=== PATIENT | female | born 1980 | race Caucasian/White ===

== ENCOUNTER 2023-01-17 06:38 | Outpatient (OUT) | payer BC, SELFPAY ==
--- NOTE | 2023-01-17 | PCN_ITS ---
CARDIAC STRESS TEST Requesting Physician:? Procedure Date:? 01/17/2023 This was a treadmill stress test with myocardial perfusion imaging performed at the [facility] on 01/17/2023. Informed consent was obtained.? The patient was attached to electrographic monitoring.? An intravenous line was secured.? The patient exercised according to the Jose F protocol for 6 minutes and 30 seconds, and reached stage 2 of the protocol and achieved 7 METS.? Resting heart rate was 75 BPM with resting blood pressure of 118/82.? Peak heart rate was 153 BPM and peak blood pressure was 140/86.? The heart rate represented 85% of maximum predicted heart rate.? Exercise test was stopped due to dyspnea.? Resting ECG showed normal sinus rhythm.? ECG during treadmill exercise showed sinus tachycardia with no ischemic ST changes.? ECG at the end of the recovery period showed evidence of normal sinus rhythm without ischemic ST changes. SUMMARY OF FINDINGS:? 1.? Negative treadmill exercise stress test for exercise induced ischemic ECG changes.? 2.? Normal resting blood pressure with appropriate response to exercise. 3.? 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 4.? Myocardial perfusion images will be reported separately. CHRISTOPHERD
--- NOTE | 2023-01-17 06:20 | NM_ITS ---
Patient: KAILA OTOOLE Exam Date: 01/17/2023 : 1980 Gender:F Ordering : Vishal Zarate Admission #: [id number] Family : DR. LEON WILSON . Order #: [id number] CLICK HERE TO VIEW EXAM RADIOLOGY REPORT PROCEDURE: NM STUART PERF SPECT REST STR COMPARISON: None. INDICATIONS: Shortness of breath TECHNIQUE: Exam Description: Stress/Rest one day protocol gated SPECT Rest Imagin.3 mCi Tc-99m Cardiolite IV on 01/17/2023 Stress Imaging 30.5 mCi Tc-99m Cardiolite IV on 01/17/2023 Exercise Protocol: Jose F Heart Rate (bpm): Rest: 75 Max: 153 PMHR: 85 Blood Pressure: Rest: 118/82 Max: 140/86 Symptoms: Rest and peak stress ECG findings were pending and the exercise portion of the study was pending per attending physician Dr. GREY . For more details please see separate cardiac stress test report. FINDINGS: QUALITY OF STUDY: Excellent. PERFUSION DEFECT: LOCATION: Basal anterior. Mid-anterior. SIZE: Small (1-2 segments). SEVERITY: Mild. TYPE: Persistent. WALL MOTION: Normal. LV SIZE: Normal. 76 mL. TID / TCD: None; 0.8 LVEF: Normal. Calculated EF 72%. SUMMARY: Myocardial perfusion imaging study has ABNORMAL findings. CONCLUSION: 1. No acute or reversible ischemia. 2. Anterior wall mild anterior soft tissue attenuation artifact versus fixed ischemia. Artifact from anterior soft tissue is suspected. 3. Normal wall motion, left ventricle volume, and ejection fraction. Dictated by: Gus Michaud M.D. on 01/18/2023 at 11:47 Approved by: Gus Michaud M.D. on 01/18/2023 at 11:52
== END 2023-01-17 06:39 ==
LOC: NM 06:38
PROVIDERS: PCP Family Medicine; Visit Provider Internal Medicine Cardiovascular Disease
DX: R06.02 Shortness of breath (principal)
CPT/HCPCS: 78452; 93017; A9500

== ENCOUNTER 2023-01-18 16:02 | Outpatient (OUT) | payer BC, SELFPAY ==
[2023-01-18 13:14] LABS: Hemoglobin 13.3 g/dL (12.0-16.0)
--- NOTE | 2023-01-18 14:32 | RT_ITS ---
The [facility] Test Date: 2023-01-18 Pat Name: Jeanette Vasquez Department: Room: - Gender: Female Cadence Specialists: Leno Mercedes RRT : 1980 Requested By: Slick Valdez Order Number: [id number] Reading MD: Slick Valdez Interpretive Statements Pulmonary function testing was completed according to ATS criteria. Findings were considered accurate and reproducible. No bronchodilator was administered due to normal spirometric values. No prior studies available for comparison. Spirometry: -FEV1/FVC: Normal @ 90% -FEV1: Normal @ 115% -FVC: Normal @ 105% Lung volumes by plethysmography: -RV: Normal @ 113% -TLC: Normal @ 112% Diffusion capacity: -DLCO: Normal @ 110% when corrected for Hb 13.3g/dL Flow-volume loop: -Normal shape Impressions: -Normal PFT. Clinical correlation required. Electronically Signed On 01-19-2023 10:45:49 EDT by Slick Valdez
== END 2023-01-18 16:03 ==
LOC: CARD 16:03
PROVIDERS: PCP Family Medicine; Visit Provider Internal Medicine
DX: R06.02 Shortness of breath (principal)
CPT/HCPCS: 36415; 83036; 85018; 94010; 94726; 94729

== ENCOUNTER 2023-02-23 20:01 | Outpatient (OUT) | payer BC, SELFPAY | END 2023-02-23 20:02 | disposition home or self-care (01) | LOC: SLEEP 20:02 | PROVIDERS: PCP Internal Medicine; Visit Provider Internal Medicine | DX: G47.33 Obstructive sleep apnea (adult) (pediatric) (principal); G47.11 Idiopathic hypersomnia with long sleep time; G47.61 Periodic limb movement disorder | CPT/HCPCS: 95811 ==

== ENCOUNTER 2023-10-25 20:12 | Outpatient (REF) | payer BC, SELFPAY ==
[2023-10-28 14:10] LABS: Age Gdln ACOG Testing Note (.); HPV Aptima Negative (Negative); IGP, Aptima HPV, rfx 16/18,45 Note (.)
== END 2023-10-25 20:13 | disposition home or self-care (01) ==
LOC: LAB 20:12
PROVIDERS: Visit Provider Obstetrics & Gynecology
DX: Z01.419 Encounter for gynecological examination (general) (routine) without abnormal findings (principal)
CPT/HCPCS: 87624; G0145

== ENCOUNTER 2023-12-19 13:48 | Outpatient (OUT) | payer BC, SELFPAY ==
--- NOTE | 2023-12-19 13:54 | XR_ITS ---
The [address] [address] Patient Name: KAILA OTOOLE MRN: [id number] date: 1980 Sex: F Assigned Patient Location: [facility] Current Patient Location: LAB Accession/Order Number: [id number] Exam Date: 12/19/2023 14:03 Report Date: 12/20/2023 06:50 At the request of: YE RODRIGUEZ Procedure: XR lumbar spine min 4V EXAMINATION: XR lumbar spine min 4V HISTORY: Low Back Pain With Sciatica M54.40 COMPARISON: No relevant comparison available. FINDINGS: BONES: Moderate degenerative facet arthropathy on the right at L5-S1. Normal height and alignment of vertebral bodies; no fracture spondylolisthesis. DISC SPACES: Slight narrowing L5-S1. PARASPINOUS: Negative. No paraspinous abnormality is seen. OTHER: Negative. XR/XR lumbar spine min 4V IMPRESSION: 1. L5-S1 mild degenerative disc disease and moderate degenerative facet arthropathy, right greater than left. Electronically authenticated by: TAMIE GUILLERMO Date: 12/20/2023 06:50
== END 2023-12-19 13:49 | disposition home or self-care (01) ==
LOC: RAD 13:49
PROVIDERS: PCP Family Medicine; Visit Provider Nurse Practitioner
DX: M54.40 Lumbago with sciatica, unspecified side (principal); M51.36 Other intervertebral disc degeneration, lumbar region
CPT/HCPCS: 72110

== ENCOUNTER 2023-12-20 06:47 | Outpatient (OUT) | payer BC, SELFPAY ==
--- OUTSIDE RECORDS SUMMARY | 2023-12-20 06:51 | XMS_ITS | CCD ---
Author Organization [facility] Care Team Providers Care Type Copyist Name Role Phone MERT LAMA Referring Unavailable PAMELLA BRENNAN Attending Unavailable MIKAPAMELLA Joyner Surgeon Unavailable MIKAPAMELLA Joyner Admitting Unavailable IN Procedure Practitioner Unavailab MERT Caban Primary Care Unavailable MERT LAMA Referring Unavailable NELLY ORNELAS Admitting Unavailable NELLY ORNELAS Attending Unavailable MERT LAMA Primary Care Unavailable MERT LAMA Primary Care Unavailable JONNY FOWLER Admitting Unavailable JONNY FOWLER Attending Unavailable MERT LAMA Referring Unavailable LAMA, MERT Referring Unavailable MERT LAMA Primary Care Unavailable VISHAL ROGERS Admitting Unavailable VISHAL ROGERS Attending Unavailable MERT LAMA Primary Care Physician Mert Lama MD Unavailable DANIEL, DR MERT Forrest Primary Care Unavailable DANIEL, DR MERT Forrest Consulting Unavailable DANIEL, DR MERT Forrest Attending Unavailable LAMA, DR MERT Forrest Admitting Unavailable BETTY MORALES Consulting Unavailable DANIEL, DR MERT Forrest Primary Care Unavailable LAMA, DR MERT Forrest Attending Unavailable DANIEL, DR MERT Forrest Admitting Unavailable LAMA, DR MERT Forrest Consulting Unavailable JOHNSON PARK Admitting Unavailable DANIEL, DR MERT Forrest Primary Care Unavailable ELENA GUAN Consulting Unavailable JOHNSON PARK Attending Unavailable PAL WETZEL Consulting Unavailable NILL, DR CAN Attending Unavailable NILL, DR CAN Admitting Unavailable DANIEL, DR MERT Forrest Primary Care Unavailable NILL, DR CAN Consulting Unavailable AGMEHRDADOSILEON Baez Consulting Unavailable JAMILA PINEDO Consulting Unavailable DANIEL, DR MERT Forrest Admitting Unavailable DANIEL, DR MERT Forrest Primary Care Unavailable DANIEL, DR MERT Forrest Attending Unavailable LAMA, DR MERT Forrest Admitting Unavailable DANIEL, DR MERT Forrest Primary Care Unavailable DANIEL, DR MERT Forrest Consulting Unavailable DANIEL, DR MERT Forrest Attending Unavailable ELENA GUAN Consulting Unavailable LAMA, DR MERT Forrest Primary Care Unavailable HAY, DR RUVALCABA Attending Unavailable HAY, DR RUVALCABA Admitting Unavailable BROWN, LEEANNE Consulting Unavailable HAY, DR RUVALCABA Attending Unavailable HAY, DR RUVALCABA Admitting Unavailable LAMA, DR MERT Forrest Primary Care Unavailable HAY, DR RUVALCABA Consulting Unavailable LAMA, DR MERT Forrest Admitting Unavailable LAMA, DR MERT Forrest Primary Care Unavailable LAMA, DR MERT Forrest Consulting Unavailable LAMA, DR MERT Forrest Attending Unavailable ZIEBER, DR TAMIE Felipe Consulting Unavailable JENNIFER, WM Admitting Unavailable LAMA, DR MERT Forrest Primary Care Unavailable JENNIFER, WM Consulting Unavailable JENNIFER, WM Attending Unavailable JENNIFER, WM Admitting Unavailable LAMA, DR MERT Forrest Primary Care Unavailable JENNIFER, WM Consulting Unavailable JENNIFER, WM Attending Unavailable JENNIFER, WM Attending Unavailable JENNIFER, WM Consulting Unavailable LAMA, DR MERT Forrest Primary Care Unavailable JENNIFER, WM Admitting Unavailable MEE, ANU Attending Unavailable MEE, ANU Admitting Unavailable LAMA, DR MERT Forrest Primary Care Unavailable MEE, ANU Consulting Unavailable JENNIFER, WM Admitting Unavailable JENNIFER, WM Consulting Unavailable LAMA, DR MERT Forrest Primary Care Unavailable JENNIFER, WM Attending Unavailable LAMA, DR MERT Forrest Primary Care Unavailable HEMEYER, DR NEGRETE Attending Unavailable HEMEYER, DR NEGRETE Admitting Unavailable HEMEYER, DR NEGRETE Consulting Unavailable POULTON, GLENROY Referring Unavailable POULTON, GLENROY Referring Unavailable POULTON, GLENROY Referring Unavailable POULTON, GLENROY Attending Unavailable POULTON, GLENROY Referring Unavailable POULTON, GLENROY Referring Unavailable POULTON, GLENROY Referring Unavailable SYJANELL Attending Unavailable MAURI CHUN Attending Unavailable POULTON, GLENROY Referring Unavailable LAMA, MERT Forrest Attending Unavailable IRMA HALEY Attending Unavailable IRMA HALEY Attending Unavailable ADIN LIM Attending Unavailable VISHAL ROGERS Referring Unavailable VISHAL ROGERS Attending Unavailable VISHAL ROGERS Referring Unavailable Medications Current Medications Medication Drug Class(es) Dates Sig (Normalized) Sig (Original) iv contrast (will be provided with radiology test) (2 sources) Start: 08-16-2022 End: 08-17-2022 iv contrast (will be provided with radiology test) MRI CSP Inject, intravenously, once for 1 dose. No IV access, insert saline lock prior to the beginning of sedation, infusion, injection of imaging exam. Discontinue saline lock post exam. If Pt. has a central line or IVAD, may access for administration according to line specific nursing protocol. Once exam is complete flush line and de-access according to line specific nursing protocol in the MR contrast administration guidelines link. 1 Each 0 08/16/2022 08/17/2022 Active Start: 07-07-2022 End: 07-08-2022 inject 1 dose intravenously once iv contrast (will be provided with radiology test) MRI Brain Inject, intravenously, once for 1 dose.No IV access, insert saline lock prior to beginning of sedation, infusion, injection of imaging exam.Discontinue saline lock post exam. If Pt. has a central line or IVAD, may access for administration according to line specific nursing protocol.Once exam is complete flush line and de-access according to line specific nursing protocol in the MR contrast administration guidelines link 1 Each 0 07/07/2022 07/08/2022 Active Comment on above: MRI Brain Inject, in travenously, once for 1 dose.No IV access, insert saline lock prior to beginning of sedation, infusion, injection of imaging exam.Discontinue saline lock post exam. If Pt. has a central line or IVAD, may access for administration according to line specific nursing protocol.Once exam is complete flush line and de-access according to line specific nursing protocol in the MR contrast administration guidelines link MRI CSP Inject, intr avenously, once for 1 dose. No IV access, insert saline lock prior to the beginning of sedation, infusion, injection of imaging exam. Discontinue saline lock post exam. If Pt. has a central line or IVAD, may access for administration according to line specific nursing protocol. Once exam is complete flush line and de-access according to line specific nursing protocol in the MR contrast administration guidelines link. meloxicam 7.5 mg oral tablet (1 source) Nonsteroidal Anti-inflammatory Drug Start: 10-10-19 21 take 1 mg by mouth once daily meloxicam 7.5 mg oral tablet mg tab(s), Oral, Daily, Refills(s) 0 Start Date: 10/09/20 Status: Ordered metoprolol tartrate 25 mg oral tablet (9 sources) beta-Adrenergic Norbert Start: 11-27-19 22 take 2 tablets by mouth twice daily Metoprolol tartrate 25 mg Tab 50 mg = 2 tab(s), Oral, BID, Refills(s) 0 Start Date: 11/26/21 Status: Ordered End: 08-24-2022 take 1 tablet by mouth twice daily metoprolol tartrate, short acting, (LOPRESSOR) 50 mg tablet Take 50 mg by mouth twice daily. 0 08/24/2022 Discontinued Comment on above: metoprolol tartrate 50 mg tablet Take 50 mg by mouth twice daily. perflutren lipid microspheres 1.3 mL in NaCl (PF) 0.9% 10 mL injection (DEFINITY) (10 sources) Start: 07-07-20 End: 10-06-19 perflutren lipid microspheres 1.3 mL in NaCl (PF) 0.9% 10 mL injection (DEFINITY) QUEtiapine 25 mg oral tablet (1 source) Atypical Antipsychotic Start: 10-10-19 take 1 tablet by mouth at bedtime quetiapine 25 mg Tab 25 mg = 1 tab(s), Oral, Bedtime, Refills(s) 0 Start Date: 10/09/20 Status: Ordered 125 ml sodium chloride 9 mg/ml prefilled syringe (10 sources) Start: 07-07-20 End: 10-06-19 sodium chloride 0.9 % (flush) 10 mL (BD POSIFLUSH) Completed/Discontinued Medications Medication Drug Class(es) Dates Sig (Normalized) Sig (Original) aspirin 325 mg oral tablet (3 sources) Platelet Aggregation Inhibitor, Nonsteroidal Anti-inflammatory Drug take 1 tablet by mouth once daily aspirin 325 mg tablet Take 325 mg by mouth once daily. 0 Active Comment on above: Take 325 mg by mouth once daily. cholecalciferol 0.025 mg oral tablet (3 sources) Vitamin D take 1 tablet by mouth once daily cholecalciferol (VITAMIN D) 1,000 unit tab tablet Take 1,000 Units by mouth once daily. 0 Active Comment on above: Take 1,000 Units by mouth once daily. 24 hr dilTIAZem hydrochloride 180 mg extended release oral capsule (3 sources) Calcium Channel Norbert Start: 08-24-2022 take 1 capsule by mouth once daily dilTIAZem CD (CARDIZEM CD) 180 mg 24 hr capsule Take 1 capsule by mouth once daily. 90 capsule 3 08/24/2022 Active Comment on above: Take 1 capsule by bhargavi acevedo once daily. Problems Active Problems Problem Classification Problem Date Documented Date Episodic/Chronic Blindness and vision defects (3 sources) Eye / vision finding; Translations: [Unspecified visual disturbance] Onset: 09-09-2022 Episodic Cardiac dysrhythmias (8 sources) Supraventricular tachycardia; Translations: [Supraventricular tachycardia] Onset: 11-14-2021 Chronic Conditions associated with dizziness or vertigo (13 sources) Dizziness; Translations: [Dizziness and giddiness] Onset: 03-22-2022 Episodic Conduction disorders (2 sources) Encounter for adjustment and management of automatic implantable cardiac defibrillator; Translations: [Encounter for adjustment and management of automatic implantable cardiac defibrillator] Onset: 12-15-2022 Chronic Deficiency and other anemia (1 source) Anemia 11-26-2021 Episodic Fluid and electrolyte disorders (1 source) Hypokalemia; Translations: [HYPOKALEMIA] Onset: 09-06-2022 Episodic Genitourinary symptoms and ill-defined conditions (1 source) Incontinence 11-04-2020 Chronic Headache; including migraine (3 sources) Migraine; Translations: [Migraine aura without headache ] 11-26-2021 Chronic Headache; including migraine (2 sources) Headache; Translations: [Headaches] Episodic Headache; including migraine (1 source) Headache; including migraine; Translations: [HEADACHE UNSPECIFIED] Onset: 03-24-2022 Malaise and fatigue (10 sources) Fatigue; Translations: [Chronic fatigue, unspecified] Onset: 04-14-2022 Chronic Nutritional deficiencies (5 sources) Vitamin D deficiency; Translations: [Vitamin D deficiency, unspecified] Onset: 04-21-2022 Chronic Osteoarthritis (1 source) Unspecified osteoarthritis, unspecified site; Translations: [UNSPECIFIED OSTEOARTHRITIS UNS SITE] Onset: 04-21-2022 Chronic Other aftercare (1 source) Other partner manager (current) drug therapy; Translations: [OTH NETWORK PROGRAM MANAGER CURRENT DRUG THERAPY] Onset: 09-06-2022 Episodic Other connective tissue disease (1 source) Fibromyalgia 11-26-2021 Episodic Other connective tissue disease (1 source) Foot pain 10-09-2020 Episodic Other connective tissue disease (1 source) Plantar fasciitis 10-09-2020 Episodic Other nervous system disorders (1 source) Disorder of autonomic nervous system 11-26-2021 Chronic Other nervous system disorders (2 sources) Skin sensation disturbance; Translations: [Unspecified disturbances of skin sensation] Episodic Other nervous system disorders (1 source) Unspecified disturbances of skin sensation; Translations: [Disturbance of skin sensation] Onset: 09-09-2022 Episodic Other non-traumatic joint disorders (1 source) Other specified arthritis, unspecified site; Translations: [OTHER SPECIFIED ARTHRITIS UNS SITE] Onset: 11-26-2021 Chronic Other non-traumatic joint disorders (1 source) Instability of joint of right ankle 10-09-2020 Episodic Other nutritional; endocrine; and metabolic disorders (6 sources) Body mass index 40+ - severely obese; Translations: [Body mass index (BMI) 40.0-44.9, adult] Onset: 12-09-2021 Chronic Other nutritional; endocrine; and metabolic disorders (1 source) Weight gain 10-09-2020 Episodic Other skin disorders (1 source) Loss of hair 10-09-2020 Episodic Residual codes; unclassified (4 sources) Obstructive sleep apnea syndrome; Translations: [Obstructive sleep apnea (adult) (pediatric)] Onset: 08-24-2022 Chronic Residual codes; unclassified (4 sources) Obstructive sleep apnea (adult) (pediatric); Translations: [OBSTRUCTIVE SLEEP APNEA] Onset: 06-14-2022 Chronic Residual codes; unclassified (1 source) Flushing 10-09-2020 Episodic Residual codes; unclassified (1 source) Sleep disorder 11-26-2021 Episodic Residual codes; unclassified (1 source) Acquired absence of both cervix and uterus; Translations: [ACQUIRED ABSENCE BOTH CERVIX AND UTERUS] Onset: 09-06-2022 Episodic Spondylosis; intervertebral disc disorders; other back problems (3 sources) Spondylosis, unspecified; Translations: [Other intervertebral disc degeneration, lumbosacral region] Onset: 11-23-2021 Chronic Spondylosis; intervertebral disc disorders; other back problems (6 sources) Chronic low back pain; Translations: [Neck pain] Onset: 11-23-2021 11-26-2021 Episodic Unclassified (4 sources) CONTACT W/AND (SUSP) EXPOS COVID-19; Translations: [CONTACT W/AND (SUSP) EXPOS COVID-19] Onset: 11-18-2021 Unclassified (1 source) PERSONAL HISTORY OF COVID-19; Translations: [PERSONAL HISTORY OF COVID-19] Onset: 03-24-2022 Unclassified (1 source) COUGH, UNSPECIFIED; Translations: [COUGH, UNSPECIFIED] Onset: 03-17-2022 Unclassified (3 sources) LOW BACK PAIN, UNSPECIFIED; Translations: [LOW BACK PAIN, UNSPECIFIED] Onset: 02-03-2022 Viral infection (4 sources) COVID-19; Translations: [COVID-19] Onset: 03-16-2022 Past or Other Problems Problem Classification Problem Date Documented Da te Episodic/Chronic Abdominal pain (1 source) Lower abdominal pain, unspecified; Translations: [LOWER ABDOMINAL PAIN UNSPECIFIED] Onset: 01-06-2022 Episodic Anal and rectal conditions (1 source) Other specified diseases of anus and rectum; Translations: [OTHER SPEC DISEASES ANUS AND RECTUM] Onset: 01-06-2022 Episodic Calculus of urinary tract (2 sources) History of calculus of kidney; Translations: [Personal history of urinary calculi] Onset: 01-06-2022 11-04-2020 Episodic Cardiac dysrhythmias (14 sources) Sinus tachycardia; Translations: [Palpitations] Onset: 07-07-2022 11-26-2021 Episodic Deficiency and other anemia (4 sources) Anemia, unspecified; Translations: [ANEMIA UNSPECIFIED] Onset: 11-25-2021 Episodic Gastrointestinal hemorrhage (8 sources) Melena; Translations: [Melena] Onset: 12-09-2021 Episodic Genitourinary symptoms and ill-defined conditions (4 sources) History of recurrent urinary tract infection; Translations: [Nocturia] Onset: 01-06-2022 11-04-2020 Episodic Other connective tissue disease (1 source) Fibromyalgia; Translations: [FIBROMYALGIA] Onset: 01-06-2022 Episodic Other nutritional; endocrine; and metabolic disorders (1 source) Abnormal weight gain; Translations: [ABNORMAL WEIGHT GAIN] Onset: 04-21-2022 Episodic Pleurisy; pneumothorax; pulmonary collapse (1 source) Atelectasis; Translations: [ATELECTASIS] Onset: 03-17-2022 Episodic Residual codes; unclassified (1 source) Family history of other endocrine, nutritional and metabolic diseases; Translations: [FAM HX OTH ENDOCRN NUTRIT METAB DZ] Onset: 04-21-2022 Episodic Residual codes; unclassified (1 source) Acquired absence of other specified parts of digestive tract; Translations: [ACQ ABSENCE OTH PART DIGESTV TRACT] Onset: 01-06-2022 Episodic Unclassified (1 source) CONTACT W/AND (SUSP) EXPOS COVID-19; Translations: [CONTACT W/AND (SUSP) EXPOS COVID-19] Onset: 07-29-2022 Unclassified (1 source) LOW BACK PAIN, UNSPECIFIED; Translations: [LOW BACK PAIN, UNSPECIFIED] Onset: 01-31-2022 Results Test Name Value Interpretation Reference Range Facility Consultation Noteon 02-15-20 Consultation Note [id number] .00CD:127 [facility] Consultation Noteon 02-05-20 Consultation Note [id number] .00CD:127 [facility] Comment on above: Other Comment: INCOM PLETE FAX.NDW [facility] 02-02-2023 Forms [id number] .00CD:127 [facility] Consultation Noteon 01-29-20 Consultation Note [id number]. 00CD:127 [facility] 36on 01-18-2023 36 Please call this patient and get her scheduled for a follow up in midway! Normal [facility] Cardiovascular Reporton 01-06 Cardiovascular Report [id number] .[id number]:127 [facility] Orders Onlyon 12-22-2022 Orders Only [id number] Bacilio Vasquez y N 1980 F Date Provider Department Center 12/22/2022 ANJEL LUDWIG [facility] No family history on file [facility] Telemedicineon 12-21-2022 Telemedicine [id number] Bacilio Vasquez y N 1980 F Date Provider Department Center 12/21/2022 VISHAL VERDUGO [facility] CARD [place] Count No family history on file Level of Service:31527 IN PHYS/QHP TELEPHONE EVALUATION 11-20 MIN Normal [facility] Office Visiton 12-15-2022 Follow-up visit [id number] Bacilio Vasquez 1980 F Date Provider Department Center 12/15/2022 1596-ADIN LIM CARD [facility] No family history on file Level of Service:28778 IN OFFICE/OUTPATIENT ESTABLISHED LOW MDM 20-29 MIN Normal [facility] 10-29-2022 Forms [id number] .00CD:127 Normal [facility] Ambulatory Visit Summaryon 0 10-26-2022 Ambulatory Visit Summary KAILA VASQUEZ :1980 Visit Date:10/26/2022 Ambulatory Visit Instructions Your Diagnosis BMI 40.0-44.9, adult Your Care Team Attending Physician - MERT LAMA MD Primary Care Physician - MERT LAMA MD This Is Your Medications List albuterol (Albuterol (Eqv-ProAir HFA) 90 mcg/inh inhalation aerosol) benzonatate (benzonatate 200 mg oral capsule) cholecalciferol (Vitamin D3 1000 intl units oral tablet) cyanocobalamin (cyanocobalamin 1000 mcg Tab) folic acid (folic acid 1 mg Tab) hydrOXYzine (hydrOXYzine pamoate 25 mg Cap) meloxicam (meloxicam 15 mg Tab) metoprolol (Metoprolol tartrate 50 mg Tab) quetiapine (quetiapine 25 mg Tab) sertraline (sertraline 50 mg Tab) Procedures Performed Cystourethroscopy with dilation of urethral stricture (11/04/2020), Abdominal hysterectomy, Cardiac radiofrequency ablation using ultrasound guidance, Cholecystectomy, Colonoscopy, Excision of osteochondroma, History of ankle surgery, Osteochondroma of bone, Other, Surgery, Total bilateral salpingectomy. Discharge Vitals Heart Rate (Peripheral) 76 Respiratory Rate 16 Blood Pressure 122/74 Height 165.10 cm Height 65 in Weight 116.2 kg Weight 255.64 lb BMI 42.63 Medications What How Much When Instructions Changed hydrOXYzine (hydrOXYzine pamoate 25 mg Cap) 1 Capsules By Mouth 4 times a day as needed for for anxiety Pickup at [facility] #[id number] Unchanged albuterol (Albuterol (Eqv-ProAir HFA) 90 mcg/ inh inhalation aerosol) 2 Puffs Inhalation Every 4 hours as needed for Shortness of breath or wheezing Unchanged benzonatate (benzonatate 200 mg oral capsule) 1 Capsules By Mouth Every 8 hours Unchanged cholecalciferol (Vitamin D3 1000 intl units oral tablet) 1 Tablets By Mouth Every day Unchanged cyanocobalamin (cyanocobalamin 1000 mcg Tab) 1 Tablets By Mouth Every day Unchanged folic acid (folic acid 1 mg Tab) 1 Tablets By Mouth Every day Unchanged meloxicam (meloxicam 15 mg Tab) 1 Tablets By Mouth Every day with food Unchanged metoprolol (Metoprolol tartrate 50 mg Tab) 1 Tablets By Mouth 2 times a day Unchanged quetiapine (quetiapine 25 mg Tab) 1 Tablets By Mouth At bedtime Unchanged sertraline (sertraline 50 mg Tab) 1 Tablets By Mouth Every day Pharmacy Information [facility]/pharmacy #[id number]: [address], [place] [id number] [phone] Allergies No Known Allergies Problems Ongoing - Any problem that you are currently receiving treatment for. Anemia Anxiety Autonomic dysfunction BMI 40.0-44.9, adult Chronic low back pain COVID Disorder of autonomic nervous system Dizzy spells Fibromyalgia Foot pain, bilateral Hair loss Hematochezia History of kidney stones History of recurrent UTIs Hot flashes Migraines Mixed incontinence urge and stress Nocturia Paroxysmal tachycardia Plantar fasciitis, left Rectal bleeding Right ankle instability Sinus tachycardia Sleep disorder Weight gain Historical - Any problem that you are no longer receiving treatment for. COVID-19 Fibromyalgia Headache Migraine Other Sinus tachycardia Sleep disorder Thyroid disease Normal [facility] Family Medicine Office/Clini c Noteon 10-26-2022 Family Medicine Office/Clinic Note Chief Complaint still having issues with dizziness and tachycardia HPI Staff Kaila is a 41 year old female who presents today for a follow up, still having tachycardia but still with Dr Avila [facility] and still having the dizziness says she's not gotten any answers from [facility] neurology says she's been referred to diff drs up there and it's a process getting in Recent MRI done at [facility] covid UTD Flu: UTD per patient required by her work [id number] History of Present Illness Since March of last year, severe vertigo, has seen a number of doctors and nothing seems to help. Still working with dr [place], at times heart rate up to 160-170, flushed sweating and sees the heart beating. severe anxiety and will freak her out and gets panic attacks. EP studies done in the past and had to be shocked because atrial fib during the study. Has gotten worse sincd having covid. She has a positive ESEQUIEL. CRP AND SED RATES have been normal. MRI RECENT and normal. Tilt table in past and nothing really showed up. Review of Systems PHQ Score Initial Depression Screen Score: 0 see [facility] Physical Exam Vitals & Measurements HR: 76(Peripheral) RR: 16 BP: 122/74 SpO2: 93% HT: 65 in HT: 165.10 cm WT: 116.2 kg WT: 255.64 lb BMI: 42.63 General: alert, no acute distress bp 122/70 laying, 120/70 sitting, 120/64 laying Skin: warm, dry Head: no trauma, normocephalic Neck: Trachea midline, no adenopathy, no tenderness Eye: normal conjunctiva, sclera clear ENMT: TM's clear, oral mucosa moist, no pharyngeal erythema or exudate Cardiovascular: regular rate and rhythm, normal peripheral perfusion Respiratory: Lungs CTA, respirations non labored Chest wall: no deformity. Gastrointestinal: soft, non distended, no tenderness, no guarding. Back: No tenderness, Normal ROM, Normal alignment. Extremities: no deformity, no trauma Neurological: oriented x 4, LOC appropriate for age, CN II-XII intact, motor strength equal & normal bilaterally, sensation equal & normal bilaterally, speech normal Psychiatric: cooperative, affect appropriate for age, normal judgement, normal psychiatric thoughts. Assessment/Plan Suspect she is having panic atacks. Explained this to the patient and apple it is connected to the autonomic system. she has had releive with valium and atntivan in the past but I did not like the addiction potenstial with these medicines. We will try a higher dose of the hydroxyzine and explained the risks and bernefits. Also, she will cont. with self relaxation techniques. The tachycardi seems controlle while exercisins. She will start again with walking and emeka into the cough to 5k peyman. Also, discussed ozempic for weight loss and she has no controindications. she will call with update in one month and if doing well we will try the ozempic. RTO prn explained. 1. Autonomic dysfunction (G90.9: Disorder of the autonomic nervous system, unspecified) 2. Anxiety (F41.9: Anxiety disorder, unspecified) 3. BMI 40.0-44.9, adult (Z68.41: Body mass index [BMI] 40.0-44.9, adult) Orders: hydrOXYzine, 25 mg = 1 cap(s), Oral, QID, PRN for anxiety, # 40 cap(s), Refills(s) 0, Pharmacy: [facility]/pharmacy #[id number], 165.1, cm, 10/26/22 16:06:00 EDT, Height/Length Dosing, 116.2, kg, 10/26/22 16:06:00 EDT, Weight Dosing Follow-up No qualifying data available Problem List/Past Medical History Ongoing Anemia Anxiety Autonomic dysfunction BMI 40.0-44.9, adult Disorder of autonomic nervous system Dizzy spells Fibromyalgia History of kidney stones Hot flashes Migraines Mixed incontinence urge and stress Paroxysmal tachycardia Sinus tachycardia Sleep disorder Weight gain Historical Chronic low back pain COVID COVID-19 Fibromyalgia Foot pain, bilateral Hair loss Headache Hematochezia History of recurrent UTIs Migraine Nocturia Other Plantar fasciitis, left Rectal bleeding Right ankle instability Sinus tachycardia Sleep disorder Thyroid disease Procedure/Surgical History Cystourethroscopy with dilation of urethral stricture (11/04/2020), Abdominal hysterectomy, Cardiac radiofrequency ablation using ultrasound guidance, Cholecystectomy, Colonoscopy, Excision of osteochondroma, History of ankle surgery, Osteochondroma of bone, Other, Surgery, Total bilateral salpingectomy. Medications Albuterol (Eqv-ProAir HFA) 90 mcg/inh inhalation aerosol, 2 puff(s), Inhalation, q4hr, PRN, Not taking benzonatate 200 mg oral capsule, 200 mg= 1 cap(s), Oral, q8hr, Not taking cyanocobalamin 1000 mcg Tab, 1000 mcg= 1 tab(s), Oral, Daily, Not taking folic acid 1 mg Tab, 1 mg= 1 tab(s), Oral, Daily, Not taking hydrOXYzine pamoate 25 mg Cap, 25 mg= 1 cap(s), Oral, QID, PRN meloxicam 15 mg Tab, 15 mg= 1 tab(s), Oral, Daily, Not taking Metoprolol tartrate 50 mg Tab, 50 mg= 1 tab(s), Oral, BID quetiapine 25 mg Tab, 25 mg= 1 tab(s), Oral, Bedtime sertraline 50 mg Tab, 50 mg= 1 tab(s), Oral, Daily, Not taking Vitamin D3 1000 intl un (more content not included)... Normal [facility] Comment on above: Result Comment: Elec tronically Signed By: DANIEL PIZARRO, MERT Forrest\.br\Date and Time Signed: 10/26/22 17:03 EDT MRI BRAIN WO/W IVCONon 10-14 MRI BRAIN WO/W IVCON * * *Final Report* * * DATE OF EXAM: Oct 14 2022 5:21PM QBM 0295 - MRI BRAIN WO/W IVCON / PROCEDURE REASON: multiple diagnoses * * * * Physician Interpretation * * * * EXAMINATION: MRI BRAIN WO/W IVCON, MRI CERVICAL SPINE WO/W IVCON HISTORY: Dizziness. Vision changes. TECHNIQUE: Demyelinating disease brain MRI protocol without and with contrast including diffusion and gradient echo images. Routine MRI cervical spine without and with intravenous contrast. MQ: MRBWOW_2 Contrast: 20 mL Dotarem IV COMPARISON: None. RESULT: Acute Change: There is no evidence of restricted diffusion to suggest an acute infarct. Hemorrhage: No evidence of prior parenchymal hemorrhage on the gradient echo images. Mass Lesion/ Mass Effect: No evidence of an intracranial mass or extra-axial fluid collection. No abnormal parenchymal or leptomeningeal enhancement is noted following contrast administration. No significant mass effect. Chronic Change: The white matter is within normal limits of signal intensity for age. Parenchyma: No significant volume loss for age. The brain parenchyma is otherwise within normal limits of signal intensity and morphology. Ventricles: Normal caliber and morphology. Skull Base: Hypothalamic and pituitary region are grossly normal. Craniocervical junction is normal. No significant marrow replacement process. Vasculature: Major intracranial arterial structures, and dural venous sinuses show typical flow void, suggesting patency by spin echo criteria. Other: The visualized paranasal sinuses and mastoid air cells are clear. The orbits and extracranial soft tissues are unremarkable. MRI CERVICAL SPINE RESULT: Counting reference: Craniocervical junction. Anatomic Variants: None. Localizer images: No additional findings. Alignment: Alignment is anatomic. Craniocervical junction: Craniocervical junction is normal. Cord: The visualized cord is within normal limits of signal intensity and morphology. No mass or pathologic intradural enhancement. Bone marrow signal/fracture: No evidence of pathologic marrow infiltration. No evidence of prior fracture. Cervical soft tissues: The paraspinal soft tissues are within normal limits. C2-C3: Canal and foramina are patent. C3-C4: Canal and foramina are patent. C4-C5: Disc/osteophyte complex bulge abutting cord ventrally without cord compression. Mild right foraminal stenosis. Left neural foramen is patent. C5-C6: Canal and foramina are patent. C6-C7: Canal and foramina are patent. C7-T1: Canal and foramina are patent. IMPRESSION: Unremarkable contrast-enhanced MRI brain. No acute intracranial findings. No mass or pathologic intracranial enhancement. Mild degenerative changes of the cervical spine as discussed level by level in the body of the report. No severe canal or severe foraminal stenosis. Normal morphology and signal intensity of the visualized spinal cord. No mass or pathologic intradural enhancement. [facility] Transcribe Date/Time: Oct 14 2022 8:43P Dictated by : UNIQUE ANDERSON MD This examination was interpreted and the report reviewed and electronically signed by: UNIQUE ANDERSON MD on Oct 14 2022 8:51PM EST [id number] Normal [facility] MRI CERVICAL SPINE WO/W IVCO Non 10-14-2022 MRI CERVICAL SPINE WO/W IVCON * * *Final Report* * * DATE OF EXAM: Oct 14 2022 5:21PM QBM 0298 - MRI CERVICAL SPINE WO/W IVCON / PROCEDURE REASON: multiple diagnoses * * * * Physician Interpretation * * * * EXAMINATION: MRI BRAIN WO/W IVCON, MRI CERVICAL SPINE WO/W IVCON HISTORY: Dizziness. Vision changes. TECHNIQUE: Demyelinating disease brain MRI protocol without and with contrast including diffusion and gradient echo images. Routine MRI cervical spine without and with intravenous contrast. MQ: MRBWOW_2 Contrast: 20 mL Dotarem IV COMPARISON: None. RESULT: Acute Change: There is no evidence of restricted diffusion to suggest an acute infarct. Hemorrhage: No evidence of prior parenchymal hemorrhage on the gradient echo images. Mass Lesion/ Mass Effect: No evidence of an intracranial mass or extra-axial fluid collection. No abnormal parenchymal or leptomeningeal enhancement is noted following contrast administration. No significant mass effect. Chronic Change: The white matter is within normal limits of signal intensity for age. Parenchyma: No significant volume loss for age. The brain parenchyma is otherwise within normal limits of signal intensity and morphology. Ventricles: Normal caliber and morphology. Skull Base: Hypothalamic and pituitary region are grossly normal. Craniocervical junction is normal. No significant marrow replacement process. Vasculature: Major intracranial arterial structures, and dural venous sinuses show typical flow void, suggesting patency by spin echo criteria. Other: The visualized paranasal sinuses and mastoid air cells are clear. The orbits and extracranial soft tissues are unremarkable. MRI CERVICAL SPINE RESULT: Counting reference: Craniocervical junction. Anatomic Variants: None. Localizer images: No additional findings. Alignment: Alignment is anatomic. Craniocervical junction: Craniocervical junction is normal. Cord: The visualized cord is within normal limits of signal intensity and morphology. No mass or pathologic intradural enhancement. Bone marrow signal/fracture: No evidence of pathologic marrow infiltration. No evidence of prior fracture. Cervical soft tissues: The paraspinal soft tissues are within normal limits. C2-C3: Canal and foramina are patent. C3-C4: Canal and foramina are patent. C4-C5: Disc/osteophyte complex bulge abutting cord ventrally without cord compression. Mild right foraminal stenosis. Left neural foramen is patent. C5-C6: Canal and foramina are patent. C6-C7: Canal and foramina are patent. C7-T1: Canal and foramina are patent. IMPRESSION: Unremarkable contrast-enhanced MRI brain. No acute intracranial findings. No mass or pathologic intracranial enhancement. Mild degenerative changes of the cervical spine as discussed level by level in the body of the report. No severe canal or severe foraminal stenosis. Normal morphology and signal intensity of the visualized spinal cord. No mass or pathologic intradural enhancement. 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 Christos Fallon Basophils/100 WBC (Bld) 0.5 % Normal 0.2-2.0 [facility] Comment on above: Performed By: #### C MP, TSH, HSTROPN #### [facility] [address] [place] [address] Dr. Christos Fallon EO # 0.2 103/ul Normal 0.0-0.7 [facility] Comment on above: Performed By: #### C MP, TSH, HSTROPN #### [facility] [address] [place] [address] Dr. Christos Fallon Eosinophils/100 WBC (Bld) 2.3 % Normal 0.9-7.0 [facility] Comment on above: Performed By: #### C MP, TSH, HSTROPN #### [facility] [address] [place] [address] Dr. Christos Fallon Erythrocyte distribution width (RBC) [Ratio] 13.0 % Normal 11.0-15.0 [facility] Comment on above: Performed By: #### C MP, TSH, HSTROPN #### [facility] [address] [place] [address] Dr. Christos Fallon Hematocrit (Bld) [Volume fraction] 43.0 % Normal 36.0-48.0 [facility] Comment on above: Performed By: #### C MP, TSH, HSTROPN #### [facility] [address] [place] [address] Dr. Christos Fallon Hemoglobin (Bld) [Mass/Vol] 13.9 g/dL Normal 12.0-16.0 [facility] Comment on above: Performed By: #### C MP, TSH, HSTROPN #### [facility] [address] [place] [address] Dr. Christos Fallon IG # 0.03 10e3/ul Normal 0.00-0.03 [facility] [place] Comment on above: Performed By: #### C MP, TSH, HSTROPN #### [facility] [address] [place] [address] Dr. Christos Fallon IG % 0.3 % Normal 0.0-0.5 [facility] [place] Comment on above: Performed By: #### C MP, TSH, HSTROPN #### [facility] [address] [place] [address] Dr. Christos Fallon LYMPH # 2.8 103/ul Normal 1.2-3.8 [facility] [place] Comment on above: Performed By: #### C MP, TSH, HSTROPN #### [facility] [address] [place] [address] Dr. Christos Fallon Lymphocytes/100 WBC (Bld) 29.6 % Normal 20.5-60.0 [facility] [place] Comment on above: Performed By: #### C MP, TSH, HSTROPN #### [facility] [address] [place] [address] Dr. Christos Fallon MANUAL DIFF REQ NO Normal [facility] Comment on above: Performed By: #### C MP, TSH, HSTROPN #### [facility] [address] [place] [address] Dr. Christos Fallon MCH (RBC) [Entitic mass] 34.8 pg Critically high 26.7-34.0 [facility] [place] Comment on above: Performed By: #### C MP, TSH, HSTROPN #### [facility] [address] [place] [address] Dr. Christos Fallon MCHC (RBC) [Mass/Vol] 32.3 g/dL Normal 29.9-35.2 [facility] [place] Comment on above: Performed By: #### C MP, TSH, HSTROPN #### [facility] [address] [place] [address] Dr. Christos Fallon MCV (RBC) [Entitic vol] 107.5 fL Critically high 81.0-99.0 [facility] Comment on above: Performed By: #### C MP, TSH, HSTROPN #### [facility] [address] [address] [address] Christos Fallon MONO # 0.7 103/ul Normal 0.3-0.8 [facility] Comment on above: Performed By: #### C MP, TSH, HSTROPN #### [facility] [address] [address] [address] Christos Fallon Monocytes/100 WBC (Bld) 7.7 % Normal 1.7-12.0 [facility] Comment on above: Performed By: #### C MP, TSH, HSTROPN #### [facility] [address] [place] [address] Dr. Christos Fallon NEUT # 5.7 103/ul Normal 1.4-6.5 [facility] Comment on above: Performed By: #### C MP, TSH, HSTROPN #### [facility] [address] [address] [address] Christos Fallon Neutrophils/100 WBC (Bld) 59.6 % Normal 43.0-75.0 [facility] Comment on above: Performed By: #### C MP, TSH, HSTROPN #### [facility] [address] [address] [address] Christos Fallon Platelet mean volume (Bld) [Entitic vol] 9.9 fL Normal 9.5-13.5 [facility] Comment on above: Performed By: #### C MP, TSH, HSTROPN #### [facility] [address] [address] [address] Christos Fallon PLT 309 103/ul Normal 150-450 [facility] Comment on above: Performed By: #### C MP, TSH, HSTROPN #### [facility] [address] [address] [address] Christos Fallon RBC 4.00 106/ul Critically low 4.20-5.40 [facility] Comment on above: Performed By: #### C MP, TSH, HSTROPN #### [facility] [address] [place] [address] Dr. Christos Fallon WBC 9.6 103/ul Normal 4.0-11.0 [facility] [place] Comment on above: Performed By: #### C MP, TSH, HSTROPN #### [facility] [address] [place] [address] Dr. Christos Fallon D-DIMERon 09-02-2022 D-DIMER 0.28 mg/L FEU Normal <=0.59 [facility] Comment on above: Performed By: #### C MP, TSH, HSTROPN #### [facility] [address] [place] [address] Dr. Christos Fallon D-DIMER COMMENTS SEE BELOW Normal [facility] Comment on above: Result Comment: Incr eases in D-Dimer concentration observed with thromboembolic events can be variable due to localization, size, and age of the thrombus. Therefore, a thromboembolic event cannot be diagnosed with certainty on the basis of the reference range. D-Dimers may also be elevated for a variety of disorders including: advanced age, , coronary disease, cancer, liver disease, infection, inflammation, hematoma, DIC, trauma, post-surgery, diabetes, thrombolytic or anticoagulant therapy, stress, and generalized hospitalization. Performed By: #### C MP, TSH, HSTROPN #### [facility] [address] [place] [address] Dr. Christos Fallon PROF 14(COMP METB)on 023 Albumin [Mass/Vol] 3.8 g/dL Normal 3.4-5.0 [facility] Comment on above: Performed By: #### C MP, TSH, HSTROPN #### [facility] [address] [place] [address] Dr. Christos Fallon Albumin/Globulin [Mass ratio] 1.2 {ratio} Normal [facility] [place] Comment on above: Performed By: #### C MP, TSH, HSTROPN #### [facility] [address] [place] [address] Dr. Christos Fallon ALP [Catalytic activity/Vol] 85 U/L Normal 46-116 [facility] [place] Comment on above: Performed By: #### C MP, TSH, HSTROPN #### [facility] [address] [address] [address] Christos Fallon ALT [Catalytic activity/Vol] 39 U/L Normal 14-59 [facility] Comment on above: Performed By: #### C MP, TSH, HSTROPN #### [facility] [address] [place] [address] Dr. Christos Fallon Anion gap [Moles/Vol] 16.3 mmol/L Normal Th [facility] Comment on above: Performed By: #### C MP, TSH, HSTROPN #### [facility] [address] [place] [address] Dr. Christos Fallon AST [Catalytic activity/Vol] 19 U/L Normal 15-37 [facility] Comment on above: Performed By: #### C MP, TSH, HSTROPN #### [facility] [address] [place] [address] Dr. Christos Fallon Bilirubin [Mass/Vol] 0.4 mg/dL Normal 0.2-1.0 [facility] [place] Comment on above: Performed By: #### C MP, TSH, HSTROPN #### [facility] [address] [place] [address] Dr. Christos Fallon Calcium [Mass/Vol] 9.2 mg/dL Normal 8.5-10.1 [facility] Comment on above: Performed By: #### C MP, TSH, HSTROPN #### [facility] [address] [place] [address] Dr. Christos Fallon Chloride [Moles/Vol] 101 mmol/L Normal 98-107 [facility] [place] Comment on above: Performed By: #### C MP, TSH, HSTROPN #### [facility] [address] [place] [address] Dr. Christos Fallon CO2 [Moles/Vol] 24.9 mmol/L Normal 21.0-32.0 [facility] Comment on above: Performed By: #### C MP, TSH, HSTROPN #### [facility] [address] [address] [address] Christos Fallon Creatinine [Mass/Vol] 0.83 mg/dL Normal 0.55-1.02 [facility] Comment on above: Performed By: #### C MP, TSH, HSTROPN #### [facility] [address] [place] [address] Dr. Christos Fallon EGFR-AF SRI LANKAN >60 Normal >=60 [facility] Comment on above: Performed By: #### C MP, TSH, HSTROPN #### [facility] [address] [place] [address] Dr. Christos Fallon EGFR-NON AF SRI LANKAN >60 Normal >=60 [facility] Comment on above: Performed By: #### C MP, TSH, HSTROPN #### [facility] [address] [place] [address] Dr. Christos Fallon Globulin (S) [Mass/Vol] 3.2 g/dL Normal [facility] Comment on above: Performed By: #### C MP, TSH, HSTROPN #### [facility] [address] [place] [address] Dr. Christos Fallon Glucose [Mass/Vol] 142 mg/dL Critically high 74-106 [facility] Comment on above: Performed By: #### C MP, TSH, HSTROPN #### [facility] [address] [place] [address] Dr. Christos Fallon Potassium [Moles/Vol] 3.2 mmol/L Critically low 3.5-5.1 [facility] Comment on above: Performed By: #### C MP, TSH, HSTROPN #### [facility] [address] [place] [address] Dr. Christos Fallon Protein [Mass/Vol] 7.0 g/dL Normal 6.4-8.2 [facility] Comment on above: Performed By: #### C MP, TSH, HSTROPN #### [facility] [address] [place] [address] Dr. Christos Fallon Sodium [Moles/Vol] 139 mmol/L Normal 136-145 [facility] Comment on above: Performed By: #### C MP, TSH, HSTROPN #### [facility] [address] [place] [address] Dr. Christos Fallon Urea nitrogen [Mass/Vol] 10.0 mg/dL Normal 7.0-18.0 [facility] Comment on above: Performed By: #### C MP, TSH, HSTROPN #### [facility] [address] [place] [address] Dr. Christos Fallon Urea nitrogen/Creatinine [Mass ratio] 12.0 mg/mg Normal [facility] Comment on above: Performed By: #### C MP, TSH, HSTROPN #### [facility] [address] [place] [address] Dr. Christos Fallon PROTIMEon 09-02-2022 INR Coag (PPP) [Relative time] {INR} Normal [facility] Comment on above: Performed By: #### C MP, TSH, HSTROPN #### [facility] [address] [place] [address] Dr. Christos Fallon INR GUIDELINES SEE BELOW Normal [facility] Comment on above: Result Comment: GUABLERTO RED INR: 2.0 - 3.0 CONDITIONS NOT LISTED BELOW 2.5 - 3.5 FOR PROSTHETIC HEART VALVE REPLACEMENT 2.5 - 3.5 RECURRENT THROMBOSIS Performed By: #### C MP, TSH, HSTROPN #### [facility] [address] [place] [address] Dr. Christos Fallon PT Coag (PPP) [Time] 9.7 s Normal 9.0-11.6 [facility] Comment on above: Performed By: #### C MP, TSH, HSTROPN #### [facility] [address] [place] [address] Dr. Christos Fallon PTTon 09-02-2022 aPTT Coag (Bld) [Time] 25.9 s Normal 22.3-36.2 [facility] Comment on above: Performed By: #### C MP, TSH, HSTROPN #### [facility] [address] [place], [place] [address] Dr. Christos Fallon TROPONIN, HIGH SENSITIVITYon 09-02-2022 HSTROP <4.0 Normal 4.0-51.3 [facility] Comment on above: Result Comment: CUT- OFF POINTS HAVE BEEN ESTABLISHED BASED ON THE FOURTH UNIVERSAL DEFINITIONS OF MYOCARDIAL INFARCTION. THE UPPER REFERENCE LIMIT (URL) OF TROPONIN, DEFINED THE 99TH PERCENTILE OF cTnI DISTRIBUTION IN A REFERENCE POPULATION, HAS BEEN CONFIRMED THE DECISION THRESHOLD FOR [place] DIAGNOSIS. Performed By: #### C MP, TSH, HSTROPN #### [facility] [address] [place], [place] [address] Dr. [facility]histos Fall[facility] TSH 0.813 uIU/mL Normal 0.358-3.740 [facility] Comment on above: Performed By: #### C MP, TSH, HSTROPN #### [facility] [address] [id number] Christos Fallon XR CHEST 1 Von 09-02-2022 XR CHEST 1 V EXAM: Chest x-ray HISTORY: Heart racing COMPARISON: 03/16/2022 TECHNIQUE: Single view of the chest. FINDINGS: Heart and Vascularity are unremarkable. Lungs are expanded and free of focal infiltrates. Loop recorder overlies the chest. EKG leads overlie the chest. Impression: No acute heart or lung disease identified. Electronically authenticated by: LEEANNE MON Date: 2022-09-02 15:09 Normal [facility] CNOVon 08-24-2022 CNOV Office Visit (BOOGIE ) KAILA VASQUEZ ([id number]) 1980 F Date Time Provider Department 08/24/22 2:00 PM JANELL SY During your visit today, we recorded the following information about you: Pulse Blood pressure Weight Height 88/minute 112/73 112.9 kg 1.626 m Janell Sy MD 08/24/2022 2:17 PM Signed [facility] [place] SECTION OF REGIONAL CARDIOLOGY OUTPATIENT VISIT DATE August 24, 2022 OUTPATIENT VISIT TYPE NEW PRIMARY CARE PHYSICIAN: To use this Smartlink, specify the provider ID whose address you want to display, e.g., .[email or web address][1 (where 1 is the provider ID). A written report of the findings and recommendations will be sent to the requesting provider via shared medical record or via [employer]. Patient is being seen at the request of the referring physician for Arrhythmia , Palpitations , and Shortness of breath HISTORY OF PRESENT ILLNESS: Ms. Vasquez is a 41 year old female who has a history of morbid obesity. Obstructive sleep apnea. Palpitations and SVT as well as PVCs. Also inappropriate sinus tachycardia. Anemia. Migraine headaches. Vitamin D deficiency. Fibromyalgia. Chronic neck and back pain. History of palpitations. COVID-19 infection in February 2023. [employer] loop recorder implant. Cardiac work-up includes: Echocardiogram on 05/19/2020 at [facility] showed normal ejection fraction. No valvular heart disease of any significance. A Holter monitor in 2019 showed basically some PVCs however negative otherwise. Electrophysiology study on 06/17/2021 showed a few runs of atrial tachycardia 2-3 beats. Ablation of SVT consistent with atrial tachycardia at that time. Since after her COVID-19 infection she had more episodes of tachycardia and palpitations. She mentioned that the palpitations could happen at any time. However mainly at noon time when she is sitting for lunch and in the evening when she is trying to go to sleep. She denies any chest pain of any kind however she has some dyspnea with activity. She has no orthopnea or PND. No syncope or near syncope. No lightheadedness or dizziness. No weight gain or loss. However she mentioned that she gained all her weight after hysterectomy about 6 years ago. IMPRESSION: Encounter Diagnosis ICD-10-CM 1. KANG (obstructive sleep apnea) G47.33 2. Dizziness R42 ECG COMPLETE 3. Palpitations R00.2 ECG COMPLETE 4. Obesity, morbid, BMI 40.0-49.9 ([facility]) E66.01 ECG COMPLETE 5. SVT (supraventricular tachycardia) ([facility]) I47.1 6. Chronic fatigue R53.82 7. Vitamin D deficiency E55.9 PLAN AND RECOMMENDATIONS: Tachycardia Mostly inappropriate sinus tachycardia due to patient deconditioning. She does not have any significant arrhythmias after her ablation for her SVT which happened in 2020. That was for atrial tachycardia. It seems that the beta-norbert is helping a little bit but not as much. Recently after COVID-19 infection her symptoms are worse. I would like to change her medicine to a calcium channel norbert and see if that helps better. We can increase her dose as needed. I reassured her about her findings and her symptoms. I do not think that there is anything serious going on at this point. Obstructive sleep apnea She mentioned to me that she needs more testing because her first the study did not show that she is in need for a CPAP or BiPAP machine yet. However they are looking into the issue. Obesity We had a long discussion about the need for more plant-based diet. Less animal-based products. No dairy products. All animal products are inflammatory and can increase the patient's symptoms of from fibromyalgia to fatigue syndrome to all of her issues. Might help actually also with her cardiac symptoms. REVIEW OF SYSTEMS: Chest pain No Shortness of breath Yes Bleeding No Dizziness Yes Syncope No Palpations Yes 10 systems reviewed and are negative with the exception of pertinent positives described in HPI PHYSICAL EXAMINATION: BP 112/73 (BP Site: Left Arm, BP Position: Sitting, BP Cuff Size: Large Adult) Pulse 88 Ht 162.6 cm (5' 4 ) Wt 112.9 kg (249 lb) SpO2 98% BMI 42.74 kg/m? HEENT: normocephalic, EOMI Heart: regular rhythm Lungs: clear to auscultation Abdomen: bowel sounds present Extremities: no edema Musculoskeletal: chest wall nontender Neurological: alert and oriented Psychiatric: appropriate and cooperative Skin: no rash, cellulitis or lesions appreciated CARDIOVASCULAR MEDICINE TESTING: I have personally reviewed ECG, laboratory results, outside medical records, echocardiogram report, and holter report PAST CARDIAC HISTORY: See above. PAST MEDICAL HISTORY Diagnosis Date Anemia Chronic back pain Chronic fatigue syndrome Chronic neck pain Fibromyalgia H/O cardiac radiofrequency ablation Migraines KANG (obstructive sleep apnea) Palpitatio (more content not included)... Normal [facility] ECG COMPLETEon 08-24-2022 ECG COMPLETE Ventricular Rate : 8 4 BPM Atrial Rate : 84 BPM P-R Interval : 166 ms QRS Duration : 92 ms Q-T Interval : 358 ms QTC Calculation(Bazett) : 423 ms Calculated P [place] : 60 degrees Calculated R [place] : 45 degrees Calculated T [place] : 45 degrees NORMAL SINUS RHYTHM INCREASED R/S RATIO IN V1, CONSIDER EARLY TRANSITION OR POSTERIOR INFARCT ABNORMAL ECG Confirmed by MEERA BOYD M.D. ([id number]) on 08/28/2022 3:03:10 PM NAME : KAILA VASQUEZ PID : [id number] : 1980 Gender : Female Race : ORD : [id number] Procedure Date : Aug 24 2022 13:56:02 Edit Date : Aug 28 2022 15:03:10 Diagnosis: NORMAL SINUS RHYTHM INCREASED R/S RATIO IN V1, CONSIDER EARLY TRANSITION OR POSTERIOR INFARCT ABNORMAL ECG Confirmed by MEERA BOYD M.D. ([id number]) on 08/28/2022 3:03:10 PM Test Reason : [facility] Over[facility] By : MEERA BOYD M.D. Edited By : MEERA BOYD M.D. Referred By : JANELL SY Acquired by : Jose browning [facility] CNTHERAPYon 08-12-2022 CNTHERAPY OT/PT/Speech Visit ([facility]) KAILA VASQUEZ Emily ([id number]) 1980 F Date Time Provider Department 08/12/22 2:45 PM CARMEN JOHNSON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 -centromere antibody is used as in aid in diagnosis of systemic sclerosis. Clinical correlation is required. Test Methodology: Multiplex flow immunoassay. Performed By: #### 2 9374-6, 73091-0, 05429-7, 80909-1, 71022-0, ANAIFR, 59233-8, 17519-0, 09992-7, 67576-3 ####[facility] LABCLIA [id number] [place] [address] [place] CENTROMERE AB QUAL Negative Normal Negative [facility] Comment on above: Order Comment: Bryan hernández Type: BLOOD SPECIMENOrdering Facility: [facility] Address: [address] [place] [address] Performed By: #### 2 9374-6, 31419-9, 58613-2, 92421-0, 15938-0, ANAIFR, 79277-1, 29259-0, 27338-9, 03680-4 ####[facility] LABCLIA [id number] [place] [address] [place] Chromatin Ab Qnon 07-07-2022 CHROMATIN AB QUAL Negative Normal Negative [facility] Comment on above: Order Comment: Speci men Type: BLOOD SPECIMENOrdering Facility: [facility] Address: [address] [place] [address] Performed By: #### 2 9374-6, 76665-7, 58399-8, 23219-6, 44723-8, ANAIFR, 29611-1, 00242-3, 92042-2, 21050-9 ####[facility] LABCLIA [id number] [place] [address] [place] Chromatin Ab SerPl-aCncon Chromatin Ab Qn <0.2 Normal <1.0 [facility] Comment on above: Order Comment: Speci men Type: BLOOD SPECIMENOrdering Facility: [facility] Address: [address] [place] [address] Result Comment: Test Methodology: Multiplex flow immunoassay. Performed By: #### 2 9374-6, 79741-9, 55998-8, 80405-2, 82295-9, ANAIFR, 91135-0, 90432-4, 66375-6, 58535-0 ####[facility] LABIA [id number] [place] [address] [place] KAMRAN Jo1 Ab Ser-aCncon 2021 Radha-1 extractable nuclear Ab Qn (S) <0.2 Normal <1.0 [facility] Comment on above: Order Comment: Speci men Type: BLOOD SPECIMENOrdering Facility: [facility] Address: [address] [place], [place] [address] Performed By: #### 2 9374-6, 75681-1, 59137-1, 07630-6, 55864-2, ANAIFR, 12096-9, 46443-8, 25912-3, 05290-4 ####[facility] LABCLIA [id number] [place] [address] [place] KAMRAN SENIOR RESEARCH PROJECT MANAGER Ab Ser-aCncon 2021 Ribonucleoprotein extractable nuclear Ab Qn (S) <0.2 Normal <1.0 [facility] Comment on above: Order Comment: Speci men Type: BLOOD SPECIMENOrdering Facility: [facility] Address: [address] [address] Performed By: #### 2 9374-6, 06485-6, 31715-7, 98397-9, 40852-2, ANAIFR, 43278-8, 73160-7, 87997-5, 98495-2 ####[facility] LABIA [id number] [place] [address] [place] KAMRAN SM IgG Ser-aCncon 2021 Osborne extractable nuclear IgG Qn (S) <0.2 Normal <1.0 [facility] Comment on above: Order Comment: Speci men Type: BLOOD SPECIMENOrdering Facility: [facility] Address: [address] [place] [address] Performed By: #### 2 9374-6, 95056-7, 00153-5, 77191-8, 85147-6, ANAIFR, 53417-4, 48789-4, 83042-3, 03031-2 ####[facility] LABIA [id number] [place] [address] [place] KAMRAN SS-A Ab Ser-aCncon 07-07 Sjogrens syndrome-A extractable nuclear Ab Qn (S) 0.3 AI Normal <1.0 [facility] Comment on above: Order Comment: Speci men Type: BLOOD SPECIMENOrdering Facility: [facility] Address: [address] [address] Result Comment: Test Methodology: Multiplex flow immunoassay. Performed By: #### 2 9374-6, 73163-5, 76402-3, 30999-3, 61454-6, ANAIFR, 38725-0, 34200-1, 90353-9, 08677-8 ####[facility] LABIA [id number] [place] [address] [place] KAMRAN SS-B Ab Ser-aCncon 07-07 Sjogrens syndrome-B extractable nuclear Ab Qn (S) <0.2 Normal <1.0 [facility] Comment on above: Order Comment: Bryan hernández Type: BLOOD SPECIMENOrdering Facility: [facility] Address: [address] [place] [address] Result Comment: Anti -SSB (anti-La) antibody is used as an aid in diagnosis of a variety of systemic autoimmune diseases, especially for Sjogren's syndrome and systemic lupus erythematosus. Clinical correlation is required. Test Methodology: Multiplex flow immunoassay. Performed By: #### 2 9374-6, 41019-5, 63442-2, 18285-4, 30045-6, ANAIFR, 60871-3, 62325-5, 18579-9, 77115-4 ####[facility] [id number] [address] [place] Radha-1 extractable nuclear Ab Qn (S)on 07-07-2022 RADHA 1 ANTIBODY QUAL Negative Normal Negative [facility] Comment on above: Order Comment: Speci betty Type: BLOOD SPECIMENOrdering Facility: [facility] Address: [address] [place] [address] Result Comment: Anti -RADHA-1 antibody is used as an aid in diagnosis of polymyositis and dermatomyositis especially with pulmonary involvement. A negative result cannot rule out polymyositis or dermatomyositis. Clinical correlation is required. Test Methodology: Multiplex flow immunoassay. Performed By: #### 2 9374-6, 68320-5, 65788-5, 95483-6, 71108-2, ANAIFR, 85374-6, 65861-3, 65941-0, 14221-9 ####[facility] LABIA [id number] [place] [address] [place] Ribonucleoprotein extractabl e nuclear Ab Qn (S)on 07-07-2022 ANTI-SENIOR RESEARCH PROJECT MANAGER QUAL Negative Normal Negative [facility] Comment on above: Order Comment: Speci men Type: BLOOD SPECIMENOrdering Facility: [facility] Address: [address] [place] [address] Performed By: #### 2 9374-6, 67284-4, 08329-0, 94432-9, 63465-6, ANAIFR, 90050-9, 51652-9, 91564-9, 05330-9 ####[facility] [id number] [place] [address] [place] RIBOSOMAL SENIOR RESEARCH PROJECT MANAGER QUAL Negative Normal Negative [facility] Comment on above: Order Comment: Davidi betty Type: BLOOD SPECIMENOrdering Facility: [facility] Address: [address] [place] [address] Result Comment: Anti -Ribosomal RNA (Ribosomal P) antibody is used as an aid in diagnosis of systemic autoimmune diseases especially systemic lupus erythematosus and mixed connective tissue disease. Cross-reactivity with Anti-osborne antibody is not uncommon. Clinical correlation is required. Test Methodology: Multiplex flow immunoassay. Performed By: #### 2 9374-6, 00239-3, 17886-6, 25858-6, 85892-7, ANAIFR, 82144-1, 87988-8, 97195-0, 30793-9 ####[facility] [id number] [place] [address] [place] SCL-70 extractable nuclear I gG IA Qn (S)on 07-07-2022 SCLERODERMA AB QUAL Negative Normal Negative [facility] Comment on above: Order Comment: Speci men Type: BLOOD SPECIMENOrdering Facility: [facility] Address: [address] [id number] Performed By: #### 2 9374-6, 75544-3, 16588-1, 98458-9, 34332-0, ANAIFR, 37487-8, 18742-3, 71389-5, 56698-9 ####[facility] LABCLIA [id number] [place] [address] [place] SCLERODERMA IGG AB <0.2 Normal <1.0 [facility] Comment on above: Order Comment: Speci men Type: BLOOD SPECIMENOrdering Facility: [facility] Address: [address] [place], [place] [address] Result Comment: Scl- 70/Scleroderma antibody test is used as an aid in diagnosis of systemic sclerosis especially the diffuse cutaneous form. A negative result cannot rule out systemic sclerosis. The final interpretation should consider clinical picture and other test results such as anti-centromere antibody. Test Methodology: Multiplex flow immunoassay. Performed By: #### 2 9374-6, 91030-2, 93718-8, 05544-4, 29284-1, ANAIFR, 07201-9, 19597-1, 10765-9, 33752-2 ####[facility] LABIA [id number] [place] [address] [place] Sjogrens syndrome-A extracta ble nuclear Ab Qn (S)on 07-07-2022 SSA ANTIBODY QUAL Negative Normal Negative [facility] Comment on above: Order Comment: Speci men Type: BLOOD SPECIMENOrdering Facility: [facility] Address: [address] [phone] Performed By: #### 2 9374-6, 73489-3, 57037-9, 69209-4, 25510-9, ANAIFR, 39141-1, 01391-8, 05978-3, 56475-6 ####[facility] LABCLIA [id number] [place] [address] [place] Sjogrens syndrome-B extracta ble nuclear Ab Qn (S)on 07-07-2022 SSB ANTIBODY QUAL Negative Normal Negative [facility] Comment on above: Order Comment: Speci men Type: BLOOD SPECIMENOrdering Facility: [facility] Address: [address] [place], [place] [address] Performed By: #### 2 9374-6, 11916-5, 35947-3, 55197-5, 01480-3, ANAIFR, 75430-2, 29929-7, 86465-9, 69518-7 ####[facility] LABIA [id number] [place] [address] [place] Osborne extractable nuclear Ig G Qn (S)on 07-07-2022 SM ANTIBODY QUAL Negative Normal Negative [facility] Comment on above: Order Comment: Speci men Type: BLOOD SPECIMENOrdering Facility: [facility] Address: [address] [place] [address] Result Comment: Anti -Sm (Osborne) antibody is used as an aid in diagnosis of systemic lupus erythematosus and its presence is associated with renal disease. A negative result cannot rule out systemic lupus erythematosus. Clinical correlation is required. Test Methodology: Multiplex flow immunoassay. Performed By: #### 2 9374-6, 44648-1, 73510-0, 99747-4, 12020-3, ANAIFR, 78551-7, 10426-5, 92959-3, 09994-1 ####[facility] [id number] [place] [address] [place] TSH BLDon 07-07-2022 TSH Qn 0.824 m[IU]/L 0.270 - 4.200 mIU/L [facility] TSH SerPl-aCncon 07-07-2022 TSH Qn 0.824 m[IU]/L Normal 0.270-4.200 [facility] Comment on above: Order Comment: Speci men Type: BLOOD SPECIMENOrdering Facility: [facility] Address: [address] [place], [place] [address] Result Comment: If t he patient is , TSH reference range varies by gestational period: First Trimester (weeks 9-12): 0.180-2.990 mIU/L Second Trimester: 0.110-3.980 mIU/L Third Trimester: 0.480-4.710 mIU/L Eliezer Bangura et al. A Practical Approach for the Verifications and Determination of Site- and Trimester-Specific Reference Intervals for Thyroid Function tests in . Thyroid, 2019:29:3:412-420. Rob E, et al. 2017 Guidelines of the [place] Thy[employer] for the Diagnosis and Management of Thyroid Disease during and the . Thyroid, 2017:27:3:315-389. Performed By: #### 3 016-3, 2132-04 ####[facility] LABCLIA [id number] [place] [address] [place] VITAMIN B12 BLOODon 07-07-20 22 Cobalamin (Vitamin B12) [Mass/Vol] 618 pg/mL 232 - 1,245 pg/mL [facility] Vit B12 SerPl-mCncon 022 Cobalamin (Vitamin B12) [Mass/Vol] 618 pg/mL Normal 232-1245 [facility] Comment on above: Order Comment: Speci men Type: BLOOD SPECIMENOrdering Facility: [facility] Address: [address] [place] [address] Performed By: #### 3 016-3, 2132-04 ####[facility] LABCLIA [id number] [address] OF [facility] dsDNA Ab Ser IA-aCncon 07-07 DNA double strand Ab IA Qn (S) <12 Normal <30 [facility] Comment on above: Order Comment: Speci men Type: BLOOD SPECIMENOrdering Facility: [facility] Address: [address] [place] [address] Result Comment: Nega tive for ds DNA Antibodies. <30 IU/mL Negative 30-74 IU/mL Equivocal >74 IU/mL Positive Performed By: #### 2 9374-6, 86242-0, 43586-1, 26370-4, 89927-5, ANAIFR, 41584-9, 21044-1, 11686-7, 85400-4 ####[facility] LABCLIA [id number] [facility] [id number] [place], [place] [address] [place] HLA B 27on 04-26-2022 HLA-B27 Negative Normal [facility] Comment on above: Result Comment: HLA- B*27 Negative B27 allele interpretation for all loci based on IMGT/HLA database version 3.44 This test was developed and its performance characteristics determined by [facility]. It has not been cleared or approved by the Food and Drug Administration. [facility] CLIA ID Number [id number] . This test was performed using PCR (Polymerase Chain Reaction)/SSOP (Sequence Specific Oligonucleotide Probes) technique. SBT (Sequence Based Typing) and/or SSP (Sequence Specific Primers) may be used as supplemental methods when necessary. Please contact [facility] Customer Service at if you have any questions. . Director of [facility] Laboratory Dr Abdiaziz Shook, PhD Performed By: #### C VDAGA #### [facility] [address] [place] [address] Dr. Christos Fallon 25-HYDROXY VIT D (D2+D3 FRA ) LC/MS-MSon 04-23-2022 25-Hydroxy, Vitamin D 26 ng/mL Critically low [facility] Comment on above: Result Comment: Refe rence Range: All Ages: Target levels 30 - 100 Performed By: #### C MP, TSH, HSTROPN #### [facility] [address] [place] [address] Dr. Christos Fallon 25-Hydroxy, Vitamin D-2 <1.0 Normal [facility] Comment on above: Result Comment: This test was developed and its performance characteristics determined by [facility]. It has not been cleared or approved by the Food and Drug Administration. Performed By: #### C MP, TSH, HSTROPN #### [facility] [address] [place] [address] Dr. Christos Fallon 25-Hydroxy, Vitamin D-3 26 ng/mL Normal [facility] Comment on above: Result Comment: This test was developed and its performance characteristics determined by [facility]. It has not been cleared or approved by the Food and Drug Administration. Performed By: #### C MP, TSH, HSTROPN #### [facility] [address] [place] [address] Dr. Christos Fallon REVERSE T3on 04-20-2022 Reverse T3, Serum 11.2 ng/dL Normal 9.2-24.1 [facility] Comment on above: Result Comment: This test was developed and its performance characteristics determined by [facility]. It has not been cleared or approved by the Food and Drug Administration. Performed By: #### C VDAGA #### [facility] [address] [place] [address] Dr. Christos Fallon THYROID ANTIBODIESon 022 Thyroglobulin Antibody <1.0 Normal 0.0-0.9 [facility] Comment on above: Result Comment: Thyr oglobulin Antibody measured by [facility] Performed By: #### C VDAGA #### [facility] [address] [place] [address] Dr. Christos Fallon Thyroid Peroxidase (TPO) Ab 11 IU/mL Normal 0-34 [facility] Comment on above: Performed By: #### C VDAGA #### [facility] [address] [place] [address] Dr. Christos Fallon ANTISTREPTOLYSIN O AB (ASO)o n 04-16-2022 Antistreptolysin O Ab 21.8 IU/mL Normal 0.0-200.0 [facility] Comment on above: Performed By: #### C MP, TSH, HSTROPN #### [facility] [address] [place] [address] Dr. Christos Fallon T3, TOTAL (TRIIODOTHYRONINE) on 04-16-2022 T3, TOTAL 115 ng/dL Normal 71-180 [facility] Comment on above: Performed By: #### C MP, TSH, HSTROPN #### [facility] [address] [place] [address] Dr. Christos Fallon FREE T3on 04-14-2022 FREE T3 2.46 pg/mlL Normal 2.18-3.98 [facility] Comment on above: Performed By: #### C MP, TSH, HSTROPN #### [facility] [address] [place] [address] Dr. Christos Fallon FREE T4on 04-14-2022 Free T4 [Mass/Vol] 0.88 ng/dL Normal 0.76-1.46 [facility] Comment on above: Performed By: #### C VDAGA #### [facility] [address] [place] [address] Dr. Christos Fallon TSHon 04-14-2022 TSH 1.027 uIU/mL Normal 0.358-3.740 [facility] Comment on above: Performed By: #### C MP, TSH, HSTROPN #### [facility] [address] [place] [address] Dr. Christos Fallon CBC AUTO DIFFon 03-22-2022 BASO # 0.1 103/ul Normal 0.0-0.1 [facility] Comment on above: Performed By: #### C MP, TSH, HSTROPN #### [facility] [address] [place] [address] Dr. Christos Fallon Basophils/100 WBC (Bld) 0.7 % Normal 0.2-2.0 [facility] Comment on above: Performed By: #### C MP, TSH, HSTROPN #### [facility] [address] [place] [address] Dr. Christos Fallon EO # 0.3 103/ul Normal 0.0-0.7 [facility] [place] Comment on above: Performed By: #### C MP, TSH, HSTROPN #### [facility] [address] [place] [address] Dr. Christos Fallon Eosinophils/100 WBC (Bld) 3.4 % Normal 0.9-7.0 [facility] [place] Comment on above: Performed By: #### C MP, TSH, HSTROPN #### [facility] [address] [place] [address] Dr. Christos Fallon Erythrocyte distribution width (RBC) [Ratio] 12.5 % Normal 11.0-15.0 [facility] [place] Comment on above: Performed By: #### C MP, TSH, HSTROPN #### [facility] [address] [place] [address] Dr. Christos Fallon Hematocrit (Bld) [Volume fraction] 41.3 % Normal 36.0-48.0 [facility] [place] Comment on above: Performed By: #### C MP, TSH, HSTROPN #### [facility] [address] [place] [address] Dr. Christos Fallon Hemoglobin (Bld) [Mass/Vol] 14.2 g/dL Normal 12.0-16.0 [facility] Comment on above: Performed By: #### C MP, TSH, HSTROPN #### [facility] [address] [place] [address] Dr. Christos Fallon IG # 0.03 10e3/ul Normal 0.00-0.03 [facility] Comment on above: Performed By: #### C MP, TSH, HSTROPN #### [facility] [address] [place] [address] Dr. Christos Fallon IG % 0.4 % Normal 0.0-0.5 [facility] [place] Comment on above: Performed By: #### C MP, TSH, HSTROPN #### [facility] [address] [place] [address] Dr. Christos Fallon LYMPH # 2.3 103/ul Normal 1.2-3.8 [facility] [place] Comment on above: Performed By: #### C MP, TSH, HSTROPN #### [facility] [address] [place] [address] Dr. Christos Fallon Lymphocytes/100 WBC (Bld) 31.3 % Normal 20.5-60.0 [facility] [place] Comment on above: Performed By: #### C MP, TSH, HSTROPN #### [facility] [address] [place] [address] Dr. Christos Fallon MANUAL DIFF REQ NO Normal [facility] Comment on above: Performed By: #### C MP, TSH, HSTROPN #### [facility] [address] [place] [address] Dr. Christos Fallon MCH (RBC) [Entitic mass] 34.8 pg Critically high 26.7-34.0 [facility] Comment on above: Performed By: #### C MP, TSH, HSTROPN #### [facility] [address] [place] [address] Dr. Christos Fallon MCHC (RBC) [Mass/Vol] 34.4 g/dL Normal 29.9-35.2 [facility] Comment on above: Performed By: #### C MP, TSH, HSTROPN #### [facility] [address] [place] [address] Dr. Christos Fallon MCV (RBC) [Entitic vol] 101.2 fL Critically high 81.0-99.0 [facility] Comment on above: Performed By: #### C MP, TSH, HSTROPN #### [facility] [address] [place] [address] Dr. Christos Fallon MONO # 0.9 103/ul Critically high 0.3-0.8 [facility] Comment on above: Performed By: #### C MP, TSH, HSTROPN #### [facility] [address] [place] [address] Dr. Christos Fallon Monocytes/100 WBC (Bld) 12.0 % Normal 1.7-12.0 [facility] [place] Comment on above: Performed By: #### C MP, TSH, HSTROPN #### [facility] [address] [place] [address] Dr. Christos Fallon NEUT # 3.9 103/ul Normal 1.4-6.5 [facility] Comment on above: Performed By: #### C MP, TSH, HSTROPN #### [facility] [address] [place] [address] Dr. Christos Fallon Neutrophils/100 WBC (Bld) 52.2 % Normal 43.0-75.0 [facility] [place] Comment on above: Performed By: #### C MP, TSH, HSTROPN #### [facility] [address] [place] [address] Dr. Christos Fallon Platelet mean volume (Bld) [Entitic vol] 9.7 fL Normal 9.5-13.5 [facility] [place] Comment on above: Performed By: #### C MP, TSH, HSTROPN #### [facility] [address] [address] [address] Christos Fallon PLT 296 103/ul Normal 150-450 [facility] Comment on above: Performed By: #### C MP, TSH, HSTROPN #### [facility] [address] [address] [address] Christos Fallon RBC 4.08 106/ul Critically low 4.20-5.40 [facility] Comment on above: Performed By: #### C RAY TSH, HSTROPN #### [facility] [address] [place] [address] Dr. Christos Fallon WBC 7.4 103/ul Normal 4.0-11.0 [facility] [place] Comment on above: Performed By: #### C RAY TSH, HSTROPN #### [facility] [address] [place] [address] HEAD WO CONon 03-22-2022 CT HEAD WO CON CLINICAL HISTORY: BENIGN PAROXYSMAL VERTIGO, UNSPECIFIED EAR. EXAMINATION: Unenhanced CT scan of the brain: 03/22/2022. COMPARISON: None. TECHNIQUE: 3 mm axial images from skull base through vertex without intravenous contrast were obtained. Sagittal and coronal reconstructions were also performed. Dose reduction techniques were achieved by using automated exposure control and/or adjustment of mA and/or kV according to patient size and/or use of iterative reconstruction technique. FINDINGS: The visualized intraorbital contents appear normal. The ventricles, sulcal, cisternal spaces seem normal. Normal differentiation of white and august matter is maintained. There is no intra or extra-axial hemorrhage. There is no mass, mass effect, or midline shift. The visualized intraorbital contents are normal. There is mild mucosal thickening involving the sphenoid air cells. The rest of the paranasal sinuses seem normal except for mild opacification of the right frontal air cells. The calvarium appears intact. IMPRESSION: No acute infarct, hemorrhage, or acute intracranial process to explain the patient's symptoms. Electronically authenticated by: PAL WETZEL Date: 2022-03-22 17:41 Normal [facility] ER URINE PROFILEon 2 Bilirubin Ql (U) Negative Normal NEGATIVE [facility] Comment on above: Performed By: #### C VDAGA #### [facility] [address] [place] [address] Dr. Christos Fallon Clarity (U) CLOUDY Abnormal CLEAR [facility] [place] Comment on above: Performed By: #### C VDAGA #### [facility] [address] [place] [address] Dr. Christos Fallon Color (U) LT. YELLOW Normal YELLOW [facility] Comment on above: Performed By: #### C VDAGA #### [facility] [address] [place] [address] Dr. Christos VERGARA A micrscopic examination will be performed if indicated. Normal [facility] Comment on above: Performed By: #### C VDAGA #### [facility] [address] [place] [address] Dr. Christos Fallon Glucose Ql (U) Negative Normal NEGATIVE [facility] Comment on above: Performed By: #### C VDAGA #### [facility] [address] [place] [address] Dr. Christos Fallon Hemoglobin Ql (U) Negative Normal NEGATIVE [facility] Comment on above: Performed By: #### C VDAGA #### [facility] [address] [place] [address] Dr. Christos Fallon Ketones Ql (U) Negative Normal NEGATIVE [facility] Comment on above: Performed By: #### C VDAGA #### [facility] [address] [place] [address] Dr. Christos Fallon LEUKOCYTES Negative Normal NEGATIVE [facility] Comment on above: Performed By: #### C VDAGA #### [facility] [address] [place] [address] Dr. Christos Fallon Nitrite Ql (U) Negative Normal NEGATIVE [facility] Comment on above: Performed By: #### C VDAGA #### [facility] [address] [place] [address] Dr. Christos Fallon pH (U) 6.0 [pH] Normal 5-9 [facility] Comment on above: Performed By: #### C VDAGA #### [facility] [address] [place] [address] Dr. Christos Fallon SPEC GRAVITY 1.010 Normal 1.005-<=1.02 5 [facility] Comment on above: Performed By: #### C VDAGA #### [facility] [address] [place] [address] Dr. Christos Fallon UA PROTEIN Negative Normal NEGATIVE/ TRACE [facility] Comment on above: Performed By: #### C VDAGA #### [facility] [address] [place] [address] Dr. Christos Fallon UR MICRO IND NOT INDICATED Normal [facility] Comment on above: Performed By: #### C VDAGA #### [facility] [address] [place] [address] Dr. Christos Fallon Urobilinogen Qn (U) 0.2 {Peyman'U}/dL Normal 0.2 - 1. 0 [facility] Comment on above: Performed By: #### C VDAGA #### [facility] [address] [place] [address] Dr. Christos Fallon PROF 14(COMP METB)on 022 Albumin [Mass/Vol] 3.6 g/dL Normal 3.4-5.0 [facility] Comment on above: Performed By: #### C RAY HSTROPN, TSH #### [facility] [address] [place] [address] Dr. Christos Fallon Albumin/Globulin [Mass ratio] 0.9 {ratio} Normal [facility] Comment on above: Performed By: #### C MARIIA BELLTRANSHUL, TSH #### [facility] [address] [place] [address] Dr. Christos Fallon ALP [Catalytic activity/Vol] 83 U/L Normal 46-116 [facility] Comment on above: Performed By: #### C RAY HSTROPN, TSH #### [facility] [address] [address] [address] Christos Fallon ALT [Catalytic activity/Vol] 32 U/L Normal 14-59 [facility] Comment on above: Performed By: #### C MP, HSTROPN, TSH #### [facility] [address] [address] [address] Christos Fallon Anion gap [Moles/Vol] 15.4 mmol/L Normal Th [facility] Comment on above: Performed By: #### C MP, HSTROPN, TSH #### [facility] [address] [address] [address] Christos Fallon AST [Catalytic activity/Vol] 15 U/L Normal 15-37 [facility] Comment on above: Performed By: #### C MP, HSTROPN, TSH #### [facility] [address] [place] [address] Dr. Christos Fallon Bilirubin [Mass/Vol] 0.3 mg/dL Normal 0.2-1.0 [facility] Comment on above: Performed By: #### C MP, HSTROPN, TSH #### [facility] [address] [address] [address] Christos Fallon Calcium [Mass/Vol] 8.9 mg/dL Normal 8.5-10.1 [facility] Comment on above: Performed By: #### C MP, HSTROPN, TSH #### [facility] [address] [address] [address] Christos Fallon Chloride [Moles/Vol] 102 mmol/L Normal 98-107 [facility] Comment on above: Performed By: #### C MP, HSTROPN, TSH #### [facility] [address] [address] [address] Christos Fallon CO2 [Moles/Vol] 22.7 mmol/L Normal 21.0-32.0 [facility] Comment on above: Performed By: #### C MP, HSTROPN, TSH #### [facility] [address] [address] [address] Christos Fallon Creatinine [Mass/Vol] 0.97 mg/dL Normal 0.55-1.02 [facility] Comment on above: Performed By: #### C MP, HSTROPN, TSH #### [facility] [address] [place] [address] Dr. Christos Fallon EGFR-AF SRI LANKAN >60 Normal >=60 [facility] Comment on above: Performed By: #### C MP, HSTROPN, TSH #### [facility] [address] [place] [address] Dr. Christos Fallon EGFR-NON AF SRI LANKAN >60 Normal >=60 [facility] Comment on above: Performed By: #### C MP, HSTROPN, TSH #### [facility] [address] [place] [address] Dr. Christos Fallon Globulin (S) [Mass/Vol] 3.8 g/dL Normal [facility] Comment on above: Performed By: #### C MP, HSTROPN, TSH #### [facility] [address] [place] [address] Dr. Christos Fallon Glucose [Mass/Vol] 104 mg/dL Normal 74-106 [facility] Comment on above: Performed By: #### C MP, HSTROPN, TSH #### [facility] [address] [place] [address] Dr. Christos Fallon Potassium [Moles/Vol] 4.1 mmol/L Normal 3.5-5.1 [facility] Comment on above: Performed By: #### C MP, HSTROPN, TSH #### [facility] [address] [place] [address] Dr. Christos Fallon Protein [Mass/Vol] 7.4 g/dL Normal 6.4-8.2 [facility] Comment on above: Performed By: #### C MP, HSTROPN, TSH #### [facility] [address] [place] [address] Dr. Christos Fallon Sodium [Moles/Vol] 136 mmol/L Normal 136-145 [facility] Comment on above: Performed By: #### C MP, HSTROPN, TSH #### [facility] [address] [address] [address] Christos Fallon Urea nitrogen [Mass/Vol] 17.0 mg/dL Normal 7.0-18.0 [facility] Comment on above: Performed By: #### C MP, HSTROPN, TSH #### [facility] [address] [place], [place] [address] Dr. Christos Fallon Urea nitrogen/Creatinine [Mass ratio] 17.5 mg/mg Normal [facility] Comment on above: Performed By: #### C MP, HSTROPN, TSH #### [facility] [address] [address] [address] Christos Fallon TROPONIN, HIGH SENSITIVITYon 03-22-2022 HSTROP <4.0 Normal 4.0-51.3 [facility] Comment on above: Result Comment: CUT- OFF POINTS HAVE BEEN ESTABLISHED BASED ON THE FOURTH UNIVERSAL DEFINITIONS OF MYOCARDIAL INFARCTION. THE UPPER REFERENCE LIMIT (URL) OF TROPONIN, DEFINED THE 99TH PERCENTILE OF cTnI DISTRIBUTION IN A REFERENCE POPULATION, HAS BEEN CONFIRMED THE DECISION THRESHOLD FOR OK DIAGNOSIS. Performed By: #### C MP, HSTROPN, TSH #### [facility] [address] [place] [address] Dr. Christos Fallon TSHon 03-22-2022 TSH 0.854 uIU/mL Normal 0.358-3.740 [facility] Comment on above: Performed By: #### C MP, HSTROPN, TSH #### [facility] [address] [place] [address] Dr. Christos Fallon ASYMPTOMATIC COVID-19 ANTIGE Non 03-03-2022 EUA Statement SEE BELOW Normal [facility] Comment on above: Result Comment: This test has not been FDA cleared or approved, but has been authorized by the FDA under an Emergency Use Authorization (EUA) for use by authorized laboratories certified under CLIA that meet the requirements to perform moderate or high complexity testing. This test has been authorized only for the detection of proteins from SARS-CoV-2, not for any other viruses or pathogens. The emergency use of this test is authorized for the duration of the declaration that circumstances exist justifying the authorization of emergency use of in vitro diagnostic tests for detection and/or diagnosis of Covid-19 under section 564(b)(1) of the Act, 21 U.S.C. 360bbb-3(b)(1), unless the declaration is terminated or authorization is revoked sooner. Performed By: #### C VDAGA #### [facility] [address] [place] [address] Dr. Christos Fallon SARS-CoV-2 (COVID-19) RNA LEROY+probe Ql (Unsp spec) Positive Critically abnormal NEGATIVE [facility] Comment on above: Result Comment: SARS -CoV-2 antigen present; does not rule out coinfection with other pathogens. Performed By: #### C VDAGA #### [facility] [address] [place] [address] Dr. Christos Fallon Covid-19 PCR (CVDTB)on 02-06 SARS-CoV-2 (COVID-19) RNA LEROY+probe Ql (Unsp spec) Detected Critically abnormal NOT DETECTED [facility] Comment on above: Result Comment: This test is not yet approved or cleared by the [place] FDA. When there are no FDA-approved or cleared tests available, and other criteria are met, FDA can make tests available under an emergency access mechanism called an Emergency Use Authorization (EUA). The EUA for this test is supported by the [employer] [place] of Health and Human Service's declaration that circumstances exist to justify the emergency use of in vitro diagnostics for the detection and/or diagnosis of the virus that causes COVID-19. This EUA will remain in effect for the duration of the COVID-19 declaration justifying emergency of IVDs, unless it is terminated or revoked by the FDA (after which the test may no longer be used). Performed By: #### C MP, TSH, HSTROPN #### [facility] [address] [place] [address] Dr. Christos Fallon CRPon 11-25-2021 CRP [Mass/Vol] mg/L Normal <=1.[address] [facility] Comment on above: Performed By: #### C MP, TSH, HSTROPN #### [facility] [address] [place] [address] Dr. Christos Fallon VIT B12 AND FOLATEon 022 Cobalamin (Vitamin B12) [Mass/Vol] 329.0 pg/mL Normal 239.0-931.0 [facility] Comment on above: Performed By: #### C MP, TSH, HSTROPN #### [facility] [address] [place] [address] Dr. Christos Fallon FOLATE 8.50 ng/mL Normal >=2.76 [facility] Comment on above: Performed By: #### C MP, TSH, HSTROPN #### [facility] [address] [place] [address] Dr. Christos Fallon CBC AUTO DIFFon 11-19-2021 BASO # 0.1 103/ul Normal 0.0-0.1 [facility] Comment on above: Performed By: #### C BC #### [facility] [address] [place] [address] Dr. Christos Fallon Basophils/100 WBC (Bld) 0.8 % Normal 0.2-2.0 [facility] Comment on above: Performed By: #### C BC #### [facility] [address] [place] [address] Dr. Christos Fallon EO # 0.3 103/ul Normal 0.0-0.7 [facility] Comment on above: Performed By: #### C BC #### [facility] [address] [place] [address] Dr. Christos Fallon Eosinophils/100 WBC (Bld) 4.8 % Normal 0.9-7.0 [facility] Comment on above: Performed By: #### C BC #### [facility] [address] [place] [address] Dr. Christos Fallon Erythrocyte distribution width (RBC) [Ratio] 12.2 % Normal 11.0-15.0 [facility] Comment on above: Performed By: #### C BC #### [facility] [address] [place] [address] Dr. Christos Fallon Hematocrit (Bld) [Volume fraction] 41.9 % Normal 36.0-48.0 [facility] Comment on above: Performed By: #### C BC #### [facility] [address] [place] [address] Dr. Christos Fallon Hemoglobin (Bld) [Mass/Vol] 14.2 g/dL Normal 12.0-16.0 [facility] Comment on above: Performed By: #### C BC #### [facility] [address] [place] [address] Dr. Christos Fallon IG # 0.03 10e3/ul Normal 0.00-0.03 [facility] Comment on above: Performed By: #### C BC #### [facility] [address] [place] [address] Dr. Christos Fallon IG % 0.5 % Normal 0.0-0.5 [facility] Comment on above: Performed By: #### C BC #### [facility] [address] [place] [address] Dr. Christos Fallon LYMPH # 1.5 103/ul Normal 1.2-3.8 [facility] Comment on above: Performed By: #### C BC #### [facility] [address] [place] [address] Dr. Christos Fallon Lymphocytes/100 WBC (Bld) 24.6 % Normal 20.5-60.0 [facility] Comment on above: Performed By: #### C BC #### [facility] [address] [place] [address] Dr. Christos Fallon MANUAL DIFF REQ NO Normal [facility] Comment on above: Performed By: #### C BC #### [facility] [address] [place] [address] Dr. Christos Fallon MCH (RBC) [Entitic mass] 34.3 pg Critically high 26.7-34.0 [facility] Comment on above: Performed By: #### C BC #### [facility] [address] [place] [address] Dr. Christos Fallon MCHC (RBC) [Mass/Vol] 33.9 g/dL Normal 29.9-35.2 [facility] Comment on above: Performed By: #### C BC #### [facility] [address] [address] [address] Christos Fallon MCV (RBC) [Entitic vol] 101.2 fL Critically high 81.0-99.0 [facility] Comment on above: Performed By: #### C BC #### [facility] [address] [address] [address] Chrisots Fallon MONO # 0.5 103/ul Normal 0.3-0.8 [facility] Comment on above: Performed By: #### C BC #### [facility] [address] [address] [address] Christos Fallon Monocytes/100 WBC (Bld) 7.2 % Normal 1.7-12.0 [facility] [place] Comment on above: Performed By: #### C BC #### [facility] [address] [address] [address] Christos Fallon NEUT # 3.9 103/ul Normal 1.4-6.5 [facility] [place] Comment on above: Performed By: #### C BC #### [facility] [address] [address] [address] Christos Fallon Neutrophils/100 WBC (Bld) 62.1 % Normal 43.0-75.0 [facility] [place] Comment on above: Performed By: #### C BC #### [facility] [address] [address] [address] Christos Fallon Platelet mean volume (Bld) [Entitic vol] 9.1 fL Critically low 9.5-13.5 [facility] [place] Comment on above: Performed By: #### C BC #### [facility] [address] [address] [address] Christos Fallon PLT 301 103/ul Normal 150-450 [facility] Comment on above: Performed By: #### C BC #### [facility] [address] [address] [address] Christos Fallon RBC 4.14 106/ul Critically low 4.20-5.40 [facility] Comment on above: Performed By: #### C BC #### [facility] [address] [address] [address] Christos Fallon WBC 6.3 103/ul Normal 4.0-11.0 [facility] [place] Comment on above: Performed By: #### C BC #### [facility] [address] [place] [address] Dr. Christos Fallon FREE T3on 11-19-2021 FREE T3 2.72 pg/mlL Critically low 2.77-5.27 [facility] Comment on above: Performed By: #### C MP, TSH, HSTROPN #### [facility] [address] [place] [address] Dr. Christos Fallon FREE T4on 11-19-2021 Free T4 [Mass/Vol] 1.09 ng/dL Normal 0.78-2.19 [facility] Comment on above: Performed By: #### C MP, TSH, HSTROPN #### [facility] [address] [place] [address] Dr. Christos Fallon GLYCOHEMOGLOBIN A1Con 2021 ADA RECOMMENDATION ADA THERAPEUTIC TARGET 6.0 - 7.0 ACTION SUGGESTED > 7.0 Normal [facility] [place] Comment on above: Performed By: #### A 1C #### [facility] [address] [place] [address] Dr. Christos Fallon Glucose [Mass/Vol] 105 mg/dL Normal [facility] Comment on above: Performed By: #### A 1C #### [facility] [address] [place] [address] Dr. Christos Fallon HbA1c (Bld) [Mass fraction] 5.3 % Normal <=6.0 [facility] [place] Comment on above: Performed By: #### A 1C #### [facility] [address] [place] [address] Dr. Christos Fallon LIPID PROFILEon 11-19-2021 CHOL-HDL RATIO NORM SEE BELOW Normal [facility] Comment on above: Result Comment: 3.3 - 4.4 LOW RISK 4.4 - 7.1 AVERAGE RISK 7.1 - 11.0 MODERATE RISK >11.0 HIGH RISK Performed By: #### C MP, TSH, HSTROPN #### [facility] [address] [address] [address] Christos Fallon Cholesterol [Mass/Vol] 232 mg/dL Critically high <=200 [facility] [place] Comment on above: Performed By: #### C MP, TSH, HSTROPN #### [facility] [address] [address] [address] Christos Fallon Cholesterol in HDL [Mass/Vol] 60 mg/dL Normal 40-60 [facility] [place] Comment on above: Performed By: #### C MP, TSH, HSTROPN #### [facility] [address] [address] [address] Christos Fallon Cholesterol in LDL [Mass/Vol] 134.6 mg/dL Normal [facility] [place] Comment on above: Performed By: #### C MP, TSH, HSTROPN #### [facility] [address] [place] [address] Dr. Christos Fallon Cholesterol.total/Cho lesterol in HDL [Mass ratio] 3.9 {ratio} Normal [facility] [place] Comment on above: Performed By: #### C MP, TSH, HSTROPN #### [facility] [address] [address] [address] Christos Fallon HDL NORMAL > or = 60 mg/dl - LO W CARDIOVASCULAR RISK <40 mg/dl - HIGH CARDIOVASCULAR RISK Normal [facility] [place] Comment on above: Performed By: #### C MP, TSH, HSTROPN #### [facility] [address] [address] [address] Christos Fallon LDL CALC NORMAL SEE BELOW Normal [facility] Comment on above: Result Comment: <100 mg/dl OPTIMAL 100 - 129 mg/dl NEAR OR ABOVE OPTIMAL 130 - 159 mg/dl BORDERLINE HIGH 160 - 189 mg/dl HIGH >190 mg/dl VERY HIGH Performed By: #### C MP, TSH, HSTROPN #### [facility] [address] [address] [address] Christos Fallon Triglyceride [Mass/Vol] 187 mg/dL Critically high <=150 [facility] Comment on above: Performed By: #### C MP, TSH, HSTROPN #### [facility] [address] [place] [address] Dr. Christos Fallon VLDL CALC 37.4 mg/dL Normal [facility] [place] Comment on above: Performed By: #### C MP, TSH, HSTROPN #### [facility] [address] [place] [address] Dr. Christos Fallon PROF 14(COMP METB)on 022 Albumin [Mass/Vol] 3.8 g/dL Normal 3.4-5.0 [facility] Comment on above: Performed By: #### C MP, TSH, HSTROPN #### [facility] [address] [place] [address] Dr. Christos Fallon Albumin/Globulin [Mass ratio] 1.1 {ratio} Normal [facility] [place] Comment on above: Performed By: #### C MP, TSH, HSTROPN #### [facility] [address] [place] [address] Dr. Christos Fallon ALP [Catalytic activity/Vol] 77 U/L Normal 46-116 [facility] [place] Comment on above: Performed By: #### C MP, TSH, HSTROPN #### [facility] [address] [place] [address] Dr. Christos Fallon ALT [Catalytic activity/Vol] 34 U/L Normal 14-59 [facility] [place] Comment on above: Performed By: #### C MP, TSH, HSTROPN #### [facility] [address] [place] [address] Dr. Christos Fallon Anion gap [Moles/Vol] 11.5 mmol/L Normal [facility] Comment on above: Performed By: #### C MP, TSH, HSTROPN #### [facility] [address] [place] [address] Dr. Christos Fallon AST [Catalytic activity/Vol] 21 U/L Normal 15-37 [facility] [place] Comment on above: Performed By: #### C MP, TSH, HSTROPN #### [facility] [address] [place] [address] Dr. Christos Fallon Bilirubin [Mass/Vol] 0.7 mg/dL Normal 0.2-1.3 [facility] [place] Comment on above: Performed By: #### C MP, TSH, HSTROPN #### [facility] [address] [place] [address] Dr. Christos Fallon Calcium [Mass/Vol] 8.8 mg/dL Normal 8.5-10.1 [facility] Comment on above: Performed By: #### C MP, TSH, HSTROPN #### [facility] [address] [place] [address] Dr. Christos Fallon Chloride [Moles/Vol] 104 mmol/L Normal 98-107 [facility] [place] Comment on above: Performed By: #### C MP, TSH, HSTROPN #### [facility] [address] [place] [address] Dr. Christos Fallon CO2 [Moles/Vol] 28.6 mmol/L Normal 22.0-30.0 [facility] Comment on above: Performed By: #### C MP, TSH, HSTROPN #### [facility] [address] [place] [address] Dr. Christos Fallon Creatinine [Mass/Vol] 0.88 mg/dL Normal 0.52-1.04 [facility] [place] Comment on above: Performed By: #### C MP, TSH, HSTROPN #### [facility] [address] [place] [address] Dr. Christos Fallon EGFR-AF SRI LANKAN >60 Normal >=60 [facility] Comment on above: Performed By: #### C MP, TSH, HSTROPN #### [facility] [address] [place] [address] Dr. Christos Fallon EGFR-NON AF SRI LANKAN >60 Normal >=60 [facility] [place] Comment on above: Performed By: #### C MP, TSH, HSTROPN #### [facility] [address] [place] [address] Dr. Christos Fallon Globulin (S) [Mass/Vol] 3.5 g/dL Normal [facility] Comment on above: Performed By: #### C MP, TSH, HSTROPN #### [facility] [address] [place] [address] Dr. Christos Fallon Glucose [Mass/Vol] 101 mg/dL Normal 74-106 [facility] Comment on above: Performed By: #### C MP, TSH, HSTROPN #### [facility] [address] [place] [address] Dr. Christos Fallon Potassium [Moles/Vol] 4.1 mmol/L Normal 3.4-5.0 [facility] [place] Comment on above: Performed By: #### C MP, TSH, HSTROPN #### [facility] [address] [place] [address] Dr. Christos Fallon Protein [Mass/Vol] 7.3 g/dL Normal 6.1-8.2 [facility] Comment on above: Performed By: #### C MP, TSH, HSTROPN #### [facility] [address] [place] [address] Dr. Christos Fallon Sodium [Moles/Vol] 140 mmol/L Normal 137-145 [facility] Comment on above: Performed By: #### C MP, TSH, HSTROPN #### [facility] [address] [place] [address] Dr. Christos Fallon Urea nitrogen [Mass/Vol] 11.0 mg/dL Normal 7.0-18.0 [facility] [place] Comment on above: Performed By: #### C MP, TSH, HSTROPN #### [facility] [address] [place] [address] Dr. Christos Fallon Urea nitrogen/Creatinine [Mass ratio] 12.5 mg/mg Normal [facility] [place] Comment on above: Performed By: #### C MP, TSH, HSTROPN #### [facility] [address] [place] [address] Dr. Christos Faloln TSHon 11-19-2021 TSH 0.774 uIU/mL Normal 0.470-4.680 [facility] Comment on above: Performed By: #### C MP, TSH, HSTROPN #### [facility] [address] [place], [place] [address] Dr. Christos Fallon TSH RANGE SEE BELOW Normal [facility] Comment on above: Result Comment: <0.3 4 UIU/ml HYPERTHYROID 0.34-5.60 UIU/ml EUTHYROID >5.60 UIU/ml HYPOTHYROID Performed By: #### C MP, TSH, HSTROPN #### [facility] [address] [place], [place] [address] Dr. Christos Fallon XR TSPINE 2 VIEWSon 11-20-19 22 XR TSPINE 2 VIEWS EXAMINATION: XR CSPINE MIN 4 VIEWS, XR LSPINE MIN 4 VIEWS, XR TSPINE 2 VIEWS HISTORY: Osteoarthritis , chronic back pain, difficulty swallowing COMPARISON: XR cervical spine 02/22/2020 FINDINGS: BONES: Slight reversal of the normal lordotic curvature of the cervical spine. Minimal anterior wedging of C5, unchanged compared to prior study; developmental versus remote compression fracture. DISC SPACES: Mild narrowing L5-S1. PARASPINOUS: Negative. No paraspinous abnormality is seen. OTHER: Negative. IMPRESSION: 1. Cervical spine: No acute bone abnormality or significant degenerative changes. Stable developmental variation of C5 versus remote mild compression fracture. 2. Thoracic spine: Unremarkable. 3. Lumbar spine: L5-S1 mild degenerative disc disease. Electronically authenticated by: TAMIE GUILLERMO Date: 2021-11-19 12:49 Normal [facility] Cardiovascular Lab Reporton 11-17-2021 Cardiovascular Lab Report [facility] MR #: [id number] Physician: Jonny Fowler M.D. Department of Service Date: 11/17/2021 Medicine Birthdate: 1980 Division of Room #: CC Cardiology Adult Cardiovascular Services [address] [place] [address] Cardiovascular Laboratory Report PROCEDURE: Implantable loop recorder placement. INDICATION FOR CARDIOVERSION: The patient is a 40-year-old woman, who has a history of multiple arrhythmias and recurrent syncope. She underwent catheter ablation of several arrhythmias, but continued to be extremely symptomatic and continued to experience syncopal and near syncopal events. To determine whether or not these are due to a cardiac rhythm disturbance, she will undergo implantable loop recorder placement today. DESCRIPTION OF PROCEDURE: After written informed consent was obtained, she was brought to the electrophysiology and pacemaker laboratory in the fasting state. The left chest area was prepped and draped in usual manner. A 1% Xylocaine solution infiltrated for local anesthesia. Following initial sharp incision, a subcutaneous dissection tool was employed to create a subcutaneous pocket, into which was deployed a Biotronik BioMonitor 3 implantable loop recorder. Via off field telemetry, adequate EKG size and strength were confirmed. The subdermal area was then closed with interrupted 4-0 Biosyn sutures placed utilizing a buried knot technique and the skin surface was closed with Dermabond glue. The wound was dressed with a Telfa pad and Tegaderm dressing. Sponge and needle counts were correct at the end of the case. She was returned to the holding area in stable hemodynamic condition. FINAL IMPRESSION: Implantable loop recorder placement. Electronically Signed by: Jonny Fowler M.D. 11/18/2021 11:08 A Jonny Fowler M.D. Date Dict: 11/17/2021/10:47 A/Jonny Fowler M.D. Date Trans: 11/17/2021 12:41 P/gisello [id number] cc: Mert Lama M.D. [address] [place] [id number] Normal [facility] Covid-19 PCR (CVDTBH)on SARS-CoV-2 (COVID-19) RNA LEROY+probe Ql (Unsp spec) Not detected Normal NOT DETECTED [facility] Comment on above: Result Comment: This test is not yet approved or cleared by the [place] FDA. When there are no FDA-approved or cleared tests available, and other criteria are met, FDA can make tests available under an emergency access mechanism called an Emergency Use Authorization (EUA). The EUA for this test is supported by the [place] of Health and Human Service's (HHS's) declaration that circumstances exist to justify the emergency use of in vitro diagnostics for the detection and/or diagnosis of the virus that causes COVID-19. This EUA will remain in effect (meaning this test can be used) for the duration of the COVID-19 declaration justifying emergency of IVDs, unless it is terminated or revoked by FDA (after which the test may no longer be used). When diagnostic testing is negative, the possibility of a false negative should be considered in the context of a patient's recent exposures and the presence of clinical signs and symptoms consistent with SARS-CoV-2. Performed By: #### C MP, TSH, HSTROPN #### [facility] [address] [place] [address] Dr. Christos Fallon Covid-19 PCR (CVDTB)on SARS-CoV-2 (COVID-19) RNA LEROY+probe Ql (Unsp spec) Not detected Normal NOT DETECTED [facility] Comment on above: Result Comment: When diagnostic testing is negative, the possibility of a false negative should be considered in the context of a patient's recent exposures and the presence of clinical signs and symptoms consistent with SARS-CoV-2. This test is not yet approved or cleared by the [place] FDA. When there are no FDA-approved or cleared tests available, and other criteria are met, FDA can make tests available under an emergency access mechanism called an Emergency Use Authorization (EUA). The EUA for this test is supported by the [place] of Health and Human Service's declaration that circumstances exist to justify the emergency use of in vitro diagnostics for the detection and/or diagnosis of the virus that causes COVID-19. This EUA will remain in effect for the duration of the COVID-19 declaration justifying emergency of IVDs, unless it is terminated or revoked by the FDA (after which the test may no longer be used). Performed By: #### C VDTBH #### [facility] [address] [place] [address] Dr. Christos Fallon Cardiovascular Lab Reporton 06-17-2021 Cardiovascular Lab Report [facility] Patient Name: Christina [facility] MR #: [id number] Physician: Vishal Rogers MD Department of Service Date: 06/17/2021 Medicine Birthdate: 1980 Division of Room #: CC Cardiology Adult Cardiovascular Services [facility] [address] [place], [place] [address] Cardiovascular Laboratory Report COMPREHENSIVE EP STUDY AND ATRIAL TACHYCARDIA ABLATION DATE OF PROCEDURE: 06/17/2021 PERFORMING PHYSICIAN: Dr. Vishal Rogers INDICATIONS FOR PROCEDURE: 1. History of symptomatic paroxysmal narrow complex tachycardia, refractory to medical therapy. CONSENT: Patient LOCATION: EP Lab PROCEDURAL SEDATION: Versed and Fentanyl. Moderate sedation was administered by the sedation nurse under my supervision and noted in the CVL log. Intraprocedural face to face sedation time: 115min. Monitoring: Cardiac telemetry, Blood pressure, continuous pulse oxymetry. FLUROSCOPY: 8min 48sec/ 197mGray PREPARATION: Preoperative antibiotics was administered. PROCEDURES PERFORMED: 1. Ultrasound guided vascular access for venous sheaths as documented below in procedure note. 2. Comprehensive EP study and intracardiac catheter ablation for SVT consistent with Atrial tachycardia. This includes right atrial recording and pacing, His bundle recording and right ventricular recording and pacing. 3. Intracardiac EP 3D mapping. 4. Coronary sinus recording and pacing to induce arrhythmia. 5. Induction of arrythmia and verification of ablation results using intravenous isoproterenol infusion. PROCEDURE NOTE: 40-year-old lady with a history of palpitations who was previously evaluated with an event monitor and appeared to show what appeared to be a long RP tachycardia. She was brought to the EP lab for EP study and ablation. On presentation, she was noted to have sinus rhythm with no evidence of pre-excitation. The risks, benefits and alternatives of the procedure were discussed with the patient and family who agreed to proceed. Please refer to my note for details of the discussion and of indications. Patient was brought to the EP lab in the post absorptive state. A procedural pause was performed verifying the patient, the procedure. The right and left groins were prepped and draped in the usual sterile fashion. Preoperative antibiotics was administered. Ultrasound was used to image the right and left femoral veins and it was noted to be patent and this was used for vessel entry and image stored insystem. After infiltration with 1% lidocaine, 4 venous sheaths were placed in the right. 5000U Heparin bolus was given and bolus given subsequently to target ACT above 250. Details of catheters placed as follows. RFV: 5Fx2 RV/RA/CRD2 His EP Cath: Omid Del Angel/Sahara, 8Fx2: Pentaray changed to Ablation Biosense Irrigated Thermocool ST/SF, 8F: CS Catheter (EZ Steer) Once catheters were in position in RV, RA, CS, we decided to proceed with EP study. At baseline, her AH was 90ms and HV 51ms. Following this, we did LV pacing which demonstrated concentric activation with earliest atrial activation noted on the His area suggestive of conduction retrograde through the fast pathway. This ruled out left lateral pathway. Thereafter, I decided to perform a ventricular extrastimuli. This was performed in the mid RV. Retrograde bundle-branch block was noted and this confirmed the absence of any retrograde pathway. VERP was noted at 600/220ms. Thereafter, I decided to perform atrial pacing from HRA. Patient was noted to have a few runs of atrial tachycardia of 2-3 beats with the earliest signal noted in the HRA. This was most suggestive of an atrial tachycardia and thereafter I continued to perform this and AERP was noted 600/180ms with no AV block. CS pacing was thereafter performed and at 600/290ms pacing, there was evidence of non-sustained atrial tachycardia that was initiated with a tachycardia cycle length of 290 milliseconds. Isuprel was started at 2mcg/min to see whether the same tachycardia could be induced. On Isuprel, there was good heart rate response and again atrial pacing was performed and this tachycardia was induced at 500/250ms again with a TCL of 240 milliseconds with CL variation and wobble. The atrial tachycardia then degenerated into atrial fibrillation. Isuprel was turned off and subsequently the patient converted on her own. Again, we decided to map the tachycardia as I could induce a nonsustained atrial tachycardia for about 2 beats, and this was mapped. Initially when the patient had the atrial tach for a minute, I did multipolar mapping with the PentaRay catheter and this localized the rhythm to the high cristae terminalis before degenerating to atrial fibrillation. Thereafter, with AEST of 500/250ms, I mapped the nonsustained atrial tach and this was again confirmed to be located in the same (more content not included)... Normal [facility] FEMUR LEFT 2 VWSon 1 FEMUR LEFT 2 VWS [facility] Department of Radiology [address] [place] [id number] Patient Name: KAILA VASQUEZ : 1980 Sex: F Age: Race: White Pt. 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 No fracture or dislocation. Excision of previously demonstrated osteochondroma. No radiographic evidence of complication. The osseous structures are well mineralized. IMPRESSION: No radiographic evidence of complication status post excision of distal left femoral osteochondroma. Approved by:Tavon Blockon01/15/2021 11:40 AM. I, Gelacio Pfeiffer,have reviewed the image(s) and agree with the findings in this report. Electronically signed: Gelacio Pfeiffer. Transcribed by: [email or web address], User Resident: TAVON BLOCK Electronically Signed by: GELACIO PFEIFFER @ 01/15/2021 12:03 PM I personally read this/these film(s) with this resident Normal [facility] Comment on above: Order Comment: evalu ate Operative Reporton Operative Report MR#: [id number] S [facility] Pt. Name: Kaila Vasquez Room #: 0C Discharge 12/05/2020 Date: Birthdate: 1980 OPERATIVE REPORT DATE OF SURGERY: 12/05/2020 SURGEON: Pamella Brennan M.D. PREOPERATIVE DIAGNOSIS: Left distal femur osteochondroma. POSTOPERATIVE DIAGNOSIS: Left distal femur osteochondroma. PROCEDURE PERFORMED: Left distal femur osteochondroma excision. GROUNDS FOREMAN: Alaina Edouard M.D. ANESTHESIA: General endotracheal. SPECIMENS: One distal femoral level specimen sent for pathology. IMPLANTS: None. ESTIMATED BLOOD LOSS: Per anesthesia report. TOURNIQUET TIME: None used. COMPLICATIONS: None. INDICATION FOR PROCEDURE: Mrs. Vasquez is a 40-year-old female who [facility] with a history of chronic left knee pain. Radiographs of the left knee and femur were obtained, which demonstrated a distal femur lateral osteochondroma. Additionally, advanced imaging in the form of CT scan and MRI confirmed the lesion was consistent with that of a solitary osteochondroma without a worrisome cartilage cap or evidence of malignant transformation. The patient reported chronic lateral knee pain that has failed to improved with anti-inflammatories, physical therapy, and steroid injections. After explaining the risks, benefits, and alternatives to operative versus nonoperative management, the patient elected to proceed with a left distal femur osteochondroma excision. Again today on day of surgery, patient informed of all risks, benefits, and alternatives including but not exclusive of bleeding, infection, neuro-vascular damage which may be motor or sensory, partial or complete, permanent or temporary, DVT, pulmonary embolism, , need for additional surgery, continued pain and fatal or catastrophic anesthetic difficulties. Patient understands that no guarantees are made, given or implied. Understands scar may be non-cosmetic, painful, and, or numb. Understands the lesion may recur. Patient understands he may need additional interventions and will need to participate fully in rehab/ exercises to afford her the best change for a satisfactory outcome. Side and site marked and confirmed. Consent signed. DESCRIPTION OF PROCEDURE: The patient was met in the preoperative holding area. Informed consent confirmed. The operative extremity was marked. The patient was taken back to the operating room and placed supine on the operating room table. General anesthesia was induced without complications. The left lower extremity was then prepped and draped in standard sterile fashion. We began our procedure with a surgical time-out to confirmed the correct operative site, procedure, laterality. We began with x-ray images in AP and lateral views, which re-demonstrated an extraarticular lateral osteochondroma. We marked out our direct lateral incision based over the osteochondroma, which was readily palpable under the subcutaneous tissues. A 5 cm lateral incision was made with a 15-blade scalpel. The subcutaneous tissues were dissected and meticulous hemostasis was achieved. Dissection proceeded down to the level of the IT band. Once the IT band was encountered and well visualized, a small opening was made distally and extended proximally with Bovie electrocautery. We then incised the IT band in line with our incision. This exposed the underlying vastus lateralis, which was elevated off the lateral intermuscular septum and retracted anteriorly. Hemostasis was achieved and the underlying osteochondroma was readily visualized. We continued our dissection circumferentially around the osteochondroma stalk and cap, until it was free of any/ all muscular or soft tissue attachments. Once fully exposed, an osteotome was placed at the base of the stalk and x-rays were obtained to confirm the level of our excision. Using an osteotome and mallet, the osteochondroma was removed en bloc and sent for pathology. X-rays were obtained, identifying successful excision of the osteochondroma. We smoothed the edges of the lateral femoral cortex with a curved osteotome and a small bone rasp. The lateral femoral cortex was inspected and was noted to be intact and not fractured during removal. Final C-arm fluoroscopic x-ray images were obtained in AP and lateral views demonstrating satisfactory excision of the osteochondroma. Our attention turned to closure. The wound was thoroughly irrigated with water, followed by normal saline and Ancef mixture. Hemostasis was found to be adequate and the IT band was closed with 0 Vicryl. Subcutaneous tissues were closed with 0 Vicryl followed by 3-0 Vicryl. The skin was closed in a running fashion with a 3-0 Monocryl. Steri-Strips placed and soft dry dressings were then applied. The patient was placed an Mehul wrap and knee immobilizer. The patient was awoken from anesthesia and transferred to the PACU i (more content not included)... Normal [facility] FEMUR LEFT 2 Son FEMUR LEFT 2 S [facility] Department of Radiology [address] [place] [id number] Patient Name: KAILA VASQUEZ : 1980 Sex: F Age: Race: White Pt. Location: OUTP Patient Status: O Ordered Date: 12/05/2020 7:30:00 AM Completed Date: 12/05/2020 10:05 AM Requesting Provider: PAMELLA BRENNAN Attending Provider: PAMELLA BRENNAN Report Copy To: Signs & Symptoms: LEFT DISTAL FEMUR OSTEOCHONDROMA EXCISION History: Comments: LEFT DISTAL FEMUR OSTEOCHONDROMA EXCISION Exam: FEMUR LEFT 2 [facility] FEMUR LEFT 2 [facility] 12/05/2020 10:05 AM CLINICAL INDICATIONS: LEFT DISTAL FEMUR OSTEOCHONDROMA EXCISION TECHNOLOGIST COMMENTS: Left distal femur Osteochondroma excision .39 min. fluoro. time used by Dr. Brennan QUESTION FOR THE RADIOLOGIST: LEFT DISTAL FEMUR OSTEOCHONDROMA EXCISION PROTOCOL: AP(PA) and Lateral views were obtained. COMPARISON: 11/07/2020 FINDINGS: 44 images were obtained in the OR using fluoroscopic guidance during excision of left distal femur osteochondroma. Total fluoroscopy time is 0.39 minutes. Total radiation exposure is 2.82 mGy. Images are referred to the clinical service for correlation. IMPRESSION: Images are obtained for documentation purposes. Electronically signed: Ching Garcia. Transcribed by: [email or web address], User Resident: Electronically Signed by: CHING GARCIA @ 12/05/2020 11:54 AM Normal [facility] Comment on above: Order Comment: LEFT DISTAL FEMUR OSTEOCHONDROMA EXCISION POC GLUCOSE LABon 12-05-2020 Glucose [Mass/Vol] 108 mg/dL High 70-100 [facility] Comment on above: Performed By: #### 8 [id number] ####[facility].[address] *MRSA/MSSA DNA NASALon 11-28 *MRSA/MSSA DNA NASAL Clinical Report: (D ) Specimen: NASAL SWAB Collected: 11/28/2020 13:22 Status: Final Last Updated: 2020 13:05 MSSA DNA (Final) Negative MRSA DNA (Final) Negative Normal [facility] Comment on above: Performed By: #### 3 1595 ####[facility].[address] APTTon 11-28-2020 aPTT Coag (Bld) [Time] 29.1 s Normal 25.0-35.0 [facility] Comment on above: Result Comment: ALL RESULTS MUST BE INTERPRETED WITH RESPECT TO BLOOD DRAWING ARTIFACT OR DILUTION ERROR OF ANTICOAGULANT AT THE TIME OF SAMPLING. THE APTT SHOULD NOT BE USED TO MONITOR UNFRACTIONATED HEPARIN THERAPY, THIS LABORATORY NO LONGER HAS AN ESTABLISHED THERAPEUTIC RANGE BASED ON THE APTT. IT IS RECOMMENDED THAT THE [facility] - HEPARIN ASSAY (ANTI-XA ACTIVITY) BE USED FOR THIS PURPOSE. Performed By: #### 5 [id number], [id number] #### [facility] [address] [place] [address], [facility] BASIC METABOLIC PANELon 11-07 Calcium [Mass/Vol] 9.5 mg/dL Normal 8.6-10.3 [facility] Comment on above: Performed By: #### 0 0071 #### [facility] [address] [place] [address], [facility] Chloride [Moles/Vol] 104 mmol/L Normal 98-107 [facility] Comment on above: Performed By: #### 0 0071 #### [facility] [address] [place] [address], [facility] CO2 [Moles/Vol] 28 mmol/L Normal 21-31 [facility] Comment on above: Performed By: #### 0 0071 #### [facility] [address] [place] [address], [facility] Creatinine [Mass/Vol] 0.90 mg/dL Normal 0.60-1.20 [facility] Comment on above: Performed By: #### 0 0071 #### [facility] [address] [place] [address], [facility] GFR/1.73 sq M.predicted among blacks MDRD (S/P/Bld) [Vol rate/Area] mL/min/{1.73_m2} Normal >60 [facility] Comment on above: Performed By: #### 0 0071 #### [facility] [address] [place] [address], [facility] GFR/1.73 sq M.predicted among non-blacks MDRD (S/P/Bld) [Vol rate/Area] mL/min/{1.73_m2} Normal >60 [facility] Comment on above: Performed By: #### 0 0071 #### [facility] [address] [address], [facility] Glucose [Mass/Vol] 132 mg/dL High 70-100 [facility] Comment on above: Performed By: #### 0 0071 #### [facility] [address] [facility] [facility] [place] [id number], [facility] Potassium [Moles/Vol] 3.8 mmol/L Normal 3.5-5.1 [facility] Comment on above: Performed By: #### 0 0071 #### [facility] [address] Sodium [Moles/Vol] 138 mmol/L Normal 136-145 [facility] Comment on above: Performed By: #### 0 0071 #### [facility] [address] Urea nitrogen [Mass/Vol] 9 mg/dL Normal 7-25 [facility] Comment on above: Performed By: #### 0 0071 #### [facility] [address] CBC W/DIFFon 11-28-2020 ABS IMM GRANS 0.0 10*3/uL Normal 0.0-0.2 [facility] Comment on above: Performed By: #### 5 3 ####[facility] ABS NEUTROPHILS 7.2 10*3/uL Normal 1.6-7.6 [facility] Comment on above: Performed By: #### 5 102 ####[facility] Basophils (Bld) [#/Vol] 0.1 10*3/uL Normal 0.0-0.2 [facility] Comment on above: Performed By: #### 5 102 ####[facility] Basophils/100 WBC (Bld) 0.6 % Normal 0.0-1.0 [facility] Comment on above: Performed By: #### 5 102 ####[facility] Eosinophils (Bld) [#/Vol] 0.3 10*3/uL Normal 0.0-0.5 [facility] Comment on above: Performed By: #### 5 3 ####[facility] [place] [address], [place] Eosinophils/100 WBC (Bld) 2.6 % Normal 0.0-6.0 [facility] Comment on above: Performed By: #### 5 0103 ####[facility] Erythrocyte distribution width (RBC) [Ratio] 12.6 % Normal 11.5-15.0 [facility] Comment on above: Performed By: #### 0103 ####[facility] Hematocrit (Bld) [Volume fraction] 42.6 % Normal 36.0-45.0 [facility] Comment on above: Performed By: #### 3 ####[address] Hemoglobin (Bld) [Mass/Vol] 14.4 g/dL Normal 12.0-15.0 [facility] Comment on above: Performed By: #### 3 ####[address] IMMATURE GRANS 0.3 % Normal 0.0-1.0 [facility] Comment on above: Performed By: #### 3 ####[place] [id number] [address] Lymphocytes (Bld) [#/Vol] 2.1 10*3/uL Normal 1.2-4.0 [facility] Comment on above: Performed By: #### 3 ####[place] [id number] [address] Lymphocytes/100 WBC (Bld) 20.2 % Normal 20.0-45.0 [facility] Comment on above: Performed By: #### 3 ####[facility] [place] [address], [facility] MCH (RBC) [Entitic mass] 33.6 pg High 27.0-33.0 [facility] Comment on above: Performed By: #### 5 0103 ####[facility]3000 [facility].[address] MCHC (RBC) [Mass/Vol] 33.8 g/dL Normal 32.0-35.0 [facility] Comment on above: Performed By: #### 5 0103 ####[facility] [facility].[address] MCV (RBC) [Entitic vol] 99.5 fL High 82.0-98.0 [facility] Comment on above: Performed By: #### 5 0103 ####[facility] Monocytes (Bld) [#/Vol] 0.7 10*3/uL Normal 0.1-1.0 [facility] Comment on above: Performed By: #### 5 0103 ####[facility] [facility].[address] MONOS 6.4 % Normal 5.0-12.0 [facility] Comment on above: Performed By: #### 5 3 ####[facility] [facility].[address] Neutrophils/100 WBC (Bld) 69.9 % Normal 40.0-72.0 [facility] Comment on above: Performed By: #### 5 3 ####[facility] Nucleated RBC/100 WBC (Bld) [Ratio] 0 % Normal 0-0 [facility] Comment on above: Performed By: #### 5 3 ####[facility] [facility] [place] [address], [place] PLAT CNT 346 10*3/uL Normal 150-400 [facility] Comment on above: Performed By: #### 5 0103 ####[facility] RBC (Bld) [#/Vol] 4.28 10*6/uL Normal 3.80-5.00 [facility] Comment on above: Performed By: #### 5 0103 ####[facility] WBC (Bld) [#/Vol] 10.24 10*3/uL Normal 4.00-10.60 [facility] Comment on above: Performed By: #### 5 0103 ####[facility] PROTHROMBIN TIMEon 1 INR Coag (PPP) [Relative time] 0.99 {INR} Normal 0.91-1.16 [facility] Comment on above: Result Comment: ACCC P RECOMMENDED INR FOR WARFARIN THERAPY -------- ------- CONDITION INR PROPHYLAXIS OF VENOUS THROMBOSIS 2-3 (HIGH-RISK SURGERY) TREATMENT OF VENOUS THROMBOSIS 2-3 TREATMENT OF PULMONARY EMBOLISM 2-3 PREVENTION OF SYSTEMIC EMBOLISM: 2-3 ACUTE MYOCARDIAL INFARCTION TISSUE HEART VALVES VALVULAR HEART DISEASE ATRIAL FIBRILLATION RECURRENT SYSTEMIC EMBOLISM MECHANICAL HEART VALVE 2.5-3.5 FROM: ORAL ANTICOAGULANTS. MECHANISM OF ACTION, CLINICAL EFFECTIVENESS, AND OPTIMAL THERAPEUTIC RANGE. CHEST 1995;108:231S-246S. Performed By: #### 5 7307, [id number] #### [facility] [address] [place] [address], [place] PT Coag (PPP) [Time] 13.1 s Normal 12.3-14.8 [facility] Comment on above: Result Comment: ALL RESULTS MUST BE INTERPRETED WITH RESPECT TO BLOOD DRAWING ARTIFACT OR DILUTION ERROR OF ANTICOAGULANT AT THE TIME OF SAMPLING. Performed By: #### 5 7307, [id number] #### [facility] [address] [place] [address], [facility] TYPE AND CROSSMATCHon 2020 ABO INTERPRETATION O Normal [facility] Comment on above: Performed By: #### 6 2594 #### [facility] [address] [place] [address], [place] RH INTERPRETATION Positive Normal [facility] Comment on above: Performed By: #### 6 2594 #### [facility] [address] [place] [address], [place] URINALYSISon 11-28-2020 Appearance (U) CLEAR Normal CLEAR [facility] Comment on above: Performed By: #### 1 0008 #### [facility] [address] [place] [address], [place] Bilirubin Ql (U) Negative Normal NEGATIVE [facility] Comment on above: Performed By: #### 1 0008 #### [facility] [address] [place] [address], [place] Color (U) YELLOW Normal YELLOW [facility] Comment on above: Performed By: #### 1 0008 #### [facility] [address] [place] [address], [place] Glucose Ql (U) Negative Normal NEGATIVE [facility] Comment on above: Performed By: #### 1 0008 #### [facility] [address] [place] [address], [place] Hemoglobin Ql (U) Negative Normal NEGATIVE [facility] Comment on above: Performed By: #### 1 0008 #### [facility] [address] [facility] [place] [address], [facility] KETONE Negative Normal NEGATIVE [facility] Comment on above: Performed By: #### 1 0008 #### [facility] [address] [address], [place] LEUK JORDAN Negative Normal NEGATIVE [facility] Comment on above: Performed By: #### 1 0008 #### [facility] [address] [facility] [place] [address], [facility] MICRO NOT DONE Normal [facility] Comment on above: Result Comment: Micr oscopics not performed on urines with negative chemical reactions unless requested in original order Performed By: #### 1 0008 #### [facility] [address] [facility] [place] [address], [facility] Nitrite Ql (U) Negative Normal NEGATIVE [facility] Comment on above: Performed By: #### 1 0008 #### [facility] [address] [facility] [place] [address], [facility] pH (U) 6.0 [pH] Normal 5.0-8.0 [facility] Comment on above: Performed By: #### 1 0008 #### [facility] [address] [facility] [place] [address], [facility] Protein Ql (U) Negative Normal NEGATIVE [facility] Comment on above: Performed By: #### 1 0008 #### [facility] [address] [facility] [place] [address], [facility] SPEC GRAV 1.018 Normal 1.015-1.020 [facility] Comment on above: Performed By: #### 1 0008 #### [facility] [address] [facility] [place] [address], [facility] Vital Signs Date Time Vital Sign Value Performing Clinician Faci lity 08-24-2022 13:44-0500 Body height 162.6 cm Janell Sy MD Work Phone: [facility] 08-24-2022 13:44-0500 Body weight 112.95 kg Janell Sy MD Work Phone: [facility] 08-24-2022 13:44-0500 Diastolic blood pressure 73 mm[Hg] Janell Sy MD Work Phone: [facility] 08-24-2022 13:44-0500 Heart rate 88 /min Janell Sy MD Work Phone: [facility] 08-24-2022 13:44-0500 SaO2% (BldA) [Mass fraction] 98 % Janell Sy MD Work Phone: [facility] 08-24-2022 13:44-0500 Systolic blood pressure 112 mm[Hg] Janell Sy MD Work Phone: [facility] 08-05-2022 10:00-0500 Diastolic blood pressure 88 mm[Hg] Carmen Seese PT Work Phone: [facility] 08-05-2022 10:00-0500 Heart rate 78 /min Carmen Seese PT Work Phone: [facility] 08-05-2022 10:00-0500 Systolic blood pressure 134 mm[Hg] Carmen Seese PT Work Phone: [facility] 07-07-2022 08:12-0500 Body height 162.6 cm Glenroy Poulhal [employer] SANDB[employer]ER.[employer]PER[employer] Work Phone: [facility] 07-07-2022 08:12-0500 Body weight 112.04 kg Glenroy Poulhal [employer]ONE SANDB[employer]ER.SUPERVISOR [employer] Work Phone: [facility] 07-07-2022 08:12-0500 Diastolic blood pressure 88 mm[Hg] Glenroy Poulhal STONE SANDBLASTER.SUPERVISOR [employer] Work Phone: [facility] 07-07-2022 08:12-0500 Heart rate 82 /min Glenroy Syed STONE SANDBLASTER.SUPERVISOR [employer] Work Phone: [facility] 07-07-2022 08:12-0500 SaO2% (BldA) [Mass fraction] 98 % Glenroy Syed STONE SANDBLASTER.SUPERVISOR [employer] Work Phone: [facility] 07-07-2022 08:12-0500 Systolic blood pressure 134 mm[Hg] Glenroy Syed STONE SANDB[employer]ER.SUPERVISOR [employer] Work Phone: [facility] 12-09-2021 13:59-0400 Blood Pressure Location Pamella NILL [facility] [place] 12-09-2021 13:59-0400 Diastolic blood pressure 78 mm[Hg] Pamella NILL [facility] 12-09-2021 13:59-0400 Heart rate 68 /min Pamella NILL [facility] [place] 12-09-2021 13:59-0400 Respiratory rate 16 /min Pamella NILL [facility] 12-09-2021 13:59-0400 Systolic blood pressure 118 mm[Hg] Pamella NILL [facility] [place] Encounters Encounter Date Encounter Type Care Provider Facility Start: 12-02-2023 ambulatory [facility] Start: 10-25-2023 End: 10-25-2023 ambulatory IRMA SUDHA Not Available Start: 08-25-2023 End: 08-25-2023 ambulatory IRMA SUDHA Not Available Start: 12-21-2022 End: 12-21-2022 ambulatory [facility] Start: 12-15-2022 End: 12-15-2022 ambulatory [facility] Start: 12-15-2022 End: 12-15-2022 ambulatory [facility] Start: 10-26-2022 End: 10-27-2022 ambulatory MERT LAMA Facility:[facility] Start: 10-20-2022 ambulatory MERT LAMA Facility:[facility] Start: 10-15-2022 Orders Only Glenroy Syed APRN.SUPER[employer] Work Phone: Neurology Comment on above: 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 (Primary Dx) Start: 10-14-2022 End: 10-14-2022 ambulatory [facility] Facility[facility] Start: 09-09-2022 ambulatory Mauri Ross RT(R) Ra diology Comment on above: Radiology MRI Start: 09-09-2022 Patient encounter procedure Mauri Ross RT(R) [facility]TH [place] Start: 09-02-2022 End: 09-02-2022 ambulatory ELENA GUAN Facility: Start: 08-24-2022 End: 08-24-2022 ambulatory GLENROYNIK SYED Facility:[facility] Start: 08-24-2022 End: 08-24-2022 Patient encounter procedure Janell Sy MD Work Phone: Cardiology Comment on above: KANG (obstructive sle ep apnea) (Primary Dx); Dizziness; Palpitations; Obesity, morbid, BMI 40.0-49.9 (HCC); SVT (supraventricular tachycardia) (HCC); Chronic fatigue; Vitamin D deficiency Start: 08-20-2022 Orders Only Len Shea APRN.SUPER[employer] Work Phone: Neurology Comment on above: Ocular migraine (Dinora andres Dx) Start: 08-19-2022 End: 08-19-2022 ambulatory [facility] Neurology Comment on above: Neuro Ophthalmologis t Start: 08-16-2022 ambulatory [facility] Neurology Comment on above: MRI Start: 08-12-2022 End: 08-12-2022 [facility] Start: 08-12-2022 End: 08-12-2022 ambulatory Carmen Johnson PT Work Phone: Physical Therapy Comment on above: Dizziness (Primary D x); Cervicalgia; Headaches Start: 08-05-2022 End: 08-05-2022 ambulatory [facility] Start: 08-05-2022 End: 08-05-2022 ambulatory Carmen Martin PT Work Phone: Physical Therapy Comment on above: Dizziness (Primary D x); Cervicalgia; Headaches Start: 07-29-2022 End: 07-29-2022 ambulatory WM RODRIGUEZ Facility:[facility] Start: 07-21-[address] MERT LAMA Facilit y:[facility] Start: 07-07-2022 Telephone encounter Glenroy rodriguez [employer]ONE SANDB[employer]ER.SUPER[employer]OR [employer] Work Phone: Neurology Comment on above: Received Outside Med ical Records Start: 07-07-2022 End: 07-07-2022 ambulatory GLENROY SYED Facility:[facility] Start: 07-07-2022 End: 07-07-2022 Patient encounter procedure Glenroy Syed [employer]ONE SANDB[employer]ER.SUPER[employer]OR [employer] Work Phone: Neurology Comment on above: Dizziness (Primary D x); Migraine aura without headache; Palpitations; Chronic fatigue; Vision changes; Disturbance of skin sensation Start: 06-14-2022 End: 06-15-[address] MERT LAMA Facility:[facility] Start: 04-14-2022 End: 04-15-[address] MERT LAMA Facility:[facility] Start: 03-22-2022 End: 03-22-2022 ambulatory [place] Facility:[facility] Start: 03-16-2022 End: 03-17-[address] MERT LAMA Facility:[facility] Start: 03-03-2022 End: 03-03-2022 ambulatory WM RODRIGUEZ Facility:[facility] Start: 02-26-2022 End: 02-26-2022 ambulatory MW RODRIGUEZ Facility:[facility] Start: 01-31-2022 End: 01-31-[address] PEG AGUIRRE Facility:[facility] Start: 12-30-2021 End: 12-30-[address] PAMELLA SANABRIA Facility:[facility] Start: 12-09-2021 End: 12-09-2021 Patient encounter procedure Pamella SANABRIA General Surgery Daniele/Jessie Levy Start: 11-25-2021 End: 11-26-[address] MERT LAMA Facility:[facility] Start: 11-23-2021 Encounter for genera l adult medical examination without abnormal findings DR MERT LAMA [facility] [place] Start: 11-19-2021 End: 11-20-[address] MERT LAMA Facility:[facility] Start: 11-19-2021 End: 11-20-2021 Encounter for general adult medical examination without abnormal findings DR MERT LAMA Facility:[facility] Start: 11-17-2021 End: 11-18-2021 ambulatory MERT LAMA Facility:[facility] Start: 11-14-2021 End: 11-15-2021 ambulatory ANUABEL GONZÁLESS Facility:[facility] Start: 10-08-2021 End: 10-08-2021 ambulatory WM ALEJANDRELY Facility:[facility] Start: 06-17-2021 End: 06-18-2021 ambulatory MERT LAMA Facility:[facility] Start: 04-16-2021 End: 05-23-2021 ambulatory MERT LAMA Facility:[facility] Start: 12-05-2020 End: 12-06-2020 ambulatory MERT LAMA Facility:[facility] Procedures Date Procedure Procedure Detail Performing Clinician Start: 08-24-2022 Ecg routine ecg w/le ast 12 lds i&r only [facility] Provider Start: 12-05-2020 ANESTH KNEE AREA SURGERY MERT LAMA Start: 12-05-2020 REMOVE FEMUR LESION CARLOS KENDRICK BRENNAN Start: 11-28-2020 Antibody screen MERT VACAMichelle DOAr Comment on above: Performed By: #### [id number] #### [address] Start: 11-04-2020 Cystourethroscopy wi th dilation of urethral stricture Pamella ZIMMERMANL Abdominal hysterectomy Wale el ELSIEL Bilateral complete salpingectomy Pamella ZIMMERMANL Cardiac radiofrequen cy ablation using ultrasound guidance Pamella ZIMMERMANL Cholecystectomy Pamella ZIMMERMANL Excision of osteochondroma M nicolle DANIELE History of ankle surgery Carlos SANABRIA Plan of Treatment Date Care Activity Detail Author Start: 08-08-2022 DEPRESSION ASSESSMENT DEPRESSION ASS [facility] Start: 07-07-2022 End: 09-06-2022 25-hydroxyvitamin D3 [Mass/volume] in Serum or Plasma [facility] Work Phone: Comment on above: Expected: 07/07/2022 , Expires: 09/06/2022 Start: 07-07-2022 End: 09-06-2022 ESEQUIEL BY IFA WITH REFLEX [facility] Work Phone: Comment on above: Expected: 07/07/2022 , Expires: 09/06/2022 Start: 04-08-2022 Influenza vaccination INFLUENZA (#1) [facility] Start: 08-08-2021 DEPRESSION ASSESSMENT DEPRESSION ASS [facility] Start: 11-05-2020 COVID-19 VACCINE (3 - Booster for Giancarlo series) COVID-19 VACCINE (3 - Booster for Giancarlo series) [facility] Start: 2012 HPV TESTING HPV TESTING [facility] Start: 11-30-2003 PAP TESTING PAP TESTING [facility] Start: 2001 Urine microalbumin profile DTA P,TDAP,TD (1 - Tdap) [facility] Start: 2000 HEPATITIS C SCREENING HEPATITIS C [facility] Start: 2000 HIV SCREENING HIV SCREENING [facility] Start: 1982 HEPATITIS B (1 of 3 - 3-dose series) HEPATITIS B (1 of 3 - 3-dose series) [facility] End: 08-24-2023 ECG COMPLETE ECG COMPLETE ECG Routine Dizziness Palpitations Obesity, morbid, BMI 40.0-49.9 (HCC) 1 Occurrences starting 08/24/2022 until 08/24/2023 [facility] Work Phone: Comment on above: 1 Occurrences starti ng 08/24/2022 until 08/24/2023 ECG COMPLETE ECG COMPLETE ECG 08/24/2022 1:56 PM EST [facility] End: 07-07-2023 Echocardiography ECHO Cardiology Routine Palpitations 1 Occurrences starting 07/07/2022 until 07/07/2023 [facility] Work Phone: Comment on above: 1 Occurrences starti ng 07/07/2022 until 07/07/2023 End: 08-06-2023 Mri brain brain stem w/o w/contrast material MRI BRAIN WO/W IVCON Radiology Routine Dizziness Vision changes 1 Occurrences starting 07/07/2022 until 08/06/2023 [facility] Work Phone: Comment on above: 1 Occurrences starti ng 07/07/2022 until 08/06/2023 End: 09-15-2023 Mri spinal canal cervical w/o & w/contr matrl MRI CERVICAL SPINE WO/W IVCON Radiology Routine Dizziness Vision changes Cervicalgia Disturbance of skin sensation 1 Occurrences starting 08/16/2022 until 09/15/2023 [facility] Work Phone: Comment on above: 1 Occurrences starti ng 08/16/2022 until 09/15/2023 [facility] Immunizations Immunization Date Immunization Notes Care Provider Tayo phillips 09-10-2020 SARS-CoV-2 (COVID-19 ) Ad26 vaccine, recombinant Pamella NILL [facility] [place] 08-12-2020 SARS-CoV-2 (COVID-19 ) Ad26 vaccine, recombinant Pamella NILL [facility] [place] Payers Date Payer Category Payer Unknown [id number] 2021 Unknown [id number] 1982 Unknown [id number] 2.16.8 [id number] 1982 Unknown [id number] 2.16.8 40.1.724618.3.579.2.647 1982 Unknown [id number] 2.16.8 40.1.681509.3.579.2.647 1982 Unknown [id number] 2.16.8 40.1.900956.3.579.2.647 1982 Unknown [id number] 2.16.84 0.1.902330.3.579.2.593 1982 Unknown [id number] 2.16.84 0.1.621941.3.579.2.593 1982 Unknown [id number] 2.16.84 0.1.790479.3.579.2.593 1982 Unknown [id number] 2.16.84 0.1.837447.3.579.2.593 1982 Unknown [id number] 2.16.84 0.1.142267.3.579.2.593 1982 Unknown [id number] 2.16.84 0.1.073688.3.579.2.593 1982 Unknown [id number] 2.16.84 0.1.768940.3.579.2.593 1982 Unknown [id number] 2.16.84 0.1.939410.3.579.2.593 1982 Unknown [id number] 2.16.84 0.1.942391.3.579.2.593 1982 Unknown [id number] 2.16.84 0.1.127853.3.579.2.593 1982 Unknown [id number] 2.16.84 0.1.184651.3.579.2.593 1982 Unknown [id number] 2.16.84 0.1.792091.3.579.2.593 1982 Unknown [id number] 2.16.84 0.1.053291.3.579.2.593 1982 Unknown [id number] 2.16.84 0.1.250806.3.579.2.593 1982 Unknown [id number] 2.16.84 0.1.829104.3.579.2.593 1982 Unknown [id number] 2.16.8 40.1.895977.3.579.2.727 1982 Unknown [id number] 2.16.84 0.1.621139.3.579.2.1259 1982 Unknown [id number] 2.16.84 0.1.299943.3.579.2.1259 1959 Unknown [id number] Social History Date Type Detail Facility Start: 12-09-2021 End: 07-07-2022 Tobacco smoking status Never smoked tobacco (finding) [facility] Tobacco smoking status Never [facility] Sex Assigned At Female Genera l [facility] [place] Start: 07-07-2022 Tobacco use and exposure Smokeless tobacco non-user [facility] Start: 1980 Sex Assigned At Not on file C [facility] Start: 06-27-2022 End: 07-07-2022 Exposure to SARS-CoV-2 (event) Not sure [facility] Start: 08-24-2022 Alcohol intake Current drinke r of alcohol (finding) [facility] Start: 08-24-2022 Alcohol Comment occasionally 1 -2 times a months 2-3 drinks [facility] Clinical Notes 12-30-2021 to 12-21-2022 Mauri Ross, RT(R) - 09/09/2022 2:11 PM Marilyn Sy MD - 08/24/2022 1:45 PM ESTTelephone Encounter - Glenroy Syed APRN.SUPERVISOR CONTACT LENS - 08/16/2022 8:28 AM Elio Johnson PT - 08/12/2022 2:51 PM EST Note Date & Type Note Facility 12-21-2022 Note Date of Telehealth V isit: 12/21/2022 The patient was notified that using 3rd democrat telecommunication application (e.g., [employer]) is not HIPPA compliant and may carry some privacy risks. Yes The visit was conducted [id number] with the use of audio and video technology [email or web address] between patient and provider for a virtual visit. Verbal consent to provide and bill this service was obtained on 12/21/2022. No signature was obtained due to the COVID-19 pandemic. Patient Location: Patient Home I spent 18 minutes of total time on the day of the visit. This time was spent preparing for the visit, obtaining and reviewing any outside history/data, taking a history, performing an exam/evaluation, counseling and educating patient/family about the diagnosis and plan, performing medical decision making, referring to and communicating with other health care referrals, independently interpreting results and documenting in the EMR, and coordinating care. Please see the additional documentation in this note for specific details. [facility] Consult Note Reason for Consultation: Palpitations Patient feeling like she was having skipped beats and palpitations. Biotronik loop check reveals long RP tachycardia more suggestive of sinus and some episodes of non sustained AT for a few seconds. She also needs KANG eval. Prior HPI: Kaila Vasquez is a 42 y.o. year old seen by Dr. Lama, for c/o palpitations Patient first noted the episode of palpitation that occurred at nighttime valuation sitting in bed resting. She noted a sudden onset of heart rate that increased markedly and make him markedly symptomatic and uncomfortable. She has had episodes on a daily basis to begin with and over repeated of time she noted that the episodes were less frequent occurring at least 2-3 times a week. She subsequently had a Holter monitor that was placed which showed evidence of PVCs with many of the episodes of heart racing correlating with sinus tachycardia. However there were episodes where in the heart rate was reaching 180 bpm which was noted in the afternoon. Patient does not recall any significant exercise regimen at that time. Pt underwent EP study on 06/17/21 and noted to have a few runs of atrial tachycardia of 2-3 beats with the earliest signal noted in the HRA. This was most suggestive of an atrial tachycardia. Isuprel was started at 2mcg/min to see whether the same tachycardia could be induced. On Isuprel, there was good heart rate response and again atrial pacing was performed and this tachycardia was induced at 500/250ms again with a TCL of 240 milliseconds with CL variation and wobble. The atrial tachycardia then degenerated into atrial fibrillation. Initially when the patient had the atrial tach for a minute, I did multipolar mapping with the PentaRay catheter and this localized the rhythm to the high cristae terminalis before degenerating to atrial fibrillation. Since then she has not had any further episodes of tachycardia that she is experience on a daily basis. She had 1 episodes of palpitations that woke her from sleep recently and that was recorded on [employer] electronic device monitor reveals evidence of sinus tachycardia 120 bpm. Pt had COVID recently and since then has been experiencing palpitations. She notes these when she is changing positions and also when she bends down. She has recorded some in her VIOSOsu[employer]r watch and it reveals a long RP tachycardia with a slow onset and slow offset. This is more indicative of sinus tachycardia. She does feel more of these in the setting of adrenaline. EKG 07/07/21 SR EP study 06/17/21 POSTOPERATIVE DIAGNOSIS: 1. Status post successful ablation of SVT consistent with Atrial tachycardia from the high cristae terminalis in right atrium. 2. No Dual AV karen physiology. 3. 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 70 degree tilt for 20 minutes maximum blood pressure 149/89 heart rate 99 minimal blood pressure 112/80 4 mm heart rate 83 that was noted at 6 minutes with palpitations reported. Isuprel challenge with 0.5 mics per minute given over 10 minutes resulted in blood pressure of 154/87 with a heart rate of 134 at 10-minute intervals. Lowest blood pressure notable on this was 125/85 heart rate of 95 noted (more content not included)... [facility] 12-15-2022 Note Patient here c/o sym ptoms. This morning she was sitting at her desk and felt like she had no heartbeat. She wasn't wearing her [employer] watch at the time, as it was charging. She felt her pulse and said it felt very slow. She is shakey, SOB, and having palpitations. C/o chest pain and lightheadedness. Says she notices her SpO2 drops into the 80's at rest per [employer] watch. She has had sleep study done recently but hasn't returned for titration study yet. She was worked up in [facility] ED in Aug 2022 for palpitations. Review of Systems Cardiovascular: Positive for chest pain, dyspnea on exertion, irregular heartbeat, near-syncope and palpitations. Respiratory: Positive for shortness of breath. Neurological: Positive for dizziness, headaches and light-headedness. All other systems reviewed and are negative. [facility] 12-15-2022 Note [place] Cardiology Consul t Note Reason for Consultation: Palpitations felt today 12/15 HPI: Patient was added on today due to having 2 episodes of feeling like she was having skipped beats. I attempted to do a spot check of her Biotronik loop. The 2 events she triggered today looked like sinus beats. She did have events back in November that look like an SVT, it is hard to differentiate which SVT. I discussed with her have her come back in the afternoon when Biotronik is here to get a full interrogation of loop with a printout report. ------- 08/24/[address] rogers HPI: Kaila Vasquez is a 42 y.o. year old seen by Dr. Lama, for c/o palpitations Patient first noted the episode of palpitation that occurred at nighttime valuation sitting in bed resting. She noted a sudden onset of heart rate that increased markedly and make him markedly symptomatic and uncomfortable. She has had episodes on a daily basis to begin with and over repeated of time she noted that the episodes were less frequent occurring at least 2-3 times a week. She subsequently had a Holter monitor that was placed which showed evidence of PVCs with many of the episodes of heart racing correlating with sinus tachycardia. However there were episodes where in the heart rate was reaching 180 bpm which was noted in the afternoon. Patient does not recall any significant exercise regimen at that time. Pt underwent EP study on 06/17/21 and noted to have a few runs of atrial tachycardia of 2-3 beats with the earliest signal noted in the HRA. This was most suggestive of an atrial tachycardia. Isuprel was started at 2mcg/min to see whether the same tachycardia could be induced. On Isuprel, there was good heart rate response and again atrial pacing was performed and this tachycardia was induced at 500/250ms again with a TCL of 240 milliseconds with CL variation and wobble. The atrial tachycardia then degenerated into atrial fibrillation. Initially when the patient had the atrial tach for a minute, I did multipolar mapping with the PentaRay catheter and this localized the rhythm to the high cristae terminalis before degenerating to atrial fibrillation. Since then she has not had any further episodes of tachycardia that she is experience on a daily basis. She had 1 episodes of palpitations that woke her from sleep recently and that was recorded on [employer] electronic device monitor reveals evidence of sinus tachycardia 120 bpm. Pt had COVID recently and since then has been experiencing palpitations. She notes these when she is changing positions and also when she bends down. She has recorded some in her [employer] watch and it reveals a long RP tachycardia with a slow onset and slow offset. This is more indicative of sinus tachycardia. She does feel more of these in the setting of adrenaline. EKG 07/07/21 SR EP study 06/17/21 POSTOPERATIVE DIAGNOSIS: 1. Status post successful ablation of SVT consistent with Atrial tachycardia from the high cristae terminalis in right atrium. 2. No Dual AV karen physiology. 3. 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 70 degree tilt for 20 minutes maximum blood pressure 149/89 heart rate 99 minimal blood pressure 112/80 4 mm heart rate 83 that was noted at 6 minutes with palpitations reported. Isuprel challenge with 0.5 mics per minute given over 10 minutes resulted in blood pressure of 154/87 with a heart rate of 134 at 10-minute intervals. Lowest blood pressure notable on this was 125/85 heart rate of 95 noted at 6-minute. Isuprel was increased to 1 carlos per minute at 5-minute hari. At end of the test in supine position blood pressure 117/82 heart rate of 93 Echocardiogram performed on 05/19/2020 shows normal ejection fraction PMH: No past medical history on file. PSH: No past surgical history on file. SH: Social Determinants of Health Tobacco Use: Not on file Alcohol Use: Not on file Financial Resource Strain: Not on file Food Insecurity: Not on file Transportation Needs: Not on file Physical Activity: Not on file Stress: Not on file Social Connections: Not on file Intimate Partner Violence: Not on file Depression: Not on file Housing Stability: Not on file Meds: (more content not included)... [facility] 10-14-2022 Note HNO ID: [id number] Author: RT Mary(R) Service: ? Author Type: Technologist Type: Progress Notes Filed: 10/14/2022 4:55 PM Note Text: Radiology Service Progress Note PATIENT NAME: Kaila Vasquez DATE OF SERVICE: October 14, 2022 TIME: 4:55 PM PATIENT IDENTITY VERIFICATION COMPLETED USING TWO (2) IDENTIFIERS: Name and Date of confirmed by patient verbally and Name and Date of confirmed by identification band. FALL SCREENING: Has the patient had 2 falls in the last year or 1 fall with injury or currently using an Ambulatory Assistive Device (Walker, Cane, Wheelchair, Crutches, etc.)? No PATIENT GENDER DATA: Female. status: : No status: NO. PATIENT RELEVANT IMPLANT DATA REVIEWED: Yes RADIOLOGY DEPARTMENT: MR; Exam(s) Completed: Head: Multiple Sclerosis Spine: Cervical spine PERIPHERAL IV DATA: Site assessment: Clean,Dry and Intact, Site disposition Discontinued SIGNED BY: RT Mary(R) October 14, 2022 4:55 PM [facility] 10-14-2022 Note HNO ID: [id number] Author: Papa Rea RN Service: Radiology Author Type: Registered Nurse Type: Progress Notes Filed: 10/14/2022 3:21 PM Note Text: Radiology Service Progress Note DATE OF SERVICE: October 14, 2022 TIME: 3:20 PM PATIENT WEIGHT: 240 LBS PATIENT IDENTITY VERIFICATION COMPLETED USING TWO (2) STANDARD IDENTIFIERS: Name and Date of confirmed by patient verbally and Name and Date of confirmed by identification band. FALL SCREENING: Has the patient had 2 falls in the last year or 1 fall with injury or currently using an Ambulatory Assistive Device (Walker, Cane, Wheelchair, Crutches, etc.)? No PATIENT GENDER DATA: Female. status: : No status: NO. ALLERGIES: Reviewed and unchanged CONTRAST ALLERGY: No EXAM: MRI - CONTRAST TYPE: GROUP II IV SITE: Ambulatory: A peripheral IV was started in the Right antecubital site with a Angio cath: 22 gauge. IV SITE APPEARANCE: Clean,Dry and Intact SIGNATURE: Papa Rea RN PATIENT NAME: Kaila Vasquez DATE: October 14, 2022 TIME: 3:20 PM [facility] 09-09-2022 Note HNO ID: [id number] Author: RT Odessa(R) Service: ? Author Type: Technologist Type: Progress Notes Filed: 09/09/2022 2:12 PM Note Text: RADIOLOGY SERVICE PROGRESS NOTE DATE OF SERVICE: September 09, 2022 TIME OF SERVICE: 2 pm EVENT: EXAM/PROCEDURE NOT COMPLETED - Patient became claustrophobic, reaction was: Moderate. ADDITIONAL EVENT DETAILS: No images acquired. Patient to r/s on large bore mri scanner. SIGNATURE: RT Odessa(R) PATIENT NAME: Kaila Vasquez DATE: September 09, 2022 TIME: 2:11 PM PAGER/CONTACT #: [facility] 09-09-2022 History of Present illness Narrative RADIOLOGY SERVICE PROGRESS NOTE DATE OF SERVICE: September 09, 2022 TIME OF SERVICE: 2 pm EVENT: EXAM/PROCEDURE NOT COMPLETED - Patient became claustrophobic, reaction was: Moderate. ADDITIONAL EVENT DETAILS: No images acquired. Patient to r/s on large bore mri scanner. SIGNATURE: RT Odessa(R) PATIENT NAME: Kaila Vasquez DATE: September 09, 2022 TIME: 2:11 PM PAGER/CONTACT #: documented in this encounter [facility] 08-24-2022 Note HNO ID: [id number] Author: Janell Sy MD Service: ? Author Type: Physician Type: Progress Notes Filed: 08/24/2022 2:17 PM Note Text: [facility] [place] SECTION OF REGIONAL CARDIOLOGY OUTPATIENT VISIT DATE August 24, 2022 OUTPATIENT VISIT TYPE NEW PRIMARY CARE PHYSICIAN: To use this Smartlink, specify the provider ID whose address you want to display, e.g., .PROVADDR[1 (where 1 is the provider ID). A written report of the findings and recommendations will be sent to the requesting provider via shared medical record or via [employer]. Patient is being seen at the request of the referring physician for Arrhythmia , Palpitations , and Shortness of breath HISTORY OF PRESENT ILLNESS: Ms. Vasquez is a 41 year old female who has a history of morbid obesity. Obstructive sleep apnea. Palpitations and SVT as well as PVCs. Also inappropriate sinus tachycardia. Anemia. Migraine headaches. Vitamin D deficiency. Fibromyalgia. Chronic neck and back pain. History of palpitations. COVID-19 infection in February 2023. Biotronik loop recorder implant. Cardiac work-up includes: Echocardiogram on 05/19/2020 at [facility] showed normal ejection fraction. No valvular heart disease of any significance. A Holter monitor in 2019 showed basically some PVCs however negative otherwise. Electrophysiology study on 06/17/2021 showed a few runs of atrial tachycardia 2-3 beats. Ablation of SVT consistent with atrial tachycardia at that time. Since after her COVID-19 infection she had more episodes of tachycardia and palpitations. She mentioned that the palpitations could happen at any time. However mainly at noon time when she is sitting for lunch and in the evening when she is trying to go to sleep. She denies any chest pain of any kind however she has some dyspnea with activity. She has no orthopnea or PND. No syncope or near syncope. No lightheadedness or dizziness. No weight gain or loss. However she mentioned that she gained all her weight after hysterectomy about 6 years ago. IMPRESSION: Encounter Diagnosis ICD-10-CM 1. KANG (obstructive sleep apnea) G47.33 2. Dizziness R42 ECG COMPLETE 3. Palpitations R00.2 ECG COMPLETE 4. Obesity, morbid, BMI 40.0-49.9 ([facility]) E66.01 ECG COMPLETE 5. SVT (supraventricular tachycardia) ([facility]) I47.1 6. Chronic fatigue R53.82 7. Vitamin D deficiency E55.9 PLAN AND RECOMMENDATIONS: Tachycardia Mostly inappropriate sinus tachycardia due to patient deconditioning. She does not have any significant arrhythmias after her ablation for her SVT which happened in 2020. That was for atrial tachycardia. It seems that the beta-norbert is helping a little bit but not as much. Recently after COVID-19 infection her symptoms are worse. I would like to change her medicine to a calcium channel norbert and see if that helps better. We can increase her dose as needed. I reassured her about her findings and her symptoms. I do not think that there is anything serious going on at this point. Obstructive sleep apnea She mentioned to me that she needs more testing because her first the study did not show that she is in need for a CPAP or BiPAP machine yet. However they are looking into the issue. Obesity We had a long discussion about the need for more plant-based diet. Less animal-based products. No dairy products. All animal products are inflammatory and can increase the patient's symptoms of from fibromyalgia to fatigue syndrome to all of her issues. Might help actually also with her cardiac symptoms. REVIEW OF SYSTEMS: Chest pain No Shortness of breath Yes Bleeding No Dizziness Yes Syncope No Palpations Yes 10 systems reviewed and are negative with the exception of pertinent positives described in HPI PHYSICAL EXAMINATION: BP 112/73 (BP Site: Left Arm, BP Position: Sitting, BP Cuff Size: Large Adult) Pulse 88 Ht 162.6 cm (5' 4 ) Wt 112.9 kg (249 lb) SpO2 98% BMI 42.74 kg/m? HEENT: normocephalic, EOMI Heart: regular rhythm Lungs: clear to auscultation Abdomen: bowel sounds present Extremities: no edema Musculoskeletal: chest wall nontender Neurological: alert and oriented Psychiatric: appropriate and cooperative Skin: no rash, cellulitis or lesions appreciated CARDIOVASCULAR MEDICINE TESTING: I have personally reviewed ECG, laboratory results, outside medical records, echocardiogram report, and holter report PAST CARDIAC HISTORY: See above. PAST MEDICAL HISTORY Diagnosis Date Anemia Chronic back pain Chronic fatigue syndrome Chronic neck pain Fibromyalgia H/O cardiac radiofrequency ablation Migraines KANG (obstructive sleep apnea) Palpitations Plantar fasciitis PVC (premature ventricular contraction) SVT (supraventricular tachycardia) (HCC) Vitamin D deficiency No past surgical history on file. Social History Tobacco Use Smoking status: Never Smokeless tobacco: Never Vaping U (more content not included)... [facility] 08-24-2022 History of Present illness Narrative Images from the original note were not included. [facility] [place] SECTION OF REGIONAL CARDIOLOGY OUTPATIENT VISIT DATE August 24, 2022 OUTPATIENT VISIT TYPE NEW PRIMARY CARE PHYSICIAN: To use this Smartlink, specify the provider ID whose address you want to display, e.g., .[email or web address] (where 1 is the provider ID). A written report of the findings and recommendations will be sent to the requesting provider via shared medical record or via [employer]. Patient is being seen at the request of the referring physician for Arrhythmia , Palpitations , and Shortness of breath HISTORY OF PRESENT ILLNESS: Ms. Vasquez is a 41 year old female who has a history of morbid obesity. Obstructive sleep apnea. Palpitations and SVT as well as PVCs. Also inappropriate sinus tachycardia. Anemia. Migraine headaches. Vitamin D deficiency. Fibromyalgia. Chronic neck and back pain. History of palpitations. COVID-19 infection in February 2023. Biotronik loop recorder implant. Cardiac work-up includes: Echocardiogram on 05/19/2020 at [facility] showed normal ejection fraction. No valvular heart disease of any significance. A Holter monitor in 2019 showed basically some PVCs however negative otherwise. Electrophysiology study on 06/17/2021 showed a few runs of atrial tachycardia 2-3 beats. Ablation of SVT consistent with atrial tachycardia at that time. Since after her COVID-19 infection she had more episodes of tachycardia and palpitations. She mentioned that the palpitations could happen at any time. However mainly at noon time when she is sitting for lunch and in the evening when she is trying to go to sleep. She denies any chest pain of any kind however she has some dyspnea with activity. She has no orthopnea or PND. No syncope or near syncope. No lightheadedness or dizziness. No weight gain or loss. However she mentioned that she gained all her weight after hysterectomy about 6 years ago. IMPRESSION: Encounter Diagnosis ICD-10-CM 1. KANG (obstructive sleep apnea) G47.33 2. Dizziness R42 ECG COMPLETE 3. Palpitations R00.2 ECG COMPLETE 4. Obesity, morbid, BMI 40.0-49.9 ([facility]) E66.01 ECG COMPLETE 5. SVT (supraventricular tachycardia) ([facility]) I47.1 6. Chronic fatigue R53.82 7. Vitamin D deficiency E55.9 PLAN AND RECOMMENDATIONS: Tachycardia Mostly inappropriate sinus tachycardia due to patient deconditioning. She does not have any significant arrhythmias after her ablation for her SVT which happened in 2020. That was for atrial tachycardia. It seems that the beta-norbert is helping a little bit but not as much. Recently after COVID-19 infection her symptoms are worse. I would like to change her medicine to a calcium channel norbert and see if that helps better. We can increase her dose as needed. I reassured her about her findings and her symptoms. I do not think that there is anything serious going on at this point. Obstructive sleep apnea She mentioned to me that she needs more testing because her first the study did not show that she is in need for a CPAP or BiPAP machine yet. However they are looking into the issue. Obesity We had a long discussion about the need for more plant-based diet. Less animal-based products. No dairy products. All animal products are inflammatory and can increase the patient's symptoms of from fibromyalgia to fatigue syndrome to all of her issues. Might help actually also with her cardiac symptoms. REVIEW OF SYSTEMS: Chest pain No Shortness of breath Yes Bleeding No Dizziness Yes Syncope No Palpations Yes 10 systems reviewed and are negative with the exception of pertinent positives described in HPI PHYSICAL EXAMINATION: BP 112/73 (BP Site: Left Arm, BP Position: Sitting, BP Cuff Size: Large Adult) Pulse 88 Ht 162.6 cm (5' 4 ) Wt 112.9 kg (249 lb) SpO2 98% BMI 42.74 kg/m HEENT: normocephalic, EOMI Heart: regular rhythm Lungs: clear to auscultation Abdomen: bowel sounds present Extremities: no edema Musculoskeletal: chest wall nontender Neurological: alert and oriented Psychiatric: appropriate and cooperative Skin: no rash, cellulitis or lesions appreciated CARDIOVASCULAR MEDICINE TESTING: I have personally reviewed ECG, laboratory results, outside medical records, echocardiogram report, and holter report PAST CARDIAC HISTORY: See above. PAST MEDICAL HISTORY Diagnosis Date Anemia Chronic back pain Chronic fatigue syndrome Chronic neck pain Fibromyalgia H/O cardiac radiofrequency ablation Migraines KANG (obstructive sleep apnea) Palpitations Plantar fasciitis PVC (premature ventricular contraction) SVT (supraventricular tachycardia) (HCC) Vitamin D deficiency No past surgical history on file. Social History Tobacco Use Smoking status: Never Smokeless tobacco: Never Vaping Use Vaping Use: Never used Substance Use Topics Alcohol use: Yes Comment: occasionally 1-2 times a months 2-3 drinks Drug use: Never No family history on file. ALLERGIES No Known Allergies CURRENT MEDICATIONS: aspirin 325 mg tablet^Take 325 mg by mouth once daily.^Disp: ^Rfl: cholecalciferol (VITAMIN D) 1,000 unit tab tablet^Take 1,000 Units by mouth once daily.^Disp: ^Rfl: metoprolol tartrate, short acting, (LOPRESSOR) 50 mg tablet^Take 50 mg by mouth twice daily.^Disp: ^Rfl: documented in this encounter [facility] 08-19-2022 Note HNO ID: [id number] Author: Mauri Chun OD Service: ? Author Type: GRAIN ELEVATOR OPERATOR Type: Progress Notes Filed: 08/19/2022 10:22 AM Note Text: Ocular health is unremarkable with no abnormalities. Normal ON appearance Ophthalmic migraines Glasses Rx given with slight prism [facility] 08-16-2022 Miscellaneous Notes signed We can add it to fully evaluate her symptoms. -LP documented in this encounter [facility] 08-12-2022 Note HNO ID: [id number] Author: Carmen Johnson, PT Service: ? Author Type: Physical Therapist Type: Progress Notes Filed: 08/12/2022 4:02 PM Note Text: Episode Visit Count: 2 Therapist That Will Accept/Oversee The Plan Of Care: Carmen Johnson Start of Care Date: 08/05/22 Onset Date: 02/05/22 Patient Identified by Name and Date of : Yes REHABILITATION AND SPORTS THERAPY PHYSICAL THERAPY TREATMENT NOTE ASSESSMENT: Kaila Vasquez tolerated the session with no issues. She demonstrated difficulty with neck pain, R C1 restricted rotation, R UT scalenes very tight, R SCM TrP. HEP progressed to address today's findings. Pt may benefit from DN. The patient will continue to benefit from ongoing skilled physical therapy to progress toward set goals. PLAN FOR NEXT VISIT: JPE and VMS testing, progress neck, Consider DN SUBJECTIVE: Patient Reason for Visit: Been having a rough last few days, pressure sensation in back of head. Pain: Pain Pain Level: 5 Pain Location: Neck (SO area) Description: Aching;Throbbing;Pressure Frequency: Continuous Post Treatment Pain Post Treatment Pain Level: No Change OBJECTIVE MEASURES WITH LEVEL OF FUNCTION: Spine Observations R Cervical Spine Palpation Tenderness: Upper trapezius;Scalenes;Sternocleidoma stoid;Suboccipitals L Cervical Spine Palpation Tenderness: Upper trapezius;Suboccipitals Cervical Spine ROM Cervical Retraction AROM: Minimal limitation Cervical Flexion AROM: Normal Cervical Extension AROM: Moderate limitation Cervical Side-Bend Right AROM: Normal Cervical Side-Bend Left AROM: Normal Cervical Rotation Right AROM: Minimal limitation (more painful this way) Cervical Rotation Left AROM: Minimal limitation Upper Cervical AROM: C1 restricted R Spine Joint Mobility Joint Mobility Comment: Hypomobile R to L sideglides globally C3-C7; CTJ PA hypomobile Upper Cervical Rotation : Right restriction Upper Cervical Flexion: Bilateral restriction;Right more restricted than left TREATMENT: Therapeutic Exercise: 1: OA nods supine over 3 diameter rolled towel x 10, cues for technique 2: UT and Scalene self stretching R 15s ea. 3: R C1 ROT SNAG x 5 with cues for technique 4: Educated on suspected pathology Skilled Intervention: Patient was educated in proper exercise technique and purpose for exercises. Patient education as noted. Manual Therapy: 1: Manual Neck Assessment as above- RITA tenderness on R reproduces familiar sx. R>L UT, R Scalenes, R global SO and L lateral SO pn. 2: SCM massage with education for self at home 3: Educated on DN consideration Skilled Intervention: Manual skills to improve joint mobility, ROM, and decrease pain. Utilized anatomy knowledge of the therapist, and assessment of patient's response to intervention. Home Exercise Program Assigned: 1: c/s retractions x 10-20 reps 3-5x daily (while at work) 2: OA nods 3 rolled towel x 10 2x daily at home 3: R C1 ROT SNAG 5-10 reps 2x daily 4: SCM self massage R 1 min 1-2x daily 5: Scalene and UT self stretch R>L 15s ea. 2-3x daily Billing Therapeutic Exercise Treatment Minutes: 45 Manual TherapyTreatment Minutes: 15 Total Treatment Time Minutes (timed/untimed): 60 Carmen Johnson, PT [facility] 08-12-2022 History of Present illness Narrative Episode Visit Count: 2 Therapist That Will Accept/Oversee The Plan Of Care: Carmen Johnson Start of Care Date: 08/05/22 Onset Date: 02/05/22 Patient Identified by Name and Date of : Yes REHABILITATION AND SPORTS THERAPY PHYSICAL THERAPY TREATMENT NOTE ASSESSMENT: Kaila Vasquez tolerated the session with no issues. She demonstrated difficulty with neck pain, R C1 restricted rotation, R UT scalenes very tight, R SCM TrP. HEP progressed to address today's findings. Pt may benefit from DN. The patient will continue to benefit from ongoing skilled physical therapy to progress toward set goals. PLAN FOR NEXT VISIT: JPE and VMS testing, progress neck, Consider DN SUBJECTIVE: Patient Reason for Visit: Been having a rough last few days, pressure sensation in back of head. Pain: Pain Pain Level: 5 Pain Location: Neck (SO area) Description: Aching;Throbbing;Pressure Frequency: Continuous Post Treatment Pain Post Treatment Pain Level: No Change OBJECTIVE MEASURES WITH LEVEL OF FUNCTION: Spine Observations R Cervical Spine Palpation Tenderness: Upper trapezius;Scalenes;Sternocleidoma stoid;Suboccipitals L Cervical Spine Palpation Tenderness: Upper trapezius;Suboccipitals Cervical Spine ROM Cervical Retraction AROM: Minimal limitation Cervical Flexion AROM: Normal Cervical Extension AROM: Moderate limitation Cervical Side-Bend Right AROM: Normal Cervical Side-Bend Left AROM: Normal Cervical Rotation Right AROM: Minimal limitation (more painful this way) Cervical Rotation Left AROM: Minimal limitation Upper Cervical AROM: C1 restricted R Spine Joint Mobility Joint Mobility Comment: Hypomobile R to L sideglides globally C3-C7; CTJ PA hypomobile Upper Cervical Rotation : Right restriction Upper Cervical Flexion: Bilateral restriction;Right more restricted than left TREATMENT: Therapeutic Exercise: 1: OA nods supine over 3 diameter rolled towel x 10, cues for technique 2: UT and Scalene self stretching R 15s ea. 3: R C1 ROT SNAG x 5 with cues for technique 4: Educated on suspected pathology Skilled Intervention: Patient was educated in proper exercise technique and purpose for exercises. Patient education as noted. Manual Therapy: 1: Manual Neck Assessment as above- RITA tenderness on R reproduces familiar sx. R>L UT, R Scalenes, R global SO and L lateral SO pn. 2: SCM massage with education for self at home 3: Educated on DN consideration Skilled Intervention: Manual skills to improve joint mobility, ROM, and decrease pain. Utilized anatomy knowledge of the therapist, and assessment of patient's response to intervention. Home Exercise Program Assigned: 1: c/s retractions x 10-20 reps 3-5x daily (while at work) 2: OA nods 3 rolled towel x 10 2x daily at home 3: R C1 ROT SNAG 5-10 reps 2x daily 4: SCM self massage R 1 min 1-2x daily 5: Scalene and UT self stretch R>L 15s ea. 2-3x daily Billing Therapeutic Exercise Treatment Minutes: 45 Manual TherapyTreatment Minutes: 15 Total Treatment Time Minutes (timed/untimed): 60 Carmen Johnson PT documented in this encounter [facility] 08-05-2022 Note HNO ID: [id number] Author: Carmen Johnson PT Service: ? 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 She presents with impairments in ADL's, balance, joint mobility, overall function, patient reported outcome measures, posture, range of motion, soft tissue healing, strength , stress management, symptom management, and tissue tenderness. PROMIS? (Patient-Reported Outcomes Measurement Information System) scores were reviewed and all domains identified as a rehabilitation concern. Prognosis for therapy is Fair due to: clinical presentation;multiple co- morbidities . Examination today NEGATIVE for any vestibular dysfunction or findings. Mild dizziness was reproducible with vibration to SO's bilaterally, SCM Bilaterally R>L. Recommend further assessment of cervical spine and visual motion sensitivity for full program. Multiple co-morbidities present that can impact dizziness as well. Trial of PT to address neck and proprioceptive deficit to assess if any positive changes to sx. She will benefit from skilled therapy services to meet the goals established for this plan of care as noted below. Goals for Episode of Care: created on 08/05/22 through 09/30/22 Patient will demonstrate normal active cervical spine range of motion to restore posture and complete ADLS with trace report of dizziness/imbalance. Patient will be independent with home exercise program and progression. Patient will return to prior level of function with all activities of daily living with trace reports of dizziness. Further neck and proprioceptive assessments to be completed, goals to follow. Patient Goals: Improve dizziness Planned Interventions, Frequency, and Duration: Current Frequency: 1x/week Duration: 8 weeks Total Number of Visits Planned: 8 Planned Treatment Interventions: Therapeutic exercise (88723);Neuromuscular re-education (82570);Manual therapy (74973);Therapeutic activities (26382);Self-snf management (74734);Patient/Family/Caregiver Education;Gait Training (99898);Canalith Repositioning Maneuvers (85974) PLAN FOR NEXT VISIT: Detailed neck exam and JPE testing. Visual Motion Sensitivity Assessment Patient demonstrates good understanding of plan of care and treatment. The above goals and plan of care were discussed and agreed upon by patient/family. SUBJECTIVE: Kaila Vasquez is a 41 year old female seen today for Dizziness with accompanying sx Reports she gets a very intense tingling, pressure and dizziness all at once since she took a puff of inhaler in February post COVID. Usually lasts seconds but can be multiple times in an hr. When bad occurs 1 after the other. Often can be sitting staring and it will happen. Things can move past her and will trigger it. Been a little better in last week. Reports sometimes pulling on her ears has triggered. ED- low dose valium, steroid. Stayed away for a few weeks, then came back. Has had ear issues in past, pressure in ear, feels like having fluid when waking. Onset: After COVID Triggers: nothing specific Concurrent Neck symptoms: bad arthritis, neck pain a long time. Had MRI a while ago- possible compression fx. SO and midneck pain most days. Concurrent FRANCIS symptoms: kaleidoscope vision started with cardiac issues as well, sensitivity to light and sounds. Occ. Accompanies FRANCIS, not normally. Sometimes 1-3 times avg per month. Gets tension FRANCIS a lot of pain back of head and neck. Concurrent Ear/Hearing symptoms: pressure and ear itching. 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 Imbalance: I have really bad balance Last 10 yrs balance has gone bad. No different since dizzy spells started happening. Motion Sensitivity: gets anxiety in car, gets a little disoriented from lines on rd occasionally. Falls has had a fall after this started where hit front of head. Fell up steps hitting floor. History of Concussion: not diagnosed. 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 She presents with impairments in ADL's, balance, joint mobility, overall function, patient reported outcome measures, posture, range of motion, soft tissue healing, strength , stress management, symptom management, and tissue tenderness. PROMIS (Patient-Reported Outcomes Measurement Information System) scores were reviewed and all domains identified as a rehabilitation concern. Prognosis for therapy is Fair due to: clinical presentation;multiple co- morbidities . Examination today NEGATIVE for any vestibular dysfunction or findings. Mild dizziness was reproducible with vibration to SO's bilaterally, SCM Bilaterally R>L. Recommend further assessment of cervical spine and visual motion sensitivity for full program. Multiple co-morbidities present that can impact dizziness as well. Trial of PT to address neck and proprioceptive deficit to assess if any positive changes to sx. She will benefit from skilled therapy services to meet the goals established for this plan of care as noted below. Goals for Episode of Care: created on 08/05/22 through 09/30/22 Patient will demonstrate normal active cervical spine range of motion to restore posture and complete ADLS with trace report of dizziness/imbalance. Patient will be independent with home exercise program and progression. Patient will return to prior level of function with all activities of daily living with trace reports of dizziness. Further neck and proprioceptive assessments to be completed, goals to follow. Patient Goals: Improve dizziness Planned Interventions, Frequency, and Duration: Current Frequency: 1x/week Duration: 8 weeks Total Number of Visits Planned: 8 Planned Treatment Interventions: Therapeutic exercise (68439);Neuromuscular re-education (71970);Manual therapy (01120);Therapeutic activities (82180);Self-snf management (67362);Patient/Family/Caregiver Education;Gait Training (09300);Canalith Repositioning Maneuvers (43610) PLAN FOR NEXT VISIT: Detailed neck exam and JPE testing. Visual Motion Sensitivity Assessment Patient demonstrates good understanding of plan of care and treatment. The above goals and plan of care were discussed and agreed upon by patient/family. SUBJECTIVE: Kaila Vasquez is a 41 year old female seen today for Dizziness with accompanying sx Reports she gets a very intense tingling, pressure and dizziness all at once since she took a puff of inhaler in February post COVID. Usually lasts seconds but can be multiple times in an hr. When bad occurs 1 after the other. Often can be sitting staring and it will happen. Things can move past her and will trigger it. Been a little better in last week. Reports sometimes pulling on her ears has triggered. ED- low dose valium, steroid. Stayed away for a few weeks, then came back. Has had ear issues in past, pressure in ear, feels like having fluid when waking. Onset: After COVID Triggers: nothing specific Concurrent Neck symptoms: bad arthritis, neck pain a long time. Had MRI a while ago- possible compression fx. SO and midneck pain most days. Concurrent FRANCIS symptoms: kaleidoscope vision started with cardiac issues as well, sensitivity to light and sounds. Occ. Accompanies FRANCIS, not normally. Sometimes 1-3 times avg per month. Gets tension FRANCIS a lot of pain back of head and neck. Concurrent Ear/Hearing symptoms: pressure and ear itching. 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 Imbalance: I have really bad balance Last 10 yrs balance has gone bad. No different since dizzy spells started happening. Motion Sensitivity: gets anxiety in car, gets a little disoriented from lines on rd occasionally. Falls has had a fall after this started where hit front of head. Fell up steps hitting floor. History of Concussion: not diagnosed. 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, h/o sciatica Rolls ankles a lot- had ankle stabilization surgery Plantar Fascitis H/o Covid Convergence issue uses prism (computer, book, tired) Relevant Medical Testing CT Brain 03/2022- no acute process Cervical Spine X-ray- Stable developmental variation of C5 versus remote mild compression fracture Patient Goals: Improve dizziness Functional Limitations: Comments Functional Limitation Comments: any task that she is completing during the dizziness is limited at that time (ADL, work, home care) Wears prism in glasses for reading, has convergence issue; R eye affected Prior Level of Function: Independent with restrictions Independent with the following restrictions: related to neck, back pain Intake Information: Prescription present Previous Treatment: None (Has had prior PT for her neck years ago) Falls Interview: Fall without injury in the last year Pain: Pain Pain Level: 5 Pain Location: Neck (SO and paraspinals of mid cervical area) Description: Aching;Tightness Frequency: Continuous Post Treatment Pain Post Treatment Pain Level: No Change PROMIS Scales Higher is Better 08/04/2022 Phys Func - Score 41 (mild dysfunction) Phys Func - Percentile 18 % GH Physical - Score 29.6 (Poor) GH Physical - Percentile 2 % GH Mental - Score 33.8 (Fair) GH Mental - Percentile 5 % Self-Eff Symptom - Score 36 (Low) Self-Eff Symptom - Percentile 8 % T-scores: mean of general population = 50. 5 points is clinically meaningfully difference Percentiles provide an indication of how the patient's score ranks in relation to the general population. Higher percentile rankings indicate better function/quality of life. 50th percentile is the average of the general population and indicates half of respondents had a worse score. T-scores: mean of general population = 50. 5 points is clinically meaningfully difference Percentiles provide an indication of how the patient's score ranks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 brought to the operating room, placed in the left lateral decubitus position. Monitored anesthesia care was provided. Rectal exam was performed which revealed no masses or blood. The scope was inserted into the anal canal. Under direct visualization was advanced. With the aid of abdominal compression, it was advanced to the cecum where cecal markings were clearly identified. There was noted to be a good prep. Upon withdrawal of the scope, mucosal surfaces were carefully examined. There were no mass lesions or polyps. No inflammatory changes or ulcerations. No significant diverticulosis. Within the rectum, there were noted to be some prominent rectal veins. No evidence of bleeding or old or new blood. The scope was retroflexed in the anal canal. There was no significant hemorrhoidal disease. The scope was then withdrawn. Patient tolerated procedure well, was sent to recovery room in good condition. screening colonoscopy at age 47 CC: Mert Lama M.D. Electronically Authenticated and Edited by: Pamella Sanabria MD on 01/06/2022 08:31 AM EDT IF Signed and Approved by: DR PAMELLA SANABRIA . 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 Migraine with aura, without mention of intractable migraine without mention of status migrainosus Palpitations Chronic fatigue Other malaise and fatigue Vision changes Unspecified visual disturbance Disturbance of skin sensation [facility] Dizziness- Primary Dizziness and giddiness Cervicalgia Headaches documented in this encounter [facility]* Diagnosis Dizziness- Primary Dizziness and giddiness Cervicalgia Headaches documented in this encounter [facility] note* Diagnosis Cervicalgia- Primary Dizziness Dizziness and giddiness Vision changes Unspecified visual disturbance Disturbance of skin sensation documented in this encounter [facility] note* Diagnosis Ocular migraine- Primary Other forms of migraine, without mention of intractable migraine without mention of status migrainosus documented in this encounter [facility] note* Diagnosis KANG (obstructive sleep apnea)- Primary Obstructive sleep apnea (adult) (pediatric) Dizziness Dizziness and giddiness Palpitations Obesity, morbid, BMI 40.0-49.9 (HCC) Morbid obesity SVT (supraventricular tachycardia) ([facility]) Other specified cardiac dysrhythmias Chronic fatigue Other malaise and fatigue Vitamin D deficiency Unspecified vitamin D deficiency documented in this encounter [facility] note* Diagnosis Degeneration of intervertebral disc of cervical region with osteophyte of cervical vertebra- Primary documented in this encounter [facility] Discharge instructions No data available for this section General Surgery [facility] Reason for referral (narrative)* Outpatient Procedure (Routine) - Authorized Specialty Diagnoses / Procedures Referred By Contac t Referred To Contact [facility] Diagnoses Dizziness Palpitations Obesity, morbid, BMI 40.0-49.9 (HCC) Procedures ECG COMPLETE ECG ROUTINE ECG W/LEAST 12 LDS W/I&R Janell Sy MD [address] [place] [address] [facility] [place] [address] [place] [id number] Referral ID Status Reason Start Date Expiration Date Visits Requested Visits Authorized [id number] Authorized Auto-Generat ed Referral 08/24/2022 08/24/2023 1 1 [facility] Summary Purpose Family History No Family History Records FoundNo Family History Records FoundNo Family History Records FoundNo Family History Records FoundNo Family History Records FoundNo Family History Records FoundNo Family History Records Found Advance Directives No Advanced Directives Records FoundNo Advanced Directives Records FoundNo Advanced Directives Records FoundNo Advanced Directives Records FoundNo Advanced Directives Records FoundNo Advanced Directives Records FoundNo Advanced Directives Records Found Reason for Referral Specialty Diagnoses / Procedures Referred By Contac t Referred To Contact [facility] [place] Diagnoses Degeneration of intervertebral disc of cervical region with osteophyte of cervical vertebra Procedures CONSULT TO [facility] OFFICE/OUTPATIENT [facility] 60-74 MINUTES Glenroy Syed, STONE SANDBLASTER.SUPERVISOR CONTACT LENS [address] [place] [address] Referral ID Status Reason Start Date Expiration Date Visits Requested Visits Authorized [id number] Authorized PCP Requested Referral 10/15/2022 10/15/2023 1 1 Specialty Diagnoses / Procedures Referred By Contac t Referred To Contact Ophthalmology Diagnoses Ocular migraine Procedures CONSULT TO OPHTHALMOLOGY OFFICE/OUTPATIENT [facility] 60-74 MINUTES Len Shea STONE SANDBLASTER.SUPERVISOR CONTACT [employer]ENS [address] [facility] [id number] [place] [address] Josefina Grimes MD [address] [id number] Referral ID Status Reason Start Date Expiration Date Visits Requested Visits Authorized [id number] Authorized PCP Requested Referral 08/20/2022 08/20/2023 1 1 Specialty Diagnoses / Procedures Referred By Contac t Referred To Contact Cardiology Diagnoses Dizziness Palpitations Procedures CONSULT TO CARDIOLOGY OFFICE/OUTPATIENT [facility] 60-74 MINUTES Glenroy Syed, STONE SANDBLASTER.SUPERVISOR CONTACT LENS [address] [place] [address] Referral ID Status Reason Start Date Expiration Date Visits Requested Visits Authorized [id number] Authorized PCP Requested Referral 2 07/07/2023 1 1 Specialty Diagnoses / Procedures Referred By Contac t Referred To Contact MR IMAGING Diagnoses Dizziness Vision changes Procedures MRI BRAIN WO/W IVCON MRI BRAIN BRAIN STEM W/O W/CONTRAST MATERIAL Glenroy Syed, STONE SANDBLASTER.SUPERVISOR CONTA[employer] [address] [place] [address] Mr Imaging Referral ID Status Reason Start Date Expiration Date Visits Requested Visits Authorized [id number] Authorized Auto-Generat ed Referral 2 08/21/2022 1 1 Specialty Diagnoses / Procedures Referred By Contac t Referred To Contact Ophthalmology Diagnoses Vision changes Procedures CONSULT TO OPHTHALMOLOGY OFFICE/OUTPATIENT NEW HIGH MDM 60-74 MINUTES Glenroy Syed, STONE SANDBLASTER.SUPERVISOR CONTACT LENS [address] [place] [id number] Josefina Grimes MD [address] [phone] Referral ID Status Reason Start Date Expiration Date Visits Requested Visits Authorized [id number] Authorized PCP Requested Referral 2 07/07/2023 1 1 Specialty Diagnoses / Procedures Referred By Contac t Referred To Contact [facility] Diagnoses Palpitations Procedures ECHO ECHO TTHRC R-T 2D W/WOM-MODE COMPL SPEC&COLR D Glenroy Syed, STONE SANDBLASTER.SUPERVISOR CONTACT LENS [address] [address] [id number] [facility] [place] [address] [place] [address] Referral ID Status Reason Start Date Expiration Date Visits Requested Visits Authorized [id number] Authorized Auto-Generat ed Referral 2 07/07/2023 1 1 Additional Source Comments INFORMATION SOURCE (unrecogn ized section and content) DATE CREATED AUTHOR 11/24/2021 [facility] DATE CREATED AUTHOR AUTHOR'S ORGANIZ ATION 07/20/2022 [facility] DATE CREATED AUTHOR AUTHOR'S ORGANIZ ATION 09/06/2022 [facility] DATE CREATED AUTHOR AUTHOR'S ORGANIZ ATION 10/16/2022 [facility] DATE CREATED AUTHOR AUTHOR'S ORGANIZ ATION 02/14/2023 [facility] DATE CREATED AUTHOR AUTHOR'S ORGANIZ ATION 10/26/2023 [facility] DATE CREATED AUTHOR AUTHOR'S ORGANIZ ATION 12/04/2023 [facility] Source Comments (unrecognize d section and content) In the event this informatio n is protected by the Federal Confidentiality of Alcohol and Drug Abuse Patient Records regulations: The Federal rules restrict any use of the information to criminally investigate or prosecute any alcohol or drug abuse patient.[facility] the event this information is protected by the Federal Confidentiality of Alcohol and Drug Abuse Patient Records regulations: The Federal rules restrict any use of the information to criminally investigate or prosecute any alcohol or drug abuse patient.[facility] the event this information is protected by the Federal Confidentiality of Alcohol and Drug Abuse Patient Records regulations: The Federal rules restrict any use of the information to criminally investigate or prosecute any alcohol or drug abuse patient.[facility] the event this information is protected by the Federal Confidentiality of Alcohol and Drug Abuse Patient Records regulations: The Federal rules restrict any use of the information to criminally investigate or prosecute any alcohol or drug abuse patient.[facility] the event this information is protected by the Federal Confidentiality of Alcohol and Drug Abuse Patient Records regulations: The Federal rules restrict any use of the information to criminally investigate or prosecute any alcohol or drug abuse patient.[facility] the event this information is protected by the Federal Confidentiality of Alcohol and Drug Abuse Patient Records regulations: The Federal rules restrict any use of the information to criminally investigate or prosecute any alcohol or drug abuse patient.[facility] the event this information is protected by the Federal Confidentiality of Alcohol and Drug Abuse Patient Records regulations: The Federal rules restrict any use of the information to criminally investigate or prosecute any alcohol or drug abuse patient.[facility] the event this information is protected by the Federal Confidentiality of Alcohol and Drug Abuse Patient Records regulations: The Federal rules restrict any use of the information to criminally investigate or prosecute any alcohol or drug abuse patient.[facility] the event this information is protected by the Federal Confidentiality of Alcohol and Drug Abuse Patient Records regulations: The Federal rules restrict any use of the information to criminally investigate or prosecute any alcohol or drug abuse patient.[facility] the event this information is protected by the Federal Confidentiality of Alcohol and Drug Abuse Patient Records regulations: The Federal rules restrict any use of the information to criminally investigate or prosecute any alcohol or drug abuse patient.[facility] Reason for Visit (unrecogniz ed section and content) Reason Comments New Patient New patient, possibl e autonomic disorder had tilt table test few yrs ago, Has pressure that comes and goes on the lower back part of the head. Reason Comments Received Outside Medical Records Reason Comments PT Eval Specialty Diagnoses / Procedures Referred By Contac t Referred To Contact Physical Therapy / PHYSICAL THERAPY Diagnoses Dizziness [R42] Procedures NEW RS PT VESTIBULAR DIZZY Glenroy Syed, ELISEO.SUPERVISOR CONTACT LENS [address] [place] [address] Carmen Johnson, PT [address] [place] [address] Referral ID Status Reason Start Date Expiration Date Visits Re quested Visits Authorized [id number] Closed 08/08/2021 08/07/2022 30 30 Reason Comments Physical Therapy Specialty Diagnoses / Procedures Referred By Contac t Referred To Contact PHYSICAL THERAPY Diagnoses Dizziness Procedures Physical Therapy Glenroy Syed, ELISEO.SUPERVISOR CONTACT LENS [address] [place] [address] [facility] [address] [place] [address] Referral ID Status Reason Start Date Expiration Date V isits Requested Visits Authorized [id number] Pending Review 08/12/2022 11/10/2022 1 1 Reason Comments Establish Care Palpitations Dizziness Specialty Diagnoses / Procedures Referred By Contac t Referred To Contact Cardiology Diagnoses Dizziness Palpitations Procedures CONSULT TO CARDIOLOGY OFFICE/OUTPATIENT [facility] 60-74 MINUTES Glenroy Syed, STONE SANDBLASTER.SUPERVISOR CONTACT LENS [address] [place] [address] Referral ID Status Reason Start Date Expiration Date V isits Requested Visits Authorized [id number] Closed PCP Requested Referral 07/07/2022 07/07/2023 1 1 Reason Comments Radiology MRI Care Teams (unrecognized sec tion and content) Type Copyist Relationship Specialty Start Date End Date Mert Lama MD [address] [place] [address] Referring Family Medicine 06/10/22 Type Copyist Relationship Specialty Start Date End Date Mert Lama MD [address] [place] [address] Referring Family Medicine 06/10/22 Type Copyist Relationship Specialty Start Date End Date Mert Lama MD [address] [place] [address] Referring Family Medicine 06/10/22 Type Copyist Relationship Specialty Start Date End Date Mert Lama MD [address] [place] [id number] Referring Family Medicine 06/10/22 Type Copyist Relationship Specialty Start Date End Date Mert Lama MD [address] [place] [address] Referring Family Medicine 06/10/22 Type Copyist Relationship Specialty Start Date End Date Mert Lama MD [address] [place] [address] Referring Family Medicine 06/10/22 Type Copyist Relationship Specialty Start Date End Date Mert Lama MD [address] [place] [address] Referring Family [facility] 06/10/22 Type Copyist Relationship Specialty Start Date End Date Mert Lama MD [address] [facility] [place] [address] Referring [facility] 06/10/22 FOR RECORDS PERTAINING TO PATIENTS WHO ARE OR HAVE BEEN ENROLLED IN A CHEMICAL DEPENDENCY/SUBSTANCEABUSE PROGRAM, SOME INFORMATION MAY BE OMITTED. This clinical summary was aggregated from multiple sources. Caution should be exercised in using it in the provision of clinical care. This summary normalizes information from multiple sources, and as a consequence, information in this document may materially change the coding, format and clinical context of patient data. In addition, data may be omitted in some cases. CLINICAL DECISIONS SHOULD BE BASED ON THE PRIMARY CLINICAL RECORDS. [employer] provides no warranty or guarantee of the accuracy or completeness of information in this document.
[2023-12-20 07:10] LABS: Basophils Absolute Auto 0.1 10^3/uL (0.0-0.1); Basophils Percent Auto 0.8 % (0.2-2.0); Eosinophils Absolute Auto 0.3 10^3/uL (0.0-0.7); Eosinophils Percent Auto 4.4 % (0.9-7.0); Hematocrit 41.3 % (36.0-48.0); Hemoglobin 13.7 g/dL (12.0-16.0); Immature Granulocytes Abs Auto 0.01 10^3/uL (0.00-0.03); Immature Granulocytes Pct Auto 0.2 % (0.0-0.5); Lymphocytes Absolute Auto 2.5 10^3/uL (1.2-3.8); Lymphocytes Percent Auto 41.2 % (20.5-60.0); Mean Corpuscular HGB Conc 33.2 g/dL (29.9-35.2); Mean Corpuscular Hemoglobin 33.6 pg (26.7-34.0); Mean Corpuscular Volume 101.2 fL (81.0-99.0); Mean Platelet Volume 9.7 fL (9.5-13.5); Monocytes Absolute Auto 0.6 10^3/uL (0.3-0.8); Monocytes Percent Auto 9.2 % (1.7-12.0); Neutrophils Absolute Auto 2.6 10^3/uL (1.4-6.5); Neutrophils Percent Auto 44.2 % (43.0-75.0); Platelet Count 311 10^3/uL (150-450); Red Blood Count 4.08 10^6/uL (4.20-5.40); Red Cell Distribution Width 12.8 % (11.0-15.0)
[2023-12-20 07:54] LABS: Alanine Aminotransferase 45 U/L (14-59); Albumin Globulin Ratio 0.9; Albumin Level 3.2 g/dL (3.4-5.0); Alkaline Phosphatase 78 U/L (46-116); Anion Gap 13.9; Aspartate Amino Transferase 19 U/L (15-37); BUN Creatinine Ratio 22.6; Bilirubin Total 0.5 mg/dL (0.2-1.0); Calcium 9.1 mg/dL (8.5-10.1); Carbon Dioxide 26.2 mmol/L (21.0-32.0); Chloride 104 mmol/L (98-107); Chol HDL Ratio 3.5; Cholesterol 185 mg/dL (<=200); Estimated GFR (African America >60 (>=60); Estimated GFR (Non-African Ame >60 (>=60); Globulin 3.5 g/dL; Glucose 98 mg/dL (74-106); HDL Cholesterol 53 mg/dL (40-60); LDL Cholesterol Calculated 103.2 mg/dL; Potassium 4.1 mmol/L (3.5-5.1); Sodium 140 mmol/L (136-145); Thyroid Stimulating Hormone 1.942 uIU/mL (0.358-3.740); Total Protein 6.7 g/dL (6.4-8.2); Triglycerides 144 mg/dL (<=150); VLDL CHOLESTEROL 28.8 mg/dL
== END 2023-12-20 06:48 | disposition home or self-care (01) ==
LOC: LAB 06:48
PROVIDERS: PCP Family Medicine; Visit Provider Nurse Practitioner
DX: Z00.00 Encounter for general adult medical examination without abnormal findings (principal)
CPT/HCPCS: 36415; 80053; 80061; 84443; 85025

== ENCOUNTER 2023-12-28 06:49 | Outpatient (OUT) | payer BC, SELFPAY ==
--- OUTSIDE RECORDS SUMMARY | 2023-12-28 06:52 | XMS_ITS | CCD ---
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 Name Role Phone MERT LAMA Referring Unavailable PAMELLA BRENNAN Attending Unavailable MIKA, PAMELLA Ang Surgeon Unavailable PAMELLA BRENNAN Admitting Unavailable DE Procedure Practitioner Unavailab MERT Caban Primary Care Unavailable MERT LAMA Referring Unavailable NELLY ORNELAS Admitting Unavailable NELLY ORNELAS Attending Unavailable MERT LAMA Primary Care Unavailable MERT LAMA Primary Care Unavailable JONNY FOWLER Admitting Unavailable JONNY FOWLER Attending Unavailable MERT LAMA Referring Unavailable DANIEL, MERT Referring Unavailable MERT LAMA Primary Care Unavailable VISHAL ROGERS Admitting Unavailable VISHAL ROGERS Attending Unavailable MERT LAMA Primary Care Physician Mert Lama MD Unavailable [phone] DANIEL, DR MERT Forrest Primary Care Unavailable DANIEL, DR MERT Forrest Consulting Unavailable DANIEL, DR MERT Forrest Attending Unavailable DANIEL, DR MERT Forrest Admitting Unavailable BETTY MORALES Consulting Unavailable DANIEL, DR MERT Forrest Primary Care Unavailable DANIEL, DR MERT Forrest Attending Unavailable DANIEL, DR MERT Forrest Admitting Unavailable DANIEL, DR MERT Forrest Consulting Unavailable JOHNSON PARK Admitting Unavailable DANIEL, DR MERT Forrest Primary Care Unavailable ELENA GUAN Consulting Unavailable JOHNSON PARK Attending Unavailable PAL WETZEL Consulting Unavailable NILL, DR CAN Attending Unavailable NILL, DR CAN Admitting Unavailable DANIEL, DR MERT Forrest Primary Care Unavailable NILL, DR CAN Consulting Unavailable AGUBOSIMLEON Consulting Unavailable JAMILA PINEDO Consulting Unavailable DANIEL, DR MERT Forrest Admitting Unavailable DANIEL, DR MERT Forrest Primary Care Unavailable DANIEL, DR MERT Forrest Attending Unavailable DANIEL, DR [...] CHUN Attending Unavailable POULTON, GLENROY Referring Unavailable SUDHAIRMA Barragan Attending Unavailable IRMA HALEY Attending Unavailable ADIN LIM Attending Unavailable VISHAL ROGERS Referring Unavailable SUEVISHAL Attending Unavailable VISHAL ROGERS Referring Unavailable Brock, JERMAIN Bangura Attending Unavailable Medications Current Medications Medication Drug Class(es) [...] (DEFINITY) (10 sources) Start: 07-07-20 End: 10-06-19 24 perflutren lipid microspheres 1.3 mL in NaCl (PF) 0.9% 10 mL injection (DEFINITY) QUEtiapine 25 mg oral tablet (1 source) Atypical Antipsychotic Start: 10-10-19 take 1 tablet by mouth at bedtime quetiapine 25 mg Tab 25 mg = 1 tab(s), Oral, Bedtime, Refills(s) 0 Start Date: 10/09/20 Status: Ordered 125 ml sodium chloride 9 mg/ml prefilled syringe (10 sources) Start: 07-07-20 End: 10-06-19 24 sodium chloride 0.9 % (flush) 10 mL [...] Comment on above: Take 1 capsule by [facility] once daily. 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 Date of Illness: From: 12/19/2023 To: 12/21/2023 May Return to Work On: 12/22/2023 Sincerely, JERMAIN Stewart-C [address] [address] [facility] Lab Reportson 12-20-2023 Lab Reports [id number]#1.00 TIFF Normal [facility] Physician Orderon 12-20-2023 Physician Order [id number]#1.00 TIFF Normal [facility] RAD - MISCon 12-20-2023 RAD - MISC [id number]#1.00 TIFF Normal [facility] Ambulatory Visit Summaryon 0 12-19-2023 Ambulatory Visit Summary KAILA VASQUEZ :1980 Visit Date:12/19/2023 Ambulatory Visit Instructions Your Diagnosis Low back pain with sciatica BMI 40.0-44.9, adult Non-smoker Your Care Team Attending Physician - Cristiane Brasher Primary Care Physician - DANIEL PIZARRO, MERT Forrest This Is Your Medications List cyclobenzaprine (cyclobenzaprine 15 mg oral capsule, extended release) meloxicam (meloxicam 15 mg Tab) methylPREDNISolone (Medrol 4 mg Tab) metoprolol (Metoprolol tartrate 50 mg Tab) Procedures Performed Cystourethroscopy with dilation of urethral stricture (11/04/2020), Abdominal hysterectomy, Cardiac radiofrequency ablation using ultrasound guidance, Cholecystectomy, Colonoscopy, Excision of osteochondroma, History of ankle surgery, Osteochondroma of bone, Other, Surgery, Total bilateral salpingectomy. Discharge Vitals Heart Rate (Peripheral) 68 Respiratory Rate 18 Blood Pressure 120/86 Height 165.1 cm Height 65 in Weight 114.6 kg Weight 252.12 lb BMI 42.04 Medications What How Much When Why Instructions New cyclobenzaprine (cyclobenzaprine 15 mg oral capsule, extended release) 1 Capsules By Mouth At bedtime as needed for for spasm Low back pain with sciatica BMI 40.0-44.9, adult Non-smoker Pickup at [facility]/pharmacy #[id number] New meloxicam (meloxicam 15 mg Tab) 1 Tablets By Mouth Every day Low back pain with sciatica BMI 40.0-44.9, adult Non-smoker Pickup at [facility]/pharmacy #[id number] New methylPREDNISolone (Medrol 4 mg Tab) 1 Packets By Mouth As Directed Low back pain with sciatica BMI 40.0-44.9, adult Non-smoker Duration: 6 Days as directed on package labeling Pickup at [facility]/pharmacy #[id number] Unchanged metoprolol (Metoprolol tartrate 50 mg Tab) 1 Tablets By Mouth 2 times a day Pharmacy Information [facility]/pharmacy #[id number]: [address], [place] [id number] [phone] Medications and Immunizations Administered Given ketorolac 30 mg/mL Inj 1 mL, 30 mg, IntraMuscular. For: Low back pain with sciatica, BMI 40.0-44.9, adult, Non-smoker Allergies No Known Allergies Problems Ongoing - Any problem that you are currently receiving treatment for. Anemia Anxiety Autonomic dysfunction BMI 40.0-44.9, adult Disorder of autonomic nervous system Dizzy spells Fibromyalgia History of kidney stones Hot flashes Low back pain with sciatica Migraines Mixed incontinence urge and stress Paroxysmal tachycardia Sinus tachycardia Sleep disorder Weight gain Historical - Any problem that you are no longer receiving treatment for. Chronic low back pain COVID COVID-19 Fibromyalgia Foot pain, bilateral Hair loss Headache Hematochezia History of recurrent UTIs Migraine Nocturia Other Plantar fasciitis, left Rectal bleeding Right ankle instability Sinus tachycardia Sleep disorder Thyroid disease Patient Survey You may receive a survey via text or e-mail asking about your office visit. Please share your experience with us by completing your survey. We appreciate your feedback and thank you for choosing us for your care. Normal [facility] Consenton 12-19-2023 Consent [id number] TIFF Normal [facility] Family Medicine Office/Clini c Noteon 12-19-2023 Family Medicine Office/Clinic Note HPI Staff Kaila is a 43 year old female presenting to [facility] care Establish Care: History: Any previous diagnosis: see problem list, arthritis History of seeing any specialist: When was your last doctors visit: Last provider: Dr Lama Any recent labs: 1.5 years ago CC, pt wouldl like yearly labs and she will have done at [facility] she works there Health Maintenance UTD: Colonoscopy: 2021 normal Mammogram: Has order Pelvic/Pap: 12/2023 normal Acute: Current issues/complaints: Pain characteristics: Pain location: low back pain radiating to bilateral hips sciatica down both legs Intensity:04/17 Onset: 1 day ago Pt states when she saw Dr Lama he had wanted her to see a Specialist for how much arthritis she had in her spine. Pt states she has had back pain for over 20 years. Pt states it started on left side yesterday has been on heating pad had a hard time rolling in bed. Consistent throbbing, aching, burning. Has been taking Motrin and that isn't helping at all. Can't find a comfortable way to position herself it hurts to sit, lay down. Had x-ray done at [facility] for spine over a year or more ago History of Present Illness pt presents for worsening Review of Systems PHQ Score Initial Depression Screen Score: 0 SCORE Physical Exam Vitals & Measurements HR: 68(Peripheral) RR: 18 BP: 120/86 SpO2: 98% HT: 65 in HT: 165.1 cm WT: 114.6 kg WT: 252.12 lb BMI: 42.04 General: alert, no acute distress ENMT: oral mucosa moist, no pharyngeal erythema or exudate Cardiovascular: regular rate and rhythm, normal peripheral perfusion Respiratory: Lungs CTA, respirations non labored Extremities: no deformity, no trauma Neurological: oriented x 4, LOC appropriate for age, CN II-XII intact, motor strength equal & normal bilaterally, speech normal decreased ROM due to pain, walking very slowly Assessment/Plan 1. Low back pain with sciatica (M54.40: Lumbago with sciatica, unspecified side) pt c/o severe low back pain with sciatica down both legs. has had this happen in the past. will order x ray. will order meloxicam, muslce relaxer and medrol dose pack. toradol 30mg given in office today. Ordered: cyclobenzaprine, 15 mg, 1 cap(s), Oral, Bedtime for spasm, 20 cap(s), Refill(s) 0, [facility]/pharmacy #[id number], 165.1, cm, 12/19/23 13:17:00 EDT, Height/Length Dosing, 114.6, kg, 12/19/23 13:17:00 EDT, Weight Dosing ketorolac, 30 mg = 1 mL, Injection, IntraMuscular, Once, Stop date 12/19/23 13:35:00 EDT, Routine, Start date 12/19/23 13:35:00 EDT, 12/19/23 13:35:00 EDT meloxicam, 15 mg = 1 tab(s), Oral, Daily, # 30 tab(s), Refills(s) 0, Pharmacy: [facility]/pharmacy #[id number], 165.1, cm, 12/19/23 13:17:00 EDT, Height/Length Dosing, 114.6, kg, 12/19/23 13:17:00 EDT, Weight Dosing methylPREDNISolone, = 1 packet(s), Oral, As Directed, as directed on package labeling, X 6 day(s), # 21 tab(s), Refills(s) 0, Pharmacy: [facility]/pharmacy #[id number], 165.1, cm, 12/19/23 13:17:00 EDT, Height/Length Dosing, 114.6, kg, 12/19/23 13:17:00 EDT, Weight Dosing 2. BMI 40.0-44.9, adult (Z68.41: Body mass index [BMI] 40.0-44.9, adult) BMI education complete Ordered: cyclobenzaprine, 15 mg, 1 cap(s), Oral, Bedtime for spasm, 20 cap(s), Refill(s) 0, [facility]/pharmacy #[id number], 165.1, cm, 12/19/23 13:17:00 EDT, Height/Length Dosing, 114.6, kg, 12/19/23 13:17:00 EDT, Weight Dosing ketorolac, 30 mg = 1 mL, Injection, IntraMuscular, Once, Stop date 12/19/23 13:35:00 EDT, Routine, Start date 12/19/23 13:35:00 EDT, 12/19/23 13:35:00 EDT meloxicam, 15 mg = 1 tab(s), Oral, Daily, # 30 tab(s), Refills(s) 0, Pharmacy: [facility]/pharmacy #[id number], 165.1, cm, 12/19/23 13:17:00 EDT, Height/Length Dosing, 114.6, kg, 12/19/23 13:17:00 EDT, Weight Dosing methylPREDNISolone, = 1 packet(s), Oral, As Directed, as directed on package labeling, X 6 day(s), # 21 tab(s), Refills(s) 0, [id number], 165.1, cm, 12/19/23 13:17:00 EDT, Height/Length Dosing, 114.6, kg, 12/19/23 13:17:00 EDT, Weight Dosing 3. Non-smoker (Z78.9: Other specified health status) continue not smoking Ordered: cyclobenzaprine, 15 mg, 1 cap(s), Oral, Bedtime for spasm, 20 cap(s), Refill(s) 0, [facility]/pharmacy #[id number], 165.1, cm, 12/19/23 13:17:00 EDT, Height/Length Dosing, 114.6, kg, 12/19/23 13:17:00 EDT, Weight Dosing ketorolac, 30 mg = 1 mL, Injection, IntraMuscular, Once, Stop date 12/19/23 13:35:00 EDT, Routine, Start date 12/19/23 13:35:00 EDT, 12/19/23 13:35:00 EDT meloxicam, 15 mg = 1 tab(s), Oral, Daily, # 30 tab(s), Refills(s) 0, Pharmacy: [facility]/pharmacy #[id number], 165.1, cm, 12/19/23 13:17:00 EDT, Height/Length Dosing, 114.6, kg, 12/19/23 13:17:00 EDT, Weight Dosing methylPREDNISolone, = 1 packet(s), Oral, As Directed, as directed on package labeling, X 6 day(s), # 21 tab(s), Refills(s) 0, Pharmacy: [facility]/pharmacy #[id number], 165.1, cm, 12/19/23 13:17:00 EDT, Height/Length Dosing, 114.6, kg, 12/19/23 13:17:00 EDT, Weight Dosing Follow-up No qualifying data available Problem List/Past Medical History Ongoing Anemia Anxiety (more content not included)... [facility] Comment on above: Result Comment: Elec tronically Signed By: Cristiane Brsaher\.br\Date and Time Signed: 12/19/23 13:59 EDT Physician Orderon 12-19-2023 Physician Order [id number]#1.00 TIFF [facility] Consultation Noteon 02-15-20 Consultation Note [id number] 0CD:127 [facility] Consultation Noteon 02-05-20 Consultation Note [id number]#1.0 0CD:127 [facility] Comment on above: Other Comment: INCOM PLETE FAX.[email or web address] Formson 02-02-2023 Forms [id number]#1.0 0CD:127 Normal [facility] Consultation Noteon 01-29-20 Consultation Note [id number]#1.00 CD:127 Normal [facility] 36on 01-18-2023 36 Please call this patient and get her scheduled for a follow up in [place]! Normal [facility] Cardiovascular Reporton 01-06 Cardiovascular Report [id number] 0CD:127 [facility] Orders Onlyon 12-22-2022 Orders Only [id number] Bacilio Vasquez y N 1980 F Date Provider Department [place] 12/22/2022 Colby5-ANJEL MONGE CARD [facility] No family history on file [facility] Telemedicineon 12-21-2022 Telemedicine [id number] Bacilio Vasquez y N 1980 F Date Provider Department [place] 12/21/2022 241-VISHAL ROGERS [facility] CARD Lowery Count No family history on file Level of Service:83383 DE PHYS/QHP TELEPHONE EVALUATION 11-20 MIN [facility] Office Visiton 12-15-2022 Follow-up visit [id number] Bacilio Vasquez y N 1980 Date Provider Department [place] 12/15/2022 ADIN PAIGE CARD [facility] No family history on file Level of Service:79456 DE OFFICE/OUTPATIENT ESTABLISHED LOW MDM 20-29 MIN [facility] MRI BRAIN WO/W IVCONon 10-14 MRI BRAIN [...] cord. No mass or pathologic intradural enhancement. Asbestos Pipe Supervisor: NARCISO Transcribe Date/Time: Oct 14 2022 8:43P Dictated by : UNIQUE ANDERSON MD This examination was interpreted and the report reviewed and electronically signed by: UNIQUE ANDERSON MD on Oct 14 2022 8:51PM EST [id number] Normal [facility] MRI CERVICAL SPINE WO/W IVCO Non 10-14-2022 [...] cord. No mass or pathologic intradural enhancement. Asbestos Pipe Supervisor[facility] Transcribe Date/Time: Oct 14 2022 8:43P Dictated by : UNIQUE ANDERSON MD This examination was interpreted and the report reviewed and electronically signed by: UNIQUE ANDERSON MD on Oct 14 2022 8:51PM EST [id number] Normal [facility] CBC AUTO DIFFon 09-02-2022 BASO # 0.1 103/ul Normal 0.0-0.1 [facility] Comment on above: Performed By: #### C MP, TSH, HSTROPN #### [facility] [address] [place] [address] Dr. Christos Fallon Basophils/100 WBC (Bld) 0.5 % Normal 0.2-2.0 [facility] Comment on above: Performed By: #### C MP, TSH, HSTROPN #### [facility] [address] [address] [address] Christos Fallon EO # 0.2 103/ul Normal 0.0-0.7 [facility] Comment on above: Performed By: #### C MP, TSH, HSTROPN #### [facility] [address] [place] [address] Dr. Christos Fallon Eosinophils/100 WBC (Bld) 2.3 % Normal 0.9-7.0 [facility] Comment on above: Performed By: #### C MP, TSH, HSTROPN #### [facility] [address] [place] [address] Dr. Christos Fallon Erythrocyte distribution width (RBC) [Ratio] 13.0 % Normal 11.0-15.0 [facility] Comment on above: Performed By: #### C MP, TSH, HSTROPN #### [facility] [address] [place] [address] Dr. Christos Fallon Hematocrit (Bld) [Volume fraction] 43.0 % Normal 36.0-48.0 [facility] Comment on above: Performed By: #### C MP, TSH, HSTROPN #### [facility] [address] [place] [address] Dr. Christos Fallon Hemoglobin (Bld) [Mass/Vol] 13.9 g/dL Normal 12.0-16.0 [facility] Comment on above: Performed By: #### C MP, TSH, HSTROPN #### [facility] [address] [place] [address] Dr. Christos Fallon IG # 0.03 10e3/ul Normal 0.00-0.03 [facility] Comment on above: Performed By: #### C MP, TSH, HSTROPN #### [facility] [address] [place] [address] Dr. Christos Fallon IG % 0.3 % Normal 0.0-0.5 [facility] Comment on above: Performed By: #### C MP, TSH, HSTROPN #### [facility] [address] [place] [address] Dr. Christos Fallon LYMPH # 2.8 103/ul Normal 1.2-3.8 [facility] Comment on above: Performed By: #### C MP, TSH, HSTROPN #### [facility] [address] [place] [address] Dr. Christos Fallon Lymphocytes/100 WBC (Bld) 29.6 % Normal 20.5-60.0 [facility] Comment on above: Performed By: #### C MP, TSH, HSTROPN #### [facility] [address] [address] [address] Christos Fallon MANUAL DIFF REQ NO Normal [facility] Comment on above: Performed By: #### C MP, TSH, HSTROPN #### [facility] [address] [address] [address] Christos Fallon MCH (RBC) [Entitic mass] 34.8 pg Critically high 26.7-34.0 [facility] Comment on above: Performed By: #### C MP, TSH, HSTROPN #### [facility] [address] [place] [address] Dr. Christos Fallon MCHC (RBC) [Mass/Vol] 32.3 g/dL Normal 29.9-35.2 [facility] Comment on above: Performed By: #### C MP, TSH, HSTROPN #### [facility] [address] [place] [address] Dr. Christos Fallon MCV (RBC) [Entitic vol] 107.5 fL Critically high 81.0-99.0 [facility] Comment on above: Performed By: #### C MP, TSH, HSTROPN #### [facility] [address] [place] [address] Dr. Christos Fallon MONO # 0.7 103/ul Normal 0.3-0.8 [facility] Comment on above: Performed By: #### C MP, TSH, HSTROPN #### [facility] [address] [place] [address] Dr. Christos Fallon Monocytes/100 WBC (Bld) 7.7 % Normal 1.7-12.0 [facility] Comment on above: Performed By: #### C MP, TSH, HSTROPN #### [facility] [address] [place] [address] Dr. Christos Fallon NEUT # 5.7 103/ul Normal 1.4-6.5 [facility] Comment on above: Performed By: #### C MP, TSH, HSTROPN #### [facility] [address] [place] [address] Dr. Christos Fallon Neutrophils/100 WBC (Bld) 59.6 % Normal 43.0-75.0 [facility] Comment on above: Performed By: #### C MP, TSH, HSTROPN #### [facility] [address] [place] [address] Dr. Christos Fallon Platelet mean volume (Bld) [Entitic vol] 9.9 fL Normal 9.5-13.5 [facility] Comment on above: Performed By: #### C MP, TSH, HSTROPN #### [facility] [address] [address] [address] Christos Fallon PLT 309 103/ul Normal 150-450 [facility] Comment on above: Performed By: #### C MP, TSH, HSTROPN #### [facility] [address] [place] [address] Dr. Christos Fallon RBC 4.00 106/ul Critically low 4.20-5.40 [facility] Comment on above: Performed By: #### C MP, TSH, HSTROPN #### [facility] [address] [place] [address] Dr. Christos Fallon WBC 9.6 103/ul Normal 4.0-11.0 [facility] Comment on above: Performed By: #### C MP, TSH, HSTROPN #### [facility] [address] [place] [address] Dr. Christos Fallon D-DIMERon 09-02-2022 D-DIMER 0.28 mg/L FEU Normal <=0.[address] [facility] Comment on above: Performed By: #### C MP, TSH, HSTROPN #### [facility] [address] [place] [address] Dr. Christos Fallon D-DIMER COMMENTS SEE BELOW Normal [facility] Comment on above: Result Comment: Incr eases [...] By: #### C MP, TSH, HSTROPN #### [facility] [address] [place] [address] Dr. Christos Fallon PROF 14(COMP METB)on 023 Albumin [Mass/Vol] 3.8 g/dL Normal 3.4-5.0 [facility] Comment on above: Performed By: #### C MP, TSH, HSTROPN #### [facility] [address] [place] [address] Dr. Christos Fallon Albumin/Globulin [Mass ratio] 1.2 {ratio} Normal [facility] Comment on above: Performed By: #### C MP, TSH, HSTROPN #### [facility] [address] [place] [address] Dr. Christos Fallon ALP [Catalytic activity/Vol] 85 U/L Normal 46-116 [facility] Comment on above: Performed By: #### C MP, TSH, HSTROPN #### [facility] [address] [place] [address] Dr. Christos Fallon ALT [Catalytic activity/Vol] 39 U/L Normal 14-59 [facility] Comment on above: Performed By: #### C MP, TSH, HSTROPN #### [facility] [address] [place] [address] Dr. Christos Fallon Anion gap [Moles/Vol] 16.3 mmol/L Normal [facility] Comment on above: Performed By: #### C MP, TSH, HSTROPN #### [facility] [address] [place] [address] Dr. Christos Fallon AST [Catalytic activity/Vol] 19 U/L Normal 15-37 [facility] Comment on above: Performed By: #### C MP, TSH, HSTROPN #### [facility] [address] [place] [address] Dr. Christos Fallon Bilirubin [Mass/Vol] 0.4 mg/dL Normal 0.2-1.0 [facility] Comment on above: Performed By: #### C MP, TSH, HSTROPN #### [facility] [address] [address] [address] Christos Fallon Calcium [Mass/Vol] 9.2 mg/dL Normal 8.5-10.1 [facility] Comment on above: Performed By: #### C MP, TSH, HSTROPN #### [facility] [address] [place] [address] Dr. Christos Fallon Chloride [Moles/Vol] 101 mmol/L Normal 98-107 [facility] Comment on above: Performed By: #### C MP, TSH, HSTROPN #### [facility] [address] [place] [address] Dr. Christos Fallon CO2 [Moles/Vol] 24.9 mmol/L Normal 21.0-32.0 [facility] Comment on above: Performed By: #### C MP, TSH, HSTROPN #### [facility] [address] [place] [address] Dr. Christos Fallon Creatinine [Mass/Vol] 0.83 mg/dL Normal 0.55-1.02 [facility] Comment on above: Performed By: #### C MP, TSH, HSTROPN #### [facility] [address] [place] [address] Dr. Christos Fallon EGFR-AF EGYPTIAN >60 Normal >=60 [facility] Comment on above: Performed By: #### C MP, TSH, HSTROPN #### [facility] [address] [place] [address] Dr. Christos Fallon EGFR-NON AF EGYPTIAN >60 Normal >=60 [facility] Comment on above: Performed By: #### C MP, TSH, HSTROPN #### [facility] [address] [place] [address] Dr. Christos Fallon Globulin (S) [Mass/Vol] 3.2 g/dL Normal [facility] Comment on above: Performed By: #### C MP, TSH, HSTROPN #### [facility] [address] [place] [address] Dr. Christos Fallon Glucose [Mass/Vol] 142 mg/dL Critically high 74-106 [facility] Comment on above: Performed By: #### C MP, TSH, HSTROPN #### [facility] [address] [address] [address] Christos Fallon Potassium [Moles/Vol] 3.2 mmol/L Critically low 3.5-5.1 [facility] Comment on above: Performed By: #### C MP, TSH, HSTROPN #### [facility] [address] [address] [address] Christos Fallon Protein [Mass/Vol] 7.0 g/dL Normal 6.4-8.2 [facility] Comment on above: Performed By: #### C MP, TSH, HSTROPN #### [facility] [address] [address] [address] Christos Fallon Sodium [Moles/Vol] 139 mmol/L Normal 136-145 [facility] Comment on above: Performed By: #### C MP, TSH, HSTROPN #### [facility] [address] [address] [address] Christos Fallon Urea nitrogen [Mass/Vol] 10.0 mg/dL Normal 7.0-18.0 [facility] Comment on above: Performed By: #### C MP, TSH, HSTROPN #### [facility] [address] [address] [address] Christos Fallon Urea nitrogen/Creatinine [Mass ratio] 12.0 mg/mg Normal [facility] Comment on above: Performed By: #### C MP, TSH, HSTROPN #### [facility] [address] [address] [address] Christos Fallon PROTIMEon 09-02-2022 INR Coag (PPP) [Relative time] {INR} Normal [facility] Comment on above: Performed By: #### C MP, TSH, HSTROPN #### [facility] [address] [address] [address] Christos Fallon INR GUIDELINES SEE BELOW Normal [facility] Comment on above: Result Comment: GUALBERTO RED INR: 2.0 - 3.0 CONDITIONS NOT LISTED BELOW 2.5 - 3.5 FOR PROSTHETIC HEART VALVE REPLACEMENT 2.5 - 3.5 RECURRENT THROMBOSIS Performed By: #### C MP, TSH, HSTROPN #### [facility] [address] [place] [address] Dr. Christos Fallon PT Coag (PPP) [Time] 9.7 s Normal 9.0-11.6 [facility] Comment on above: Performed By: #### C MP, TSH, HSTROPN #### [facility] [address] [place] [address] Dr. Christos Fallon PTTon 09-02-2022 aPTT Coag (Bld) [Time] 25.9 s Normal 22.3-36.2 [facility] Comment on above: Performed By: #### C MP, TSH, HSTROPN #### [facility] [address] [place] [address] Dr. Christos Fallon TROPONIN, HIGH SENSITIVITYon 09-02-2022 HSTROP <4.0 Normal 4.0-51.3 [facility] Comment on above: Result Comment: CUT- OFF POINTS HAVE BEEN ESTABLISHED BASED ON THE FOURTH UNIVERSAL DEFINITIONS OF MYOCARDIAL INFARCTION. THE UPPER REFERENCE LIMIT (URL) OF TROPONIN, DEFINED THE 99TH PERCENTILE OF cTnI DISTRIBUTION IN A REFERENCE POPULATION, HAS BEEN CONFIRMED THE DECISION THRESHOLD FOR [place] DIAGNOSIS. Performed By: #### C MP, TSH, HSTROPN #### [facility] [address] [place] [address] Dr. Christos Fallon TSHon 09-02-2022 TSH 0.813 uIU/mL Normal 0.358-3.[address] [facility] Comment on above: Performed By: #### C MP, TSH, HSTROPN #### [facility] [address] [place] [address] Dr. Christos Fallon XR CHEST 1 Von [...] by: LEEANNE MON Date: 2022-09-02 15:09 Normal [facility] CNOVon 08-24-2022 CNOV Office Visit (CARDLO ) CHRISTINAKAILA SHELLEY Emily ([id number]) 1980 F Date Time Provider Department 08/24/22 2:00 PM JANELL SY During your visit today, we recorded the following information about you: Pulse Blood pressure Weight Height 88/minute 112/73 112.9 kg 1.626 m Janell Sy MD 08/24/2022 2:17 PM Signed Heart and Vascular Axis SECTION OF REGIONAL CARDIOLOGY OUTPATIENT VISIT DATE [...] Cardiac work-up includes: Echocardiogram on 05/19/2020 at [facility] showed normal ejection fraction. No valvular [...] ECG COMPLETE 4. Obesity, morbid, BMI 40.0-49.9 ([facility]) E66.01 ECG COMPLETE 5. SVT (supraventricular tachycardia) ([facility]) I47.1 6. Chronic fatigue R53.82 7. Vitamin [...] content not included)... Normal [facility] ECG COMPLETEon 08-24-2022 ECG COMPLETE Ventricular Rate : 8 4 BPM Atrial Rate : 84 BPM P-R Interval : 166 ms QRS Duration : 92 ms Q-T Interval : 358 ms QTC Calculation(Bazett) : 423 ms Calculated P [place] : 60 degrees Calculated R [place] : 45 degrees Calculated T [place] : 45 degrees NORMAL SINUS RHYTHM INCREASED R/S RATIO IN V1, CONSIDER EARLY TRANSITION OR POSTERIOR INFARCT ABNORMAL ECG Confirmed by MEERA BOYD M.D. ([id number]) on 08/28/2022 3:03:10 PM NAME : KAILA VASQUEZ PID : [id number] : 1980 Gender : Female Race : ORD : [id number] Procedure Date : Aug 24 2022 13:56:02 Edit Date : Aug 28 2022 15:03:10 Diagnosis: NORMAL SINUS RHYTHM INCREASED R/S RATIO IN V1, CONSIDER EARLY TRANSITION OR POSTERIOR INFARCT ABNORMAL ECG Confirmed by MEERA BOYD M.D. ([id number]) on 08/28/2022 3:03:10 PM Test Reason : Location : 145 : LOCARD Overread By : MEERA BOYD M.D. Edited By : MEERA BOYD M.D. Referred By : JANELL SY Acquired by : Jose browning [facility] CNTHERAPYon 08-12-2022 CNTHERAPY OT/PT/Speech Visit (PTAMCF) KAILA VASQUEZ ([id number]) 1980 F Date Time Provider Department 08/12/22 2:45 PM SEJALCARMEN VAZQUEZ [facility] Date Time Provider Department Center 08/12/2022 2:45 PM [id number] [facility]MEN [facility] Reason for Visit: Physical Therapy [503] Primary [...] mL (BD POSIFLUSH) Normal [facility] CNTHERAPYon 08-05-2022 CNTHERAPY OT/PT/Speech Visit (PTAMCF) KAILA VASQUEZ ([id number]) 1980 F Date Time Provider Department 08/05/22 9:15 AM CARMEN JOHNSON [facility] Date Time Provider Department Center 08/05/2022 9:15 AM [id number], KARA [facility] [place] [facility] Reason for Visit: PT Eval [747] Primary [...] mL (BD POSIFLUSH) Normal [facility] Covid-19 PCR (CVDTB)on 07-09 SARS-CoV-2 (COVID-19) RNA LEROY+probe Ql (Unsp spec) Not detected Normal NOT DETECTED [facility] Comment on above: Result Comment: When [...] for this test is supported by the [place] of Health and Human Service's declaration that [...] used). Performed By: #### C VDAGA #### [facility] [address] [place] [address] Dr. Christos Fallon 25(OH)D3 [facility] 2021 25-hydroxyvitamin D3 [Mass/Vol] 15.8 ng/mL Low 31.0-80.0 [facility] Comment on above: Order Comment: Speci men Type: BLOOD SPECIMENOrdering Facility: [facility] Address: [address] [place] [address] Result Comment: Clas sification of 25 [place] Vitamin D status: Deficiency/Insufficiency: < or = 30 ng/ml. Sufficiency/Optimal Levels: 31-80 ng/mL Toxicity: > 100 ng/mL. Test performed by chemiluminescent immunoassay. Performed By: #### 1 989-3 ####[facility] LABIA [id number] [place] [address] [place] ESEQUIEL BY IFA WITH REFLEXon ESEQUIEL PATTERN Nuclear fine speckled Normal [facility] Comment on above: Order Comment: Davidi betty Type: BLOOD SPECIMENOrdering Facility: [facility] Address: [address] [place] [address] Performed By: #### 2 9374-6, 38685-6, 69275-9, 48619-6, 31479-7, ANAIFR, 74651-9, 72532-6, 55423-2, 52323-3 ####[facility] LABCLIA [id number] [address] [place] ESEQUIEL TITER 1:160 Normal [facility] Comment on above: Order Comment: Speci men Type: BLOOD SPECIMENOrdering Facility: [facility] Address: [address] [id number] Performed By: #### 2 9374-6, 67379-2, 86701-5, 20241-8, 33074-2, ANAIFR, 65924-2, 67521-5, 21848-2, 77973-0 ####[facility] LABCLIA [id number] [place] [address] [place] Nuclear Ab IF (S) [Titer] Positive Abnormal Negative [facility] Comment on above: Order Comment: Speci men Type: BLOOD SPECIMENOrdering Facility: [facility] Address: [address] [place] [address] Result Comment: Anti -nuclear antibody test is used as an aid in diagnosis of systemic autoimmune diseases. Where positive and clinically warranted, follow-up using disease-specific testing is recommended. Low positive titers are not uncommon with advanced age, certain chronic infections, and malignancies among others. Test methodology: Indirect fluorescence immunoassay (IFA) using HEp-2 cells. Performed By: #### 2 9374-6, 38773-5, 09908-5, 88602-0, 35240-8, ANAIFR, 69893-7, 00225-2, 26223-7, 73014-0 ####[facility] LABCLIA [id number] [place] [address] [place] Basic metabolic 2000 panelon 07-07-2022 Anion gap [Moles/Vol] 13 mmol/L Normal 9-18 [facility] Comment on above: Order Comment: Speci men Type: BLOOD SPECIMENOrdering Facility: [facility] Address: [address] [id number] Performed By: #### 2 4321-2 ####MICHELLE [facility] LABCLIA [id number] [place] [address] [place] Calcium [Mass/Vol] 9.3 mg/dL Normal 8.5-10.2 [facility] Comment on above: Order Comment: Speci men Type: BLOOD SPECIMENOrdering Facility: [facility] Address: [address] [address] Performed By: #### 2 4321-2 ####[facility] LABCLIA [id number] [place] [address] [place] Chloride [Moles/Vol] 102 mmol/L Normal 97-105 [facility] Comment on above: Order Comment: Speci men Type: BLOOD SPECIMENOrdering Facility: [facility] Address: [address] [place] [address] Performed By: #### 2 4321-2 ####[facility] LABCLIA [id number] [place] [address] [place] CO2 [Moles/Vol] 23 mmol/L Normal 22-30 [facility] Comment on above: Order Comment: Speci men Type: BLOOD SPECIMENOrdering Facility: [facility] Address: [address] [place] [address] Performed By: #### 2 4321-2 ####[facility] LABCLIA [id number] [place] [address] [place] Creatinine [Mass/Vol] 0.72 mg/dL Normal 0.58-0.96 [facility] Comment on above: Order Comment: Speci men Type: BLOOD SPECIMENOrdering Facility: [facility] Address: [address] [place] [address] Performed By: #### 2 4321-2 ####[facility] LABCLIA [id number] [place] [address] [place] ESTIMATED GLOMERULAR FILTRATION RATE 109 mL/min/1.73m??? Normal >=60 [facility] Comment on above: Order Comment: Speci men Type: BLOOD SPECIMENOrdering Facility: [facility] Address: [address] [place] [address] Result Comment: Dina mated Glomerular Filtration Rate [...] actual GFR. Performed By: #### 2 4321-2 ####[facility] [id number] [place] [address] [place] Glucose [Mass/Vol] 98 mg/dL Normal 74-99 [facility] Comment on above: Order Comment: Bryan hernández Type: BLOOD SPECIMENOrdering Facility: [facility] Address: [address] [place] [address] Result Comment: The [place] Diabetes Association (ADA) provides guidance for cutoff [...] Standards of Medical Care in Diabetes 2016, [place] [employer]. Diabetes Care. 2016.39(Suppl 1). Performed By: #### 2 4321-2 ####[facility] LABCLIA [id number] [place] [address] [place] Potassium [Moles/Vol] 4.1 mmol/L Normal 3.7-5.1 [facility] Comment on above: Order Comment: Bryan hernández Type: BLOOD SPECIMENOrdering Facility: [facility] Address: [address] [place], [place] [id number] Performed By: #### 2 4321-2 ####[facility] LABCLIA [id number] [place] [address] [place] Sodium [Moles/Vol] 138 mmol/L Normal 136-144 [facility] Comment on above: Order Comment: Speci men Type: BLOOD SPECIMENOrdering Facility: [facility] Address: [address] [address] Performed By: #### 2 4321-2 ####MICHELLE [facility] LABCLIA [id number] [place] [address] [place] Urea nitrogen [Mass/Vol] 8 mg/dL Normal 7-21 [facility] Comment on above: Order Comment: Speci men Type: BLOOD SPECIMENOrdering Facility: [facility] Address: [address] [address] Performed By: #### 2 4321-2 ####[facility] LABCLIA [id number] [place] [address] [place] Anion gap [Moles/Vol] 13 mmol/L 9 - 18 mmol/L [facility] Calcium [Mass/Vol] 9.3 mg/dL 8.5 - 10. 2 mg/dL [facility] Chloride [Moles/Vol] 102 mmol/L 97 - 10 5 mmol/L [facility] CO2 [Moles/Vol] 23 mmol/L 22 - 30 mmol/L [facility] Creatinine [Mass/Vol] 0.72 mg/dL 0.58 - 0.96 mg/dL [facility] Estimated Glomerular Filtration Rate 109 mL/min/1.73m >=60 mL/min/1.73m [facility] Glucose [Mass/Vol] 98 mg/dL 74 - 99 mg/dL [facility] Potassium [Moles/Vol] 4.1 mmol/L 3.7 - 5.1 mmol/L [facility] Sodium [Moles/Vol] 138 mmol/L 136 - 144 mmol/L [facility] Urea nitrogen [Mass/Vol] 8 mg/dL 7 - 21 mg/dL [facility] CBC W Auto Differential pane l (Bld)on 07-07-2022 Basophils (Bld) [#/Vol] 0.04 10*3/uL Normal <0.11 [facility] Comment on above: Order Comment: Speci men Type: BLOOD SPECIMENOrdering Facility: [facility] Address: [address] [address] Performed By: #### 5 7021-8 ####[facility] LABCLIA [id number] [place] [address] [place] Basophils/100 WBC (Bld) 0.5 % Normal [facility] Comment on above: Order Comment: Speci men Type: BLOOD SPECIMENOrdering Facility: [facility] Address: [address] [place] [address] Performed By: #### 5 7021-8 ####[facility] LABCLIA [id number] [place] [address] [place] Differential cell count method Nom (Bld) Auto Normal [facility] Comment on above: Order Comment: Speci men Type: BLOOD SPECIMENOrdering Facility: [facility] Address: [address] [place] [address] Performed By: #### 5 7021-8 ####[facility] LABCLIA [id number] [place] [address] [place] Eosinophils (Bld) [#/Vol] 0.29 10*3/uL Normal <0.46 [facility] Comment on above: Order Comment: Speci men Type: BLOOD SPECIMENOrdering Facility: [facility] Address: [address] [place] [address] Performed By: #### 5 7021-8 ####[facility] LABCLIA [id number] [place] [address] [place] Eosinophils/100 WBC (Bld) 3.9 % Normal [facility] Comment on above: Order Comment: Speci men Type: BLOOD SPECIMENOrdering Facility: [facility] Address: [address] [place] [address] Performed By: #### 5 7021-8 ####[facility] LABCLIA [id number] [place] [address] [place] Erythrocyte distribution width (RBC) [Ratio] 12.1 % Normal 11.5-15.0 [facility] Comment on above: Order Comment: Speci men Type: BLOOD SPECIMENOrdering Facility: [facility] Address: [address] [place] [address] Performed By: #### 5 7021-8 ####[facility] LABIA [id number] [place] [address] [place] Hematocrit (Bld) [Volume fraction] 43.5 % Normal 36.0-46.0 [facility] Comment on above: Order Comment: Speci men Type: BLOOD SPECIMENOrdering Facility: [facility] Address: [address] [place] [address] Performed By: #### 5 7021-8 ####[facility] [id number] [place] [address] [place] Hemoglobin (Bld) [Mass/Vol] 14.9 g/dL Normal 11.5-15.5 [facility] Comment on above: Order Comment: Speci men Type: BLOOD SPECIMENOrdering Facility: [facility] Address: [address] [place] [address] Performed By: #### 5 7021-8 ####[facility] LABIA [id number] [place] [address] [place] Immature granulocytes (Bld) [#/Vol] 0.03 10*3/uL Normal <0.10 [facility] Comment on above: Order Comment: Speci men Type: BLOOD SPECIMENOrdering Facility: [facility] Address: [address] [place] [address] Performed By: #### 5 7021-8 ####[facility] LABIA [id number] [place] [address] [place] Immature granulocytes/100 WBC (Bld) 0.4 % Normal [facility] Comment on above: Order Comment: Speci men Type: BLOOD SPECIMENOrdering Facility: [facility] Address: [address] [place] [address] Performed By: #### 5 7021-8 ####[facility] LABCLIA [id number] [place] [address] [place] Lymphocytes (Bld) [#/Vol] 1.71 10*3/uL Normal 1.00-4.00 [facility] Comment on above: Order Comment: Speci men Type: BLOOD SPECIMENOrdering Facility: [facility] Address: [address] [place] [address] Performed By: #### 5 7021-8 ####[facility] LABCLIA [id number] [place] [address] [place] Lymphocytes/100 WBC (Bld) 23.2 % Normal [facility] Comment on above: Order Comment: Speci men Type: BLOOD SPECIMENOrdering Facility: [facility] Address: [address] [place] [address] Performed By: #### 5 7021-8 ####MICHELLE [facility] LABCLIA [id number] [place] [address] [place] MCH (RBC) [Entitic mass] 34.1 pg High 26.0-34.0 [facility] Comment on above: Order Comment: Speci men Type: BLOOD SPECIMENOrdering Facility: [facility] Address: [address] [place] [address] Performed By: #### 5 7021-8 ####[facility] LABCLIA [id number] [place] [address] [place] MCHC (RBC) [Mass/Vol] 34.3 g/dL Normal 30.5-36.0 [facility] Comment on above: Order Comment: Speci men Type: BLOOD SPECIMENOrdering Facility: [facility] Address: [address] [address] Performed By: #### 5 7021-8 ####[facility] LABIA [id number] [place] [address] [place] MCV (RBC) [Entitic vol] 99.5 fL Normal 80.0-100.0 [facility] Comment on above: Order Comment: Speci men Type: BLOOD SPECIMENOrdering Facility: [facility] Address: [address] [address] Performed By: #### 5 7021-8 ####[facility] LABIA [id number] [place] [address] [place] Monocytes (Bld) [#/Vol] 0.57 10*3/uL Normal <0.87 [facility] Comment on above: Order Comment: Speci men Type: BLOOD SPECIMENOrdering Facility: [facility] Address: [address] [address] Performed By: #### 5 7021-8 ####[facility] LABIA [id number] [place] [address] [place] Monocytes/100 WBC (Bld) 7.7 % Normal [facility] Comment on above: Order Comment: Speci men Type: BLOOD SPECIMENOrdering Facility: [facility] Address: [address] Performed By: #### 5 7021-8 ####[facility] LABIA [id number] [place] [address] [place] Neutrophils (Bld) [#/Vol] 4.73 10*3/uL Normal 1.45-7.50 [facility] Comment on above: Order Comment: Speci men Type: BLOOD SPECIMENOrdering Facility: [facility] Address: [address] [place], [place] [address] Performed By: #### 5 7021-8 ####[facility] LABCLIA [id number] [place] [address] [place] Neutrophils/100 WBC (Bld) 64.3 % Normal [facility] Comment on above: Order Comment: Speci men Type: BLOOD SPECIMENOrdering Facility: [facility] Address: [address] [place] [address] Performed By: #### 5 7021-8 ####[facility] LABCLIA [id number] [place] [address] [place] Nucleated RBC (Bld) [#/Vol] 10*3/uL Normal <0.01 [facility] Comment on above: Order Comment: Speci men Type: BLOOD SPECIMENOrdering Facility: [facility] Address: [address] [place] [address] Performed By: #### 5 7021-8 ####[facility] LABIA [id number] [place] [address] [place] Nucleated RBC/100 WBC (Bld) [Ratio] 0.0 /100 WBC Normal [facility] Comment on above: Order Comment: Speci men Type: BLOOD SPECIMENOrdering Facility: [facility] Address: [address] [place] [address] Performed By: #### 5 7021-8 ####[facility] LABIA [id number] [place] [address] [place] Platelet mean volume (Bld) [Entitic vol] 9.6 fL Normal 9.0-12.7 [facility] Comment on above: Order Comment: Speci men Type: BLOOD SPECIMENOrdering Facility: [facility] Address: [address] [place] [address] Performed By: #### 5 7021-8 ####[facility] LABCLIA [id number] [place] [address] [place] Platelets (Bld) [#/Vol] 277 10*3/uL Normal 150-400 [facility] Comment on above: Order Comment: Speci men Type: BLOOD SPECIMENOrdering Facility: [facility] Address: [address] [place] [address] Performed By: #### 5 7021-8 ####[facility] [id number] [place] [address] [place] RBC (Bld) [#/Vol] 4.37 10*6/uL Normal 3.90-5.20 [facility] Comment on above: Order Comment: Speci men Type: BLOOD SPECIMENOrdering Facility: [facility] Address: [address] [place] [address] Performed By: #### 5 7021-8 ####[facility] LABCLIA [id number] [place] [address] [place] WBC (Bld) [#/Vol] 7.37 10*3/uL Normal 3.70-11.00 [facility] Comment on above: Order Comment: Speci men Type: BLOOD SPECIMENOrdering Facility: [facility] Address: [address] [place] [address] Performed By: #### 5 7021-8 ####[facility] LABCLIA [id number] [place] [address] [place] Basophils (Bld) [#/Vol] 0.04 10*3/uL <0.11 k/uL [facility] Basophils/100 WBC (Bld) 0.5 % [facility] Differential cell count method Nom (Bld) Auto [facility] Eosinophils (Bld) [#/Vol] 0.29 10*3/uL <0.46 k/uL [facility] Eosinophils/100 WBC (Bld) 3.9 % [facility] Erythrocyte distribution width (RBC) [Ratio] 12.1 % 11.5 - 15.0 % [facility] Hematocrit (Bld) [Volume fraction] 43.5 % 36.0 - 46.0 % [facility] Hemoglobin (Bld) [Mass/Vol] 14.9 g/dL 11.5 - 15.5 g/dL [facility] Immature granulocytes (Bld) [#/Vol] 0.03 10*3/uL <0.10 k/uL [facility] Immature granulocytes/100 WBC (Bld) 0.4 % [facility] Lymphocytes (Bld) [#/Vol] 1.71 10*3/uL 1.00 - 4.00 k/uL [facility] Lymphocytes/100 WBC (Bld) 23.2 % [facility] MCH (RBC) [Entitic mass] 34.1 pg High 26.0 - 34.0 pg [facility] MCHC (RBC) [Mass/Vol] 34.3 g/dL 30.5 - 36.0 g/dL [facility] MCV (RBC) [Entitic vol] 99.5 fL 80.0 - 100.0 fL [facility] Monocytes (Bld) [#/Vol] 0.57 10*3/uL <0.87 k/uL [facility] Monocytes/100 WBC (Bld) 7.7 % [facility] Neutrophils (Bld) [#/Vol] 4.73 10*3/uL 1.45 - 7.50 k/uL [facility] Neutrophils/100 WBC (Bld) 64.3 % [facility] Nucleated RBC (Bld) [#/Vol] <0.01 k/uL [facility] Nucleated RBC/100 WBC (Bld) [Ratio] 0.0 /100 WBC [facility] Platelet mean volume (Bld) [Entitic vol] 9.6 fL 9.0 - 12.7 fL [facility] Platelets (Bld) [#/Vol] 277 10*3/uL 150 - 400 k/uL [facility] RBC (Bld) [#/Vol] 4.37 10*6/uL 3.90 - 5.2 0 m/uL [facility] WBC (Bld) [#/Vol] 7.37 10*3/uL 3.70 - 11. 00 k/uL [facility] CNOVon 07-07-2022 CNOV Office Visit ([facility] [place] ) KAILA VASQUEZ ([id number]) 1980 F Date Time Provider Department 07/07/22 8:00 AM GLENROY SYED During your visit today, we recorded the following information about you: Pulse Blood pressure Weight Height 82/minute 134/88 112 kg 1.626 m Glenroy Syed APRN.CNP 07/07/2022 12:28 PM Signed [facility] General Neurology New Patient Evaluation CHIEF [...] over a month. She has seen an broadcast chief engineer and was told she was having occular migraine by her market analyst. A couple times a month she gets [...] content not included)... Normal [facility] CNPNon 07-07-2022 CNPN Telephone ([facility]) KAILA VASQUEZ ([id number]) 1980 F Date Time Provider Department 07/07/22 GLENROY SYED NEVÍCTORFV During your visit today, we recorded the following information about you: Cinthya Salgado 07/07/2022 8:52 AM Signed Received medical records from [facility]. Uploaded to chart and forwarded for review. Kajal Gillespie RN 07/07/2022 9:14 AM Signed Noted. Provider notified. Allergies As of Date: 07/07/2022 (Not on File) Date Reviewed: 07/07/2022 Reviewed by: Elaine Bolaños Ma - Fully Assessed Reason for Visit: Received Outside Medical Records [0609] Prescriptions as of 07/19/2022 - metoprolol tartrate, short acting, (LOPRESSOR) 50 mg tablet metoprolol tartrate 50 mg tablet Facility-Administered Medications as of 07/19/2022 - perflutren lipid microspheres 1.3 mL in NaCl (PF) 0.9% 10 mL injection (DEFINITY) - sodium chloride 0.9 % (flush) 10 mL (BD POSIFLUSH) Problem List As Of Date: 07/07/2022 (None) Encounter Status:Closed by CINTHYA SALGADO on 07/19/22 Normal [facility] Centromere Ab IF Ql (S)on Centromere Ab Qn (S) <0.2 Normal <1.0 [facility] Comment on above: Order Comment: Speci men Type: BLOOD SPECIMENOrdering Facility: [facility] Address: [address] [place] [address] Result Comment: Anti -centromere antibody is used as in aid in diagnosis of systemic sclerosis. Clinical correlation is required. Test Methodology: Multiplex flow immunoassay. Performed By: #### 2 9374-6, 30920-1, 72394-2, 98985-8, 02782-3, ANAIFR, 00718-0, 22176-7, 43330-1, 75599-6 ####[facility] LABCLIA [id number] [place] [address] [place] [facility] CENTROMERE AB QUAL Negative Normal Negative [facility] Comment on above: Order Comment: Speci men Type: BLOOD SPECIMENOrdering Facility: [facility] Address: [address] [place] [address] Performed By: #### 2 9374-6, 55190-2, 73299-8, 31016-7, 87169-0, ANAIFR, 71913-9, 69452-0, 68843-5, 08655-0 ####[facility] LABIA [id number] [place] [address] [place] Chromatin Ab Qnon 07-07-2022 CHROMATIN AB QUAL Negative Normal Negative [facility] Comment on above: Order Comment: Speci men Type: BLOOD SPECIMENOrdering Facility: [facility] Address: [address] [place] [address] Performed By: #### 2 9374-6, 50414-0, 21294-9, 42925-0, 36307-3, ANAIFR, 51230-5, 32413-0, 16243-6, 52738-0 ####[facility] LABIA [id number] [place] [address] [place] Chromatin Ab SerPl-aCncon Chromatin Ab Qn <0.2 Normal <1.0 [facility] Comment on above: Order Comment: Speci men Type: BLOOD SPECIMENOrdering Facility: [facility] Address: [address] [place] [address] Result Comment: Test Methodology: Multiplex flow immunoassay. Performed By: #### 2 9374-6, 73138-8, 05307-2, 36905-1, 25397-5, ANAIFR, 65312-0, 51410-3, 27253-0, 49128-7 ####[facility] LABCLIA [id number] [place] [address] [place] KAMRAN Jo1 Ab Ser-aCncon 2021 Radha-1 extractable nuclear Ab Qn (S) <0.2 Normal <1.0 [facility] Comment on above: Order Comment: Speci men Type: BLOOD SPECIMENOrdering Facility: [facility] Address: [address] [place] [address] Performed By: #### 2 9374-6, 77156-3, 41497-2, 48777-9, 22270-5, ANAIFR, 47924-4, 82674-7, 01627-0, 35716-8 ####[facility] LABIA [id number] [place] [address] [place] KAMRAN FOOT ORTHOPEDIST Ab Ser-aCncon 2021 Ribonucleoprotein extractable nuclear Ab Qn (S) <0.2 Normal <1.0 [facility] Comment on above: Order Comment: Speci men Type: BLOOD SPECIMENOrdering Facility: [facility] Address: [address] [place] [address] Performed By: #### 2 9374-6, 86645-5, 16444-2, 40545-8, 18229-0, ANAIFR, 44656-6, 52021-6, 57400-4, 11877-7 ####[facility] LABCLIA [id number] [place] [address] [place] KAMRAN SM IgG Ser-aCncon 2021 Osborne extractable nuclear IgG Qn (S) <0.2 Normal <1.0 [facility] Comment on above: Order Comment: Speci men Type: BLOOD SPECIMENOrdering Facility: [facility] Address: [address] [place] [address] Performed By: #### 2 9374-6, 04028-2, 04730-9, 34010-5, 69672-1, ANAIFR, 73199-8, 97165-6, 89309-3, 72318-9 ####[facility] LABIA [id number] [address] OF [place] KAMRAN SS-A Ab Ser-aCncon 07-07 Sjogrens syndrome-A extractable nuclear Ab Qn (S) 0.3 AI Normal <1.0 [facility] Comment on above: Order Comment: Speci men Type: BLOOD SPECIMENOrdering Facility: [facility] Address: [address] [place] [address] Result Comment: Test Methodology: Multiplex flow immunoassay. Performed By: #### 2 9374-6, 69573-4, 91775-1, 38737-5, 05797-4, ANAIFR, 45771-2, 80389-4, 34636-4, 68347-2 ####[facility] LABIA [id number] [address] STATES [place] KAMRAN SS-B Ab Ser-aCncon 07-07 Sjogrens syndrome-B extractable nuclear Ab Qn (S) <0.2 Normal <1.0 [facility] Comment on above: Order Comment: Speci men Type: BLOOD SPECIMENOrdering Facility: [facility] Address: [address] [place] [address] Result Comment: Anti -SSB (anti-La) antibody is used as an aid in diagnosis of a variety of systemic autoimmune diseases, especially for Sjogren's syndrome and systemic lupus erythematosus. Clinical correlation is required. Test Methodology: Multiplex flow immunoassay. Performed By: #### 2 9374-6, 29945-7, 42255-5, 63153-3, 14727-7, ANAIFR, 95638-4, 62434-3, 81001-2, 42784-2 ####[facility] [id number] [address] [address] [place] Radha-1 extractable nuclear Ab Qn (S)on 07-07-2022 RADHA 1 ANTIBODY QUAL Negative Normal Negative [facility] Comment on above: Order Comment: Speci men Type: BLOOD SPECIMENOrdering Facility: [facility] Address: [address] [place] [address] Result Comment: Anti -RADHA-1 antibody is used as an aid in diagnosis of polymyositis and dermatomyositis especially with pulmonary involvement. A negative result cannot rule out polymyositis or dermatomyositis. Clinical correlation is required. Test Methodology: Multiplex flow immunoassay. Performed By: #### 2 9374-6, 94690-8, 92725-8, 82406-6, 94060-5, ANAIFR, 10537-7, 23008-2, 19556-7, 40607-2 ####[facility] [id number] [address] [address] [place] Ribonucleoprotein extractabl e nuclear Ab Qn (S)on 07-07-2022 ANTI-FOOT ORTHOPEDIST QUAL Negative Normal Negative [facility] Comment on above: Order Comment: Bryan hernández Type: BLOOD SPECIMENOrdering Facility: [facility] Address: [address] [place] [address] Performed By: #### 2 9374-6, 13405-3, 62487-8, 48261-4, 83067-7, ANAIFR, 86459-9, 39757-5, 99863-7, 05988-8 ####[facility] [id number] [address] [address] [place] RIBOSOMAL FOOT ORTHOPEDIST QUAL Negative Normal Negative [facility] Comment on above: Order Comment: Speci betty Type: BLOOD SPECIMENOrdering Facility: [facility] Address: [address] [place], [place] [id number] Result Comment: Anti -Ribosomal RNA (Ribosomal P) antibody is used as an aid in diagnosis of systemic autoimmune diseases especially systemic lupus erythematosus and mixed connective tissue disease. Cross-reactivity with Anti-obsorne antibody is not uncommon. Clinical correlation is required. Test Methodology: Multiplex flow immunoassay. Performed By: #### 2 9374-6, 82332-9, 74289-2, 46132-4, 26981-7, ANAIFR, 61975-9, 79642-6, 08031-7, 56596-5 ####[facility] LABCLIA [id number] [address] OF [place] SCL-70 extractable nuclear I gG IA Qn (S)on 07-07-2022 SCLERODERMA AB QUAL Negative Normal Negative [facility] Comment on above: Order Comment: Speci men Type: BLOOD SPECIMENOrdering Facility: [facility] Address: [address] [place] [address] Performed By: #### 2 9374-6, 90964-8, 10795-1, 73260-2, 40412-6, ANAIFR, 79556-7, 22453-4, 43996-2, 09689-0 ####[facility] LABIA [id number] [address] OF [facility] SCLERODERMA IGG AB <0.2 Normal <1.0 [facility] Comment on above: Order Comment: Speci betty Type: BLOOD SPECIMENOrdering Facility: [facility] Address: [address] [place] [address] Result Comment: Scl- 70/Scleroderma antibody test is used as an aid in diagnosis of systemic sclerosis especially the diffuse cutaneous form. A negative result cannot rule out systemic sclerosis. The final interpretation should consider clinical picture and other test results such as anti-centromere antibody. Test Methodology: Multiplex flow immunoassay. Performed By: #### 2 9374-6, 90601-5, 85820-6, 76515-6, 94600-0, ANAIFR, 41468-2, 06834-8, 98425-1, 93696-9 ####[facility] LABCLIA [id number] [address] [place] Sjogrens syndrome-A extracta ble nuclear Ab Qn (S)on 07-07-2022 SSA ANTIBODY QUAL Negative Normal Negative [facility] Comment on above: Order Comment: Speci men Type: BLOOD SPECIMENOrdering Facility: [facility] Address: [address] [place] [address] Performed By: #### 2 9374-6, 30028-5, 19856-6, 88566-4, 52363-0, ANAIFR, 69968-9, 38263-7, 71730-1, 99268-6 ####[facility] LABIA [id number] [address] [place] Sjogrens syndrome-B extracta ble nuclear Ab Qn (S)on 07-07-2022 SSB ANTIBODY QUAL Negative Normal Negative [facility] Comment on above: Order Comment: Speci men Type: BLOOD SPECIMENOrdering Facility: [facility] Address: [address] [place] [address] Performed By: #### 2 9374-6, 93729-5, 60199-4, 90840-7, 00934-5, ANAIFR, 00580-9, 82351-9, 11027-8, 17103-5 ####[facility] [id number] [address] [place] Osborne extractable nuclear Ig G Qn (S)on 07-07-2022 SM ANTIBODY QUAL Negative Normal Negative [facility] Comment on above: Order Comment: Speci men Type: BLOOD SPECIMENOrdering Facility: [facility] Address: [address] [place] [address] Result Comment: Anti -Sm (Osborne) antibody is used as an aid in diagnosis of systemic lupus erythematosus and its presence is associated with renal disease. A negative result cannot rule out systemic lupus erythematosus. Clinical correlation is required. Test Methodology: Multiplex flow immunoassay. Performed By: #### 2 9374-6, 36048-2, 24511-5, 28343-6, 68645-5, ANAIFR, 60271-0, 97244-1, 06867-2, 03546-3 ####[facility] [id number] [place] [address] [place] TSH BLDon 07-07-2022 TSH Qn 0.824 m[IU]/L 0.270 - 4.200 mIU/L [facility] TSH SerPl-aCncon 07-07-2022 TSH Qn 0.824 m[IU]/L Normal 0.270-4.200 [facility] Comment on above: Order Comment: Speci men Type: BLOOD SPECIMENOrdering Facility: [facility] Address: [address] [place], [place] [id number] Result Comment: If t he patient is , TSH reference range varies by gestational period: First Trimester (weeks 9-12): 0.180-2.990 mIU/L Second Trimester: 0.110-3.980 mIU/L Third Trimester: 0.480-4.710 mIU/L Eliezer Bangura et al. A Practical Approach for the Verifications and Determination of Site- and Trimester-Specific Reference Intervals for Thyroid Function tests in . Thyroid, 2019:29:3:412-420. Rob Forrest, et al. 2017 Guidelines of the [place] [employer] for the Diagnosis and Management of Thyroid Disease during and the . Thyroid, 2017:27:3:315-389. Performed By: #### 3 016-3, 2132-9 ####[facility] [id number] [place] [id number] [place] VITAMIN B12 BLOODon 07-07-20 22 Cobalamin (Vitamin B12) [Mass/Vol] 618 pg/mL 232 - 1,245 pg/mL [facility] Vit B12 SerPl-mCncon 022 Cobalamin (Vitamin B12) [Mass/Vol] 618 pg/mL Normal 232-1245 [facility] Comment on above: Order Comment: Speci men Type: BLOOD SPECIMENOrdering Facility: [facility] Address: [address] [place] [address], [place] [address] Performed By: #### 3 016-3, 2132-9 ####[facility] LABCLIA [id number] [place] [address] [place] dsDNA Ab Ser IA-aCncon 07-07 DNA double strand Ab IA Qn (S) <12 Normal <30 [facility] Comment on above: Order Comment: Speci men Type: BLOOD SPECIMENOrdering Facility: [facility] Address: [address] [facility] [place] [address] Result Comment: Nega tive for ds DNA Antibodies. <30 IU/mL Negative 30-74 IU/mL Equivocal >74 IU/mL Positive Performed By: #### 2 9374-6, 81497-4, 36719-9, 28601-7, 30357-9, ANAIFR, 34093-4, 06515-9, 56200-3, 00514-3 ####[facility] LABCLIA [id number] [place] [address] [place] HLA B 27on 04-26-2022 HLA-B27 Negative Normal [facility] Comment on above: Result Comment: HLA- B*27 Negative B27 allele interpretation for all loci based on IMGT/HLA database version 3.44 This test was developed and its performance characteristics determined by [facility]. It has not been cleared or approved by the Food and Drug Administration. [facility] CLIA ID Number [id number] . This test was performed using PCR (Polymerase Chain Reaction)/SSOP (Sequence Specific Oligonucleotide Probes) technique. SBT (Sequence Based Typing) and/or SSP (Sequence Specific Primers) may be used as supplemental methods when necessary. Please contact [facility] Customer Service at if you have any questions. . Director of [facility] Laboratory Dr Abdiaziz Shook, PhD Performed By: #### C VDAGA #### [facility] [address] [address] [address] Christos Fallon 25-HYDROXY VIT D (D2+D3 [facility] ) LC/MS-MSon 04-23-2022 25-Hydroxy, Vitamin D 26 ng/mL Critically low [facility] Comment on above: Result Comment: Refe rence Range: All Ages: Target levels 30 - 100 Performed By: #### C MP, TSH, HSTROPN #### [facility] [address] [place] [address] Dr. Christos Fallon 25-Hydroxy, Vitamin D-2 <1.0 Normal [facility] Comment on above: Result Comment: This test was developed and its performance characteristics determined by [facility]. It has not been cleared or approved by the Food and Drug Administration. Performed By: #### C MP, TSH, HSTROPN #### [facility] [address] [place] [address] Dr. Christos Fallon 25-Hydroxy, Vitamin D-3 26 ng/mL Normal [facility] Comment on above: Result Comment: This test was developed and its performance characteristics determined by [facility]. It has not been cleared or approved by the Food and Drug Administration. Performed By: #### C MP, TSH, HSTROPN #### [facility] [address] [place] [address] Dr. Christos Fallon REVERSE T3on 04-20-2022 Reverse T3, Serum 11.2 ng/dL Normal 9.2-24.1 [facility] Comment on above: Result Comment: This test was developed and its performance characteristics determined by [facility]. It has not been cleared or approved by the Food and Drug Administration. Performed By: #### C VDAGA #### [facility] [address] [place] [address] Dr. Christos Fallon THYROID ANTIBODIESon 022 Thyroglobulin Antibody <1.0 Normal 0.0-0.9 [facility] Comment on above: Result Comment: Thyr oglobulin Antibody measured by [employer] Methodology Performed By: #### C VDAGA #### [facility] [address] [place] [address] Dr. Christos Fallon Thyroid Peroxidase (TPO) Ab 11 IU/mL Normal 0-34 [facility] Comment on above: Performed By: #### C VDAGA #### [facility] [address] [place] [address] Dr. Christos Fallon ANTISTREPTOLYSIN O AB (ASO)o n 04-16-2022 Antistreptolysin O Ab 21.8 IU/mL Normal 0.0-200.0 [facility] Comment on above: Performed By: #### C MP, TSH, HSTROPN #### [facility] [address] [place] [address] Dr. Christos Fallon T3, TOTAL (TRIIODOTHYRONINE) on 04-16-2022 T3, TOTAL 115 ng/dL Normal 71-180 [facility] Comment on above: Performed By: #### C MP, TSH, HSTROPN #### [facility] [address] [place] [address] Dr. Christos Fallon FREE T3on 04-14-2022 FREE T3 2.46 pg/mlL Normal 2.18-3.98 [facility] Comment on above: Performed By: #### C MP, TSH, HSTROPN #### [facility] [address] [place] [address] Dr. Christos Fallon FREE T4on 04-14-2022 Free T4 [Mass/Vol] 0.88 ng/dL Normal 0.76-1.46 [facility] Comment on above: Performed By: #### C VDAGA #### [facility] [address] [place] [address] Dr. Christos Fallon TSHon 04-14-2022 TSH 1.027 uIU/mL Normal 0.358-3.[address] [facility] Comment on above: Performed By: #### C MP, TSH, HSTROPN #### [facility] [address] [place] [address] Dr. Christos Fallon CBC AUTO DIFFon 03-22-2022 BASO # 0.1 103/ul Normal 0.0-0.1 [facility] Comment on above: Performed By: #### C MP, TSH, HSTROPN #### [facility] [address] [place] [address] Dr. Christos Fallon Basophils/100 WBC (Bld) 0.7 % Normal 0.2-2.0 [facility] Comment on above: Performed By: #### C MP, TSH, HSTROPN #### [facility] [address] [place] [address] Dr. Christos Fallon EO # 0.3 103/ul Normal 0.0-0.7 [facility] Comment on above: Performed By: #### C MP, TSH, HSTROPN #### [facility] [address] [place] [address] Dr. Christos Fallon Eosinophils/100 WBC (Bld) 3.4 % Normal 0.9-7.0 [facility] Comment on above: Performed By: #### C MP, TSH, HSTROPN #### [facility] [address] [place] [address] Dr. Christos Fallon Erythrocyte distribution width (RBC) [Ratio] 12.5 % Normal 11.0-15.0 [facility] Comment on above: Performed By: #### C MP, TSH, HSTROPN #### [facility] [address] [place] [address] Dr. Christos Fallon Hematocrit (Bld) [Volume fraction] 41.3 % Normal 36.0-48.0 [facility] Comment on above: Performed By: #### C MP, TSH, HSTROPN #### [facility] [address] [place] [address] Dr. Christos Fallon Hemoglobin (Bld) [Mass/Vol] 14.2 g/dL Normal 12.0-16.0 [facility] Comment on above: Performed By: #### C MP, TSH, HSTROPN #### [facility] [address] [place] [address] Dr. Christos Fallon IG # 0.03 10e3/ul Normal 0.00-0.03 [facility] Comment on above: Performed By: #### C MP, TSH, HSTROPN #### [facility] [address] [place] [address] Dr. Christos Fallon IG % 0.4 % Normal 0.0-0.5 [facility] Comment on above: Performed By: #### C MP, TSH, HSTROPN #### [facility] [address] [place] [address] Dr. Christos Fallon LYMPH # 2.3 103/ul Normal 1.2-3.8 [facility] Comment on above: Performed By: #### C MP, TSH, HSTROPN #### [facility] [address] [place] [address] Dr. Christos Fallon Lymphocytes/100 WBC (Bld) 31.3 % Normal 20.5-60.0 [facility] Comment on above: Performed By: #### C MP, TSH, HSTROPN #### [facility] [address] [place] [address] Dr. Christos Fallon MANUAL DIFF REQ NO Normal [facility] Comment on above: Performed By: #### C MP, TSH, HSTROPN #### [facility] [address] [place] [address] Dr. Christos Fallon MCH (RBC) [Entitic mass] 34.8 pg Critically high 26.7-34.0 [facility] Comment on above: Performed By: #### C MP, TSH, HSTROPN #### [facility] [address] [place] [address] Dr. Christos Fallon MCHC (RBC) [Mass/Vol] 34.4 g/dL Normal 29.9-35.2 [facility] Comment on above: Performed By: #### C MP, TSH, HSTROPN #### [facility] [address] [place] [address] Dr. Christos Fallon MCV (RBC) [Entitic vol] 101.2 fL Critically high 81.0-99.0 [facility] Comment on above: Performed By: #### C MP, TSH, HSTROPN #### [facility] [address] [place] [address] Dr. Christos Fallon MONO # 0.9 103/ul Critically high 0.3-0.8 [facility] Comment on above: Performed By: #### C MP, TSH, HSTROPN #### [facility] [address] [place] [address] Dr. Christos Fallon Monocytes/100 WBC (Bld) 12.0 % Normal 1.7-12.0 [facility] Comment on above: Performed By: #### C MP, TSH, HSTROPN #### [facility] [address] [place] [address] [address] Christos Fallon NEUT # 3.9 103/ul Normal 1.4-6.5 [facility] Comment on above: Performed By: #### C MP, TSH, HSTROPN #### [facility] [address] [address] [address] Christos Fallon Neutrophils/100 WBC (Bld) 52.2 % Normal 43.0-75.0 [facility] Comment on above: Performed By: #### C MP, TSH, HSTROPN #### [facility] [address] [place] [address] Dr. Christos Fallon Platelet mean volume (Bld) [Entitic vol] 9.7 fL Normal 9.5-13.5 [facility] Comment on above: Performed By: #### C MP, TSH, HSTROPN #### [facility] [address] [place] [address] Dr. Christos Fallon PLT 296 103/ul Normal 150-450 [facility] Comment on above: Performed By: #### C MP, TSH, HSTROPN #### [facility] [address] [place] [address] Dr. Christos Fallon RBC 4.08 106/ul Critically low 4.20-5.40 [facility] Comment on above: Performed By: #### C MP, TSH, HSTROPN #### [facility] [address] [place] [address] Dr. Christos Fallon WBC 7.4 103/ul Normal 4.0-11.0 [facility] Comment on above: Performed By: #### C MP, TSH, HSTROPN #### [facility] [address] [place] [address] HEAD WO CONon [...] PAL WETZEL Date: 2022-03-22 17:41 Normal [facility] ER URINE PROFILEon 2 Bilirubin Ql (U) Negative Normal NEGATIVE [facility] Comment on above: Performed By: #### C VDAGA #### [facility] [address] [place] [address] Dr. Christos Fallon Clarity (U) CLOUDY Abnormal CLEAR [facility] Comment on above: Performed By: #### C VDAGA #### [facility] [address] [place] [address] Dr. Christos Fallon Color (U) LT. YELLOW Normal YELLOW [facility] Comment on above: Performed By: #### C VDAGA #### [facility] [address] [place] [address] Dr. Christos Fallon ERUAHD A micrscopic examination will be performed if indicated. Normal [facility] Comment on above: Performed By: #### C VDAGA #### [facility] [address] [place] [address] Dr. Christos Fallon Glucose Ql (U) Negative Normal NEGATIVE [facility] Comment on above: Performed By: #### C VDAGA #### [facility] [address] [place] [address] Dr. Christos Fallon Hemoglobin Ql (U) Negative Normal NEGATIVE [facility] Comment on above: Performed By: #### C VDAGA #### [facility] [address] [place] [address] Dr. Christos Fallon Ketones Ql (U) Negative Normal NEGATIVE [facility] Comment on above: Performed By: #### C VDAGA #### [facility] [address] [place] [address] Dr. Christos Fallon LEUKOCYTES Negative Normal NEGATIVE [facility] Comment on above: Performed By: #### C VDAGA #### [facility] [address] [place] [address] Dr. Christos Fallon Nitrite Ql (U) Negative Normal NEGATIVE [facility] Comment on above: Performed By: #### C VDAGA #### [facility] [address] [place] [address] Dr. Christos Fallon pH (U) 6.0 [pH] Normal 5-9 [facility] Comment on above: Performed By: #### C VDAGA #### [facility] [address] [place] [address] Dr. Christos Fallon SPEC GRAVITY 1.010 Normal 1.005-<=1.02 5 [facility] Comment on above: Performed By: #### C VDAGA #### [facility] [address] [place] [address] Dr. Christos Fallon UA PROTEIN Negative Normal NEGATIVE/ TRACE [facility] Comment on above: Performed By: #### C VDAGA #### [facility] [address] [place] [address] Dr. Christos Fallon UR MICRO IND NOT INDICATED Normal [facility] Comment on above: Performed By: #### C VDAGA #### [facility] [address] [place] [address] Dr. Christos Fallon Urobilinogen Qn (U) 0.2 {Peyman'U}/dL Normal 0.2 - 1. 0 [facility] Comment on above: Performed By: #### C VDAGA #### [facility] [address] [place] [address] Dr. Christos Fallon PROF 14(COMP METB)on 022 Albumin [Mass/Vol] 3.6 g/dL Normal 3.4-5.0 [facility] Comment on above: Performed By: #### C MP, HSTROPN, TSH #### [facility] [address] [address] [address] Christos Fallon Albumin/Globulin [Mass ratio] 0.9 {ratio} Normal [facility] Comment on above: Performed By: #### C MP, HSTROPN, TSH #### [facility] [address] [place] [address] Dr. Christos Fallon ALP [Catalytic activity/Vol] 83 U/L Normal 46-116 [facility] Comment on above: Performed By: #### C MP, HSTROPN, TSH #### [facility] [address] [place] [address] Dr. Christos Fallon ALT [Catalytic activity/Vol] 32 U/L Normal 14-59 [facility] Comment on above: Performed By: #### C MP, HSTROPN, TSH #### [facility] [address] [address] [address] Christos Fallon Anion gap [Moles/Vol] 15.4 mmol/L Normal [facility] Comment on above: Performed By: #### C MP, HSTROPN, TSH #### [facility] [address] [address] [address] Chrisots Fallon AST [Catalytic activity/Vol] 15 U/L Normal 15-37 [facility] Comment on above: Performed By: #### C MP, HSTROPN, TSH #### [facility] [address] [address] [address] Christos Fallon Bilirubin [Mass/Vol] 0.3 mg/dL Normal 0.2-1.0 [facility] Comment on above: Performed By: #### C MP, HSTROPN, TSH #### [facility] [address] [address] [address] Christos Fallon Calcium [Mass/Vol] 8.9 mg/dL Normal 8.5-10.1 [facility] Comment on above: Performed By: #### C MP, HSTROPN, TSH #### [facility] [address] [address] [address] Christos Fallon Chloride [Moles/Vol] 102 mmol/L Normal 98-107 [facility] Comment on above: Performed By: #### C MP, HSTROPN, TSH #### [facility] [address] [address] [address] Christos Fallon CO2 [Moles/Vol] 22.7 mmol/L Normal 21.0-32.0 [facility] Comment on above: Performed By: #### C MP, HSTROPN, TSH #### [facility] [address] [place] [address] Dr. Christos Fallon Creatinine [Mass/Vol] 0.97 mg/dL Normal 0.55-1.02 [facility] Comment on above: Performed By: #### C MP, HSTROPN, TSH #### [facility] [address] [place] [address] Dr. Christos Fallon EGFR-AF EGYPTIAN >60 Normal >=60 [facility] Comment on above: Performed By: #### C MP, HSTROPN, TSH #### [facility] [address] [place] [address] Dr. Christos Fallon EGFR-NON AF EGYPTIAN >60 Normal >=60 [facility] Comment on above: Performed By: #### C MP, HSTROPN, TSH #### [facility] [address] [place] [address] Dr. Christos Fallon Globulin (S) [Mass/Vol] 3.8 g/dL Normal [facility] Comment on above: Performed By: #### C MP, HSTROPN, TSH #### [facility] [address] [place] [address] Dr. Christos Fallon Glucose [Mass/Vol] 104 mg/dL Normal 74-106 [facility] Comment on above: Performed By: #### C MP, HSTROPN, TSH #### [facility] [address] [place] [address] Dr. Christos Fallon Potassium [Moles/Vol] 4.1 mmol/L Normal 3.5-5.1 [facility] Comment on above: Performed By: #### C MP, HSTROPN, TSH #### [facility] [address] [address] [address] Christos Fallon Protein [Mass/Vol] 7.4 g/dL Normal 6.4-8.2 [facility] Comment on above: Performed By: #### C MP, HSTROPN, TSH #### [facility] [address] [place] [address] Dr. Christos Fallon Sodium [Moles/Vol] 136 mmol/L Normal 136-145 [facility] Comment on above: Performed By: #### C MP, HSTROPN, TSH #### [facility] [address] [place] [address] Dr. Christos Fallon Urea nitrogen [Mass/Vol] 17.0 mg/dL Normal 7.0-18.0 [facility] Comment on above: Performed By: #### C MP, HSTROPN, TSH #### [facility] [address] [address] [address] Christos Fallon Urea nitrogen/Creatinine [Mass ratio] 17.5 mg/mg Normal [facility] Comment on above: Performed By: #### C MP, HSTROPN, TSH #### [facility] [address] [place] [address] Dr. Christos Fallon TROPONIN, HIGH SENSITIVITYon 03-22-2022 HSTROP <4.0 Normal 4.0-51.3 [facility] Comment on above: Result Comment: CUT- OFF POINTS HAVE BEEN ESTABLISHED BASED ON THE FOURTH UNIVERSAL DEFINITIONS OF MYOCARDIAL INFARCTION. THE UPPER REFERENCE LIMIT (URL) OF TROPONIN, DEFINED THE 99TH PERCENTILE OF cTnI DISTRIBUTION IN A REFERENCE POPULATION, HAS BEEN CONFIRMED THE DECISION THRESHOLD FOR [place] DIAGNOSIS. Performed By: #### C MP, HSTROPN, TSH #### [facility] [address] [place] [address] Dr. Christos Fallon TSHon 03-22-2022 TSH 0.854 uIU/mL Normal 0.358-3.[address] [facility] Comment on above: Performed By: #### C MP, HSTROPN, TSH #### [facility] [address] [address] [address] Christos Fallon ASYMPTOMATIC COVID-19 ANTIGE Non 03-03-2022 EUA Statement SEE BELOW Normal [facility] Comment on above: Result Comment: This [...] sooner. Performed By: #### C VDAGA #### [facility] [address] [place] [address] Dr. Christos Fallon SARS-CoV-2 (COVID-19) RNA LEROY+probe Ql (Unsp spec) Positive Critically abnormal NEGATIVE [facility] Comment on above: Result Comment: SARS -CoV-2 antigen present; does not rule out coinfection with other pathogens. Performed By: #### C VDAGA #### [facility] [address] [place] [address] Dr. Christos Fallon [facility] SARS-CoV-2 (COVID-19) RNA LEROY+probe Ql (Unsp spec) Detected Critically abnormal NOT DETECTED [facility] Comment on above: Result Comment: This test is not yet approved or cleared by the [place] FDA. When there are no FDA-approved or cleared tests available, and other criteria are met, FDA can make tests available under an emergency access mechanism called an Emergency Use Authorization (EUA). The EUA for this test is supported by the [employer] of Health and Human Service's declaration that [...] By: #### C MP, TSH, HSTROPN #### [facility] [address] [place] [address] Dr. Christos Fallon CRPon 11-25-2021 CRP [Mass/Vol] mg/L Normal <=1.0 [facility] Comment on above: Performed By: #### C MP, TSH, HSTROPN #### [facility] [address] [place] [address] Dr. Christos Fallon VIT B12 AND FOLATEon 022 Cobalamin (Vitamin B12) [Mass/Vol] 329.0 pg/mL Normal 239.0-931.0 [facility] Comment on above: Performed By: #### C MP, TSH, HSTROPN #### [facility] [address] [place] [address] Dr. Christos Fallon FOLATE 8.50 ng/mL Normal >=2.76 [facility] Comment on above: Performed By: #### C MP, TSH, HSTROPN #### [facility] [address] [place] [address] Dr. Christos Fallon CBC AUTO DIFFon 11-19-2021 BASO # 0.1 103/ul Normal 0.0-0.1 [facility] Comment on above: Performed By: #### C BC #### [facility] [address] [place] [address] Dr. Christos Fallon Basophils/100 WBC (Bld) 0.8 % Normal 0.2-2.0 [facility] Comment on above: Performed By: #### C BC #### [facility] [address] [place] [address] Dr. Christos Fallon EO # 0.3 103/ul Normal 0.0-0.7 [facility] Comment on above: Performed By: #### C BC #### [facility] [address] [place] [address] Dr. Christos Fallon Eosinophils/100 WBC (Bld) 4.8 % Normal 0.9-7.0 [facility] Comment on above: Performed By: #### C BC #### [facility] [address] [place] [address] Dr. Christos Fallon Erythrocyte distribution width (RBC) [Ratio] 12.2 % Normal 11.0-15.0 [facility] Comment on above: Performed By: #### C BC #### [facility] [address] [place] [address] Dr. Christos Fallon Hematocrit (Bld) [Volume fraction] 41.9 % Normal 36.0-48.0 [facility] Comment on above: Performed By: #### C BC #### [facility] [address] [place] [address] Dr. Christos Fallon Hemoglobin (Bld) [Mass/Vol] 14.2 g/dL Normal 12.0-16.0 [facility] Comment on above: Performed By: #### C BC #### [facility] [address] [place] [address] Dr. Christos Fallon IG # 0.03 10e3/ul Normal 0.00-0.03 [facility] Comment on above: Performed By: #### C BC #### [facility] [address] [place] [address] Dr. Christos Fallon IG % 0.5 % Normal 0.0-0.5 [facility] Comment on above: Performed By: #### C BC #### [facility] [address] [place] [address] Dr. Christos Fallon LYMPH # 1.5 103/ul Normal 1.2-3.8 [facility] Comment on above: Performed By: #### C BC #### [facility] [address] [place] [address] Dr. Christos Fallon Lymphocytes/100 WBC (Bld) 24.6 % Normal 20.5-60.0 [facility] Comment on above: Performed By: #### C BC #### [facility] [address] [place] [address] Dr. Christos Fallon MANUAL DIFF REQ NO Normal [facility] Comment on above: Performed By: #### C BC #### [facility] [address] [place] [address] Dr. Christos Fallon MCH (RBC) [Entitic mass] 34.3 pg Critically high 26.7-34.0 [facility] Comment on above: Performed By: #### C BC #### [facility] [address] [place] [address] Dr. Christos Fallon MCHC (RBC) [Mass/Vol] 33.9 g/dL Normal 29.9-35.2 [facility] Comment on above: Performed By: #### C BC #### [facility] [address] [place] [address] Dr. Christos Fallon MCV (RBC) [Entitic vol] 101.2 fL Critically high 81.0-99.0 [facility] Comment on above: Performed By: #### C BC #### [facility] [address] [place] [address] Dr. Christos Fallon MONO # 0.5 103/ul Normal 0.3-0.8 [facility] Comment on above: Performed By: #### C BC #### [facility] [address] [place] [address] Dr. Christos Fallon Monocytes/100 WBC (Bld) 7.2 % Normal 1.7-12.0 [facility] Comment on above: Performed By: #### C BC #### [facility] [address] [place] [address] Dr. Christos Fallon NEUT # 3.9 103/ul Normal 1.4-6.5 [facility] Comment on above: Performed By: #### C BC #### [facility] [address] [place] [address] Dr. Christos Fallon Neutrophils/100 WBC (Bld) 62.1 % Normal 43.0-75.0 [facility] Comment on above: Performed By: #### C BC #### [facility] [address] [address] [address] Christos Fallon Platelet mean volume (Bld) [Entitic vol] 9.1 fL Critically low 9.5-13.5 [facility] Comment on above: Performed By: #### C BC #### [facility] [address] [address] [address] Christos Fallon PLT 301 103/ul Normal 150-450 [facility] Comment on above: Performed By: #### C BC #### [facility] [address] [address] [address] Christos Fallon RBC 4.14 106/ul Critically low 4.20-5.40 [facility] Comment on above: Performed By: #### C BC #### [facility] [address] [place] [address] Dr. Christos Fallon WBC 6.3 103/ul Normal 4.0-11.0 [facility] Comment on above: Performed By: #### C BC #### [facility] [address] [place] [address] Dr. Christos Fallon FREE T3on 11-19-2021 FREE T3 2.72 pg/mlL Critically low 2.77-5.27 [facility] Comment on above: Performed By: #### C MP, TSH, HSTROPN #### [facility] [address] [address] [address] Christos Fallon FREE T4on 11-19-2021 Free T4 [Mass/Vol] 1.09 ng/dL Normal 0.78-2.19 [facility] Comment on above: Performed By: #### C MP, TSH, HSTROPN #### [facility] [address] [place] [address] Dr. Christos Fallon GLYCOHEMOGLOBIN A1Con 2021 ADA RECOMMENDATION ADA THERAPEUTIC TARG ET 6.0 - 7.0 ACTION SUGGESTED > 7.0 Normal [facility] Comment on above: Performed By: #### A 1C #### [facility] [address] [address] [address] Christos Fallon Glucose [Mass/Vol] 105 mg/dL Normal [facility] Comment on above: Performed By: #### A 1C #### [facility] [address] [place] [address] Dr. Christos Fallon HbA1c (Bld) [Mass fraction] 5.3 % Normal <=6.0 [facility] Comment on above: Performed By: #### A 1C #### [facility] [address] [place] [address] Dr. Christos Fallon LIPID PROFILEon 11-19-2021 CHOL-HDL RATIO NORM SEE BELOW Normal [facility] Comment on above: Result Comment: 3.3 - 4.4 LOW RISK 4.4 - 7.1 AVERAGE RISK 7.1 - 11.0 MODERATE RISK >11.0 HIGH RISK Performed By: #### C MP, TSH, HSTROPN #### [facility] [address] [place] [address] Dr. Christos Fallon Cholesterol [Mass/Vol] 232 mg/dL Critically high <=200 [facility] Comment on above: Performed By: #### C MP, TSH, HSTROPN #### [facility] [address] [place] [address] Dr. Christos Fallon Cholesterol in HDL [Mass/Vol] 60 mg/dL Normal 40-60 [facility] Comment on above: Performed By: #### C MP, TSH, HSTROPN #### [facility] [address] [place] [address] Dr. Christos Fallon Cholesterol in LDL [Mass/Vol] 134.6 mg/dL Normal [facility] Comment on above: Performed By: #### C MP, TSH, HSTROPN #### [facility] [address] [place] [address] Dr. Christos Fallon Cholesterol.total/Cho lesterol in HDL [Mass ratio] 3.9 {ratio} Normal [facility] Comment on above: Performed By: #### C MP, TSH, HSTROPN #### [facility] [address] [place] [address] Dr. Christos Fallon HDL NORMAL > or = 60 mg/dl - LO W CARDIOVASCULAR RISK <40 mg/dl - HIGH CARDIOVASCULAR RISK Normal [facility] Comment on above: Performed By: #### C MP, TSH, HSTROPN #### [facility] [address] [address] [address] Christos Fallon LDL CALC NORMAL SEE BELOW Normal [facility] Comment on above: Result Comment: <100 mg/dl OPTIMAL 100 - 129 mg/dl NEAR OR ABOVE OPTIMAL 130 - 159 mg/dl BORDERLINE HIGH 160 - 189 mg/dl HIGH >190 mg/dl VERY HIGH Performed By: #### C MP, TSH, HSTROPN #### [facility] [address] [address] [address] Christos Fallon Triglyceride [Mass/Vol] 187 mg/dL Critically high <=150 [facility] Comment on above: Performed By: #### C MP, TSH, HSTROPN #### [facility] [address] [address] [address] Christos Fallon VLDL CALC 37.4 mg/dL Normal [facility] Comment on above: Performed By: #### C MP, TSH, HSTROPN #### [facility] [address] [address] [address] Christos Fallon PROF 14(COMP METB)on 022 Albumin [Mass/Vol] 3.8 g/dL Normal 3.4-5.0 [facility] Comment on above: Performed By: #### C MP, TSH, HSTROPN #### [facility] [address] [address] [address] Christos Fallon Albumin/Globulin [Mass ratio] 1.1 {ratio} Normal [facility] Comment on above: Performed By: #### C MP, TSH, HSTROPN #### [facility] [address] [address] [address] Christos Fallon ALP [Catalytic activity/Vol] 77 U/L Normal 46-116 [facility] Comment on above: Performed By: #### C MP, TSH, HSTROPN #### [facility] [address] [place] [address] Dr. Christos Fallon ALT [Catalytic activity/Vol] 34 U/L Normal 14-59 [facility] Comment on above: Performed By: #### C MP, TSH, HSTROPN #### [facility] [address] [address] [address] Christos Fallon Anion gap [Moles/Vol] 11.5 mmol/L Normal [facility] Comment on above: Performed By: #### C MP, TSH, HSTROPN #### [facility] [address] [address] [address] Christos Fallon AST [Catalytic activity/Vol] 21 U/L Normal 15-37 [facility] Comment on above: Performed By: #### C MP, TSH, HSTROPN #### [facility] [address] [place] [address] Dr. Christos Fallon Bilirubin [Mass/Vol] 0.7 mg/dL Normal 0.2-1.3 [facility] Comment on above: Performed By: #### C MP, TSH, HSTROPN #### [facility] [address] [address] [address] Christos Fallon Calcium [Mass/Vol] 8.8 mg/dL Normal 8.5-10.1 [facility] Comment on above: Performed By: #### C MP, TSH, HSTROPN #### [facility] [address] [place] [address] Dr. Christos Fallon Chloride [Moles/Vol] 104 mmol/L Normal 98-107 [facility] Comment on above: Performed By: #### C MP, TSH, HSTROPN #### [facility] [address] [place] [address] Dr. Christos Fallon CO2 [Moles/Vol] 28.6 mmol/L Normal 22.0-30.0 [facility] Comment on above: Performed By: #### C MP, TSH, HSTROPN #### [facility] [address] [address] [address] Christos Fallon Creatinine [Mass/Vol] 0.88 mg/dL Normal 0.52-1.04 [facility] Comment on above: Performed By: #### C MP, TSH, HSTROPN #### [facility] [address] [place] [address] Dr. Christos Fallon EGFR-AF EGYPTIAN >60 Normal >=60 [facility] Comment on above: Performed By: #### C MP, TSH, HSTROPN #### [facility] [address] [address] [address] Christos Fallon EGFR-NON AF EGYPTIAN >60 Normal >=60 [facility] Comment on above: Performed By: #### C MP, TSH, HSTROPN #### [facility] [address] [place] [address] Dr. Christos Fallon Globulin (S) [Mass/Vol] 3.5 g/dL Normal [facility] Comment on above: Performed By: #### C MP, TSH, HSTROPN #### [facility] [address] [place] [address] Dr. Christos Fallon Glucose [Mass/Vol] 101 mg/dL Normal 74-106 [facility] Comment on above: Performed By: #### C MP, TSH, HSTROPN #### [facility] [address] [place] [address] Dr. Christos Fallon Potassium [Moles/Vol] 4.1 mmol/L Normal 3.4-5.0 [facility] Comment on above: Performed By: #### C MP, TSH, HSTROPN #### [facility] [address] [place] [address] Dr. Christos Fallon Protein [Mass/Vol] 7.3 g/dL Normal 6.1-8.2 [facility] Comment on above: Performed By: #### C MP, TSH, HSTROPN #### [facility] [address] [place] [address] Dr. Christos Fallon Sodium [Moles/Vol] 140 mmol/L Normal 137-145 [facility] Comment on above: Performed By: #### C MP, TSH, HSTROPN #### [facility] [address] [address] [address] Christos Fallon Urea nitrogen [Mass/Vol] 11.0 mg/dL Normal 7.0-18.0 [facility] Comment on above: Performed By: #### C MP, TSH, HSTROPN #### [facility] [address] [address] [address] Christos Fallon Urea nitrogen/Creatinine [Mass ratio] 12.5 mg/mg Normal [facility] Comment on above: Performed By: #### C MP, TSH, HSTROPN #### [facility] [address] [address] [address] Christos Fallon TSHon 11-19-2021 TSH 0.774 uIU/mL Normal 0.470-4.[address] [facility] Comment on above: Performed By: #### C MP, TSH, HSTROPN #### [facility] [address] [place] [address] Dr. Christos Fallon TSH RANGE SEE BELOW Normal [facility] Comment on above: Result Comment: <0.3 4 UIU/ml HYPERTHYROID 0.34-5.60 UIU/ml EUTHYROID >5.60 UIU/ml HYPOTHYROID Performed By: #### C MP, TSH, HSTROPN #### [facility] [address] [place] [address] Dr. Christos Fallon XR TSPINE 2 VIEWSon 11-20-19 22 XR TSPINE 2 VIEWS EXAMINATION: XR CSPI NE MIN 4 VIEWS, XR LSPINE MIN 4 [...] TAMIE GUILLERMO Date: 2021-11-19 12:49 Normal [facility] Cardiovascular Lab Reporton 11-17-2021 Cardiovascular Lab Report [facility] Patient Name: Kaila Vasquez [facility] MR #: [id number] Physician: Jonny Fowler M.D. Department of Service Date: 11/17/2021 Medicine Birthdate: 1980 Division of Room #: CC Cardiology Adult Cardiovascular Services [facility] [address] [facility]. [place] [address] Cardiovascular Laboratory Report PROCEDURE: Implantable loop recorder [...] subcutaneous pocket, into which was deployed a [employer] BioMonitor 3 implantable loop recorder. Via off [...] A/Jonny Fowler M.D. Date Trans: 11/17/2021 12:41 P/mmo [id number] cc: Mert Lama M.D. [address] [place] [address] A [facility] [id number] Normal [facility] Covid-19 PCR (CVDTBH)on SARS-CoV-2 (COVID-19) RNA LEROY+probe Ql (Unsp spec) Not detected Normal NOT DETECTED [facility] Comment on above: Result Comment: This test is not yet approved or cleared by the [place] FDA. When there are no FDA-approved or cleared tests available, and other criteria are met, FDA can make tests available under an emergency access mechanism called an Emergency Use Authorization (EUA). The EUA for this test is supported by the [place] of Health and Human Service's (HHS's) declaration [...] By: #### C MP, TSH, HSTROPN #### [facility] [address] [place] [address] Dr. Christos Fallon Covid-19 PCR (CVDTBH)on SARS-CoV-2 (COVID-19) RNA LEROY+probe Ql (Unsp spec) Not detected Normal NOT DETECTED [facility] Comment on above: Result Comment: When [...] for this test is supported by the Mixer [place] of Health and Human Service's declaration that [...] longer be used). Performed By: #### C [facility] #### [facility] [address] [place], [place] [address] Dr. Christos Fallon Cardiovascular Lab Reporton 06-17-2021 Cardiovascular Lab Report [facility] Patient Name: Christina [facility] MR #: [id number] Physician: Vishal Rogers MD Department of Service Date: 06/17/2021 Medicine Birthdate: 1980 Division of Room #: CC Cardiology Adult Cardiovascular Services [place] [address] Cardiovascular Laboratory Report COMPREHENSIVE EP STUDY AND [...] same (more content not included)... Normal [facility] FEMUR LEFT 2 [facility] 1 FEMUR LEFT 2 [facility] Department of Radiology [address] [place] [id number] ======== Patient Name: KAILA VASQUEZ : 1980 Sex: F Age: Race: White Pt. 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 Approved by:Tavon Chacon01/15/2021 11:40 AM. I, Gelacio Pfeiffer,have reviewed the image(s) and agree with the findings in this report. Electronically signed: Gelacio Pfeiffer. Transcribed by: [email or web address], User Resident: TAVON BELCHER Electronically Signed by: GELACIO PFEIFFER @ 01/15/2021 12:03 PM I personally read this/these film(s) with this resident Normal [facility] Comment on above: Order Comment: evalu ate Operative Reporton Operative Report MR#: [id number] S [facility] Pt. Name: Kaila Vasquez Room #: 0C Discharge 12/05/2020 Date: Birthdate: 1980 OPERATIVE REPORT DATE OF SURGERY: 12/05/2020 SURGEON: Pamella Brennan M.D. PREOPERATIVE DIAGNOSIS: Left distal femur osteochondroma. POSTOPERATIVE DIAGNOSIS: Left distal femur osteochondroma. PROCEDURE PERFORMED: Left distal femur osteochondroma excision. PUMP OPERATOR BYPRODUCTS: Alaina Edouard M.D. ANESTHESIA: General endotracheal. SPECIMENS: [...] i (more content not included)... Normal [facility] FEMUR LEFT 2 [facility] 1 FEMUR LEFT 2 [facility] Department of Radiology [address] [place] [phone] ======== Patient Name: KAILA VASQUEZ : 1980 Sex: F Age: Race: White Pt. Location: OUTP Patient Status: O Ordered Date: 12/05/2020 7:30:00 AM Completed Date: 12/05/2020 10:05 AM Requesting Provider: PAMELLA BRENNAN Attending Provider: PAMELLA BRENNAN Report Copy To: Signs & Symptoms: LEFT DISTAL FEMUR OSTEOCHONDROMA EXCISION History: Comments: LEFT DISTAL FEMUR OSTEOCHONDROMA EXCISION Exam: FEMUR LEFT 2 [facility] ======== FEMUR LEFT 2 VWS 12/05/2020 10:05 AM CLINICAL INDICATIONS: LEFT DISTAL [...] purposes. Electronically signed: Ching Garcia. Transcribed by: [email or web address], User Resident: Electronically Signed by: CHING GARCIA @ 12/05/2020 11:54 AM Normal [facility] Comment on above: Order Comment: LEFT DISTAL FEMUR OSTEOCHONDROMA EXCISION POC GLUCOSE LABon 12-05-2020 Glucose [Mass/Vol] 108 mg/dL High 70-100 [facility] Comment on above: Performed By: #### 8 5499 ####[facility] *MRSA/MSSA DNA NASALon 11-28 *MRSA/MSSA DNA NASAL Clinical Report: (D ) Specimen: NASAL SWAB Collected: 11/28/2020 13:22 Status: Final Last Updated: 2020 13:05 MSSA DNA (Final) Negative MRSA DNA (Final) Negative Normal [facility] Comment on above: Performed By: #### 3 1595 ####[facility] [place] [address], [facility] APTTon 11-28-2020 aPTT Coag (Bld) [Time] 29.1 s Normal 25.0-35.0 [facility] Comment on above: Result Comment: ALL RESULTS [...] THIS PURPOSE. Performed By: #### 5 7307, 18457 #### [facility] [address] [place] [address], [facility] BASIC METABOLIC PANELon - Calcium [Mass/Vol] 9.5 mg/dL Normal 8.6-10.3 [facility] Comment on above: Performed By: #### 0 0071 #### [facility] [address] [place] [address], [facility] Chloride [Moles/Vol] 104 mmol/L Normal 98-107 [facility] Comment on above: Performed By: #### 0 0071 #### [facility] [address] [place] [address], [place] CO2 [Moles/Vol] 28 mmol/L Normal 21-31 [facility] Comment on above: Performed By: #### 0 0071 #### [facility] [address] [place] [address], [place] Creatinine [Mass/Vol] 0.90 mg/dL Normal 0.60-1.20 [facility] Comment on above: Performed By: #### 0 0071 #### [facility] [address] [place] [address], [place] GFR/1.73 sq M.predicted among blacks MDRD (S/P/Bld) [Vol rate/Area] mL/min/{1.73_m2} Normal >60 [facility] Comment on above: Performed By: #### 0 0071 #### [facility] [address] [place] [address], [place] GFR/1.73 sq M.predicted among non-blacks MDRD (S/P/Bld) [Vol rate/Area] mL/min/{1.73_m2} Normal >60 [facility] Comment on above: Performed By: #### 0 0071 #### [facility] [address] [place] [address], [facility] Glucose [Mass/Vol] 132 mg/dL High 70-100 [facility] Comment on above: Performed By: #### 0 0071 #### [facility] [address] [place] [address], [facility] Potassium [Moles/Vol] 3.8 mmol/L Normal 3.5-5.1 [facility] Comment on above: Performed By: #### 0 0071 #### [facility] [address] [place] [address], [facility] Sodium [Moles/Vol] 138 mmol/L Normal 136-145 [facility] Comment on above: Performed By: #### 0 0071 #### [facility] [address] [place] [address], [facility] Urea nitrogen [Mass/Vol] 9 mg/dL Normal 7-25 [facility] Comment on above: Performed By: #### 0 0071 #### [facility] [address] [facility] [place] [address], [facility] CBC W/DIFFon 11-28-2020 ABS IMM GRANS 0.0 10*3/uL Normal 0.0-0.2 [facility] Comment on above: Performed By: #### 5 0103 ####[facility] [facility] [place] [address], [facility] ABS NEUTROPHILS 7.2 10*3/uL Normal 1.6-7.6 [facility] Comment on above: Performed By: #### 5 010 ####[facility] [facility] [place] [address], [facility] Basophils (Bld) [#/Vol] 0.1 10*3/uL Normal 0.0-0.2 [facility] Comment on above: Performed By: #### 5 0103 ####[facility] [facility] [place] [place] [address], [facility] Basophils/100 WBC (Bld) 0.6 % Normal 0.0-1.0 [facility] Comment on above: Performed By: #### 5 0103 ####[facility] [facility] [place] [address], [facility] Eosinophils (Bld) [#/Vol] 0.3 10*3/uL Normal 0.0-0.5 [facility] Comment on above: Performed By: #### 5 3 ####[facility] [facility].[address] Eosinophils/100 WBC (Bld) 2.6 % Normal 0.0-6.0 [facility] Comment on above: Performed By: #### 5 3 ####[facility] [facility].[address] Erythrocyte distribution width (RBC) [Ratio] 12.6 % Normal 11.5-15.0 [facility] Comment on above: Performed By: #### 3 ####[facility] [facility].[address] Hematocrit (Bld) [Volume fraction] 42.6 % Normal 36.0-45.0 [facility] Comment on above: Performed By: #### 3 ####[facility] [facility].[address] Hemoglobin (Bld) [Mass/Vol] 14.4 g/dL Normal 12.0-15.0 [facility] Comment on above: Performed By: #### 3 ####[facility] [facility].[address] IMMATURE GRANS 0.3 % Normal 0.0-1.0 [facility] Comment on above: Performed By: #### 5 0103 ####[facility] [place] [address] Lymphocytes (Bld) [#/Vol] 2.1 10*3/uL Normal 1.2-4.0 [facility] Comment on above: Performed By: #### 5 0103 ####[facility] [place] [address] Lymphocytes/100 WBC (Bld) 20.2 % Normal 20.0-45.0 [facility] Comment on above: Performed By: #### 5 3 ####[address] MCH (RBC) [Entitic mass] 33.6 pg High 27.0-33.0 [facility] Comment on above: Performed By: #### 5 3 ####[address] MCHC (RBC) [Mass/Vol] 33.8 g/dL Normal 32.0-35.0 [facility] Comment on above: Performed By: #### 3 ####[place] [id number] [address] MCV (RBC) [Entitic vol] 99.5 fL High 82.0-98.0 [facility] Comment on above: Performed By: #### 5 3 ####[address] Monocytes (Bld) [#/Vol] 0.7 10*3/uL Normal 0.1-1.0 [facility] Comment on above: Performed By: #### 5 3 ####[address] MONOS 6.4 % Normal 5.0-12.0 [facility] Comment on above: Performed By: #### 5 0103 ####[facility] [place] [address], [facility] Neutrophils/100 WBC (Bld) 69.9 % Normal 40.0-72.0 [facility] Comment on above: Performed By: #### 5 0103 ####[facility] [facility].[address] Nucleated RBC/100 WBC (Bld) [Ratio] 0 % Normal 0-0 [facility] Comment on above: Performed By: #### 5 0103 ####[facility] [facility].[address] PLAT CNT 346 10*3/uL Normal 150-400 [facility] Comment on above: Performed By: #### 5 0103 ####[facility] [facility].[address] RBC (Bld) [#/Vol] 4.28 10*6/uL Normal 3.80-5.00 [facility] Comment on above: Performed By: #### 5 0103 ####[facility] [facility] [place] [address], [facility] WBC (Bld) [#/Vol] 10.24 10*3/uL Normal 4.00-10.60 [facility] Comment on above: Performed By: #### 5 0103 ####[facility] [facility].[address] PROTHROMBIN TIMEon 1 INR Coag (PPP) [Relative time] 0.99 {INR} Normal 0.91-1.16 [facility] Comment on above: Result Comment: ACCC P [...] CHEST 1995;[id number]. Performed By: #### 5 7307, [address]2686 #### [facility] [address] PT Coag (PPP) [Time] 13.1 s Normal 12.3-14.8 [facility] Comment on above: Result Comment: ALL RESULTS MUST BE INTERPRETED WITH RESPECT TO BLOOD DRAWING ARTIFACT OR DILUTION ERROR OF ANTICOAGULANT AT THE TIME OF SAMPLING. Performed By: #### 5 7307, 13258 #### [facility] [address] [place] [address], [facility] TYPE AND CROSSMATCHon 2020 ABO INTERPRETATION O Normal [facility] Comment on above: Performed By: #### 6 2594 #### [facility] [address] [place] [address], [facility] RH INTERPRETATION Positive Normal [facility] Comment on above: Performed By: #### 6 2594 #### [facility] [address] [place] [address], [facility] URINALYSISon 11-28-2020 Appearance (U) CLEAR Normal CLEAR [facility] Comment on above: Performed By: #### 1 0008 #### [facility] [address] [place] [address], [facility] Bilirubin Ql (U) Negative Normal NEGATIVE [facility] Comment on above: Performed By: #### 1 0008 #### [facility] [address] [place] [address], [place] Color (U) YELLOW Normal YELLOW [facility] Comment on above: Performed By: #### 1 0008 #### [facility] [address] [place] [address], [place] Glucose Ql (U) Negative Normal NEGATIVE [facility] Comment on above: Performed By: #### 1 0008 #### [facility] [address] [place] [address], [facility] Hemoglobin Ql (U) Negative Normal NEGATIVE [facility] Comment on above: Performed By: #### 1 0008 #### [facility] [address] [facility] [address], [facility] KETONE Negative Normal NEGATIVE [facility] Comment on above: Performed By: #### 1 0008 #### [facility] [address] [facility] [place] [address], [place] LEUK JORDAN Negative Normal NEGATIVE [facility] Comment on above: Performed By: #### 1 0008 #### [facility] [address] [place] [address], [facility] MICRO NOT DONE Normal [facility] Comment on above: Result Comment: Micr oscopics not performed on urines with negative chemical reactions unless requested in original order Performed By: #### 1 0008 #### [facility] [address] [facility] [place] [address], [place] Nitrite Ql (U) Negative Normal NEGATIVE [facility] Comment on above: Performed By: #### 1 0008 #### [facility] [address] [place] [address], [place] pH (U) 6.0 [pH] Normal 5.0-8.0 [facility] Comment on above: Performed By: #### 1 0008 #### [facility] [address] [place] [address], [facility] Protein Ql (U) Negative Normal NEGATIVE [facility] Comment on above: Performed By: #### 1 0008 #### [facility] [address] [place] [address], [facility] SPEC GRAV 1.018 Normal 1.015-1.020 [facility] Comment on above: Performed By: #### 1 0008 #### [facility] [address] [place], [place] [id number] [place] [address] Vital Signs Date Time Vital Sign Value Performing Clinician Faci karine 08-24-2022 13:44-0500 Body height 162.6 cm Janell Sy MD Work Phone: [facility] 08-24-2022 13:44-0500 Body weight 112.95 kg Janell Sy MD Work Phone: [facility] 08-24-2022 13:44-0500 Diastolic blood pressure 73 mm[Hg] Janell Sy MD Work Phone: [facility] 08-24-2022 13:44-0500 Heart rate 88 /min Janell Sy MD Work Phone: [facility] 08-24-2022 13:44-0500 SaO2% (BldA) [Mass fraction] 98 % Janell Sy MD Work Phone: [facility] 08-24-2022 13:44-0500 Systolic blood pressure 112 mm[Hg] Janell Sy MD Work Phone: [facility] 08-05-2022 10:00-0500 Diastolic blood pressure 88 mm[Hg] Carmen Johnson PT Work Phone: [facility] 08-05-2022 10:00-0500 Heart rate 78 /min Carmen Johnson PT Work Phone: [facility] 08-05-2022 10:00-0500 Systolic blood pressure 134 mm[Hg] Carmen Johnson PT Work Phone: [facility] 07-07-2022 08:12-0500 Body height 162.6 cm Glenroy Syed MEDICAL SCIENTIFIC OFFICER.TEXTILE MACHINERY INSTRUCTOR Work Phone: [facility] 07-07-2022 08:12-0500 Body weight 112.04 kg Glenroytoan Syed MEDICAL SCIENTIFIC OFFICER.TEXTILE MACHINERY INSTRUCTOR Work Phone: [facility] 07-07-2022 08:12-0500 Diastolic blood pressure 88 mm[Hg] Glenroy Syed MEDICAL SCIENTIFIC OFFICER.TEXTILE MACHINERY INSTRUCTOR Work Phone: [facility] 07-07-2022 08:12-0500 Heart rate 82 /min Glenroy Syed MEDICAL SCIENTIFIC OFFICER.TEXTILE MACHINERY INSTRUCTOR Work Phone: [facility] 07-07-2022 08:12-0500 SaO2% (BldA) [Mass fraction] 98 % Glenroy Syed MEDICAL SCIENTIFIC OFFICER.TEXTILE MACHINERY INSTRUCTOR Work Phone: [facility] 07-07-2022 08:12-0500 Systolic blood pressure 134 mm[Hg] Glenroy Syed MEDICAL SCIENTIFIC OFFICER.TEXTILE MACHINERY INSTRUCTOR Work Phone: [facility] 12-09-2021 13:59-0400 Blood Pressure Location Pamella SANABRIA [facility] [place] 12-09-2021 13:59-0400 Diastolic blood pressure 78 mm[Hg] Pamella ZIMMERMANL [facility] [place] 12-09-2021 13:59-0400 Heart rate 68 /min Pamella ZIMMERMANL [facility] [place] 12-09-2021 13:59-0400 Respiratory rate 16 /min Pamella ZIMMERMANL [facility] [place] 12-09-2021 13:59-0400 Systolic blood pressure 118 mm[Hg] Pamella NILL [facility] [place] Encounters Encounter Date Encounter Type Care Provider Facility Start: 12-19-2023 End: 12-20-2023 ambulatory TAX ACCOUNTANT Cristiane Gutiérrez Facility:[facility] Start: 12-02-2023 ambulatory [facility] Start: 10-25-2023 End: 10-25-2023 ambulatory IRMA CHUNGO Not Available Start: 08-25-2023 End: 08-25-2023 ambulatory IRMA SUDHA Not Available Start: 12-21-2022 End: 12-21-2022 ambulatory [facility] Start: 12-15-2022 End: 12-15-2022 ambulatory [facility] Start: 12-15-2022 End: 12-15-2022 ambulatory [facility] Start: 10-15-2022 Orders Only Glenroy Syed APRN.TEXTILE MACHINERY INSTRUCTOR Work Phone: Neurology Comment on above: 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 (Primary Dx) Start: 10-14-2022 End: 10-14-2022 ambulatory GLENROY SYED Facility:[facility] Start: 09-09-2022 ambulatory Mauri Ross RT(R) Ra soto Comment on above: Radiology MRI Start: 09-09-2022 Patient encounter procedure Mauri LUCAS(R) RONALDO EASON Start: 09-02-2022 End: 09-02-2022 ambulatory ELENA GUAN Facility: Start: 08-24-2022 End: 08-24-2022 ambulatory GLENROY SYED Facility:[facility] Start: 08-24-2022 End: 08-24-2022 Patient encounter procedure Janell Sy MD Work Phone: Cardiology Comment on above: KANG (obstructive sle ep apnea) (Primary Dx); Dizziness; Palpitations; Obesity, morbid, BMI 40.0-49.9 (HCC); SVT (supraventricular tachycardia) ([facility]); Chronic fatigue; Vitamin D deficiency Start: 08-20-2022 Orders Only Len Shea APRN.TEXTILE MACHINERY INSTRUCTOR Work Phone: Neurology Comment on above: Ocular migraine (Dinora andres Dx) Start: 08-19-2022 End: 08-19-2022 ambulatory [facility] Provider Neurology Comment on above: Neuro Ophthalmologis t Start: 08-16-2022 ambulatory [facility] Provider Neurology Comment on above: MRI Start: 08-12-2022 End: 08-12-2022 ambulatory GLENROY SYED Facility:[facility] Start: 08-12-2022 End: 08-12-2022 ambulatory Carmen Seese PT Work Phone: Physical Therapy Comment on above: Dizziness (Primary D x); Cervicalgia; Headaches Start: 08-05-2022 End: 08-05-2022 ambulatory GLENROY SYED Facility:[facility] Start: 08-05-2022 End: 08-05-2022 ambulatory Carmen Seese PT Work Phone: Physical Therapy Comment on above: Dizziness (Primary D x); Cervicalgia; Headaches Start: 07-29-2022 End: 07-29-2022 ambulatory WM RODRIGUEZ Facility:[facility] Start: 07-21-[address] MERT LAMA Facilit y:[facility] Start: 07-07-2022 Telephone encounter Glenroy rodriguez MEDICAL SCIENTIFIC OFFICER.TEXTILE MACHINERY INSTRUCTOR Work Phone: Neurology Comment on above: [facility] Start: 07-07-2022 End: 07-07-2022 ambulatory GLENROY SYED Facility:[facility] Start: 07-07-2022 End: 07-07-2022 Patient encounter procedure Glenroy Syed MEDICAL SCIENTIFIC OFFICER.TEXTILE MACHINERY INSTRUCTOR Work Phone: Neurology Comment on above: Dizziness [...] RODRIGUEZ Facility:[facility] Start: 02-26-2022 End: 02-26-2022 ambulatory WM RODRIGUEZ Facility:[facility] Start: 01-31-2022 End: 01-31-[address] PEG AGUIRRE Facility:[facility] Start: 12-30-2021 End: 12-30-[address] PAMELLA SANABRIA Facility:[facility] Start: 12-09-2021 End: 12-09-2021 Patient encounter procedure Pamella SANABRIA General Surgery [facility] Start: 11-25-2021 End: 11-26-[address] MERT LAMA Facility:[facility] Start: 11-23-2021 Encounter for genera l adult medical examination without abnormal findings DR MERT LAMA [facility] Start: 11-19-2021 End: 11-20-[address] MERT LAMA Facility:[facility] Start: 11-19-2021 End: 11-20-2021 Encounter for general adult medical examination without abnormal findings DR MERT LAMA Facility:[facility] Start: 11-17-2021 End: 11-18-2021 ambulatory MERT LAMA Facility:[facility] Start: 11-14-2021 End: 11-15-2021 ambulatory ANU CABAN Facility:[facility] Start: 10-08-2021 End: 10-08-2021 ambulatory WM RODRIGUEZ Facility:[facility] Start: 06-17-2021 End: 06-18-2021 ambulatory MERT LAMA Facility:[facility] Start: 04-16-2021 End: 05-23-2021 ambulatory MERT LAMA Facility:[facility] Start: 12-05-2020 End: 12-06-2020 ambulatory MERT LAMA Facility:[facility] Procedures Date Procedure Procedure Detail Performing Clinician Start: 08-24-2022 Ecg routine ecg w/le ast 12 lds i&r only [facility] Provider Start: 12-05-2020 ANESTH KNEE AREA SURGERY MERT LAMA Start: 12-05-2020 REMOVE FEMUR LESION CARLOS HAEL P MIKA Start: 11-28-2020 Antibody screen MERT ORTIZ Comment on above: Performed By: #### 6 [id number] #### [address] Start: 11-04-2020 Cystourethroscopy wi th dilation of urethral stricture Pamella ZIMMERMANWillem Abdominal hysterectomy Wale SANABRIA Bilateral complete salpingectomy Pamella ZIMMERMANWillem Cardiac radiofrequen cy ablation using ultrasound guidance Pamella SANABRIA Cholecystectomy Pamella SANABRIA Excision of osteochondroma Nestor SANABRIA History of ankle surgery Carlos SANABRIA Plan of Treatment Date Care Activity Detail Author Start: 08-08-2022 DEPRESSION ASSESSMENT DEPRESSION ASS [facility] Start: 07-07-2022 End: 09-06-2022 25-hydroxyvitamin D3 [Mass/volume] in Serum or Plasma [facility] Work Phone: Comment on above: Expected: 07/07/2022 , Expires: 09/06/2022 Start: 07-07-2022 End: 09-06-2022 ESEQUIEL BY IFA WITH REFLEX [facility] Work Phone: Comment on above: Expected: 07/07/2022 , Expires: 09/06/2022 Start: 04-08-2022 Influenza vaccination INFLUENZA (#1) [facility] Start: 08-08-2021 DEPRESSION ASSESSMENT DEPRESSION ASS [facility] Start: 11-05-2020 COVID-19 VACCINE (3 - Booster for Giancarlo series) COVID-19 VACCINE (3 - Booster for Giancarlo series) [facility] Start: 2012 HPV TESTING HPV TESTING [facility] Start: 11-30-2003 PAP TESTING PAP TESTING [facility] Start: 2001 Urine microalbumin profile DTA P,TDAP,TD (1 - Tdap) [facility] Start: 2000 HEPATITIS C SCREENING HEPATITIS C SC PARKER [facility] Start: 2000 HIV SCREENING HIV SCREENING [facility] Start: 1982 HEPATITIS B (1 of 3 - 3-dose series) HEPATITIS B (1 of 3 - 3-dose series) [facility] End: 08-24-2023 ECG COMPLETE ECG COMPLETE ECG Routine Dizziness Palpitations Obesity, morbid, BMI 40.0-49.9 (HCC) 1 Occurrences starting 08/24/2022 until 08/24/2023 [facility] Work Phone: Comment on above: 1 Occurrences starti ng 08/24/2022 until 08/24/2023 ECG COMPLETE ECG COMPLETE ECG 08/24/2022 1:56 PM EST [facility] End: 07-07-2023 Echocardiography ECHO Cardiology Routine Palpitations 1 Occurrences starting 07/07/2022 until 07/07/2023 [facility] Work Phone: Comment on above: 1 Occurrences starti ng 07/07/2022 until 07/07/2023 End: 08-06-2023 Mri brain brain stem w/o w/contrast material MRI BRAIN WO/W IVCON Radiology Routine Dizziness Vision changes 1 Occurrences starting 07/07/2022 until 08/06/2023 [facility] Work Phone: Comment on above: 1 Occurrences starti ng 07/07/2022 until 08/06/2023 End: 09-15-2023 Mri spinal canal cervical w/o & w/contr matrl MRI CERVICAL SPINE WO/W IVCON Radiology Routine Dizziness Vision changes Cervicalgia Disturbance of skin sensation 1 Occurrences starting 08/16/2022 until 09/15/2023 [facility] Work Phone: Comment on above: 1 Occurrences starti ng 08/16/2022 until 09/15/2023 [facility] Immunizations Immunization Date Immunization Notes Care Provider Tayo cullen 09-10-2020 SARS-CoV-2 (COVID-19 ) Ad26 vaccine, recombinant Pamella NILL [facility] [place] 08-12-2020 SARS-CoV-2 (COVID-19 ) Ad26 vaccine, recombinant Pamella NILL [facility] [place] Payers Date Payer Category Payer Unknown [id number] 2021 Unknown [id number] 1982 Unknown [id number] 2.16.8 40.1.168147.3.579.2.647 1982 Unknown [id number] 2.16.8 40.1.025460.3.579.2.647 1982 Unknown [id number] 2.16.8 40.1.136500.3.579.2.647 1982 Unknown [id number] 2.16.8 40.1.337744.3.579.2.647 1982 Unknown [id number] 2.16.84 0.1.649174.3.579.2.593 1982 Unknown [id number] 2.16.84 0.1.336049.3.579.2.593 1982 Unknown [id number] 2.16.84 0.1.367784.3.579.2.593 1982 Unknown [id number] 2.16.84 0.1.777538.3.579.2.593 1982 Unknown [id number] 2.16.84 0.1.108989.3.579.2.593 1982 Unknown [id number] 2.16.84 0.1.316483.3.579.2.593 1982 Unknown [id number] 2.16.84 0.1.669524.3.579.2.593 1982 Unknown [id number] 2.16.84 0.1.267180.3.579.2.593 1982 Unknown [id number] 2.16.84 0.1.257168.3.579.2.593 1982 Unknown [id number] 2.16.84 0.1.566184.3.579.2.593 1982 Unknown [id number] 2.16.84 0.1.404125.3.579.2.593 1982 Unknown [id number] 2.16.84 0.1.021294.3.579.2.593 1982 Unknown [id number] 2.16.84 0.1.650135.3.579.2.593 1982 Unknown [id number] 2.16.84 0.1.878206.3.579.2.593 1982 Unknown [id number] 2.16.84 0.1.538465.3.579.2.593 1982 Unknown [id number] 2.16.84 0.1.121333.3.579.2.1259 1982 Unknown [id number] 2.16.84 0.1.510902.3.579.2.1259 1982 Unknown [id number] 2.16.8 40.1.453068.3.579.2.727 1959 Unknown [id number] Social History Date Type Detail Facility Start: 12-09-2021 End: 07-07-2022 Tobacco smoking status Never smoked tobacco (finding) [facility] [place] Tobacco smoking status Never [facility] [place] Sex Assigned At Female [facility] [place] Start: 07-07-2022 Tobacco use and exposure Smokeless tobacco non-user [facility] Start: 1980 Sex Assigned At Not on file [facility] Start: 06-27-2022 End: 07-07-2022 Exposure to SARS-CoV-2 (event) Not sure [facility] Start: 08-24-2022 Alcohol intake Current drinke r of alcohol (finding) [facility] Start: 08-24-2022 Alcohol Comment occasionally 1 -2 times a months 2-3 drinks [facility] Clinical Notes 12-30-2021 to 12-21-2022 Mauri Ross, RT(R) - 09/09/2022 2:11 PM Marilyn Sy MD - 08/24/2022 1:45 PM ESTTelephone Encounter - Glenroy Syed APRN.TEXTILE MACHINERY INSTRUCTOR - 08/16/2022 8:28 AM DARIENCarmen Johnson, PT - 08/12/2022 2:51 PM EST Note Date & Type Note Facility 12-21-2022 Note Date of Telehealth V isit: 12/21/2022 The patient was notified that using 3rd libertarian telecommunication application (e.g., [employer]anna[employer]) is not HIPPA compliant and may carry some privacy risks. Yes The visit was conducted avcy-lr-wiec with the use of audio and video technology Eliza. between patient and provider for a virtual [...] documentation in this note for specific details. [place] [facility] Consult Note Reason for Consultation: Palpitations Patient feeling like she was having skipped beats and palpitations. Biotronik loop check reveals long RP tachycardia more suggestive of sinus and some episodes of non sustained AT for a few seconds. She also needs KANG eval. Prior HPI: Kaila Vasquez is a 42 y.o. year old seen by Dr. Laam, for c/o palpitations Patient first noted the [...] sleep recently and that was recorded on [employer] residential monitor reveals evidence of sinus tachycardia 120 bpm. Pt had COVID recently and since then has been experiencing palpitations. She notes these when she is changing positions and also when she bends down. 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 [facility] 12-15-2022 Note Patient here c/o sym ptoms. [...] study yet. She was worked up in [facility] ED in Aug 2022 for palpitations. Review of Systems Cardiovascular: Positive for chest pain, dyspnea on exertion, irregular heartbeat, near-syncope and palpitations. Respiratory: Positive for shortness of breath. Neurological: Positive for dizziness, headaches and light-headedness. All other systems reviewed and are negative. [facility] 12-15-2022 Note [place] [facility] Consul t Note Reason for Consultation: [...] sleep recently and that was recorded on [facility] residential monitor reveals evidence of sinus tachycardia 120 bpm. Pt had COVID recently and since then has been experiencing palpitations. She notes these when she is changing positions and also when she bends down. 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 [facility] 10-14-2022 Note HNO ID: [id number] Author: RT Mary(R) Service: ? Author Type: [...] 14, 2022 4:55 PM [facility] 10-14-2022 Note HNO ID: [id number] Author: Papa Rea RN Service: Radiology Author [...] 2022 TIME: 3:20 PM [facility] 09-09-2022 Note HNO ID: [id number] Author: RT Odessa(R) Service: ? Author Type: [...] 2:11 PM PAGER/CONTACT #: [facility] 09-09-2022 History of Present illness Narrative RADIOLOGY [...] PM PAGER/CONTACT #: documented in this encounter [facility] 08-24-2022 Note HNO ID: [id number] Author: Janell Sy MD Service: ? Author Type: Physician Type: Progress Notes Filed: 08/24/2022 2:17 PM Note Text: Heart and Vascular Axis SECTION OF REGIONAL CARDIOLOGY OUTPATIENT VISIT DATE [...] Cardiac work-up includes: Echocardiogram on 05/19/2020 at [facility] showed normal ejection fraction. No valvular [...] ECG COMPLETE 4. Obesity, morbid, BMI 40.0-49.9 ([facility]) E66.01 ECG COMPLETE 5. SVT (supraventricular tachycardia) ([facility]) I47.1 6. Chronic fatigue R53.82 7. Vitamin [...] (more content not included)... [facility] 08-24-2022 History of Present illness Narrative Images from the original note were not included. [facility] V[facility] Ax[facility] SECTION OF REGIONAL CARDIOLOGY OUTPATIENT VISIT DATE [...] Cardiac work-up includes: Echocardiogram on 05/19/2020 at [facility] showed normal ejection fraction. No valvular [...] ECG COMPLETE 4. Obesity, morbid, BMI 40.0-49.9 ([facility]) E66.01 ECG COMPLETE 5. SVT (supraventricular tachycardia) ([facility]) I47.1 6. Chronic fatigue R53.82 7. Vitamin [...] PVC (premature ventricular contraction) SVT (supraventricular tachycardia) ([facility]) Vitamin D deficiency No past surgical history [...] twice daily.^Disp: ^Rfl: documented in this encounter [facility] 08-19-2022 Note HNO ID: [id number] Author: Mauri Chun OD Service: ? Author Type: ECHOCARDIOGRAPHY TECHNOLOGIST Type: Progress Notes Filed: 08/19/2022 10:22 AM Note Text: Ocular health is unremarkable with no abnormalities. Normal ON appearance Ophthalmic migraines Glasses Rx given with slight prism [facility] 08-16-2022 Miscellaneous Notes signed We can add it to fully evaluate her symptoms. -LP documented in this encounter [facility] 08-12-2022 Note HNO ID: [id number] Author: Carmen Johnson, PT Service: ? Author [...] 60 Carmen Johnson, PT [facility] 08-12-2022 History of Present illness Narrative Episode [...] Carmen Johnson PT documented in this encounter [facility] 08-05-2022 Note HNO ID: [id number] Author: Carmen Johnson PT Service: ? Author [...] Planned: 8 Planned Treatment Interventions: Therapeutic exercise (07767);Neuromuscular re-education (11089);Manual therapy (60940);Therapeutic activities (55449);Self-fci management (66553);Patient/Family/Caregiver Education;Gait Training (83988);Canalith Repositioning Maneuvers (06391) PLAN FOR NEXT VISIT: Detailed neck exam [...] (more content not included)... [facility] 08-05-2022 History of Present illness Narrative Episode [...] Planned: 8 Planned Treatment Interventions: Therapeutic exercise (15259);Neuromuscular re-education (52647);Manual therapy (55853);Therapeutic activities (84229);Self-fci management (08360);Patient/Family/Caregiver Education;Gait Training (69152);Canalith Repositioning Maneuvers (12325) PLAN FOR NEXT VISIT: Detailed neck exam [...] Positional Testing Right Juan-Hallpike: No nystagmus;Asymptomatic Left Falkland-Hallpike: No nystagmus;Asymptomatic Right Nylen Barany: No nystagmus;Asymptomatic [...] Demonstration;Requires Review/Additional Education TREATMENT: PT Treatment Interventions: Self-Skilled Nursing Management;Therapeutic Exercise Evaluation Therapeutic Exercise: 1: c/s retractions x 10, cues for technique Skilled Intervention: Patient was educated in proper exercise technique and purpose for exercises. Patient education as noted. Self-Skilled Nursing Management: 1: Educated regarding potential multifactorial cause [...] Carmen Johnson PT documented in this encounter [facility] 07-07-2022 Note HNO ID: [id number] Author: Glenroy Syed APRN.TEXTILE MACHINERY INSTRUCTOR Service: ? Author Type: Nurse Practitioner Type: Progress Notes Filed: 07/07/2022 12:28 PM Note Text: [facility] General Neurology New Patient Evaluation CHIEF [...] started the cascade of events. In late 2019, she was sitting in bed and had [...] over a month. She has seen an broadcast chief engineer and was told she was having occular migraine by her market analyst. A couple times a month she gets [...] (more content not included)... [facility] 07-07-2022 Miscellaneous Notes Noted. Provider notified. Received medical records from [facility]. Uploaded to chart and forwarded for review. documented in this encounter [facility] 07-07-2022 Instructions Glenroy Syed APRN.TEXTILE MACHINERY INSTRUCTOR - 07/07/2022 9:06 AM EST Plan: Baseline labs MRI Brain for multiple symptoms ECHO for palpitations and arrhythmias Aspirin 81mg daily in the setting of known arrhythmias Consult to [place] for dizziness Consult to Cardiology for second opinion Consult to ophthalmology Follow up after testing documented in this encounter [facility] 07-07-2022 History of Present illness Narrative Images from the original note were not included. [facility] General Neurology New Patient Evaluation CHIEF [...] over a month. She has seen an broadcast chief engineer and was told she was having occular migraine by her market analyst. A couple times a month she gets [...] Finger Abduction (U) 5 Finger Abduction 5 Metal Die Finisher 5 Metal Die Finisher 5 Right Lower Extremity: (of 5) Left [...] over a month. She has seen an broadcast chief engineer and was told she was having occular migraine by her market analyst. A couple times a month she gets [...] VT reccommended. Patient wanting second opinion from market analyst within the [facility], referral placed. Unlikely autonomic dysfunction with unremarkable tilt and orthostatic vitals in office unconvincing (did not take BB today). Additionally, with visual changes, recommended seeing neuro granite polisher machine. Will obtain additional labs as well. Follow [...] which included preparing to see the patient, [id number] patient care, completing clinical documentation, obtaining and/or reviewing separately obtained history, performing a medically appropriate examination, counseling and educating the patient/family/caregiver, ordering medications, tests, or procedures, and care coordination (not separately reported). Glenroy Syed APRN.CNP [facility] General Neurology [address] [place] [address] Appointment: [phone] In regards to blood work, testing, and radiology reports these are released automatically to the patients. We do not comment on most testing on mychart in a message or commentary unless there [...] your PCP/referring physician documented in this encounter [facility] 03-16-2022 Note EXAM: CHEST 2 VIEWS [...] by: BETTY MORALES Date: 2022-03-16 18:13 [facility] 12-30-2021 Note [facility] [place] [place] NAME: KAILA VASQUEZ DATE OF : MEDICAL REC#: [id number] BORING AND FILLING MACHINE OPERATOR: 1602 [place] GASTELUM TRANSADMIT DATE: 12/30/2021 09:02:00 LOG CLERK DATE: 12/30/2021 21:00 DICTATING PHYSICIAN: PAMELLA SANABRIA [...] Sanabria MD on 01/06/2022 08:31 AM EDT [facility] Signed and Approved by: DR PAMELLA SANABRIA . 01/06/2022 08:31:00 [facility] Evaluation + Plan note No data available for this section [facility] [place] Evaluation note Diagnosis Dizziness- Primary Dizziness and giddiness Migraine aura without headache Migraine with aura, without mention of intractable migraine without mention of status migrainosus Palpitations Chronic fatigue Other malaise and fatigue Vision changes Unspecified visual disturbance Disturbance of skin sensation [facility]* Diagnosis Dizziness- Primary Dizziness and giddiness Cervicalgia Headaches [facility] [place]* Diagnosis Dizziness- Primary Dizziness and giddiness Cervicalgia Headaches [facility] [place] [facility]* Diagnosis Cervicalgia- Primary Dizziness Dizziness and giddiness Vision changes Unspecified visual disturbance Disturbance of skin sensation [facility] [place] [facility]* Diagnosis Ocular migraine- Primary Other forms of migraine, without mention of intractable migraine without mention of status migrainosus [facility] Diagnosis KANG (obstructive sleep apnea)- Primary Obstructive sleep apnea (adult) (pediatric) Dizziness Dizziness and giddiness Palpitations Obesity, morbid, BMI 40.0-49.9 (HCC) Morbid obesity SVT (supraventricular tachycardia) ([facility]) Other specified cardiac dysrhythmias Chronic fatigue Other malaise and fatigue Vitamin D deficiency Unspecified vitamin D deficiency documented in this encounter [facility] note* Diagnosis Degeneration of intervertebral disc of cervical region with osteophyte of cervical vertebra- Primary documented in this encounter [facility] Discharge instructions No data available for this section [facility] [place] Reason for referral (narrative)* Outpatient Procedure (Routine) - Authorized Specialty Diagnoses / Procedures Referred By Contac t Referred To Contact [facility] Diagnoses Dizziness Palpitations Obesity, morbid, BMI 40.0-49.9 (HCC) Procedures ECG COMPLETE ECG ROUTINE ECG W/LEAST 12 LDS W/I&R Janell Sy MD [address] [place] [address] [facility] [place] [address] Referral ID Status Reason Start Date Expiration Date Visits Requested Visits Authorized [id number] Authorized Auto-Generat ed Referral 08/24/2022 08/24/2023 1 1 [facility] Summary Purpose Family History No Family History [...] By Contac t Referred To Contact Spine [facility] Diagnoses Degeneration of intervertebral disc of cervical region with osteophyte of cervical vertebra Procedures CONSULT TO [facility] OFFICE/OUTPATIENT [facility] 60-74 MINUTES Glenroy Syed, MEDICAL SCIENTIFIC OFFICER.TEXTILE MACHINERY INSTRUCTOR [address] [place] [address] Referral ID Status Reason Start Date Expiration Date Visits Requested Visits Authorized [id number] Authorized PCP Requested Referral 10/15/2022 10/15/2023 1 1 Specialty Diagnoses / Procedures Referred By Contac t Referred To Contact Ophthalmology Diagnoses Ocular migraine Procedures CONSULT TO OPHTHALMOLOGY OFFICE/OUTPATIENT [facility] 60-74 MINUTES Len Shea, MEDICAL SCIENTIFIC OFFICER.TEXTILE MACHINERY INSTRUCTOR [address] [facility] [address] [place] [address] Josefina Grimes MD [address] [place] [address] Referral ID Status Reason Start Date Expiration Date Visits Requested Visits Authorized [id number] Authorized PCP Requested Referral 08/20/2022 08/20/2023 1 1 Specialty Diagnoses / Procedures Referred By Contac t Referred To Contact Cardiology Diagnoses Dizziness Palpitations Procedures CONSULT TO CARDIOLOGY OFFICE/OUTPATIENT [facility] 60-74 MINUTES Glenroy Syed, MEDICAL SCIENTIFIC OFFICER.TEXTILE MACHINERY INSTRUCTOR [address] [place] [id number] Referral ID Status Reason Start Date Expiration Date Visits Requested Visits Authorized [id number] Authorized PCP Requested Referral 2 07/07/2023 1 1 Specialty Diagnoses / Procedures Referred By Contac t Referred To Contact MR IMAGING Diagnoses Dizziness Vision changes Procedures MRI BRAIN WO/W IVCON MRI BRAIN BRAIN STEM W/O W/CONTRAST MATERIAL Glenroy Syed, MEDICAL SCIENTIFIC OFFICER.TEXTILE MACHINERY INSTRUCTOR [address] [place] [phone] Mr Imaging Referral ID Status Reason Start Date Expiration Date Visits Requested Visits Authorized [id number] Authorized Auto-Generat ed Referral 2 08/21/2022 1 1 Specialty Diagnoses / Procedures Referred By Contac t Referred To Contact Ophthalmology Diagnoses Vision changes Procedures CONSULT TO OPHTHALMOLOGY OFFICE/OUTPATIENT [facility] 60-74 MINUTES Glenroy Syed, MEDICAL SCIENTIFIC OFFICER.TEXTILE MACHINERY INSTRUCTOR [address] [place] [address] Josefina Grimes MD [address] [place] [address] Referral ID Status Reason Start Date Expiration Date Visits Requested Visits Authorized [id number] Authorized PCP Requested Referral 2 07/07/2023 1 1 Specialty Diagnoses / Procedures Referred By Contac t Referred To [facility] Diagnoses Palpitations Procedures ECHO ECHO TTHRC R-T 2D W/WOM-MODE COMPL SPEC&COLR D Glenroy Syed, MEDICAL SCIENTIFIC OFFICER.TEXTILE MACHINERY INSTRUCTOR [id number] [facility] [place] [address] Referral ID Status Reason Start Date Expiration Date Visits Requested Visits Authorized [id number] Authorized Auto-Generat ed Referral 2 07/07/2023 1 1 Additional Source Comments INFORMATION SOURCE (unrecogn ized section and content) DATE CREATED AUTHOR 11/24/2021 [facility] DATE CREATED AUTHOR AUTHOR'S ORGANIZ ATION 07/20/2022 [facility] DATE CREATED AUTHOR AUTHOR'S ORGANIZ ATION 09/06/2022 [facility] DATE CREATED AUTHOR AUTHOR'S ORGANIZ ATION 10/16/2022 [facility] DATE CREATED AUTHOR AUTHOR'S ORGANIZ ATION 10/26/2023 [facility]ical [facility] DATE CREATED AUTHOR AUTHOR'S ORGANIZ ATION 12/04/2023 [facility] DATE CREATED AUTHOR AUTHOR'S ORGANIZ ATION 12/24/2023 [facility] Source Comments (unrecognize d section and content) In the event this informatio n is protected by the Federal Confidentiality of Alcohol and Drug Abuse Patient Records regulations: The Federal rules restrict any use of the information to criminally investigate or prosecute any alcohol or drug abuse patient.[facility] Hospital[facility] the event this information is protected by the Federal Confidentiality of Alcohol and Drug Abuse Patient Records regulations: The Federal rules restrict any use of the information to criminally investigate or prosecute any alcohol or drug abuse patient.[facility] HospitalIn the event this information is protected by the Federal Confidentiality of Alcohol and Drug Abuse Patient Records regulations: The Federal rules restrict any use of the information to criminally investigate or prosecute any alcohol or drug abuse patient.[facility] Hospital[facility] the event this information is protected by the Federal Confidentiality of Alcohol and Drug Abuse Patient Records regulations: The Federal rules restrict any use of the information to criminally investigate or prosecute any alcohol or drug abuse patient.[facility] HospitalIn the event this information is protected by the Federal Confidentiality of Alcohol and Drug Abuse Patient Records regulations: The Federal rules restrict any use of the information to criminally investigate or prosecute any alcohol or drug abuse patient.[facility] HospitalIn the event this information is protected by the Federal Confidentiality of Alcohol and Drug Abuse Patient Records regulations: The Federal rules restrict any use of the information to criminally investigate or prosecute any alcohol or drug abuse patient.[facility] HospitalIn the event this information is protected by the Federal Confidentiality of Alcohol and Drug Abuse Patient Records regulations: The Federal rules restrict any use of the information to criminally investigate or prosecute any alcohol or drug abuse patient.[facility] HospitalIn the event this information is protected by the Federal Confidentiality of Alcohol and Drug Abuse Patient Records regulations: The Federal rules restrict any use of the information to criminally investigate or prosecute any alcohol or drug abuse patient.[facility] HospitalIn the event this information is protected by the Federal Confidentiality of Alcohol and Drug Abuse Patient Records regulations: The Federal rules restrict any use of the information to criminally investigate or prosecute any alcohol or drug abuse patient.[facility] HospitalIn the event this information is protected by the Federal Confidentiality of Alcohol and Drug Abuse Patient Records regulations: The Federal rules restrict any use of the information to criminally investigate or prosecute any alcohol or drug abuse patient.[facility] Reason for Visit (unrecogniz ed section [...] NEW RS PT VESTIBULAR DIZZY Glenroy Syed, MEDICAL SCIENTIFIC OFFICER.TEXTILE MACHINERY INSTRUCTOR [id number] [place] [id number] SeeCarmen vazquez, PT [address] [place] [address] Referral ID Status Reason Start Date Expiration Date Visits Re quested Visits Authorized [id number] Closed 08/08/2021 08/07/2022 30 30 Reason Comments Physical Therapy Specialty Diagnoses / Procedures Referred By Contac t Referred To Contact PHYSICAL THERAPY Diagnoses Dizziness Procedures Physical Therapy Glenroy Syed, MEDICAL SCIENTIFIC OFFICER.TEXTILE MACHINERY INSTRUCTOR [id number] [place] [id number] [address] [place] [facility] [address] [place] [address] Referral ID Status Reason Start Date Expiration Date V isits Requested Visits Authorized [id number] Pending Review 08/12/2022 11/10/2022 1 1 Reason Comments Establish Care Palpitations Dizziness Specialty Diagnoses / Procedures Referred By Contac t Referred To Contact Cardiology Diagnoses Dizziness Palpitations Procedures CONSULT TO CARDIOLOGY OFFICE/OUTPATIENT [facility] MDM 60-74 MINUTES Glenroy Syed, MEDICAL SCIENTIFIC OFFICER.TEXTILE MACHINERY INSTRUCTOR [id number] [place] [id number] Referral ID Status Reason Start Date Expiration Date V isits Requested Visits Authorized [id number] Closed PCP Requested Referral 07/07/2022 07/07/2023 1 1 Reason Comments Radiology MRI Care Teams (unrecognized sec tion and content) Scaling 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 Specialty Start Date End Date Mert Lama MD [address] [place] [address] Referring Family Medicine 06/10/22 Scaling 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 Specialty Start Date End Date Mert Lama MD [address] [place] [address] Referring Family [facility] 06/10/22 Scaling 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 Specialty Start Date End Date Mert Lama MD [address] [place] [address] Referring Family [facility] 06/10/22 Scaling 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 Specialty Start Date End Date Mert Lama MD [address] [place] [address] Referring Family Medicine 06/10/22 Scaling 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 Specialty Start Date End Date Mert Lama MD [address] [address] Referring [facility] 06/10/22 Scaling 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 Specialty Start Date End Date Mert Lama MD [address] [place] [address] Referring [facility] 06/10/22 Scaling 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 Specialty Start Date End Date Mert Lama MD [address] [place] [address] Referring [facility] 06/10/22 Scaling 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 Specialty Start Date End Date Mert Lama MD [address] [place] [address] Referring [facility] 06/10/22 FOR RECORDS PERTAINING TO PATIENTS [...] BE BASED ON THE PRIMARY CLINICAL RECORDS. [facility] [employer] provides no warranty or guarantee of the accuracy or completeness of information in this document.
--- NOTE | 2023-12-28 06:54 | MR_ITS ---
[address] [address] Patient Name: KAILA OTOOLE MRN: [id number] date: 1980 Sex: F Assigned Patient Location: MRI Current Patient Location: MRI Accession/Order Number: [id number] Exam Date: 12/28/2023 07:03 Report Date: 12/28/2023 09:45 At the request of: YE RODRIGUEZ Procedure: MR lumbar spine wo con EXAMINATION: MR lumbar spine wo con HISTORY: Low Back PAin, Moderate Degenerative Facet Arthropathy L5-S1 COMPARISON: No relevant comparison available. TECHNIQUE: A variety of imaging planes and parameters were utilized for visualization of suspected pathology. FINDINGS: For the purposes of numbering, sagittal T2 image # 8 extends from the T10-T11 vertebral body superiorly to the S3 level inferiorly. PARASPINAL AREA: Normal with no visible mass. BONES: Normal alignment of the lumbar vertebral bodies with no acute fracture or spondylolisthesis. No bone edema. No significant spondylosis CORD/CAUDA EQUINA: Normal caliber, contour, and signal intensity. DISC LEVELS: 12-L1: No significant disc/facet abnormality, spinal stenosis, or foraminal stenosis. L1-L2: Early degenerative disc disease is present without focal protrusion or neural impingement. L2-L3: No significant disc/facet abnormality, spinal stenosis, or foraminal stenosis. L3-L4: No significant disc/facet abnormality, spinal stenosis, or foraminal stenosis. L4-L5: No significant disc/facet abnormality, spinal stenosis, or foraminal stenosis. L5-S1: Disc space narrowing and disc desiccation. No disc bulge or herniation. No central or foraminal stenosis MR/MR lumbar spine wo con IMPRESSION: Mild discogenic changes most significant at L5-S1 No disc bulge or herniation. No central or foraminal stenosis Electronically authenticated by: LEEANNE HERNANDEZ Date: 12/28/2023 09:45
== END 2023-12-28 06:50 | disposition home or self-care (01) ==
LOC: MRI 06:49
PROVIDERS: PCP Family Medicine; Visit Provider Nurse Practitioner
DX: M54.50 Low back pain, unspecified (principal); M47.816 Spondylosis without myelopathy or radiculopathy, lumbar region
CPT/HCPCS: 72148

== ENCOUNTER 2023-12-29 13:49 | Outpatient (OUT) | payer BC, SELFPAY ==
--- NOTE | 2023-12-29 13:54 | MR_ITS ---
[address] [address] Patient Name: KAILA OTOOLE MRN: [id number] date: 1980 Sex: F Assigned Patient Location: MRI Current Patient Location: MRI Accession/Order Number: [id number] Exam Date: 12/29/2023 14:00 Report Date: 12/29/2023 15:59 At the request of: YE RODRIGUEZ Procedure: MR cervical spine wo con EXAMINATION: MR thoracic spine wo con, MR cervical spine wo con HISTORY: Moderate facet arthritis , pain COMPARISON: No relevant comparison available. TECHNIQUE: Axial T1 and T2; Sagittal T1, T2, and STIR sequences. Images were performed without contrast. CERVICAL SPINE: FINDINGS: CRANIOCERVICAL AREA: Normal foramen magnum with no Chiari malformation. PARASPINAL AREA: Normal with no visible mass. BONES: Normal alignment with no acute fracture or spondylolisthesis. No bone edema. CORD: Normal caliber, contour, and signal intensity. CERVICAL DISC LEVELS: C2-C3: No significant disc/facet abnormality, spinal stenosis, or foraminal stenosis. C3-C4: Early degenerative disc disease is present without focal protrusion or neural impingement. C4-C5: Moderate degenerative disc disease is present without visible neural impingement. C5-C6: Early degenerative disc disease is present without focal protrusion or neural impingement. C6-C7: Early degenerative disc disease is present without focal protrusion or neural impingement. C7-T1:. No significant disc/facet abnormality, spinal stenosis, or foraminal stenosis. MR/MR cervical spine wo con IMPRESSION: Degenerative changes No significant disc herniation. No central or foraminal stenosis THORACIC SPINE: FINDINGS: CORD: Normal caliber, contour, and signal intensity. BONES: Normal alignment with no acute fracture, dislocation or bone edema. Area of signal abnormality in the T8 vertebral body likely a hemangioma DISCS: Disc desiccation T7-T8 PARASPINAL AREA: No visible mass. OTHER: Negative. No abnormal contrast enhancement. IMPRESSION: Mild degenerative disc desiccation T7-T8 No significant disc herniation. No central or foraminal stenosis Electronically authenticated by: LEEANNE HERNANDEZ Date: 12/29/2023 15:59
--- NOTE | 2023-12-29 13:56 | MR_ITS ---
[address] [address] Patient Name: KAILA OTOOLE MRN: [id number] date: 1980 Sex: F Assigned Patient Location: MRI Current Patient Location: MRI Accession/Order Number: [id number] Exam Date: 12/29/2023 14:00 Report Date: 12/29/2023 15:59 At the request of: YE RODRIGUEZ Procedure: MR thoracic spine wo con EXAMINATION: MR thoracic spine wo con, MR cervical spine wo con HISTORY: Moderate facet arthritis , pain COMPARISON: No relevant comparison available. TECHNIQUE: Axial T1 and T2; Sagittal T1, T2, and STIR sequences. Images were performed without contrast. CERVICAL SPINE: FINDINGS: CRANIOCERVICAL AREA: Normal foramen magnum with no Chiari malformation. PARASPINAL AREA: Normal with no visible mass. BONES: Normal alignment with no acute fracture or spondylolisthesis. No bone edema. CORD: Normal caliber, contour, and signal intensity. CERVICAL DISC LEVELS: C2-C3: No significant disc/facet abnormality, spinal stenosis, or foraminal stenosis. C3-C4: Early degenerative disc disease is present without focal protrusion or neural impingement. C4-C5: Moderate degenerative disc disease is present without visible neural impingement. C5-C6: Early degenerative disc disease is present without focal protrusion or neural impingement. C6-C7: Early degenerative disc disease is present without focal protrusion or neural impingement. C7-T1:. No significant disc/facet abnormality, spinal stenosis, or foraminal stenosis. MR/MR thoracic spine wo con IMPRESSION: Degenerative changes No significant disc herniation. No central or foraminal stenosis THORACIC SPINE: FINDINGS: CORD: Normal caliber, contour, and signal intensity. BONES: Normal alignment with no acute fracture, dislocation or bone edema. Area of signal abnormality in the T8 vertebral body likely a hemangioma DISCS: Disc desiccation T7-T8 PARASPINAL AREA: No visible mass. OTHER: Negative. No abnormal contrast enhancement. IMPRESSION: Mild degenerative disc desiccation T7-T8 No significant disc herniation. No central or foraminal stenosis Electronically authenticated by: LEEANNE HERNANDZE Date: 12/29/2023 15:59
== END 2023-12-29 13:50 | disposition home or self-care (01) ==
LOC: MRI 13:50
PROVIDERS: PCP Family Medicine; Visit Provider Nurse Practitioner
DX: M54.50 Low back pain, unspecified (principal); M47.817 Spondylosis without myelopathy or radiculopathy, lumbosacral region; M50.30 Other cervical disc degeneration, unspecified cervical region; M51.34 Other intervertebral disc degeneration, thoracic region
CPT/HCPCS: 72141; 72146

== ENCOUNTER 2023-12-30 06:23 | Emergency (ER) | payer BC, SELFPAY ==
[2023-12-30 06:28] VITALS: BP 132/91; PULSE 80; TEMP 36.8; O2SAT 97; BMI 40.8
--- OUTSIDE RECORDS SUMMARY | 2023-12-30 06:31 | XMS_ITS | CCD ---
Author Organization [facility] Care Team Providers Care Compensation Administrator Name Role Phone MERT LAMA Referring Unavailable PAMELLA BRENNAN Attending Unavailable MIKA, PAMELLA Ang Surgeon Unavailable PAMELLA BRENNAN Admitting Unavailable [place] Procedure Practitioner Unavailab MERT Caban Primary Care [...] Attending Unavailable MERT LAMA Primary Care Physician [phone] Mert Lama MD Unavailable [phone] DANIEL, DR MERT Forrest Primary Care Unavailable [...] DR MERT Forrest Primary Care Unavailable JENNIFER, MW Admitting Unavailable MEE, ANU Attending Unavailable MEE, [...] Comment on above: Take 1 capsule by [facility] once daily. 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 Date of Illness: From: 12/19/2023 To: 12/21/2023 May Return to Work On: 12/22/2023 Sincerely, JERMAIN Stewart-C [address] [address] [facility] Lab Reportson 12-20-2023 Lab Reports [id number]#1.00 TIFF Normal [facility] Physician Orderon 12-20-2023 Physician Order [id number]#1.00 TIFF Normal [facility] RAD - MISCon 12-20-2023 RAD - MISC [id number]#1.00 TIFF Normal [facility] Ambulatory Visit Summaryon 0 12-19-2023 Ambulatory [...] BMI 40.0-44.9, adult Non-smoker Pickup at [facility]/pharmacy #[id number] New meloxicam (meloxicam 15 mg Tab) 1 Tablets By Mouth Every day Low back pain with sciatica BMI 40.0-44.9, adult Non-smoker Pickup at [facility]/pharmacy #[id number] New methylPREDNISolone (Medrol 4 mg Tab) 1 Packets By Mouth As Directed Low back pain with sciatica BMI 40.0-44.9, adult Non-smoker Duration: 6 Days as directed on package labeling Pickup at [facility]/pharmacy #[id number] Unchanged metoprolol (Metoprolol tartrate 50 mg Tab) 1 Tablets By Mouth 2 times a day Pharmacy Information [facility]/pharmacy #[id number]: [address], [place] [id number] [phone] Medications and Immunizations Administered Given ketorolac 30 [...] for choosing us for your care. Normal [facility] Consenton 12-19-2023 Consent [id number]#1.00 TIFF Normal [facility] Family Medicine Office/Clini c Noteon 12-19-2023 Family Medicine Office/Clinic Note HPI Staff Kaila is a 43 year old female presenting to [facility] care Establish Care: History: Any previous diagnosis: see problem list, arthritis History of seeing any specialist: When was your last doctors visit: Last provider: Dr Lama Any recent labs: 1.5 years ago CC, pt wouldl like yearly labs and she will have done at [facility] 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 Had x-ray done at [facility] for spine over a year or more [...] for spasm, 20 cap(s), Refill(s) 0, [facility]/pharmacy #[id number], 165.1, cm, 12/19/23 13:17:00 EDT, Height/Length Dosing, 114.6, kg, 12/19/23 13:17:00 EDT, Weight Dosing ketorolac, 30 mg = 1 mL, Injection, IntraMuscular, Once, Stop date 12/19/23 13:35:00 EDT, Routine, Start date 12/19/23 13:35:00 EDT, 12/19/23 13:35:00 EDT meloxicam, 15 mg = 1 tab(s), Oral, Daily, # 30 tab(s), Refills(s) 0, Pharmacy: [facility]/pharmacy #[id number], 165.1, cm, 12/19/23 13:17:00 EDT, Height/Length Dosing, 114.6, kg, 12/19/23 13:17:00 EDT, Weight Dosing methylPREDNISolone, = 1 packet(s), Oral, As Directed, as directed on package labeling, X 6 day(s), # 21 tab(s), Refills(s) 0, Pharmacy: [facility]/pharmacy #[id number], 165.1, cm, 12/19/23 13:17:00 EDT, Height/Length Dosing, 114.6, kg, 12/19/23 13:17:00 EDT, Weight Dosing 2. BMI 40.0-44.9, adult (Z68.41: Body mass index [BMI] 40.0-44.9, adult) BMI education complete Ordered: cyclobenzaprine, 15 mg, 1 cap(s), Oral, Bedtime for spasm, 20 cap(s), Refill(s) 0, [facility]/pharmacy #[id number], 165.1, cm, 12/19/23 13:17:00 EDT, Height/Length Dosing, 114.6, kg, 12/19/23 13:17:00 EDT, Weight Dosing ketorolac, 30 mg = 1 mL, Injection, IntraMuscular, Once, Stop date 12/19/23 13:35:00 EDT, Routine, Start date 12/19/23 13:35:00 EDT, 12/19/23 13:35:00 EDT meloxicam, 15 mg = 1 tab(s), Oral, Daily, # 30 tab(s), Refills(s) 0, Pharmacy: [facility]/pharmacy #[id number], 165.1, cm, 12/19/23 13:17:00 EDT, Height/Length Dosing, 114.6, kg, 12/19/23 13:17:00 EDT, Weight Dosing methylPREDNISolone, = 1 packet(s), Oral, As Directed, as directed on package labeling, X 6 day(s), # 21 tab(s), Refills(s) 0, [id number], 165.1, cm, 12/19/23 13:17:00 EDT, Height/Length Dosing, 114.6, kg, 12/19/23 13:17:00 EDT, Weight Dosing 3. Non-smoker (Z78.9: Other specified health status) continue not smoking Ordered: cyclobenzaprine, 15 mg, 1 cap(s), Oral, Bedtime for spasm, 20 cap(s), Refill(s) 0, [facility]/pharmacy #[id number], 165.1, cm, 12/19/23 13:17:00 EDT, Height/Length Dosing, 114.6, kg, 12/19/23 13:17:00 EDT, Weight Dosing ketorolac, 30 mg = 1 mL, Injection, IntraMuscular, Once, Stop date 12/19/23 13:35:00 EDT, Routine, Start date 12/19/23 13:35:00 EDT, 12/19/23 13:35:00 EDT meloxicam, 15 mg = 1 tab(s), Oral, Daily, # 30 tab(s), Refills(s) 0, Pharmacy: [facility]/pharmacy #[id number], 165.1, cm, 12/19/23 13:17:00 EDT, Height/Length Dosing, 114.6, kg, 12/19/23 13:17:00 EDT, Weight Dosing methylPREDNISolone, = 1 packet(s), Oral, As Directed, as directed on package labeling, X 6 day(s), # 21 tab(s), Refills(s) 0, Pharmacy: [facility]/pharmacy #[id number], 165.1, cm, 12/19/23 13:17:00 EDT, Height/Length Dosing, 114.6, kg, 12/19/23 13:17:00 EDT, Weight Dosing Follow-up No qualifying data available Problem List/Past Medical History Ongoing Anemia Anxiety (more content not included)... [facility] Comment on above: Result Comment: Elec tronically Signed By: Cristiane Brasher\.br\Date and Time Signed: 12/19/23 13:59 EDT Physician Orderon 12-19-2023 Physician Order [id number]#1.00 TIFF [facility] Consultation Noteon 02-15-20 Consultation Note [id number]#1.0 0CD:127 [facility] Consultation Noteon 02-05-20 Consultation Note [id number]#1.0 0CD:127 [facility] Comment on above: Other Comment: INCOM PLETE FAX.NDW Formson 02-02-2023 Forms [id number]#1.0 0CD:127 Normal [facility] Consultation Noteon 01-29-20 Consultation Note [id number]#1.00 CD:127 Normal [facility] 36on 01-18-2023 36 Please call this patient and get her scheduled for a follow up in [place]! Normal [facility] Cardiovascular Reporton 01-06 Cardiovascular Report [id number]#1.0 0CD:127 [facility] Orders Onlyon 12-22-2022 Orders Only [id number] Bacilio Vasquez y N 1980 F Date Provider Department [place] 12/22/2022 Colby5-ANJEL MONGE [facility] No family history on file [facility] Telemedicineon 12-21-2022 Telemedicine [id number] Bacilio Vasquez y N 1980 F Date Provider Department [place] 12/21/2022 241-VISHAL ROGERS [facility] CARD [place] Count No family history on file Level of Service:77419 [place] PHYS/QHP TELEPHONE EVALUATION 11-20 MIN [facility] Office Visiton 12-15-2022 Follow-up visit [id number] Bacilio Vasquez y N 1980 Date Provider Department [place] 12/15/2022 ADIN PAIGE CARD [facility] No family history on file Level of Service:35575 [place] OFFICE/OUTPATIENT ESTABLISHED LOW MDM 20-29 MIN [facility] MRI BRAIN WO/W IVCONon 10-14 MRI [...] cord. No mass or pathologic intradural enhancement. [employer]: NARCISO Transcribe Date/Time: Oct 14 2022 8:43P Dictated by : UNIQUE ANDERSON MD This examination was interpreted and the report reviewed and electronically signed by: UNIQUE ANDERSON MD on Oct 14 2022 8:51PM EST [id number] Normal [facility] MRI CERVICAL SPINE WO/W IVCO Non 10-14-2022 [...] cord. No mass or pathologic intradural enhancement. [employer] Transcribe Date/Time: Oct 14 2022 8:43P Dictated by : UNIQUE ANDERSON MD This examination was interpreted and the report reviewed and electronically signed by: UNIQUE ANDERSON MD on Oct 14 2022 8:51PM EST [id number] Normal [facility] CBC AUTO DIFFon 09-02-2022 BASO # 0.1 103/ul Normal 0.0-0.1 [facility] Comment on above: Performed By: #### C MP, TSH, HSTROPN #### [facility] Laboratory [address] [place] [address] Dr. Christos Fallon Basophils/100 WBC (Bld) 0.5 % Normal 0.2-2.0 [facility] Comment on above: Performed By: #### C MP, TSH, HSTROPN #### [facility] Laboratory [address] [address] [address] Christos Fallon EO # 0.2 103/ul Normal 0.0-0.7 [facility] Comment on above: Performed By: #### C MP, TSH, HSTROPN #### [facility] Laboratory [address] [place] [address] Dr. Christos Fallon Eosinophils/100 WBC (Bld) 2.3 % Normal 0.9-7.0 [facility] Comment on above: Performed By: #### C MP, TSH, HSTROPN #### [facility] Laboratory [address] [place] [address] Dr. Christos Fallon Erythrocyte distribution width (RBC) [Ratio] 13.0 % Normal 11.0-15.0 [facility] Comment on above: Performed By: #### C MP, TSH, HSTROPN #### [facility] Laboratory [address] [place] [address] Dr. Christos Fallon Hematocrit (Bld) [Volume fraction] 43.0 % Normal 36.0-48.0 [facility] Comment on above: Performed By: #### C MP, TSH, HSTROPN #### [facility] Laboratory [address] [place] [address] Dr. Christos Fallon Hemoglobin (Bld) [Mass/Vol] 13.9 g/dL Normal 12.0-16.0 [facility] Comment on above: Performed By: #### C MP, TSH, HSTROPN #### [facility] Laboratory [address] [place] [address] Dr. Christos Fallon IG # 0.03 10e3/ul Normal 0.00-0.03 [facility] Comment on above: Performed By: #### C MP, TSH, HSTROPN #### [facility] Laboratory [address] [place] [address] Dr. Christos Fallon IG % 0.3 % Normal 0.0-0.5 [facility] Comment on above: Performed By: #### C MP, TSH, HSTROPN #### [facility] Laboratory [address] [place] [address] Dr. Christos Fallon LYMPH # 2.8 103/ul Normal 1.2-3.8 [facility] Comment on above: Performed By: #### C MP, TSH, HSTROPN #### [facility] Laboratory [address] [place] [address] Dr. Christos Fallon Lymphocytes/100 WBC (Bld) 29.6 % Normal 20.5-60.0 [facility] Comment on above: Performed By: #### C MP, TSH, HSTROPN #### [facility] Laboratory [address] [address] [address] Christos Fallon MANUAL DIFF REQ NO Normal The [facility] Comment on above: Performed By: #### C MP, TSH, HSTROPN #### [facility] Laboratory [address] [address] [address] Christos Fallon MCH (RBC) [Entitic mass] 34.8 pg Critically high 26.7-34.0 [facility] Comment on above: Performed By: #### C MP, TSH, HSTROPN #### [facility] Laboratory [address] [place] [address] Dr. Christos Fallon MCHC (RBC) [Mass/Vol] 32.3 g/dL Normal 29.9-35.2 [facility] Comment on above: Performed By: #### C MP, TSH, HSTROPN #### [facility] Laboratory [address] [place] [address] Dr. Christos Fallon MCV (RBC) [Entitic vol] 107.5 fL Critically high 81.0-99.0 [facility] Comment on above: Performed By: #### C MP, TSH, HSTROPN #### [facility] Laboratory [address] [place] [address] Dr. Christos Fallon MONO # 0.7 103/ul Normal 0.3-0.8 [facility] Comment on above: Performed By: #### C MP, TSH, HSTROPN #### [facility] Laboratory [address] [place] [address] Dr. Christos Fallon Monocytes/100 WBC (Bld) 7.7 % Normal 1.7-12.0 [facility] Comment on above: Performed By: #### C MP, TSH, HSTROPN #### [facility] Laboratory [address] [place] [address] Dr. Christos Fallon NEUT # 5.7 103/ul Normal 1.4-6.5 [facility] Comment on above: Performed By: #### C MP, TSH, HSTROPN #### [facility] Laboratory [address] [place] [address] Dr. Christos Fallon Neutrophils/100 WBC (Bld) 59.6 % Normal 43.0-75.0 [facility] Comment on above: Performed By: #### C MP, TSH, HSTROPN #### [facility] Laboratory [address] [place] [address] Dr. Christos Fallon Platelet mean volume (Bld) [Entitic vol] 9.9 fL Normal 9.5-13.5 [facility] Comment on above: Performed By: #### C MP, TSH, HSTROPN #### [facility] Laboratory [address] [address] [address] Christos Fallon PLT 309 103/ul Normal 150-450 [facility] Comment on above: Performed By: #### C MP, TSH, HSTROPN #### [facility] Laboratory [address] [place] [address] Dr. Christos Fallon RBC 4.00 106/ul Critically low 4.20-5.[address] [facility] Comment on above: Performed By: #### C MP, TSH, HSTROPN #### [facility] Laboratory [address] [place] [address] Dr. Christos Fallon WBC 9.6 103/ul Normal 4.0-11.0 [facility] Comment on above: Performed By: #### C MP, TSH, HSTROPN #### [facility] Laboratory [address] [place] [address] Dr. Christos Fallon D-DIMERon 09-02-2022 D-DIMER 0.28 mg/L FEU Normal <=0.59 [facility] Comment on above: Performed By: #### C MP, TSH, HSTROPN #### [facility] Laboratory [address] [place] [address] Dr. Christos Fallon D-DIMER COMMENTS SEE BELOW Normal The [facility] Comment on above: Result Comment: Incr [...] By: #### C MP, TSH, HSTROPN #### [facility] Laboratory [address] [place] [address] Dr. Christos Fallon PROF 14(COMP METB)on 023 Albumin [Mass/Vol] 3.8 g/dL Normal 3.4-5.0 [facility] Comment on above: Performed By: #### C MP, TSH, HSTROPN #### [facility] Laboratory [address] [place] [address] Dr. Christos Fallon Albumin/Globulin [Mass ratio] 1.2 {ratio} Normal [facility] Comment on above: Performed By: #### C MP, TSH, HSTROPN #### [facility] Laboratory [address] [place] [address] Dr. Christos Fallon ALP [Catalytic activity/Vol] 85 U/L Normal 46-116 [facility] Comment on above: Performed By: #### C MP, TSH, HSTROPN #### [facility] Laboratory [address] [place] [address] Dr. Christos Fallon ALT [Catalytic activity/Vol] 39 U/L Normal 14-59 [facility] Comment on above: Performed By: #### C MP, TSH, HSTROPN #### [facility] Laboratory [address] [place] [address] Dr. Christos Fallon Anion gap [Moles/Vol] 16.3 mmol/L Normal [facility] Comment on above: Performed By: #### C MP, TSH, HSTROPN #### [facility] Laboratory [address] [place] [address] Dr. Christos Fallon AST [Catalytic activity/Vol] 19 U/L Normal 15-37 [facility] Comment on above: Performed By: #### C MP, TSH, HSTROPN #### [facility] Laboratory [address] [place] [address] Dr. Christos Flalon Bilirubin [Mass/Vol] 0.4 mg/dL Normal 0.2-1.0 [facility] Comment on above: Performed By: #### C MP, TSH, HSTROPN #### [facility] Laboratory [address] [address] [address] Christos Fallon Calcium [Mass/Vol] 9.2 mg/dL Normal 8.5-10.1 [facility] Comment on above: Performed By: #### C MP, TSH, HSTROPN #### [facility] Laboratory [address] [place] [address] Dr. Christos Fallon Chloride [Moles/Vol] 101 mmol/L Normal 98-107 [facility] Comment on above: Performed By: #### C MP, TSH, HSTROPN #### [facility] Laboratory [address] [place] [address] Dr. Christos Fallon CO2 [Moles/Vol] 24.9 mmol/L Normal 21.0-32.[address] [facility] Comment on above: Performed By: #### C MP, TSH, HSTROPN #### [facility] Laboratory [address] [place] [address] Dr. Christos Fallon Creatinine [Mass/Vol] 0.83 mg/dL Normal 0.55-1.02 [facility] Comment on above: Performed By: #### C MP, TSH, HSTROPN #### [facility] Laboratory [address] [place] [address] Dr. Christos Fallon EGFR-AF IRISH >60 Normal >=[address] [facility] Comment on above: Performed By: #### C MP, TSH, HSTROPN #### [facility] Laboratory [address] [place] [address] Dr. Christos Fallon EGFR-NON AF IRISH >60 Normal >=60 [facility] Comment on above: Performed By: #### C MP, TSH, HSTROPN #### [facility] Laboratory [address] [place] [address] Dr. Christos Fallon Globulin (S) [Mass/Vol] 3.2 g/dL Normal [facility] Comment on above: Performed By: #### C MP, TSH, HSTROPN #### [facility] Laboratory [address] [place] [address] Dr. Christos Fallon Glucose [Mass/Vol] 142 mg/dL Critically high 74-106 [facility] Comment on above: Performed By: #### C MP, TSH, HSTROPN #### [facility] Laboratory [address] [address] [address] Christos Fallon Potassium [Moles/Vol] 3.2 mmol/L Critically low 3.5-5.1 [facility] Comment on above: Performed By: #### C MP, TSH, HSTROPN #### [facility] Laboratory [address] [address] [address] Christos Fallon Protein [Mass/Vol] 7.0 g/dL Normal 6.4-8.[address] [facility] Comment on above: Performed By: #### C MP, TSH, HSTROPN #### [facility] Laboratory [address] [address] [address] Christos Fallon Sodium [Moles/Vol] 139 mmol/L Normal 136-145 [facility] Comment on above: Performed By: #### C MP, TSH, HSTROPN #### [facility] [address] [address] [address] Christos Fallon Urea nitrogen [Mass/Vol] 10.0 mg/dL Normal 7.0-18.0 [facility] Comment on above: Performed By: #### C MP, TSH, HSTROPN #### [facility] [address] [address] [address] Christos Fallon Urea nitrogen/Creatinine [Mass ratio] 12.0 mg/mg Normal [facility] Comment on above: Performed By: #### C MP, TSH, HSTROPN #### [facility] [address] [address] [address] Christos Fallon PROTIMEon 09-02-2022 INR Coag (PPP) [Relative time] {INR} Normal [facility] Comment on above: Performed By: #### C MP, TSH, HSTROPN #### [facility] [address] [address] [address] Christos Fallon INR GUIDELINES SEE BELOW Normal [facility] Comment on above: Result Comment: GUALBERTO RED INR: 2.0 - 3.0 CONDITIONS NOT LISTED BELOW 2.5 - 3.5 FOR PROSTHETIC HEART VALVE REPLACEMENT 2.5 - 3.5 RECURRENT THROMBOSIS Performed By: #### C MP, TSH, HSTROPN #### [facility] Laboratory [address] [place] [address] Dr. Christos Fallon PT Coag (PPP) [Time] 9.7 s Normal 9.0-11.6 [facility] Comment on above: Performed By: #### C MP, TSH, HSTROPN #### [facility] Laboratory [address] [place] [address] Dr. Christos Fallon PTTon 09-02-2022 aPTT Coag (Bld) [Time] 25.9 s Normal 22.3-36.2 [facility] Comment on above: Performed By: #### C MP, TSH, HSTROPN #### [facility] Laboratory [address] [place] [address] Dr. Christos Fallon TROPONIN, HIGH SENSITIVITYon 09-02-2022 HSTROP <4.0 Normal 4.0-51.3 [facility] Comment on above: Result Comment: CUT- OFF POINTS HAVE BEEN ESTABLISHED BASED ON THE FOURTH UNIVERSAL DEFINITIONS OF MYOCARDIAL INFARCTION. THE UPPER REFERENCE LIMIT (URL) OF TROPONIN, DEFINED THE 99TH PERCENTILE OF cTnI DISTRIBUTION IN A REFERENCE POPULATION, HAS BEEN CONFIRMED THE DECISION THRESHOLD FOR NE DIAGNOSIS. Performed By: #### C MP, TSH, HSTROPN #### [facility] Laboratory [address] [place] [address] Dr. Christos Fallon TSHon 09-02-2022 TSH 0.813 uIU/mL Normal 0.358-3.740 [facility] Comment on above: Performed By: #### C MP, TSH, HSTROPN #### [facility] Laboratory [address] [place] [address] Dr. Christos Fallon XR CHEST 1 Von [...] by: LEEANNE MON Date: 2022-09-02 15:09 Normal [facility] CNOVon 08-24-2022 CNOV Office Visit (CARDLO ) CHRISTINAKAILA SHELLEY Emily ([id number]) 1980 F Date Time Provider Department 08/24/22 2:00 PM JANELL SY During your visit today, we recorded the following information about you: Pulse Blood pressure Weight Height 88/minute 112/73 112.9 kg 1.626 m Janell Sy MD 08/24/2022 2:17 PM Signed [facility] [place] SECTION OF REGIONAL CARDIOLOGY OUTPATIENT VISIT DATE [...] Cardiac work-up includes: Echocardiogram on 05/19/2020 at [facility] showed normal ejection fraction. No valvular heart [...] ECG COMPLETE 4. Obesity, morbid, BMI 40.0-49.9 ([facility]) E66.01 ECG COMPLETE 5. SVT (supraventricular tachycardia) ([facility]) I47.1 6. Chronic fatigue R53.82 [...] apnea) Palpitatio (more content not included)... Normal [facility] ECG COMPLETEon 08-24-2022 ECG COMPLETE Ventricular Rate : 8 4 BPM Atrial Rate : 84 BPM P-R Interval : 166 ms QRS Duration : 92 ms Q-T Interval : 358 ms QTC Calculation(Bazett) : 423 ms Calculated P Ralph : 60 degrees Calculated R Ralph : 45 degrees Calculated T Ralph : 45 degrees NORMAL SINUS RHYTHM INCREASED R/S RATIO IN V1, CONSIDER EARLY TRANSITION OR POSTERIOR INFARCT ABNORMAL ECG Confirmed by MEERA BOYD M.D. ([id number]) on 08/28/2022 3:03:10 PM NAME : KAILA VASQUEZ PID : [id number] : 1980 Gender : Female Race : ORD : [id number] Procedure Date : Aug 24 2022 13:56:02 [...] JANELL SY Acquired by : Jose browning [facility] CNTHERAPYon 08-12-2022 CNTHERAPY OT/PT/Speech Visit (PTAMCF) KAILA VASQUEZ ([id number]) 1980 F Date Time Provider Department 08/12/22 2:45 PM SEJALCARMEN VAZQUEZ [facility] Date Time Provider Department Center 08/12/2022 2:45 PM [id number] CARMEN [facility] Reason for Visit: Physical Therapy [503] Primary [...] % (flush) 10 mL (BD POSIFLUSH) Normal [facility] CNTHERAPYon 08-05-2022 CNTHERAPY OT/PT/Speech Visit (PTAMCF) KAILA VASQUEZ ([id number]) 1980 F Date Time Provider Department 08/05/22 9:15 AM CARMEN JOHNSON [facility] Date Time Provider Department Center 08/05/2022 9:15 AM [id number], KARA [facility] Reason for Visit: PT Eval [747] [...] % (flush) 10 mL (BD POSIFLUSH) Normal [facility] Covid-19 PCR (CVDTB)on 07-09 SARS-CoV-2 (COVID-19) RNA LEROY+probe Ql (Unsp spec) Not detected Normal NOT DETECTED [facility] Comment on above: Result Comment: When diagnostic [...] for this test is supported by the [place] of Health and Human Service's declaration that [...] used). Performed By: #### C VDAGA #### [facility] Laboratory [address] [place] [address] Dr. Christos Fallon 25(OH)D[address] [facility] 2021 25-hydroxyvitamin D3 [Mass/Vol] 15.8 ng/mL Low 31.0-80.0 [facility] Comment on above: Order Comment: Speci men Type: BLOOD SPECIMENOrdering Facility: [facility] Address: [address] [place] [address] Result Comment: Clas sification of 25 [place] Vitamin D status: Deficiency/Insufficiency: < or = 30 ng/ml. Sufficiency/Optimal Levels: 31-80 ng/mL Toxicity: > 100 ng/mL. Test performed by chemiluminescent immunoassay. Performed By: #### 1 989-3 ####[facility] LABIA [id number] [place] [address] [place] ESEQUIEL BY IFA WITH REFLEXon ESEQUIEL PATTERN Nuclear fine speckled Normal [facility] Comment on above: Order Comment: Davidi betty Type: BLOOD SPECIMENOrdering Facility: [facility] Address: [address] [place] [address] Performed By: #### 2 9374-6, 85152-6, 18814-3, 01915-8, 84707-6, ANAIFR, 04724-6, 91844-0, 97304-3, 36524-6 ####[facility] LABCLIA [id number] [address] [place] ESEQUIEL TITER 1:160 Normal [facility] Comment on above: Order Comment: Speci men Type: BLOOD SPECIMENOrdering Facility: [facility] Address: [address] [id number] Performed By: #### 2 9374-6, 26525-3, 56091-0, 84612-2, 49218-4, ANAIFR, 74008-1, 28792-0, 85379-7, 06270-3 ####[facility] LABCLIA [id number] [place] [address] [place] Nuclear Ab IF (S) [Titer] Positive Abnormal Negative [facility] Comment on above: Order Comment: Speci men Type: BLOOD SPECIMENOrdering Facility: [facility] Address: [address] [place] [address] Result Comment: Anti -nuclear antibody test is used as an aid in diagnosis of systemic autoimmune diseases. Where positive and clinically warranted, follow-up using disease-specific testing is recommended. Low positive titers are not uncommon with advanced age, certain chronic infections, and malignancies among others. Test methodology: Indirect fluorescence immunoassay (IFA) using HEp-2 cells. Performed By: #### 2 9374-6, 72056-2, 33056-3, 09525-1, 96621-1, ANAIFR, 75713-5, 91318-2, 80854-8, 35117-5 ####[facility] LABCLIA [id number] [place] [address] [place] Basic metabolic 2000 panelon 07-07-2022 Anion gap [Moles/Vol] 13 mmol/L Normal 9-18 [facility] Comment on above: Order Comment: Speci men Type: BLOOD SPECIMENOrdering Facility: [facility] Address: [address] [phone] Performed By: #### 2 4321-2 ####[facility] LABCLIA [id number] [place] [address] [place] Calcium [Mass/Vol] 9.3 mg/dL Normal 8.5-10.2 [facility] Comment on above: Order Comment: Speci men Type: BLOOD SPECIMENOrdering Facility: [facility] Address: [address] [address] Performed By: #### 2 4321-2 ####[facility] LABCLIA [id number] [place] [address] [place] Chloride [Moles/Vol] 102 mmol/L Normal 97-105 [facility] Comment on above: Order Comment: Speci men Type: BLOOD SPECIMENOrdering Facility: [facility] Address: [address] [place] [address] Performed By: #### 2 4321-2 ####[facility] LABCLIA [id number] [place] [address] [place] CO2 [Moles/Vol] 23 mmol/L Normal 22-30 [facility] Comment on above: Order Comment: Speci men Type: BLOOD SPECIMENOrdering Facility: [facility] Address: [address] [place] [address] Performed By: #### 2 4321-2 ####[facility] LABCLIA [id number] [place] [address] [place] Creatinine [Mass/Vol] 0.72 mg/dL Normal 0.58-0.96 [facility] Comment on above: Order Comment: Speci men Type: BLOOD SPECIMENOrdering Facility: [facility] Address: [address] [place] [address] Performed By: #### 2 4321-2 ####[facility] LABCLIA [id number] [place] [address] [place] ESTIMATED GLOMERULAR FILTRATION RATE 109 mL/min/1.73m??? Normal >=60 [facility] Comment on above: Order Comment: Speci men Type: BLOOD SPECIMENOrdering Facility: [facility] Address: [address] [place] [address] Result Comment: Dina mated Glomerular Filtration Rate [...] actual GFR. Performed By: #### 2 4321-2 ####[facility] LABCLIA [id number] [place] [address] [place] Glucose [Mass/Vol] 98 mg/dL Normal 74-99 [facility] Comment on above: Order Comment: Bryan hernández Type: BLOOD SPECIMENOrdering Facility: [facility] Address: [address] [place] [address] Result Comment: The [place] [employer] (ADA) provides guidance for cutoff [...] Standards of Medical Care in Diabetes 2016, [place] [employer]. Diabetes Care. 2016.39(Suppl 1). Performed By: #### 2 4321-2 ####[facility] LABCLIA [id number] [place] [address] [place] Potassium [Moles/Vol] 4.1 mmol/L Normal 3.7-5.1 [facility] Comment on above: Order Comment: Bryan hernández Type: BLOOD SPECIMENOrdering Facility: [facility] Address: [address] [place], [place] [address] Performed By: #### 2 4321-2 ####[facility] LABCLIA [id number] [place] [address] [place] Sodium [Moles/Vol] 138 mmol/L Normal 136-144 [facility] Comment on above: Order Comment: Speci men Type: BLOOD SPECIMENOrdering Facility: [facility] Address: [address] [address] Performed By: #### 2 4321-2 ####[facility] LABCLIA [id number] [place] [address] [place] Urea nitrogen [Mass/Vol] 8 mg/dL Normal 7-21 [facility] Comment on above: Order Comment: Speci men Type: BLOOD SPECIMENOrdering Facility: [facility] Address: [address] [address] Performed By: #### 2 4321-2 ####[facility] LABCLIA [id number] [place] [address] [place] Anion gap [Moles/Vol] 13 mmol/L 9 - 18 mmol/L [facility] Calcium [Mass/Vol] 9.3 mg/dL 8.5 - 10. 2 mg/dL [facility] Chloride [Moles/Vol] 102 mmol/L 97 - 10 5 mmol/L [facility] CO2 [Moles/Vol] 23 mmol/L 22 - 30 mmol/L [facility] Creatinine [Mass/Vol] 0.72 mg/dL 0.58 - 0.96 mg/dL [facility] Estimated Glomerular Filtration Rate 109 mL/min/1.73m >=60 mL/min/1.73m [facility] Glucose [Mass/Vol] 98 mg/dL 74 - 99 mg/dL [facility] Potassium [Moles/Vol] 4.1 mmol/L 3.7 - 5.1 mmol/L [facility] Sodium [Moles/Vol] 138 mmol/L 136 - 144 mmol/L [facility] Urea nitrogen [Mass/Vol] 8 mg/dL 7 - 21 mg/dL [facility] CBC W Auto Differential pane l (Bld)on 07-07-2022 Basophils (Bld) [#/Vol] 0.04 10*3/uL Normal <0.11 [facility] Comment on above: Order Comment: Speci men Type: BLOOD SPECIMENOrdering Facility: [facility] Address: [address] [address] Performed By: #### 5 7021-8 ####[facility] LABCLIA [id number] [place] [address] [place] Basophils/100 WBC (Bld) 0.5 % Normal [facility] Comment on above: Order Comment: Speci men Type: BLOOD SPECIMENOrdering Facility: [facility] Address: [address] [place] [address] Performed By: #### 5 7021-8 ####[facility] LABCLIA [id number] [place] [address] [place] Differential cell count method Nom (Bld) Auto Normal [facility] Comment on above: Order Comment: Speci men Type: BLOOD SPECIMENOrdering Facility: [facility] Address: [address] [place] [address] Performed By: #### 5 7021-8 ####[facility] LABCLIA [id number] [place] [address] [place] Eosinophils (Bld) [#/Vol] 0.29 10*3/uL Normal <0.46 [facility] Comment on above: Order Comment: Speci men Type: BLOOD SPECIMENOrdering Facility: [facility] Address: [address] [place] [address] Performed By: #### 5 7021-8 ####[facility] LABCLIA [id number] [place] [address] [place] Eosinophils/100 WBC (Bld) 3.9 % Normal [facility] Comment on above: Order Comment: Speci men Type: BLOOD SPECIMENOrdering Facility: [facility] Address: [address] [place] [address] Performed By: #### 5 7021-8 ####[facility] LABCLIA [id number] [place] [address] [place] Erythrocyte distribution width (RBC) [Ratio] 12.1 % Normal 11.5-15.0 [facility] Comment on above: Order Comment: Speci men Type: BLOOD SPECIMENOrdering Facility: [facility] Address: [address] [place] [address] Performed By: #### 5 7021-8 ####[facility] LABIA [id number] [place] [address] [place] Hematocrit (Bld) [Volume fraction] 43.5 % Normal 36.0-46.0 [facility] Comment on above: Order Comment: Speci men Type: BLOOD SPECIMENOrdering Facility: [facility] Address: [address] [place] [address] Performed By: #### 5 7021-8 ####[facility] [id number] [place] [address] [place] Hemoglobin (Bld) [Mass/Vol] 14.9 g/dL Normal 11.5-15.5 [facility] Comment on above: Order Comment: Speci men Type: BLOOD SPECIMENOrdering Facility: [facility] Address: [address] [place] [address] Performed By: #### 5 7021-8 ####[facility] LABIA [id number] [place] [address] [place] Immature granulocytes (Bld) [#/Vol] 0.03 10*3/uL Normal <0.10 [facility] Comment on above: Order Comment: Speci men Type: BLOOD SPECIMENOrdering Facility: [facility] Address: [address] [place] [address] Performed By: #### 5 7021-8 ####[facility] LABIA [id number] [place] [address] [place] Immature granulocytes/100 WBC (Bld) 0.4 % Normal [facility] Comment on above: Order Comment: Speci men Type: BLOOD SPECIMENOrdering Facility: [facility] Address: [address] [place] [address] Performed By: #### 5 7021-8 ####[facility] LABCLIA [id number] [place] [address] [place] Lymphocytes (Bld) [#/Vol] 1.71 10*3/uL Normal 1.00-4.00 [facility] Comment on above: Order Comment: Speci men Type: BLOOD SPECIMENOrdering Facility: [facility] Address: [address] [place] [address] Performed By: #### 5 7021-8 ####[facility] LABCLIA [id number] [place] [address] [place] Lymphocytes/100 WBC (Bld) 23.2 % Normal [facility] Comment on above: Order Comment: Speci men Type: BLOOD SPECIMENOrdering Facility: [facility] Address: [address] [place] [address] Performed By: #### 5 7021-8 ####[facility] LABCLIA [id number] [place] [address] [place] MCH (RBC) [Entitic mass] 34.1 pg High 26.0-34.0 [facility] Comment on above: Order Comment: Speci men Type: BLOOD SPECIMENOrdering Facility: [facility] Address: [address] [place] [address] Performed By: #### 5 7021-8 ####[facility] LABCLIA [id number] [place] [address] [place] MCHC (RBC) [Mass/Vol] 34.3 g/dL Normal 30.5-36.0 [facility] Comment on above: Order Comment: Speci men Type: BLOOD SPECIMENOrdering Facility: [facility] Address: [address] [address] Performed By: #### 5 7021-8 ####[facility] LABIA [id number] [place] [address] [place] MCV (RBC) [Entitic vol] 99.5 fL Normal 80.0-100.0 [facility] Comment on above: Order Comment: Speci men Type: BLOOD SPECIMENOrdering Facility: [facility] Address: [address] [address] Performed By: #### 5 7021-8 ####[facility] LABIA [id number] [place] [address] [place] Monocytes (Bld) [#/Vol] 0.57 10*3/uL Normal <0.87 [facility] Comment on above: Order Comment: Speci men Type: BLOOD SPECIMENOrdering Facility: [facility] Address: [address] [address] Performed By: #### 5 7021-8 ####[facility] LABIA [id number] [place] [address] [place] Monocytes/100 WBC (Bld) 7.7 % Normal [facility] Comment on above: Order Comment: Speci men Type: BLOOD SPECIMENOrdering Facility: [facility] Address: [address] Performed By: #### 5 7021-8 ####[facility] LABIA [id number] [place] [address] [place] Neutrophils (Bld) [#/Vol] 4.73 10*3/uL Normal 1.45-7.50 [facility] Comment on above: Order Comment: Speci men Type: BLOOD SPECIMENOrdering Facility: [facility] Address: [address] [place], [place] [address] Performed By: #### 5 7021-8 ####[facility] LABCLIA [id number] [place] [address] [place] Neutrophils/100 WBC (Bld) 64.3 % Normal [facility] Comment on above: Order Comment: Speci men Type: BLOOD SPECIMENOrdering Facility: [facility] Address: [address] [place] [address] Performed By: #### 5 7021-8 ####[facility] LABCLIA [id number] [place] [address] [place] Nucleated RBC (Bld) [#/Vol] 10*3/uL Normal <0.01 [facility] Comment on above: Order Comment: Speci men Type: BLOOD SPECIMENOrdering Facility: [facility] Address: [address] [place] [address] Performed By: #### 5 7021-8 ####[facility] LABIA [id number] [place] [address] [place] Nucleated RBC/100 WBC (Bld) [Ratio] 0.0 /100 WBC Normal [facility] Comment on above: Order Comment: Speci men Type: BLOOD SPECIMENOrdering Facility: [facility] Address: [address] [place] [address] Performed By: #### 5 7021-8 ####[facility] LABIA [id number] [place] [address] [place] Platelet mean volume (Bld) [Entitic vol] 9.6 fL Normal 9.0-12.7 [facility] Comment on above: Order Comment: Speci men Type: BLOOD SPECIMENOrdering Facility: [facility] Address: [address] [place] [address] Performed By: #### 5 7021-8 ####[facility] LABCLIA [id number] [place] [address] [place] Platelets (Bld) [#/Vol] 277 10*3/uL Normal 150-400 [facility] Comment on above: Order Comment: Speci men Type: BLOOD SPECIMENOrdering Facility: [facility] Address: [address] [place] [address] Performed By: #### 5 7021-8 ####[facility] LABCLIA [id number] [place] [address] [place] RBC (Bld) [#/Vol] 4.37 10*6/uL Normal 3.90-5.20 [facility] Comment on above: Order Comment: Speci men Type: BLOOD SPECIMENOrdering Facility: [facility] Address: [address] [place] [address] Performed By: #### 5 7021-8 ####[facility] LABCLIA [id number] [place] [address] [place] WBC (Bld) [#/Vol] 7.37 10*3/uL Normal 3.70-11.00 [facility] Comment on above: Order Comment: Speci men Type: BLOOD SPECIMENOrdering Facility: [facility] Address: [address] [place] [address] Performed By: #### 5 7021-8 ####[facility] LABCLIA [id number] [place] [address] [place] Basophils (Bld) [#/Vol] 0.04 10*3/uL <0.11 k/uL [facility] Basophils/100 WBC (Bld) 0.5 % [facility] Differential cell count method Nom (Bld) Auto [facility] Eosinophils (Bld) [#/Vol] 0.29 10*3/uL <0.46 k/uL [facility] Eosinophils/100 WBC (Bld) 3.9 % [facility] Erythrocyte distribution width (RBC) [Ratio] 12.1 % 11.5 - 15.0 % [facility] Hematocrit (Bld) [Volume fraction] 43.5 % 36.0 - 46.0 % [facility] Hemoglobin (Bld) [Mass/Vol] 14.9 g/dL 11.5 - 15.5 g/dL [facility] Immature granulocytes (Bld) [#/Vol] 0.03 10*3/uL <0.10 k/uL [facility] Immature granulocytes/100 WBC (Bld) 0.4 % [facility] Lymphocytes (Bld) [#/Vol] 1.71 10*3/uL 1.00 - 4.00 k/uL [facility] Lymphocytes/100 WBC (Bld) 23.2 % [facility] MCH (RBC) [Entitic mass] 34.1 pg High 26.0 - 34.0 pg [facility] MCHC (RBC) [Mass/Vol] 34.3 g/dL 30.5 - 36.0 g/dL [facility] MCV (RBC) [Entitic vol] 99.5 fL 80.0 - 100.0 fL [facility] Monocytes (Bld) [#/Vol] 0.57 10*3/uL <0.87 k/uL [facility] Monocytes/100 WBC (Bld) 7.7 % [facility] Neutrophils (Bld) [#/Vol] 4.73 10*3/uL 1.45 - 7.50 k/uL [facility] Neutrophils/100 WBC (Bld) 64.3 % [facility] Nucleated RBC (Bld) [#/Vol] <0.01 k/uL [facility] Nucleated RBC/100 WBC (Bld) [Ratio] 0.0 /100 WBC [facility] Platelet mean volume (Bld) [Entitic vol] 9.6 fL 9.0 - 12.7 fL [facility] Platelets (Bld) [#/Vol] 277 10*3/uL 150 - 400 k/uL [facility] RBC (Bld) [#/Vol] 4.37 10*6/uL 3.90 - 5.2 0 m/uL [facility] WBC (Bld) [#/Vol] 7.37 10*3/uL 3.70 - 11. 00 k/uL [facility] CNOVon 07-07-2022 CNOV Office Visit ([facility] ) KAILA VASQUEZ ([id number]) 1980 F Date Time Provider Department 07/07/22 8:00 AM GLENROY SYED During your visit today, we recorded the following information about you: Pulse Blood pressure Weight Height 82/minute 134/88 112 kg 1.626 m Glenroy Syed APRN.CNP 07/07/2022 12:28 PM Signed [facility] General Neurology New Patient Evaluation CHIEF COMPLAINT: [...] over a month. 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 A couple times a month she gets [...] tobacco: Never (more content not included)... Normal [facility] CNPNon 07-07-2022 CNPN Telephone ([facility]) KAILA VASQUEZ ([id number]) 1980 F Date Time Provider Department 07/07/22 GLENROY SYED NEVÍCTORFV During your visit today, we recorded the following information about you: Cinthya Salgado 07/07/2022 8:52 AM Signed Received medical records from [facility]. Uploaded to chart and forwarded for review. Kajal Gillespie RN 07/07/2022 9:14 AM Signed Noted. Provider notified. Allergies As of Date: 07/07/2022 (Not on File) Date Reviewed: 07/07/2022 Reviewed by: Elaine Bolaños Ma - Fully Assessed Reason for Visit: Received Outside Medical Records [[id number]] Prescriptions as of 07/19/2022 - metoprolol tartrate, short acting, (LOPRESSOR) 50 mg tablet metoprolol tartrate 50 mg tablet Facility-Administered Medications as of 07/19/2022 - perflutren lipid microspheres 1.3 mL in NaCl (PF) 0.9% 10 mL injection (DEFINITY) - sodium chloride 0.9 % (flush) 10 mL (BD POSIFLUSH) Problem List As Of Date: 07/07/2022 (None) Encounter Status:Closed by CINTHYA SALGADO on 07/19/22 Normal [facility] Centromere Ab IF Ql (S)on Centromere Ab Qn (S) <0.2 Normal <1.0 [facility] Comment on above: Order Comment: Speci men Type: BLOOD SPECIMENOrdering Facility: [facility] Address: [address] [place] [address] Result Comment: Anti -centromere antibody is used as in aid in diagnosis of systemic sclerosis. Clinical correlation is required. Test Methodology: Multiplex flow immunoassay. Performed By: #### 2 9374-6, 93393-1, 64367-5, 22606-4, 76501-4, ANAIFR, 07985-8, 99285-7, 49950-5, 06729-6 ####[facility] LABCLIA [id number] [place] [address] [place] [facility] CENTROMERE AB QUAL Negative Normal Negative [facility] Comment on above: Order Comment: Speci men Type: BLOOD SPECIMENOrdering Facility: [facility] Address: [address] [place] [address] Performed By: #### 2 9374-6, 30686-6, 10666-5, 61621-8, 86357-9, ANAIFR, 79662-5, 04628-7, 20584-5, 07948-8 ####[facility] LABIA [id number] [place] [address] [place] Chromatin Ab Qnon 07-07-2022 CHROMATIN AB QUAL Negative Normal Negative [facility] Comment on above: Order Comment: Speci men Type: BLOOD SPECIMENOrdering Facility: [facility] Address: [address] [place] [address] Performed By: #### 2 9374-6, 24794-7, 74322-8, 73815-8, 29898-8, ANAIFR, 64559-7, 27073-7, 30154-8, 33101-2 ####[facility]IA [id number] [place] [address] [place] Chromatin Ab SerPl-aCncon Chromatin Ab Qn <0.2 Normal <1.0 [facility] Comment on above: Order Comment: Speci men Type: BLOOD SPECIMENOrdering Facility: [facility] Address: [address] [place], [place] [address] Result Comment: Test Methodology: Multiplex flow immunoassay. Performed By: #### 2 9374-6, 84859-8, 84966-6, 76900-4, 06856-7, ANAIFR, 29865-1, 09323-0, 45816-1, 71760-8 ####[facility] LABCLIA [id number] [place] [address] [place]RAN Jo1 Ab Ser-aCncon 2021 Radha-1 extractable nuclear Ab Qn (S) <0.2 Normal <1.0 [facility] Comment on above: Order Comment: Speci men Type: BLOOD SPECIMENOrdering Facility: [facility] Address: [address] [place] [address] Performed By: #### 2 9374-6, 21356-7, 00221-7, 43957-0, 05294-6, ANAIFR, 96839-2, 77384-8, 26077-5, 65763-1 ####[facility] LABIA [id number] [place] [address] [place] STEEL ROLLER Ab Ser-aCncon 2021 Ribonucleoprotein extractable nuclear Ab Qn (S) <0.2 Normal <1.0 [facility] Comment on above: Order Comment: Speci men Type: BLOOD SPECIMENOrdering Facility: [facility] Address: [address] [place] [address] Performed By: #### 2 9374-6, 40416-4, 06621-1, 81996-1, 09812-5, ANAIFR, 16440-5, 31853-5, 68707-3, 60477-8 ####[facility] LABCLIA [id number] [place] [address] [place] SM IgG Ser-aCncon 2021 Osborne extractable nuclear IgG Qn (S) <0.2 Normal <1.0 [facility] Comment on above: Order Comment: Speci men Type: BLOOD SPECIMENOrdering Facility: [facility] Address: [address] [place] [address] Performed By: #### 2 9374-6, 36802-8, 65190-0, 37299-5, 45750-7, ANAIFR, 77847-3, 40385-2, 64755-9, 10344-2 ####[facility] LABIA [id number] [address] OF [place] SS-A Ab Ser-aCncon 07-07 Sjogrens syndrome-A extractable nuclear Ab Qn (S) 0.3 AI Normal <1.0 [facility] Comment on above: Order Comment: Speci men Type: BLOOD SPECIMENOrdering Facility: [facility] Address: [address] [place] [address] Result Comment: Test Methodology: Multiplex flow immunoassay. Performed By: #### 2 9374-6, 65963-8, 87558-7, 21429-2, 35690-9, ANAIFR, 09340-1, 95552-7, 21866-0, 05242-5 ####[facility] LABIA [id number] [address] [place] SS-B Ab Ser-aCncon 07-07 Sjogrens syndrome-B extractable nuclear Ab Qn (S) <0.2 Normal <1.0 [facility] Comment on above: Order Comment: Speci men Type: BLOOD SPECIMENOrdering Facility: [facility] Address: [address] [place] [address] Result Comment: Anti -SSB (anti-La) antibody is used as an aid in diagnosis of a variety of systemic autoimmune diseases, especially for Sjogren's syndrome and systemic lupus erythematosus. Clinical correlation is required. Test Methodology: Multiplex flow immunoassay. Performed By: #### 2 9374-6, 00121-3, 80048-5, 71266-9, 71794-3, ANAIFR, 13798-1, 53053-2, 18726-6, 04246-5 ####[facility] [id number] [address] [address] [place] Radha-1 extractable nuclear Ab Qn (S)on 07-07-2022 RADHA 1 ANTIBODY QUAL Negative Normal Negative [facility] Comment on above: Order Comment: Speci men Type: BLOOD SPECIMENOrdering Facility: [facility] Address: [address] [place] [address] Result Comment: Anti -RADHA-1 antibody is used as an aid in diagnosis of polymyositis and dermatomyositis especially with pulmonary involvement. A negative result cannot rule out polymyositis or dermatomyositis. Clinical correlation is required. Test Methodology: Multiplex flow immunoassay. Performed By: #### 2 9374-6, 65792-4, 51134-7, 07671-9, 01710-2, ANAIFR, 01910-6, 64527-7, 71439-5, 46584-0 ####[facility] [id number] [address] [address] [place] Ribonucleoprotein extractabl e nuclear Ab Qn (S)on 07-07-2022 ANTI-STEEL ROLLER QUAL Negative Normal Negative [facility] Comment on above: Order Comment: Bryan hernández Type: BLOOD SPECIMENOrdering Facility: [facility] Address: [address] [place] [address] Performed By: #### 2 9374-6, 37763-1, 86512-6, 11975-1, 26342-5, ANAIFR, 62595-3, 52107-9, 59619-5, 03104-2 ####[facility] [id number] [address] [address] [place] RIBOSOMAL STEEL ROLLER QUAL Negative Normal Negative [facility] Comment on above: Order Comment: Speci betty Type: BLOOD SPECIMENOrdering Facility: [facility] Address: [address] [place], [place] [address] Result Comment: Anti -Ribosomal RNA (Ribosomal P) antibody is used as an aid in diagnosis of systemic autoimmune diseases especially systemic lupus erythematosus and mixed connective tissue disease. Cross-reactivity with Anti-osborne antibody is not uncommon. Clinical correlation is required. Test Methodology: Multiplex flow immunoassay. Performed By: #### 2 9374-6, 44083-6, 68120-7, 99692-2, 87356-3, ANAIFR, 32735-3, 08431-6, 04030-0, 14786-3 ####[facility] LABCLIA [id number] [address] OF [place] SCL-70 extractable nuclear I gG IA Qn (S)on 07-07-2022 SCLERODERMA AB QUAL Negative Normal Negative [facility] Comment on above: Order Comment: Speci men Type: BLOOD SPECIMENOrdering Facility: [facility] Address: [address] [place] [address] Performed By: #### 2 9374-6, 45671-9, 16998-5, 89749-5, 16210-6, ANAIFR, 10444-4, 27238-9, 91025-0, 77363-6 ####[facility] LABIA [id number] [address] [facility] SCLERODERMA IGG AB <0.2 Normal <1.0 [facility] Comment on above: Order Comment: Speci betty Type: BLOOD SPECIMENOrdering Facility: [facility] Address: [address] [place] [address] Result Comment: Scl- 70/Scleroderma antibody test is used as an aid in diagnosis of systemic sclerosis especially the diffuse cutaneous form. A negative result cannot rule out systemic sclerosis. The final interpretation should consider clinical picture and other test results such as anti-centromere antibody. Test Methodology: Multiplex flow immunoassay. Performed By: #### 2 9374-6, 14535-8, 78514-9, 96081-5, 60626-5, ANAIFR, 84618-0, 85252-6, 25147-8, 42792-8 ####[facility] LABCLIA [id number] [address] [place] Sjogrens syndrome-A extracta ble nuclear Ab Qn (S)on 07-07-2022 SSA ANTIBODY QUAL Negative Normal Negative [facility] Comment on above: Order Comment: Speci men Type: BLOOD SPECIMENOrdering Facility: [facility] Address: [address] [place] [address] Performed By: #### 2 9374-6, 20103-0, 33853-3, 81572-2, 14981-4, ANAIFR, 48123-8, 83274-2, 90703-1, 07010-9 ####[facility] LABIA [id number] [address] [place] Sjogrens syndrome-B extracta ble nuclear Ab Qn (S)on 07-07-2022 SSB ANTIBODY QUAL Negative Normal Negative [facility] Comment on above: Order Comment: Speci men Type: BLOOD SPECIMENOrdering Facility: [facility] Address: [address] [place] [address] Performed By: #### 2 9374-6, 21958-1, 92745-5, 32096-3, 26856-4, ANAIFR, 98313-8, 57699-3, 98007-6, 83434-9 ####[facility] [id number] [address] [place] Osborne extractable nuclear Ig G Qn (S)on 07-07-2022 SM ANTIBODY QUAL Negative Normal Negative [facility] Comment on above: Order Comment: Speci men Type: BLOOD SPECIMENOrdering Facility: [facility] Address: [address] [place] [address] Result Comment: Anti -Sm (Osborne) antibody is used as an aid in diagnosis of systemic lupus erythematosus and its presence is associated with renal disease. A negative result cannot rule out systemic lupus erythematosus. Clinical correlation is required. Test Methodology: Multiplex flow immunoassay. Performed By: #### 2 9374-6, 53404-8, 11015-8, 51854-1, 19694-5, ANAIFR, 39974-9, 45377-5, 21952-4, 50080-2 ####[facility] [id number] [place] [address] [place] TSH BLDon 07-07-2022 TSH Qn 0.824 m[IU]/L 0.270 - 4.200 mIU/L [facility] TSH SerPl-aCncon 07-07-2022 TSH Qn 0.824 m[IU]/L Normal 0.270-4.200 [facility] Comment on above: Order Comment: Speci men Type: BLOOD SPECIMENOrdering Facility: [facility] Address: [address] [place], [place] [id number] Result Comment: If t he patient is , TSH reference range varies by gestational period: First Trimester (weeks 9-12): 0.180-2.990 mIU/L Second Trimester: 0.110-3.980 mIU/L Third Trimester: 0.480-4.710 mIU/L Eliezer Bangura et al. A Practical Approach for the Verifications and Determination of Site- and Trimester-Specific Reference Intervals for Thyroid Function tests in . Thyroid, 2019:29:3:412-420. Rob Forrest, et al. 2017 Guidelines of the [place] [employer] for the Diagnosis and Management of Thyroid Disease during and the . Thyroid, 2017:27:3:315-389. Performed By: #### 3 016-3, 2132-9 ####[facility] [id number] [place] [id number] [place] VITAMIN B12 BLOODon 07-07-20 22 Cobalamin (Vitamin B12) [Mass/Vol] 618 pg/mL 232 - 1,245 pg/mL [facility] Vit B12 SerPl-mCncon 022 Cobalamin (Vitamin B12) [Mass/Vol] 618 pg/mL Normal 232-1245 [facility] Comment on above: Order Comment: Speci men Type: BLOOD SPECIMENOrdering Facility: [facility] Address: [address] [place] [address], [place] [address] Performed By: #### 3 016-3, 2132-9 ####[facility] LABCLIA [id number] [place] [address] [place] dsDNA Ab Ser IA-aCncon 07-07 DNA double strand Ab IA Qn (S) <12 Normal <30 [facility] Comment on above: Order Comment: Speci men Type: BLOOD SPECIMENOrdering Facility: [facility] Address: [address] [place] [address] Result Comment: Nega tive for ds DNA Antibodies. <30 IU/mL Negative 30-74 IU/mL Equivocal >74 IU/mL Positive Performed By: #### 2 9374-6, 00723-0, 33996-9, 85100-1, 87731-8, ANAIFR, 44111-5, 63317-5, 05216-8, 24791-4 ####[facility] LABCLIA [id number] [place] [address] [place] HLA B 27on 04-26-2022 HLA-B27 Negative Normal [facility] Comment on above: Result Comment: HLA- B*27 Negative B27 allele interpretation for all loci based on IMGT/HLA database version 3.44 This test was developed and its performance characteristics determined by [facility]. It has not been cleared or approved by the Food and Drug Administration. [facility] CLIA ID Number [id number] . This test was performed using PCR (Polymerase Chain Reaction)/SSOP (Sequence Specific Oligonucleotide Probes) technique. SBT (Sequence Based Typing) and/or SSP (Sequence Specific Primers) may be used as supplemental methods when necessary. Please contact [facility] Customer Service at if you have any questions. . Director of [facility] Laboratory Dr Abdiaziz Shook, PhD Performed By: #### C VDAGA #### [facility] Laboratory [address] [place] [address] [address] Christos Fallon 25-HYDROXY VIT D (D2+D3 [facility] ) LC/MS-MSon 04-23-2022 25-Hydroxy, Vitamin D 26 ng/mL Critically low [facility] Comment on above: Result Comment: Refe rence Range: All Ages: Target levels 30 - 100 Performed By: #### C MP, TSH, HSTROPN #### [facility] Laboratory [address] [place] [address] Dr. Christos Fallon 25-Hydroxy, Vitamin D-2 <1.0 Normal [facility] Comment on above: Result Comment: This test was developed and its performance characteristics determined by [facility]. It has not been cleared or approved by the Food and Drug Administration. Performed By: #### C MP, TSH, HSTROPN #### [facility] [address] [place] [address] Dr. Christos Fallon 25-Hydroxy, Vitamin D-3 26 ng/mL Normal [facility] Comment on above: Result Comment: This test was developed and its performance characteristics determined by [facility]. It has not been cleared or approved by the Food and Drug Administration. Performed By: #### C MP, TSH, HSTROPN #### [facility] [address] [place] [address] Dr. Christos Fallon REVERSE T3on 04-20-2022 Reverse T3, Serum 11.2 ng/dL Normal 9.2-24.1 [facility] Comment on above: Result Comment: This test was developed and its performance characteristics determined by [facility]. It has not been cleared or approved by the Food and Drug Administration. Performed By: #### C VDAGA #### [facility] [address] [place] [address] Dr. Christos Fallon THYROID ANTIBODIESon 022 Thyroglobulin Antibody <1.0 Normal 0.0-0.9 [facility] Comment on above: Result Comment: Thyr oglobulin Antibody measured by [employer] Methodology Performed By: #### C VDAGA #### [facility] [address] [place] [address] Dr. Christos Fallon Thyroid Peroxidase (TPO) Ab 11 IU/mL Normal 0-34 [facility] Comment on above: Performed By: #### C VDAGA #### [facility] [address] [place] [address] Dr. Christos Fallon ANTISTREPTOLYSIN O AB (ASO)o n 04-16-2022 Antistreptolysin O Ab 21.8 IU/mL Normal 0.0-200.0 [facility] Comment on above: Performed By: #### C MP, TSH, HSTROPN #### [facility] [address] [place] [address] Dr. Christos Fallon T3, TOTAL (TRIIODOTHYRONINE) on 04-16-2022 T3, TOTAL 115 ng/dL Normal 71-180 [facility] Comment on above: Performed By: #### C MP, TSH, HSTROPN #### [facility] [address] [place] [address] Dr. Christos Fallon FREE T3on 04-14-2022 FREE T3 2.46 pg/mlL Normal 2.18-3.98 [facility] Comment on above: Performed By: #### C MP, TSH, HSTROPN #### [facility] [address] [place] [address] Dr. Christos Fallon FREE T4on 04-14-2022 Free T4 [Mass/Vol] 0.88 ng/dL Normal 0.76-1.46 [facility] Comment on above: Performed By: #### C VDAGA #### [facility] [address] [place] [address] Dr. Christos Fallon TSHon 04-14-2022 TSH 1.027 uIU/mL Normal 0.358-3.740 [facility] Comment on above: Performed By: #### C MP, TSH, HSTROPN #### [facility] [address] [place] [address] Dr. Christos Fallon CBC AUTO DIFFon 03-22-2022 BASO # 0.1 103/ul Normal 0.0-0.1 [facility] Comment on above: Performed By: #### C MP, TSH, HSTROPN #### [facility] [address] [place] [address] Dr. Christos Fallon Basophils/100 WBC (Bld) 0.7 % Normal 0.2-2.0 [facility] Comment on above: Performed By: #### C MP, TSH, HSTROPN #### [facility] [address] [place] [address] Dr. Christos Fallon EO # 0.3 103/ul Normal 0.0-0.7 [facility] Comment on above: Performed By: #### C MP, TSH, HSTROPN #### [facility] [address] [place] [address] Dr. Christos Fallon Eosinophils/100 WBC (Bld) 3.4 % Normal 0.9-7.0 [facility] Comment on above: Performed By: #### C MP, TSH, HSTROPN #### [facility] [address] [place] [address] Dr. Christos Fallon Erythrocyte distribution width (RBC) [Ratio] 12.5 % Normal 11.0-15.0 [facility] Comment on above: Performed By: #### C MP, TSH, HSTROPN #### [facility] [address] [place] [address] Dr. Christos Fallon Hematocrit (Bld) [Volume fraction] 41.3 % Normal 36.0-48.0 [facility] Comment on above: Performed By: #### C MP, TSH, HSTROPN #### [facility] [address] [place] [address] Dr. Christos Fallon Hemoglobin (Bld) [Mass/Vol] 14.2 g/dL Normal 12.0-16.0 [facility] Comment on above: Performed By: #### C MP, TSH, HSTROPN #### [facility] [address] [place] [address] Dr. Christos Fallon IG # 0.03 10e3/ul Normal 0.00-0.03 [facility] Comment on above: Performed By: #### C MP, TSH, HSTROPN #### [facility] [address] [place] [address] Dr. Christos Fallon IG % 0.4 % Normal 0.0-0.5 [facility] Comment on above: Performed By: #### C MP, TSH, HSTROPN #### [facility] [address] [place] [address] Dr. Christos Fallon LYMPH # 2.3 103/ul Normal 1.2-3.8 [facility] Comment on above: Performed By: #### C MP, TSH, HSTROPN #### [facility] [address] [place] [address] Dr. Christos Fallon Lymphocytes/100 WBC (Bld) 31.3 % Normal 20.5-60.0 [facility] Comment on above: Performed By: #### C MP, TSH, HSTROPN #### [facility] [address] [place] [address] Dr. Christos Fallon MANUAL DIFF REQ NO Normal [facility] Comment on above: Performed By: #### C MP, TSH, HSTROPN #### [facility] [address] [place] [address] Dr. Christos Fallon MCH (RBC) [Entitic mass] 34.8 pg Critically high 26.7-34.0 [facility] Comment on above: Performed By: #### C MP, TSH, HSTROPN #### [facility] [address] [place] [address] Dr. Christos Fallon MCHC (RBC) [Mass/Vol] 34.4 g/dL Normal 29.9-35.2 [facility] Comment on above: Performed By: #### C MP, TSH, HSTROPN #### [facility] [address] [place] [address] Dr. Christos Fallon MCV (RBC) [Entitic vol] 101.2 fL Critically high 81.0-99.0 [facility] Comment on above: Performed By: #### C MP, TSH, HSTROPN #### [facility] [address] [place] [address] Dr. Christos Fallon MONO # 0.9 103/ul Critically high 0.3-0.8 [facility] Comment on above: Performed By: #### C MP, TSH, HSTROPN #### [facility] [address] [place] [address] Dr. Christos Fallon Monocytes/100 WBC (Bld) 12.0 % Normal 1.7-12.0 [facility] Comment on above: Performed By: #### C MP, TSH, HSTROPN #### [facility] [address] [place] [address] [address] Christos Fallon NEUT # 3.9 103/ul Normal 1.4-6.5 [facility] Comment on above: Performed By: #### C MP, TSH, HSTROPN #### [facility] [address] [place] [address] [address] Christos Fallon Neutrophils/100 WBC (Bld) 52.2 % Normal 43.0-75.0 [facility] Comment on above: Performed By: #### C MP, TSH, HSTROPN #### [facility] [address] [place] [address] Dr. Christos Fallon Platelet mean volume (Bld) [Entitic vol] 9.7 fL Normal 9.5-13.5 [facility] Comment on above: Performed By: #### C MP, TSH, HSTROPN #### [facility] [address] [place] [address] Dr. Christos Fallon PLT 296 103/ul Normal 150-450 [facility] Comment on above: Performed By: #### C MP, TSH, HSTROPN #### [facility] [address] [place] [address] Dr. Christos Fallon RBC 4.08 106/ul Critically low 4.20-5.[address] [facility] Comment on above: Performed By: #### C MP, TSH, HSTROPN #### [facility] [address] [place] [address] Dr. Christos Fallon WBC 7.4 103/ul Normal 4.0-11.0 [facility] Comment on above: Performed By: #### C MP, TSH, HSTROPN #### [facility] [address] [place] [address] HEAD WO CONon [...] PAL WETZEL Date: 2022-03-22 17:41 Normal [facility] ER URINE PROFILEon 2 Bilirubin Ql (U) Negative Normal NEGATIVE [facility] Comment on above: Performed By: #### C VDAGA #### [facility] [address] [place] [address] Dr. Christos Fallon Clarity (U) CLOUDY Abnormal CLEAR [facility] Comment on above: Performed By: #### C VDAGA #### [facility] [address] [place] [address] Dr. Christos Fallon Color (U) LT. YELLOW Normal YELLOW [facility] Comment on above: Performed By: #### C VDAGA #### [facility] [address] [place] [address] Dr. Christos Fallon ERUAHD A micrscopic examination will be performed if indicated. Normal [facility] Comment on above: Performed By: #### C VDAGA #### [facility] [address] [place] [address] Dr. Christos Fallon Glucose Ql (U) Negative Normal NEGATIVE [facility] Comment on above: Performed By: #### C VDAGA #### [facility] [address] [place] [address] Dr. Christos Fallon Hemoglobin Ql (U) Negative Normal NEGATIVE [facility] Comment on above: Performed By: #### C VDAGA #### [facility] [address] [place] [address] Dr. Christos Fallon Ketones Ql (U) Negative Normal NEGATIVE [facility] Comment on above: Performed By: #### C VDAGA #### [facility] [address] [place] [address] Dr. Christos Fallon LEUKOCYTES Negative Normal NEGATIVE [facility] Comment on above: Performed By: #### C VDAGA #### [facility] [address] [place] [address] Dr. Christos Fallon Nitrite Ql (U) Negative Normal NEGATIVE [facility] Comment on above: Performed By: #### C VDAGA #### [facility] [address] [place] [address] Dr. Christos Fallon pH (U) 6.0 [pH] Normal 5-9 [facility] Comment on above: Performed By: #### C VDAGA #### [facility] [address] [place] [address] Dr. Christos Fallon SPEC GRAVITY 1.010 Normal 1.005-<=1.02 5 [facility] Comment on above: Performed By: #### C VDAGA #### [facility] [address] [place] [address] Dr. Christos Fallon UA PROTEIN Negative Normal NEGATIVE/ TRACE The [facility] Comment on above: Performed By: #### C VDAGA #### [facility] [address] [place] [address] Dr. Christos Fallon UR MICRO IND NOT INDICATED Normal [facility] Comment on above: Performed By: #### C VDAGA #### [facility] [address] [place] [address] Dr. Christos Fallon Urobilinogen Qn (U) 0.2 {Peyman'U}/dL Normal 0.2 - 1. 0 [facility] Comment on above: Performed By: #### C VDAGA #### [facility] [address] [place] [address] Dr. Christos Fallon PROF 14(COMP METB)on 022 Albumin [Mass/Vol] 3.6 g/dL Normal 3.4-5.0 [facility] Comment on above: Performed By: #### C MP, HSTROPN, TSH #### [facility] [address] [address] [address] Christos Fallon Albumin/Globulin [Mass ratio] 0.9 {ratio} Normal [facility] Comment on above: Performed By: #### C MP, HSTROPN, TSH #### [facility] [address] [place] [address] Dr. Christos Fallon ALP [Catalytic activity/Vol] 83 U/L Normal 46-116 [facility] Comment on above: Performed By: #### C MP, HSTROPN, TSH #### [facility] [address] [place] [address] Dr. Christos Fallon ALT [Catalytic activity/Vol] 32 U/L Normal 14-59 [facility] Comment on above: Performed By: #### C MP, HSTROPN, TSH #### [facility] [address] [address] [address] Christos Fallon Anion gap [Moles/Vol] 15.4 mmol/L [facility] Comment on above: Performed By: #### C MP, HSTROPN, TSH #### [facility] [address] [address] [address] Christos Fallon AST [Catalytic activity/Vol] 15 U/L Normal 15-37 [facility] Comment on above: Performed By: #### C MP, HSTROPN, TSH #### [facility] [address] [address] [address] Christos Fallon Bilirubin [Mass/Vol] 0.3 mg/dL Normal 0.2-1.0 [facility] Comment on above: Performed By: #### C MP, HSTROPN, TSH #### [facility] [address] [address] [address] Christos Fallon Calcium [Mass/Vol] 8.9 mg/dL Normal 8.5-10.[address] [facility] Comment on above: Performed By: #### C MP, HSTROPN, TSH #### [facility] [address] [address] [address] Christos Fallon Chloride [Moles/Vol] 102 mmol/L Normal 98-107 The [facility] Comment on above: Performed By: #### C MP, HSTROPN, TSH #### [facility] [address] [address] [address] Christos Fallon CO2 [Moles/Vol] 22.7 mmol/L Normal 21.0-32.[address] [facility] Comment on above: Performed By: #### C MP, HSTROPN, TSH #### [facility] [address] [place] [address] Dr. Christos Fallon Creatinine [Mass/Vol] 0.97 mg/dL Normal 0.55-1.02 The [facility] Comment on above: Performed By: #### C MP, HSTROPN, TSH #### [facility] [address] [place] [address] Dr. Christos Fallon EGFR-AF IRISH >60 Normal >=[address] [facility] Comment on above: Performed By: #### C MP, HSTROPN, TSH #### [facility] [address] [place] [address] Dr. Christos Fallon EGFR-NON AF IRISH >60 Normal >=60 The [facility] Comment on above: Performed By: #### C MP, HSTROPN, TSH #### [facility] [address] [place] [address] Dr. Christos Fallon Globulin (S) [Mass/Vol] 3.8 g/dL Normal The [facility] Comment on above: Performed By: #### C MP, HSTROPN, TSH #### [facility] [address] [place] [address] Dr. Christos Fallon Glucose [Mass/Vol] 104 mg/dL Normal 74-[address] [facility] Comment on above: Performed By: #### C MP, HSTROPN, TSH #### [facility] [address] [place] [address] Dr. Christos Fallon Potassium [Moles/Vol] 4.1 mmol/L Normal 3.5-5.1 [facility] Comment on above: Performed By: #### C MP, HSTROPN, TSH #### [facility] [address] [address] [address] Christos Fallon Protein [Mass/Vol] 7.4 g/dL Normal 6.4-8.[address] [facility] Comment on above: Performed By: #### C MP, HSTROPN, TSH #### [facility] [address] [place] [address] Dr. Christos Fallon Sodium [Moles/Vol] 136 mmol/L Normal 136-[address] [facility] Comment on above: Performed By: #### C MP, HSTROPN, TSH #### [facility] [address] [place] [address] Dr. Christos Fallon Urea nitrogen [Mass/Vol] 17.0 mg/dL Normal 7.0-18.0 [facility] Comment on above: Performed By: #### C MP, HSTROPN, TSH #### [facility] [address] [address] [address] Christos Fallon Urea nitrogen/Creatinine [Mass ratio] 17.5 mg/mg Normal [facility] Comment on above: Performed By: #### C MP, HSTROPN, TSH #### [facility] [address] [place] [address] Dr. Christos Fallon TROPONIN, HIGH SENSITIVITYon 03-22-2022 HSTROP <4.0 Normal 4.0-51.3 The [facility] Comment on above: Result Comment: CUT- OFF POINTS HAVE BEEN ESTABLISHED BASED ON THE FOURTH UNIVERSAL DEFINITIONS OF MYOCARDIAL INFARCTION. THE UPPER REFERENCE LIMIT (URL) OF TROPONIN, DEFINED THE 99TH PERCENTILE OF cTnI DISTRIBUTION IN A REFERENCE POPULATION, HAS BEEN CONFIRMED THE DECISION THRESHOLD FOR NE DIAGNOSIS. Performed By: #### C MP, HSTROPN, TSH #### [facility] [address] [place] [address] Dr. Christos Fallon TSHon 03-22-2022 TSH 0.854 uIU/mL Normal 0.358-3.740 [facility] Comment on above: Performed By: #### C MP, HSTROPN, TSH #### [facility] [address] [address] [address] Christos Fallon ASYMPTOMATIC COVID-19 ANTIGE Non 03-03-2022 EUA Statement SEE BELOW Normal [facility] Comment on above: Result Comment: [...] sooner. Performed By: #### C VDAGA #### [facility] [address] [place] [address] Dr. Christos Fallon SARS-CoV-2 (COVID-19) RNA LEROY+probe Ql (Unsp spec) Positive Critically abnormal NEGATIVE The [facility] Comment on above: Result Comment: SARS -CoV-2 antigen present; does not rule out coinfection with other pathogens. Performed By: #### C VDAGA #### [facility] [address] [place] [address] Dr. Christos Fallon [facility] SARS-CoV-2 (COVID-19) RNA LEROY+probe Ql (Unsp spec) Detected Critically abnormal NOT DETECTED The [facility] Comment on above: Result Comment: This test is not yet approved or cleared by the [place] FDA. When there are no FDA-approved or cleared tests available, and other criteria are met, FDA can make tests available under an emergency access mechanism called an Emergency Use Authorization (EUA). The EUA for this test is supported by the [place] Attendant of Health and Human Service's declaration that [...] By: #### C MP, TSH, HSTROPN #### [facility] [address] [place] [address] Dr. Christos Fallon CRPon 11-25-2021 CRP [Mass/Vol] mg/L Normal <=1.[address] [facility] Comment on above: Performed By: #### C MP, TSH, HSTROPN #### [facility] [address] [place] [address] Dr. Christos Fallon VIT B12 AND FOLATEon 022 Cobalamin (Vitamin B12) [Mass/Vol] 329.0 pg/mL Normal 239.0-931.0 [facility] Comment on above: Performed By: #### C MP, TSH, HSTROPN #### [facility] [address] [place] [address] Dr. Christos Fallon FOLATE 8.50 ng/mL Normal >=2.76 [facility] Comment on above: Performed By: #### C MP, TSH, HSTROPN #### [facility] [address] [place] [address] Dr. Christos Fallon CBC AUTO DIFFon 11-19-2021 BASO # 0.1 103/ul Normal 0.0-0.1 [facility] Comment on above: Performed By: #### C BC #### [facility] [address] [place] [address] Dr. Christos Fallon Basophils/100 WBC (Bld) 0.8 % Normal 0.2-2.0 [facility] Comment on above: Performed By: #### C BC #### [facility] [address] [place] [address] Dr. Christos Fallon EO # 0.3 103/ul Normal 0.0-0.7 [facility] Comment on above: Performed By: #### C BC #### [facility] [address] [place] [address] Dr. Christos Fallon Eosinophils/100 WBC (Bld) 4.8 % Normal 0.9-7.0 [facility] Comment on above: Performed By: #### C BC #### [facility] [address] [place] [address] Dr. Christos Fallon Erythrocyte distribution width (RBC) [Ratio] 12.2 % Normal 11.0-15.0 [facility] Comment on above: Performed By: #### C BC #### [facility] [address] [place] [address] Dr. Christos Fallon Hematocrit (Bld) [Volume fraction] 41.9 % Normal 36.0-48.0 [facility] Comment on above: Performed By: #### C BC #### [facility] [address] [place] [address] Dr. Christos Fallon Hemoglobin (Bld) [Mass/Vol] 14.2 g/dL Normal 12.0-16.0 [facility] Comment on above: Performed By: #### C BC #### [facility] [address] [place] [address] Dr. Christos Fallon IG # 0.03 10e3/ul Normal 0.00-0.03 [facility] Comment on above: Performed By: #### C BC #### [facility] [address] [place] [address] Dr. Christos Fallon IG % 0.5 % Normal 0.0-0.5 [facility] Comment on above: Performed By: #### C BC #### [facility] [address] [place] [address] Dr. Christos Fallon LYMPH # 1.5 103/ul Normal 1.2-3.8 [facility] Comment on above: Performed By: #### C BC #### [facility] [address] [place] [address] Dr. Christos Fallon Lymphocytes/100 WBC (Bld) 24.6 % Normal 20.5-60.0 [facility] Comment on above: Performed By: #### C BC #### [facility] [address] [place] [address] Dr. Christos Fallon MANUAL DIFF REQ NO Normal [facility] Comment on above: Performed By: #### C BC #### [facility] [address] [place] [address] Dr. Christos Fallon MCH (RBC) [Entitic mass] 34.3 pg Critically high 26.7-34.0 [facility] Comment on above: Performed By: #### C BC #### [facility] [address] [place] [address] Dr. Christos Fallon MCHC (RBC) [Mass/Vol] 33.9 g/dL Normal 29.9-35.2 [facility] Comment on above: Performed By: #### C BC #### [facility] [address] [place] [address] Dr. Christos Fallon MCV (RBC) [Entitic vol] 101.2 fL Critically high 81.0-99.0 [facility] Comment on above: Performed By: #### C BC #### [facility] [address] [place] [address] Dr. Christos Fallon MONO # 0.5 103/ul Normal 0.3-0.8 [facility] Comment on above: Performed By: #### C BC #### [facility] [address] [place] [address] Dr. Christos Fallon Monocytes/100 WBC (Bld) 7.2 % Normal 1.7-12.0 [facility] Comment on above: Performed By: #### C BC #### [facility] [address] [place] [address] Dr. Christos Fallon NEUT # 3.9 103/ul Normal 1.4-6.5 The [facility] Comment on above: Performed By: #### C BC #### [facility] [address] [place] [address] Dr. Christos Fallon Neutrophils/100 WBC (Bld) 62.1 % Normal 43.0-75.0 [facility] Comment on above: Performed By: #### C BC #### [facility] [address] [address] [address] Christos Fallon Platelet mean volume (Bld) [Entitic vol] 9.1 fL Critically low 9.5-13.5 [facility] Comment on above: Performed By: #### C BC #### [facility] [address] [address] [address] Christos Fallon PLT 301 103/ul Normal 150-450 [facility] Comment on above: Performed By: #### C BC #### [facility] [address] [address] [address] Christos Fallon RBC 4.14 106/ul Critically low 4.20-5.40 [facility] Comment on above: Performed By: #### C BC #### [facility] [address] [place] [address] Dr. Christos Fallon WBC 6.3 103/ul Normal 4.0-11.0 [facility] Comment on above: Performed By: #### C BC #### [facility] [address] [place] [address] Dr. Christos Fallon FREE T3on 11-19-2021 FREE T3 2.72 pg/mlL Critically low 2.77-5.[address] [facility] Comment on above: Performed By: #### C MP, TSH, HSTROPN #### [facility] [address] [address] [address] Christos Fallon FREE T4on 11-19-2021 Free T4 [Mass/Vol] 1.09 ng/dL Normal 0.78-2.19 [facility] Comment on above: Performed By: #### C MP, TSH, HSTROPN #### [facility] [address] [place] [address] Dr. Christos Fallon GLYCOHEMOGLOBIN A1Con 2021 ADA RECOMMENDATION ADA THERAPEUTIC TARG ET 6.0 - 7.0 ACTION SUGGESTED > 7.0 Normal [facility] Comment on above: Performed By: #### A 1C #### [facility] [address] [address] [address] Christos Fallon Glucose [Mass/Vol] 105 mg/dL Normal [facility] Comment on above: Performed By: #### A 1C #### [facility] [address] [place] [address] Dr. Christos Fallon HbA1c (Bld) [Mass fraction] 5.3 % Normal <=6.0 [facility] Comment on above: Performed By: #### A 1C #### [facility] [address] [place] [address] Dr. Christos Fallon LIPID PROFILEon 11-19-2021 CHOL-HDL RATIO NORM SEE BELOW Normal [facility] Comment on above: Result Comment: 3.3 - 4.4 LOW RISK 4.4 - 7.1 AVERAGE RISK 7.1 - 11.0 MODERATE RISK >11.0 HIGH RISK Performed By: #### C MP, TSH, HSTROPN #### [facility] [address] [place] [address] Dr. Christos Fallon Cholesterol [Mass/Vol] 232 mg/dL Critically high <=200 [facility] Comment on above: Performed By: #### C MP, TSH, HSTROPN #### [facility] [address] [place] [address] Dr. Christos Fallon Cholesterol in HDL [Mass/Vol] 60 mg/dL Normal 40-60 [facility] Comment on above: Performed By: #### C MP, TSH, HSTROPN #### [facility] [address] [place] [address] Dr. Christos Fallon Cholesterol in LDL [Mass/Vol] 134.6 mg/dL Normal [facility] Comment on above: Performed By: #### C MP, TSH, HSTROPN #### [facility] [address] [place] [address] Dr. Christos Fallon Cholesterol.total/Cho lesterol in HDL [Mass ratio] 3.9 {ratio} Normal [facility] Comment on above: Performed By: #### C MP, TSH, HSTROPN #### [facility] [address] [place] [address] Dr. Christos Fallon HDL NORMAL > or = 60 mg/dl - LO W CARDIOVASCULAR RISK <40 mg/dl - HIGH CARDIOVASCULAR RISK Normal [facility] Comment on above: Performed By: #### C MP, TSH, HSTROPN #### [facility] [address] [address] [address] Christos Fallon LDL CALC NORMAL SEE BELOW Normal [facility] Comment on above: Result Comment: <100 mg/dl OPTIMAL 100 - 129 mg/dl NEAR OR ABOVE OPTIMAL 130 - 159 mg/dl BORDERLINE HIGH 160 - 189 mg/dl HIGH >190 mg/dl VERY HIGH Performed By: #### C MP, TSH, HSTROPN #### [facility] [address] [address] [address] Christos Fallon Triglyceride [Mass/Vol] 187 mg/dL Critically high <=150 [facility] Comment on above: Performed By: #### C MP, TSH, HSTROPN #### [facility] [address] [address] [address] Christos Fallon VLDL CALC 37.4 mg/dL Normal [facility] Comment on above: Performed By: #### C MP, TSH, HSTROPN #### [facility] [address] [address] [address] Christos Fallon PROF 14(COMP METB)on 022 Albumin [Mass/Vol] 3.8 g/dL Normal 3.4-5.0 [facility] Comment on above: Performed By: #### C MP, TSH, HSTROPN #### [facility] [address] [address] [address] Christos Fallon Albumin/Globulin [Mass ratio] 1.1 {ratio} Normal [facility] Comment on above: Performed By: #### C MP, TSH, HSTROPN #### [facility] [address] [address] [address] Christos Fallon ALP [Catalytic activity/Vol] 77 U/L Normal 46-116 [facility] Comment on above: Performed By: #### C MP, TSH, HSTROPN #### [facility] [address] [place] [address] Dr. Christos Fallon ALT [Catalytic activity/Vol] 34 U/L Normal 14-59 [facility] Comment on above: Performed By: #### C MP, TSH, HSTROPN #### [facility] [address] [address] [address] Christos Fallon Anion gap [Moles/Vol] 11.5 mmol/L Normal Th [facility] Comment on above: Performed By: #### C MP, TSH, HSTROPN #### [facility] [address] [address] [address] Christos Fallon AST [Catalytic activity/Vol] 21 U/L Normal 15-37 [facility] Comment on above: Performed By: #### C MP, TSH, HSTROPN #### [facility] [address] [place] [address] Dr. Christos Fallon Bilirubin [Mass/Vol] 0.7 mg/dL Normal 0.2-1.3 [facility] Comment on above: Performed By: #### C MP, TSH, HSTROPN #### [facility] [address] [address] [address] Christos Fallon Calcium [Mass/Vol] 8.8 mg/dL Normal 8.5-10.1 [facility] Comment on above: Performed By: #### C MP, TSH, HSTROPN #### [facility] [address] [place] [address] Dr. Christos Fallon Chloride [Moles/Vol] 104 mmol/L Normal 98-107 [facility] Comment on above: Performed By: #### C MP, TSH, HSTROPN #### [facility] [address] [place] [address] Dr. Christos Fallon CO2 [Moles/Vol] 28.6 mmol/L Normal 22.0-30.[address] [facility] Comment on above: Performed By: #### C MP, TSH, HSTROPN #### [facility] [address] [address] [address] Christos Fallon Creatinine [Mass/Vol] 0.88 mg/dL Normal 0.52-1.04 [facility] Comment on above: Performed By: #### C MP, TSH, HSTROPN #### [facility] [address] [place] [address] Dr. Christos Fallon EGFR-AF IRISH >60 Normal >=60 [facility] Comment on above: Performed By: #### C MP, TSH, HSTROPN #### [facility] [address] [address] [address] Christos Fallon EGFR-NON AF IRISH >60 Normal >=60 [facility] Comment on above: Performed By: #### C MP, TSH, HSTROPN #### [facility] [address] [place] [address] Dr. Christos Fallon Globulin (S) [Mass/Vol] 3.5 g/dL Normal [facility] Comment on above: Performed By: #### C MP, TSH, HSTROPN #### [facility] [address] [place] [address] Dr. Christos Fallon Glucose [Mass/Vol] 101 mg/dL Normal 74-[address] [facility] Comment on above: Performed By: #### C MP, TSH, HSTROPN #### [facility] [address] [place] [address] Dr. Christos Fallon Potassium [Moles/Vol] 4.1 mmol/L Normal 3.4-5.0 [facility] Comment on above: Performed By: #### C MP, TSH, HSTROPN #### [facility] [address] [place] [address] Dr. Christos Fallon Protein [Mass/Vol] 7.3 g/dL Normal 6.1-8.[address] [facility] Comment on above: Performed By: #### C MP, TSH, HSTROPN #### [facility] Laboratory [address] [place] [address] Dr. Christos Fallon Sodium [Moles/Vol] 140 mmol/L Normal 137-145 [facility] Comment on above: Performed By: #### C MP, TSH, HSTROPN #### [facility] Laboratory [address] [address] [address] Christos Fallon Urea nitrogen [Mass/Vol] 11.0 mg/dL Normal 7.0-18.0 The [facility] Comment on above: Performed By: #### C MP, TSH, HSTROPN #### [facility] Laboratory [address] [address] [address] Christos Fallon Urea nitrogen/Creatinine [Mass ratio] 12.5 mg/mg Normal [facility] Comment on above: Performed By: #### C MP, TSH, HSTROPN #### [facility] Laboratory [address] [address] [address] Christos Fallon TSHon 11-19-2021 TSH 0.774 uIU/mL Normal 0.470-4.680 The [facility] Comment on above: Performed By: #### C MP, TSH, HSTROPN #### [facility] Laboratory [address] [place] [address] Dr. Christos Fallon TSH RANGE SEE BELOW Normal The [facility] Comment on above: Result Comment: <0.3 4 UIU/ml HYPERTHYROID 0.34-5.60 UIU/ml EUTHYROID >5.60 UIU/ml HYPOTHYROID Performed By: #### C MP, TSH, HSTROPN #### [facility] Laboratory [address] [place] [address] Dr. Christos Fallon XR TSPINE 2 VIEWSon [...] TAMIE GUILLERMO Date: 2021-11-19 12:49 Normal The [facility] Cardiovascular Lab Reporton 11-17-2021 Cardiovascular Lab Report [facility] Patient Name: Kaila Vasquez [facility] MR #: [id number] Physician: Jonny Fowler M.D. Department of Service Date: 11/17/2021 Medicine Birthdate: 1980 Division of Room #: CC Cardiology Adult Cardiovascular Services [facility] [address] [facility] [place] [address] Cardiovascular Laboratory Report PROCEDURE: Implantable loop recorder [...] subcutaneous pocket, into which was deployed a BiotroniMoxie BioMonitor 3 implantable loop recorder. Via off [...] Fowler M.D. Date Trans: 11/17/2021 12:41 P/mmo [id number] cc: Mert Lama M.D. [address] [place] [address] [facility] [id number] Normal [facility] Covid-19 PCR (CVDTBH)on SARS-CoV-2 (COVID-19) RNA LEROY+probe Ql (Unsp spec) Not detected Normal NOT DETECTED The [facility] Comment on above: Result Comment: This test is not yet approved or cleared by the [place] FDA. When there are no FDA-approved or cleared tests available, and other criteria are met, FDA can make tests available under an emergency access mechanism called an Emergency Use Authorization (EUA). The EUA for this test is supported by the [place] of Health and Human Service's (HHS's) declaration [...] By: #### C MP, TSH, HSTROPN #### [facility] Laboratory [address] [place] [address] Dr. Christos Fallon Covid-19 PCR (CVDTBH)on SARS-CoV-2 (COVID-19) RNA LEROY+probe Ql (Unsp spec) Not detected Normal NOT DETECTED The [facility] Comment on above: Result Comment: When diagnostic [...] for this test is supported by the [place] Att[place] of Health and Human Service's declaration that [...] longer be used). Performed By: #### C [facility] #### [facility] Laboratory [address] [place], [place] [address] Dr. Christos Fallon Cardiovascular Lab Reporton 06-17-2021 Cardiovascular Lab Report [facility] Patient Name: Christina [facility] MR #: [id number] Physician: Vishal Rogers MD Department of Service Date: 06/17/2021 Medicine Birthdate: 1980 Division of Room #: CC Cardiology Adult Cardiovascular Services [place] [address] Cardiovascular Laboratory Report COMPREHENSIVE EP STUDY AND [...] same (more content not included)... Normal [facility] FEMUR LEFT 2 [facility] 1 FEMUR LEFT 2 [facility] Department of Radiology [address] [place] [id number] ======== Patient Name: KAILA VASQUEZ : 1980 Sex: F Age: Race: White Pt. 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 Electronically signed: Gelacio Pfeiffer. Transcribed by: [email or web address], User Resident: TAVON BELCHER Electronically Signed by: GELACIO PFEIFFER @ 01/15/2021 12:03 PM I personally read this/these film(s) with this resident Normal [facility] Comment on above: Order Comment: evalu ate Operative Reporton Operative Report MR#: [id number] S [facility] Pt. Name: Kaila Vasquez Room #: 0C Discharge 12/05/2020 Date: Birthdate: 1980 OPERATIVE REPORT DATE OF SURGERY: 12/05/2020 SURGEON: Pamella Brennan M.D. PREOPERATIVE DIAGNOSIS: Left distal femur osteochondroma. POSTOPERATIVE DIAGNOSIS: Left distal femur osteochondroma. PROCEDURE PERFORMED: Left distal femur osteochondroma excision. INTERNATIONAL LOGISTICS ANALYST: Alaina Edouard M.D. ANESTHESIA: General endotracheal. SPECIMENS: [...] i (more content not included)... Normal [facility] FEMUR LEFT 2 [facility] 1 FEMUR LEFT 2 [facility] Department of Radiology [address] [place] [phone] ======== Patient Name: KAILA VASQUEZ : 1980 Sex: F Age: Race: White Pt. Location: OUTP Patient Status: O Ordered Date: 12/05/2020 7:30:00 AM Completed Date: 12/05/2020 10:05 AM Requesting Provider: PAMELLA BRENNAN Attending Provider: PAMELLA BRENNAN Report Copy To: Signs & Symptoms: LEFT DISTAL FEMUR OSTEOCHONDROMA EXCISION History: Comments: LEFT DISTAL FEMUR OSTEOCHONDROMA EXCISION Exam: FEMUR LEFT 2 [facility] ======== FEMUR LEFT 2 VWS 12/05/2020 10:05 [...] purposes. Electronically signed: Ching Garcia. Transcribed by: [email or web address], User Resident: Electronically Signed by: CHING GARCIA @ 12/05/2020 11:54 AM Normal [facility] Comment on above: Order Comment: LEFT DISTAL FEMUR OSTEOCHONDROMA EXCISION POC GLUCOSE LABon 12-05-2020 Glucose [Mass/Vol] 108 mg/dL High 70-100 [facility] Comment on above: Performed By: #### 8 5499 ####[facility] *MRSA/MSSA DNA NASALon 11-28 *MRSA/MSSA DNA NASAL Clinical Report: (D ) Specimen: NASAL SWAB Collected: 11/28/2020 13:22 Status: Final Last Updated: 2020 13:05 MSSA DNA (Final) Negative MRSA DNA (Final) Negative Normal [facility] Comment on above: Performed By: #### 3 1595 ####[facility] [place] [address], [facility] APTTon 11-28-2020 aPTT Coag (Bld) [Time] 29.1 s Normal 25.0-35.0 [facility] Comment on above: Result Comment: ALL RESULTS [...] THIS PURPOSE. Performed By: #### 5 7307, [address]000 #### [facility] [address] [place] [address], [facility] BASIC METABOLIC PANELon - Calcium [Mass/Vol] 9.5 mg/dL Normal 8.6-10.3 [facility] Comment on above: Performed By: #### 0 0071 #### [facility] [address] [place] [address], [facility] Chloride [Moles/Vol] 104 mmol/L Normal 98-107 [facility] Comment on above: Performed By: #### 0 0071 #### [facility] [address] [place] [address], [place] CO2 [Moles/Vol] 28 mmol/L Normal 21-31 [facility] Comment on above: Performed By: #### 0 0071 #### [facility] [address] [place] [address], [place] Creatinine [Mass/Vol] 0.90 mg/dL Normal 0.60-1.20 [facility] Comment on above: Performed By: #### 0 0071 #### [facility] [address] [place] [address], [place] GFR/1.73 sq M.predicted among blacks MDRD (S/P/Bld) [Vol rate/Area] mL/min/{1.73_m2} Normal >60 [facility] Comment on above: Performed By: #### 0 0071 #### [facility] [address] [place] [address], [place] GFR/1.73 sq M.predicted among non-blacks MDRD (S/P/Bld) [Vol rate/Area] mL/min/{1.73_m2} Normal >60 [facility] Comment on above: Performed By: #### 0 0071 #### [facility] [address] [place] [address], [facility] Glucose [Mass/Vol] 132 mg/dL High 70-100 [facility] Comment on above: Performed By: #### 0 0071 #### [facility] [address] [place] [address], [facility] Potassium [Moles/Vol] 3.8 mmol/L Normal 3.5-5.1 [facility] Comment on above: Performed By: #### 0 0071 #### [facility] [address] [place] [address], [facility] Sodium [Moles/Vol] 138 mmol/L Normal 136-145 [facility] Comment on above: Performed By: #### 0 0071 #### [facility] [address] [facility] [place] [address], [facility] Urea nitrogen [Mass/Vol] 9 mg/dL Normal 7-25 [facility] Comment on above: Performed By: #### 0 0071 #### [facility] [address] [facility] [place] [address], [facility] CBC W/DIFFon 11-28-2020 ABS IMM GRANS 0.0 10*3/uL Normal 0.0-0.2 [facility] Comment on above: Performed By: #### 5 0103 ####[facility] [place] [address], [facility] ABS NEUTROPHILS 7.2 10*3/uL Normal 1.6-7.6 [facility] Comment on above: Performed By: #### 5 010 ####[facility] [facility] [place] [address], [facility] Basophils (Bld) [#/Vol] 0.1 10*3/uL Normal 0.0-0.2 [facility] Comment on above: Performed By: #### 5 0103 ####[facility] [facility] [place] [address], [facility] Basophils/100 WBC (Bld) 0.6 % Normal 0.0-1.0 [facility] Comment on above: Performed By: #### 5 0103 ####[facility] [facility] [place] [address], [facility] Eosinophils (Bld) [#/Vol] 0.3 10*3/uL Normal 0.0-0.5 [facility] Comment on above: Performed By: #### 5 3 ####[facility] [facility].[address] Eosinophils/100 WBC (Bld) 2.6 % Normal 0.0-6.0 [facility] Comment on above: Performed By: #### 5 3 ####[facility] [facility].[address] Erythrocyte distribution width (RBC) [Ratio] 12.6 % Normal 11.5-15.0 [facility] Comment on above: Performed By: #### 3 ####[facility] [facility].[address] Hematocrit (Bld) [Volume fraction] 42.6 % Normal 36.0-45.0 [facility] Comment on above: Performed By: #### 3 ####[facility] [facility].[address] Hemoglobin (Bld) [Mass/Vol] 14.4 g/dL Normal 12.0-15.0 [facility] Comment on above: Performed By: #### 3 ####[facility] [facility].[address] IMMATURE GRANS 0.3 % Normal 0.0-1.0 [facility] Comment on above: Performed By: #### 5 0103 ####[facility] [place] [address] Lymphocytes (Bld) [#/Vol] 2.1 10*3/uL Normal 1.2-4.0 [facility] Comment on above: Performed By: #### 5 0103 ####[facility] [place] [address] Lymphocytes/100 WBC (Bld) 20.2 % Normal 20.0-45.0 [facility] Comment on above: Performed By: #### 5 3 ####[address] MCH (RBC) [Entitic mass] 33.6 pg High 27.0-33.0 [facility] Comment on above: Performed By: #### 5 3 ####[address] MCHC (RBC) [Mass/Vol] 33.8 g/dL Normal 32.0-35.0 [facility] Comment on above: Performed By: #### 3 ####[place] [id number] [address] MCV (RBC) [Entitic vol] 99.5 fL High 82.0-98.0 [facility] Comment on above: Performed By: #### 5 3 ####[address] Monocytes (Bld) [#/Vol] 0.7 10*3/uL Normal 0.1-1.0 [facility] Comment on above: Performed By: #### 5 3 ####[address] MONOS 6.4 % Normal 5.0-12.0 [facility] Comment on above: Performed By: #### 5 0103 ####[facility] [place] [address], [facility] Neutrophils/100 WBC (Bld) 69.9 % Normal 40.0-72.0 [facility] Comment on above: Performed By: #### 5 0103 ####[facility] [facility].[address] Nucleated RBC/100 WBC (Bld) [Ratio] 0 % Normal 0-0 [facility] Comment on above: Performed By: #### 5 0103 ####[facility] [facility].[address] PLAT CNT 346 10*3/uL Normal 150-400 [facility] Comment on above: Performed By: #### 5 0103 ####[facility] [facility].[address] RBC (Bld) [#/Vol] 4.28 10*6/uL Normal 3.80-5.00 [facility] Comment on above: Performed By: #### 5 0103 ####[facility] [facility] [place] [address], [facility] WBC (Bld) [#/Vol] 10.24 10*3/uL Normal 4.00-10.60 [facility] Comment on above: Performed By: #### 5 0103 ####[facility] [facility].[address] PROTHROMBIN TIMEon 1 INR Coag (PPP) [Relative time] 0.99 {INR} Normal 0.91-1.16 [facility] Comment on above: Result Comment: ACCC P [...] CHEST 1995;[id number]. Performed By: #### 5 7307, 76985 #### [facility] [address] PT Coag (PPP) [Time] 13.1 s Normal 12.3-14.8 [facility] Comment on above: Result Comment: ALL RESULTS MUST BE INTERPRETED WITH RESPECT TO BLOOD DRAWING ARTIFACT OR DILUTION ERROR OF ANTICOAGULANT AT THE TIME OF SAMPLING. Performed By: #### 5 7307, 51407 #### [facility] [address] [place] [address], [facility] TYPE AND CROSSMATCHon 2020 ABO INTERPRETATION O Normal [facility] Comment on above: Performed By: #### 6 2594 #### [facility] [address] [place] [address], [facility] RH INTERPRETATION Positive Normal [facility] Comment on above: Performed By: #### 6 2594 #### [facility] [address] [place] [address], [facility] URINALYSISon 11-28-2020 Appearance (U) CLEAR Normal CLEAR [facility] Comment on above: Performed By: #### 1 0008 #### [facility] [address] [place] [address], [facility] Bilirubin Ql (U) Negative Normal NEGATIVE [facility] Comment on above: Performed By: #### 1 0008 #### [facility] [address] [place] [address], [place] Color (U) YELLOW Normal YELLOW [facility] Comment on above: Performed By: #### 1 0008 #### [facility] [address] [place] [address], [place] Glucose Ql (U) Negative Normal NEGATIVE [facility] Comment on above: Performed By: #### 1 0008 #### [facility] [address] [place] [address], [facility] Hemoglobin Ql (U) Negative Normal NEGATIVE [facility] Comment on above: Performed By: #### 1 0008 #### [facility] [address] [facility] [place] [address], [facility] KETONE Negative Normal NEGATIVE [facility] Comment on above: Performed By: #### 1 0008 #### [facility] [address] [facility] [place] [address], [place] LEUK JORDAN Negative Normal NEGATIVE [facility] Comment on above: Performed By: #### 1 0008 #### [facility] [address] [place] [address], [facility] MICRO NOT DONE Normal [facility] Comment on above: Result Comment: Micr oscopics not performed on urines with negative chemical reactions unless requested in original order Performed By: #### 1 0008 #### [facility] [address] [facility] [place] [address], [place] Nitrite Ql (U) Negative Normal NEGATIVE [facility] Comment on above: Performed By: #### 1 0008 #### [facility] [address] [place] [address], [place] pH (U) 6.0 [pH] Normal 5.0-8.0 [facility] Comment on above: Performed By: #### 1 0008 #### [facility] [address] [place] [address], [facility] Protein Ql (U) Negative Normal NEGATIVE [facility] Comment on above: Performed By: #### 1 0008 #### [facility] [address] [place] [address], [facility] SPEC GRAV 1.018 Normal 1.015-1.020 [facility] Comment on above: Performed By: #### 1 0008 #### [facility] [address] [place], [place] [id number] [place] [address] Vital Signs Date Time Vital Sign Value Performing Clinician Faci karine 08-24-2022 13:44-0500 Body height 162.6 cm Janell Sy MD Work Phone: [facility] 08-24-2022 13:44-0500 Body weight 112.95 kg Janell Sy MD Work Phone: [facility] 08-24-2022 13:44-0500 Diastolic blood pressure 73 mm[Hg] Janell Sy MD Work Phone: [facility] 08-24-2022 13:44-0500 Heart rate 88 /min Janell Sy MD Work Phone: [facility] 08-24-2022 13:44-0500 SaO2% (BldA) [Mass fraction] 98 % Janell Sy MD Work Phone: [facility] 08-24-2022 13:44-0500 Systolic blood pressure 112 mm[Hg] Janell Sy MD Work Phone: [facility] 08-05-2022 10:00-0500 Diastolic blood pressure 88 mm[Hg] Carmen Johnson PT Work Phone: [facility] 08-05-2022 10:00-0500 Heart rate 78 /min Carmen Johnson PT Work Phone: [facility] 08-05-2022 10:00-0500 Systolic blood pressure 134 mm[Hg] Carmen Johnson PT Work Phone: [facility] 07-07-2022 08:12-0500 Body height 162.6 cm Glenroy Syed ENGAGEMENT QUALITY CONSULTANT.SUPERVISOR [employer] Work Phone: [facility] 07-07-2022 08:12-0500 Body weight 112.04 kg Glenroytoan Syed ENGAGEMENT QUALITY CONSULTANT.SUPERVISOR [employer] Work Phone: [facility] 07-07-2022 08:12-0500 Diastolic blood pressure 88 mm[Hg] Glenroy Syed ENGAGEMENT QUALITY CONSULTANT.SUPERVISOR [employer] Work Phone: [facility] 07-07-2022 08:12-0500 Heart rate 82 /min Glenroy Syed ENGAGEMENT QUALITY CONSULTANT.SUPERVISOR [employer] Work Phone: [facility] 07-07-2022 08:12-0500 SaO2% (BldA) [Mass fraction] 98 % Glenroy Syed ENGAGEMENT QUALITY CONSULTANT.SUPERVISOR [employer] Work Phone: [facility] 07-07-2022 08:12-0500 Systolic blood pressure 134 mm[Hg] Glenroy Syed ENGAGEMENT QUALITY CONSULTANT.SUPERVISOR [employer] Work Phone: [facility] 12-09-2021 13:59-0400 Blood Pressure Location Pamella SANABRIA General Surgery [place] 12-09-2021 13:59-0400 Diastolic blood pressure 78 mm[Hg] Pamella ZIMMERMANL [facility] [place] 12-09-2021 13:59-0400 Heart rate 68 /min Pamella ZIMMERMANL [facility] [place] 12-09-2021 13:59-0400 Respiratory rate 16 /min Pamella ZIMMERMANL General [facility] [place] 12-09-2021 13:59-0400 Systolic blood pressure 118 mm[Hg] Pamella NILL General Surgery [place] Encounters Encounter Date Encounter Type Care Provider Facility Start: 12-19-2023 End: 12-20-2023 ambulatory INSURANCE CLAIM APPROVER Cristiane Gutiérrez Facility:[facility] Start: 12-02-2023 ambulatory [facility] Start: 10-25-2023 End: 10-25-2023 ambulatory IRMA CHUNGO Not Available Start: 08-25-2023 End: 08-25-2023 ambulatory IRMA SUDHA Not Available Start: 12-21-2022 End: 12-21-2022 ambulatory [facility] Start: 12-15-2022 End: 12-15-2022 ambulatory [facility] Start: 12-15-2022 End: 12-15-2022 ambulatory [facility] Start: 10-15-2022 Orders Only Glenroy Syed APRN.SUPERVISOR [employer] Work Phone: Neurology Comment on above: 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 (Primary Dx) Start: 10-14-2022 End: 10-14-2022 ambulatory GLENROY SYED Facility:[facility] Start: 09-09-2022 ambulatory Mauri Ross RT(R) Ra soto Comment on above: Radiology MRI Start: 09-09-2022 Patient encounter procedure Mauri LUCAS(R) RONALDO EASON Start: 09-02-2022 End: 09-02-2022 ambulatory ELENA GUAN Facility: Start: 08-24-2022 End: 08-24-2022 ambulatory GLENROY SYED Facility:[facility] Start: 08-24-2022 End: 08-24-2022 Patient encounter procedure Janell Sy MD Work Phone: Cardiology Comment on above: KANG (obstructive sle ep apnea) (Primary Dx); Dizziness; Palpitations; Obesity, morbid, BMI 40.0-49.9 (HCC); SVT (supraventricular tachycardia) ([facility]); Chronic fatigue; Vitamin D deficiency Start: 08-20-2022 Orders Only Len Shea APRN.SUPERVISOR [employer] Work Phone: Neurology Comment on above: Ocular migraine (Dinora andres Dx) Start: 08-19-2022 End: 08-19-2022 ambulatory [facility] Neurology Comment on above: Neuro Ophthalmologis t Start: 08-16-2022 ambulatory [facility] Provider Neurology Comment on above: MRI Start: 08-12-2022 End: 08-12-2022 ambulatory GLENROY SYED Facility:[facility] Start: 08-12-2022 End: 08-12-2022 ambulatory Carmen Seese PT Work Phone: Physical Therapy Comment on above: Dizziness (Primary D x); Cervicalgia; Headaches Start: 08-05-2022 End: 08-05-2022 ambulatory GLENROY SYED Facility:[facility] Start: 08-05-2022 End: 08-05-2022 ambulatory Carmen Seese PT Work Phone: Physical Therapy Comment on above: Dizziness (Primary D x); Cervicalgia; Headaches Start: 07-29-2022 End: 07-29-2022 ambulatory WM RODRIGUEZ Facility:[facility] Start: 07-21-[address] MERT LAMA Facilit y:[facility] Start: 07-07-2022 Telephone encounter Glenroy rodriguez ENGAGEMENT QUALITY CONSULTANT.SUPERVISOR [employer] Work Phone: Neurology Comment on above: [facility] Start: 07-07-2022 End: 07-07-2022 ambulatory GLENROY SYED Facility:[facility] Start: 07-07-2022 End: 07-07-2022 Patient encounter procedure Glenroy Syed ENGAGEMENT QUALITY CONSULTANT.SUPERVISOR [employer] Work Phone: Neurology Comment on above: Dizziness [...] Patient encounter procedure Pamella SANABRIA General Surgery [facility] Start: 11-25-2021 End: 11-26-[address] MERT LAMA Facility:[facility] Start: 11-23-2021 Encounter for genera l adult medical examination without abnormal findings DR MERT LAMA [facility] Start: 11-19-2021 End: 11-20-[address] MERT LAMA Facility:[facility] Start: 11-19-2021 End: 11-20-2021 Encounter for general adult medical examination without abnormal findings DR MERT LAMA Facility:[facility] Start: 11-17-2021 End: 11-18-2021 ambulatory MERT LAMA Facility:[facility] Start: 11-14-2021 End: 11-15-2021 ambulatory ANU CABAN Facility:[facility] Start: 10-08-2021 End: 10-08-2021 ambulatory WM RODRIGUEZ Facility:[facility] Start: 06-17-2021 End: 06-18-2021 ambulatory MERT LAMA Facility:[facility] Start: 04-16-2021 End: 05-23-2021 ambulatory MERT LAMA Facility:[facility] Start: 12-05-2020 End: 12-06-2020 ambulatory MERT LAMA Facility:[facility] Procedures Date Procedure Procedure Detail Performing Clinician Start: 08-24-2022 Ecg routine ecg w/le ast 12 lds i&r only [facility] Provider Start: 12-05-2020 ANESTH KNEE AREA SURGERY MERT LAMA Start: 12-05-2020 REMOVE FEMUR LESION CARLOS HAEL P MIKA Start: 11-28-2020 Antibody screen MERT ORTIZ Comment on above: Performed By: #### 6 [id number] #### [address] Start: 11-04-2020 Cystourethroscopy wi th dilation of urethral stricture Pamella ZIMMERMANWillem Abdominal hysterectomy Wale SANABRIA Bilateral complete salpingectomy Pamella ZIMMERMANWillem Cardiac radiofrequen cy ablation using ultrasound guidance Pamella SANABRIA Cholecystectomy Pamella SANABRIA Excision of osteochondroma Nestor SANABRIA History of ankle surgery Carlos SANABRIA Plan of Treatment Date Care Activity Detail Author Start: 08-08-2022 DEPRESSION ASSESSMENT DEPRESSION ASS [facility] Start: 07-07-2022 End: 09-06-2022 25-hydroxyvitamin D3 [Mass/volume] in Serum or Plasma [facility] Work Phone: Comment on above: Expected: 07/07/2022 , Expires: 09/06/2022 Start: 07-07-2022 End: 09-06-2022 ESEQUIEL BY IFA WITH REFLEX [facility] Work Phone: Comment on above: Expected: 07/07/2022 , Expires: 09/06/2022 Start: 04-08-2022 Influenza vaccination INFLUENZA (#1) [facility] Start: 08-08-2021 DEPRESSION ASSESSMENT DEPRESSION ASS [facility] Start: 11-05-2020 COVID-19 VACCINE (3 - Booster for Giancarlo series) COVID-19 VACCINE (3 - Booster for Giancarlo series) [facility] Start: 2012 HPV TESTING HPV TESTING [facility] Start: 11-30-2003 PAP TESTING PAP TESTING [facility] Start: 2001 Urine microalbumin profile DTA P,TDAP,TD (1 - Tdap) [facility] Start: 2000 HEPATITIS C SCREENING HEPATITIS C SC PARKER [facility] Start: 2000 HIV SCREENING HIV SCREENING [facility] Start: 1982 HEPATITIS B (1 of 3 - 3-dose series) HEPATITIS B (1 of 3 - 3-dose series) [facility] End: 08-24-2023 ECG COMPLETE ECG COMPLETE ECG Routine Dizziness Palpitations Obesity, morbid, BMI 40.0-49.9 (HCC) 1 Occurrences starting 08/24/2022 until 08/24/2023 [facility] Work Phone: Comment on above: 1 Occurrences starti ng 08/24/2022 until 08/24/2023 ECG COMPLETE ECG COMPLETE ECG 08/24/2022 1:56 PM EST [facility] End: 07-07-2023 Echocardiography ECHO Cardiology Routine Palpitations 1 Occurrences starting 07/07/2022 until 07/07/2023 [facility] Work Phone: Comment on above: 1 Occurrences starti ng 07/07/2022 until 07/07/2023 End: 08-06-2023 Mri brain brain stem w/o w/contrast material MRI BRAIN WO/W IVCON Radiology Routine Dizziness Vision changes 1 Occurrences starting 07/07/2022 until 08/06/2023 [facility] Work Phone: Comment on above: 1 Occurrences starti ng 07/07/2022 until 08/06/2023 End: 09-15-2023 Mri spinal canal cervical w/o & w/contr matrl MRI CERVICAL SPINE WO/W IVCON Radiology Routine Dizziness Vision changes Cervicalgia Disturbance of skin sensation 1 Occurrences starting 08/16/2022 until 09/15/2023 [facility] Work Phone: Comment on above: 1 Occurrences starti ng 08/16/2022 until 09/15/2023 [place] Immunizations Immunization Date Immunization Notes Care Provider Tayo cullen 09-10-2020 SARS-CoV-2 (COVID-19 ) Ad26 vaccine, recombinant Pamella NILL [facility] 08-12-2020 SARS-CoV-2 (COVID-19 ) Ad26 vaccine, recombinant Pamella NILL [facility] Payers Date Payer Category Payer Unknown [id number] 2021 Unknown [id number] 1982 Unknown [id number] 2.16.8 [id number] 1982 Unknown [id number] 2.16.8 40.1.904929.3.579.2.647 1982 Unknown [id number] 2.16.8 40.1.815537.3.579.2.647 1982 Unknown [id number] 2.16.8 40.1.233660.3.579.2.647 1982 Unknown [id number] 2.16.84 0.1.652508.3.579.2.593 1982 Unknown [id number] 2.16.84 0.1.467905.3.579.2.593 1982 Unknown [id number] 2.16.84 0.1.852061.3.579.2.593 1982 Unknown [id number] 2.16.84 0.1.287970.3.579.2.593 1982 Unknown [id number] 2.16.84 0.1.715482.3.579.2.593 1982 Unknown [id number] 2.16.84 0.1.946563.3.579.2.593 1982 Unknown [id number] 2.16.84 0.1.487752.3.579.2.593 1982 Unknown [id number] 2.16.84 0.1.452892.3.579.2.593 1982 Unknown [id number] 2.16.84 0.1.613572.3.579.2.593 1982 Unknown [id number] 2.16.84 0.1.247830.3.579.2.593 1982 Unknown [id number] 2.16.84 0.1.031018.3.579.2.593 1982 Unknown [id number] 2.16.84 0.1.333886.3.579.2.593 1982 Unknown [id number] 2.16.84 0.1.912777.3.579.2.593 1982 Unknown [id number] 2.16.84 0.1.800423.3.579.2.593 1982 Unknown [id number] 2.16.84 0.1.788285.3.579.2.593 1982 Unknown [id number] 2.16.84 0.1.441865.3.579.2.1259 1982 Unknown [id number] 2.16.84 0.1.137700.3.579.2.1259 1982 Unknown [id number] 2.16.8 40.1.405307.3.579.2.727 1959 Unknown [id number] Social History Date Type Detail Facility Start: 12-09-2021 End: 07-07-2022 Tobacco smoking status Never smoked tobacco (finding) [facility] Tobacco smoking status Never [facility] Sex Assigned At Female [facility] Start: 07-07-2022 Tobacco use and exposure Smokeless tobacco non-user [facility] Start: 1982 Sex Assigned At Not on file C [facility] Start: 06-27-2022 End: 07-07-2022 Exposure to SARS-CoV-2 (event) Not sure [facility] Start: 08-24-2022 Alcohol intake Current drinke r of alcohol (finding) [facility] Start: 08-24-2022 Alcohol Comment occasionally 1 -2 times a months 2-3 drinks [facility] Clinical Notes 12-30-2021 to 12-21-2022 Mauri Ross, RT(R) - 09/09/2022 2:11 PM Marilyn Sy MD - 08/24/2022 1:45 PM ESTTelephone Encounter - Glenroy Syed APRN.SUPERVISOR [employer] - 08/16/2022 8:28 AM DARIENCarmen Johnson, PT - 08/12/2022 2:51 PM EST Note Date & Type Note Facility 12-21-2022 Note Date of Telehealth V isit: 12/21/2022 The patient was notified that using 3rd libertarian telecommunication application (e.g., [employer]) is not HIPPA compliant and may carry some privacy risks. Yes The visit was conducted [id number] with the use of audio and video [...] documentation in this note for specific details. [facility] Consult Note Reason for Consultation: Palpitations [...] sleep recently and that was recorded on [employer] secured entrance monitor reveals evidence of sinus tachycardia 120 bpm. Pt had COVID recently and since then has been experiencing palpitations. She notes these when she is changing positions and also when she bends down. 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 [facility] 12-15-2022 Note Patient here c/o sym ptoms. [...] study yet. She was worked up in [facility] ED in Aug 2022 for palpitations. Review of Systems Cardiovascular: Positive for chest pain, dyspnea on exertion, irregular heartbeat, near-syncope and palpitations. Respiratory: Positive for shortness of breath. Neurological: Positive for dizziness, headaches and light-headedness. All other systems reviewed and are negative. [facility] 12-15-2022 Note [place] Cardiology Consul t Note Reason for Consultation: [...] sleep recently and that was recorded on [facility] secured entrance monitor reveals evidence of sinus tachycardia 120 bpm. Pt had COVID recently and since then has been experiencing palpitations. She notes these when she is changing positions and also when she bends down. 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 [facility] 10-14-2022 Note HNO ID: [id number] Author: RT Mary(R) Service: ? Author Type: [...] RT Mary(R) October 14, 2022 4:55 PM [facility] 10-14-2022 Note HNO ID: [id number] Author: Papa Rea RN Service: Radiology Author [...] DATE: October 14, 2022 TIME: 3:20 PM [facility] 09-09-2022 Note HNO ID: [id number] Author: RT Od[place](R) Service: ? Author Type: [...] 09, 2022 TIME: 2:11 PM PAGER/CONTACT #: [facility] 09-09-2022 History of Present illness Narrative RADIOLOGY [...] PM PAGER/CONTACT #: documented in this encounter [facility] 08-24-2022 Note HNO ID: [id number] Author: Janell Sy MD Service: ? Author Type: Physician Type: Progress Notes Filed: 08/24/2022 2:17 PM Note Text: [facility]ION[facility] CARDIOLOGY OUTPATIENT VISIT DATE [...] Cardiac work-up includes: Echocardiogram on 05/19/2020 at [facility] showed normal ejection fraction. No valvular heart [...] ECG COMPLETE 4. Obesity, morbid, BMI 40.0-49.9 ([facility]) E66.01 ECG COMPLETE 5. SVT (supraventricular tachycardia) ([facility]) I47.1 6. Chronic fatigue R53.82 [...] Never Vaping U (more content not included)... [facility] 08-24-2022 History of Present illness Narrative Images from the original note were not included. [facility]IONAL CARDIOLOGY OUTPATIENT VISIT DATE [...] Cardiac work-up includes: Echocardiogram on 05/19/2020 at [facility] showed normal ejection fraction. No valvular heart [...] ECG COMPLETE 4. Obesity, morbid, BMI 40.0-49.9 ([facility]) E66.01 ECG COMPLETE 5. SVT (supraventricular tachycardia) ([facility]) I47.1 6. Chronic fatigue R53.82 [...] PVC (premature ventricular contraction) SVT (supraventricular tachycardia) ([facility]) Vitamin D deficiency No past [...] twice daily.^Disp: ^Rfl: documented in this encounter [facility] 08-19-2022 Note HNO ID: [id number] Author: Mauri Chun OD Service: ? Author Type: QUOTE CLERK Type: Progress Notes Filed: 08/19/2022 10:22 AM Note Text: Ocular health is unremarkable with no abnormalities. Normal ON appearance Ophthalmic migraines Glasses Rx given with slight prism [facility] 08-16-2022 Miscellaneous Notes signed We can add it to fully evaluate her symptoms. -LP documented in this encounter [facility] 08-12-2022 Note HNO ID: [id number] Author: Carmen Johnson, PT Service: ? Author [...] Time Minutes (timed/untimed): 60 Carmen Johnson, PT [facility] 08-12-2022 History of Present illness Narrative Episode [...] Carmen Johnson PT documented in this encounter [facility] 08-05-2022 Note HNO ID: [id number] Author: Carmen Johnson PT Service: ? Author [...] Planned: 8 Planned Treatment Interventions: Therapeutic exercise (91669);Neuromuscular re-education (82483);Manual therapy (04955);Therapeutic activities (23160);Self-detention management (12677);Patient/Family/Caregiver Education;Gait Training (38419);Canalith Repositioning Maneuvers (36945) PLAN FOR NEXT VISIT: Detailed neck exam [...] Premature atrial contra (more content not included)... [facility] 08-05-2022 History of Present illness Narrative Episode [...] Planned: 8 Planned Treatment Interventions: Therapeutic exercise (72332);Neuromuscular re-education (46055);Manual therapy (09247);Therapeutic activities (56506);Self-detention management (11254);Patient/Family/Caregiver Education;Gait Training (60836);Canalith Repositioning Maneuvers (15144) PLAN FOR NEXT VISIT: Detailed neck exam [...] Positional Testing Right Juan-Hallpike: No nystagmus;Asymptomatic Left [place]-Hallpike: No nystagmus;Asymptomatic Right Nylen Barany: No nystagmus;Asymptomatic [...] Demonstration;Requires Review/Additional Education TREATMENT: PT Treatment Interventions: Self-Fpc Management;Therapeutic Exercise Evaluation Therapeutic Exercise: 1: c/s retractions x 10, cues for technique Skilled Intervention: Patient was educated in proper exercise technique and purpose for exercises. Patient education as noted. Self-Fpc Management: 1: Educated regarding potential multifactorial cause [...] Carmen Johnson PT documented in this encounter [facility] 07-07-2022 Note HNO ID: [id number] Author: Glenroy Syed APRN.SUPERVISOR [employer] Service: ? Author Type: Nurse Practitioner Type: Progress Notes Filed: 07/07/2022 12:28 PM Note Text: [facility] General Neurology New Patient Evaluation CHIEF COMPLAINT: [...] over a month. 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 A couple times a month she gets [...] for 1 dose.N (more content not included)... [facility] 07-07-2022 Miscellaneous Notes Noted. Provider notified. Received medical records from [facility]. Uploaded to chart and forwarded for review. documented in this encounter [facility] 07-07-2022 Instructions Glenroy Syed APRN.SUPERVISOR [employer] - 07/07/2022 9:06 AM EST Plan: Baseline labs MRI Brain for multiple symptoms ECHO for palpitations and arrhythmias Aspirin 81mg daily in the setting of known arrhythmias Consult to [place] for dizziness Consult to Cardiology for second opinion Consult to ophthalmology Follow up after testing documented in this encounter [facility] 07-07-2022 History of Present illness Narrative Images from the original note were not included. [facility] General Neurology New Patient Evaluation CHIEF COMPLAINT: [...] over a month. 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 A couple times a month she gets [...] Finger Abduction (U) 5 Finger Abduction 5 Gis Software Developer 5 Gis Software Developer 5 Right Lower Extremity: (of 5) Left [...] over a month. 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 A couple times a month she gets [...] [place] reccommended. Patient wanting second opinion from antichecking iron worker within the [facility], referral placed. Unlikely autonomic dysfunction with unremarkable tilt and orthostatic vitals in office unconvincing (did not take BB today). Additionally, with visual changes, recommended seeing neuro underwriting service representative. Will obtain additional labs as well. Follow [...] which included preparing to see the patient, [id number] patient care, completing clinical documentation, obtaining and/or reviewing separately obtained history, performing a medically appropriate examination, counseling and educating the patient/family/caregiver, ordering medications, tests, or procedures, and care coordination (not separately reported). Glenroy Syed APRN.CNP [facility] General Neurology [address] [place] [address] Appointment: [phone] In regards to blood work, testing, and [...] your PCP/referring physician documented in this encounter [facility] 03-16-2022 Note EXAM: CHEST 2 VIEWS HISTORY: [...] by: BETTY MORALES Date: 2022-03-16 18:13 [facility] 12-30-2021 Note [facility] [place], [place] NAME: KAILA VASQUEZ DATE OF : MEDICAL REC#: [id number] RECRUITMENT DIRECTOR: [address] [place] GASTELUM TRANSADMIT DATE: 12/30/2021 09:02:00 CIRCUIT TESTER DATE: 12/30/2021 21:00 DICTATING PHYSICIAN: PAMELLA SANABRIA [...] DR PAMELLA SANABRIA . 01/06/2022 08:31:00 [facility] Evaluation + Plan note No data available for this section [facility] Evaluation note Diagnosis Dizziness- Primary Dizziness and giddiness Migraine aura without headache Migraine with aura, without mention of intractable migraine without mention of status migrainosus Palpitations Chronic fatigue Other malaise and fatigue Vision changes Unspecified visual disturbance Disturbance of skin sensation [facility] Diagnosis Dizziness- Primary Dizziness and giddiness Cervicalgia Headaches [facility] [place] [facility]* Diagnosis Dizziness- Primary Dizziness and giddiness Cervicalgia Headaches [facility] [place] [facility]* Diagnosis Cervicalgia- Primary Dizziness Dizziness and giddiness Vision changes Unspecified visual disturbance Disturbance of skin sensation [facility] [place] [facility]* Diagnosis Ocular migraine- Primary Other forms of migraine, without mention of intractable migraine without mention of status migrainosus [facility] Diagnosis KANG (obstructive sleep apnea)- Primary Obstructive sleep apnea (adult) (pediatric) Dizziness Dizziness and giddiness Palpitations Obesity, morbid, BMI 40.0-49.9 (HCC) Morbid obesity SVT (supraventricular tachycardia) ([facility]) Other specified cardiac dysrhythmias Chronic fatigue Other malaise and fatigue Vitamin D deficiency Unspecified vitamin D deficiency documented in this encounter [facility] note* Diagnosis Degeneration of intervertebral disc of cervical region with osteophyte of cervical vertebra- Primary documented in this encounter [facility] Discharge instructions No data available for this section [facility] [place] Reason for referral (narrative)* Outpatient Procedure (Routine) - Authorized Specialty Diagnoses / Procedures Referred By Contac t Referred To Contact [facility] Diagnoses Dizziness Palpitations Obesity, morbid, BMI 40.0-49.9 (HCC) Procedures ECG COMPLETE ECG ROUTINE ECG W/LEAST 12 LDS W/I&R Janell Sy MD [address] [place] [address] [facility] [place] [address] Referral ID Status Reason Start Date Expiration Date Visits Requested Visits Authorized [id number] Authorized Auto-Generat ed Referral 08/24/2022 08/24/2023 1 1 [facility] Summary Purpose Family History No Family History [...] By Contac t Referred To Contact [facility] Diagnoses Degeneration of intervertebral disc of cervical region with osteophyte of cervical vertebra Procedures CONSULT TO [facility] OFFICE/OUTPATIENT [facility] 60-74 MINUTES Glenroy Syed, ENGAGEMENT QUALITY CONSULTANT.SUPERVISOR MALT[employer] [address] [place] [address] Referral ID Status Reason Start Date Expiration Date Visits Requested Visits Authorized [id number] Authorized PCP Requested Referral 10/15/2022 10/15/2023 1 1 Specialty Diagnoses / Procedures Referred By Contac t Referred To Contact Ophthalmology Diagnoses Ocular migraine Procedures CONSULT TO OPHTHALMOLOGY OFFICE/OUTPATIENT [facility] 60-74 MINUTES Len Shea, ENGAGEMENT QUALITY CONSULTANT.SUPERVISOR MALTED MILK [address] [facility] [id number] [place] [address] Josefina Grimes MD [address] [place] [address] Referral ID Status Reason Start Date Expiration Date Visits Requested Visits Authorized [id number] Authorized PCP Requested Referral 08/20/2022 08/20/2023 1 1 Specialty Diagnoses / Procedures Referred By Contac t Referred To Contact Cardiology Diagnoses Dizziness Palpitations Procedures CONSULT TO CARDIOLOGY OFFICE/OUTPATIENT [facility] 60-74 MINUTES Glenroy Syed, ENGAGEMENT QUALITY CONSULTANT.SUPERVISOR MALTED MILK [address] [place] [phone] Referral ID Status Reason Start Date Expiration Date Visits Requested Visits Authorized [id number] Authorized PCP Requested Referral 2 07/07/2023 1 1 Specialty Diagnoses / Procedures Referred By Contac t Referred To Contact MR IMAGING Diagnoses Dizziness Vision changes Procedures MRI BRAIN WO/W IVCON MRI BRAIN BRAIN STEM W/O W/CONTRAST MATERIAL Glenroy Syed, ENGAGEMENT QUALITY CONSULTANT.SUPERVISOR [employer] [id number] [place] [id number] [facility] Referral ID Status Reason Start Date Expiration Date Visits Requested Visits Authorized [id number] Authorized Auto-Generat ed Referral 2 08/21/2022 1 1 Specialty Diagnoses / Procedures Referred By Contac t Referred To Contact Ophthalmology Diagnoses Vision changes Procedures CONSULT TO OPHTHALMOLOGY OFFICE/OUTPATIENT [facility] 60-74 MINUTES Glenroy Syed, ENGAGEMENT QUALITY CONSULTANT.SUPERVISOR MALTED MILK [address] [place] [address] Josefina Grimes MD [address] [place] [address] Referral ID Status Reason Start Date Expiration Date Visits Requested Visits Authorized [id number] Authorized PCP Requested Referral 2 07/07/2023 1 1 Specialty Diagnoses / Procedures Referred By Contac t Referred To Contact [facility] Diagnoses Palpitations Procedures ECHO ECHO TTHRC R-T 2D W/WOM-MODE COMPL SPEC&COLR D Glenroy Syed, ENGAGEMENT QUALITY CONSULTANT.SUPERVISOR MALTED MILK [id number] [place] [phone] [facility] [place] [place] [address] Referral ID Status Reason Start Date Expiration Date Visits Requested Visits Authorized [id number] Authorized Auto-Generat ed Referral 2 07/07/2023 1 1 Additional Source Comments INFORMATION SOURCE (unrecogn ized section and content) DATE CREATED AUTHOR 11/24/2021 [facility] DATE CREATED AUTHOR AUTHOR'S ORGANIZ ATION 07/20/2022 [facility] DATE CREATED AUTHOR AUTHOR'S ORGANIZ ATION 09/06/2022 [facility] DATE CREATED AUTHOR AUTHOR'S ORGANIZ ATION 10/16/2022 [facility] DATE CREATED AUTHOR AUTHOR'S ORGANIZ ATION 10/26/2023 [facility] DATE CREATED AUTHOR AUTHOR'S ORGANIZ ATION 12/04/2023 [facility] DATE CREATED AUTHOR AUTHOR'S ORGANIZ ATION 12/24/2023 [facility] Center Source Comments (unrecognize d section and content) In the event this informatio n is protected by the Federal Confidentiality of Alcohol and Drug Abuse Patient Records regulations: The Federal rules restrict any use of the information to criminally investigate or prosecute any alcohol or drug abuse patient.[facility] the event this information is protected by the Federal Confidentiality of Alcohol and Drug Abuse Patient Records regulations: The Federal rules restrict any use of the information to criminally investigate or prosecute any alcohol or drug abuse patient.[facility] the event this information is protected by the Federal Confidentiality of Alcohol and Drug Abuse Patient Records regulations: The Federal rules restrict any use of the information to criminally investigate or prosecute any alcohol or drug abuse patient.[facility] the event this information is protected by the Federal Confidentiality of Alcohol and Drug Abuse Patient Records regulations: The Federal rules restrict any use of the information to criminally investigate or prosecute any alcohol or drug abuse patient.[facility] the event this information is protected by the Federal Confidentiality of Alcohol and Drug Abuse Patient Records regulations: The Federal rules restrict any use of the information to criminally investigate or prosecute any alcohol or drug abuse patient.[facility] Center[facility] the event this information is protected by the Federal Confidentiality of Alcohol and Drug Abuse Patient Records regulations: The Federal rules restrict any use of the information to criminally investigate or prosecute any alcohol or drug abuse patient.[facility] CenterIn the event this information is protected by the Federal Confidentiality of Alcohol and Drug Abuse Patient Records regulations: The Federal rules restrict any use of the information to criminally investigate or prosecute any alcohol or drug abuse patient.[facility] CenterIn the event this information is protected by the Federal Confidentiality of Alcohol and Drug Abuse Patient Records regulations: The Federal rules restrict any use of the information to criminally investigate or prosecute any alcohol or drug abuse patient.[facility] CenterIn the event this information is protected by the Federal Confidentiality of Alcohol and Drug Abuse Patient Records regulations: The Federal rules restrict any use of the information to criminally investigate or prosecute any alcohol or drug abuse patient.[facility] CenterIn the event this information is protected by the Federal Confidentiality of Alcohol and Drug Abuse Patient Records regulations: The Federal rules restrict any use of the information to criminally investigate or prosecute any alcohol or drug abuse patient.[facility] Reason for Visit (unrecogniz ed section and [...] NEW RS PT VESTIBULAR DIZZY Glenroy Syed, ENGAGEMENT QUALITY CONSULTANT.SUPERVISOR [employer] [id number] [place] [id number] SeeCarmen vazquez, PT [address] [place] [address] Referral ID Status Reason Start Date Expiration Date Visits Re quested Visits Authorized [id number] Closed 08/08/2021 08/07/2022 30 30 Reason Comments Physical Therapy Specialty Diagnoses / Procedures Referred By Contac t Referred To Contact PHYSICAL THERAPY Diagnoses Dizziness Procedures Physical Therapy Glenroy Syed, ENGAGEMENT QUALITY CONSULTANT.SUPERVISOR [employer] [id number] [place] [id number] Pt [facility] [address] [place] [address] Referral ID Status Reason Start Date Expiration Date V isits Requested Visits Authorized [id number] Pending Review 08/12/2022 11/10/2022 1 1 Reason Comments Establish Care Palpitations Dizziness Specialty Diagnoses / Procedures Referred By Contac t Referred To Contact Cardiology Diagnoses Dizziness Palpitations Procedures CONSULT TO CARDIOLOGY OFFICE/OUTPATIENT [facility] MDM 60-74 MINUTES Glenroy Syed, ENGAGEMENT QUALITY CONSULTANT.SUPERVISOR [employer] [id number] [place] [id number] Referral ID Status Reason Start Date Expiration Date V isits Requested Visits Authorized [id number] Closed PCP Requested Referral 07/07/2022 07/07/2023 1 1 Reason Comments Radiology MRI Care Teams (unrecognized sec tion and content) Compensation Administrator Relationship Specialty Start Date End Date Mert Lama MD [address] [place] [address] Referring Family Medicine 06/10/22 Compensation Administrator Relationship Specialty Start Date End Date Mert Lama MD [address] [place] [address] Referring Family [facility] 06/10/22 Compensation Administrator Relationship Specialty Start Date End Date Mert Lama MD [address] [place] [address] Referring Family [facility] 06/10/22 Compensation Administrator Relationship Specialty Start Date End Date Mert Lama MD [address] [place] [address] Referring Family Medicine 06/10/22 Compensation Administrator Relationship Specialty Start Date End Date Mert Lama MD [address] [address] Referring [facility] 06/10/22 Compensation Administrator Relationship Specialty Start Date End Date Mert Lama MD [address] [address] Referring [facility] 06/10/22 Compensation Administrator Relationship Specialty Start Date End Date Mert Lama MD [address] [place] [address] Referring [facility] 06/10/22 Compensation Administrator Relationship Specialty Start Date End Date Mert Lama MD [address] [place] [address] Referring [facility] 06/10/22 FOR RECORDS PERTAINING TO PATIENTS WHO [...] BE BASED ON THE PRIMARY CLINICAL RECORDS. [facility] [employer] provides no warranty or guarantee of the accuracy or completeness of information in this document.
--- NOTE | 2023-12-30 06:32 | PC.NURSE ---
Pt reports multiple weeks of sciatica with MRI done and multiple medications tried including norco, steroid pack, Flexeril. Pt unable to get relief from pain with listed meds at home. Pt was dropped off by daughter this morning. Pt has limited ROM in BLE due to pain, strength in tact. Pt denies loss of control of bowel or bladder.
--- NOTE | 2023-12-30 07:17 | ED.BACK1 ---
HPI HPI - Back Pain/Injury General Chief Complaint: Back Pain/Injury Stated Complaint: back pain Time Seen by Provider: 12/30/23 06:35 Source: patient Mode of arrival: walk-in Limitations: no limitations History of Present Illness HPI Narrative: 43-year-old female presents for lower back pain. She is describing pain and burning in her bilateral lower back. She has been having some issues ongoing but then a few weeks ago it got much worse. In the past week she has had MRI of her entire spine which showed mild disc desiccation but no herniations or bulging. She seen her family doctor for this issue. She believes she may need to see a back specialist no numbness or weakness in her back. Related Data Home Medications ?Medication ?Instructions ?Recorded ?Confirmed hydrocodone 5 mg-acetaminophen 325 1 tab PO DAILY PRN pain 12/30/23 12/30/23 mg tablet meloxicam 15 mg tablet 15 mg PO DAILY 12/30/23 12/30/23 methocarbamol 750 mg tablet 750 mg PO Q6H PRN pain 12/30/23 12/30/23 metoprolol tartrate 50 mg tablet 50 mg PO BID 12/30/23 12/30/23 Previous Rx's ?Medication ?Instructions ?Recorded cyclobenzaprine 10 mg tablet 10 mg PO TID PRN muscle spasm #20 12/30/23 tabs oxycodone-acetaminophen 5 mg-325 1 tab PO Q6H PRN pain 5 days #20 12/30/23 mg tablet (Percocet) tabs prednisone 10 mg tablet See Rx Instructions .Route 12/30/23 .COMPLEX #30 tabs Allergies Allergy/AdvReac Type Severity Reaction Status Date / Time No Known Drug Allergies Allergy Verified 12/30/23 06:30 Opioid HPI Opioid Management Most Recent Opioid Data: Last Pain Scale 9 12/30/23 07:39 Last MAR Pain Assessment 12/30/23 07:28 Review of Systems ROS Narrative A ten point review of systems is negative except as noted above. Exam Narrative Exam Narrative: Nurses note and vital signs reviewed and patient is not hypoxic. General: The patient appears uncomfortable and in no apparent distress. Skin: Warm, dry, no pallor noted. There is no rash noted. Head: Normocephalic, atraumatic Eye: Normal conjunctiva, no drainage Ears, Nose, Mouth, and Throat: oral mucosa is moist. Nares patent. Cardiovascular: Regular Rate and Rhythm Respiratory: Patient is in no distress, no accessory muscle use, lungs are clear to auscultation, no wheezing, rales or rhonchi Back: non-tender, no bruise or rash GI: Soft and nontender Musculoskeletal: The patient has no evidence of calf tenderness, no pitting edema, symmetrical pulses noted bilaterally Neurological: A&O, normal speech, motor strength intact in her lower extremities Psychiatric: Cooperative Constitutional Vital Signs, click to edit/add: Last Vital Signs Temp 98.3 F 12/30/23 06:28 Pulse 80 12/30/23 06:28 Resp 18 12/30/23 06:28 BP 132/91 12/30/23 06:28 Pulse Ox 97 12/30/23 06:28 O2 Del Method Room Air 12/30/23 06:28 Course Vital Signs Vital signs: Vital Signs Temperature 98.3 F 12/30/23 06:28 Pulse Rate 80 12/30/23 06:28 Respiratory Rate 18 12/30/23 06:28 Blood Pressure 132/91 12/30/23 06:28 Pulse Oximetry 97 12/30/23 06:28 Oxygen Delivery Method Room Air 12/30/23 06:28 Temperature 98.3 F 12/30/23 06:28 Pulse Rate 80 12/30/23 06:28 Respiratory Rate 18 12/30/23 06:28 Blood Pressure 132/91 12/30/23 06:28 Pulse Oximetry 97 12/30/23 06:28 Oxygen Delivery Method Room Air 12/30/23 06:28 MDM - Back Pain/Injury MDM Narrative Medical decision making narrative: Recent MRI results were reviewed with the patient. She was given IV morphine and Norflex here and is feeling improved. She is discharged home on Percocet and Flexeril and prednisone. She will discontinue the meloxicam while on the prednisone and will take either the methocarbamol or Flexeril but not both. Treatment diagnosis and follow-up were discussed with the patient Differential Diagnosis Differential diagnosis: Likely lumbar radiculopathy, strain of lumbar region and other (Muscle strain, degenerative disc disease) Discharge Plan Discharge Stand Alone Forms: Portal Instructions Chief Complaint: Back Pain/Injury Clinical Impression: Low back pain Patient Disposition: Home, Self-Care Time of Disposition Decision: 07:51 Condition: Good Mode of Transportation: Private Vehicle Prescriptions / Home Meds: New cyclobenzaprine 10 mg tablet 10 mg PO TID PRN (Reason: muscle spasm) Qty: 20 0RF oxycodone-acetaminophen [Percocet] 5-325 mg tablet 1 tab PO Q6H PRN (Reason: pain) 5 Days Qty: 20 0RF prednisone 10 mg tablet See Rx Instructions .ROUTE .COMPLEX Qty: 30 0RF Rx Instructions: 4 by mouth daily for three days then 3 by mouth daily for three days then 2 by mouth daily for three days then 1 by mouth daily for three days No Action meloxicam 15 mg tablet 15 mg PO DAILY methocarbamol 750 mg tablet 750 mg PO Q6H PRN (Reason: pain) metoprolol tartrate 50 mg tablet 50 mg PO BID hydrocodone-acetaminophen 5-325 mg tablet 1 tab PO DAILY PRN (Reason: pain) Print Language: Colombian Instructions: Acute Low Back Pain (ED) Additional Instructions: Take either of the methocarbamol or Flexeril, but not both Discontinue meloxicam while on prednisone Referrals: Adarsh Quiroga MD [Physician] - 1 week ([phone]) LEON WILSON [Primary Care Provider] - 1 week
[2023-12-30] MEDS: ORPHENADRINE 60 MG/ 2 ML VIAL IV (07:28)
[2023-12-30] MEDS: MORPHINE SULFATE 4 MG/ML VIAL IV (07:28)
[2023-12-30 08:00] VITALS: BP 102/70; PULSE 74; O2SAT 100
== END 2023-12-30 08:06 | disposition home or self-care (01) ==
PROVIDERS: Emergency Provider Emergency Medicine; PCP Family Medicine
DX: M54.50 Low back pain, unspecified (principal)
CPT/HCPCS: 96374; 96375; 99284

== ENCOUNTER 2024-01-24 11:48 | Outpatient (OUT) | payer BC, SELFPAY ==
--- NOTE | 2024-01-24 | CONS_ITS ---
CONSULTATION DATE: 01/24/2024 TO: LITTLE StewartP-C CHIEF COMPLAINT: Includes severe bilateral lower back pain. HISTORY OF PRESENT ILLNESS: Review of systems, past medical/surgical history were obtained and documented on the health questionnaire and is available upon request. She is a 43-year-old female, reports having pain for the last 20 years. Hip pain increased gradually to its present state, which has altered her quality of life, level of functioning and at times her sleep pattern. She rates the pain 8/10 in severity and describes it as sharp pain, aching in character, increased with activity such as standing, walking and performing transitioning maneuvers. She feels most comfortable in the semi-recumbent position. She denies any change in bowel and bladder habits or new sensorimotor changes in the lower extremities. MEDICATIONS: She has been using ibuprofen [id number]-jjoxtgw, 200-400 mg daily p.r.n., with only marginal relief. She has, in the past, undergone physical therapy, including aquatic therapy, which included traction. She has been trialed on an oral steroid pack, as well as Mobic, all of which led to marginal reduction in pain symptoms. She also reports having minimal relief with the use of hydrocodone. It should be reported that she has significant relief with the use of Zanaflex. EXAM: Notable for patient having no clinical radiculopathy or myelopathy involving the lower extremities. Patient has severe pain with lumbar facet joint loading maneuvers occurring bilaterally from L4 through S1, and associated myofascial spasm with myalgia of the erector spinae muscle, also occurring bilaterally. IMPRESSION: Patient has chronic pain secondary to lumbosacral spondylosis with facet joint loading pain clinically from L4 through S1 with myofascial spasm and myofascial dysfunction involving the erector spinae muscle. RECOMMENDATIONS: I recommend a trigger point injection. She reports reduction in pain and symptoms after receiving the injections. I have placed her on Zanaflex 4 mg pills, 1-2 up to b.i.d. She should return to aquatic therapy and proceed with a diagnostic bilateral L4-5 and L5-S1 medial branch block. As part of providing excellent, safe, comprehensive care, the following was completed at our patient's visit: 1. A medication reconciliation and review to ensure accurate knowledge of current/active medications, including asking our patients to inform us about any ocqy-jht-qqfnhhf medications or herbal remedies/nutritional supplements/alternative remedies. 2. A review to specifically ensure our patients have had annual screening for: elevated body mass index (BMI, see intake chart for exact total), tobacco use, screening for depression, and screening for unhealthy alcohol use. When screening is concerning, patients are provided with education and the specific recommendation to discuss the concerning health issue and treatment options with their primary care provider. ROSALINO
--- NOTE | 2024-01-24 | CONS_ITS ---
PROCEDURE DATE: 01/24/2024 PROCEDURE: Trigger point injection bilateral erector spinae muscle. PREOPERATIVE DIAGNOSIS: Pain secondary to erector spinae spasm and myalgia. POSTOPERATIVE DIAGNOSIS: Pain secondary to erector spinae spasm and myalgia. SOLUTION USED FOR INJECTION: 2 mL of 2% lidocaine, 2 mL of 0.25% Marcaine and 10 mg of Kenalog, total of 5 mL injection into each area. IMMEDIATE COMPLICATIONS: None. PROCEDURE: After informed consent was obtained from the patient, placed in the prone position. Skin overlying the area was prepped with alcohol. A 25 gauge, 1 ?? needle was inserted into the left erector spinae muscle at about the L4 level. Needle was advanced until there was a twitch response and injected in divided doses, 5 mL of solution on the left side. Repeated in a similar fashion on the contralateral side. Post procedure, she reports reduction in pain symptoms. ROSALINO
== END 2024-01-24 11:49 | disposition home or self-care (01) ==
LOC: PM 11:48
PROVIDERS: PCP Family Medicine; Visit Provider Anesthesiology Pain Medicine
DX: M54.50 Low back pain, unspecified (principal); M47.816 Spondylosis without myelopathy or radiculopathy, lumbar region; M62.838 Other muscle spasm; G89.4 Chronic pain syndrome
CPT/HCPCS: 20552; J0665; J3301

== ENCOUNTER 2024-02-21 07:48 | Day surgery (SDC) | payer BC, SELFPAY ==
--- OUTSIDE RECORDS SUMMARY | 2024-02-21 07:55 | XMS_ITS | CCD ---
Author Organization [facility] Care Team Providers Care Tarp Repairer Name Role Phone MERT LAMA Referring Unavailable PAMELLA BRENNAN Attending Unavailable MIKA, PAMELLA Ang Surgeon Unavailable PAMELLA BRENNAN Admitting Unavailable [place] Procedure Practitioner Unavailab MERT Caban Primary Care [...] Attending Unavailable MERT LAMA Primary Care Physician [phone] Mert Lama MD Unavailable DANIEL, DR MERT [...] Unavailable DANIEL, DR MERT Forrest Consulting Unavailable LAMA, DR MERT Forrest Attending Unavailable ELENA GUAN [...] Unavailable JENNIFER, WM Admitting Unavailable LAMA, DR MRET Forrest Primary Care Unavailable JENNIFER, WM Consulting Unavailable JENNIFER, WM Attending Unavailable JENNIFER, WM Attending Unavailable JENNIFER, WM Consulting Unavailable LAMA, DR MERT Forrest Primary Care Unavailable JENNIFER, WM Admitting Unavailable MEEANU Attending Unavailable MEE, ANU Admitting Unavailable LAMA, [...] Referring Unavailable POULTON, GLENROY Referring Unavailable SYJANELL Bangura Attending Unavailable MAURI CHUN Attending Unavailable POULTON, GLENROY Referring Unavailable SUDHAIRMA RACHEL Attending Unavailable SUDHAIRMA RACHEL Attending Unavailable Cristiane Gutiérrez Attending Unavailable MANUEL, JONNY Referring Unavailable MANUEL, JONNY Referring Unavailable MANUEL, JONNY Referring Unavailable SUEVISHAL Referring Unavailable MANUEL, JONNY Referring Unavailable SUE, VISHAL Referring Unavailable MANUEL, JONNY Referring Unavailable MANUEL, JONNY Referring Unavailable Medications Current Medications Medication Drug [...] tablet (1 source) Atypical Antipsychotic Start: 10-10-19 21 take 1 tablet by mouth at bedtime [...] Comment on above: Take 1 capsule by [facility] once daily. Problems Active Problems Problem Classification Problem Date Documented Date Episodic/Chronic Blindness and vision defects (3 sources) Eye / vision finding; Translations: [Unspecified visual disturbance] Onset: 09-09-2022 Episodic Cardiac dysrhythmias (8 sources) Supraventricular tachycardia; Translations: [Supraventricular tachycardia] Onset: 11-14-2021 Chronic Cardiac dysrhythmias (14 sources) Sinus tachycardia; Translations: [Palpitations] Onset: 07-07-2022 11-26-2021 Episodic Conditions associated with dizziness or vertigo (13 sources) Dizziness; Translations: [Dizziness and giddiness] Onset: 03-22-2022 Episodic Deficiency and other anemia (1 source) Anemia [...] 04-21-2022 Chronic Other aftercare (1 source) Other halfway (current) drug therapy; Translations: [OTH ALF CURRENT [...] of urinary calculi] Onset: 01-06-2022 11-04-2020 Episodic Deficiency and other anemia (4 sources) [...] Test Name Value Interpretation Reference Range Facility ED Note-Physicianon 01-03-20 ED Note-Physician [id number]#1.00 TIFF [facility] RAD - MRI Reporton RAD - MRI Report [id number]#1.0 0TIFF [facility] RAD - MRI Report [id number]#1.0 0TIFF [facility] RAD - MRI Report [id number]#1.00 TIFF [facility] RAD - MRI Report [id number]#1.00 TIFF [facility] RAD - MRI Report [id number]#1.0 0TIFF [facility] RAD - MRI Report [id number]#1.00 TIFF [facility] Physician Orderon 12-22-2023 Physician Order [id number]#1.00 TIFF [facility] Provider Letteron 12-21-2023 Provider Letter December 21, 2023 [place] [address] : 1980 To Whom It May Concern, Please excuse above patient from work. Date of Illness: From: 12/19/2023 To: 12/21/2023 May Return to Work On: 12/22/2023 Sincerely, HARPREET Stewart [address] [address] Normal [facility] Lab Reportson 12-20-2023 Lab Reports [id number]#1.00 TIFF Normal [facility] Physician Orderon 12-20-2023 Physician Order [id number]#1.00 TIFF Normal [facility] RAD - MISCon 12-20-2023 RAD - MISC [id number]#1.00 TIFF Normal [facility] Ambulatory Visit Summaryon 0 12-19-2023 Ambulatory Visit [...] sciatica BMI 40.0-44.9, adult Non-smoker Pickup at [facility]/pharmacy #[id number] New meloxicam (meloxicam 15 mg Tab) 1 Tablets By Mouth Every day Low back pain with sciatica BMI 40.0-44.9, adult Non-smoker Pickup at [facility]/pharmacy #6177 New methylPREDNISolone (Medrol 4 mg Tab) 1 Packets By Mouth As Directed Low back pain with sciatica BMI 40.0-44.9, adult Non-smoker Duration: 6 Days as directed on package labeling Pickup at [facility]/pharmacy #6177 Unchanged metoprolol (Metoprolol tartrate 50 mg Tab) 1 Tablets By Mouth 2 times a day [id number] [address], [place] [id number] [phone] Medications and Immunizations Administered Given ketorolac 30 [...] for choosing us for your care. 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 Had x-ray done at [facility] for spine over a year or [...] Bedtime for spasm, 20 cap(s), Refill(s) 0, [facility]/pharmacy #6177, 165.1, cm, 12/19/23 13:17:00 EDT, Height/Length Dosing, 114.6, kg, 12/19/23 13:17:00 EDT, Weight Dosing ketorolac, 30 mg = 1 mL, Injection, IntraMuscular, Once, Stop date 12/19/23 13:35:00 EDT, Routine, Start date 12/19/23 13:35:00 EDT, 12/19/23 13:35:00 EDT meloxicam, 15 mg = 1 tab(s), Oral, Daily, # 30 tab(s), Refills(s) 0, Pharmacy: [facility]/pharmacy #6177, 165.1, cm, 12/19/23 13:17:00 EDT, Height/Length Dosing, 114.6, kg, 12/19/23 13:17:00 EDT, Weight Dosing methylPREDNISolone, = 1 packet(s), Oral, As Directed, as directed on package labeling, X 6 day(s), # 21 tab(s), Refills(s) 0, Pharmacy: [facility]/pharmacy #6177, 165.1, cm, 12/19/23 13:17:00 EDT, Height/Length Dosing, 114.6, kg, 12/19/23 13:17:00 EDT, Weight Dosing 2. BMI 40.0-44.9, adult (Z68.41: Body mass index [BMI] 40.0-44.9, adult) BMI education complete Ordered: cyclobenzaprine, 15 mg, 1 cap(s), Oral, Bedtime for spasm, 20 cap(s), Refill(s) 0, [facility]/pharmacy #6177, 165.1, cm, 12/19/23 13:17:00 EDT, Height/Length Dosing, 114.6, kg, 12/19/23 13:17:00 EDT, Weight Dosing ketorolac, 30 mg = 1 mL, Injection, IntraMuscular, Once, Stop date 12/19/23 13:35:00 EDT, Routine, Start date 12/19/23 13:35:00 EDT, 12/19/23 13:35:00 EDT meloxicam, 15 mg = 1 tab(s), Oral, Daily, # 30 tab(s), Refills(s) 0, Pharmacy: [facility]/pharmacy #6177, 165.1, cm, 12/19/23 13:17:00 EDT, Height/Length Dosing, 114.6, kg, 12/19/23 13:17:00 EDT, Weight Dosing methylPREDNISolone, = 1 packet(s), Oral, As Directed, as directed on package labeling, X 6 day(s), # 21 tab(s), Refills(s) 0, [facility], 165.1, cm, 12/19/23 13:17:00 EDT, Height/Length Dosing, 114.6, kg, 12/19/23 13:17:00 EDT, Weight Dosing 3. Non-smoker (Z78.9: Other specified health status) continue not smoking Ordered: cyclobenzaprine, 15 mg, 1 cap(s), Oral, Bedtime for spasm, 20 cap(s), Refill(s) 0, [facility], 165.1, cm, 12/19/23 13:17:00 EDT, Height/Length Dosing, 114.6, kg, 12/19/23 13:17:00 EDT, Weight Dosing ketorolac, 30 mg = 1 mL, Injection, IntraMuscular, Once, Stop date 12/19/23 13:35:00 EDT, Routine, Start date 12/19/23 13:35:00 EDT, 12/19/23 13:35:00 EDT meloxicam, 15 mg = 1 tab(s), Oral, Daily, # 30 tab(s), Refills(s) 0, [facility], 165.1, cm, 12/19/23 13:17:00 EDT, Height/Length Dosing, 114.6, kg, 12/19/23 13:17:00 EDT, Weight Dosing methylPREDNISolone, = 1 packet(s), Oral, As Directed, as directed on package labeling, X 6 day(s), # 21 tab(s), Refills(s) 0, Pharmacy: [facility]/pharmacy #6177, 165.1, cm, 12/19/23 13:17:00 EDT, Height/Length Dosing, 114.6, kg, 12/19/23 13:17:00 EDT, Weight Dosing Follow-up No qualifying data available Problem List/Past Medical History Ongoing Anemia Anxiety (more content not included)... [facility] Comment on above: Result Comment: Elec tronically Signed By: Cristiane Brasher\Date and Time Signed: 12/19/23 13:59 EDT Physician Orderon 12-19-2023 Physician Order [id number]#1.00 TIFF [facility] Consultation Noteon 02-15-20 Consultation Note [id number]#1.0 0CD:127 [facility] Consultation Noteon 02-05-20 Consultation Note [id number]#1.0 0CD:127 [facility] Comment on above: Other Comment: INCOM PLETE FAX.NDW Formson 02-02-2023 Forms [id number]#1.0 0CD:127 [facility] Consultation Noteon 01-29-20 Consultation Note [id number]#1.00 CD:127 [facility] Cardiovascular Reporton 01-06 Cardiovascular Report [id number]#1.0 0CD:127 [facility] MRI BRAIN WO/W IVCONon 10-14 MRI [...] cord. No mass or pathologic intradural enhancement. Therapeutic Riding Instructor: NARCISO Transcribe Date/Time: Oct 14 2022 8:43P Dictated by : UNIQUE ANDERSON MD This examination was interpreted and the report reviewed and electronically signed by: UNIQUE ANDERSON MD on Oct 14 2022 8:51PM EST [id number] Normal [facility] MRI CERVICAL SPINE WO/W IVCO Non 10-14-2022 MRI CERVICAL SPINE WO/W IVCON * * *Final Report* * * DATE OF EXAM: Oct 14 2022 5:21PM Q 0298 - MRI CERVICAL SPINE WO/W IVCON [...] cord. No mass or pathologic intradural enhancement. Therapeutic R[facility] Transcribe Date/Time: Oct 14 2022 8:43P Dictated by : UNIQUE ANDERSON MD This examination was interpreted and the report reviewed and electronically signed by: UNIQUE ANDERSON MD on Oct 14 2022 8:51PM EST [id number] Normal [facility] CBC AUTO DIFFon 09-02-2022 BASO # 0.1 103/ul Normal 0.0-0.1 [facility] Comment on above: Performed By: #### C MP, TSH, HSTROPN #### [facility] [address] [place] [address] Dr. Christos Fallon Basophils/100 WBC (Bld) 0.5 % Normal 0.2-2.0 [facility] Comment on above: Performed By: #### C MP, TSH, HSTROPN #### [facility] [address] [address] [address] Christos Fallon EO # 0.2 103/ul Normal 0.0-0.7 [facility] Comment on above: Performed By: #### C MP, TSH, HSTROPN #### [facility] [address] [place] [address] Dr. Christos Fallon Eosinophils/100 WBC (Bld) 2.3 % Normal 0.9-7.0 [facility] Comment on above: Performed By: #### C MP, TSH, HSTROPN #### [facility] [address] [place] [address] Dr. Christos Fallon Erythrocyte distribution width (RBC) [Ratio] 13.0 % Normal 11.0-15.0 [facility] Comment on above: Performed By: #### C MP, TSH, HSTROPN #### [facility] [address] [place] [address] Dr. Christos Fallon Hematocrit (Bld) [Volume fraction] 43.0 % Normal 36.0-48.0 [facility] Comment on above: Performed By: #### C MP, TSH, HSTROPN #### [facility] [address] [place] [address] Dr. Christos Fallon Hemoglobin (Bld) [Mass/Vol] 13.9 g/dL Normal 12.0-16.0 [facility] Comment on above: Performed By: #### C MP, TSH, HSTROPN #### [facility] [address] [place] [address] Dr. Christos Fallon IG # 0.03 10e3/ul Normal 0.00-0.03 [facility] Comment on above: Performed By: #### C MP, TSH, HSTROPN #### [facility] [address] [place] [address] Dr. Christos Fallon IG % 0.3 % Normal 0.0-0.5 [facility] Comment on above: Performed By: #### C MP, TSH, HSTROPN #### [facility] [address] [place] [address] Dr. Christos Fallon LYMPH # 2.8 103/ul Normal 1.2-3.8 [facility] Comment on above: Performed By: #### C MP, TSH, HSTROPN #### [facility] [address] [place] [address] Dr. Christos Fallon Lymphocytes/100 WBC (Bld) 29.6 % Normal 20.5-60.0 [facility] Comment on above: Performed By: #### C MP, TSH, HSTROPN #### [facility] [address] [place] [address] Dr. Christos Fallon MANUAL DIFF REQ NO Normal [facility] Comment on above: Performed By: #### C MP, TSH, HSTROPN #### [facility] [address] [place] [address] Dr. Christos Fallon MCH (RBC) [Entitic mass] 34.8 pg Critically high 26.7-34.0 [facility] Comment on above: Performed By: #### C MP, TSH, HSTROPN #### [facility] [address] [place] [address] Dr. Christos Fallon MCHC (RBC) [Mass/Vol] 32.3 g/dL Normal 29.9-35.2 [facility] Comment on above: Performed By: #### C MP, TSH, HSTROPN #### [facility] [address] [place] [address] Dr. Christos Fallon MCV (RBC) [Entitic vol] 107.5 fL Critically high 81.0-99.0 [facility] Comment on above: Performed By: #### C MP, TSH, HSTROPN #### [facility] [address] [place] [address] Dr. Christos Fallon MONO # 0.7 103/ul Normal 0.3-0.8 [facility] Comment on above: Performed By: #### C MP, TSH, HSTROPN #### [facility] [address] [place] [address] Dr. Christos Fallon Monocytes/100 WBC (Bld) 7.7 % Normal 1.7-12.0 [facility] Comment on above: Performed By: #### C MP, TSH, HSTROPN #### [facility] [address] [place] [address] Dr. Christos Fallon NEUT # 5.7 103/ul Normal 1.4-6.5 [facility] Comment on above: Performed By: #### C MP, TSH, HSTROPN #### [facility] [address] [place] [address] Dr. Christos Fallon Neutrophils/100 WBC (Bld) 59.6 % Normal 43.0-75.0 [facility] Comment on above: Performed By: #### C MP, TSH, HSTROPN #### [facility] [address] [address] [address] Christos Fallon Platelet mean volume (Bld) [Entitic vol] 9.9 fL Normal 9.5-13.5 [facility] Comment on above: Performed By: #### C MP, TSH, HSTROPN #### [facility] [address] [address] [address] Christos Fallon PLT 309 103/ul Normal 150-450 [facility] Comment on above: Performed By: #### C MP, TSH, HSTROPN #### [facility] [address] [place] [address] Dr. Christos Fallon RBC 4.00 106/ul Critically low 4.20-5.40 [facility] Comment on above: Performed By: #### C MP, TSH, HSTROPN #### [facility] [address] [place] [address] Dr. Christos Fallon WBC 9.6 103/ul Normal 4.0-11.0 [facility] Comment on above: Performed By: #### C MP, TSH, HSTROPN #### [facility] [address] [place] [address] Dr. Christos Fallon D-DIMERon 09-02-2022 D-DIMER 0.28 mg/L FEU Normal <=0.59 [facility] Comment on above: Performed By: #### C MP, TSH, HSTROPN #### [facility] [address] [place] [address] Dr. Christos Fallon D-DIMER COMMENTS SEE BELOW Normal [facility] Comment on above: Result Comment: Incr eases [...] By: #### C MP, TSH, HSTROPN #### [facility] [address] [place] [address] Dr. Christos Fallon PROF 14(COMP METB)on 023 Albumin [Mass/Vol] 3.8 g/dL Normal 3.4-5.0 [facility] Comment on above: Performed By: #### C MP, TSH, HSTROPN #### [facility] [address] [place] [address] Dr. Christos Fallon Albumin/Globulin [Mass ratio] 1.2 {ratio} Normal [facility] Comment on above: Performed By: #### C MP, TSH, HSTROPN #### [facility] [address] [place] [address] Dr. Christos Fallon ALP [Catalytic activity/Vol] 85 U/L Normal 46-116 [facility] Comment on above: Performed By: #### C MP, TSH, HSTROPN #### [facility] [address] [place] [address] Dr. Christos Fallon ALT [Catalytic activity/Vol] 39 U/L Normal 14-59 [facility] Comment on above: Performed By: #### C MP, TSH, HSTROPN #### [facility] [address] [place] [address] Dr. Christos Fallon Anion gap [Moles/Vol] 16.3 mmol/L Normal [facility] Comment on above: Performed By: #### C MP, TSH, HSTROPN #### [facility] [address] [place] [address] Dr. Christos Fallon AST [Catalytic activity/Vol] 19 U/L Normal 15-37 [facility] Comment on above: Performed By: #### C MP, TSH, HSTROPN #### [facility] [address] [place] [address] Dr. Christos Fallon Bilirubin [Mass/Vol] 0.4 mg/dL Normal 0.2-1.0 [facility] Comment on above: Performed By: #### C MP, TSH, HSTROPN #### [facility] [address] [address] [address] Christos Fallon Calcium [Mass/Vol] 9.2 mg/dL Normal 8.5-10.1 [facility] Comment on above: Performed By: #### C MP, TSH, HSTROPN #### [facility] [address] [address] [address] Christos Fallon Chloride [Moles/Vol] 101 mmol/L Normal 98-107 [facility] Comment on above: Performed By: #### C MP, TSH, HSTROPN #### [facility] [address] [place] [address] Dr. Christos Fallon CO2 [Moles/Vol] 24.9 mmol/L Normal 21.0-32.0 [facility] Comment on above: Performed By: #### C MP, TSH, HSTROPN #### [facility] [address] [place] [address] Dr. Christos Fallon Creatinine [Mass/Vol] 0.83 mg/dL Normal 0.55-1.02 [facility] Comment on above: Performed By: #### C MP, TSH, HSTROPN #### [facility] [address] [place] [address] Dr. Christos Fallon EGFR-AF AUSTRIAN >60 Normal >=60 [facility] Comment on above: Performed By: #### C MP, TSH, HSTROPN #### [facility] [address] [place] [address] Dr. Christos Fallon EGFR-NON AF AUSTRIAN >60 Normal >=60 [facility] Comment on above: Performed By: #### C MP, TSH, HSTROPN #### [facility] [address] [place] [address] Dr. Christos Fallon Globulin (S) [Mass/Vol] 3.2 g/dL Normal [facility] Comment on above: Performed By: #### C MP, TSH, HSTROPN #### [facility] [address] [place], [place] [id number] Dr. Christos Fallon Glucose [Mass/Vol] 142 mg/dL Critically high 74-106 [facility] Comment on above: Performed By: #### C MP, TSH, HSTROPN #### [facility] [address] [place] [address] Dr. Christos Fallon Potassium [Moles/Vol] 3.2 mmol/L Critically low 3.5-5.1 [facility] Comment on above: Performed By: #### C MP, TSH, HSTROPN #### [facility] [address] [place] [address] Dr. Christos Fallon Protein [Mass/Vol] 7.0 g/dL Normal 6.4-8.2 [facility] Comment on above: Performed By: #### C MP, TSH, HSTROPN #### [facility] [address] [place] [address] Dr. Christos Fallon Sodium [Moles/Vol] 139 mmol/L Normal 136-145 [facility] Comment on above: Performed By: #### C MP, TSH, HSTROPN #### [facility] [address] [place] [address] Dr. Christos Fallon Urea nitrogen [Mass/Vol] 10.0 mg/dL Normal 7.0-18.0 [facility] Comment on above: Performed By: #### C MP, TSH, HSTROPN #### [facility] [address] [place] [address] Dr. Christos Fallon Urea nitrogen/Creatinine [Mass ratio] 12.0 mg/mg Normal [facility] Comment on above: Performed By: #### C MP, TSH, HSTROPN #### [facility] [address] [place] [address] Dr. Christos Fallon PROTIMEon 09-02-2022 INR Coag (PPP) [Relative time] {INR} Normal [facility] Comment on above: Performed By: #### C MP, TSH, HSTROPN #### [facility] [address] [place] [address] Dr. Christos Fallon INR GUIDELINES SEE BELOW Normal [facility] Comment on above: Result Comment: GUALBERTO RED INR: 2.0 - 3.0 CONDITIONS NOT LISTED BELOW 2.5 - 3.5 FOR PROSTHETIC HEART VALVE REPLACEMENT 2.5 - 3.5 RECURRENT THROMBOSIS Performed By: #### C MP, TSH, HSTROPN #### [facility] [address] [place] [address] Dr. Christos Fallon PT Coag (PPP) [Time] 9.7 s Normal 9.0-11.6 [facility] Comment on above: Performed By: #### C MP, TSH, HSTROPN #### [facility] [address] [place] [address] Dr. Christos Fallon PTTon 09-02-2022 aPTT Coag (Bld) [Time] 25.9 s Normal 22.3-36.2 [facility] Comment on above: Performed By: #### C MP, TSH, HSTROPN #### [facility] [address] [place] [address] Dr. Christos Fallon TROPONIN, HIGH SENSITIVITYon 09-02-2022 HSTROP <4.0 Normal 4.0-51.3 [facility] Comment on above: Result Comment: CUT- OFF POINTS HAVE BEEN ESTABLISHED BASED ON THE FOURTH UNIVERSAL DEFINITIONS OF MYOCARDIAL INFARCTION. THE UPPER REFERENCE LIMIT (URL) OF TROPONIN, DEFINED THE 99TH PERCENTILE OF cTnI DISTRIBUTION IN A REFERENCE POPULATION, HAS BEEN CONFIRMED THE DECISION THRESHOLD FOR NM DIAGNOSIS. Performed By: #### C MP, TSH, HSTROPN #### [facility] [address] [place] [address] Dr. Christos Fallon TSHon 09-02-2022 TSH 0.813 uIU/mL Normal 0.358-3.740 [facility] Comment on above: Performed By: #### C MP, TSH, HSTROPN #### [facility] [address] [place] [address] Dr. Christos Fallon XR CHEST 1 Von [...] by: LEEANNE MON Date: 2022-09-02 15:09 [facility] CHRISTINAKAILA Emily ([id number]) 1980 F Date Time Provider Department 08/24/22 2:00 PM JANELL SY During your visit today, we recorded the following information about you: Pulse Blood pressure Weight Height 88/minute 112/73 112.9 kg 1.626 m Janell Sy MD 08/24/2022 2:17 PM Signed [facility] [place] SECTION OF REGIONAL CARDIOLOGY OUTPATIENT VISIT DATE [...] Cardiac work-up includes: Echocardiogram on 05/19/2020 at [facility] showed normal ejection fraction. No valvular [...] ECG COMPLETE 4. Obesity, morbid, BMI 40.0-49.9 ([facility]) E66.01 ECG COMPLETE 5. SVT (supraventricular tachycardia) ([facility]) I47.1 6. Chronic fatigue R53.82 7. Vitamin [...] apnea) Palpitatio (more content not included)... Normal [facility] ECG COMPLETEon 08-24-2022 ECG COMPLETE Ventricular Rate : 8 4 BPM Atrial Rate : 84 BPM P-R Interval : 166 ms QRS Duration : 92 ms Q-T Interval : 358 ms QTC Calculation(Bazett) : 423 ms Calculated P [place] : 60 degrees Calculated R [place] : 45 degrees Calculated T [place] : 45 degrees NORMAL SINUS RHYTHM INCREASED R/S RATIO IN V1, CONSIDER EARLY TRANSITION OR POSTERIOR INFARCT ABNORMAL ECG Confirmed by MEERA BOYD M.D. ([id number]) on 08/28/2022 3:03:10 PM NAME : KAILA VASQUEZ PID : [id number] : 1980 Gender : Female Race : ORD : [id number] Procedure Date : Aug 24 2022 13:56:02 [...] JANELL SY Acquired by : Jose browning [facility] CNTHERAPYon 08-12-2022 CNTHERAPY OT/PT/Speech Visit (PTAMCF) KAILA VASQUEZ ([id number]) 1980 F Date Time Provider Department 08/12/22 2:45 PM SEJAL CARMEN [facility] Date Time Provider Department Center 08/12/2022 2:45 PM [id number], KARA [facility] Reason for Visit: Physical Therapy [503] Primary [...] % (flush) 10 mL (BD POSIFLUSH) Normal [facility] CNTHERAPYon 08-05-2022 CNTHERAPY OT/PT/Speech Visit (PTAF) KAILA VASQUEZ ([id number]) 1980 F Date Time Provider Department 08/05/22 9:15 AM CARMEN JOHNSON [facility] Date Time Provider Department Center 08/05/2022 9:15 AM [id number], KARA [facility] [place] Reason for Visit: PT Eval [747] [...] % (flush) 10 mL (BD POSIFLUSH) Normal [facility] Covid-19 PCR (CVDTB)on 07-09 SARS-CoV-2 (COVID-19) RNA LEROY+probe Ql (Unsp spec) Not detected Normal NOT DETECTED [facility] Comment on above: Result Comment: When [...] for this test is supported by the [employer] Cole[employer] of Health and Human Service's declaration that [...] used). Performed By: #### C VDAGA #### [facility] [address] [place] [address] Dr. Christos Fallon 25(OH)D3 [facility] 2021 25-hydroxyvitamin D3 [Mass/Vol] 15.8 ng/mL Low 31.0-80.[address] [facility] Comment on above: Order Comment: Speci men Type: BLOOD SPECIMENOrdering Facility: [facility] Address: [address] [place] [address] Result Comment: Clas sification of 25 OH Vitamin D status: Deficiency/Insufficiency: < or = 30 ng/ml. Sufficiency/Optimal Levels: 31-80 ng/mL Toxicity: > 100 ng/mL. Test performed by chemiluminescent immunoassay. Performed By: #### 1 989-3 ####[facility] LABIA [id number] [place] [address] [place] [facility] ESEQUIEL BY IFA WITH REFLEXon ESEQUIEL PATTERN Nuclear fine speckled Normal [facility] Comment on above: Order Comment: Speci betty Type: BLOOD SPECIMENOrdering Facility: [facility] Address: [address] [place] [address] Performed By: #### 2 9374-6, 67945-2, 17281-1, 49471-1, 05699-4, ANAIFR, 24816-8, 42761-7, 77382-1, 54443-5 ####[facility] LABCLIA [id number] [address] [place] ESEQUIEL TITER 1:[address] [facility] Comment on above: Order Comment: Speci men Type: BLOOD SPECIMENOrdering Facility: [facility] Address: [address] [id number] Performed By: #### 2 9374-6, 23753-2, 77894-3, 08137-9, 72776-3, ANAIFR, 59254-4, 84194-1, 95901-1, 14493-5 ####[facility] LABCLIA [id number] [place] [address] [place] Nuclear Ab IF (S) [Titer] Positive Abnormal Negative [facility] Comment on above: Order Comment: Speci men Type: BLOOD SPECIMENOrdering Facility: [facility] Address: [address] [address] Result Comment: Anti -nuclear antibody test is used as an aid in diagnosis of systemic autoimmune diseases. Where positive and clinically warranted, follow-up using disease-specific testing is recommended. Low positive titers are not uncommon with advanced age, certain chronic infections, and malignancies among others. Test methodology: Indirect fluorescence immunoassay (IFA) using HEp-2 cells. Performed By: #### 2 9374-6, 63371-9, 43556-8, 44977-1, 47328-5, ANAIFR, 53286-3, 92512-7, 44314-2, 79003-3 ####[facility] LABCLIA [id number] [place] [address] [place] Basic metabolic 2000 panelon 07-07-2022 Anion gap [Moles/Vol] 13 mmol/L Normal 9-18 [facility] Comment on above: Order Comment: Speci men Type: BLOOD SPECIMENOrdering Facility: [facility] Address: [address] [phone] Performed By: #### 2 4321-2 ####[facility] LABCLIA [id number] [place] [address] [place] Calcium [Mass/Vol] 9.3 mg/dL Normal 8.5-10.2 [facility] Comment on above: Order Comment: Speci men Type: BLOOD SPECIMENOrdering Facility: [facility] Address: [address] [address] Performed By: #### 2 4321-2 ####[facility] LABCLIA [id number] [place] [address] [place] Chloride [Moles/Vol] 102 mmol/L Normal 97-105 [facility] Comment on above: Order Comment: Speci men Type: BLOOD SPECIMENOrdering Facility: [facility] Address: [address] [place] [address] Performed By: #### 2 4321-2 ####[facility] LABCLIA [id number] [place] [address] [place] CO2 [Moles/Vol] 23 mmol/L Normal 22-[address] [facility] Comment on above: Order Comment: Speci men Type: BLOOD SPECIMENOrdering Facility: [facility] Address: [address] [place] [address] Performed By: #### 2 4321-2 ####[facility] LABCLIA [id number] [place] [address] [place] Creatinine [Mass/Vol] 0.72 mg/dL Normal 0.58-0.96 [facility] Comment on above: Order Comment: Speci men Type: BLOOD SPECIMENOrdering Facility: [facility] Address: [address] [place] [address] Performed By: #### 2 4321-2 ####[facility] LABCLIA [id number] [place] [address] [place] ESTIMATED GLOMERULAR FILTRATION RATE 109 mL/min/1.73m??? Normal >=[address] [facility] Comment on above: Order Comment: Speci men Type: BLOOD SPECIMENOrdering Facility: [facility] Address: [address] [place] [address] Result Comment: Dina mated Glomerular Filtration Rate [...] GFR. Performed By: #### 2 4321-2 ####[facility] LABCLIA [id number] [place] [address] [place] Glucose [Mass/Vol] 98 mg/dL Normal 74-99 [facility] Comment on above: Order Comment: Bryan men Type: BLOOD SPECIMENOrdering Facility: [facility] Address: [address] [place] [address] Result Comment: The [place] [employer] (ADA) provides guidance for cutoff [...] Standards of Medical Care in Diabetes 2016, [place] [employer]. Diabetes Care. 2016.39(Suppl 1). Performed By: #### 2 4321-2 ####[facility] LABCLIA [id number] [place] [address] [place] Potassium [Moles/Vol] 4.1 mmol/L Normal 3.7-5.1 [facility] Comment on above: Order Comment: Bryan hernández Type: BLOOD SPECIMENOrdering Facility: [facility] Address: [address] [place], [place] [phone] Performed By: #### 2 4321-2 ####[facility] LABCLIA [id number] [place] [address] [place] Sodium [Moles/Vol] 138 mmol/L Normal 136-144 [facility] Comment on above: Order Comment: Speci men Type: BLOOD SPECIMENOrdering Facility: [facility] Address: [address] [address] Performed By: #### 2 4321-2 ####MICHELLE [facility] LABCLIA [id number] [place] [address] [place] Urea nitrogen [Mass/Vol] 8 mg/dL Normal 7-[address] [facility] Comment on above: Order Comment: Speci men Type: BLOOD SPECIMENOrdering Facility: [facility] Address: [address] [address] Performed By: #### 2 4321-2 ####[facility] LABCLIA [id number] [place] [address] [place] Anion gap [Moles/Vol] 13 mmol/L 9 - 18 mmol/L [facility] Calcium [Mass/Vol] 9.3 mg/dL 8.5 - 10. 2 mg/dL [facility] Chloride [Moles/Vol] 102 mmol/L 97 - 10 5 mmol/L [facility] CO2 [Moles/Vol] 23 mmol/L 22 - 30 mmol/L [facility] Creatinine [Mass/Vol] 0.72 mg/dL 0.58 - 0.96 mg/dL [facility] Estimated Glomerular Filtration Rate 109 mL/min/1.73m >=60 mL/min/1.73m [facility] Glucose [Mass/Vol] 98 mg/dL 74 - 99 mg/dL [facility] Potassium [Moles/Vol] 4.1 mmol/L 3.7 - 5.1 mmol/L [facility] Sodium [Moles/Vol] 138 mmol/L 136 - 144 mmol/L [facility] Urea nitrogen [Mass/Vol] 8 mg/dL 7 - 21 mg/dL [facility] CBC W Auto Differential pane l (Bld)on 07-07-2022 Basophils (Bld) [#/Vol] 0.04 10*3/uL Normal <0.[address] [facility] Comment on above: Order Comment: Speci men Type: BLOOD SPECIMENOrdering Facility: [facility] Address: [address] [address] Performed By: #### 5 7021-8 ####[facility] LABCLIA [id number] [place] [address] [place] Basophils/100 WBC (Bld) 0.5 % Normal [facility] Comment on above: Order Comment: Speci men Type: BLOOD SPECIMENOrdering Facility: [facility] Address: [address] [place] [address] Performed By: #### 5 7021-8 ####[facility] LABCLIA [id number] [place] [address] [place] Differential cell count method Nom (Bld) Auto Normal [facility] Comment on above: Order Comment: Speci men Type: BLOOD SPECIMENOrdering Facility: [facility] Address: [address] [place] [address] Performed By: #### 5 7021-8 ####[facility] LABCLIA [id number] [place] [address] [place] Eosinophils (Bld) [#/Vol] 0.29 10*3/uL Normal <0.[address] [facility] Comment on above: Order Comment: Speci men Type: BLOOD SPECIMENOrdering Facility: [facility] Address: [address] [place] [address] Performed By: #### 5 7021-8 ####[facility] LABCLIA [id number] [place] [address] [place] Eosinophils/100 WBC (Bld) 3.9 % Normal [facility] Comment on above: Order Comment: Speci men Type: BLOOD SPECIMENOrdering Facility: [facility] Address: [address] [place] [address] Performed By: #### 5 7021-8 ####[facility] LABCLIA [id number] [place] [address] [place] Erythrocyte distribution width (RBC) [Ratio] 12.1 % Normal 11.5-15.[address] [facility] Comment on above: Order Comment: Speci men Type: BLOOD SPECIMENOrdering Facility: [facility] Address: [address] [place] [address] Performed By: #### 5 7021-8 ####[facility] LABIA [id number] [place] [address] [place] Hematocrit (Bld) [Volume fraction] 43.5 % Normal 36.0-46.[address] [facility] Comment on above: Order Comment: Speci men Type: BLOOD SPECIMENOrdering Facility: [facility] Address: [address] [place] [address] Performed By: #### 5 7021-8 ####[facility] LABIA [id number] [place] [address] [place] Hemoglobin (Bld) [Mass/Vol] 14.9 g/dL Normal 11.5-15.[address] [facility] Comment on above: Order Comment: Speci men Type: BLOOD SPECIMENOrdering Facility: [facility] Address: [address] [place] [address] Performed By: #### 5 7021-8 ####[facility] LABIA [id number] [place] [address] [place] Immature granulocytes (Bld) [#/Vol] 0.03 10*3/uL Normal <0.[address] [facility] Comment on above: Order Comment: Speci men Type: BLOOD SPECIMENOrdering Facility: [facility] Address: [address] [place] [address] Performed By: #### 5 7021-8 ####[facility] LABIA [id number] [place] [address] [place] Immature granulocytes/100 WBC (Bld) 0.4 % Normal [facility] Comment on above: Order Comment: Speci men Type: BLOOD SPECIMENOrdering Facility: [facility] Address: [address] [place] [address] Performed By: #### 5 7021-8 ####[facility] LABCLIA [id number] [place] [address] [place] Lymphocytes (Bld) [#/Vol] 1.71 10*3/uL Normal 1.00-4.[address] [facility] Comment on above: Order Comment: Speci men Type: BLOOD SPECIMENOrdering Facility: [facility] Address: [address] [place] [address] Performed By: #### 5 7021-8 ####[facility] LABCLIA [id number] [place] [address] [place] Lymphocytes/100 WBC (Bld) 23.2 % Normal [facility] Comment on above: Order Comment: Speci men Type: BLOOD SPECIMENOrdering Facility: [facility] Address: [address] [place] [address] Performed By: #### 5 7021-8 ####[facility]HELLE [facility] LABCLIA [id number] [place] [address] [place] MCH (RBC) [Entitic mass] 34.1 pg High 26.0-34.[address] [facility] Comment on above: Order Comment: Speci men Type: BLOOD SPECIMENOrdering Facility: [facility] Address: [address] [place] [address] Performed By: #### 5 7021-8 ####[facility] LABCLIA [id number] [place] [address] [place] MCHC (RBC) [Mass/Vol] 34.3 g/dL Normal 30.5-36.0 [facility] Comment on above: Order Comment: Speci men Type: BLOOD SPECIMENOrdering Facility: [facility] Address: [address] [address] Performed By: #### 5 7021-8 ####[facility] LABIA [id number] [place] [address] [place] MCV (RBC) [Entitic vol] 99.5 fL Normal 80.0-100.[address] [facility] Comment on above: Order Comment: Speci men Type: BLOOD SPECIMENOrdering Facility: [facility] Address: [address] [address] Performed By: #### 5 7021-8 ####[facility] LABCLIA [id number] [place] [address] [place] Monocytes (Bld) [#/Vol] 0.57 10*3/uL Normal <0.[address] [facility] Comment on above: Order Comment: Speci men Type: BLOOD SPECIMENOrdering Facility: [facility] Address: [address] [address] Performed By: #### 5 7021-8 ####[facility] LABIA [id number] [place] [address] [place] Monocytes/100 WBC (Bld) 7.7 % Normal [facility] Comment on above: Order Comment: Speci men Type: BLOOD SPECIMENOrdering Facility: [facility] Address: [address] [place], [place] [address] Performed By: #### 5 7021-8 ####[facility] LABIA [id number] [place] [address] [place] Neutrophils (Bld) [#/Vol] 4.73 10*3/uL Normal 1.45-7.[address] [facility] Comment on above: Order Comment: Speci men Type: BLOOD SPECIMENOrdering Facility: [facility] Address: [address] [place], [place] [address] Performed By: #### 5 7021-8 ####[facility] LABCLIA [id number] [place] [address] [place] Neutrophils/100 WBC (Bld) 64.3 % Normal [facility] Comment on above: Order Comment: Speci men Type: BLOOD SPECIMENOrdering Facility: [facility] Address: [address] [place] [address] Performed By: #### 5 7021-8 ####[facility] LABCLIA [id number] [place] [address] [place] Nucleated RBC (Bld) [#/Vol] 10*3/uL Normal <0.[address] [facility] Comment on above: Order Comment: Speci men Type: BLOOD SPECIMENOrdering Facility: [facility] Address: [address] [place] [address] Performed By: #### 5 7021-8 ####[facility] LABIA [id number] [place] [address] [place] [facility] Nucleated RBC/100 WBC (Bld) [Ratio] 0.0 /100 WBC Normal [facility] Comment on above: Order Comment: Speci men Type: BLOOD SPECIMENOrdering Facility: [facility] Address: [address] [place] [address] Performed By: #### 5 7021-8 ####[facility] LABIA [id number] [place] [address] [place] Platelet mean volume (Bld) [Entitic vol] 9.6 fL Normal 9.0-12.[address] [facility] Comment on above: Order Comment: Speci men Type: BLOOD SPECIMENOrdering Facility: [facility] Address: [address] [place] [address] Performed By: #### 5 7021-8 ####[facility] LABCLIA [id number] [address] SARAH [address] [address] [place] Platelets (Bld) [#/Vol] 277 10*3/uL Normal 150-[address] [facility] Comment on above: Order Comment: Speci men Type: BLOOD SPECIMENOrdering Facility: [facility] Address: [address] [place] [address] Performed By: #### 5 7021-8 ####[facility] [id number] [place] [address] [place] RBC (Bld) [#/Vol] 4.37 10*6/uL Normal 3.90-5.20 [facility] Comment on above: Order Comment: Speci men Type: BLOOD SPECIMENOrdering Facility: [facility] Address: [address] [place] [address] Performed By: #### 5 7021-8 ####[facility] LABCLIA [id number] [place] [address] [place] WBC (Bld) [#/Vol] 7.37 10*3/uL Normal 3.70-11.00 [facility] Comment on above: Order Comment: Speci men Type: BLOOD SPECIMENOrdering Facility: [facility] Address: [address] [place] [address] Performed By: #### 5 7021-8 ####[facility] LABCLIA [id number] [place] [address] [place] Basophils (Bld) [#/Vol] 0.04 10*3/uL <0.11 k/uL [facility] Basophils/100 WBC (Bld) 0.5 % [facility] Differential cell count method Nom (Bld) Auto [facility] Eosinophils (Bld) [#/Vol] 0.29 10*3/uL <0.46 k/uL [facility] Eosinophils/100 WBC (Bld) 3.9 % [facility] Erythrocyte distribution width (RBC) [Ratio] 12.1 % 11.5 - 15.0 % [facility] Hematocrit (Bld) [Volume fraction] 43.5 % 36.0 - 46.0 % [facility] Hemoglobin (Bld) [Mass/Vol] 14.9 g/dL 11.5 - 15.5 g/dL [facility] Immature granulocytes (Bld) [#/Vol] 0.03 10*3/uL <0.10 k/uL [facility] Immature granulocytes/100 WBC (Bld) 0.4 % [facility] Lymphocytes (Bld) [#/Vol] 1.71 10*3/uL 1.00 - 4.00 k/uL [facility] Lymphocytes/100 WBC (Bld) 23.2 % [facility] MCH (RBC) [Entitic mass] 34.1 pg High 26.0 - 34.0 pg [facility] MCHC (RBC) [Mass/Vol] 34.3 g/dL 30.5 - 36.0 g/dL [facility] MCV (RBC) [Entitic vol] 99.5 fL 80.0 - 100.0 fL [facility] Monocytes (Bld) [#/Vol] 0.57 10*3/uL <0.87 k/uL [facility] Monocytes/100 WBC (Bld) 7.7 % [facility] Neutrophils (Bld) [#/Vol] 4.73 10*3/uL 1.45 - 7.50 k/uL [facility] Neutrophils/100 WBC (Bld) 64.3 % [facility] Nucleated RBC (Bld) [#/Vol] <0.01 k/uL [facility] Nucleated RBC/100 WBC (Bld) [Ratio] 0.0 /100 WBC [facility] Platelet mean volume (Bld) [Entitic vol] 9.6 fL 9.0 - 12.7 fL [facility] Platelets (Bld) [#/Vol] 277 10*3/uL 150 - 400 k/uL [facility] RBC (Bld) [#/Vol] 4.37 10*6/uL 3.90 - 5.2 0 m/uL [facility] WBC (Bld) [#/Vol] 7.37 10*3/uL 3.70 - 11. 00 k/uL [facility] CNOVon 07-07-2022 CNOV Office Visit ([facility] ) KAILA VASQUEZ ([id number]) 1980 F Date Time Provider Department 07/07/22 8:00 AM GLENROY SYED During your visit today, we recorded the following information about you: Pulse Blood pressure Weight Height 82/minute 134/88 112 kg 1.626 m Glenroy Syed APRN.THERAPIST OCCUPATIONAL 07/07/2022 12:28 PM Signed [facility] Neurology New Patient Evaluation CHIEF COMPLAINT: Questionable [...] over a month. 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 A couple times a month she gets [...] like she has an actual headache. Had ALISON end of February this year. Had a [...] PVC (premature ventricular contraction) SVT (supraventricular tachycardia) ([facility]) Vitamin D deficiency No past surgical history on file. ALLERGIES Not on File Social History Tobacco Use Smoking status: Never Smokeless tobacco: Never (more content not included)... Normal [facility] CNPNon 07-07-2022 CNPN Telephone ([facility]) KAILA VASQUEZ ([id number]) 1980 F Date Time Provider Department 07/07/22 GLENROY SYED NEVÍCTORFV During your visit today, we recorded the following information about you: Cinthya Salgado 07/07/2022 8:52 AM Signed Received medical records from [facility]. Uploaded to chart and forwarded for review. Kajal Gillespie RN 07/07/2022 9:14 AM Signed Noted. Provider notified. Allergies As of Date: 07/07/2022 (Not on File) Date Reviewed: 07/07/2022 Reviewed by: Elaine Bolaños Ma - Fully Assessed Reason for Visit: Received Outside Medical Records [0208] Prescriptions as of 07/19/2022 - metoprolol tartrate, short acting, (LOPRESSOR) 50 mg tablet metoprolol tartrate 50 mg tablet Facility-Administered Medications as of 07/19/2022 - perflutren lipid microspheres 1.3 mL in NaCl (PF) 0.9% 10 mL injection (DEFINITY) - sodium chloride 0.9 % (flush) 10 mL (BD POSIFLUSH) Problem List As Of Date: 07/07/2022 (None) Encounter Status:Closed by CINTHYA SALGADO on 07/19/22 Normal [facility] Centromere Ab IF Ql (S)on Centromere Ab Qn (S) <0.2 Normal <1.0 [facility] Comment on above: Order Comment: Speci men Type: BLOOD SPECIMENOrdering Facility: [facility] Address: [address] [place] [address] Result Comment: Anti -centromere antibody is used as in aid in diagnosis of systemic sclerosis. Clinical correlation is required. Test Methodology: Multiplex flow immunoassay. Performed By: #### 2 9374-6, 17008-4, 52055-7, 75629-4, 75291-4, ANAIFR, 83046-8, 12868-6, 00222-9, 97533-6 ####[facility] LABCLIA [id number] [place] [address] [place] CENTROMERE AB QUAL Negative Normal Negative [facility] Comment on above: Order Comment: Speci men Type: BLOOD SPECIMENOrdering Facility: [facility] Address: [address] [place] [address] Performed By: #### 2 9374-6, 45647-3, 82769-4, 42226-7, 89600-6, ANAIFR, 43123-1, 54679-6, 94177-8, 36771-8 ####[facility] LABIA [id number] [place] [address] [place] Chromatin Ab Qnon 07-07-2022 CHROMATIN AB QUAL Negative Normal Negative [facility] Comment on above: Order Comment: Speci men Type: BLOOD SPECIMENOrdering Facility: [facility] Address: [address] [place] [address] Performed By: #### 2 9374-6, 87962-0, 70230-6, 55892-2, 72256-9, ANAIFR, 81255-5, 52637-2, 52764-5, 61876-5 ####[facility] LABIA [id number] [place] [address] [place] Chromatin Ab SerPl-aCncon Chromatin Ab Qn <0.2 Normal <1.[address] [facility] Comment on above: Order Comment: Speci men Type: BLOOD SPECIMENOrdering Facility: [facility] Address: [address] [place] [address] Result Comment: Test Methodology: Multiplex flow immunoassay. Performed By: #### 2 9374-6, 04995-5, 01556-4, 39695-6, 98185-9, ANAIFR, 37767-8, 05313-4, 21474-6, 16839-3 ####[facility] LABCLIA [id number] [place] [address] [place] KAMRAN Jo1 Ab Ser-aCncon 2021 Radha-1 extractable nuclear Ab Qn (S) <0.2 Normal <1.[address] [facility] Comment on above: Order Comment: Speci men Type: BLOOD SPECIMENOrdering Facility: [facility] Address: [address] [place] [address] Performed By: #### 2 9374-6, 89862-6, 10419-7, 55213-8, 04473-8, ANAIFR, 05976-5, 78065-8, 40349-7, 08517-2 ####[facility] LABIA [id number] [place] [address] [place] [address] DESIGN DRAFTSPERSON Ab Ser-aCncon 2021 Ribonucleoprotein extractable nuclear Ab Qn (S) <0.2 Normal <1.[address] [facility] Comment on above: Order Comment: Speci men Type: BLOOD SPECIMENOrdering Facility: [facility] Address: [address] [place] [address] Performed By: #### 2 9374-6, 33643-5, 97635-4, 31346-0, 58119-7, ANAIFR, 16975-3, 57519-9, 14476-2, 44001-1 ####[facility] LABCLIA [id number] [place] [address] [place] KAMRAN SM IgG Ser-aCncon 2021 Osborne extractable nuclear IgG Qn (S) <0.2 Normal <1.[address] [facility] Comment on above: Order Comment: Speci men Type: BLOOD SPECIMENOrdering Facility: [facility] Address: [address] [place] [address] Performed By: #### 2 9374-6, 13863-2, 92149-0, 82532-5, 64713-2, ANAIFR, 35898-2, 65303-0, 23372-6, 48074-3 ####[facility] [id number] [address] [place] SS-A Ab Ser-aCncon 07-07 Sjogrens syndrome-A extractable nuclear Ab Qn (S) 0.3 AI Normal <1.[address] [facility] Comment on above: Order Comment: Speci men Type: BLOOD SPECIMENOrdering Facility: [facility] Address: [address] [place] [address] Result Comment: Test Methodology: Multiplex flow immunoassay. Performed By: #### 2 9374-6, 99310-0, 11434-1, 98211-7, 93203-4, ANAIFR, 06302-2, 94069-4, 97799-4, 29859-7 ####[facility] LABIA [id number] [address] [place] SS-B Ab Ser-aCncon 07-07 Sjogrens syndrome-B extractable nuclear Ab Qn (S) <0.2 Normal <1.[address] [facility] Comment on above: Order Comment: Speci men Type: BLOOD SPECIMENOrdering Facility: [facility] Address: [address] [place] [address] Result Comment: Anti -SSB (anti-La) antibody is used as an aid in diagnosis of a variety of systemic autoimmune diseases, especially for Sjogren's syndrome and systemic lupus erythematosus. Clinical correlation is required. Test Methodology: Multiplex flow immunoassay. Performed By: #### 2 9374-6, 78421-9, 07734-8, 25338-5, 98736-4, ANAIFR, 65413-6, 84955-8, 61991-8, 62536-7 ####[facility] [id number] [place] [address] [place] Radha-1 extractable nuclear Ab Qn (S)on 07-07-2022 RADHA 1 ANTIBODY QUAL Negative Normal Negative [facility] Comment on above: Order Comment: Speci men Type: BLOOD SPECIMENOrdering Facility: [facility] Address: [address] [place] [address] Result Comment: Anti -RADHA-1 antibody is used as an aid in diagnosis of polymyositis and dermatomyositis especially with pulmonary involvement. A negative result cannot rule out polymyositis or dermatomyositis. Clinical correlation is required. Test Methodology: Multiplex flow immunoassay. Performed By: #### 2 9374-6, 71497-9, 85006-8, 27064-2, 95685-3, ANAIFR, 46258-2, 78207-4, 17978-1, 79460-0 ####[facility] [id number] [place] [address] [place] Ribonucleoprotein extractabl e nuclear Ab Qn (S)on 07-07-2022 ANTI-ROAD DESIGN DRAFTSPERSON QUAL Negative Normal Negative [facility] Comment on above: Order Comment: Speci betty Type: BLOOD SPECIMENOrdering Facility: [facility] Address: [address] [place] [address] Performed By: #### 2 9374-6, 13204-8, 93401-1, 05373-5, 09153-9, ANAIFR, 71459-1, 50713-0, 99497-0, 04765-4 ####[facility] [id number] [place] [address] [place] RIBOSOMAL ROAD DESIGN DRAFTSPERSON QUAL Negative Normal Negative [facility] Comment on above: Order Comment: Speci men Type: BLOOD SPECIMENOrdering Facility: [facility] Address: [address] [place], [place] [id number] Result Comment: Anti -Ribosomal RNA (Ribosomal P) antibody is used as an aid in diagnosis of systemic autoimmune diseases especially systemic lupus erythematosus and mixed connective tissue disease. Cross-reactivity with Anti-osborne antibody is not uncommon. Clinical correlation is required. Test Methodology: Multiplex flow immunoassay. Performed By: #### 2 9374-6, 19438-9, 65405-2, 68946-7, 83902-1, ANAIFR, 07538-7, 22383-7, 53188-5, 63520-8 ####[facility] LABCLIA [id number] [address] [place] SCL-70 extractable nuclear I gG IA Qn (S)on 07-07-2022 SCLERODERMA AB QUAL Negative Normal Negative [facility] Comment on above: Order Comment: Speci men Type: BLOOD SPECIMENOrdering Facility: [facility] Address: [address] [place] [address] Performed By: #### 2 9374-6, 92904-6, 77684-6, 71816-0, 55423-8, ANAIFR, 93913-0, 15125-6, 14001-3, 50739-3 ####[facility] LABIA [id number] [address] [place] SCLERODERMA IGG AB <0.2 Normal <1.0 [facility] Comment on above: Order Comment: Speci men Type: BLOOD SPECIMENOrdering Facility: [facility] Address: [address] [place] [address] Result Comment: Scl- 70/Scleroderma antibody test is used as an aid in diagnosis of systemic sclerosis especially the diffuse cutaneous form. A negative result cannot rule out systemic sclerosis. The final interpretation should consider clinical picture and other test results such as anti-centromere antibody. Test Methodology: Multiplex flow immunoassay. Performed By: #### 2 9374-6, 45855-1, 08018-4, 10509-4, 63052-4, ANAIFR, 67679-3, 65291-4, 42092-7, 69853-5 ####[facility] LABCLIA [id number] [address] [place] Sjogrens syndrome-A extracta ble nuclear Ab Qn (S)on 07-07-2022 SSA ANTIBODY QUAL Negative Normal Negative [facility] Comment on above: Order Comment: Speci men Type: BLOOD SPECIMENOrdering Facility: [facility] Address: [address] [place] [address] Performed By: #### 2 9374-6, 50147-5, 91388-8, 40049-3, 95814-2, ANAIFR, 35127-9, 88387-8, 86044-0, 30244-0 ####[facility] LABIA [id number] [address] [place] Sjogrens syndrome-B extracta ble nuclear Ab Qn (S)on 07-07-2022 SSB ANTIBODY QUAL Negative Normal Negative [facility] Comment on above: Order Comment: Speci men Type: BLOOD SPECIMENOrdering Facility: [facility] Address: [address] [place] [address] Performed By: #### 2 9374-6, 17399-3, 99339-3, 31355-1, 04246-5, ANAIFR, 83823-1, 36831-7, 03941-3, 80488-0 ####[facility] [id number] [address] [place] Osborne extractable nuclear Ig G Qn (S)on 07-07-2022 SM ANTIBODY QUAL Negative Normal Negative [facility] Comment on above: Order Comment: Speci men Type: BLOOD SPECIMENOrdering Facility: [facility] Address: [address] [place] [address] Result Comment: Anti -Sm (Osborne) antibody is used as an aid in diagnosis of systemic lupus erythematosus and its presence is associated with renal disease. A negative result cannot rule out systemic lupus erythematosus. Clinical correlation is required. Test Methodology: Multiplex flow immunoassay. Performed By: #### 2 9374-6, 65865-3, 81771-4, 28749-8, 72447-1, ANAIFR, 19502-4, 31118-7, 96797-5, 25946-2 ####[facility] [id number] [place] [address] [place] TSH BLDon 07-07-2022 TSH Qn 0.824 m[IU]/L 0.270 - 4.200 mIU/L [facility] TSH SerPl-aCncon 07-07-2022 TSH Qn 0.824 m[IU]/L Normal 0.270-4.[address] [facility] Comment on above: Order Comment: Speci men Type: BLOOD SPECIMENOrdering Facility: [facility] Address: [address] [place], [place] [id number] Result Comment: If t he patient is , TSH reference range varies by gestational period: First Trimester (weeks 9-12): 0.180-2.990 mIU/L Second Trimester: 0.110-3.980 mIU/L Third Trimester: 0.480-4.710 mIU/L Eliezer Bangura et al. A Practical Approach for the Verifications and Determination of Site- and Trimester-Specific Reference Intervals for Thyroid Function tests in . Thyroid, 2019:29:3:412-420. Rob Forrest, et al. 2017 Guidelines of the [place] [employer] for the Diagnosis and Management of Thyroid Disease during and the . Thyroid, 2017:27:3:315-389. Performed By: #### 3 016-3, 2132-9 ####[facility] [id number] [place] [id number] [place] VITAMIN B12 BLOODon 07-07-20 22 Cobalamin (Vitamin B12) [Mass/Vol] 618 pg/mL 232 - 1,245 pg/mL [facility] Vit B12 SerPl-mCncon 022 Cobalamin (Vitamin B12) [Mass/Vol] 618 pg/mL Normal 232-[address] [facility] Comment on above: Order Comment: Speci men Type: BLOOD SPECIMENOrdering Facility: [facility] Address: [address] [place] [address] Performed By: #### 3 016-3, 2132-9 ####[facility] LABCLIA [id number] [place] [address] [place] dsDNA Ab Ser IA-aCncon 07-07 DNA double strand Ab IA Qn (S) <12 Normal <[address] [facility] Comment on above: Order Comment: Speci men Type: BLOOD SPECIMENOrdering Facility: [facility] Address: [address] [place] [address] Result Comment: Nega tive for ds DNA Antibodies. <30 IU/mL Negative 30-74 IU/mL Equivocal >74 IU/mL Positive Performed By: #### 2 9374-6, 44799-9, 31593-8, 78135-5, 60059-3, ANAIFR, 92349-4, 69443-6, 58186-0, 42349-8 ####[facility] LABCLIA [id number] [place] [address] [place] HLA B 27on 04-26-2022 HLA-B27 Negative Normal [facility] Comment on above: Result Comment: HLA- B*27 Negative B27 allele interpretation for all loci based on IMGT/HLA database version 3.44 This test was developed and its performance characteristics determined by [facility]. It has not been cleared or approved by the Food and Drug Administration. [facility] CLIA ID Number [id number] . This test was performed using PCR (Polymerase Chain Reaction)/SSOP (Sequence Specific Oligonucleotide Probes) technique. SBT (Sequence Based Typing) and/or SSP (Sequence Specific Primers) may be used as supplemental methods when necessary. Please contact HLA Customer Service at if you have any questions. . Director of HLA Laboratory Dr Abdiaziz Shook, PhD Performed By: #### C VDAGA #### [facility] [address] [place] [address] [address] Christos Fallon 25-HYDROXY VIT D (D2+D3 [facility] ) LC/MS-MSon 04-23-2022 25-Hydroxy, Vitamin D 26 ng/mL Critically low [facility] Comment on above: Result Comment: Refe rence Range: All Ages: Target levels 30 - 100 Performed By: #### C MP, TSH, HSTROPN #### [facility] [address] [place] [address] Dr. Christos Fallon 25-Hydroxy, Vitamin D-2 <1.0 Normal [facility] Comment on above: Result Comment: This test was developed and its performance characteristics determined by [facility]. It has not been cleared or approved by the Food and Drug Administration. Performed By: #### C MP, TSH, HSTROPN #### [facility] [address] [place] [address] Dr. Christos Fallon 25-Hydroxy, Vitamin D-3 26 ng/mL Normal [facility] Comment on above: Result Comment: This test was developed and its performance characteristics determined by [facility]. It has not been cleared or approved by the Food and Drug Administration. Performed By: #### C MP, TSH, HSTROPN #### [facility] [address] [place] [address] Dr. Christos Fallon REVERSE T3on 04-20-2022 Reverse T3, Serum 11.2 ng/dL Normal 9.2-24.1 [facility] Comment on above: Result Comment: This test was developed and its performance characteristics determined by [facility]. It has not been cleared or approved by the Food and Drug Administration. Performed By: #### C VDAGA #### [facility] [address] [place] [address] Dr. Christos Fallon THYROID ANTIBODIESon 022 Thyroglobulin Antibody <1.0 Normal 0.0-0.9 [facility] Comment on above: Result Comment: Thyr oglobulin Antibody measured by [employer] Methodology Performed By: #### C VDAGA #### [facility] [address] [place] [address] Dr. Christos Fallon Thyroid Peroxidase (TPO) Ab 11 IU/mL Normal 0-34 [facility] Comment on above: Performed By: #### C VDAGA #### [facility] [address] [place] [address] Dr. Christos Fallon ANTISTREPTOLYSIN O AB (ASO)o n 04-16-2022 Antistreptolysin O Ab 21.8 IU/mL Normal 0.0-200.0 [facility] Comment on above: Performed By: #### C MP, TSH, HSTROPN #### [facility] [address] [place] [address] Dr. Christos Fallon T3, TOTAL (TRIIODOTHYRONINE) on 04-16-2022 T3, TOTAL 115 ng/dL Normal 71-180 [facility] Comment on above: Performed By: #### C MP, TSH, HSTROPN #### [facility] [address] [place] [address] Dr. Christos Fallon FREE T3on 04-14-2022 FREE T3 2.46 pg/mlL Normal 2.18-3.98 [facility] Comment on above: Performed By: #### C MP, TSH, HSTROPN #### [facility] [address] [place] [address] Dr. Christos Fallon FREE T4on 04-14-2022 Free T4 [Mass/Vol] 0.88 ng/dL Normal 0.76-1.46 [facility] Comment on above: Performed By: #### C VDAGA #### [facility] [address] [place] [address] Dr. Christos Fallon TSHon 04-14-2022 TSH 1.027 uIU/mL Normal 0.358-3.740 [facility] Comment on above: Performed By: #### C MP, TSH, HSTROPN #### [facility] [address] [place] [address] Dr. Christos Fallon CBC AUTO DIFFon 03-22-2022 BASO # 0.1 103/ul Normal 0.0-0.1 [facility] Comment on above: Performed By: #### C MP, TSH, HSTROPN #### [facility] [address] [place] [address] Dr. Christos Fallon Basophils/100 WBC (Bld) 0.7 % Normal 0.2-2.0 [facility] Comment on above: Performed By: #### C MP, TSH, HSTROPN #### [facility] [address] [place] [address] Dr. Christos Fallon EO # 0.3 103/ul Normal 0.0-0.7 [facility] Comment on above: Performed By: #### C MP, TSH, HSTROPN #### [facility] [address] [place] [address] Dr. Christos Fallon Eosinophils/100 WBC (Bld) 3.4 % Normal 0.9-7.0 [facility] Comment on above: Performed By: #### C MP, TSH, HSTROPN #### [facility] [address] [place] [address] Dr. Christos Fallon Erythrocyte distribution width (RBC) [Ratio] 12.5 % Normal 11.0-15.0 [facility] Comment on above: Performed By: #### C MP, TSH, HSTROPN #### [facility] [address] [place] [address] Dr. Christos Fallon Hematocrit (Bld) [Volume fraction] 41.3 % Normal 36.0-48.0 [facility] Comment on above: Performed By: #### C MP, TSH, HSTROPN #### [facility] [address] [place] [address] Dr. Christos Fallon Hemoglobin (Bld) [Mass/Vol] 14.2 g/dL Normal 12.0-16.0 [facility] Comment on above: Performed By: #### C MP, TSH, HSTROPN #### [facility] [address] [place] [address] Dr. Christos Fallon IG # 0.03 10e3/ul Normal 0.00-0.03 [facility] Comment on above: Performed By: #### C MP, TSH, HSTROPN #### [facility] [address] [place] [address] Dr. Christos Fallon IG % 0.4 % Normal 0.0-0.5 [facility] Comment on above: Performed By: #### C MP, TSH, HSTROPN #### [facility] [address] [place] [address] Dr. Christos Fallon LYMPH # 2.3 103/ul Normal 1.2-3.8 [facility] Comment on above: Performed By: #### C MP, TSH, HSTROPN #### [facility] [address] [place] [address] Dr. Christos Fallon Lymphocytes/100 WBC (Bld) 31.3 % Normal 20.5-60.0 [facility] Comment on above: Performed By: #### C MP, TSH, HSTROPN #### [facility] [address] [place] [address] Dr. Christos Fallon MANUAL DIFF REQ NO Normal [facility] Comment on above: Performed By: #### C MP, TSH, HSTROPN #### [facility] [address] [place] [address] Dr. Christos Fallon MCH (RBC) [Entitic mass] 34.8 pg Critically high 26.7-34.0 [facility] Comment on above: Performed By: #### C MP, TSH, HSTROPN #### [facility] [address] [place] [address] Dr. Christos Fallon MCHC (RBC) [Mass/Vol] 34.4 g/dL Normal 29.9-35.2 [facility] Comment on above: Performed By: #### C MP, TSH, HSTROPN #### [facility] [address] [place] [address] Dr. Christos Fallon MCV (RBC) [Entitic vol] 101.2 fL Critically high 81.0-99.0 [facility] Comment on above: Performed By: #### C MP, TSH, HSTROPN #### [facility] [address] [place] [address] Dr. Christos Fallon MONO # 0.9 103/ul Critically high 0.3-0.8 [facility] Comment on above: Performed By: #### C MP, TSH, HSTROPN #### [facility] [address] [place] [address] Dr. Christos Fallon Monocytes/100 WBC (Bld) 12.0 % Normal 1.7-12.0 [facility] Comment on above: Performed By: #### C MP, TSH, HSTROPN #### [facility] [address] [place] [address] [address] Christos Fallon NEUT # 3.9 103/ul Normal 1.4-6.5 [facility] Comment on above: Performed By: #### C MP, TSH, HSTROPN #### [facility] [address] [place] [address] [address] Christos Fallon Neutrophils/100 WBC (Bld) 52.2 % Normal 43.0-75.0 [facility] Comment on above: Performed By: #### C MP, TSH, HSTROPN #### [facility] [address] [place] [address] Dr. Christos Fallon Platelet mean volume (Bld) [Entitic vol] 9.7 fL Normal 9.5-13.5 [facility] Comment on above: Performed By: #### C MP, TSH, HSTROPN #### [facility] [address] [place] [address] Dr. Christos Fallon PLT 296 103/ul Normal 150-450 [facility] Comment on above: Performed By: #### C MP, TSH, HSTROPN #### [facility] [address] [place] [address] Dr. Christos Fallon RBC 4.08 106/ul Critically low 4.20-5.40 [facility] Comment on above: Performed By: #### C MP, TSH, HSTROPN #### [facility] [address] [place] [address] Dr. Christos Fallon WBC 7.4 103/ul Normal 4.0-11.0 [facility] Comment on above: Performed By: #### C MP, TSH, HSTROPN #### [facility] [address] [place] [address] HEAD WO CONon [...] PAL WETZEL Date: 2022-03-22 17:41 Normal [facility] ER URINE PROFILEon 2 Bilirubin Ql (U) Negative Normal NEGATIVE [facility] Comment on above: Performed By: #### C VDAGA #### [facility] [address] [place] [address] Dr. Christos Fallon Clarity (U) CLOUDY Abnormal CLEAR [facility] Comment on above: Performed By: #### C VDAGA #### [facility] [address] [place] [address] Dr. Christos Fallon Color (U) LT. YELLOW Normal YELLOW [facility] Comment on above: Performed By: #### C VDAGA #### [facility] [address] [place] [address] Dr. Christos Fallon ERUAHD A micrscopic examination will be performed if indicated. Normal [facility] Comment on above: Performed By: #### C VDAGA #### [facility] [address] [place] [address] Dr. Christos Fallon Glucose Ql (U) Negative Normal NEGATIVE [facility] Comment on above: Performed By: #### C VDAGA #### [facility] [address] [place] [address] Dr. Christos Fallon Hemoglobin Ql (U) Negative Normal NEGATIVE [facility] Comment on above: Performed By: #### C VDAGA #### [facility] [address] [place] [address] Dr. Christos Fallon Ketones Ql (U) Negative Normal NEGATIVE [facility] Comment on above: Performed By: #### C VDAGA #### [facility] [address] [place] [address] Dr. Christos Fallon LEUKOCYTES Negative Normal NEGATIVE [facility] Comment on above: Performed By: #### C VDAGA #### [facility] [address] [address] [address] Christos Fallon Nitrite Ql (U) Negative Normal NEGATIVE [facility] Comment on above: Performed By: #### C VDAGA #### [facility] [address] [place] [address] Dr. Christos Fallon pH (U) 6.0 [pH] Normal 5-9 [facility] Comment on above: Performed By: #### C VDAGA #### [facility] [address] [place] [address] Dr. Christos Fallon SPEC GRAVITY 1.010 Normal 1.005-<=1.02 5 [facility] Comment on above: Performed By: #### C VDAGA #### [facility] [address] [place] [address] Dr. Christos Fallon UA PROTEIN Negative Normal NEGATIVE/ TRACE [facility] Comment on above: Performed By: #### C VDAGA #### [facility] [address] [place] [address] Dr. Christos Fallon UR MICRO IND NOT INDICATED Normal [facility] Comment on above: Performed By: #### C VDAGA #### [facility] [address] [place] [address] Dr. Christos Fallon Urobilinogen Qn (U) 0.2 {Peyman'U}/dL Normal 0.2 - 1. 0 [facility] Comment on above: Performed By: #### C VDAGA #### [facility] [address] [place] [address] Dr. Christos Fallon PROF 14(COMP METB)on 022 Albumin [Mass/Vol] 3.6 g/dL Normal 3.4-5.0 [facility] Comment on above: Performed By: #### C MP, HSTROPN, TSH #### [facility] [address] [address] [address] Christos Fallon Albumin/Globulin [Mass ratio] 0.9 {ratio} Normal [facility] Comment on above: Performed By: #### C MP, HSTROPN, TSH #### [facility] [address] [place] [address] Dr. Christos Fallon ALP [Catalytic activity/Vol] 83 U/L Normal 46-116 [facility] Comment on above: Performed By: #### C MP, HSTROPN, TSH #### [facility] [address] [place] [address] Dr. Christos Fallon ALT [Catalytic activity/Vol] 32 U/L Normal 14-59 [facility] Comment on above: Performed By: #### C MP, HSTROPN, TSH #### [facility] [address] [address] [address] Christos Fallon Anion gap [Moles/Vol] 15.4 mmol/L Normal [facility] Comment on above: Performed By: #### C MP, HSTROPN, TSH #### [facility] [address] [address] [address] Christos Fallon AST [Catalytic activity/Vol] 15 U/L Normal 15-37 [facility] Comment on above: Performed By: #### C MP, HSTROPN, TSH #### [facility] [address] [address] [address] Christos Fallon Bilirubin [Mass/Vol] 0.3 mg/dL Normal 0.2-1.0 [facility] Comment on above: Performed By: #### C MP, HSTROPN, TSH #### [facility] [address] [address] [address] Christos Fallon Calcium [Mass/Vol] 8.9 mg/dL Normal 8.5-10.1 [facility] Comment on above: Performed By: #### C MP, HSTROPN, TSH #### [facility] [address] [address] [address] Christos Fallon Chloride [Moles/Vol] 102 mmol/L Normal 98-107 [facility] Comment on above: Performed By: #### C MP, HSTROPN, TSH #### [facility] [address] [address] [address] Christos Fallon CO2 [Moles/Vol] 22.7 mmol/L Normal 21.0-32.0 [facility] Comment on above: Performed By: #### C RAY, HSTROPN, TSH #### [facility] [address] [place] [address] Dr. Christos Fallon Creatinine [Mass/Vol] 0.97 mg/dL Normal 0.55-1.02 [facility] Comment on above: Performed By: #### C MP, HSTROPN, TSH #### [facility] [address] [place] [address] Dr. Christos Fallon EGFR-AF AUSTRIAN >60 Normal >=60 [facility] Comment on above: Performed By: #### C RAY, HSTROPN, TSH #### [facility] [address] [place] [address] Dr. Christos Fallon EGFR-NON AF AUSTRIAN >60 Normal >=60 [facility] Comment on above: Performed By: #### C MP, HSTROPN, TSH #### [facility] [address] [place] [address] Dr. Christos Fallon Globulin (S) [Mass/Vol] 3.8 g/dL Normal [facility] Comment on above: Performed By: #### C MP, HSTROPN, TSH #### [facility] [address] [place] [address] Dr. Christos Fallon Glucose [Mass/Vol] 104 mg/dL Normal 74-106 [facility] Comment on above: Performed By: #### C MP, HSTROPN, TSH #### [facility] [address] [place] [address] Dr. Christos Fallon Potassium [Moles/Vol] 4.1 mmol/L Normal 3.5-5.1 [facility] Comment on above: Performed By: #### C MP, HSTROPN, TSH #### [facility] [address] [place] [address] Dr. Christos Fallon Protein [Mass/Vol] 7.4 g/dL Normal 6.4-8.2 [facility] Comment on above: Performed By: #### C MP, HSTROPN, TSH #### [facility] [address] [place] [address] Dr. Christos Fallon Sodium [Moles/Vol] 136 mmol/L Normal 136-145 [facility] Comment on above: Performed By: #### C MP, HSTROPN, TSH #### [facility] [address] [place] [address] Dr. Christos Fallon Urea nitrogen [Mass/Vol] 17.0 mg/dL Normal 7.0-18.0 [facility] Comment on above: Performed By: #### C MP, HSTROPN, TSH #### [facility] [address] [place] [address] Dr. Christos Fallon Urea nitrogen/Creatinine [Mass ratio] 17.5 mg/mg Normal [facility] Comment on above: Performed By: #### C MP, HSTROPN, TSH #### [facility] [address] [place] [address] Dr. Christos Fallon TROPONIN, HIGH SENSITIVITYon 03-22-2022 HSTROP <4.0 Normal 4.0-51.3 [facility] Comment on above: Result Comment: CUT- OFF POINTS HAVE BEEN ESTABLISHED BASED ON THE FOURTH UNIVERSAL DEFINITIONS OF MYOCARDIAL INFARCTION. THE UPPER REFERENCE LIMIT (URL) OF TROPONIN, DEFINED THE 99TH PERCENTILE OF cTnI DISTRIBUTION IN A REFERENCE POPULATION, HAS BEEN CONFIRMED THE DECISION THRESHOLD FOR NM DIAGNOSIS. Performed By: #### C MP, HSTROPN, TSH #### [facility] [address] [place] [address] Dr. Christos Fallon TSHon 03-22-2022 TSH 0.854 uIU/mL Normal 0.358-3.740 [facility] Comment on above: Performed By: #### C MP, HSTROPN, TSH #### [facility] [address] [address] [address] Christos Fallon ASYMPTOMATIC COVID-19 ANTIGE Non 03-03-2022 EUA Statement SEE BELOW Normal [facility] Comment on above: Result Comment: This test [...] sooner. Performed By: #### C VDAGA #### [facility] [address] [place] [address] Dr. Christos Fallon SARS-CoV-2 (COVID-19) RNA LEROY+probe Ql (Unsp spec) Positive Critically abnormal NEGATIVE [facility] Comment on above: Result Comment: SARS -CoV-2 antigen present; does not rule out coinfection with other pathogens. Performed By: #### C VDAGA #### [facility] [address] [place] [address] Dr. Christos Fallon [facility]-19 [facility]-06 SARS-CoV-2 (COVID-19) RNA LEROY+probe Ql (Unsp spec) Detected Critically abnormal NOT DETECTED [facility] Comment on above: Result Comment: This test is not yet approved or cleared by the [place] FDA. When there are no FDA-approved or cleared tests available, and other criteria are met, FDA can make tests available under an emergency access mechanism called an Emergency Use Authorization (EUA). The EUA for this test is supported by the [place] of Health and Human Service's declaration that [...] By: #### C MP, TSH, HSTROPN #### [facility] [address] [place] [address] Dr. Christos Fallon CRPon 11-25-2021 CRP [Mass/Vol] mg/L Normal <=1.0 [facility] Comment on above: Performed By: #### C MP, TSH, HSTROPN #### [facility] [address] [place] [address] Dr. Christos Fallon VIT B12 AND FOLATEon 022 Cobalamin (Vitamin B12) [Mass/Vol] 329.0 pg/mL Normal 239.0-931.0 [facility] Comment on above: Performed By: #### C MP, TSH, HSTROPN #### [facility] [address] [place] [address] Dr. Christos Fallon FOLATE 8.50 ng/mL Normal >=2.76 [facility] Comment on above: Performed By: #### C MP, TSH, HSTROPN #### [facility] [address] [place] [address] Dr. Christos Fallon CBC AUTO DIFFon 11-19-2021 BASO # 0.1 103/ul Normal 0.0-0.1 [facility] Comment on above: Performed By: #### C BC #### [facility] [address] [place] [address] Dr. Christos Fallon Basophils/100 WBC (Bld) 0.8 % Normal 0.2-2.0 [facility] Comment on above: Performed By: #### C BC #### [facility] [address] [place] [address] Dr. Christos Fallon EO # 0.3 103/ul Normal 0.0-0.7 [facility] Comment on above: Performed By: #### C BC #### [facility] [address] [place] [address] Dr. Christos Fallon Eosinophils/100 WBC (Bld) 4.8 % Normal 0.9-7.0 [facility] Comment on above: Performed By: #### C BC #### [facility] [address] [place] [address] Dr. Christos Fallon Erythrocyte distribution width (RBC) [Ratio] 12.2 % Normal 11.0-15.0 [facility] Comment on above: Performed By: #### C BC #### [facility] [address] [place] [address] Dr. Christos Fallon Hematocrit (Bld) [Volume fraction] 41.9 % Normal 36.0-48.0 [facility] Comment on above: Performed By: #### C BC #### [facility] [address] [place] [address] Dr. Christos Fallon Hemoglobin (Bld) [Mass/Vol] 14.2 g/dL Normal 12.0-16.0 [facility] Comment on above: Performed By: #### C BC #### [facility] [address] [place] [address] Dr. Christos Fallon IG # 0.03 10e3/ul Normal 0.00-0.03 [facility] Comment on above: Performed By: #### C BC #### [facility] [address] [place] [address] Dr. Christos Fallon IG % 0.5 % Normal 0.0-0.5 [facility] Comment on above: Performed By: #### C BC #### [facility] [address] [place] [address] Dr. Christos Fallon LYMPH # 1.5 103/ul Normal 1.2-3.8 [facility] Comment on above: Performed By: #### C BC #### [facility] [address] [place] [address] Dr. Christos Fallon Lymphocytes/100 WBC (Bld) 24.6 % Normal 20.5-60.0 [facility] Comment on above: Performed By: #### C BC #### [facility] [address] [place] [address] Dr. Christos Fallon MANUAL DIFF REQ NO Normal [facility] Comment on above: Performed By: #### C BC #### [facility] [address] [place] [address] Dr. Christos Fallon MCH (RBC) [Entitic mass] 34.3 pg Critically high 26.7-34.0 [facility] Comment on above: Performed By: #### C BC #### [facility] [address] [place] [address] Dr. Christos Fallon MCHC (RBC) [Mass/Vol] 33.9 g/dL Normal 29.9-35.2 [facility] Comment on above: Performed By: #### C BC #### [facility] [address] [place] [address] Dr. Christos Fallon MCV (RBC) [Entitic vol] 101.2 fL Critically high 81.0-99.0 [facility] Comment on above: Performed By: #### C BC #### [facility] [address] [place] [address] Dr. Christos Fallon MONO # 0.5 103/ul Normal 0.3-0.8 [facility] Comment on above: Performed By: #### C BC #### [facility] [address] [place] [address] Dr. Christos Fallon Monocytes/100 WBC (Bld) 7.2 % Normal 1.7-12.0 [facility] Comment on above: Performed By: #### C BC #### [facility] [address] [place] [address] Dr. Christos Fallon NEUT # 3.9 103/ul Normal 1.4-6.5 [facility] Comment on above: Performed By: #### C BC #### [facility] [address] [place] [address] Dr. Christos Fallon Neutrophils/100 WBC (Bld) 62.1 % Normal 43.0-75.0 [facility] Comment on above: Performed By: #### C BC #### [facility] [address] [address] [address] Christos Fallon Platelet mean volume (Bld) [Entitic vol] 9.1 fL Critically low 9.5-13.5 [facility] Comment on above: Performed By: #### C BC #### [facility] [address] [address] [address] Christos Fallon PLT 301 103/ul Normal 150-450 [facility] Comment on above: Performed By: #### C BC #### [facility] [address] [address] [address] Christos Fallon RBC 4.14 106/ul Critically low 4.20-5.40 [facility] Comment on above: Performed By: #### C BC #### [facility] [address] [place] [address] Dr. Christos Fallon WBC 6.3 103/ul Normal 4.0-11.0 [facility] Comment on above: Performed By: #### C BC #### [facility] [address] [place] [address] Dr. Christos Fallon FREE T3on 11-19-2021 FREE T3 2.72 pg/mlL Critically low 2.77-5.27 [facility] Comment on above: Performed By: #### C MP, TSH, HSTROPN #### [facility] [address] [place] [address] Dr. Christos Fallon FREE T4on 11-19-2021 Free T4 [Mass/Vol] 1.09 ng/dL Normal 0.78-2.19 [facility] Comment on above: Performed By: #### C MP, TSH, HSTROPN #### [facility] [address] [place] [address] Dr. Christos Fallon GLYCOHEMOGLOBIN A1Con 2021 ADA RECOMMENDATION ADA THERAPEUTIC TARG ET 6.0 - 7.0 ACTION SUGGESTED > 7.0 Normal [facility] Comment on above: Performed By: #### A 1C #### [facility] [address] [place] [address] Dr. Christos Fallon Glucose [Mass/Vol] 105 mg/dL Normal [facility] Comment on above: Performed By: #### A 1C #### [facility] [address] [place] [address] Dr. Christos Fallon HbA1c (Bld) [Mass fraction] 5.3 % Normal <=6.0 [facility] Comment on above: Performed By: #### A 1C #### [facility] [address] [place] [address] Dr. Christos Fallon LIPID PROFILEon 11-19-2021 CHOL-HDL RATIO NORM SEE BELOW Normal [facility] Comment on above: Result Comment: 3.3 - 4.4 LOW RISK 4.4 - 7.1 AVERAGE RISK 7.1 - 11.0 MODERATE RISK >11.0 HIGH RISK Performed By: #### C MP, TSH, HSTROPN #### [facility] [address] [place] [address] Dr. Christos Fallon Cholesterol [Mass/Vol] 232 mg/dL Critically high <=200 [facility] Comment on above: Performed By: #### C MP, TSH, HSTROPN #### [facility] [address] [place] [address] Dr. Christos Fallon Cholesterol in HDL [Mass/Vol] 60 mg/dL Normal 40-60 [facility] Comment on above: Performed By: #### C MP, TSH, HSTROPN #### [facility] [address] [place] [address] Dr. Christos Fallon Cholesterol in LDL [Mass/Vol] 134.6 mg/dL Normal [facility] Comment on above: Performed By: #### C MP, TSH, HSTROPN #### [facility] [address] [place] [address] Dr. Christos Fallon Cholesterol.total/Cho lesterol in HDL [Mass ratio] 3.9 {ratio} Normal [facility] Comment on above: Performed By: #### C MP, TSH, HSTROPN #### [facility] [address] [place] [address] Dr. Christos Fallon HDL NORMAL > or = 60 mg/dl - LO W CARDIOVASCULAR RISK <40 mg/dl - HIGH CARDIOVASCULAR RISK Normal [facility] Comment on above: Performed By: #### C MP, TSH, HSTROPN #### [facility] [address] [address] [address] Christos Fallon LDL CALC NORMAL SEE BELOW Normal [facility] Comment on above: Result Comment: <100 mg/dl OPTIMAL 100 - 129 mg/dl NEAR OR ABOVE OPTIMAL 130 - 159 mg/dl BORDERLINE HIGH 160 - 189 mg/dl HIGH >190 mg/dl VERY HIGH Performed By: #### C MP, TSH, HSTROPN #### [facility] [address] [address] [address] Christos Fallon Triglyceride [Mass/Vol] 187 mg/dL Critically high <=150 [facility] Comment on above: Performed By: #### C MP, TSH, HSTROPN #### [facility] [address] [address] [address] Christos Fallon VLDL CALC 37.4 mg/dL Normal [facility] Comment on above: Performed By: #### C MP, TSH, HSTROPN #### [facility] [address] [address] [address] Christos Fallon PROF 14(COMP METB)on 022 Albumin [Mass/Vol] 3.8 g/dL Normal 3.4-5.0 [facility] Comment on above: Performed By: #### C MP, TSH, HSTROPN #### [facility] [address] [address] [address] Christos Fallon Albumin/Globulin [Mass ratio] 1.1 {ratio} Normal [facility] Comment on above: Performed By: #### C MP, TSH, HSTROPN #### [facility] [address] [address] [address] Christos Fallon ALP [Catalytic activity/Vol] 77 U/L Normal 46-116 [facility] Comment on above: Performed By: #### C MP, TSH, HSTROPN #### [facility] [address] [place] [address] Dr. Christos Fallon ALT [Catalytic activity/Vol] 34 U/L Normal 14-59 [facility] Comment on above: Performed By: #### C MP, TSH, HSTROPN #### [facility] [address] [address] [address] Christos Fallon Anion gap [Moles/Vol] 11.5 mmol/L Normal [facility] Comment on above: Performed By: #### C MP, TSH, HSTROPN #### [facility] [address] [address] [address] Christos Fallon AST [Catalytic activity/Vol] 21 U/L Normal 15-37 [facility] Comment on above: Performed By: #### C MP, TSH, HSTROPN #### [facility] [address] [address] [address] Christos Fallon Bilirubin [Mass/Vol] 0.7 mg/dL Normal 0.2-1.3 [facility] Comment on above: Performed By: #### C MP, TSH, HSTROPN #### [facility] [address] [address] [address] Christos Fallon Calcium [Mass/Vol] 8.8 mg/dL Normal 8.5-10.1 [facility] Comment on above: Performed By: #### C MP, TSH, HSTROPN #### [facility] [address] [address] [address] Christos Fallon Chloride [Moles/Vol] 104 mmol/L Normal 98-107 [facility] Comment on above: Performed By: #### C MP, TSH, HSTROPN #### [facility] [address] [address] [address] Christos Fallon CO2 [Moles/Vol] 28.6 mmol/L Normal 22.0-30.0 [facility] Comment on above: Performed By: #### C MP, TSH, HSTROPN #### [facility] [address] [address] [address] Christos Fallon Creatinine [Mass/Vol] 0.88 mg/dL Normal 0.52-1.04 [facility] Comment on above: Performed By: #### C MP, TSH, HSTROPN #### [facility] [address] [place] [address] Dr. Christos Fallon EGFR-AF AUSTRIAN >60 Normal >=60 [facility] Comment on above: Performed By: #### C MP, TSH, HSTROPN #### [facility] [address] [place] [address] Dr. Christos Fallon EGFR-NON AF AUSTRIAN >60 Normal >=60 [facility] Comment on above: Performed By: #### C MP, TSH, HSTROPN #### [facility] [address] [place] [address] Dr. Christos Fallon Globulin (S) [Mass/Vol] 3.5 g/dL Normal [facility] Comment on above: Performed By: #### C MP, TSH, HSTROPN #### [facility] [address] [place] [address] Dr. Christos Fallon Glucose [Mass/Vol] 101 mg/dL Normal 74-106 [facility] Comment on above: Performed By: #### C MP, TSH, HSTROPN #### [facility] [address] [place] [address] Dr. Christos Fallon Potassium [Moles/Vol] 4.1 mmol/L Normal 3.4-5.0 [facility] Comment on above: Performed By: #### C MP, TSH, HSTROPN #### [facility] [address] [place] [address] Dr. Christos Fallon Protein [Mass/Vol] 7.3 g/dL Normal 6.1-8.2 [facility] Comment on above: Performed By: #### C MP, TSH, HSTROPN #### [facility] [address] [place] [address] Dr. Christos Fallon Sodium [Moles/Vol] 140 mmol/L Normal 137-145 [facility] Comment on above: Performed By: #### C MP, TSH, HSTROPN #### [facility] [address] [address] [address] Christos Fallon Urea nitrogen [Mass/Vol] 11.0 mg/dL Normal 7.0-18.0 [facility] Comment on above: Performed By: #### C MP, TSH, HSTROPN #### [facility] [address] [address] [address] Christos Fallon Urea nitrogen/Creatinine [Mass ratio] 12.5 mg/mg Normal [facility] Comment on above: Performed By: #### C MP, TSH, HSTROPN #### [facility] [address] [address] [address] Christos Fallon TSHon 11-19-2021 TSH 0.774 uIU/mL Normal 0.470-4.680 [facility] Comment on above: Performed By: #### C MP, TSH, HSTROPN #### [facility] [address] [place] [address] Dr. Christos Fallon TSH RANGE SEE BELOW Normal [facility] Comment on above: Result Comment: <0.3 4 UIU/ml HYPERTHYROID 0.34-5.60 UIU/ml EUTHYROID >5.60 UIU/ml HYPOTHYROID Performed By: #### C MP, TSH, HSTROPN #### [facility] [address] [place] [address] Dr. Christos Fallon XR TSPINE 2 VIEWSon [...] TAMIE GUILLERMO Date: 2021-11-19 12:49 Normal [facility] Cardiovascular Lab Reporton 11-17-2021 Cardiovascular Lab Report [facility] Patient Name: Kaila Vasquez [place] MR #: [id number] Physician: Jonny Fowler M.D. Department of Service Date: 11/17/2021 Medicine Birthdate: 1980 Division of Room #: CC Cardiology Adult Cardiovascular Services [facility] [address] [facility] [place] [address] Cardiovascular Laboratory Report PROCEDURE: Implantable loop recorder [...] subcutaneous pocket, into which was deployed a [employer] BioMonitor 3 implantable loop recorder. Via off [...] Fowler M.D. Date Trans: 11/17/2021 12:41 P/mmo [id number] cc: Mert Lama M.D. [address] [place] [phone] Normal [facility] Covid-19 PCR (CVDTBH)on SARS-CoV-2 (COVID-19) RNA LEROY+probe Ql (Unsp spec) Not detected Normal NOT DETECTED [facility] Comment on above: Result Comment: This test is not yet approved or cleared by the [place] FDA. When there are no FDA-approved or cleared tests available, and other criteria are met, FDA can make tests available under an emergency access mechanism called an Emergency Use Authorization (EUA). The EUA for this test is supported by the [place] of Health and Human Service's (HHS's) declaration [...] By: #### C MP, TSH, HSTROPN #### [facility] [address] [place] [address] Dr. Christos Fallon Covid-19 PCR (CVDTBH)on SARS-CoV-2 (COVID-19) RNA LEROY+probe Ql (Unsp spec) Not detected Normal NOT DETECTED [facility] Comment on above: Result Comment: When [...] for this test is supported by the [place] of Health and Human Service's declaration that [...] longer be used). Performed By: #### C [facility] #### [facility] [address] [place], [place] [address] Dr. Christos Fallon Cardiovascular Lab Reporton 06-17-2021 Cardiovascular Lab Report [facility] Patient Name: Christina [facility] MR #: [id number] Physician: Vishal Rogers MD Department of Service Date: 06/17/2021 Medicine Birthdate: 1980 Division of Room #: CC Cardiology Adult Cardiovascular Services [place] [address] Cardiovascular Laboratory Report COMPREHENSIVE EP STUDY AND [...] same (more content not included)... Normal [facility] FEMUR LEFT 2 [facility] 1 FEMUR LEFT 2 [facility] Department of Radiology [address] [place] [phone] ======== Patient Name: KAILA VASQUEZ : 1980 Sex: F Age: Race: White Pt. 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 Electronically signed: Gelacio Pfeiffer. Transcribed by: [email or web address], User Resident: TAVON BELCHER Electronically Signed by: GELCAIO PFEIFFER @ 01/15/2021 12:03 PM I personally read this/these film(s) with this resident Normal [facility] Comment on above: Order Comment: evalu ate Operative Reporton Operative Report MR#: [id number] [facility] Pt. Name: Kaila Vasquez Room #: 0C Discharge 12/05/2020 Date: Birthdate: 1980 OPERATIVE REPORT DATE OF SURGERY: 12/05/2020 SURGEON: Pamella Brennan M.D. PREOPERATIVE DIAGNOSIS: Left distal femur osteochondroma. POSTOPERATIVE DIAGNOSIS: Left distal femur osteochondroma. PROCEDURE PERFORMED: Left distal femur osteochondroma excision. ASSISTANT SALES MANAGER: Alaina Edouard M.D. ANESTHESIA: General endotracheal. SPECIMENS: [...] i (more content not included)... Normal [facility] FEMUR LEFT 2 [facility] 1 FEMUR LEFT 2 [facility] Department of Radiology [address] [place] [phone] ======== Patient Name: KAILA VASQUEZ : 1980 Sex: F Age: Race: White Pt. Location: OUTP Patient Status: O Ordered Date: 12/05/2020 7:30:00 AM Completed Date: 12/05/2020 10:05 AM Requesting Provider: PAMELLA BRENNAN Attending Provider: PAMELLA BRENNAN Report Copy To: Signs & Symptoms: LEFT DISTAL FEMUR OSTEOCHONDROMA EXCISION History: Comments: LEFT DISTAL FEMUR OSTEOCHONDROMA EXCISION Exam: FEMUR LEFT 2 [facility] ======== FEMUR LEFT 2 VWS 12/05/2020 10:05 [...] purposes. Electronically signed: Ching Garcia. Transcribed by: [email or web address], User Resident: Electronically Signed by: CHING GARCIA @ 12/05/2020 11:54 AM Normal [facility] Comment on above: Order Comment: LEFT DISTAL FEMUR OSTEOCHONDROMA EXCISION POC GLUCOSE LABon 12-05-2020 Glucose [Mass/Vol] 108 mg/dL High 70-100 [facility] Comment on above: Performed By: #### [id number] ####[facility] *MRSA/MSSA DNA NASALon 11-28 *MRSA/MSSA DNA NASAL Clinical Report: (D ) Specimen: NASAL SWAB Collected: 11/28/2020 13:22 Status: Final Last Updated: 2020 13:05 MSSA DNA (Final) Negative MRSA DNA (Final) Negative Normal [facility] Comment on above: Performed By: #### 3 [id number] ####[facility] [place] [address], [facility] APTTon 11-28-2020 aPTT Coag (Bld) [Time] 29.1 s Normal 25.0-35.0 [facility] Comment on above: Result Comment: ALL [...] THIS PURPOSE. Performed By: #### 5 [id number], [id number] #### [facility] [address] [place] [address], [facility] BASIC METABOLIC PANELon - Calcium [Mass/Vol] 9.5 mg/dL Normal 8.6-10.3 [facility] Comment on above: Performed By: #### 0 0071 #### [facility] [address] [place] [address], [facility] Chloride [Moles/Vol] 104 mmol/L Normal 98-107 [facility] Comment on above: Performed By: #### 0 0071 #### [facility] [address] [place] [address], [place] CO2 [Moles/Vol] 28 mmol/L Normal 21-31 [facility] Comment on above: Performed By: #### 0 0071 #### [facility] [address] [place] [address], [place] Creatinine [Mass/Vol] 0.90 mg/dL Normal 0.60-1.20 [facility] Comment on above: Performed By: #### 0 0071 #### [facility] [address] [place] [address], [place] GFR/1.73 sq M.predicted among blacks MDRD (S/P/Bld) [Vol rate/Area] mL/min/{1.73_m2} Normal >60 [facility] Comment on above: Performed By: #### 0 0071 #### [facility] [address] [place] [address], [place] GFR/1.73 sq M.predicted among non-blacks MDRD (S/P/Bld) [Vol rate/Area] mL/min/{1.73_m2} Normal >60 [facility] Comment on above: Performed By: #### 0 0071 #### [facility] [address] [place] [address], [facility] Glucose [Mass/Vol] 132 mg/dL High 70-100 [facility] Comment on above: Performed By: #### 0 0071 #### [facility] [address] [place] [address], [facility] Potassium [Moles/Vol] 3.8 mmol/L Normal 3.5-5.1 [facility] Comment on above: Performed By: #### 0 0071 #### [facility] [address] [place] [address], [facility] Sodium [Moles/Vol] 138 mmol/L Normal 136-145 [facility] Comment on above: Performed By: #### 0 0071 #### [facility] [address] [place] [address], [facility] Urea nitrogen [Mass/Vol] 9 mg/dL Normal 7-25 [facility] Comment on above: Performed By: #### 0 0071 #### [facility] [address] [place] [address], [facility] CBC W/DIFFon 11-28-2020 ABS IMM GRANS 0.0 10*3/uL Normal 0.0-0.2 [facility] Comment on above: Performed By: #### 5 0103 ####[facility] [facility] [address], [facility] ABS NEUTROPHILS 7.2 10*3/uL Normal 1.6-7.6 [facility] Comment on above: Performed By: #### 5 102 ####[facility] [facility] [address], [facility] Basophils (Bld) [#/Vol] 0.1 10*3/uL Normal 0.0-0.2 [facility] Comment on above: Performed By: #### 5 0103 ####[facility] [facility].[address] Basophils/100 WBC (Bld) 0.6 % Normal 0.0-1.0 [facility] Comment on above: Performed By: #### 5 0103 ####[facility] Eosinophils (Bld) [#/Vol] 0.3 10*3/uL Normal 0.0-0.5 [facility] Comment on above: Performed By: #### 5 3 ####[place] [id number] [address] Eosinophils/100 WBC (Bld) 2.6 % Normal 0.0-6.0 [facility] Comment on above: Performed By: #### 5 3 ####[facility] Erythrocyte distribution width (RBC) [Ratio] 12.6 % Normal 11.5-15.0 [facility] Comment on above: Performed By: #### 3 ####[facility] [facility].[address] Hematocrit (Bld) [Volume fraction] 42.6 % Normal 36.0-45.0 [facility] Comment on above: Performed By: #### 3 ####[facility] Hemoglobin (Bld) [Mass/Vol] 14.4 g/dL Normal 12.0-15.0 [facility] Comment on above: Performed By: #### 3 ####[facility] IMMATURE GRANS 0.3 % Normal 0.0-1.0 [facility] Comment on above: Performed By: #### 5 0103 ####[facility] [place] [address] Lymphocytes (Bld) [#/Vol] 2.1 10*3/uL Normal 1.2-4.0 [facility] Comment on above: Performed By: #### 5 0103 ####[facility] [place] [address] Lymphocytes/100 WBC (Bld) 20.2 % Normal 20.0-45.0 [facility] Comment on above: Performed By: #### 5 3 ####[address] MCH (RBC) [Entitic mass] 33.6 pg High 27.0-33.0 [facility] Comment on above: Performed By: #### 5 3 ####[address] MCHC (RBC) [Mass/Vol] 33.8 g/dL Normal 32.0-35.0 [facility] Comment on above: Performed By: #### 3 ####[address] MCV (RBC) [Entitic vol] 99.5 fL High 82.0-98.0 [facility] Comment on above: Performed By: #### 5 3 ####[address] Monocytes (Bld) [#/Vol] 0.7 10*3/uL Normal 0.1-1.0 [facility] Comment on above: Performed By: #### 5 3 ####[place] [address], [place] MONOS 6.4 % Normal 5.0-12.0 [facility] Comment on above: Performed By: #### 5 0103 ####[facility] [place] [address], [facility] Neutrophils/100 WBC (Bld) 69.9 % Normal 40.0-72.0 [facility] Comment on above: Performed By: #### 5 0103 ####[facility] Nucleated RBC/100 WBC (Bld) [Ratio] 0 % Normal 0-0 [facility] Comment on above: Performed By: #### 5 0103 ####[facility] PLAT CNT 346 10*3/uL Normal 150-400 [facility] Comment on above: Performed By: #### 5 0103 ####[facility] [place] [address], [facility] RBC (Bld) [#/Vol] 4.28 10*6/uL Normal 3.80-5.00 [facility] Comment on above: Performed By: #### 5 0103 ####[facility] [place] [address], [facility] WBC (Bld) [#/Vol] 10.24 10*3/uL Normal 4.00-10.60 [facility] Comment on above: Performed By: #### 5 0103 ####[facility] PROTHROMBIN TIMEon 1 INR Coag (PPP) [Relative time] 0.99 {INR} Normal 0.91-1.16 [facility] Comment on above: Result Comment: ACCC [...] CHEST 1995;108:231S-246S. Performed By: #### 5 7307, 25284 #### [facility] [address] [place] [address], [facility] PT Coag (PPP) [Time] 13.1 s Normal 12.3-14.8 [facility] Comment on above: Result Comment: ALL RESULTS MUST BE INTERPRETED WITH RESPECT TO BLOOD DRAWING ARTIFACT OR DILUTION ERROR OF ANTICOAGULANT AT THE TIME OF SAMPLING. Performed By: #### 5 7307, 35035 #### [facility] [address] [place] [address], [facility] TYPE AND CROSSMATCHon 2020 ABO INTERPRETATION O Normal [facility] Comment on above: Performed By: #### 6 2594 #### [facility] [address] [place] [id number], [facility] RH INTERPRETATION Positive Normal [facility] Comment on above: Performed By: #### 6 2594 #### [facility] [address] [place] [address], [facility] URINALYSISon 11-28-2020 Appearance (U) CLEAR Normal CLEAR [facility] Comment on above: Performed By: #### 1 0008 #### [facility] [address] [place] [address], [facility] Bilirubin Ql (U) Negative Normal NEGATIVE [facility] Comment on above: Performed By: #### 1 0008 #### [facility] [address] [place] [address], [place] Color (U) YELLOW Normal YELLOW [facility] Comment on above: Performed By: #### 1 0008 #### [facility] [address] [place] [address], [facility] Glucose Ql (U) Negative Normal NEGATIVE [facility] Comment on above: Performed By: #### 1 0008 #### [facility] [address] [facility] [place] [address], [facility] Hemoglobin Ql (U) Negative Normal NEGATIVE [facility] Comment on above: Performed By: #### 1 0008 #### [facility] [address] [place] [address], [facility] KETONE Negative Normal NEGATIVE [facility] Comment on above: Performed By: #### 1 0008 #### [facility] [address] [facility] [address], [facility] LEUK JORDAN Negative Normal NEGATIVE [facility] Comment on above: Performed By: #### 1 0008 #### [facility] [address] [place] [address], [facility] MICRO NOT DONE Normal [facility] Comment on above: Result Comment: Micr oscopics not performed on urines with negative chemical reactions unless requested in original order Performed By: #### 1 0008 #### [facility] [address] [facility] [address], [place] Nitrite Ql (U) Negative Normal NEGATIVE [facility] Comment on above: Performed By: #### 1 0008 #### [facility] [address] [place] [address], [facility] pH (U) 6.0 [pH] Normal 5.0-8.0 [facility] Comment on above: Performed By: #### 1 0008 #### [facility] [address] [place] [address], [facility] Protein Ql (U) Negative Normal NEGATIVE [facility] Comment on above: Performed By: #### 1 0008 #### [facility] [address] [place] [address], [facility] SPEC GRAV 1.018 Normal 1.015-1.020 [facility] Comment on above: Performed By: #### 1 0008 #### [facility] [address] [place], [place] [id number] [place] [address] Vital Signs Date Time Vital Sign Value Performing Clinician Gabinoi karine 08-24-2022 13:44-0500 Body height 162.6 cm Janell Sy MD Work Phone: [facility] 08-24-2022 13:44-0500 Body weight 112.95 kg Janell Sy MD Work Phone: [facility] 08-24-2022 13:44-0500 Diastolic blood pressure 73 mm[Hg] Janell Sy MD Work Phone: [facility] 08-24-2022 13:44-0500 Heart rate 88 /min Janell Sy MD Work Phone: [facility] 08-24-2022 13:44-0500 SaO2% (BldA) [Mass fraction] 98 % Janell Sy MD Work Phone: [facility] 08-24-2022 13:44-0500 Systolic blood pressure 112 mm[Hg] Janell Sy MD Work Phone: [facility] 08-05-2022 10:00-0500 Diastolic blood pressure 88 mm[Hg] Carmen Johnson PT Work Phone: [facility] 08-05-2022 10:00-0500 Heart rate 78 /min Carmen Johnson PT Work Phone: [facility] 08-05-2022 10:00-0500 Systolic blood pressure 134 mm[Hg] Carmen Johnson PT Work Phone: [facility] 07-07-2022 08:12-0500 Body height 162.6 cm Glenroy Syed TOWER DIRECTOR.THERAPIST OCCUPATIONAL Work Phone: [facility] 07-07-2022 08:12-0500 Body weight 112.04 kg Glenroytoan Syed TOWER DIRECTOR.THERAPIST OCCUPATIONAL Work Phone: [facility] 07-07-2022 08:12-0500 Diastolic blood pressure 88 mm[Hg] Glenroy Poulhal TOWER DIRECTOR.THERAPIST OCCUPATIONAL Work Phone: [facility] 07-07-2022 08:12-0500 Heart rate 82 /min Glenroy Syed TOWER DIRECTOR.THERAPIST OCCUPATIONAL Work Phone: [facility] 07-07-2022 08:12-0500 SaO2% (BldA) [Mass fraction] 98 % Glenroy Syed TOWER DIRECTOR.THERAPIST OCCUPATIONAL Work Phone: [facility] 07-07-2022 08:12-0500 Systolic blood pressure 134 mm[Hg] Glenroy Syed TOWER DIRECTOR.THERAPIST OCCUPATIONAL Work Phone: [facility] 12-09-2021 13:59-0400 Blood Pressure Location Pamella SANABRIA [facility] 12-09-2021 13:59-0400 Diastolic blood pressure 78 mm[Hg] Pamella SANABRIA [facility] 12-09-2021 13:59-0400 Heart rate 68 /min Pamella ZIMMERMANL [facility] 12-09-2021 13:59-0400 Respiratory rate 16 /min Pamella ZIMMERMANL [facility] 12-09-2021 13:59-0400 Systolic blood pressure 118 mm[Hg] Pamella NILL [facility] Encounters Encounter Date Encounter Type Care Provider Facility Start: 01-31-2024 ambulatory [facility] Start: 01-24-2024 ambulatory JONNY MUNGUIAUBB [facility] Start: 12-19-2023 End: 12-20-2023 ambulatory Cristiane Gutiérrez Facility:[facility] Start: 12-02-2023 ambulatory [facility] Start: 10-25-2023 End: 10-25-2023 ambulatory IRMA CHUNGO Not Available Start: 08-25-2023 End: 08-25-2023 ambulatory IRMA SUDHA Not Available Start: 10-15-2022 Orders Only Glenroy Syed TOWER DIRECTOR.THERAPIST OCCUPATIONAL Work Phone: Neurology Comment on above: 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 (Primary Dx) Start: 10-14-2022 End: 10-14-2022 ambulatory GLENROY SYED Facility:[facility] Start: 09-09-2022 ambulatory Mauri Ross RT(R) Ra soto Comment on above: Radiology MRI Start: 09-09-2022 Patient encounter procedure Mauri oRss RT(R) RONALDO EASON Start: 09-02-2022 End: 09-02-2022 ambulatory ELENA GUAN Facility: Start: 08-24-2022 End: 08-24-2022 ambulatory GLENROY SYED Facility:[facility] Start: 08-24-2022 End: 08-24-2022 Patient encounter procedure Janell Sy MD Work Phone: Cardiology Comment on above: KANG (obstructive sle ep apnea) (Primary Dx); Dizziness; Palpitations; Obesity, morbid, BMI 40.0-49.9 (HCC); SVT (supraventricular tachycardia) (HCC); Chronic fatigue; Vitamin D deficiency Start: 08-20-2022 Orders Only Len Shea TOWER DIRECTOR.THERAPIST OCCUPATIONAL Work Phone: Neurology Comment on above: Ocular migraine (Dinora andres Dx) Start: 08-19-2022 End: 08-19-2022 ambulatory [facility] Neurology Comment on above: Neuro Ophthalmologis t Start: 08-16-2022 ambulatory [facility] Neurology Comment on above: MRI Start: 08-12-2022 End: 08-12-2022 ambulatory GLENROY SYED Facility:[facility] Start: 08-12-2022 End: 08-12-2022 ambulatory Carmen Seese PT Work Phone: Physical Therapy Comment on above: Dizziness (Primary D x); Cervicalgia; Headaches Start: 08-05-2022 End: 08-05-2022 ambulatory GLENROY SYED Facility:[facility] Start: 08-05-2022 End: 08-05-2022 ambulatory Carmen Seese PT Work Phone: Physical Therapy Comment on above: Dizziness (Primary D x); Cervicalgia; Headaches Start: 07-29-2022 End: 07-29-2022 ambulatory WM RODRIGUEZ Facility:[facility] Start: 07-21-[address] MERT LAMA Facilit y:[facility] Start: 07-07-2022 Telephone encounter Glenroy rodriguez TOWER DIRECTOR.THERAPIST OCCUPATIONAL Work Phone: Neurology Comment on above: Received Outside Med ical Records Start: 07-07-2022 End: 07-07-2022 ambulatory GLENROY SYED Facility:[facility] Start: 07-07-2022 End: 07-07-2022 Patient encounter procedure Glenroy Yvonnehal TOWER DIRECTOR.THERAPIST OCCUPATIONAL Work Phone: Neurology Comment on above: Dizziness [...] Facility:[facility] Start: 03-03-2022 End: 03-03-2022 ambulatory WM RODRIGEUZ Facility:[facility] Start: 02-26-2022 End: 02-26-2022 ambulatory WM RODRIGUEZ Facility:[facility] Start: 01-31-2022 End: 01-31-[address] PEG AGUIRRE Facility:[facility] Start: 12-30-2021 End: 12-30-[address] PAMELLA SANABRIA Facility:[facility] Start: 12-09-2021 End: 12-09-2021 Patient encounter procedure Pamella SANABRIA General Surgery [facility] Start: 11-25-2021 End: 11-26-[address] MERT LAMA Facility:[facility] Start: 11-23-2021 Encounter for genera l adult medical examination without abnormal findings DR MERT LAMA [facility] Start: 11-19-2021 End: 11-20-[address] MERT LAMA Facility:[facility] Start: 11-19-2021 End: 11-20-2021 Encounter for general adult medical examination without abnormal findings DR MERT LAMA Facility:[facility] Start: 11-17-2021 End: 11-18-2021 ambulatory MERT LAMA Facility:[facility] Start: 11-14-2021 End: 11-15-2021 ambulatory ANU CABAN Facility:[facility] Start: 10-08-2021 End: 10-08-2021 ambulatory WM RODRIGUEZ Facility:[facility] Start: 06-17-2021 End: 06-18-2021 ambulatory MERT LAMA Facility:[facility] Start: 04-16-2021 End: 05-23-2021 ambulatory MERT LAMA Facility:[facility] Start: 12-05-2020 End: 12-06-2020 ambulatory MERT LAMA Facility:[facility] Procedures Date Procedure Procedure Detail Performing Clinician Start: 08-24-2022 Ecg routine ecg w/le ast 12 lds i&r only [facility] Provider Start: 12-05-2020 ANESTH KNEE AREA SURGERY MERT LAMA Start: 12-05-2020 REMOVE FEMUR LESION CARLOS HAEL P MIKA Start: 11-28-2020 Antibody screen MERT ORTIZ Comment on above: Performed By: #### 6 2594 #### [address] Start: 11-04-2020 Cystourethroscopy wi th dilation of urethral stricture Pamella SANABRIA Abdominal hysterectomy Wale SANABRIA Bilateral complete salpingectomy Pamella SANABRIA Cardiac radiofrequen cy ablation using ultrasound guidance Pamella SANABRIA Cholecystectomy Pamella SANABRIA Excision of osteochondroma Nestor SANABRIA History of ankle surgery Carlos SANABRIA Plan of Treatment Date Care Activity Detail Author Start: 08-08-2022 DEPRESSION ASSESSMENT DEPRESSION ASS [facility] Start: 07-07-2022 End: 09-06-2022 25-hydroxyvitamin D3 [Mass/volume] in Serum or Plasma [facility] Work Phone: Comment on above: Expected: 07/07/2022 , Expires: 09/06/2022 Start: 07-07-2022 End: 09-06-2022 ESEQUIEL BY IFA WITH REFLEX [facility] Work Phone: Comment on above: Expected: 07/07/2022 , Expires: 09/06/2022 Start: 04-08-2022 Influenza vaccination INFLUENZA (#1) [facility] Start: 08-08-2021 DEPRESSION ASSESSMENT DEPRESSION ASS [facility] Start: 11-05-2020 COVID-19 VACCINE (3 - Booster for Giancarlo series) COVID-19 VACCINE (3 - Booster for Giancarlo series) [facility] Start: 2012 HPV TESTING HPV TESTING [facility] Start: 11-30-2003 PAP TESTING PAP TESTING [facility] Start: 2001 Urine microalbumin profile DTA P,TDAP,TD (1 - Tdap) [facility] Start: 2000 HEPATITIS C SCREENING HEPATITIS C SC PARKER [facility] Start: 2000 HIV SCREENING HIV SCREENING [facility] Start: 1982 HEPATITIS B (1 of 3 - 3-dose series) HEPATITIS B (1 of 3 - 3-dose series) [facility] End: 08-24-2023 ECG COMPLETE ECG COMPLETE ECG Routine Dizziness Palpitations Obesity, morbid, BMI 40.0-49.9 ([facility]) 1 Occurrences starting 08/24/2022 until 08/24/2023 [facility] Work Phone: Comment on above: 1 Occurrences starti ng 08/24/2022 until 08/24/2023 ECG COMPLETE ECG COMPLETE ECG 08/24/2022 1:56 PM EST [facility] End: 07-07-2023 Echocardiography ECHO Cardiology Routine Palpitations 1 Occurrences starting 07/07/2022 until 07/07/2023 [facility] Work Phone: Comment on above: 1 Occurrences starti ng 07/07/2022 until 07/07/2023 End: 08-06-2023 Mri brain brain stem w/o w/contrast material MRI BRAIN WO/W IVCON Radiology Routine Dizziness Vision changes 1 Occurrences starting 07/07/2022 until 08/06/2023 [facility] Work Phone: Comment on above: 1 Occurrences starti ng 07/07/2022 until 08/06/2023 End: 09-15-2023 Mri spinal canal cervical w/o & w/contr matrl MRI CERVICAL SPINE WO/W IVCON Radiology Routine Dizziness Vision changes Cervicalgia Disturbance of skin sensation 1 Occurrences starting 08/16/2022 until 09/15/2023 [facility] Work Phone: Comment on above: 1 Occurrences starti ng 08/16/2022 until 09/15/2023 [facility] Immunizations Immunization Date Immunization Notes Care Provider Tayo cullen 09-10-2020 SARS-CoV-2 (COVID-19 ) Ad26 vaccine, recombinant Pamella NILL [facility] [place] 08-12-2020 SARS-CoV-2 (COVID-19 ) Ad26 vaccine, recombinant Pamella NILL [facility] [place] Payers Date Payer Category Payer Unknown [id number] 2021 Unknown [id number] 1982 Unknown [id number] 2.16.8 40.1.564558.3.579.2.647 1982 Unknown [id number] 2.16.8 40.1.463472.3.579.2.647 1982 Unknown [id number] 2.16.8 40.1.393257.3.579.2.647 1982 Unknown [id number] 2.16.8 40.1.882438.3.579.2.647 1982 Unknown [id number] 2.16.84 0.1.031071.3.579.2.593 1982 Unknown [id number] 2.16.84 0.1.969013.3.579.2.593 1982 Unknown [id number] 2.16.84 0.1.577810.3.579.2.593 1982 Unknown [id number] 2.16.84 0.1.190370.3.579.2.593 1982 Unknown [id number] 2.16.84 0.1.846398.3.579.2.593 1982 Unknown [id number] 2.16.84 0.1.537789.3.579.2.593 1982 Unknown [id number] 2.16.84 0.1.870711.3.579.2.593 1982 Unknown [id number] 2.16.84 0.1.988518.3.579.2.593 1982 Unknown [id number] 2.16.84 0.1.204486.3.579.2.593 1982 Unknown [id number] 2.16.84 0.1.288063.3.579.2.593 1982 Unknown [id number] 2.16.84 0.1.126787.3.579.2.593 1982 Unknown [id number] 2.16.84 0.1.847595.3.579.2.593 1982 Unknown [id number] 2.16.84 0.1.625652.3.579.2.593 1982 Unknown [id number] 2.16.84 0.1.376086.3.579.2.593 1982 Unknown [id number] 2.16.84 0.1.219505.3.579.2.593 1982 Unknown [id number] 2.16.84 0.1.341291.3.579.2.1259 1982 Unknown [id number] 2.16.84 0.1.971676.3.579.2.1259 1982 Unknown [id number] 2.16.8 40.1.476596.3.579.2.727 1959 Unknown [id number] Social History Date Type Detail Facility Start: 12-09-2021 End: 07-07-2022 Tobacco smoking status Never smoked tobacco (finding) [facility] Tobacco smoking status Never [facility] Sex Assigned At Female [facility] Start: 07-07-2022 Tobacco use and exposure Smokeless tobacco non-user [facility] Start: 1980 Sex Assigned At Not on file [facility] Start: 06-27-2022 End: 07-07-2022 Exposure to SARS-CoV-2 (event) Not sure [facility] Start: 08-24-2022 Alcohol intake Current drinke r of alcohol (finding) [facility] Start: 08-24-2022 Alcohol Comment occasionally 1 -2 times a months 2-3 drinks [facility] Clinical Notes 12-30-2021 to 10-14-2022 RT [place](R) - 09/09/2022 2:11 PM Marilyn Sy MD - 08/24/2022 1:45 PM ESTTelephone Encounter - Glenroy Syed, TOWER DIRECTOR.THERAPIST OCCUPATIONAL - 08/16/2022 8:28 AM Elio Johnson PT - 08/12/2022 2:51 PM EST Note Date & Type Note Facility 10-14-2022 Note HNO ID: [id number] Author: RT Mary(R) Service: ? Author Type: [...] RT Mary(R) October 14, 2022 4:[address] [facility] 10-14-2022 Note HNO ID: [id number] Author: Papa Rea RN Service: Radiology Author [...] DATE: October 14, 2022 TIME: 3:[address] [facility] 09-09-2022 Note HNO ID: [id number] Author: RT Odessa(R) Service: ? Author Type: [...] 09, 2022 TIME: 2:11 PM PAGER/CONTACT #: [facility] 09-09-2022 History of Present illness Narrative [...] PM PAGER/CONTACT #: documented in this encounter [facility] 08-24-2022 Note HNO ID: [id number] Author: Janell Sy MD Service: ? Author Type: Physician Type: Progress Notes Filed: 08/24/2022 2:17 PM Note Text: [facility] [place] SECTION OF REGIONAL CARDIOLOGY OUTPATIENT VISIT DATE [...] Cardiac work-up includes: Echocardiogram on 05/19/2020 at [facility] showed normal ejection fraction. No valvular [...] ECG COMPLETE 4. Obesity, morbid, BMI 40.0-49.9 ([facility]) E66.01 ECG COMPLETE 5. SVT (supraventricular tachycardia) ([facility]) I47.1 6. Chronic fatigue R53.82 7. Vitamin [...] Never Vaping U (more content not included)... [facility] 08-24-2022 History of Present illness Narrative Images from the original note were not included. [facility] [place] SECTION OF REGIONAL CARDIOLOGY OUTPATIENT VISIT DATE [...] Cardiac work-up includes: Echocardiogram on 05/19/2020 at [facility] showed normal ejection fraction. No valvular [...] ECG COMPLETE 4. Obesity, morbid, BMI 40.0-49.9 ([facility]) E66.01 ECG COMPLETE 5. SVT (supraventricular tachycardia) ([facility]) I47.1 6. Chronic fatigue R53.82 7. Vitamin [...] PVC (premature ventricular contraction) SVT (supraventricular tachycardia) ([facility]) Vitamin D deficiency No past surgical history [...] twice daily.^Disp: ^Rfl: documented in this encounter [facility] 08-19-2022 Note HNO ID: [id number] Author: Mauri Chun OD Service: ? Author Type: ASSOCIATE PROFESSOR OF ART Type: Progress Notes Filed: 08/19/2022 10:22 AM Note Text: Ocular health is unremarkable with no abnormalities. Normal ON appearance Ophthalmic migraines Glasses Rx given with slight prism [facility] 08-16-2022 Miscellaneous Notes signed We can add it to fully evaluate her symptoms. -LP documented in this encounter [facility] 08-12-2022 Note HNO ID: [id number] Author: Carmen Johnson, PT Service: ? Author [...] Observations R Cervical Spine Palpation Tenderness: Upper trapezius;Scalenes;Sternocleidomas toid;Suboccipitals L Cervical Spine Palpation Tenderness: Upper trapezius;Suboccipitals [...] Time Minutes (timed/untimed): 60 Carmen Johnson, PT [facility] 08-12-2022 History of Present illness Narrative [...] Observations R Cervical Spine Palpation Tenderness: Upper trapezius;Scalenes;Sternocleidomas toid;Suboccipitals L Cervical Spine Palpation Tenderness: Upper trapezius;Suboccipitals [...] Carmen Johnson PT documented in this encounter [facility] 08-05-2022 Note HNO ID: [id number] Author: Carmen Johnson PT Service: ? Author [...] Planned: 8 Planned Treatment Interventions: Therapeutic exercise (91481);Neuromuscular re-education (41875);Manual therapy (18500);Therapeutic activities (67895);Self-fci management (48609);Patient/Family/Caregiver Education;Gait Training (76114);Canalith Repositioning Maneuvers (20036) PLAN FOR NEXT VISIT: Detailed neck exam [...] Premature atrial contra (more content not included)... [facility] 08-05-2022 History of Present illness Narrative [...] Planned: 8 Planned Treatment Interventions: Therapeutic exercise (44985);Neuromuscular re-education (11924);Manual therapy (52626);Therapeutic activities (72302);Self-fci management (82720);Patient/Family/Caregiver Education;Gait Training (37405);Canalith Repositioning Maneuvers (81109) PLAN FOR NEXT VISIT: Detailed neck exam [...] present Head Shake: Negative Positional Testing Right Amboy-Hallpike: No nystagmus;Asymptomatic Left Juan-Hallpike: No nystagmus;Asymptomatic Right Nylen Barany: No nystagmus;Asymptomatic [...] treatment room today Education: Education Learning Preferences: Demonstration;Explanation;Performa nce;Printed Materials Barriers: None Learning/educational needs: Safety;Home exercise program;Plan of Care;Changes in Plan of Care Education Provided: Yes, see treatment interventions for education provided Education Provided To: Patient Education Mode/Type: Demonstration;Explanation/Discussi on;Literature/Printed Materials;Performance;Teach Back Response to Education/Teach Back: States/Identifies;Return Demonstration;Requires Review/Additional Education TREATMENT: PT Treatment Interventions: Self-Senior Care Management;Therapeutic Exercise Evaluation Therapeutic Exercise: 1: c/s retractions x 10, cues for technique Skilled Intervention: Patient was educated in proper exercise technique and purpose for exercises. Patient education as noted. Self-Senior Care Management: 1: Educated regarding potential multifactorial cause [...] Carmen Johnson PT documented in this encounter [facility] 07-07-2022 Note HNO ID: [id number] Author: Gelnroy Syed APRN.THERAPIST OCCUPATIONAL Service: ? Author Type: Nurse Practitioner Type: Progress Notes Filed: 07/07/2022 12:28 PM Note Text: [facility] General Neurology New Patient Evaluation CHIEF [...] over a month. 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 A couple times a month she gets [...] for 1 dose.N (more content not included)... [facility] 07-07-2022 Miscellaneous Notes Noted. Provider notified. Received medical records from [facility]. Uploaded to chart and forwarded for review. documented in this encounter [facility] 07-07-2022 Instructions Glenroy Syed APRN.SARIKA - 07/07/2022 9:06 AM EST Plan: Baseline labs MRI Brain for multiple symptoms ECHO for palpitations and arrhythmias Aspirin 81mg daily in the setting of known arrhythmias Consult to [place] for dizziness Consult to Cardiology for second opinion Consult to ophthalmology Follow up after testing documented in this encounter [facility] 07-07-2022 History of Present illness Narrative Images from the original note were not included. [facility] General Neurology New Patient Evaluation CHIEF [...] over a month. 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 A couple times a month she gets [...] Finger Abduction (U) 5 Finger Abduction 5 Soda Room Operator 5 Soda Room Operator 5 Right Lower Extremity: (of 5) Left [...] over a month. 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 A couple times a month she gets [...] VT reccommended. Patient wanting second opinion from day trader within the [facility], referral placed. Unlikely autonomic dysfunction with unremarkable tilt and orthostatic vitals in office unconvincing (did not take BB today). Additionally, with visual changes, recommended seeing neuro call center rn. Will obtain additional labs as well. Follow [...] which included preparing to see the patient, [id number] patient care, completing clinical documentation, obtaining and/or reviewing separately obtained history, performing a medically appropriate examination, counseling and educating the patient/family/caregiver, ordering medications, tests, or procedures, and care coordination (not separately reported). Glenroy Syed APRN.CNP [facility] General Neurology [address] [place] [address] Appointment: [phone] In regards to blood work, testing, and [...] your PCP/referring physician documented in this encounter [facility] 03-16-2022 Note EXAM: CHEST 2 VIEWS [...] authenticated by: BETTY MORALES Date: 2022-03-16 18:13 [facility] 12-30-2021 Note [facility] [place], [place] NAME: KAILA VASQUEZ DATE OF : MEDICAL REC#: [id number] MOBILITY ENGINEER: [address] [facility], TRANS[facility]MIT DATE: 12/30/2021 09:02:00 PRIVATE CHEF DATE: 12/30/2021 21:00 DICTATING PHYSICIAN: PAMELLA SANABRIA [...] DR PAMELLA SANABRIA . 01/06/2022 08:31:00 [facility] Evaluation + Plan note No data available for this section General Surgery [place] Evaluation note Diagnosis Dizziness- Primary Dizziness and giddiness Migraine aura without headache Migraine with aura, without mention of intractable migraine without mention of status migrainosus Palpitations Chronic fatigue Other malaise and fatigue Vision changes Unspecified visual disturbance Disturbance of skin sensation [facility] Dizziness- Primary Dizziness and giddiness Cervicalgia Headaches [facility] Diagnosis Dizziness- Primary Dizziness and giddiness Cervicalgia Headaches [facility]* Diagnosis Cervicalgia- Primary Dizziness Dizziness and giddiness Vision changes Unspecified visual disturbance Disturbance of skin sensation [facility]* Diagnosis Ocular migraine- Primary Other forms of migraine, without mention of intractable migraine without mention of status migrainosus [facility] Diagnosis KANG (obstructive sleep apnea)- Primary Obstructive sleep apnea (adult) (pediatric) Dizziness Dizziness and giddiness Palpitations Obesity, morbid, BMI 40.0-49.9 (HCC) Morbid obesity SVT (supraventricular tachycardia) ([facility]) Other specified cardiac dysrhythmias Chronic fatigue Other malaise and fatigue Vitamin D deficiency Unspecified vitamin D deficiency [facility] Diagnosis Degeneration of intervertebral disc of cervical region with osteophyte of cervical vertebra- Primary documented in this encounter [facility] Discharge instructions No data available for this section General Surgery [place] Reason for referral (narrative)* Outpatient Procedure (Routine) - Authorized Specialty Diagnoses / Procedures Referred By Contac t Referred To [facility] Diagnoses Dizziness Palpitations Obesity, morbid, BMI 40.0-49.9 ([facility]) Procedures ECG COMPLETE ECG ROUTINE ECG W/LEAST 12 LDS W/I&R Janell Sy MD [address] [place] [address] [facility] [place] [address] [place] [address] Referral ID Status Reason Start Date Expiration Date Visits Requested Visits Authorized [id number] Authorized Auto-Generat ed Referral 08/24/2022 08/24/2023 1 1 [facility] Summary Purpose Family History No Family [...] By Contac t Referred To Contact [facility] [place] Diagnoses Degeneration of intervertebral disc of cervical region with osteophyte of cervical vertebra Procedures CONSULT TO [facility] OFFICE/OUTPATIENT [facility] 60-74 MINUTES Glenroy Syed, TOWER DIRECTOR.THERAPIST OCCUPATIONAL [address] [place] [address] Referral ID Status Reason Start Date Expiration Date Visits Requested Visits Authorized [id number] Authorized PCP Requested Referral 10/15/2022 10/15/2023 1 1 Specialty Diagnoses / Procedures Referred By Contac t Referred To Contact Ophthalmology Diagnoses Ocular migraine Procedures CONSULT TO OPHTHALMOLOGY OFFICE/OUTPATIENT [facility] 60-74 MINUTES Len Shea, TOWER DIRECTOR.THERAPIST OCCUPATIONAL [address] [facility] [id number] [place] [address] Josefina Grimes MD [address] [place] [address] Referral ID Status Reason Start Date Expiration Date Visits Requested Visits Authorized [id number] Authorized PCP Requested Referral 08/20/2022 08/20/2023 1 1 Specialty Diagnoses / Procedures Referred By Contac t Referred To Contact Cardiology Diagnoses Dizziness Palpitations Procedures CONSULT TO CARDIOLOGY OFFICE/OUTPATIENT [facility] 60-74 MINUTES Glenroy Syed, TOWER DIRECTOR.THERAPIST OCCUPATIONAL [address] [place] [id number] Referral ID Status Reason Start Date Expiration Date Visits Requested Visits Authorized [id number] Authorized PCP Requested Referral 2 07/07/2023 1 1 Specialty Diagnoses / Procedures Referred By Contac t Referred To Contact MR IMAGING Diagnoses Dizziness Vision changes Procedures MRI BRAIN WO/W IVCON MRI BRAIN BRAIN STEM W/O W/CONTRAST MATERIAL Glenroy Syed, TOWER DIRECTOR.THERAPIST OCCUPATIONAL [address] [place] [id number] [facility] Referral ID Status Reason Start Date Expiration Date Visits Requested Visits Authorized [id number] Authorized Auto-Generat ed Referral 2 08/21/2022 1 1 Specialty Diagnoses / Procedures Referred By Contac t Referred To Contact Ophthalmology Diagnoses Vision changes Procedures CONSULT TO OPHTHALMOLOGY OFFICE/OUTPATIENT [facility] 60-74 MINUTES Glenroy Syed, TOWER DIRECTOR.THERAPIST OCCUPATIONAL [address] [place] [address] Josefina Grimes MD [address] [place] [id number] Referral ID Status Reason Start Date Expiration Date Visits Requested Visits Authorized [id number] Authorized PCP Requested Referral 2 07/07/2023 1 1 Specialty Diagnoses / Procedures Referred By Contac t Referred To Contact [facility] Diagnoses Palpitations Procedures ECHO ECHO TTHRC R-T 2D W/WOM-MODE COMPL SPEC&COLR D Glenroy Syed, TOWER DIRECTOR.THERAPIST OCCUPATIONAL [address] [place] [phone] [facility] [place] [address] [place] [address] Referral ID Status Reason Start Date Expiration Date Visits Requested Visits Authorized [id number] Authorized Auto-Generat ed Referral 2 07/07/2023 1 1 Additional Source Comments INFORMATION SOURCE (unrecogn ized section and content) DATE CREATED AUTHOR 11/24/2021 [facility] DATE CREATED AUTHOR AUTHOR'S ORGANIZ ATION 07/20/2022 [facility] DATE CREATED AUTHOR AUTHOR'S ORGANIZ ATION 09/06/2022 [facility] DATE CREATED AUTHOR AUTHOR'S ORGANIZ ATION 10/16/[address] [facility] DATE CREATED AUTHOR AUTHOR'S ORGANIZ ATION 10/26/2023 [facility] DATE CREATED AUTHOR AUTHOR'S ORGANIZ ATION 01/04/2024 [facility] DATE CREATED AUTHOR AUTHOR'S ORGANIZ ATION 02/01/2024 [facility] Source Comments (unrecognize d section and content) In the event this informatio n is protected by the Federal Confidentiality of Alcohol and Drug Abuse Patient Records regulations: The Federal rules restrict any use of the information to criminally investigate or prosecute any alcohol or drug abuse patient.[facility] the event this information is protected by the Federal Confidentiality of Alcohol and Drug Abuse Patient Records regulations: The Federal rules restrict any use of the information to criminally investigate or prosecute any alcohol or drug abuse patient.[facility] the event this information is protected by the Federal Confidentiality of Alcohol and Drug Abuse Patient Records regulations: The Federal rules restrict any use of the information to criminally investigate or prosecute any alcohol or drug abuse patient.[facility] the event this information is protected by the Federal Confidentiality of Alcohol and Drug Abuse Patient Records regulations: The Federal rules restrict any use of the information to criminally investigate or prosecute any alcohol or drug abuse patient.[facility] the event this information is protected by the Federal Confidentiality of Alcohol and Drug Abuse Patient Records regulations: The Federal rules restrict any use of the information to criminally investigate or prosecute any alcohol or drug abuse patient.[facility] the event this information is protected by the Federal Confidentiality of Alcohol and Drug Abuse Patient Records regulations: The Federal rules restrict any use of the information to criminally investigate or prosecute any alcohol or drug abuse patient.[facility] the event this information is protected by the Federal Confidentiality of Alcohol and Drug Abuse Patient Records regulations: The Federal rules restrict any use of the information to criminally investigate or prosecute any alcohol or drug abuse patient.[facility] the event this information is protected by the Federal Confidentiality of Alcohol and Drug Abuse Patient Records regulations: The Federal rules restrict any use of the information to criminally investigate or prosecute any alcohol or drug abuse patient.[facility] the event this information is protected by the Federal Confidentiality of Alcohol and Drug Abuse Patient Records regulations: The Federal rules restrict any use of the information to criminally investigate or prosecute any alcohol or drug abuse patient.[facility] the event this information is protected by the Federal Confidentiality of Alcohol and Drug Abuse Patient Records regulations: The Federal rules restrict any use of the information to criminally investigate or prosecute any alcohol or drug abuse patient.[facility] Reason for Visit (unrecogniz ed section [...] NEW RS PT VESTIBULAR DIZZY Glenroy Syed, TOWER DIRECTOR.THERAPIST OCCUPATIONAL [address] [place] [address] SeeCarmen vazquez, PT [address] [place] [address] Referral ID Status Reason Start Date Expiration Date Visits Re quested Visits Authorized [id number] Closed 08/08/2021 08/07/2022 30 30 Reason Comments Physical Therapy Specialty Diagnoses / Procedures Referred By Contac t Referred To Contact PHYSICAL THERAPY Diagnoses Dizziness Procedures Physical Therapy lGenroy Syed, TOWER DIRECTOR.THERAPIST OCCUPATIONAL [address] [place] [address] [place] [facility] [address] [place] [address] Referral ID Status Reason Start Date Expiration Date V isits Requested Visits Authorized [id number] Pending Review 08/12/2022 11/10/2022 1 1 Reason Comments Establish Care Palpitations Dizziness Specialty Diagnoses / Procedures Referred By Contac t Referred To Contact Cardiology Diagnoses Dizziness Palpitations Procedures CONSULT TO CARDIOLOGY OFFICE/OUTPATIENT [facility] MDM 60-74 MINUTES Glenroy Syed, TOWER DIRECTOR.THERAPIST OCCUPATIONAL [address] [place] [address] Referral ID Status Reason Start Date Expiration Date V isits Requested Visits Authorized [id number] Closed PCP Requested Referral 07/07/2022 07/07/2023 1 1 Reason Comments Radiology MRI Care Teams (unrecognized sec tion and content) Tarp Repairer Relationship Specialty Start Date End Date Mert Lama MD [address] [place] [address] Referring Family Medicine 06/10/22 Tarp Repairer Relationship Specialty Start Date End Date Mert Lama MD [address] [place] [address] Referring Family [facility] 06/10/22 Tarp Repairer Relationship Specialty Start Date End Date Mert Lama MD [address] [place] [address] Referring Family [facility] 06/10/22 Tarp Repairer Relationship Specialty Start Date End Date Mert Lama MD [address] [place] [address] Referring Family Medicine 06/10/22 Tarp Repairer Relationship Specialty Start Date End Date Mert Lama MD [address] [place] [address] Referring Family [facility] 06/10/22 Tarp Repairer Relationship Specialty Start Date End Date Mert Lama MD [address] [address] Referring Family [facility] 06/10/22 Tarp Repairer Relationship Specialty Start Date End Date Mert Lama MD [address] [place] [address] Referring Family [facility] 06/10/22 Tarp Repairer Relationship Specialty Start Date End Date Mert Lama MD [address] [place] [address] Referring [facility] 06/10/22 FOR RECORDS PERTAINING TO PATIENTS WHO [...] BE BASED ON THE PRIMARY CLINICAL RECORDS. [employer] [facility]. provides no warranty or guarantee of the accuracy or completeness of information in this document.
[2024-02-21 08:12] VITALS: BP 124/85; PULSE 84; TEMP 36.8; O2SAT 98
[2024-02-21 08:54] VITALS: BP 166/85; BP 178/105; PULSE 80; O2SAT 100; O2SAT 99
[2024-02-21] MEDS: BUPIVACAINE HCL 0.25% PF 25 MG/10 ML VIAL 7 ML INJ (09:00)
--- NOTE | 2024-02-21 09:28 | P.ON_ITS ---
Date of procedure: 02/21/24 Pre-op diagnosis: Lumbar spondylosis Post-op diagnosis: same as pre-op Procedure: Bilateral Lumbar 4/5, 5/sacral 1 medial branch block Preop diagnosis includes pain secondary to spondylosis, Postop diagnosis same Under fluoroscopic guidance Solution injected: 2milliliters Marcaine 0.25% Anesthesia :none Immediate complications none Time out process compliant After informed consent obtained from the patient placed in the Prone proposition . area was prepped and draped in a sterile fashion using betadine .25 gauge spinal needle inserted over each of the above mentioned target areas . Brandon were directed towards the target under fluoroscopic guidance . after encountering each of the targets , no indication of intravascular intraneuronal or intrathecal needle tip placement. Then 0 .5 to 1 Milliliter was injected at each level. Brandon removed postoperatively. patient transferred to recovery in stable condition to be discharged home after meeting criteria Anesthesia: Local Surgeon: Pedro Mccormick Condition: stable
== END 2024-02-21 09:05 | disposition home or self-care (01) ==
LOC: SURGOUT 07:48
PROVIDERS: PCP Family Medicine; Visit Provider Anesthesiology Pain Medicine
DX: M47.816 Spondylosis without myelopathy or radiculopathy, lumbar region (principal)
CPT/HCPCS: 64493; 64494; J0665

== ENCOUNTER 2024-02-22 09:02 | Outpatient (OUT) | payer BC, SELFPAY ==
--- NOTE | 2024-02-22 09:14 | P.CN_ITS ---
Consult Note: HPI Data of Consult Patient: known to practice within the last 3 years Requesting Physician: Deepika Alicia NP Primary Care Provider: LEON WILSON Consult Narrative Reason for consult: f/u Narrative: Jeanette Vasquez a pleasant 43 year old female presents for evaluation and management of chronic bilateral low back pain. Chronic worsening low back pain over the last 20 years, has failed PT/water therapy and traction greater than 6 weeks. PRN tylenol and ibuprofen OTC providing mild relief without benefit. moderate relief of myofascial pain from tizanidine. Recently underwent bilateral L4-5 L5-S1 MBB #1 with 100% improvement in pain and functional ability immediately following and hours after the procedure. cc:: CC: Deepika Alicia NP Review of Systems ROS Status of ROS 10 or more systems reviewed and unremark able except as noted in history and below Musculoskeletal Reports: back pain Meds Home Medications and Allergies Home Medications ?Medication ?Instructions ?Recorded ?Confirmed ?Type metoprolol tartrate 50 mg tablet 50 mg PO BID 12/30/23 02/21/24 History tizanidine 4 mg capsule (Zanaflex) 4 mg PO Q8H PRN muscle spasticity 12/30/23 02/21/24 Rx #20 caps Allergies Allergy/AdvReac Type Severity Reaction Status Date / Time No Known Drug Allergies Allergy Verified 02/21/24 08:10 Exam Constitutional Documenting provider has reviewed patient's vital signs: yes Common normals: no apparent distress, oriented x3, healthy appearing, alert and well nourished General appearance: cooperative HENMT Common normals: normocephalic, hearing grossly normal bilaterally and moist oral mucous membranes Head and scalp: normocephalic Eye Common normals: PERRL Pupil: PERRL Neck & C-Spine Common normals: full ROM General: normal visual inspection Chest Common normals: inspection of chest normal Respiratory Common normals: normal respiratory effort, no retractions and no use of accessory muscles Back & Pelvis Lumbar spine/lower back: normal to inspection, ROM limited, pain with ROM and straight leg raise negative bilaterally Sacroiliac joints: SI joints normal Other: bilateral facet loading positive tenderness over L4-S1 facets no radiculopathy on exam, strength 5/5 in BLE Extremity Common normals: normal to inspection and full ROM Neuro Common normals: oriented x3, CN's II-XII intact bilaterally, moves all extremities, no focal motor deficits, no sensory deficits noted, deep tendon reflexes 2+ bilaterally and gait normal Sensorium/orientation: alert Motor exam: strength 5/5 throughout and no movement abnormalities noted Psych Common normals: mental status grossly normal, thought process normal, cooperative, affect normal, speech normal and activity/motor behavior normal Speech: normal speech Thought process: normal thought process Results Additional Findings Additional findings: If on a controlled substance or opioids, I have checked an [place] report on this patient and there are no aberrancies noted in the prescribing history.??If on a controlled substance or opioid a drug screen was completed and reviewed within the last year, and if there has not been a drug screen completed we ordered one today to monitor higher risk, state monitored pain medication use. As part of providing excellent, safe, comprehensive care, the following was completed at our patient's visit: 1. A medication reconciliation and review to ensure accurate knowledge of current/active medications, including asking our patients to inform us about any aofw-ovn-rauqizd medications or herbal remedies/nutritional da silva pplements/alternative remedies. 2. A review to specifically ensure our patients have had annual screening for screening for depression, screening for tobacco use, and screening for unhealthy alcohol use. For concerning screenings had a discussion with the patient, provided patient education, and recommended follow-up with primary care provider when appropriate. If patient noted with a risk of falling, they received education on strength, gait, and balance training to prevent future risk of falling. Assessment and Plan Assessment and Plan (1) Lumbar spondylosis: Plan proceed with bilateral L4-5 L5-S1 facet medial branch block #2 under fluoroscopy working towards RFA, to be completed with 10mg PO Valium due to anxiety and difficulty tolerating procedure per pt. continue current medications f/u after injection
== END 2024-02-22 09:03 | disposition home or self-care (01) ==
LOC: PM 09:02
PROVIDERS: PCP Family Medicine; Visit Provider Nurse Practitioner
DX: M47.816 Spondylosis without myelopathy or radiculopathy, lumbar region (principal)
CPT/HCPCS: G0463

== ENCOUNTER 2024-03-06 07:36 | Day surgery (SDC) | payer BC, SELFPAY ==
--- OUTSIDE RECORDS SUMMARY | 2024-03-06 07:40 | XMS_ITS | CCD ---
Author Organization [facility] Care Team Providers Care Set Up And Charger Name Role Phone MERT LAMA Referring Unavailable PAMELLA BRENNAN Attending Unavailable MIKA, PAMELLA Ang Surgeon Unavailable PAMELLA BRENNAN Admitting Unavailable HI Procedure Practitioner Unavailab MERT Caban Primary Care [...] Primary Care Physician Mert Lama MD Unavailable [phone] D[address], DR MERT Forrest Primary Care Unavailable [...] Unavailable LAMA, DR MERT Forrest Admitting Unavailable LMAA, DR MERT Forrest Primary Care Unavailable LAMA, [...] Comment on above: Take 1 capsule by [facility] once daily. Problems Active Problems Problem Classification [...] 04-21-2022 Chronic Other aftercare (1 source) Other correction (current) drug therapy; Translations: [OTH ALF CURRENT [...] Range Facility ED Note-Physicianon 01-03-20 ED Note-Physician [id number]#1.00 TIFF [facility] RAD - MRI Reporton RAD - MRI Report [id number]#1.0 0TIFF [facility] RAD - MRI Report [id number]#1.0 0TIFF [facility] RAD - MRI Report [id number]#1.00 TIFF [facility] RAD - MRI Report [id number]#1.00 TIFF [facility] RAD - MRI Report [id number]#1.0 0TIFF [facility] RAD - MRI Report [id number]#1.00 TIFF [facility] Physician Orderon 12-22-2023 Physician Order [id number]#1.00 TIFF [facility] Provider Letteron 12-21-2023 Provider Letter December 21, 2023 [place] [id number] : 1980 To Whom It May Concern, Please excuse above patient from work. Date of Illness: From: 12/19/2023 To: 12/21/2023 May Return to Work On: 12/22/2023 Sincerely, HARPREET Stewart [address] [address] Normal [facility] Lab Reportson 12-20-2023 Lab Reports [id number]#1.00 TIFF Normal [facility] Physician Orderon 12-20-2023 Physician Order [id number]#1.00 TIFF Normal [facility] RAD - MISCon 12-20-2023 RAD - MISC [id number]#1.00 TIFF Normal [facility] Ambulatory Visit Summaryon 0 12-19-2023 Ambulatory Visit [...] sciatica BMI 40.0-44.9, adult Non-smoker Pickup at [facility]/pharmacy #6177 New meloxicam (meloxicam 15 mg Tab) 1 Tablets By Mouth Every day Low back pain with sciatica BMI 40.0-44.9, adult Non-smoker Pickup at [facility]/pharmacy #6177 New methylPREDNISolone (Medrol 4 mg Tab) 1 Packets By Mouth As Directed Low back pain with sciatica BMI 40.0-44.9, adult Non-smoker Duration: 6 Days as directed on package labeling Pickup at [facility]/pharmacy #6177 Unchanged metoprolol (Metoprolol tartrate 50 mg Tab) 1 Tablets By Mouth 2 times a day [facility] [address], [place] [id number] [phone] Medications and Immunizations Administered Given ketorolac 30 [...] for choosing us for your care. 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 Had x-ray done at [facility] for spine over a year or [...] Bedtime for spasm, 20 cap(s), Refill(s) 0, [facility]/pharmacy #6177, 165.1, cm, 12/19/23 13:17:00 EDT, Height/Length Dosing, 114.6, kg, 12/19/23 13:17:00 EDT, Weight Dosing ketorolac, 30 mg = 1 mL, Injection, IntraMuscular, Once, Stop date 12/19/23 13:35:00 EDT, Routine, Start date 12/19/23 13:35:00 EDT, 12/19/23 13:35:00 EDT meloxicam, 15 mg = 1 tab(s), Oral, Daily, # 30 tab(s), Refills(s) 0, Pharmacy: [facility]/pharmacy #6177, 165.1, cm, 12/19/23 13:17:00 EDT, Height/Length Dosing, 114.6, kg, 12/19/23 13:17:00 EDT, Weight Dosing methylPREDNISolone, = 1 packet(s), Oral, As Directed, as directed on package labeling, X 6 day(s), # 21 tab(s), Refills(s) 0, Pharmacy: [facility]/pharmacy #6177, 165.1, cm, 12/19/23 13:17:00 EDT, Height/Length Dosing, 114.6, kg, 12/19/23 13:17:00 EDT, Weight Dosing 2. BMI 40.0-44.9, adult (Z68.41: Body mass index [BMI] 40.0-44.9, adult) BMI education complete Ordered: cyclobenzaprine, 15 mg, 1 cap(s), Oral, Bedtime for spasm, 20 cap(s), Refill(s) 0, [facility]/pharmacy #6177, 165.1, cm, 12/19/23 13:17:00 EDT, Height/Length Dosing, 114.6, kg, 12/19/23 13:17:00 EDT, Weight Dosing ketorolac, 30 mg = 1 mL, Injection, IntraMuscular, Once, Stop date 12/19/23 13:35:00 EDT, Routine, Start date 12/19/23 13:35:00 EDT, 12/19/23 13:35:00 EDT meloxicam, 15 mg = 1 tab(s), Oral, Daily, # 30 tab(s), Refills(s) 0, Pharmacy: [facility]/pharmacy #6177, 165.1, cm, 12/19/23 13:17:00 EDT, Height/Length Dosing, 114.6, kg, 12/19/23 13:17:00 EDT, Weight Dosing methylPREDNISolone, = 1 packet(s), Oral, As Directed, as directed on package labeling, X 6 day(s), # 21 tab(s), Refills(s) 0, [facility], 165.1, cm, 12/19/23 13:17:00 EDT, Height/Length Dosing, 114.6, kg, 12/19/23 13:17:00 EDT, Weight Dosing 3. Non-smoker (Z78.9: Other specified health status) continue not smoking Ordered: cyclobenzaprine, 15 mg, 1 cap(s), Oral, Bedtime for spasm, 20 cap(s), Refill(s) 0, [facility], 165.1, cm, 12/19/23 13:17:00 EDT, Height/Length Dosing, 114.6, kg, 12/19/23 13:17:00 EDT, Weight Dosing ketorolac, 30 mg = 1 mL, Injection, IntraMuscular, Once, Stop date 12/19/23 13:35:00 EDT, Routine, Start date 12/19/23 13:35:00 EDT, 12/19/23 13:35:00 EDT meloxicam, 15 mg = 1 tab(s), Oral, Daily, # 30 tab(s), Refills(s) 0, [facility], 165.1, cm, 12/19/23 13:17:00 EDT, Height/Length Dosing, 114.6, kg, 12/19/23 13:17:00 EDT, Weight Dosing methylPREDNISolone, = 1 packet(s), Oral, As Directed, as directed on package labeling, X 6 day(s), # 21 tab(s), Refills(s) 0, Pharmacy: [facility]/pharmacy #6177, 165.1, cm, 12/19/23 13:17:00 EDT, Height/Length Dosing, 114.6, kg, 12/19/23 13:17:00 EDT, Weight Dosing Follow-up No qualifying data available Problem List/Past Medical History Ongoing Anemia Anxiety (more content not included)... [facility] Comment on above: Result Comment: Elec tronically Signed By: Cristiane Brasher\Date and Time Signed: 12/19/23 13:59 EDT Physician Orderon 12-19-2023 Physician Order [id number]#1.00 TIFF [facility] Consultation Noteon 02-15-20 Consultation Note [id number]#1.0 0CD:127 [facility] Consultation Noteon 02-05-20 Consultation Note [id number]#1.0 0CD:127 [facility] Comment on above: Other Comment: INCOM PLETE FAX.NDW Formson 02-02-2023 Forms [id number]#1.0 0CD:127 [facility] Consultation Noteon 01-29-20 Consultation Note [id number]#1.00 CD:127 [facility] Cardiovascular Reporton 01-06 Cardiovascular Report [id number]#1.0 0CD:127 [facility] MRI BRAIN WO/W IVCONon 10-14 MRI BRAIN [...] cord. No mass or pathologic intradural enhancement. Licensed Plumber: NARCISO Transcribe Date/Time: Oct 14 2022 8:43P Dictated by : UNIQUE ANDERSON MD This examination was interpreted and the report reviewed and electronically signed by: UNIQUE ANDERSON MD on Oct 14 2022 8:51PM EST [id number] Normal [facility] MRI CERVICAL SPINE WO/W IVCO Non 10-14-2022 [...] cord. No mass or pathologic intradural enhancement. [facility] Transcribe Date/Time: Oct 14 2022 8:43P Dictated by : UNIQUE ANDERSON MD This examination was interpreted and the report reviewed and electronically signed by: UNIQUE ANDERSON MD on Oct 14 2022 8:51PM EST [id number] Normal [facility] CBC AUTO DIFFon 09-02-2022 BASO # 0.1 103/ul Normal 0.0-0.1 [facility] Comment on above: Performed By: #### C MP, TSH, HSTROPN #### [facility] [address] [place] [address] Dr. Christos Fallon Basophils/100 WBC (Bld) 0.5 % Normal 0.2-2.0 [facility] Comment on above: Performed By: #### C MP, TSH, HSTROPN #### [facility] [address] [address] [address] Christos Fallon EO # 0.2 103/ul Normal 0.0-0.7 [facility] Comment on above: Performed By: #### C MP, TSH, HSTROPN #### [facility] [address] [place] [address] Dr. Christos Fallon Eosinophils/100 WBC (Bld) 2.3 % Normal 0.9-7.0 [facility] Comment on above: Performed By: #### C MP, TSH, HSTROPN #### [facility] [address] [place] [address] Dr. Christos Fallon Erythrocyte distribution width (RBC) [Ratio] 13.0 % Normal 11.0-15.0 [facility] Comment on above: Performed By: #### C MP, TSH, HSTROPN #### [facility] [address] [place] [address] Dr. Christos Fallon Hematocrit (Bld) [Volume fraction] 43.0 % Normal 36.0-48.0 [facility] Comment on above: Performed By: #### C MP, TSH, HSTROPN #### [facility] [address] [place] [address] Dr. Christos Fallon Hemoglobin (Bld) [Mass/Vol] 13.9 g/dL Normal 12.0-16.0 [facility] Comment on above: Performed By: #### C MP, TSH, HSTROPN #### [facility] [address] [place] [address] Dr. Christos Fallon IG # 0.03 10e3/ul Normal 0.00-0.03 [facility] Comment on above: Performed By: #### C MP, TSH, HSTROPN #### [facility] [address] [place] [address] Dr. Christos Fallon IG % 0.3 % Normal 0.0-0.5 [facility] Comment on above: Performed By: #### C MP, TSH, HSTROPN #### [facility] [address] [place] [address] Dr. Christos Fallon LYMPH # 2.8 103/ul Normal 1.2-3.8 [facility] Comment on above: Performed By: #### C MP, TSH, HSTROPN #### [facility] [address] [place] [address] Dr. Christos Fallon Lymphocytes/100 WBC (Bld) 29.6 % Normal 20.5-60.0 [facility] Comment on above: Performed By: #### C MP, TSH, HSTROPN #### [facility] [address] [place] [address] Dr. Christos Fallon MANUAL DIFF REQ NO Normal [facility] Comment on above: Performed By: #### C MP, TSH, HSTROPN #### [facility] [address] [place] [address] Dr. Christos Fallon MCH (RBC) [Entitic mass] 34.8 pg Critically high 26.7-34.0 [facility] Comment on above: Performed By: #### C MP, TSH, HSTROPN #### [facility] [address] [place] [address] Dr. Christos Fallon MCHC (RBC) [Mass/Vol] 32.3 g/dL Normal 29.9-35.2 [facility] Comment on above: Performed By: #### C MP, TSH, HSTROPN #### [facility] [address] [place] [address] Dr. Christos Fallon MCV (RBC) [Entitic vol] 107.5 fL Critically high 81.0-99.0 [facility] Comment on above: Performed By: #### C MP, TSH, HSTROPN #### [facility] [address] [place] [address] Dr. Christos Fallon MONO # 0.7 103/ul Normal 0.3-0.8 [facility] Comment on above: Performed By: #### C MP, TSH, HSTROPN #### [facility] [address] [place] [address] Dr. Christos Fallon Monocytes/100 WBC (Bld) 7.7 % Normal 1.7-12.0 [facility] Comment on above: Performed By: #### C MP, TSH, HSTROPN #### [facility] [address] [place] [address] Dr. Christos Fallon NEUT # 5.7 103/ul Normal 1.4-6.5 [facility] Comment on above: Performed By: #### C MP, TSH, HSTROPN #### [facility] [address] [place] [address] Dr. Christos Fallon Neutrophils/100 WBC (Bld) 59.6 % Normal 43.0-75.0 [facility] Comment on above: Performed By: #### C MP, TSH, HSTROPN #### [facility] [address] [address] [address] Christos Fallon Platelet mean volume (Bld) [Entitic vol] 9.9 fL Normal 9.5-13.5 [facility] Comment on above: Performed By: #### C MP, TSH, HSTROPN #### [facility] [address] [address] [address] Christos Fallon PLT 309 103/ul Normal 150-450 [facility] Comment on above: Performed By: #### C MP, TSH, HSTROPN #### [facility] [address] [place] [address] Dr. Christos Fallon RBC 4.00 106/ul Critically low 4.20-5.40 [facility] Comment on above: Performed By: #### C MP, TSH, HSTROPN #### [facility] [address] [place] [address] Dr. Christos Fallon WBC 9.6 103/ul Normal 4.0-11.0 [facility] Comment on above: Performed By: #### C MP, TSH, HSTROPN #### [facility] [address] [place] [address] Dr. Christos Fallon D-DIMERon 09-02-2022 D-DIMER 0.28 mg/L FEU Normal <=0.59 [facility] Comment on above: Performed By: #### C MP, TSH, HSTROPN #### [facility] [address] [place] [address] Dr. Christos Fallon D-DIMER COMMENTS SEE BELOW Normal [facility] Comment on above: Result Comment: Incr [...] By: #### C MP, TSH, HSTROPN #### [facility] [address] [place] [address] Dr. Christos Fallon PROF 14(COMP METB)on 023 Albumin [Mass/Vol] 3.8 g/dL Normal 3.4-5.0 [facility] Comment on above: Performed By: #### C MP, TSH, HSTROPN #### [facility] [address] [place] [address] Dr. Christos Fallon Albumin/Globulin [Mass ratio] 1.2 {ratio} Normal [facility] Comment on above: Performed By: #### C MP, TSH, HSTROPN #### [facility] [address] [place] [address] Dr. Christos Fallon ALP [Catalytic activity/Vol] 85 U/L Normal 46-116 [facility] Comment on above: Performed By: #### C MP, TSH, HSTROPN #### [facility] [address] [place] [address] Dr. Christos Fallon ALT [Catalytic activity/Vol] 39 U/L Normal 14-59 [facility] Comment on above: Performed By: #### C MP, TSH, HSTROPN #### [facility] [address] [place] [address] Dr. Christos Fallon Anion gap [Moles/Vol] 16.3 mmol/L Normal [facility] Comment on above: Performed By: #### C MP, TSH, HSTROPN #### [facility] [address] [place] [address] Dr. Christos Fallon AST [Catalytic activity/Vol] 19 U/L Normal 15-37 [facility] Comment on above: Performed By: #### C MP, TSH, HSTROPN #### [facility] [address] [place] [address] Dr. Christos Fallon Bilirubin [Mass/Vol] 0.4 mg/dL Normal 0.2-1.0 [facility] Comment on above: Performed By: #### C MP, TSH, HSTROPN #### [facility] [address] [address] [address] Christos Fallon Calcium [Mass/Vol] 9.2 mg/dL Normal 8.5-10.1 [facility] Comment on above: Performed By: #### C MP, TSH, HSTROPN #### [facility] [address] [address] [address] Christos Fallon Chloride [Moles/Vol] 101 mmol/L Normal 98-107 [facility] Comment on above: Performed By: #### C MP, TSH, HSTROPN #### [facility] [address] [place] [address] Dr. Christos Fallon CO2 [Moles/Vol] 24.9 mmol/L Normal 21.0-32.0 [facility] Comment on above: Performed By: #### C MP, TSH, HSTROPN #### [facility] [address] [place] [address] Dr. Christos Fallon Creatinine [Mass/Vol] 0.83 mg/dL Normal 0.55-1.02 [facility] Comment on above: Performed By: #### C MP, TSH, HSTROPN #### [facility] [address] [place] [address] Dr. Christos Fallon EGFR-AF CHINESE >60 Normal >=60 [facility] Comment on above: Performed By: #### C MP, TSH, HSTROPN #### [facility] [address] [place] [address] Dr. Christos Fallon EGFR-NON AF CHINESE >60 Normal >=60 [facility] Comment on above: Performed By: #### C MP, TSH, HSTROPN #### [facility] [address] [place] [address] Dr. Christos Fallon Globulin (S) [Mass/Vol] 3.2 g/dL Normal [facility] Comment on above: Performed By: #### C MP, TSH, HSTROPN #### [facility] [address] [place], [place] [id number] Dr. Christos Fallon Glucose [Mass/Vol] 142 mg/dL Critically high 74-[address] [facility] Comment on above: Performed By: #### C MP, TSH, HSTROPN #### [facility] [address] [place] [address] Dr. Christos Fallon Potassium [Moles/Vol] 3.2 mmol/L Critically low 3.5-5.1 [facility] Comment on above: Performed By: #### C MP, TSH, HSTROPN #### [facility] [address] [place] [address] Dr. Christos Fallon Protein [Mass/Vol] 7.0 g/dL Normal 6.4-8.2 [facility] Comment on above: Performed By: #### C MP, TSH, HSTROPN #### [facility] [address] [place] [address] Dr. Christos Fallon Sodium [Moles/Vol] 139 mmol/L Normal 136-145 [facility] Comment on above: Performed By: #### C MP, TSH, HSTROPN #### [facility] [address] [place] [address] Dr. Christos Fallon Urea nitrogen [Mass/Vol] 10.0 mg/dL Normal 7.0-18.0 [facility] Comment on above: Performed By: #### C MP, TSH, HSTROPN #### [facility] [address] [place] [address] Dr. Christos Fallon Urea nitrogen/Creatinine [Mass ratio] 12.0 mg/mg Normal [facility] Comment on above: Performed By: #### C MP, TSH, HSTROPN #### [facility] [address] [place] [address] Dr. Christos Fallon PROTIMEon 09-02-2022 INR Coag (PPP) [Relative time] {INR} Normal [facility] Comment on above: Performed By: #### C MP, TSH, HSTROPN #### [facility] [address] [place] [address] Dr. Christos Fallon INR GUIDELINES SEE BELOW Normal [facility] Comment on above: Result Comment: GUALBERTO RED INR: 2.0 - 3.0 CONDITIONS NOT LISTED BELOW 2.5 - 3.5 FOR PROSTHETIC HEART VALVE REPLACEMENT 2.5 - 3.5 RECURRENT THROMBOSIS Performed By: #### C MP, TSH, HSTROPN #### [facility] [address] [place] [address] Dr. Christos Fallon PT Coag (PPP) [Time] 9.7 s Normal 9.0-11.6 [facility] Comment on above: Performed By: #### C MP, TSH, HSTROPN #### [facility] [address] [place] [address] Dr. Christos Fallon PTTon 09-02-2022 aPTT Coag (Bld) [Time] 25.9 s Normal 22.3-36.2 [facility] Comment on above: Performed By: #### C MP, TSH, HSTROPN #### [facility] [address] [place] [address] Dr. Christos Fallon TROPONIN, HIGH SENSITIVITYon 09-02-2022 HSTROP <4.0 Normal 4.0-51.3 [facility] Comment on above: Result Comment: CUT- OFF POINTS HAVE BEEN ESTABLISHED BASED ON THE FOURTH UNIVERSAL DEFINITIONS OF MYOCARDIAL INFARCTION. THE UPPER REFERENCE LIMIT (URL) OF TROPONIN, DEFINED THE 99TH PERCENTILE OF cTnI DISTRIBUTION IN A REFERENCE POPULATION, HAS BEEN CONFIRMED THE DECISION THRESHOLD FOR [place] DIAGNOSIS. Performed By: #### C MP, TSH, HSTROPN #### [facility] [address] [place] [address] Dr. Christos Fallon TSHon 09-02-2022 TSH 0.813 uIU/mL Normal 0.358-3.740 [facility] Comment on above: Performed By: #### C MP, TSH, HSTROPN #### [facility] [address] [place] [address] Dr. Christos Fallon XR CHEST 1 Von [...] by: LEEANNE MON Date: 2022-09-02 15:09 [facility] ) CHRISTINAKAILA Emily ([id number]) 1980 F Date Time Provider Department 08/24/22 2:00 PM JANELL SY During your visit today, we recorded the following information about you: Pulse Blood pressure Weight Height 88/minute 112/73 112.9 kg 1.626 m Janell Sy MD 08/24/2022 2:17 PM Signed [facility] [place] SECTION OF REGIONAL CARDIOLOGY OUTPATIENT VISIT DATE [...] Cardiac work-up includes: Echocardiogram on 05/19/2020 at [facility] showed normal ejection fraction. No valvular [...] ECG COMPLETE 4. Obesity, morbid, BMI 40.0-49.9 ([facility]) E66.01 ECG COMPLETE 5. SVT (supraventricular tachycardia) ([facility]) I47.1 6. Chronic fatigue R53.82 7. [...] apnea) Palpitatio (more content not included)... Normal [facility] ECG COMPLETEon 08-24-2022 ECG COMPLETE Ventricular Rate : 8 4 BPM Atrial Rate : 84 BPM P-R Interval : 166 ms QRS Duration : 92 ms Q-T Interval : 358 ms QTC Calculation(Bazett) : 423 ms Calculated P [place] : 60 degrees Calculated R [place] : 45 degrees Calculated T [place] : 45 degrees NORMAL SINUS RHYTHM INCREASED R/S RATIO IN V1, CONSIDER EARLY TRANSITION OR POSTERIOR INFARCT ABNORMAL ECG Confirmed by MEERA BOYD M.D. ([id number]) on 08/28/2022 3:03:10 PM NAME : KIALA VASQUEZ PID : [id number] : 1980 Gender : Female Race : ORD : [id number] Procedure Date : Aug 24 2022 13:56:02 [...] JANELL SY Acquired by : Jose browning [facility] CNTHERAPYon 08-12-2022 CNTHERAPY OT/PT/Speech Visit (PTAMCF) KAILA VASQUEZ ([id number]) 1980 F Date Time Provider Department 08/12/22 2:[address] [facility] Date Time Provider Department Center 08/12/2022 2:45 PM [id number], KARA [facility] Reason for Visit: Physical Therapy [503] [...] % (flush) 10 mL (BD POSIFLUSH) Normal [facility] CNTHERAPYon 08-05-2022 CNTHERAPY OT/PT/Speech Visit (PTAF) KAILA VASQUEZ ([id number]) 1980 F Date Time Provider Department 08/05/22 9:[address] [facility] Date Time Provider Department Center 08/05/2022 9:15 AM [id number], KARA [facility] Reason for Visit: PT Eval [747] [...] % (flush) 10 mL (BD POSIFLUSH) Normal [facility] Covid-19 PCR (CVDTB)on 07-09 SARS-CoV-2 (COVID-19) RNA LEROY+probe Ql (Unsp spec) Not detected Normal NOT DETECTED [facility] Comment on above: Result Comment: When [...] for this test is supported by the Multisensor Intelligence Officer of Health and Human Service's declaration that [...] used). Performed By: #### C VDAGA #### [facility] [address] [place] [address] Dr. Christos Fallon 25(OH)D3 [facility] 2021 25-hydroxyvitamin D3 [Mass/Vol] 15.8 ng/mL Low 31.0-80.0 [facility] Comment on above: Order Comment: Speci men Type: BLOOD SPECIMENOrdering Facility: [facility] Address: [address] [place] [address] Result Comment: Clas sification of 25 [place] Vitamin D status: Deficiency/Insufficiency: < or = 30 ng/ml. Sufficiency/Optimal Levels: 31-80 ng/mL Toxicity: > 100 ng/mL. Test performed by chemiluminescent immunoassay. Performed By: #### 1 989-3 ####[facility]IA [id number] [place] [address] [place] [facility] ESEQUIEL BY IFA WITH REFLEXon ESEQUIEL PATTERN Nuclear fine speckled Normal [facility] Comment on above: Order Comment: Speci betty Type: BLOOD SPECIMENOrdering Facility: [facility] Address: [address] [place] [address] Performed By: #### 2 9374-6, 84027-4, 37086-6, 85865-9, 59246-2, ANAIFR, 79678-2, 05730-5, 74223-4, 12132-4 ####[facility] LABCLIA [id number] [address] [place] ESEQUIEL TITER 1:160 Normal [facility] Comment on above: Order Comment: Speci men Type: BLOOD SPECIMENOrdering Facility: [facility] Address: [address] [id number] Performed By: #### 2 9374-6, 18361-4, 81631-8, 55846-2, 00244-7, ANAIFR, 90478-1, 10829-9, 23162-2, 73159-7 ####[facility] LABCLIA [id number] [place] [address] [place] Nuclear Ab IF (S) [Titer] Positive Abnormal Negative [facility] Comment on above: Order Comment: Speci men Type: BLOOD SPECIMENOrdering Facility: [facility] Address: [address] [address] Result Comment: Anti -nuclear antibody test is used as an aid in diagnosis of systemic autoimmune diseases. Where positive and clinically warranted, follow-up using disease-specific testing is recommended. Low positive titers are not uncommon with advanced age, certain chronic infections, and malignancies among others. Test methodology: Indirect fluorescence immunoassay (IFA) using HEp-2 cells. Performed By: #### 2 9374-6, 43772-9, 99320-9, 81410-4, 97934-4, ANAIFR, 21492-0, 85299-6, 52928-1, 12191-8 ####[facility] LABCLIA [id number] [place] [address] [place] Basic metabolic 2000 panelon 07-07-2022 Anion gap [Moles/Vol] 13 mmol/L Normal 9-18 [facility] Comment on above: Order Comment: Speci men Type: BLOOD SPECIMENOrdering Facility: [facility] Address: [address] [id number] Performed By: #### 2 4321-2 ####[facility] LABCLIA [id number] [place] [address] [place] Calcium [Mass/Vol] 9.3 mg/dL Normal 8.5-10.2 [facility] Comment on above: Order Comment: Speci men Type: BLOOD SPECIMENOrdering Facility: [facility] Address: [address] [address] Performed By: #### 2 4321-2 ####[facility] LABCLIA [id number] [place] [address] [place] Chloride [Moles/Vol] 102 mmol/L Normal 97-105 [facility] Comment on above: Order Comment: Speci men Type: BLOOD SPECIMENOrdering Facility: [facility] Address: [address] [place] [address] Performed By: #### 2 4321-2 ####[facility] LABCLIA [id number] [place] [address] [place] CO2 [Moles/Vol] 23 mmol/L Normal 22-30 [facility] Comment on above: Order Comment: Speci men Type: BLOOD SPECIMENOrdering Facility: [facility] Address: [address] [place] [address] Performed By: #### 2 4321-2 ####[facility] LABCLIA [id number] [place] [address] [place] Creatinine [Mass/Vol] 0.72 mg/dL Normal 0.58-0.96 [facility] Comment on above: Order Comment: Speci men Type: BLOOD SPECIMENOrdering Facility: [facility] Address: [address] [place] [address] Performed By: #### 2 4321-2 ####[facility] LABCLIA [id number] [place] [address] [place] ESTIMATED GLOMERULAR FILTRATION RATE 109 mL/min/1.73m??? Normal >=60 [facility] Comment on above: Order Comment: Speci men Type: BLOOD SPECIMENOrdering Facility: [facility] Address: [address] [place] [address] Result Comment: Dina mated Glomerular Filtration Rate [...] By: #### 2 4321-2 ####[facility] LABCLIA [id number] [place] [address] [place] Glucose [Mass/Vol] 98 mg/dL Normal 74-99 [facility] Comment on above: Order Comment: Bryan men Type: BLOOD SPECIMENOrdering Facility: [facility] Address: [address] [place] [address] Result Comment: The [place] Diabetes Association (ADA) provides guidance for cutoff [...] Standards of Medical Care in Diabetes 2016, [place] Diabetes Association. Diabetes Care. 2016.39(Suppl 1). Performed By: #### 2 4321-2 ####[facility] LABCLIA [id number] [place] [address] [place] Potassium [Moles/Vol] 4.1 mmol/L Normal 3.7-5.1 [facility] Comment on above: Order Comment: Bryan hernández Type: BLOOD SPECIMENOrdering Facility: [facility] Address: [address] [place], [place] [address] Performed By: #### 2 4321-2 ####[facility] LABCLIA [id number] [place] [address] [place] Sodium [Moles/Vol] 138 mmol/L Normal 136-144 [facility] Comment on above: Order Comment: Speci men Type: BLOOD SPECIMENOrdering Facility: [facility] Address: [address] [address] Performed By: #### 2 4321-2 ####[facility] LABCLIA [id number] [place] [address] [place] Urea nitrogen [Mass/Vol] 8 mg/dL Normal 7-21 [facility] Comment on above: Order Comment: Speci men Type: BLOOD SPECIMENOrdering Facility: [facility] Address: [address] [address] Performed By: #### 2 4321-2 ####[facility] LABCLIA [id number] [place] [address] [place] Anion gap [Moles/Vol] 13 mmol/L 9 - 18 mmol/L [facility] Calcium [Mass/Vol] 9.3 mg/dL 8.5 - 10. 2 mg/dL [facility] Chloride [Moles/Vol] 102 mmol/L 97 - 10 5 mmol/L [facility] CO2 [Moles/Vol] 23 mmol/L 22 - 30 mmol/L [facility] Creatinine [Mass/Vol] 0.72 mg/dL 0.58 - 0.96 mg/dL [facility] Estimated Glomerular Filtration Rate 109 mL/min/1.73m >=60 mL/min/1.73m [facility] Glucose [Mass/Vol] 98 mg/dL 74 - 99 mg/dL [facility] Potassium [Moles/Vol] 4.1 mmol/L 3.7 - 5.1 mmol/L [facility] Sodium [Moles/Vol] 138 mmol/L 136 - 144 mmol/L [facility] Urea nitrogen [Mass/Vol] 8 mg/dL 7 - 21 mg/dL [facility] CBC W Auto Differential pane l (Bld)on 07-07-2022 Basophils (Bld) [#/Vol] 0.04 10*3/uL Normal <0.11 [facility] Comment on above: Order Comment: Speci men Type: BLOOD SPECIMENOrdering Facility: [facility] Address: [address] [address] Performed By: #### 5 7021-8 ####[facility] LABCLIA [id number] [place] [address] [place] Basophils/100 WBC (Bld) 0.5 % Normal [facility] Comment on above: Order Comment: Speci men Type: BLOOD SPECIMENOrdering Facility: [facility] Address: [address] [place] [address] Performed By: #### 5 7021-8 ####[facility] LABCLIA [id number] [place] [address] [place] Differential cell count method Nom (Bld) Auto Normal [facility] Comment on above: Order Comment: Speci men Type: BLOOD SPECIMENOrdering Facility: [facility] Address: [address] [place] [address] Performed By: #### 5 7021-8 ####[facility] LABCLIA [id number] [place] [address] [place] Eosinophils (Bld) [#/Vol] 0.29 10*3/uL Normal <0.46 [facility] Comment on above: Order Comment: Speci men Type: BLOOD SPECIMENOrdering Facility: [facility] Address: [address] [place] [address] Performed By: #### 5 7021-8 ####[facility] LABCLIA [id number] [place] [address] [place] Eosinophils/100 WBC (Bld) 3.9 % Normal [facility] Comment on above: Order Comment: Speci men Type: BLOOD SPECIMENOrdering Facility: [facility] Address: [address] [place] [address] Performed By: #### 5 7021-8 ####[facility] LABCLIA [id number] [place] [address] [place] Erythrocyte distribution width (RBC) [Ratio] 12.1 % Normal 11.5-15.0 [facility] Comment on above: Order Comment: Speci men Type: BLOOD SPECIMENOrdering Facility: [facility] Address: [address] [place] [address] Performed By: #### 5 7021-8 ####[facility] LABIA [id number] [place] [address] [place] Hematocrit (Bld) [Volume fraction] 43.5 % Normal 36.0-46.0 [facility] Comment on above: Order Comment: Speci men Type: BLOOD SPECIMENOrdering Facility: [facility] Address: [address] [place] [address] Performed By: #### 5 7021-8 ####[facility] LABIA [id number] [place] [address] [place] Hemoglobin (Bld) [Mass/Vol] 14.9 g/dL Normal 11.5-15.5 [facility] Comment on above: Order Comment: Speci men Type: BLOOD SPECIMENOrdering Facility: [facility] Address: [address] [place] [address] Performed By: #### 5 7021-8 ####[facility] LABIA [id number] [place] [address] [place] Immature granulocytes (Bld) [#/Vol] 0.03 10*3/uL Normal <0.10 [facility] Comment on above: Order Comment: Speci men Type: BLOOD SPECIMENOrdering Facility: [facility] Address: [address] [place] [address] Performed By: #### 5 7021-8 ####[facility] LABIA [id number] [place] [address] [place] Immature granulocytes/100 WBC (Bld) 0.4 % Normal [facility] Comment on above: Order Comment: Speci men Type: BLOOD SPECIMENOrdering Facility: [facility] Address: [address] [place] [address] Performed By: #### 5 7021-8 ####[facility] LABCLIA [id number] [place] [address] [place] Lymphocytes (Bld) [#/Vol] 1.71 10*3/uL Normal 1.00-4.00 [facility] Comment on above: Order Comment: Speci men Type: BLOOD SPECIMENOrdering Facility: [facility] Address: [address] [place] [address] Performed By: #### 5 7021-8 ####[facility] LABCLIA [id number] [place] [address] [place] Lymphocytes/100 WBC (Bld) 23.2 % Normal [facility] Comment on above: Order Comment: Speci men Type: BLOOD SPECIMENOrdering Facility: [facility] Address: [address] [place] [address] Performed By: #### 5 7021-8 ####[facility] LABCLIA [id number] [place] [address] [place] MCH (RBC) [Entitic mass] 34.1 pg High 26.0-34.0 [facility] Comment on above: Order Comment: Speci men Type: BLOOD SPECIMENOrdering Facility: [facility] Address: [address] [place] [address] Performed By: #### 5 7021-8 ####[facility] LABCLIA [id number] [place] [address] [place] MCHC (RBC) [Mass/Vol] 34.3 g/dL Normal 30.5-36.0 [facility] Comment on above: Order Comment: Speci men Type: BLOOD SPECIMENOrdering Facility: [facility] Address: [address] [address] Performed By: #### 5 7021-8 ####[facility] LABIA [id number] [place] [address] [place] MCV (RBC) [Entitic vol] 99.5 fL Normal 80.0-100.0 [facility] Comment on above: Order Comment: Speci men Type: BLOOD SPECIMENOrdering Facility: [facility] Address: [address] [address] Performed By: #### 5 7021-8 ####[facility] LABCLIA [id number] [place] [address] [place] Monocytes (Bld) [#/Vol] 0.57 10*3/uL Normal <0.87 [facility] Comment on above: Order Comment: Speci men Type: BLOOD SPECIMENOrdering Facility: [facility] Address: [address] [address] Performed By: #### 5 7021-8 ####[facility] LABIA [id number] [place] [address] [place] Monocytes/100 WBC (Bld) 7.7 % Normal [facility] Comment on above: Order Comment: Speci men Type: BLOOD SPECIMENOrdering Facility: [facility] Address: [address] [place], [place] [address] Performed By: #### 5 7021-8 ####[facility] LABIA [id number] [place] [address] [place] Neutrophils (Bld) [#/Vol] 4.73 10*3/uL Normal 1.45-7.50 [facility] Comment on above: Order Comment: Speci men Type: BLOOD SPECIMENOrdering Facility: [facility] Address: [address] [place], [place] [address] Performed By: #### 5 7021-8 ####[facility] LABCLIA [id number] [place] [address] [place] Neutrophils/100 WBC (Bld) 64.3 % Normal [facility] Comment on above: Order Comment: Speci men Type: BLOOD SPECIMENOrdering Facility: [facility] Address: [address] [place] [address] Performed By: #### 5 7021-8 ####[facility] LABCLIA [id number] [place] [address] [place] Nucleated RBC (Bld) [#/Vol] 10*3/uL Normal <0.01 [facility] Comment on above: Order Comment: Speci men Type: BLOOD SPECIMENOrdering Facility: [facility] Address: [address] [place] [address] Performed By: #### 5 7021-8 ####[facility] LABIA [id number] [place] [address] [place] [facility] Nucleated RBC/100 WBC (Bld) [Ratio] 0.0 /100 WBC Normal [facility] Comment on above: Order Comment: Speci men Type: BLOOD SPECIMENOrdering Facility: [facility] Address: [address] [place] [address] Performed By: #### 5 7021-8 ####[facility] LABIA [id number] [place] [address] [place] Platelet mean volume (Bld) [Entitic vol] 9.6 fL Normal 9.0-12.7 [facility] Comment on above: Order Comment: Speci men Type: BLOOD SPECIMENOrdering Facility: [facility] Address: [address] [place] [address] Performed By: #### 5 7021-8 ####[facility] LABCLIA [id number] MEADOW SARAH [id number] [address] [place] Platelets (Bld) [#/Vol] 277 10*3/uL Normal 150-400 [facility] Comment on above: Order Comment: Speci men Type: BLOOD SPECIMENOrdering Facility: [facility] Address: [address] [place] [address] Performed By: #### 5 7021-8 ####[facility] LABCLIA [id number] [place] [address] [place] RBC (Bld) [#/Vol] 4.37 10*6/uL Normal 3.90-5.20 [facility] Comment on above: Order Comment: Speci men Type: BLOOD SPECIMENOrdering Facility: [facility] Address: [address] [place] [address] Performed By: #### 5 7021-8 ####[facility] LABCLIA [id number] [place] [address] [place] WBC (Bld) [#/Vol] 7.37 10*3/uL Normal 3.70-11.00 [facility] Comment on above: Order Comment: Speci men Type: BLOOD SPECIMENOrdering Facility: [facility] Address: [address] [place] [address] Performed By: #### 5 7021-8 ####[facility] LABCLIA [id number] [place] [address] [place] Basophils (Bld) [#/Vol] 0.04 10*3/uL <0.11 k/uL [facility] Basophils/100 WBC (Bld) 0.5 % [facility] Differential cell count method Nom (Bld) Auto [facility] Eosinophils (Bld) [#/Vol] 0.29 10*3/uL <0.46 k/uL [facility] Eosinophils/100 WBC (Bld) 3.9 % [facility] Erythrocyte distribution width (RBC) [Ratio] 12.1 % 11.5 - 15.0 % [facility] Hematocrit (Bld) [Volume fraction] 43.5 % 36.0 - 46.0 % [facility] Hemoglobin (Bld) [Mass/Vol] 14.9 g/dL 11.5 - 15.5 g/dL [facility] Immature granulocytes (Bld) [#/Vol] 0.03 10*3/uL <0.10 k/uL [facility] Immature granulocytes/100 WBC (Bld) 0.4 % [facility] Lymphocytes (Bld) [#/Vol] 1.71 10*3/uL 1.00 - 4.00 k/uL [facility] Lymphocytes/100 WBC (Bld) 23.2 % [facility] MCH (RBC) [Entitic mass] 34.1 pg High 26.0 - 34.0 pg [facility] MCHC (RBC) [Mass/Vol] 34.3 g/dL 30.5 - 36.0 g/dL [facility] MCV (RBC) [Entitic vol] 99.5 fL 80.0 - 100.0 fL [facility] Monocytes (Bld) [#/Vol] 0.57 10*3/uL <0.87 k/uL [facility] Monocytes/100 WBC (Bld) 7.7 % [facility] Neutrophils (Bld) [#/Vol] 4.73 10*3/uL 1.45 - 7.50 k/uL [facility] Neutrophils/100 WBC (Bld) 64.3 % [facility] Nucleated RBC (Bld) [#/Vol] <0.01 k/uL [facility] Nucleated RBC/100 WBC (Bld) [Ratio] 0.0 /100 WBC [facility] Platelet mean volume (Bld) [Entitic vol] 9.6 fL 9.0 - 12.7 fL [facility] Platelets (Bld) [#/Vol] 277 10*3/uL 150 - 400 k/uL [facility] RBC (Bld) [#/Vol] 4.37 10*6/uL 3.90 - 5.2 0 m/uL [facility] WBC (Bld) [#/Vol] 7.37 10*3/uL 3.70 - 11. 00 k/uL [facility] CNOVon 07-07-2022 CNOV Office Visit ([facility] ) KAILA VASQUEZ ([id number]) 1980 F Date Time Provider Department 07/07/22 8:00 AM GLENROY SYED During your visit today, we recorded the following information about you: Pulse Blood pressure Weight Height 82/minute 134/88 112 kg 1.626 m Glenroy Syed APRN.CHANNEL PROCESS PLANT OPERATOR 07/07/2022 12:28 PM Signed [facility] Neurology New Patient Evaluation CHIEF [...] over a month. She has seen an photographic supervisor and was told she was having occular migraine by her clinical data associate. A couple times a month she gets [...] PVC (premature ventricular contraction) SVT (supraventricular tachycardia) ([facility]) Vitamin D deficiency No past surgical history on file. ALLERGIES Not on File Social History Tobacco Use Smoking status: Never Smokeless tobacco: Never (more content not included)... Normal [facility] CNPNon 07-07-2022 CNPN Telephone ([facility]) KAILA VASQUEZ ([id number]) 1980 F Date Time Provider Department 07/07/22 GLENROY SYED NEVÍCTORFV During your visit today, we recorded the following information about you: Cinthya Salgado 07/07/2022 8:52 AM Signed Received medical records from [facility]. Uploaded to chart and forwarded for review. Kajal Gillespie RN 07/07/2022 9:14 AM Signed Noted. Provider notified. Allergies As of Date: 07/07/2022 (Not on File) Date Reviewed: 07/07/2022 Reviewed by: Elaine Bolaños Ma - Fully Assessed Reason for Visit: Received Outside Medical Records [[id number]] Prescriptions as of 07/19/2022 - metoprolol tartrate, short acting, (LOPRESSOR) 50 mg tablet metoprolol tartrate 50 mg tablet Facility-Administered Medications as of 07/19/2022 - perflutren lipid microspheres 1.3 mL in NaCl (PF) 0.9% 10 mL injection (DEFINITY) - sodium chloride 0.9 % (flush) 10 mL (BD POSIFLUSH) Problem List As Of Date: 07/07/2022 (None) Encounter Status:Closed by CINTHYA SALGADO on 07/19/22 Normal [facility] Centromere Ab IF Ql (S)on Centromere Ab Qn (S) <0.2 Normal <1.[address] [facility] [address] [facility] Comment on above: Order Comment: Speci men Type: BLOOD SPECIMENOrdering Facility: [facility] Address: [address] [place] [address] Result Comment: Anti -centromere antibody is used as in aid in diagnosis of systemic sclerosis. Clinical correlation is required. Test Methodology: Multiplex flow immunoassay. Performed By: #### 2 9374-6, 70249-3, 87783-3, 20373-4, 38855-5, ANAIFR, 50295-7, 18294-5, 46880-4, 77298-8 ####[facility] LABCLIA [id number] [place] [address] [place] CENTROMERE AB QUAL Negative Normal Negative [facility] Comment on above: Order Comment: Speci men Type: BLOOD SPECIMENOrdering Facility: [facility] Address: [address] [place] [address] Performed By: #### 2 9374-6, 10663-2, 52699-4, 29939-9, 80989-2, ANAIFR, 76008-8, 21117-1, 64228-9, 68778-1 ####[facility] LABIA [id number] [place] [address] [place] Chromatin Ab Qnon 07-07-2022 CHROMATIN AB QUAL Negative Normal Negative [facility] Comment on above: Order Comment: Speci men Type: BLOOD SPECIMENOrdering Facility: [facility] Address: [address] [place] [address] Performed By: #### 2 9374-6, 01563-9, 82376-9, 62693-5, 62368-0, ANAIFR, 81004-5, 21853-7, 01575-0, 59664-8 ####[facility] LABIA [id number] [place] [address] [place] Chromatin Ab SerPl-aCncon Chromatin Ab Qn <0.2 Normal <1.0 [facility] Comment on above: Order Comment: Speci men Type: BLOOD SPECIMENOrdering Facility: [facility] Address: [address] [place] [address] Result Comment: Test Methodology: Multiplex flow immunoassay. Performed By: #### 2 9374-6, 48748-6, 91803-1, 85711-1, 15037-6, ANAIFR, 11619-6, 28220-3, 15260-2, 89126-9 ####[facility] LABCLIA [id number] [place] [address] [place] KAMRAN Jo1 Ab Ser-aCncon 2021 Radha-1 extractable nuclear Ab Qn (S) <0.2 Normal <1.0 [facility] Comment on above: Order Comment: Speci men Type: BLOOD SPECIMENOrdering Facility: [facility] Address: [address] [place] [address] Performed By: #### 2 9374-6, 42263-6, 31586-2, 09520-9, 30252-4, ANAIFR, 75246-1, 35233-5, 67554-6, 15244-6 ####[facility] LABIA [id number] [place] [address] [place] KAMRAN PROTOTYPE ENGINEER MANAGER Ab Ser-aCncon 2021 Ribonucleoprotein extractable nuclear Ab Qn (S) <0.2 Normal <1.0 [facility] Comment on above: Order Comment: Speci men Type: BLOOD SPECIMENOrdering Facility: [facility] Address: [address] [place] [address] Performed By: #### 2 9374-6, 60762-2, 46699-9, 17763-9, 05208-9, ANAIFR, 79455-5, 37666-2, 97034-1, 39603-5 ####[facility] LABCLIA [id number] [place] [address] [place] KAMRAN SM IgG Ser-aCncon 2021 Osborne extractable nuclear IgG Qn (S) <0.2 Normal <1.0 [facility] Comment on above: Order Comment: Speci men Type: BLOOD SPECIMENOrdering Facility: [facility] Address: [address] [place] [address] Performed By: #### 2 9374-6, 09475-7, 79825-0, 74570-5, 29278-5, ANAIFR, 91592-1, 37380-7, 62756-9, 75493-4 ####[facility] [id number] [address] [place] KAMRAN SS-A Ab Ser-aCncon 07-07 Sjogrens syndrome-A extractable nuclear Ab Qn (S) 0.3 AI Normal <1.0 [facility] Comment on above: Order Comment: Speci men Type: BLOOD SPECIMENOrdering Facility: [facility] Address: [address] [place] [address] Result Comment: Test Methodology: Multiplex flow immunoassay. Performed By: #### 2 9374-6, 72969-4, 04960-5, 37871-1, 02058-2, ANAIFR, 59095-3, 21633-6, 37511-5, 16299-4 ####[facility] LABIA [id number] [address] [place] KAMRAN SS-B Ab Ser-aCncon 07-07 Sjogrens syndrome-B extractable nuclear Ab Qn (S) <0.2 Normal <1.0 [facility] Comment on above: Order Comment: Speci men Type: BLOOD SPECIMENOrdering Facility: [facility] Address: [address] [place] [address] Result Comment: Anti -SSB (anti-La) antibody is used as an aid in diagnosis of a variety of systemic autoimmune diseases, especially for Sjogren's syndrome and systemic lupus erythematosus. Clinical correlation is required. Test Methodology: Multiplex flow immunoassay. Performed By: #### 2 9374-6, 55295-5, 54535-2, 89280-8, 24156-4, ANAIFR, 62636-7, 40146-0, 12366-0, 67899-8 ####[facility] [id number] [place] [address] [place] Radha-1 extractable nuclear Ab Qn (S)on 07-07-2022 RADHA 1 ANTIBODY QUAL Negative Normal Negative [facility] Comment on above: Order Comment: Speci men Type: BLOOD SPECIMENOrdering Facility: [facility] Address: [address] [place] [address] Result Comment: Anti -RADHA-1 antibody is used as an aid in diagnosis of polymyositis and dermatomyositis especially with pulmonary involvement. A negative result cannot rule out polymyositis or dermatomyositis. Clinical correlation is required. Test Methodology: Multiplex flow immunoassay. Performed By: #### 2 9374-6, 30556-5, 60187-5, 43492-3, 22811-5, ANAIFR, 00897-0, 55057-4, 02476-6, 39456-4 ####[facility] [id number] [place] [address] [place] Ribonucleoprotein extractabl e nuclear Ab Qn (S)on 07-07-2022 ANTI-PROTOTYPE ENGINEER MANAGER QUAL Negative Normal Negative [facility] Comment on above: Order Comment: Speci betty Type: BLOOD SPECIMENOrdering Facility: [facility] Address: [address] [place] [address] Performed By: #### 2 9374-6, 98334-6, 48510-1, 73434-4, 87538-6, ANAIFR, 20510-8, 39796-5, 38015-3, 38283-8 ####[facility] [id number] [place] [address] [place] RIBOSOMAL PROTOTYPE ENGINEER MANAGER QUAL Negative Normal Negative [facility] Comment on above: Order Comment: Speci men Type: BLOOD SPECIMENOrdering Facility: [facility] Address: [address] [place], [place] [id number] Result Comment: Anti -Ribosomal RNA (Ribosomal P) antibody is used as an aid in diagnosis of systemic autoimmune diseases especially systemic lupus erythematosus and mixed connective tissue disease. Cross-reactivity with Anti-osborne antibody is not uncommon. Clinical correlation is required. Test Methodology: Multiplex flow immunoassay. Performed By: #### 2 9374-6, 87652-1, 70807-6, 96758-8, 49341-4, ANAIFR, 83443-7, 23304-4, 57555-4, 20908-0 ####[facility] LABCLIA [id number] [address] [place] SCL-70 extractable nuclear I gG IA Qn (S)on 07-07-2022 SCLERODERMA AB QUAL Negative Normal Negative [facility] Comment on above: Order Comment: Speci men Type: BLOOD SPECIMENOrdering Facility: [facility] Address: [address] [place] [address] Performed By: #### 2 9374-6, 23229-0, 49085-7, 88829-7, 16106-8, ANAIFR, 54529-8, 97747-5, 54510-6, 26078-0 ####[facility] LABIA [id number] [address] [place] SCLERODERMA IGG AB <0.2 Normal <1.0 [facility] Comment on above: Order Comment: Speci men Type: BLOOD SPECIMENOrdering Facility: [facility] Address: [address] [place] [address] Result Comment: Scl- 70/Scleroderma antibody test is used as an aid in diagnosis of systemic sclerosis especially the diffuse cutaneous form. A negative result cannot rule out systemic sclerosis. The final interpretation should consider clinical picture and other test results such as anti-centromere antibody. Test Methodology: Multiplex flow immunoassay. Performed By: #### 2 9374-6, 09366-2, 84005-7, 90968-4, 73630-6, ANAIFR, 54150-0, 70855-3, 90166-1, 90680-8 ####[facility] LABCLIA [id number] [address] [place] Sjogrens syndrome-A extracta ble nuclear Ab Qn (S)on 07-07-2022 SSA ANTIBODY QUAL Negative Normal Negative [facility] Comment on above: Order Comment: Speci men Type: BLOOD SPECIMENOrdering Facility: [facility] Address: [address] [place] [address] Performed By: #### 2 9374-6, 86495-8, 82959-9, 43089-5, 00688-6, ANAIFR, 55179-0, 73735-2, 63243-7, 85195-7 ####[facility] LABIA [id number] [address] [place] Sjogrens syndrome-B extracta ble nuclear Ab Qn (S)on 07-07-2022 SSB ANTIBODY QUAL Negative Normal Negative [facility] Comment on above: Order Comment: Speci men Type: BLOOD SPECIMENOrdering Facility: [facility] Address: [address] [place] [address] Performed By: #### 2 9374-6, 38983-4, 26025-2, 34405-5, 15374-3, ANAIFR, 88507-0, 27990-3, 94291-4, 24230-1 ####[facility] [id number] [address] [place] Osborne extractable nuclear Ig G Qn (S)on 07-07-2022 SM ANTIBODY QUAL Negative Normal Negative [facility] Comment on above: Order Comment: Speci men Type: BLOOD SPECIMENOrdering Facility: [facility] Address: [address] [place] [address] Result Comment: Anti -Sm (Osborne) antibody is used as an aid in diagnosis of systemic lupus erythematosus and its presence is associated with renal disease. A negative result cannot rule out systemic lupus erythematosus. Clinical correlation is required. Test Methodology: Multiplex flow immunoassay. Performed By: #### 2 9374-6, 96173-4, 37262-2, 70478-5, 26252-3, ANAIFR, 58053-2, 16756-4, 02506-2, 14333-4 ####[facility] [id number] [place] [address] [place] TSH BLDon 07-07-2022 TSH Qn 0.824 m[IU]/L 0.270 - 4.200 mIU/L [facility] TSH SerPl-aCncon 07-07-2022 TSH Qn 0.824 m[IU]/L Normal 0.270-4.200 [facility] Comment on above: Order Comment: Speci men Type: BLOOD SPECIMENOrdering Facility: [facility] Address: [address] [place], [place] [id number] Result Comment: If t he patient is , TSH reference range varies by gestational period: First Trimester (weeks 9-12): 0.180-2.990 mIU/L Second Trimester: 0.110-3.980 mIU/L Third Trimester: 0.480-4.710 mIU/L Eliezer Bangura et al. A Practical Approach for the Verifications and Determination of Site- and Trimester-Specific Reference Intervals for Thyroid Function tests in . Thyroid, 2019:29:3:412-420. Rob Forrest, et al. 2017 Guidelines of the [place] Thyroid Association for the Diagnosis and Management of Thyroid Disease during and the . Thyroid, 2017:27:3:315-389. Performed By: #### 3 016-3, 2132-9 ####[facility] [id number] [place] [id number] [place] VITAMIN B12 BLOODon 07-07-20 22 Cobalamin (Vitamin B12) [Mass/Vol] 618 pg/mL 232 - 1,245 pg/mL [facility] Vit B12 SerPl-mCncon 022 Cobalamin (Vitamin B12) [Mass/Vol] 618 pg/mL Normal 232-1245 [facility] Comment on above: Order Comment: Speci men Type: BLOOD SPECIMENOrdering Facility: [facility] Address: [address] [place] [address] Performed By: #### 3 016-3, 2132-9 ####[facility] LABCLIA [id number] [place] [address] [place] dsDNA Ab Ser IA-aCncon 07-07 DNA double strand Ab IA Qn (S) <12 Normal <30 [facility] Comment on above: Order Comment: Speci men Type: BLOOD SPECIMENOrdering Facility: [facility] Address: [address] [place] [address] Result Comment: Nega tive for ds DNA Antibodies. <30 IU/mL Negative 30-74 IU/mL Equivocal >74 IU/mL Positive Performed By: #### 2 9374-6, 94805-4, 73505-9, 07177-4, 92348-3, ANAIFR, 99551-6, 47664-1, 97085-5, 79279-7 ####[facility] LABCLIA [id number] [place] [address] [place] HLA B 27on 04-26-2022 HLA-B27 Negative Normal [facility] Comment on above: Result Comment: HLA- B*27 Negative B27 allele interpretation for all loci based on IMGT/HLA database version 3.44 This test was developed and its performance characteristics determined by [facility]. It has not been cleared or approved by the Food and Drug Administration. [facility] CLIA ID Number [id number] . This test was performed using PCR (Polymerase Chain Reaction)/SSOP (Sequence Specific Oligonucleotide Probes) technique. SBT (Sequence Based Typing) and/or SSP (Sequence Specific Primers) may be used as supplemental methods when necessary. Please contact [facility] Customer Service at if you have any questions. . Director of [facility] Laboratory Dr Abdiaziz Shook, PhD Performed By: #### C VDAGA #### [facility] [address] [address] [address] Christos Fallon 25-HYDROXY VIT D (D2+D3 [facility] ) LC/MS-MSon 04-23-2022 25-Hydroxy, Vitamin D 26 ng/mL Critically low [facility] Comment on above: Result Comment: Refe rence Range: All Ages: Target levels 30 - 100 Performed By: #### C MP, TSH, HSTROPN #### [facility] [address] [place] [address] Dr. Christos Fallon 25-Hydroxy, Vitamin D-2 <1.0 Normal [facility] Comment on above: Result Comment: This test was developed and its performance characteristics determined by [facility]. It has not been cleared or approved by the Food and Drug Administration. Performed By: #### C MP, TSH, HSTROPN #### [facility] [address] [place] [address] Dr. Christos Fallon 25-Hydroxy, Vitamin D-3 26 ng/mL Normal [facility] Comment on above: Result Comment: This test was developed and its performance characteristics determined by [facility]. It has not been cleared or approved by the Food and Drug Administration. Performed By: #### C MP, TSH, HSTROPN #### [facility] [address] [place] [address] Dr. Christos Fallon REVERSE T3on 04-20-2022 Reverse T3, Serum 11.2 ng/dL Normal 9.2-24.1 [facility] Comment on above: Result Comment: This test was developed and its performance characteristics determined by [facility]. It has not been cleared or approved by the Food and Drug Administration. Performed By: #### C VDAGA #### [facility] [address] [place] [address] Dr. Christos Fallon THYROID ANTIBODIESon 022 Thyroglobulin Antibody <1.0 Normal 0.0-0.9 [facility] Comment on above: Result Comment: Thyr oglobulin Antibody measured by [employer] Methodology Performed By: #### C VDAGA #### [facility] [address] [place] [address] Dr. Christos Fallon Thyroid Peroxidase (TPO) Ab 11 IU/mL Normal 0-34 [facility] Comment on above: Performed By: #### C VDAGA #### [facility] [address] [place] [address] Dr. Christos Fallon ANTISTREPTOLYSIN O AB (ASO)o n 04-16-2022 Antistreptolysin O Ab 21.8 IU/mL Normal 0.0-200.0 [facility] Comment on above: Performed By: #### C MP, TSH, HSTROPN #### [facility] [address] [place] [address] Dr. Christos Fallon T3, TOTAL (TRIIODOTHYRONINE) on 04-16-2022 T3, TOTAL 115 ng/dL Normal 71-180 [facility] Comment on above: Performed By: #### C MP, TSH, HSTROPN #### [facility] [address] [place] [address] Dr. Christos Flalon FREE T3on 04-14-2022 FREE T3 2.46 pg/mlL Normal 2.18-3.98 [facility] Comment on above: Performed By: #### C MP, TSH, HSTROPN #### [facility] [address] [place] [address] Dr. Christos Fallon FREE T4on 04-14-2022 Free T4 [Mass/Vol] 0.88 ng/dL Normal 0.76-1.46 [facility] Comment on above: Performed By: #### C VDAGA #### [facility] [address] [place] [address] Dr. Christos Fallon TSHon 04-14-2022 TSH 1.027 uIU/mL Normal 0.358-3.740 [facility] Comment on above: Performed By: #### C MP, TSH, HSTROPN #### [facility] [address] [place] [address] Dr. Christos Fallon CBC AUTO DIFFon 03-22-2022 BASO # 0.1 103/ul Normal 0.0-0.1 [facility] Comment on above: Performed By: #### C MP, TSH, HSTROPN #### [facility] [address] [place] [address] Dr. Christos Fallon Basophils/100 WBC (Bld) 0.7 % Normal 0.2-2.0 [facility] Comment on above: Performed By: #### C MP, TSH, HSTROPN #### [facility] [address] [place] [address] Dr. Christos Fallon EO # 0.3 103/ul Normal 0.0-0.7 [facility] Comment on above: Performed By: #### C MP, TSH, HSTROPN #### [facility] [address] [place] [address] Dr. Christos Fallon Eosinophils/100 WBC (Bld) 3.4 % Normal 0.9-7.0 [facility] Comment on above: Performed By: #### C MP, TSH, HSTROPN #### [facility] [address] [place] [address] Dr. Christos Fallon Erythrocyte distribution width (RBC) [Ratio] 12.5 % Normal 11.0-15.0 [facility] Comment on above: Performed By: #### C MP, TSH, HSTROPN #### [facility] [address] [place] [address] Dr. Christos Fallon Hematocrit (Bld) [Volume fraction] 41.3 % Normal 36.0-48.0 [facility] Comment on above: Performed By: #### C MP, TSH, HSTROPN #### [facility] [address] [place] [address] Dr. Christos Fallon Hemoglobin (Bld) [Mass/Vol] 14.2 g/dL Normal 12.0-16.0 [facility] Comment on above: Performed By: #### C MP, TSH, HSTROPN #### [facility] [address] [place] [address] Dr. Christos Fallon IG # 0.03 10e3/ul Normal 0.00-0.03 [facility] Comment on above: Performed By: #### C MP, TSH, HSTROPN #### [facility] [address] [place] [address] Dr. Christos Fallon IG % 0.4 % Normal 0.0-0.5 [facility] Comment on above: Performed By: #### C MP, TSH, HSTROPN #### [facility] [address] [place] [address] Dr. Christos Fallon LYMPH # 2.3 103/ul Normal 1.2-3.8 [facility] Comment on above: Performed By: #### C MP, TSH, HSTROPN #### [facility] [address] [place] [address] Dr. Christos Fallon Lymphocytes/100 WBC (Bld) 31.3 % Normal 20.5-60.0 [facility] Comment on above: Performed By: #### C MP, TSH, HSTROPN #### [facility] [address] [place] [address] Dr. Christos Fallon MANUAL DIFF REQ NO Normal [facility] Comment on above: Performed By: #### C MP, TSH, HSTROPN #### [facility] [address] [place] [address] Dr. Christos Fallon MCH (RBC) [Entitic mass] 34.8 pg Critically high 26.7-34.0 [facility] Comment on above: Performed By: #### C MP, TSH, HSTROPN #### [facility] [address] [place] [address] Dr. Christos Fallon MCHC (RBC) [Mass/Vol] 34.4 g/dL Normal 29.9-35.2 [facility] Comment on above: Performed By: #### C MP, TSH, HSTROPN #### [facility] [address] [place] [address] Dr. Christos Fallon MCV (RBC) [Entitic vol] 101.2 fL Critically high 81.0-99.0 [facility] Comment on above: Performed By: #### C MP, TSH, HSTROPN #### [facility] [address] [place] [address] Dr. Christos Fallon MONO # 0.9 103/ul Critically high 0.3-0.8 [facility] Comment on above: Performed By: #### C MP, TSH, HSTROPN #### [facility] [address] [place] [address] Dr. Christos Fallon Monocytes/100 WBC (Bld) 12.0 % Normal 1.7-12.0 [facility] Comment on above: Performed By: #### C MP, TSH, HSTROPN #### [facility] [address] [address] [address] Christos Fallon NEUT # 3.9 103/ul Normal 1.4-6.5 [facility] Comment on above: Performed By: #### C MP, TSH, HSTROPN #### [facility] [address] [address] [address] Christos Fallon Neutrophils/100 WBC (Bld) 52.2 % Normal 43.0-75.0 [facility] Comment on above: Performed By: #### C MP, TSH, HSTROPN #### [facility] [address] [place] [address] Dr. Christos Fallon Platelet mean volume (Bld) [Entitic vol] 9.7 fL Normal 9.5-13.5 [facility] Comment on above: Performed By: #### C MP, TSH, HSTROPN #### [facility] [address] [place] [address] Dr. Christos Fallon PLT 296 103/ul Normal 150-450 [facility] Comment on above: Performed By: #### C MP, TSH, HSTROPN #### [facility] [address] [place] [address] Dr. Christos Fallon RBC 4.08 106/ul Critically low 4.20-5.40 [facility] Comment on above: Performed By: #### C MP, TSH, HSTROPN #### [facility] [address] [place] [address] Dr. Christos Fallon WBC 7.4 103/ul Normal 4.0-11.0 [facility] Comment on above: Performed By: #### C MP, TSH, HSTROPN #### [facility] [address] [place] [address] HEAD WO CONon [...] PAL WETZEL Date: 2022-03-22 17:41 Normal [facility] ER URINE PROFILEon 2 Bilirubin Ql (U) Negative Normal NEGATIVE [facility] Comment on above: Performed By: #### C VDAGA #### [facility] [address] [place] [address] Dr. Christos Fallon Clarity (U) CLOUDY Abnormal CLEAR [facility] Comment on above: Performed By: #### C VDAGA #### [facility] [address] [place] [address] Dr. Christos Fallon Color (U) LT. YELLOW Normal YELLOW [facility] Comment on above: Performed By: #### C VDAGA #### [facility] [address] [place] [address] Dr. Christos Fallon ERUAHD A micrscopic examination will be performed if indicated. Normal [facility] Comment on above: Performed By: #### C VDAGA #### [facility] [address] [place] [address] Dr. Christos Fallon Glucose Ql (U) Negative Normal NEGATIVE [facility] Comment on above: Performed By: #### C VDAGA #### [facility] [address] [place] [address] Dr. Christos Fallon Hemoglobin Ql (U) Negative Normal NEGATIVE [facility] Comment on above: Performed By: #### C VDAGA #### [facility] [address] [place] [address] Dr. Christos Fallon Ketones Ql (U) Negative Normal NEGATIVE [facility] Comment on above: Performed By: #### C VDAGA #### [facility] [address] [place] [address] Dr. Christos Fallon LEUKOCYTES Negative Normal NEGATIVE [facility] Comment on above: Performed By: #### C VDAGA #### [facility] [address] [address] [address] Christos Fallon Nitrite Ql (U) Negative Normal NEGATIVE [facility] Comment on above: Performed By: #### C VDAGA #### [facility] [address] [place] [address] Dr. Christos Fallon pH (U) 6.0 [pH] Normal 5-9 [facility] Comment on above: Performed By: #### C VDAGA #### [facility] [address] [place] [address] Dr. Christos Fallon SPEC GRAVITY 1.010 Normal 1.005-<=1.02 5 [facility] Comment on above: Performed By: #### C VDAGA #### [facility] [address] [place] [address] Dr. Christos Fallon UA PROTEIN Negative Normal NEGATIVE/ TRACE [facility] Comment on above: Performed By: #### C VDAGA #### [facility] [address] [place] [address] Dr. Christos Fallon UR MICRO IND NOT INDICATED Normal [facility] Comment on above: Performed By: #### C VDAGA #### [facility] [address] [place] [address] Dr. Christos Fallon Urobilinogen Qn (U) 0.2 {Peyman'U}/dL Normal 0.2 - 1. 0 [facility] Comment on above: Performed By: #### C VDAGA #### [facility] [address] [place] [address] Dr. Christos Fallon PROF 14(COMP METB)on 022 Albumin [Mass/Vol] 3.6 g/dL Normal 3.4-5.0 [facility] Comment on above: Performed By: #### C MP, HSTROPN, TSH #### [facility] [address] [address] [address] Christos Fallon Albumin/Globulin [Mass ratio] 0.9 {ratio} Normal [facility] Comment on above: Performed By: #### C MP, HSTROPN, TSH #### [facility] [address] [place] [address] Dr. Christos Fallon ALP [Catalytic activity/Vol] 83 U/L Normal 46-116 [facility] Comment on above: Performed By: #### C MP, HSTROPN, TSH #### [facility] [address] [place] [address] Dr. Christos Fallon ALT [Catalytic activity/Vol] 32 U/L Normal 14-59 [facility] Comment on above: Performed By: #### C MP, HSTROPN, TSH #### [facility] [address] [address] [address] Christos Fallon Anion gap [Moles/Vol] 15.4 mmol/L Normal [facility] Comment on above: Performed By: #### C MP, HSTROPN, TSH #### [facility] [address] [address] [address] Christos Fallon AST [Catalytic activity/Vol] 15 U/L Normal 15-37 [facility] Comment on above: Performed By: #### C MP, HSTROPN, TSH #### [facility] [address] [address] [address] Christos Fallon Bilirubin [Mass/Vol] 0.3 mg/dL Normal 0.2-1.0 [facility] Comment on above: Performed By: #### C MP, HSTROPN, TSH #### [facility] [address] [address] [address] Christos Fallon Calcium [Mass/Vol] 8.9 mg/dL Normal 8.5-10.1 [facility] Comment on above: Performed By: #### C MP, HSTROPN, TSH #### [facility] [address] [address] [address] Christos Fallon Chloride [Moles/Vol] 102 mmol/L Normal 98-107 [facility] Comment on above: Performed By: #### C MP, HSTROPN, TSH #### [facility] [address] [address] [address] Christos Fallon CO2 [Moles/Vol] 22.7 mmol/L Normal 21.0-32.0 [facility] Comment on above: Performed By: #### C RAY, HSTROPN, TSH #### [facility] [address] [place] [address] Dr. Christos Fallon Creatinine [Mass/Vol] 0.97 mg/dL Normal 0.55-1.02 [facility] Comment on above: Performed By: #### C MP, HSTROPN, TSH #### [facility] [address] [place] [address] Dr. Christos Fallon EGFR-AF CHINESE >60 Normal >=60 [facility] Comment on above: Performed By: #### C RAY, HSTROPN, TSH #### [facility] [address] [place] [address] Dr. Christos Fallon EGFR-NON AF CHINESE >60 Normal >=60 [facility] Comment on above: Performed By: #### C MP, HSTROPN, TSH #### [facility] [address] [place] [address] Dr. Christos Fallon Globulin (S) [Mass/Vol] 3.8 g/dL Normal [facility] Comment on above: Performed By: #### C MP, HSTROPN, TSH #### [facility] [address] [place] [address] Dr. Christos Fallon Glucose [Mass/Vol] 104 mg/dL Normal 74-106 [facility] Comment on above: Performed By: #### C MP, HSTROPN, TSH #### [facility] [address] [place] [address] Dr. Christos Fallon Potassium [Moles/Vol] 4.1 mmol/L Normal 3.5-5.1 [facility] Comment on above: Performed By: #### C MP, HSTROPN, TSH #### [facility] [address] [place] [address] Dr. Christos Fallon Protein [Mass/Vol] 7.4 g/dL Normal 6.4-8.2 [facility] Comment on above: Performed By: #### C MP, HSTROPN, TSH #### [facility] [address] [place] [address] Dr. Christos Fallon Sodium [Moles/Vol] 136 mmol/L Normal 136-145 [facility] Comment on above: Performed By: #### C MP, HSTROPN, TSH #### [facility] [address] [place] [address] Dr. Christos Fallon Urea nitrogen [Mass/Vol] 17.0 mg/dL Normal 7.0-18.0 [facility] Comment on above: Performed By: #### C MP, HSTROPN, TSH #### [facility] [address] [place] [address] Dr. Christos Fallon Urea nitrogen/Creatinine [Mass ratio] 17.5 mg/mg Normal [facility] Comment on above: Performed By: #### C MP, HSTROPN, TSH #### [facility] [address] [place] [address] Dr. Christos Fallon TROPONIN, HIGH SENSITIVITYon 03-22-2022 HSTROP <4.0 Normal 4.0-51.3 [facility] Comment on above: Result Comment: CUT- OFF POINTS HAVE BEEN ESTABLISHED BASED ON THE FOURTH UNIVERSAL DEFINITIONS OF MYOCARDIAL INFARCTION. THE UPPER REFERENCE LIMIT (URL) OF TROPONIN, DEFINED THE 99TH PERCENTILE OF cTnI DISTRIBUTION IN A REFERENCE POPULATION, HAS BEEN CONFIRMED THE DECISION THRESHOLD FOR [place] DIAGNOSIS. Performed By: #### C MP, HSTROPN, TSH #### [facility] [address] [place] [address] Dr. Christos Fallon TSHon 03-22-2022 TSH 0.854 uIU/mL Normal 0.358-3.740 [facility] Comment on above: Performed By: #### C MP, HSTROPN, TSH #### [facility] [address] [address] [address] Christos Fallon ASYMPTOMATIC COVID-19 ANTIGE Non 03-03-2022 EUA Statement SEE BELOW Normal [facility] Comment on above: Result Comment: This test [...] sooner. Performed By: #### C VDAGA #### [facility] [address] [place] [address] Dr. Christos Fallon SARS-CoV-2 (COVID-19) RNA LEROY+probe Ql (Unsp spec) Positive Critically abnormal NEGATIVE [facility] Comment on above: Result Comment: SARS -CoV-2 antigen present; does not rule out coinfection with other pathogens. Performed By: #### C VDAGA #### [facility] [address] [place] [address] Dr. Christos Fallon [facility]-19 [facility]06 SARS-CoV-2 (COVID-19) RNA LEROY+probe Ql (Unsp spec) Detected Critically abnormal NOT DETECTED [facility] Comment on above: Result Comment: This test is not yet approved or cleared by the [place] FDA. When there are no FDA-approved or cleared tests available, and other criteria are met, FDA can make tests available under an emergency access mechanism called an Emergency Use Authorization (EUA). The EUA for this test is supported by the [place] of Health and Human Service's declaration that [...] By: #### C MP, TSH, HSTROPN #### [facility] [address] [place] [address] Dr. Christos Fallon CRPon 11-25-2021 CRP [Mass/Vol] mg/L Normal <=1.0 [facility] Comment on above: Performed By: #### C MP, TSH, HSTROPN #### [facility] [address] [place] [address] Dr. Christos Fallon VIT B12 AND FOLATEon 022 Cobalamin (Vitamin B12) [Mass/Vol] 329.0 pg/mL Normal 239.0-931.0 [facility] Comment on above: Performed By: #### C MP, TSH, HSTROPN #### [facility] [address] [place] [address] Dr. Christos Fallon FOLATE 8.50 ng/mL Normal >=2.76 [facility] Comment on above: Performed By: #### C MP, TSH, HSTROPN #### [facility] [address] [place] [address] Dr. Christos Fallon CBC AUTO DIFFon 11-19-2021 BASO # 0.1 103/ul Normal 0.0-0.1 [facility] Comment on above: Performed By: #### C BC #### [facility] [address] [place] [address] Dr. Christos Fallon Basophils/100 WBC (Bld) 0.8 % Normal 0.2-2.0 [facility] Comment on above: Performed By: #### C BC #### [facility] [address] [place] [address] Dr. Christos Fallon EO # 0.3 103/ul Normal 0.0-0.7 [facility] Comment on above: Performed By: #### C BC #### [facility] [address] [place] [address] Dr. Christos Fallon Eosinophils/100 WBC (Bld) 4.8 % Normal 0.9-7.0 [facility] Comment on above: Performed By: #### C BC #### [facility] [address] [place] [address] Dr. Christos Fallon Erythrocyte distribution width (RBC) [Ratio] 12.2 % Normal 11.0-15.0 [facility] Comment on above: Performed By: #### C BC #### [facility] [address] [place] [address] Dr. Christos Fallon Hematocrit (Bld) [Volume fraction] 41.9 % Normal 36.0-48.0 [facility] Comment on above: Performed By: #### C BC #### [facility] [address] [place] [address] Dr. Christos Fallon Hemoglobin (Bld) [Mass/Vol] 14.2 g/dL Normal 12.0-16.0 [facility] Comment on above: Performed By: #### C BC #### [facility] [address] [place] [address] Dr. Christos Fallon IG # 0.03 10e3/ul Normal 0.00-0.03 [facility] Comment on above: Performed By: #### C BC #### [facility] [address] [place] [address] Dr. Christos Fallon IG % 0.5 % Normal 0.0-0.5 [facility] Comment on above: Performed By: #### C BC #### [facility] [address] [place] [address] Dr. Christos Fallon LYMPH # 1.5 103/ul Normal 1.2-3.8 [facility] Comment on above: Performed By: #### C BC #### [facility] [address] [place] [address] Dr. Christos Fallon Lymphocytes/100 WBC (Bld) 24.6 % Normal 20.5-60.0 [facility] Comment on above: Performed By: #### C BC #### [facility] [address] [place] [address] Dr. Christos Fallon MANUAL DIFF REQ NO Normal [facility] Comment on above: Performed By: #### C BC #### [facility] [address] [place] [address] Dr. Christos Fallon MCH (RBC) [Entitic mass] 34.3 pg Critically high 26.7-34.0 [facility] Comment on above: Performed By: #### C BC #### [facility] [address] [place] [address] Dr. Christos Fallon MCHC (RBC) [Mass/Vol] 33.9 g/dL Normal 29.9-35.2 [facility] Comment on above: Performed By: #### C BC #### [facility] [address] [place] [address] Dr. Christos Fallon MCV (RBC) [Entitic vol] 101.2 fL Critically high 81.0-99.0 [facility] Comment on above: Performed By: #### C BC #### [facility] [address] [place] [address] Dr. Christos Fallon MONO # 0.5 103/ul Normal 0.3-0.8 [facility] Comment on above: Performed By: #### C BC #### [facility] [address] [place] [address] Dr. Christos Fallon Monocytes/100 WBC (Bld) 7.2 % Normal 1.7-12.0 [facility] Comment on above: Performed By: #### C BC #### [facility] [address] [place] [address] Dr. Christos Fallon NEUT # 3.9 103/ul Normal 1.4-6.5 [facility] Comment on above: Performed By: #### C BC #### [facility] [address] [place] [address] Dr. Christos Fallon Neutrophils/100 WBC (Bld) 62.1 % Normal 43.0-75.0 [facility] Comment on above: Performed By: #### C BC #### [facility] [address] [address] [address] Christos Fallon Platelet mean volume (Bld) [Entitic vol] 9.1 fL Critically low 9.5-13.5 [facility] Comment on above: Performed By: #### C BC #### [facility] [address] [address] [address] Christos Fallon PLT 301 103/ul Normal 150-450 [facility] Comment on above: Performed By: #### C BC #### [facility] [address] [address] [address] Christos Fallon RBC 4.14 106/ul Critically low 4.20-5.40 [facility] Comment on above: Performed By: #### C BC #### [facility] [address] [place] [address] Dr. Christos Fallon WBC 6.3 103/ul Normal 4.0-11.0 [facility] Comment on above: Performed By: #### C BC #### [facility] [address] [place] [address] Dr. Christos Fallon FREE T3on 11-19-2021 FREE T3 2.72 pg/mlL Critically low 2.77-5.27 [facility] Comment on above: Performed By: #### C MP, TSH, HSTROPN #### [facility] [address] [place] [address] Dr. Christos Fallon FREE T4on 11-19-2021 Free T4 [Mass/Vol] 1.09 ng/dL Normal 0.78-2.19 [facility] Comment on above: Performed By: #### C MP, TSH, HSTROPN #### [facility] [address] [place] [address] Dr. Christos Fallon GLYCOHEMOGLOBIN A1Con 2021 ADA RECOMMENDATION ADA THERAPEUTIC TARG ET 6.0 - 7.0 ACTION SUGGESTED > 7.0 Normal [facility] Comment on above: Performed By: #### A 1C #### [facility] [address] [place] [address] Dr. Christos Fallon Glucose [Mass/Vol] 105 mg/dL Normal [facility] Comment on above: Performed By: #### A 1C #### [facility] [address] [place] [address] Dr. Christos Fallon HbA1c (Bld) [Mass fraction] 5.3 % Normal <=6.0 [facility] Comment on above: Performed By: #### A 1C #### [facility] [address] [place] [address] Dr. Christos Fallon LIPID PROFILEon 11-19-2021 CHOL-HDL RATIO NORM SEE BELOW Normal [facility] Comment on above: Result Comment: 3.3 - 4.4 LOW RISK 4.4 - 7.1 AVERAGE RISK 7.1 - 11.0 MODERATE RISK >11.0 HIGH RISK Performed By: #### C MP, TSH, HSTROPN #### [facility] [address] [place] [address] Dr. Christos Fallon Cholesterol [Mass/Vol] 232 mg/dL Critically high <=200 [facility] Comment on above: Performed By: #### C MP, TSH, HSTROPN #### [facility] [address] [place] [address] Dr. Christos Fallon Cholesterol in HDL [Mass/Vol] 60 mg/dL Normal 40-60 [facility] Comment on above: Performed By: #### C MP, TSH, HSTROPN #### [facility] [address] [place] [address] Dr. Christos Fallon Cholesterol in LDL [Mass/Vol] 134.6 mg/dL Normal [facility] Comment on above: Performed By: #### C MP, TSH, HSTROPN #### [facility] [address] [place] [address] Dr. Christos Fallon Cholesterol.total/Cho lesterol in HDL [Mass ratio] 3.9 {ratio} Normal [facility] Comment on above: Performed By: #### C MP, TSH, HSTROPN #### [facility] [address] [place] [address] Dr. Christos Fallon HDL NORMAL > or = 60 mg/dl - LO W CARDIOVASCULAR RISK <40 mg/dl - HIGH CARDIOVASCULAR RISK Normal [facility] Comment on above: Performed By: #### C MP, TSH, HSTROPN #### [facility] [address] [address] [address] Christos Fallon LDL CALC NORMAL SEE BELOW Normal [facility] Comment on above: Result Comment: <100 mg/dl OPTIMAL 100 - 129 mg/dl NEAR OR ABOVE OPTIMAL 130 - 159 mg/dl BORDERLINE HIGH 160 - 189 mg/dl HIGH >190 mg/dl VERY HIGH Performed By: #### C MP, TSH, HSTROPN #### [facility] [address] [address] [address] Christos Fallon Triglyceride [Mass/Vol] 187 mg/dL Critically high <=150 [facility] Comment on above: Performed By: #### C MP, TSH, HSTROPN #### [facility] [address] [address] [address] Christos Fallon VLDL CALC 37.4 mg/dL Normal [facility] Comment on above: Performed By: #### C MP, TSH, HSTROPN #### [facility] [address] [address] [address] Christos Fallon PROF 14(COMP METB)on 022 Albumin [Mass/Vol] 3.8 g/dL Normal 3.4-5.0 [facility] Comment on above: Performed By: #### C MP, TSH, HSTROPN #### [facility] [address] [address] [address] Christos Fallon Albumin/Globulin [Mass ratio] 1.1 {ratio} Normal [facility] Comment on above: Performed By: #### C MP, TSH, HSTROPN #### [facility] [address] [address] [address] Christos Fallon ALP [Catalytic activity/Vol] 77 U/L Normal 46-116 [facility] Comment on above: Performed By: #### C MP, TSH, HSTROPN #### [facility] [address] [place] [address] Dr. Christos Fallon ALT [Catalytic activity/Vol] 34 U/L Normal 14-59 [facility] Comment on above: Performed By: #### C MP, TSH, HSTROPN #### [facility] [address] [address] [address] Christos Fallon Anion gap [Moles/Vol] 11.5 mmol/L Normal Th [facility] Comment on above: Performed By: #### C MP, TSH, HSTROPN #### [facility] [address] [address] [address] Christos Fallon AST [Catalytic activity/Vol] 21 U/L Normal 15-37 [facility] Comment on above: Performed By: #### C MP, TSH, HSTROPN #### [facility] [address] [address] [address] Christos Fallon Bilirubin [Mass/Vol] 0.7 mg/dL Normal 0.2-1.3 [facility] Comment on above: Performed By: #### C MP, TSH, HSTROPN #### [facility] [address] [address] [address] Christos Fallon Calcium [Mass/Vol] 8.8 mg/dL Normal 8.5-10.1 [facility] Comment on above: Performed By: #### C MP, TSH, HSTROPN #### [facility] [address] [address] [address] Christos Fallon Chloride [Moles/Vol] 104 mmol/L Normal 98-107 [facility] Comment on above: Performed By: #### C MP, TSH, HSTROPN #### [facility] [address] [address] [address] Christos Fallon CO2 [Moles/Vol] 28.6 mmol/L Normal 22.0-30.0 [facility] Comment on above: Performed By: #### C MP, TSH, HSTROPN #### [facility] [address] [address] [address] Christos Fallon Creatinine [Mass/Vol] 0.88 mg/dL Normal 0.52-1.04 [facility] Comment on above: Performed By: #### C MP, TSH, HSTROPN #### [facility] [address] [place] [address] Dr. Christos Fallon EGFR-AF CHINESE >60 Normal >=60 [facility] Comment on above: Performed By: #### C MP, TSH, HSTROPN #### [facility] [address] [place] [address] Dr. Christos Fallon EGFR-NON AF CHINESE >60 Normal >=60 [facility] Comment on above: Performed By: #### C MP, TSH, HSTROPN #### [facility] [address] [place] [address] Dr. Christos Fallon Globulin (S) [Mass/Vol] 3.5 g/dL Normal [facility] Comment on above: Performed By: #### C MP, TSH, HSTROPN #### [facility] [address] [place] [address] Dr. Christos Fallon Glucose [Mass/Vol] 101 mg/dL Normal 74-106 [facility] Comment on above: Performed By: #### C MP, TSH, HSTROPN #### [facility] [address] [place] [address] Dr. Christos Fallon Potassium [Moles/Vol] 4.1 mmol/L Normal 3.4-5.0 [facility] Comment on above: Performed By: #### C MP, TSH, HSTROPN #### [facility] [address] [place] [address] Dr. Christos Fallon Protein [Mass/Vol] 7.3 g/dL Normal 6.1-8.2 [facility] Comment on above: Performed By: #### C MP, TSH, HSTROPN #### [facility] [address] [place] [address] Dr. Christos Fallon Sodium [Moles/Vol] 140 mmol/L Normal 137-145 [facility] Comment on above: Performed By: #### C MP, TSH, HSTROPN #### [facility] [address] [address] [address] Christos Fallon Urea nitrogen [Mass/Vol] 11.0 mg/dL Normal 7.0-18.0 [facility] Comment on above: Performed By: #### C MP, TSH, HSTROPN #### [facility] [address] [address] [address] Christos Fallon Urea nitrogen/Creatinine [Mass ratio] 12.5 mg/mg Normal [facility] Comment on above: Performed By: #### C MP, TSH, HSTROPN #### [facility] [address] [address] [address] Christos Fallon TSHon 11-19-2021 TSH 0.774 uIU/mL Normal 0.470-4.680 [facility] Comment on above: Performed By: #### C MP, TSH, HSTROPN #### [facility] [address] [place] [address] Dr. Christos Fallon TSH RANGE SEE BELOW Normal [facility] Comment on above: Result Comment: <0.3 4 UIU/ml HYPERTHYROID 0.34-5.60 UIU/ml EUTHYROID >5.60 UIU/ml HYPOTHYROID Performed By: #### C MP, TSH, HSTROPN #### [facility] [address] [place] [address] Dr. Christos Fallon XR TSPINE 2 VIEWSon [...] TAMIE GUILLERMO Date: 2021-11-19 12:49 Normal [facility] Cardiovascular Lab Reporton 11-17-2021 Cardiovascular Lab Report [facility] Patient Name: Kaila Vasquez [facility] MR #: [id number] Physician: Jonny Fowler M.D. Department of Service Date: 11/17/2021 Medicine Birthdate: 1980 Division of Room #: CC Cardiology Adult Cardiovascular Services [facility] [address] [facility] [place] [address] Cardiovascular Laboratory Report PROCEDURE: Implantable loop recorder [...] subcutaneous pocket, into which was deployed a [employer] BioMonitor 3 implantable loop recorder. Via off [...] Fowler M.D. Date Trans: 11/17/2021 12:41 P/mmo [id number] cc: Mert Lama M.D. [address] [place] [phone] Normal [facility] Covid-19 PCR (CVDTBH)on SARS-CoV-2 (COVID-19) RNA LEROY+probe Ql (Unsp spec) Not detected Normal NOT DETECTED [facility] Comment on above: Result Comment: This test is not yet approved or cleared by the [place] FDA. When there are no FDA-approved or cleared tests available, and other criteria are met, FDA can make tests available under an emergency access mechanism called an Emergency Use Authorization (EUA). The EUA for this test is supported by the [place] of Health and Human Service's (HHS's) declaration [...] By: #### C MP, TSH, HSTROPN #### [facility] [address] [place] [address] Dr. Christos Fallon Covid-19 PCR (CVDTBH)on SARS-CoV-2 (COVID-19) RNA LEROY+probe Ql (Unsp spec) Not detected Normal NOT DETECTED [facility] Comment on above: Result Comment: When [...] for this test is supported by the [place] of Health and Human Service's declaration that [...] longer be used). Performed By: #### C [facility] #### [facility] [address] [place], [place] [address] Dr. Christos Fallon Cardiovascular Lab Reporton 06-17-2021 Cardiovascular Lab Report [facility] Patient Name: Christina [facility] MR #: [id number] Physician: Vishal Rogers MD Department of Service Date: 06/17/2021 Medicine Birthdate: 1980 Division of Room #: CC Cardiology Adult Cardiovascular Services [place] [address] Cardiovascular Laboratory Report COMPREHENSIVE EP STUDY AND [...] same (more content not included)... Normal [facility] FEMUR LEFT 2 [facility] 1 FEMUR LEFT 2 [facility] Department of Radiology [address] [place] [phone] ======== Patient Name: KAILA VASQUEZ : 1980 Sex: F Age: Race: White Pt. 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 Electronically signed: Gelacio Pfeiffer. Transcribed by: [email or web address], User Resident: TAVON BELCHER Electronically Signed by: GELACIO PFEIFFER @ 01/15/2021 12:03 PM I personally read this/these film(s) with this resident Normal [facility] Comment on above: Order Comment: evalu ate Operative Reporton Operative Report MR#: [id number] S [facility] Pt. Name: Kaila Vasquez Room #: 0C Discharge 12/05/2020 Date: Birthdate: 1980 OPERATIVE REPORT DATE OF SURGERY: 12/05/2020 SURGEON: Pamella Brennan M.D. PREOPERATIVE DIAGNOSIS: Left distal femur osteochondroma. POSTOPERATIVE DIAGNOSIS: Left distal femur osteochondroma. PROCEDURE PERFORMED: Left distal femur osteochondroma excision. REGIONAL SALES ENGINEER: Alaina Edouard M.D. ANESTHESIA: General endotracheal. SPECIMENS: [...] i (more content not included)... Normal [facility] FEMUR LEFT 2 [facility] 1 FEMUR LEFT 2 [facility] Department of Radiology [address] [place] [phone] ======== Patient Name: KAILA VASQUEZ : 1980 Sex: F Age: Race: White Pt. Location: OUTP Patient Status: O Ordered Date: 12/05/2020 7:30:00 AM Completed Date: 12/05/2020 10:05 AM Requesting Provider: PAMELLA BRENNAN Attending Provider: PAMELLA BRENNAN Report Copy To: Signs & Symptoms: LEFT DISTAL FEMUR OSTEOCHONDROMA EXCISION History: Comments: LEFT DISTAL FEMUR OSTEOCHONDROMA EXCISION Exam: FEMUR LEFT 2 [facility] ======== FEMUR LEFT 2 VWS 12/05/2020 [...] purposes. Electronically signed: Ching Garcia. Transcribed by: [email or web address], User Resident: Electronically Signed by: CHING GARCIA @ 12/05/2020 11:54 AM Normal [facility] Comment on above: Order Comment: LEFT DISTAL FEMUR OSTEOCHONDROMA EXCISION POC GLUCOSE LABon 12-05-2020 Glucose [Mass/Vol] 108 mg/dL High 70-100 [facility] Comment on above: Performed By: #### 8 [id number] ####[facility] *MRSA/MSSA DNA NASALon 11-28 *MRSA/MSSA DNA NASAL Clinical Report: (D ) Specimen: NASAL SWAB Collected: 11/28/2020 13:22 Status: Final Last Updated: 2020 13:05 MSSA DNA (Final) Negative MRSA DNA (Final) Negative Normal [facility] Comment on above: Performed By: #### 3 1595 ####[facility] [place] [address], [facility] APTTon 11-28-2020 aPTT Coag (Bld) [Time] 29.1 s Normal 25.0-35.0 [facility] Comment on above: Result Comment: ALL RESULTS [...] THIS PURPOSE. Performed By: #### 5 7307, [address] #### [facility] [address] [place] [address], [facility] BASIC METABOLIC PANELon - Calcium [Mass/Vol] 9.5 mg/dL Normal 8.6-10.3 [facility] Comment on above: Performed By: #### 0 0071 #### [facility] [address] [place] [address], [facility] Chloride [Moles/Vol] 104 mmol/L Normal 98-107 [facility] Comment on above: Performed By: #### 0 0071 #### [facility] [address] [place] [address], [place] CO2 [Moles/Vol] 28 mmol/L Normal 21-31 [facility] Comment on above: Performed By: #### 0 0071 #### [facility] [address] [place] [address], [place] Creatinine [Mass/Vol] 0.90 mg/dL Normal 0.60-1.20 [facility] Comment on above: Performed By: #### 0 0071 #### [facility] [address] [place] [address], [place] GFR/1.73 sq M.predicted among blacks MDRD (S/P/Bld) [Vol rate/Area] mL/min/{1.73_m2} Normal >60 [facility] Comment on above: Performed By: #### 0 0071 #### [facility] [address] [place] [address], [place] GFR/1.73 sq M.predicted among non-blacks MDRD (S/P/Bld) [Vol rate/Area] mL/min/{1.73_m2} Normal >60 [facility] Comment on above: Performed By: #### 0 0071 #### [facility] [address] [place] [address], [facility] Glucose [Mass/Vol] 132 mg/dL High 70-100 [facility] Comment on above: Performed By: #### 0 0071 #### [facility] [address] [place] [address], [facility] Potassium [Moles/Vol] 3.8 mmol/L Normal 3.5-5.1 [facility] Comment on above: Performed By: #### 0 0071 #### [facility] [address] [place] [address], [facility] Sodium [Moles/Vol] 138 mmol/L Normal 136-145 [facility] Comment on above: Performed By: #### 0 0071 #### [facility] [address] [place] [address], [facility] Urea nitrogen [Mass/Vol] 9 mg/dL Normal 7-25 [facility] Comment on above: Performed By: #### 0 0071 #### [facility] [address] [place] [address], [facility] CBC W/DIFFon 11-28-2020 ABS IMM GRANS 0.0 10*3/uL Normal 0.0-0.2 [facility] Comment on above: Performed By: #### 5 0103 ####[facility] [facility] [place] [address], [facility] ABS NEUTROPHILS 7.2 10*3/uL Normal 1.6-7.6 [facility] [place] Comment on above: Performed By: #### 5 102 ####[facility] [facility] [place] [address], [facility] Basophils (Bld) [#/Vol] 0.1 10*3/uL Normal 0.0-0.2 [facility] [place] Comment on above: Performed By: #### 5 0103 ####[facility] [facility].[address] Basophils/100 WBC (Bld) 0.6 % Normal 0.0-1.0 [facility] [place] Comment on above: Performed By: #### 5 0103 ####[facility] Eosinophils (Bld) [#/Vol] 0.3 10*3/uL Normal 0.0-0.5 [facility] [place] Comment on above: Performed By: #### 5 3 ####[place] [id number] [address] Eosinophils/100 WBC (Bld) 2.6 % Normal 0.0-6.0 [facility] [place] Comment on above: Performed By: #### 5 3 ####[facility] Erythrocyte distribution width (RBC) [Ratio] 12.6 % Normal 11.5-15.0 [facility] [place] Comment on above: Performed By: #### 3 ####[facility] [facility].[address] Hematocrit (Bld) [Volume fraction] 42.6 % Normal 36.0-45.0 [facility] [place] Comment on above: Performed By: #### 3 ####[facility] Hemoglobin (Bld) [Mass/Vol] 14.4 g/dL Normal 12.0-15.0 [facility] [place] Comment on above: Performed By: #### 3 ####[facility] IMMATURE GRANS 0.3 % Normal 0.0-1.0 [facility] [place] Comment on above: Performed By: #### 5 0103 ####[facility] [place] [address] Lymphocytes (Bld) [#/Vol] 2.1 10*3/uL Normal 1.2-4.0 [facility] [place] Comment on above: Performed By: #### 5 0103 ####[facility] [place] [address] Lymphocytes/100 WBC (Bld) 20.2 % Normal 20.0-45.0 [facility] [place] Comment on above: Performed By: #### 5 3 ####[address] MCH (RBC) [Entitic mass] 33.6 pg High 27.0-33.0 [facility] [place] Comment on above: Performed By: #### 5 3 ####[address] MCHC (RBC) [Mass/Vol] 33.8 g/dL Normal 32.0-35.0 [facility] [place] Comment on above: Performed By: #### 3 ####[address] MCV (RBC) [Entitic vol] 99.5 fL High 82.0-98.0 [facility] [place] Comment on above: Performed By: #### 5 3 ####[address] Monocytes (Bld) [#/Vol] 0.7 10*3/uL Normal 0.1-1.0 [facility] [place] Comment on above: Performed By: #### 5 3 ####[place] [address], [place] MONOS 6.4 % Normal 5.0-12.0 [facility] [place] Comment on above: Performed By: #### 5 0103 ####[facility] [place] [address], [facility] Neutrophils/100 WBC (Bld) 69.9 % Normal 40.0-72.0 [facility] [place] Comment on above: Performed By: #### 5 0103 ####[facility] Nucleated RBC/100 WBC (Bld) [Ratio] 0 % Normal 0-0 [facility] [place] Comment on above: Performed By: #### 5 0103 ####[facility] PLAT CNT 346 10*3/uL Normal 150-400 [facility] [place] Comment on above: Performed By: #### 5 0103 ####[facility] [place] [address], [facility] RBC (Bld) [#/Vol] 4.28 10*6/uL Normal 3.80-5.00 [facility] [place] Comment on above: Performed By: #### 5 0103 ####[facility] [place] [address], [facility] WBC (Bld) [#/Vol] 10.24 10*3/uL Normal 4.00-10.60 [facility] [place] Comment on above: Performed By: #### 5 0103 ####[facility] PROTHROMBIN TIMEon 1 INR Coag (PPP) [Relative time] 0.99 {INR} Normal 0.91-1.16 [facility] [place] Comment on above: Result Comment: ACCC P [...] CHEST 1995;[id number]. Performed By: #### 5 7307, [id number] #### [facility] [address] [place] [address], [facility] PT Coag (PPP) [Time] 13.1 s Normal 12.3-14.8 [facility] [place] Comment on above: Result Comment: ALL RESULTS MUST BE INTERPRETED WITH RESPECT TO BLOOD DRAWING ARTIFACT OR DILUTION ERROR OF ANTICOAGULANT AT THE TIME OF SAMPLING. Performed By: #### 5 7307, [id number] #### [facility] [address] [place] [address], [facility] TYPE AND CROSSMATCHon 2020 ABO INTERPRETATION O Normal [facility] [place] Comment on above: Performed By: #### 6 2594 #### [facility] [address] [place] [id number], [facility] RH INTERPRETATION Positive Normal [facility] [place] Comment on above: Performed By: #### 6 2594 #### [facility] [address] [place] [address], [facility] URINALYSISon 11-28-2020 Appearance (U) CLEAR Normal CLEAR [facility] [place] Comment on above: Performed By: #### 1 0008 #### [facility] [address] [place] [address], [facility] Bilirubin Ql (U) Negative Normal NEGATIVE [facility] [place] Comment on above: Performed By: #### 1 0008 #### [facility] [address] [place] [address], [place] Color (U) YELLOW Normal YELLOW [facility] [place] Comment on above: Performed By: #### 1 0008 #### [facility] [address] [place] [address], [facility] Glucose Ql (U) Negative Normal NEGATIVE [facility] [place] Comment on above: Performed By: #### 1 0008 #### [facility] [address] [facility] [place] [address], [facility] Hemoglobin Ql (U) Negative Normal NEGATIVE [facility] [place] Comment on above: Performed By: #### 1 0008 #### [facility] [address] [place] [address], [facility] KETONE Negative Normal NEGATIVE [facility] [place] Comment on above: Performed By: #### 1 0008 #### [facility] [address] [facility] [place] [address], [facility] LEUK JORDAN Negative Normal NEGATIVE [facility] [place] Comment on above: Performed By: #### 1 0008 #### [facility] [address] [place] [address], [facility] MICRO NOT DONE Normal [facility] [place] Comment on above: Result Comment: Micr oscopics not performed on urines with negative chemical reactions unless requested in original order Performed By: #### 1 0008 #### [facility] [address] [facility] [place] [address], [place] Nitrite Ql (U) Negative Normal NEGATIVE [facility] [place] Comment on above: Performed By: #### 1 0008 #### [facility] [address] [place] [address], [facility] pH (U) 6.0 [pH] Normal 5.0-8.0 [facility] [place] Comment on above: Performed By: #### 1 0008 #### [facility] [address] [place] [address], [facility] Protein Ql (U) Negative Normal NEGATIVE [facility] [place] Comment on above: Performed By: #### 1 0008 #### [facility] [address] [place] [address], [facility] SPEC GRAV 1.018 Normal 1.015-1.020 [facility] [place] Comment on above: Performed By: #### 1 0008 #### [facility] [address] [place], [place] [id number] [place] [address] Vital Signs Date Time Vital Sign Value Performing Clinician Gabinoi karine 08-24-2022 13:44-0500 Body height 162.6 cm Janell Sy MD Work Phone: [facility] 08-24-2022 13:44-0500 Body weight 112.95 kg Janell Sy MD Work Phone: [facility] 08-24-2022 13:44-0500 Diastolic blood pressure 73 mm[Hg] Janell Sy MD Work Phone: [facility] 08-24-2022 13:44-0500 Heart rate 88 /min Janell Sy MD Work Phone: [facility] 08-24-2022 13:44-0500 SaO2% (BldA) [Mass fraction] 98 % Janell Sy MD Work Phone: [facility] 08-24-2022 13:44-0500 Systolic blood pressure 112 mm[Hg] Janell Sy MD Work Phone: [facility] 08-05-2022 10:00-0500 Diastolic blood pressure 88 mm[Hg] Carmen Johnson PT Work Phone: [facility] 08-05-2022 10:00-0500 Heart rate 78 /min Carmen Johnson PT Work Phone: [facility] 08-05-2022 10:00-0500 Systolic blood pressure 134 mm[Hg] Carmen Johnson PT Work Phone: [facility] 07-07-2022 08:12-0500 Body height 162.6 cm Glenroy Syed HIGHWALL DRILL OPERATOR.CHANNEL PROCESS PLANT OPERATOR Work Phone: [facility] 07-07-2022 08:12-0500 Body weight 112.04 kg Glernoytoan Syed HIGHWALL DRILL OPERATOR.CHANNEL PROCESS PLANT OPERATOR Work Phone: [facility] 07-07-2022 08:12-0500 Diastolic blood pressure 88 mm[Hg] Glenroy Poulhal HIGHWALL DRILL OPERATOR.CHANNEL PROCESS PLANT OPERATOR Work Phone: [facility] 07-07-2022 08:12-0500 Heart rate 82 /min Glenroy Syed HIGHWALL DRILL OPERATOR.CHANNEL PROCESS PLANT OPERATOR Work Phone: [facility] 07-07-2022 08:12-0500 SaO2% (BldA) [Mass fraction] 98 % Glenroy Syed HIGHWALL DRILL OPERATOR.CHANNEL PROCESS PLANT OPERATOR Work Phone: [facility] 07-07-2022 08:12-0500 Systolic blood pressure 134 mm[Hg] Glenroy Syed HIGHWALL DRILL OPERATOR.CHANNEL PROCESS PLANT OPERATOR Work Phone: [facility] 12-09-2021 13:59-0400 Blood Pressure Location Pamella SANABRIA [facility] 12-09-2021 13:59-0400 Diastolic blood pressure 78 mm[Hg] Pamella SANABRAI [facility] 12-09-2021 13:59-0400 Heart rate 68 /min Pamella ZIMMERMANL [facility] 12-09-2021 13:59-0400 Respiratory rate 16 /min Pamella ZIMMERMANL [facility] 12-09-2021 13:59-0400 Systolic blood pressure 118 mm[Hg] Pamella NILL [facility] Encounters Encounter Date Encounter Type Care Provider Facility Start: 01-31-2024 ambulatory [place] Start: 01-24-2024 ambulatory JONNY MUNGUIAUBB [facility] [place] Start: 12-19-2023 End: 12-20-2023 ambulatory Cristiane Gutiérrez Facility:[facility] Start: 12-02-2023 ambulatory [place] Start: 10-25-2023 End: 10-25-2023 ambulatory IRMA CHUNGO Not Available Start: 08-25-2023 End: 08-25-2023 ambulatory IRMA SUDHA Not Available Start: 10-15-2022 Orders Only Glenroy Syed HIGHWALL DRILL OPERATOR.CHANNEL PROCESS PLANT OPERATOR Work Phone: Neurology Comment on above: 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 (Primary Dx) Start: 10-14-2022 End: 10-14-2022 ambulatory GLENROY SYED Facility:[facility] Start: 09-09-2022 ambulatory Mauri Ross RT(R) Ra soto Comment on above: Radiology MRI Start: 09-09-2022 Patient encounter procedure Mauri Ross RT(R) RONALDO EASON Start: 09-02-2022 End: 09-02-2022 ambulatory ELENA UGAN Facility: Start: 08-24-2022 End: 08-24-2022 ambulatory GLENROY SYED Facility:[facility] Start: 08-24-2022 End: 08-24-2022 Patient encounter procedure Janell Sy MD Work Phone: Cardiology Comment on above: KANG (obstructive sle ep apnea) (Primary Dx); Dizziness; Palpitations; Obesity, morbid, BMI 40.0-49.9 (HCC); SVT (supraventricular tachycardia) (HCC); Chronic fatigue; Vitamin D deficiency Start: 08-20-2022 Orders Only Len Shea HIGHWALL DRILL OPERATOR.CHANNEL PROCESS PLANT OPERATOR Work Phone: Neurology Comment on above: Ocular migraine (Dinora andres Dx) Start: 08-19-2022 End: 08-19-2022 ambulatory [facility] Neurology Comment on above: Neuro Ophthalmologis t Start: 08-16-2022 ambulatory [facility] Neurology Comment on above: MRI Start: 08-12-2022 End: 08-12-2022 ambulatory GLENROY SYED Facility:[facility] Start: 08-12-2022 End: 08-12-2022 ambulatory Carmen Seese PT Work Phone: Physical Therapy Comment on above: Dizziness (Primary D x); Cervicalgia; Headaches Start: 08-05-2022 End: 08-05-2022 ambulatory GLENROY SYED Facility:[facility] Start: 08-05-2022 End: 08-05-2022 ambulatory Carmen Seese PT Work Phone: Physical Therapy Comment on above: Dizziness (Primary D x); Cervicalgia; Headaches Start: 07-29-2022 End: 07-29-2022 ambulatory WM RODRIGUEZ Facility:[facility] Start: 07-21-[address] MERT LAMA Facilit y:[facility] Start: 07-07-2022 Telephone encounter Glenroy rodriguez HIGHWALL DRILL OPERATOR.CHANNEL PROCESS PLANT OPERATOR Work Phone: Neurology Comment on above: Received Outside Med ical Records Start: 07-07-2022 End: 07-07-2022 ambulatory GLENROY SYED Facility:[facility] Start: 07-07-2022 End: 07-07-2022 Patient encounter procedure Glenroy Yvonnehal HIGHWALL DRILL OPERATOR.CHANNEL PROCESS PLANT OPERATOR Work Phone: Neurology Comment on above: Dizziness [...] Patient encounter procedure Pamella SANABRIA General Surgery [facility] Start: 11-25-2021 End: 11-26-[address] MERT LAMA Facility:[facility] Start: 11-23-2021 Encounter for genera l adult medical examination without abnormal findings DR MERT LAMA [facility] Start: 11-19-2021 End: 11-20-[address] MERT LAMA Facility:[facility] Start: 11-19-2021 End: 11-20-2021 Encounter for general adult medical examination without abnormal findings DR MERT LAMA Facility:[facility] Start: 11-17-2021 End: 11-18-2021 ambulatory MERT LAMA Facility:[facility] Start: 11-14-2021 End: 11-15-2021 ambulatory ANU CABAN Facility:[facility] Start: 10-08-2021 End: 10-08-2021 ambulatory WM RODRIGUEZ Facility:[facility] Start: 06-17-2021 End: 06-18-2021 ambulatory MERT LAMA Facility:[facility] Start: 04-16-2021 End: 05-23-2021 ambulatory MERT LAMA Facility:[facility] Start: 12-05-2020 End: 12-06-2020 ambulatory MERT LAMA Facility:[facility] Procedures Date Procedure Procedure Detail Performing Clinician Start: 08-24-2022 Ecg routine ecg w/le ast 12 lds i&r only [facility] Provider Start: 12-05-2020 ANESTH KNEE AREA SURGERY MERT LAMA Start: 12-05-2020 REMOVE FEMUR LESION CARLOS HAEL P MIKA Start: 11-28-2020 Antibody screen MERT ORTIZ Comment on above: Performed By: #### 6 2594 #### [address] Start: 11-04-2020 Cystourethroscopy wi th dilation of urethral stricture Pamella SANABRIA Abdominal hysterectomy Wale SANABRIA Bilateral complete salpingectomy Pamella SANABRIA Cardiac radiofrequen cy ablation using ultrasound guidance Pamella SANABRIA Cholecystectomy Pamella SANABRIA Excision of osteochondroma Nestor SANABRIA History of ankle surgery Carlos SANABRIA Plan of Treatment Date Care Activity Detail Author Start: 08-08-2022 DEPRESSION ASSESSMENT DEPRESSION ASS [facility] Start: 07-07-2022 End: 09-06-2022 25-hydroxyvitamin D3 [Mass/volume] in Serum or Plasma [facility] Work Phone: Comment on above: Expected: 07/07/2022 , Expires: 09/06/2022 Start: 07-07-2022 End: 09-06-2022 ESEQUIEL BY IFA WITH REFLEX [facility] Work Phone: Comment on above: Expected: 07/07/2022 , Expires: 09/06/2022 Start: 04-08-2022 Influenza vaccination INFLUENZA (#1) [facility] Start: 08-08-2021 DEPRESSION ASSESSMENT DEPRESSION ASS [facility] Start: 11-05-2020 COVID-19 VACCINE (3 - Booster for Giancarlo series) COVID-19 VACCINE (3 - Booster for Giancarlo series) [facility] Start: 2012 HPV TESTING HPV TESTING [facility] Start: 11-30-2003 PAP TESTING PAP TESTING [facility] Start: 2001 Urine microalbumin profile DTA P,TDAP,TD (1 - Tdap) [facility] Start: 2000 HEPATITIS C SCREENING HEPATITIS C SC PARKER [facility] Start: 2000 HIV SCREENING HIV SCREENING [facility] Start: 1982 HEPATITIS B (1 of 3 - 3-dose series) HEPATITIS B (1 of 3 - 3-dose series) [facility] End: 08-24-2023 ECG COMPLETE ECG COMPLETE ECG Routine Dizziness Palpitations Obesity, morbid, BMI 40.0-49.9 ([facility]) 1 Occurrences starting 08/24/2022 until 08/24/2023 [facility] Work Phone: Comment on above: 1 Occurrences starti ng 08/24/2022 until 08/24/2023 ECG COMPLETE ECG COMPLETE ECG 08/24/2022 1:56 PM EST [facility] End: 07-07-2023 Echocardiography ECHO Cardiology Routine Palpitations 1 Occurrences starting 07/07/2022 until 07/07/2023 [facility] Work Phone: Comment on above: 1 Occurrences starti ng 07/07/2022 until 07/07/2023 End: 08-06-2023 Mri brain brain stem w/o w/contrast material MRI BRAIN WO/W IVCON Radiology Routine Dizziness Vision changes 1 Occurrences starting 07/07/2022 until 08/06/2023 [facility] Work Phone: Comment on above: 1 Occurrences starti ng 07/07/2022 until 08/06/2023 End: 09-15-2023 Mri spinal canal cervical w/o & w/contr matrl MRI CERVICAL SPINE WO/W IVCON Radiology Routine Dizziness Vision changes Cervicalgia Disturbance of skin sensation 1 Occurrences starting 08/16/2022 until 09/15/2023 [facility] Work Phone: Comment on above: 1 Occurrences starti ng 08/16/2022 until 09/15/2023 [facility] Immunizations Immunization Date Immunization Notes Care Provider Tayo cullen 09-10-2020 SARS-CoV-2 (COVID-19 ) Ad26 vaccine, recombinant Pamella NILL [facility] 08-12-2020 SARS-CoV-2 (COVID-19 ) Ad26 vaccine, recombinant Pamella NILL [facility] Payers Date Payer Category Payer Unknown [id number] 2021 Unknown [id number] 1982 Unknown [id number] 2.16.8 [id number] 1982 Unknown [id number] 2.16.8 40.1.155443.3.579.2.647 1982 Unknown [id number] 2.16.8 40.1.092054.3.579.2.647 1982 Unknown [id number] 2.16.8 40.1.294363.3.579.2.647 1982 Unknown [id number] 2.16.84 0.1.727698.3.579.2.593 1982 Unknown [id number] 2.16.84 0.1.501166.3.579.2.593 1982 Unknown [id number] 2.16.84 0.1.057252.3.579.2.593 1982 Unknown [id number] 2.16.84 0.1.320446.3.579.2.593 1982 Unknown [id number] 2.16.84 0.1.951134.3.579.2.593 1982 Unknown [id number] 2.16.84 0.1.588694.3.579.2.593 1982 Unknown [id number] 2.16.84 0.1.293416.3.579.2.593 1982 Unknown [id number] 2.16.84 0.1.287797.3.579.2.593 1982 Unknown [id number] 2.16.84 0.1.938406.3.579.2.593 1982 Unknown [id number] 2.16.84 0.1.032507.3.579.2.593 1982 Unknown [id number] 2.16.84 0.1.049360.3.579.2.593 1982 Unknown [id number] 2.16.84 0.1.542580.3.579.2.593 1982 Unknown [id number] 2.16.84 0.1.701221.3.579.2.593 1982 Unknown [id number] 2.16.84 0.1.815904.3.579.2.593 1982 Unknown [id number] 2.16.84 0.1.488992.3.579.2.593 1982 Unknown [id number] 2.16.84 0.1.955353.3.579.2.1259 1982 Unknown [id number] 2.16.84 0.1.763958.3.579.2.1259 1982 Unknown [id number] 2.16.8 40.1.885166.3.579.2.727 1959 Unknown [id number] Social History Date Type Detail Facility Start: 12-09-2021 End: 07-07-2022 Tobacco smoking status Never smoked tobacco (finding) [facility] Tobacco smoking status Never [facility] Sex Assigned At Female [facility] Start: 07-07-2022 Tobacco use and exposure Smokeless tobacco non-user [facility] Start: 1980 Sex Assigned At Not on file [facility] Start: 06-27-2022 End: 07-07-2022 Exposure to SARS-CoV-2 (event) Not sure [facility] Start: 08-24-2022 Alcohol intake Current drinke r of alcohol (finding) [facility] Start: 08-24-2022 Alcohol Comment occasionally 1 -2 times a months 2-3 drinks [facility] Clinical Notes 12-30-2021 to 10-14-2022 RT [place](R) - 09/09/2022 2:11 PM Marilyn Sy MD - 08/24/2022 1:45 PM ESTTelephone Encounter - Glenroy Syed, HIGHWALL DRILL OPERATOR.CHANNEL PROCESS PLANT OPERATOR - 08/16/2022 8:28 AM Elio Johnson PT - 08/12/2022 2:51 PM EST Note Date & Type Note Facility 10-14-2022 Note HNO ID: [id number] Author: RT Mary(R) Service: ? Author Type: [...] RT Mary(R) October 14, 2022 4:55 PM [facility] 10-14-2022 Note HNO ID: [id number] Author: Papa Rea RN Service: Radiology Author [...] DATE: October 14, 2022 TIME: 3:20 PM [facility] 09-09-2022 Note HNO ID: [id number] Author: RT [place](R) Service: ? Author Type: [...] 09, 2022 TIME: 2:11 PM PAGER/CONTACT #: [facility] 09-09-2022 History of Present illness Narrative RADIOLOGY [...] PM PAGER/CONTACT #: documented in this encounter [facility] 08-24-2022 Note HNO ID: [id number] Author: Janell Sy MD Service: ? Author Type: Physician Type: Progress Notes Filed: 08/24/2022 2:17 PM Note Text: [facility] [place] SECTION OF REGIONAL CARDIOLOGY OUTPATIENT VISIT DATE [...] Cardiac work-up includes: Echocardiogram on 05/19/2020 at [facility] showed normal ejection fraction. No valvular [...] ECG COMPLETE 4. Obesity, morbid, BMI 40.0-49.9 ([facility]) E66.01 ECG COMPLETE 5. SVT (supraventricular tachycardia) ([facility]) I47.1 6. Chronic fatigue R53.82 7. [...] Never Vaping U (more content not included)... [facility] 08-24-2022 History of Present illness Narrative Images from the original note were not included. [facility] [place] SECTION OF REGIONAL CARDIOLOGY OUTPATIENT VISIT DATE [...] Cardiac work-up includes: Echocardiogram on 05/19/2020 at [facility] showed normal ejection fraction. No valvular [...] ECG COMPLETE 4. Obesity, morbid, BMI 40.0-49.9 ([facility]) E66.01 ECG COMPLETE 5. SVT (supraventricular tachycardia) ([facility]) I47.1 6. Chronic fatigue R53.82 7. [...] PVC (premature ventricular contraction) SVT (supraventricular tachycardia) ([facility]) Vitamin D deficiency No past surgical [...] twice daily.^Disp: ^Rfl: documented in this encounter [facility] 08-19-2022 Note HNO ID: [id number] Author: Mauri Chun OD Service: ? Author Type: PILLOWCASE TURNER Type: Progress Notes Filed: 08/19/2022 10:22 AM Note Text: Ocular health is unremarkable with no abnormalities. Normal ON appearance Ophthalmic migraines Glasses Rx given with slight prism [facility] 08-16-2022 Miscellaneous Notes signed We can add it to fully evaluate her symptoms. -LP documented in this encounter [facility] 08-12-2022 Note HNO ID: [id number] Author: Carmen Johnson, PT Service: ? Author [...] Time Minutes (timed/untimed): 60 Carmen Johnson, PT [facility] 08-12-2022 History of Present illness Narrative Episode [...] Carmen Johnson PT documented in this encounter [facility] 08-05-2022 Note HNO ID: [id number] Author: Carmen Johnson PT Service: ? Author [...] Planned: 8 Planned Treatment Interventions: Therapeutic exercise (48976);Neuromuscular re-education (46815);Manual therapy (92887);Therapeutic activities (92531);Self-prison management (63717);Patient/Family/Caregiver Education;Gait Training (17079);Canalith Repositioning Maneuvers (50058) PLAN FOR NEXT VISIT: Detailed neck exam [...] Premature atrial contra (more content not included)... [facility] 08-05-2022 History of Present illness Narrative Episode [...] Planned: 8 Planned Treatment Interventions: Therapeutic exercise (13972);Neuromuscular re-education (45499);Manual therapy (02070);Therapeutic activities (28559);Self-prison management (46226);Patient/Family/Caregiver Education;Gait Training (69686);Canalith Repositioning Maneuvers (44005) PLAN FOR NEXT VISIT: Detailed neck exam [...] present Head Shake: Negative Positional Testing Right Princeton-Hallpike: No nystagmus;Asymptomatic Left Juan-Hallpike: No nystagmus;Asymptomatic Right [...] Demonstration;Requires Review/Additional Education TREATMENT: PT Treatment Interventions: Self-Assisted Management;Therapeutic Exercise Evaluation Therapeutic Exercise: 1: c/s retractions x 10, cues for technique Skilled Intervention: Patient was educated in proper exercise technique and purpose for exercises. Patient education as noted. Self-Assisted Management: 1: Educated regarding potential multifactorial cause [...] Carmen Johnson PT documented in this encounter [facility] 07-07-2022 Note HNO ID: [id number] Author: Glenroy Syed APRN.CHANNEL PROCESS PLANT OPERATOR Service: ? Author Type: Nurse Practitioner Type: Progress Notes Filed: 07/07/2022 12:28 PM Note Text: [facility] General Neurology New Patient Evaluation [...] over a month. She has seen an photographic supervisor and was told she was having occular migraine by her clinical data associate. A couple times a month she gets [...] for 1 dose.N (more content not included)... [facility] 07-07-2022 Miscellaneous Notes Noted. Provider notified. Received medical records from [facility]. Uploaded to chart and forwarded for review. documented in this encounter [facility] 07-07-2022 Instructions Glenroy Syed APRN.SARIKA - 07/07/2022 9:06 AM EST Plan: Baseline labs MRI Brain for multiple symptoms ECHO for palpitations and arrhythmias Aspirin 81mg daily in the setting of known arrhythmias Consult to [place] for dizziness Consult to Cardiology for second opinion Consult to ophthalmology Follow up after testing documented in this encounter [facility] 07-07-2022 History of Present illness Narrative Images from the original note were not included. [facility] General Neurology New Patient Evaluation [...] over a month. She has seen an photographic supervisor and was told she was having occular migraine by her clinical data associate. A couple times a month she gets [...] Finger Abduction (U) 5 Finger Abduction 5 Coater Smoking Pipe 5 Coater Smoking Pipe 5 Right Lower Extremity: (of 5) Left [...] over a month. She has seen an photographic supervisor and was told she was having occular migraine by her clinical data associate. A couple times a month she gets [...] VT reccommended. Patient wanting second opinion from clinical data associate within the [facility], referral placed. Unlikely autonomic dysfunction with unremarkable tilt and orthostatic vitals in office unconvincing (did not take BB today). Additionally, with visual changes, recommended seeing neuro donation specialist. Will obtain additional labs as well. Follow [...] which included preparing to see the patient, [id number] patient care, completing clinical documentation, obtaining and/or reviewing separately obtained history, performing a medically appropriate examination, counseling and educating the patient/family/caregiver, ordering medications, tests, or procedures, and care coordination (not separately reported). 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 01/06/2022 08:31:00 [facility] Evaluation + Plan note No data available for this section [facility] [place] Evaluation note Diagnosis Dizziness- Primary Dizziness and giddiness Migraine aura without headache Migraine with aura, without mention of intractable migraine without mention of status migrainosus Palpitations Chronic fatigue Other malaise and fatigue Vision changes Unspecified visual disturbance Disturbance of skin sensation [facility] Diagnosis Dizziness- Primary Dizziness and giddiness Cervicalgia Headaches [facility]* Diagnosis Dizziness- Primary Dizziness and giddiness Cervicalgia Headaches documented [facility]* Diagnosis Cervicalgia- Primary Dizziness Dizziness and giddiness Vision changes Unspecified visual disturbance Disturbance of skin sensation documented [facility]* Diagnosis Ocular migraine- Primary Other forms of migraine, without mention of intractable migraine without mention of status migrainosus documented [facility]* Diagnosis KANG (obstructive sleep apnea)- Primary Obstructive sleep apnea (adult) (pediatric) Dizziness Dizziness and giddiness Palpitations Obesity, morbid, BMI 40.0-49.9 (HCC) Morbid obesity SVT (supraventricular tachycardia) ([facility]) Other specified cardiac dysrhythmias Chronic fatigue Other malaise and fatigue Vitamin D deficiency Unspecified vitamin D deficiency [facility] Diagnosis Degeneration of intervertebral disc of cervical region with osteophyte of cervical vertebra- Primary documented in this encounter [facility] Discharge instructions No data available for this section [facility] [place] Reason for referral (narrative)* Outpatient Procedure (Routine) - Authorized Specialty Diagnoses / Procedures Referred By Contac t Referred To [facility] Diagnoses Dizziness Palpitations Obesity, morbid, BMI 40.0-49.9 ([facility]) Procedures ECG COMPLETE ECG ROUTINE ECG W/LEAST 12 LDS W/I&R Janell Sy MD [address] [place] [address] [facility] [address] [place] [address] Referral ID Status Reason Start Date Expiration Date Visits Requested Visits Authorized [id number] Authorized Auto-Generat ed Referral 08/24/2022 08/24/2023 1 1 [facility] Summary Purpose Family History No Family [...] By Contac t Referred To Contact [facility] Diagnoses Degeneration of intervertebral disc of cervical region with osteophyte of cervical vertebra Procedures CONSULT TO [facility] OFFICE/OUTPATIENT [facility] 60-74 MINUTES Glenroy Syed, HIGHWALL DRILL OPERATOR.CHANNEL PROCESS PLANT OPERATOR [address] [place] [address] Referral ID Status Reason Start Date Expiration Date Visits Requested Visits Authorized [id number] Authorized PCP Requested Referral 10/15/2022 10/15/2023 1 1 Specialty Diagnoses / Procedures Referred By Contac t Referred To Contact Ophthalmology Diagnoses Ocular migraine Procedures CONSULT TO OPHTHALMOLOGY OFFICE/OUTPATIENT [facility] 60-74 MINUTES Len Shea, HIGHWALL DRILL OPERATOR.CHANNEL PROCESS PLANT OPERATOR [address] [facility] [id number] [place] [address] Josefina Grimes MD [address] [place] [address] Referral ID Status Reason Start Date Expiration Date Visits Requested Visits Authorized [id number] Authorized PCP Requested Referral 08/20/2022 08/20/2023 1 1 Specialty Diagnoses / Procedures Referred By Contac t Referred To Contact Cardiology Diagnoses Dizziness Palpitations Procedures CONSULT TO CARDIOLOGY OFFICE/OUTPATIENT [facility] 60-74 MINUTES Glenroy Syed, HIGHWALL DRILL OPERATOR.CHANNEL PROCESS PLANT OPERATOR [address] [place] [id number] Referral ID Status Reason Start Date Expiration Date Visits Requested Visits Authorized [id number] Authorized PCP Requested Referral 2 07/07/2023 1 1 Specialty Diagnoses / Procedures Referred By Contac t Referred To Contact MR IMAGING Diagnoses Dizziness Vision changes Procedures MRI BRAIN WO/W IVCON MRI BRAIN BRAIN STEM W/O W/CONTRAST MATERIAL Glenroy Syed, HIGHWALL DRILL OPERATOR.CHANNEL PROCESS PLANT OPERATOR [address] [place] [id number] Mr Imaging Referral ID Status Reason Start Date Expiration Date Visits Requested Visits Authorized [id number] Authorized Auto-Generat ed Referral 2 08/21/2022 1 1 Specialty Diagnoses / Procedures Referred By Contac t Referred To Contact Ophthalmology Diagnoses Vision changes Procedures CONSULT TO OPHTHALMOLOGY OFFICE/OUTPATIENT [facility] 60-74 MINUTES Glenroy Syed, HIGHWALL DRILL OPERATOR.CHANNEL PROCESS PLANT OPERATOR [address] [place] [address] Josefina Grimes MD [address] [place] [id number] Referral ID Status Reason Start Date Expiration Date Visits Requested Visits Authorized [id number] Authorized PCP Requested Referral 2 07/07/2023 1 1 Specialty Diagnoses / Procedures Referred By Contac t Referred To Contact [facility] Diagnoses Palpitations Procedures ECHO ECHO TTHRC R-T 2D W/WOM-MODE COMPL SPEC&COLR D Glenroy Syed, HIGHWALL DRILL OPERATOR.CHANNEL PROCESS PLANT OPERATOR [address] [place] [id number] [facility] [address] [place] [address] Referral ID Status Reason Start Date Expiration Date Visits Requested Visits Authorized [id number] Authorized Auto-Generat ed Referral 2 07/07/2023 1 1 Additional Source Comments INFORMATION SOURCE (unrecogn ized section and content) DATE CREATED AUTHOR 11/24/2021 [facility] DATE CREATED AUTHOR AUTHOR'S ORGANIZ ATION 07/20/2022 [facility] DATE CREATED AUTHOR AUTHOR'S ORGANIZ ATION 09/06/2022 [facility] DATE CREATED AUTHOR AUTHOR'S ORGANIZ ATION 10/16/2022 [facility] DATE CREATED AUTHOR AUTHOR'S ORGANIZ ATION 10/26/2023 [facility] dical [facility] DATE CREATED AUTHOR AUTHOR'S ORGANIZ ATION 01/04/2024 [facility] DATE CREATED AUTHOR AUTHOR'S ORGANIZ ATION 02/01/2024 [facility] Source Comments (unrecognize d section and content) In the event this informatio n is protected by the Federal Confidentiality of Alcohol and Drug Abuse Patient Records regulations: The Federal rules restrict any use of the information to criminally investigate or prosecute any alcohol or drug abuse patient.[facility] the event this information is protected by the Federal Confidentiality of Alcohol and Drug Abuse Patient Records regulations: The Federal rules restrict any use of the information to criminally investigate or prosecute any alcohol or drug abuse patient.[facility] the event this information is protected by the Federal Confidentiality of Alcohol and Drug Abuse Patient Records regulations: The Federal rules restrict any use of the information to criminally investigate or prosecute any alcohol or drug abuse patient.[facility] the event this information is protected by the Federal Confidentiality of Alcohol and Drug Abuse Patient Records regulations: The Federal rules restrict any use of the information to criminally investigate or prosecute any alcohol or drug abuse patient.[facility] the event this information is protected by the Federal Confidentiality of Alcohol and Drug Abuse Patient Records regulations: The Federal rules restrict any use of the information to criminally investigate or prosecute any alcohol or drug abuse patient.[facility] the event this information is protected by the Federal Confidentiality of Alcohol and Drug Abuse Patient Records regulations: The Federal rules restrict any use of the information to criminally investigate or prosecute any alcohol or drug abuse patient.[facility] the event this information is protected by the Federal Confidentiality of Alcohol and Drug Abuse Patient Records regulations: The Federal rules restrict any use of the information to criminally investigate or prosecute any alcohol or drug abuse patient.[facility] the event this information is protected by the Federal Confidentiality of Alcohol and Drug Abuse Patient Records regulations: The Federal rules restrict any use of the information to criminally investigate or prosecute any alcohol or drug abuse patient.[facility] the event this information is protected by the Federal Confidentiality of Alcohol and Drug Abuse Patient Records regulations: The Federal rules restrict any use of the information to criminally investigate or prosecute any alcohol or drug abuse patient.[facility] the event this information is protected by the Federal Confidentiality of Alcohol and Drug Abuse Patient Records regulations: The Federal rules restrict any use of the information to criminally investigate or prosecute any alcohol or drug abuse patient.[facility] Reason for Visit (unrecogniz ed [...] NEW RS PT VESTIBULAR DIZZY Glenroy Syed, HIGHWALL DRILL OPERATOR.CHANNEL PROCESS PLANT OPERATOR [address] [place] [address] SeeCarmen vazquez, PT [address] [place] [address] Referral ID Status Reason Start Date Expiration Date Visits Re quested Visits Authorized [id number] Closed 08/08/2021 08/07/2022 30 30 Reason Comments Physical Therapy Specialty Diagnoses / Procedures Referred By Contac t Referred To Contact PHYSICAL THERAPY Diagnoses Dizziness Procedures Physical Therapy Glenroy Syed, HIGHWALL DRILL OPERATOR.CHANNEL PROCESS PLANT OPERATOR [address] [place] [address] [facility] [address] [place] [address] Referral ID Status Reason Start Date Expiration Date V isits Requested Visits Authorized [id number] Pending Review 08/12/2022 11/10/2022 1 1 Reason Comments Establish Care Palpitations Dizziness Specialty Diagnoses / Procedures Referred By Contac t Referred To Contact Cardiology Diagnoses Dizziness Palpitations Procedures CONSULT TO CARDIOLOGY OFFICE/OUTPATIENT [facility] MDM 60-74 MINUTES Glenroy Syed, HIGHWALL DRILL OPERATOR.CHANNEL PROCESS PLANT OPERATOR [address] [place] [address] Referral ID Status Reason Start Date Expiration Date V isits Requested Visits Authorized [id number] Closed PCP Requested Referral 07/07/2022 07/07/2023 1 1 Reason Comments Radiology MRI Care Teams (unrecognized sec tion and content) Set Up And Charger Relationship Specialty Start Date End Date Mert Lama MD [address] [place] [address] Referring Family Medicine 06/10/22 Set Up And Charger Relationship Specialty Start Date End Date Mert Lama MD [address] [place] [address] Referring [facility] 06/10/22 Set Up And Charger Relationship Specialty Start Date End Date Mert Lama MD [address] [place] [address] Referring [facility] 06/10/22 Set Up And Charger Relationship Specialty Start Date End Date Mert Lama MD [address] [place] [address] Referring Family Medicine 06/10/22 Set Up And Charger Relationship Specialty Start Date End Date Mert Lama MD [address] [place] [address] Referring [facility] 06/10/22 Set Up And Charger Relationship Specialty Start Date End Date Mert Lama MD [address] [place] [address] Referring [facility] 06/10/22 Set Up And Charger Relationship Specialty Start Date End Date Mert Lama MD [address] [place] [address] Referring [facility] 06/10/22 Set Up And Charger Relationship Specialty Start Date End Date Mert Lama MD [address] [place] [address] Referring [facility] 06/10/22 FOR RECORDS PERTAINING TO PATIENTS [...] BE BASED ON THE PRIMARY CLINICAL RECORDS. [employer] [facility]. provides no warranty or guarantee of the accuracy or completeness of information in this document.
[2024-03-06 07:58] VITALS: BP 132/78; PULSE 94; TEMP 37.7; O2SAT 95
[2024-03-06 08:38] VITALS: BP 130/83; PULSE 77; O2SAT 97
[2024-03-06 08:40] VITALS: BP 131/86; PULSE 76; O2SAT 97
[2024-03-06] MEDS: BUPIVACAINE HCL 0.25% PF 25 MG/10 ML VIAL 6 ML INJ ×2 (08:45)
--- NOTE | 2024-03-06 09:31 | P.ON_ITS ---
Date of procedure: 03/06/24 Pre-op diagnosis: lumbar spondylosis Post-op diagnosis: same as pre-op Procedure: Bilateral lumbar 4-5, 5-S1 medial branch block Under fluoroscopic guidance Solution injected: 2millilitersMarcaine 0.25% Anesthesia :none Immediate complications none Time out process compliant After informed consent obtained from the patient placed in the Prone proposition . area was prepped and draped in a sterile fashion using Cloraprep .25 gauge spinal needle inserted over each of the above mentioned target areas . Woodward were directed towards the target under fluoroscopic guidance . after encountering each of the targets , no indication of intravascular intraneuronal or intrathecal needle tip placement. Then 0 .5 to 1 Milliliter was injected at each level. Woodward removed postoperatively. patient transferred to recovery in stable condition to be discharged home after meeting criteria Anesthesia: Local Surgeon: Pedro Mccormick Condition: stable Disposition: PACU
== END 2024-03-06 08:49 | disposition home or self-care (01) ==
LOC: SURGOUT 07:36
PROVIDERS: PCP Family Medicine; Visit Provider Anesthesiology Pain Medicine
DX: M47.816 Spondylosis without myelopathy or radiculopathy, lumbar region (principal)
CPT/HCPCS: 64493; 64494; J0665

== ENCOUNTER 2024-03-08 13:47 | Outpatient (OUT) | payer BC, SELFPAY ==
--- OUTSIDE RECORDS SUMMARY | 2024-03-08 13:56 | XMS_ITS | CCD ---
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] Onset: 09-06-2022 Episodic Other [...] Range Facility ED Note-Physicianon 01-03-20 ED Note-Physician [id number]#1.00 TIFF [facility] RAD - MRI Reporton RAD - MRI Report [id number]#1.0 0TIFF [facility] RAD - MRI Report [id number]#1.0 0TIFF [facility] RAD - MRI Report [id number]#1.00 TIFF [facility] RAD - MRI Report [id number]#1.00 TIFF [facility] RAD - MRI Report [id number]#1.0 0TIFF [facility] RAD - MRI Report [id number]#1.00 TIFF [facility] Physician Orderon 12-22-2023 Physician Order [id number]#1.00 TIFF [facility] Provider Letteron 12-21-2023 Provider Letter December 21, 2023 [place] [address] : 1980 To Whom It May Concern, Please excuse above patient from work. Date of Illness: From: 12/19/2023 To: 12/21/2023 May Return to Work On: 12/22/2023 Sincerely, HARPREET Stewart [address] [facility] Lab Reportson 12-20-2023 Lab Reports [id number]#1.00 TIFF [address] [facility] Physician Orderon 12-20-2023 Physician Order [id number]#1.00 TIFF [address] [facility] RAD - MISCon 12-20-2023 RAD - MISC [id number]#1.00 TIFF [address] [facility] Ambulatory Visit Summaryon 0 12-19-2023 Ambulatory Visit [...] sciatica BMI 40.0-44.9, adult Non-smoker Pickup at [facility]/pharmacy #[id number] New meloxicam (meloxicam 15 mg Tab) 1 Tablets By Mouth Every day Low back pain with sciatica BMI 40.0-44.9, adult Non-smoker Pickup at [facility]/pharmacy #6177 New methylPREDNISolone (Medrol 4 mg Tab) 1 Packets By Mouth As Directed Low back pain with sciatica BMI 40.0-44.9, adult Non-smoker Duration: 6 Days as directed on package labeling Pickup at [facility]/pharmacy #6177 Unchanged metoprolol (Metoprolol tartrate 50 mg Tab) 1 Tablets By Mouth 2 times a day [id number] [address], [place] [id number] [phone] Medications and Immunizations Administered Given ketorolac 30 [...] for choosing us for your care. Normal [facility] Consenton 12-19-2023 Consent [id number]#1.00 TIFF [address] [facility] Family Medicine Office/Clini c Noteon 12-19-2023 Family [...] labs and she will have done at [facility] she works there Health [...] sit, lay down. Had x-ray done at [facility] for spine over a [...] Bedtime for spasm, 20 cap(s), Refill(s) 0, [facility]/pharmacy #6177, 165.1, cm, 12/19/23 13:17:00 EDT, Height/Length Dosing, 114.6, kg, 12/19/23 13:17:00 EDT, Weight Dosing ketorolac, 30 mg = 1 mL, Injection, IntraMuscular, Once, Stop date 12/19/23 13:35:00 EDT, Routine, Start date 12/19/23 13:35:00 EDT, 12/19/23 13:35:00 EDT meloxicam, 15 mg = 1 tab(s), Oral, Daily, # 30 tab(s), Refills(s) 0, Pharmacy: [facility]/pharmacy #6177, 165.1, cm, 12/19/23 13:17:00 EDT, Height/Length Dosing, 114.6, kg, 12/19/23 13:17:00 EDT, Weight Dosing methylPREDNISolone, = 1 packet(s), Oral, As Directed, as directed on package labeling, X 6 day(s), # 21 tab(s), Refills(s) 0, Pharmacy: [facility]/pharmacy #6177, 165.1, cm, 12/19/23 13:17:00 EDT, Height/Length Dosing, 114.6, kg, 12/19/23 13:17:00 EDT, Weight Dosing 2. BMI 40.0-44.9, adult (Z68.41: Body mass index [BMI] 40.0-44.9, adult) BMI education complete Ordered: cyclobenzaprine, 15 mg, 1 cap(s), Oral, Bedtime for spasm, 20 cap(s), Refill(s) 0, [facility]/pharmacy #6177, 165.1, cm, 12/19/23 13:17:00 EDT, Height/Length Dosing, 114.6, kg, 12/19/23 13:17:00 EDT, Weight Dosing ketorolac, 30 mg = 1 mL, Injection, IntraMuscular, Once, Stop date 12/19/23 13:35:00 EDT, Routine, Start date 12/19/23 13:35:00 EDT, 12/19/23 13:35:00 EDT meloxicam, 15 mg = 1 tab(s), Oral, Daily, # 30 tab(s), Refills(s) 0, Pharmacy: [facility]/pharmacy #6177, 165.1, cm, 12/19/23 13:17:00 EDT, Height/Length Dosing, 114.6, kg, 12/19/23 13:17:00 EDT, Weight Dosing methylPREDNISolone, = 1 packet(s), Oral, As Directed, as directed on package labeling, X 6 day(s), # 21 tab(s), Refills(s) 0, [facility], 165.1, cm, 12/19/23 13:17:00 EDT, Height/Length Dosing, 114.6, kg, 12/19/23 13:17:00 EDT, Weight Dosing 3. Non-smoker (Z78.9: Other specified health status) continue not smoking Ordered: cyclobenzaprine, 15 mg, 1 cap(s), Oral, Bedtime for spasm, 20 cap(s), Refill(s) 0, [facility], 165.1, cm, 12/19/23 13:17:00 EDT, Height/Length Dosing, 114.6, kg, 12/19/23 13:17:00 EDT, Weight Dosing ketorolac, 30 mg = 1 mL, Injection, IntraMuscular, Once, Stop date 12/19/23 13:35:00 EDT, Routine, Start date 12/19/23 13:35:00 EDT, 12/19/23 13:35:00 EDT meloxicam, 15 mg = 1 tab(s), Oral, Daily, # 30 tab(s), Refills(s) 0, [facility], 165.1, cm, 12/19/23 13:17:00 EDT, Height/Length Dosing, 114.6, kg, 12/19/23 13:17:00 EDT, Weight Dosing methylPREDNISolone, = 1 packet(s), Oral, As Directed, as directed on package labeling, X 6 day(s), # 21 tab(s), Refills(s) 0, Pharmacy: [facility]/pharmacy #6177, 165.1, cm, 12/19/23 13:17:00 EDT, Height/Length Dosing, 114.6, kg, 12/19/23 13:17:00 EDT, Weight Dosing Follow-up No qualifying data available Problem List/Past Medical History Ongoing Anemia Anxiety (more content not included)... [facility] Comment on above: Result Comment: Elec tronically Signed By: Cristiane Brasher\Date and Time Signed: 12/19/23 13:59 EDT Physician Orderon 12-19-2023 Physician Order [id number]#1.00 TIFF [facility] Consultation Noteon 02-15-20 Consultation Note [id number]#1.0 0CD:127 [facility] Consultation Noteon 02-05-20 Consultation Note [id number]#1.0 0CD:127 [facility] Comment on above: Other Comment: INCOM PLETE FAX.NDW Formson 02-02-2023 Forms [id number]#1.0 0CD:127 [facility] Consultation Noteon 01-29-20 Consultation Note [id number]#1.00 CD:127 [facility] Cardiovascular Reporton 01-06 Cardiovascular Report [id number]#1.0 0CD:127 [facility] MRI BRAIN WO/W IVCONon 10-14 MRI [...] cord. No mass or pathologic intradural enhancement. Traveling Secretary: NARCISO Transcribe Date/Time: Oct 14 2022 8:43P Dictated by : UNIQUE ANDERSON MD This examination was interpreted and the report reviewed and electronically signed by: UNIQUE ANDERSON MD on Oct 14 2022 8:51PM EST [id number] Normal [place] MRI CERVICAL SPINE WO/W IVCO Non 10-14-2022 [...] cord. No mass or pathologic intradural enhancement. Traveling Secretary: [facility] Transcribe Date/Time: Oct 14 2022 8:43P Dictated by : UNIQUE ANDERSON MD This examination was interpreted and the report reviewed and electronically signed by: UNIQUE ANDERSON MD on Oct 14 2022 8:51PM EST [id number] Normal [place] CBC AUTO DIFFon 09-02-2022 BASO # 0.1 103/ul Normal 0.0-0.1 [facility] Comment on above: Performed By: #### C MP, TSH, HSTROPN #### [facility] [address] [place] [address] Dr. Christos Fallon Basophils/100 WBC (Bld) 0.5 % Normal 0.2-2.0 [facility] Comment on above: Performed By: #### C MP, TSH, HSTROPN #### [facility] [address] [address] [address] Christos Fallon EO # 0.2 103/ul Normal 0.0-0.7 [facility] Comment on above: Performed By: #### C MP, TSH, HSTROPN #### [facility] [address] [place] [address] Dr. Christos Fallon Eosinophils/100 WBC (Bld) 2.3 % Normal 0.9-7.0 [facility] Comment on above: Performed By: #### C MP, TSH, HSTROPN #### [facility] [address] [place] [address] Dr. Christos Fallon Erythrocyte distribution width (RBC) [Ratio] 13.0 % Normal 11.0-15.[address] [facility] Comment on above: Performed By: #### C MP, TSH, HSTROPN #### [facility] [address] [place] [address] Dr. Christos Fallon Hematocrit (Bld) [Volume fraction] 43.0 % Normal 36.0-48.[address] [facility] Comment on above: Performed By: #### C MP, TSH, HSTROPN #### [facility] [address] [place] [address] Dr. Christos Fallon Hemoglobin (Bld) [Mass/Vol] 13.9 g/dL Normal 12.0-16.[address] [facility] Comment on above: Performed By: #### C MP, TSH, HSTROPN #### [facility] [address] [place] [address] Dr. Christos Fallon IG # 0.03 10e3/ul Normal 0.00-0.[address] [facility] Comment on above: Performed By: #### C MP, TSH, HSTROPN #### [facility] [address] [place] [address] Dr. Christos Fallon IG % 0.3 % Normal 0.0-0.[address] [facility] Comment on above: Performed By: #### C MP, TSH, HSTROPN #### [facility] [address] [place] [address] Dr. Christos Fallon LYMPH # 2.8 103/ul Normal 1.2-3.8 [facility] Comment on above: Performed By: #### C MP, TSH, HSTROPN #### [facility] [address] [place] [address] Dr. Christos Fallon Lymphocytes/100 WBC (Bld) 29.6 % Normal 20.5-60.[address] [facility] Comment on above: Performed By: #### C MP, TSH, HSTROPN #### [facility] [address] [place] [address] Dr. Christos Fallon MANUAL DIFF REQ NO Normal [facility] Comment on above: Performed By: #### C MP, TSH, HSTROPN #### [facility] [address] [place] [address] Dr. Christos Fallon MCH (RBC) [Entitic mass] 34.8 pg Critically high 26.7-34.[address] [facility] Comment on above: Performed By: #### C MP, TSH, HSTROPN #### [facility] [address] [place] [address] Dr. Christos Fallon MCHC (RBC) [Mass/Vol] 32.3 g/dL Normal 29.9-35.2 [facility] Comment on above: Performed By: #### C MP, TSH, HSTROPN #### [facility] [address] [place] [address] Dr. Christos Fallon MCV (RBC) [Entitic vol] 107.5 fL Critically high 81.0-99.[address] [facility] Comment on above: Performed By: #### C MP, TSH, HSTROPN #### [facility] [address] [place] [address] Dr. Christos Fallon MONO # 0.7 103/ul Normal 0.3-0.[address] [facility] Comment on above: Performed By: #### C MP, TSH, HSTROPN #### [facility] [address] [place] [address] Dr. Christos Fallon Monocytes/100 WBC (Bld) 7.7 % Normal 1.7-12.[address] [facility] Comment on above: Performed By: #### C MP, TSH, HSTROPN #### [facility] [address] [place] [address] Dr. Christos Fallon NEUT # 5.7 103/ul Normal 1.4-6.[address] [facility] Comment on above: Performed By: #### C MP, TSH, HSTROPN #### [facility] [address] [place] [address] Dr. Christos Fallon Neutrophils/100 WBC (Bld) 59.6 % Normal 43.0-75.[address] [facility] Comment on above: Performed By: #### C MP, TSH, HSTROPN #### [facility] [address] [address] [address] Christos Fallon Platelet mean volume (Bld) [Entitic vol] 9.9 fL Normal 9.5-13.5 [facility] Comment on above: Performed By: #### C MP, TSH, HSTROPN #### [facility] [address] [address] [address] Christos Fallon PLT 309 103/ul Normal 150-450 [facility] Comment on above: Performed By: #### C MP, TSH, HSTROPN #### [facility] [address] [place] [address] Dr. Christos Fallon RBC 4.00 106/ul Critically low 4.20-5.40 [facility] Comment on above: Performed By: #### C MP, TSH, HSTROPN #### [facility] [address] [place] [address] Dr. Christos Fallon WBC 9.6 103/ul Normal 4.0-11.0 [facility] Comment on above: Performed By: #### C MP, TSH, HSTROPN #### [facility] [address] [place] [address] Dr. Christos Fallon D-DIMERon 09-02-2022 D-DIMER 0.28 mg/L FEU Normal <=0.59 [facility] Comment on above: Performed By: #### C MP, TSH, HSTROPN #### [facility] [address] [place] [address] Dr. Christos Fallon D-DIMER COMMENTS SEE BELOW Normal [facility] Comment on above: Result Comment: Incr [...] By: #### C MP, TSH, HSTROPN #### [facility] [address] [place] [address] Dr. Christos Fallon PROF 14(COMP METB)on 023 Albumin [Mass/Vol] 3.8 g/dL Normal 3.4-5.0 [facility] Comment on above: Performed By: #### C MP, TSH, HSTROPN #### [facility] [address] [place] [address] Dr. Christos Fallon Albumin/Globulin [Mass ratio] 1.2 {ratio} Normal [facility] Comment on above: Performed By: #### C MP, TSH, HSTROPN #### [facility] [address] [place] [address] Dr. Christos Fallon ALP [Catalytic activity/Vol] 85 U/L Normal 46-[address] [facility] Comment on above: Performed By: #### C MP, TSH, HSTROPN #### [facility] [address] [place] [address] Dr. Christos Fallon ALT [Catalytic activity/Vol] 39 U/L Normal 14-[address] [facility] Comment on above: Performed By: #### C MP, TSH, HSTROPN #### [facility] [address] [place] [address] Dr. Christos Fallon Anion gap [Moles/Vol] 16.3 mmol/L Normal [facility] Comment on above: Performed By: #### C MP, TSH, HSTROPN #### [facility] [address] [place] [address] Dr. Christos Fallon AST [Catalytic activity/Vol] 19 U/L Normal 15-[address] [facility] Comment on above: Performed By: #### C MP, TSH, HSTROPN #### [facility] [address] [place] [address] Dr. Christos Fallon Bilirubin [Mass/Vol] 0.4 mg/dL Normal 0.2-1.[address] [facility] Comment on above: Performed By: #### C MP, TSH, HSTROPN #### [facility] [address] [address] [address] Christos Fallon Calcium [Mass/Vol] 9.2 mg/dL Normal 8.5-10.1 [facility] Comment on above: Performed By: #### C MP, TSH, HSTROPN #### [facility] [address] [address] [address] Christos Fallon Chloride [Moles/Vol] 101 mmol/L Normal 98-107 [facility] Comment on above: Performed By: #### C MP, TSH, HSTROPN #### [facility] [address] [place] [address] Dr. Christos Fallon CO2 [Moles/Vol] 24.9 mmol/L Normal 21.0-32.0 [facility] Comment on above: Performed By: #### C MP, TSH, HSTROPN #### [facility] [address] [place] [address] Dr. Christos Fallon Creatinine [Mass/Vol] 0.83 mg/dL Normal 0.55-1.[address] [facility] Comment on above: Performed By: #### C MP, TSH, HSTROPN #### [facility] [address] [place] [address] Dr. Christos Fallon EGFR-AF MICRONESIAN >60 Normal >=60 [facility] Comment on above: Performed By: #### C MP, TSH, HSTROPN #### [facility] [address] [place] [address] Dr. Christos Fallon EGFR-NON AF MICRONESIAN >60 Normal >=60 [facility] Comment on above: Performed By: #### C MP, TSH, HSTROPN #### [facility] [address] [place] [address] Dr. Christos Fallon Globulin (S) [Mass/Vol] 3.2 g/dL Normal [facility] Comment on above: Performed By: #### C MP, TSH, HSTROPN #### [facility] [address] [place], [place] [id number] Dr. Christos Fallon Glucose [Mass/Vol] 142 mg/dL Critically high 74-106 [facility] Comment on above: Performed By: #### C MP, TSH, HSTROPN #### [facility] [address] [place] [address] Dr. Christos Fallon Potassium [Moles/Vol] 3.2 mmol/L Critically low 3.5-5.[address] [facility] Comment on above: Performed By: #### C MP, TSH, HSTROPN #### [facility] [address] [place] [address] Dr. hCristos Fallon Protein [Mass/Vol] 7.0 g/dL Normal 6.4-8.2 [facility] Comment on above: Performed By: #### C MP, TSH, HSTROPN #### [facility] [address] [place] [address] Dr. Christos Fallon Sodium [Moles/Vol] 139 mmol/L Normal 136-145 [facility] Comment on above: Performed By: #### C MP, TSH, HSTROPN #### [facility] [address] [place] [address] Dr. Christos Fallon Urea nitrogen [Mass/Vol] 10.0 mg/dL Normal 7.0-18.[address] [facility] Comment on above: Performed By: #### C MP, TSH, HSTROPN #### [facility] [address] [place] [address] Dr. Christos Fallon Urea nitrogen/Creatinine [Mass ratio] 12.0 mg/mg Normal [facility] Comment on above: Performed By: #### C MP, TSH, HSTROPN #### [facility] [address] [place] [address] Dr. Christos Fallon PROTIMEon 09-02-2022 INR Coag (PPP) [Relative time] {INR} Normal [facility] Comment on above: Performed By: #### C MP, TSH, HSTROPN #### [facility] [address] [place] [address] Dr. Christos Fallon INR GUIDELINES SEE BELOW Normal [facility] Comment on above: Result Comment: GUALBERTO RED INR: 2.0 - 3.0 CONDITIONS NOT LISTED BELOW 2.5 - 3.5 FOR PROSTHETIC HEART VALVE REPLACEMENT 2.5 - 3.5 RECURRENT THROMBOSIS Performed By: #### C MP, TSH, HSTROPN #### [facility] [address] [place] [address] Dr. Christos Fallon PT Coag (PPP) [Time] 9.7 s Normal 9.0-11.6 [facility] Comment on above: Performed By: #### C MP, TSH, HSTROPN #### [facility] [address] [place] [address] Dr. Christos Fallon PTTon 09-02-2022 aPTT Coag (Bld) [Time] 25.9 s Normal 22.3-36.2 [facility] Comment on above: Performed By: #### C MP, TSH, HSTROPN #### [facility] [address] [place] [address] Dr. Christos Fallon TROPONIN, HIGH SENSITIVITYon 09-02-2022 HSTROP <4.0 Normal 4.0-51.3 [facility] Comment on above: Result Comment: CUT- OFF POINTS HAVE BEEN ESTABLISHED BASED ON THE FOURTH UNIVERSAL DEFINITIONS OF MYOCARDIAL INFARCTION. THE UPPER REFERENCE LIMIT (URL) OF TROPONIN, DEFINED THE 99TH PERCENTILE OF cTnI DISTRIBUTION IN A REFERENCE POPULATION, HAS BEEN CONFIRMED THE DECISION THRESHOLD FOR [place] DIAGNOSIS. Performed By: #### C MP, TSH, HSTROPN #### [facility] [address] [place] [address] Dr. Christos Fallon TSHon 09-02-2022 TSH 0.813 uIU/mL Normal 0.358-3.740 [facility] Comment on above: Performed By: #### C MP, TSH, HSTROPN #### [facility] [address] [place] [address] Dr. Christos Fallon XR CHEST 1 Von [...] by: LEEANNE MON Date: 2022-09-02 15:09 [facility] ) CHRISTINAKAILA Emily ([id number]) 1980 F Date Time Provider Department 08/24/22 2:00 PM JANELL SY During your visit today, we recorded the following information about you: Pulse Blood pressure Weight Height 88/minute 112/73 112.9 kg 1.626 m Janell Sy MD 08/24/2022 2:17 PM Signed [facility] [place] SECTION OF REGIONAL CARDIOLOGY OUTPATIENT VISIT DATE [...] Cardiac work-up includes: Echocardiogram on 05/19/2020 at [facility] showed normal ejection fraction. No valvular heart [...] ECG COMPLETE 4. Obesity, morbid, BMI 40.0-49.9 ([facility]) E66.01 ECG COMPLETE 5. SVT (supraventricular tachycardia) ([facility]) I47.1 6. Chronic fatigue R53.82 [...] apnea) Palpitatio (more content not included)... Normal [place] ECG COMPLETEon 08-24-2022 ECG COMPLETE Ventricular Rate : 8 4 BPM Atrial Rate : 84 BPM P-R Interval : 166 ms QRS Duration : 92 ms Q-T Interval : 358 ms QTC Calculation(Bazett) : 423 ms Calculated P [place] : 60 degrees Calculated R [place] : 45 degrees Calculated T [place] : 45 degrees NORMAL SINUS RHYTHM INCREASED R/S RATIO IN V1, CONSIDER EARLY TRANSITION OR POSTERIOR INFARCT ABNORMAL ECG Confirmed by MEERA BOYD M.D. ([id number]) on 08/28/2022 3:03:10 PM NAME : KAILA VASQUEZ PID : [id number] : 1980 Gender : Female Race : ORD : [id number] Procedure Date : Aug 24 2022 13:56:02 [...] JANELL SY Acquired by : Jose browning [place] CNTHERAPYon 08-12-2022 CNTHERAPY OT/PT/Speech Visit (PTAMCF) KAILA VASQUEZ ([id number]) 1980 F Date Time Provider Department 08/12/22 2:45 PM SEJAL CARMEN [facility] Date Time Provider Department Center 08/12/2022 2:45 PM [id number], KARA [facility] Reason for Visit: Physical Therapy [...] % (flush) 10 mL (BD POSIFLUSH) Normal [place] CNTHERAPYon 08-05-2022 CNTHERAPY OT/PT/Speech Visit (PTAF) KAILA VASQUEZ ([id number]) 1980 F Date Time Provider Department 08/05/22 9:15 AM CARMEN [facility] Date Time Provider Department Center 08/05/2022 9:15 AM [id number], KARA [facility] Reason for Visit: PT Eval [747] [...] % (flush) 10 mL (BD POSIFLUSH) Normal [place] Covid-19 PCR (CVDTB)on 07-09 SARS-CoV-2 (COVID-19) RNA LEROY+probe Ql (Unsp spec) Not detected Normal NOT DETECTED [facility] Comment on above: Result Comment: When [...] for this test is supported by the [place] of [employer] and Human Service's declaration that [...] used). Performed By: #### C VDAGA #### [facility] [address] [place] [address] Dr. Christos Fallon 25(OH)D3 [facility] 2021 25-hydroxyvitamin D3 [Mass/Vol] 15.8 ng/mL Low 31.0-80.0 [place] Comment on above: Order Comment: Speci men Type: BLOOD SPECIMENOrdering Facility: [facility] Address: [address] [place] [address] Result Comment: Clas sification of 25 [place] Vitamin D status: Deficiency/Insufficiency: < or = 30 ng/ml. Sufficiency/Optimal Levels: 31-80 ng/mL Toxicity: > 100 ng/mL. Test performed by chemiluminescent immunoassay. Performed By: #### 1 989-3 ####[facility] LABIA [id number] [place] [address] [place] [facility] ESEQUIEL BY IFA WITH REFLEXon ESEQUIEL PATTERN Nuclear fine speckled Normal [facility] Comment on above: Order Comment: Speci betty Type: BLOOD SPECIMENOrdering Facility: [facility] Address: [address] [place] [address] Performed By: #### 2 9374-6, 71023-2, 64810-3, 29146-3, 04590-4, ANAIFR, 73717-4, 04909-1, 81336-4, 28661-1 ####[facility] LABCLIA [id number] [address] [place] ESEQUIEL TITER 1:160 Normal [place] Comment on above: Order Comment: Speci men Type: BLOOD SPECIMENOrdering Facility: [facility] Address: [address] [phone] Performed By: #### 2 9374-6, 98869-0, 43781-6, 43583-1, 47358-6, ANAIFR, 01268-2, 23946-4, 25700-8, 11974-4 ####[facility] LABCLIA [id number] [place] [address] [place] Nuclear Ab IF (S) [Titer] Positive Abnormal Negative [place] Comment on above: Order Comment: Speci men Type: BLOOD SPECIMENOrdering Facility: [facility] Address: [address] [address] Result Comment: Anti -nuclear antibody test is used as an aid in diagnosis of systemic autoimmune diseases. Where positive and clinically warranted, follow-up using disease-specific testing is recommended. Low positive titers are not uncommon with advanced age, certain chronic infections, and malignancies among others. Test methodology: Indirect fluorescence immunoassay (IFA) using HEp-2 cells. Performed By: #### 2 9374-6, 43792-0, 44527-1, 53021-0, 02558-5, ANAIFR, 16750-7, 23198-2, 23181-2, 93491-0 ####[facility] LABCLIA [id number] [place] [address] [place] Basic metabolic 2000 panelon 07-07-2022 Anion gap [Moles/Vol] 13 mmol/L Normal 9-18 [facility] Comment on above: Order Comment: Speci men Type: BLOOD SPECIMENOrdering Facility: [facility] Address: [address] [phone] Performed By: #### 2 4321-2 ####[facility] LABCLIA [id number] [place] [address] [place] Calcium [Mass/Vol] 9.3 mg/dL Normal 8.5-10.2 [facility] Comment on above: Order Comment: Speci men Type: BLOOD SPECIMENOrdering Facility: [facility] Address: [address] [address] Performed By: #### 2 4321-2 ####[facility] LABCLIA [id number] [place] [address] [place] Chloride [Moles/Vol] 102 mmol/L Normal 97-105 [facility] Comment on above: Order Comment: Speci men Type: BLOOD SPECIMENOrdering Facility: [facility] Address: [address] [place] [address] Performed By: #### 2 4321-2 ####[facility] LABCLIA [id number] [place] [address] [place] CO2 [Moles/Vol] 23 mmol/L Normal 22-30 [place] Comment on above: Order Comment: Speci men Type: BLOOD SPECIMENOrdering Facility: [facility] Address: [address] [place] [address] Performed By: #### 2 4321-2 ####[facility] LABCLIA [id number] [place] [address] [place] Creatinine [Mass/Vol] 0.72 mg/dL Normal 0.58-0.96 [facility] Comment on above: Order Comment: Speci men Type: BLOOD SPECIMENOrdering Facility: [facility] Address: [address] [place] [address] Performed By: #### 2 4321-2 ####[facility] LABCLIA [id number] [place] [address] [place] ESTIMATED GLOMERULAR FILTRATION RATE 109 mL/min/1.73m??? Normal >=60 [place] Comment on above: Order Comment: Speci men Type: BLOOD SPECIMENOrdering Facility: [facility] Address: [address] [place] [address] Result Comment: Dina mated Glomerular Filtration Rate [...] By: #### 2 4321-2 ####[facility] LABCLIA [id number] [place] [address] [place] Glucose [Mass/Vol] 98 mg/dL Normal 74-99 [facility] Comment on above: Order Comment: Bryan men Type: BLOOD SPECIMENOrdering Facility: [facility] Address: [address] [place] [address] Result Comment: The [place] Diabetes Association (ADA) provides guidance for cutoff [...] Standards of Medical Care in Diabetes 2016, [place] [employer]. Diabetes Care. 2016.39(Suppl 1). Performed By: #### 2 4321-2 ####[facility] LABCLIA [id number] [place] [address] [place] Potassium [Moles/Vol] 4.1 mmol/L Normal 3.7-5.1 [facility] Comment on above: Order Comment: Bryan hernández Type: BLOOD SPECIMENOrdering Facility: [facility] Address: [address] [place], [place] [phone] Performed By: #### 2 4321-2 ####[facility] LABCLIA [id number] [place] [address] [place] Sodium [Moles/Vol] 138 mmol/L Normal 136-144 [facility] Comment on above: Order Comment: Speci men Type: BLOOD SPECIMENOrdering Facility: [facility] Address: [address] [address] Performed By: #### 2 4321-2 ####[facility] LABCLIA [id number] [place] [address] [place] Urea nitrogen [Mass/Vol] 8 mg/dL Normal 7-21 [place] Comment on above: Order Comment: Speci men Type: BLOOD SPECIMENOrdering Facility: [facility] Address: [address] [address] Performed By: #### 2 4321-2 ####[facility] LABCLIA [id number] [place] [address] [place] Anion gap [Moles/Vol] 13 mmol/L 9 - 18 mmol/L [facility] Calcium [Mass/Vol] 9.3 mg/dL 8.5 - 10. 2 mg/dL [facility] Chloride [Moles/Vol] 102 mmol/L 97 - 10 5 mmol/L [facility] CO2 [Moles/Vol] 23 mmol/L 22 - 30 mmol/L [facility] Creatinine [Mass/Vol] 0.72 mg/dL 0.58 - 0.96 mg/dL [facility] Estimated Glomerular Filtration Rate 109 mL/min/1.73m >=60 mL/min/1.73m [facility] Glucose [Mass/Vol] 98 mg/dL 74 - 99 mg/dL [facility] Potassium [Moles/Vol] 4.1 mmol/L 3.7 - 5.1 mmol/L [facility] Sodium [Moles/Vol] 138 mmol/L 136 - 144 mmol/L [facility] Urea nitrogen [Mass/Vol] 8 mg/dL 7 - 21 mg/dL [facility] CBC W Auto Differential pane l (Bld)on 07-07-2022 Basophils (Bld) [#/Vol] 0.04 10*3/uL Normal <0.11 [place] Comment on above: Order Comment: Speci men Type: BLOOD SPECIMENOrdering Facility: [facility] Address: [address] [address] Performed By: #### 5 7021-8 ####[facility] LABCLIA [id number] [place] [address] [place] Basophils/100 WBC (Bld) 0.5 % Normal [place] Comment on above: Order Comment: Speci men Type: BLOOD SPECIMENOrdering Facility: [facility] Address: [address] [place] [address] Performed By: #### 5 7021-8 ####[facility] LABCLIA [id number] [place] [address] [place] Differential cell count method Nom (Bld) Auto Normal [place] Comment on above: Order Comment: Speci men Type: BLOOD SPECIMENOrdering Facility: [facility] Address: [address] [place] [address] Performed By: #### 5 7021-8 ####[facility] LABCLIA [id number] [place] [address] [place] Eosinophils (Bld) [#/Vol] 0.29 10*3/uL Normal <0.46 [place] Comment on above: Order Comment: Speci men Type: BLOOD SPECIMENOrdering Facility: [facility] Address: [address] [place] [address] Performed By: #### 5 7021-8 ####[facility] LABCLIA [id number] [place] [address] [place] Eosinophils/100 WBC (Bld) 3.9 % Normal [place] Comment on above: Order Comment: Speci men Type: BLOOD SPECIMENOrdering Facility: [facility] Address: [address] [place] [address] Performed By: #### 5 7021-8 ####[facility] LABCLIA [id number] [place] [address] [place] Erythrocyte distribution width (RBC) [Ratio] 12.1 % Normal 11.5-15.0 [place] Comment on above: Order Comment: Speci men Type: BLOOD SPECIMENOrdering Facility: [facility] Address: [address] [place] [address] Performed By: #### 5 7021-8 ####[facility] LABIA [id number] [place] [address] [place] Hematocrit (Bld) [Volume fraction] 43.5 % Normal 36.0-46.0 [place] Comment on above: Order Comment: Speci men Type: BLOOD SPECIMENOrdering Facility: [facility] Address: [address] [place] [address] Performed By: #### 5 7021-8 ####[facility] LABIA [id number] [place] [address] [place] Hemoglobin (Bld) [Mass/Vol] 14.9 g/dL Normal 11.5-15.5 [place] Comment on above: Order Comment: Speci men Type: BLOOD SPECIMENOrdering Facility: [facility] Address: [address] [place] [address] Performed By: #### 5 7021-8 ####[facility] LABIA [id number] [place] [address] [place] Immature granulocytes (Bld) [#/Vol] 0.03 10*3/uL Normal <0.10 [place] Comment on above: Order Comment: Speci men Type: BLOOD SPECIMENOrdering Facility: [facility] Address: [address] [place] [address] Performed By: #### 5 7021-8 ####[facility] LABIA [id number] [place] [address] [place] Immature granulocytes/100 WBC (Bld) 0.4 % Normal [place] Comment on above: Order Comment: Speci men Type: BLOOD SPECIMENOrdering Facility: [facility] Address: [address] [place] [address] Performed By: #### 5 7021-8 ####[facility] LABCLIA [id number] [place] [address] [place] Lymphocytes (Bld) [#/Vol] 1.71 10*3/uL Normal 1.00-4.00 [place] Comment on above: Order Comment: Speci men Type: BLOOD SPECIMENOrdering Facility: [facility] Address: [address] [place] [address] Performed By: #### 5 7021-8 ####[facility] LABCLIA [id number] [place] [address] [place] Lymphocytes/100 WBC (Bld) 23.2 % Normal [place] Comment on above: Order Comment: Speci men Type: BLOOD SPECIMENOrdering Facility: [facility] Address: [address] [place] [address] Performed By: #### 5 7021-8 ####[facility] LABCLIA [id number] [place] [address] [place] MCH (RBC) [Entitic mass] 34.1 pg High 26.0-34.0 [place] Comment on above: Order Comment: Speci men Type: BLOOD SPECIMENOrdering Facility: [facility] Address: [address] [place] [address] Performed By: #### 5 7021-8 ####[facility] LABCLIA [id number] [place] [address] [place] MCHC (RBC) [Mass/Vol] 34.3 g/dL Normal 30.5-36.0 [facility] Comment on above: Order Comment: Speci men Type: BLOOD SPECIMENOrdering Facility: [facility] Address: [address] [address] Performed By: #### 5 7021-8 ####[facility] LABIA [id number] [place] [address] [place] MCV (RBC) [Entitic vol] 99.5 fL Normal 80.0-100.0 [place] Comment on above: Order Comment: Speci men Type: BLOOD SPECIMENOrdering Facility: [facility] Address: [address] [address] Performed By: #### 5 7021-8 ####[facility] LABCLIA [id number] [place] [address] [place] Monocytes (Bld) [#/Vol] 0.57 10*3/uL Normal <0.87 [place] Comment on above: Order Comment: Speci men Type: BLOOD SPECIMENOrdering Facility: [facility] Address: [address] [address] Performed By: #### 5 7021-8 ####[facility] LABIA [id number] [place] [address] [place] Monocytes/100 WBC (Bld) 7.7 % Normal [place] Comment on above: Order Comment: Speci men Type: BLOOD SPECIMENOrdering Facility: [facility] Address: [address] [place], [place] [address] Performed By: #### 5 7021-8 ####[facility] LABIA [id number] [place] [address] [place] Neutrophils (Bld) [#/Vol] 4.73 10*3/uL Normal 1.45-7.50 [place] Comment on above: Order Comment: Speci men Type: BLOOD SPECIMENOrdering Facility: [facility] Address: [address] [place], [place] [address] Performed By: #### 5 7021-8 ####[facility] LABCLIA [id number] [place] [address] [place] Neutrophils/100 WBC (Bld) 64.3 % Normal [place] Comment on above: Order Comment: Speci men Type: BLOOD SPECIMENOrdering Facility: [facility] Address: [address] [place] [address] Performed By: #### 5 7021-8 ####[facility] LABCLIA [id number] [place] [address] [place] Nucleated RBC (Bld) [#/Vol] 10*3/uL Normal <0.01 [place] Comment on above: Order Comment: Speci men Type: BLOOD SPECIMENOrdering Facility: [facility] Address: [address] [place] [address] Performed By: #### 5 7021-8 ####[facility] LABIA [id number] [place] [address] [place] [facility] Nucleated RBC/100 WBC (Bld) [Ratio] 0.0 /100 WBC Normal [place] Comment on above: Order Comment: Speci men Type: BLOOD SPECIMENOrdering Facility: [facility] Address: [address] [place] [address] Performed By: #### 5 7021-8 ####[facility] LABIA [id number] [place] [address] [place] Platelet mean volume (Bld) [Entitic vol] 9.6 fL Normal 9.0-12.7 [place] Comment on above: Order Comment: Speci men Type: BLOOD SPECIMENOrdering Facility: [facility] Address: [address] [place] [address] Performed By: #### 5 7021-8 ####[facility] LABCLIA [id number] [address] [address] [place] Platelets (Bld) [#/Vol] 277 10*3/uL Normal 150-400 [place] Comment on above: Order Comment: Speci men Type: BLOOD SPECIMENOrdering Facility: [facility] Address: [address] [place] [address] Performed By: #### 5 7021-8 ####[facility] LABCLIA [id number] [place] [address] [place] RBC (Bld) [#/Vol] 4.37 10*6/uL Normal 3.90-5.20 [facility] Comment on above: Order Comment: Speci men Type: BLOOD SPECIMENOrdering Facility: [facility] Address: [address] [place] [address] Performed By: #### 5 7021-8 ####[facility] LABCLIA [id number] [place] [address] [place] WBC (Bld) [#/Vol] 7.37 10*3/uL Normal 3.70-11.00 [facility] Comment on above: Order Comment: Speci men Type: BLOOD SPECIMENOrdering Facility: [facility] Address: [address] [place] [address] Performed By: #### 5 7021-8 ####[facility] LABCLIA [id number] [place] [address] [place] Basophils (Bld) [#/Vol] 0.04 10*3/uL <0.11 k/uL [facility] Basophils/100 WBC (Bld) 0.5 % [facility] Differential cell count method Nom (Bld) Auto [facility] Eosinophils (Bld) [#/Vol] 0.29 10*3/uL <0.46 k/uL [facility] Eosinophils/100 WBC (Bld) 3.9 % [facility] Erythrocyte distribution width (RBC) [Ratio] 12.1 % 11.5 - 15.0 % [facility] Hematocrit (Bld) [Volume fraction] 43.5 % 36.0 - 46.0 % [facility] Hemoglobin (Bld) [Mass/Vol] 14.9 g/dL 11.5 - 15.5 g/dL [facility] Immature granulocytes (Bld) [#/Vol] 0.03 10*3/uL <0.10 k/uL [facility] Immature granulocytes/100 WBC (Bld) 0.4 % [facility] Lymphocytes (Bld) [#/Vol] 1.71 10*3/uL 1.00 - 4.00 k/uL [facility] Lymphocytes/100 WBC (Bld) 23.2 % [facility] MCH (RBC) [Entitic mass] 34.1 pg High 26.0 - 34.0 pg [facility] MCHC (RBC) [Mass/Vol] 34.3 g/dL 30.5 - 36.0 g/dL [facility] MCV (RBC) [Entitic vol] 99.5 fL 80.0 - 100.0 fL [facility] Monocytes (Bld) [#/Vol] 0.57 10*3/uL <0.87 k/uL [facility] Monocytes/100 WBC (Bld) 7.7 % [facility] Neutrophils (Bld) [#/Vol] 4.73 10*3/uL 1.45 - 7.50 k/uL [facility] Neutrophils/100 WBC (Bld) 64.3 % [facility] Nucleated RBC (Bld) [#/Vol] <0.01 k/uL [facility] Nucleated RBC/100 WBC (Bld) [Ratio] 0.0 /100 WBC [facility] Platelet mean volume (Bld) [Entitic vol] 9.6 fL 9.0 - 12.7 fL [facility] Platelets (Bld) [#/Vol] 277 10*3/uL 150 - 400 k/uL [facility] RBC (Bld) [#/Vol] 4.37 10*6/uL 3.90 - 5.2 0 m/uL [facility] WBC (Bld) [#/Vol] 7.37 10*3/uL 3.70 - 11. 00 k/uL [facility] CNOVon 07-07-2022 CNOV Office Visit ([facility] ) KAILA VASQUEZ ([id number]) 1980 F Date Time Provider Department 07/07/22 8:00 AM GLENROY SYED During your visit today, we recorded the following information about you: Pulse Blood pressure Weight Height 82/minute 134/88 112 kg 1.626 m Glenroy Syed APRN.REAL ESTATE CONSULTANT 07/07/2022 12:28 PM Signed [facility] Neurology New Patient Evaluation CHIEF COMPLAINT: Questionable [...] over a month. She has seen an tool repairer bench and was told she was having occular migraine by her mainframe developer. A couple times a month she gets [...] PVC (premature ventricular contraction) SVT (supraventricular tachycardia) ([facility]) Vitamin D deficiency No past surgical history on file. ALLERGIES Not on File Social History Tobacco Use Smoking status: Never Smokeless tobacco: Never (more content not included)... Normal [place] CNPNon 07-07-2022 CNPN Telephone ([facility]) KAILA VASQUEZ ([id number]) 1980 F Date Time Provider Department 07/07/22 GLENROY SYED NEVÍCTORFV During your visit today, we recorded the following information about you: Cinthya Salgado 07/07/2022 8:52 AM Signed Received medical records from [facility]. Uploaded to chart and forwarded for review. Kajal Gillespie RN 07/07/2022 9:14 AM Signed Noted. Provider notified. Allergies As of Date: 07/07/2022 (Not on File) Date Reviewed: 07/07/2022 Reviewed by: Elaine Bolaños Ma - Fully Assessed Reason for Visit: Received Outside Medical Records [[id number]] Prescriptions as of 07/19/2022 - metoprolol tartrate, short acting, (LOPRESSOR) 50 mg tablet metoprolol tartrate 50 mg tablet Facility-Administered Medications as of 07/19/2022 - perflutren lipid microspheres 1.3 mL in NaCl (PF) 0.9% 10 mL injection (DEFINITY) - sodium chloride 0.9 % (flush) 10 mL (BD POSIFLUSH) Problem List As Of Date: 07/07/2022 (None) Encounter Status:Closed by CINTHYA SALGADO on 07/19/22 Normal [facility] Centromere Ab IF Ql (S)on Centromere Ab Qn (S) <0.2 Normal <1.0 [facility] Comment on above: Order Comment: Speci men Type: BLOOD SPECIMENOrdering Facility: [facility] Address: [address] [place] [address] Result Comment: Anti -centromere antibody is used as in aid in diagnosis of systemic sclerosis. Clinical correlation is required. Test Methodology: Multiplex flow immunoassay. Performed By: #### 2 9374-6, 07856-8, 27756-5, 15150-0, 22513-0, ANAIFR, 43355-3, 20324-3, 77739-7, 63913-2 ####[facility] LABCLIA [id number] [place] [address] [place] CENTROMERE AB QUAL Negative Normal Negative [facility] Comment on above: Order Comment: Speci men Type: BLOOD SPECIMENOrdering Facility: [facility] Address: [address] [place] [address] Performed By: #### 2 9374-6, 75237-2, 93734-6, 29954-4, 66666-0, ANAIFR, 53100-7, 49095-0, 57785-6, 96064-5 ####[facility] LABIA [id number] [place] [address] [place] Chromatin Ab Qnon 07-07-2022 CHROMATIN AB QUAL Negative Normal Negative [facility] Comment on above: Order Comment: Speci men Type: BLOOD SPECIMENOrdering Facility: [facility] Address: [address] [place] [address] Performed By: #### 2 9374-6, 77325-5, 02337-7, 47466-3, 64127-8, ANAIFR, 09156-5, 71935-8, 43090-0, 58352-4 ####[facility] LABIA [id number] [place] [address] [place] Chromatin Ab SerPl-aCncon Chromatin Ab Qn <0.2 Normal <1.0 [place] Comment on above: Order Comment: Speci men Type: BLOOD SPECIMENOrdering Facility: [facility] Address: [address] [place] [address] Result Comment: Test Methodology: Multiplex flow immunoassay. Performed By: #### 2 9374-6, 55825-3, 39069-7, 03521-3, 76270-7, ANAIFR, 02791-9, 46296-8, 51175-9, 48347-8 ####[facility] LABCLIA [id number] [place] [address] [place] KAMRAN Jo1 Ab Ser-aCncon 2021 Radha-1 extractable nuclear Ab Qn (S) <0.2 Normal <1.0 [place] Comment on above: Order Comment: Speci men Type: BLOOD SPECIMENOrdering Facility: [facility] Address: [address] [place] [address] Performed By: #### 2 9374-6, 99413-3, 61975-4, 60916-4, 45243-7, ANAIFR, 61582-0, 32303-5, 37457-4, 00780-8 ####[facility] LABIA [id number] [place] [address] [place] KAMRAN FINISH [employer]PENTER Ab Ser-aCncon 2021 Ribonucleoprotein extractable nuclear Ab Qn (S) <0.2 Normal <1.0 [place] Comment on above: Order Comment: Speci men Type: BLOOD SPECIMENOrdering Facility: [facility] Address: [address] [place] [address] Performed By: #### 2 9374-6, 61670-6, 39006-3, 52624-8, 24826-3, ANAIFR, 92796-1, 90070-8, 14268-1, 83748-9 ####[facility] LABCLIA [id number] [place] [address] [place] KAMRAN SM IgG Ser-aCncon 2021 [place] extractable nuclear IgG Qn (S) <0.2 Normal <1.0 [place] Comment on above: Order Comment: Speci men Type: BLOOD SPECIMENOrdering Facility: [facility] Address: [address] [place] [address] Performed By: #### 2 9374-6, 11862-5, 79598-7, 40255-5, 08373-0, ANAIFR, 52166-6, 46884-8, 87613-9, 48499-6 ####[facility] [id number] [address] [place] SS-A Ab Ser-aCncon 07-07 Sjogrens syndrome-A extractable nuclear Ab Qn (S) 0.3 AI Normal <1.0 [place] Comment on above: Order Comment: Speci men Type: BLOOD SPECIMENOrdering Facility: [facility] Address: [address] [place] [address] Result Comment: Test Methodology: Multiplex flow immunoassay. Performed By: #### 2 9374-6, 62582-8, 63791-0, 25484-2, 34968-9, ANAIFR, 75402-6, 14784-4, 25373-5, 85275-4 ####[facility] LABIA [id number] [address] [place] KAMRAN SS-B Ab Ser-aCncon 07-07 Sjogrens syndrome-B extractable nuclear Ab Qn (S) <0.2 Normal <1.0 [place] Comment on above: Order Comment: Speci men Type: BLOOD SPECIMENOrdering Facility: [facility] Address: [address] [place] [address] Result Comment: Anti -SSB (anti-La) antibody is used as an aid in diagnosis of a variety of systemic autoimmune diseases, especially for Sjogren's syndrome and systemic lupus erythematosus. Clinical correlation is required. Test Methodology: Multiplex flow immunoassay. Performed By: #### 2 9374-6, 37513-4, 02339-3, 24999-8, 97574-8, ANAIFR, 04607-0, 22289-3, 68100-5, 77440-2 ####[facility] [id number] [place] [address] [place] Radha-1 extractable nuclear Ab Qn (S)on 07-07-2022 RADHA 1 ANTIBODY QUAL Negative Normal Negative [facility] Comment on above: Order Comment: Speci men Type: BLOOD SPECIMENOrdering Facility: [facility] Address: [address] [place] [address] Result Comment: Anti -RADHA-1 antibody is used as an aid in diagnosis of polymyositis and dermatomyositis especially with pulmonary involvement. A negative result cannot rule out polymyositis or dermatomyositis. Clinical correlation is required. Test Methodology: Multiplex flow immunoassay. Performed By: #### 2 9374-6, 38532-7, 83273-6, 51569-6, 68171-2, ANAIFR, 11054-8, 07409-9, 55354-2, 60094-2 ####[facility] [id number] [place] [address] [place] Ribonucleoprotein extractabl e nuclear Ab Qn (S)on 07-07-2022 ANTI-FINISH CARPENTER QUAL Negative Normal Negative [place] Comment on above: Order Comment: Speci betty Type: BLOOD SPECIMENOrdering Facility: [facility] Address: [address] [place] [address] Performed By: #### 2 9374-6, 97291-8, 28542-8, 05979-2, 64107-2, ANAIFR, 39143-9, 49009-2, 70191-9, 57868-5 ####[facility] [id number] [place] [address] [place] RIBOSOMAL FINISH CARPENTER QUAL Negative Normal Negative [facility] Comment on above: Order Comment: Speci men Type: BLOOD SPECIMENOrdering Facility: [facility] Address: [address] [place], [place] [id number] Result Comment: Anti -Ribosomal RNA (Ribosomal P) antibody is used as an aid in diagnosis of systemic autoimmune diseases especially systemic lupus erythematosus and mixed connective tissue disease. Cross-reactivity with Anti-osborne antibody is not uncommon. Clinical correlation is required. Test Methodology: Multiplex flow immunoassay. Performed By: #### 2 9374-6, 33820-3, 32279-6, 67436-9, 62032-5, ANAIFR, 19657-9, 81313-4, 20449-5, 87626-2 ####[facility] LABCLIA [id number] [address] [place] SCL-70 extractable nuclear I gG IA Qn (S)on 07-07-2022 SCLERODERMA AB QUAL Negative Normal Negative [facility] Comment on above: Order Comment: Speci men Type: BLOOD SPECIMENOrdering Facility: [facility] Address: [address] [place] [address] Performed By: #### 2 9374-6, 04693-2, 66622-4, 85231-5, 43017-2, ANAIFR, 13954-6, 72238-6, 64288-3, 08058-5 ####[facility] LABIA [id number] [address] [place] SCLERODERMA IGG AB <0.2 Normal <1.0 [facility] Comment on above: Order Comment: Speci men Type: BLOOD SPECIMENOrdering Facility: [facility] Address: [address] [place] [address] Result Comment: Scl- 70/Scleroderma antibody test is used as an aid in diagnosis of systemic sclerosis especially the diffuse cutaneous form. A negative result cannot rule out systemic sclerosis. The final interpretation should consider clinical picture and other test results such as anti-centromere antibody. Test Methodology: Multiplex flow immunoassay. Performed By: #### 2 9374-6, 41315-8, 26120-5, 93915-5, 40878-9, ANAIFR, 88688-3, 90005-2, 93548-9, 79067-1 ####[facility] LABCLIA [id number] [address] [place] Sjogrens syndrome-A extracta ble nuclear Ab Qn (S)on 07-07-2022 SSA ANTIBODY QUAL Negative Normal Negative [facility] Comment on above: Order Comment: Speci men Type: BLOOD SPECIMENOrdering Facility: [facility] Address: [address] [place] [address] Performed By: #### 2 9374-6, 17125-0, 67116-1, 18965-2, 23539-5, ANAIFR, 16166-3, 38527-5, 16415-2, 18772-0 ####[facility] LABIA [id number] [address] [place] Sjogrens syndrome-B extracta ble nuclear Ab Qn (S)on 07-07-2022 SSB ANTIBODY QUAL Negative Normal Negative [facility] Comment on above: Order Comment: Speci men Type: BLOOD SPECIMENOrdering Facility: [facility] Address: [address] [place] [address] Performed By: #### 2 9374-6, 32074-2, 71264-6, 80844-1, 67540-5, ANAIFR, 08621-5, 10600-1, 42585-9, 75275-1 ####[facility] [id number] [address] [place] Osborne extractable nuclear Ig G Qn (S)on 07-07-2022 SM ANTIBODY QUAL Negative Normal Negative [facility] Comment on above: Order Comment: Speci men Type: BLOOD SPECIMENOrdering Facility: [facility] Address: [address] [place] [address] Result Comment: Anti -Sm (Osborne) antibody is used as an aid in diagnosis of systemic lupus erythematosus and its presence is associated with renal disease. A negative result cannot rule out systemic lupus erythematosus. Clinical correlation is required. Test Methodology: Multiplex flow immunoassay. Performed By: #### 2 9374-6, 51986-3, 24582-8, 02666-2, 14471-8, ANAIFR, 62573-9, 20778-9, 40944-0, 57394-2 ####[facility] [id number] [place] [address] [place] TSH BLDon 07-07-2022 TSH Qn 0.824 m[IU]/L 0.270 - 4.200 mIU/L [facility] TSH SerPl-aCncon 07-07-2022 TSH Qn 0.824 m[IU]/L Normal 0.270-4.200 [place] Comment on above: Order Comment: Speci men Type: BLOOD SPECIMENOrdering Facility: [facility] Address: [address] [place], [place] [id number] Result Comment: If t he patient is , TSH reference range varies by gestational period: First Trimester (weeks 9-12): 0.180-2.990 mIU/L Second Trimester: 0.110-3.980 mIU/L Third Trimester: 0.480-4.710 mIU/L Eliezer Bangura et al. A Practical Approach for the Verifications and Determination of Site- and Trimester-Specific Reference Intervals for Thyroid Function tests in . Thyroid, 2019:29:3:412-420. Rob Forrest, et al. 2017 Guidelines of the [place] Thyroid Association for the Diagnosis and Management of Thyroid Disease during and the . Thyroid, 2017:27:3:315-389. Performed By: #### 3 016-3, 2132-9 ####[facility] [id number] [place] [id number] [place] VITAMIN B12 BLOODon 07-07-20 22 Cobalamin (Vitamin B12) [Mass/Vol] 618 pg/mL 232 - 1,245 pg/mL [facility] Vit B12 SerPl-mCncon 022 Cobalamin (Vitamin B12) [Mass/Vol] 618 pg/mL Normal 232-1245 [place] Comment on above: Order Comment: Speci men Type: BLOOD SPECIMENOrdering Facility: [facility] Address: [address] [place] [address] Performed By: #### 3 016-3, 2132-9 ####[facility] LABCLIA [id number] [place] [address] [place] dsDNA Ab Ser IA-aCncon 07-07 DNA double strand Ab IA Qn (S) <12 Normal <30 [place] Comment on above: Order Comment: Speci men Type: BLOOD SPECIMENOrdering Facility: [facility] Address: [address] [place] [address] Result Comment: Nega tive for ds DNA Antibodies. <30 IU/mL Negative 30-74 IU/mL Equivocal >74 IU/mL Positive Performed By: #### 2 9374-6, 01026-1, 38050-8, 31531-5, 73126-9, ANAIFR, 65508-6, 48167-0, 90370-3, 95860-2 ####[facility] LABCLIA [id number] [place] [address] [place] HLA B 27on 04-26-2022 HLA-B27 Negative Normal [facility] Comment on above: Result Comment: HLA- B*27 Negative B27 allele interpretation for all loci based on IMGT/HLA database version 3.44 This test was developed and its performance characteristics determined by [facility]. It has not been cleared or approved by the Food and Drug Administration. [facility] CLIA ID Number [id number] . This test was performed using PCR (Polymerase Chain Reaction)/SSOP (Sequence Specific Oligonucleotide Probes) technique. SBT (Sequence Based Typing) and/or SSP (Sequence Specific Primers) may be used as supplemental methods when necessary. Please contact [facility] Customer Service at if you have any questions. . Director of [facility] Laboratory Dr Abdiaziz Shook, PhD Performed By: #### C VDAGA #### [facility] [address] [address] [address] Christos Fallon 25-HYDROXY VIT D (D2+D3 [facility] ) LC/MS-MSon 04-23-2022 25-Hydroxy, Vitamin D 26 ng/mL Critically low [facility] Comment on above: Result Comment: Refe rence Range: All Ages: Target levels 30 - 100 Performed By: #### C MP, TSH, HSTROPN #### [facility] [address] [place] [address] Dr. Christos Fallon 25-Hydroxy, Vitamin D-2 <1.[address] [facility] Comment on above: Result Comment: This test was developed and its performance characteristics determined by [facility]. It has not been cleared or approved by the Food and Drug Administration. Performed By: #### C MP, TSH, HSTROPN #### [facility] [address] [place] [address] Dr. Christos Fallon 25-Hydroxy, Vitamin D-3 26 ng/mL Normal [facility] Comment on above: Result Comment: This test was developed and its performance characteristics determined by [facility]. It has not been cleared or approved by the Food and Drug Administration. Performed By: #### C MP, TSH, HSTROPN #### [facility] [address] [place] [address] Dr. Christos Fallon REVERSE T3on 04-20-2022 Reverse T3, Serum 11.2 ng/dL Normal 9.2-24.1 [facility] Comment on above: Result Comment: This test was developed and its performance characteristics determined by [facility]. It has not been cleared or approved by the Food and Drug Administration. Performed By: #### C VDAGA #### [facility] [address] [place] [address] Dr. Christos Fallon THYROID ANTIBODIESon 022 Thyroglobulin Antibody <1.0 Normal 0.0-0.[address] [facility] Comment on above: Result Comment: Thyr oglobulin Antibody measured by [employer] Methodology Performed By: #### C VDAGA #### [facility] [address] [place] [address] Dr. Christos Fallon Thyroid Peroxidase (TPO) Ab 11 IU/mL Normal 0-34 [facility] Comment on above: Performed By: #### C VDAGA #### [facility] [address] [place] [address] Dr. Christos Fallon ANTISTREPTOLYSIN O AB (ASO)o n 04-16-2022 Antistreptolysin O Ab 21.8 IU/mL Normal 0.0-200.[address] [facility] Comment on above: Performed By: #### C MP, TSH, HSTROPN #### [facility] [address] [place] [address] Dr. Christos Fallon T3, TOTAL (TRIIODOTHYRONINE) on 04-16-2022 T3, TOTAL 115 ng/dL Normal 71-[address] [facility] Comment on above: Performed By: #### C MP, TSH, HSTROPN #### [facility] [address] [place] [address] Dr. Christos Fallon FREE T3on 04-14-2022 FREE T3 2.46 pg/mlL Normal 2.18-3.[address] [facility] Comment on above: Performed By: #### C MP, TSH, HSTROPN #### [facility] [address] [place] [address] Dr. Christos Fallon FREE T4on 04-14-2022 Free T4 [Mass/Vol] 0.88 ng/dL Normal 0.76-1.46 [facility] Comment on above: Performed By: #### C VDAGA #### [facility] [address] [place] [address] Dr. Christos Fallon TSHon 04-14-2022 TSH 1.027 uIU/mL Normal 0.358-3.740 [facility] Comment on above: Performed By: #### C MP, TSH, HSTROPN #### [facility] [address] [place] [address] Dr. Christos Fallon CBC AUTO DIFFon 03-22-2022 BASO # 0.1 103/ul Normal 0.0-0.[address] [facility] Comment on above: Performed By: #### C MP, TSH, HSTROPN #### [facility] [address] [place] [address] Dr. Christos Fallon Basophils/100 WBC (Bld) 0.7 % Normal 0.2-2.[address] [facility] Comment on above: Performed By: #### C MP, TSH, HSTROPN #### [facility] [address] [place] [address] Dr. Christos Fallon EO # 0.3 103/ul Normal 0.0-0.[address] [facility] Comment on above: Performed By: #### C MP, TSH, HSTROPN #### [facility] [address] [place] [address] Dr. Christos Fallon Eosinophils/100 WBC (Bld) 3.4 % Normal 0.9-7.[address] [facility] Comment on above: Performed By: #### C MP, TSH, HSTROPN #### [facility] [address] [place] [address] Dr. Christos Fallon Erythrocyte distribution width (RBC) [Ratio] 12.5 % Normal 11.0-15.[address] [facility] Comment on above: Performed By: #### C MP, TSH, HSTROPN #### [facility] [address] [place] [address] Dr. Christos Fallon Hematocrit (Bld) [Volume fraction] 41.3 % Normal 36.0-48.[address] [facility] Comment on above: Performed By: #### C MP, TSH, HSTROPN #### [facility] [address] [place] [address] Dr. Christos Fallon Hemoglobin (Bld) [Mass/Vol] 14.2 g/dL Normal 12.0-16.[address] [facility] Comment on above: Performed By: #### C MP, TSH, HSTROPN #### [facility] [address] [place] [address] Dr. Christos Fallon IG # 0.03 10e3/ul Normal 0.00-0.03 [facility] Comment on above: Performed By: #### C MP, TSH, HSTROPN #### [facility] [address] [place] [address] Dr. Christos Fallon IG % 0.4 % Normal 0.0-0.[address] [facility] Comment on above: Performed By: #### C MP, TSH, HSTROPN #### [facility] [address] [place] [address] Dr. Christos Fallon LYMPH # 2.3 103/ul Normal 1.2-3.8 [facility] Comment on above: Performed By: #### C MP, TSH, HSTROPN #### [facility] [address] [place] [address] Dr. Christos Fallon Lymphocytes/100 WBC (Bld) 31.3 % Normal 20.5-60.[address] [facility] Comment on above: Performed By: #### C MP, TSH, HSTROPN #### [facility] [address] [place] [address] Dr. Christos Fallon MANUAL DIFF REQ NO Normal [facility] Comment on above: Performed By: #### C MP, TSH, HSTROPN #### [facility] [address] [place] [address] Dr. Christos Fallon MCH (RBC) [Entitic mass] 34.8 pg Critically high 26.7-34.[address] [facility] Comment on above: Performed By: #### C MP, TSH, HSTROPN #### [facility] [address] [place] [address] Dr. Christos Fallon MCHC (RBC) [Mass/Vol] 34.4 g/dL Normal 29.9-35.[address] [facility] Comment on above: Performed By: #### C MP, TSH, HSTROPN #### [facility] [address] [place] [address] Dr. Christos Fallon MCV (RBC) [Entitic vol] 101.2 fL Critically high 81.0-99.[address] [facility] Comment on above: Performed By: #### C MP, TSH, HSTROPN #### [facility] [address] [place] [address] Dr. Christos Fallon MONO # 0.9 103/ul Critically high 0.3-0.8 [facility] Comment on above: Performed By: #### C MP, TSH, HSTROPN #### [facility] [address] [place] [address] Dr. Christos Fallon Monocytes/100 WBC (Bld) 12.0 % Normal 1.7-12.0 [facility] Comment on above: Performed By: #### C MP, TSH, HSTROPN #### [facility] [address] [address] [address] Christos Fallon NEUT # 3.9 103/ul Normal 1.4-6.[address] [facility] Comment on above: Performed By: #### C MP, TSH, HSTROPN #### [facility] [address] [address] [address] Christos Fallon Neutrophils/100 WBC (Bld) 52.2 % Normal 43.0-75.0 [facility] Comment on above: Performed By: #### C MP, TSH, HSTROPN #### [facility] [address] [place] [address] Dr. Christos Fallon Platelet mean volume (Bld) [Entitic vol] 9.7 fL Normal 9.5-13.[address] [facility] Comment on above: Performed By: #### C MP, TSH, HSTROPN #### [facility] [address] [place] [address] Dr. Christos Fallon PLT 296 103/ul Normal 150-450 [facility] Comment on above: Performed By: #### C MP, TSH, HSTROPN #### [facility] [address] [place] [address] Dr. Christos Fallon RBC 4.08 106/ul Critically low 4.20-5.40 [facility] Comment on above: Performed By: #### C MP, TSH, HSTROPN #### [facility] [address] [place] [address] Dr. Christos Fallon WBC 7.4 103/ul Normal 4.0-11.0 [facility] Comment on above: Performed By: #### C MP, TSH, HSTROPN #### [facility] [address] [place] [address] HEAD WO CONon [...] PAL WETZEL Date: 2022-03-22 17:41 Normal [facility] ER URINE PROFILEon 2 Bilirubin Ql (U) Negative Normal NEGATIVE [facility] Comment on above: Performed By: #### C VDAGA #### [facility] [address] [place] [address] Dr. Christos Fallon Clarity (U) CLOUDY Abnormal CLEAR [facility] Comment on above: Performed By: #### C VDAGA #### [facility] [address] [place] [address] Dr. Christos Fallon Color (U) LT. YELLOW Normal YELLOW [facility] Comment on above: Performed By: #### C VDAGA #### [facility] [address] [place] [address] Dr. Christos Fallon ERUAHD A micrscopic examination will be performed if indicated. Normal [facility] Comment on above: Performed By: #### C VDAGA #### [facility] [address] [place] [address] Dr. Christos Fallon Glucose Ql (U) Negative Normal NEGATIVE [facility] Comment on above: Performed By: #### C VDAGA #### [facility] [address] [place] [address] Dr. Christos Fallon Hemoglobin Ql (U) Negative Normal NEGATIVE [facility] Comment on above: Performed By: #### C VDAGA #### [facility] [address] [place] [address] Dr. Christos Fallon Ketones Ql (U) Negative Normal NEGATIVE [facility] Comment on above: Performed By: #### C VDAGA #### [facility] [address] [place] [address] Dr. Christos Fallon LEUKOCYTES Negative Normal NEGATIVE [facility] Comment on above: Performed By: #### C VDAGA #### [facility] [address] [address] [address] Christos Fallon Nitrite Ql (U) Negative Normal NEGATIVE [facility] Comment on above: Performed By: #### C VDAGA #### [facility] [address] [place] [address] Dr. Christos Fallon pH (U) 6.0 [pH] Normal 5-[address] [facility] Comment on above: Performed By: #### C VDAGA #### [facility] [address] [place] [address] Dr. Christos Fallon SPEC GRAVITY 1.010 Normal 1.005-<=1.[address] [facility] Comment on above: Performed By: #### C VDAGA #### [facility] [address] [place] [address] Dr. Christos Fallon UA PROTEIN Negative Normal NEGATIVE/ TRACE [facility] Comment on above: Performed By: #### C VDAGA #### [facility] [address] [place] [address] Dr. Christos Fallon UR MICRO IND NOT INDICATED Normal [facility] Comment on above: Performed By: #### C VDAGA #### [facility] [address] [place] [address] Dr. Christos Fallon Urobilinogen Qn (U) 0.2 {Peyman'U}/dL Normal 0.2 - 1. [address] [facility] Comment on above: Performed By: #### C VDAGA #### [facility] [address] [place] [address] Dr. Christos Fallon PROF 14(COMP METB)on 022 Albumin [Mass/Vol] 3.6 g/dL Normal 3.4-5.0 [facility] Comment on above: Performed By: #### C MP, HSTROPN, TSH #### [facility] [address] [address] [address] Christos Fallon Albumin/Globulin [Mass ratio] 0.9 {ratio} Normal [facility] Comment on above: Performed By: #### C MP, HSTROPN, TSH #### [facility] [address] [place] [address] Dr. Christos Fallon ALP [Catalytic activity/Vol] 83 U/L Normal 46-[address] [facility] Comment on above: Performed By: #### C MP, HSTROPN, TSH #### [facility] [address] [place] [address] Dr. Christos Fallon ALT [Catalytic activity/Vol] 32 U/L Normal 14-[address] [facility] Comment on above: Performed By: #### C MP, HSTROPN, TSH #### [facility] [address] [address] [address] Christos Fallon Anion gap [Moles/Vol] 15.4 mmol/L Normal [facility] Comment on above: Performed By: #### C MP, HSTROPN, TSH #### [facility] [address] [address] [address] Christos Fallon AST [Catalytic activity/Vol] 15 U/L Normal 15-[address] [facility] Comment on above: Performed By: #### C MP, HSTROPN, TSH #### [facility] [address] [address] [address] Christos Fallon Bilirubin [Mass/Vol] 0.3 mg/dL Normal 0.2-1.[address] [facility] Comment on above: Performed By: #### C MP, HSTROPN, TSH #### [facility] [address] [address] [address] Christos Fallon Calcium [Mass/Vol] 8.9 mg/dL Normal 8.5-10.1 [facility] Comment on above: Performed By: #### C MP, HSTROPN, TSH #### [facility] [address] [address] [address] Christos Fallon Chloride [Moles/Vol] 102 mmol/L Normal 98-107 [facility] Comment on above: Performed By: #### C MP, HSTROPN, TSH #### [facility] [address] [address] [address] Christos Fallon CO2 [Moles/Vol] 22.7 mmol/L Normal 21.0-32.0 [facility] Comment on above: Performed By: #### C RAY, HSTROPN, TSH #### [facility] [address] [place] [address] Dr. Christos Fallon Creatinine [Mass/Vol] 0.97 mg/dL Normal 0.55-1.02 [facility] Comment on above: Performed By: #### C MP, HSTROPN, TSH #### [facility] [address] [place] [address] Dr. Christos Fallon EGFR-AF MICRONESIAN >60 Normal >=60 [facility] Comment on above: Performed By: #### C RAY, HSTROPN, TSH #### [facility] [address] [place] [address] Dr. Christos Fallon EGFR-NON AF MICRONESIAN >60 Normal >=60 [facility] Comment on above: Performed By: #### C MP, HSTROPN, TSH #### [facility] [address] [place] [address] Dr. Christos Fallon Globulin (S) [Mass/Vol] 3.8 g/dL Normal [facility] Comment on above: Performed By: #### C MP, HSTROPN, TSH #### [facility] [address] [place] [address] Dr. Christos Fallon Glucose [Mass/Vol] 104 mg/dL Normal 74-106 [facility] Comment on above: Performed By: #### C MP, HSTROPN, TSH #### [facility] [address] [place] [address] Dr. Christos Fallon Potassium [Moles/Vol] 4.1 mmol/L Normal 3.5-5.[address] [facility] Comment on above: Performed By: #### C MP, HSTROPN, TSH #### [facility] [address] [place] [address] Dr. Christos Fallon Protein [Mass/Vol] 7.4 g/dL Normal 6.4-8.2 [facility] Comment on above: Performed By: #### C MP, HSTROPN, TSH #### [facility] [address] [place] [address] Dr. Christos Fallon Sodium [Moles/Vol] 136 mmol/L Normal 136-145 [facility] Comment on above: Performed By: #### C MP, HSTROPN, TSH #### [facility] [address] [place] [address] Dr. Christos Fallon Urea nitrogen [Mass/Vol] 17.0 mg/dL Normal 7.0-18.[address] [facility] Comment on above: Performed By: #### C MP, HSTROPN, TSH #### [facility] [address] [place] [address] Dr. Christos Fallon Urea nitrogen/Creatinine [Mass ratio] 17.5 mg/mg Normal [facility] Comment on above: Performed By: #### C MP, HSTROPN, TSH #### [facility] [address] [place] [address] Dr. Christos Fallon TROPONIN, HIGH SENSITIVITYon 03-22-2022 HSTROP <4.0 Normal 4.0-51.3 [facility] Comment on above: Result Comment: CUT- OFF POINTS HAVE BEEN ESTABLISHED BASED ON THE FOURTH UNIVERSAL DEFINITIONS OF MYOCARDIAL INFARCTION. THE UPPER REFERENCE LIMIT (URL) OF TROPONIN, DEFINED THE 99TH PERCENTILE OF cTnI DISTRIBUTION IN A REFERENCE POPULATION, HAS BEEN CONFIRMED THE DECISION THRESHOLD FOR [place] DIAGNOSIS. Performed By: #### C MP, HSTROPN, TSH #### [facility] [address] [place] [address] Dr. Christos Fallon TSHon 03-22-2022 TSH 0.854 uIU/mL Normal 0.358-3.740 [facility] Comment on above: Performed By: #### C MP, HSTROPN, TSH #### [facility] [address] [address] [address] Christos Fallon ASYMPTOMATIC COVID-19 ANTIGE Non 03-03-2022 EUA Statement SEE BELOW Normal [facility] Comment on above: Result Comment: This [...] sooner. Performed By: #### C VDAGA #### [facility] [address] [place] [address] Dr. Christos Fallon SARS-CoV-2 (COVID-19) RNA LEROY+probe Ql (Unsp spec) Positive Critically abnormal NEGATIVE [facility] Comment on above: Result Comment: SARS -CoV-2 antigen present; does not rule out coinfection with other pathogens. Performed By: #### C VDAGA #### [facility] [address] [place] [address] Dr. Christos Fallon [facility]-19 [facility]06 SARS-CoV-2 (COVID-19) RNA LEROY+probe Ql (Unsp spec) Detected Critically abnormal NOT DETECTED [facility] Comment on above: Result Comment: This test is not yet approved or cleared by the [place] FDA. When there are no FDA-approved or cleared tests available, and other criteria are met, FDA can make tests available under an emergency access mechanism called an Emergency Use Authorization (EUA). The EUA for this test is supported by the Jam[place] Operator of Health and Human Service's declaration that [...] By: #### C MP, TSH, HSTROPN #### [facility] [address] [place] [address] Dr. Christos Fallon CRPon 11-25-2021 CRP [Mass/Vol] mg/L Normal <=1.0 [facility] Comment on above: Performed By: #### C MP, TSH, HSTROPN #### [facility] [address] [place] [address] Dr. Christos Fallon VIT B12 AND FOLATEon 022 Cobalamin (Vitamin B12) [Mass/Vol] 329.0 pg/mL Normal 239.0-931.[address] [facility] Comment on above: Performed By: #### C MP, TSH, HSTROPN #### [facility] [address] [place] [address] Dr. Christos Fallon FOLATE 8.50 ng/mL Normal >=2.76 [facility] Comment on above: Performed By: #### C MP, TSH, HSTROPN #### [facility] [address] [place] [address] Dr. Christos Fallon CBC AUTO DIFFon 11-19-2021 BASO # 0.1 103/ul Normal 0.0-0.1 [facility] Comment on above: Performed By: #### C BC #### [facility] [address] [place] [address] Dr. Christos Fallon Basophils/100 WBC (Bld) 0.8 % Normal 0.2-2.[address] [facility] Comment on above: Performed By: #### C BC #### [facility] [address] [place] [address] Dr. Christos Fallon EO # 0.3 103/ul Normal 0.0-0.[address] [facility] Comment on above: Performed By: #### C BC #### [facility] [address] [place] [address] Dr. Christos Fallon Eosinophils/100 WBC (Bld) 4.8 % Normal 0.9-7.[address] [facility] Comment on above: Performed By: #### C BC #### [facility] [address] [place] [address] Dr. Christos Fallon Erythrocyte distribution width (RBC) [Ratio] 12.2 % Normal 11.0-15.[address] [facility] Comment on above: Performed By: #### C BC #### [facility] [address] [place] [address] Dr. Christos Fallon Hematocrit (Bld) [Volume fraction] 41.9 % Normal 36.0-48.[address] [facility] Comment on above: Performed By: #### C BC #### [facility] [address] [place] [address] Dr. Christos Fallon Hemoglobin (Bld) [Mass/Vol] 14.2 g/dL Normal 12.0-16.[address] [facility] Comment on above: Performed By: #### C BC #### [facility] [address] [place] [address] Dr. Christos Fallon IG # 0.03 10e3/ul Normal 0.00-0.[address] [facility] Comment on above: Performed By: #### C BC #### [facility] [address] [place] [address] Dr. Christos Fallon IG % 0.5 % Normal 0.0-0.[address] [facility] Comment on above: Performed By: #### C BC #### [facility] [address] [place] [address] Dr. Christos Fallon LYMPH # 1.5 103/ul Normal 1.2-3.[address] [facility] Comment on above: Performed By: #### C BC #### [facility] [address] [place] [address] Dr. Christos Fallon Lymphocytes/100 WBC (Bld) 24.6 % Normal 20.5-60.[address] [facility] Comment on above: Performed By: #### C BC #### [facility] [address] [place] [address] Dr. Christos Fallon MANUAL DIFF REQ NO Normal [facility] Comment on above: Performed By: #### C BC #### [facility] [address] [place] [address] Dr. Christos Fallon MCH (RBC) [Entitic mass] 34.3 pg Critically high 26.7-34.[address] [facility] Comment on above: Performed By: #### C BC #### [facility] [address] [place] [address] Dr. Christos Fallon MCHC (RBC) [Mass/Vol] 33.9 g/dL Normal 29.9-35.[address] [facility] Comment on above: Performed By: #### C BC #### [facility] [address] [place] [address] Dr. Christos Fallon MCV (RBC) [Entitic vol] 101.2 fL Critically high 81.0-99.[address] [facility] Comment on above: Performed By: #### C BC #### [facility] [address] [place] [address] Dr. Christos Fallon MONO # 0.5 103/ul Normal 0.3-0.[address] [facility] Comment on above: Performed By: #### C BC #### [facility] [address] [place] [address] Dr. Christos Fallon Monocytes/100 WBC (Bld) 7.2 % Normal 1.7-12.[address] [facility] Comment on above: Performed By: #### C BC #### [facility] [address] [place] [address] Dr. Christos Fallon NEUT # 3.9 103/ul Normal 1.4-6.5 [facility] Comment on above: Performed By: #### C BC #### [facility] [address] [place] [address] Dr. Christos Fallon Neutrophils/100 WBC (Bld) 62.1 % Normal 43.0-75.0 [facility] Comment on above: Performed By: #### C BC #### [facility] [address] [address] [address] Christos Fallon Platelet mean volume (Bld) [Entitic vol] 9.1 fL Critically low 9.5-13.[address] [facility] Comment on above: Performed By: #### C BC #### [facility] [address] [address] [address] Christos Fallon PLT 301 103/ul Normal 150-[address] [facility] Comment on above: Performed By: #### C BC #### [facility] [address] [address] [address] Christos Fallon RBC 4.14 106/ul Critically low 4.20-5.40 [facility] Comment on above: Performed By: #### C BC #### [facility] [address] [place] [address] Dr. Christos Fallon WBC 6.3 103/ul Normal 4.0-11.[address] [facility] Comment on above: Performed By: #### C BC #### [facility] [address] [place] [address] Dr. Christos Fallon FREE T3on 11-19-2021 FREE T3 2.72 pg/mlL Critically low 2.77-5.27 [facility] Comment on above: Performed By: #### C MP, TSH, HSTROPN #### [facility] [address] [place] [address] Dr. Christos Fallon FREE T4on 11-19-2021 Free T4 [Mass/Vol] 1.09 ng/dL Normal 0.78-2.19 [facility] Comment on above: Performed By: #### C MP, TSH, HSTROPN #### [facility] [address] [place] [address] Dr. Christos Fallon GLYCOHEMOGLOBIN A1Con 2021 ADA RECOMMENDATION ADA THERAPEUTIC TARG ET 6.0 - 7.0 ACTION SUGGESTED > 7.[address] [facility] Comment on above: Performed By: #### A 1C #### [facility] [address] [place] [address] Dr. Christos Fallon Glucose [Mass/Vol] 105 mg/dL Normal [facility] Comment on above: Performed By: #### A 1C #### [facility] [address] [place] [address] Dr. Christos Fallon HbA1c (Bld) [Mass fraction] 5.3 % Normal <=6.[address] [facility] Comment on above: Performed By: #### A 1C #### [facility] [address] [place] [address] Dr. Christos Fallon LIPID PROFILEon 11-19-2021 CHOL-HDL RATIO NORM SEE BELOW Normal [facility] Comment on above: Result Comment: 3.3 - 4.4 LOW RISK 4.4 - 7.1 AVERAGE RISK 7.1 - 11.0 MODERATE RISK >11.0 HIGH RISK Performed By: #### C MP, TSH, HSTROPN #### [facility] [address] [place] [address] Dr. Christos Fallon Cholesterol [Mass/Vol] 232 mg/dL Critically high <=[address] [facility] Comment on above: Performed By: #### C MP, TSH, HSTROPN #### [facility] [address] [place] [address] Dr. Christos Fallon Cholesterol in HDL [Mass/Vol] 60 mg/dL Normal 40-[address] [facility] Comment on above: Performed By: #### C MP, TSH, HSTROPN #### [facility] [address] [place] [address] Dr. Christos Fallon Cholesterol in LDL [Mass/Vol] 134.6 mg/dL Normal [facility] Comment on above: Performed By: #### C MP, TSH, HSTROPN #### [facility] [address] [place] [address] Dr. Christos Fallon Cholesterol.total/Cho lesterol in HDL [Mass ratio] 3.9 {ratio} Normal [facility] Comment on above: Performed By: #### C MP, TSH, HSTROPN #### [facility] [address] [place] [address] Dr. Christos Fallon HDL NORMAL > or = 60 mg/dl - LO W CARDIOVASCULAR RISK <40 mg/dl - HIGH CARDIOVASCULAR RISK Normal [facility] Comment on above: Performed By: #### C MP, TSH, HSTROPN #### [facility] [address] [address] [address] Christos Fallon LDL CALC NORMAL SEE BELOW Normal [facility] Comment on above: Result Comment: <100 mg/dl OPTIMAL 100 - 129 mg/dl NEAR OR ABOVE OPTIMAL 130 - 159 mg/dl BORDERLINE HIGH 160 - 189 mg/dl HIGH >190 mg/dl VERY HIGH Performed By: #### C MP, TSH, HSTROPN #### [facility] [address] [address] [address] Christos Fallon Triglyceride [Mass/Vol] 187 mg/dL Critically high <=[address] [facility] Comment on above: Performed By: #### C MP, TSH, HSTROPN #### [facility] [address] [address] [address] Christos Fallon VLDL CALC 37.4 mg/dL Normal [facility] Comment on above: Performed By: #### C MP, TSH, HSTROPN #### [facility] [address] [address] [address] Christos Fallon PROF 14(COMP METB)on 022 Albumin [Mass/Vol] 3.8 g/dL Normal 3.4-5.0 [facility] Comment on above: Performed By: #### C MP, TSH, HSTROPN #### [facility] [address] [address] [address] Christos Fallon Albumin/Globulin [Mass ratio] 1.1 {ratio} Normal [facility] Comment on above: Performed By: #### C MP, TSH, HSTROPN #### [facility] [address] [address] [address] Christos Fallon ALP [Catalytic activity/Vol] 77 U/L Normal 46-[address] [facility] Comment on above: Performed By: #### C MP, TSH, HSTROPN #### [facility] [address] [place] [address] Dr. Christos Fallon ALT [Catalytic activity/Vol] 34 U/L Normal 14-[address] [facility] Comment on above: Performed By: #### C MP, TSH, HSTROPN #### [facility] [address] [address] [address] Christos Fallon Anion gap [Moles/Vol] 11.5 mmol/L Normal [facility] Comment on above: Performed By: #### C MP, TSH, HSTROPN #### [facility] [address] [address] [address] Christos Fallon AST [Catalytic activity/Vol] 21 U/L Normal 15-[address] [facility] Comment on above: Performed By: #### C MP, TSH, HSTROPN #### [facility] [address] [address] [address] Christos Fallon Bilirubin [Mass/Vol] 0.7 mg/dL Normal 0.2-1.3 [facility] Comment on above: Performed By: #### C MP, TSH, HSTROPN #### [facility] [address] [address] [address] Christos Fallon Calcium [Mass/Vol] 8.8 mg/dL Normal 8.5-10.1 [facility] Comment on above: Performed By: #### C MP, TSH, HSTROPN #### [facility] [address] [address] [address] Christos Fallon Chloride [Moles/Vol] 104 mmol/L Normal 98-107 [facility] Comment on above: Performed By: #### C MP, TSH, HSTROPN #### [facility] [address] [address] [address] Christos Fallon CO2 [Moles/Vol] 28.6 mmol/L Normal 22.0-30.0 [facility] Comment on above: Performed By: #### C MP, TSH, HSTROPN #### [facility] [address] [address] [address] Christos Fallon Creatinine [Mass/Vol] 0.88 mg/dL Normal 0.52-1.[address] [facility] Comment on above: Performed By: #### C MP, TSH, HSTROPN #### [facility] [address] [place] [address] Dr. Christos Fallon EGFR-AF MICRONESIAN >60 Normal >=60 [facility] Comment on above: Performed By: #### C MP, TSH, HSTROPN #### [facility] [address] [place] [address] Dr. Christos Fallon EGFR-NON AF MICRONESIAN >60 Normal >=[address] [facility] Comment on above: Performed By: #### C MP, TSH, HSTROPN #### [facility] [address] [place] [address] Dr. Christos Fallon Globulin (S) [Mass/Vol] 3.5 g/dL Normal [facility] Comment on above: Performed By: #### C MP, TSH, HSTROPN #### [facility] [address] [place] [address] Dr. Christos Fallon Glucose [Mass/Vol] 101 mg/dL Normal 74-106 [facility] Comment on above: Performed By: #### C MP, TSH, HSTROPN #### [facility] [address] [place] [address] Dr. Christos Fallon Potassium [Moles/Vol] 4.1 mmol/L Normal 3.4-5.[address] [facility] Comment on above: Performed By: #### C MP, TSH, HSTROPN #### [facility] [address] [place] [address] Dr. Christos Fallon Protein [Mass/Vol] 7.3 g/dL Normal 6.1-8.2 [facility] Comment on above: Performed By: #### C MP, TSH, HSTROPN #### [facility] [address] [place] [address] Dr. Christos Fallon Sodium [Moles/Vol] 140 mmol/L Normal 137-145 [facility] Comment on above: Performed By: #### C MP, TSH, HSTROPN #### [facility] [address] [address] [address] Christos Fallon Urea nitrogen [Mass/Vol] 11.0 mg/dL Normal 7.0-18.0 [facility] Comment on above: Performed By: #### C MP, TSH, HSTROPN #### [facility] [address] [address] [address] Christos Fallon Urea nitrogen/Creatinine [Mass ratio] 12.5 mg/mg Normal [facility] Comment on above: Performed By: #### C MP, TSH, HSTROPN #### [facility] [address] [address] [address] Christos Fallon TSHon 11-19-2021 TSH 0.774 uIU/mL Normal 0.470-4.680 [facility] Comment on above: Performed By: #### C MP, TSH, HSTROPN #### [facility] [address] [place] [address] Dr. Christos Fallon TSH RANGE SEE BELOW Normal [facility] Comment on above: Result Comment: <0.3 4 UIU/ml HYPERTHYROID 0.34-5.60 UIU/ml EUTHYROID >5.60 UIU/ml HYPOTHYROID Performed By: #### C MP, TSH, HSTROPN #### [facility] [address] [place] [address] Dr. Christos Fallon XR TSPINE 2 VIEWSon [...] TAMIE GUILLERMO Date: 2021-11-19 12:49 Normal [facility] Cardiovascular Lab Reporton 11-17-2021 Cardiovascular Lab Report [facility] Patient Name: Kaila Vasquez [facility] MR #: [id number] Physician: Jonny Fowler M.D. Department of Service Date: 11/17/2021 Medicine Birthdate: 1980 Division of Room #: CC Cardiology Adult Cardiovascular Services [facility] [address] [place]. [place] [address] Cardiovascular Laboratory Report PROCEDURE: Implantable loop recorder [...] subcutaneous pocket, into which was deployed a [employer]Monitor 3 implantable loop recorder. Via off [...] Fowler M.D. Date Trans: 11/17/2021 12:41 P/mmo [id number] cc: Mert Lama M.D. [address] [place] [phone] Normal [facility] Covid-19 PCR (CVDTBH)on SARS-CoV-2 (COVID-19) RNA LEROY+probe Ql (Unsp spec) Not detected Normal NOT DETECTED [facility] Comment on above: Result Comment: This test is not yet approved or cleared by the [place] FDA. When there are no FDA-approved or cleared tests available, and other criteria are met, FDA can make tests available under an emergency access mechanism called an Emergency Use Authorization (EUA). The EUA for this test is supported by the [place] of Health and Human Service's (HHS's) declaration [...] By: #### C MP, TSH, HSTROPN #### [facility] [address] [place] [address] Dr. Christos Fallon Covid-19 PCR (CVDTBH)on SARS-CoV-2 (COVID-19) RNA LEROY+probe Ql (Unsp spec) Not detected Normal NOT DETECTED [facility] Comment on above: Result Comment: When [...] for this test is supported by the Jammer Operator of Health and Human Service's declaration that [...] longer be used). Performed By: #### C [facility] #### [facility] [address] [place], [place] [address] Dr. Christos Fallon Cardiovascular Lab Reporton 06-17-2021 Cardiovascular Lab Report [facility] Patient Name: [facility] MR #: [id number] Physician: Vishal Rogers MD Department of Service Date: 06/17/2021 Medicine Birthdate: 1980 Division of Room #: CC Cardiology Adult Cardiovascular Services [place] [address] Cardiovascular Laboratory Report COMPREHENSIVE EP STUDY AND [...] same (more content not included)... Normal [facility] FEMUR LEFT 2 [facility] 1 FEMUR LEFT 2 [facility] Department of Radiology [address] [place] [phone] ======== Patient Name: KAILA VASQUEZ : 1980 Sex: F Age: Race: White Pt. 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 ======== FEMUR LEFT 2 VWS HISTORY: Postoperative [...] report. Electronically signed: Gelacio Pfeiffer. Transcribed by: [email or web address], User Resident: TAVON BELCHER Electronically Signed by: GELACIO PFEIFFER @ 01/15/2021 12:03 PM I personally read this/these film(s) with this resident Normal [facility] Comment on above: Order Comment: evalu ate Operative Reporton Operative Report MR#: [id number] [facility] Pt. Name: Kaila Vasquez Room #: 0C Discharge 12/05/2020 Date: Birthdate: 1980 OPERATIVE REPORT DATE OF SURGERY: 12/05/2020 SURGEON: Pamella Brennan M.D. PREOPERATIVE DIAGNOSIS: Left distal femur osteochondroma. POSTOPERATIVE DIAGNOSIS: Left distal femur osteochondroma. PROCEDURE PERFORMED: Left distal femur osteochondroma excision. CARE MANAGER CNA: Alaina Edouard M.D. ANESTHESIA: General endotracheal. SPECIMENS: [...] i (more content not included)... Normal [facility] FEMUR LEFT 2 [facility] 1 FEMUR LEFT 2 [facility] Department of Radiology [address] [place] [phone] ======== Patient Name: KAILA VASQUEZ : 1980 Sex: F Age: Race: White Pt. Location: OUTP Patient Status: O Ordered Date: 12/05/2020 7:30:00 AM Completed Date: 12/05/2020 10:05 AM Requesting Provider: PAMELLA BRENNAN Attending Provider: PAMELLA BRENNAN Report Copy To: Signs & Symptoms: LEFT DISTAL FEMUR OSTEOCHONDROMA EXCISION History: Comments: LEFT DISTAL FEMUR OSTEOCHONDROMA EXCISION Exam: FEMUR LEFT [address] [facility] [place] ======== FEMUR LEFT 2 VWS 12/05/2020 10:05 [...] purposes. Electronically signed: Ching Garcia. Transcribed by: [email or web address], User Resident: Electronically Signed by: CHING GARCIA @ 12/05/2020 11:54 AM Normal [facility] Comment on above: Order Comment: LEFT DISTAL FEMUR OSTEOCHONDROMA EXCISION POC GLUCOSE LABon 12-05-2020 Glucose [Mass/Vol] 108 mg/dL High 70-100 [facility] Comment on above: Performed By: #### [id number] ####[facility] *MRSA/MSSA DNA NASALon 11-28 *MRSA/MSSA DNA NASAL Clinical Report: (D ) Specimen: NASAL SWAB Collected: 11/28/2020 13:22 Status: Final Last Updated: 2020 13:05 MSSA DNA (Final) Negative MRSA DNA (Final) Negative Normal [facility] Comment on above: Performed By: #### 3 [id number] ####[facility] [place] [address], RUST APTTon 11-28-2020 aPTT Coag (Bld) [Time] 29.1 s Normal 25.0-35.0 [facility] Comment on above: Result Comment: ALL [...] THIS PURPOSE. Performed By: #### 5 [id number], [id number] #### [facility] [address] [place] [address], [place] BASIC METABOLIC PANELon - Calcium [Mass/Vol] 9.5 mg/dL Normal 8.6-10.3 [facility] Comment on above: Performed By: #### 0 0071 #### [facility] [address] [place] [address], [place] Chloride [Moles/Vol] 104 mmol/L Normal 98-107 [facility] Comment on above: Performed By: #### 0 0071 #### [facility] [address] [place] [address], [place] CO2 [Moles/Vol] 28 mmol/L Normal 21-31 [facility] Comment on above: Performed By: #### 0 0071 #### [facility] [address] [place] [address], [place] Creatinine [Mass/Vol] 0.90 mg/dL Normal 0.60-1.20 [facility] Comment on above: Performed By: #### 0 0071 #### [facility] [address] [place] [address], [place] GFR/1.73 sq M.predicted among blacks MDRD (S/P/Bld) [Vol rate/Area] mL/min/{1.73_m2} Normal >60 [facility] Comment on above: Performed By: #### 0 0071 #### [facility] [address] [place] [address], [place] GFR/1.73 sq M.predicted among non-blacks MDRD (S/P/Bld) [Vol rate/Area] mL/min/{1.73_m2} Normal >60 [facility] Comment on above: Performed By: #### 0 0071 #### [facility] [address] [place] [address], [place] Glucose [Mass/Vol] 132 mg/dL High 70-100 [facility] Comment on above: Performed By: #### 0 0071 #### [facility] [address] [place] [address], [place] Potassium [Moles/Vol] 3.8 mmol/L Normal 3.5-5.1 [facility] Comment on above: Performed By: #### 0 0071 #### [facility] [address] [place] [address], [place] Sodium [Moles/Vol] 138 mmol/L Normal 136-145 [facility] Comment on above: Performed By: #### 0 0071 #### [facility] [address] [place] [address], [place] Urea nitrogen [Mass/Vol] 9 mg/dL Normal 7-25 [facility] Comment on above: Performed By: #### 0 0071 #### [facility] [address] [facility] [place] [place] [address], [place] CBC W/DIFFon 11-28-2020 ABS IMM GRANS 0.0 10*3/uL Normal 0.0-0.2 [facility] Comment on above: Performed By: #### 5 0103 ####[facility] [facility] [place] [address], [place] ABS NEUTROPHILS 7.2 10*3/uL Normal 1.6-7.6 [facility] Comment on above: Performed By: #### 5 102 ####[facility] [facility] [place] [address], [place] Basophils (Bld) [#/Vol] 0.1 10*3/uL Normal 0.0-0.2 [facility] Comment on above: Performed By: #### 5 0103 ####[facility] [facility] Basophils/100 WBC (Bld) 0.6 % Normal 0.0-1.0 [facility] Comment on above: Performed By: #### 5 0103 ####[facility] Eosinophils (Bld) [#/Vol] 0.3 10*3/uL Normal 0.0-0.5 [facility] Comment on above: Performed By: #### 5 3 ####[place] [id number] [address] Eosinophils/100 WBC (Bld) 2.6 % Normal 0.0-6.0 [facility] Comment on above: Performed By: #### 5 3 ####[facility] Erythrocyte distribution width (RBC) [Ratio] 12.6 % Normal 11.5-15.0 [facility] Comment on above: Performed By: #### 3 ####[facility] [facility].[address] Hematocrit (Bld) [Volume fraction] 42.6 % Normal 36.0-45.0 [facility] Comment on above: Performed By: #### 3 ####[facility] Hemoglobin (Bld) [Mass/Vol] 14.4 g/dL Normal 12.0-15.0 [facility] Comment on above: Performed By: #### 3 ####[facility] IMMATURE GRANS 0.3 % Normal 0.0-1.0 [facility] Comment on above: Performed By: #### 5 0103 ####[facility] [place] [address] Lymphocytes (Bld) [#/Vol] 2.1 10*3/uL Normal 1.2-4.0 [facility] Comment on above: Performed By: #### 5 0103 ####[facility] [place] [address] Lymphocytes/100 WBC (Bld) 20.2 % Normal 20.0-45.0 [facility] Comment on above: Performed By: #### 5 3 ####[address] MCH (RBC) [Entitic mass] 33.6 pg High 27.0-33.0 [facility] Comment on above: Performed By: #### 5 3 ####[address] MCHC (RBC) [Mass/Vol] 33.8 g/dL Normal 32.0-35.0 [facility] Comment on above: Performed By: #### 3 ####[address] MCV (RBC) [Entitic vol] 99.5 fL High 82.0-98.0 [facility] Comment on above: Performed By: #### 5 3 ####[address] Monocytes (Bld) [#/Vol] 0.7 10*3/uL Normal 0.1-1.0 [facility] Comment on above: Performed By: #### 5 3 ####[place] [address], [place] MONOS 6.4 % Normal 5.0-12.0 [facility] Comment on above: Performed By: #### 5 0103 ####[facility] [place] [address], [place] Neutrophils/100 WBC (Bld) 69.9 % Normal 40.0-72.0 [facility] Comment on above: Performed By: #### 5 0103 ####[facility] Nucleated RBC/100 WBC (Bld) [Ratio] 0 % Normal 0-0 [facility] Comment on above: Performed By: #### 5 0103 ####[facility] PLAT CNT 346 10*3/uL Normal 150-400 [facility] Comment on above: Performed By: #### 5 0103 ####[facility] [place] [address], [place] RBC (Bld) [#/Vol] 4.28 10*6/uL Normal 3.80-5.00 [facility] Comment on above: Performed By: #### 5 0103 ####[facility] [place] [address], [place] WBC (Bld) [#/Vol] 10.24 10*3/uL Normal 4.00-10.60 [facility] Comment on above: Performed By: #### 5 0103 ####[facility] PROTHROMBIN TIMEon 1 INR Coag (PPP) [Relative time] 0.99 {INR} Normal 0.91-1.16 [facility] Comment on above: Result Comment: ACCC [...] CHEST 1995;108:[id number]. Performed By: #### 5 7307, 23989 #### [facility] [address] [place] [address], [place] PT Coag (PPP) [Time] 13.1 s Normal 12.3-14.8 [facility] Comment on above: Result Comment: ALL RESULTS MUST BE INTERPRETED WITH RESPECT TO BLOOD DRAWING ARTIFACT OR DILUTION ERROR OF ANTICOAGULANT AT THE TIME OF SAMPLING. Performed By: #### 5 7307, [id number] #### [facility] [address] [place] [address], [place] TYPE AND CROSSMATCHon 2020 ABO INTERPRETATION O Normal [facility] Comment on above: Performed By: #### 6 2594 #### [facility] [address] [place] [id number], [place] RH INTERPRETATION Positive Normal [facility] Comment on above: Performed By: #### 6 2594 #### [facility] [address] [place] [address], [place] URINALYSISon 11-28-2020 Appearance (U) CLEAR Normal CLEAR [facility] Comment on above: Performed By: #### 1 0008 #### [facility] [address] [place] [address], [place] Bilirubin Ql (U) Negative Normal NEGATIVE [facility] Comment on above: Performed By: #### 1 0008 #### [facility] [address] [place] [address], [place] Color (U) YELLOW Normal YELLOW [facility] Comment on above: Performed By: #### 1 0008 #### [facility] [address] [place] [address], [place] Glucose Ql (U) Negative Normal NEGATIVE [facility] Comment on above: Performed By: #### 1 0008 #### [facility] [address] [facility] [place] [address], [place] Hemoglobin Ql (U) Negative Normal NEGATIVE [facility] Comment on above: Performed By: #### 1 0008 #### [facility] [address] [facility] [place] [address], [place] KETONE Negative Normal NEGATIVE [facility] Comment on above: Performed By: #### 1 0008 #### [facility] [address] [facility] [place] [address], [place] LEUK JORDAN Negative Normal NEGATIVE [facility] Comment on above: Performed By: #### 1 0008 #### [facility] [address] [facility] [place] [address], [place] MICRO NOT DONE Normal [facility] Comment on above: Result Comment: Micr oscopics not performed on urines with negative chemical reactions unless requested in original order Performed By: #### 1 0008 #### [facility] [address] [facility] [place] [address], [place] Nitrite Ql (U) Negative Normal NEGATIVE [facility] Comment on above: Performed By: #### 1 0008 #### [facility] [address] [place] [address], [place] pH (U) 6.0 [pH] Normal 5.0-8.0 [facility] Comment on above: Performed By: #### 1 0008 #### [facility] [address] [place] [address], [place] Protein Ql (U) Negative Normal NEGATIVE [facility] Comment on above: Performed By: #### 1 0008 #### [facility] [address] [place] [address], [place] SPEC GRAV 1.018 Normal 1.015-1.020 [facility] Comment on above: Performed By: #### 1 0008 #### [facility] [address] [place], [place] [address] [place] [address] Vital Signs Date Time Vital Sign Value Performing Clinician Gabinoi karine 08-24-2022 13:44-0500 Body height 162.6 cm Janell Sy MD Work Phone: [facility] 08-24-2022 13:44-0500 Body weight 112.95 kg Janell Sy MD Work Phone: [facility] 08-24-2022 13:44-0500 Diastolic blood pressure 73 mm[Hg] Janell Sy MD Work Phone: [facility] 08-24-2022 13:44-0500 Heart rate 88 /min Janell Sy MD Work Phone: [facility] 08-24-2022 13:44-0500 SaO2% (BldA) [Mass fraction] 98 % Janell Sy MD Work Phone: [facility] 08-24-2022 13:44-0500 Systolic blood pressure 112 mm[Hg] Janell Sy MD Work Phone: [facility] 08-05-2022 10:00-0500 Diastolic blood pressure 88 mm[Hg] Carmen Johnson PT Work Phone: [facility] 08-05-2022 10:00-0500 Heart rate 78 /min Carmen Johnson PT Work Phone: [facility] 08-05-2022 10:00-0500 Systolic blood pressure 134 mm[Hg] Carmen Johnson PT Work Phone: [facility] 07-07-2022 08:12-0500 Body height 162.6 cm Glenroy Syed [employer]PLANE RIGGER.REAL ESTATE CONSULTANT Work Phone: [facility] 07-07-2022 08:12-0500 Body weight 112.04 kg Glenroytoan Syed AIRPLANE RIGGER.REAL ESTATE CONSULTANT Work Phone: [facility] 07-07-2022 08:12-0500 Diastolic blood pressure 88 mm[Hg] Glenroy Poulhal AIRPLANE RIGGER.REAL ESTATE CONSULTANT Work Phone: [facility] 07-07-2022 08:12-0500 Heart rate 82 /min Glenroy Syed AIRPLANE RIGGER.REAL ESTATE CONSULTANT Work Phone: [facility] 07-07-2022 08:12-0500 SaO2% (BldA) [Mass fraction] 98 % Glenroy Syed AIRPLANE RIGGER.REAL ESTATE CONSULTANT Work Phone: [facility] 07-07-2022 08:12-0500 Systolic blood pressure 134 mm[Hg] Glenroy Syed AIRPLANE RIGGER.REAL ESTATE CONSULTANT Work Phone: [facility] 12-09-2021 13:59-0400 Blood Pressure Location Pamella SANABRIA [facility] [place] 12-09-2021 13:59-0400 Diastolic blood pressure 78 mm[Hg] Pamella SANABRIA [facility] 12-09-2021 13:59-0400 Heart rate 68 /min Pamella ZIMMERMANL [facility] [place] 12-09-2021 13:59-0400 Respiratory rate 16 /min Pamella ZIMMERMANL [facility] [place] 12-09-2021 13:59-0400 Systolic blood pressure 118 mm[Hg] Pamella NILL [facility] Encounters Encounter Date Encounter Type Care Provider Facility Start: 01-31-2024 ambulatory [facility] Start: 01-24-2024 ambulatory JONNY MUNGUIAUBB [facility] Start: 12-19-2023 End: 12-20-2023 ambulatory Cristiane Gutiérrez Facility:[facility] Start: 12-02-2023 ambulatory [facility] Start: 10-25-2023 End: 10-25-2023 ambulatory IRMA CHUNGO Not Available Start: 08-25-2023 End: 08-25-2023 ambulatory IRMA SUDHA Not Available Start: 10-15-2022 Orders Only Glenroy Syed AIRPLANE RIGGER.REAL ESTATE CONSULTANT Work Phone: Neurology Comment on above: 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 (Primary Dx) Start: 10-14-2022 End: 10-14-2022 ambulatory GLENROY SYED Facility:[facility] Start: 09-09-2022 ambulatory Mauri Ross RT(R) Ra soto Comment on above: Radiology MRI Start: 09-09-2022 Patient encounter procedure Mauri Ross RT(R) RONALDO EASON Start: 09-02-2022 End: 09-02-2022 ambulatory ELENA GUAN Facility: Start: 08-24-2022 End: 08-24-2022 ambulatory GLENROY SYED Facility:[facility] Start: 08-24-2022 End: 08-24-2022 Patient encounter procedure Janell Sy MD Work Phone: Cardiology Comment on above: KANG (obstructive sle ep apnea) (Primary Dx); Dizziness; Palpitations; Obesity, morbid, BMI 40.0-49.9 (HCC); SVT (supraventricular tachycardia) (HCC); Chronic fatigue; Vitamin D deficiency Start: 08-20-2022 Orders Only Len Shea AIRPLANE RIGGER.REAL ESTATE CONSULTANT Work Phone: Neurology Comment on above: Ocular migraine (Dinora andres Dx) Start: 08-19-2022 End: 08-19-2022 ambulatory [facility] Neurology Comment on above: Neuro Ophthalmologis t Start: 08-16-2022 ambulatory [facility] Provider Neurology Comment on above: MRI Start: 08-12-2022 End: 08-12-2022 ambulatory GLENROY SYED Facility:[facility] Start: 08-12-2022 End: 08-12-2022 ambulatory Carmen Seese PT Work Phone: Physical Therapy Comment on above: Dizziness (Primary D x); Cervicalgia; Headaches Start: 08-05-2022 End: 08-05-2022 ambulatory GLENROY SYED Facility:[facility] Start: 08-05-2022 End: 08-05-2022 ambulatory Carmen Seese PT Work Phone: Physical Therapy Comment on above: Dizziness (Primary D x); Cervicalgia; Headaches Start: 07-29-2022 End: 07-29-2022 ambulatory WM RODRIGUEZ Facility:[facility] Start: 07-21-[address] MERT LAMA Facilit y:[facility] Start: 07-07-2022 Telephone encounter Glenroy rodriguez AIRPLANE RIGGER.REAL ESTATE CONSULTANT Work Phone: Neurology Comment on above: Received Outside Med ical Records Start: 07-07-2022 End: 07-07-2022 ambulatory GLENROY SYED Facility:[facility] Start: 07-07-2022 End: 07-07-2022 Patient encounter procedure Glenroy Yvonnehal AIRPLANE RIGGER.REAL ESTATE CONSULTANT Work Phone: Neurology Comment on above: Dizziness [...] Patient encounter procedure Pamella SANABRIA [facility] Start: 11-25-2021 End: 11-26-[address] MERT LAMA Facility:[facility] Start: 11-23-2021 Encounter for genera l adult medical examination without abnormal findings DR MERT LAMA [facility] Start: 11-19-2021 End: 11-20-[address] MERT LAMA Facility:[facility] Start: 11-19-2021 End: 11-20-2021 Encounter for general adult medical examination without abnormal findings DR MERT LAMA Facility:[facility] Start: 11-17-2021 End: 11-18-2021 ambulatory MERT LAMA Facility:[facility] Start: 11-14-2021 End: 11-15-2021 ambulatory ANU CABAN Facility:[facility] Start: 10-08-2021 End: 10-08-2021 ambulatory WM RODRIGUEZ Facility:[facility] Start: 06-17-2021 End: 06-18-2021 ambulatory MERT LAMA Facility:[facility] Start: 04-16-2021 End: 05-23-2021 ambulatory MERT LAMA Facility:[facility] Start: 12-05-2020 End: 12-06-2020 ambulatory MERT LAMA Facility:[facility] Procedures Date Procedure Procedure Detail Performing Clinician Start: 08-24-2022 Ecg routine ecg w/le ast 12 lds i&r only [facility] Provider Start: 12-05-2020 ANESTH KNEE AREA SURGERY MERT LAMA Start: 12-05-2020 REMOVE FEMUR LESION CARLOS HAEL P MIKA Start: 11-28-2020 Antibody screen MERT ORTIZ Comment on above: Performed By: #### 6 2594 #### [address] Start: 11-04-2020 Cystourethroscopy wi th dilation of urethral stricture Pamella SANABRIA Abdominal hysterectomy Wale SANABRIA Bilateral complete salpingectomy Pamella SANABRIA Cardiac radiofrequen cy ablation using ultrasound guidance Pamella SANABRIA Cholecystectomy Pamella SANABRIA Excision of osteochondroma Nestor SANABRIA History of ankle surgery Carlos SANABRIA Plan of Treatment Date Care Activity Detail Author Start: 08-08-2022 DEPRESSION ASSESSMENT DEPRESSION ASS [facility] Start: 07-07-2022 End: 09-06-2022 25-hydroxyvitamin D3 [Mass/volume] in Serum or Plasma [facility] Work Phone: Comment on above: Expected: 07/07/2022 , Expires: 09/06/2022 Start: 07-07-2022 End: 09-06-2022 ESEQUIEL BY IFA WITH REFLEX [facility] Work Phone: Comment on above: Expected: 07/07/2022 , Expires: 09/06/2022 Start: 04-08-2022 Influenza vaccination INFLUENZA (#1) [facility] Start: 08-08-2021 DEPRESSION ASSESSMENT DEPRESSION ASS [facility] Start: 11-05-2020 COVID-19 VACCINE (3 - Booster for Giancarlo series) COVID-19 VACCINE (3 - Booster for Giancarlo series) [facility] Start: 2012 HPV TESTING HPV TESTING [facility] Start: 11-30-2003 PAP TESTING PAP TESTING [facility] Start: 2001 Urine microalbumin profile DTA P,TDAP,TD (1 - Tdap) [facility] Start: 2000 HEPATITIS C SCREENING HEPATITIS C SC PARKER [facility] Start: 2000 HIV SCREENING HIV SCREENING [facility] Start: 1982 HEPATITIS B (1 of 3 - 3-dose series) HEPATITIS B (1 of 3 - 3-dose series) [facility] End: 08-24-2023 ECG COMPLETE ECG COMPLETE ECG Routine Dizziness Palpitations Obesity, morbid, BMI 40.0-49.9 ([facility]) 1 Occurrences starting 08/24/2022 until 08/24/2023 [facility] Work Phone: Comment on above: 1 Occurrences starti ng 08/24/2022 until 08/24/2023 ECG COMPLETE ECG COMPLETE ECG 08/24/2022 1:56 PM EST [facility] End: 07-07-2023 Echocardiography ECHO Cardiology Routine Palpitations 1 Occurrences starting 07/07/2022 until 07/07/2023 [facility] Work Phone: Comment on above: 1 Occurrences starti ng 07/07/2022 until 07/07/2023 End: 08-06-2023 Mri brain brain stem w/o w/contrast material MRI BRAIN WO/W IVCON Radiology Routine Dizziness Vision changes 1 Occurrences starting 07/07/2022 until 08/06/2023 [facility] Work Phone: Comment on above: 1 Occurrences starti ng 07/07/2022 until 08/06/2023 End: 09-15-2023 Mri spinal canal cervical w/o & w/contr matrl MRI CERVICAL SPINE WO/W IVCON Radiology Routine Dizziness Vision changes Cervicalgia Disturbance of skin sensation 1 Occurrences starting 08/16/2022 until 09/15/2023 [facility] Work Phone: Comment on above: 1 Occurrences starti ng 08/16/2022 until 09/15/2023 [facility] Immunizations Immunization Date Immunization Notes Care Provider Tayo cullen 09-10-2020 SARS-CoV-2 (COVID-19 ) Ad26 vaccine, recombinant Pamella NILL [facility] [place] 08-12-2020 SARS-CoV-2 (COVID-19 ) Ad26 vaccine, recombinant Pamella NILL [facility] [place] Payers Date Payer Category Payer Unknown [id number] 2021 Unknown [id number] 1982 Unknown [id number] 2.16.8 [id number] 1982 Unknown [id number] 2.16.8 40.1.611868.3.579.2.647 1982 Unknown [id number] 2.16.8 40.1.997419.3.579.2.647 1982 Unknown [id number] 2.16.8 40.1.926185.3.579.2.647 1982 Unknown [id number] 2.16.84 0.1.427991.3.579.2.593 1982 Unknown [id number] 2.16.84 0.1.677380.3.579.2.593 1982 Unknown [id number] 2.16.84 0.1.447824.3.579.2.593 1982 Unknown [id number] 2.16.84 0.1.771015.3.579.2.593 1982 Unknown [id number] 2.16.84 0.1.463236.3.579.2.593 1982 Unknown [id number] 2.16.84 0.1.421135.3.579.2.593 1982 Unknown [id number] 2.16.84 0.1.574138.3.579.2.593 1982 Unknown [id number] 2.16.84 0.1.807157.3.579.2.593 1982 Unknown [id number] 2.16.84 0.1.867233.3.579.2.593 1982 Unknown [id number] 2.16.84 0.1.591379.3.579.2.593 1982 Unknown [id number] 2.16.84 0.1.044440.3.579.2.593 1982 Unknown [id number] 2.16.84 0.1.910262.3.579.2.593 1982 Unknown [id number] 2.16.84 0.1.299912.3.579.2.593 1982 Unknown [id number] 2.16.84 0.1.009190.3.579.2.593 1982 Unknown [id number] 2.16.84 0.1.755659.3.579.2.593 1982 Unknown [id number] 2.16.84 0.1.028511.3.579.2.1259 1982 Unknown [id number] 2.16.84 0.1.422160.3.579.2.1259 1982 Unknown [id number] 2.16.8 40.1.802686.3.579.2.727 1959 Unknown [id number] Social History Date Type Detail Facility Start: 12-09-2021 End: 07-07-2022 Tobacco smoking status Never smoked tobacco (finding) [facility] [place] Tobacco smoking status Never [facility] [place] Sex Assigned At Female Genera [facility] Start: 07-07-2022 Tobacco use and exposure Smokeless tobacco non-user [facility] Start: 1980 Sex Assigned At Not on file [facility] Start: 06-27-2022 End: 07-07-2022 Exposure to SARS-CoV-2 (event) Not sure [facility] Start: 08-24-2022 Alcohol intake Current drinke r of alcohol (finding) [facility] Start: 08-24-2022 Alcohol Comment occasionally 1 -2 times a months 2-3 drinks [facility] Clinical Notes 12-30-2021 to 10-14-2022 RT [place](R) - 09/09/2022 2:11 PM Marilyn Sy MD - 08/24/2022 1:45 PM ESTTelephone Encounter - Glenroy Syed, AIRPLANE RIGGER.REAL ESTATE CONSULTANT - 08/16/2022 8:28 AM Elio Johnson PT - 08/12/2022 2:51 PM EST Note Date & Type Note Facility 10-14-2022 Note HNO ID: [id number] Author: RT Mary(R) Service: ? Author Type: [...] RT Mary(R) October 14, 2022 4:55 PM [place] 10-14-2022 Note HNO ID: [id number] Author: Papa Rea RN Service: Radiology Author [...] DATE: October 14, 2022 TIME: 3:20 PM [place] 09-09-2022 Note HNO ID: [id number] Author: RT Od[place](R) Service: ? Author Type: [...] 09, 2022 TIME: 2:11 PM PAGER/CONTACT #: [place] 09-09-2022 History of Present illness Narrative RADIOLOGY [...] PM PAGER/CONTACT #: documented in this encounter [facility] 08-24-2022 Note HNO ID: [id number] Author: Janell Sy MD Service: ? Author Type: Physician Type: Progress Notes Filed: 08/24/2022 2:17 PM Note Text: [facility] [place] SECTION OF REGIONAL CARDIOLOGY OUTPATIENT VISIT DATE [...] Cardiac work-up includes: Echocardiogram on 05/19/2020 at [facility] showed normal ejection fraction. No valvular heart [...] ECG COMPLETE 4. Obesity, morbid, BMI 40.0-49.9 ([facility]) E66.01 ECG COMPLETE 5. SVT (supraventricular tachycardia) ([facility]) I47.1 6. Chronic fatigue R53.82 [...] Never Vaping U (more content not included)... [place] 08-24-2022 History of Present illness Narrative Images from the original note were not included. [facility] [place] SECTION OF REGIONAL CARDIOLOGY OUTPATIENT VISIT DATE [...] Cardiac work-up includes: Echocardiogram on 05/19/2020 at [facility] showed normal ejection fraction. No valvular heart [...] ECG COMPLETE 4. Obesity, morbid, BMI 40.0-49.9 ([facility]) E66.01 ECG COMPLETE 5. SVT (supraventricular tachycardia) ([facility]) I47.1 6. Chronic fatigue R53.82 [...] PVC (premature ventricular contraction) SVT (supraventricular tachycardia) ([facility]) Vitamin D deficiency No past surgical history [...] twice daily.^Disp: ^Rfl: documented in this encounter [facility] 08-19-2022 Note HNO ID: [id number] Author: Mauri Chun OD Service: ? Author Type: NOZZLEMAN Type: Progress Notes Filed: 08/19/2022 10:22 AM Note Text: Ocular health is unremarkable with no abnormalities. Normal ON appearance Ophthalmic migraines Glasses Rx given with slight prism [place] 08-16-2022 Miscellaneous Notes signed We can add it to fully evaluate her symptoms. -LP documented in this encounter [facility] 08-12-2022 Note HNO ID: [id number] Author: Carmen Johnson, PT Service: ? Author [...] Time Minutes (timed/untimed): 60 Carmen Johnson, PT [place] 08-12-2022 History of Present illness Narrative Episode [...] Carmen Johnson PT documented in this encounter [facility] 08-05-2022 Note HNO ID: [id number] Author: Carmen Johnson PT Service: ? Author [...] Planned: 8 Planned Treatment Interventions: Therapeutic exercise (85870);Neuromuscular re-education (79683);Manual therapy (04098);Therapeutic activities (24492);Self-assisted management (77593);Patient/Family/Caregiver Education;Gait Training (68530);Canalith Repositioning Maneuvers (21863) PLAN FOR NEXT VISIT: Detailed neck exam [...] Premature atrial contra (more content not included)... [place] 08-05-2022 History of Present illness Narrative Episode [...] Planned: 8 Planned Treatment Interventions: Therapeutic exercise (39209);Neuromuscular re-education (56641);Manual therapy (73614);Therapeutic activities (76320);Self-assisted management (42361);Patient/Family/Caregiver Education;Gait Training (68777);Canalith Repositioning Maneuvers (11078) PLAN FOR NEXT VISIT: Detailed neck exam [...] present Head Shake: Negative Positional Testing Right [place]-Hallpike: No nystagmus;Asymptomatic Left Juan-Hallpike: No nystagmus;Asymptomatic Right [...] Demonstration;Requires Review/Additional Education TREATMENT: PT Treatment Interventions: Self-Mcfp Management;Therapeutic Exercise Evaluation Therapeutic Exercise: 1: c/s retractions x 10, cues for technique Skilled Intervention: Patient was educated in proper exercise technique and purpose for exercises. Patient education as noted. Self-Mcfp Management: 1: Educated regarding potential multifactorial cause [...] Carmen Johnson PT documented in this encounter [facility] 07-07-2022 Note HNO ID: [id number] Author: Glenroy Syed APRN.REAL ESTATE CONSULTANT Service: ? Author Type: Nurse Practitioner Type: Progress Notes Filed: 07/07/2022 12:28 PM Note Text: [facility] General Neurology New Patient Evaluation CHIEF COMPLAINT: [...] over a month. She has seen an tool repairer bench and was told she was having occular migraine by her mainframe developer. A couple times a month she gets [...] for 1 dose.N (more content not included)... [place] 07-07-2022 Miscellaneous Notes Noted. Provider notified. Received medical records from [facility]. Uploaded to chart and forwarded for review. documented in this encounter [facility] 07-07-2022 Instructions Glenroy Syed APRN.SARIKA - 07/07/2022 9:06 AM EST Plan: Baseline labs MRI Brain for multiple symptoms ECHO for palpitations and arrhythmias Aspirin 81mg daily in the setting of known arrhythmias Consult to [place] for dizziness Consult to Cardiology for second opinion Consult to ophthalmology Follow up after testing documented in this encounter [facility] 07-07-2022 History of Present illness Narrative Images from the original note were not included. [facility] General Neurology New Patient Evaluation CHIEF COMPLAINT: [...] over a month. She has seen an tool repairer bench and was told she was having occular migraine by her mainframe developer. A couple times a month she gets [...] Finger Abduction (U) 5 Finger Abduction 5 Orthophoto Tech/Draftsman 5 Orthophoto Tech/Draftsman 5 Right Lower Extremity: (of 5) Left [...] over a month. She has seen an tool repairer bench and was told she was having occular migraine by her mainframe developer. A couple times a month she gets [...] VT reccommended. Patient wanting second opinion from mainframe developer within the the [facility], referral placed. Unlikely autonomic dysfunction with unremarkable tilt and orthostatic vitals in office unconvincing (did not take BB today). Additionally, with visual changes, recommended seeing neuro gang bore operator. Will obtain additional labs as well. Follow [...] which included preparing to see the patient, [id number] patient care, completing clinical documentation, obtaining and/or reviewing separately obtained history, performing a medically appropriate examination, counseling and educating the patient/family/caregiver, ordering medications, tests, or procedures, and care coordination (not separately reported). Glenroy Syed APRN.CNP [facility] General Neurology [address] [place] [address] Appointment: [phone] In regards to blood work, testing, and [...] your PCP/referring physician documented in this encounter [facility] 03-16-2022 Note EXAM: CHEST 2 VIEWS HISTORY: [...] authenticated by: BETTY MORALES Date: 2022-03-16 18:[address] [facility] 12-30-2021 Note [facility] [place], [place] NAME: KAILA VASQUEZ DATE OF : MEDICAL REC#: [id number] MEDICAL EQUIPMENT REPAIR TECHNICIAN: [address] [facility], TRANSADMIT DATE: 12/30/2021 09:02:00 CHEMICAL OPERATIONS SPECIALIST DATE: 12/30/2021 21:00 DICTATING PHYSICIAN: PAMELLA SANABRIA [...] DR PAMELLA SANABRIA . 01/06/2022 08:31:00 [facility] Evaluation + Plan note No data available for this section General Surgery [place] Evaluation note Diagnosis Dizziness- Primary Dizziness and giddiness Migraine aura without headache Migraine with aura, without mention of intractable migraine without mention of status migrainosus Palpitations Chronic fatigue Other malaise and fatigue Vision changes Unspecified visual disturbance Disturbance of skin sensation [facility] Diagnosis Dizziness- Primary Dizziness and giddiness Cervicalgia Headaches [facility]* Diagnosis Dizziness- Primary Dizziness and giddiness Cervicalgia Headaches [facility]* Diagnosis Cervicalgia- Primary Dizziness Dizziness and giddiness Vision changes Unspecified visual disturbance Disturbance of skin sensation documented in this encounter [facility]* Diagnosis Ocular migraine- Primary Other forms of migraine, without mention of intractable migraine without mention of status migrainosus documented [facility] this encounter [facility]* Diagnosis KANG (obstructive sleep apnea)- Primary Obstructive sleep apnea (adult) (pediatric) Dizziness Dizziness and giddiness Palpitations Obesity, morbid, BMI 40.0-49.9 (HCC) Morbid obesity SVT (supraventricular tachycardia) ([facility]) Other specified cardiac dysrhythmias Chronic fatigue Other malaise and fatigue Vitamin D deficiency Unspecified vitamin D deficiency [facility] Diagnosis Degeneration of intervertebral disc of cervical region with osteophyte of cervical vertebra- Primary documented in this encounter [facility] Discharge instructions No data available for this section General Surgery [place] Reason for referral (narrative)* Outpatient Procedure (Routine) - Authorized Specialty Diagnoses / Procedures Referred By Contac t Referred To [facility] Diagnoses Dizziness Palpitations Obesity, morbid, BMI 40.0-49.9 ([facility]) Procedures ECG COMPLETE ECG ROUTINE ECG W/LEAST 12 LDS W/I&R Janell Sy MD [address] [place] [address] [facility] [place] [address] [place] [address] Referral ID Status Reason Start Date Expiration Date Visits Requested Visits Authorized [id number] Authorized Auto-Generat ed Referral 08/24/2022 08/24/2023 1 1 [facility] Summary Purpose Family History No [...] By Contac t Referred To Contact [facility] [place] Diagnoses Degeneration of intervertebral disc of cervical region with osteophyte of cervical vertebra Procedures CONSULT TO [facility] OFFICE/OUTPATIENT [facility] 60-74 MINUTES Glenroy Syed, AIRPLANE RIGGER.REAL ESTATE CONSULTANT [address] [place] [address] Referral ID Status Reason Start Date Expiration Date Visits Requested Visits Authorized [id number] Authorized PCP Requested Referral 10/15/2022 10/15/2023 1 1 Specialty Diagnoses / Procedures Referred By Contac t Referred To Contact Ophthalmology Diagnoses Ocular migraine Procedures CONSULT TO OPHTHALMOLOGY OFFICE/OUTPATIENT [facility] 60-74 MINUTES Len Shea, AIRPLANE RIGGER.REAL ESTATE CONSULTANT [address] [facility] [id number] [place] [address] Josefina Grimes MD [address] [place] [address] Referral ID Status Reason Start Date Expiration Date Visits Requested Visits Authorized [id number] Authorized PCP Requested Referral 08/20/2022 08/20/2023 1 1 Specialty Diagnoses / Procedures Referred By Contac t Referred To Contact Cardiology Diagnoses Dizziness Palpitations Procedures CONSULT TO CARDIOLOGY OFFICE/OUTPATIENT [facility] 60-74 MINUTES Glenroy Syed, AIRPLANE RIGGER.REAL ESTATE CONSULTANT [address] [place] [id number] Referral ID Status Reason Start Date Expiration Date Visits Requested Visits Authorized [id number] Authorized PCP Requested Referral 2 07/07/2023 1 1 Specialty Diagnoses / Procedures Referred By Contac t Referred To Contact MR IMAGING Diagnoses Dizziness Vision changes Procedures MRI BRAIN WO/W IVCON MRI BRAIN BRAIN STEM W/O W/CONTRAST MATERIAL Glenroy Syed, AIRPLANE RIGGER.REAL ESTATE CONSULTANT [address] [place] [id number] Mr Imaging Referral ID Status Reason Start Date Expiration Date Visits Requested Visits Authorized [id number] Authorized Auto-Generat ed Referral 2 08/21/2022 1 1 Specialty Diagnoses / Procedures Referred By Contac t Referred To Contact Ophthalmology Diagnoses Vision changes Procedures CONSULT TO OPHTHALMOLOGY OFFICE/OUTPATIENT [facility] 60-74 MINUTES Glenryo Syed, AIRPLANE RIGGER.REAL ESTATE CONSULTANT [address] [place] [address] Josefina Grimes MD [address] [id number] Referral ID Status Reason Start Date Expiration Date Visits Requested Visits Authorized [id number] Authorized PCP Requested Referral 2 07/07/2023 1 1 Specialty Diagnoses / Procedures Referred By Contac t Referred To Contact [facility] Diagnoses Palpitations Procedures ECHO ECHO TTHRC R-T 2D W/WOM-MODE COMPL SPEC&COLR D Glenroy Syed, AIRPLANE RIGGER.REAL ESTATE CONSULTANT [address] [place] [phone] [facility] [place] [address] [place] [address] Referral ID Status Reason Start Date Expiration Date Visits Requested Visits Authorized [id number] Authorized Auto-Generat ed Referral 2 07/07/2023 1 1 Additional Source Comments INFORMATION SOURCE (unrecogn ized section and content) DATE CREATED AUTHOR 11/24/2021 [facility] DATE CREATED AUTHOR AUTHOR'S ORGANIZ ATION 07/20/2022 [facility] DATE CREATED AUTHOR AUTHOR'S ORGANIZ ATION 09/06/2022 [facility] DATE CREATED AUTHOR AUTHOR'S ORGANIZ ATION 10/16/2022 [place] DATE CREATED AUTHOR AUTHOR'S ORGANIZ ATION 10/26/2023 [facility] dical [facility] DATE CREATED AUTHOR AUTHOR'S ORGANIZ ATION 01/04/2024 [facility] DATE CREATED AUTHOR AUTHOR'S ORGANIZ ATION 02/01/2024 [facility] Source Comments (unrecognize d section and content) In the event this informatio n is protected by the Federal Confidentiality of Alcohol and Drug Abuse Patient Records regulations: The Federal rules restrict any use of the information to criminally investigate or prosecute any alcohol or drug abuse patient.[facility] the event this information is protected by the Federal Confidentiality of Alcohol and Drug Abuse Patient Records regulations: The Federal rules restrict any use of the information to criminally investigate or prosecute any alcohol or drug abuse patient.[facility] Foundation[facility] the event this information is protected by the Federal Confidentiality of Alcohol and Drug Abuse Patient Records regulations: The Federal rules restrict any use of the information to criminally investigate or prosecute any alcohol or drug abuse patient.[facility] Foundation[facility] the event this information is protected by the Federal Confidentiality of Alcohol and Drug Abuse Patient Records regulations: The Federal rules restrict any use of the information to criminally investigate or prosecute any alcohol or drug abuse patient.[facility] Foundation[facility] the event this information is protected by the Federal Confidentiality of Alcohol and Drug Abuse Patient Records regulations: The Federal rules restrict any use of the information to criminally investigate or prosecute any alcohol or drug abuse patient.[facility] Foundation[facility] the event this information is protected by the Federal Confidentiality of Alcohol and Drug Abuse Patient Records regulations: The Federal rules restrict any use of the information to criminally investigate or prosecute any alcohol or drug abuse patient.[facility] Foundation[facility] the event this information is protected by the Federal Confidentiality of Alcohol and Drug Abuse Patient Records regulations: The Federal rules restrict any use of the information to criminally investigate or prosecute any alcohol or drug abuse patient.[facility] Foundation[facility] the event this information is protected by the Federal Confidentiality of Alcohol and Drug Abuse Patient Records regulations: The Federal rules restrict any use of the information to criminally investigate or prosecute any alcohol or drug abuse patient.[facility] Foundation[facility] the event this information is protected by the Federal Confidentiality of Alcohol and Drug Abuse Patient Records regulations: The Federal rules restrict any use of the information to criminally investigate or prosecute any alcohol or drug abuse patient.[facility] Foundation[facility] the event this information is protected by the Federal Confidentiality of Alcohol and Drug Abuse Patient Records regulations: The Federal rules restrict any use of the information to criminally investigate or prosecute any alcohol or drug abuse patient.[facility] Reason for Visit (unrecogniz ed section and [...] NEW RS PT VESTIBULAR DIZZY Glenroy Syed, AIRPLANE RIGGER.REAL ESTATE CONSULTANT [address] [place] [address] SeeCarmen vazquez, PT [address] [place] [address] Referral ID Status Reason Start Date Expiration Date Visits Re quested Visits Authorized [id number] Closed 08/08/2021 08/07/2022 30 30 Reason Comments Physical Therapy Specialty Diagnoses / Procedures Referred By Contac t Referred To Contact PHYSICAL THERAPY Diagnoses Dizziness Procedures Physical Therapy Glenroy Syed, AIRPLANE RIGGER.REAL ESTATE CONSULTANT [address] [place] [address] [facility] [address] [place] [address] Referral ID Status Reason Start Date Expiration Date V isits Requested Visits Authorized [id number] Pending Review 08/12/2022 11/10/2022 1 1 Reason Comments Establish Care Palpitations Dizziness Specialty Diagnoses / Procedures Referred By Contac t Referred To Contact Cardiology Diagnoses Dizziness Palpitations Procedures CONSULT TO CARDIOLOGY OFFICE/OUTPATIENT [facility] MDM 60-74 MINUTES Glenroy Syed, AIRPLANE RIGGER.REAL ESTATE CONSULTANT [address] [place] [address] Referral ID Status Reason Start Date Expiration Date V isits Requested Visits Authorized [id number] Closed PCP Requested Referral 07/07/2022 07/07/2023 1 1 Reason Comments Radiology MRI Care Teams (unrecognized sec tion and content) Gardening Instructor Relationship Specialty Start Date End Date Mert Lama MD [address] [place] [address] Referring Family Medicine 06/10/22 Gardening Instructor Relationship Specialty Start Date End Date Mert Lama MD [address] [place] [address] Referring Family [facility] 06/10/22 Gardening Instructor Relationship Specialty Start Date End Date Mert Lama MD [address] [place] [address] Referring Family [facility] 06/10/22 Gardening Instructor Relationship Specialty Start Date End Date Mert Lama MD [address] [place] [address] Referring Family Medicine 06/10/22 Gardening Instructor Relationship Specialty Start Date End Date Mert Lama MD [address] [place] [address] Referring Family [facility] 06/10/22 Gardening Instructor Relationship Specialty Start Date End Date Mert Lama MD [address] [address] Referring Family [facility] 06/10/22 Gardening Instructor Relationship Specialty Start Date End Date Mert Lama MD [address] [place] [address] Referring Family [facility] 06/10/22 Gardening Instructor Relationship Specialty Start Date End Date Mert Lama MD [address] [place] [address] Referring [facility] 06/10/22 FOR RECORDS PERTAINING TO PATIENTS [...] BE BASED ON THE PRIMARY CLINICAL RECORDS. [facility]. provides no warranty or guarantee of the accuracy or completeness of information in this document.
--- NOTE | 2024-03-08 14:23 | PM.CN ---
Consult Note: HPI Data of Consult Patient: known to practice within the last 3 years Requesting Physician: Deepika Alicia NP Primary Care Provider: LEON WILSON Consult Narrative Reason for consult: f/u Narrative: Jeanette Vasquez a pleasant 43 year old female presents for evaluation and management of chronic bilateral low back pain. Chronic worsening low back pain over the last 20 years, has failed PT/water therapy and traction greater than 6 weeks. PRN tylenol and ibuprofen OTC providing mild relief without benefit. moderate relief of myofascial pain from tizanidine. Recently underwent bilateral L4-5 L5-S1 MBB #1 and #2 with >80% improvement in pain and functional ability immediately following and hours after the procedure. cc:: CC: Deepika Alicia NP Review of Systems ROS Status of ROS 10 or more systems reviewed and unremarkable except as noted in history and below Musculoskeletal Reports: back pain PFSH [facility] Medical History (Updated 02/28/24 @ 14:56 by Lisa Holder RN) Arthritis ?M19.90 - Unspecified osteoarthritis, unspecified site (ICD-10) Anemia ?D64.9 - Anemia, unspecified (ICD-10) Acid reflux ?K21.9 - Gastro-esophageal reflux disease without esophagitis (ICD-10) Kidney stone ?N20.0 - Calculus of kidney (ICD-10) Irregular heart beat ?I49.9 - Cardiac arrhythmia, unspecified (ICD-10) Surgical History History of cardiac radiofrequency ablation ?Z98.890 - Other specified postprocedural states (ICD-10) History of ankle surgery ?Z98.890 - Other specified postprocedural states (ICD-10) History of hysterectomy ?Z90.710 - Acquired absence of both cervix and uterus (ICD-10) Hx of cholecystectomy ?Z90.49 - Acquired absence of other specified parts of digestive tract (ICD-10) Meds Home Medications and Allergies Home Medications ?Medication ?Instructions ?Recorded ?Confirmed ?Type metoprolol tartrate 50 mg tablet 50 mg PO BID 12/30/23 03/06/24 History tizanidine 4 mg capsule (Zanaflex) 4 mg PO Q8H PRN muscle spasticity 12/30/23 03/06/24 Rx #20 caps diazepam 10 mg tablet 10 mg PO Q1H 03/06/24 03/06/24 History Allergies Allergy/AdvReac Type Severity Reaction Status Date / Time No Known Drug Allergies Allergy Verified 03/06/24 07:54 Exam Constitutional Documenting provider has reviewed patient's vital signs: yes Common normals: no apparent distress, oriented x3, healthy appearing, alert and well nourished General appearance: cooperative HENMT Common normals: normocephalic, hearing grossly normal bilaterally and moist oral mucous membranes Head and scalp: normocephalic Eye Common normals: PERRL Pupil: PERRL Neck & C-Spine Common normals: full ROM General: normal visual inspection Chest Common normals: inspection of chest normal Respiratory Common normals: normal respiratory effort, no retractions and no use of accessory muscles Back & Pelvis Lumbar spine/lower back: normal to inspection, ROM limited, pain with ROM and straight leg raise negative bilaterally Sacroiliac joints: SI joints normal Other: bilateral facet loading positive tenderness over L4-S1 facets no radiculopathy on exam, strength 5/5 in BLE Extremity Common normals: normal to inspection and full ROM Neuro Common normals: oriented x3, CN's II-XII intact bilaterally, moves all extremities, no focal motor deficits, no sensory deficits noted and deep tendon reflexes 2+ bilaterally Sensorium/orientation: alert Motor exam: strength 5/5 throughout and no movement abnormalities noted Psych Common normals: mental status grossly normal, thought process normal, cooperative, affect normal, speech normal and activity/motor behavior normal Speech: normal speech Thought process: normal thought process Results Additional Findings Additional findings: If on a controlled substance or opioids, I have checked an [place] report on this patient and there are no aberrancies noted in the prescribing history.??If on a controlled substance or opioid a drug screen was completed and reviewed within the last year, and if there has not been a drug screen completed we ordered one today to monitor higher risk, state monitored pain medication use. As part of providing excellent, safe, comprehensive care, the following was completed at our patient's visit: 1. A medication reconciliation and review to ensure accurate knowledge of current/active medications, including asking our patients to inform us about any owxg-smh-zywqfmf medications or herbal remedies/nutritional supplements/alternative remedies. 2. A review to specifically ensure our patients have had annual screening for screening for depression, screening for tobacco use, and screening for unhealthy alcohol use. For concerning screenings had a discussion with the patient, provided patient education, and recommended follow-up with primary care provider when appropriate. If patient noted with a risk of falling, they received education on strength, gait, and balance training to prevent future risk of falling. Assessment and Plan Assessment and Plan (1) Lumbar spondylosis: Plan left then right L4-5 L5-S1 facet joint RFA under fluoroscopy with IV sedation due to anxiety and inability to safely tolerate RFAs. hx of complicated cardiac ablation which has caused moderate to severe anxiety with procedures continue current medications as needed f/u 1 month after completion
== END 2024-03-08 13:48 | disposition home or self-care (01) ==
LOC: PM 13:47
PROVIDERS: PCP Family Medicine; Visit Provider Nurse Practitioner
DX: M47.816 Spondylosis without myelopathy or radiculopathy, lumbar region (principal)
CPT/HCPCS: G0463

== ENCOUNTER 2024-03-13 06:37 | Day surgery (SDC) | payer BC, SELFPAY ==
--- OUTSIDE RECORDS SUMMARY | 2024-03-13 06:41 | XMS_ITS | CCD ---
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 Role Phone MERT LAMA Referring Unavailable PAMELLA BRENNAN Attending Unavailable MIKA, PAMELLA Ang Surgeon Unavailable PAMELLA BRENNAN Admitting Unavailable NM Procedure Practitioner Unavailab MERT Caban Primary Care [...] Primary Care Physician Mert Lama MD Unavailable [phone] DANIEL, DR MERT Forrest Primary Care Unavailable DANIEL, DR MERT Forrest Consulting Unavailable DANIEL, DR MERT Forrest Attending Unavailable DANIEL, DR MERT Forrest Admitting Unavailable BETTY MORALES Consulting Unavailable DANIEL, DR MERT Forrest Primary Care Unavailable DANIEL, DR MERT Forrest Attending Unavailable DANIEL, DR EMRT Forrest Admitting Unavailable DANIEL, DR MERT Forrest Consulting Unavailable JOHNSON PARK Admitting Unavailable DANIEL, DR MERT Forrest Primary Care Unavailable ELENA GUAN Consulting Unavailable JOHNOSN PARK Attending Unavailable PAL WETZEL Consulting Unavailable [...] CHUN Attending Unavailable POULTON, GLENROY Referring Unavailable IRMA HALEY Attending Unavailable IRMA HALEY Attending Unavailable Cristiane Gutiérrez Attending Unavailable MANUEL, JONNY Referring Unavailable MANUEL, JONNY Referring Unavailable MANUEL, JONNY Referring Unavailable MANUEL, JONNY Referring Unavailable MANUEL, JONNY Referring Unavailable MANUEL, JONNY Referring Unavailable VISHAL ROGERS Referring Unavailable MANUEL, JONNY Referring Unavailable VISHAL ROGERS Referring Unavailable Medications Current [...] in NaCl (PF) 0.9% 10 mL injection (DEFINXplore Mobility) (10 sources) Start: 07-07-20 End: 10-06-19 24 [...] Comment on above: Take 1 capsule by [facility] once daily. 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 CURRENT DRUG THERAPY] Onset: 09-06-2022 Episodic Other [...] Range Facility ED Note-Physicianon 01-03-20 ED Note-Physician [id number]#1.00 TIFF Normal [facility] RAD - MRI Reporton RAD - MRI Report [id number]#1.0 0TIFF Normal [facility] RAD - MRI Report [id number]#1.0 0TIFF [facility] RAD - MRI Report [id number]#1.00 TIFF Normal [facility] RAD - MRI Report [id number]#1.00 TIFF Normal [facility] RAD - MRI Report [id number]#1.0 0TIFF Normal [facility] RAD - MRI Report [id number]#1.00 TIFF Normal [facility] Physician Orderon 12-22-2023 Physician Order [id number]#1.00 TIFF Normal [facility] Provider Letteron 12-21-2023 Provider Letter December 21, 2023 [place] [id number] : 1980 To Whom It May Concern, Please excuse above patient from work. Date of Illness: From: 12/19/2023 To: 12/21/2023 May Return to Work On: 12/22/2023 Sincerely, [place] [address] Normal [facility] Lab Reportson 12-20-2023 Lab Reports [id number]#1.00 TIFF Normal [facility] Physician Orderon 12-20-2023 Physician Order [id number]#1.00 TIFF [facility] RAD - MISCon 12-20-2023 RAD - MISC [id number]#1.00 TIFF [facility] Ambulatory Visit Summaryon 0 12-19-2023 Ambulatory [...] sciatica BMI 40.0-44.9, adult Non-smoker Pickup at [facility]/pharmacy #[id number] New meloxicam (meloxicam 15 mg Tab) 1 Tablets By Mouth Every day Low back pain with sciatica BMI 40.0-44.9, adult [facility] New methylPREDNISolone (Medrol 4 mg Tab) 1 Packets By Mouth As Directed Low back pain with sciatica BMI 40.0-44.9, adult Non-smoker Duration: 6 Days as directed on package labeling Pickup at [facility]/pharmacy #6177 Unchanged metoprolol (Metoprolol tartrate 50 mg Tab) 1 Tablets By Mouth 2 times a day [id number] [address], [place] [id number] [phone] Medications and Immunizations Administered Given ketorolac 30 [...] for choosing us for your care. 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 Had x-ray done at [facility] for spine over a year or [...] Bedtime for spasm, 20 cap(s), Refill(s) 0, [facility]/pharmacy #6177, 165.1, cm, 12/19/23 13:17:00 EDT, Height/Length Dosing, 114.6, kg, 12/19/23 13:17:00 EDT, Weight Dosing ketorolac, 30 mg = 1 mL, Injection, IntraMuscular, Once, Stop date 12/19/23 13:35:00 EDT, Routine, Start date 12/19/23 13:35:00 EDT, 12/19/23 13:35:00 EDT meloxicam, 15 mg = 1 tab(s), Oral, Daily, # 30 tab(s), Refills(s) 0, Pharmacy: [facility]/pharmacy #6177, 165.1, cm, 12/19/23 13:17:00 EDT, Height/Length Dosing, 114.6, kg, 12/19/23 13:17:00 EDT, Weight Dosing methylPREDNISolone, = 1 packet(s), Oral, As Directed, as directed on package labeling, X 6 day(s), # 21 tab(s), Refills(s) 0, Pharmacy: [facility]/pharmacy #6177, 165.1, cm, 12/19/23 13:17:00 EDT, Height/Length Dosing, 114.6, kg, 12/19/23 13:17:00 EDT, Weight Dosing 2. BMI 40.0-44.9, adult (Z68.41: Body mass index [BMI] 40.0-44.9, adult) BMI education complete Ordered: cyclobenzaprine, 15 mg, 1 cap(s), Oral, Bedtime for spasm, 20 cap(s), Refill(s) 0, [facility]pharmacy [facility]6177, 165.1, cm, 12/19/23 13:17:00 EDT, Height/Length Dosing, 114.6, kg, 12/19/23 13:17:00 EDT, Weight Dosing ketorolac, 30 mg = 1 mL, Injection, IntraMuscular, Once, Stop date 12/19/23 13:35:00 EDT, Routine, Start date 12/19/23 13:35:00 EDT, 12/19/23 13:35:00 EDT meloxicam, 15 mg = 1 tab(s), Oral, Daily, # 30 tab(s), Refills(s) 0, Pharmacy: [facility]/pharmacy #6177, 165.1, cm, 12/19/23 13:17:00 EDT, Height/Length Dosing, 114.6, kg, 12/19/23 13:17:00 EDT, Weight Dosing methylPREDNISolone, = 1 packet(s), Oral, As Directed, as directed on package labeling, X 6 day(s), # 21 tab(s), Refills(s) 0, Pharmacy: [facility]/pharmacy #6177, 165.1, cm, 12/19/23 13:17:00 EDT, Height/Length Dosing, 114.6, kg, 12/19/23 13:17:00 EDT, Weight Dosing 3. Non-smoker (Z78.9: Other specified health status) continue not smoking Ordered: cyclobenzaprine, 15 mg, 1 cap(s), Oral, Bedtime for spasm, 20 cap(s), [facility]ill(s) 0, [facility] 165.[facility], cm, 12/19/23 13:17:00 EDT, Height/Length Dosing, 114.6, kg, 12/19/23 13:17:00 EDT, Weight Dosing ketorolac, 30 mg = 1 mL, Injection, IntraMuscular, Once, Stop date 12/19/23 13:35:00 EDT, Routine, Start date 12/19/23 13:35:00 EDT, 12/19/23 13:35:00 EDT meloxicam, 15 mg = 1 tab(s), Oral, Daily, # 30 tab(s), Refills(s) 0, Pharmacy: [facility]/pharmacy #6177, 165.1, cm, 12/19/23 13:17:00 EDT, Height/Length Dosing, 114.6, kg, 12/19/23 13:17:00 EDT, Weight Dosing methylPREDNISolone, = 1 packet(s), Oral, As Directed, as directed on package labeling, X 6 day(s), # 21 tab(s), Refills(s) 0, Pharmacy: [facility]/pharmacy #6177, 165.1, cm, 12/19/23 13:17:00 EDT, Height/Length Dosing, 114.6, kg, 12/19/23 13:17:00 EDT, Weight Dosing Follow-up No qualifying data available Problem List/Past Medical History Ongoing Anemia Anxiety (more content not included)... [facility] Comment on above: Result Comment: Elec tronically Signed By: Cristiane Brasher.br\Date and Time Signed: 12/19/23 13:59 EDT Physician Orderon 12-19-2023 Physician Order [id number]#1.00 TIFF [facility] Consultation Noteon 02-15-20 Consultation Note [id number]#1.0 0CD:127 [facility] Consultation Noteon 02-05-20 Consultation Note [id number]#1.0 0CD:127 [facility] Comment on above: Other Comment: INCOM PLETE FAX.NDW Formson 02-02-2023 Forms [id number]#1.0 0CD:127 [facility] Consultation Noteon 01-29-20 Consultation Note [id number]#1.00 CD:127 [facility] Cardiovascular Reporton 01-06 Cardiovascular Report [id number]#1.0 0CD:127 [facility] MRI BRAIN WO/W IVCONon 10-14 MRI [...] cord. No mass or pathologic intradural enhancement. Wharf Builder: NARCISO Transcribe Date/Time: Oct 14 2022 8:43P Dictated by : UNIQUE ANDERSON MD This examination was interpreted and the report reviewed and electronically signed by: UNIQUE ANDERSON MD on Oct 14 2022 8:51PM EST [id number] Normal [facility] MRI CERVICAL SPINE WO/W IVCO Non 10-14-2022 [...] cord. No mass or pathologic intradural enhancement. Wharf Builder: NARCISO Transcribe Date/Time: Oct 14 2022 8:43P Dictated by : UNIQUE ANDERSON MD This examination was interpreted and the report reviewed and electronically signed by: UNIQUE ANDERSON MD on Oct 14 2022 8:51PM EST [id number] Normal [facility] CBC AUTO DIFFon 09-02-2022 BASO # 0.1 103/ul Normal 0.0-0.1 [facility] Comment on above: Performed By: #### C MP, TSH, HSTROPN #### [facility] [address] [place] [address] Dr. Christos Fallon Basophils/100 WBC (Bld) 0.5 % Normal 0.2-2.0 [facility] Comment on above: Performed By: #### C MP, TSH, HSTROPN #### [facility] [address] [address] [address] Christos Fallon EO # 0.2 103/ul Normal 0.0-0.7 [facility] Comment on above: Performed By: #### C MP, TSH, HSTROPN #### [facility] [address] [place] [address] Dr. Christos Fallon Eosinophils/100 WBC (Bld) 2.3 % Normal 0.9-7.0 [facility] Comment on above: Performed By: #### C MP, TSH, HSTROPN #### [facility] [address] [place] [address] Dr. Christos Fallon Erythrocyte distribution width (RBC) [Ratio] 13.0 % Normal 11.0-15.0 [facility] Comment on above: Performed By: #### C MP, TSH, HSTROPN #### [facility] [address] [place] [address] Dr. Christos Fallon Hematocrit (Bld) [Volume fraction] 43.0 % Normal 36.0-48.0 [facility] Comment on above: Performed By: #### C MP, TSH, HSTROPN #### [facility] [address] [place] [address] Dr. Christos Fallon Hemoglobin (Bld) [Mass/Vol] 13.9 g/dL Normal 12.0-16.0 [facility] Comment on above: Performed By: #### C MP, TSH, HSTROPN #### [facility] [address] [place] [address] Dr. Christos Fallon IG # 0.03 10e3/ul Normal 0.00-0.03 [facility] Comment on above: Performed By: #### C MP, TSH, HSTROPN #### [facility] [address] [place] [address] Dr. Christos Fallon IG % 0.3 % Normal 0.0-0.5 [facility] Comment on above: Performed By: #### C MP, TSH, HSTROPN #### [facility] [address] [place] [address] Dr. Christos Fallon LYMPH # 2.8 103/ul Normal 1.2-3.8 [facility] Comment on above: Performed By: #### C MP, TSH, HSTROPN #### [facility] [address] [place] [address] Dr. Christos Fallon Lymphocytes/100 WBC (Bld) 29.6 % Normal 20.5-60.0 [facility] Comment on above: Performed By: #### C MP, TSH, HSTROPN #### [facility] [address] [place] [address] Dr. Christos Fallon MANUAL DIFF REQ NO Normal [facility] Comment on above: Performed By: #### C MP, TSH, HSTROPN #### [facility] [address] [place] [address] Dr. Christos Fallon MCH (RBC) [Entitic mass] 34.8 pg Critically high 26.7-34.0 [facility] Comment on above: Performed By: #### C MP, TSH, HSTROPN #### [facility] [address] [place] [address] Dr. Christos Fallon MCHC (RBC) [Mass/Vol] 32.3 g/dL Normal 29.9-35.2 [facility] Comment on above: Performed By: #### C MP, TSH, HSTROPN #### [facility] [address] [place] [address] Dr. Christos Fallon MCV (RBC) [Entitic vol] 107.5 fL Critically high 81.0-99.0 [facility] Comment on above: Performed By: #### C MP, TSH, HSTROPN #### [facility] [address] [place] [address] Dr. Christos Fallon MONO # 0.7 103/ul Normal 0.3-0.8 [facility] Comment on above: Performed By: #### C MP, TSH, HSTROPN #### [facility] [address] [place] [address] Dr. Christos Fallon Monocytes/100 WBC (Bld) 7.7 % Normal 1.7-12.0 [facility] Comment on above: Performed By: #### C MP, TSH, HSTROPN #### [facility] [address] [place] [address] Dr. Christos Fallon NEUT # 5.7 103/ul Normal 1.4-6.5 [facility] Comment on above: Performed By: #### C MP, TSH, HSTROPN #### [facility] [address] [place] [address] Dr. Christos Fallon Neutrophils/100 WBC (Bld) 59.6 % Normal 43.0-75.0 [facility] Comment on above: Performed By: #### C MP, TSH, HSTROPN #### [facility] [address] [address] [address] Christos Fallon Platelet mean volume (Bld) [Entitic vol] 9.9 fL Normal 9.5-13.5 [facility] Comment on above: Performed By: #### C MP, TSH, HSTROPN #### [facility] [address] [address] [address] Christos Fallon PLT 309 103/ul Normal 150-450 [facility] Comment on above: Performed By: #### C MP, TSH, HSTROPN #### [facility] [address] [address] [address] Christos Fallon RBC 4.00 106/ul Critically low 4.20-5.40 [facility] Comment on above: Performed By: #### C MP, TSH, HSTROPN #### [facility] [address] [address] [address] Christos Fallon WBC 9.6 103/ul Normal 4.0-11.0 [facility] Comment on above: Performed By: #### C MP, TSH, HSTROPN #### [facility] [address] [address] [address] Christos Fallon D-DIMERon 09-02-2022 D-DIMER 0.28 mg/L FEU Normal <=0.59 [facility] Comment on above: Performed By: #### C MP, TSH, HSTROPN #### [facility] [address] [address] [address] Christos Fallon D-DIMER COMMENTS SEE BELOW Normal [facility] Comment on above: Result Comment: Incr [...] By: #### C MP, TSH, HSTROPN #### [facility] [address] [place] [address] Dr. Christos Fallon PROF 14(COMP METB)on 023 Albumin [Mass/Vol] 3.8 g/dL Normal 3.4-5.0 [facility] Comment on above: Performed By: #### C MP, TSH, HSTROPN #### [facility] [address] [place] [address] Dr. Christos Fallon Albumin/Globulin [Mass ratio] 1.2 {ratio} Normal [facility] Comment on above: Performed By: #### C MP, TSH, HSTROPN #### [facility] [address] [place] [address] Dr. Christos Fallon ALP [Catalytic activity/Vol] 85 U/L Normal 46-116 [facility] Comment on above: Performed By: #### C MP, TSH, HSTROPN #### [facility] [address] [place] [address] Dr. Christos Fallon ALT [Catalytic activity/Vol] 39 U/L Normal 14-59 [facility] Comment on above: Performed By: #### C MP, TSH, HSTROPN #### [facility] [address] [place] [address] Dr. Christos Fallon Anion gap [Moles/Vol] 16.3 mmol/L Normal [facility] Comment on above: Performed By: #### C MP, TSH, HSTROPN #### [facility] [address] [place] [address] Dr. Christos Fallon AST [Catalytic activity/Vol] 19 U/L Normal 15-37 [facility] Comment on above: Performed By: #### C MP, TSH, HSTROPN #### [facility] [address] [place] [address] Dr. Christos Fallon Bilirubin [Mass/Vol] 0.4 mg/dL Normal 0.2-1.0 [facility] Comment on above: Performed By: #### C MP, TSH, HSTROPN #### [facility] [address] [place] [address] Dr. Christos Fallon Calcium [Mass/Vol] 9.2 mg/dL Normal 8.5-10.1 [facility] Comment on above: Performed By: #### C MP, TSH, HSTROPN #### [facility] [address] [place] [address] Dr. Christos Fallon Chloride [Moles/Vol] 101 mmol/L Normal 98-107 [facility] Comment on above: Performed By: #### C MP, TSH, HSTROPN #### [facility] [address] [place] [address] Dr. Christos Fallon CO2 [Moles/Vol] 24.9 mmol/L Normal 21.0-32.0 [facility] Comment on above: Performed By: #### C MP, TSH, HSTROPN #### [facility] [address] [place] [address] Dr. Christos Fallon Creatinine [Mass/Vol] 0.83 mg/dL Normal 0.55-1.02 [facility] Comment on above: Performed By: #### C MP, TSH, HSTROPN #### [facility] [address] [place] [address] Dr. Christos Fallon EGFR-AF MALTESE >60 Normal >=60 [facility] Comment on above: Performed By: #### C MP, TSH, HSTROPN #### [facility] [address] [place] [address] Dr. Christos Fallon EGFR-NON AF MALTESE >60 Normal >=60 [facility] Comment on above: Performed By: #### C MP, TSH, HSTROPN #### [facility] [address] [place] [address] Dr. Christos Fallon Globulin (S) [Mass/Vol] 3.2 g/dL Normal [facility] Comment on above: Performed By: #### C MP, TSH, HSTROPN #### [facility] [address] [address] [address] Christos Fallon Glucose [Mass/Vol] 142 mg/dL Critically high 74-106 [facility] Comment on above: Performed By: #### C MP, TSH, HSTROPN #### [facility] [address] [address] [address] Christos Fallon Potassium [Moles/Vol] 3.2 mmol/L Critically low 3.5-5.1 [facility] Comment on above: Performed By: #### C MP, TSH, HSTROPN #### [facility] [address] [place] [address] Dr. Christos Fallon Protein [Mass/Vol] 7.0 g/dL Normal 6.4-8.2 [facility] Comment on above: Performed By: #### C MP, TSH, HSTROPN #### [facility] [address] [place] [address] Dr. Christos Fallon Sodium [Moles/Vol] 139 mmol/L Normal 136-145 [facility] Comment on above: Performed By: #### C MP, TSH, HSTROPN #### [facility] [address] [address] [address] Christos Fallon Urea nitrogen [Mass/Vol] 10.0 mg/dL Normal 7.0-18.0 [facility] Comment on above: Performed By: #### C MP, TSH, HSTROPN #### [facility] [address] [place] [address] Dr. Christos Fallon Urea nitrogen/Creatinine [Mass ratio] 12.0 mg/mg Normal [facility] Comment on above: Performed By: #### C MP, TSH, HSTROPN #### [facility] [address] [place] [address] Dr. Christos Fallon PROTIMEon 09-02-2022 INR Coag (PPP) [Relative time] {INR} Normal [facility] Comment on above: Performed By: #### C MP, TSH, HSTROPN #### [facility] [address] [place] [address] Dr. Christos Fallon INR GUIDELINES SEE BELOW Normal [facility] Comment on above: Result Comment: GUALBERTO RED INR: 2.0 - 3.0 CONDITIONS NOT LISTED BELOW 2.5 - 3.5 FOR PROSTHETIC HEART VALVE REPLACEMENT 2.5 - 3.5 RECURRENT THROMBOSIS Performed By: #### C MP, TSH, HSTROPN #### [facility] [address] [place] [address] Dr. Christos Fallon PT Coag (PPP) [Time] 9.7 s Normal 9.0-11.6 [facility] Comment on above: Performed By: #### C MP, TSH, HSTROPN #### [facility] [address] [place] [address] Dr. Christos Fallon PTTon 09-02-2022 aPTT Coag (Bld) [Time] 25.9 s Normal 22.3-36.2 [facility] Comment on above: Performed By: #### C MP, TSH, HSTROPN #### [facility] [address] [place] [address] Dr. Christos Fallon TROPONIN, HIGH SENSITIVITYon 09-02-2022 HSTROP <4.0 Normal 4.0-51.3 [facility] Comment on above: Result Comment: CUT- OFF POINTS HAVE BEEN ESTABLISHED BASED ON THE FOURTH UNIVERSAL DEFINITIONS OF MYOCARDIAL INFARCTION. THE UPPER REFERENCE LIMIT (URL) OF TROPONIN, DEFINED THE 99TH PERCENTILE OF cTnI DISTRIBUTION IN A REFERENCE POPULATION, HAS BEEN CONFIRMED THE DECISION THRESHOLD FOR [place] DIAGNOSIS. Performed By: #### C MP, TSH, HSTROPN #### [facility] [address] [place] [address] Dr. Christos Fallon TSHon 09-02-2022 TSH 0.813 uIU/mL Normal 0.358-3.740 [facility] Comment on above: Performed By: #### C MP, TSH, HSTROPN #### [facility] [address] [place] [address] Dr. Christos Fallon XR CHEST 1 Von [...] by: LEEANNE MON Date: 2022-09-02 15:09 [facility] ) KAILA VASQUEZ ([id number]) 1980 F Date Time Provider Department 08/24/22 2:00 PM JANELL SY During your visit today, we recorded the following information about you: Pulse Blood pressure Weight Height 88/minute 112/73 112.9 kg 1.626 m Janell Sy MD 08/24/2022 2:17 PM Signed [facility] [place] SECTION OF REGIONAL CARDIOLOGY OUTPATIENT VISIT DATE [...] Cardiac work-up includes: Echocardiogram on 05/19/2020 at [facility] showed normal ejection fraction. No [...] ECG COMPLETE 4. Obesity, morbid, BMI 40.0-49.9 ([facility]) E66.01 ECG COMPLETE 5. SVT (supraventricular tachycardia) ([facility]) I47.1 6. Chronic fatigue R53.82 7. [...] apnea) Palpitatio (more content not included)... Normal [facility] ECG COMPLETEon 08-24-2022 ECG COMPLETE Ventricular Rate : 8 4 BPM Atrial Rate : 84 BPM P-R Interval : 166 ms QRS Duration : 92 ms Q-T Interval : 358 ms QTC Calculation(Bazett) : 423 ms Calculated P [place] : 60 degrees Calculated R [place] : 45 degrees Calculated T [place] : 45 degrees NORMAL SINUS RHYTHM INCREASED R/S RATIO IN V1, CONSIDER EARLY TRANSITION OR POSTERIOR INFARCT ABNORMAL ECG Confirmed by MEERA BOYD M.D. ([id number]) on 08/28/2022 3:03:10 PM NAME : KAILA VASQUEZ PID : [id number] : 1980 Gender : Female Race : ORD : [id number] Procedure Date : Aug 24 2022 13:56:02 [...] JANELL SY Acquired by : Jose browning [facility] CNTHERAPYon 08-12-2022 CNTHERAPY OT/PT/Speech Visit (PTAMCF) CHRISTINAKAILA SHELLEY Emily ([id number]) 1980 F Date Time Provider Department 08/12/22 2:45 PM SEJALSE CARMEN [facility] Date Time Provider Department Center 08/12/2022 2:45 PM [id number], KARA [facility] Reason for Visit: Physical Therapy [...] % (flush) 10 mL (BD POSIFLUSH) Normal [facility] CNTHERAPYon 08-05-2022 CNTHERAPY OT/PT/Speech Visit (PTAMCF) KAILA VASQUEZ ([id number]) 1980 F Date Time Provider Department 08/05/22 9:15 AM CARMEN JOHNSON [facility] Date Time Provider Department Center 08/05/2022 9:15 AM [id number], KARA [facility] Reason for Visit: PT Eval [747] [...] % (flush) 10 mL (BD POSIFLUSH) Normal [facility] Covid-19 PCR (CVDTB)on 07-09 SARS-CoV-2 (COVID-19) RNA LEROY+probe Ql (Unsp spec) Not detected Normal NOT DETECTED [facility] Comment on above: Result Comment: When diagnostic [...] for this test is supported by the [employer] Of Sustainable [employer] of Health and Human Service's declaration that [...] used). Performed By: #### C VDAGA #### [facility] [address] [place] [address] Dr. Christos Fallon 25(OH)D3 [facility] 2021 25-hydroxyvitamin D3 [Mass/Vol] 15.8 ng/mL Low 31.0-80.0 [facility] Comment on above: Order Comment: Speci men Type: BLOOD SPECIMENOrdering Facility: [facility] Address: [address] [place] [address] Result Comment: Clas sification of 25 [place] Vitamin D status: Deficiency/Insufficiency: < or = 30 ng/ml. Sufficiency/Optimal Levels: 31-80 ng/mL Toxicity: > 100 ng/mL. Test performed by chemiluminescent immunoassay. Performed By: #### 1 989-3 ####[facility] LABCLIA [id number] [place] [address] [place] ESEQUIEL BY IFA WITH REFLEXon ESEQUIEL PATTERN Nuclear fine speckled Normal Cl [facility] Comment on above: Order Comment: Speci men Type: BLOOD SPECIMENOrdering Facility: [facility] Address: [address] [place] [address] Performed By: #### 2 9374-6, 79104-9, 96551-9, 41344-4, 48899-4, ANAIFR, 68513-6, 22479-5, 95134-6, 80928-8 ####[facility] LABCLIA [id number] [place] [address] [place] ESEQUIEL TITER 1:160 Normal [facility] Comment on above: Order Comment: Speci men Type: BLOOD SPECIMENOrdering Facility: [facility] Address: [address] [id number] Performed By: #### 2 9374-6, 82692-5, 94654-0, 63063-4, 13713-1, ANAIFR, 26949-7, 34484-5, 93819-3, 10910-5 ####[facility] LABCLIA [id number] [place] [address] [place] Nuclear Ab IF (S) [Titer] Positive Abnormal Negative [facility] Comment on above: Order Comment: Speci men Type: BLOOD SPECIMENOrdering Facility: [facility] Address: [address] [place], [place] [address] Result Comment: Anti -nuclear antibody test is used as an aid in diagnosis of systemic autoimmune diseases. Where positive and clinically warranted, follow-up using disease-specific testing is recommended. Low positive titers are not uncommon with advanced age, certain chronic infections, and malignancies among others. Test methodology: Indirect fluorescence immunoassay (IFA) using HEp-2 cells. Performed By: #### 2 9374-6, 86911-1, 11953-0, 52773-0, 40095-8, ANAIFR, 25239-1, 17647-8, 18603-7, 53585-8 ####[facility] LABCLIA [id number] [address] [address] [place] Basic metabolic 2000 panelon 07-07-2022 Anion gap [Moles/Vol] 13 mmol/L Normal 9-18 [facility] Comment on above: Order Comment: Speci men Type: BLOOD SPECIMENOrdering Facility: [facility] Address: [address] [id number] Performed By: #### 2 4321-2 ####[facility] LABCLIA [id number] [place] [address] [place] Calcium [Mass/Vol] 9.3 mg/dL Normal 8.5-10.2 [facility] Comment on above: Order Comment: Speci men Type: BLOOD SPECIMENOrdering Facility: [facility] Address: [address] [address] Performed By: #### 2 4321-2 ####[facility] LABCLIA [id number] [place] [address] [place] Chloride [Moles/Vol] 102 mmol/L Normal 97-105 [facility] Comment on above: Order Comment: Speci men Type: BLOOD SPECIMENOrdering Facility: [facility] Address: [address] [address] Performed By: #### 2 4321-2 ####[facility] LABCLIA [id number] [place] [address] [place] CO2 [Moles/Vol] 23 mmol/L Normal 22-30 [facility] Comment on above: Order Comment: Speci men Type: BLOOD SPECIMENOrdering Facility: [facility] Address: [address] [place] [address] Performed By: #### 2 4321-2 ####[facility] LABCLIA [id number] [place] [address] [place] Creatinine [Mass/Vol] 0.72 mg/dL Normal 0.58-0.96 [facility] Comment on above: Order Comment: Speci men Type: BLOOD SPECIMENOrdering Facility: [facility] Address: [address] [place] [address] Performed By: #### 2 4321-2 ####[facility] LABCLIA [id number] [place] [address] [place] ESTIMATED GLOMERULAR FILTRATION RATE 109 mL/min/1.73m??? Normal >=60 [facility] Comment on above: Order Comment: Speci men Type: BLOOD SPECIMENOrdering Facility: [facility] Address: [address] [place] [address] Result Comment: Dina mated Glomerular Filtration Rate [...] actual GFR. Performed By: #### 2 4321-2 ####[facility] LABCLIA [id number] [place] [address] [place] Glucose [Mass/Vol] 98 mg/dL Normal 74-99 [facility] Comment on above: Order Comment: Speci men Type: BLOOD SPECIMENOrdering Facility: [facility] Address: [address] [place] [address] Result Comment: The [place] [employer] (ADA) provides guidance for cutoff [...] Standards of Medical Care in Diabetes 2016, [place] [employer]. Diabetes Care. 2016.39(Suppl 1). Performed By: #### 2 4321-2 ####[facility] LABCLIA [id number] [place] [address] [place] Potassium [Moles/Vol] 4.1 mmol/L Normal 3.7-5.1 [facility] Comment on above: Order Comment: Speci men Type: BLOOD SPECIMENOrdering Facility: [facility] Address: [address] [place], [place] [address] Performed By: #### 2 4321-2 ####[facility] LABCLIA [id number] [place] [address] [place] Sodium [Moles/Vol] 138 mmol/L Normal 136-144 [facility] Comment on above: Order Comment: Speci men Type: BLOOD SPECIMENOrdering Facility: [facility] Address: [address] [address] Performed By: #### 2 4321-2 ####[facility] LABCLIA [id number] [place] [address] [place] Urea nitrogen [Mass/Vol] 8 mg/dL Normal 7-21 [facility] Comment on above: Order Comment: Speci men Type: BLOOD SPECIMENOrdering Facility: [facility] Address: [address] [address] Performed By: #### 2 4321-2 ####[facility] LABCLIA [id number] [place] [address] [place] Anion gap [Moles/Vol] 13 mmol/L 9 - 18 mmol/L [facility] Calcium [Mass/Vol] 9.3 mg/dL 8.5 - 10. 2 mg/dL [facility] Chloride [Moles/Vol] 102 mmol/L 97 - 10 5 mmol/L [facility] CO2 [Moles/Vol] 23 mmol/L 22 - 30 mmol/L [facility] Creatinine [Mass/Vol] 0.72 mg/dL 0.58 - 0.96 mg/dL [facility] Estimated Glomerular Filtration Rate 109 mL/min/1.73m >=60 mL/min/1.73m [facility] Glucose [Mass/Vol] 98 mg/dL 74 - 99 mg/dL [facility] Potassium [Moles/Vol] 4.1 mmol/L 3.7 - 5.1 mmol/L [facility] Sodium [Moles/Vol] 138 mmol/L 136 - 144 mmol/L [facility] Urea nitrogen [Mass/Vol] 8 mg/dL 7 - 21 mg/dL [facility] CBC W Auto Differential pane l (Bld)on 07-07-2022 Basophils (Bld) [#/Vol] 0.04 10*3/uL Normal <0.11 [facility] Comment on above: Order Comment: Speci men Type: BLOOD SPECIMENOrdering Facility: [facility] Address: [address] [address] Performed By: #### 5 7021-8 ####[facility] LABCLIA [id number] [place] [address] [place] Basophils/100 WBC (Bld) 0.5 % Normal [facility] Comment on above: Order Comment: Speci men Type: BLOOD SPECIMENOrdering Facility: [facility] Address: [address] [place] [address] Performed By: #### 5 7021-8 ####[facility] LABCLIA [id number] [place] [address] [place] Differential cell count method Nom (Bld) Auto Normal [facility] Comment on above: Order Comment: Speci men Type: BLOOD SPECIMENOrdering Facility: [facility] Address: [address] [place] [address] Performed By: #### 5 7021-8 ####[facility] LABCLIA [id number] [place] [address] [place] Eosinophils (Bld) [#/Vol] 0.29 10*3/uL Normal <0.46 [facility] Comment on above: Order Comment: Speci men Type: BLOOD SPECIMENOrdering Facility: [facility] Address: [address] [place] [address] Performed By: #### 5 7021-8 ####[facility] LABCLIA [id number] [place] [address] [place] Eosinophils/100 WBC (Bld) 3.9 % Normal [facility] Comment on above: Order Comment: Speci men Type: BLOOD SPECIMENOrdering Facility: [facility] Address: [address] [place] [address] Performed By: #### 5 7021-8 ####[facility] LABCLIA [id number] [place] [address] [place] Erythrocyte distribution width (RBC) [Ratio] 12.1 % Normal 11.5-15.0 [facility] Comment on above: Order Comment: Speci men Type: BLOOD SPECIMENOrdering Facility: [facility] Address: [address] [place] [address] Performed By: #### 5 7021-8 ####[facility] LABCLIA [id number] [place] [address] [place] Hematocrit (Bld) [Volume fraction] 43.5 % Normal 36.0-46.0 [facility] Comment on above: Order Comment: Speci men Type: BLOOD SPECIMENOrdering Facility: [facility] Address: [address] [place] [address] Performed By: #### 5 7021-8 ####[facility] LABIA [id number] [place] [address] [place] Hemoglobin (Bld) [Mass/Vol] 14.9 g/dL Normal 11.5-15.5 [facility] Comment on above: Order Comment: Speci men Type: BLOOD SPECIMENOrdering Facility: [facility] Address: [address] [place] [address] Performed By: #### 5 7021-8 ####[facility] LABIA [id number] [place] [address] [place] Immature granulocytes (Bld) [#/Vol] 0.03 10*3/uL Normal <0.10 [facility] Comment on above: Order Comment: Speci men Type: BLOOD SPECIMENOrdering Facility: [facility] Address: [address] [place] [address] Performed By: #### 5 7021-8 ####[facility] LABCLIA [id number] [place] [address] [place] Immature granulocytes/100 WBC (Bld) 0.4 % Normal [facility] Comment on above: Order Comment: Speci men Type: BLOOD SPECIMENOrdering Facility: [facility] Address: [address] [place] [address] Performed By: #### 5 7021-8 ####[facility] LABCLIA [id number] [place] [address] [place] Lymphocytes (Bld) [#/Vol] 1.71 10*3/uL Normal 1.00-4.00 [facility] Comment on above: Order Comment: Speci men Type: BLOOD SPECIMENOrdering Facility: [facility] Address: [address] [place] [address] Performed By: #### 5 7021-8 ####[facility] LABCLIA [id number] [place] [address] [place] Lymphocytes/100 WBC (Bld) 23.2 % Normal [facility] Comment on above: Order Comment: Speci men Type: BLOOD SPECIMENOrdering Facility: [facility] Address: [address] [place] [address] Performed By: #### 5 7021-8 ####[facility] LABCLIA [id number] [place] [address] [place] MCH (RBC) [Entitic mass] 34.1 pg High 26.0-34.0 [facility] Comment on above: Order Comment: Speci men Type: BLOOD SPECIMENOrdering Facility: [facility] Address: [address] [place] [address] Performed By: #### 5 7021-8 ####[facility] LABCLIA [id number] [place] [address] [place] MCHC (RBC) [Mass/Vol] 34.3 g/dL Normal 30.5-36.0 [facility] Comment on above: Order Comment: Speci men Type: BLOOD SPECIMENOrdering Facility: [facility] Address: [address] [address] Performed By: #### 5 7021-8 ####[facility] LABCLIA [id number] [place] [address] [place] MCV (RBC) [Entitic vol] 99.5 fL Normal 80.0-100.0 [facility] Comment on above: Order Comment: Speci men Type: BLOOD SPECIMENOrdering Facility: [facility] Address: [address] [address] Performed By: #### 5 7021-8 ####[facility] LABIA [id number] [place] [address] [place] Monocytes (Bld) [#/Vol] 0.57 10*3/uL Normal <0.87 [facility] Comment on above: Order Comment: Speci men Type: BLOOD SPECIMENOrdering Facility: [facility] Address: [address] [address] Performed By: #### 5 7021-8 ####[facility] LABIA [id number] [place] [address] [place] Monocytes/100 WBC (Bld) 7.7 % Normal [facility] Comment on above: Order Comment: Speci men Type: BLOOD SPECIMENOrdering Facility: [facility] Address: [address] Performed By: #### 5 7021-8 ####[facility] LABIA [id number] [place] [address] [place] Neutrophils (Bld) [#/Vol] 4.73 10*3/uL Normal 1.45-7.50 [facility] Comment on above: Order Comment: Speci men Type: BLOOD SPECIMENOrdering Facility: [facility] Address: [address] [place], [place] [address] Performed By: #### 5 7021-8 ####[facility] LABCLIA [id number] [place] [address] [place] Neutrophils/100 WBC (Bld) 64.3 % Normal [facility] Comment on above: Order Comment: Speci men Type: BLOOD SPECIMENOrdering Facility: [facility] Address: [address] [place] [address] Performed By: #### 5 7021-8 ####[facility] LABIA [id number] [place] [address] [place] Nucleated RBC (Bld) [#/Vol] 10*3/uL Normal <0.01 [facility] Comment on above: Order Comment: Speci men Type: BLOOD SPECIMENOrdering Facility: [facility] Address: [address] [place] [address] Performed By: #### 5 7021-8 ####[facility] LABIA [id number] [place] [address] [place] Nucleated RBC/100 WBC (Bld) [Ratio] 0.0 /100 WBC Normal [facility] Comment on above: Order Comment: Speci men Type: BLOOD SPECIMENOrdering Facility: [facility] Address: [address] [place] [address] Performed By: #### 5 7021-8 ####[facility] LABIA [id number] [place] [address] [place] Platelet mean volume (Bld) [Entitic vol] 9.6 fL Normal 9.0-12.7 [facility] Comment on above: Order Comment: Speci men Type: BLOOD SPECIMENOrdering Facility: [facility] Address: [address] [place] [address] Performed By: #### 5 7021-8 ####[facility] LABIA [id number] [place] [address] [place] Platelets (Bld) [#/Vol] 277 10*3/uL Normal 150-400 [facility] Comment on above: Order Comment: Speci men Type: BLOOD SPECIMENOrdering Facility: [facility] Address: [address] [place] [address] Performed By: #### 5 7021-8 ####[facility] LABCLIA [id number] [place] [address] [facility] [place] RBC (Bld) [#/Vol] 4.37 10*6/uL Normal 3.90-5.20 [facility] Comment on above: Order Comment: Speci men Type: BLOOD SPECIMENOrdering Facility: [facility] Address: [address] [place] [address] Performed By: #### 5 7021-8 ####[facility] LABCLIA [id number] [place] [address] [place] WBC (Bld) [#/Vol] 7.37 10*3/uL Normal 3.70-11.00 [facility] Comment on above: Order Comment: Speci men Type: BLOOD SPECIMENOrdering Facility: [facility] Address: [address] [place] [address] Performed By: #### 5 7021-8 ####[facility] LABCLIA [id number] [place] [address] [place] Basophils (Bld) [#/Vol] 0.04 10*3/uL <0.11 k/uL [facility] Basophils/100 WBC (Bld) 0.5 % [facility] Differential cell count method Nom (Bld) Auto [facility] Eosinophils (Bld) [#/Vol] 0.29 10*3/uL <0.46 k/uL [facility] Eosinophils/100 WBC (Bld) 3.9 % [facility] Erythrocyte distribution width (RBC) [Ratio] 12.1 % 11.5 - 15.0 % [facility] Hematocrit (Bld) [Volume fraction] 43.5 % 36.0 - 46.0 % [facility] Hemoglobin (Bld) [Mass/Vol] 14.9 g/dL 11.5 - 15.5 g/dL [facility] Immature granulocytes (Bld) [#/Vol] 0.03 10*3/uL <0.10 k/uL [facility] Immature granulocytes/100 WBC (Bld) 0.4 % [facility] Lymphocytes (Bld) [#/Vol] 1.71 10*3/uL 1.00 - 4.00 k/uL [facility] Lymphocytes/100 WBC (Bld) 23.2 % [facility] MCH (RBC) [Entitic mass] 34.1 pg High 26.0 - 34.0 pg [facility] MCHC (RBC) [Mass/Vol] 34.3 g/dL 30.5 - 36.0 g/dL [facility] MCV (RBC) [Entitic vol] 99.5 fL 80.0 - 100.0 fL [facility] Monocytes (Bld) [#/Vol] 0.57 10*3/uL <0.87 k/uL [facility] Monocytes/100 WBC (Bld) 7.7 % [facility] Neutrophils (Bld) [#/Vol] 4.73 10*3/uL 1.45 - 7.50 k/uL [facility] Neutrophils/100 WBC (Bld) 64.3 % [facility] Nucleated RBC (Bld) [#/Vol] <0.01 k/uL [facility] Nucleated RBC/100 WBC (Bld) [Ratio] 0.0 /100 WBC [facility] Platelet mean volume (Bld) [Entitic vol] 9.6 fL 9.0 - 12.7 fL [facility] Platelets (Bld) [#/Vol] 277 10*3/uL 150 - 400 k/uL [facility] RBC (Bld) [#/Vol] 4.37 10*6/uL 3.90 - 5.2 0 m/uL [facility] WBC (Bld) [#/Vol] 7.37 10*3/uL 3.70 - 11. 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 She has seen an deburring machine operator and was told she was having occular migraine by her trust and estates attorney. A couple times a month she gets [...] tobacco: Never (more content not included)... Normal [facility] CNPNon 07-07-2022 CNPN Telephone ([facility]) KAILA VASQUEZ ([id number]) 1980 F Date Time Provider Department 07/07/22 GLENROY SYED NEVÍCTORFV During your visit today, we recorded the following information about you: Cinthya Salgado 07/07/2022 8:52 AM Signed Received medical records from [facility]. Uploaded to chart and forwarded for review. Kajal Gillsepie RN 07/07/2022 9:14 AM Signed Noted. Provider notified. Allergies As of Date: 07/07/2022 (Not on File) Date Reviewed: 07/07/2022 Reviewed by: Elaine Bolaños Ma - Fully Assessed Reason for Visit: Received Outside Medical Records [1857] Prescriptions as of 07/19/2022 - metoprolol tartrate, short acting, (LOPRESSOR) 50 mg tablet metoprolol tartrate 50 mg tablet Facility-Administered Medications as of 07/19/2022 - perflutren lipid microspheres 1.3 mL in NaCl (PF) 0.9% 10 mL injection (DEFINITY) - sodium chloride 0.9 % (flush) 10 mL (BD POSIFLUSH) Problem List As Of Date: 07/07/2022 (None) Encounter Status:Closed by CINTHYA SALGADO on 07/19/22 Normal [facility] Centromere Ab IF Ql (S)on Centromere Ab Qn (S) <0.2 Normal <1.0 [facility] Comment on above: Order Comment: Speci men Type: BLOOD SPECIMENOrdering Facility: [facility] Address: [address] [place] [address] Result Comment: Anti -centromere antibody is used as in aid in diagnosis of systemic sclerosis. Clinical correlation is required. Test Methodology: Multiplex flow immunoassay. Performed By: #### 2 9374-6, 59977-0, 10263-3, 25293-8, 77875-0, ANAIFR, 25410-7, 01286-6, 69351-9, 31455-0 ####[facility] LABCLIA [id number] [place] [address] [place] CENTROMERE AB QUAL Negative Normal Negative [facility] Comment on above: Order Comment: Speci men Type: BLOOD SPECIMENOrdering Facility: [facility] Address: [address] [place] [address] Performed By: #### 2 9374-6, 55007-6, 25506-3, 83281-9, 93382-4, ANAIFR, 96807-9, 00976-8, 23609-2, 89685-1 ####[facility] LABCLIA [id number] [place] [address] [place] Chromatin Ab Qnon 07-07-2022 CHROMATIN AB QUAL Negative Normal Negative [facility] Comment on above: Order Comment: Speci men Type: BLOOD SPECIMENOrdering Facility: [facility] Address: [address] [place] [address] Performed By: #### 2 9374-6, 90252-4, 51290-6, 18115-6, 60973-6, ANAIFR, 63631-6, 57304-7, 05805-7, 67274-9 ####[facility] LABCLIA [id number] [place] [address] [place] Chromatin Ab SerPl-aCncon Chromatin Ab Qn <0.2 Normal <1.0 [facility] Comment on above: Order Comment: Speci men Type: BLOOD SPECIMENOrdering Facility: [facility] Address: [address] [place] [address] Result Comment: Test Methodology: Multiplex flow immunoassay. Performed By: #### 2 9374-6, 30206-5, 77610-6, 71232-8, 81337-1, ANAIFR, 34217-1, 07103-6, 85926-3, 56860-6 ####[facility] LABCLIA [id number] [place] [address] [place] KAMRAN Jo1 Ab Ser-aCncon 2021 Radha-1 extractable nuclear Ab Qn (S) <0.2 Normal <1.0 [facility] Comment on above: Order Comment: Speci men Type: BLOOD SPECIMENOrdering Facility: [facility] Address: [address] [place] [address] Performed By: #### 2 9374-6, 99416-7, 36283-8, 14281-6, 52649-7, ANAIFR, 56503-5, 27683-2, 14854-1, 73798-5 ####[facility] LABIA [id number] [place] [address] [place] KAMRAN DRAWER IN [place] Ab Ser-aCncon 2021 Ribonucleoprotein extractable nuclear Ab Qn (S) <0.2 Normal <1.0 [facility] Comment on above: Order Comment: Speci men Type: BLOOD SPECIMENOrdering Facility: [facility] Address: [address] [place] [address] Performed By: #### 2 9374-6, 44420-1, 30576-5, 35589-8, 42345-5, ANAIFR, 06138-0, 78197-0, 77692-7, 53250-8 ####[facility] LABCLIA [id number] [place] [address] [place] KAMRAN SM IgG Ser-aCncon 2021 Osborne extractable nuclear IgG Qn (S) <0.2 Normal <1.0 [facility] Comment on above: Order Comment: Speci men Type: BLOOD SPECIMENOrdering Facility: [facility] Address: [address] [place] [address] Performed By: #### 2 9374-6, 88591-0, 38079-4, 23765-3, 78313-9, ANAIFR, 48048-2, 18327-8, 38330-1, 33041-3 ####[facility] [id number] [place] [address] [place] [facility]07 Sjogrens syndrome-A extractable nuclear Ab Qn (S) 0.3 AI Normal <1.0 [facility] Comment on above: Order Comment: Speci men Type: BLOOD SPECIMENOrdering Facility: [facility] Address: [address] [place] [address] Result Comment: Test Methodology: Multiplex flow immunoassay. Performed By: #### 2 9374-6, 10926-1, 01110-3, 00807-6, 43815-9, ANAIFR, 28292-1, 67223-5, 78627-2, 81560-3 ####[facility] LABIA [id number] [place] [address] [place] SS-B [facility] 07[facility]07 Sjogrens syndrome-B extractable nuclear Ab Qn (S) <0.2 Normal <1.0 [facility] Comment on above: Order Comment: Speci men Type: BLOOD SPECIMENOrdering Facility: [facility] Address: [address] [place] [address] Result Comment: Anti -SSB (anti-La) antibody is used as an aid in diagnosis of a variety of systemic autoimmune diseases, especially for Sjogren's syndrome and systemic lupus erythematosus. Clinical correlation is required. Test Methodology: Multiplex flow immunoassay. Performed By: #### 2 9374-6, 97561-4, 06087-3, 00389-1, 55289-9, ANAIFR, 94308-3, 69710-7, 42078-3, 39317-7 ####[facility] [id number] [place] [address] [place] Radha-1 extractable nuclear Ab Qn (S)on 07-07-2022 RADHA 1 ANTIBODY QUAL Negative Normal Negative [facility] Comment on above: Order Comment: Speci men Type: BLOOD SPECIMENOrdering Facility: [facility] Address: [address] [place] [address] Result Comment: Anti -RADHA-1 antibody is used as an aid in diagnosis of polymyositis and dermatomyositis especially with pulmonary involvement. A negative result cannot rule out polymyositis or dermatomyositis. Clinical correlation is required. Test Methodology: Multiplex flow immunoassay. Performed By: #### 2 9374-6, 39810-2, 40582-8, 48026-4, 52903-8, ANAIFR, 40084-7, 73311-5, 09449-0, 78492-1 ####[facility] [id number] [place] [address] [place] Ribonucleoprotein extractabl e nuclear Ab Qn (S)on 07-07-2022 ANTI-DRAWER IN [place] QUAL Negative Normal Negative [facility] Comment on above: Order Comment: Davidi betty Type: BLOOD SPECIMENOrdering Facility: [facility] Address: [address] [place] [address] Performed By: #### 2 9374-6, 11865-1, 09223-3, 99517-7, 06151-7, ANAIFR, 36031-4, 17458-5, 66758-8, 83965-6 ####[facility] [id number] [place] [address] [place] RIBOSOMAL DRAWER IN [place] QUAL Negative Normal Negative [facility] Comment on above: Order Comment: Davidi betty Type: BLOOD SPECIMENOrdering Facility: [facility] Address: [address] [place] [address] Result Comment: Anti -Ribosomal RNA (Ribosomal P) antibody is used as an aid in diagnosis of systemic autoimmune diseases especially systemic lupus erythematosus and mixed connective tissue disease. Cross-reactivity with Anti-osborne antibody is not uncommon. Clinical correlation is required. Test Methodology: Multiplex flow immunoassay. Performed By: #### 2 9374-6, 70283-0, 16153-6, 29119-0, 98076-5, ANAIFR, 94866-7, 17113-6, 11056-7, 41128-8 ####[facility] [id number] [place] [id number] [place] SCL-70 extractable nuclear I gG IA Qn (S)on 07-07-2022 SCLERODERMA AB QUAL Negative Normal Negative [facility] Comment on above: Order Comment: Speci men Type: BLOOD SPECIMENOrdering Facility: [facility] Address: [address] [place] [address] Performed By: #### 2 9374-6, 16355-3, 61208-1, 06872-4, 83105-8, ANAIFR, 75372-0, 43792-6, 36421-2, 01746-1 ####[facility] [id number] [address] [place] SCLERODERMA IGG AB <0.2 Normal <1.0 [facility] Comment on above: Order Comment: Speci men Type: BLOOD SPECIMENOrdering Facility: [facility] Address: [address] [place] [address] Result Comment: Scl- 70/Scleroderma antibody test is used as an aid in diagnosis of systemic sclerosis especially the diffuse cutaneous form. A negative result cannot rule out systemic sclerosis. The final interpretation should consider clinical picture and other test results such as anti-centromere antibody. Test Methodology: Multiplex flow immunoassay. Performed By: #### 2 9374-6, 80266-3, 31902-4, 62125-4, 25980-3, ANAIFR, 71516-6, 72646-4, 18972-1, 78253-2 ####[facility] LABIA [id number] [place] [address] [place] [facility] [place] Sjogrens syndrome-A extracta ble nuclear Ab Qn (S)on 07-07-2022 SSA ANTIBODY QUAL Negative Normal Negative [facility] Comment on above: Order Comment: Speci men Type: BLOOD SPECIMENOrdering Facility: [facility] Address: [address] [place] [address] Performed By: #### 2 9374-6, 72233-1, 30627-4, 18668-1, 05217-4, ANAIFR, 33839-3, 78425-7, 87522-4, 04462-4 ####[facility] LABIA [id number] [address] [place] Sjogrens syndrome-B extracta ble nuclear Ab Qn (S)on 07-07-2022 SSB ANTIBODY QUAL Negative Normal Negative [facility] Comment on above: Order Comment: Speci men Type: BLOOD SPECIMENOrdering Facility: [facility] Address: [address] [place] [address] Performed By: #### 2 9374-6, 68727-5, 62689-9, 41413-7, 03123-6, ANAIFR, 11604-9, 28650-1, 13840-5, 27901-5 ####[facility] [id number] [address] [place] Osborne extractable nuclear Ig G Qn (S)on 07-07-2022 SM ANTIBODY QUAL Negative Normal Negative [facility] Comment on above: Order Comment: Speci men Type: BLOOD SPECIMENOrdering Facility: [facility] Address: [address] [place] [address] Result Comment: Anti -Sm (Osborne) antibody is used as an aid in diagnosis of systemic lupus erythematosus and its presence is associated with renal disease. A negative result cannot rule out systemic lupus erythematosus. Clinical correlation is required. Test Methodology: Multiplex flow immunoassay. Performed By: #### 2 9374-6, 82959-0, 75108-3, 12711-5, 96868-6, ANAIFR, 48828-6, 32454-4, 75944-2, 14024-7 ####[facility] [id number] [place] [address] [place] TSH BLDon 07-07-2022 TSH Qn 0.824 m[IU]/L 0.270 - 4.200 mIU/L [facility] TSH SerPl-aCncon 07-07-2022 TSH Qn 0.824 m[IU]/L Normal 0.270-4.200 [facility] Comment on above: Order Comment: Speci men Type: BLOOD SPECIMENOrdering Facility: [facility] Address: [address] [place] [address] Result Comment: If t he patient is , TSH reference range varies by gestational period: First Trimester (weeks 9-12): 0.180-2.990 mIU/L Second Trimester: 0.110-3.980 mIU/L Third Trimester: 0.480-4.710 mIU/L Eliezer Bangura et al. A Practical Approach for the Verifications and Determination of Site- and Trimester-Specific Reference Intervals for Thyroid Function tests in . Thyroid, 2019:29:3:412-420. Rob Forrest, et al. 2017 Guidelines of the [place] [employer] for the Diagnosis and Management of Thyroid Disease during and the . Thyroid, 2017:27:3:315-389. Performed By: #### 3 016-3, 2132-9 ####[facility] LABIA [id number] [place] [address] [place] VITAMIN B12 BLOODon 07-07-20 22 Cobalamin (Vitamin B12) [Mass/Vol] 618 pg/mL 232 - 1,245 pg/mL [facility] Vit B12 SerPl-mCncon 022 Cobalamin (Vitamin B12) [Mass/Vol] 618 pg/mL Normal 232-1245 [facility] Comment on above: Order Comment: Speci men Type: BLOOD SPECIMENOrdering Facility: [facility] Address: [address] [place] [address] Performed By: #### 3 016-3, 2132-9 ####[facility] LABIA [id number] [place] [address] [place] dsDNA Ab Ser IA-aCncon 07-07 DNA double strand Ab IA Qn (S) <12 Normal <30 [facility] Comment on above: Order Comment: Speci men Type: BLOOD SPECIMENOrdering Facility: [facility] Address: [address] [place] [address] Result Comment: Nega tive for ds DNA Antibodies. <30 IU/mL Negative 30-74 IU/mL Equivocal >74 IU/mL Positive Performed By: #### 2 9374-6, 75394-5, 88460-1, 19457-6, 33025-3, ANAIFR, 81647-8, 54533-7, 89122-3, 08642-8 ####[facility] LABCLIA [id number] [address] [place] HLA B 27on 04-26-2022 HLA-B27 Negative Normal [facility] Comment on above: Result Comment: HLA- B*27 Negative B27 allele interpretation for all loci based on IMGT/HLA database version 3.44 This test was developed and its performance characteristics determined by [facility]. It has not been cleared or approved by the Food and Drug Administration. [facility] CLIA ID Number [id number] . This test was performed using PCR (Polymerase Chain Reaction)/SSOP (Sequence Specific Oligonucleotide Probes) technique. SBT (Sequence Based Typing) and/or SSP (Sequence Specific Primers) may be used as supplemental methods when necessary. Please contact [facility] Customer Service at if you have any questions. . Director of [facility] Laboratory Dr Abdiaziz Shook, PhD Performed By: #### C VDAGA #### [facility] [address] [place] [address] Dr. Christos Fallon 25-HYDROXY VIT D (D2+D3 [facility] ) LC/MS-MSon 04-23-2022 25-Hydroxy, Vitamin D 26 ng/mL Critically low [facility] Comment on above: Result Comment: Refe rence Range: All Ages: Target levels 30 - 100 Performed By: #### C MP, TSH, HSTROPN #### [facility] [address] [place] [address] Dr. Christos Fallon 25-Hydroxy, Vitamin D-2 <1.0 Normal [facility] Comment on above: Result Comment: This test was developed and its performance characteristics determined by [facility]. It has not been cleared or approved by the Food and Drug Administration. Performed By: #### C MP, TSH, HSTROPN #### [facility] [address] [place] [address] Dr. Christos Fallon 25-Hydroxy, Vitamin D-3 26 ng/mL Normal [facility] Comment on above: Result Comment: This test was developed and its performance characteristics determined by [facility]. It has not been cleared or approved by the Food and Drug Administration. Performed By: #### C MP, TSH, HSTROPN #### [facility] [address] [place] [address] Dr. Christos Fallon REVERSE T3on 04-20-2022 Reverse T3, Serum 11.2 ng/dL Normal 9.2-24.1 [facility] Comment on above: Result Comment: This test was developed and its performance characteristics determined by [facility]. It has not been cleared or approved by the Food and Drug Administration. Performed By: #### C VDAGA #### [facility] [address] [place] [address] Dr. Christos Fallon THYROID ANTIBODIESon 022 Thyroglobulin Antibody <1.0 Normal 0.0-0.9 [facility] Comment on above: Result Comment: Thyr oglobulin Antibody measured by [employer] Methodology Performed By: #### C VDAGA #### [facility] [address] [place] [address] Dr. Christos Fallon Thyroid Peroxidase (TPO) Ab 11 IU/mL Normal 0-34 [facility] Comment on above: Performed By: #### C VDAGA #### [facility] [address] [place] [address] Dr. Christos Fallon ANTISTREPTOLYSIN O AB (ASO)o n 04-16-2022 Antistreptolysin O Ab 21.8 IU/mL Normal 0.0-200.0 [facility] Comment on above: Performed By: #### C MP, TSH, HSTROPN #### [facility] [address] [place] [address] Dr. Christos Fallon T3, TOTAL (TRIIODOTHYRONINE) on 04-16-2022 T3, TOTAL 115 ng/dL Normal 71-180 [facility] Comment on above: Performed By: #### C MP, TSH, HSTROPN #### [facility] [address] [place] [address] Dr. Christos Fallon FREE T3on 04-14-2022 FREE T3 2.46 pg/mlL Normal 2.18-3.98 [facility] Comment on above: Performed By: #### C MP, TSH, HSTROPN #### [facility] [address] [place] [address] Dr. Christos Fallon FREE T4on 04-14-2022 Free T4 [Mass/Vol] 0.88 ng/dL Normal 0.76-1.46 [facility] Comment on above: Performed By: #### C VDAGA #### [facility] [address] [place] [address] Dr. Christos Fallon TSHon 04-14-2022 TSH 1.027 uIU/mL Normal 0.358-3.740 [facility] Comment on above: Performed By: #### C MP, TSH, HSTROPN #### [facility] [address] [place] [address] Dr. Christos Fallon CBC AUTO DIFFon 03-22-2022 BASO # 0.1 103/ul Normal 0.0-0.1 [facility] Comment on above: Performed By: #### C MP, TSH, HSTROPN #### [facility] [address] [place] [address] Dr. Christos Fallon Basophils/100 WBC (Bld) 0.7 % Normal 0.2-2.0 [facility] Comment on above: Performed By: #### C MP, TSH, HSTROPN #### [facility] [address] [place] [address] Dr. Christos Fallon EO # 0.3 103/ul Normal 0.0-0.7 [facility] Comment on above: Performed By: #### C MP, TSH, HSTROPN #### [facility] [address] [place] [address] Dr. Christos Fallon Eosinophils/100 WBC (Bld) 3.4 % Normal 0.9-7.0 [facility] Comment on above: Performed By: #### C MP, TSH, HSTROPN #### [facility] [address] [place] [address] Dr. Christos Fallon Erythrocyte distribution width (RBC) [Ratio] 12.5 % Normal 11.0-15.0 [facility] Comment on above: Performed By: #### C MP, TSH, HSTROPN #### [facility] [address] [place] [address] Dr. Christos Fallon Hematocrit (Bld) [Volume fraction] 41.3 % Normal 36.0-48.0 [facility] Comment on above: Performed By: #### C MP, TSH, HSTROPN #### [facility] [address] [place] [address] Dr. Christos Fallon Hemoglobin (Bld) [Mass/Vol] 14.2 g/dL Normal 12.0-16.0 [facility] Comment on above: Performed By: #### C MP, TSH, HSTROPN #### [facility] [address] [place] [address] Dr. Christos Fallon IG # 0.03 10e3/ul Normal 0.00-0.03 [facility] Comment on above: Performed By: #### C MP, TSH, HSTROPN #### [facility] [address] [place] [address] Dr. Christos Fallon IG % 0.4 % Normal 0.0-0.5 [facility] Comment on above: Performed By: #### C MP, TSH, HSTROPN #### [facility] [address] [place] [address] Dr. Christos Fallon LYMPH # 2.3 103/ul Normal 1.2-3.8 [facility] Comment on above: Performed By: #### C MP, TSH, HSTROPN #### [facility] [address] [place] [address] Dr. Christos Fallon Lymphocytes/100 WBC (Bld) 31.3 % Normal 20.5-60.0 [facility] Comment on above: Performed By: #### C MP, TSH, HSTROPN #### [facility] [address] [place] [address] Dr. Christos Fallon MANUAL DIFF REQ NO Normal [facility] Comment on above: Performed By: #### C MP, TSH, HSTROPN #### [facility] [address] [place] [address] Dr. Christos Fallon MCH (RBC) [Entitic mass] 34.8 pg Critically high 26.7-34.0 [facility] Comment on above: Performed By: #### C MP, TSH, HSTROPN #### [facility] [address] [place] [address] Dr. Christos Fallon MCHC (RBC) [Mass/Vol] 34.4 g/dL Normal 29.9-35.2 [facility] Comment on above: Performed By: #### C MP, TSH, HSTROPN #### [facility] [address] [place] [address] Dr. Christos Fallon MCV (RBC) [Entitic vol] 101.2 fL Critically high 81.0-99.0 [facility] Comment on above: Performed By: #### C MP, TSH, HSTROPN #### [facility] [address] [place] [address] Dr. Christos Fallon MONO # 0.9 103/ul Critically high 0.3-0.8 [facility] Comment on above: Performed By: #### C MP, TSH, HSTROPN #### [facility] [address] [place] [address] Dr. Christos Fallon Monocytes/100 WBC (Bld) 12.0 % Normal 1.7-12.0 [facility] Comment on above: Performed By: #### C MP, TSH, HSTROPN #### [facility] [address] [place] [address] [address] Christos Fallon NEUT # 3.9 103/ul Normal 1.4-6.5 [facility] Comment on above: Performed By: #### C MP, TSH, HSTROPN #### [facility] [address] [place] [address] Dr. Christos Fallon Neutrophils/100 WBC (Bld) 52.2 % Normal 43.0-75.0 [facility] Comment on above: Performed By: #### C MP, TSH, HSTROPN #### [facility] [address] [place] [address] Dr. Christos Fallon Platelet mean volume (Bld) [Entitic vol] 9.7 fL Normal 9.5-13.5 [facility] Comment on above: Performed By: #### C MP, TSH, HSTROPN #### [facility] [address] [place] [address] [address] Christos Fallon PLT 296 103/ul Normal 150-450 [facility] Comment on above: Performed By: #### C MP, TSH, HSTROPN #### [facility] [address] [place] [address] Dr. Christos Fallon RBC 4.08 106/ul Critically low 4.20-5.40 [facility] Comment on above: Performed By: #### C MP, TSH, HSTROPN #### [facility] [address] [place] [address] Dr. Christos Fallon WBC 7.4 103/ul Normal 4.0-11.0 [facility] Comment on above: Performed By: #### C MP, TSH, HSTROPN #### [facility] [address] [place] [address] HEAD WO CONon [...] PAL WETZEL Date: 2022-03-22 17:41 Normal [facility] ER URINE PROFILEon 2 Bilirubin Ql (U) Negative Normal NEGATIVE [facility] Comment on above: Performed By: #### C VDAGA #### [facility] [address] [place] [address] Dr. Christos Fallon Clarity (U) CLOUDY Abnormal CLEAR [facility] Comment on above: Performed By: #### C VDAGA #### [facility] [address] [place] [address] Dr. Christos Fallon Color (U) LT. YELLOW Normal YELLOW [facility] Comment on above: Performed By: #### C VDAGA #### [facility] [address] [place] [address] Dr. Christos Fallon ERUAHD A micrscopic examination will be performed if indicated. Normal [facility] Comment on above: Performed By: #### C VDAGA #### [facility] [address] [place] [address] Dr. Christos Fallon Glucose Ql (U) Negative Normal NEGATIVE [facility] Comment on above: Performed By: #### C VDAGA #### [facility] [address] [address] [address] Christos Fallon Hemoglobin Ql (U) Negative Normal NEGATIVE [facility] Comment on above: Performed By: #### C VDAGA #### [facility] [address] [address] [address] Christos Fallon Ketones Ql (U) Negative Normal NEGATIVE [facility] Comment on above: Performed By: #### C VDAGA #### [facility] [address] [place] [address] Dr. Christos Fallon LEUKOCYTES Negative Normal NEGATIVE [facility] Comment on above: Performed By: #### C VDAGA #### [facility] [address] [place] [address] Dr. Christos Fallon Nitrite Ql (U) Negative Normal NEGATIVE [facility] Comment on above: Performed By: #### C VDAGA #### [facility] [address] [place] [address] Dr. Christos Fallon pH (U) 6.0 [pH] Normal 5-9 [facility] Comment on above: Performed By: #### C VDAGA #### [facility] [address] [place] [address] Dr. Christos Fallon SPEC GRAVITY 1.010 Normal 1.005-<=1.02 5 [facility] Comment on above: Performed By: #### C VDAGA #### [facility] [address] [place] [address] Dr. Christos Fallon UA PROTEIN Negative Normal NEGATIVE/ TRACE [facility] Comment on above: Performed By: #### C VDAGA #### [facility] [address] [place] [address] Dr. Christos Fallon UR MICRO IND NOT INDICATED Normal [facility] Comment on above: Performed By: #### C VDAGA #### [facility] [address] [place] [address] Dr. Christos Fallon Urobilinogen Qn (U) 0.2 {Peyman'U}/dL Normal 0.2 - 1. 0 [facility] Comment on above: Performed By: #### C VDAGA #### [facility] [address] [place] [address] Dr. Christos Fallon PROF 14(COMP METB)on 022 Albumin [Mass/Vol] 3.6 g/dL Normal 3.4-5.0 [facility] Comment on above: Performed By: #### C MP, HSTROPN, TSH #### [facility] [address] [place] [address] Dr. Christos Fallon Albumin/Globulin [Mass ratio] 0.9 {ratio} Normal [facility] Comment on above: Performed By: #### C MP, HSTROPN, TSH #### [facility] [address] [place] [address] Dr. Christos Fallon ALP [Catalytic activity/Vol] 83 U/L Normal 46-116 [facility] Comment on above: Performed By: #### C MP, HSTROPN, TSH #### [facility] [address] [place] [address] Dr. Christos Fallon ALT [Catalytic activity/Vol] 32 U/L Normal 14-59 [facility] Comment on above: Performed By: #### C MP, HSTROPN, TSH #### [facility] [address] [place] [address] Dr. Christos Fallon Anion gap [Moles/Vol] 15.4 mmol/L Normal [facility] Comment on above: Performed By: #### C MP, HSTROPN, TSH #### [facility] [address] [place] [address] Dr. Christos Fallon AST [Catalytic activity/Vol] 15 U/L Normal 15-37 [facility] Comment on above: Performed By: #### C MP, HSTROPN, TSH #### [facility] [address] [place] [address] Dr. Christos Fallon Bilirubin [Mass/Vol] 0.3 mg/dL Normal 0.2-1.0 [facility] Comment on above: Performed By: #### C MP, HSTROPN, TSH #### [facility] [address] [place] [address] Dr. Christos Fallon Calcium [Mass/Vol] 8.9 mg/dL Normal 8.5-10.1 [facility] Comment on above: Performed By: #### C RAY HSTROPN, TSH #### [facility] [address] [address] [address] Christos Fallon Chloride [Moles/Vol] 102 mmol/L Normal 98-107 [facility] Comment on above: Performed By: #### C RAY HSTROPN, TSH #### [facility] [address] [address] [address] Christos Fallon CO2 [Moles/Vol] 22.7 mmol/L Normal 21.0-32.0 [facility] Comment on above: Performed By: #### C RAY HSTROPN, TSH #### [facility] [address] [address] [address] Christos Fallon Creatinine [Mass/Vol] 0.97 mg/dL Normal 0.55-1.02 [facility] Comment on above: Performed By: #### C RAY HSTROPN, TSH #### [facility] [address] [address] [address] Christos Fallon EGFR-AF MALTESE >60 Normal >=60 [facility] Comment on above: Performed By: #### C RAY HSTROPN, TSH #### [facility] [address] [address] [address] Christos Fallon EGFR-NON AF MALTESE >60 Normal >=60 [facility] Comment on above: Performed By: #### C MP, HSTROPN, TSH #### [facility] [address] [address] [address] Christos Fallon Globulin (S) [Mass/Vol] 3.8 g/dL Normal [facility] Comment on above: Performed By: #### C MP, HSTROPN, TSH #### [facility] [address] [address] [address] Christos Fallon Glucose [Mass/Vol] 104 mg/dL Normal 74-106 [facility] Comment on above: Performed By: #### C MP, HSTROPN, TSH #### [facility] [address] [place] [address] Dr. Christos Fallon Potassium [Moles/Vol] 4.1 mmol/L Normal 3.5-5.1 [facility] Comment on above: Performed By: #### C MP, HSTROPN, TSH #### [facility] [address] [place] [address] Dr. Christos Fallon Protein [Mass/Vol] 7.4 g/dL Normal 6.4-8.2 [facility] Comment on above: Performed By: #### C MP, HSTROPN, TSH #### [facility] [address] [address] [address] Christos Fallon Sodium [Moles/Vol] 136 mmol/L Normal 136-145 [facility] Comment on above: Performed By: #### C MP, HSTROPN, TSH #### [facility] [address] [place] [address] Dr. Christos Fallon Urea nitrogen [Mass/Vol] 17.0 mg/dL Normal 7.0-18.0 [facility] Comment on above: Performed By: #### C MP, HSTROPN, TSH #### [facility] [address] [place] [address] Dr. Christos Fallon Urea nitrogen/Creatinine [Mass ratio] 17.5 mg/mg Normal [facility] Comment on above: Performed By: #### C MP, HSTROPN, TSH #### [facility] [address] [place] [address] Dr. Christos Fallon TROPONIN, HIGH SENSITIVITYon 03-22-2022 HSTROP <4.0 Normal 4.0-51.3 [facility] Comment on above: Result Comment: CUT- OFF POINTS HAVE BEEN ESTABLISHED BASED ON THE FOURTH UNIVERSAL DEFINITIONS OF MYOCARDIAL INFARCTION. THE UPPER REFERENCE LIMIT (URL) OF TROPONIN, DEFINED THE 99TH PERCENTILE OF cTnI DISTRIBUTION IN A REFERENCE POPULATION, HAS BEEN CONFIRMED THE DECISION THRESHOLD FOR [place] DIAGNOSIS. Performed By: #### C MP, HSTROPN, TSH #### [facility] [address] [place] [address] Dr. Christos Fallon TSHon 03-22-2022 TSH 0.854 uIU/mL Normal 0.358-3.740 [facility] Comment on above: Performed By: #### C MP HSTROPN, TSH #### [facility] [address] [place], [place] [address] Dr. Christos Fallon ASYMPTOMATIC COVID-19 ANTIGE Non 03-03-2022 EUA Statement SEE BELOW Normal [facility] Comment [...] sooner. Performed By: #### C VDAGA #### [facility] [address] [place] [address] [address] [address] Christos Fallon SARS-CoV-2 (COVID-19) RNA LEROY+probe Ql (Unsp spec) Positive Critically abnormal NEGATIVE [facility] Comment on above: Result Comment: SARS -CoV-2 antigen present; does not rule out coinfection with other pathogens. Performed By: #### C VDAGA #### [facility] [address] [place], [place] [address] Dr. Christos Fallon [facility]06 SARS-CoV-2 (COVID-19) RNA LEROY+probe Ql (Unsp spec) Detected Critically abnormal NOT DETECTED [facility] Comment on above: Result Comment: This test is not yet approved or cleared by the [place] FDA. When there are no FDA-approved or cleared tests available, and other criteria are met, FDA can make tests available under an emergency access mechanism called an Emergency Use Authorization (EUA). The EUA for this test is supported by the [employer] of Health and Human Service's declaration that [...] By: #### C MP, TSH, HSTROPN #### [facility] [address] [place] [address] Dr. Christos Fallon CRPon 11-25-2021 CRP [Mass/Vol] mg/L Normal <=1.0 [facility] Comment on above: Performed By: #### C MP, TSH, HSTROPN #### [facility] [address] [place] [address] Dr. Christos Fallon VIT B12 AND FOLATEon 022 Cobalamin (Vitamin B12) [Mass/Vol] 329.0 pg/mL Normal 239.0-931.0 [facility] Comment on above: Performed By: #### C MP, TSH, HSTROPN #### [facility] [address] [place] [address] Dr. Christos Fallon FOLATE 8.50 ng/mL Normal >=2.76 [facility] Comment on above: Performed By: #### C MP, TSH, HSTROPN #### [facility] [address] [place] [address] Dr. Christos Fallon CBC AUTO DIFFon 11-19-2021 BASO # 0.1 103/ul Normal 0.0-0.1 [facility] Comment on above: Performed By: #### C BC #### [facility] [address] [place] [address] Dr. Christos Fallon Basophils/100 WBC (Bld) 0.8 % Normal 0.2-2.0 [facility] Comment on above: Performed By: #### C BC #### [facility] [address] [place] [address] Dr. Christos Fallon EO # 0.3 103/ul Normal 0.0-0.7 [facility] Comment on above: Performed By: #### C BC #### [facility] [address] [place] [address] Dr. Christos Fallon Eosinophils/100 WBC (Bld) 4.8 % Normal 0.9-7.0 [facility] Comment on above: Performed By: #### C BC #### [facility] [address] [place] [address] Dr. Christos Fallon Erythrocyte distribution width (RBC) [Ratio] 12.2 % Normal 11.0-15.0 [facility] Comment on above: Performed By: #### C BC #### [facility] [address] [place] [address] Dr. Christos Fallon Hematocrit (Bld) [Volume fraction] 41.9 % Normal 36.0-48.0 [facility] Comment on above: Performed By: #### C BC #### [facility] [address] [place] [address] Dr. Christos Fallon Hemoglobin (Bld) [Mass/Vol] 14.2 g/dL Normal 12.0-16.0 [facility] Comment on above: Performed By: #### C BC #### [facility] [address] [place] [address] Dr. Christos Fallon IG # 0.03 10e3/ul Normal 0.00-0.03 [facility] Comment on above: Performed By: #### C BC #### [facility] [address] [place] [address] Dr. Christos Fallon IG % 0.5 % Normal 0.0-0.5 [facility] Comment on above: Performed By: #### C BC #### [facility] [address] [place] [address] Dr. Christos Fallon LYMPH # 1.5 103/ul Normal 1.2-3.8 [facility] Comment on above: Performed By: #### C BC #### [facility] [address] [place] [address] Dr. Christos Fallon Lymphocytes/100 WBC (Bld) 24.6 % Normal 20.5-60.0 [facility] Comment on above: Performed By: #### C BC #### [facility] [address] [place] [address] Dr. Christos Fallon MANUAL DIFF REQ NO Normal [facility] Comment on above: Performed By: #### C BC #### [facility] [address] [place] [address] Dr. Christos Fallon MCH (RBC) [Entitic mass] 34.3 pg Critically high 26.7-34.0 [facility] Comment on above: Performed By: #### C BC #### [facility] [address] [place] [address] Dr. Christos Fallon MCHC (RBC) [Mass/Vol] 33.9 g/dL Normal 29.9-35.2 [facility] Comment on above: Performed By: #### C BC #### [facility] [address] [place] [address] Dr. Christos Fallon MCV (RBC) [Entitic vol] 101.2 fL Critically high 81.0-99.0 [facility] Comment on above: Performed By: #### C BC #### [facility] [address] [place] [address] Dr. Christos Fallon MONO # 0.5 103/ul Normal 0.3-0.8 [facility] Comment on above: Performed By: #### C BC #### [facility] [address] [place] [address] Dr. Christos Fallon Monocytes/100 WBC (Bld) 7.2 % Normal 1.7-12.0 [facility] Comment on above: Performed By: #### C BC #### [facility] [address] [place] [address] Dr. Christos Fallon NEUT # 3.9 103/ul Normal 1.4-6.5 [facility] Comment on above: Performed By: #### C BC #### [facility] [address] [place] [address] Dr. Christos Fallon Neutrophils/100 WBC (Bld) 62.1 % Normal 43.0-75.0 [facility] Comment on above: Performed By: #### C BC #### [facility] [address] [address] [address] Christos Fallon Platelet mean volume (Bld) [Entitic vol] 9.1 fL Critically low 9.5-13.5 [facility] Comment on above: Performed By: #### C BC #### [facility] [address] [place] [address] Dr. Christos Fallon PLT 301 103/ul Normal 150-450 [facility] Comment on above: Performed By: #### C BC #### [facility] [address] [address] [address] Christos Fallon RBC 4.14 106/ul Critically low 4.20-5.40 [facility] Comment on above: Performed By: #### C BC #### [facility] [address] [place] [address] Dr. Christos Fallon WBC 6.3 103/ul Normal 4.0-11.0 [facility] Comment on above: Performed By: #### C BC #### [facility] [address] [place] [address] Dr. Christos Fallon FREE T3on 11-19-2021 FREE T3 2.72 pg/mlL Critically low 2.77-5.27 [facility] Comment on above: Performed By: #### C MP, TSH, HSTROPN #### [facility] [address] [place] [address] Dr. Christos Fallon FREE T4on 11-19-2021 Free T4 [Mass/Vol] 1.09 ng/dL Normal 0.78-2.19 [facility] Comment on above: Performed By: #### C MP, TSH, HSTROPN #### [facility] [address] [place] [address] Dr. Christos Fallon GLYCOHEMOGLOBIN A1Con 2021 ADA RECOMMENDATION ADA THERAPEUTIC TARG ET 6.0 - 7.0 ACTION SUGGESTED > 7.0 Normal [facility] Comment on above: Performed By: #### A 1C #### [facility] [address] [address] [address] Christos Fallon Glucose [Mass/Vol] 105 mg/dL Normal [facility] Comment on above: Performed By: #### A 1C #### [facility] [address] [place] [address] Dr. Christos Fallon HbA1c (Bld) [Mass fraction] 5.3 % Normal <=6.0 [facility] Comment on above: Performed By: #### A 1C #### [facility] [address] [place] [address] Dr. Christos Fallon LIPID PROFILEon 11-19-2021 CHOL-HDL RATIO NORM SEE BELOW Normal [facility] Comment on above: Result Comment: 3.3 - 4.4 LOW RISK 4.4 - 7.1 AVERAGE RISK 7.1 - 11.0 MODERATE RISK >11.0 HIGH RISK Performed By: #### C MP, TSH, HSTROPN #### [facility] [address] [address] [address] Christos Fallon Cholesterol [Mass/Vol] 232 mg/dL Critically high <=200 [facility] Comment on above: Performed By: #### C MP, TSH, HSTROPN #### [facility] [address] [place] [address] Dr. Christos Fallon Cholesterol in HDL [Mass/Vol] 60 mg/dL Normal 40-60 [facility] Comment on above: Performed By: #### C MP, TSH, HSTROPN #### [facility] [address] [address] [address] Christos Fallon Cholesterol in LDL [Mass/Vol] 134.6 mg/dL Normal [facility] Comment on above: Performed By: #### C MP, TSH, HSTROPN #### [facility] [address] [place] [address] Dr. Christos Fallon Cholesterol.total/Cho lesterol in HDL [Mass ratio] 3.9 {ratio} Normal [facility] Comment on above: Performed By: #### C MP, TSH, HSTROPN #### [facility] [address] [place] [address] Dr. Christos Fallon HDL NORMAL > or = 60 mg/dl - LO W CARDIOVASCULAR RISK <40 mg/dl - HIGH CARDIOVASCULAR RISK Normal [facility] Comment on above: Performed By: #### C MP, TSH, HSTROPN #### [facility] [address] [address] [address] Christos Fallon LDL CALC NORMAL SEE BELOW Normal [facility] Comment on above: Result Comment: <100 mg/dl OPTIMAL 100 - 129 mg/dl NEAR OR ABOVE OPTIMAL 130 - 159 mg/dl BORDERLINE HIGH 160 - 189 mg/dl HIGH >190 mg/dl VERY HIGH Performed By: #### C MP, TSH, HSTROPN #### [facility] [address] [address] [address] Christos Fallon Triglyceride [Mass/Vol] 187 mg/dL Critically high <=150 [facility] Comment on above: Performed By: #### C MP, TSH, HSTROPN #### [facility] [address] [address] [address] Christos Fallon VLDL CALC 37.4 mg/dL Normal [facility] Comment on above: Performed By: #### C MP, TSH, HSTROPN #### [facility] [address] [address] [address] Christos Fallon PROF 14(COMP METB)on 022 Albumin [Mass/Vol] 3.8 g/dL Normal 3.4-5.0 [facility] Comment on above: Performed By: #### C MP, TSH, HSTROPN #### [facility] [address] [address] [address] Christos Fallon Albumin/Globulin [Mass ratio] 1.1 {ratio} Normal [facility] Comment on above: Performed By: #### C MP, TSH, HSTROPN #### [facility] [address] [address] [address] Christos Fallon ALP [Catalytic activity/Vol] 77 U/L Normal 46-116 [facility] Comment on above: Performed By: #### C MP, TSH, HSTROPN #### [facility] [address] [address] [address] Christos Fallon ALT [Catalytic activity/Vol] 34 U/L Normal 14-59 [facility] Comment on above: Performed By: #### C MP, TSH, HSTROPN #### [facility] [address] [address] [address] Christos Fallon Anion gap [Moles/Vol] 11.5 mmol/L Normal [facility] Comment on above: Performed By: #### C MP, TSH, HSTROPN #### [facility] [address] [address] [address] Christos Fallon AST [Catalytic activity/Vol] 21 U/L Normal 15-37 [facility] Comment on above: Performed By: #### C MP, TSH, HSTROPN #### [facility] [address] [address] [address] Christos Fallon Bilirubin [Mass/Vol] 0.7 mg/dL Normal 0.2-1.3 [facility] Comment on above: Performed By: #### C MP, TSH, HSTROPN #### [facility] [address] [address] [address] Christos Fallon Calcium [Mass/Vol] 8.8 mg/dL Normal 8.5-10.1 [facility] Comment on above: Performed By: #### C MP, TSH, HSTROPN #### [facility] [address] [address] [address] Christos Fallon Chloride [Moles/Vol] 104 mmol/L Normal 98-107 [facility] Comment on above: Performed By: #### C MP, TSH, HSTROPN #### [facility] [address] [address] [address] Christos Fallon CO2 [Moles/Vol] 28.6 mmol/L Normal 22.0-30.0 [facility] Comment on above: Performed By: #### C MP, TSH, HSTROPN #### [facility] [address] [address] [address] Christos Fallon Creatinine [Mass/Vol] 0.88 mg/dL Normal 0.52-1.04 [facility] Comment on above: Performed By: #### C MP, TSH, HSTROPN #### [facility] [address] [place] [address] Dr. Christos Fallon EGFR-AF MALTESE >60 Normal >=60 [facility] Comment on above: Performed By: #### C MP, TSH, HSTROPN #### [facility] [address] [place] [address] Dr. Christos Fallon EGFR-NON AF MALTESE >60 Normal >=60 [facility] Comment on above: Performed By: #### C MP, TSH, HSTROPN #### [facility] [address] [place] [address] Dr. Christos Fallon Globulin (S) [Mass/Vol] 3.5 g/dL Normal [facility] Comment on above: Performed By: #### C MP, TSH, HSTROPN #### [facility] [address] [place] [address] Dr. Christos Fallon Glucose [Mass/Vol] 101 mg/dL Normal 74-106 [facility] Comment on above: Performed By: #### C MP, TSH, HSTROPN #### [facility] [address] [place] [address] Dr. Christos Fallon Potassium [Moles/Vol] 4.1 mmol/L Normal 3.4-5.0 [facility] Comment on above: Performed By: #### C MP, TSH, HSTROPN #### [facility] [address] [place] [address] Dr. Christos Fallon Protein [Mass/Vol] 7.3 g/dL Normal 6.1-8.2 [facility] Comment on above: Performed By: #### C MP, TSH, HSTROPN #### [facility] [address] [place] [address] Dr. Christos Fallon Sodium [Moles/Vol] 140 mmol/L Normal 137-145 [facility] Comment on above: Performed By: #### C MP, TSH, HSTROPN #### [facility] [address] [address] [address] Christos Fallon Urea nitrogen [Mass/Vol] 11.0 mg/dL Normal 7.0-18.0 [facility] Comment on above: Performed By: #### C MP, TSH, HSTROPN #### [facility] [address] [address] [address] Christos Fallon Urea nitrogen/Creatinine [Mass ratio] 12.5 mg/mg Normal [facility] Comment on above: Performed By: #### C MP, TSH, HSTROPN #### [facility] [address] [address] [address] Christos Fallon TSHon 11-19-2021 TSH 0.774 uIU/mL Normal 0.470-4.680 [facility] Comment on above: Performed By: #### C MP, TSH, HSTROPN #### [facility] [address] [address] [address] Christos Fallon TSH RANGE SEE BELOW Normal [facility] Comment on above: Result Comment: <0.3 4 UIU/ml HYPERTHYROID 0.34-5.60 UIU/ml EUTHYROID >5.60 UIU/ml HYPOTHYROID Performed By: #### C MP, TSH, HSTROPN #### [facility] [address] [place] [address] Dr. Christos Fallon XR TSPINE 2 VIEWSon [...] TAMIE GUILLERMO Date: 2021-11-19 12:49 Normal [facility] Cardiovascular Lab Reporton 11-17-2021 Cardiovascular Lab Report [facility] Patient Name: Kaila Vasquez [facility] MR #: [id number] Physician: Jonny Fowler M.D. Department of Service Date: 11/17/2021 Medicine Birthdate: 1980 Division of Room #: CC Cardiology Adult Cardiovascular Services [facility] [address] [place] [address] Cardiovascular Laboratory Report PROCEDURE: Implantable loop recorder [...] subcutaneous pocket, into which was deployed a [employer] BioMonitor 3 implantable loop recorder. Via off [...] loop recorder placement. Electronically Signed by: Jonny Fowelr M.D. 11/18/2021 11:08 A Jonny Fowler M.D. Date Dict: 11/17/2021/10:47 A/Jonny Fowler M.D. Date Trans: 11/17/2021 12:41 P/mmo [id number] cc: Mert Lama M.D. [address] [place] [address] A [facility] [id number] Normal [facility] Covid-19 PCR ([facility])on SARS-CoV-2 (COVID-19) RNA LEROY+probe Ql (Unsp spec) Not detected Normal NOT DETECTED [facility] Comment on above: Result Comment: This test is not yet approved or cleared by the [place] FDA. When there are no FDA-approved or cleared tests available, and other criteria are met, FDA can make tests available under an emergency access mechanism called an Emergency Use Authorization (EUA). The EUA for this test is supported by the [place] of Health and Human Service's (HHS's) declaration [...] By: #### C MP, TSH, HSTROPN #### [facility] [address] [place] [address] Dr. Christos Fallon Covid-19 PCR (CVD[facility])on SARS-CoV-2 (COVID-19) RNA LEROY+probe Ql (Unsp spec) Not detected Normal NOT DETECTED [facility] Comment on above: Result Comment: When diagnostic [...] for this test is supported by the [place] of Health and Human Service's declaration that [...] longer be used). Performed By: #### [facility] #### [facility] [address] [address] [address] Christos Fallon Cardiovascular Lab Reporton 06-17-2021 Cardiovascular Lab Report [facility] Patient Name: [facility] MR #: [id number] Physician: Vishal Rogers MD Department of Service Date: 06/17/2021 Medicine Birthdate: 1980 Division of Room #: CC Cardiology Adult Cardiovascular Services [place] [address] Cardiovascular Laboratory Report COMPREHENSIVE EP STUDY AND [...] follows. RFV: 5Fx2 RV/RA/CRD2 His EP Cath: Alexandria Bean/[place], 8Fx2: Pent[employer] changed to [employer] Irrigated [...] same (more content not included)... Normal [facility] FEMUR LEFT 2 [facility] 1 FEMUR LEFT 2 [facility] Department of Radiology [address] [place] [id number] ======== Patient Name: KAILA VASQUEZ : 1980 Sex: F Age: Race: White Pt. 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 Electronically signed: Gelacio Pfeiffer. Transcribed by: [email or web address], User Resident: TAVON BELCHER Electronically Signed by: GELACIO PFEIFFER @ 01/15/2021 12:03 PM I personally read this/these film(s) with this resident Normal [facility] Comment on above: Order Comment: evalu ate Operative Reporton Operative Report MR#: [id number] [facility] Pt. Name: Kaila Vasquez Room #: 0C Discharge 12/05/2020 Date: Birthdate: 1980 OPERATIVE REPORT DATE OF SURGERY: 12/05/2020 SURGEON: Pamella Brennan M.D. PREOPERATIVE DIAGNOSIS: Left distal femur osteochondroma. POSTOPERATIVE DIAGNOSIS: Left distal femur osteochondroma. PROCEDURE PERFORMED: Left distal femur osteochondroma excision. DEEP SEA DIVER: Alaina Edouard M.D. ANESTHESIA: General endotracheal. SPECIMENS: [...] i (more content not included)... Normal [facility] FEMUR LEFT 2 [facility] 1 FEMUR LEFT 2 [facility] Department of Radiology [address] [place] [phone] ======== Patient Name: KAILA VASQUEZ : 1980 Sex: F Age: Race: White Pt. Location: OUTP Patient Status: O Ordered Date: 12/05/2020 7:30:00 AM Completed Date: 12/05/2020 10:05 AM Requesting Provider: PAMELLA BRENNAN Attending Provider: PAMELLA BRENNAN Report Copy To: Signs & Symptoms: LEFT DISTAL FEMUR OSTEOCHONDROMA EXCISION History: Comments: LEFT DISTAL FEMUR OSTEOCHONDROMA EXCISION Exam: FEMUR LEFT 2 [facility] ======== FEMUR LEFT 2 VWS 12/05/2020 10:05 [...] purposes. Electronically signed: Ching Garcia. Transcribed by: [email or web address], User Resident: Electronically Signed by: CHING GARCIA @ 12/05/2020 11:54 AM Normal [facility] Comment on above: Order Comment: LEFT DISTAL FEMUR OSTEOCHONDROMA EXCISION POC GLUCOSE LABon 12-05-2020 Glucose [Mass/Vol] 108 mg/dL High 70-100 [facility] Comment on above: Performed By: #### 8 [id number] ####[facility] *MRSA/MSSA DNA NASALon 11-28 *MRSA/MSSA DNA NASAL Clinical Report: (D ) Specimen: NASAL SWAB Collected: 11/28/2020 13:22 Status: Final Last Updated: 2020 13:05 MSSA DNA (Final) Negative MRSA DNA (Final) Negative Normal [facility] Comment on above: Performed By: #### 3 1595 ####[facility] [place] [address], [facility] APTTon 11-28-2020 aPTT Coag (Bld) [Time] 29.1 s Normal 25.0-35.0 [facility] Comment on above: Result Comment: ALL [...] THIS PURPOSE. Performed By: #### 5 [id number], [id number] #### [facility] [address] [place] [address], [facility] BASIC METABOLIC PANELon 04-2 Calcium [Mass/Vol] 9.5 mg/dL Normal 8.6-10.3 [facility] Comment on above: Performed By: #### 0 0071 #### [facility] [address] [place] [address], [facility] Chloride [Moles/Vol] 104 mmol/L Normal 98-107 [facility] Comment on above: Performed By: #### 0 0071 #### [facility] [address] [place] [address], [place] CO2 [Moles/Vol] 28 mmol/L Normal 21-31 [facility] Comment on above: Performed By: #### 0 0071 #### [facility] [address] [place] [address], [facility] Creatinine [Mass/Vol] 0.90 mg/dL Normal 0.60-1.20 [facility] Comment on above: Performed By: #### 0 0071 #### [facility] [address] [place] [address], [place] GFR/1.73 sq M.predicted among blacks MDRD (S/P/Bld) [Vol rate/Area] mL/min/{1.73_m2} Normal >60 [facility] Comment on above: Performed By: #### 0 0071 #### [facility] [address] GFR/1.73 sq M.predicted among non-blacks MDRD (S/P/Bld) [Vol rate/Area] mL/min/{1.73_m2} Normal >60 [facility] Comment on above: Performed By: #### 0 0071 #### [facility] [address] [place] [address], [facility] Glucose [Mass/Vol] 132 mg/dL High 70-100 [facility] Comment on above: Performed By: #### 0 0071 #### [facility] [address] Potassium [Moles/Vol] 3.8 mmol/L Normal 3.5-5.1 [facility] Comment on above: Performed By: #### 0 0071 #### [facility] [address] Sodium [Moles/Vol] 138 mmol/L Normal 136-145 [facility] Comment on above: Performed By: #### 0 0071 #### [facility] [address] Urea nitrogen [Mass/Vol] 9 mg/dL Normal 7-25 [facility] Comment on above: Performed By: #### 0 0071 #### [facility] [address] CBC W/DIFFon 11-28-2020 ABS IMM GRANS 0.0 10*3/uL Normal 0.0-0.2 [facility] Comment on above: Performed By: #### 5 3 ####[facility] [facility] [place] [address], [facility] ABS NEUTROPHILS 7.2 10*3/uL Normal 1.6-7.6 [facility] Comment on above: Performed By: #### 5 3 ####[facility] [facility] [place] [address], [facility] Basophils (Bld) [#/Vol] 0.1 10*3/uL Normal 0.0-0.2 [facility] Comment on above: Performed By: #### 5 0103 ####[facility] [place] [address], [facility] Basophils/100 WBC (Bld) 0.6 % Normal 0.0-1.0 [facility] Comment on above: Performed By: #### 5 0103 ####[facility] [place] [address], [facility] Eosinophils (Bld) [#/Vol] 0.3 10*3/uL Normal 0.0-0.5 [facility] Comment on above: Performed By: #### 5 3 ####[place] [id number] [facility] [place] [address], [facility] Eosinophils/100 WBC (Bld) 2.6 % Normal 0.0-6.0 [facility] Comment on above: Performed By: #### 3 ####[facility] [facility].[address] Erythrocyte distribution width (RBC) [Ratio] 12.6 % Normal 11.5-15.0 [facility] Comment on above: Performed By: #### 3 ####[facility] [facility] Hematocrit (Bld) [Volume fraction] 42.6 % Normal 36.0-45.0 [facility] Comment on above: Performed By: #### 5 3 ####[facility] [facility] [place] [address], [facility] Hemoglobin (Bld) [Mass/Vol] 14.4 g/dL Normal 12.0-15.0 [facility] Comment on above: Performed By: #### 5 3 ####[facility] IMMATURE GRANS 0.3 % Normal 0.0-1.0 [facility] Comment on above: Performed By: #### 5 0103 ####[facility] Lymphocytes (Bld) [#/Vol] 2.1 10*3/uL Normal 1.2-4.0 [facility] Comment on above: Performed By: #### 5 3 ####[facility] Lymphocytes/100 WBC (Bld) 20.2 % Normal 20.0-45.0 [facility] Comment on above: Performed By: #### 5 102 ####[address] MCH (RBC) [Entitic mass] 33.6 pg High 27.0-33.0 [facility] Comment on above: Performed By: #### 102 ####[place] [id number] MCHC (RBC) [Mass/Vol] 33.8 g/dL Normal 32.0-35.0 [facility] Comment on above: Performed By: #### 3 ####[facility] MCV (RBC) [Entitic vol] 99.5 fL High 82.0-98.0 [facility] Comment on above: Performed By: #### 5 3 ####[place] [address], [facility] Monocytes (Bld) [#/Vol] 0.7 10*3/uL Normal 0.1-1.0 [facility] Comment on above: Performed By: #### 5 3 ####[address] [place] [address], [facility] MONOS 6.4 % Normal 5.0-12.0 [facility] Comment on above: Performed By: #### 5 0103 ####[facility] [place] [address], [facility] Neutrophils/100 WBC (Bld) 69.9 % Normal 40.0-72.0 [facility] Comment on above: Performed By: #### 5 0103 ####[facility] [place] [address], [facility] Nucleated RBC/100 WBC (Bld) [Ratio] 0 % Normal 0-0 [facility] Comment on above: Performed By: #### 5 0103 ####[address] PLAT CNT 346 10*3/uL Normal 150-400 [facility] Comment on above: Performed By: #### 5 0103 ####[facility] [place] [address], [facility] RBC (Bld) [#/Vol] 4.28 10*6/uL Normal 3.80-5.00 [facility] Comment on above: Performed By: #### 5 0103 ####[facility] [place] [address], [facility] WBC (Bld) [#/Vol] 10.24 10*3/uL Normal 4.00-10.60 [facility] Comment on above: Performed By: #### 5 0103 ####[facility] PROTHROMBIN TIMEon 1 INR Coag (PPP) [Relative time] 0.99 {INR} Normal 0.91-1.16 [facility] Comment on above: Result Comment: ACCC [...] CHEST 1995;108:[id number]. Performed By: #### 5 7307, 90725 #### [facility] [address] [place] [address], [facility] PT Coag (PPP) [Time] 13.1 s Normal 12.3-14.8 [facility] Comment on above: Result Comment: ALL RESULTS MUST BE INTERPRETED WITH RESPECT TO BLOOD DRAWING ARTIFACT OR DILUTION ERROR OF ANTICOAGULANT AT THE TIME OF SAMPLING. Performed By: #### 5 7307, [id number] #### [facility] [address] [place] [address], [facility] TYPE AND CROSSMATCHon 2020 ABO INTERPRETATION O Normal [facility] Comment on above: Performed By: #### 6 2594 #### [facility] [address] [facility] [address], [facility] RH INTERPRETATION Positive Normal [facility] Comment on above: Performed By: #### 6 2594 #### [facility] [address] [place] [id number], [facility] URINALYSISon 11-28-2020 Appearance (U) CLEAR Normal CLEAR [facility] Comment on above: Performed By: #### 1 0008 #### [facility] [address] [place] [address], [place] Bilirubin Ql (U) Negative Normal NEGATIVE [facility] Comment on above: Performed By: #### 1 0008 #### [facility] [address] [place] [address], [place] Color (U) YELLOW Normal YELLOW [facility] Comment on above: Performed By: #### 1 0008 #### [facility] [address] [place] [address], [place] Glucose Ql (U) Negative Normal NEGATIVE [facility] Comment on above: Performed By: #### 1 0008 #### [facility] [address] [facility] [address], [place] Hemoglobin Ql (U) Negative Normal NEGATIVE [facility] Comment on above: Performed By: #### 1 0008 #### [facility] [address] [facility] [place] [address], [place] KETONE Negative Normal NEGATIVE [facility] Comment on above: Performed By: #### 1 0008 #### [facility] [address] [facility] [place] [address], [place] LEUK JORDAN Negative Normal NEGATIVE [facility] Comment on above: Performed By: #### 1 0008 #### [facility] [address] [facility] [address], [facility] MICRO NOT DONE Normal [facility] Comment on above: Result Comment: Micr oscopics not performed on urines with negative chemical reactions unless requested in original order Performed By: #### 1 0008 #### [facility] [address] [facility] [address], [place] Nitrite Ql (U) Negative Normal NEGATIVE [facility] Comment on above: Performed By: #### 1 0008 #### [facility] [address] [place] [address], [place] pH (U) 6.0 [pH] Normal 5.0-8.0 [facility] Comment on above: Performed By: #### 1 0008 #### [facility] [address] [place] [address], [facility] Protein Ql (U) Negative Normal NEGATIVE [facility] Comment on above: Performed By: #### 1 0008 #### [facility] [address] [place] [address], [facility] SPEC GRAV 1.018 Normal 1.015-1.020 [facility] Comment on above: Performed By: #### 1 0008 #### [facility] [address] [facility]. [address] Vital Signs Date Time Vital Sign Value Performing Clinician Faci lity 08-24-2022 13:44-0500 Body height 162.6 cm Janell Sy MD Work Phone: [facility] 08-24-2022 13:44-0500 Body weight 112.95 kg Janell Sy MD Work Phone: [facility] 08-24-2022 13:44-0500 Diastolic blood pressure 73 mm[Hg] Janell Sy MD Work Phone: [facility] 08-24-2022 13:44-0500 Heart rate 88 /min Janell Sy MD Work Phone: [facility] 08-24-2022 13:44-0500 SaO2% (BldA) [Mass fraction] 98 % Janell Sy MD Work Phone: [facility] 08-24-2022 13:44-0500 Systolic blood pressure 112 mm[Hg] Janell Sy MD Work Phone: [facility] 08-05-2022 10:00-0500 Diastolic blood pressure 88 mm[Hg] Carmen Johnson PT Work Phone: [facility] 08-05-2022 10:00-0500 Heart rate 78 /min Carmen Johnson PT Work Phone: [facility] 08-05-2022 10:00-0500 Systolic blood pressure 134 mm[Hg] Carmen Johnson PT Work Phone: [facility] 07-07-2022 08:12-0500 Body height 162.6 cm Glenroy Syed [employer] SERVICES SUPERVISOR.HEAD FILTER TANK TENDER HELPER Work Phone: [facility] 07-07-2022 08:12-0500 Body weight 112.04 kg Glenroy Syed J[employer]IT[employer] SERVICES SUPERVISOR.HEAD FILTER TANK TENDER HELPER Work Phone: [facility] 07-07-2022 08:12-0500 Diastolic blood pressure 88 mm[Hg] Glenroy Syed JANITORIAL SERVICES SUPERVISOR.HEAD FILTER TANK TENDER HELPER Work Phone: [facility] 07-07-2022 08:12-0500 Heart rate 82 /min Glenroy Syed J[employer]ITORIAL SERVICES SUPERVISOR.HEAD FILTER TANK TENDER HELPER Work Phone: [facility] 07-07-2022 08:12-0500 SaO2% (BldA) [Mass fraction] 98 % Glenroy Syed JANITORIAL SERVICES SUPERVISOR.HEAD FILTER TANK TENDER HELPER Work Phone: [facility] 07-07-2022 08:12-0500 Systolic blood pressure 134 mm[Hg] Glenroy Syed JANITORIAL SERVICES SUPERVISOR.HEAD FILTER TANK TENDER HELPER Work Phone: [facility] 12-09-2021 13:59-0400 Blood Pressure Location Pamella SANABRIA [facility] [place] 12-09-2021 13:59-0400 Diastolic blood pressure 78 mm[Hg] Pamella SANABRIA [facility] [place] 12-09-2021 13:59-0400 Heart rate 68 /min Pamella ZIMMERMANL [facility] [place] 12-09-2021 13:59-0400 Respiratory rate 16 /min Pamella ZIMMERMANL [facility] [place] 12-09-2021 13:59-0400 Systolic blood pressure 118 mm[Hg] Pamella SANABRIA [facility] [place] Encounters Encounter Date Encounter Type Care Provider Facility Start: 03-06-2024 ambulatory [facility] Start: 01-31-2024 ambulatory [facility] Start: 01-24-2024 ambulatory JONNY [facility] Start: 12-19-2023 End: 12-20-2023 ambulatory Cristiane Willem Gutiérrez Facility:[facility] Start: 12-02-2023 ambulatory [facility] Start: 10-25-2023 End: 10-25-2023 ambulatory IRMA ALCANTARAZIO Not Available Start: 08-25-2023 End: 08-25-2023 ambulatory IRMA HALEY Not Available Start: 10-15-2022 Orders Only Glenroy Syed J[employer]IT[employer] SERVICES SUPERVISOR.HEAD FILTER TANK TENDER HELPER Work Phone: Neurology Comment on above: 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 (Primary Dx) Start: 10-14-2022 End: 10-14-2022 ambulatory GLENROY SYED Facility:[facility] Start: 09-09-2022 ambulatory Mauri Ross RT(R) Ra soto Comment on above: Radiology MRI Start: 09-09-2022 Patient encounter procedure Mauri Ross RT(R) RONALDO EASON Start: 09-02-2022 End: 09-02-2022 ambulatory ELENA GUAN Facility: Start: 08-24-2022 End: 08-24-2022 ambulatory GLENROY SYED Facility:[facility] Start: 08-24-2022 End: 08-24-2022 Patient encounter procedure Janell Sy MD Work Phone: Cardiology Comment on above: AKNG (obstructive sle ep apnea) (Primary Dx); Dizziness; Palpitations; Obesity, morbid, BMI 40.0-49.9 (HCC); SVT (supraventricular tachycardia) (HCC); Chronic fatigue; Vitamin D deficiency Start: 08-20-2022 Orders Only Len Shea J[employer]ORIAL SERVICES SUPERVISOR.HEAD FILTER TANK TENDER HELPER Work Phone: Neurology Comment on above: Ocular migraine (Dinora andres Dx) Start: 08-19-2022 End: 08-19-2022 ambulatory [facility] Neurology Comment on above: Neuro Ophthalmologis t Start: 08-16-2022 ambulatory [facility] Neurology Comment on above: MRI Start: 08-12-2022 End: 08-12-2022 ambulatory GLENROY SYED Facility:[facility] Start: 08-12-2022 End: 08-12-2022 ambulatory Carmen Seese PT Work Phone: Physical Therapy Comment on above: Dizziness (Primary D x); Cervicalgia; Headaches Start: 08-05-2022 End: 08-05-2022 ambulatory GLENROY SYED Facility:[facility] Start: 08-05-2022 End: 08-05-2022 ambulatory Carmen Seese PT Work Phone: Physical Therapy Comment on above: Dizziness (Primary D x); Cervicalgia; Headaches Start: 07-29-2022 End: 07-29-2022 ambulatory WM RODRIGUEZ Facility:[facility] Start: 07-21-[address] MERT LAMA Facilit y:[facility] Start: 07-07-2022 Telephone encounter Glenroy rodriguez J[employer]ITORIAL SERVICES SUPERVISOR.HEAD FILTER TANK TENDER HELPER Work Phone: Neurology Comment on above: Received Outside Med ical Records Start: 07-07-2022 End: 07-07-2022 ambulatory GLENROY SYED Facility:[facility] Start: 07-07-2022 End: 07-07-2022 Patient encounter procedure Glenroy Syed JANITORIAL SERVICES SUPERVISOR.HEAD FILTER TANK TENDER HELPER Work Phone: Neurology Comment on above: Dizziness [...] Patient encounter procedure Pamella SANABRIA [facility] Start: 11-25-2021 End: 11-26-[address] MERT LAMA Facility:[facility] Start: 11-23-2021 Encounter for genera l adult medical examination without abnormal findings DR MERT LAMA [facility] Start: 11-19-2021 End: 11-20-[address] MERT LAMA Facility:[facility] Start: 11-19-2021 End: 11-20-2021 Encounter for general adult medical examination without abnormal findings DR MERT LAMA Facility:[facility] Start: 11-17-2021 End: 11-18-2021 ambulatory MERT LAMA Facility:[facility] Start: 11-14-2021 End: 11-15-2021 ambulatory ANU CABAN Facility:[facility] Start: 10-08-2021 End: 10-08-2021 ambulatory WM RODRIGUEZ Facility:[facility] Start: 06-17-2021 End: 06-18-2021 ambulatory MERT LAMA Facility:[facility] Start: 04-16-2021 End: 05-23-2021 ambulatory MERT LAMA Facility:[facility] Start: 12-05-2020 End: 12-06-2020 ambulatory MERT LAMA Facility:[facility] Procedures Date Procedure Procedure Detail Performing Clinician Start: 08-24-2022 Ecg routine ecg w/le ast 12 lds i&r only [facility] Provider Start: 12-05-2020 ANESTH KNEE AREA SURGERY MERT LAMA Start: 12-05-2020 REMOVE FEMUR LESION CARLOS HAEL P MIKA Start: 11-28-2020 Antibody screen MERT ORTIZ Comment on above: Performed By: #### 6 [id number] #### [facility] [employer]. [address] Start: 11-04-2020 Cystourethroscopy wi th dilation of urethral stricture Pamella DANIELE Abdominal hysterectomy Wale ZIMMERMANWillem Bilateral complete salpingectomy Pamella DANIELE Cardiac radiofrequen cy ablation using ultrasound guidance Pamella DANIELE Cholecystectomy Pamella ZIMMERMANWillem Excision of osteochondroma Nestor SANABRIA History of ankle surgery Carlos ZIMMERMANWillem Plan of Treatment Date Care Activity Detail Author Start: 08-08-2022 DEPRESSION ASSESSMENT DEPRESSION ASS [facility] Start: 07-07-2022 End: 09-06-2022 25-hydroxyvitamin D3 [Mass/volume] in Serum or Plasma [facility] Work Phone: Comment on above: Expected: 07/07/2022 , Expires: 09/06/2022 Start: 07-07-2022 End: 09-06-2022 ESEQUIEL BY IFA WITH REFLEX [facility] Work Phone: Comment on above: Expected: 07/07/2022 , Expires: 09/06/2022 Start: 04-08-2022 Influenza vaccination INFLUENZA (#1) [facility] Start: 08-08-2021 DEPRESSION ASSESSMENT DEPRESSION ASS [facility] Start: 11-05-2020 COVID-19 VACCINE (3 - Booster for Giancralo series) COVID-19 VACCINE (3 - Booster for Giancarlo series) [facility] Start: 2012 HPV TESTING HPV TESTING [facility] Start: 11-30-2003 PAP TESTING PAP TESTING [facility] Start: 2001 Urine microalbumin profile DTA P,TDAP,TD (1 - Tdap) [facility] Start: 2000 HEPATITIS C SCREENING HEPATITIS C SC PARKER [facility] Start: 2000 HIV SCREENING HIV SCREENING [facility] Start: 1982 HEPATITIS B (1 of 3 - 3-dose series) HEPATITIS B (1 of 3 - 3-dose series) [facility] End: 08-24-2023 ECG COMPLETE ECG COMPLETE ECG Routine Dizziness Palpitations Obesity, morbid, BMI 40.0-49.9 (HCC) 1 Occurrences starting 08/24/2022 until 08/24/2023 [facility] Work Phone: Comment on above: 1 Occurrences starti ng 08/24/2022 until 08/24/2023 ECG COMPLETE ECG COMPLETE ECG 08/24/2022 1:56 PM EST [facility] End: 07-07-2023 Echocardiography ECHO Cardiology Routine Palpitations 1 Occurrences starting 07/07/2022 until 07/07/2023 [facility] Work Phone: Comment on above: 1 Occurrences starti ng 07/07/2022 until 07/07/2023 End: 08-06-2023 Mri brain brain stem w/o w/contrast material MRI BRAIN WO/W IVCON Radiology Routine Dizziness Vision changes 1 Occurrences starting 07/07/2022 until 08/06/2023 [facility] Work Phone: Comment on above: 1 Occurrences starti ng 07/07/2022 until 08/06/2023 End: 09-15-2023 Mri spinal canal cervical w/o & w/contr matrl MRI CERVICAL SPINE WO/W IVCON Radiology Routine Dizziness Vision changes Cervicalgia Disturbance of skin sensation 1 Occurrences starting 08/16/2022 until 09/15/2023 [facility] Work Phone: Comment on above: 1 Occurrences starti ng 08/16/2022 until 09/15/2023 [facility] Immunizations Immunization Date Immunization Notes Care Provider Tayo cullen 09-10-2020 SARS-CoV-2 (COVID-19 ) Ad26 vaccine, recombinant Pamella NILL [facility] 08-12-2020 SARS-CoV-2 (COVID-19 ) Ad26 vaccine, recombinant Pamella NILL [facility] Payers Date Payer Category Payer Unknown [id number] 2021 Unknown [id number] 1982 Unknown [id number] 2.16.8 40.1.353715.3.579.2.647 1982 Unknown [id number] 2.16.8 40.1.549805.3.579.2.647 1982 Unknown [id number] 2.16.8 40.1.208207.3.579.2.647 1982 Unknown [id number] 2.16.8 40.1.141915.3.579.2.647 1982 Unknown [id number] 2.16.84 0.1.146419.3.579.2.593 1982 Unknown [id number] 2.16.84 0.1.299210.3.579.2.593 1982 Unknown [id number] 2.16.84 0.1.585358.3.579.2.593 1982 Unknown [id number] 2.16.84 0.1.176902.3.579.2.593 1982 Unknown [id number] 2.16.84 0.1.968180.3.579.2.593 1982 Unknown [id number] 2.16.84 0.1.279035.3.579.2.593 1982 Unknown [id number] 2.16.84 0.1.100739.3.579.2.593 1982 Unknown [id number] 2.16.84 0.1.780495.3.579.2.593 1982 Unknown [id number] 2.16.84 0.1.177190.3.579.2.593 1982 Unknown [id number] 2.16.84 0.1.497659.3.579.2.593 1982 Unknown [id number] 2.16.84 0.1.067294.3.579.2.593 1982 Unknown [id number] 2.16.84 0.1.991389.3.579.2.593 1982 Unknown [id number] 2.16.84 0.1.317860.3.579.2.593 1982 Unknown [id number] 2.16.84 0.1.576708.3.579.2.593 1982 Unknown [id number] 2.16.84 0.1.320438.3.579.2.593 1982 Unknown [id number] 2.16.84 0.1.972666.3.579.2.1259 1982 Unknown [id number] 2.16.84 0.1.848596.3.579.2.1259 1982 Unknown [id number] 2.16.8 40.1.049628.3.579.2.727 1959 Unknown [id number] Social History Date Type Detail Facility Start: 12-09-2021 End: 07-07-2022 Tobacco smoking status Never smoked tobacco (finding) [facility] [place] Tobacco smoking status Never [facility] [place] Sex Assigned At Female [facility] [place] Start: 07-07-2022 Tobacco use and exposure Smokeless tobacco non-user [facility] Start: 1980 Sex Assigned At Not on file [facility] Start: 06-27-2022 End: 07-07-2022 Exposure to SARS-CoV-2 (event) Not sure [facility] Start: 08-24-2022 Alcohol intake Current drinke r of alcohol (finding) [facility] Start: 08-24-2022 Alcohol Comment occasionally 1 -2 times a months 2-3 drinks [facility] Clinical Notes 12-30-2021 to 10-14-2022 Mauri Ross, RT(R) - 09/09/2022 2:11 PM Marilyn Sy MD - 08/24/2022 1:45 PM ESTTelephone Encounter - Glenroy Syed APRN.SARIKA - 08/16/2022 8:28 AM Elio Johnson PT - 08/12/2022 2:51 PM EST Note Date & Type Note Facility 10-14-2022 Note HNO ID: [id number] Author: RT Mary(Matteo) Service: ? Author Type: Technologist Type: Progress [...] RT Mary(R) October 14, 2022 4:55 PM [facility] 10-14-2022 Note HNO ID: [id number] Author: Papa Rea RN Service: Radiology Author [...] DATE: October 14, 2022 TIME: 3:20 PM [facility] 09-09-2022 Note HNO ID: [id number] Author: RT Odessa(Matteo) Service: ? Author Type: Technologist Type: Progress [...] 09, 2022 TIME: 2:11 PM PAGER/CONTACT #: [facility] 09-09-2022 History of Present illness Narrative RADIOLOGY [...] PM PAGER/CONTACT #: documented in this encounter [facility] 08-24-2022 Note HNO ID: [id number] Author: Janell Sy MD Service: ? Author Type: Physician Type: Progress Notes Filed: 08/24/2022 2:17 PM Note Text: [facility] [place] SECTION OF REGIONAL CARDIOLOGY OUTPATIENT VISIT DATE [...] Cardiac work-up includes: Echocardiogram on 05/19/2020 at [facility] showed normal ejection fraction. No [...] ECG COMPLETE 4. Obesity, morbid, BMI 40.0-49.9 ([facility]) E66.01 ECG COMPLETE 5. SVT (supraventricular tachycardia) ([facility]) I47.1 6. Chronic fatigue R53.82 7. [...] PVC (premature ventricular contraction) SVT (supraventricular tachycardia) ([facility]) Vitamin D deficiency No past surgical history on file. Social History Tobacco Use Smoking status: Never Smokeless tobacco: Never Vaping U (more content not included)... [facility] 08-24-2022 History of Present illness Narrative Images from the original note were not included. [facility] [place] SECTION OF REGIONAL CARDIOLOGY OUTPATIENT VISIT DATE [...] Cardiac work-up includes: Echocardiogram on 05/19/2020 at [facility] showed normal ejection fraction. No [...] ECG COMPLETE 4. Obesity, morbid, BMI 40.0-49.9 ([facility]) E66.01 ECG COMPLETE 5. SVT (supraventricular tachycardia) ([facility]) I47.1 6. Chronic fatigue R53.82 7. [...] PVC (premature ventricular contraction) SVT (supraventricular tachycardia) ([facility]) Vitamin D deficiency No past surgical [...] twice daily.^Disp: ^Rfl: documented in this encounter [facility] 08-19-2022 Note HNO ID: [id number] Author: Mauri Chun OD Service: ? Author Type: DEGREASING WHEEL OPERATOR Type: Progress Notes Filed: 08/19/2022 10:22 AM Note Text: Ocular health is unremarkable with no abnormalities. Normal ON appearance Ophthalmic migraines Glasses Rx given with slight prism [facility] 08-16-2022 Miscellaneous Notes signed We can add it to fully evaluate her symptoms. -LP documented in this encounter [facility] 08-12-2022 Note HNO ID: [id number] Author: Carmen Johnson, PT Service: ? Author [...] Therapy: 1: Manual Neck Assessment as above- RIAT tenderness on R reproduces familiar sx. R>L [...] Time Minutes (timed/untimed): 60 Carmen Johnson, PT [facility] 08-12-2022 History of Present illness Narrative Episode [...] Carmen Johnson PT documented in this encounter [facility] 08-05-2022 Note HNO ID: [id number] Author: Carmen Johnson PT Service: ? Author [...] Planned: 8 Planned Treatment Interventions: Therapeutic exercise (19357);Neuromuscular re-education (34905);Manual therapy (40675);Therapeutic activities (67684);Self-correction management (41806);Patient/Family/Caregiver Education;Gait Training (40349);Canalith Repositioning Maneuvers (10877) PLAN FOR NEXT VISIT: Detailed neck exam [...] Premature atrial contra (more content not included)... [facility] 08-05-2022 History of Present illness Narrative Episode [...] Planned: 8 Planned Treatment Interventions: Therapeutic exercise (49588);Neuromuscular re-education (67610);Manual therapy (19429);Therapeutic activities (08862);Self-correction management (76294);Patient/Family/Caregiver Education;Gait Training (60283);Canalith Repositioning Maneuvers (10517) PLAN FOR NEXT VISIT: Detailed neck exam [...] present Head Shake: Negative Positional Testing Right Parrish-Hallpike: No nystagmus;Asymptomatic Left Juan-Hallpike: No nystagmus;Asymptomatic Right [...] Demonstration;Requires Review/Additional Education TREATMENT: PT Treatment Interventions: Self-Fdc Management;Therapeutic Exercise Evaluation Therapeutic Exercise: 1: c/s retractions x 10, cues for technique Skilled Intervention: Patient was educated in proper exercise technique and purpose for exercises. Patient education as noted. Self-Fdc Management: 1: Educated regarding potential multifactorial cause [...] Carmen Johnson PT documented in this encounter [facility] 07-07-2022 Note HNO ID: [id number] Author: Glenroy Syed APRN.HEAD FILTER TANK TENDER HELPER Service: ? Author Type: Nurse Practitioner Type: Progress Notes Filed: 07/07/2022 12:28 PM Note Text: [facility] General Neurology New Patient Evaluation CHIEF COMPLAINT: [...] over a month. She has seen an deburring machine operator and was told she was having occular migraine by her trust and estates attorney. A couple times a month she gets [...] for 1 dose.N (more content not included)... [facility] 07-07-2022 Miscellaneous Notes Noted. Provider notified. Received medical records from [facility]. Uploaded to chart and forwarded for review. documented in this encounter [facility] 07-07-2022 Instructions Glenroy Syed APRN.HEAD FILTER TANK TENDER HELPER - 07/07/2022 9:06 AM EST Plan: Baseline labs MRI Brain for multiple symptoms ECHO for palpitations and arrhythmias Aspirin 81mg daily in the setting of known arrhythmias Consult to VT for dizziness Consult to Cardiology for second opinion Consult to ophthalmology Follow up after testing documented in this encounter [facility] 07-07-2022 History of Present illness Narrative Images from the original note were not included. [facility] General Neurology New Patient Evaluation CHIEF COMPLAINT: [...] over a month. She has seen an deburring machine operator and was told she was having occular migraine by her trust and estates attorney. A couple times a month she gets [...] Finger Abduction (U) 5 Finger Abduction 5 Injection Molding Technician 5 Injection Molding Technician 5 Right Lower Extremity: (of 5) Left [...] over a month. She has seen an deburring machine operator and was told she was having occular migraine by her trust and estates attorney. A couple times a month she gets [...] VT reccommended. Patient wanting second opinion from trust and estates attorney within the [facility], referral placed. Unlikely autonomic dysfunction with unremarkable tilt and orthostatic vitals in office unconvincing (did not take BB today). Additionally, with visual changes, recommended seeing neuro toe pounder. Will obtain additional labs as well. Follow [...] which included preparing to see the patient, [id number] patient care, completing clinical documentation, obtaining and/or reviewing separately obtained history, performing a medically appropriate examination, counseling and educating the patient/family/caregiver, ordering medications, tests, or procedures, and care coordination (not separately reported). Glenroy Syed APRN.CNP [facility] General Neurology [address] [place] [address] Appointment: [phone] In regards to blood work, testing, and radiology reports these are released automatically to the patients. We do not comment on most testing on [employer] in a message or commentary unless there [...] your PCP/referring physician documented in this encounter [facility] 03-16-2022 Note EXAM: CHEST 2 VIEWS HISTORY: [...] symptoms worsen or persist. Electronically authenticated by: YELENACARMEL ANDREW Date: 2022-03-16 18:13 [facility] 12-30-2021 Note The [place], [place] NAME: KAILA VASQUEZ DATE OF : MEDICAL REC#: [id number] PAPER SORTER: [address] [facility], TRANS[facility] DATE: 12/30/2021 09:02:00 TRAFFIC RECORDER DATE: 12/30/2021 21:00 DICTATING PHYSICIAN: PAMELLA SANABRIA [...] IFC Signed and Approved by: DR PAMELLA SANABRAI . 01/06/2022 08:31:00 [facility] Evaluation + Plan note No data available for this section General Surgery [place] Evaluation note Diagnosis Dizziness- Primary Dizziness and giddiness Migraine aura without headache Migraine with aura, without mention of intractable migraine without mention of status migrainosus Palpitations Chronic fatigue Other malaise and fatigue Vision changes Unspecified visual disturbance Disturbance of skin sensation [facility] Dizziness- Primary Dizziness and giddiness Cervicalgia Headaches [facility] Diagnosis Dizziness- Primary Dizziness and giddiness Cervicalgia Headaches [facility] Diagnosis Cervicalgia- Primary Dizziness Dizziness and giddiness Vision changes Unspecified visual disturbance Disturbance of skin sensation [facility] Diagnosis Ocular migraine- Primary Other forms of migraine, without mention of intractable migraine without mention of status migrainosus [facility] Diagnosis KANG (obstructive sleep apnea)- Primary Obstructive sleep apnea (adult) (pediatric) Dizziness Dizziness and giddiness Palpitations Obesity, morbid, BMI 40.0-49.9 (HCC) Morbid obesity SVT (supraventricular tachycardia) ([facility]) Other specified cardiac dysrhythmias Chronic fatigue Other malaise and fatigue Vitamin D deficiency Unspecified vitamin D deficiency [facility] Diagnosis Degeneration of intervertebral disc of cervical region with osteophyte of cervical vertebra- Primary [facility] No data available for this section General Surgery [place] Reason for referral (narrative)* Outpatient Procedure (Routine) - Authorized Specialty Diagnoses / Procedures Referred By Contac t Referred To Contact [facility] Diagnoses Dizziness Palpitations Obesity, morbid, BMI 40.0-49.9 ([facility]) Procedures ECG COMPLETE ECG ROUTINE ECG W/LEAST 12 LDS W/I&R Janell Sy MD [address] [place] [address] [facility] [place] [address] [id number] Referral ID Status Reason Start Date Expiration Date Visits Requested Visits Authorized [id number] Authorized Auto-Generat ed Referral 08/24/2022 08/24/2023 1 1 [facility] Summary Purpose Family History No Family History [...] By Contac t Referred To Contact [facility] [place] Diagnoses Degeneration of intervertebral disc of cervical region with osteophyte of cervical vertebra Procedures CONSULT TO [facility] OFFICE/OUTPATIENT [facility] 60-74 MINUTES Glenroy Syed, JANITORIAL SERVICES SUPERVISOR.HEAD FILTER TANK TENDER HELPER [address] [place] [address] Referral ID Status Reason Start Date Expiration Date Visits Requested Visits Authorized [id number] Authorized PCP Requested Referral 10/15/2022 10/15/2023 1 1 Specialty Diagnoses / Procedures Referred By Contac t Referred To Contact Ophthalmology Diagnoses Ocular migraine Procedures CONSULT TO OPHTHALMOLOGY OFFICE/OUTPATIENT [facility] 60-74 MINUTES Len Shea, JANITORIAL SERVICES SUPERVISOR.HEAD FILTER TANK TENDER HELPER [address] [facility] [id number] [place] [address] Josefina Grimes MD [address] [place] [address] Referral ID Status Reason Start Date Expiration Date Visits Requested Visits Authorized [id number] Authorized PCP Requested Referral 08/20/2022 08/20/2023 1 1 Specialty Diagnoses / Procedures Referred By Contac t Referred To Contact Cardiology Diagnoses Dizziness Palpitations Procedures CONSULT TO CARDIOLOGY OFFICE/OUTPATIENT [facility] 60-74 MINUTES Glenroy Syed, ELISEO.HEAD FILTER TANK TENDER HELPER [address] [place] [address] Referral ID Status Reason Start Date Expiration Date Visits Requested Visits Authorized [id number] Authorized PCP Requested Referral 2 07/07/2023 1 1 Specialty Diagnoses / Procedures Referred By Contac t Referred To Contact MR IMAGING Diagnoses Dizziness Vision changes Procedures MRI BRAIN WO/W IVCON MRI BRAIN BRAIN STEM W/O W/CONTRAST MATERIAL Glenroy Syed APRN.HEAD FILTER TANK TENDER HELPER [id number] [place], [place] [id number] Mr Imaging Referral ID Status Reason Start Date Expiration Date Visits Requested Visits Authorized [id number] Authorized Auto-Generat ed Referral 2 08/21/2022 1 1 Specialty Diagnoses / Procedures Referred By Contac t Referred To Contact Ophthalmology Diagnoses Vision changes Procedures CONSULT TO OPHTHALMOLOGY OFFICE/OUTPATIENT [facility] 60-74 MINUTES Glenroy Syed, JANITORIAL SERVICES SUPERVISOR.HEAD FILTER TANK TENDER HELPER [address] [place] [address] Josefina Grimes MD [address] [id number] Referral ID Status Reason Start Date Expiration Date Visits Requested Visits Authorized [id number] Authorized PCP Requested Referral 2 07/07/2023 1 1 Specialty Diagnoses / Procedures Referred By Contac t Referred To Contact [facility] Diagnoses Palpitations Procedures ECHO ECHO TTHRC R-T 2D W/WOM-MODE COMPL SPEC&COLR D Glenroy Syed, ELISEO.HEAD FILTER TANK TENDER HELPER [address] [id number] [facility] [place] [address] [place] [address] Referral ID Status Reason Start Date Expiration Date Visits Requested Visits Authorized [id number] Authorized Auto-Generat ed Referral 2 07/07/2023 1 1 Additional Source Comments INFORMATION SOURCE (unrecogn ized section and content) DATE CREATED AUTHOR 11/24/2021 [facility] DATE CREATED AUTHOR AUTHOR'S ORGANIZ ATION [facility]/20/2022 [facility] DATE CREATED AUTHOR AUTHOR'S ORGANIZ ATION 09/06/2022 [facility] DATE CREATED AUTHOR AUTHOR'S ORGANIZ ATION 10/16/2022 [facility] [place] DATE CREATED AUTHOR AUTHOR'S ORGANIZ ATION 10/26/2023 [facility] DATE CREATED AUTHOR AUTHOR'S ORGANIZ ATION 01/04/2024 [facility] DATE CREATED AUTHOR AUTHOR'S ORGANIZ ATION 03/09/2024 [facility] Source Comments (unrecognize d section and content) In the event this informatio n is protected by the Federal Confidentiality of Alcohol and Drug Abuse Patient Records regulations: The Federal rules restrict any use of the information to criminally investigate or prosecute any alcohol or drug abuse patient.[facility] the event this information is protected by the Federal Confidentiality of Alcohol and Drug Abuse Patient Records regulations: The Federal rules restrict any use of the information to criminally investigate or prosecute any alcohol or drug abuse patient.[facility] the event this information is protected by the Federal Confidentiality of Alcohol and Drug Abuse Patient Records regulations: The Federal rules restrict any use of the information to criminally investigate or prosecute any alcohol or drug abuse patient.[facility] the event this information is protected by the Federal Confidentiality of Alcohol and Drug Abuse Patient Records regulations: The Federal rules restrict any use of the information to criminally investigate or prosecute any alcohol or drug abuse patient.[facility] the event this information is protected by the Federal Confidentiality of Alcohol and Drug Abuse Patient Records regulations: The Federal rules restrict any use of the information to criminally investigate or prosecute any alcohol or drug abuse patient.[facility] the event this information is protected by the Federal Confidentiality of Alcohol and Drug Abuse Patient Records regulations: The Federal rules restrict any use of the information to criminally investigate or prosecute any alcohol or drug abuse patient.[facility] the event this information is protected by the Federal Confidentiality of Alcohol and Drug Abuse Patient Records regulations: The Federal rules restrict any use of the information to criminally investigate or prosecute any alcohol or drug abuse patient.[facility] the event this information is protected by the Federal Confidentiality of Alcohol and Drug Abuse Patient Records regulations: The Federal rules restrict any use of the information to criminally investigate or prosecute any alcohol or drug abuse patient.[facility] the event this information is protected by the Federal Confidentiality of Alcohol and Drug Abuse Patient Records regulations: The Federal rules restrict any use of the information to criminally investigate or prosecute any alcohol or drug abuse patient.[facility] the event this information is protected by the Federal Confidentiality of Alcohol and Drug Abuse Patient Records regulations: The Federal rules restrict any use of the information to criminally investigate or prosecute any alcohol or drug abuse patient.[facility] Reason for Visit (unrecogniz ed section and [...] NEW RS PT VESTIBULAR DIZZY Glenroy Syed, JANITORIAL SERVICES SUPERVISOR.HEAD FILTER TANK TENDER HELPER [address] [place] [address] Carmen Johnson, PT [address] [place] [address] Referral ID Status Reason Start Date Expiration Date Visits Re quested Visits Authorized [id number] Closed 08/08/2021 08/07/2022 30 30 Reason Comments Physical Therapy Specialty Diagnoses / Procedures Referred By Contac t Referred To Contact PHYSICAL THERAPY Diagnoses Dizziness Procedures Physical Therapy Glenroy Syed, JANITORIAL SERVICES SUPERVISOR.HEAD FILTER TANK TENDER HELPER [id number] [place] [address] [address] [facility] [address] [place] [address] Referral ID Status Reason Start Date Expiration Date V isits Requested Visits Authorized [id number] Pending Review 08/12/2022 11/10/2022 1 1 Reason Comments Establish Care Palpitations Dizziness Specialty Diagnoses / Procedures Referred By Contac t Referred To Contact Cardiology Diagnoses Dizziness Palpitations Procedures CONSULT TO CARDIOLOGY OFFICE/OUTPATIENT NEW HIGH MDM 60-74 MINUTES Glenroy Syed, JANITORIAL SERVICES SUPERVISOR.HEAD FILTER TANK TENDER HELPER [id number] [place] [address] Referral ID Status Reason Start Date Expiration Date V isits Requested Visits Authorized [id number] Closed PCP Requested Referral 07/07/2022 07/07/2023 1 1 Reason Comments Radiology MRI Care Teams (unrecognized sec tion and content) Six Pack Loader Operator Relationship Specialty Start Date End Date Mert Lama MD [address] [place] [address] Referring Family Medicine 06/10/22 Six Pack Loader Operator Relationship Specialty Start Date End Date Mert Lama MD [address] [place] [address] Referring Family Medicine 06/10/22 Six Pack Loader Operator Relationship Specialty Start Date End Date Mert Lama MD [address] [place] [address] Referring Family Medicine 06/10/22 Six Pack Loader Operator Relationship Specialty Start Date End Date Mert Lama MD [address] [place] [address] Referring Family Medicine 06/10/22 Six Pack Loader Operator Relationship Specialty Start Date End Date Mert Lama MD [address] [place] [address] Referring Family Medicine 06/10/22 Six Pack Loader Operator Relationship Specialty Start Date End Date Mert Lama MD [address] [place] [address] Referring Family Medicine 06/10/22 Six Pack Loader Operator Relationship Specialty Start Date End Date Mert Lama MD [address] [place] [address] Referring Family Medicine 06/10/22 Six Pack Loader Operator Relationship Specialty Start Date End Date Mert Lama MD [address] [place] [address] Referring Family Medicine 06/10/22 FOR RECORDS PERTAINING TO PATIENTS WHO [...] BE BASED ON THE PRIMARY CLINICAL RECORDS. [facility]. provides no warranty or guarantee of the accuracy or completeness of information in this document.
[2024-03-13 06:56] VITALS: BP 111/79; PULSE 76; TEMP 36.2; O2SAT 96
[2024-03-13] MEDS: 0.9 % SODIUM CHLORIDE 500 ML IV (07:03)
[2024-03-13] MEDS: BUPIVACAINE HCL 0.25% PF 25 MG/10 ML VIAL 4 ML INJ (07:42)
[2024-03-13] MEDS: METHYLPREDNISOLONE ACETATE 40 MG/ML VIAL INJ (07:42)
[2024-03-13 07:43] VITALS: BP 108/74; PULSE 78; TEMP 36.6; O2SAT 98
[2024-03-13] MEDS: LIDOCAINE HCL 2% 400 MG/20 ML MDV 5 ML INJ (07:43)
[2024-03-13 07:46] VITALS: BP 113/73; PULSE 76; TEMP 36.6; O2SAT 98
--- NOTE | 2024-03-13 07:57 | W.PM.PROCNOT ---
Date of procedure: 03/13/24 Pre-op diagnosis: Lumbar spondylosis Post-op diagnosis: same as pre-op Procedure: Left Lumbar 4/5, 5/sacral 1 Radiofrequency ablation Under fluoroscopic guidance Rhizotomy was created using radio frequency ablation at 80?C for 90 seconds 1 to 2 lesions created at each site. Post lesioning injection of 2 mL each of 0.25% Marcaine and 2% lidocaine with Depo-Medrol 40mg. 0.5 to 1 mL injected at each site IV in place yes If Intravenous fluids: NS at KVO Anesthesia local 2% lidocaine for Anesthesia Other: MAC Timeout process compliant After informed consent obtained.Patient brought to the procedure room placed in the prone position skin overlying the area was prepped and draped in a sterile fashion using betadine. 25 gauge needle was used to create a skin wheal over each of the targeted areas utilizing 2% lidocaine. A rhizotomy needle with a 10 mm active tip was inserted over each of the anesthetized areas and directed towards each of the medial branches accomplished under fluoroscopic guidance. after encountering the same we had positive sensory stimulation, negative motor stimulation was noted. lesions were then created. Post lesioning, steroid solution was injected needles removed. Patient was transferred to recovery room in stable condition to be discharged home after meeting criteria. Anesthesia: MAC Surgeon: Pedro Mccormick Condition: stable
== END 2024-03-13 08:11 | disposition home or self-care (01) ==
LOC: SURGOUT 06:38
PROVIDERS: PCP Family Medicine; Visit Provider Anesthesiology Pain Medicine
DX: M47.816 Spondylosis without myelopathy or radiculopathy, lumbar region (principal)
CPT/HCPCS: 64635; 64636; J0665; J1010; J2250; J2704

== ENCOUNTER 2024-03-27 06:57 | Day surgery (SDC) | payer BC, SELFPAY ==
--- OUTSIDE RECORDS SUMMARY | 2024-03-27 06:59 | XMS_ITS | CCD ---
Author Organization [facility] Care Team Providers Care Manager Reimbursement Name Role Phone MERT LAMA Referring Unavailable PAMELLA BRENNAN Attending Unavailable MIKA, PAMELLA Ang Surgeon Unavailable PAMELLA BRENNAN Admitting Unavailable CA Procedure Practitioner Unavailab MERT Caban Primary Care [...] Attending Unavailable MERT LAMA Primary Care Physician [phone] Mert Lama MD Unavailable DANIEL, DR MERT [...] in NaCl (PF) 0.9% 10 mL injection (DEFINCitySwag) (10 sources) Start: 07-07-20 End: 10-06-19 24 [...] Comment on above: Take 1 capsule by [facility] once daily. 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#1.0 0TIFF Normal [facility] RAD - MRI Report [id number]#1.00 TIFF Normal [facility] Physician Orderon 12-22-2023 Physician Order [id number]#1.00 TIFF Normal [facility] Provider Letteron 12-21-2023 Provider Letter December 21, 2023 [place] [address] : 1980 To Whom It May Concern, Please excuse above patient from work. Date of Illness: From: 12/19/2023 To: 12/21/2023 May Return to Work On: 12/22/2023 Sincerely, [place] [address] Normal [facility] Lab Reportson 12-20-2023 Lab Reports [id number]#1.00 TIFF Normal [facility] Physician Orderon 12-20-2023 Physician Order [id number]#1.00 TIFF [facility] RAD - MISCon 12-20-2023 RAD - MISC [id number] 03 [id number]#1.00 TIFF [facility] Ambulatory Visit Summaryon 0 12-19-2023 Ambulatory [...] 40.0-44.9, adult Non-smoker Pickup at [facility]/pharmacy #6177 New meloxicam (meloxicam 15 mg Tab) 1 Tablets By Mouth Every day Low back pain with sciatica BMI 40.0-44.9, adult [facility] New methylPREDNISolone (Medrol 4 mg Tab) 1 Packets By Mouth As Directed Low back pain with sciatica BMI 40.0-44.9, adult Non-smoker Duration: 6 Days as directed on package labeling Pickup at [facility]/pharmacy #6177 Unchanged metoprolol (Metoprolol tartrate 50 mg Tab) 1 Tablets By Mouth 2 times a day [facility] [address], [place] [id number] [phone] Medications and Immunizations Administered Given ketorolac 30 [...] for choosing us for your care. 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 Had x-ray done at [facility] for spine over a year or [...] spasm, 20 cap(s), Refill(s) 0, [facility]/pharmacy #6177, 165.1, cm, 12/19/23 13:17:00 EDT, Height/Length Dosing, 114.6, kg, 12/19/23 13:17:00 EDT, Weight Dosing ketorolac, 30 mg = 1 mL, Injection, IntraMuscular, Once, Stop date 12/19/23 13:35:00 EDT, Routine, Start date 12/19/23 13:35:00 EDT, 12/19/23 13:35:00 EDT meloxicam, 15 mg = 1 tab(s), Oral, Daily, # 30 tab(s), Refills(s) 0, Pharmacy: [facility]/pharmacy #6177, 165.1, cm, 12/19/23 13:17:00 EDT, Height/Length Dosing, 114.6, kg, 12/19/23 13:17:00 EDT, Weight Dosing methylPREDNISolone, = 1 packet(s), Oral, As Directed, as directed on package labeling, X 6 day(s), # 21 tab(s), Refills(s) 0, Pharmacy: [facility]/pharmacy #6177, 165.1, cm, 12/19/23 13:17:00 [...] 30 tab(s), Refills(s) 0, Pharmacy: [facility]/pharmacy #6177, 165.1, cm, 12/19/23 13:17:00 EDT, Height/Length Dosing, 114.6, kg, 12/19/23 13:17:00 EDT, Weight Dosing methylPREDNISolone, = 1 packet(s), Oral, As Directed, as directed on package labeling, X 6 day(s), # 21 tab(s), Refills(s) 0, Pharmacy: [facility]/pharmacy #6177, 165.1, cm, 12/19/23 13:17:00 EDT, Height/Length Dosing, 114.6, kg, 12/19/23 13:17:00 EDT, Weight Dosing 3. Non-smoker (Z78.9: Other specified health status) continue not smoking Ordered: cyclobenzaprine, 15 mg, 1 cap(s), Oral, Bedtime for spasm, 20 cap(s), Refill(s) 0, [facility], 165.1, cm, 12/19/23 13:17:00 EDT, Height/Length Dosing, 114.6, kg, 12/19/23 13:17:00 EDT, Weight Dosing ketorolac, 30 mg = 1 mL, Injection, IntraMuscular, Once, Stop date 12/19/23 13:35:00 EDT, Routine, Start date 12/19/23 13:35:00 EDT, 12/19/23 13:35:00 EDT meloxicam, 15 mg = 1 tab(s), Oral, Daily, # 30 tab(s), Refills(s) 0, Pharmacy: [facility]/pharmacy #6177, 165.1, cm, 12/19/23 13:17:00 EDT, Height/Length Dosing, 114.6, kg, 12/19/23 13:17:00 EDT, Weight Dosing methylPREDNISolone, = 1 packet(s), Oral, As Directed, as directed on package labeling, X 6 day(s), # 21 tab(s), Refills(s) 0, Pharmacy: [facility]/pharmacy #6177, 165.1, cm, 12/19/23 13:17:00 EDT, Height/Length Dosing, 114.6, kg, 12/19/23 13:17:00 EDT, Weight Dosing Follow-up No qualifying data available Problem List/Past Medical History Ongoing Anemia Anxiety (more content not included)... [facility] Comment on above: Result Comment: Elec tronically Signed By: Cristiane Brasher.br\Date and Time Signed: 12/19/23 13:59 EDT Physician Orderon 12-19-2023 Physician Order [id number]#1.00 TIFF [facility] Consultation Noteon 02-15-20 Consultation Note [id number]#1.0 0CD:127 [facility] Consultation Noteon 02-05-20 Consultation Note [id number]#1.0 0CD:127 [facility] Comment on above: Other Comment: INCOM PLETE FAX.NDW Formson 02-02-2023 Forms [id number]#1.0 0CD:127 [facility] Consultation Noteon 01-29-20 Consultation Note [id number]#1.00 CD:127 [facility] Cardiovascular Reporton 01-06 Cardiovascular Report [id number]#1.0 0CD:127 [facility] MRI BRAIN WO/W IVCONon 10-14 MRI [...] cord. No mass or pathologic intradural enhancement. Pipe Connector: NARCISO Transcribe Date/Time: Oct 14 2022 8:43P Dictated by : UNIQUE ANDRESON MD This examination was interpreted and the report reviewed and electronically signed by: UNIQUE ANDERSON MD on Oct 14 2022 8:51PM EST [id number] Normal [facility] MRI CERVICAL SPINE WO/W IVCO Non [...] cord. No mass or pathologic intradural enhancement. Pipe Connector: NARCISO Transcribe Date/Time: Oct 14 2022 8:43P Dictated by : UNIQUE ANDERSON MD This examination was interpreted and the report reviewed and electronically signed by: UNIQUE ANDERSON MD on Oct 14 2022 8:51PM EST [id number] Normal [facility] CBC AUTO DIFFon 09-02-2022 BASO # 0.1 103/ul Normal 0.0-0.1 [facility] Comment on above: Performed By: #### C MP, TSH, HSTROPN #### [facility] [address] [place] [address] Dr. Christos Fallon Basophils/100 WBC (Bld) 0.5 % Normal 0.2-2.0 [facility] Comment on above: Performed By: #### C MP, TSH, HSTROPN #### [facility] [address] [address] [address] Christos Fallon EO # 0.2 103/ul Normal 0.0-0.7 [facility] Comment on above: Performed By: #### C MP, TSH, HSTROPN #### [facility] [address] [place] [address] Dr. Christos Fallon Eosinophils/100 WBC (Bld) 2.3 % Normal 0.9-7.0 [facility] Comment on above: Performed By: #### C MP, TSH, HSTROPN #### [facility] [address] [place] [address] Dr. Christos Fallon Erythrocyte distribution width (RBC) [Ratio] 13.0 % Normal 11.0-15.0 [facility] Comment on above: Performed By: #### C MP, TSH, HSTROPN #### [facility] [address] [place] [address] Dr. Christos Fallon Hematocrit (Bld) [Volume fraction] 43.0 % Normal 36.0-48.0 [facility] Comment on above: Performed By: #### C MP, TSH, HSTROPN #### [facility] [address] [place] [address] Dr. Christos Fallon Hemoglobin (Bld) [Mass/Vol] 13.9 g/dL Normal 12.0-16.0 [facility] Comment on above: Performed By: #### C MP, TSH, HSTROPN #### [facility] [address] [place] [address] Dr. Christos Fallon IG # 0.03 10e3/ul Normal 0.00-0.03 [facility] Comment on above: Performed By: #### C MP, TSH, HSTROPN #### [facility] [address] [place] [address] Dr. Christos Fallon IG % 0.3 % Normal 0.0-0.5 [facility] Comment on above: Performed By: #### C MP, TSH, HSTROPN #### [facility] [address] [place] [address] Dr. Christos Fallon LYMPH # 2.8 103/ul Normal 1.2-3.8 [facility] Comment on above: Performed By: #### C MP, TSH, HSTROPN #### [facility] [address] [place] [address] Dr. Christos Fallon Lymphocytes/100 WBC (Bld) 29.6 % Normal 20.5-60.0 [facility] Comment on above: Performed By: #### C MP, TSH, HSTROPN #### [facility] [address] [place] [address] Dr. Christos Fallon MANUAL DIFF REQ NO Normal [facility] Comment on above: Performed By: #### C MP, TSH, HSTROPN #### [facility] [address] [place] [address] Dr. Christos Fallon MCH (RBC) [Entitic mass] 34.8 pg Critically high 26.7-34.0 [facility] Comment on above: Performed By: #### C MP, TSH, HSTROPN #### [facility] [address] [place] [address] Dr. Christos Fallon MCHC (RBC) [Mass/Vol] 32.3 g/dL Normal 29.9-35.2 [facility] Comment on above: Performed By: #### C MP, TSH, HSTROPN #### [facility] [address] [place] [address] Dr. Christos Fallon MCV (RBC) [Entitic vol] 107.5 fL Critically high 81.0-99.0 [facility] Comment on above: Performed By: #### C MP, TSH, HSTROPN #### [facility] [address] [place] [address] Dr. Christos Fallon MONO # 0.7 103/ul Normal 0.3-0.8 [facility] Comment on above: Performed By: #### C MP, TSH, HSTROPN #### [facility] [address] [place] [address] Dr. Christos Fallon Monocytes/100 WBC (Bld) 7.7 % Normal 1.7-12.0 [facility] Comment on above: Performed By: #### C MP, TSH, HSTROPN #### [facility] [address] [place] [address] Dr. Christos Fallon NEUT # 5.7 103/ul Normal 1.4-6.5 [facility] Comment on above: Performed By: #### C MP, TSH, HSTROPN #### [facility] [address] [place] [address] Dr. Christos Fallon Neutrophils/100 WBC (Bld) 59.6 % Normal 43.0-75.0 [facility] Comment on above: Performed By: #### C MP, TSH, HSTROPN #### [facility] [address] [address] [address] Christos Fallon Platelet mean volume (Bld) [Entitic vol] 9.9 fL Normal 9.5-13.5 [facility] Comment on above: Performed By: #### C MP, TSH, HSTROPN #### [facility] [address] [address] [address] Christos Fallon PLT 309 103/ul Normal 150-450 [facility] Comment on above: Performed By: #### C MP, TSH, HSTROPN #### [facility] [address] [address] [address] Christos Fallon RBC 4.00 106/ul Critically low 4.20-5.40 [facility] Comment on above: Performed By: #### C MP, TSH, HSTROPN #### [facility] [address] [address] [address] Christos Fallon WBC 9.6 103/ul Normal 4.0-11.0 [facility] Comment on above: Performed By: #### C MP, TSH, HSTROPN #### [facility] [address] [address] [address] Christos Fallon D-DIMERon 09-02-2022 D-DIMER 0.28 mg/L FEU Normal <=0.59 [facility] Comment on above: Performed By: #### C MP, TSH, HSTROPN #### [facility] [address] [address] [address] Christos Fallon D-DIMER COMMENTS SEE BELOW Normal [facility] Comment on above: Result Comment: [...] By: #### C MP, TSH, HSTROPN #### [facility] [address] [place] [address] Dr. Christos Fallon PROF 14(COMP METB)on 023 Albumin [Mass/Vol] 3.8 g/dL Normal 3.4-5.0 [facility] Comment on above: Performed By: #### C MP, TSH, HSTROPN #### [facility] [address] [place] [address] Dr. Christos Fallon Albumin/Globulin [Mass ratio] 1.2 {ratio} Normal [facility] Comment on above: Performed By: #### C MP, TSH, HSTROPN #### [facility] [address] [place] [address] Dr. Christos Fallon ALP [Catalytic activity/Vol] 85 U/L Normal 46-116 [facility] Comment on above: Performed By: #### C MP, TSH, HSTROPN #### [facility] [address] [place] [address] Dr. Christos Fallon ALT [Catalytic activity/Vol] 39 U/L Normal 14-59 [facility] Comment on above: Performed By: #### C MP, TSH, HSTROPN #### [facility] [address] [place] [address] Dr. Christos Fallon Anion gap [Moles/Vol] 16.3 mmol/L Normal [facility] Comment on above: Performed By: #### C MP, TSH, HSTROPN #### [facility] [address] [place] [address] Dr. Christos Fallon AST [Catalytic activity/Vol] 19 U/L Normal 15-37 [facility] Comment on above: Performed By: #### C MP, TSH, HSTROPN #### [facility] [address] [place] [address] Dr. Christos Fallon Bilirubin [Mass/Vol] 0.4 mg/dL Normal 0.2-1.0 [facility] Comment on above: Performed By: #### C MP, TSH, HSTROPN #### [facility] [address] [place] [address] Dr. Christos Fallon Calcium [Mass/Vol] 9.2 mg/dL Normal 8.5-10.1 [facility] Comment on above: Performed By: #### C MP, TSH, HSTROPN #### [facility] [address] [place] [address] Dr. Christos Fallon Chloride [Moles/Vol] 101 mmol/L Normal 98-107 [facility] Comment on above: Performed By: #### C MP, TSH, HSTROPN #### [facility] [address] [place] [address] Dr. Christos Fallon CO2 [Moles/Vol] 24.9 mmol/L Normal 21.0-32.0 [facility] Comment on above: Performed By: #### C MP, TSH, HSTROPN #### [facility] [address] [place] [address] Dr. Christos Fallon Creatinine [Mass/Vol] 0.83 mg/dL Normal 0.55-1.02 [facility] Comment on above: Performed By: #### C MP, TSH, HSTROPN #### [facility] [address] [place] [address] Dr. Christos Fallon EGFR-AF SALVADOREAN >60 Normal >=60 [facility] Comment on above: Performed By: #### C MP, TSH, HSTROPN #### [facility] [address] [place] [address] Dr. Christos Fallon EGFR-NON AF SALVADOREAN >60 Normal >=60 [facility] Comment on above: Performed By: #### C MP, TSH, HSTROPN #### [facility] [address] [place] [address] Dr. Christos Fallon Globulin (S) [Mass/Vol] 3.2 g/dL Normal [facility] Comment on above: Performed By: #### C MP, TSH, HSTROPN #### [facility] [address] [address] [address] Christos Fallon Glucose [Mass/Vol] 142 mg/dL Critically high 74-106 [facility] Comment on above: Performed By: #### C MP, TSH, HSTROPN #### [facility] [address] [address] [address] Christos Fallon Potassium [Moles/Vol] 3.2 mmol/L Critically low 3.5-5.1 [facility] Comment on above: Performed By: #### C MP, TSH, HSTROPN #### [facility] [address] [place] [address] Dr. Christos Fallon Protein [Mass/Vol] 7.0 g/dL Normal 6.4-8.2 [facility] Comment on above: Performed By: #### C MP, TSH, HSTROPN #### [facility] [address] [place] [address] Dr. Christos Fallon Sodium [Moles/Vol] 139 mmol/L Normal 136-145 [facility] Comment on above: Performed By: #### C MP, TSH, HSTROPN #### [facility] [address] [address] [address] Christos Fallon Urea nitrogen [Mass/Vol] 10.0 mg/dL Normal 7.0-18.0 [facility] Comment on above: Performed By: #### C MP, TSH, HSTROPN #### [facility] [address] [place] [address] Dr. Christos Fallon Urea nitrogen/Creatinine [Mass ratio] 12.0 mg/mg Normal [facility] Comment on above: Performed By: #### C MP, TSH, HSTROPN #### [facility] [address] [place] [address] Dr. Christos Fallon PROTIMEon 09-02-2022 INR Coag (PPP) [Relative time] {INR} Normal [facility] Comment on above: Performed By: #### C MP, TSH, HSTROPN #### [facility] [address] [place] [address] Dr. Christos Fallon INR GUIDELINES SEE BELOW Normal [facility] Comment on above: Result Comment: GUALBERTO RED INR: 2.0 - 3.0 CONDITIONS NOT LISTED BELOW 2.5 - 3.5 FOR PROSTHETIC HEART VALVE REPLACEMENT 2.5 - 3.5 RECURRENT THROMBOSIS Performed By: #### C MP, TSH, HSTROPN #### [facility] [address] [place] [address] Dr. Christos Fallon PT Coag (PPP) [Time] 9.7 s Normal 9.0-11.6 [facility] Comment on above: Performed By: #### C MP, TSH, HSTROPN #### [facility] [address] [place] [address] Dr. Christos Fallon PTTon 09-02-2022 aPTT Coag (Bld) [Time] 25.9 s Normal 22.3-36.2 [facility] Comment on above: Performed By: #### C MP, TSH, HSTROPN #### [facility] [address] [place] [address] Dr. Christos Fallon TROPONIN, HIGH SENSITIVITYon 09-02-2022 HSTROP <4.0 Normal 4.0-51.3 [facility] Comment on above: Result Comment: CUT- OFF POINTS HAVE BEEN ESTABLISHED BASED ON THE FOURTH UNIVERSAL DEFINITIONS OF MYOCARDIAL INFARCTION. THE UPPER REFERENCE LIMIT (URL) OF TROPONIN, DEFINED THE 99TH PERCENTILE OF cTnI DISTRIBUTION IN A REFERENCE POPULATION, HAS BEEN CONFIRMED THE DECISION THRESHOLD FOR DC DIAGNOSIS. Performed By: #### C MP, TSH, HSTROPN #### [facility] [address] [place] [address] Dr. Christos Fallon TSHon 09-02-2022 TSH 0.813 uIU/mL Normal 0.358-3.740 [facility] Comment on above: Performed By: #### C MP, TSH, HSTROPN #### [facility] [address] [place] [address] Dr. Christos Fallon XR CHEST 1 Von [...] by: LEEANNE MON Date: 2022-09-02 15:09 [facility] ) KAILA VASQUEZ ([id number]) 1980 F Date Time Provider Department 08/24/22 2:00 PM JANELL SY During your visit today, we recorded the following information about you: Pulse Blood pressure Weight Height 88/minute 112/73 112.9 kg 1.626 m Janell Sy MD 08/24/2022 2:17 PM Signed [facility] [place] SECTION OF REGIONAL CARDIOLOGY OUTPATIENT VISIT DATE [...] Cardiac work-up includes: Echocardiogram on 05/19/2020 at [facility] showed normal ejection fraction. No valvular [...] 4. Obesity, morbid, BMI 40.0-49.9 ([facility]) E66.01 ECG COMPLETE 5. SVT (supraventricular tachycardia) ([facility]) I47.1 6. Chronic fatigue R53.82 7. [...] apnea) Palpitatio (more content not included)... Normal [facility] ECG COMPLETEon 08-24-2022 ECG COMPLETE Ventricular Rate : 8 4 BPM Atrial Rate : 84 BPM P-R Interval : 166 ms QRS Duration : 92 ms Q-T Interval : 358 ms QTC Calculation(Bazett) : 423 ms Calculated P [place] : 60 degrees Calculated R [place] : 45 degrees Calculated T [place] : 45 degrees NORMAL SINUS RHYTHM INCREASED R/S RATIO IN V1, CONSIDER EARLY TRANSITION OR POSTERIOR INFARCT ABNORMAL ECG Confirmed by MEERA BOYD M.D. ([id number]) on 08/28/2022 3:03:10 PM NAME : KAILA VASQUEZ PID : [id number] : 1980 Gender : Female Race : ORD : [id number] Procedure Date : Aug 24 2022 13:56:02 [...] JANELL SY Acquired by : Jose browning [facility] CNTHERAPYon 08-12-2022 CNTHERAPY OT/PT/Speech Visit (PTAMCF) CHRISTINAKAILA SHELLEY Emily ([id number]) 1980 F Date Time Provider Department 08/12/22 2:45 PM SEJALSE CARMEN [facility] Date Time Provider Department Center 08/12/2022 2:45 PM [id number], KARA [facility] Reason for Visit: Physical Therapy [503] [...] % (flush) 10 mL (BD POSIFLUSH) Normal [facility] CNTHERAPYon 08-05-2022 CNTHERAPY OT/PT/Speech Visit (PTAMCF) KAILA VASQUEZ ([id number]) 1980 F Date Time Provider Department 08/05/22 9:15 AM CARMEN JOHNSON [facility] Date Time Provider Department Center 08/05/2022 9:15 AM [id number], KARA [facility] [place] [facility] Reason for Visit: PT Eval [747] [...] % (flush) 10 mL (BD POSIFLUSH) Normal [facility] Covid-19 PCR (CVDTB)on 07-09 SARS-CoV-2 (COVID-19) RNA LEROY+probe Ql (Unsp spec) Not detected Normal NOT DETECTED [facility] Comment on above: Result Comment: When diagnostic [...] for this test is supported by the Ginger Farmer of Health and Human Service's declaration that [...] used). Performed By: #### C VDAGA #### [facility] [address] [place] [address] Dr. Christos Fallon 25(OH)D3 [facility] 2021 25-hydroxyvitamin D3 [Mass/Vol] 15.8 ng/mL Low 31.0-80.0 [facility] Comment on above: Order Comment: Speci men Type: BLOOD SPECIMENOrdering Facility: [facility] Address: [address] [place] [address] Result Comment: Clas sification of 25 [place] Vitamin D status: Deficiency/Insufficiency: < or = 30 ng/ml. Sufficiency/Optimal Levels: 31-80 ng/mL Toxicity: > 100 ng/mL. Test performed by chemiluminescent immunoassay. Performed By: #### 1 989-3 ####[facility] [id number] [place] [address] [place] ESEQUIEL BY IFA WITH REFLEXon ESEQUIEL PATTERN Nuclear fine speckled Normal Cl [facility] Comment on above: Order Comment: Speci men Type: BLOOD SPECIMENOrdering Facility: [facility] Address: [address] [place] [address] Performed By: #### 2 9374-6, 31240-4, 51025-5, 41516-5, 53214-3, ANAIFR, 97050-7, 11327-8, 67840-2, 45641-0 ####[facility] [id number] [place] [address] [place] ESEQUIEL TITER 1:160 Normal [facility] Comment on above: Order Comment: Speci men Type: BLOOD SPECIMENOrdering Facility: [facility] Address: [address] [id number] Performed By: #### 2 9374-6, 22610-7, 78295-9, 36517-5, 49378-5, ANAIFR, 87357-4, 53471-1, 79438-0, 86790-7 ####[facility] [id number] [place] [place] [address] [place] Nuclear Ab IF (S) [Titer] Positive Abnormal Negative [facility] Comment on above: Order Comment: Speci men Type: BLOOD SPECIMENOrdering Facility: [facility] Address: [address] [place], [place] [address] Result Comment: Anti -nuclear antibody test is used as an aid in diagnosis of systemic autoimmune diseases. Where positive and clinically warranted, follow-up using disease-specific testing is recommended. Low positive titers are not uncommon with advanced age, certain chronic infections, and malignancies among others. Test methodology: Indirect fluorescence immunoassay (IFA) using HEp-2 cells. Performed By: #### 2 9374-6, 24057-9, 02665-7, 44130-7, 21660-2, ANAIFR, 79572-2, 19300-1, 52991-5, 03420-7 ####[facility] LABCLIA [id number] [address] [address] [place] Basic metabolic 2000 panelon 07-07-2022 Anion gap [Moles/Vol] 13 mmol/L Normal 9-18 [facility] Comment on above: Order Comment: Speci men Type: BLOOD SPECIMENOrdering Facility: [facility] Address: [address] [id number] Performed By: #### 2 4321-2 ####[facility] LABCLIA [id number] [place] [address] [place] Calcium [Mass/Vol] 9.3 mg/dL Normal 8.5-10.2 [facility] Comment on above: Order Comment: Speci men Type: BLOOD SPECIMENOrdering Facility: [facility] Address: [address] [address] Performed By: #### 2 4321-2 ####[facility] LABCLIA [id number] [place] [address] [place] Chloride [Moles/Vol] 102 mmol/L Normal 97-105 [facility] Comment on above: Order Comment: Speci men Type: BLOOD SPECIMENOrdering Facility: [facility] Address: [address] [address] Performed By: #### 2 4321-2 ####[facility] LABCLIA [id number] [place] [address] [place] CO2 [Moles/Vol] 23 mmol/L Normal 22-30 [facility] Comment on above: Order Comment: Speci men Type: BLOOD SPECIMENOrdering Facility: [facility] Address: [address] [place] [address] Performed By: #### 2 4321-2 ####[facility] LABCLIA [id number] [place] [address] [place] Creatinine [Mass/Vol] 0.72 mg/dL Normal 0.58-0.96 [facility] Comment on above: Order Comment: Speci men Type: BLOOD SPECIMENOrdering Facility: [facility] Address: [address] [place] [address] Performed By: #### 2 4321-2 ####[facility] LABCLIA [id number] [place] [address] [place] ESTIMATED GLOMERULAR FILTRATION RATE 109 mL/min/1.73m??? Normal >=60 [facility] Comment on above: Order Comment: Speci men Type: BLOOD SPECIMENOrdering Facility: [facility] Address: [address] [place] [address] Result Comment: Dina mated Glomerular Filtration Rate [...] actual GFR. Performed By: #### 2 4321-2 ####[facility] LABCLIA [id number] [place] [address] [place] Glucose [Mass/Vol] 98 mg/dL Normal 74-99 [facility] Comment on above: Order Comment: Speci men Type: BLOOD SPECIMENOrdering Facility: [facility] Address: [address] [place] [address] Result Comment: The [place] Diabetes Association (ADA) provides guidance for cutoff [...] Standards of Medical Care in Diabetes 2016, [place] [employer]. Diabetes Care. 2016.39(Suppl 1). Performed By: #### 2 4321-2 ####[facility] LABCLIA [id number] [place] [address] [place] Potassium [Moles/Vol] 4.1 mmol/L Normal 3.7-5.1 [facility] Comment on above: Order Comment: Speci men Type: BLOOD SPECIMENOrdering Facility: [facility] Address: [address] [place], [place] [address] Performed By: #### 2 4321-2 ####[facility] LABCLIA [id number] [place] [address] [place] Sodium [Moles/Vol] 138 mmol/L Normal 136-144 [facility] Comment on above: Order Comment: Speci men Type: BLOOD SPECIMENOrdering Facility: [facility] Address: [address] [address] Performed By: #### 2 4321-2 ####[facility] LABCLIA [id number] [place] [address] [place] Urea nitrogen [Mass/Vol] 8 mg/dL Normal 7-21 [facility] Comment on above: Order Comment: Speci men Type: BLOOD SPECIMENOrdering Facility: [facility] Address: [address] [address] Performed By: #### 2 4321-2 ####[facility] LABCLIA [id number] [place] [address] [place] Anion gap [Moles/Vol] 13 mmol/L 9 - 18 mmol/L [facility] Calcium [Mass/Vol] 9.3 mg/dL 8.5 - 10. 2 mg/dL [facility] Chloride [Moles/Vol] 102 mmol/L 97 - 10 5 mmol/L [facility] CO2 [Moles/Vol] 23 mmol/L 22 - 30 mmol/L [facility] Creatinine [Mass/Vol] 0.72 mg/dL 0.58 - 0.96 mg/dL [facility] Estimated Glomerular Filtration Rate 109 mL/min/1.73m >=60 mL/min/1.73m [facility] Glucose [Mass/Vol] 98 mg/dL 74 - 99 mg/dL [facility] Potassium [Moles/Vol] 4.1 mmol/L 3.7 - 5.1 mmol/L [facility] Sodium [Moles/Vol] 138 mmol/L 136 - 144 mmol/L [facility] Urea nitrogen [Mass/Vol] 8 mg/dL 7 - 21 mg/dL [facility] CBC W Auto Differential pane l (Bld)on 07-07-2022 Basophils (Bld) [#/Vol] 0.04 10*3/uL Normal <0.11 [facility] Comment on above: Order Comment: Speci men Type: BLOOD SPECIMENOrdering Facility: [facility] Address: [address] [address] Performed By: #### 5 7021-8 ####[facility] LABCLIA [id number] [place] [address] [place] Basophils/100 WBC (Bld) 0.5 % Normal [facility] Comment on above: Order Comment: Speci men Type: BLOOD SPECIMENOrdering Facility: [facility] Address: [address] [place] [address] Performed By: #### 5 7021-8 ####[facility] LABCLIA [id number] [place] [address] [place] Differential cell count method Nom (Bld) Auto Normal [facility] Comment on above: Order Comment: Speci men Type: BLOOD SPECIMENOrdering Facility: [facility] Address: [address] [place] [address] Performed By: #### 5 7021-8 ####[facility] LABCLIA [id number] [place] [address] [place] Eosinophils (Bld) [#/Vol] 0.29 10*3/uL Normal <0.46 [facility] Comment on above: Order Comment: Speci men Type: BLOOD SPECIMENOrdering Facility: [facility] Address: [address] [place] [address] Performed By: #### 5 7021-8 ####[facility] LABCLIA [id number] [place] [address] [place] Eosinophils/100 WBC (Bld) 3.9 % Normal [facility] Comment on above: Order Comment: Speci men Type: BLOOD SPECIMENOrdering Facility: [facility] Address: [address] [place] [address] Performed By: #### 5 7021-8 ####[facility] LABCLIA [id number] [place] [address] [place] Erythrocyte distribution width (RBC) [Ratio] 12.1 % Normal 11.5-15.0 [facility] Comment on above: Order Comment: Speci men Type: BLOOD SPECIMENOrdering Facility: [facility] Address: [address] [place] [address] Performed By: #### 5 7021-8 ####[facility] LABCLIA [id number] [place] [address] [place] Hematocrit (Bld) [Volume fraction] 43.5 % Normal 36.0-46.0 [facility] Comment on above: Order Comment: Speci men Type: BLOOD SPECIMENOrdering Facility: [facility] Address: [address] [place] [address] Performed By: #### 5 7021-8 ####[facility] LABIA [id number] [place] [address] [place] Hemoglobin (Bld) [Mass/Vol] 14.9 g/dL Normal 11.5-15.5 [facility] Comment on above: Order Comment: Speci men Type: BLOOD SPECIMENOrdering Facility: [facility] Address: [address] [place] [address] Performed By: #### 5 7021-8 ####[facility] LABIA [id number] [place] [address] [place] Immature granulocytes (Bld) [#/Vol] 0.03 10*3/uL Normal <0.10 [facility] Comment on above: Order Comment: Speci men Type: BLOOD SPECIMENOrdering Facility: [facility] Address: [address] [place] [address] Performed By: #### 5 7021-8 ####[facility] LABCLIA [id number] [place] [address] [place] Immature granulocytes/100 WBC (Bld) 0.4 % Normal [facility] Comment on above: Order Comment: Speci men Type: BLOOD SPECIMENOrdering Facility: [facility] Address: [address] [place] [address] Performed By: #### 5 7021-8 ####[facility] LABCLIA [id number] [place] [address] [place] Lymphocytes (Bld) [#/Vol] 1.71 10*3/uL Normal 1.00-4.00 [facility] Comment on above: Order Comment: Speci men Type: BLOOD SPECIMENOrdering Facility: [facility] Address: [address] [place] [address] Performed By: #### 5 7021-8 ####[facility] LABCLIA [id number] [place] [address] [place] Lymphocytes/100 WBC (Bld) 23.2 % Normal [facility] Comment on above: Order Comment: Speci men Type: BLOOD SPECIMENOrdering Facility: [facility] Address: [address] [place] [address] Performed By: #### 5 7021-8 ####[facility] LABCLIA [id number] [place] [address] [place] MCH (RBC) [Entitic mass] 34.1 pg High 26.0-34.0 [facility] Comment on above: Order Comment: Speci men Type: BLOOD SPECIMENOrdering Facility: [facility] Address: [address] [place] [address] Performed By: #### 5 7021-8 ####[facility] LABCLIA [id number] [place] [address] [place] MCHC (RBC) [Mass/Vol] 34.3 g/dL Normal 30.5-36.0 [facility] Comment on above: Order Comment: Speci men Type: BLOOD SPECIMENOrdering Facility: [facility] Address: [address] [address] Performed By: #### 5 7021-8 ####[facility] LABCLIA [id number] [place] [address] [place] MCV (RBC) [Entitic vol] 99.5 fL Normal 80.0-100.0 [facility] Comment on above: Order Comment: Speci men Type: BLOOD SPECIMENOrdering Facility: [facility] Address: [address] [address] Performed By: #### 5 7021-8 ####[facility] LABIA [id number] [place] [address] [place] Monocytes (Bld) [#/Vol] 0.57 10*3/uL Normal <0.87 [facility] Comment on above: Order Comment: Speci men Type: BLOOD SPECIMENOrdering Facility: [facility] Address: [address] [address] Performed By: #### 5 7021-8 ####[facility] LABIA [id number] [place] [address] [place] Monocytes/100 WBC (Bld) 7.7 % Normal [facility] Comment on above: Order Comment: Speci men Type: BLOOD SPECIMENOrdering Facility: [facility] Address: [address] Performed By: #### 5 7021-8 ####[facility] LABIA [id number] [place] [address] [place] Neutrophils (Bld) [#/Vol] 4.73 10*3/uL Normal 1.45-7.50 [facility] Comment on above: Order Comment: Speci men Type: BLOOD SPECIMENOrdering Facility: [facility] Address: [address] [place], [place] [address] Performed By: #### 5 7021-8 ####[facility] LABCLIA [id number] [place] [address] [place] Neutrophils/100 WBC (Bld) 64.3 % Normal [facility] Comment on above: Order Comment: Speci men Type: BLOOD SPECIMENOrdering Facility: [facility] Address: [address] [place] [address] Performed By: #### 5 7021-8 ####[facility] LABIA [id number] [place] [address] [place] Nucleated RBC (Bld) [#/Vol] 10*3/uL Normal <0.01 [facility] Comment on above: Order Comment: Speci men Type: BLOOD SPECIMENOrdering Facility: [facility] Address: [address] [place] [address] Performed By: #### 5 7021-8 ####[facility] LABIA [id number] [place] [address] [place] Nucleated RBC/100 WBC (Bld) [Ratio] 0.0 /100 WBC Normal [facility] Comment on above: Order Comment: Speci men Type: BLOOD SPECIMENOrdering Facility: [facility] Address: [address] [place] [address] Performed By: #### 5 7021-8 ####[facility] LABIA [id number] [place] [address] [place] Platelet mean volume (Bld) [Entitic vol] 9.6 fL Normal 9.0-12.7 [facility] Comment on above: Order Comment: Speci men Type: BLOOD SPECIMENOrdering Facility: [facility] Address: [address] [place] [address] Performed By: #### 5 7021-8 ####[facility] LABIA [id number] [place] [address] [place] Platelets (Bld) [#/Vol] 277 10*3/uL Normal 150-400 [facility] Comment on above: Order Comment: Speci men Type: BLOOD SPECIMENOrdering Facility: [facility] Address: [address] [place] [address] Performed By: #### 5 7021-8 ####[facility] LABCLIA [id number] [place] [address] [place] [facility] [place] RBC (Bld) [#/Vol] 4.37 10*6/uL Normal 3.90-5.20 [facility] Comment on above: Order Comment: Speci men Type: BLOOD SPECIMENOrdering Facility: [facility] Address: [address] [place] [address] Performed By: #### 5 7021-8 ####[facility] LABCLIA [id number] [place] [address] [place] WBC (Bld) [#/Vol] 7.37 10*3/uL Normal 3.70-11.00 [facility] Comment on above: Order Comment: Speci men Type: BLOOD SPECIMENOrdering Facility: [facility] Address: [address] [place] [address] Performed By: #### 5 7021-8 ####[facility] LABCLIA [id number] [place] [address] [place] Basophils (Bld) [#/Vol] 0.04 10*3/uL <0.11 k/uL [facility] Basophils/100 WBC (Bld) 0.5 % [facility] Differential cell count method Nom (Bld) Auto [facility] Eosinophils (Bld) [#/Vol] 0.29 10*3/uL <0.46 k/uL [facility] Eosinophils/100 WBC (Bld) 3.9 % [facility] Erythrocyte distribution width (RBC) [Ratio] 12.1 % 11.5 - 15.0 % [facility] Hematocrit (Bld) [Volume fraction] 43.5 % 36.0 - 46.0 % [facility] Hemoglobin (Bld) [Mass/Vol] 14.9 g/dL 11.5 - 15.5 g/dL [facility] Immature granulocytes (Bld) [#/Vol] 0.03 10*3/uL <0.10 k/uL [facility] Immature granulocytes/100 WBC (Bld) 0.4 % [facility] Lymphocytes (Bld) [#/Vol] 1.71 10*3/uL 1.00 - 4.00 k/uL [facility] Lymphocytes/100 WBC (Bld) 23.2 % [facility] MCH (RBC) [Entitic mass] 34.1 pg High 26.0 - 34.0 pg [facility] MCHC (RBC) [Mass/Vol] 34.3 g/dL 30.5 - 36.0 g/dL [facility] MCV (RBC) [Entitic vol] 99.5 fL 80.0 - 100.0 fL [facility] Monocytes (Bld) [#/Vol] 0.57 10*3/uL <0.87 k/uL [facility] Monocytes/100 WBC (Bld) 7.7 % [facility] Neutrophils (Bld) [#/Vol] 4.73 10*3/uL 1.45 - 7.50 k/uL [facility] Neutrophils/100 WBC (Bld) 64.3 % [facility] Nucleated RBC (Bld) [#/Vol] <0.01 k/uL [facility] Nucleated RBC/100 WBC (Bld) [Ratio] 0.0 /100 WBC [facility] Platelet mean volume (Bld) [Entitic vol] 9.6 fL 9.0 - 12.7 fL [facility] Platelets (Bld) [#/Vol] 277 10*3/uL 150 - 400 k/uL [facility] RBC (Bld) [#/Vol] 4.37 10*6/uL 3.90 - 5.2 0 m/uL [facility] WBC (Bld) [#/Vol] 7.37 10*3/uL 3.70 - 11. 00 k/uL [facility] CNOVon 07-07-2022 CNOV Office Visit ([facility] ) KAILA VASQUEZ ([id number]) 1980 F Date Time Provider Department 07/07/22 8:00 AM GLENROY SYED During your visit today, we recorded the following information about you: Pulse Blood pressure Weight Height 82/minute 134/88 112 kg 1.626 m Glenroy Syed APRN.BREAKER TENDER 07/07/2022 12:28 PM Signed [facility] Neurology New Patient Evaluation CHIEF COMPLAINT: [...] over a month. 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 A couple times a month she [...] tobacco: Never (more content not included)... Normal [facility] CNPNon 07-07-2022 CNPN Telephone ([facility]) KAILA VASQUEZ ([id number]) 1980 F Date Time Provider Department 07/07/22 GLENROY SYED NEVÍCTORFV During your visit today, we recorded the following information about you: Cinthya Salgado 07/07/2022 8:52 AM Signed Received medical records from [facility]. Uploaded to chart and forwarded for review. Kajal Gillespie RN 07/07/2022 9:14 AM Signed Noted. Provider notified. Allergies As of Date: 07/07/2022 (Not on File) Date Reviewed: 07/07/2022 Reviewed by: Elaine Bolaños Ma - Fully Assessed Reason for Visit: Received Outside Medical Records [5084] Prescriptions as of 07/19/2022 - metoprolol tartrate, short acting, (LOPRESSOR) 50 mg tablet metoprolol tartrate 50 mg tablet Facility-Administered Medications as of 07/19/2022 - perflutren lipid microspheres 1.3 mL in NaCl (PF) 0.9% 10 mL injection (DEFINITY) - sodium chloride 0.9 % (flush) 10 mL (BD POSIFLUSH) Problem List As Of Date: 07/07/2022 (None) Encounter Status:Closed by CINTHYA SALGADO on 07/19/22 Normal [facility] Centromere Ab IF Ql (S)on Centromere Ab Qn (S) <0.2 Normal <1.0 [facility] Comment on above: Order Comment: Speci men Type: BLOOD SPECIMENOrdering Facility: [facility] Address: [address] [place] [address] Result Comment: Anti -centromere antibody is used as in aid in diagnosis of systemic sclerosis. Clinical correlation is required. Test Methodology: Multiplex flow immunoassay. Performed By: #### 2 9374-6, 24193-6, 60858-0, 43147-3, 35630-7, ANAIFR, 49779-4, 33958-8, 35124-1, 53939-2 ####[facility] LABCLIA [id number] [place] [address] [place] CENTROMERE AB QUAL Negative Normal Negative [facility] Comment on above: Order Comment: Speci men Type: BLOOD SPECIMENOrdering Facility: [facility] Address: [address] [place] [address] Performed By: #### 2 9374-6, 48110-1, 22802-2, 89970-7, 18761-3, ANAIFR, 63122-9, 13925-9, 31644-8, 21868-6 ####[facility] LABCLIA [id number] [place] [address] [place] Chromatin Ab Qnon 07-07-2022 CHROMATIN AB QUAL Negative Normal Negative [facility] Comment on above: Order Comment: Speci men Type: BLOOD SPECIMENOrdering Facility: [facility] Address: [address] [place] [address] Performed By: #### 2 9374-6, 89790-0, 78819-9, 60675-8, 74714-7, ANAIFR, 60533-7, 52914-2, 35480-5, 07413-8 ####[facility] LABCLIA [id number] [place] [address] [place] Chromatin Ab SerPl-aCncon Chromatin Ab Qn <0.2 Normal <1.0 [facility] Comment on above: Order Comment: Speci men Type: BLOOD SPECIMENOrdering Facility: [facility] Address: [address] [place] [address] Result Comment: Test Methodology: Multiplex flow immunoassay. Performed By: #### 2 9374-6, 09869-5, 04716-6, 72324-0, 91436-1, ANAIFR, 90472-9, 58682-6, 97063-8, 74852-1 ####[facility] LABCLIA [id number] [place] [address] [place] KAMRAN Jo1 Ab Ser-aCncon 2021 Radha-1 extractable nuclear Ab Qn (S) <0.2 Normal <1.0 [facility] Comment on above: Order Comment: Speci men Type: BLOOD SPECIMENOrdering Facility: [facility] Address: [address] [place] [address] Performed By: #### 2 9374-6, 27455-0, 13499-6, 55765-1, 40352-6, ANAIFR, 90875-3, 74873-9, 25532-0, 35496-0 ####[facility] LABIA [id number] [place] [address] [place] KAMRAN COMM[employer]OR[employer] COORDINATOR Ab Ser-aCncon 2021 Ribonucleoprotein extractable nuclear Ab Qn (S) <0.2 Normal <1.0 [facility] Comment on above: Order Comment: Speci men Type: BLOOD SPECIMENOrdering Facility: [facility] Address: [address] [place] [address] Performed By: #### 2 9374-6, 66220-7, 01330-0, 84377-7, 21393-6, ANAIFR, 44480-8, 19320-8, 75268-9, 18353-4 ####[facility] LABCLIA [id number] [place] [address] [place] KAMRAN SM IgG Ser-aCncon 2021 Osborne extractable nuclear IgG Qn (S) <0.2 Normal <1.0 [facility] Comment on above: Order Comment: Speci men Type: BLOOD SPECIMENOrdering Facility: [facility] Address: [address] [place] [address] Performed By: #### 2 9374-6, 27131-9, 53686-3, 90053-6, 48788-1, ANAIFR, 42022-9, 64725-5, 18813-7, 76597-2 ####[facility] [id number] [place] [address] [place] KAMRAN SS-A [facility] Sjogrens syndrome-A extractable nuclear Ab Qn (S) 0.3 AI Normal <1.0 [facility] Comment on above: Order Comment: Speci men Type: BLOOD SPECIMENOrdering Facility: [facility] Address: [address] [place] [address] Result Comment: Test Methodology: Multiplex flow immunoassay. Performed By: #### 2 9374-6, 38014-5, 13328-0, 37044-5, 09570-2, ANAIFR, 25241-3, 42165-5, 89434-6, 10286-7 ####[facility] LABIA [id number] [place] [address] [place] KAMRAN SS-B Ab Ser-aCnsaint [facility] 07-07 Sjogrens syndrome-B extractable nuclear Ab Qn (S) <0.2 Normal <1.0 [facility] Comment on above: Order Comment: Speci men Type: BLOOD SPECIMENOrdering Facility: [facility] Address: [address] [place] [address] Result Comment: Anti -SSB (anti-La) antibody is used as an aid in diagnosis of a variety of systemic autoimmune diseases, especially for Sjogren's syndrome and systemic lupus erythematosus. Clinical correlation is required. Test Methodology: Multiplex flow immunoassay. Performed By: #### 2 9374-6, 08413-5, 77424-9, 02344-6, 11159-7, ANAIFR, 64973-5, 92740-6, 81223-1, 19039-0 ####[facility] [id number] [place] [address] [place] Radha-1 extractable nuclear Ab Qn (S)on 07-07-2022 RADHA 1 ANTIBODY QUAL Negative Normal Negative [facility] Comment on above: Order Comment: Speci men Type: BLOOD SPECIMENOrdering Facility: [facility] Address: [address] [place] [address] Result Comment: Anti -RADHA-1 antibody is used as an aid in diagnosis of polymyositis and dermatomyositis especially with pulmonary involvement. A negative result cannot rule out polymyositis or dermatomyositis. Clinical correlation is required. Test Methodology: Multiplex flow immunoassay. Performed By: #### 2 9374-6, 28738-7, 03867-0, 63254-2, 98436-6, ANAIFR, 55193-2, 44566-8, 71698-8, 81417-6 ####[facility] [id number] [place] [address] [place] Ribonucleoprotein extractabl e nuclear Ab Qn (S)on 07-07-2022 ANTI-COMMUNITY SPORTS COORDINATOR QUAL Negative Normal Negative [facility] Comment on above: Order Comment: Davidi betty Type: BLOOD SPECIMENOrdering Facility: [facility] Address: [address] [place] [address] Performed By: #### 2 9374-6, 52500-3, 31879-7, 65188-3, 86418-2, ANAIFR, 91929-9, 80138-5, 44234-3, 97847-3 ####[facility] [id number] [place] [address] [place] RIBOSOMAL COMMUNITY SPORTS COORDINATOR QUAL Negative Normal Negative [facility] Comment on above: Order Comment: Davidi betty Type: BLOOD SPECIMENOrdering Facility: [facility] Address: [address] [place] [id number] Result Comment: Anti -Ribosomal RNA (Ribosomal P) antibody is used as an aid in diagnosis of systemic autoimmune diseases especially systemic lupus erythematosus and mixed connective tissue disease. Cross-reactivity with Anti-osborne antibody is not uncommon. Clinical correlation is required. Test Methodology: Multiplex flow immunoassay. Performed By: #### 2 9374-6, 65681-1, 86918-5, 84763-1, 58040-7, ANAIFR, 31808-2, 10376-8, 62854-8, 08478-9 ####[facility] [id number] [place] [id number] [place] SCL-70 extractable nuclear I gG IA Qn (S)on 07-07-2022 SCLERODERMA AB QUAL Negative Normal Negative [facility] Comment on above: Order Comment: Speci men Type: BLOOD SPECIMENOrdering Facility: [facility] Address: [address] [place] [address] Performed By: #### 2 9374-6, 00901-2, 81986-5, 33196-7, 15378-5, ANAIFR, 80048-9, 43570-2, 39103-3, 27080-6 ####[facility] [id number] [address] [place] SCLERODERMA IGG AB <0.2 Normal <1.0 [facility] Comment on above: Order Comment: Speci men Type: BLOOD SPECIMENOrdering Facility: [facility] Address: [address] [place] [address] Result Comment: Scl- 70/Scleroderma antibody test is used as an aid in diagnosis of systemic sclerosis especially the diffuse cutaneous form. A negative result cannot rule out systemic sclerosis. The final interpretation should consider clinical picture and other test results such as anti-centromere antibody. Test Methodology: Multiplex flow immunoassay. Performed By: #### 2 9374-6, 07818-8, 40056-3, 90581-7, 00819-4, ANAIFR, 86190-8, 11621-0, 52668-7, 74285-9 ####[facility] [id number] [place] [address] [place] [facility] [place] Sjogrens syndrome-A extracta ble nuclear Ab Qn (S)on 07-07-2022 SSA ANTIBODY QUAL Negative Normal Negative [facility] Comment on above: Order Comment: Speci men Type: BLOOD SPECIMENOrdering Facility: [facility] Address: [address] [place] [address] Performed By: #### 2 9374-6, 12278-9, 62019-7, 12648-8, 22670-6, ANAIFR, 73241-5, 89546-8, 81374-7, 67874-1 ####[facility] [id number] [address] [place] Sjogrens syndrome-B extracta ble nuclear Ab Qn (S)on 07-07-2022 SSB ANTIBODY QUAL Negative Normal Negative [facility] Comment on above: Order Comment: Speci men Type: BLOOD SPECIMENOrdering Facility: [facility] Address: [address] [place] [address] Performed By: #### 2 9374-6, 94383-7, 56763-1, 23292-5, 88485-3, ANAIFR, 97741-5, 96390-5, 51576-5, 05956-3 ####[facility] [id number] [address] [place] Osborne extractable nuclear Ig G Qn (S)on 07-07-2022 SM ANTIBODY QUAL Negative Normal Negative [facility] Comment on above: Order Comment: Speci men Type: BLOOD SPECIMENOrdering Facility: [facility] Address: [address] [place] [address] Result Comment: Anti -Sm (Osborne) antibody is used as an aid in diagnosis of systemic lupus erythematosus and its presence is associated with renal disease. A negative result cannot rule out systemic lupus erythematosus. Clinical correlation is required. Test Methodology: Multiplex flow immunoassay. Performed By: #### 2 9374-6, 89750-3, 32143-0, 23471-4, 15971-5, ANAIFR, 68502-3, 81042-9, 90945-7, 10832-3 ####[facility] [id number] [place] [address] [place] TSH BLDon 07-07-2022 TSH Qn 0.824 m[IU]/L 0.270 - 4.200 mIU/L [facility] TSH SerPl-aCncon 07-07-2022 TSH Qn 0.824 m[IU]/L Normal 0.270-4.200 [facility] Comment on above: Order Comment: Speci men Type: BLOOD SPECIMENOrdering Facility: [facility] Address: [address] [place] [address] Result Comment: If t he patient is , TSH reference range varies by gestational period: First Trimester (weeks 9-12): 0.180-2.990 mIU/L Second Trimester: 0.110-3.980 mIU/L Third Trimester: 0.480-4.710 mIU/L Eliezer Bangura et al. A Practical Approach for the Verifications and Determination of Site- and Trimester-Specific Reference Intervals for Thyroid Function tests in . Thyroid, 2019:29:3:412-420. Rob Forrest, et al. 2017 Guidelines of the [place] Thy[employer] for the Diagnosis and Management of Thyroid Disease during and the . Thyroid, 2017:27:3:315-389. Performed By: #### 3 016-3, 2132-9 ####[facility] [id number] [place] [address] [place] VITAMIN B12 BLOODon 07-07-20 22 Cobalamin (Vitamin B12) [Mass/Vol] 618 pg/mL 232 - 1,245 pg/mL [facility] Vit B12 SerPl-mCncon 022 Cobalamin (Vitamin B12) [Mass/Vol] 618 pg/mL Normal 232-1245 [facility] Comment on above: Order Comment: Speci men Type: BLOOD SPECIMENOrdering Facility: [facility] Address: [address] [place] [address] Performed By: #### 3 016-3, 2132-9 ####[facility] [id number] [place] [address] [place] dsDNA Ab Ser IA-aCncon 07-07 DNA double strand Ab IA Qn (S) <12 Normal <30 [facility] Comment on above: Order Comment: Speci men Type: BLOOD SPECIMENOrdering Facility: [facility] Address: [address] [place] [address] Result Comment: Nega tive for ds DNA Antibodies. <30 IU/mL Negative 30-74 IU/mL Equivocal >74 IU/mL Positive Performed By: #### 2 9374-6, 47553-2, 01399-2, 17021-8, 07203-5, ANAIFR, 08029-1, 29988-7, 14531-5, 55161-3 ####[facility] [id number] [address] [place] HLA B 27on 04-26-2022 HLA-B27 Negative Normal [facility] Comment on above: Result Comment: HLA- B*27 Negative B27 allele interpretation for all loci based on IMGT/HLA database version 3.44 This test was developed and its performance characteristics determined by [facility]. It has not been cleared or approved by the Food and Drug Administration. [facility] CLIA ID Number [id number] . This test was performed using PCR (Polymerase Chain Reaction)/SSOP (Sequence Specific Oligonucleotide Probes) technique. SBT (Sequence Based Typing) and/or SSP (Sequence Specific Primers) may be used as supplemental methods when necessary. Please contact [facility] Customer Service at if you have any questions. . Director of [facility] Laboratory Dr Abdiaziz Shook, PhD Performed By: #### C VDAGA #### [facility] [address] [place] [address] Dr. Christos Fallon 25-HYDROXY VIT D (D2+D3 [facility] ) LC/MS-MSon 04-23-2022 25-Hydroxy, Vitamin D 26 ng/mL Critically low [facility] Comment on above: Result Comment: Refe rence Range: All Ages: Target levels 30 - 100 Performed By: #### C MP, TSH, HSTROPN #### [facility] [address] [place] [address] Dr. Christos Fallon 25-Hydroxy, Vitamin D-2 <1.0 Normal [facility] Comment on above: Result Comment: This test was developed and its performance characteristics determined by [facility]. It has not been cleared or approved by the Food and Drug Administration. Performed By: #### C MP, TSH, HSTROPN #### [facility] [address] [place] [address] Dr. Christos Fallon 25-Hydroxy, Vitamin D-3 26 ng/mL Normal [facility] Comment on above: Result Comment: This test was developed and its performance characteristics determined by [facility]. It has not been cleared or approved by the Food and Drug Administration. Performed By: #### C MP, TSH, HSTROPN #### [facility] [address] [place] [address] Dr. Christos Fallon REVERSE T3on 04-20-2022 Reverse T3, Serum 11.2 ng/dL Normal 9.2-24.1 [facility] Comment on above: Result Comment: This test was developed and its performance characteristics determined by [facility]. It has not been cleared or approved by the Food and Drug Administration. Performed By: #### C VDAGA #### [facility] [address] [place] [address] Dr. Christos Fallon THYROID ANTIBODIESon 022 Thyroglobulin Antibody <1.0 Normal 0.0-0.9 [facility] Comment on above: Result Comment: Thyr oglobulin Antibody measured by [employer] Methodology Performed By: #### C VDAGA #### [facility] [address] [place] [address] Dr. Christos Fallon Thyroid Peroxidase (TPO) Ab 11 IU/mL Normal 0-34 [facility] Comment on above: Performed By: #### C VDAGA #### [facility] [address] [place] [address] Dr. Christos Fallon ANTISTREPTOLYSIN O AB (ASO)o n 04-16-2022 Antistreptolysin O Ab 21.8 IU/mL Normal 0.0-200.0 [facility] Comment on above: Performed By: #### C MP, TSH, HSTROPN #### [facility] [address] [place] [address] Dr. Christos Fallon T3, TOTAL (TRIIODOTHYRONINE) on 04-16-2022 T3, TOTAL 115 ng/dL Normal 71-180 [facility] Comment on above: Performed By: #### C MP, TSH, HSTROPN #### [facility] [address] [place] [address] Dr. Christos Fallon FREE T3on 04-14-2022 FREE T3 2.46 pg/mlL Normal 2.18-3.98 [facility] Comment on above: Performed By: #### C MP, TSH, HSTROPN #### [facility] [address] [place] [address] Dr. Christos Fallon FREE T4on 04-14-2022 Free T4 [Mass/Vol] 0.88 ng/dL Normal 0.76-1.46 [facility] Comment on above: Performed By: #### C VDAGA #### [facility] [address] [place] [address] Dr. Christos Fallon TSHon 04-14-2022 TSH 1.027 uIU/mL Normal 0.358-3.740 [facility] Comment on above: Performed By: #### C MP, TSH, HSTROPN #### [facility] [address] [place] [address] Dr. Christos Fallon CBC AUTO DIFFon 03-22-2022 BASO # 0.1 103/ul Normal 0.0-0.1 [facility] Comment on above: Performed By: #### C MP, TSH, HSTROPN #### [facility] [address] [place] [address] Dr. Christos Fallon Basophils/100 WBC (Bld) 0.7 % Normal 0.2-2.0 [facility] Comment on above: Performed By: #### C MP, TSH, HSTROPN #### [facility] [address] [place] [address] Dr. Christos Fallon EO # 0.3 103/ul Normal 0.0-0.7 [facility] Comment on above: Performed By: #### C MP, TSH, HSTROPN #### [facility] [address] [place] [address] Dr. Christos Fallon Eosinophils/100 WBC (Bld) 3.4 % Normal 0.9-7.0 [facility] Comment on above: Performed By: #### C MP, TSH, HSTROPN #### [facility] [address] [place] [address] Dr. Christos Fallon Erythrocyte distribution width (RBC) [Ratio] 12.5 % Normal 11.0-15.0 [facility] Comment on above: Performed By: #### C MP, TSH, HSTROPN #### [facility] [address] [place] [address] Dr. Christos Fallon Hematocrit (Bld) [Volume fraction] 41.3 % Normal 36.0-48.0 [facility] Comment on above: Performed By: #### C MP, TSH, HSTROPN #### [facility] [address] [place] [address] Dr. Christos Fallon Hemoglobin (Bld) [Mass/Vol] 14.2 g/dL Normal 12.0-16.0 [facility] Comment on above: Performed By: #### C MP, TSH, HSTROPN #### [facility] [address] [place] [address] Dr. Christos Fallon IG # 0.03 10e3/ul Normal 0.00-0.03 [facility] Comment on above: Performed By: #### C MP, TSH, HSTROPN #### [facility] [address] [place] [address] Dr. Christos Fallon IG % 0.4 % Normal 0.0-0.5 [facility] Comment on above: Performed By: #### C MP, TSH, HSTROPN #### [facility] [address] [place] [address] Dr. Christos Fallon LYMPH # 2.3 103/ul Normal 1.2-3.8 [facility] Comment on above: Performed By: #### C MP, TSH, HSTROPN #### [facility] [address] [place] [address] Dr. Christos Fallon Lymphocytes/100 WBC (Bld) 31.3 % Normal 20.5-60.0 [facility] Comment on above: Performed By: #### C MP, TSH, HSTROPN #### [facility] [address] [place] [address] Dr. Christos Fallon MANUAL DIFF REQ NO Normal [facility] Comment on above: Performed By: #### C MP, TSH, HSTROPN #### [facility] [address] [place] [address] Dr. Christos Fallon MCH (RBC) [Entitic mass] 34.8 pg Critically high 26.7-34.0 [facility] Comment on above: Performed By: #### C MP, TSH, HSTROPN #### [facility] [address] [place] [address] Dr. Christos Fallon MCHC (RBC) [Mass/Vol] 34.4 g/dL Normal 29.9-35.2 [facility] Comment on above: Performed By: #### C MP, TSH, HSTROPN #### [facility] [address] [place] [address] Dr. Christos Fallon MCV (RBC) [Entitic vol] 101.2 fL Critically high 81.0-99.0 [facility] Comment on above: Performed By: #### C MP, TSH, HSTROPN #### [facility] [address] [place] [address] Dr. Christos Fallon MONO # 0.9 103/ul Critically high 0.3-0.8 [facility] Comment on above: Performed By: #### C MP, TSH, HSTROPN #### [facility] [address] [place] [address] Dr. Christos Fallon Monocytes/100 WBC (Bld) 12.0 % Normal 1.7-12.0 [facility] Comment on above: Performed By: #### C MP, TSH, HSTROPN #### [facility] [address] [place] [address] [address] Christos Fallno NEUT # 3.9 103/ul Normal 1.4-6.5 [facility] Comment on above: Performed By: #### C MP, TSH, HSTROPN #### [facility] [address] [place] [address] Dr. Christos Fallon Neutrophils/100 WBC (Bld) 52.2 % Normal 43.0-75.0 [facility] Comment on above: Performed By: #### C MP, TSH, HSTROPN #### [facility] [address] [place] [address] Dr. Christos Fallon Platelet mean volume (Bld) [Entitic vol] 9.7 fL Normal 9.5-13.5 [facility] Comment on above: Performed By: #### C MP, TSH, HSTROPN #### [facility] [address] [place] [address] [address] Christos Fallon PLT 296 103/ul Normal 150-450 [facility] Comment on above: Performed By: #### C MP, TSH, HSTROPN #### [facility] [address] [place] [address] Dr. Christos Fallon RBC 4.08 106/ul Critically low 4.20-5.40 [facility] Comment on above: Performed By: #### C MP, TSH, HSTROPN #### [facility] [address] [place] [address] Dr. Christos Fallon WBC 7.4 103/ul Normal 4.0-11.0 [facility] Comment on above: Performed By: #### C MP, TSH, HSTROPN #### [facility] [address] [place] [address] HEAD WO CONon [...] explain the patient's symptoms. Electronically authenticated by: APL WETZEL Date: 2022-03-22 17:41 Normal [facility] ER URINE PROFILEon 2 Bilirubin Ql (U) Negative Normal NEGATIVE [facility] Comment on above: Performed By: #### C VDAGA #### [facility] [address] [place] [address] Dr. Christos Fallon Clarity (U) CLOUDY Abnormal CLEAR [facility] Comment on above: Performed By: #### C VDAGA #### [facility] [address] [place] [address] Dr. Christos Fallon Color (U) LT. YELLOW Normal YELLOW [facility] Comment on above: Performed By: #### C VDAGA #### [facility] [address] [place] [address] Dr. Christos Fallon ERUAHD A micrscopic examination will be performed if indicated. Normal [facility] Comment on above: Performed By: #### C VDAGA #### [facility] [address] [place] [address] Dr. Christos Fallon Glucose Ql (U) Negative Normal NEGATIVE [facility] Comment on above: Performed By: #### C VDAGA #### [facility] [address] [place] [address] [address] Christos Fallon Hemoglobin Ql (U) Negative Normal NEGATIVE [facility] Comment on above: Performed By: #### C VDAGA #### [facility] [address] [place] [address] [address] Christos Fallon Ketones Ql (U) Negative Normal NEGATIVE [facility] Comment on above: Performed By: #### C VDAGA #### [facility] [address] [place] [address] Dr. Christos Fallon LEUKOCYTES Negative Normal NEGATIVE [facility] Comment on above: Performed By: #### C VDAGA #### [facility] [address] [place] [address] Dr. Christos Fallon Nitrite Ql (U) Negative Normal NEGATIVE [facility] Comment on above: Performed By: #### C VDAGA #### [facility] [address] [place] [address] Dr. Christos Fallon pH (U) 6.0 [pH] Normal 5-9 [facility] Comment on above: Performed By: #### C VDAGA #### [facility] [address] [place] [address] Dr. Christos Fallon SPEC GRAVITY 1.010 Normal 1.005-<=1.02 5 [facility] Comment on above: Performed By: #### C VDAGA #### [facility] [address] [place] [address] Dr. Christos Fallon UA PROTEIN Negative Normal NEGATIVE/ TRACE [facility] Comment on above: Performed By: #### C VDAGA #### [facility] [address] [place] [address] Dr. Christos Fallon UR MICRO IND NOT INDICATED Normal [facility] Comment on above: Performed By: #### C VDAGA #### [facility] [address] [place] [address] Dr. Christos Fallon Urobilinogen Qn (U) 0.2 {Peyman'U}/dL Normal 0.2 - 1. 0 [facility] Comment on above: Performed By: #### C VDAGA #### [facility] [address] [place] [address] Dr. Christos Fallon PROF 14(COMP METB)on 022 Albumin [Mass/Vol] 3.6 g/dL Normal 3.4-5.0 [facility] Comment on above: Performed By: #### C MP, HSTROPN, TSH #### [facility] [address] [place] [address] Dr. Christos Fallon Albumin/Globulin [Mass ratio] 0.9 {ratio} Normal [facility] Comment on above: Performed By: #### C MP, HSTROPN, TSH #### [facility] [address] [place] [address] Dr. Christos Fallon ALP [Catalytic activity/Vol] 83 U/L Normal 46-116 [facility] Comment on above: Performed By: #### C MP, HSTROPN, TSH #### [facility] [address] [place] [address] Dr. Christos Fallon ALT [Catalytic activity/Vol] 32 U/L Normal 14-59 [facility] Comment on above: Performed By: #### C MP, HSTROPN, TSH #### [facility] [address] [place] [address] Dr. Christos Fallon Anion gap [Moles/Vol] 15.4 mmol/L Normal [facility] Comment on above: Performed By: #### C MP, HSTROPN, TSH #### [facility] [address] [place] [address] Dr. Christos Fallon AST [Catalytic activity/Vol] 15 U/L Normal 15-37 [facility] Comment on above: Performed By: #### C MP, HSTROPN, TSH #### [facility] [address] [place] [address] Dr. Christos Fallon Bilirubin [Mass/Vol] 0.3 mg/dL Normal 0.2-1.0 [facility] Comment on above: Performed By: #### C MP, HSTROPN, TSH #### [facility] [address] [place] [address] Dr. Christos Fallon Calcium [Mass/Vol] 8.9 mg/dL Normal 8.5-10.1 [facility] Comment on above: Performed By: #### C RAY HSTROPN, TSH #### [facility] [address] [address] [address] Christos Fallon Chloride [Moles/Vol] 102 mmol/L Normal 98-107 [facility] Comment on above: Performed By: #### C RAY HSTROPN, TSH #### [facility] [address] [address] [address] Christos Fallon CO2 [Moles/Vol] 22.7 mmol/L Normal 21.0-32.0 [facility] Comment on above: Performed By: #### C RAY HSTROPN, TSH #### [facility] [address] [address] [address] Christos Fallon Creatinine [Mass/Vol] 0.97 mg/dL Normal 0.55-1.02 [facility] Comment on above: Performed By: #### C RAY HSTROPN, TSH #### [facility] [address] [address] [address] Christos Fallon EGFR-AF SALVADOREAN >60 Normal >=60 [facility] Comment on above: Performed By: #### C RAY HSTROPN, TSH #### [facility] [address] [address] [address] Christos Fallon EGFR-NON AF SALVAD[place]AN >60 Normal >=60 [facility] Comment on above: Performed By: #### C MP, HSTROPN, TSH #### [facility] [address] [address] [address] Christos Fallon Globulin (S) [Mass/Vol] 3.8 g/dL Normal [facility] Comment on above: Performed By: #### C MP, HSTROPN, TSH #### [facility] [address] [address] [address] Christos Fallon Glucose [Mass/Vol] 104 mg/dL Normal 74-106 [facility] Comment on above: Performed By: #### C MP, HSTROPN, TSH #### [facility] [address] [place] [address] Dr. Christos Fallon Potassium [Moles/Vol] 4.1 mmol/L Normal 3.5-5.1 [facility] Comment on above: Performed By: #### C MP, HSTROPN, TSH #### [facility] [address] [place] [address] Dr. Christos Fallon Protein [Mass/Vol] 7.4 g/dL Normal 6.4-8.2 [facility] Comment on above: Performed By: #### C MP, HSTROPN, TSH #### [facility] [address] [address] [address] Christos Fallon Sodium [Moles/Vol] 136 mmol/L Normal 136-145 [facility] Comment on above: Performed By: #### C MP, HSTROPN, TSH #### [facility] [address] [place] [address] Dr. Christos Fallon Urea nitrogen [Mass/Vol] 17.0 mg/dL Normal 7.0-18.0 [facility] Comment on above: Performed By: #### C MP, HSTROPN, TSH #### [facility] [address] [place] [address] Dr. Christos Fallon Urea nitrogen/Creatinine [Mass ratio] 17.5 mg/mg Normal [facility] Comment on above: Performed By: #### C MP, HSTROPN, TSH #### [facility] [address] [place] [address] Dr. Christos Fallon TROPONIN, HIGH SENSITIVITYon 03-22-2022 HSTROP <4.0 Normal 4.0-51.3 [facility] Comment on above: Result Comment: CUT- OFF POINTS HAVE BEEN ESTABLISHED BASED ON THE FOURTH UNIVERSAL DEFINITIONS OF MYOCARDIAL INFARCTION. THE UPPER REFERENCE LIMIT (URL) OF TROPONIN, DEFINED THE 99TH PERCENTILE OF cTnI DISTRIBUTION IN A REFERENCE POPULATION, HAS BEEN CONFIRMED THE DECISION THRESHOLD FOR DC DIAGNOSIS. Performed By: #### C MP, HSTROPN, TSH #### [facility] [address] [place] [address] Dr. Christos Fallon TSHon 03-22-2022 TSH 0.854 uIU/mL Normal 0.358-3.740 [facility] Comment on above: Performed By: #### C MP HSTROPN, TSH #### [facility] [address] [place], [place] [address] Dr. Christos Fallon ASYMPTOMATIC COVID-19 ANTIGE Non 03-03-2022 EUA Statement SEE BELOW Normal [facility] Comment on above: Result Comment: This [...] sooner. Performed By: #### C VDAGA #### [facility] [address] [place] [address] [address] [address] Christos Fallon SARS-CoV-2 (COVID-19) RNA LEROY+probe Ql (Unsp spec) Positive Critically abnormal NEGATIVE [facility] Comment on above: Result Comment: SARS -CoV-2 antigen present; does not rule out coinfection with other pathogens. Performed By: #### C VDAGA #### [facility] [address] [place], [place] [address] Dr. Christos Fallon [facility]06 SARS-CoV-2 (COVID-19) RNA LEROY+probe Ql (Unsp spec) Detected Critically abnormal NOT DETECTED [facility] Comment on above: Result Comment: This test is not yet approved or cleared by the [place] FDA. When there are no FDA-approved or cleared tests available, and other criteria are met, FDA can make tests available under an emergency access mechanism called an Emergency Use Authorization (EUA). The EUA for this test is supported by the Ginger Farmer of Health and Human Service's declaration that [...] By: #### C MP, TSH, HSTROPN #### [facility] [address] [place] [address] Dr. Christos Fallon CRPon 11-25-2021 CRP [Mass/Vol] mg/L Normal <=1.0 [facility] Comment on above: Performed By: #### C MP, TSH, HSTROPN #### [facility] [address] [place] [address] Dr. Christos Fallon VIT B12 AND FOLATEon 022 Cobalamin (Vitamin B12) [Mass/Vol] 329.0 pg/mL Normal 239.0-931.0 [facility] Comment on above: Performed By: #### C MP, TSH, HSTROPN #### [facility] [address] [place] [address] Dr. Christos Fallon FOLATE 8.50 ng/mL Normal >=2.76 [facility] Comment on above: Performed By: #### C MP, TSH, HSTROPN #### [facility] [address] [place] [address] Dr. Christos Flalon CBC AUTO DIFFon 11-19-2021 BASO # 0.1 103/ul Normal 0.0-0.1 [facility] Comment on above: Performed By: #### C BC #### [facility] [address] [place] [address] Dr. Christos Fallon Basophils/100 WBC (Bld) 0.8 % Normal 0.2-2.0 [facility] Comment on above: Performed By: #### C BC #### [facility] [address] [place] [address] Dr. Christos Fallon EO # 0.3 103/ul Normal 0.0-0.7 [facility] Comment on above: Performed By: #### C BC #### [facility] [address] [place] [address] Dr. Christos Fallon Eosinophils/100 WBC (Bld) 4.8 % Normal 0.9-7.0 [facility] Comment on above: Performed By: #### C BC #### [facility] [address] [place] [address] Dr. Christos Fallon Erythrocyte distribution width (RBC) [Ratio] 12.2 % Normal 11.0-15.0 [facility] Comment on above: Performed By: #### C BC #### [facility] [address] [place] [address] Dr. Christos Fallon Hematocrit (Bld) [Volume fraction] 41.9 % Normal 36.0-48.0 [facility] Comment on above: Performed By: #### C BC #### [facility] [address] [place] [address] Dr. Christos Fallon Hemoglobin (Bld) [Mass/Vol] 14.2 g/dL Normal 12.0-16.0 [facility] Comment on above: Performed By: #### C BC #### [facility] [address] [place] [address] Dr. Christos Fallon IG # 0.03 10e3/ul Normal 0.00-0.03 [facility] Comment on above: Performed By: #### C BC #### [facility] [address] [place] [address] Dr. Christos Fallon IG % 0.5 % Normal 0.0-0.5 [facility] Comment on above: Performed By: #### C BC #### [facility] [address] [place] [address] Dr. Christos Fallon LYMPH # 1.5 103/ul Normal 1.2-3.8 [facility] Comment on above: Performed By: #### C BC #### [facility] [address] [place] [address] Dr. Christos Fallon Lymphocytes/100 WBC (Bld) 24.6 % Normal 20.5-60.0 [facility] Comment on above: Performed By: #### C BC #### [facility] [address] [place] [address] Dr. Christos Fallon MANUAL DIFF REQ NO Normal [facility] Comment on above: Performed By: #### C BC #### [facility] [address] [place] [address] Dr. Christos Fallon MCH (RBC) [Entitic mass] 34.3 pg Critically high 26.7-34.0 [facility] Comment on above: Performed By: #### C BC #### [facility] [address] [place] [address] Dr. Christos Fallon MCHC (RBC) [Mass/Vol] 33.9 g/dL Normal 29.9-35.2 [facility] Comment on above: Performed By: #### C BC #### [facility] [address] [place] [address] Dr. Christos Fallon MCV (RBC) [Entitic vol] 101.2 fL Critically high 81.0-99.0 [facility] Comment on above: Performed By: #### C BC #### [facility] [address] [place] [address] Dr. Christos Fallon MONO # 0.5 103/ul Normal 0.3-0.8 [facility] Comment on above: Performed By: #### C BC #### [facility] [address] [place] [address] Dr. Christos Fallon Monocytes/100 WBC (Bld) 7.2 % Normal 1.7-12.0 [facility] Comment on above: Performed By: #### C BC #### [facility] [address] [place] [address] Dr. Christos Fallon NEUT # 3.9 103/ul Normal 1.4-6.5 [facility] Comment on above: Performed By: #### C BC #### [facility] [address] [place] [address] Dr. Christos Fallon Neutrophils/100 WBC (Bld) 62.1 % Normal 43.0-75.0 [facility] Comment on above: Performed By: #### C BC #### [facility] [address] [place] [address] [address] Christos Fallon Platelet mean volume (Bld) [Entitic vol] 9.1 fL Critically low 9.5-13.5 [facility] Comment on above: Performed By: #### C BC #### [facility] [address] [place] [address] Dr. Christos Fallon PLT 301 103/ul Normal 150-450 [facility] Comment on above: Performed By: #### C BC #### [facility] [address] [place] [address] [address] Christos Fallon RBC 4.14 106/ul Critically low 4.20-5.40 [facility] Comment on above: Performed By: #### C BC #### [facility] [address] [place] [address] Dr. Christos Fallon WBC 6.3 103/ul Normal 4.0-11.0 [facility] Comment on above: Performed By: #### C BC #### [facility] [address] [place] [address] Dr. Christos Fallon FREE T3on 11-19-2021 FREE T3 2.72 pg/mlL Critically low 2.77-5.27 [facility] Comment on above: Performed By: #### C MP, TSH, HSTROPN #### [facility] [address] [place] [address] Dr. Christos Fallon FREE T4on 11-19-2021 Free T4 [Mass/Vol] 1.09 ng/dL Normal 0.78-2.19 [facility] Comment on above: Performed By: #### C MP, TSH, HSTROPN #### [facility] [address] [place] [address] Dr. Christos Fallon GLYCOHEMOGLOBIN A1Con 2021 ADA RECOMMENDATION ADA THERAPEUTIC TARG ET 6.0 - 7.0 ACTION SUGGESTED > 7.0 Normal [facility] Comment on above: Performed By: #### A 1C #### [facility] [address] [place] [address] [address] Christos Fallon Glucose [Mass/Vol] 105 mg/dL Normal [facility] [facility] Comment on above: Performed By: #### A 1C #### [facility] [address] [place] [address] Dr. Christos Fallon HbA1c (Bld) [Mass fraction] 5.3 % Normal <=6.0 [facility] Comment on above: Performed By: #### A 1C #### [facility] [address] [place] [address] Dr. Christos Fallon LIPID PROFILEon 11-19-2021 CHOL-HDL RATIO NORM SEE BELOW Normal [facility] Comment on above: Result Comment: 3.3 - 4.4 LOW RISK 4.4 - 7.1 AVERAGE RISK 7.1 - 11.0 MODERATE RISK >11.0 HIGH RISK Performed By: #### C MP, TSH, HSTROPN #### [facility] [address] [place] [address] [address] Christos Fallon Cholesterol [Mass/Vol] 232 mg/dL Critically high <=200 [facility] Comment on above: Performed By: #### C MP, TSH, HSTROPN #### [facility] [address] [place] [address] Dr. Christos Fallon Cholesterol in HDL [Mass/Vol] 60 mg/dL Normal 40-60 [facility] Comment on above: Performed By: #### C MP, TSH, HSTROPN #### [facility] [address] [place] [address] [address] Christos Fallon Cholesterol in LDL [Mass/Vol] 134.6 mg/dL Normal [facility] Comment on above: Performed By: #### C MP, TSH, HSTROPN #### [facility] [address] [place] [address] Dr. Christos Fallon Cholesterol.total/Cho lesterol in HDL [Mass ratio] 3.9 {ratio} Normal [facility] Comment on above: Performed By: #### C MP, TSH, HSTROPN #### [facility] [address] [place] [address] Dr. Christos Fallon HDL NORMAL > or = 60 mg/dl - LO W CARDIOVASCULAR RISK <40 mg/dl - HIGH CARDIOVASCULAR RISK Normal [facility] Comment on above: Performed By: #### C MP, TSH, HSTROPN #### [facility] [address] [place] [address] [address] Christos Fallon LDL CALC NORMAL SEE BELOW Normal [facility] Comment on above: Result Comment: <100 mg/dl OPTIMAL 100 - 129 mg/dl NEAR OR ABOVE OPTIMAL 130 - 159 mg/dl BORDERLINE HIGH 160 - 189 mg/dl HIGH >190 mg/dl VERY HIGH Performed By: #### C MP, TSH, HSTROPN #### [facility] [address] [place] [address] [address] Christos Fallon Triglyceride [Mass/Vol] 187 mg/dL Critically high <=150 [facility] Comment on above: Performed By: #### C MP, TSH, HSTROPN #### [facility] [address] [place] [address] [address] Christos Fallon VLDL CALC 37.4 mg/dL Normal [facility] Comment on above: Performed By: #### C MP, TSH, HSTROPN #### [facility] [address] [place] [address] [address] Christos Fallon PROF 14(COMP METB)on 022 Albumin [Mass/Vol] 3.8 g/dL Normal 3.4-5.0 [facility] Comment on above: Performed By: #### C MP, TSH, HSTROPN #### [facility] [address] [place] [address] [address] Christos Fallon Albumin/Globulin [Mass ratio] 1.1 {ratio} Normal [facility] Comment on above: Performed By: #### C MP, TSH, HSTROPN #### [facility] [address] [place] [address] [address] Christos Fallon ALP [Catalytic activity/Vol] 77 U/L Normal 46-116 [facility] Comment on above: Performed By: #### C MP, TSH, HSTROPN #### [facility] [address] [place] [address] [address] Christos Fallon ALT [Catalytic activity/Vol] 34 U/L Normal 14-59 [facility] Comment on above: Performed By: #### C MP, TSH, HSTROPN #### [facility] [address] [place] [address] [address] Christos Fallon Anion gap [Moles/Vol] 11.5 mmol/L Normal [facility] Comment on above: Performed By: #### C MP, TSH, HSTROPN #### [facility] [address] [place] [address] [address] Christos Fallon AST [Catalytic activity/Vol] 21 U/L Normal 15-37 [facility] Comment on above: Performed By: #### C MP, TSH, HSTROPN #### [facility] [address] [place] [address] [address] Christos Fallon Bilirubin [Mass/Vol] 0.7 mg/dL Normal 0.2-1.3 [facility] Comment on above: Performed By: #### C MP, TSH, HSTROPN #### [facility] [address] [place] [address] [address] Christos Fallon Calcium [Mass/Vol] 8.8 mg/dL Normal 8.5-10.1 [facility] Comment on above: Performed By: #### C MP, TSH, HSTROPN #### [facility] [address] [place] [address] [address] Christos Fallon Chloride [Moles/Vol] 104 mmol/L Normal 98-107 [facility] Comment on above: Performed By: #### C MP, TSH, HSTROPN #### [facility] [address] [place] [address] [address] Christos Fallon CO2 [Moles/Vol] 28.6 mmol/L Normal 22.0-30.0 [facility] Comment on above: Performed By: #### C MP, TSH, HSTROPN #### [facility] [address] [place] [address] [address] Christos Fallon Creatinine [Mass/Vol] 0.88 mg/dL Normal 0.52-1.04 [facility] Comment on above: Performed By: #### C MP, TSH, HSTROPN #### [facility] [address] [place] [address] Dr. Christos Fallon EGFR-AF SALVADOREAN >60 Normal >=60 [facility] Comment on above: Performed By: #### C MP, TSH, HSTROPN #### [facility] [address] [place] [address] Dr. Christos Fallon EGFR-NON AF SALVADOREAN >60 Normal >=60 [facility] Comment on above: Performed By: #### C MP, TSH, HSTROPN #### [facility] [address] [place] [address] Dr. Christos Fallon Globulin (S) [Mass/Vol] 3.5 g/dL Normal [facility] Comment on above: Performed By: #### C MP, TSH, HSTROPN #### [facility] [address] [place] [address] Dr. Christos Fallon Glucose [Mass/Vol] 101 mg/dL Normal 74-106 [facility] Comment on above: Performed By: #### C MP, TSH, HSTROPN #### [facility] [address] [place] [address] Dr. Crhistos Fallon Potassium [Moles/Vol] 4.1 mmol/L Normal 3.4-5.0 [facility] Comment on above: Performed By: #### C MP, TSH, HSTROPN #### [facility] [address] [place] [address] Dr. Christos Fallon Protein [Mass/Vol] 7.3 g/dL Normal 6.1-8.2 [facility] Comment on above: Performed By: #### C MP, TSH, HSTROPN #### [facility] [address] [place] [address] Dr. Christos Fallon Sodium [Moles/Vol] 140 mmol/L Normal 137-145 [facility] Comment on above: Performed By: #### C MP, TSH, HSTROPN #### [facility] [address] [place] [address] [address] Christos Fallon Urea nitrogen [Mass/Vol] 11.0 mg/dL Normal 7.0-18.0 [facility] Comment on above: Performed By: #### C MP, TSH, HSTROPN #### [facility] [address] [place] [address] [address] Christos Fallon Urea nitrogen/Creatinine [Mass ratio] 12.5 mg/mg Normal [facility] Comment on above: Performed By: #### C MP, TSH, HSTROPN #### [facility] [address] [place] [address] [address] Christos Fallon TSHon 11-19-2021 TSH 0.774 uIU/mL Normal 0.470-4.680 [facility] Comment on above: Performed By: #### C MP, TSH, HSTROPN #### [facility] [address] [place] [address] [address] Christos Fallon TSH RANGE SEE BELOW Normal [facility] Comment on above: Result Comment: <0.3 4 UIU/ml HYPERTHYROID 0.34-5.60 UIU/ml EUTHYROID >5.60 UIU/ml HYPOTHYROID Performed By: #### C MP, TSH, HSTROPN #### [facility] [address] [place] [address] Dr. Christos Fallon XR TSPINE 2 VIEWSon [...] TAMIE GUILLERMO Date: 2021-11-19 12:49 Normal [facility] Cardiovascular Lab Reporton 11-17-2021 Cardiovascular Lab Report [facility] Patient Name: Kaila Vasquez [facility] MR #: [id number] Physician: Jonny Fowler M.D. Department of Service Date: 11/17/2021 Medicine Birthdate: 1980 Division of Room #: CC Cardiology Adult Cardiovascular Services [facility] [address] [facility]. [place] [address] Cardiovascular Laboratory Report PROCEDURE: Implantable loop recorder [...] subcutaneous pocket, into which was deployed a [employer]ap[employer] BioMonitor 3 implantable loop recorder. Via off [...] Fowler M.D. Date Trans: 11/17/2021 12:41 P/mmo [id number] cc: Mert Lama M.D. [address] [place] [address] [facility] [phone] Normal [facility] Covid-19 PCR (CVDTBH)on SARS-CoV-2 (COVID-19) RNA LEROY+probe Ql (Unsp spec) Not detected Normal NOT DETECTED [facility] Comment on above: Result Comment: This test is not yet approved or cleared by the [place] FDA. When there are no FDA-approved or cleared tests available, and other criteria are met, FDA can make tests available under an emergency access mechanism called an Emergency Use Authorization (EUA). The EUA for this test is supported by the Ginger Farmer of Health and Human Service's (HHS's) declaration [...] By: #### C MP, TSH, HSTROPN #### [facility] [address] [place] [address] Dr. Christos Fallon Covid-19 PCR (CVDTBH)on SARS-CoV-2 (COVID-19) RNA LEROY+probe Ql (Unsp spec) Not detected Normal NOT DETECTED [facility] Comment on above: Result Comment: When diagnostic [...] for this test is supported by the Ginger Farmer of Health and Human Service's declaration that [...] longer be used). Performed By: #### C [facility] #### [facility] [address] [place] [address] [address] Christos Flalon Cardiovascular Lab Reporton 06-17-2021 Cardiovascular Lab Report [facility] Patient Name: Christina [facility] MR #: [id number] Physician: Vishal Rogers MD Department of Service Date: 06/17/2021 Medicine Birthdate: 1980 Division of Room #: CC Cardiology Adult Cardiovascular Services [place] [address] Cardiovascular Laboratory Report COMPREHENSIVE EP STUDY AND [...] follows. RFV: 5Fx2 RV/RA/CRD2 His EP Cath: [place] [employer], 8Fx2: Pentaray changed to [employer] [...] same (more content not included)... Normal [facility] FEMUR LEFT 2 [facility] 1 FEMUR LEFT 2 [facility] Department of Radiology [address] [place] [phone] ======== Patient Name: KAILA VASQUEZ : 1980 Sex: F Age: Race: White Pt. 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 Electronically signed: Gelacio Pfeiffer. Transcribed by: [email or web address], User Resident: TAVON BELCHER Electronically Signed by: GELACIO PFEIFFER @ 01/15/2021 12:03 PM I personally read this/these film(s) with this resident Normal [facility] Comment on above: Order Comment: evalu ate Operative Reporton Operative Report MR#: [id number] S [facility] Pt. Name: Kaila Vasquez Room #: 0C Discharge 12/05/2020 Date: Birthdate: 1980 OPERATIVE REPORT DATE OF SURGERY: 12/05/2020 SURGEON: Pamella Brennan M.D. PREOPERATIVE DIAGNOSIS: Left distal femur osteochondroma. POSTOPERATIVE DIAGNOSIS: Left distal femur osteochondroma. PROCEDURE PERFORMED: Left distal femur osteochondroma excision. POLITICAL WORKER: Alaina Edouard M.D. ANESTHESIA: General endotracheal. SPECIMENS: [...] i (more content not included)... Normal [facility] FEMUR LEFT 2 [facility] 1 FEMUR LEFT 2 [facility] Department of Radiology [address] [place] [phone] ======== Patient Name: KAILA VASQUEZ : 1980 Sex: F Age: Race: White Pt. Location: OUTP Patient Status: O Ordered Date: 12/05/2020 7:30:00 AM Completed Date: 12/05/2020 10:05 AM Requesting Provider: PAMELLA BRENNAN Attending Provider: PAMELLA BRENNAN Report Copy To: Signs & Symptoms: LEFT DISTAL FEMUR OSTEOCHONDROMA EXCISION History: Comments: LEFT DISTAL FEMUR OSTEOCHONDROMA EXCISION Exam: FEMUR LEFT 2 [facility] ======== FEMUR LEFT 2 VWS 12/05/2020 10:05 [...] purposes. Electronically signed: Ching Garcia. Transcribed by: [email or web address], User Resident: Electronically Signed by: CHING GARCIA @ 12/05/2020 11:54 AM Normal [facility] Comment on above: Order Comment: LEFT DISTAL FEMUR OSTEOCHONDROMA EXCISION POC GLUCOSE LABon 12-05-2020 Glucose [Mass/Vol] 108 mg/dL High 70-100 [facility] Comment on above: Performed By: #### 8 [id number] ####[facility] *MRSA/MSSA DNA NASALon 11-28 *MRSA/MSSA DNA NASAL Clinical Report: (D ) Specimen: NASAL SWAB Collected: 11/28/2020 13:22 Status: Final Last Updated: 2020 13:05 MSSA DNA (Final) Negative MRSA DNA (Final) Negative Normal [facility] Comment on above: Performed By: #### 3 1595 ####[facility] [place] [address], [facility] APTTon 11-28-2020 aPTT Coag (Bld) [Time] 29.1 s Normal 25.0-35.0 [facility] Comment on above: Result Comment: ALL RESULTS [...] THIS PURPOSE. Performed By: #### 5 [id number], 223[address] #### [facility] [address] [place] [address], [facility] BASIC METABOLIC PANELon 04-2 Calcium [Mass/Vol] 9.5 mg/dL Normal 8.6-10.3 [facility] Comment on above: Performed By: #### 0 0071 #### [facility] [address] [place] [address], [facility] Chloride [Moles/Vol] 104 mmol/L Normal 98-107 [facility] Comment on above: Performed By: #### 0 0071 #### [facility] [address] [place] [address], [place] CO2 [Moles/Vol] 28 mmol/L Normal 21-31 [facility] Comment on above: Performed By: #### 0 0071 #### [facility] [address] [place] [address], [facility] Creatinine [Mass/Vol] 0.90 mg/dL Normal 0.60-1.20 [facility] Comment on above: Performed By: #### 0 0071 #### [facility] [address] [place] [address], [place] GFR/1.73 sq M.predicted among blacks MDRD (S/P/Bld) [Vol rate/Area] mL/min/{1.73_m2} Normal >60 [facility] Comment on above: Performed By: #### 0 0071 #### [facility] [address] GFR/1.73 sq M.predicted among non-blacks MDRD (S/P/Bld) [Vol rate/Area] mL/min/{1.73_m2} Normal >60 [facility] Comment on above: Performed By: #### 0 0071 #### [facility] [address] [place] [address], [facility] Glucose [Mass/Vol] 132 mg/dL High 70-100 [facility] Comment on above: Performed By: #### 0 0071 #### [facility] [address] Potassium [Moles/Vol] 3.8 mmol/L Normal 3.5-5.1 [facility] Comment on above: Performed By: #### 0 0071 #### [facility] [address] Sodium [Moles/Vol] 138 mmol/L Normal 136-145 [facility] Comment on above: Performed By: #### 0 0071 #### [facility] [address] Urea nitrogen [Mass/Vol] 9 mg/dL Normal 7-25 [facility] Comment on above: Performed By: #### 0 0071 #### [facility] [address] CBC W/DIFFon 11-28-2020 ABS IMM GRANS 0.0 10*3/uL Normal 0.0-0.2 [facility] Comment on above: Performed By: #### 5 3 ####[facility] [facility] [place] [address], [facility] ABS NEUTROPHILS 7.2 10*3/uL Normal 1.6-7.6 [facility] Comment on above: Performed By: #### 5 3 ####[facility] [facility] [place] [address], [facility] Basophils (Bld) [#/Vol] 0.1 10*3/uL Normal 0.0-0.2 [facility] Comment on above: Performed By: #### 5 0103 ####[facility] [place] [address], [facility] Basophils/100 WBC (Bld) 0.6 % Normal 0.0-1.0 [facility] Comment on above: Performed By: #### 5 0103 ####[facility] [place] [address], [facility] Eosinophils (Bld) [#/Vol] 0.3 10*3/uL Normal 0.0-0.5 [facility] Comment on above: Performed By: #### 5 3 ####[place] [id number] [facility] [place] [address], [facility] Eosinophils/100 WBC (Bld) 2.6 % Normal 0.0-6.0 [facility] Comment on above: Performed By: #### 3 ####[facility]3000 [facility].[address] Erythrocyte distribution width (RBC) [Ratio] 12.6 % Normal 11.5-15.0 [facility] Comment on above: Performed By: #### 3 ####[facility] [facility] Hematocrit (Bld) [Volume fraction] 42.6 % Normal 36.0-45.0 [facility] Comment on above: Performed By: #### 5 3 ####[facility] [facility] [place] [address], [facility] Hemoglobin (Bld) [Mass/Vol] 14.4 g/dL Normal 12.0-15.0 [facility] Comment on above: Performed By: #### 5 3 ####[facility] IMMATURE GRANS 0.3 % Normal 0.0-1.0 [facility] Comment on above: Performed By: #### 5 0103 ####[facility] Lymphocytes (Bld) [#/Vol] 2.1 10*3/uL Normal 1.2-4.0 [facility] Comment on above: Performed By: #### 5 3 ####[facility] Lymphocytes/100 WBC (Bld) 20.2 % Normal 20.0-45.0 [facility] Comment on above: Performed By: #### 5 102 ####[address] MCH (RBC) [Entitic mass] 33.6 pg High 27.0-33.0 [facility] Comment on above: Performed By: #### 102 ####[place] [address] MCHC (RBC) [Mass/Vol] 33.8 g/dL Normal 32.0-35.0 [facility] Comment on above: Performed By: #### 3 ####[facility] MCV (RBC) [Entitic vol] 99.5 fL High 82.0-98.0 [facility] Comment on above: Performed By: #### 5 3 ####[place] [address], [facility] Monocytes (Bld) [#/Vol] 0.7 10*3/uL Normal 0.1-1.0 [facility] Comment on above: Performed By: #### 5 3 ####[address] [place] [address], [facility] MONOS 6.4 % Normal 5.0-12.0 [facility] Comment on above: Performed By: #### 5 0103 ####[facility] [place] [address], [facility] Neutrophils/100 WBC (Bld) 69.9 % Normal 40.0-72.0 [facility] Comment on above: Performed By: #### 5 0103 ####[facility] [place] [address], [facility] Nucleated RBC/100 WBC (Bld) [Ratio] 0 % Normal 0-0 [facility] Comment on above: Performed By: #### 5 0103 ####[address] PLAT CNT 346 10*3/uL Normal 150-400 [facility] Comment on above: Performed By: #### 5 0103 ####[facility] [place] [address], [facility] RBC (Bld) [#/Vol] 4.28 10*6/uL Normal 3.80-5.00 [facility] Comment on above: Performed By: #### 5 0103 ####[facility] [place] [address], [facility] WBC (Bld) [#/Vol] 10.24 10*3/uL Normal 4.00-10.60 [facility] Comment on above: Performed By: #### 5 0103 ####[facility] PROTHROMBIN TIMEon 1 INR Coag (PPP) [Relative time] 0.99 {INR} Normal 0.91-1.16 [facility] Comment on above: Result Comment: ACCC P [...] CHEST 1995;[id number]. Performed By: #### 5 7307, 00050 #### [facility] [address] [place] [address], [facility] PT Coag (PPP) [Time] 13.1 s Normal 12.3-14.8 [facility] Comment on above: Result Comment: ALL RESULTS MUST BE INTERPRETED WITH RESPECT TO BLOOD DRAWING ARTIFACT OR DILUTION ERROR OF ANTICOAGULANT AT THE TIME OF SAMPLING. Performed By: #### 5 7307, 68782 #### [facility] [address] [facility] [place] [address], [facility] TYPE AND CROSSMATCHon 2020 ABO INTERPRETATION O Normal [facility] Comment on above: Performed By: #### 6 2594 #### [facility] [address] [facility] [place] [address], [facility] RH INTERPRETATION Positive Normal [facility] Comment on above: Performed By: #### 6 2594 #### [facility] [address] [place] [id number], [facility] URINALYSISon 11-28-2020 Appearance (U) CLEAR Normal CLEAR [facility] Comment on above: Performed By: #### 1 0008 #### [facility] [address] [place] [address], [place] Bilirubin Ql (U) Negative Normal NEGATIVE [facility] Comment on above: Performed By: #### 1 0008 #### [facility] [address] [place] [address], [place] Color (U) YELLOW Normal YELLOW [facility] Comment on above: Performed By: #### 1 0008 #### [facility] [address] [place] [address], [place] Glucose Ql (U) Negative Normal NEGATIVE [facility] Comment on above: Performed By: #### 1 0008 #### [facility] [address] [facility] [place] [address], [place] Hemoglobin Ql (U) Negative Normal NEGATIVE [facility] Comment on above: Performed By: #### 1 0008 #### [facility] [address] [facility] [place] [address], [place] KETONE Negative Normal NEGATIVE [facility] Comment on above: Performed By: #### 1 0008 #### [facility] [address] [facility] [place] [address], [place] LEUK JORDAN Negative Normal NEGATIVE [facility] Comment on above: Performed By: #### 1 0008 #### [facility] [address] [facility] [place] [address], [facility] MICRO NOT DONE Normal [facility] Comment on above: Result Comment: Micr oscopics not performed on urines with negative chemical reactions unless requested in original order Performed By: #### 1 0008 #### [facility] [address] [facility] [place] [address], [place] Nitrite Ql (U) Negative Normal NEGATIVE [facility] Comment on above: Performed By: #### 1 0008 #### [facility] [address] [place] [address], [place] pH (U) 6.0 [pH] Normal 5.0-8.0 [facility] Comment on above: Performed By: #### 1 0008 #### [facility] [address] [place] [address], [facility] Protein Ql (U) Negative Normal NEGATIVE [facility] Comment on above: Performed By: #### 1 0008 #### [facility] [address] [place] [address], [facility] SPEC GRAV 1.018 Normal 1.015-1.020 [facility] Comment on above: Performed By: #### 1 0008 #### [facility] [address] [facility]. [address] Vital Signs Date Time Vital Sign Value Performing Clinician Faci lity 08-24-2022 13:44-0500 Body height 162.6 cm Janell Sy MD Work Phone: [facility] 08-24-2022 13:44-0500 Body weight 112.95 kg Janell Sy MD Work Phone: [facility] 08-24-2022 13:44-0500 Diastolic blood pressure 73 mm[Hg] Janell Sy MD Work Phone: [facility] 08-24-2022 13:44-0500 Heart rate 88 /min Janell Sy MD Work Phone: [facility] 08-24-2022 13:44-0500 SaO2% (BldA) [Mass fraction] 98 % Janell Sy MD Work Phone: [facility] 08-24-2022 13:44-0500 Systolic blood pressure 112 mm[Hg] Janell Sy MD Work Phone: [facility] 08-05-2022 10:00-0500 Diastolic blood pressure 88 mm[Hg] Carmen Johnson PT Work Phone: [facility] 08-05-2022 10:00-0500 Heart rate 78 /min Carmen Johnson PT Work Phone: [facility] 08-05-2022 10:00-0500 Systolic blood pressure 134 mm[Hg] Carmen Johnson PT Work Phone: [facility] 07-07-2022 08:12-0500 Body height 162.6 cm Glenroy Syed PAINTER FOREMAN.BREAKER TENDER Work Phone: [facility] 07-07-2022 08:12-0500 Body weight 112.04 kg Glenroy Syed PAINTER FOREMAN.BREAKER TENDER Work Phone: [facility] 07-07-2022 08:12-0500 Diastolic blood pressure 88 mm[Hg] Glenroy Syed PAINTER FOREMAN.BREAKER TENDER Work Phone: [facility] 07-07-2022 08:12-0500 Heart rate 82 /min Glenroy Syed PAINTER FOREMAN.BREAKER TENDER Work Phone: [facility] 07-07-2022 08:12-0500 SaO2% (BldA) [Mass fraction] 98 % Glenroy Syed PAINTER FOREMAN.BREAKER TENDER Work Phone: [facility] 07-07-2022 08:12-0500 Systolic blood pressure 134 mm[Hg] Glenroy Syed PAINTER FOREMAN.BREAKER TENDER Work Phone: [facility] 12-09-2021 13:59-0400 Blood Pressure Location Pamella SANABRIA [facility] 12-09-2021 13:59-0400 Diastolic blood pressure 78 mm[Hg] Pamella SANABRIA [facility] 12-09-2021 13:59-0400 Heart rate 68 /min Pamella ZIMMERMANL [facility] [place] 12-09-2021 13:59-0400 Respiratory rate 16 /min Pamella ZIMMERMANL [facility] [place] 12-09-2021 13:59-0400 Systolic blood pressure 118 mm[Hg] Pamella SANABRIA [facility] [place] Encounters Encounter Date Encounter Type Care Provider Facility Start: 03-06-2024 ambulatory [facility] Start: 01-31-2024 ambulatory [facility] Start: 01-24-2024 ambulatory JONNY [facility] Start: 12-19-2023 End: 12-20-2023 ambulatory Cristiane Willem Gutiérrez Facility:[facility] Start: 12-02-2023 ambulatory [facility] Start: 10-25-2023 End: 10-25-2023 ambulatory IRMA ALCANTARAZIO Not Available Start: 08-25-2023 End: 08-25-2023 ambulatory IRMA HALEY Not Available Start: 10-15-2022 Orders Only Glenroy Syed PAINTER FOREMAN.BREAKER TENDER Work Phone: Neurology Comment on above: 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 Start: 09-09-2022 ambulatory Mauri Ross RT(R) Ra soto Comment on above: Radiology MRI Start: 09-09-2022 Patient encounter procedure Mauri Ross RT(R) RONALDO EASON Start: 09-02-2022 End: 09-02-2022 ambulatory ELENA GUAN Facility: Start: 08-24-2022 End: 08-24-2022 ambulatory GLENROY SYED Facility:[facility] Start: 08-24-2022 End: 08-24-2022 Patient encounter procedure Janell Sy MD Work Phone: Cardiology Comment on above: KANG (obstructive sle ep apnea) (Primary Dx); Dizziness; Palpitations; Obesity, morbid, BMI 40.0-49.9 (HCC); SVT (supraventricular tachycardia) (HCC); Chronic fatigue; Vitamin D deficiency Start: 08-20-2022 Orders Only Len Shea PAINTER FOREMAN.BREAKER TENDER Work Phone: Neurology Comment on above: Ocular migraine (Dinora andres Dx) Start: 08-19-2022 End: 08-19-2022 ambulatory [facility] Neurology Comment on above: Neuro Ophthalmologis t Start: 08-16-2022 ambulatory [facility] Neurology Comment on above: MRI Start: 08-12-2022 End: 08-12-2022 ambulatory GLENROY SYED Facility:[facility] Start: 08-12-2022 End: 08-12-2022 ambulatory Carmen Seese PT Work Phone: Physical Therapy Comment on above: Dizziness (Primary D x); Cervicalgia; Headaches Start: 08-05-2022 End: 08-05-2022 ambulatory GLENROY SYED Facility:[facility] Start: 08-05-2022 End: 08-05-2022 ambulatory Carmen Seese PT Work Phone: Physical Therapy Comment on above: Dizziness (Primary D x); Cervicalgia; Headaches Start: 07-29-2022 End: 07-29-2022 ambulatory WM RODRIGUEZ Facility:[facility] Start: 07-21-[address] MERT LAMA Facilit y:[facility] Start: 07-07-2022 Telephone encounter Glenroy rodriguez PAINTER FOREMAN.BREAKER TENDER Work Phone: Neurology Comment on above: Received Outside Med ical Records Start: 07-07-2022 End: 07-07-2022 ambulatory GLENROY SYED Facility:[facility] Start: 07-07-2022 End: 07-07-2022 Patient encounter procedure Glenroy Syed PAINTER FOREMAN.BREAKER TENDER Work Phone: Neurology Comment on above: Dizziness [...] Patient encounter procedure Pamella SANABRIA [facility] Start: 11-25-2021 End: 11-26-[address] MERT LAMA Facility:[facility] Start: 11-23-2021 Encounter for genera l adult medical examination without abnormal findings DR MERT LAMA [facility] Start: 11-19-2021 End: 11-20-[address] MERT LAMA Facility:[facility] Start: 11-19-2021 End: 11-20-2021 Encounter for general adult medical examination without abnormal findings DR MERT LAAM Facility:[facility] Start: 11-17-2021 End: 11-18-2021 ambulatory MERT LAMA Facility:[facility] Start: 11-14-2021 End: 11-15-2021 ambulatory ANU CABAN Facility:[facility] Start: 10-08-2021 End: 10-08-2021 ambulatory WM RODRIGUEZ Facility:[facility] Start: 06-17-2021 End: 06-18-2021 ambulatory MERT LAMA Facility:[facility] Start: 04-16-2021 End: 05-23-2021 ambulatory MERT LAMA Facility:[facility] Start: 12-05-2020 End: 12-06-2020 ambulatory MERT LAMA Facility:[facility] Procedures Date Procedure Procedure Detail Performing Clinician Start: 08-24-2022 Ecg routine ecg w/le ast 12 lds i&r only [facility] Provider Start: 12-05-2020 ANESTH KNEE AREA SURGERY MERT LAMA Start: 12-05-2020 REMOVE FEMUR LESION CARLOS HAEL P MIKA Start: 11-28-2020 Antibody screen MERT ORTIZ Comment on above: Performed By: #### 6 [id number] #### [facility] [employer]. [address] Start: 11-04-2020 Cystourethroscopy wi th dilation of urethral stricture Pamella DANIELE Abdominal hysterectomy Wale ZIMMERMANWillem Bilateral complete salpingectomy Pamella DANIELE Cardiac radiofrequen cy ablation using ultrasound guidance Pamella DANIELE Cholecystectomy Pamella ZIMMERMANWillem Excision of osteochondroma Nestor SANABRIA History of ankle surgery Carlos ZIMMERMANWillem Plan of Treatment Date Care Activity Detail Author Start: 08-08-2022 DEPRESSION ASSESSMENT DEPRESSION ASS [facility] Start: 07-07-2022 End: 09-06-2022 25-hydroxyvitamin D3 [Mass/volume] in Serum or Plasma [facility] Work Phone: Comment on above: Expected: 07/07/2022 , Expires: 09/06/2022 Start: 07-07-2022 End: 09-06-2022 ESEQUIEL BY IFA WITH REFLEX [facility] Work Phone: Comment on above: Expected: 07/07/2022 , Expires: 09/06/2022 Start: 04-08-2022 Influenza vaccination INFLUENZA (#1) [facility] Start: 08-08-2021 DEPRESSION ASSESSMENT DEPRESSION ASS [facility] Start: 11-05-2020 COVID-19 VACCINE (3 - Booster for Giancarlo series) COVID-19 VACCINE (3 - Booster for Giancarlo series) [facility] Start: 2012 HPV TESTING HPV TESTING [facility] Start: 11-30-2003 PAP TESTING PAP TESTING [facility] Start: 2001 Urine microalbumin profile DTA P,TDAP,TD (1 - Tdap) [facility] Start: 2000 HEPATITIS C SCREENING HEPATITIS C SC PARKER [facility] Start: 2000 HIV SCREENING HIV SCREENING [facility] Start: 1982 HEPATITIS B (1 of 3 - 3-dose series) HEPATITIS B (1 of 3 - 3-dose series) [facility] End: 08-24-2023 ECG COMPLETE ECG COMPLETE ECG Routine Dizziness Palpitations Obesity, morbid, BMI 40.0-49.9 (HCC) 1 Occurrences starting 08/24/2022 until 08/24/2023 [facility] Work Phone: Comment on above: 1 Occurrences starti ng 08/24/2022 until 08/24/2023 ECG COMPLETE ECG COMPLETE ECG 08/24/2022 1:56 PM EST [facility] End: 07-07-2023 Echocardiography ECHO Cardiology Routine Palpitations 1 Occurrences starting 07/07/2022 until 07/07/2023 [facility] Work Phone: Comment on above: 1 Occurrences starti ng 07/07/2022 until 07/07/2023 End: 08-06-2023 Mri brain brain stem w/o w/contrast material MRI BRAIN WO/W IVCON Radiology Routine Dizziness Vision changes 1 Occurrences starting 07/07/2022 until 08/06/2023 [facility] Work Phone: Comment on above: 1 Occurrences starti ng 07/07/2022 until 08/06/2023 End: 09-15-2023 Mri spinal canal cervical w/o & w/contr matrl MRI CERVICAL SPINE WO/W IVCON Radiology Routine Dizziness Vision changes Cervicalgia Disturbance of skin sensation 1 Occurrences starting 08/16/2022 until 09/15/2023 [facility] Work Phone: Comment on above: 1 Occurrences starti ng 08/16/2022 until 09/15/2023 [facility] Immunizations Immunization Date Immunization Notes Care Provider Tayo cullen 09-10-2020 SARS-CoV-2 (COVID-19 ) Ad26 vaccine, recombinant Pamella NILL [facility] 08-12-2020 SARS-CoV-2 (COVID-19 ) Ad26 vaccine, recombinant Pamella NILL [facility] Payers Date Payer Category Payer Unknown [id number] 2021 Unknown [id number] 1982 Unknown [id number] 2.16.8 40.1.103243.3.579.2.647 1982 Unknown [id number] 2.16.8 40.1.132252.3.579.2.647 1982 Unknown [id number] 2.16.8 40.1.455320.3.579.2.647 1982 Unknown [id number] 2.16.8 40.1.368146.3.579.2.647 1982 Unknown [id number] 2.16.84 0.1.802482.3.579.2.593 1982 Unknown [id number] 2.16.84 0.1.384353.3.579.2.593 1982 Unknown [id number] 2.16.84 0.1.491275.3.579.2.593 1982 Unknown [id number] 2.16.84 0.1.468665.3.579.2.593 1982 Unknown [id number] 2.16.84 0.1.360705.3.579.2.593 1982 Unknown [id number] 2.16.84 0.1.206512.3.579.2.593 1982 Unknown [id number] 2.16.84 0.1.196167.3.579.2.593 1982 Unknown [id number] 2.16.84 0.1.916101.3.579.2.593 1982 Unknown [id number] 2.16.84 0.1.786280.3.579.2.593 1982 Unknown [id number] 2.16.84 0.1.345012.3.579.2.593 1982 Unknown [id number] 2.16.84 0.1.969625.3.579.2.593 1982 Unknown [id number] 2.16.84 0.1.203570.3.579.2.593 1982 Unknown [id number] 2.16.84 0.1.872660.3.579.2.593 1982 Unknown [id number] 2.16.84 0.1.999782.3.579.2.593 1982 Unknown [id number] 2.16.84 0.1.793969.3.579.2.593 1982 Unknown [id number] 2.16.84 0.1.555722.3.579.2.1259 1982 Unknown [id number] 2.16.84 0.1.645569.3.579.2.1259 1982 Unknown [id number] 2.16.8 40.1.653359.3.579.2.727 1959 Unknown [id number] Social History Date Type Detail Facility Start: 12-09-2021 End: 07-07-2022 Tobacco smoking status Never smoked tobacco (finding) [facility] [place] Tobacco smoking status Never [facility] [place] Sex Assigned At Female [facility] [place] Start: 07-07-2022 Tobacco use and exposure Smokeless tobacco non-user [facility] Start: 1980 Sex Assigned At Not on file [facility] Start: 06-27-2022 End: 07-07-2022 Exposure to SARS-CoV-2 (event) Not sure [facility] Start: 08-24-2022 Alcohol intake Current drinke r of alcohol (finding) [facility] Start: 08-24-2022 Alcohol Comment occasionally 1 -2 times a months 2-3 drinks [facility] Clinical Notes 12-30-2021 to 10-14-2022 Mauri Ross, RT(R) - 09/09/2022 2:11 PM Marilyn Sy MD - 08/24/2022 1:45 PM ESTTelephone Encounter - Glenroy Syed APRN.SARIKA - 08/16/2022 8:28 AM Elio Johnson PT - 08/12/2022 2:51 PM EST Note Date & Type Note Facility 10-14-2022 Note HNO ID: [id number] Author: RT Mary(Matteo) Service: ? Author Type: [...] RT Mary(R) October 14, 2022 4:55 PM [facility] 10-14-2022 Note HNO ID: [id number] Author: Papa Rea RN Service: Radiology Author [...] DATE: October 14, 2022 TIME: 3:20 PM [facility] 09-09-2022 Note HNO ID: [id number] Author: RT Odessa(Matteo) Service: ? Author Type: [...] 09, 2022 TIME: 2:11 PM PAGER/CONTACT #: [facility] 09-09-2022 History of Present illness Narrative RADIOLOGY SERVICE PROGRESS NOTE DATE OF SERVICE: September 09, 2022 TIME OF SERVICE: 2 pm EVENT: EXAM/PROCEDURE NOT COMPLETED - Patient became claustrophobic, reaction was: Moderate. ADDITIONAL EVENT DETAILS: No images acquired. Patient to r/s on large bore mri scanner. SIGNATURE: RT Odessa(R) PATIENT NAME: Kaila Vasqeuz DATE: September 09, 2022 TIME: 2:11 PM PAGER/CONTACT #: documented in this encounter [facility] 08-24-2022 Note HNO ID: [id number] Author: Janell Sy MD Service: ? Author Type: Physician Type: Progress Notes Filed: 08/24/2022 2:17 PM Note Text: [facility] [place] SECTION OF REGIONAL CARDIOLOGY OUTPATIENT VISIT DATE [...] Cardiac work-up includes: Echocardiogram on 05/19/2020 at [facility] showed normal ejection fraction. No valvular [...] 4. Obesity, morbid, BMI 40.0-49.9 ([facility]) E66.01 ECG COMPLETE 5. SVT (supraventricular tachycardia) ([facility]) I47.1 6. Chronic fatigue R53.82 7. [...] ventricular contraction) SVT (supraventricular tachycardia) ([facility]) Vitamin D deficiency No past surgical history on file. Social History Tobacco Use Smoking status: Never Smokeless tobacco: Never Vaping U (more content not included)... [facility] 08-24-2022 History of Present illness Narrative Images from the original note were not included. [facility] [place] SECTION OF REGIONAL CARDIOLOGY OUTPATIENT VISIT DATE [...] Cardiac work-up includes: Echocardiogram on 05/19/2020 at [facility] showed normal ejection fraction. No valvular [...] 4. Obesity, morbid, BMI 40.0-49.9 ([facility]) E66.01 ECG COMPLETE 5. SVT (supraventricular tachycardia) ([facility]) I47.1 6. Chronic fatigue R53.82 7. [...] ventricular contraction) SVT (supraventricular tachycardia) ([facility]) Vitamin D deficiency No past surgical [...] twice daily.^Disp: ^Rfl: documented in this encounter [facility] 08-19-2022 Note HNO ID: [id number] Author: Mauri Chun OD Service: ? Author Type: PERSON INVESTIGATOR Type: Progress Notes Filed: 08/19/2022 10:22 AM Note Text: Ocular health is unremarkable with no abnormalities. Normal ON appearance Ophthalmic migraines Glasses Rx given with slight prism [facility] 08-16-2022 Miscellaneous Notes signed We can add it to fully evaluate her symptoms. -LP documented in this encounter [facility] 08-12-2022 Note HNO ID: [id number] Author: Carmen Johnson, PT Service: ? Author [...] Time Minutes (timed/untimed): 60 Carmen Johnson, PT [facility] 08-12-2022 History of Present illness Narrative [...] Carmen Johnson PT documented in this encounter [facility] 08-05-2022 Note HNO ID: [id number] Author: Carmen Johnson PT Service: ? Author [...] Planned: 8 Planned Treatment Interventions: Therapeutic exercise (99153);Neuromuscular re-education (00384);Manual therapy (48262);Therapeutic activities (28451);Self-usp management (23992);Patient/Family/Caregiver Education;Gait Training (32132);Canalith Repositioning Maneuvers (73769) PLAN FOR NEXT VISIT: Detailed neck exam [...] Premature atrial contra (more content not included)... [facility] 08-05-2022 History of Present illness Narrative [...] Planned: 8 Planned Treatment Interventions: Therapeutic exercise (34321);Neuromuscular re-education (85709);Manual therapy (04046);Therapeutic activities (41159);Self-usp management (20859);Patient/Family/Caregiver Education;Gait Training (40518);Canalith Repositioning Maneuvers (59361) PLAN FOR NEXT VISIT: Detailed neck exam [...] present Head Shake: Negative Positional Testing Right [place] [place]: No nystagmus;Asymptomatic Left [place]: No nystagmus;Asymptomatic Right [...] Carmen Johnson PT documented in this encounter [facility] 07-07-2022 Note HNO ID: [id number] Author: Glenroy Syed APRN.BREAKER TENDER Service: ? Author Type: Nurse Practitioner Type: Progress Notes Filed: 07/07/2022 12:28 PM Note Text: [facility] General Neurology New Patient Evaluation CHIEF COMPLAINT: [...] over a month. 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 A couple times a month she [...] for 1 dose.N (more content not included)... [facility] 07-07-2022 Miscellaneous Notes Noted. Provider notified. Received medical records from [facility]. Uploaded to chart and forwarded for review. documented in this encounter [facility] 07-07-2022 Instructions Glenroy Syed APRN.BREAKER TENDER - 07/07/2022 9:06 AM EST Plan: Baseline labs MRI Brain for multiple symptoms ECHO for palpitations and arrhythmias Aspirin 81mg daily in the setting of known arrhythmias Consult to [place] for dizziness Consult to Cardiology for second opinion Consult to ophthalmology Follow up after testing documented in this encounter [facility] 07-07-2022 History of Present illness Narrative Images from the original note were not included. [facility] General Neurology New Patient Evaluation CHIEF COMPLAINT: [...] over a month. 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 A couple times a month she [...] Finger Abduction (U) 5 Finger Abduction 5 Freelance Patternmaker 5 Freelance Patternmaker 5 Right Lower Extremity: (of 5) Left [...] over a month. 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 A couple times a month she [...] [place] reccommended. Patient wanting second opinion from wax ball knock out worker within the [facility], referral placed. Unlikely autonomic dysfunction with unremarkable tilt and orthostatic vitals in office unconvincing (did not take BB today). Additionally, with visual changes, recommended seeing neuro private advisor. Will obtain additional labs as well. Follow [...] which included preparing to see the patient, [id number] patient care, completing clinical documentation, obtaining and/or reviewing separately obtained history, performing a medically appropriate examination, counseling and educating the patient/family/caregiver, ordering medications, tests, or procedures, and care coordination (not separately reported). Glenroy Syed APRN.CNP [facility] General Neurology [address] [place] [address] Appointment: [phone] In regards to blood work, testing, and radiology reports these are released automatically to the patients. We do not comment on most testing on [employer] in a message or commentary unless there [...] your PCP/referring physician documented in this encounter [facility] 03-16-2022 Note EXAM: CHEST 2 VIEWS HISTORY: [...] authenticated by: YELENACARMEL ANDREW Date: 2022-03-16 18:13 [facility] 12-30-2021 Note [facility] [place], [place] NAME: KAIAL VASQUEZ DATE OF : MEDICAL REC#: [id number] PROOF LOAD MECHANIC: [address] [facility], TRANSADMIT DATE: 12/30/2021 09:02:00 DISTRIBUTION FIELD TECHNICIAN DATE: 12/30/2021 21:00 DICTATING PHYSICIAN: PAMELLA SANABRIA [...] DR PAMELLA SANABRIA . 01/06/2022 08:31:00 [facility] Evaluation + Plan note No data available for this section General Surgery [place] Evaluation note Diagnosis Dizziness- Primary Dizziness and giddiness Migraine aura without headache Migraine with aura, without mention of intractable migraine without mention of status migrainosus Palpitations Chronic fatigue Other malaise and fatigue Vision changes Unspecified visual disturbance Disturbance of skin sensation [facility] D[facility]- Primary Dizziness and giddiness Cervicalgia Headaches [facility] Diagnosis Dizziness- Primary Dizziness and giddiness Cervicalgia Headaches [facility] Diagnosis Cervicalgia- Primary Dizziness Dizziness and giddiness Vision changes Unspecified visual disturbance Disturbance of skin sensation [facility] Diagnosis Ocular migraine- Primary Other forms of migraine, without mention of intractable migraine without mention of status migrainosus [facility] Diagnosis KANG (obstructive sleep apnea)- Primary Obstructive sleep apnea (adult) (pediatric) Dizziness Dizziness and giddiness Palpitations Obesity, morbid, BMI 40.0-49.9 (HCC) Morbid obesity SVT (supraventricular tachycardia) ([facility]) Other specified cardiac dysrhythmias Chronic fatigue Other malaise and fatigue Vitamin D deficiency Unspecified vitamin D deficiency [facility] Diagnosis Degeneration of intervertebral disc of cervical region with osteophyte of cervical vertebra- Primary [facility] No data available for this section General Surgery [place] Reason for referral (narrative)* Outpatient Procedure (Routine) - Authorized Specialty Diagnoses / Procedures Referred By Contac t Referred To Contact [facility] Diagnoses Dizziness Palpitations Obesity, morbid, BMI 40.0-49.9 ([facility]) Procedures ECG COMPLETE ECG ROUTINE ECG W/LEAST 12 LDS W/I&R Janell Sy MD [address] [place] [address] Heart [facility] [place] [address] [id number] Referral ID Status Reason Start Date Expiration Date Visits Requested Visits Authorized [id number] Authorized Auto-Generat ed Referral 08/24/2022 08/24/2023 1 1 [facility] Summary Purpose Family History No Family [...] By Contac t Referred To Contact [facility] [place] Diagnoses Degeneration of intervertebral disc of cervical region with osteophyte of cervical vertebra Procedures CONSULT TO [facility] OFFICE/OUTPATIENT [facility] 60-74 MINUTES Glenroy Syed, PAINTER FOREMAN.BREAKER TENDER [address] [place] [address] Referral ID Status Reason Start Date Expiration Date Visits Requested Visits Authorized [id number] Authorized PCP Requested Referral 10/15/2022 10/15/2023 1 1 Specialty Diagnoses / Procedures Referred By Contac t Referred To Contact Ophthalmology Diagnoses Ocular migraine Procedures CONSULT TO OPHTHALMOLOGY OFFICE/OUTPATIENT [facility] 60-74 MINUTES Len Shea, PAINTER FOREMAN.BREAKER TENDER [address] [facility] [phone] [place] [address] Josefina Grimes MD [address] [place] [address] Referral ID Status Reason Start Date Expiration Date Visits Requested Visits Authorized [id number] Authorized PCP Requested Referral 08/20/2022 08/20/2023 1 1 Specialty Diagnoses / Procedures Referred By Contac t Referred To Contact Cardiology Diagnoses Dizziness Palpitations Procedures CONSULT TO CARDIOLOGY OFFICE/OUTPATIENT [facility] 60-74 MINUTES Glenroy Syed, ELISEO.BREAKER TENDER [address] [place] [address] Referral ID Status Reason Start Date Expiration Date Visits Requested Visits Authorized [id number] Authorized PCP Requested Referral 2 07/07/2023 1 1 Specialty Diagnoses / Procedures Referred By Contac t Referred To Contact MR IMAGING Diagnoses Dizziness Vision changes Procedures MRI BRAIN WO/W IVCON MRI BRAIN BRAIN STEM W/O W/CONTRAST MATERIAL Glenroy Syed APRN.BREAKER TENDER [id number] [place], [place] [id number] Mr Imaging Referral ID Status Reason Start Date Expiration Date Visits Requested Visits Authorized [id number] Authorized Auto-Generat ed Referral 2 08/21/2022 1 1 Specialty Diagnoses / Procedures Referred By Contac t Referred To Contact Ophthalmology Diagnoses Vision changes Procedures CONSULT TO OPHTHALMOLOGY OFFICE/OUTPATIENT [facility] 60-74 MINUTES Glenroy Syed, PAINTER FOREMAN.BREAKER TENDER [address] [place] [address] Josefina Grimes MD [address] [phone] Referral ID Status Reason Start Date Expiration Date Visits Requested Visits Authorized [id number] Authorized PCP Requested Referral 2 07/07/2023 1 1 Specialty Diagnoses / Procedures Referred By Contac t Referred To Contact [facility] Diagnoses Palpitations Procedures ECHO ECHO TTHRC R-T 2D W/WOM-MODE COMPL SPEC&COLR D Glenroy Syed, ELISEO.BREAKER TENDER [address] [id number] [facility] [place] [address] [place] [address] Referral ID Status Reason Start Date Expiration Date Visits Requested Visits Authorized [id number] Authorized Auto-Generat ed Referral 2 07/07/2023 1 1 Additional Source Comments INFORMATION SOURCE (unrecogn ized section and content) DATE CREATED AUTHOR 11/24/2021 [facility] DATE CREATED AUTHOR AUTHOR'S ORGANIZ ATION [facility]/20/2022 [facility] DATE CREATED AUTHOR AUTHOR'S ORGANIZ ATION 09/06/2022 [facility] DATE CREATED AUTHOR AUTHOR'S ORGANIZ ATION 10/16/2022 [facility] DATE CREATED AUTHOR AUTHOR'S ORGANIZ ATION 10/26/2023 [facility] DATE CREATED AUTHOR AUTHOR'S ORGANIZ ATION 01/04/2024 [facility] DATE CREATED AUTHOR AUTHOR'S ORGANIZ ATION 03/09/2024 [facility] Source Comments (unrecognize d section and content) In the event this informatio n is protected by the Federal Confidentiality of Alcohol and Drug Abuse Patient Records regulations: The Federal rules restrict any use of the information to criminally investigate or prosecute any alcohol or drug abuse patient.[facility] the event this information is protected by the Federal Confidentiality of Alcohol and Drug Abuse Patient Records regulations: The Federal rules restrict any use of the information to criminally investigate or prosecute any alcohol or drug abuse patient.[facility] Administration[facility] the event this information is protected by the Federal Confidentiality of Alcohol and Drug Abuse Patient Records regulations: The Federal rules restrict any use of the information to criminally investigate or prosecute any alcohol or drug abuse patient.[facility] Administration[facility] the event this information is protected by the Federal Confidentiality of Alcohol and Drug Abuse Patient Records regulations: The Federal rules restrict any use of the information to criminally investigate or prosecute any alcohol or drug abuse patient.[facility] Administration[facility] the event this information is protected by the Federal Confidentiality of Alcohol and Drug Abuse Patient Records regulations: The Federal rules restrict any use of the information to criminally investigate or prosecute any alcohol or drug abuse patient.[facility] AdministrationIn the event this information is protected by the Federal Confidentiality of Alcohol and Drug Abuse Patient Records regulations: The Federal rules restrict any use of the information to criminally investigate or prosecute any alcohol or drug abuse patient.[facility] Administration[facility] the event this information is protected by the Federal Confidentiality of Alcohol and Drug Abuse Patient Records regulations: The Federal rules restrict any use of the information to criminally investigate or prosecute any alcohol or drug abuse patient.[facility] Administration[facility] the event this information is protected by the Federal Confidentiality of Alcohol and Drug Abuse Patient Records regulations: The Federal rules restrict any use of the information to criminally investigate or prosecute any alcohol or drug abuse patient.[facility] Administration[facility] the event this information is protected by the Federal Confidentiality of Alcohol and Drug Abuse Patient Records regulations: The Federal rules restrict any use of the information to criminally investigate or prosecute any alcohol or drug abuse patient.[facility] AdministrationIn the event this information is protected by the Federal Confidentiality of Alcohol and Drug Abuse Patient Records regulations: The Federal rules restrict any use of the information to criminally investigate or prosecute any alcohol or drug abuse patient.[facility] Reason for Visit (unrecogniz ed section and [...] NEW RS PT VESTIBULAR DIZZY Glenroy Syed, PAINTER FOREMAN.BREAKER TENDER [address] [place] [address] Carmen Johnson, PT [address] [place] [address] Referral ID Status Reason Start Date Expiration Date Visits Re quested Visits Authorized [id number] Closed 08/08/2021 08/07/2022 30 30 Reason Comments Physical Therapy Specialty Diagnoses / Procedures Referred By Contac t Referred To Contact PHYSICAL THERAPY Diagnoses Dizziness Procedures Physical Therapy Glenroy Syed, PAINTER FOREMAN.BREAKER TENDER [id number] [place] [address] [address] [place] [facility] [address] [place] [address] Referral ID Status Reason Start Date Expiration Date V isits Requested Visits Authorized [id number] Pending Review 08/12/2022 11/10/2022 1 1 Reason Comments Establish Care Palpitations Dizziness Specialty Diagnoses / Procedures Referred By Contac t Referred To Contact Cardiology Diagnoses Dizziness Palpitations Procedures CONSULT TO CARDIOLOGY OFFICE/OUTPATIENT NEW HIGH MDM 60-74 MINUTES Glenroy Syed, PAINTER FOREMAN.BREAKER TENDER [id number] [place] [address] Referral ID Status Reason Start Date Expiration Date V isits Requested Visits Authorized [id number] Closed PCP Requested Referral 07/07/2022 07/07/2023 1 1 Reason Comments Radiology MRI Care Teams (unrecognized sec tion and content) Manager Reimbursement Relationship Specialty Start Date End Date Mert Lama MD [address] [place] [address] Referring Family Medicine 06/10/22 Manager Reimbursement Relationship Specialty Start Date End Date Mert Lama MD [address] [place] [address] Referring Family Medicine 06/10/22 Manager Reimbursement Relationship Specialty Start Date End Date Mert Lama MD [address] [place] [address] Referring Family Medicine 06/10/22 Manager Reimbursement Relationship Specialty Start Date End Date Mert Lama MD [address] [place] [address] Referring Family Medicine 06/10/22 Manager Reimbursement Relationship Specialty Start Date End Date Mert Lama MD [address] [place] [address] Referring Family Medicine 06/10/22 Manager Reimbursement Relationship Specialty Start Date End Date Mert Lama MD [address] [place] [address] Referring Family Medicine 06/10/22 Manager Reimbursement Relationship Specialty Start Date End Date Mert Lama MD [address] [place] [address] Referring Family Medicine 06/10/22 Manager Reimbursement Relationship Specialty Start Date End Date Mert Lama MD [address] [place] [address] Referring Family Medicine 06/10/22 FOR RECORDS PERTAINING [...] BE BASED ON THE PRIMARY CLINICAL RECORDS. [facility]. provides no warranty or guarantee of the accuracy or completeness of information in this document.
[2024-03-27 07:04] VITALS: BP 129/90; PULSE 80; TEMP 36.7; O2SAT 96
[2024-03-27] MEDS: 0.9 % SODIUM CHLORIDE 500 ML IV (07:11)
[2024-03-27] MEDS: BUPIVACAINE HCL 0.25% PF 25 MG/10 ML VIAL 4 ML INJ (07:44)
[2024-03-27] MEDS: METHYLPREDNISOLONE ACETATE 40 MG/ML VIAL INJ (07:45)
[2024-03-27] MEDS: LIDOCAINE HCL 2% 400 MG/20 ML MDV 5 ML INJ (07:45)
[2024-03-27 07:47] VITALS: BP 111/78; PULSE 86; TEMP 36.5; O2SAT 98
[2024-03-27 07:52] VITALS: BP 120/70; PULSE 84; O2SAT 95
--- NOTE | 2024-03-27 08:26 | W.PM.PROCNOT ---
Date of procedure: 03/27/24 Pre-op diagnosis: Lumbar spondylosis Post-op diagnosis: same as pre-op Procedure: Right Lumbar 4/5, 5/sacral 1 Radiofrequency ablation Under fluoroscopic guidance Rhizotomy was created using radio frequency ablation at 80?C for 90 seconds 1 to 2 lesions created at each site. Post lesioning injection of 2 mL each of 0.25% Marcaine and 2% lidocaine with Depo-Medrol 40mg. 0.5 to 1 mL injected at each site IV in place yes If Intravenous fluids: NS at KVO Anesthesia local 2% lidocaine for Anesthesia Other: MAC Timeout process compliant After informed consent obtained.Patient brought to the procedure room placed in the prone position skin overlying the area was prepped and draped in a sterile fashion using betadine. 25 gauge needle was used to create a skin wheal over each of the targeted areas utilizing 2% lidocaine. A rhizotomy needle with a 10 mm active tip was inserted over each of the anesthetized areas and directed towards each of the medial branches accomplished under fluoroscopic guidance. after encountering the same we had positive sensory stimulation, negative motor stimulation was noted. lesions were then created. Post lesioning, steroid solution was injected needles removed. Patient was transferred to recovery room in stable condition to be discharged home after meeting criteria. Anesthesia: MAC Surgeon: Pedro Mccormick Condition: stable
== END 2024-03-27 08:14 | disposition home or self-care (01) ==
LOC: SURGOUT 06:57
PROVIDERS: PCP Family Medicine; Visit Provider Anesthesiology Pain Medicine
PROC: (CPT 1992; principal; 2024-03-27 08:00)
DX: M47.816 Spondylosis without myelopathy or radiculopathy, lumbar region (principal)
CPT/HCPCS: 64635; 64636; J0665; J1010; J2704

== ENCOUNTER 2024-04-26 10:23 | Outpatient (OUT) | payer BC, SELFPAY ==
--- OUTSIDE RECORDS SUMMARY | 2024-04-26 10:28 | XMS_ITS | CCD ---
Author Organization [facility] Care Team Providers Care Network Cable Installer Name Role Phone MERT LAMA Referring Unavailable PAMELLA BRENNAN Attending Unavailable MIKAPAMELLA Joyner Surgeon Unavailable PAMELLA BRENNAN Admitting Unavailable [facility] Procedure Practitioner Unavailab MERT Caban Primary Care [...] Unavailable JENNIFER, WM Consulting Unavailable LAMA, DR METR Forrest Primary Care Unavailable JENNIFER, WM Admitting [...] in NaCl (PF) 0.9% 10 mL injection (DEFINHolisol logistics) (10 sources) Start: 07-07-20 End: 10-06-19 24 [...] above: Take 1 capsule by [facility] once daily. 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 RAD - MRI Report [id number]#1.00 TIFF Normal [facility] RAD - MRI Report [id number]#1.00 TIFF Normal [facility] RAD - MRI Report [id number]#1.0 0TIFF Normal [facility] RAD - MRI Report [id number]#1.00 TIFF Normal [facility] Physician Orderon 12-22-2023 Physician Order [id number]#1.00 TIFF Normal [facility] Provider Letteron 12-21-2023 Provider Letter December 21, 2023 [place] [address] : 1980 To Whom It May Concern, Please excuse above patient from work. Date of Illness: From: 12/19/2023 To: 12/21/2023 May Return to Work On: 12/22/2023 Sincerely, [place] [address] Normal [facility] Lab Reportson 12-20-2023 Lab Reports [id number]#1.00 TIFF Normal [facility] Physician Orderon 12-20-2023 Physician Order [id number]#1.[address] [facility] RAD - MISCon 12-20-2023 RAD - MISC [id number]#1.[address] [facility] Ambulatory Visit Summaryon 0 12-19-2023 Ambulatory [...] 40.0-44.9, adult Non-smoker Pickup at [facility]/pharmacy #6177 New meloxicam (meloxicam 15 mg Tab) 1 Tablets By Mouth Every day Low back pain with sciatica BMI 40.0-44.9, adult [facility] New methylPREDNISolone (Medrol 4 mg Tab) 1 Packets By Mouth As Directed Low back pain with sciatica BMI 40.0-44.9, adult Non-smoker Duration: 6 Days as directed on package labeling Pickup at [facility]/pharmacy #6177 Unchanged metoprolol (Metoprolol tartrate 50 mg Tab) 1 Tablets By Mouth 2 times a day [facility] Information [facility] [address], [place] [phone] Medications and Immunizations Administered Given ketorolac 30 [...] choosing us for your care. 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 Had x-ray done at [facility] for spine over a year or [...] spasm, 20 cap(s), Refill(s) 0, [facility]/pharmacy #6177, 165.1, cm, 12/19/23 13:17:00 EDT, Height/Length Dosing, 114.6, kg, 12/19/23 13:17:00 EDT, Weight Dosing ketorolac, 30 mg = 1 mL, Injection, IntraMuscular, Once, Stop date 12/19/23 13:35:00 EDT, Routine, Start date 12/19/23 13:35:00 EDT, 12/19/23 13:35:00 EDT meloxicam, 15 mg = 1 tab(s), Oral, Daily, # 30 tab(s), Refills(s) 0, Pharmacy: [facility]/pharmacy #6177, 165.1, cm, 12/19/23 13:17:00 EDT, Height/Length Dosing, 114.6, kg, 12/19/23 13:17:00 EDT, Weight Dosing methylPREDNISolone, = 1 packet(s), Oral, As Directed, as directed on package labeling, X 6 day(s), # 21 tab(s), Refills(s) 0, Pharmacy: [facility]/pharmacy #6177, 165.1, cm, 12/19/23 13:17:00 [...] 30 tab(s), Refills(s) 0, Pharmacy: [facility]/pharmacy #6177, 165.1, cm, 12/19/23 13:17:00 EDT, Height/Length Dosing, 114.6, kg, 12/19/23 13:17:00 EDT, Weight Dosing methylPREDNISolone, = 1 packet(s), Oral, As Directed, as directed on package labeling, X 6 day(s), # 21 tab(s), Refills(s) 0, Pharmacy: [facility]/pharmacy #6177, 165.1, cm, 12/19/23 13:17:00 EDT, Height/Length Dosing, 114.6, kg, 12/19/23 13:17:00 EDT, Weight Dosing 3. Non-smoker (Z78.9: Other specified health status) continue not smoking Ordered: cyclobenzaprine, 15 mg, 1 cap(s), Oral, Bedtime for spasm, 20 cap(s), Refill(s) 0, [facility], 165.1, cm, 12/19/23 13:17:00 EDT, Height/Length Dosing, 114.6, kg, 12/19/23 13:17:00 EDT, Weight Dosing ketorolac, 30 mg = 1 mL, Injection, IntraMuscular, Once, Stop date 12/19/23 13:35:00 EDT, Routine, Start date 12/19/23 13:35:00 EDT, 12/19/23 13:35:00 EDT meloxicam, 15 mg = 1 tab(s), Oral, Daily, # 30 tab(s), Refills(s) 0, Pharmacy: [facility]/pharmacy #6177, 165.1, cm, 12/19/23 13:17:00 EDT, Height/Length Dosing, 114.6, kg, 12/19/23 13:17:00 EDT, Weight Dosing methylPREDNISolone, = 1 packet(s), Oral, As Directed, as directed on package labeling, X 6 day(s), # 21 tab(s), Refills(s) 0, Pharmacy: [facility]/pharmacy #6177, 165.1, cm, 12/19/23 13:17:00 EDT, Height/Length Dosing, 114.6, kg, 12/19/23 13:17:00 EDT, Weight Dosing Follow-up No qualifying data available Problem List/Past Medical History Ongoing Anemia Anxiety (more content not included)... [facility] Comment on above: Result Comment: Elec tronically Signed By: Cristiane Brasher.br\Date and Time Signed: 12/19/23 13:59 EDT Physician Orderon 12-19-2023 Physician Order [id number]#[address] [facility] Consultation Noteon 02-15-20 Consultation Note [id number]#1.0 0CD:127 [facility] Consultation Noteon 02-05-20 Consultation Note [id number]#1.0 0CD:127 [facility] Comment on above: Other Comment: INCOM PLETE FAX.NDW Formson 02-02-2023 Forms [id number]#1.0 0CD:127 [facility] Consultation Noteon 01-29-20 Consultation Note [id number]#1.00 CD:127 [facility] Cardiovascular Reporton 01-06 Cardiovascular Report [id number]#1.0 0CD:127 [facility] MRI BRAIN WO/W IVCONon 10-14 MRI [...] cord. No mass or pathologic intradural enhancement. Button Bradder: NARCISO Transcribe Date/Time: Oct 14 2022 8:43P Dictated by : UNIQUE ANDERSON MD This examination was interpreted and the report reviewed and electronically signed by: UNIQUE ANDERSON MD on Oct 14 2022 8:51PM EST [id number] Normal [facility] MRI CERVICAL SPINE WO/W IVCO Non [...] cord. No mass or pathologic intradural enhancement. Button Bradder: NARCISO Transcribe Date/Time: Oct 14 2022 8:43P Dictated by : UNIQUE ANDERSON MD This examination was interpreted and the report reviewed and electronically signed by: UNIQUE ANDERSON MD on Oct 14 2022 8:51PM EST [id number] Normal [facility] CBC AUTO DIFFon 09-02-2022 BASO # 0.1 103/ul Normal 0.0-0.1 [facility] Comment on above: Performed By: #### C MP, TSH, HSTROPN #### [facility] [address] [place] [address] Dr. Christos Fallon Basophils/100 WBC (Bld) 0.5 % Normal 0.2-2.0 [facility] Comment on above: Performed By: #### C MP, TSH, HSTROPN #### [facility] [address] [address] [address] Christos Fallon EO # 0.2 103/ul Normal 0.0-0.7 [facility] Comment on above: Performed By: #### C MP, TSH, HSTROPN #### [facility] [address] [place] [address] Dr. Christos Fallon Eosinophils/100 WBC (Bld) 2.3 % Normal 0.9-7.0 [facility] Comment on above: Performed By: #### C MP, TSH, HSTROPN #### [facility] [address] [place] [address] Dr. Christos Fallon Erythrocyte distribution width (RBC) [Ratio] 13.0 % Normal 11.0-15.0 [facility] Comment on above: Performed By: #### C MP, TSH, HSTROPN #### [facility] [address] [place] [address] Dr. Christos Fallon Hematocrit (Bld) [Volume fraction] 43.0 % Normal 36.0-48.0 [facility] Comment on above: Performed By: #### C MP, TSH, HSTROPN #### [facility] [address] [place] [address] Dr. Christos Fallon Hemoglobin (Bld) [Mass/Vol] 13.9 g/dL Normal 12.0-16.0 [facility] Comment on above: Performed By: #### C MP, TSH, HSTROPN #### [facility] [address] [place] [address] Dr. Christos Fallon IG # 0.03 10e3/ul Normal 0.00-0.03 [facility] Comment on above: Performed By: #### C MP, TSH, HSTROPN #### [facility] [address] [place] [address] Dr. Christos Fallon IG % 0.3 % Normal 0.0-0.5 [facility] Comment on above: Performed By: #### C MP, TSH, HSTROPN #### [facility] [address] [place] [address] Dr. Christos Fallon LYMPH # 2.8 103/ul Normal 1.2-3.8 [facility] Comment on above: Performed By: #### C MP, TSH, HSTROPN #### [facility] [address] [place] [address] Dr. Christos Fallon Lymphocytes/100 WBC (Bld) 29.6 % Normal 20.5-60.0 [facility] Comment on above: Performed By: #### C MP, TSH, HSTROPN #### [facility] [address] [place] [address] Dr. Christos Fallon MANUAL DIFF REQ NO Normal [facility] Comment on above: Performed By: #### C MP, TSH, HSTROPN #### [facility] [address] [place] [address] Dr. Christos Fallon MCH (RBC) [Entitic mass] 34.8 pg Critically high 26.7-34.0 [facility] Comment on above: Performed By: #### C MP, TSH, HSTROPN #### [facility] [address] [place] [address] Dr. Christos Fallon MCHC (RBC) [Mass/Vol] 32.3 g/dL Normal 29.9-35.2 [facility] Comment on above: Performed By: #### C MP, TSH, HSTROPN #### [facility] [address] [place] [address] Dr. Christos Fallon MCV (RBC) [Entitic vol] 107.5 fL Critically high 81.0-99.0 [facility] Comment on above: Performed By: #### C MP, TSH, HSTROPN #### [facility] [address] [place] [address] Dr. Christos Fallon MONO # 0.7 103/ul Normal 0.3-0.8 [facility] Comment on above: Performed By: #### C MP, TSH, HSTROPN #### [facility] [address] [place] [address] Dr. Christos Fallon Monocytes/100 WBC (Bld) 7.7 % Normal 1.7-12.0 [facility] Comment on above: Performed By: #### C MP, TSH, HSTROPN #### [facility] [address] [place] [address] Dr. Christos Fallon NEUT # 5.7 103/ul Normal 1.4-6.5 [facility] Comment on above: Performed By: #### C MP, TSH, HSTROPN #### [facility] [address] [place] [address] Dr. Christos Fallon Neutrophils/100 WBC (Bld) 59.6 % Normal 43.0-75.0 [facility] Comment on above: Performed By: #### C MP, TSH, HSTROPN #### [facility] [address] [address] [address] Christos Fallon Platelet mean volume (Bld) [Entitic vol] 9.9 fL Normal 9.5-13.5 [facility] Comment on above: Performed By: #### C MP, TSH, HSTROPN #### [facility] [address] [address] [address] Christos Fallon PLT 309 103/ul Normal 150-450 [facility] Comment on above: Performed By: #### C MP, TSH, HSTROPN #### [facility] [address] [address] [address] Christos Fallon RBC 4.00 106/ul Critically low 4.20-5.40 [facility] Comment on above: Performed By: #### C MP, TSH, HSTROPN #### [facility] [address] [address] [address] Christos Fallon WBC 9.6 103/ul Normal 4.0-11.0 [facility] Comment on above: Performed By: #### C MP, TSH, HSTROPN #### [facility] [address] [address] [address] Christos Fallon D-DIMERon 09-02-2022 D-DIMER 0.28 mg/L FEU Normal <=0.59 [facility] Comment on above: Performed By: #### C MP, TSH, HSTROPN #### [facility] [address] [address] [address] Christos Fallon D-DIMER COMMENTS SEE BELOW Normal [facility] Comment on above: Result Comment: Incr [...] By: #### C MP, TSH, HSTROPN #### [facility] [address] [place] [address] Dr. Christos Fallon PROF 14(COMP METB)on 023 Albumin [Mass/Vol] 3.8 g/dL Normal 3.4-5.0 [facility] Comment on above: Performed By: #### C MP, TSH, HSTROPN #### [facility] [address] [place] [address] Dr. Christos Fallon Albumin/Globulin [Mass ratio] 1.2 {ratio} Normal [facility] Comment on above: Performed By: #### C MP, TSH, HSTROPN #### [facility] [address] [place] [address] Dr. Christos Fallon ALP [Catalytic activity/Vol] 85 U/L Normal 46-116 [facility] Comment on above: Performed By: #### C MP, TSH, HSTROPN #### [facility] [address] [place] [address] Dr. Christos Fallon ALT [Catalytic activity/Vol] 39 U/L Normal 14-59 [facility] Comment on above: Performed By: #### C MP, TSH, HSTROPN #### [facility] [address] [place] [address] Dr. Christos Fallon Anion gap [Moles/Vol] 16.3 mmol/L Normal [facility] Comment on above: Performed By: #### C MP, TSH, HSTROPN #### [facility] [address] [place] [address] Dr. Christos Fallon AST [Catalytic activity/Vol] 19 U/L Normal 15-37 [facility] Comment on above: Performed By: #### C MP, TSH, HSTROPN #### [facility] [address] [place] [address] Dr. Christos Fallon Bilirubin [Mass/Vol] 0.4 mg/dL Normal 0.2-1.0 [facility] Comment on above: Performed By: #### C MP, TSH, HSTROPN #### [facility] [address] [place] [address] Dr. Christos Fallon Calcium [Mass/Vol] 9.2 mg/dL Normal 8.5-10.1 [facility] Comment on above: Performed By: #### C MP, TSH, HSTROPN #### [facility] [address] [place] [address] Dr. Christos Fallon Chloride [Moles/Vol] 101 mmol/L Normal 98-107 [facility] Comment on above: Performed By: #### C MP, TSH, HSTROPN #### [facility] [address] [place] [address] Dr. Christos Fallon CO2 [Moles/Vol] 24.9 mmol/L Normal 21.0-32.0 [facility] Comment on above: Performed By: #### C MP, TSH, HSTROPN #### [facility] [address] [place] [address] Dr. Christos Fallon Creatinine [Mass/Vol] 0.83 mg/dL Normal 0.55-1.02 [facility] Comment on above: Performed By: #### C MP, TSH, HSTROPN #### [facility] [address] [place] [address] Dr. Christos Fallon EGFR-AF MACEDONIAN >60 Normal >=60 [facility] Comment on above: Performed By: #### C MP, TSH, HSTROPN #### [facility] [address] [place] [address] Dr. Christos Fallon EGFR-NON AF MACEDONIAN >60 Normal >=60 [facility] Comment on above: Performed By: #### C MP, TSH, HSTROPN #### [facility] [address] [place] [address] Dr. Christos Fallon Globulin (S) [Mass/Vol] 3.2 g/dL Normal [facility] Comment on above: Performed By: #### C MP, TSH, HSTROPN #### [facility] [address] [address] [address] Christos Fallon Glucose [Mass/Vol] 142 mg/dL Critically high 74-106 T [facility] Comment on above: Performed By: #### C MP, TSH, HSTROPN #### [facility] [address] [address] [address] Christos Fallon Potassium [Moles/Vol] 3.2 mmol/L Critically low 3.5-5.1 [facility] Comment on above: Performed By: #### C MP, TSH, HSTROPN #### [facility] [address] [place] [address] Dr. Christos Fallon Protein [Mass/Vol] 7.0 g/dL Normal 6.4-8.2 [facility] Comment on above: Performed By: #### C MP, TSH, HSTROPN #### [facility] [address] [place] [address] Dr. Christos Fallon Sodium [Moles/Vol] 139 mmol/L Normal 136-145 The [facility] Comment on above: Performed By: #### C MP, TSH, HSTROPN #### [facility] [address] [address] [address] Christos Fallon Urea nitrogen [Mass/Vol] 10.0 mg/dL Normal 7.0-18.0 [facility] Comment on above: Performed By: #### C MP, TSH, HSTROPN #### [facility] [address] [place] [address] Dr. Christos Fallon Urea nitrogen/Creatinine [Mass ratio] 12.0 mg/mg Normal [facility] Comment on above: Performed By: #### C MP, TSH, HSTROPN #### [facility] [address] [place] [address] Dr. Christos Fallon PROTIMEon 09-02-2022 INR Coag (PPP) [Relative time] {INR} Normal [facility] Comment on above: Performed By: #### C MP, TSH, HSTROPN #### [facility] [address] [place] [address] Dr. Christos Fallon INR GUIDELINES SEE BELOW Normal [facility] Comment on above: Result Comment: GUALBERTO RED INR: 2.0 - 3.0 CONDITIONS NOT LISTED BELOW 2.5 - 3.5 FOR PROSTHETIC HEART VALVE REPLACEMENT 2.5 - 3.5 RECURRENT THROMBOSIS Performed By: #### C MP, TSH, HSTROPN #### [facility] [address] [place] [address] Dr. Christos Fallon PT Coag (PPP) [Time] 9.7 s Normal 9.0-11.6 [facility] Comment on above: Performed By: #### C MP, TSH, HSTROPN #### [facility] [address] [place] [address] Dr. Christos Fallon PTTon 09-02-2022 aPTT Coag (Bld) [Time] 25.9 s Normal 22.3-36.2 [facility] Comment on above: Performed By: #### C MP, TSH, HSTROPN #### [facility] [address] [place] [address] Dr. Christos Fallon TROPONIN, HIGH SENSITIVITYon 09-02-2022 HSTROP <4.0 Normal 4.0-51.3 [facility] Comment on above: Result Comment: CUT- OFF POINTS HAVE BEEN ESTABLISHED BASED ON THE FOURTH UNIVERSAL DEFINITIONS OF MYOCARDIAL INFARCTION. THE UPPER REFERENCE LIMIT (URL) OF TROPONIN, DEFINED THE 99TH PERCENTILE OF cTnI DISTRIBUTION IN A REFERENCE POPULATION, HAS BEEN CONFIRMED THE DECISION THRESHOLD FOR OR DIAGNOSIS. Performed By: #### C MP, TSH, HSTROPN #### [facility] [address] [place] [address] Dr. Christos Fallon TSHon 09-02-2022 TSH 0.813 uIU/mL Normal 0.358-3.740 [facility] Comment on above: Performed By: #### C MP, TSH, HSTROPN #### [facility] [address] [place] [address] Dr. Christos Fallon XR CHEST 1 Von [...] by: LEEANNE MON Date: 2022-09-02 15:09 [facility] ) KAILA VASQUEZ ([id number]) 1980 F Date Time Provider Department 08/24/22 2:00 PM JANELL SY During your visit today, we recorded the following information about you: Pulse Blood pressure Weight Height 88/minute 112/73 112.9 kg 1.626 m Janell Sy MD 08/24/2022 2:17 PM Signed [facility] SE[facility] OF REGIONAL CARDIOLOGY OUTPATIENT VISIT DATE [...] Cardiac work-up includes: Echocardiogram on 05/19/2020 at [facility] showed normal ejection fraction. No valvular [...] ECG COMPLETE 4. Obesity, morbid, BMI 40.0-49.9 ([facility]) E66.01 ECG COMPLETE 5. SVT (supraventricular tachycardia) ([facility]) I47.1 6. Chronic fatigue R53.82 [...] apnea) Palpitatio (more content not included)... Normal [facility] ECG COMPLETEon 08-24-2022 ECG COMPLETE Ventricular Rate : 8 4 BPM Atrial Rate : 84 BPM P-R Interval : 166 ms QRS Duration : 92 ms Q-T Interval : 358 ms QTC Calculation(Bazett) : 423 ms Calculated P [place] : 60 degrees Calculated R [place] : 45 degrees Calculated T [place] : 45 degrees NORMAL SINUS RHYTHM INCREASED R/S RATIO IN V1, CONSIDER EARLY TRANSITION OR POSTERIOR INFARCT ABNORMAL ECG Confirmed by MEERA BOYD M.D. ([id number]) on 08/28/2022 3:03:10 PM NAME : KAILA VASQUEZ PID : [id number] : 1980 Gender : Female Race : ORD : [id number] Procedure Date : Aug 24 2022 13:56:02 [...] JANELL SY Acquired by : Jose browning [facility] CNTHERAPYon 08-12-2022 CNTHERAPY OT/PT/Speech Visit (PTAMCF) CHRISTINAKAILA SHELLEY Emily ([id number]) 1980 F Date Time Provider Department 08/12/22 2:45 PM SEJALSE [facility] Date Time Provider Department Center 08/12/2022 2:45 PM [id number], KARA [facility] Reason for Visit: Physical Therapy [...] % (flush) 10 mL (BD POSIFLUSH) Normal [facility] CNTHERAPYon 08-05-2022 CNTHERAPY OT/PT/Speech Visit (PTAMCF) KAILA VASQUEZ ([id number]) 1980 F Date Time Provider Department 08/05/22 9:15 AM [facility] Date Time Provider Department Center 08/05/2022 9:15 AM [id number], KARA [facility] [place] [facility] Reason for Visit: PT Eval [747] [...] % (flush) 10 mL (BD POSIFLUSH) Normal [facility] Covid-19 PCR (CVDTB)on 07-09 SARS-CoV-2 (COVID-19) RNA LEROY+probe Ql (Unsp spec) Not detected Normal NOT DETECTED [facility] Comment on above: Result Comment: When diagnostic [...] for this test is supported by the [employer] Stock Checker of Health and Human Service's declaration that [...] used). Performed By: #### C VDAGA #### [facility] [address] [place] [address] Dr. Christos Fallon 25(OH)D3 [facility] 2021 25-hydroxyvitamin D3 [Mass/Vol] 15.8 ng/mL Low 31.0-80.0 [facility] Comment on above: Order Comment: Speci men Type: BLOOD SPECIMENOrdering Facility: [facility] Address: [address] [place] [address] Result Comment: Clas sification of 25 [place] Vitamin D status: Deficiency/Insufficiency: < or = 30 ng/ml. Sufficiency/Optimal Levels: 31-80 ng/mL Toxicity: > 100 ng/mL. Test performed by chemiluminescent immunoassay. Performed By: #### 1 989-3 ####[facility] LABCLIA [id number] [place] [address] [place] ESEQUIEL BY IFA WITH REFLEXon ESEQUIEL PATTERN Nuclear fine speckled Normal Cl [facility] Comment on above: Order Comment: Speci men Type: BLOOD SPECIMENOrdering Facility: [facility] Address: [address] [place] [address] Performed By: #### 2 9374-6, 27242-5, 30139-3, 16159-9, 62218-6, ANAIFR, 91234-8, 45002-7, 51572-8, 81966-7 ####[facility] LABCLIA [id number] [place] [address] [place] ESEQUIEL TITER 1:160 Normal [facility] Comment on above: Order Comment: Speci men Type: BLOOD SPECIMENOrdering Facility: [facility] Address: [address] [id number] Performed By: #### 2 9374-6, 28974-0, 24879-7, 83883-0, 95757-3, ANAIFR, 91523-5, 36495-8, 37365-0, 81662-2 ####[facility] LABCLIA [id number] [place] [address] [place] Nuclear Ab IF (S) [Titer] Positive Abnormal Negative [facility] Comment on above: Order Comment: Speci men Type: BLOOD SPECIMENOrdering Facility: [facility] Address: [address] [place], [place] [id number] Result Comment: Anti -nuclear antibody test is used as an aid in diagnosis of systemic autoimmune diseases. Where positive and clinically warranted, follow-up using disease-specific testing is recommended. Low positive titers are not uncommon with advanced age, certain chronic infections, and malignancies among others. Test methodology: Indirect fluorescence immunoassay (IFA) using HEp-2 cells. Performed By: #### 2 9374-6, 04547-3, 55967-2, 97000-6, 06643-4, ANAIFR, 06849-4, 93577-3, 10416-4, 58499-2 ####[facility] LABCLIA [id number] [address] [address] [place] Basic metabolic 2000 panelon 07-07-2022 Anion gap [Moles/Vol] 13 mmol/L Normal 9-18 [facility] Comment on above: Order Comment: Speci men Type: BLOOD SPECIMENOrdering Facility: [facility] Address: [address] [id number] Performed By: #### 2 4321-2 ####[facility] LABCLIA [id number] [place] [address] [place] Calcium [Mass/Vol] 9.3 mg/dL Normal 8.5-10.2 [facility] Comment on above: Order Comment: Speci men Type: BLOOD SPECIMENOrdering Facility: [facility] Address: [address] [address] Performed By: #### 2 4321-2 ####[facility] LABCLIA [id number] [place] [address] [place] Chloride [Moles/Vol] 102 mmol/L Normal 97-105 [facility] Comment on above: Order Comment: Speci men Type: BLOOD SPECIMENOrdering Facility: [facility] Address: [address] [address] Performed By: #### 2 4321-2 ####[facility] LABCLIA [id number] [place] [address] [place] CO2 [Moles/Vol] 23 mmol/L Normal 22-30 [facility] Comment on above: Order Comment: Speci men Type: BLOOD SPECIMENOrdering Facility: [facility] Address: [address] [place] [address] Performed By: #### 2 4321-2 ####[facility] LABCLIA [id number] [place] [address] [place] Creatinine [Mass/Vol] 0.72 mg/dL Normal 0.58-0.96 [facility] Comment on above: Order Comment: Speci men Type: BLOOD SPECIMENOrdering Facility: [facility] Address: [address] [place] [address] Performed By: #### 2 4321-2 ####[facility] LABCLIA [id number] [place] [address] [place] ESTIMATED GLOMERULAR FILTRATION RATE 109 mL/min/1.73m??? Normal >=60 [facility] Comment on above: Order Comment: Speci men Type: BLOOD SPECIMENOrdering Facility: [facility] Address: [address] [place] [address] Result Comment: Dina mated Glomerular Filtration Rate [...] actual GFR. Performed By: #### 2 4321-2 ####[facility] [id number] [place] [address] [place] Glucose [Mass/Vol] 98 mg/dL Normal 74-99 [facility] Comment on above: Order Comment: Speci men Type: BLOOD SPECIMENOrdering Facility: [facility] Address: [address] [place] [address] Result Comment: The [place] Diabetes Association (ADA) provides guidance for cutoff [...] Standards of Medical Care in Diabetes 2016, [place] [employer]. Diabetes Care. 2016.39(Suppl 1). Performed By: #### 2 4321-2 ####[facility] LABCLIA [id number] [place] [address] [place] Potassium [Moles/Vol] 4.1 mmol/L Normal 3.7-5.1 [facility] Comment on above: Order Comment: Speci men Type: BLOOD SPECIMENOrdering Facility: [facility] Address: [address] [place], [place] [id number] Performed By: #### 2 4321-2 ####[facility] LABCLIA [id number] [place] [address] [place] Sodium [Moles/Vol] 138 mmol/L Normal 136-144 [facility] Comment on above: Order Comment: Speci men Type: BLOOD SPECIMENOrdering Facility: [facility] Address: [address] [address] Performed By: #### 2 4321-2 ####[facility] LABCLIA [id number] [place] [address] [place] Urea nitrogen [Mass/Vol] 8 mg/dL Normal 7-21 [facility] Comment on above: Order Comment: Speci men Type: BLOOD SPECIMENOrdering Facility: [facility] Address: [address] [address] Performed By: #### 2 4321-2 ####[facility] LABCLIA [id number] [place] [address] [place] Anion gap [Moles/Vol] 13 mmol/L 9 - 18 mmol/L [facility] Calcium [Mass/Vol] 9.3 mg/dL 8.5 - 10. 2 mg/dL [facility] Chloride [Moles/Vol] 102 mmol/L 97 - 10 5 mmol/L [facility] CO2 [Moles/Vol] 23 mmol/L 22 - 30 mmol/L [facility] Creatinine [Mass/Vol] 0.72 mg/dL 0.58 - 0.96 mg/dL [facility] Estimated Glomerular Filtration Rate 109 mL/min/1.73m >=60 mL/min/1.73m [facility] Glucose [Mass/Vol] 98 mg/dL 74 - 99 mg/dL [facility] Potassium [Moles/Vol] 4.1 mmol/L 3.7 - 5.1 mmol/L [facility] Sodium [Moles/Vol] 138 mmol/L 136 - 144 mmol/L [facility] Urea nitrogen [Mass/Vol] 8 mg/dL 7 - 21 mg/dL [facility] CBC W Auto Differential pane l (Bld)on 07-07-2022 Basophils (Bld) [#/Vol] 0.04 10*3/uL Normal <0.11 [facility] Comment on above: Order Comment: Speci men Type: BLOOD SPECIMENOrdering Facility: [facility] Address: [address] [address] Performed By: #### 5 7021-8 ####[facility] LABCLIA [id number] [place] [address] [place] Basophils/100 WBC (Bld) 0.5 % Normal [facility] Comment on above: Order Comment: Speci men Type: BLOOD SPECIMENOrdering Facility: [facility] Address: [address] [place] [address] Performed By: #### 5 7021-8 ####[facility] LABCLIA [id number] [place] [address] [place] Differential cell count method Nom (Bld) Auto Normal [facility] Comment on above: Order Comment: Speci men Type: BLOOD SPECIMENOrdering Facility: [facility] Address: [address] [place] [address] Performed By: #### 5 7021-8 ####[facility] LABCLIA [id number] [place] [address] [place] Eosinophils (Bld) [#/Vol] 0.29 10*3/uL Normal <0.46 [facility] Comment on above: Order Comment: Speci men Type: BLOOD SPECIMENOrdering Facility: [facility] Address: [address] [place] [address] Performed By: #### 5 7021-8 ####[facility] LABCLIA [id number] [place] [address] [place] Eosinophils/100 WBC (Bld) 3.9 % Normal [facility] Comment on above: Order Comment: Speci men Type: BLOOD SPECIMENOrdering Facility: [facility] Address: [address] [place] [address] Performed By: #### 5 7021-8 ####[facility] LABCLIA [id number] [place] [address] [place] Erythrocyte distribution width (RBC) [Ratio] 12.1 % Normal 11.5-15.0 [facility] Comment on above: Order Comment: Speci men Type: BLOOD SPECIMENOrdering Facility: [facility] Address: [address] [place] [address] Performed By: #### 5 7021-8 ####[facility] LABCLIA [id number] [place] [address] [place] Hematocrit (Bld) [Volume fraction] 43.5 % Normal 36.0-46.0 [facility] Comment on above: Order Comment: Speci men Type: BLOOD SPECIMENOrdering Facility: [facility] Address: [address] [place] [address] Performed By: #### 5 7021-8 ####[facility] LABIA [id number] [place] [address] [place] Hemoglobin (Bld) [Mass/Vol] 14.9 g/dL Normal 11.5-15.5 [facility] Comment on above: Order Comment: Speci men Type: BLOOD SPECIMENOrdering Facility: [facility] Address: [address] [place] [address] Performed By: #### 5 7021-8 ####[facility] LABIA [id number] [place] [address] [place] Immature granulocytes (Bld) [#/Vol] 0.03 10*3/uL Normal <0.10 [facility] Comment on above: Order Comment: Speci men Type: BLOOD SPECIMENOrdering Facility: [facility] Address: [address] [place] [address] Performed By: #### 5 7021-8 ####[facility] LABCLIA [id number] [place] [address] [place] Immature granulocytes/100 WBC (Bld) 0.4 % Normal [facility] Comment on above: Order Comment: Speci men Type: BLOOD SPECIMENOrdering Facility: [facility] Address: [address] [place] [address] Performed By: #### 5 7021-8 ####[facility] LABCLIA [id number] [place] [address] [place] Lymphocytes (Bld) [#/Vol] 1.71 10*3/uL Normal 1.00-4.00 [facility] Comment on above: Order Comment: Speci men Type: BLOOD SPECIMENOrdering Facility: [facility] Address: [address] [place] [address] Performed By: #### 5 7021-8 ####[facility] LABCLIA [id number] [place] [address] [place] Lymphocytes/100 WBC (Bld) 23.2 % Normal [facility] Comment on above: Order Comment: Speci men Type: BLOOD SPECIMENOrdering Facility: [facility] Address: [address] [place] [address] Performed By: #### 5 7021-8 ####[facility] LABCLIA [id number] [place] [address] [place] MCH (RBC) [Entitic mass] 34.1 pg High 26.0-34.0 [facility] Comment on above: Order Comment: Speci men Type: BLOOD SPECIMENOrdering Facility: [facility] Address: [address] [place] [address] Performed By: #### 5 7021-8 ####[facility] LABCLIA [id number] [place] [address] [place] MCHC (RBC) [Mass/Vol] 34.3 g/dL Normal 30.5-36.0 [facility] Comment on above: Order Comment: Speci men Type: BLOOD SPECIMENOrdering Facility: [facility] Address: [address] [address] Performed By: #### 5 7021-8 ####[facility] LABCLIA [id number] [place] [address] [place] MCV (RBC) [Entitic vol] 99.5 fL Normal 80.0-100.0 [facility] Comment on above: Order Comment: Speci men Type: BLOOD SPECIMENOrdering Facility: [facility] Address: [address] [address] Performed By: #### 5 7021-8 ####[facility] LABIA [id number] [place] [address] [place] Monocytes (Bld) [#/Vol] 0.57 10*3/uL Normal <0.87 [facility] Comment on above: Order Comment: Speci men Type: BLOOD SPECIMENOrdering Facility: [facility] Address: [address] [address] Performed By: #### 5 7021-8 ####[facility] LABIA [id number] [place] [address] [place] Monocytes/100 WBC (Bld) 7.7 % Normal [facility] Comment on above: Order Comment: Speci men Type: BLOOD SPECIMENOrdering Facility: [facility] Address: [address] Performed By: #### 5 7021-8 ####[facility] LABIA [id number] [place] [address] [place] Neutrophils (Bld) [#/Vol] 4.73 10*3/uL Normal 1.45-7.50 [facility] Comment on above: Order Comment: Speci men Type: BLOOD SPECIMENOrdering Facility: [facility] Address: [address] [place], [place] [address] Performed By: #### 5 7021-8 ####[facility] LABCLIA [id number] [place] [address] [place] Neutrophils/100 WBC (Bld) 64.3 % Normal [facility] Comment on above: Order Comment: Speci men Type: BLOOD SPECIMENOrdering Facility: [facility] Address: [address] [place] [address] Performed By: #### 5 7021-8 ####[facility] LABIA [id number] [place] [address] [place] Nucleated RBC (Bld) [#/Vol] 10*3/uL Normal <0.01 [facility] Comment on above: Order Comment: Speci men Type: BLOOD SPECIMENOrdering Facility: [facility] Address: [address] [place] [address] Performed By: #### 5 7021-8 ####[facility] LABIA [id number] [place] [address] [place] Nucleated RBC/100 WBC (Bld) [Ratio] 0.0 /100 WBC Normal [facility] Comment on above: Order Comment: Speci men Type: BLOOD SPECIMENOrdering Facility: [facility] Address: [address] [place] [address] Performed By: #### 5 7021-8 ####[facility] LABIA [id number] [place] [address] [place] Platelet mean volume (Bld) [Entitic vol] 9.6 fL Normal 9.0-12.7 [facility] Comment on above: Order Comment: Speci men Type: BLOOD SPECIMENOrdering Facility: [facility] Address: [address] [place] [address] Performed By: #### 5 7021-8 ####[facility] LABIA [id number] [place] [address] [place] Platelets (Bld) [#/Vol] 277 10*3/uL Normal 150-400 [facility] Comment on above: Order Comment: Speci men Type: BLOOD SPECIMENOrdering Facility: [facility] Address: [address] [place] [address] Performed By: #### 5 7021-8 ####[facility] LABCLIA [id number] [place] [address] [place] [facility] [place] RBC (Bld) [#/Vol] 4.37 10*6/uL Normal 3.90-5.20 [facility] Comment on above: Order Comment: Speci men Type: BLOOD SPECIMENOrdering Facility: [facility] Address: [address] [place] [address] Performed By: #### 5 7021-8 ####[facility] LABCLIA [id number] [place] [address] [place] WBC (Bld) [#/Vol] 7.37 10*3/uL Normal 3.70-11.00 [facility] Comment on above: Order Comment: Speci men Type: BLOOD SPECIMENOrdering Facility: [facility] Address: [address] [place] [address] Performed By: #### 5 7021-8 ####[facility] LABCLIA [id number] [place] [address] [place] Basophils (Bld) [#/Vol] 0.04 10*3/uL <0.11 k/uL [facility] Basophils/100 WBC (Bld) 0.5 % [facility] Differential cell count method Nom (Bld) Auto [facility] Eosinophils (Bld) [#/Vol] 0.29 10*3/uL <0.46 k/uL [facility] Eosinophils/100 WBC (Bld) 3.9 % [facility] Erythrocyte distribution width (RBC) [Ratio] 12.1 % 11.5 - 15.0 % [facility] Hematocrit (Bld) [Volume fraction] 43.5 % 36.0 - 46.0 % [facility] Hemoglobin (Bld) [Mass/Vol] 14.9 g/dL 11.5 - 15.5 g/dL [facility] Immature granulocytes (Bld) [#/Vol] 0.03 10*3/uL <0.10 k/uL [facility] Immature granulocytes/100 WBC (Bld) 0.4 % [facility] Lymphocytes (Bld) [#/Vol] 1.71 10*3/uL 1.00 - 4.00 k/uL [facility] Lymphocytes/100 WBC (Bld) 23.2 % [facility] MCH (RBC) [Entitic mass] 34.1 pg High 26.0 - 34.0 pg [facility] MCHC (RBC) [Mass/Vol] 34.3 g/dL 30.5 - 36.0 g/dL [facility] MCV (RBC) [Entitic vol] 99.5 fL 80.0 - 100.0 fL [facility] Monocytes (Bld) [#/Vol] 0.57 10*3/uL <0.87 k/uL [facility] Monocytes/100 WBC (Bld) 7.7 % [facility] Neutrophils (Bld) [#/Vol] 4.73 10*3/uL 1.45 - 7.50 k/uL [facility] Neutrophils/100 WBC (Bld) 64.3 % [facility] Nucleated RBC (Bld) [#/Vol] <0.01 k/uL [facility] Nucleated RBC/100 WBC (Bld) [Ratio] 0.0 /100 WBC [facility] Platelet mean volume (Bld) [Entitic vol] 9.6 fL 9.0 - 12.7 fL [facility] Platelets (Bld) [#/Vol] 277 10*3/uL 150 - 400 k/uL [facility] RBC (Bld) [#/Vol] 4.37 10*6/uL 3.90 - 5.2 0 m/uL [facility] WBC (Bld) [#/Vol] 7.37 10*3/uL 3.70 - 11. 00 k/uL [facility] CNOVon 07-07-2022 CNOV Office Visit ([facility] ) KAILA VASQUEZ ([id number]) 1980 F Date Time Provider Department 07/07/22 8:00 AM GLENROY SYED During your visit today, we recorded the following information about you: Pulse Blood pressure Weight Height 82/minute 134/88 112 kg 1.626 m Glenroy Syed APRN.[employer]CELAIN ENAMEL [employer]AYER 07/07/2022 12:28 PM Signed [facility] New Patient Evaluation CHIEF COMPLAINT: [...] over a month. She has seen an inspector firearms and was told she was having occular migraine by her loan associate. A couple times a month she [...] tobacco: Never (more content not included)... Normal [facility] CNPNon 07-07-2022 CNPN Telephone ([facility]) KAILA VASQUEZ ([id number]) 1980 F Date Time Provider Department 07/07/22 GLENROY SYED NEVÍCTORFV During your visit today, we recorded the following information about you: Cinthya Salgado 07/07/2022 8:52 AM Signed Received medical records from [facility]. Uploaded to chart and forwarded for review. Kajal Gillespie RN 07/07/2022 9:14 AM Signed Noted. Provider notified. Allergies As of Date: 07/07/2022 (Not on File) Date Reviewed: 07/07/2022 Reviewed by: Elaine Bolaños Ma - Fully Assessed Reason for Visit: Received Outside Medical Records [[id number]] Prescriptions as of 07/19/2022 - metoprolol tartrate, short acting, (LOPRESSOR) 50 mg tablet metoprolol tartrate 50 mg tablet Facility-Administered Medications as of 07/19/2022 - perflutren lipid microspheres 1.3 mL in NaCl (PF) 0.9% 10 mL injection (DEFINITY) - sodium chloride 0.9 % (flush) 10 mL (BD POSIFLUSH) Problem List As Of Date: 07/07/2022 (None) Encounter Status:Closed by CINTHYA SALGADO on 07/19/22 Normal [facility] Centromere Ab IF Ql (S)on Centromere Ab Qn (S) <0.2 Normal <1.0 [facility] Comment on above: Order Comment: Speci men Type: BLOOD SPECIMENOrdering Facility: [facility] Address: [address] [place] [address] Result Comment: Anti -centromere antibody is used as in aid in diagnosis of systemic sclerosis. Clinical correlation is required. Test Methodology: Multiplex flow immunoassay. Performed By: #### 2 9374-6, 52375-4, 81018-0, 60624-1, 95754-9, ANAIFR, 65412-5, 03250-4, 52689-7, 92543-4 ####[facility] LABCLIA [id number] [place] [address] [place] CENTROMERE AB QUAL Negative Normal Negative [facility] Comment on above: Order Comment: Speci men Type: BLOOD SPECIMENOrdering Facility: [facility] Address: [address] [place] [address] Performed By: #### 2 9374-6, 30641-4, 19814-0, 75583-4, 90459-2, ANAIFR, 86659-5, 45311-0, 46791-8, 43149-9 ####[facility] LABCLIA [id number] [place] [address] [place] Chromatin Ab Qnon 07-07-2022 CHROMATIN AB QUAL Negative Normal Negative [facility] Comment on above: Order Comment: Speci men Type: BLOOD SPECIMENOrdering Facility: [facility] Address: [address] [place] [address] Performed By: #### 2 9374-6, 63008-4, 82966-7, 37717-3, 23470-7, ANAIFR, 76536-6, 13483-2, 89360-3, 42527-6 ####[facility] LABCLIA [id number] [place] [address] [place] Chromatin Ab SerPl-aCncon Chromatin Ab Qn <0.2 Normal <1.0 [facility] Comment on above: Order Comment: Speci men Type: BLOOD SPECIMENOrdering Facility: [facility] Address: [address] [place] [address] Result Comment: Test Methodology: Multiplex flow immunoassay. Performed By: #### 2 9374-6, 05571-5, 21769-2, 33984-1, 99185-2, ANAIFR, 43889-8, 14204-1, 12551-1, 63262-1 ####[facility] LABCLIA [id number] [place] [address] [place] KAMRAN Jo1 Ab Ser-aCncon 2021 Radha-1 extractable nuclear Ab Qn (S) <0.2 Normal <1.0 [facility] Comment on above: Order Comment: Speci men Type: BLOOD SPECIMENOrdering Facility: [facility] Address: [address] [place] [address] Performed By: #### 2 9374-6, 13572-4, 10248-3, 32875-1, 66987-9, ANAIFR, 09679-7, 53212-5, 49600-4, 58232-6 ####[facility] LABIA [id number] [place] [address] [place] KAMRAN SLEEVE WHEEL MAKER Ab Ser-aCncon 2021 Ribonucleoprotein extractable nuclear Ab Qn (S) <0.2 Normal <1.0 [facility] Comment on above: Order Comment: Speci men Type: BLOOD SPECIMENOrdering Facility: [facility] Address: [address] [place] [address] Performed By: #### 2 9374-6, 71806-3, 81846-7, 74918-3, 81489-5, ANAIFR, 47466-4, 57264-4, 45126-8, 91785-9 ####[facility] LABCLIA [id number] [place] [address] [place] KAMRAN SM IgG Ser-aCncon 2021 Osborne extractable nuclear IgG Qn (S) <0.2 Normal <1.0 [facility] Comment on above: Order Comment: Speci men Type: BLOOD SPECIMENOrdering Facility: [facility] Address: [address] [place] [address] Performed By: #### 2 9374-6, 71277-8, 78291-9, 25374-0, 12839-8, ANAIFR, 13195-5, 15231-0, 70436-4, 79531-7 ####[facility] [id number] [place] [address] [place] KAMRAN SS[facility] 07[facility]07 Sjogrens syndrome-A extractable nuclear Ab Qn (S) 0.3 AI Normal <1.0 [facility] Comment on above: Order Comment: Speci men Type: BLOOD SPECIMENOrdering Facility: [facility] Address: [address] [place] [address] Result Comment: Test Methodology: Multiplex flow immunoassay. Performed By: #### 2 9374-6, 64268-9, 63345-6, 26165-3, 70404-7, ANAIFR, 38285-1, 28004-6, 81304-2, 44930-8 ####[facility] LABIA [id number] [place] [address] [place] KAMRAN SS-B Ab Ser-[facility]Cng[facility] 07-07 Sjogrens syndrome-B extractable nuclear Ab Qn (S) <0.2 Normal <1.0 [facility] Comment on above: Order Comment: Speci men Type: BLOOD SPECIMENOrdering Facility: [facility] Address: [address] [place] [address] Result Comment: Anti -SSB (anti-La) antibody is used as an aid in diagnosis of a variety of systemic autoimmune diseases, especially for Sjogren's syndrome and systemic lupus erythematosus. Clinical correlation is required. Test Methodology: Multiplex flow immunoassay. Performed By: #### 2 9374-6, 33274-2, 97899-0, 30059-3, 50506-6, ANAIFR, 33439-9, 40415-1, 07714-1, 71616-1 ####[facility] [id number] [place] [address] [place] Radha-1 extractable nuclear Ab Qn (S)on 07-07-2022 RADHA 1 ANTIBODY QUAL Negative Normal Negative [facility] Comment on above: Order Comment: Speci men Type: BLOOD SPECIMENOrdering Facility: [facility] Address: [address] [place] [address] Result Comment: Anti -RADHA-1 antibody is used as an aid in diagnosis of polymyositis and dermatomyositis especially with pulmonary involvement. A negative result cannot rule out polymyositis or dermatomyositis. Clinical correlation is required. Test Methodology: Multiplex flow immunoassay. Performed By: #### 2 9374-6, 17187-2, 90035-4, 86956-9, 31184-3, ANAIFR, 57222-0, 44363-4, 47428-7, 22302-7 ####[facility] [id number] [place] [address] [place] Ribonucleoprotein extractabl e nuclear Ab Qn (S)on 07-07-2022 ANTI-SLEEVE WHEEL MAKER QUAL Negative Normal Negative [facility] Comment on above: Order Comment: Davidi betty Type: BLOOD SPECIMENOrdering Facility: [facility] Address: [address] [place] [address] Performed By: #### 2 9374-6, 00843-1, 58534-5, 24021-7, 13400-4, ANAIFR, 49206-6, 11939-6, 95048-8, 98768-2 ####[facility] [id number] [place] [address] [place] RIBOSOMAL SLEEVE WHEEL MAKER QUAL Negative Normal Negative [facility] Comment on above: Order Comment: Davidi betty Type: BLOOD SPECIMENOrdering Facility: [facility] Address: [address] [place] [address] Result Comment: Anti -Ribosomal RNA (Ribosomal P) antibody is used as an aid in diagnosis of systemic autoimmune diseases especially systemic lupus erythematosus and mixed connective tissue disease. Cross-reactivity with Anti-osborne antibody is not uncommon. Clinical correlation is required. Test Methodology: Multiplex flow immunoassay. Performed By: #### 2 9374-6, 86105-4, 44792-0, 19454-5, 84852-9, ANAIFR, 63398-3, 80754-0, 86568-6, 67489-2 ####[facility] [id number] [place] [id number] [place] SCL-70 extractable nuclear I gG IA Qn (S)on 07-07-2022 SCLERODERMA AB QUAL Negative Normal Negative [facility] Comment on above: Order Comment: Speci men Type: BLOOD SPECIMENOrdering Facility: [facility] Address: [address] [place] [address] Performed By: #### 2 9374-6, 56506-7, 80549-6, 18269-4, 37719-7, ANAIFR, 94046-0, 29193-6, 89008-5, 79954-3 ####[facility] [id number] [address] [place] SCLERODERMA IGG AB <0.2 Normal <1.0 [facility] Comment on above: Order Comment: Speci men Type: BLOOD SPECIMENOrdering Facility: [facility] Address: [address] [place] [address] Result Comment: Scl- 70/Scleroderma antibody test is used as an aid in diagnosis of systemic sclerosis especially the diffuse cutaneous form. A negative result cannot rule out systemic sclerosis. The final interpretation should consider clinical picture and other test results such as anti-centromere antibody. Test Methodology: Multiplex flow immunoassay. Performed By: #### 2 9374-6, 73076-4, 25989-8, 00807-2, 17120-5, ANAIFR, 75247-7, 85089-7, 27277-2, 51203-1 ####[facility] [id number] [place] [address] [place] [facility] [place] Sjogrens syndrome-A extracta ble nuclear Ab Qn (S)on 07-07-2022 SSA ANTIBODY QUAL Negative Normal Negative [facility] Comment on above: Order Comment: Speci men Type: BLOOD SPECIMENOrdering Facility: [facility] Address: [address] [place] [address] Performed By: #### 2 9374-6, 68455-2, 73123-1, 45677-1, 58627-4, ANAIFR, 50380-5, 87799-7, 21332-0, 06319-2 ####[facility]IA [id number] [address] [place] Sjogrens syndrome-B extracta ble nuclear Ab Qn (S)on 07-07-2022 SSB ANTIBODY QUAL Negative Normal Negative [facility] Comment on above: Order Comment: Speci men Type: BLOOD SPECIMENOrdering Facility: [facility] Address: [address] [place] [address] Performed By: #### 2 9374-6, 06249-6, 16341-9, 49526-7, 10770-8, ANAIFR, 19079-5, 10887-5, 50743-5, 75847-5 ####[facility] [id number] [address] [place] Osborne extractable nuclear Ig G Qn (S)on 07-07-2022 SM ANTIBODY QUAL Negative Normal Negative [facility] Comment on above: Order Comment: Speci men Type: BLOOD SPECIMENOrdering Facility: [facility] Address: [address] [place] [address] Result Comment: Anti -Sm (Osborne) antibody is used as an aid in diagnosis of systemic lupus erythematosus and its presence is associated with renal disease. A negative result cannot rule out systemic lupus erythematosus. Clinical correlation is required. Test Methodology: Multiplex flow immunoassay. Performed By: #### 2 9374-6, 32063-2, 43362-8, 94313-1, 43808-6, ANAIFR, 58548-8, 62991-0, 26917-4, 07477-2 ####[facility] [id number] [place] [address] [place] TSH BLDon 07-07-2022 TSH Qn 0.824 m[IU]/L 0.270 - 4.200 mIU/L [facility] TSH SerPl-aCncon 07-07-2022 TSH Qn 0.824 m[IU]/L Normal 0.270-4.200 [facility] Comment on above: Order Comment: Speci men Type: BLOOD SPECIMENOrdering Facility: [facility] Address: [address] [place] [address] Result Comment: If t he patient is , TSH reference range varies by gestational period: First Trimester (weeks 9-12): 0.180-2.990 mIU/L Second Trimester: 0.110-3.980 mIU/L Third Trimester: 0.480-4.710 mIU/L Eilezer Bangura et al. A Practical Approach for the Verifications and Determination of Site- and Trimester-Specific Reference Intervals for Thyroid Function tests in . Thyroid, 2019:29:3:412-420. Rob Forrest, et al. 2017 Guidelines of the [place] Thy[employer] for the Diagnosis and Management of Thyroid Disease during and the . Thyroid, 2017:27:3:315-389. Performed By: #### 3 016-3, 2132-9 ####[facility] LABIA [id number] [place] [address] [place] VITAMIN B12 BLOODon 07-07-20 22 Cobalamin (Vitamin B12) [Mass/Vol] 618 pg/mL 232 - 1,245 pg/mL [facility] Vit B12 SerPl-mCncon 022 Cobalamin (Vitamin B12) [Mass/Vol] 618 pg/mL Normal 232-1245 [facility] Comment on above: Order Comment: Speci men Type: BLOOD SPECIMENOrdering Facility: [facility] Address: [address] [place] [address] Performed By: #### 3 016-3, 2132-9 ####[facility]IA [id number] [place] [address] [place] dsDNA Ab Ser IA-aCncon 07-07 DNA double strand Ab IA Qn (S) <12 Normal <30 [facility] Comment on above: Order Comment: Speci men Type: BLOOD SPECIMENOrdering Facility: [facility] Address: [address] [place] [address] Result Comment: Nega tive for ds DNA Antibodies. <30 IU/mL Negative 30-74 IU/mL Equivocal >74 IU/mL Positive Performed By: #### 2 9374-6, 99314-8, 96660-6, 37428-0, 82536-1, ANAIFR, 65965-1, 56168-5, 90669-0, 92921-1 ####[facility] LABCLIA [id number] [address] [place] HLA B 27on 04-26-2022 HLA-B27 Negative Normal [facility] Comment on above: Result Comment: HLA- B*27 Negative B27 allele interpretation for all loci based on IMGT/HLA database version 3.44 This test was developed and its performance characteristics determined by [facility]. It has not been cleared or approved by the Food and Drug Administration. [facility] CLIA ID Number [id number] . This test was performed using PCR (Polymerase Chain Reaction)/SSOP (Sequence Specific Oligonucleotide Probes) technique. SBT (Sequence Based Typing) and/or SSP (Sequence Specific Primers) may be used as supplemental methods when necessary. Please contact [facility] Customer Service at if you have any questions. . Director of [facility] Laboratory Dr Abdiaziz Shook, PhD Performed By: #### C VDAGA #### [facility] [address] [place] [address] Dr. Christos Fallon 25-HYDROXY VIT D (D2+D3 [facility] ) LC/MS-MSon 04-23-2022 25-Hydroxy, Vitamin D 26 ng/mL Critically low [facility] Comment on above: Result Comment: Refe rence Range: All Ages: Target levels 30 - 100 Performed By: #### C MP, TSH, HSTROPN #### [facility] [address] [place] [address] Dr. Christos Fallon 25-Hydroxy, Vitamin D-2 <1.0 Normal [facility] Comment on above: Result Comment: This test was developed and its performance characteristics determined by [facility]. It has not been cleared or approved by the Food and Drug Administration. Performed By: #### C MP, TSH, HSTROPN #### [facility] [address] [place] [address] Dr. Christos Fallon 25-Hydroxy, Vitamin D-3 26 ng/mL Normal [facility] Comment on above: Result Comment: This test was developed and its performance characteristics determined by [facility]. It has not been cleared or approved by the Food and Drug Administration. Performed By: #### C MP, TSH, HSTROPN #### [facility] [address] [place] [address] Dr. Christos Fallon REVERSE T3on 04-20-2022 Reverse T3, Serum 11.2 ng/dL Normal 9.2-24.1 [facility] Comment on above: Result Comment: This test was developed and its performance characteristics determined by [facility]. It has not been cleared or approved by the Food and Drug Administration. Performed By: #### C VDAGA #### [facility] [address] [place] [address] Dr. Christos Fallon THYROID ANTIBODIESon 022 Thyroglobulin Antibody <1.0 Normal 0.0-0.9 [facility] Comment on above: Result Comment: Thyr oglobulin Antibody measured by [employer] Methodology Performed By: #### C VDAGA #### [facility] [address] [place] [address] Dr. Christos Fallon Thyroid Peroxidase (TPO) Ab 11 IU/mL Normal 0-34 [facility] Comment on above: Performed By: #### C VDAGA #### [facility] [address] [place] [address] Dr. Christos Fallon ANTISTREPTOLYSIN O AB (ASO)o n 04-16-2022 Antistreptolysin O Ab 21.8 IU/mL Normal 0.0-200.0 [facility] Comment on above: Performed By: #### C MP, TSH, HSTROPN #### [facility] [address] [place] [address] Dr. Christos Fallon T3, TOTAL (TRIIODOTHYRONINE) on 04-16-2022 T3, TOTAL 115 ng/dL Normal 71-180 [facility] Comment on above: Performed By: #### C MP, TSH, HSTROPN #### [facility] [address] [place] [address] Dr. Christos Fallon FREE T3on 04-14-2022 FREE T3 2.46 pg/mlL Normal 2.18-3.98 [facility] Comment on above: Performed By: #### C MP, TSH, HSTROPN #### [facility] [address] [place] [address] Dr. Christos Fallon FREE T4on 04-14-2022 Free T4 [Mass/Vol] 0.88 ng/dL Normal 0.76-1.46 [facility] Comment on above: Performed By: #### C VDAGA #### [facility] [address] [place] [address] Dr. Christos Fallon TSHon 04-14-2022 TSH 1.027 uIU/mL Normal 0.358-3.740 [facility] Comment on above: Performed By: #### C MP, TSH, HSTROPN #### [facility] [address] [place] [address] Dr. Christos Fallon CBC AUTO DIFFon 03-22-2022 BASO # 0.1 103/ul Normal 0.0-0.1 [facility] Comment on above: Performed By: #### C MP, TSH, HSTROPN #### [facility] [address] [place] [address] Dr. Christos Fallon Basophils/100 WBC (Bld) 0.7 % Normal 0.2-2.0 [facility] Comment on above: Performed By: #### C MP, TSH, HSTROPN #### [facility] [address] [place] [address] Dr. Christos Fallon EO # 0.3 103/ul Normal 0.0-0.7 [facility] Comment on above: Performed By: #### C MP, TSH, HSTROPN #### [facility] [address] [place] [address] Dr. Christos Fallon Eosinophils/100 WBC (Bld) 3.4 % Normal 0.9-7.0 [facility] Comment on above: Performed By: #### C MP, TSH, HSTROPN #### [facility] [address] [place] [address] Dr. Christos Fallon Erythrocyte distribution width (RBC) [Ratio] 12.5 % Normal 11.0-15.0 [facility] Comment on above: Performed By: #### C MP, TSH, HSTROPN #### [facility] [address] [place] [address] Dr. Christos Fallon Hematocrit (Bld) [Volume fraction] 41.3 % Normal 36.0-48.0 [facility] Comment on above: Performed By: #### C MP, TSH, HSTROPN #### [facility] [address] [place] [address] Dr. Christos Fallon Hemoglobin (Bld) [Mass/Vol] 14.2 g/dL Normal 12.0-16.0 [facility] Comment on above: Performed By: #### C MP, TSH, HSTROPN #### [facility] [address] [place] [address] Dr. Christos Fallon IG # 0.03 10e3/ul Normal 0.00-0.03 [facility] Comment on above: Performed By: #### C MP, TSH, HSTROPN #### [facility] [address] [place] [address] Dr. Christos Fallon IG % 0.4 % Normal 0.0-0.5 [facility] Comment on above: Performed By: #### C MP, TSH, HSTROPN #### [facility] [address] [place] [address] Dr. Christos Fallon LYMPH # 2.3 103/ul Normal 1.2-3.8 [facility] Comment on above: Performed By: #### C MP, TSH, HSTROPN #### [facility] [address] [place] [address] Dr. Christos Fallon Lymphocytes/100 WBC (Bld) 31.3 % Normal 20.5-60.0 [facility] Comment on above: Performed By: #### C MP, TSH, HSTROPN #### [facility] [address] [place] [address] Dr. Christos Fallon MANUAL DIFF REQ NO Normal [facility] Comment on above: Performed By: #### C MP, TSH, HSTROPN #### [facility] [address] [place] [address] Dr. Christos Fallon MCH (RBC) [Entitic mass] 34.8 pg Critically high 26.7-34.0 [facility] Comment on above: Performed By: #### C MP, TSH, HSTROPN #### [facility] [address] [place] [address] Dr. Christos Fallon MCHC (RBC) [Mass/Vol] 34.4 g/dL Normal 29.9-35.2 [facility] Comment on above: Performed By: #### C MP, TSH, HSTROPN #### [facility] [address] [place] [address] Dr. Christos Fallon MCV (RBC) [Entitic vol] 101.2 fL Critically high 81.0-99.0 [facility] Comment on above: Performed By: #### C MP, TSH, HSTROPN #### [facility] [address] [place] [address] Dr. Christos Fallon MONO # 0.9 103/ul Critically high 0.3-0.8 [facility] Comment on above: Performed By: #### C MP, TSH, HSTROPN #### [facility] [address] [place] [address] Dr. Christos Fallon Monocytes/100 WBC (Bld) 12.0 % Normal 1.7-12.0 [facility] Comment on above: Performed By: #### C MP, TSH, HSTROPN #### [facility] [address] [place] [address] [address] Christos Fallon NEUT # 3.9 103/ul Normal 1.4-6.5 [facility] Comment on above: Performed By: #### C MP, TSH, HSTROPN #### [facility] [address] [place] [address] Dr. Christos Fallon Neutrophils/100 WBC (Bld) 52.2 % Normal 43.0-75.0 [facility] Comment on above: Performed By: #### C MP, TSH, HSTROPN #### [facility] [address] [place] [address] Dr. Christos Fallon Platelet mean volume (Bld) [Entitic vol] 9.7 fL Normal 9.5-13.5 [facility] Comment on above: Performed By: #### C MP, TSH, HSTROPN #### [facility] [address] [address] [address] Christos Fallon PLT 296 103/ul Normal 150-450 [facility] Comment on above: Performed By: #### C MP, TSH, HSTROPN #### [facility] [address] [place] [address] Dr. Christos Fallon RBC 4.08 106/ul Critically low 4.20-5.40 [facility] Comment on above: Performed By: #### C MP, TSH, HSTROPN #### [facility] [address] [place] [address] Dr. Christos Fallon WBC 7.4 103/ul Normal 4.0-11.0 [facility] Comment on above: Performed By: #### C MP, TSH, HSTROPN #### [facility] [address] [place] [address] HEAD WO CONon [...] PAL WETZEL Date: 2022-03-22 17:41 Normal [facility] ER URINE PROFILEon 2 Bilirubin Ql (U) Negative Normal NEGATIVE [facility] Comment on above: Performed By: #### C VDAGA #### [facility] [address] [place] [address] Dr. Christos Fallon Clarity (U) CLOUDY Abnormal CLEAR [facility] Comment on above: Performed By: #### C VDAGA #### [facility] [address] [place] [address] Dr. Christos Fallon Color (U) LT. YELLOW Normal YELLOW [facility] Comment on above: Performed By: #### C VDAGA #### [facility] [address] [place] [address] Dr. Christos Fallon ERUAHD A micrscopic examination will be performed if indicated. Normal [facility] Comment on above: Performed By: #### C VDAGA #### [facility] [address] [place] [address] Dr. Christos Fallon Glucose Ql (U) Negative Normal NEGATIVE [facility] Comment on above: Performed By: #### C VDAGA #### [facility] [address] [address] [address] Christos Fallon Hemoglobin Ql (U) Negative Normal NEGATIVE [facility] Comment on above: Performed By: #### C VDAGA #### [facility] [address] [address] [address] Christos Fallon Ketones Ql (U) Negative Normal NEGATIVE [facility] Comment on above: Performed By: #### C VDAGA #### [facility] [address] [place] [address] Dr. Christos Fallon LEUKOCYTES Negative Normal NEGATIVE [facility] Comment on above: Performed By: #### C VDAGA #### [facility] [address] [place] [address] Dr. Christos Fallon Nitrite Ql (U) Negative Normal NEGATIVE [facility] Comment on above: Performed By: #### C VDAGA #### [facility] [address] [place] [address] Dr. Christos Fallon pH (U) 6.0 [pH] Normal 5-9 [facility] Comment on above: Performed By: #### C VDAGA #### [facility] [address] [place] [address] Dr. Christos Fallon SPEC GRAVITY 1.010 Normal 1.005-<=1.02 5 [facility] Comment on above: Performed By: #### C VDAGA #### [facility] [address] [place] [address] Dr. Christos Fallon UA PROTEIN Negative Normal NEGATIVE/ TRACE [facility] Comment on above: Performed By: #### C VDAGA #### [facility] [address] [place] [address] Dr. Christos Fallon UR MICRO IND NOT INDICATED Normal [facility] Comment on above: Performed By: #### C VDAGA #### [facility] [address] [place] [address] Dr. Christos Fallon Urobilinogen Qn (U) 0.2 {Peyman'U}/dL Normal 0.2 - 1. 0 [facility] Comment on above: Performed By: #### C VDAGA #### [facility] [address] [place] [address] Dr. Christos Fallon PROF 14(COMP METB)on 022 Albumin [Mass/Vol] 3.6 g/dL Normal 3.4-5.0 [facility] Comment on above: Performed By: #### C MP, HSTROPN, TSH #### [facility] [address] [place] [address] Dr. Christos Fallon Albumin/Globulin [Mass ratio] 0.9 {ratio} Normal [facility] Comment on above: Performed By: #### C MP, HSTROPN, TSH #### [facility] [address] [place] [address] Dr. Christos Fallon ALP [Catalytic activity/Vol] 83 U/L Normal 46-116 [facility] Comment on above: Performed By: #### C MP, HSTROPN, TSH #### [facility] [address] [place] [address] Dr. Christos Fallon ALT [Catalytic activity/Vol] 32 U/L Normal 14-59 [facility] Comment on above: Performed By: #### C MP, HSTROPN, TSH #### [facility] [address] [place] [address] Dr. Christos Fallon Anion gap [Moles/Vol] 15.4 mmol/L Normal [facility] Comment on above: Performed By: #### C MP, HSTROPN, TSH #### [facility] [address] [place] [address] Dr. Christos Fallon AST [Catalytic activity/Vol] 15 U/L Normal 15-37 [facility] Comment on above: Performed By: #### C MP, HSTROPN, TSH #### [facility] [address] [place] [address] Dr. Christos Fallon Bilirubin [Mass/Vol] 0.3 mg/dL Normal 0.2-1.0 [facility] Comment on above: Performed By: #### C MP, HSTROPN, TSH #### [facility] [address] [place] [address] Dr. Christos Fallon Calcium [Mass/Vol] 8.9 mg/dL Normal 8.5-10.1 [facility] Comment on above: Performed By: #### C RAY HSTROPN, TSH #### [facility] [address] [address] [address] Christos Fallon Chloride [Moles/Vol] 102 mmol/L Normal 98-107 [facility] Comment on above: Performed By: #### C RAY HSTROPN, TSH #### [facility] [address] [address] [address] Christos Fallon CO2 [Moles/Vol] 22.7 mmol/L Normal 21.0-32.0 The [facility] Comment on above: Performed By: #### C RAY HSTROPN, TSH #### [facility] [address] [address] [address] Christos Fallon Creatinine [Mass/Vol] 0.97 mg/dL Normal 0.55-1.02 [facility] Comment on above: Performed By: #### C RAY HSTROPN, TSH #### [facility] [address] [address] [address] Christos Fallon EGFR-AF MACEDONIAN >60 Normal >=60 The [facility] Comment on above: Performed By: #### C RAY HSTROPN, TSH #### [facility] [address] [address] [address] Christos Fallon EGFR-NON AF MACEDONIAN >60 Normal >=60 [facility] Comment on above: Performed By: #### C MP, HSTROPN, TSH #### [facility] [address] [address] [address] Christos Fallon Globulin (S) [Mass/Vol] 3.8 g/dL Normal [facility] Comment on above: Performed By: #### C MP, HSTROPN, TSH #### [facility] [address] [address] [address] Christos Fallon Glucose [Mass/Vol] 104 mg/dL Normal 74-106 [facility] Comment on above: Performed By: #### C MP, HSTROPN, TSH #### [facility] [address] [place] [address] Dr. Christos Fallon Potassium [Moles/Vol] 4.1 mmol/L Normal 3.5-5.1 [facility] Comment on above: Performed By: #### C MP, HSTROPN, TSH #### [facility] [address] [place] [address] Dr. Christos Fallon Protein [Mass/Vol] 7.4 g/dL Normal 6.4-8.2 [facility] Comment on above: Performed By: #### C MP, HSTROPN, TSH #### [facility] [address] [address] [address] Christos Fallon Sodium [Moles/Vol] 136 mmol/L Normal 136-145 [facility] Comment on above: Performed By: #### C MP, HSTROPN, TSH #### [facility] [address] [place] [address] Dr. Christos Fallon Urea nitrogen [Mass/Vol] 17.0 mg/dL Normal 7.0-18.0 [facility] Comment on above: Performed By: #### C MP, HSTROPN, TSH #### [facility] [address] [place] [address] Dr. Christos Fallon Urea nitrogen/Creatinine [Mass ratio] 17.5 mg/mg Normal [facility] Comment on above: Performed By: #### C MP, HSTROPN, TSH #### [facility] [address] [place] [address] Dr. Christos Fallon TROPONIN, HIGH SENSITIVITYon 03-22-2022 HSTROP <4.0 Normal 4.0-51.3 [facility] Comment on above: Result Comment: CUT- OFF POINTS HAVE BEEN ESTABLISHED BASED ON THE FOURTH UNIVERSAL DEFINITIONS OF MYOCARDIAL INFARCTION. THE UPPER REFERENCE LIMIT (URL) OF TROPONIN, DEFINED THE 99TH PERCENTILE OF cTnI DISTRIBUTION IN A REFERENCE POPULATION, HAS BEEN CONFIRMED THE DECISION THRESHOLD FOR OR DIAGNOSIS. Performed By: #### C MP, HSTROPN, TSH #### [facility] [address] [place] [address] Dr. Christos Fallon TSHon 03-22-2022 TSH 0.854 uIU/mL Normal 0.358-3.740 The [facility] Comment on above: Performed By: #### C MP HSTROPN, TSH #### [facility] [address] [place], [place] [address] Dr. Christos Fallon ASYMPTOMATIC COVID-19 ANTIGE Non 03-03-2022 EUA Statement SEE BELOW Normal The [facility] Comment on above: Result Comment: This [...] sooner. Performed By: #### C VDAGA #### [facility] [address] [place] [address] [address] [address] Christos Fallon SARS-CoV-2 (COVID-19) RNA LEROY+probe Ql (Unsp spec) Positive Critically abnormal NEGATIVE [facility] Comment on above: Result Comment: SARS -CoV-2 antigen present; does not rule out coinfection with other pathogens. Performed By: #### C VDAGA #### [facility] [address] [place], [place] [address] Dr. Christos Fallon [facility]06 SARS-CoV-2 (COVID-19) RNA LEROY+probe Ql (Unsp spec) Detected Critically abnormal NOT DETECTED [facility] Comment on above: Result Comment: This test is not yet approved or cleared by the [place] FDA. When there are no FDA-approved or cleared tests available, and other criteria are met, FDA can make tests available under an emergency access mechanism called an Emergency Use Authorization (EUA). The EUA for this test is supported by the [place] of Health and Human Service's declaration that [...] By: #### C MP, TSH, HSTROPN #### [facility] [address] [place] [address] Dr. Christos Fallon CRPon 11-25-2021 CRP [Mass/Vol] mg/L Normal <=1.0 The [facility] Comment on above: Performed By: #### C MP, TSH, HSTROPN #### [facility] [address] [place] [address] Dr. Christos Fallon VIT B12 AND FOLATEon 022 Cobalamin (Vitamin B12) [Mass/Vol] 329.0 pg/mL Normal 239.0-931.0 [facility] Comment on above: Performed By: #### C MP, TSH, HSTROPN #### [facility] [address] [place] [address] Dr. Christos Fallon FOLATE 8.50 ng/mL Normal >=2.76 The [facility] Comment on above: Performed By: #### C MP, TSH, HSTROPN #### [facility] [address] [place] [address] Dr. Christos Fallon CBC AUTO DIFFon 11-19-2021 BASO # 0.1 103/ul Normal 0.0-0.1 [facility] Comment on above: Performed By: #### C BC #### [facility] [address] [place] [address] Dr. Christos Fallon Basophils/100 WBC (Bld) 0.8 % Normal 0.2-2.0 [facility] Comment on above: Performed By: #### C BC #### [facility] [address] [place] [address] Dr. Christos Fallon EO # 0.3 103/ul Normal 0.0-0.7 [facility] Comment on above: Performed By: #### C BC #### [facility] [address] [place] [address] Dr. Christos Fallon Eosinophils/100 WBC (Bld) 4.8 % Normal 0.9-7.0 [facility] Comment on above: Performed By: #### C BC #### [facility] [address] [place] [address] Dr. Christos Fallon Erythrocyte distribution width (RBC) [Ratio] 12.2 % Normal 11.0-15.0 [facility] Comment on above: Performed By: #### C BC #### [facility] [address] [place] [address] Dr. Christos Fallon Hematocrit (Bld) [Volume fraction] 41.9 % Normal 36.0-48.0 [facility] Comment on above: Performed By: #### C BC #### [facility] [address] [place] [address] Dr. Christos Fallon Hemoglobin (Bld) [Mass/Vol] 14.2 g/dL Normal 12.0-16.0 [facility] Comment on above: Performed By: #### C BC #### [facility] [address] [place] [address] Dr. Christos Fallon IG # 0.03 10e3/ul Normal 0.00-0.03 [facility] Comment on above: Performed By: #### C BC #### [facility] [address] [place] [address] Dr. Christos Fallon IG % 0.5 % Normal 0.0-0.5 [facility] Comment on above: Performed By: #### C BC #### [facility] [address] [place] [address] Dr. Christos Fallon LYMPH # 1.5 103/ul Normal 1.2-3.8 [facility] Comment on above: Performed By: #### C BC #### [facility] [address] [place] [address] Dr. Christos Fallon Lymphocytes/100 WBC (Bld) 24.6 % Normal 20.5-60.0 [facility] Comment on above: Performed By: #### C BC #### [facility] [address] [place] [address] Dr. Christos Fallon MANUAL DIFF REQ NO Normal [facility] Comment on above: Performed By: #### C BC #### [facility] [address] [place] [address] Dr. Christos Fallon MCH (RBC) [Entitic mass] 34.3 pg Critically high 26.7-34.0 [facility] Comment on above: Performed By: #### C BC #### [facility] [address] [place] [address] Dr. Christos Fallon MCHC (RBC) [Mass/Vol] 33.9 g/dL Normal 29.9-35.2 [facility] Comment on above: Performed By: #### C BC #### [facility] [address] [place] [address] Dr. Christos Fallon MCV (RBC) [Entitic vol] 101.2 fL Critically high 81.0-99.0 [facility] Comment on above: Performed By: #### C BC #### [facility] [address] [place] [address] Dr. Christos Fallon MONO # 0.5 103/ul Normal 0.3-0.8 [facility] Comment on above: Performed By: #### C BC #### [facility] [address] [place] [address] Dr. Christos Fallon Monocytes/100 WBC (Bld) 7.2 % Normal 1.7-12.0 [facility] Comment on above: Performed By: #### C BC #### [facility] [address] [place] [address] Dr. Christos Fallon NEUT # 3.9 103/ul Normal 1.4-6.5 [facility] Comment on above: Performed By: #### C BC #### [facility] [address] [place] [address] Dr. Christos Fallon Neutrophils/100 WBC (Bld) 62.1 % Normal 43.0-75.0 [facility] Comment on above: Performed By: #### C BC #### [facility] [address] [address] [address] Christos Fallon Platelet mean volume (Bld) [Entitic vol] 9.1 fL Critically low 9.5-13.5 [facility] Comment on above: Performed By: #### C BC #### [facility] [address] [place] [address] Dr. Christos Fallon PLT 301 103/ul Normal 150-450 [facility] Comment on above: Performed By: #### C BC #### [facility] [address] [address] [address] Christos Fallon RBC 4.14 106/ul Critically low 4.20-5.40 [facility] Comment on above: Performed By: #### C BC #### [facility] [address] [place] [address] Dr. Christos Fallon WBC 6.3 103/ul Normal 4.0-11.0 [facility] Comment on above: Performed By: #### C BC #### [facility] [address] [place] [address] Dr. Christos Fallon FREE T3on 11-19-2021 FREE T3 2.72 pg/mlL Critically low 2.77-5.27 [facility] Comment on above: Performed By: #### C MP, TSH, HSTROPN #### [facility] [address] [place] [address] Dr. Christos Fallon FREE T4on 11-19-2021 Free T4 [Mass/Vol] 1.09 ng/dL Normal 0.78-2.19 [facility] Comment on above: Performed By: #### C MP, TSH, HSTROPN #### [facility] [address] [place] [address] Dr. Christos Fallon GLYCOHEMOGLOBIN A1Con 2021 ADA RECOMMENDATION ADA THERAPEUTIC TARG ET 6.0 - 7.0 ACTION SUGGESTED > 7.0 Normal [facility] Comment on above: Performed By: #### A 1C #### [facility] [address] [address] [address] Christos Fallon Glucose [Mass/Vol] 105 mg/dL Normal [facility] Comment on above: Performed By: #### A 1C #### [facility] [address] [place] [address] Dr. Christos Fallon HbA1c (Bld) [Mass fraction] 5.3 % Normal <=6.0 [facility] Comment on above: Performed By: #### A 1C #### [facility] [address] [place] [address] Dr. Christos Fallon LIPID PROFILEon 11-19-2021 CHOL-HDL RATIO NORM SEE BELOW Normal [facility] Comment on above: Result Comment: 3.3 - 4.4 LOW RISK 4.4 - 7.1 AVERAGE RISK 7.1 - 11.0 MODERATE RISK >11.0 HIGH RISK Performed By: #### C MP, TSH, HSTROPN #### [facility] [address] [address] [address] Christos Fallon Cholesterol [Mass/Vol] 232 mg/dL Critically high <=200 [facility] Comment on above: Performed By: #### C MP, TSH, HSTROPN #### [facility] [address] [place] [address] Dr. Christos Fallon Cholesterol in HDL [Mass/Vol] 60 mg/dL Normal 40-60 [facility] Comment on above: Performed By: #### C MP, TSH, HSTROPN #### [facility] [address] [address] [address] Christos Fallon Cholesterol in LDL [Mass/Vol] 134.6 mg/dL Normal [facility] Comment on above: Performed By: #### C MP, TSH, HSTROPN #### [facility] [address] [place] [address] Dr. Christos Fallon Cholesterol.total/Cho lesterol in HDL [Mass ratio] 3.9 {ratio} Normal [facility] Comment on above: Performed By: #### C MP, TSH, HSTROPN #### [facility] [address] [place] [address] Dr. Christos Fallon HDL NORMAL > or = 60 mg/dl - LO W CARDIOVASCULAR RISK <40 mg/dl - HIGH CARDIOVASCULAR RISK Normal [facility] Comment on above: Performed By: #### C MP, TSH, HSTROPN #### [facility] [address] [address] [address] Christos Fallon LDL CALC NORMAL SEE BELOW Normal [facility] Comment on above: Result Comment: <100 mg/dl OPTIMAL 100 - 129 mg/dl NEAR OR ABOVE OPTIMAL 130 - 159 mg/dl BORDERLINE HIGH 160 - 189 mg/dl HIGH >190 mg/dl VERY HIGH Performed By: #### C MP, TSH, HSTROPN #### [facility] [address] [address] [address] Christos Fallon Triglyceride [Mass/Vol] 187 mg/dL Critically high <=150 [facility] Comment on above: Performed By: #### C MP, TSH, HSTROPN #### [facility] [address] [address] [address] Christos Fallon VLDL CALC 37.4 mg/dL Normal [facility] Comment on above: Performed By: #### C MP, TSH, HSTROPN #### [facility] [address] [address] [address] Christos Fallon PROF 14(COMP METB)on 022 Albumin [Mass/Vol] 3.8 g/dL Normal 3.4-5.0 [facility] Comment on above: Performed By: #### C MP, TSH, HSTROPN #### [facility] [address] [address] [address] Christos Fallon Albumin/Globulin [Mass ratio] 1.1 {ratio} Normal [facility] Comment on above: Performed By: #### C MP, TSH, HSTROPN #### [facility] [address] [address] [address] Christos Fallon ALP [Catalytic activity/Vol] 77 U/L Normal 46-116 [facility] Comment on above: Performed By: #### C MP, TSH, HSTROPN #### [facility] [address] [address] [address] Christos Fallon ALT [Catalytic activity/Vol] 34 U/L Normal 14-59 [facility] Comment on above: Performed By: #### C MP, TSH, HSTROPN #### [facility] [address] [address] [address] Christos Fallon Anion gap [Moles/Vol] 11.5 mmol/L Normal [facility] Comment on above: Performed By: #### C MP, TSH, HSTROPN #### [facility] [address] [address] [address] Christos Fallon AST [Catalytic activity/Vol] 21 U/L Normal 15-37 [facility] Comment on above: Performed By: #### C MP, TSH, HSTROPN #### [facility] [address] [address] [address] Christos Fallon Bilirubin [Mass/Vol] 0.7 mg/dL Normal 0.2-1.3 [facility] Comment on above: Performed By: #### C MP, TSH, HSTROPN #### [facility] [address] [address] [address] Christos Fallon Calcium [Mass/Vol] 8.8 mg/dL Normal 8.5-10.1 [facility] Comment on above: Performed By: #### C MP, TSH, HSTROPN #### [facility] [address] [address] [address] Christos Fallon Chloride [Moles/Vol] 104 mmol/L Normal 98-107 [facility] Comment on above: Performed By: #### C MP, TSH, HSTROPN #### [facility] [address] [address] [address] Christos Fallon CO2 [Moles/Vol] 28.6 mmol/L Normal 22.0-30.0 [facility] Comment on above: Performed By: #### C MP, TSH, HSTROPN #### [facility] [address] [address] [address] Christos Fallon Creatinine [Mass/Vol] 0.88 mg/dL Normal 0.52-1.04 [facility] Comment on above: Performed By: #### C MP, TSH, HSTROPN #### [facility] [address] [place] [address] Dr. Christos Fallon EGFR-AF MACEDONIAN >60 Normal >=60 [facility] Comment on above: Performed By: #### C MP, TSH, HSTROPN #### [facility] [address] [place] [address] Dr. Christos Fallon EGFR-NON AF MACEDONIAN >60 Normal >=60 [facility] Comment on above: Performed By: #### C MP, TSH, HSTROPN #### [facility] [address] [place] [address] Dr. Christos Fallon Globulin (S) [Mass/Vol] 3.5 g/dL Normal [facility] Comment on above: Performed By: #### C MP, TSH, HSTROPN #### [facility] [address] [place] [address] Dr. Christos Fallon Glucose [Mass/Vol] 101 mg/dL Normal 74-106 [facility] Comment on above: Performed By: #### C MP, TSH, HSTROPN #### [facility] [address] [place] [address] Dr. Christos Fallon Potassium [Moles/Vol] 4.1 mmol/L Normal 3.4-5.0 [facility] Comment on above: Performed By: #### C MP, TSH, HSTROPN #### [facility] [address] [place] [address] Dr. Christos Fallon Protein [Mass/Vol] 7.3 g/dL Normal 6.1-8.2 [facility] Comment on above: Performed By: #### C MP, TSH, HSTROPN #### [facility] [address] [place] [address] Dr. Christos Fallon Sodium [Moles/Vol] 140 mmol/L Normal 137-145 [facility] Comment on above: Performed By: #### C MP, TSH, HSTROPN #### [facility] [address] [address] [address] Christos Fallon Urea nitrogen [Mass/Vol] 11.0 mg/dL Normal 7.0-18.0 [facility] Comment on above: Performed By: #### C MP, TSH, HSTROPN #### [facility] [address] [address] [address] Christos Fallon Urea nitrogen/Creatinine [Mass ratio] 12.5 mg/mg Normal [facility] Comment on above: Performed By: #### C MP, TSH, HSTROPN #### [facility] [address] [address] [address] Christos Fallon TSHon 11-19-2021 TSH 0.774 uIU/mL Normal 0.470-4.680 [facility] Comment on above: Performed By: #### C MP, TSH, HSTROPN #### [facility] [address] [address] [address] Christos Fallon TSH RANGE SEE BELOW Normal [facility] Comment on above: Result Comment: <0.3 4 UIU/ml HYPERTHYROID 0.34-5.60 UIU/ml EUTHYROID >5.60 UIU/ml HYPOTHYROID Performed By: #### C MP, TSH, HSTROPN #### [facility] [address] [place] [address] Dr. Christos Fallon XR TSPINE 2 VIEWSon [...] TAMIE GUILLERMO Date: 2021-11-19 12:49 Normal [facility] Reporton 11-17-2021 Cardiovascular Lab Report [facility] Patient Name: Kaila Vasquez [facility] MR #: [id number] Physician: Jonny Fowler M.D. Department of Service Date: 11/17/2021 Medicine Birthdate: 1980 Division of Room #: CC Cardiology Adult Cardiovascular Services [facility] [address] [facility] [place] [address] Cardiovascular Laboratory Report PROCEDURE: Implantable loop recorder [...] subcutaneous pocket, into which was deployed a [employer] BioMonitor 3 implantable loop recorder. Via off [...] Fowler M.D. Date Trans: 11/17/2021 12:41 P/mmo [id number] cc: Mert Lama M.D. [address] [place] [address] A [facility] [id number] Normal [facility] Covid-19 PCR (CVDTBH)on SARS-CoV-2 (COVID-19) RNA LEROY+probe Ql (Unsp spec) Not detected Normal NOT DETECTED [facility] Comment on above: Result Comment: This test is not yet approved or cleared by the [place] FDA. When there are no FDA-approved or cleared tests available, and other criteria are met, FDA can make tests available under an emergency access mechanism called an Emergency Use Authorization (EUA). The EUA for this test is supported by the [place] of Health and Human Service's (HHS's) declaration [...] By: #### C MP, TSH, HSTROPN #### [facility] [address] [place] [address] Dr. Christos Fallon Covid-19 PCR (CVDTBH)on SARS-CoV-2 (COVID-19) RNA LEROY+probe Ql (Unsp spec) Not detected Normal NOT DETECTED [facility] Comment on above: Result Comment: When diagnostic [...] for this test is supported by the [employer] of Health and Human Service's declaration that [...] longer be used). Performed By: #### C [facility] #### [facility] [address] [address] [address] Christos Fallon Cardiovascular Lab Reporton 06-17-2021 Cardiovascular Lab Report [facility] Patient Name: Christina [facility] MR #: [id number] Physician: Vishal Rogers MD Department of Service Date: 06/17/2021 Medicine Birthdate: 1980 Division of Room #: CC Cardiology Adult Cardiovascular Services [place] [address] Cardiovascular Laboratory Report COMPREHENSIVE EP STUDY AND [...] follows. RFV: 5Fx2 RV/RA/CRD2 His EP Cath: [place] Bean/[place], 8Fx2: Pentaray changed to [employer] [...] same (more content not included)... Normal [facility] FEMUR LEFT 2 [facility] 1 FEMUR LEFT 2 [facility] Department of Radiology [address] [place] [phone] ======== Patient Name: KAILA VASQUEZ : 1980 Sex: F Age: Race: White Pt. 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 Electronically signed: Gelacio Pfeiffer. Transcribed by: [email or web address], User Resident: TAVON BELCHER Electronically Signed by: GELACIO PFEIFFER @ 01/15/2021 12:03 PM I personally read this/these film(s) with this resident Normal The [facility] Comment on above: Order Comment: evalu ate Operative Reporton Operative Report MR#: [id number] S [facility] Pt. Name: Kaila Vasquez Room #: 0C Discharge 12/05/2020 Date: Birthdate: 1980 OPERATIVE REPORT DATE OF SURGERY: 12/05/2020 SURGEON: Pamella Brennan M.D. PREOPERATIVE DIAGNOSIS: Left distal femur osteochondroma. POSTOPERATIVE DIAGNOSIS: Left distal femur osteochondroma. PROCEDURE PERFORMED: Left distal femur osteochondroma excision. MILLING MACHINIST: Alaina Edouard M.D. ANESTHESIA: General endotracheal. SPECIMENS: [...] i (more content not included)... Normal [facility] FEMUR LEFT 2 [facility] 1 FEMUR LEFT 2 [facility] Department of Radiology [address] [place] [phone] ======== Patient Name: KAILA VASQUEZ : 1980 Sex: F Age: Race: White Pt. Location: OUTP Patient Status: O Ordered Date: 12/05/2020 7:30:00 AM Completed Date: 12/05/2020 10:05 AM Requesting Provider: PAMELLA BRENNAN Attending Provider: PAMELLA BRENNAN Report Copy To: Signs & Symptoms: LEFT DISTAL FEMUR OSTEOCHONDROMA EXCISION History: Comments: LEFT DISTAL FEMUR OSTEOCHONDROMA EXCISION Exam: FEMUR LEFT 2 [facility] ======== FEMUR LEFT 2 VWS 12/05/2020 10:05 [...] purposes. Electronically signed: Ching Garcia. Transcribed by: [email or web address], User Resident: Electronically Signed by: CHING GARCIA @ 12/05/2020 11:54 AM Normal [facility] Comment on above: Order Comment: LEFT DISTAL FEMUR OSTEOCHONDROMA EXCISION POC GLUCOSE LABon 12-05-2020 Glucose [Mass/Vol] 108 mg/dL High 70-100 [facility] Comment on above: Performed By: #### 8 [id number] ####[facility] *MRSA/MSSA DNA NASALon 11-28 *MRSA/MSSA DNA NASAL Clinical Report: (D ) Specimen: NASAL SWAB Collected: 11/28/2020 13:22 Status: Final Last Updated: 2020 13:05 MSSA DNA (Final) Negative MRSA DNA (Final) Negative Normal [facility] Comment on above: Performed By: #### 3 1595 ####[facility] [place] [address], [facility] APTTon 11-28-2020 aPTT Coag (Bld) [Time] 29.1 s Normal 25.0-35.0 [facility] Comment on above: Result Comment: ALL [...] THIS PURPOSE. Performed By: #### 5 7307, 78096 #### [facility] [address] [place] [address], [facility] BASIC METABOLIC PANELon 04-2 Calcium [Mass/Vol] 9.5 mg/dL Normal 8.6-10.3 [facility] Comment on above: Performed By: #### 0 0071 #### [facility] [address] [place] [address], [facility] Chloride [Moles/Vol] 104 mmol/L Normal 98-107 [facility] Comment on above: Performed By: #### 0 0071 #### [facility] [address] [place] [address], [place] CO2 [Moles/Vol] 28 mmol/L Normal 21-31 [facility] Comment on above: Performed By: #### 0 0071 #### [facility] [address] [place] [address], [facility] Creatinine [Mass/Vol] 0.90 mg/dL Normal 0.60-1.20 [facility] Comment on above: Performed By: #### 0 0071 #### [facility] [address] [place] [address], [place] GFR/1.73 sq M.predicted among blacks MDRD (S/P/Bld) [Vol rate/Area] mL/min/{1.73_m2} Normal >60 [facility] Comment on above: Performed By: #### 0 0071 #### [facility] [address] GFR/1.73 sq M.predicted among non-blacks MDRD (S/P/Bld) [Vol rate/Area] mL/min/{1.73_m2} Normal >60 [facility] Comment on above: Performed By: #### 0 0071 #### [facility] [address] [place] [address], [facility] Glucose [Mass/Vol] 132 mg/dL High 70-100 [facility] Comment on above: Performed By: #### 0 0071 #### [facility] [address] Potassium [Moles/Vol] 3.8 mmol/L Normal 3.5-5.1 [facility] Comment on above: Performed By: #### 0 0071 #### [facility] [address] Sodium [Moles/Vol] 138 mmol/L Normal 136-145 [facility] Comment on above: Performed By: #### 0 0071 #### [facility] [address] [facility] [address] Urea nitrogen [Mass/Vol] 9 mg/dL Normal 7-25 [facility] Comment on above: Performed By: #### 0 0071 #### [facility] [address] CBC W/DIFFon 11-28-2020 ABS IMM GRANS 0.0 10*3/uL Normal 0.0-0.2 [facility] Comment on above: Performed By: #### 5 3 ####[facility] [place] [address], [facility] ABS NEUTROPHILS 7.2 10*3/uL Normal 1.6-7.6 [facility] Comment on above: Performed By: #### 5 3 ####[facility] [place] [address], [facility] Basophils (Bld) [#/Vol] 0.1 10*3/uL Normal 0.0-0.2 [facility] Comment on above: Performed By: #### 5 0103 ####[facility] [place] [address], [facility] Basophils/100 WBC (Bld) 0.6 % Normal 0.0-1.0 [facility] Comment on above: Performed By: #### 5 0103 ####[facility] [place] [address], [facility] Eosinophils (Bld) [#/Vol] 0.3 10*3/uL Normal 0.0-0.5 [facility] Comment on above: Performed By: #### 5 3 ####[address] [place] [address] [place] [address], [facility] Eosinophils/100 WBC (Bld) 2.6 % Normal 0.0-6.0 [facility] Comment on above: Performed By: #### 3 ####[facility] [facility].[address] Erythrocyte distribution width (RBC) [Ratio] 12.6 % Normal 11.5-15.0 [facility] Comment on above: Performed By: #### 3 ####[facility] [facility] Hematocrit (Bld) [Volume fraction] 42.6 % Normal 36.0-45.0 [facility] Comment on above: Performed By: #### 5 3 ####[facility] [place] [address], [facility] Hemoglobin (Bld) [Mass/Vol] 14.4 g/dL Normal 12.0-15.0 [facility] Comment on above: Performed By: #### 5 3 ####[facility] IMMATURE GRANS 0.3 % Normal 0.0-1.0 [facility] Comment on above: Performed By: #### 5 0103 ####[facility] Lymphocytes (Bld) [#/Vol] 2.1 10*3/uL Normal 1.2-4.0 [facility] Comment on above: Performed By: #### 5 3 ####[facility] Lymphocytes/100 WBC (Bld) 20.2 % Normal 20.0-45.0 [facility] Comment on above: Performed By: #### 5 102 ####[address] MCH (RBC) [Entitic mass] 33.6 pg High 27.0-33.0 [facility] Comment on above: Performed By: #### 102 ####[place] [id number] MCHC (RBC) [Mass/Vol] 33.8 g/dL Normal 32.0-35.0 [facility] Comment on above: Performed By: #### 3 ####[facility] MCV (RBC) [Entitic vol] 99.5 fL High 82.0-98.0 [facility] Comment on above: Performed By: #### 5 3 ####[place] [address], [facility] Monocytes (Bld) [#/Vol] 0.7 10*3/uL Normal 0.1-1.0 [facility] Comment on above: Performed By: #### 5 3 ####[address] [place] [address], [facility] MONOS 6.4 % Normal 5.0-12.0 [facility] Comment on above: Performed By: #### 5 0103 ####[facility] [place] [address], [facility] Neutrophils/100 WBC (Bld) 69.9 % Normal 40.0-72.0 [facility] Comment on above: Performed By: #### 5 0103 ####[facility] [place] [address], [facility] Nucleated RBC/100 WBC (Bld) [Ratio] 0 % Normal 0-0 [facility] Comment on above: Performed By: #### 5 0103 ####[address] PLAT CNT 346 10*3/uL Normal 150-400 [facility] Comment on above: Performed By: #### 5 0103 ####[facility] [place] [address], [facility] RBC (Bld) [#/Vol] 4.28 10*6/uL Normal 3.80-5.00 [facility] Comment on above: Performed By: #### 5 0103 ####[facility] [place] [address], [facility] WBC (Bld) [#/Vol] 10.24 10*3/uL Normal 4.00-10.60 [facility] Comment on above: Performed By: #### 5 0103 ####[facility] PROTHROMBIN TIMEon 1 INR Coag (PPP) [Relative time] 0.99 {INR} Normal 0.91-1.16 [facility] Comment on above: Result Comment: ACCC [...] CHEST 1995;108:[id number]. Performed By: #### 5 7307, [id number] #### [facility] [address] [place] [address], [facility] PT Coag (PPP) [Time] 13.1 s Normal 12.3-14.8 [facility] Comment on above: Result Comment: ALL RESULTS MUST BE INTERPRETED WITH RESPECT TO BLOOD DRAWING ARTIFACT OR DILUTION ERROR OF ANTICOAGULANT AT THE TIME OF SAMPLING. Performed By: #### 5 7307, 25285 #### [facility] [address] [facility] [address], [facility] TYPE AND CROSSMATCHon 2020 ABO INTERPRETATION O Normal [facility] Comment on above: Performed By: #### 6 2594 #### [facility] [address] [place] [address], [facility] RH INTERPRETATION Positive Normal [facility] Comment on above: Performed By: #### 6 2594 #### [facility] [address] [place] [id number], [facility] URINALYSISon 11-28-2020 Appearance (U) CLEAR Normal CLEAR [facility] Comment on above: Performed By: #### 1 0008 #### [facility] [address] [place] [address], [place] Bilirubin Ql (U) Negative Normal NEGATIVE [facility] Comment on above: Performed By: #### 1 0008 #### [facility] [address] [place] [address], [place] Color (U) YELLOW Normal YELLOW [facility] Comment on above: Performed By: #### 1 0008 #### [facility] [address] [place] [address], [place] Glucose Ql (U) Negative Normal NEGATIVE [facility] Comment on above: Performed By: #### 1 0008 #### [facility] [address] [place] [address], [place] Hemoglobin Ql (U) Negative Normal NEGATIVE [facility] Comment on above: Performed By: #### 1 0008 #### [facility] [address] [place] [address], [place] KETONE Negative Normal NEGATIVE [facility] Comment on above: Performed By: #### 1 0008 #### [facility] [address] [place] [address], [place] LEUK JORDAN Negative Normal NEGATIVE [facility] Comment on above: Performed By: #### 1 0008 #### [facility] [address] [place] [address], [facility] MICRO NOT DONE Normal [facility] Comment on above: Result Comment: Micr oscopics not performed on urines with negative chemical reactions unless requested in original order Performed By: #### 1 0008 #### [facility] [address] [place] [address], [place] Nitrite Ql (U) Negative Normal NEGATIVE [facility] Comment on above: Performed By: #### 1 0008 #### [facility] [address] [place] [address], [place] pH (U) 6.0 [pH] Normal 5.0-8.0 [facility] Comment on above: Performed By: #### 1 0008 #### [facility] [address] [facility] [place] [place] [address], [facility] Protein Ql (U) Negative Normal NEGATIVE [facility] Comment on above: Performed By: #### 1 0008 #### [facility] [address] [place] [address], [facility] SPEC GRAV 1.018 Normal 1.015-1.020 [facility] Comment on above: Performed By: #### 1 0008 #### [facility] [address] [facility]. [address] Vital Signs Date Time Vital Sign Value Performing Clinician Faci lity 08-24-2022 13:44-0500 Body height 162.6 cm Janell Sy MD Work Phone: [facility] 08-24-2022 13:44-0500 Body weight 112.95 kg Janell Sy MD Work Phone: [facility] 08-24-2022 13:44-0500 Diastolic blood pressure 73 mm[Hg] Janell Sy MD Work Phone: [facility] 08-24-2022 13:44-0500 Heart rate 88 /min Janell Sy MD Work Phone: [facility] 08-24-2022 13:44-0500 SaO2% (BldA) [Mass fraction] 98 % Janell Sy MD Work Phone: [facility] 08-24-2022 13:44-0500 Systolic blood pressure 112 mm[Hg] Janell Sy MD Work Phone: [facility] 08-05-2022 10:00-0500 Diastolic blood pressure 88 mm[Hg] Carmen Johnson PT Work Phone: [facility] 08-05-2022 10:00-0500 Heart rate 78 /min Carmen Johnson PT Work Phone: [facility] 08-05-2022 10:00-0500 Systolic blood pressure 134 mm[Hg] Carmen Johnson PT Work Phone: [facility] 07-07-2022 08:12-0500 Body height 162.6 cm Glenroy Syed CORE DROPPER.PORCELAIN ENAMEL SPRAYER Work Phone: [facility] 07-07-2022 08:12-0500 Body weight 112.04 kg Glenroy Syed CORE DROPPER.PORCELAIN ENAMEL SPRAYER Work Phone: [facility] 07-07-2022 08:12-0500 Diastolic blood pressure 88 mm[Hg] Glenroy Syed CORE DROPPER.PORCELAIN ENAMEL SPRAYER Work Phone: [facility] 07-07-2022 08:12-0500 Heart rate 82 /min Glenroy Syed CORE DROPPER.PORCELAIN ENAMEL SPRAYER Work Phone: [facility] 07-07-2022 08:12-0500 SaO2% (BldA) [Mass fraction] 98 % Glenroy Syed CORE DROPPER.PORCELAIN ENAMEL SPRAYER Work Phone: [facility] 07-07-2022 08:12-0500 Systolic blood pressure 134 mm[Hg] Glenroy Syed CORE DROPPER.PORCELAIN ENAMEL SPRAYER Work Phone: [facility] 12-09-2021 13:59-0400 Blood Pressure Location Pamella SANABRIA [facility] 12-09-2021 13:59-0400 Diastolic blood pressure 78 mm[Hg] Pamella SANABRIA [facility] 12-09-2021 13:59-0400 Heart rate 68 /min Pamella ZIMMERMANL [facility] [place] 12-09-2021 13:59-0400 Respiratory rate 16 /min Pamella ZIMMERMANL [facility] 12-09-2021 13:59-0400 Systolic blood pressure 118 mm[Hg] Pamella SANABRIA [facility] Encounters Encounter Date Encounter Type Care Provider Facility Start: 03-06-2024 ambulatory [facility] Start: 01-31-2024 ambulatory [facility] Start: 01-24-2024 ambulatory [facility] Start: 12-19-2023 End: 12-20-2023 ambulatory Cristiane Willem Gutiérrez Facility:[facility] Start: 12-02-2023 ambulatory [facility] Start: 10-25-2023 End: 10-25-2023 ambulatory IRMA ALCANTARAZIO Not Available Start: 08-25-2023 End: 08-25-2023 ambulatory IRMA HALEY Not Available Start: 10-15-2022 Orders Only Glenroy Syed CORE DROPPER.PORCELAIN ENAMEL SPRAYER Work Phone: Neurology Comment on above: 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 (Primary Dx) Start: 10-14-2022 End: 10-14-2022 ambulatory GLENROY SYED Facility:[facility] Start: 09-09-2022 ambulatory Mauri Ross RT(R) Ra soto Comment on above: Radiology MRI Start: 09-09-2022 Patient encounter procedure Mauri Ross RT(R) RONALDO EASON Start: 09-02-2022 End: 09-02-2022 ambulatory ELENA GUAN Facility: Start: 08-24-2022 End: 08-24-2022 ambulatory GLENROY SYED Facility:[facility] Start: 08-24-2022 End: 08-24-2022 Patient encounter procedure Janell Sy MD Work Phone: Cardiology Comment on above: KANG (obstructive sle ep apnea) (Primary Dx); Dizziness; Palpitations; Obesity, morbid, BMI 40.0-49.9 (HCC); SVT (supraventricular tachycardia) (HCC); Chronic fatigue; Vitamin D deficiency Start: 08-20-2022 Orders Only Len Shea CORE DROPPER.PORCELAIN ENAMEL SPRAYER Work Phone: Neurology Comment on above: Ocular migraine (Dinora andres Dx) Start: 08-19-2022 End: 08-19-2022 ambulatory [facility] Neurology Comment on above: Neuro Ophthalmologis t Start: 08-16-2022 ambulatory [facility] Neurology Comment on above: MRI Start: 08-12-2022 End: 08-12-2022 ambulatory GLENROY SYED Facility:[facility] Start: 08-12-2022 End: 08-12-2022 ambulatory Carmen Seese PT Work Phone: Physical Therapy Comment on above: Dizziness (Primary D x); Cervicalgia; Headaches Start: 08-05-2022 End: 08-05-2022 ambulatory GLENROY SYED Facility:[facility] Start: 08-05-2022 End: 08-05-2022 ambulatory Carmen Seese PT Work Phone: Physical Therapy Comment on above: Dizziness (Primary D x); Cervicalgia; Headaches Start: 07-29-2022 End: 07-29-2022 ambulatory WM RODRIGUEZ Facility:[facility] Start: 07-21-[address] MERT LAMA Facilit y:[facility] Start: 07-07-2022 Telephone encounter Glenroy rodriguez CORE DROPPER.PORCELAIN ENAMEL SPRAYER Work Phone: Neurology Comment on above: Received Outside Med ical Records Start: 07-07-2022 End: 07-07-2022 ambulatory GLENROY SYED Facility:[facility] Start: 07-07-2022 End: 07-07-2022 Patient encounter procedure Glenroy Syed CORE DROPPER.PORCELAIN ENAMEL SPRAYER Work Phone: Neurology Comment on above: Dizziness (Primary D x); Migraine aura without headache; Palpitations; Chronic fatigue; Vision changes; Disturbance of skin sensation Start: 06-14-2022 End: 06-15-[address] MERT LAMA Facility:[facility] Start: 04-14-2022 End: 04-15-[address] MERT LAMA Facility:[facility] Start: 03-22-2022 End: 03-22-2022 ambulatory JOHNSON PRAK Facility:[facility] Start: 03-16-2022 End: 03-17-[address] MERT LAMA Facility:[facility] Start: 03-03-2022 End: 03-03-2022 ambulatory WM RODRIGUEZ Facility:[facility] Start: 02-26-2022 End: 02-26-2022 ambulatory WM RODRIGUEZ Facility:[facility] Start: 01-31-2022 End: 01-31-[address] PEG AGUIRRE Facility:[facility] Start: 12-30-2021 End: 12-30-[address] PAMELLA SANABRIA Facility:[facility] Start: 12-09-2021 End: 12-09-2021 Patient encounter procedure Pamella SANABRIA [facility] Start: 11-25-2021 End: 11-26-[address] MERT LAMA Facility:[facility] Start: 11-23-2021 Encounter for genera l adult medical examination without abnormal findings DR MERT LAMA [facility] Start: 11-19-2021 End: 11-20-[address] MERT LAMA Facility:[facility] Start: 11-19-2021 End: 11-20-2021 Encounter for general adult medical examination without abnormal findings DR MERT LAMA Facility:[facility] Start: 11-17-2021 End: 11-18-2021 ambulatory MERT LAMA Facility:[facility] Start: 11-14-2021 End: 11-15-2021 ambulatory ANU CABAN Facility:[facility] Start: 10-08-2021 End: 10-08-2021 ambulatory WM RODRIGUEZ Facility:[facility] Start: 06-17-2021 End: 06-18-2021 ambulatory MERT LAMA Facility:[facility] Start: 04-16-2021 End: 05-23-2021 ambulatory MERT LAMA Facility:[facility] Start: 12-05-2020 End: 12-06-2020 ambulatory MERT LAMA Facility:[facility] Procedures Date Procedure Procedure Detail Performing Clinician Start: 08-24-2022 Ecg routine ecg w/le ast 12 lds i&r only [facility] Provider Start: 12-05-2020 ANESTH KNEE AREA SURGERY MERT LAMA Start: 12-05-2020 REMOVE FEMUR LESION CARLOS HAEL P MIKA Start: 11-28-2020 Antibody screen MERT ORTIZ Comment on above: Performed By: #### 6 [id number] #### [facility] [employer]. [address] Start: 11-04-2020 Cystourethroscopy wi th dilation of urethral stricture Pamella DANIELE Abdominal hysterectomy Wale ZIMMERMANWillem Bilateral complete salpingectomy Pamella DANIELE Cardiac radiofrequen cy ablation using ultrasound guidance Pamella DANIELE Cholecystectomy Pamella ZIMMERMANWillem Excision of osteochondroma Nestor SANABRIA History of ankle surgery Carlos ZIMMERMANWillem Plan of Treatment Date Care Activity Detail Author Start: 08-08-2022 DEPRESSION ASSESSMENT DEPRESSION ASS [facility] Start: 07-07-2022 End: 09-06-2022 25-hydroxyvitamin D3 [Mass/volume] in Serum or Plasma [facility] Work Phone: Comment on above: Expected: 07/07/2022 , Expires: 09/06/2022 Start: 07-07-2022 End: 09-06-2022 ESEQUIEL BY IFA WITH REFLEX [facility] Work Phone: Comment on above: Expected: 07/07/2022 , Expires: 09/06/2022 Start: 04-08-2022 Influenza vaccination INFLUENZA (#1) [facility] Start: 08-08-2021 DEPRESSION ASSESSMENT DEPRESSION ASS [facility] Start: 11-05-2020 COVID-19 VACCINE (3 - Booster for Giancarlo series) COVID-19 VACCINE (3 - Booster for Giancarlo series) [facility] Start: 2012 HPV TESTING HPV TESTING [facility] Start: 11-30-2003 PAP TESTING PAP TESTING [facility] Start: 2001 Urine microalbumin profile DTA P,TDAP,TD (1 - Tdap) [facility] Start: 2000 HEPATITIS C SCREENING HEPATITIS C SC PARKER [facility] Start: 2000 HIV SCREENING HIV SCREENING [facility] Start: 1982 HEPATITIS B (1 of 3 - 3-dose series) HEPATITIS B (1 of 3 - 3-dose series) [facility] End: 08-24-2023 ECG COMPLETE ECG COMPLETE ECG Routine Dizziness Palpitations Obesity, morbid, BMI 40.0-49.9 (HCC) 1 Occurrences starting 08/24/2022 until 08/24/2023 [facility] Work Phone: Comment on above: 1 Occurrences starti ng 08/24/2022 until 08/24/2023 ECG COMPLETE ECG COMPLETE ECG 08/24/2022 1:56 PM EST [facility] End: 07-07-2023 Echocardiography ECHO Cardiology Routine Palpitations 1 Occurrences starting 07/07/2022 until 07/07/2023 [facility] Work Phone: Comment on above: 1 Occurrences starti ng 07/07/2022 until 07/07/2023 End: 08-06-2023 Mri brain brain stem w/o w/contrast material MRI BRAIN WO/W IVCON Radiology Routine Dizziness Vision changes 1 Occurrences starting 07/07/2022 until 08/06/2023 [facility] Work Phone: Comment on above: 1 Occurrences starti ng 07/07/2022 until 08/06/2023 End: 09-15-2023 Mri spinal canal cervical w/o & w/contr matrl MRI CERVICAL SPINE WO/W IVCON Radiology Routine Dizziness Vision changes Cervicalgia Disturbance of skin sensation 1 Occurrences starting 08/16/2022 until 09/15/2023 [facility] Work Phone: Comment on above: 1 Occurrences starti ng 08/16/2022 until 09/15/2023 [facility] Immunizations Immunization Date Immunization Notes Care Provider Tayo cullen 09-10-2020 SARS-CoV-2 (COVID-19 ) Ad26 vaccine, recombinant Pamella NILL [facility] 08-12-2020 SARS-CoV-2 (COVID-19 ) Ad26 vaccine, recombinant Pamella NILL [facility] Payers Date Payer Category Payer Unknown [id number] 2021 Unknown [id number] 1982 Unknown [id number] 2.16.8 [id number] 1982 Unknown [id number] 2.16.8 40.1.476161.3.579.2.647 1982 Unknown [id number] 2.16.8 40.1.920260.3.579.2.647 1982 Unknown [id number] 2.16.8 40.1.062101.3.579.2.647 1982 Unknown [id number] 2.16.84 0.1.565764.3.579.2.593 1982 Unknown [id number] 2.16.84 0.1.547708.3.579.2.593 1982 Unknown [id number] 2.16.84 0.1.807463.3.579.2.593 1982 Unknown [id number] 2.16.84 0.1.154720.3.579.2.593 1982 Unknown [id number] 2.16.84 0.1.313628.3.579.2.593 1982 Unknown [id number] 2.16.84 0.1.852724.3.579.2.593 1982 Unknown [id number] 2.16.84 0.1.239272.3.579.2.593 1982 Unknown [id number] 2.16.84 0.1.006368.3.579.2.593 1982 Unknown [id number] 2.16.84 0.1.948466.3.579.2.593 1982 Unknown [id number] 2.16.84 0.1.195369.3.579.2.593 1982 Unknown [id number] 2.16.84 0.1.109167.3.579.2.593 1982 Unknown [id number] 2.16.84 0.1.508215.3.579.2.593 1982 Unknown [id number] 2.16.84 0.1.339287.3.579.2.593 1982 Unknown [id number] 2.16.84 0.1.844237.3.579.2.593 1982 Unknown [id number] 2.16.84 0.1.028458.3.579.2.593 1982 Unknown [id number] 2.16.84 0.1.541331.3.579.2.1259 1982 Unknown [id number] 2.16.84 0.1.661346.3.579.2.1259 1982 Unknown [id number] 2.16.8 40.1.130903.3.579.2.727 1959 Unknown [id number] Social History Date Type Detail Facility Start: 12-09-2021 End: 07-07-2022 Tobacco smoking status Never smoked tobacco (finding) [facility] [place] Tobacco smoking status Never [facility] [place] Sex Assigned At Female [facility] [place] Start: 07-07-2022 Tobacco use and exposure Smokeless tobacco non-user [facility] Start: 1980 Sex Assigned At Not on file [facility] Start: 06-27-2022 End: 07-07-2022 Exposure to SARS-CoV-2 (event) Not sure [facility] Start: 08-24-2022 Alcohol intake Current drinke r of alcohol (finding) [facility] Start: 08-24-2022 Alcohol Comment occasionally 1 -2 times a months 2-3 drinks [facility] Clinical Notes 12-30-2021 to 10-14-2022 Mauri Ross, RT(R) - 09/09/2022 2:11 PM Marilyn Sy MD - 08/24/2022 1:45 PM ESTTelephone Encounter - Glenroy Syed APRN.SARIKA - 08/16/2022 8:28 AM Elio Johnson PT - 08/12/2022 2:51 PM EST Note Date & Type Note Facility 10-14-2022 Note HNO ID: [id number] Author: RT Mary(Matteo) Service: ? Author Type: [...] RT Mary(R) October 14, 2022 4:55 PM [facility] 10-14-2022 Note HNO ID: [id number] Author: Papa Rea RN Service: Radiology Author [...] SITE APPEARANCE: Clean,Dry and Intact SIGNATURE: Papa Rae RN PATIENT NAME: Kaila Vasquez DATE: October 14, 2022 TIME: 3:20 PM [facility] 09-09-2022 Note HNO ID: [id number] Author: RT Od[place](Matteo) Service: ? Author Type: [...] 09, 2022 TIME: 2:11 PM PAGER/CONTACT #: [facility] 09-09-2022 History of Present illness Narrative [...] PM PAGER/CONTACT #: documented in this encounter [facility] 08-24-2022 Note HNO ID: [id number] Author: Janell Sy MD Service: ? Author Type: Physician Type: Progress Notes Filed: 08/24/2022 2:17 PM Note Text: [facility] SE[facility] OF REGIONAL CARDIOLOGY OUTPATIENT VISIT DATE [...] Cardiac work-up includes: Echocardiogram on 05/19/2020 at [facility] showed normal ejection fraction. No valvular [...] ECG COMPLETE 4. Obesity, morbid, BMI 40.0-49.9 ([facility]) E66.01 ECG COMPLETE 5. SVT (supraventricular tachycardia) ([facility]) I47.1 6. Chronic fatigue R53.82 [...] PVC (premature ventricular contraction) SVT (supraventricular tachycardia) ([facility]) Vitamin D deficiency No past surgical history on file. Social History Tobacco Use Smoking status: Never Smokeless tobacco: Never Vaping U (more content not included)... [facility] 08-24-2022 History of Present illness Narrative Images from the original note were not included. [facility] OF REGIONAL CARDIOLOGY OUTPATIENT VISIT DATE [...] Cardiac work-up includes: Echocardiogram on 05/19/2020 at [facility] showed normal ejection fraction. No valvular [...] ECG COMPLETE 4. Obesity, morbid, BMI 40.0-49.9 ([facility]) E66.01 ECG COMPLETE 5. SVT (supraventricular tachycardia) ([facility]) I47.1 6. Chronic fatigue R53.82 [...] PVC (premature ventricular contraction) SVT (supraventricular tachycardia) ([facility]) Vitamin D deficiency No past [...] twice daily.^Disp: ^Rfl: documented in this encounter [facility] 08-19-2022 Note HNO ID: [id number] Author: Mauri Chun OD Service: ? Author Type: MARKETING STRATEGY LEAD Type: Progress Notes Filed: 08/19/2022 10:22 AM Note Text: Ocular health is unremarkable with no abnormalities. Normal ON appearance Ophthalmic migraines Glasses Rx given with slight prism [facility] 08-16-2022 Miscellaneous Notes signed We can add it to fully evaluate her symptoms. -LP documented in this encounter [facility] 08-12-2022 Note HNO ID: [id number] Author: Carmen Johnson, PT Service: ? Author [...] Time Minutes (timed/untimed): 60 Carmen Johnson, PT [facility] 08-12-2022 History of Present illness Narrative [...] Carmen Johnson PT documented in this encounter [facility] 08-05-2022 Note HNO ID: [id number] Author: Carmen Johnson PT Service: ? Author [...] Planned: 8 Planned Treatment Interventions: Therapeutic exercise (67363);Neuromuscular re-education (27988);Manual therapy (97021);Therapeutic activities (90129);Self-assisted management (12799);Patient/Family/Caregiver Education;Gait Training (28095);Canalith Repositioning Maneuvers (47021) PLAN FOR NEXT VISIT: Detailed neck exam [...] sensitivity to light and sounds. Occ. Accompanies FRANCSI, not normally. Sometimes 1-3 times avg per [...] Premature atrial contra (more content not included)... [facility] 08-05-2022 History of Present illness Narrative [...] Planned: 8 Planned Treatment Interventions: Therapeutic exercise (72238);Neuromuscular re-education (82748);Manual therapy (98187);Therapeutic activities (38916);Self-assisted management (74631);Patient/Family/Caregiver Education;Gait Training (81246);Canalith Repositioning Maneuvers (73347) PLAN FOR NEXT VISIT: Detailed neck exam [...] Positional Testing Right Juan-Hallpike: No nystagmus;Asymptomatic Left Juan-Hallpike: No nystagmus;Asymptomatic Right [...] Demonstration;Requires Review/Additional Education TREATMENT: PT Treatment Interventions: Self-Jail Management;Therapeutic Exercise Evaluation Therapeutic Exercise: 1: c/s retractions x 10, cues for technique Skilled Intervention: Patient was educated in proper exercise technique and purpose for exercises. Patient education as noted. Self-Jail Management: 1: Educated regarding potential multifactorial cause [...] Carmen Johnson PT documented in this encounter [facility] 07-07-2022 Note HNO ID: [id number] Author: Glenroy Syed APRN.PORCELAIN ENAMEL SPRAYER Service: ? Author Type: Nurse Practitioner Type: Progress Notes Filed: 07/07/2022 12:28 PM Note Text: [facility] General Neurology New Patient Evaluation CHIEF [...] over a month. She has seen an inspector firearms and was told she was having occular migraine by her loan associate. A couple times a month she [...] for 1 dose.N (more content not included)... [facility] 07-07-2022 Miscellaneous Notes Noted. Provider notified. Received medical records from [facility]. Uploaded to chart and forwarded for review. documented in this encounter [facility] 07-07-2022 Instructions Glenroy Syed APRN.PORCELAIN ENAMEL SPRAYER - 07/07/2022 9:06 AM EST Plan: Baseline labs MRI Brain for multiple symptoms ECHO for palpitations and arrhythmias Aspirin 81mg daily in the setting of known arrhythmias Consult to [place] for dizziness Consult to Cardiology for second opinion Consult to ophthalmology Follow up after testing documented in this encounter [facility] 07-07-2022 History of Present illness Narrative Images from the original note were not included. [facility] General Neurology New Patient Evaluation CHIEF [...] over a month. She has seen an inspector firearms and was told she was having occular migraine by her loan associate. A couple times a month she [...] Finger Abduction (U) 5 Finger Abduction 5 Flight Communications Officer 5 Flight Communications Officer 5 Right Lower Extremity: (of 5) Left [...] over a month. She has seen an inspector firearms and was told she was having occular migraine by her loan associate. A couple times a month she [...] [place] reccommended. Patient wanting second opinion from loan associate within the [facility], referral placed. Unlikely autonomic dysfunction with unremarkable tilt and orthostatic vitals in office unconvincing (did not take BB today). Additionally, with visual changes, recommended seeing neuro professional fee coder. Will obtain additional labs as well. Follow [...] which included preparing to see the patient, bexo-mo-flzg patient care, completing clinical documentation, obtaining and/or reviewing separately obtained history, performing a medically appropriate examination, counseling and educating the patient/family/caregiver, ordering medications, tests, or procedures, and care coordination (not separately reported). Glenroy Syed APRN.CNP [facility] General Neurology [address] [place] [address] Appointment: [phone] In regards to blood work, testing, and radiology reports these are released automatically to the patients. We do not comment on most testing on [employer] in a message or commentary unless there [...] your PCP/referring physician documented in this encounter [facility] 03-16-2022 Note EXAM: CHEST 2 VIEWS [...] authenticated by: YELENACARMEL ANDREW Date: 2022-03-16 18:13 [facility] 12-30-2021 Note The [place], [place] NAME: KAILA VASQUEZ DATE OF : MEDICAL REC#: [id number] TRANSIT COACH OPERATOR: 160[address] [facility], TRANSADMIT DATE: 12/30/2021 09:02:00 VESSEL ORDINARY SEAMAN DATE: 12/30/2021 21:00 DICTATING PHYSICIAN: PAMELLA SANABRIA [...] DR PAMELLA SANABRIA . 01/06/2022 08:31:00 [facility] [place] Evaluation + Plan note No data available for this section General Surgery [place] Evaluation note Diagnosis Dizziness- Primary Dizziness and giddiness Migraine aura without headache Migraine with aura, without mention of intractable migraine without mention of status migrainosus Palpitations Chronic fatigue Other malaise and fatigue Vision changes Unspecified visual disturbance Disturbance of skin sensation [facility] Dizziness- Primary Dizziness and giddiness Cervicalgia Headaches [facility] Diagnosis Dizziness- Primary Dizziness and giddiness Cervicalgia Headaches [facility] Diagnosis Cervicalgia- Primary Dizziness Dizziness and giddiness Vision changes Unspecified visual disturbance Disturbance of skin sensation [facility] Diagnosis Ocular migraine- Primary Other forms of migraine, without mention of intractable migraine without mention of status migrainosus [facility] Diagnosis KANG (obstructive sleep apnea)- Primary Obstructive sleep apnea (adult) (pediatric) Dizziness Dizziness and giddiness Palpitations Obesity, morbid, BMI 40.0-49.9 (HCC) Morbid obesity SVT (supraventricular tachycardia) ([facility]) Other specified cardiac dysrhythmias Chronic fatigue Other malaise and fatigue Vitamin D deficiency Unspecified vitamin D deficiency [facility] Diagnosis Degeneration of intervertebral disc of cervical region with osteophyte of cervical vertebra- Primary [facility] No data available for this section General Surgery [place] Reason for referral (narrative)* Outpatient Procedure (Routine) - Authorized Specialty Diagnoses / Procedures Referred By Contac t Referred To Contact [facility] Diagnoses Dizziness Palpitations Obesity, morbid, BMI 40.0-49.9 ([facility]) Procedures ECG COMPLETE ECG ROUTINE ECG W/LEAST 12 LDS W/I&R Janell Sy MD [address] [place] [address] Heart [facility] [place] [address] [id number] Referral ID Status Reason Start Date Expiration Date Visits Requested Visits Authorized [id number] Authorized Auto-Generat ed Referral 08/24/2022 08/24/2023 1 1 [facility] Summary Purpose Family History No Family [...] By Contac t Referred To Contact [facility] [place] Diagnoses Degeneration of intervertebral disc of cervical region with osteophyte of cervical vertebra Procedures CONSULT TO [facility] OFFICE/OUTPATIENT [facility] 60-74 MINUTES Glenroy Syed, CORE DROPPER.PORCELAIN ENAMEL SPRAYER [address] [place] [address] Referral ID Status Reason Start Date Expiration Date Visits Requested Visits Authorized [id number] Authorized PCP Requested Referral 10/15/2022 10/15/2023 1 1 Specialty Diagnoses / Procedures Referred By Contac t Referred To Contact Ophthalmology Diagnoses Ocular migraine Procedures CONSULT TO OPHTHALMOLOGY OFFICE/OUTPATIENT [facility] 60-74 MINUTES Len Shea, CORE DROPPER.PORCELAIN ENAMEL SPRAYER [address] [facility] [id number] [place] [address] Josefina Grimse MD [address] [place] [address] Referral ID Status Reason Start Date Expiration Date Visits Requested Visits Authorized [id number] Authorized PCP Requested Referral 08/20/2022 08/20/2023 1 1 Specialty Diagnoses / Procedures Referred By Contac t Referred To Contact Cardiology Diagnoses Dizziness Palpitations Procedures CONSULT TO CARDIOLOGY OFFICE/OUTPATIENT [facility] 60-74 MINUTES Glenroy Syed, ELISEO.PORCELAIN ENAMEL SPRAYER [address] [place] [address] Referral ID Status Reason Start Date Expiration Date Visits Requested Visits Authorized [id number] Authorized PCP Requested Referral 2 07/07/2023 1 1 Specialty Diagnoses / Procedures Referred By Contac t Referred To Contact MR IMAGING Diagnoses Dizziness Vision changes Procedures MRI BRAIN WO/W IVCON MRI BRAIN BRAIN STEM W/O W/CONTRAST MATERIAL Glenroy Syed APRN.PORCELAIN ENAMEL SPRAYER [id number] [place], [place] [id number] Mr Imaging Referral ID Status Reason Start Date Expiration Date Visits Requested Visits Authorized [id number] Authorized Auto-Generat ed Referral 2 08/21/2022 1 1 Specialty Diagnoses / Procedures Referred By Contac t Referred To Contact Ophthalmology Diagnoses Vision changes Procedures CONSULT TO OPHTHALMOLOGY OFFICE/OUTPATIENT [facility] 60-74 MINUTES Glenroy Syed, CORE DROPPER.PORCELAIN ENAMEL SPRAYER [address] [place] [address] Josefina Grimes MD [address] [id number] Referral ID Status Reason Start Date Expiration Date Visits Requested Visits Authorized [id number] Authorized PCP Requested Referral 2 07/07/2023 1 1 Specialty Diagnoses / Procedures Referred By Contac t Referred To Contact [facility] Diagnoses Palpitations Procedures ECHO ECHO TTHRC R-T 2D W/WOM-MODE COMPL SPEC&COLR D Glenroy Syed, ELISEO.PORCELAIN ENAMEL SPRAYER [address] [id number] [facility] [place] [address] [place] [address] Referral ID Status Reason Start Date Expiration Date Visits Requested Visits Authorized [id number] Authorized Auto-Generat ed Referral 2 07/07/2023 1 1 Additional Source Comments INFORMATION SOURCE (unrecogn ized section and content) DATE CREATED AUTHOR 11/24/2021 [facility] DATE CREATED AUTHOR AUTHOR'S ORGANIZ ATION 07/20/2022 [facility] DATE CREATED AUTHOR AUTHOR'S ORGANIZ ATION 09/06/2022 [facility] DATE CREATED AUTHOR AUTHOR'S ORGANIZ ATION 10/16/2022 [facility] DATE CREATED AUTHOR AUTHOR'S ORGANIZ ATION 10/26/2023 [facility] DATE CREATED AUTHOR AUTHOR'S ORGANIZ ATION 01/04/2024 [facility] DATE CREATED AUTHOR AUTHOR'S ORGANIZ ATION 03/09/2024 [facility] Source Comments (unrecognize d section and content) In the event this informatio n is protected by the Federal Confidentiality of Alcohol and Drug Abuse Patient Records regulations: The Federal rules restrict any use of the information to criminally investigate or prosecute any alcohol or drug abuse patient.[facility] the event this information is protected by the Federal Confidentiality of Alcohol and Drug Abuse Patient Records regulations: The Federal rules restrict any use of the information to criminally investigate or prosecute any alcohol or drug abuse patient.[facility] the event this information is protected by the Federal Confidentiality of Alcohol and Drug Abuse Patient Records regulations: The Federal rules restrict any use of the information to criminally investigate or prosecute any alcohol or drug abuse patient.[facility] the event this information is protected by the Federal Confidentiality of Alcohol and Drug Abuse Patient Records regulations: The Federal rules restrict any use of the information to criminally investigate or prosecute any alcohol or drug abuse patient.[facility] Hospital[facility] the event this information is protected by the Federal Confidentiality of Alcohol and Drug Abuse Patient Records regulations: The Federal rules restrict any use of the information to criminally investigate or prosecute any alcohol or drug abuse patient.[facility] the event this information is protected by the Federal Confidentiality of Alcohol and Drug Abuse Patient Records regulations: The Federal rules restrict any use of the information to criminally investigate or prosecute any alcohol or drug abuse patient.[facility] Hospital[facility] the event this information is protected by the Federal Confidentiality of Alcohol and Drug Abuse Patient Records regulations: The Federal rules restrict any use of the information to criminally investigate or prosecute any alcohol or drug abuse patient.[facility] Hospital[facility] the event this information is protected by the Federal Confidentiality of Alcohol and Drug Abuse Patient Records regulations: The Federal rules restrict any use of the information to criminally investigate or prosecute any alcohol or drug abuse patient.[facility] Hospital[facility] the event this information is protected by the Federal Confidentiality of Alcohol and Drug Abuse Patient Records regulations: The Federal rules restrict any use of the information to criminally investigate or prosecute any alcohol or drug abuse patient.[facility] Hospital[facility] the event this information is protected by the Federal Confidentiality of Alcohol and Drug Abuse Patient Records regulations: The Federal rules restrict any use of the information to criminally investigate or prosecute any alcohol or drug abuse patient.[facility] Reason for Visit (unrecogniz ed section [...] NEW RS PT VESTIBULAR DIZZY Glenroy Syed, CORE DROPPER.PORCELAIN ENAMEL SPRAYER [address] [place] [address] Carmen Johnson, PT [address] [place] [address] Referral ID Status Reason Start Date Expiration Date Visits Re quested Visits Authorized [id number] Closed 08/08/2021 08/07/2022 30 30 Reason Comments Physical Therapy Specialty Diagnoses / Procedures Referred By Contac t Referred To Contact PHYSICAL THERAPY Diagnoses Dizziness Procedures Physical Therapy Glenroy Syed, CORE DROPPER.PORCELAIN ENAMEL SPRAYER [id number] [place] [address] [facility] [place] [facility] [address] [place] [address] Referral ID Status Reason Start Date Expiration Date V isits Requested Visits Authorized [id number] Pending Review 08/12/2022 11/10/2022 1 1 Reason Comments Establish Care Palpitations Dizziness Specialty Diagnoses / Procedures Referred By Contac t Referred To Contact Cardiology Diagnoses Dizziness Palpitations Procedures CONSULT TO CARDIOLOGY OFFICE/OUTPATIENT NEW HIGH MDM 60-74 MINUTES Glenroy Syed, CORE DROPPER.PORCELAIN ENAMEL SPRAYER [id number] [place] [address] Referral ID Status Reason Start Date Expiration Date V isits Requested Visits Authorized [id number] Closed PCP Requested Referral 07/07/2022 07/07/2023 1 1 Reason Comments Radiology MRI Care Teams (unrecognized sec tion and content) Network Cable Installer Relationship Specialty Start Date End Date Mert Lama MD [address] [place] [address] Referring Family Medicine 06/10/22 Network Cable Installer Relationship Specialty Start Date End Date Mert Lama MD [address] [place] [address] Referring Family Medicine 06/10/22 Network Cable Installer Relationship Specialty Start Date End Date Mert Lama MD [address] [place] [address] Referring Family Medicine 06/10/22 Network Cable Installer Relationship Specialty Start Date End Date Mert Lama MD [address] [place] [address] Referring Family Medicine 06/10/22 Network Cable Installer Relationship Specialty Start Date End Date Mert Lama MD [address] [place] [address] Referring Family Medicine 06/10/22 Network Cable Installer Relationship Specialty Start Date End Date Mert Lama MD [address] [place] [address] Referring Family Medicine 06/10/22 Network Cable Installer Relationship Specialty Start Date End Date Mert Lama MD [address] [place] [address] Referring Family Medicine 06/10/22 Network Cable Installer Relationship Specialty Start Date End Date Mert Lama MD [address] [place] [address] Referring Family Medicine 06/10/22 FOR RECORDS PERTAINING [...] BE BASED ON THE PRIMARY CLINICAL RECORDS. [facility]. provides no warranty or guarantee of the accuracy or completeness of information in this document.
--- NOTE | 2024-04-26 10:47 | P.CN_ITS ---
Consult Note: HPI Data of Consult Patient: known to practice within the last 3 years Requesting Physician: Deepika Alicia NP Primary Care Provider: LEON WILSON Consult Narrative Reason for consult: f/u Narrative: Jeanette Vasquez a pleasant 43 year old female presents for evaluation and management of chronic bilateral low back pain. Chronic worsening low back pain over the last 20 years, has failed PT/water therapy and traction greater than 6 weeks. PRN tylenol and ibuprofen OTC providing mild relief without benefit. moderate relief of myofascial pain from tizanidine. Recently underwent right and left L4/5 L5/S1 facet joint RFA with 70-80% improvement ongoing. continues to have mild to moderate low back/SIJ pain throughout the night and early mornings, improved with medicaitons and heat. cc:: CC: Deepika Alicia NP Review of Systems ROS Status of ROS 10 or more systems reviewed and unremark able except as noted in history and below Musculoskeletal Reports: joint pain PFSH PFSH Medical History (Updated 04/26/24 @ 10:48 by Deepika Alicia NP) Arthritis ?M19.90 - Unspecified osteoarthritis, unspecified site (ICD-10) Anemia ?D64.9 - Anemia, unspecified (ICD-10) Acid reflux ?K21.9 - Gastro-esophageal reflux disease without esophagitis (ICD-10) Kidney stone ?N20.0 - Calculus of kidney (ICD-10) Irregular heart beat ?I49.9 - Cardiac arrhythmia, unspecified (ICD-10) Surgical History History of cardiac radiofrequency ablation ?Z98.890 - Other specified postprocedural states (ICD-10) History of ankle surgery ?Z98.890 - Other specified postprocedural states (ICD-10) History of hysterectomy ?Z90.710 - Acquired absence of both cervix and uterus (ICD-10) Hx of cholecystectomy ?Z90.49 - Acquired absence of other specified parts of digestive tract (ICD- 10) Meds Home Medications and Allergies Home Medications ?Medication ?Instructions ?Recorded ?Confirmed ?Type metoprolol tartrate 50 mg tablet 50 mg PO BID 12/30/23 03/27/24 History tizanidine 4 mg capsule (Zanaflex) 4 mg PO Q8H PRN muscle spasticity 12/30/23 03/27/24 Rx #20 caps Allergies Allergy/AdvReac Type Severity Reaction Status Date / Time No Known Drug Allergies Allergy Verified 03/27/24 07:03 Exam Constitutional Documenting provider has reviewed patient's vital signs: yes Common normals: no apparent distress, oriented x3, healthy appearing, alert and well nourished General appearance: cooperative HENMT Common normals: normocephalic, hearing grossly normal bilaterally and moist oral mucous membranes Head and scalp: normocephalic Eye Common normals: PERRL Pupil: PERRL Neck & C-Spine Common normals: full ROM General: normal visual inspection Chest Common normals: inspection of chest normal Respiratory Common normals: normal respiratory effort, no retractions and no use of accessory muscles Back & Pelvis Lumbar spine/lower back: normal to inspection, lumbar ROM normal and straight leg raise negative bilaterally Sacroiliac joints: SI joint(s) abnormal Other: bilateral mildly positive chanel(patricks), gaenslens, thigh thrust, compression test tenderness over L2-3 no radiculopathy on exam, strength 5/5 in BLE Extremity Common normals: normal to inspection and full ROM Neuro Common normals: oriented x3, CN's II-XII intact bilaterally, moves all extremities, no focal motor deficits, no sensory deficits noted and deep tendon reflexes 2+ bilaterally Sensorium/orientation: alert Motor exam: strength 5/5 throughout and no movement abnormalities noted Psych Common normals: mental status grossly normal, thought process normal, cooperative, affect normal, speech normal and activity/motor behavior normal Speech: normal speech Thought process: normal thought process Results Additional Findings Additional findings: If on a controlled substance or opioids, I have checked an [place] report on this patient and there are no aberrancies noted in the prescribing history.??If on a controlled substance or opioid a drug screen was completed and reviewed within the last year, and if there has not been a drug screen completed we ordered one today to monitor higher risk, state monitored pain medication use. As part of providing excellent, safe, comprehensive care, the following was completed at our patient's visit: 1. A medication reconciliation and review to ensure accurate knowledge of current/active medications, including asking our patients to inform us about any pkxa-cgz-mvrlmsn medications or herbal remedies/nutritional supplements/alternative remedies. 2. A review to specifically ensure our patients have had annual screening for screening for depression, screening for tobacco use, and screening for unhealthy alcohol use. For concerning screenings had a discussion with the patient, provided patient education, and recommended follow-up with primary care provider when appropriate. If patient noted with a risk of falling, they received education on strength, gait, and balance training to prevent future risk of falling. Assessment and Plan Assessment and Plan (1) Sacroiliitis: (2) Lumbar spondylosis: (3) Myofascial pain: Plan continue current medications f/u 6 months, sooner if needed. defer SIJ injections at this time
== END 2024-04-26 10:24 | disposition home or self-care (01) ==
LOC: PM 10:24
PROVIDERS: PCP Family Medicine; Visit Provider Nurse Practitioner
DX: M46.1 Sacroiliitis, not elsewhere classified (principal); M47.816 Spondylosis without myelopathy or radiculopathy, lumbar region; M79.18 Myalgia, other site
CPT/HCPCS: G0463

== ENCOUNTER 2024-06-04 11:42 | Outpatient (OUT) | payer BC, SELFPAY ==
--- NOTE | 2024-06-04 12:40 | PM.CN ---
Consult Note: HPI Data of Consult Patient: known to practice within the last 3 years Consult date: 06/04/24 Requesting Physician: Ari Sellers MD Primary Care Provider: LEON WILSON Consult Narrative Reason for consult: low back pain Narrative: 43yof who presents for assessment. notes low back pain that is higher than the pain she had prior to her ablation. states previous lumbar TPIs helped significantly. has continued in a series of provider directed home exercises for >6 weeks, without significant benefit. uses zanaflex as needed. denies adverse med side effects. cc:: CC: Ari Sellers MD Review of Systems ROS Status of ROS 10 or more systems reviewed and unremarkable except as noted in history and below [facility] Medical History (Updated 04/26/24 @ 10:48 by Deepika Alicia NP) Arthritis ?M19.90 - Unspecified osteoarthritis, unspecified site (ICD-10) Anemia ?D64.9 - Anemia, unspecified (ICD-10) Acid reflux ?K21.9 - Gastro-esophageal reflux disease without esophagitis (ICD-10) Kidney stone ?N20.0 - Calculus of kidney (ICD-10) Irregular heart beat ?I49.9 - Cardiac arrhythmia, unspecified (ICD-10) Surgical History History of cardiac radiofrequency ablation ?Z98.890 - Other specified postprocedural states (ICD-10) History of ankle surgery ?Z98.890 - Other specified postprocedural states (ICD-10) History of hysterectomy ?Z90.710 - Acquired absence of both cervix and uterus (ICD-10) Hx of cholecystectomy ?Z90.49 - Acquired absence of other specified parts of digestive tract (ICD-10) Meds Home Medications and Allergies Home Medications ?Medication ?Instructions ?Recorded ?Confirmed ?Type metoprolol tartrate 50 mg tablet 50 mg PO BID 12/30/23 03/27/24 History tizanidine 4 mg capsule (Zanaflex) 4 mg PO Q8H PRN muscle spasticity 12/30/23 03/27/24 Rx #20 caps Allergies Allergy/AdvReac Type Severity Reaction Status Date / Time No Known Drug Allergies Allergy Verified 03/27/24 07:03 Exam Narrative Exam Narrative: Psych-alert and oriented x 3. Attentive and appropriate, constitutionally normal, displays normal mood and affect per situation.? There are no obvious deficits in memory, reasoning, or intellect.? Skin-no obvious rashes, bruising, erythema noted to the patient's area of pain. Extremities- extremities are warm with minimal edema and palpable pulses. Lumbar- tenderness to palpation noted in the lumbar spine and paraspinal musculature.?Multiple trigger points expressed on palpation. Pain is elicited with extension, and lateral rotation of the lumbar spine. Range of motion is slightly diminished with these motions due to pain. Facet loading maneuvers are positive bilaterally and do appear to be concordant with the patient's normal complaints of pain.? Coordination remains intact.? Gait remains non-antalgic. Assessment and Plan Assessment and Plan (1) Lumbar spondylosis: (2) Myofascial pain: Plan 43yof who presents for assessment. failed conservative measures, as noted. imaging reviewed, which shows lumbar spondylosis higher up in the lumbar spine. at this point, will trial paralumbar trigger point injections. she is in agreement. will also have her undergo bilateral L1-2, L2-3 medial branch blocks under fluoroscopic guidance with the intention of proceeding to radiofrequency ablation. she is in agreement. meds reviewed, no changes. follow up after procedure. Procedure: Bilateral paralumbar trigger point injections Medications: Bupivacaine 0.25% 8cc, kenalog 80mg I explained the details of the procedure to the patient including the risks, benefits, and alternatives.? We had an informed discussion.? The patient verbalized understanding and signed the consent form.? All questions were answered appropriately.? A time-out was performed.? After obtaining a comfortable seated position, the skin overlying the lumbar spine was prepped with alcohol 3 times. The needle was inserted in a sterile manner through the skin towards the palpated trigger point areas. The contents of the syringe were gently injected without any resistance 1cc at a time into the appropriate trigger point.? The needle was removed and pressure was applied at the injection site to decrease the incidence of ecchymosis and hematoma formation.? A sterile bandage was applied. The patient tolerated the procedure well.
== END 2024-06-04 11:43 | disposition home or self-care (01) ==
LOC: PM 11:43
PROVIDERS: PCP Family Medicine; Visit Provider Anesthesiology
DX: M47.816 Spondylosis without myelopathy or radiculopathy, lumbar region (principal); M79.18 Myalgia, other site
CPT/HCPCS: 20553; J0665; J3301

== ENCOUNTER 2024-06-12 06:40 | Day surgery (SDC) | payer BC, SELFPAY ==
--- OUTSIDE RECORDS SUMMARY | 2024-06-12 06:43 | XMS_ITS | CCD ---
Author Organization [facility] Care Team Providers Care Drapery Head Former Name Role Phone MERT LAMA Referring Unavailable PAMELLA BRENNAN Attending Unavailable MIKA, PAMELLA Ang Surgeon Unavailable PAMELLA BRENNAN Admitting Unavailable MT Procedure Practitioner Unavailab MERT Caban Primary Care [...] VISHAL Referring Unavailable MANUEL, JONNY Referring Unavailable VISHAL ROGERS Referring Unavailable Marlo PIZARRO, Ari Fuller Attending Unavailable Medications Current Medications Medication Drug [...] (1 source) Nonsteroidal Anti-inflammatory Drug Start: 10-10-19 take 1 mg by mouth once daily [...] Comment on above: Take 1 capsule by [facility] once daily. 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; Translations: [OTH STAMP CLASSIFIER CURRENT DRUG THERAPY] Onset: 09-06-2022 Episodic Other [...] Range Facility ED Note-Physicianon 01-03-20 ED Note-Physician [id number]#1.00 TIFF [facility] RAD - MRI Reporton RAD - MRI Report [id number]#1.0 0TIFF [facility] RAD - MRI Report [id number]#1.0 0TIFF [facility] RAD - MRI Report [id number]#1.00 TIFF [facility] RAD - MRI Report [id number]#1.00 TIFF [facility] RAD - MRI Report [id number]#1.0 0TIFF [facility] RAD - MRI Report [id number]#1.00 TIFF [facility] Physician Orderon 12-22-2023 Physician Order [id number]#1.00 TIFF [facility] Provider Letteron 12-21-2023 Provider Letter December 21, 2023 KAILA VASQUEZ [address] [place] [address] : 1980 To Whom It May Concern, Please excuse above patient from work. Date of Illness: From: 12/19/2023 To: 12/21/2023 May Return to Work On: 12/22/2023 Sincerely, HARPREET Stewart [address] [address] Normal [facility] Lab Reportson 12-20-2023 Lab Reports [id number]#1.00 TIFF Normal [facility] Physician Orderon 12-20-2023 Physician Order [id number]#1.00 TIFF Normal [facility] RAD - MISCon 12-20-2023 RAD - MISC [id number]#1.00 TIFF Normal [facility] Ambulatory Visit Summaryon 0 12-19-2023 [...] sciatica BMI 40.0-44.9, adult Non-smoker Pickup at [facility]/pharmacy #6177 New meloxicam (meloxicam 15 mg Tab) 1 Tablets By Mouth Every day Low back pain with sciatica BMI 40.0-44.9, adult Non-smoker Pickup at [facility]/pharmacy #6177 New methylPREDNISolone (Medrol 4 mg Tab) 1 Packets By Mouth As Directed Low back pain with sciatica BMI 40.0-44.9, adult Non-smoker Duration: 6 Days as directed on package labeling Pickup at [facility]/pharmacy #6177 Unchanged metoprolol (Metoprolol tartrate 50 mg Tab) 1 Tablets By Mouth 2 times a day [id number] [address], [place] [phone] Medications and Immunizations Administered Given ketorolac 30 [...] for choosing us for your care. Normal [facility] Consenton 12-19-2023 Consent [id number]#1.00 TIFF Normal [facility] Office/Clini c Noteon 12-19-2023 Family [...] Bedtime for spasm, 20 cap(s), Refill(s) 0, [facility]/pharmacy #6177, 165.1, cm, 12/19/23 13:17:00 EDT, Height/Length Dosing, 114.6, kg, 12/19/23 13:17:00 EDT, Weight Dosing ketorolac, 30 mg = 1 mL, Injection, IntraMuscular, Once, Stop date 12/19/23 13:35:00 EDT, Routine, Start date 12/19/23 13:35:00 EDT, 12/19/23 13:35:00 EDT meloxicam, 15 mg = 1 tab(s), Oral, Daily, # 30 tab(s), Refills(s) 0, Pharmacy: [facility]/pharmacy #6177, 165.1, cm, 12/19/23 13:17:00 EDT, Height/Length Dosing, 114.6, kg, 12/19/23 13:17:00 EDT, Weight Dosing methylPREDNISolone, = 1 packet(s), Oral, As Directed, as directed on package labeling, X 6 day(s), # 21 tab(s), Refills(s) 0, Pharmacy: [facility]/pharmacy #6177, 165.1, cm, 12/19/23 13:17:00 EDT, Height/Length Dosing, 114.6, kg, 12/19/23 13:17:00 EDT, Weight Dosing 2. BMI 40.0-44.9, adult (Z68.41: Body mass index [BMI] 40.0-44.9, adult) BMI education complete Ordered: cyclobenzaprine, 15 mg, 1 cap(s), Oral, Bedtime for spasm, 20 cap(s), Refill(s) 0, [facility]/pharmacy #6177, 165.1, cm, 12/19/23 13:17:00 EDT, Height/Length Dosing, 114.6, kg, 12/19/23 13:17:00 EDT, Weight Dosing ketorolac, 30 mg = 1 mL, Injection, IntraMuscular, Once, Stop date 12/19/23 13:35:00 EDT, Routine, Start date 12/19/23 13:35:00 EDT, 12/19/23 13:35:00 EDT meloxicam, 15 mg = 1 tab(s), Oral, Daily, # 30 tab(s), Refills(s) 0, Pharmacy: [facility]/pharmacy #6177, 165.1, cm, 12/19/23 13:17:00 EDT, Height/Length Dosing, 114.6, kg, 12/19/23 13:17:00 EDT, Weight Dosing methylPREDNISolone, = 1 packet(s), Oral, As Directed, as directed on package labeling, X 6 day(s), # 21 tab(s), Refills(s) 0, Pharmacy: [facility]/pharmacy #6177, 165.1, cm, 12/19/23 13:17:00 EDT, Height/Length Dosing, 114.6, kg, 12/19/23 13:17:00 EDT, Weight Dosing 3. Non-smoker (Z78.9: Other specified health status) continue not smoking Ordered: cyclobenzaprine, 15 mg, 1 cap(s), Oral, Bedtime for spasm, 20 cap(s), Refill(s) 0, [facility]/pharmacy #6177, 165.1, cm, 12/19/23 13:17:00 EDT, Height/Length Dosing, 114.6, kg, 12/19/23 13:17:00 EDT, Weight Dosing ketorolac, 30 mg = 1 mL, Injection, IntraMuscular, Once, Stop date 12/19/23:35:00 EDT, Routine, Start date 12/19/23 13:35:00 EDT, 12/19/23 13:35:00 EDT meloxicam, 15 mg = 1 tab(s), Oral, Daily, # 30 tab(s), Refills(s) 0, Pharmacy: [facility]/pharmacy #6177, 165.1, cm, 12/19/23 13:17:00 EDT, Height/Length Dosing, 114.6, kg, 12/19/23 13:17:00 EDT, Weight Dosing methylPREDNISolone, = 1 packet(s), Oral, As Directed, as directed on package labeling, X 6 day(s), # 21 tab(s), Refills(s) 0, Pharmacy: [facility]/pharmacy #6177, 165.1, cm, 12/19/23 13:17:00 EDT, Height/Length Dosing, 114.6, kg, 12/19/23 13:17:00 EDT, Weight Dosing Follow-up No qualifying data available Problem List/Past Medical History Ongoing Anemia Anxiety (more content not included)... [facility] Comment on above: Result Comment: Elec tronically Signed By: Cristiane Brasher\.br\Date and Time Signed: 12/19/23 13:59 EDT Physician Orderon 12-19-2023 Physician Order [id number]#1.00 TIFF [facility] Consultation Noteon 02-15-20 Consultation Note [id number]#1.0 0CD:127 [facility] Consultation Noteon 02-05-20 Consultation Note [id number]#1.0 0CD:127 [facility] Comment on above: Other Comment: INCOM PLETE FAX.NDW Formson 02-02-2023 Forms [id number]#1.0 0CD:127 [facility] Consultation Noteon 01-29-20 Consultation Note [id number]#1.00 CD:127 [facility] Cardiovascular Reporton 01-06 Cardiovascular Report [id number]#1.0 0CD:127 [facility] MRI BRAIN WO/W IVCONon 10-14 MRI [...] cord. No mass or pathologic intradural enhancement. Wire Sawyer: PSCB Transcribe Date/Time: Oct 14 2022 8:43P Dictated by : UNIQUE ANDERSON MD This examination was interpreted and the report reviewed and electronically signed by: UNIQUE ANDERSON MD on Oct 14 2022 8:51PM EST [id number] Normal [facility] MRI CERVICAL SPINE WO/W IVCO Non [...] cord. No mass or pathologic intradural enhancement. Wire [facility] Transcribe Date/Time: Oct 14 2022 8:43P Dictated by : UNIQUE ANDERSON MD This examination was interpreted and the report reviewed and electronically signed by: UNIQUE ANDERSON MD on Oct 14 2022 8:51PM EST [id number] Normal [facility] CBC AUTO DIFFon 09-02-2022 BASO # 0.1 103/ul Normal 0.0-0.1 [facility] Comment on above: Performed By: #### C MP, TSH, HSTROPN #### [facility] [address] [address] [address] Christos Fallon Basophils/100 WBC (Bld) 0.5 % Normal 0.2-2.0 [facility] Comment on above: Performed By: #### C MP, TSH, HSTROPN #### [facility] [address] [address] [address] Christos Fallon EO # 0.2 103/ul Normal 0.0-0.7 [facility] Comment on above: Performed By: #### C MP, TSH, HSTROPN #### [facility] [address] [address] [address] Christos Fallon Eosinophils/100 WBC (Bld) 2.3 % Normal 0.9-7.0 [facility] Comment on above: Performed By: #### C MP, TSH, HSTROPN #### [facility] [address] [place] [address] Dr. Christos Fallon Erythrocyte distribution width (RBC) [Ratio] 13.0 % Normal 11.0-15.0 [facility] Comment on above: Performed By: #### C MP, TSH, HSTROPN #### [facility] [address] [place] [address] Dr. Christos Fallon Hematocrit (Bld) [Volume fraction] 43.0 % Normal 36.0-48.0 [facility] Comment on above: Performed By: #### C MP, TSH, HSTROPN #### [facility] [address] [place] [address] Dr. Christos Fallon Hemoglobin (Bld) [Mass/Vol] 13.9 g/dL Normal 12.0-16.0 [facility] Comment on above: Performed By: #### C MP, TSH, HSTROPN #### [facility] [address] [place] [address] Dr. Christos Fallon IG # 0.03 10e3/ul Normal 0.00-0.03 [facility] Comment on above: Performed By: #### C MP, TSH, HSTROPN #### [facility] [address] [place] [address] Dr. Christos Fallon IG % 0.3 % Normal 0.0-0.5 [facility] Comment on above: Performed By: #### C MP, TSH, HSTROPN #### [facility] [address] [place] [address] Dr. Christos Fallon LYMPH # 2.8 103/ul Normal 1.2-3.8 [facility] Comment on above: Performed By: #### C MP, TSH, HSTROPN #### [facility] [address] [place] [address] Dr. Christos Fallon Lymphocytes/100 WBC (Bld) 29.6 % Normal 20.5-60.0 [facility] Comment on above: Performed By: #### C MP, TSH, HSTROPN #### [facility] [address] [place] [address] Dr. Christos Fallon MANUAL DIFF REQ NO Normal [facility] Comment on above: Performed By: #### C MP, TSH, HSTROPN #### [facility] [address] [place] [address] Dr. Christos Fallon MCH (RBC) [Entitic mass] 34.8 pg Critically high 26.7-34.0 [facility] Comment on above: Performed By: #### C MP, TSH, HSTROPN #### [facility] [address] [place] [address] Dr. Christos Fallon MCHC (RBC) [Mass/Vol] 32.3 g/dL Normal 29.9-35.2 [facility] Comment on above: Performed By: #### C MP, TSH, HSTROPN #### [facility] [address] [place] [address] Dr. Christos Fallon MCV (RBC) [Entitic vol] 107.5 fL Critically high 81.0-99.0 [facility] Comment on above: Performed By: #### C MP, TSH, HSTROPN #### [facility] [address] [place] [address] Dr. Christos Fallon MONO # 0.7 103/ul Normal 0.3-0.8 [facility] Comment on above: Performed By: #### C MP, TSH, HSTROPN #### [facility] [address] [place] [address] Dr. Christos Fallon Monocytes/100 WBC (Bld) 7.7 % Normal 1.7-12.0 [facility] Comment on above: Performed By: #### C MP, TSH, HSTROPN #### [facility] [address] [place] [address] Dr. Christos Fallon NEUT # 5.7 103/ul Normal 1.4-6.5 [facility] Comment on above: Performed By: #### C MP, TSH, HSTROPN #### [facility] [address] [place] [address] Dr. Christos Fallon Neutrophils/100 WBC (Bld) 59.6 % Normal 43.0-75.0 [facility] Comment on above: Performed By: #### C MP, TSH, HSTROPN #### [facility] [address] [place] [address] Dr. Christos Fallon Platelet mean volume (Bld) [Entitic vol] 9.9 fL Normal 9.5-13.5 [facility] Comment on above: Performed By: #### C MP, TSH, HSTROPN #### [facility] [address] [place] [address] Dr. Christos Fallon PLT 309 103/ul Normal 150-450 [facility] Comment on above: Performed By: #### C MP, TSH, HSTROPN #### [facility] [address] [place] [address] Dr. Christos Fallon RBC 4.00 106/ul Critically low 4.20-5.[address] [facility] Comment on above: Performed By: #### C MP, TSH, HSTROPN #### [facility] [address] [place] [address] Dr. Christos Fallon WBC 9.6 103/ul Normal 4.0-11.0 [facility] Comment on above: Performed By: #### C MP, TSH, HSTROPN #### [facility] [address] [place] [address] Dr. Christos Fallon D-DIMERon 09-02-2022 D-DIMER 0.28 mg/L FEU Normal <=0.59 [facility] Comment on above: Performed By: #### C MP, TSH, HSTROPN #### [facility] [address] [place] [address] Dr. Christos Fallon D-DIMER COMMENTS SEE BELOW Normal [facility] Comment on above: Result Comment: Incr [...] #### C MP, TSH, HSTROPN #### [facility] [address] [place] [address] Dr. Christos Fallon PROF 14(COMP METB)on 023 Albumin [Mass/Vol] 3.8 g/dL Normal 3.4-5.0 [facility] Comment on above: Performed By: #### C MP, TSH, HSTROPN #### [facility] [address] [place] [address] Dr. Christos Fallon Albumin/Globulin [Mass ratio] 1.2 {ratio} Normal [facility] Comment on above: Performed By: #### C MP, TSH, HSTROPN #### [facility] [address] [place] [address] Dr. Christos Fallon ALP [Catalytic activity/Vol] 85 U/L Normal 46-116 [facility] Comment on above: Performed By: #### C MP, TSH, HSTROPN #### [facility] [address] [place] [address] Dr. Christos Fallon ALT [Catalytic activity/Vol] 39 U/L Normal 14-59 [facility] Comment on above: Performed By: #### C MP, TSH, HSTROPN #### [facility] [address] [place] [address] Dr. Christos Fallon Anion gap [Moles/Vol] 16.3 mmol/L Normal [facility] Comment on above: Performed By: #### C MP, TSH, HSTROPN #### [facility] [address] [place] [address] Dr. Christos Fallon AST [Catalytic activity/Vol] 19 U/L Normal 15-37 [facility] Comment on above: Performed By: #### C MP, TSH, HSTROPN #### [facility] [address] [address] [address] Christos Fallon Bilirubin [Mass/Vol] 0.4 mg/dL Normal 0.2-1.0 [facility] Comment on above: Performed By: #### C MP, TSH, HSTROPN #### [facility] [address] [place] [address] Dr. Christos Fallon Calcium [Mass/Vol] 9.2 mg/dL Normal 8.5-10.1 [facility] Comment on above: Performed By: #### C MP, TSH, HSTROPN #### [facility] [address] [place] [address] Dr. Christos Fallon Chloride [Moles/Vol] 101 mmol/L Normal 98-107 [facility] Comment on above: Performed By: #### C MP, TSH, HSTROPN #### [facility] [address] [place] [address] Dr. Christos Fallon CO2 [Moles/Vol] 24.9 mmol/L Normal 21.0-32.0 [facility] Comment on above: Performed By: #### C MP, TSH, HSTROPN #### [facility] [address] [place] [address] Dr. Christos Fallon Creatinine [Mass/Vol] 0.83 mg/dL Normal 0.55-1.02 [facility] Comment on above: Performed By: #### C MP, TSH, HSTROPN #### [facility] [address] [place] [address] Dr. Christos Fallon EGFR-AF PUERTO RICAN >60 Normal >=60 [facility] Comment on above: Performed By: #### C MP, TSH, HSTROPN #### [facility] [address] [place] [address] Dr. Christos Fallon EGFR-NON AF PUERTO RICAN >60 Normal >=60 [facility] Comment on above: Performed By: #### C MP, TSH, HSTROPN #### [facility] [address] [place] [address] Dr. Christos Fallon Globulin (S) [Mass/Vol] 3.2 g/dL Normal [facility] Comment on above: Performed By: #### C MP, TSH, HSTROPN #### [facility] [address] [place] [address] Dr. Christos Fallon Glucose [Mass/Vol] 142 mg/dL Critically high 74-106 T [facility] Comment on above: Performed By: #### C MP, TSH, HSTROPN #### [facility] [address] [place] [address] Dr. Christos Fallon Potassium [Moles/Vol] 3.2 mmol/L Critically low 3.5-5.1 [facility] Comment on above: Performed By: #### C MP, TSH, HSTROPN #### [facility] [address] [place] [address] Dr. Christos Fallon Protein [Mass/Vol] 7.0 g/dL Normal 6.4-8.2 [facility] Comment on above: Performed By: #### C MP, TSH, HSTROPN #### [facility] [address] [place] [address] Dr. Christos Fallon Sodium [Moles/Vol] 139 mmol/L Normal 136-145 [facility] Comment on above: Performed By: #### C MP, TSH, HSTROPN #### [facility] [address] [place] [address] Dr. Christos Fallon Urea nitrogen [Mass/Vol] 10.0 mg/dL Normal 7.0-18.0 [facility] Comment on above: Performed By: #### C MP, TSH, HSTROPN #### [facility] [address] [place] [address] Dr. Christos Fallon Urea nitrogen/Creatinine [Mass ratio] 12.0 mg/mg Normal [facility] Comment on above: Performed By: #### C MP, TSH, HSTROPN #### [facility] [address] [place] [address] Dr. Christos Fallon PROTIMEon 09-02-2022 INR Coag (PPP) [Relative time] {INR} Normal [facility] Comment on above: Performed By: #### C MP, TSH, HSTROPN #### [facility] [address] [address] [address] Christos Fallon INR GUIDELINES SEE BELOW Normal [facility] Comment on above: Result Comment: GUALBERTO RED INR: 2.0 - 3.0 CONDITIONS NOT LISTED BELOW 2.5 - 3.5 FOR PROSTHETIC HEART VALVE REPLACEMENT 2.5 - 3.5 RECURRENT THROMBOSIS Performed By: #### C MP, TSH, HSTROPN #### [facility] [address] [address] [address] Christos Fallon PT Coag (PPP) [Time] 9.7 s Normal 9.0-11.6 [facility] Comment on above: Performed By: #### C MP, TSH, HSTROPN #### [facility] [address] [address] [address] Christos Fallon PTTon 09-02-2022 aPTT Coag (Bld) [Time] 25.9 s Normal 22.3-36.2 [facility] Comment on above: Performed By: #### C MP, TSH, HSTROPN #### [facility] [address] [place] [address] Dr. Christos Fallon TROPONIN, HIGH SENSITIVITYon 09-02-2022 HSTROP <4.0 Normal 4.0-51.3 [facility] Comment on above: Result Comment: CUT- OFF POINTS HAVE BEEN ESTABLISHED BASED ON THE FOURTH UNIVERSAL DEFINITIONS OF MYOCARDIAL INFARCTION. THE UPPER REFERENCE LIMIT (URL) OF TROPONIN, DEFINED THE 99TH PERCENTILE OF cTnI DISTRIBUTION IN A REFERENCE POPULATION, HAS BEEN CONFIRMED THE DECISION THRESHOLD FOR [place] DIAGNOSIS. Performed By: #### C MP, TSH, HSTROPN #### [facility] [address] [place] [address] Dr. Christos Fallon TSHon 09-02-2022 TSH 0.813 uIU/mL Normal 0.358-3.740 [facility] Comment on above: Performed By: #### C MP, TSH, HSTROPN #### [facility] [address] [place] [address] Dr. Christos Fallon XR CHEST 1 Von [...] MON Date: 2022-09-02 15:09 [facility] (CARDLO ) KAILA VASQUEZ Emily ([id number]) 1980 F Date Time Provider Department 08/24/22 2:00 PM JAENLL SY During your visit today, we recorded the following information about you: Pulse Blood pressure Weight Height 88/minute 112/73 112.9 kg 1.626 m Janell Sy MD 08/24/2022 2:17 PM Signed [facility] SECTION OF REGIONAL CARDIOLOGY OUTPATIENT VISIT DATE August 24, 2022 OUTPATIENT VISIT TYPE NEW PRIMARY CARE PHYSICIAN: To use this Smartlink, specify the provider ID whose address you want to display, e.g., .[email or web address][1 (where 1 is the provider ID). A written report of the findings and recommendations will be sent to the requesting provider via shared medical record or via [facility]. Patient is being seen at the request [...] Cardiac work-up includes: Echocardiogram on 05/19/2020 at [facility] showed normal ejection fraction. No [...] ECG COMPLETE 4. Obesity, morbid, BMI 40.0-49.9 ([facility]) E66.01 ECG COMPLETE 5. SVT (supraventricular tachycardia) ([facility]) I47.1 6. Chronic fatigue R53.82 [...] (more content not included)... Normal [facility] ECG COMPLETEon 08-24-2022 ECG COMPLETE Ventricular Rate : 8 4 BPM Atrial Rate : 84 BPM P-R Interval : 166 ms QRS Duration : 92 ms Q-T Interval : 358 ms QTC Calculation(Bazett) : 423 ms Calculated P [place] : 60 degrees Calculated R [place] : 45 degrees Calculated T [place] : 45 degrees NORMAL SINUS RHYTHM INCREASED R/S RATIO IN V1, CONSIDER EARLY TRANSITION OR POSTERIOR INFARCT ABNORMAL ECG Confirmed by MEERA BOYD M.D. ([id number]) on 08/28/2022 3:03:10 PM NAME : KAILA VASQUEZ PID : [id number] : 1980 Gender : Female Race : ORD : [id number] Procedure Date : Aug 24 2022 13:56:02 [...] Acquired by : Jose browning [facility] CNTHERAPYon 08-12-2022 CNTHERAPY OT/PT/Speech Visit (PTAMCF) CHRISTINAKAILA Emily ([id number]) 1980 F Date Time Provider Department 08/12/22 2:45 PM [facility] Date Time Provider Department Center 08/12/2022 2:45 PM [id number][facility] Reason for Visit: Physical Therapy [...] 0.9 % (flush) 10 mL (BD POSIFLUSH) Jose [facility] CNTHERAPYon 08-05-2022 CNTHERAPY OT/PT/Speech Visit (PTAMCF) KAILA VASQUEZ ([id number]) 1980 F Date Time Provider Department 08/05/22 9:15 AM [facility] Date Time Provider Department Center 08/05/2022 9:15 AM [id number], KARA [facility] Reason for Visit: PT Eval [747] Primary [...] 10 mL (BD POSIFLUSH) Normal [facility] Covid-19 PCR ([facility])on 07-09 SARS-CoV-2 (COVID-19) RNA LEROY+probe Ql (Unsp spec) Not detected Normal NOT DETECTED [facility] Comment on above: Result Comment: When [...] for this test is supported by the Car Sales Representative of Health and Human Service's declaration that [...] Performed By: #### C VDAGA #### [facility] [address] [place] [address] Dr. Christos Fallon 25(OH)D3 [facility] 2021 25-hydroxyvitamin D3 [Mass/Vol] 15.8 ng/mL Low 31.0-80.0 [facility] Comment on above: Order Comment: Speckyle hernández Type: BLOOD SPECIMENOrdering Facility: [facility] Address: [address] [address] Result Comment: Clas sification of 25 [place] Vitamin D status: Deficiency/Insufficiency: < or = 30 ng/ml. Sufficiency/Optimal Levels: 31-80 ng/mL Toxicity: > 100 ng/mL. Test performed by chemiluminescent immunoassay. Performed By: #### 1 989-3 ####[facility] LABCLIA [id number] [address] [place] ESEQUIEL BY IFA WITH REFLEXon ESEQUIEL PATTERN Nuclear fine speckled Normal [facility] Comment on above: Order Comment: Bryan hernández Type: BLOOD SPECIMENOrdering Facility: [facility] Address: [address] [address] Performed By: #### 2 9374-6, 92583-2, 63044-6, 08438-5, 97428-6, ANAIFR, 78459-0, 00910-9, 84193-6, 53645-3 ####[facility] LABCLIA [id number] [place] [address] [place] ESEQUIEL TITER 1:160 Normal [facility] Comment on above: Order Comment: Speci men Type: BLOOD SPECIMENOrdering Facility: [facility] Address: [address] [place] [address] Performed By: #### 2 9374-6, 88982-4, 84886-5, 44842-0, 74666-6, ANAIFR, 07039-2, 60934-9, 83887-5, 26077-0 ####[facility] LABCLIA [id number] [place] [address] [place] Nuclear Ab IF (S) [Titer] Positive Abnormal Negative [facility] Comment on above: Order Comment: Davidi betty Type: BLOOD SPECIMENOrdering Facility: [facility] Address: [address] [place] [address] Result Comment: Anti -nuclear antibody test is used as an aid in diagnosis of systemic autoimmune diseases. Where positive and clinically warranted, follow-up using disease-specific testing is recommended. Low positive titers are not uncommon with advanced age, certain chronic infections, and malignancies among others. Test methodology: Indirect fluorescence immunoassay (IFA) using HEp-2 cells. Performed By: #### 2 9374-6, 64222-8, 27578-0, 25817-9, 74960-4, ANAIFR, 42401-0, 65009-0, 96619-7, 63427-8 ####[facility] LABCLIA [id number] [place] [address] [place] Basic metabolic 2000 panelon 07-07-2022 Anion gap [Moles/Vol] 13 mmol/L Normal 9-18 [facility] Comment on above: Order Comment: Speci men Type: BLOOD SPECIMENOrdering Facility: [facility] Address: [address] [place] [address] Performed By: #### 2 4321-2 ####[facility] LABCLIA [id number] [place] [address] [place] Calcium [Mass/Vol] 9.3 mg/dL Normal 8.5-10.2 [facility] Comment on above: Order Comment: Speci men Type: BLOOD SPECIMENOrdering Facility: [facility] Address: [address] [place] [address] Performed By: #### 2 4321-2 ####[facility] LABCLIA [id number] [place] [address] [place] Chloride [Moles/Vol] 102 mmol/L Normal 97-105 [facility] Comment on above: Order Comment: Speci men Type: BLOOD SPECIMENOrdering Facility: [facility] Address: [address] [place] [address] Performed By: #### 2 4321-2 ####[facility] LABCLIA [id number] [place] [address] [place] CO2 [Moles/Vol] 23 mmol/L Normal 22-30 [facility] Comment on above: Order Comment: Speci men Type: BLOOD SPECIMENOrdering Facility: [facility] Address: [address] [place] [address] Performed By: #### 2 4321-2 ####[facility] LABCLIA [id number] [place] [address] [place] Creatinine [Mass/Vol] 0.72 mg/dL Normal 0.58-0.96 [facility] Comment on above: Order Comment: Speci men Type: BLOOD SPECIMENOrdering Facility: [facility] Address: [address] [place] [address] Performed By: #### 2 4321-2 ####[facility] LABCLIA [id number] [place] [address] [place] ESTIMATED GLOMERULAR FILTRATION RATE 109 mL/min/1.73m??? Normal >=60 [facility] Comment on above: Order Comment: Speci men Type: BLOOD SPECIMENOrdering Facility: [facility] Address: [address] [address] Result Comment: Dina mated Glomerular Filtration Rate [...] By: #### 2 4321-2 ####[facility] LABIA [id number] [place] [address] [place] Glucose [Mass/Vol] 98 mg/dL Normal 74-99 [facility] Comment on above: Order Comment: Bryan hernández Type: BLOOD SPECIMENOrdering Facility: [facility] Address: [address] [place] [address] Result Comment: The [place] [employer] Association (ADA) provides guidance for cutoff [...] Standards of Medical Care in Diabetes 2016, [place] [employer]. Diabetes Care. 2016.39(Suppl 1). Performed By: #### 2 4321-2 ####[facility] LABIA [id number] [place] [address] [place] Potassium [Moles/Vol] 4.1 mmol/L Normal 3.7-5.1 [facility] Comment on above: Order Comment: Bryan hernández Type: BLOOD SPECIMENOrdering Facility: [facility] Address: [address] [address] Performed By: #### 2 4321-2 ####[facility]CLIA [id number] [place] [address] [place] Sodium [Moles/Vol] 138 mmol/L Normal 136-144 [facility] Comment on above: Order Comment: Speci men Type: BLOOD SPECIMENOrdering Facility: [facility] Address: [address] [place] [address] Performed By: #### 2 4321-2 ####[facility] LABCLIA [id number] [place] [address] [place] Urea nitrogen [Mass/Vol] 8 mg/dL Normal 7-21 [facility] Comment on above: Order Comment: Speci men Type: BLOOD SPECIMENOrdering Facility: [facility] Address: [address] [place] [address] Performed By: #### 2 4321-2 ####[facility] LABCLIA [id number] [place] [address] [place] Anion gap [Moles/Vol] 13 mmol/L 9 - 18 mmol/L [facility] Calcium [Mass/Vol] 9.3 mg/dL 8.5 - 10. 2 mg/dL [facility] Chloride [Moles/Vol] 102 mmol/L 97 - 10 5 mmol/L [facility] CO2 [Moles/Vol] 23 mmol/L 22 - 30 mmol/L [facility] Creatinine [Mass/Vol] 0.72 mg/dL 0.58 - 0.96 mg/dL [facility] Estimated Glomerular Filtration Rate 109 mL/min/1.73m >=60 mL/min/1.73m [facility] Glucose [Mass/Vol] 98 mg/dL 74 - 99 mg/dL [facility] Potassium [Moles/Vol] 4.1 mmol/L 3.7 - 5.1 mmol/L [facility] Sodium [Moles/Vol] 138 mmol/L 136 - 144 mmol/L [facility] Urea nitrogen [Mass/Vol] 8 mg/dL 7 - 21 mg/dL [facility] CBC W Auto Differential pane l (Bld)on 07-07-2022 Basophils (Bld) [#/Vol] 0.04 10*3/uL Normal <0.11 [facility] Comment on above: Order Comment: Speci men Type: BLOOD SPECIMENOrdering Facility: [facility] Address: [address] [place] [address] Performed By: #### 5 7021-8 ####[facility] LABCLIA [id number] [place] [address] [place] Basophils/100 WBC (Bld) 0.5 % Normal [facility] Comment on above: Order Comment: Speci men Type: BLOOD SPECIMENOrdering Facility: [facility] Address: [address] [place] [address] Performed By: #### 5 7021-8 ####[facility] LABCLIA [id number] [place] [address] [place] Differential cell count method Nom (Bld) Auto Normal [facility] Comment on above: Order Comment: Speci men Type: BLOOD SPECIMENOrdering Facility: [facility] Address: [address] [place] [address] Performed By: #### 5 7021-8 ####[facility] LABCLIA [id number] [place] [address] [place] Eosinophils (Bld) [#/Vol] 0.29 10*3/uL Normal <0.46 [facility] Comment on above: Order Comment: Speci men Type: BLOOD SPECIMENOrdering Facility: [facility] Address: [address] [place] [address] Performed By: #### 5 7021-8 ####[facility] LABCLIA [id number] [place] [address] [place] Eosinophils/100 WBC (Bld) 3.9 % Normal [facility] Comment on above: Order Comment: Speci men Type: BLOOD SPECIMENOrdering Facility: [facility] Address: [facility] [address] [address] Performed By: #### 5 7021-8 ####[facility] LABIA [id number] [place] [address] [place] Erythrocyte distribution width (RBC) [Ratio] 12.1 % Normal 11.5-15.0 [facility] Comment on above: Order Comment: Speci men Type: BLOOD SPECIMENOrdering Facility: [facility] Address: [address] [address] Performed By: #### 5 7021-8 ####[facility] LABIA [id number] [place] [address] [place] Hematocrit (Bld) [Volume fraction] 43.5 % Normal 36.0-46.0 [facility] Comment on above: Order Comment: Speci men Type: BLOOD SPECIMENOrdering Facility: [facility] Address: [address] [place] [address] Performed By: #### 5 7021-8 ####[facility] LABIA [id number] [place] [address] [place] Hemoglobin (Bld) [Mass/Vol] 14.9 g/dL Normal 11.5-15.5 [facility] Comment on above: Order Comment: Speci men Type: BLOOD SPECIMENOrdering Facility: [facility] Address: [address] [place] [address] Performed By: #### 5 7021-8 ####[facility] LABIA [id number] [place] [address] [place] Immature granulocytes (Bld) [#/Vol] 0.03 10*3/uL Normal <0.10 [facility] Comment on above: Order Comment: Speci men Type: BLOOD SPECIMENOrdering Facility: [facility] Address: [address] [place] [address] Performed By: #### 5 7021-8 ####[facility] LABCLIA [id number] [place] [address] [place] Immature granulocytes/100 WBC (Bld) 0.4 % Normal [facility] Comment on above: Order Comment: Speci men Type: BLOOD SPECIMENOrdering Facility: [facility] Address: [address] [place] [address] Performed By: #### 5 7021-8 ####[facility] [id number] [place] [address] [place] Lymphocytes (Bld) [#/Vol] 1.71 10*3/uL Normal 1.00-4.00 [facility] Comment on above: Order Comment: Speci men Type: BLOOD SPECIMENOrdering Facility: [facility] Address: [address] [place] [address] Performed By: #### 5 7021-8 ####[facility] LABIA [id number] [place] [address] [place] Lymphocytes/100 WBC (Bld) 23.2 % Normal [facility] Comment on above: Order Comment: Speci men Type: BLOOD SPECIMENOrdering Facility: [facility] Address: [address] [place] [address] Performed By: #### 5 7021-8 ####[facility] LABIA [id number] [place] [address] [place] MCH (RBC) [Entitic mass] 34.1 pg High 26.0-34.0 [facility] Comment on above: Order Comment: Speci men Type: BLOOD SPECIMENOrdering Facility: [facility] Address: [address] [place] [address] Performed By: #### 5 7021-8 ####[facility] [id number] [place] [address] [place] MCHC (RBC) [Mass/Vol] 34.3 g/dL Normal 30.5-36.0 [facility] Comment on above: Order Comment: Speci men Type: BLOOD SPECIMENOrdering Facility: [facility] Address: [address] [place] [address] Performed By: #### 5 7021-8 ####[facility] LABCLIA [id number] [place] [address] [place] MCV (RBC) [Entitic vol] 99.5 fL Normal 80.0-100.0 [facility] Comment on above: Order Comment: Speci men Type: BLOOD SPECIMENOrdering Facility: [facility] Address: [address] [place] [address] Performed By: #### 5 7021-8 ####[facility] LABCLIA [id number] [place] [address] [place] Monocytes (Bld) [#/Vol] 0.57 10*3/uL Normal <0.87 [facility] Comment on above: Order Comment: Speci men Type: BLOOD SPECIMENOrdering Facility: [facility] Address: [address] [place] [address] Performed By: #### 5 7021-8 ####[facility] LABCLIA [id number] [place] [address] [place] Monocytes/100 WBC (Bld) 7.7 % Normal [facility] Comment on above: Order Comment: Speci men Type: BLOOD SPECIMENOrdering Facility: [facility] Address: [address] [place] [address] Performed By: #### 5 7021-8 ####[facility] LABCLIA [id number] [place] [address] [place] Neutrophils (Bld) [#/Vol] 4.73 10*3/uL Normal 1.45-7.50 [facility] Comment on above: Order Comment: Speci men Type: BLOOD SPECIMENOrdering Facility: [facility] Address: [address] [address] Performed By: #### 5 7021-8 ####[facility] LABCLIA [id number] [place] [address] [place] Neutrophils/100 WBC (Bld) 64.3 % Normal [facility] Comment on above: Order Comment: Speci men Type: BLOOD SPECIMENOrdering Facility: [facility] Address: [address] [address] Performed By: #### 5 7021-8 ####[facility] LABIA [id number] [place] [address] [place] Nucleated RBC (Bld) [#/Vol] 10*3/uL Normal <0.01 [facility] Comment on above: Order Comment: Speci men Type: BLOOD SPECIMENOrdering Facility: [facility] Address: [address] [place] [address] Performed By: #### 5 7021-8 ####[facility] LABIA [id number] [place] [address] [place] Nucleated RBC/100 WBC (Bld) [Ratio] 0.0 /100 WBC Normal [facility] Comment on above: Order Comment: Speci men Type: BLOOD SPECIMENOrdering Facility: [facility] Address: [address] [place] [address] Performed By: #### 5 7021-8 ####[facility] LABIA [id number] [place] [address] [place] Platelet mean volume (Bld) [Entitic vol] 9.6 fL Normal 9.0-12.7 [facility] Comment on above: Order Comment: Speci men Type: BLOOD SPECIMENOrdering Facility: [facility] Address: [address] [place] [address] Performed By: #### 5 7021-8 ####[facility] LABCLIA [id number] [place] [address] [place] Platelets (Bld) [#/Vol] 277 10*3/uL Normal 150-400 [facility] Comment on above: Order Comment: Speci men Type: BLOOD SPECIMENOrdering Facility: [facility] Address: [address] [place] [address] Performed By: #### 5 7021-8 ####[facility] LABCLIA [id number] [place] [address] [place] RBC (Bld) [#/Vol] 4.37 10*6/uL Normal 3.90-5.20 [facility] Comment on above: Order Comment: Speci men Type: BLOOD SPECIMENOrdering Facility: [facility] Address: [address] [place] [address] Performed By: #### 5 7021-8 ####[facility]CLIA [id number] [place] [address] [place] WBC (Bld) [#/Vol] 7.37 10*3/uL Normal 3.70-11.00 [facility] Comment on above: Order Comment: Speci men Type: BLOOD SPECIMENOrdering Facility: [facility] Address: [address] [place] [address] Performed By: #### 5 7021-8 ####[facility]CLIA [id number] [place] [address] [place] Basophils (Bld) [#/Vol] 0.04 10*3/uL <0.11 k/uL [facility] Basophils/100 WBC (Bld) 0.5 % [facility] Differential cell count method Nom (Bld) Auto [facility] Eosinophils (Bld) [#/Vol] 0.29 10*3/uL <0.46 k/uL [facility] Eosinophils/100 WBC (Bld) 3.9 % [facility] Erythrocyte distribution width (RBC) [Ratio] 12.1 % 11.5 - 15.0 % [facility] Hematocrit (Bld) [Volume fraction] 43.5 % 36.0 - 46.0 % [facility] Hemoglobin (Bld) [Mass/Vol] 14.9 g/dL 11.5 - 15.5 g/dL [facility] Immature granulocytes (Bld) [#/Vol] 0.03 10*3/uL <0.10 k/uL [facility] Immature granulocytes/100 WBC (Bld) 0.4 % [facility] Lymphocytes (Bld) [#/Vol] 1.71 10*3/uL 1.00 - 4.00 k/uL [facility] Lymphocytes/100 WBC (Bld) 23.2 % [facility] MCH (RBC) [Entitic mass] 34.1 pg High 26.0 - 34.0 pg [facility] MCHC (RBC) [Mass/Vol] 34.3 g/dL 30.5 - 36.0 g/dL [facility] MCV (RBC) [Entitic vol] 99.5 fL 80.0 - 100.0 fL [facility] Monocytes (Bld) [#/Vol] 0.57 10*3/uL <0.87 k/uL [facility] Monocytes/100 WBC (Bld) 7.7 % [facility] Neutrophils (Bld) [#/Vol] 4.73 10*3/uL 1.45 - 7.50 k/uL [facility] Neutrophils/100 WBC (Bld) 64.3 % [facility] Nucleated RBC (Bld) [#/Vol] <0.01 k/uL [facility] Nucleated RBC/100 WBC (Bld) [Ratio] 0.0 /100 WBC [facility] Platelet mean volume (Bld) [Entitic vol] 9.6 fL 9.0 - 12.7 fL [facility] Platelets (Bld) [#/Vol] 277 10*3/uL 150 - 400 k/uL [facility] RBC (Bld) [#/Vol] 4.37 10*6/uL 3.90 - 5.2 0 m/uL [facility] WBC (Bld) [#/Vol] 7.37 10*3/uL 3.70 - 11. 00 k/uL [facility] CNOVon 07-07-2022 CNOV Office Visit (NEUSHF ) KAILA VASQUEZ ([id number]) 1980 F Date Time Provider Department 07/07/22 8:00 AM GLENROY SYED During your visit today, we recorded the following information about you: Pulse Blood pressure Weight Height 82/minute 134/88 112 kg 1.626 m Glenroy Syed APRN.PROPERTY AND SUPPLY OFFICER 07/07/2022 12:28 PM Signed [facility] General Neurology New Patient Evaluation CHIEF [...] over a month. She has seen an legal entity controller and was told she was having occular migraine by her executive secretary social welfare. A couple times a month she gets [...] PVC (premature ventricular contraction) SVT (supraventricular tachycardia) ([facility]) Vitamin D deficiency No past surgical history on file. ALLERGIES Not on File Social History Tobacco Use Smoking status: Never Smokeless tobacco: Never (more content not included)... Normal [facility] CNPNon 07-07-2022 CNPN Telephone (NEADFV) KAILA VASQUEZ ([id number]) 1980 F Date Time Provider Department 07/07/22 GLENROY SYED NEADFV During your visit today, we recorded the following information about you: Cinthya Salgado 07/07/2022 8:52 AM Signed Received medical records from [facility]. Uploaded to chart and forwarded for review. Kajal Gillespie RN 07/07/2022 9:14 AM Signed Noted. Provider notified. Allergies As of Date: 07/07/2022 (Not on File) Date Reviewed: 07/07/2022 Reviewed by: Elaine Bolaños Ma - Fully Assessed Reason for Visit: Received Outside Medical Records [2042] Prescriptions as of 07/19/2022 - metoprolol tartrate, short acting, (LOPRESSOR) 50 mg tablet metoprolol tartrate 50 mg tablet Facility-Administered Medications as of 07/19/2022 - perflutren lipid microspheres 1.3 mL in NaCl (PF) 0.9% 10 mL injection (DEFINITY) - sodium chloride 0.9 % (flush) 10 mL (BD POSIFLUSH) Problem List As Of Date: 07/07/2022 (None) Encounter Status:Closed by CINTHYA SALGADO on 07/19/22 Normal [facility] Centromere Ab IF Ql (S)on Centromere Ab Qn (S) <0.2 Normal <1.0 [facility] Comment on above: Order Comment: Speckyle hernández Type: BLOOD SPECIMENOrdering Facility: [facility] Address: [address] [address] Result Comment: Anti -centromere antibody is used as in aid in diagnosis of systemic sclerosis. Clinical correlation is required. Test Methodology: Multiplex flow immunoassay. Performed By: #### 2 9374-6, 31309-9, 13431-2, 94160-2, 88153-4, ANAIFR, 63918-0, 72389-5, 53521-6, 41782-0 ####[facility] LABCLIA [id number] [address] [place] CENTROMERE AB QUAL Negative Normal Negative [facility] Comment on above: Order Comment: Speci betty Type: BLOOD SPECIMENOrdering Facility: [facility] Address: [address] Performed By: #### 2 9374-6, 98969-1, 57645-7, 28160-6, 93522-9, ANAIFR, 37412-3, 58828-4, 55491-7, 06117-3 ####[facility] LABCLIA [id number] [address] [place] Chromatin Ab Qnon 07-07-2022 CHROMATIN AB QUAL Negative Normal Negative [facility] Comment on above: Order Comment: Davidi betty Type: BLOOD SPECIMENOrdering Facility: [facility] Address: [address] [id number] Performed By: #### 2 9374-6, 62841-4, 48142-0, 83054-3, 15324-3, ANAIFR, 33344-3, 13607-8, 61473-9, 64523-9 ####[facility] LABCLIA [id number] [place] [id number] [place] Chromatin Ab SerPl-aCncon Chromatin Ab Qn <0.2 Normal <1.0 [facility] Comment on above: Order Comment: Speci men Type: BLOOD SPECIMENOrdering Facility: [facility] Address: [address] [place] [address] Result Comment: Test Methodology: Multiplex flow immunoassay. Performed By: #### 2 9374-6, 54994-6, 05320-1, 25569-4, 07786-9, ANAIFR, 36933-6, 03889-8, 43934-1, 32148-9 ####[facility] LABCLIA [id number] [address] [place] KAMRAN Jo1 Ab Ser-aCncon 2021 Radha-1 extractable nuclear Ab Qn (S) <0.2 Normal <1.0 [facility] Comment on above: Order Comment: Speci men Type: BLOOD SPECIMENOrdering Facility: [facility] Address: [address] [place] [address] Performed By: #### 2 9374-6, 79513-4, 52525-3, 18263-9, 01374-3, ANAIFR, 88634-7, 47212-4, 80312-1, 37731-4 ####[facility]CLIA [id number] [address] [place] KAMRAN CALCINE FURNACE LOADER Ab Ser-aCncon 2021 Ribonucleoprotein extractable nuclear Ab Qn (S) <0.2 Normal <1.0 [facility] Comment on above: Order Comment: Speci men Type: BLOOD SPECIMENOrdering Facility: [facility] Address: [address] [place] [address] Performed By: #### 2 9374-6, 85202-8, 46485-2, 89032-2, 82633-1, ANAIFR, 61339-0, 71957-4, 94395-6, 52469-0 ####[facility] LABCLIA [id number] [place] [address] [place] KAMRAN SM IgG Ser-aCncon 2021 Osborne extractable nuclear IgG Qn (S) <0.2 Normal <1.0 [facility] Comment on above: Order Comment: Speci men Type: BLOOD SPECIMENOrdering Facility: [facility] Address: [address] [place] [address] Performed By: #### 2 9374-6, 58136-1, 07061-1, 24694-9, 72167-5, ANAIFR, 56157-9, 75327-3, 33897-5, 96864-2 ####[facility] [id number] [address] [place] KAMRAN SS-A Ab Ser-aCncon 07-07 Sjogrens syndrome-A extractable nuclear Ab Qn (S) 0.3 AI Normal <1.0 [facility] Comment on above: Order Comment: Speci men Type: BLOOD SPECIMENOrdering Facility: [facility] Address: [address] [place] [address] Result Comment: Test Methodology: Multiplex flow immunoassay. Performed By: #### 2 9374-6, 03642-9, 11007-8, 06602-8, 00725-7, ANAIFR, 73870-3, 82004-2, 24397-1, 75931-3 ####[facility] [id number] [address] [place] SS-B Ab Ser-aCncon 07-07 Sjogrens syndrome-B extractable nuclear Ab Qn (S) <0.2 Normal <1.0 [facility] Comment on above: Order Comment: Speci men Type: BLOOD SPECIMENOrdering Facility: [facility] Address: [address] [place] [address] Result Comment: Anti -SSB (anti-La) antibody is used as an aid in diagnosis of a variety of systemic autoimmune diseases, especially for Sjogren's syndrome and systemic lupus erythematosus. Clinical correlation is required. Test Methodology: Multiplex flow immunoassay. Performed By: #### 2 9374-6, 55436-7, 80194-6, 45613-6, 91751-0, ANAIFR, 21809-2, 14235-5, 05518-5, 33615-2 ####[facility] [id number] [address] [place] Radha-1 extractable nuclear Ab Qn (S)on 07-07-2022 RADHA 1 ANTIBODY QUAL Negative Normal Negative [facility] Comment on above: Order Comment: Speci men Type: BLOOD SPECIMENOrdering Facility: [facility] Address: [address] [address] Result Comment: Anti -RADHA-1 antibody is used as an aid in diagnosis of polymyositis and dermatomyositis especially with pulmonary involvement. A negative result cannot rule out polymyositis or dermatomyositis. Clinical correlation is required. Test Methodology: Multiplex flow immunoassay. Performed By: #### 2 9374-6, 97744-6, 32869-0, 55146-8, 70463-0, ANAIFR, 20565-8, 71122-7, 57943-0, 57973-2 ####[facility] [id number] [place] [address] [place] Ribonucleoprotein extractabl e nuclear Ab Qn (S)on 07-07-2022 ANTI-CALCINE FURNACE LOADER QUAL Negative Normal Negative [facility] Comment on above: Order Comment: Speci men Type: BLOOD SPECIMENOrdering Facility: [facility] Address: [address] [place] [address] Performed By: #### 2 9374-6, 92855-9, 88995-3, 76477-7, 07447-2, ANAIFR, 15321-2, 76351-1, 99103-4, 29430-9 ####[facility] [id number] [address] [address] [place] RIBOSOMAL CALCINE FURNACE LOADER QUAL Negative Normal Negative [facility] Comment on above: Order Comment: Speci men Type: BLOOD SPECIMENOrdering Facility: [facility] Address: [address] [place] [address] Result Comment: Anti -Ribosomal RNA (Ribosomal P) antibody is used as an aid in diagnosis of systemic autoimmune diseases especially systemic lupus erythematosus and mixed connective tissue disease. Cross-reactivity with Anti-osborne antibody is not uncommon. Clinical correlation is required. Test Methodology: Multiplex flow immunoassay. Performed By: #### 2 9374-6, 11811-5, 42230-8, 33417-1, 83109-8, ANAIFR, 61037-8, 02917-2, 41273-5, 15391-5 ####[facility] [id number] [place] [address] [place] SCL-70 extractable nuclear I gG IA Qn (S)on 07-07-2022 SCLERODERMA AB QUAL Negative Normal Negative [facility] Comment on above: Order Comment: Speci men Type: BLOOD SPECIMENOrdering Facility: [facility] Address: [address] [place] [address] Performed By: #### 2 9374-6, 06372-1, 42200-7, 96605-1, 84897-4, ANAIFR, 19374-8, 18238-6, 26666-7, 40690-7 ####[facility] [id number] [place] [address] [place] SCLERODERMA IGG AB <0.2 Normal <1.0 [facility] Comment on above: Order Comment: Speci [facility] Type: BLOOD SPECIMENOrdering Facility: [facility] Address: [address] [place] [address] Result Comment: Scl- 70/Scleroderma antibody test is used as an aid in diagnosis of systemic sclerosis especially the diffuse cutaneous form. A negative result cannot rule out systemic sclerosis. The final interpretation should consider clinical picture and other test results such as anti-centromere antibody. Test Methodology: Multiplex flow immunoassay. Performed By: #### 2 9374-6, 55095-3, 58678-9, 94604-3, 25539-6, ANAIFR, 08469-6, 13532-4, 53825-0, 85850-7 ####[facility] [id number] [place] [address] [place] Sjogrens syndrome-A extracta ble nuclear Ab Qn (S)on 07-07-2022 SSA ANTIBODY QUAL Negative Normal Negative [facility] Comment on above: Order Comment: Speci men Type: BLOOD SPECIMENOrdering Facility: [facility] Address: [address] [place] [address] Performed By: #### 2 9374-6, 93303-3, 22702-0, 34163-8, 92161-4, ANAIFR, 38033-0, 11469-4, 65229-0, 98125-1 ####[facility] [id number] [place] [address] [place] Sjogrens syndrome-B extracta ble nuclear Ab Qn (S)on 07-07-2022 SSB ANTIBODY QUAL Negative Normal Negative [facility] Comment on above: Order Comment: Speci men Type: BLOOD SPECIMENOrdering Facility: [facility] Address: [address] [place] [address] Performed By: #### 2 9374-6, 40235-1, 25782-4, 43780-9, 35133-2, ANAIFR, 66998-6, 92630-4, 97079-5, 43747-8 ####[facility] [id number] [place] [address] [place] Osborne extractable nuclear Ig G Qn (S)on 07-07-2022 SM ANTIBODY QUAL Negative Normal Negative [facility] Comment on above: Order Comment: Speci men Type: BLOOD SPECIMENOrdering Facility: [facility] Address: [address] [place] [address] Result Comment: Anti -Sm (Osborne) antibody is used as an aid in diagnosis of systemic lupus erythematosus and its presence is associated with renal disease. A negative result cannot rule out systemic lupus erythematosus. Clinical correlation is required. Test Methodology: Multiplex flow immunoassay. Performed By: #### 2 9374-6, 13750-9, 37942-0, 75535-9, 62730-4, ANAIFR, 81545-7, 93902-4, 79153-2, 46522-5 ####[facility] [id number] [place] [address] [place] TSH BLDon 07-07-2022 TSH Qn 0.824 m[IU]/L 0.270 - 4.200 mIU/L [facility] TSH SerPl-aCncon 07-07-2022 TSH Qn 0.824 m[IU]/L Normal 0.270-4.200 [facility] Comment on above: Order Comment: Speci men Type: BLOOD SPECIMENOrdering Facility: [facility] Address: [address] [place] [address] [place] [address] Result Comment: If t he patient is , TSH reference range varies by gestational period: First Trimester (weeks 9-12): 0.180-2.990 mIU/L Second Trimester: 0.110-3.980 mIU/L Third Trimester: 0.480-4.710 mIU/L Eliezer Bangura et al. A Practical Approach for the Verifications and Determination of Site- and Trimester-Specific Reference Intervals for Thyroid Function tests in . Thyroid, 2019:29:3:412-420. Rob Forrest, et al. 2017 Guidelines of the [place] [employer] for the Diagnosis and Management of Thyroid Disease during and the . Thyroid, 2017:27:3:315-389. Performed By: #### 3 016-3, 2132-9 ####[facility] [id number] [place] [address] [place] VITAMIN B12 BLOODon 07-07-20 22 Cobalamin (Vitamin B12) [Mass/Vol] 618 pg/mL 232 - 1,245 pg/mL [facility] Vit B12 SerPl-mCncon 022 Cobalamin (Vitamin B12) [Mass/Vol] 618 pg/mL Normal 232-1245 [facility] Comment on above: Order Comment: Speci men Type: BLOOD SPECIMENOrdering Facility: [facility] Address: [address] [address] Performed By: #### 3 016-3, 2132-9 ####[facility] [id number] [place] [address] [place] dsDNA Ab Ser IA-aCncon 07-07 DNA double strand Ab IA Qn (S) <12 Normal <30 [facility] Comment on above: Order Comment: Speci men Type: BLOOD SPECIMENOrdering Facility: [facility] Address: [address] [address] Result Comment: Nega tive for ds DNA Antibodies. <30 IU/mL Negative 30-74 IU/mL Equivocal >74 IU/mL Positive Performed By: #### 2 9374-6, 70790-3, 69249-3, 48523-5, 59641-2, ANAIFR, 09623-7, 72869-6, 18563-7, 90986-9 ####[facility] [id number] [address] [place] HLA B 27on 04-26-2022 HLA-B27 Negative Normal [facility] Comment on above: Result Comment: HLA- B*27 Negative B27 allele interpretation for all loci based on IMGT/HLA database version 3.44 This test was developed and its performance characteristics determined by [facility]. It has not been cleared or approved by the Food and Drug Administration. [facility] CLIA ID Number [id number] . This test was performed using PCR (Polymerase Chain Reaction)/SSOP (Sequence Specific Oligonucleotide Probes) technique. SBT (Sequence Based Typing) and/or SSP (Sequence Specific Primers) may be used as supplemental methods when necessary. Please contact [facility] Customer Service at if you have any questions. . Director of [facility] Laboratory Dr Abdiaziz Shook, PhD Performed By: #### C AMRITAAGA #### [facility] [address] [place] [address] Dr. Christos Fallon 25-HYDROXY VIT D (D2+D3 [facility] ) LC/MS-MSon 04-23-2022 25-Hydroxy, Vitamin D 26 ng/mL Critically low [facility] Comment on above: Result Comment: Refe rence Range: All Ages: Target levels 30 - 100 Performed By: #### C MP, TSH, HSTROPN #### [facility] [address] [place] [address] Dr. Christos Fallon 25-Hydroxy, Vitamin D-2 <1.0 Normal [facility] Comment on above: Result Comment: This test was developed and its performance characteristics determined by [facility]. It has not been cleared or approved by the Food and Drug Administration. Performed By: #### C MP, TSH, HSTROPN #### [facility] [address] [place] [address] Dr. Christos Fallon 25-Hydroxy, Vitamin D-3 26 ng/mL Normal [facility] Comment on above: Result Comment: This test was developed and its performance characteristics determined by [facility]. It has not been cleared or approved by the Food and Drug Administration. Performed By: #### C MP, TSH, HSTROPN #### [facility] [address] [place] [address] Dr. Christos Fallon REVERSE T3on 04-20-2022 Reverse T3, Serum 11.2 ng/dL Normal 9.2-24.1 [facility] Comment on above: Result Comment: This test was developed and its performance characteristics determined by [facility]. It has not been cleared or approved by the Food and Drug Administration. Performed By: #### C VDAGA #### [facility] [address] [place] [address] Dr. Christos Fallon THYROID ANTIBODIESon 022 Thyroglobulin Antibody <1.0 Normal 0.0-0.9 [facility] Comment on above: Result Comment: Thyr oglobulin Antibody measured by [employer] Methodology Performed By: #### C VDAGA #### [facility] [address] [place] [address] Dr. Christos Fallon Thyroid Peroxidase (TPO) Ab 11 IU/mL Normal 0-34 [facility] Comment on above: Performed By: #### C VDAGA #### [facility] [address] [place] [address] Dr. Christos Fallon ANTISTREPTOLYSIN O AB (ASO)o n 04-16-2022 Antistreptolysin O Ab 21.8 IU/mL Normal 0.0-200.0 [facility] Comment on above: Performed By: #### C MP, TSH, HSTROPN #### [facility] [address] [place] [address] Dr. Christos Fallon T3, TOTAL (TRIIODOTHYRONINE) on 04-16-2022 T3, TOTAL 115 ng/dL Normal 71-180 [facility] Comment on above: Performed By: #### C MP, TSH, HSTROPN #### [facility] [address] [place] [address] Dr. Christos Fallon FREE T3on 04-14-2022 FREE T3 2.46 pg/mlL Normal 2.18-3.98 [facility] Comment on above: Performed By: #### C MP, TSH, HSTROPN #### [facility] [address] [place] [address] Dr. Christos Fallon FREE T4on 04-14-2022 Free T4 [Mass/Vol] 0.88 ng/dL Normal 0.76-1.46 [facility] Comment on above: Performed By: #### C VDAGA #### [facility] [address] [place] [address] Dr. Christos Fallon TSHon 04-14-2022 TSH 1.027 uIU/mL Normal 0.358-3.740 [facility] Comment on above: Performed By: #### C MP, TSH, HSTROPN #### [facility] [address] [place] [address] Dr. Christos Fallon CBC AUTO DIFFon 03-22-2022 BASO # 0.1 103/ul Normal 0.0-0.1 [facility] Comment on above: Performed By: #### C MP, TSH, HSTROPN #### [facility] [address] [place] [address] Dr. Christos Fallon Basophils/100 WBC (Bld) 0.7 % Normal 0.2-2.0 [facility] Comment on above: Performed By: #### C MP, TSH, HSTROPN #### [facility] [address] [place] [address] Dr. Christos Fallon EO # 0.3 103/ul Normal 0.0-0.7 [facility] Comment on above: Performed By: #### C MP, TSH, HSTROPN #### [facility] [address] [place] [address] Dr. Christos Fallon Eosinophils/100 WBC (Bld) 3.4 % Normal 0.9-7.0 [facility] Comment on above: Performed By: #### C MP, TSH, HSTROPN #### [facility] [address] [place] [address] Dr. Christos Fallon Erythrocyte distribution width (RBC) [Ratio] 12.5 % Normal 11.0-15.0 [facility] Comment on above: Performed By: #### C MP, TSH, HSTROPN #### [facility] [address] [place] [address] Dr. Christos Fallon Hematocrit (Bld) [Volume fraction] 41.3 % Normal 36.0-48.0 [facility] Comment on above: Performed By: #### C MP, TSH, HSTROPN #### [facility] [address] [place] [address] Dr. Christos Fallon Hemoglobin (Bld) [Mass/Vol] 14.2 g/dL Normal 12.0-16.0 [facility] Comment on above: Performed By: #### C MP, TSH, HSTROPN #### [facility] [address] [place] [address] Dr. Christos Fallon IG # 0.03 10e3/ul Normal 0.00-0.03 [facility] Comment on above: Performed By: #### C MP, TSH, HSTROPN #### [facility] [address] [place] [address] Dr. Christos Fallon IG % 0.4 % Normal 0.0-0.5 [facility] Comment on above: Performed By: #### C MP, TSH, HSTROPN #### [facility] [address] [place] [address] Dr. Christos Fallon LYMPH # 2.3 103/ul Normal 1.2-3.8 [facility] Comment on above: Performed By: #### C MP, TSH, HSTROPN #### [facility] [address] [place] [address] Dr. Christos Fallon Lymphocytes/100 WBC (Bld) 31.3 % Normal 20.5-60.0 [facility] Comment on above: Performed By: #### C MP, TSH, HSTROPN #### [facility] [address] [place] [address] Dr. Christos Fallon MANUAL DIFF REQ NO Normal [facility] Comment on above: Performed By: #### C MP, TSH, HSTROPN #### [facility] [address] [place] [address] Dr. Christos Fallon MCH (RBC) [Entitic mass] 34.8 pg Critically high 26.7-34.0 [facility] Comment on above: Performed By: #### C MP, TSH, HSTROPN #### [facility] [address] [place] [address] Dr. Christos Fallon MCHC (RBC) [Mass/Vol] 34.4 g/dL Normal 29.9-35.2 [facility] Comment on above: Performed By: #### C MP, TSH, HSTROPN #### [facility] [address] [place] [address] Dr. Christos Fallon MCV (RBC) [Entitic vol] 101.2 fL Critically high 81.0-99.0 [facility] Comment on above: Performed By: #### C MP, TSH, HSTROPN #### [facility] [address] [place] [address] Dr. Christos Fallon MONO # 0.9 103/ul Critically high 0.3-0.[address] [facility] Comment on above: Performed By: #### C MP, TSH, HSTROPN #### [facility] [address] [address] [address] Christos Fallon Monocytes/100 WBC (Bld) 12.0 % Normal 1.7-12.0 [facility] Comment on above: Performed By: #### C MP, TSH, HSTROPN #### [facility] [address] [place] [address] Dr. Christos Fallon NEUT # 3.9 103/ul Normal 1.4-6.5 [facility] Comment on above: Performed By: #### C MP, TSH, HSTROPN #### [facility] [address] [place] [address] Dr. Christos Fallon Neutrophils/100 WBC (Bld) 52.2 % Normal 43.0-75.0 [facility] Comment on above: Performed By: #### C MP, TSH, HSTROPN #### [facility] [address] [place] [address] Dr. Christos Fallon Platelet mean volume (Bld) [Entitic vol] 9.7 fL Normal 9.5-13.5 [facility] Comment on above: Performed By: #### C MP, TSH, HSTROPN #### [facility] [address] [place] [address] Dr. Christos Fallon PLT 296 103/ul Normal 150-450 [facility] Comment on above: Performed By: #### C MP, TSH, HSTROPN #### [facility] [address] [place] [address] Dr. Christos Fallon RBC 4.08 106/ul Critically low 4.20-5.[address] [facility] Comment on above: Performed By: #### C MP, TSH, HSTROPN #### [facility] [address] [place] [address] Dr. Christos Fallon WBC 7.4 103/ul Normal 4.0-11.0 [facility] Comment on above: Performed By: #### C MP, TSH, HSTROPN #### [facility] [address] [place] [address] HEAD WO CONon [...] WETZEL Date: 2022-03-22 17:41 Normal [facility] ER URINE PROFILEon 2 Bilirubin Ql (U) Negative Normal NEGATIVE [facility] Comment on above: Performed By: #### C VDAGA #### [facility] [address] [place] [address] Dr. Christos Fallon Clarity (U) CLOUDY Abnormal CLEAR [facility] Comment on above: Performed By: #### C VDAGA #### [facility] [address] [place] [address] Dr. Christos Fallon Color (U) LT. YELLOW Normal YELLOW [facility] Comment on above: Performed By: #### C VDAGA #### [facility] [address] [place] [address] Dr. Christos Fallon ERUAHD A micrscopic examination will be performed if indicated. Normal [facility] Comment on above: Performed By: #### C VDAGA #### [facility] [address] [place] [address] Dr. Christos Fallon Glucose Ql (U) Negative Normal NEGATIVE [facility] Comment on above: Performed By: #### C VDAGA #### [facility] [address] [place] [address] Dr. Christos Fallon Hemoglobin Ql (U) Negative Normal NEGATIVE [facility] Comment on above: Performed By: #### C VDAGA #### [facility] [address] [place] [address] Dr. Christos Fallon Ketones Ql (U) Negative Normal NEGATIVE [facility] Comment on above: Performed By: #### C VDAGA #### [facility] [address] [place] [address] Dr. Christos Fallon LEUKOCYTES Negative Normal NEGATIVE [facility] Comment on above: Performed By: #### C VDAGA #### [facility] [address] [place] [address] Dr. Christos Fallon Nitrite Ql (U) Negative Normal NEGATIVE [facility] Comment on above: Performed By: #### C VDAGA #### [facility] [address] [place] [address] Dr. Christos Fallon pH (U) 6.0 [pH] Normal 5-9 [facility] Comment on above: Performed By: #### C VDAGA #### [facility] [address] [place] [address] Dr. Christos Fallon SPEC GRAVITY 1.010 Normal 1.005-<=1.02 5 [facility] Comment on above: Performed By: #### C VDAGA #### [facility] [address] [place] [address] Dr. Christos Fallon UA PROTEIN Negative Normal NEGATIVE/ TRACE [facility] Comment on above: Performed By: #### C VDAGA #### [facility] [address] [place] [address] Dr. Christos Fallon UR MICRO IND NOT INDICATED Normal [facility] Comment on above: Performed By: #### C VDAGA #### [facility] [address] [place] [address] Dr. Christos Fallon Urobilinogen Qn (U) 0.2 {Peyman'U}/dL Normal 0.2 - 1. 0 [facility] Comment on above: Performed By: #### C VDAGA #### [facility] [address] [place] [address] Dr. Christos Fallon PROF 14(COMP METB)on 022 Albumin [Mass/Vol] 3.6 g/dL Normal 3.4-5.0 [facility] Comment on above: Performed By: #### C MP, HSTROPN, TSH #### [facility] [address] [place] [address] Dr. Christos Fallon Albumin/Globulin [Mass ratio] 0.9 {ratio} Normal [facility] Comment on above: Performed By: #### C MP, HSTROPN, TSH #### [facility] [address] [place] [address] Dr. Christos Fallon ALP [Catalytic activity/Vol] 83 U/L Normal 46-116 [facility] Comment on above: Performed By: #### C MP, HSTROPN, TSH #### [facility] [address] [place] [address] Dr. Christos Fallon ALT [Catalytic activity/Vol] 32 U/L Normal 14-59 [facility] Comment on above: Performed By: #### C MP, HSTROPN, TSH #### [facility] [address] [place] [address] Dr. Christos Fallon Anion gap [Moles/Vol] 15.4 mmol/L Normal [facility] Comment on above: Performed By: #### C MP, HSTROPN, TSH #### [facility] [address] [place] [address] Dr. Christos Fallon AST [Catalytic activity/Vol] 15 U/L Normal 15-37 [facility] Comment on above: Performed By: #### C MP, HSTROPN, TSH #### [facility] [address] [place] [address] Dr. Christos Fallon Bilirubin [Mass/Vol] 0.3 mg/dL Normal 0.2-1.0 [facility] Comment on above: Performed By: #### C RAY, HSTROPN, TSH #### [facility] [address] [address] [address] Christos Fallon Calcium [Mass/Vol] 8.9 mg/dL Normal 8.5-10.1 [facility] Comment on above: Performed By: #### C MP, HSTROPN, TSH #### [facility] [address] [place] [address] Dr. Christos Fallon Chloride [Moles/Vol] 102 mmol/L Normal 98-107 [facility] Comment on above: Performed By: #### C MP, HSTROPN, TSH #### [facility] [address] [place] [address] Dr. Christos Fallon CO2 [Moles/Vol] 22.7 mmol/L Normal 21.0-32.0 [facility] Comment on above: Performed By: #### C MP, HSTROPN, TSH #### [facility] [address] [place] [address] Dr. Christos Fallon Creatinine [Mass/Vol] 0.97 mg/dL Normal 0.55-1.02 [facility] Comment on above: Performed By: #### C MP, HSTROPN, TSH #### [facility] [address] [place] [address] Dr. Christos Fallon EGFR-AF PUERTO RICAN >60 Normal >=60 [facility] Comment on above: Performed By: #### C MP, HSTROPN, TSH #### [facility] [address] [place] [address] Dr. Christos Fallon EGFR-NON AF PUERTO RICAN >60 Normal >=60 [facility] Comment on above: Performed By: #### C MP, HSTROPN, TSH #### [facility] [address] [place] [address] Dr. Christos Fallon Globulin (S) [Mass/Vol] 3.8 g/dL Normal [facility] Comment on above: Performed By: #### C MP, HSTROPN, TSH #### [facility] [address] [place] [address] Dr. Christos Fallon Glucose [Mass/Vol] 104 mg/dL Normal 74-106 [facility] Comment on above: Performed By: #### C RAY, HSTROPN, TSH #### [facility] [address] [address] [address] Christos Fallon Potassium [Moles/Vol] 4.1 mmol/L Normal 3.5-5.1 [facility] Comment on above: Performed By: #### C MP, HSTROPN, TSH #### [facility] [address] [address] [address] Christos Fallon Protein [Mass/Vol] 7.4 g/dL Normal 6.4-8.2 [facility] Comment on above: Performed By: #### C RAY, HSTROPN, TSH #### [facility] [address] [place] [address] Dr. Christos Fallon Sodium [Moles/Vol] 136 mmol/L Normal 136-145 [facility] Comment on above: Performed By: #### C MP, HSTROPN, TSH #### [facility] [address] [address] [address] Christos Fallon Urea nitrogen [Mass/Vol] 17.0 mg/dL Normal 7.0-18.0 [facility] Comment on above: Performed By: #### C MP, HSTROPN, TSH #### [facility] [address] [place] [address] Dr. Christos Fallon Urea nitrogen/Creatinine [Mass ratio] 17.5 mg/mg Normal [facility] Comment on above: Performed By: #### C MP, HSTROPN, TSH #### [facility] [address] [place] [address] Dr. Christos Fallon TROPONIN, HIGH SENSITIVITYon 03-22-2022 HSTROP <4.0 Normal 4.0-51.3 [facility] Comment on above: Result Comment: CUT- OFF POINTS HAVE BEEN ESTABLISHED BASED ON THE FOURTH UNIVERSAL DEFINITIONS OF MYOCARDIAL INFARCTION. THE UPPER REFERENCE LIMIT (URL) OF TROPONIN, DEFINED THE 99TH PERCENTILE OF cTnI DISTRIBUTION IN A REFERENCE POPULATION, HAS BEEN CONFIRMED THE DECISION THRESHOLD FOR [place] DIAGNOSIS. Performed By: #### C MP, HSTROPN, TSH #### [facility] [address] [place] [address] Dr. Christos Fallon TSHon 03-22-2022 TSH 0.854 uIU/mL Normal 0.358-3.740 [facility] Comment on above: Performed By: #### C MP, HSTROPN, TSH #### [facility] [address] [address] [address] Christos Fallon ASYMPTOMATIC COVID-19 ANTIGE Non 03-03-2022 EUA Statement SEE BELOW Normal [facility] Comment on above: Result Comment: This [...] Performed By: #### C VDAGA #### [facility] [address] [place] [address] Dr. Christos Fallon SARS-CoV-2 (COVID-19) RNA LEROY+probe Ql (Unsp spec) Positive Critically abnormal NEGATIVE [facility] Comment on above: Result Comment: SARS -CoV-2 antigen present; does not rule out coinfection with other pathogens. Performed By: #### C VDAGA #### [facility] [address] [place] [address] Dr. Christos Fallon Covid-19 PCR ([facility])on 02-06 SARS-CoV-2 (COVID-19) RNA LEROY+probe Ql (Unsp spec) Detected Critically abnormal NOT DETECTED [facility] Comment on above: Result Comment: This test is not yet approved or cleared by the [place] FDA. When there are no FDA-approved or cleared tests available, and other criteria are met, FDA can make tests available under an emergency access mechanism called an Emergency Use Authorization (EUA). The EUA for this test is supported by the Car Sales Representative of Health and Human Service's declaration that [...] #### C MP, TSH, HSTROPN #### [facility] [address] [place] [address] Dr. Christos Fallon CRPon 11-25-2021 CRP [Mass/Vol] mg/L Normal <=1.0 [facility] Comment on above: Performed By: #### C MP, TSH, HSTROPN #### [facility] [address] [place] [address] Dr. Christos Fallon VIT B12 AND FOLATEon 022 Cobalamin (Vitamin B12) [Mass/Vol] 329.0 pg/mL Normal 239.0-931.0 [facility] Comment on above: Performed By: #### C MP, TSH, HSTROPN #### [facility] [address] [place] [address] Dr. Christos Fallon FOLATE 8.50 ng/mL Normal >=2.76 [facility] Comment on above: Performed By: #### C MP, TSH, HSTROPN #### [facility] [address] [place] [address] Dr. Christos Fallon CBC AUTO DIFFon 11-19-2021 BASO # 0.1 103/ul Normal 0.0-0.1 [facility] Comment on above: Performed By: #### C BC #### [facility] [address] [place] [address] Dr. Christos Fallon Basophils/100 WBC (Bld) 0.8 % Normal 0.2-2.0 [facility] Comment on above: Performed By: #### C BC #### [facility] [address] [place] [address] Dr. Christos Fallon EO # 0.3 103/ul Normal 0.0-0.7 [facility] Comment on above: Performed By: #### C BC #### [facility] [address] [place] [address] Dr. Christos Fallon Eosinophils/100 WBC (Bld) 4.8 % Normal 0.9-7.0 [facility] Comment on above: Performed By: #### C BC #### [facility] [address] [place] [address] Dr. Chritsos Fallon Erythrocyte distribution width (RBC) [Ratio] 12.2 % Normal 11.0-15.0 [facility] Comment on above: Performed By: #### C BC #### [facility] [address] [place] [address] Dr. Christos Fallon Hematocrit (Bld) [Volume fraction] 41.9 % Normal 36.0-48.0 [facility] Comment on above: Performed By: #### C BC #### [facility] [address] [place] [address] Dr. Christos Fallon Hemoglobin (Bld) [Mass/Vol] 14.2 g/dL Normal 12.0-16.0 [facility] Comment on above: Performed By: #### C BC #### [facility] [address] [place] [address] Dr. Christos Fallon IG # 0.03 10e3/ul Normal 0.00-0.03 [facility] Comment on above: Performed By: #### C BC #### [facility] [address] [place] [address] Dr. Christos Fallon IG % 0.5 % Normal 0.0-0.5 [facility] Comment on above: Performed By: #### C BC #### [facility] [address] [place] [address] Dr. Christos Fallon LYMPH # 1.5 103/ul Normal 1.2-3.8 [facility] Comment on above: Performed By: #### C BC #### [facility] [address] [place] [address] Dr. Christos Fallon Lymphocytes/100 WBC (Bld) 24.6 % Normal 20.5-60.0 [facility] Comment on above: Performed By: #### C BC #### [facility] [address] [place] [address] Dr. Christos Fallon MANUAL DIFF REQ NO Normal [facility] Comment on above: Performed By: #### C BC #### [facility] [address] [place] [address] Dr. Christos Fallon MCH (RBC) [Entitic mass] 34.3 pg Critically high 26.7-34.0 [facility] Comment on above: Performed By: #### C BC #### [facility] [address] [place] [address] Dr. Christos Fallon MCHC (RBC) [Mass/Vol] 33.9 g/dL Normal 29.9-35.2 [facility] Comment on above: Performed By: #### C BC #### [facility] [address] [place] [address] Dr. Christos Fallon MCV (RBC) [Entitic vol] 101.2 fL Critically high 81.0-99.0 [facility] Comment on above: Performed By: #### C BC #### [facility] [address] [place] [address] Dr. Christos Fallon MONO # 0.5 103/ul Normal 0.3-0.8 [facility] Comment on above: Performed By: #### C BC #### [facility] [address] [place] [address] Dr. Christos Fallon Monocytes/100 WBC (Bld) 7.2 % Normal 1.7-12.0 [facility] Comment on above: Performed By: #### C BC #### [facility] [address] [place] [address] Dr. Christos Fallon NEUT # 3.9 103/ul Normal 1.4-6.5 [facility] Comment on above: Performed By: #### C BC #### [facility] [address] [address] [address] Christos Fallon Neutrophils/100 WBC (Bld) 62.1 % Normal 43.0-75.0 [facility] Comment on above: Performed By: #### C BC #### [facility] [address] [address] [address] Christos Fallon Platelet mean volume (Bld) [Entitic vol] 9.1 fL Critically low 9.5-13.5 [facility] Comment on above: Performed By: #### C BC #### [facility] [address] [address] [address] Christos Fallon PLT 301 103/ul Normal 150-450 [facility] Comment on above: Performed By: #### C BC #### [facility] [address] [place] [address] Dr. Christos Fallon RBC 4.14 106/ul Critically low 4.20-5.[address] [facility] Comment on above: Performed By: #### C BC #### [facility] [address] [address] [address] Christos Fallon WBC 6.3 103/ul Normal 4.0-11.0 [facility] Comment on above: Performed By: #### C BC #### [facility] [address] [place] [address] Dr. Christos Fallon FREE T3on 11-19-2021 FREE T3 2.72 pg/mlL Critically low 2.77-5.[address] [facility] Comment on above: Performed By: #### C MP, TSH, HSTROPN #### [facility] [address] [address] [address] Christos Fallon FREE T4on 11-19-2021 Free T4 [Mass/Vol] 1.09 ng/dL Normal 0.78-2.19 [facility] Comment on above: Performed By: #### C MP, TSH, HSTROPN #### [facility] [address] [address] [address] Christos Fallon GLYCOHEMOGLOBIN A1Con 2021 ADA RECOMMENDATION ADA THERAPEUTIC TARG ET 6.0 - 7.0 ACTION SUGGESTED > 7.0 Normal [facility] Comment on above: Performed By: #### A 1C #### [facility] [address] [address] [address] Christos Fallon Glucose [Mass/Vol] 105 mg/dL Normal [facility] Comment on above: Performed By: #### A 1C #### [facility] [address] [address] [address] Christos Fallon HbA1c (Bld) [Mass fraction] 5.3 % Normal <=6.0 [facility] Comment on above: Performed By: #### A 1C #### [facility] [address] [address] [address] Christos Fallon LIPID PROFILEon 11-19-2021 CHOL-HDL RATIO NORM SEE BELOW Normal [facility] Comment on above: Result Comment: 3.3 - 4.4 LOW RISK 4.4 - 7.1 AVERAGE RISK 7.1 - 11.0 MODERATE RISK >11.0 HIGH RISK Performed By: #### C MP, TSH, HSTROPN #### [facility] [address] [address] [address] Christos Fallon Cholesterol [Mass/Vol] 232 mg/dL Critically high <=200 [facility] Comment on above: Performed By: #### C MP, TSH, HSTROPN #### [facility] [address] [address] [address] Christos Fallon Cholesterol in HDL [Mass/Vol] 60 mg/dL Normal 40-60 [facility] Comment on above: Performed By: #### C MP, TSH, HSTROPN #### [facility] [address] [address] [address] Christos Fallon Cholesterol in LDL [Mass/Vol] 134.6 mg/dL Normal [facility] Comment on above: Performed By: #### C MP, TSH, HSTROPN #### [facility] [address] [place] [address] Dr. Christos Fallon Cholesterol.total/Cho lesterol in HDL [Mass ratio] 3.9 {ratio} Normal [facility] Comment on above: Performed By: #### C MP, TSH, HSTROPN #### [facility] [address] [address] [address] Christos Fallon HDL NORMAL > or = 60 mg/dl - LO W CARDIOVASCULAR RISK <40 mg/dl - HIGH CARDIOVASCULAR RISK Normal [facility] Comment on above: Performed By: #### C MP, TSH, HSTROPN #### [facility] [address] [address] [address] Christos Fallon LDL CALC NORMAL SEE BELOW Normal [facility] Comment on above: Result Comment: <100 mg/dl OPTIMAL 100 - 129 mg/dl NEAR OR ABOVE OPTIMAL 130 - 159 mg/dl BORDERLINE HIGH 160 - 189 mg/dl HIGH >190 mg/dl VERY HIGH Performed By: #### C MP, TSH, HSTROPN #### [facility] [address] [place] [address] Dr. Christos Fallon Triglyceride [Mass/Vol] 187 mg/dL Critically high <=150 [facility] Comment on above: Performed By: #### C MP, TSH, HSTROPN #### [facility] [address] [address] [address] Christos Fallon VLDL CALC 37.4 mg/dL Normal [facility] Comment on above: Performed By: #### C MP, TSH, HSTROPN #### [facility] [address] [place] [address] Dr. Christos Fallon PROF 14(COMP METB)on 022 Albumin [Mass/Vol] 3.8 g/dL Normal 3.4-5.0 [facility] Comment on above: Performed By: #### C MP, TSH, HSTROPN #### [facility] [address] [address] [address] Christos Fallon Albumin/Globulin [Mass ratio] 1.1 {ratio} Normal [facility] Comment on above: Performed By: #### C MP, TSH, HSTROPN #### [facility] [address] [address] [address] Christos Fallon ALP [Catalytic activity/Vol] 77 U/L Normal 46-116 [facility] Comment on above: Performed By: #### C MP, TSH, HSTROPN #### [facility] [address] [place] [address] Dr. Christos Fallon ALT [Catalytic activity/Vol] 34 U/L Normal 14-59 [facility] Comment on above: Performed By: #### C MP, TSH, HSTROPN #### [facility] [address] [place] [address] Dr. Christos Fallon Anion gap [Moles/Vol] 11.5 mmol/L Normal [facility] Comment on above: Performed By: #### C MP, TSH, HSTROPN #### [facility] [address] [place] [address] Dr. Christos Fallon AST [Catalytic activity/Vol] 21 U/L Normal 15-37 [facility] Comment on above: Performed By: #### C MP, TSH, HSTROPN #### [facility] [address] [place] [address] Dr. Christos Fallon Bilirubin [Mass/Vol] 0.7 mg/dL Normal 0.2-1.3 [facility] Comment on above: Performed By: #### C MP, TSH, HSTROPN #### [facility] [address] [place] [address] Dr. Christos Fallon Calcium [Mass/Vol] 8.8 mg/dL Normal 8.5-10.1 [facility] Comment on above: Performed By: #### C MP, TSH, HSTROPN #### [facility] [address] [place] [address] Dr. Christos Fallon Chloride [Moles/Vol] 104 mmol/L Normal 98-107 [facility] Comment on above: Performed By: #### C MP, TSH, HSTROPN #### [facility] [address] [place] [address] Dr. Christos Fallon CO2 [Moles/Vol] 28.6 mmol/L Normal 22.0-30.0 [facility] Comment on above: Performed By: #### C MP, TSH, HSTROPN #### [facility] [address] [address] [address] Christos Fallon Creatinine [Mass/Vol] 0.88 mg/dL Normal 0.52-1.04 [facility] Comment on above: Performed By: #### C MP, TSH, HSTROPN #### [facility] [address] [address] [address] Christos Fallon EGFR-AF PUERTO RICAN >60 Normal >=60 [facility] Comment on above: Performed By: #### C MP, TSH, HSTROPN #### [facility] [address] [address] [address] Christos Fallon EGFR-NON AF PUERTO RICAN >60 Normal >=60 [facility] Comment on above: Performed By: #### C MP, TSH, HSTROPN #### [facility] [address] [place] [address] Dr. Christos Fallon Globulin (S) [Mass/Vol] 3.5 g/dL Normal [facility] Comment on above: Performed By: #### C MP, TSH, HSTROPN #### [facility] [address] [address] [address] Christos Fallon Glucose [Mass/Vol] 101 mg/dL Normal 74-106 [facility] Comment on above: Performed By: #### C MP, TSH, HSTROPN #### [facility] [address] [address] [address] Christos Fallon Potassium [Moles/Vol] 4.1 mmol/L Normal 3.4-5.0 [facility] Comment on above: Performed By: #### C MP, TSH, HSTROPN #### [facility] [address] [address] [address] Christos Fallon Protein [Mass/Vol] 7.3 g/dL Normal 6.1-8.2 [facility] Comment on above: Performed By: #### C MP, TSH, HSTROPN #### [facility] [address] [address] [address] Christos Fallon Sodium [Moles/Vol] 140 mmol/L Normal 137-145 [facility] Comment on above: Performed By: #### C MP, TSH, HSTROPN #### [facility] [address] [address] [address] Christos Fallon Urea nitrogen [Mass/Vol] 11.0 mg/dL Normal 7.0-18.0 [facility] Comment on above: Performed By: #### C MP, TSH, HSTROPN #### [facility] [address] [address] [address] Christos Fallon Urea nitrogen/Creatinine [Mass ratio] 12.5 mg/mg Normal [facility] Comment on above: Performed By: #### C MP, TSH, HSTROPN #### [facility] [address] [place] [address] Dr. Christos Fallon TSHon 11-19-2021 TSH 0.774 uIU/mL Normal 0.470-4.680 [facility] Comment on above: Performed By: #### C MP, TSH, HSTROPN #### [facility] [address] [place] [address] Dr. Christos Fallon TSH RANGE SEE BELOW Normal [facility] Comment on above: Result Comment: <0.3 4 UIU/ml HYPERTHYROID 0.34-5.60 UIU/ml EUTHYROID >5.60 UIU/ml HYPOTHYROID Performed By: #### C MP, TSH, HSTROPN #### [facility] [address] [place] [address] Dr. Christos Fallon XR TSPINE 2 VIEWSon [...] GUILLERMO Date: 2021-11-19 12:49 Normal [facility] Cardiovascular Lab Reporton 11-17-2021 Cardiovascular Lab Report [facility] Patient Name: [facility] MR #: [id number] Physician: Jonny Fowler M.D. Department of Service Date: 11/17/2021 Medicine Birthdate: 1980 Division of Room #: CC Cardiology Adult Cardiovascular Services [facility] [address] [facility]. [address] [place] [address] Cardiovascular Laboratory Report PROCEDURE: Implantable loop recorder [...] A Jonny Fowler M.D. Date Dict: 11/17/2021/10:47 Anupama/Jonny Fowler M.D. Date Trans: 11/17/2021 12:41 P/mmo [id number] cc: Mert Lama M.D. [address] [place] [address] A [facility] [phone] Normal [facility] Covid-19 PCR ([facility])on SARS-CoV-2 (COVID-19) RNA LEROY+probe Ql (Unsp spec) Not detected Normal NOT DETECTED [facility] Comment on above: Result Comment: This test is not yet approved or cleared by the [place] FDA. When there are no FDA-approved or cleared tests available, and other criteria are met, FDA can make tests available under an emergency access mechanism called an Emergency Use Authorization (EUA). The EUA for this test is supported by the Car Sales Representative of Health and Human Service's (HHS's) declaration [...] #### C MP, TSH, HSTROPN #### [facility] [address] [address] [address] Christos Fallno Covid-19 PCR ([facility])on SARS-CoV-2 (COVID-19) RNA LEROY+probe Ql (Unsp spec) Not detected Normal NOT DETECTED [facility] Comment on above: Result Comment: When [...] for this test is supported by the Car Sales Representative of Health and Human Service's declaration that [...] longer be used). Performed By: #### C [facility] #### [facility] [address] [place] [address] Dr. Christos Fallon Cardiovascular Lab Reporton 06-17-2021 Cardiovascular Lab Report [facility] Patient Name: [facility] MR #: [id number] Physician: Vishal Rogers MD Department of Service Date: 06/17/2021 Medicine Birthdate: 1980 Division of Room #: CC Cardiology Adult Cardiovascular Services [facility] [address] [address] Cardiovascular Laboratory Report COMPREHENSIVE EP STUDY AND [...] same (more content not included)... Normal [facility] FEMUR LEFT 2 Son 1 FEMUR LEFT 2 [facility] Department of Radiology [address] [place] [id number] ======== Patient Name: KAILA VASQUEZ : [...] report. Electronically signed: Gelacio Pfeiffer. Transcribed by: [email or web address], User Resident: TAVON BELCHER Electronically Signed by: GELACIO PFEIFFER @ 01/15/2021 12:03 PM I personally read this/these film(s) with this resident Normal [facility] Comment on above: Order Comment: evalu ate Operative Reporton Operative Report MR#: [id number] [facility] Pt. Name: Kaila Vasquez Room #: 0C Discharge 12/05/2020 Date: Birthdate: 1980 OPERATIVE REPORT DATE OF SURGERY: 12/05/2020 SURGEON: Pamella Brennan M.D. PREOPERATIVE DIAGNOSIS: Left distal femur osteochondroma. POSTOPERATIVE DIAGNOSIS: Left distal femur osteochondroma. PROCEDURE PERFORMED: Left distal femur osteochondroma excision. SENIOR MICROSTRATEGY DEVELOPER: Alaina Edouard M.D. ANESTHESIA: General endotracheal. SPECIMENS: [...] i (more content not included)... Normal [facility] FEMUR LEFT 2 [facility] 1 FEMUR LEFT 2 [facility] Department of Radiology [address] [place] [phone] ======== Patient Name: KAILA VASQUEZ : 1980 Sex: F Age: Race: White Pt. Location: OUTP Patient Status: O Ordered Date: 12/05/2020 7:30:00 AM Completed Date: 12/05/2020 10:05 AM Requesting Provider: PAMELLA BRENNAN Attending Provider: PAMELLA BRENNAN Report Copy To: Signs & Symptoms: LEFT DISTAL FEMUR OSTEOCHONDROMA EXCISION History: Comments: LEFT DISTAL FEMUR OSTEOCHONDROMA EXCISION Exam: FEMUR LEFT 2 VWS ======== FEMUR LEFT 2 VWS 12/05/2020 10:05 [...] purposes. Electronically signed: Ching Garcia. Transcribed by: [email or web address], User Resident: Electronically Signed by: CHING GARCIA @ 12/05/2020 11:54 AM Normal [facility] Comment on above: Order Comment: LEFT DISTAL FEMUR OSTEOCHONDROMA EXCISION POC GLUCOSE LABon 12-05-2020 Glucose [Mass/Vol] 108 mg/dL High 70-100 [facility] Comment on above: Performed By: #### 8 [id number] ####[facility] *MRSA/MSSA DNA NASALon 11-28 *MRSA/MSSA DNA NASAL Clinical Report: (D ) Specimen: NASAL SWAB Collected: 11/28/2020 13:22 Status: Final Last Updated: 2020 13:05 MSSA DNA (Final) Negative MRSA DNA (Final) Negative Normal [facility] Comment on above: Performed By: #### 3 [id number] ####[facility] APTTon 11-28-2020 aPTT Coag (Bld) [Time] 29.1 s Normal 25.0-35.0 [facility] Comment on above: Result Comment: ALL [...] THIS PURPOSE. Performed By: #### 5 [id number], [id number] #### [facility] [address] BASIC METABOLIC PANELon 11-07 Calcium [Mass/Vol] 9.5 mg/dL Normal 8.6-10.3 [facility] Comment on above: Performed By: #### 0 0071 #### [facility] [address] [place] [address], [facility] Chloride [Moles/Vol] 104 mmol/L Normal 98-107 [facility] Comment on above: Performed By: #### 0 0071 #### [facility] [address] [place] [address], [facility] CO2 [Moles/Vol] 28 mmol/L Normal 21-31 [facility] Comment on above: Performed By: #### 0 0071 #### [facility] [address] Creatinine [Mass/Vol] 0.90 mg/dL Normal 0.60-1.20 [facility] Comment on above: Performed By: #### 0 0071 #### [facility] [address] [place] [address], [facility] GFR/1.73 sq M.predicted among blacks MDRD (S/P/Bld) [Vol rate/Area] mL/min/{1.73_m2} Normal >60 [facility] Comment on above: Performed By: #### 0 0071 #### [facility] [address] [facility] [place] [address], [facility] GFR/1.73 sq M.predicted among non-blacks MDRD (S/P/Bld) [Vol rate/Area] mL/min/{1.73_m2} Normal >60 [facility] [facility] Comment on above: Performed By: #### 0 0071 #### [facility] [address] [place] [address], [facility] Glucose [Mass/Vol] 132 mg/dL High 70-100 [facility] Comment on above: Performed By: #### 0 0071 #### [facility] [address] [place] [address], [facility] Potassium [Moles/Vol] 3.8 mmol/L Normal 3.5-5.1 [facility] Comment on above: Performed By: #### 0 0071 #### [facility] [address] [facility] [place] [address], [facility] Sodium [Moles/Vol] 138 mmol/L Normal 136-145 [facility] Comment on above: Performed By: #### 0 0071 #### [facility] [address] [facility] [place] [address], [facility] Urea nitrogen [Mass/Vol] 9 mg/dL Normal 7-25 [facility] Comment on above: Performed By: #### 0 0071 #### [facility] [address] [facility] [place] [address], [facility] CBC W/DIFFon 11-28-2020 ABS IMM GRANS 0.0 10*3/uL Normal 0.0-0.2 [facility] Comment on above: Performed By: #### 5 0103 ####[facility] [place] [address], [facility] ABS NEUTROPHILS 7.2 10*3/uL Normal 1.6-7.6 [facility] Comment on above: Performed By: #### 5 0103 ####[facility] [place] [address], [facility] Basophils (Bld) [#/Vol] 0.1 10*3/uL Normal 0.0-0.2 [facility] Comment on above: Performed By: #### 5 0103 ####[facility] [place] [address], [facility] Basophils/100 WBC (Bld) 0.6 % Normal 0.0-1.0 [facility] Comment on above: Performed By: #### 5 0103 ####[facility] [facility] [place] [address], [facility] Eosinophils (Bld) [#/Vol] 0.3 10*3/uL Normal 0.0-0.5 [facility] Comment on above: Performed By: #### 5 0103 ####[facility] [facility] [place] [address], [facility] Eosinophils/100 WBC (Bld) 2.6 % Normal 0.0-6.0 [facility] Comment on above: Performed By: #### 5 0103 ####[facility] [facility] Erythrocyte distribution width (RBC) [Ratio] 12.6 % Normal 11.5-15.0 [facility] Comment on above: Performed By: #### 5 0103 ####[facility] [place] [address], [facility] Hematocrit (Bld) [Volume fraction] 42.6 % Normal 36.0-45.0 [facility] Comment on above: Performed By: #### 5 0103 ####[facility] [place] [address], [facility] Hemoglobin (Bld) [Mass/Vol] 14.4 g/dL Normal 12.0-15.0 [facility] Comment on above: Performed By: #### 5 0103 ####[facility] IMMATURE GRANS 0.3 % Normal 0.0-1.0 [facility] Comment on above: Performed By: #### 5 0103 ####[facility] [place] [address] Lymphocytes (Bld) [#/Vol] 2.1 10*3/uL Normal 1.2-4.0 [facility] Comment on above: Performed By: #### 5 0103 ####[address] Lymphocytes/100 WBC (Bld) 20.2 % Normal 20.0-45.0 [facility] Comment on above: Performed By: #### 5 0103 ####[address] MCH (RBC) [Entitic mass] 33.6 pg High 27.0-33.0 [facility] Comment on above: Performed By: #### 5 0103 ####[address] MCHC (RBC) [Mass/Vol] 33.8 g/dL Normal 32.0-35.0 [facility] Comment on above: Performed By: #### 5 0103 ####[place] [id number] [address] MCV (RBC) [Entitic vol] 99.5 fL High 82.0-98.0 [facility] Comment on above: Performed By: #### 5 3 ####[address] Monocytes (Bld) [#/Vol] 0.7 10*3/uL Normal 0.1-1.0 [facility] Comment on above: Performed By: #### 5 0103 ####[facility] MONOS 6.4 % Normal 5.0-12.0 [facility] Comment on above: Performed By: #### 5 0103 ####[facility] Neutrophils/100 WBC (Bld) 69.9 % Normal 40.0-72.0 [facility] Comment on above: Performed By: #### 5 3 ####[facility] Nucleated RBC/100 WBC (Bld) [Ratio] 0 % Normal 0-0 [facility] Comment on above: Performed By: #### 5 3 ####[facility] PLAT CNT 346 10*3/uL Normal 150-400 [facility] Comment on above: Performed By: #### 5 0103 ####[facility] RBC (Bld) [#/Vol] 4.28 10*6/uL Normal 3.80-5.00 [facility] Comment on above: Performed By: #### 5 0103 ####[facility] WBC (Bld) [#/Vol] 10.24 10*3/uL Normal 4.00-10.60 [facility] Comment on above: Performed By: #### 5 3 ####[facility] PROTHROMBIN TIMEon 1 INR Coag (PPP) [Relative time] 0.99 {INR} Normal 0.91-1.16 [facility] Comment on above: Result Comment: ACCC [...] CHEST 1995;108:[id number]. Performed By: #### 5 [id number], [id number] #### [facility] [address] [place] [address], [facility] PT Coag (PPP) [Time] 13.1 s Normal 12.3-14.8 [facility] Comment on above: Result Comment: ALL RESULTS MUST BE INTERPRETED WITH RESPECT TO BLOOD DRAWING ARTIFACT OR DILUTION ERROR OF ANTICOAGULANT AT THE TIME OF SAMPLING. Performed By: #### 5 7307, [id number] #### [facility] [address] [place] [address], [facility] TYPE AND CROSSMATCHon 2020 ABO INTERPRETATION O Normal [facility] Comment on above: Performed By: #### 6 2594 #### [facility] [address] [place] [address], [facility] RH INTERPRETATION Positive Normal [facility] Comment on above: Performed By: #### 6 2594 #### [facility] [address] [place] [id number], [place] URINALYSISon 11-28-2020 Appearance (U) CLEAR Normal CLEAR [facility] Comment on above: Performed By: #### 1 0008 #### [facility] [address] [place] [address], [place] Bilirubin Ql (U) Negative Normal NEGATIVE [facility] Comment on above: Performed By: #### 1 0008 #### [facility] [address] [place] [address], [place] Color (U) YELLOW Normal YELLOW [facility] Comment on above: Performed By: #### 1 0008 #### [facility] [address] [place] [address], [place] Glucose Ql (U) Negative Normal NEGATIVE [facility] Comment on above: Performed By: #### 1 0008 #### [facility] [address] [place] [address], [place] Hemoglobin Ql (U) Negative Normal NEGATIVE [facility] Comment on above: Performed By: #### 1 0008 #### [facility] [address] [place] [address], [place] KETONE Negative Normal NEGATIVE [facility] Comment on above: Performed By: #### 1 0008 #### [facility] [address] [place] [address], [place] LEUK JORDAN Negative Normal NEGATIVE [facility] Comment on above: Performed By: #### 1 0008 #### [facility] [address] [place] [address], [place] MICRO NOT DONE Normal [facility] Comment on above: Result Comment: Micr oscopics not performed on urines with negative chemical reactions unless requested in original order Performed By: #### 1 0008 #### [facility] [address] [place] [address], [place] Nitrite Ql (U) Negative Normal NEGATIVE [facility] Comment on above: Performed By: #### 1 0008 #### [facility] [address] [place] [address], [facility] pH (U) 6.0 [pH] Normal 5.0-8.0 [facility] Comment on above: Performed By: #### 1 0008 #### [facility] [address] [place] [address], [facility] Protein Ql (U) Negative Normal NEGATIVE [facility] Comment on above: Performed By: #### 1 0008 #### [facility] [address] [place] [address], [facility] SPEC GRAV 1.018 Normal 1.015-1.020 [facility] Comment on above: Performed By: #### 1 0008 #### [facility] [address] [place] [address], [facility] Vital Signs Date Time Vital Sign Value Performing Clinician Faci lity 08-24-2022 13:44-0500 Body height 162.6 cm Janell Sy MD Work Phone: [facility] 08-24-2022 13:44-0500 Body weight 112.95 kg Janell Sy MD Work Phone: [facility] 08-24-2022 13:44-0500 Diastolic blood pressure 73 mm[Hg] Janell Sy MD Work Phone: [facility] 08-24-2022 13:44-0500 Heart rate 88 /min Janell Sy MD Work Phone: [facility] 08-24-2022 13:44-0500 SaO2% (BldA) [Mass fraction] 98 % Janell Sy MD Work Phone: [facility] 08-24-2022 13:44-0500 Systolic blood pressure 112 mm[Hg] Janell Sy MD Work Phone: [facility] 08-05-2022 10:00-0500 Diastolic blood pressure 88 mm[Hg] Carmen Johnson PT Work Phone: [facility] 08-05-2022 10:00-0500 Heart rate 78 /min Carmen Seese PT Work Phone: [facility] 08-05-2022 10:00-0500 Systolic blood pressure 134 mm[Hg] Carmen Seese PT Work Phone: [facility] 07-07-2022 08:12-0500 Body height 162.6 cm Glenroy Syed RESIDENTIAL ELECTRICIAN.PROPERTY AND SUPPLY OFFICER Work Phone: [facility] 07-07-2022 08:12-0500 Body weight 112.04 kg Glenroy Syed RESIDENTIAL ELECTRICIAN.PROPERTY AND SUPPLY OFFICER Work Phone: [facility] 07-07-2022 08:12-0500 Diastolic blood pressure 88 mm[Hg] Glenroy Syed RESIDENTIAL ELECTRICIAN.PROPERTY AND SUPPLY OFFICER Work Phone: [facility] 07-07-2022 08:12-0500 Heart rate 82 /min Glenroy Syed RESIDENTIAL ELECTRICIAN.PROPERTY AND SUPPLY OFFICER Work Phone: [facility] 07-07-2022 08:12-0500 SaO2% (BldA) [Mass fraction] 98 % Glenroy Syed RESIDENTIAL ELECTRICIAN.PROPERTY AND SUPPLY OFFICER Work Phone: [facility] 07-07-2022 08:12-0500 Systolic blood pressure 134 mm[Hg] Glenroy Syed RESIDENTIAL ELECTRICIAN.PROPERTY AND SUPPLY OFFICER Work Phone: [facility] 12-09-2021 13:59-0400 Blood Pressure Location Pamella SANABRIA [facility] 12-09-2021 13:59-0400 Diastolic blood pressure 78 mm[Hg] Pamella SANABRIA [facility] 12-09-2021 13:59-0400 Heart rate 68 /min Pamella ZIMMERMANL [facility] 12-09-2021 13:59-0400 Respiratory rate 16 /min Pamella SANABRIA [facility] 12-09-2021 13:59-0400 Systolic blood pressure 118 mm[Hg] Pamella SANABRIA [facility] Encounters Encounter Date Encounter Type Care Provider Facility Start: 06-04-2024 End: 06-04-2024 ambulatory Ari Sellers MD Facility:[facility] Start: 05-31-2024 ambulatory [facility] Start: 05-09-2024 ambulatory [facility] Start: 04-27-2024 ambulatory [facility] Start: 03-06-2024 ambulatory [facility] Start: 01-31-2024 ambulatory [facility] Start: 01-24-2024 ambulatory [facility] Start: 12-19-2023 End: 12-20-2023 ambulatory Cristiane Gutiérrez Facility:[facility] Start: 12-02-2023 ambulatory [facility] Start: 10-25-2023 End: 10-25-2023 ambulatory IRMA SUDHA Not Available Start: 08-25-2023 End: 08-25-2023 ambulatory IRMA SUDHA Not Available Start: 10-15-2022 Orders Only Glenroy Syed RESIDENTIAL ELECTRICIAN.PROPERTY AND SUPPLY OFFICER Work Phone: Neurology Comment on above: 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 (Primary Dx) Start: 10-14-2022 End: 10-14-2022 ambulatory GLENROY SYED Facility:[facility] Start: 09-09-2022 ambulatory Mauri Ross RT(Matteo) Ra soto Comment on above: Radiology MRI Start: 09-09-2022 Patient encounter procedure Mauri EASON (R) Start: 09-02-2022 End: 09-02-2022 ambulatory ELENA GUAN Facility:[facility] Start: 08-24-2022 End: 08-24-2022 ambulatory [facility] Facility:[facility] Start: 08-24-2022 End: 08-24-2022 Patient encounter procedure Janell Sy MD Work Phone: Cardiology Comment on above: KANG (obstructive sle ep apnea) (Primary Dx); Dizziness; Palpitations; Obesity, morbid, BMI 40.0-49.9 (HCC); SVT (supraventricular tachycardia) ([facility]); Chronic fatigue; Vitamin D deficiency Start: 08-20-2022 Orders Only Len VINCENTPROPERTY AND SUPPLY OFFICER Work Phone: Neurology Comment on above: Ocular migraine (Dinora andres Dx) Start: 08-19-2022 End: 08-19-2022 ambulatory [facility] Neurology Comment on above: Neuro Ophthalmologis t Start: 08-16-2022 ambulatory [facility] Neurology Comment on above: MRI Start: 08-12-2022 End: 08-12-2022 ambulatory [facility] Facility:[facility] Start: 08-12-2022 End: 08-12-2022 ambulatory Cramen Seese PT Work Phone: Physical Therapy Comment on above: Dizziness (Primary D x); Cervicalgia; Headaches Start: 08-05-2022 End: 08-05-2022 ambulatory [facility] Facility:[facility] Start: 08-05-2022 End: 08-05-2022 ambulatory Carmen Seese PT Work Phone: Physical Therapy Comment on above: Dizziness (Primary D x); Cervicalgia; Headaches Start: 07-29-2022 End: 07-29-2022 ambulatory WM RODRIGUEZ Facility: Start: 07-21-[address] MERT LAMA Facilit y:[facility] Start: 07-07-2022 Telephone encounter Glenroy rodriguez RESIDENTIAL ELECTRICIAN.PROPERTY AND SUPPLY OFFICER Work Phone: Neurology Comment on above: Received Outside Med ical Records Start: 07-07-2022 End: 07-07-2022 ambulatory GLENROY SYED Facility:[facility] Start: 07-07-2022 End: 07-07-2022 Patient encounter procedure Glenroy Syed APRN.PROPERTY AND SUPPLY OFFICER Work Phone: Neurology Comment on above: Dizziness [...] Patient encounter procedure Pamella SANABRIA General Surgery [facility] Start: 11-25-2021 End: 11-26-[address] MERT LAMA Facility:[facility] Start: 11-23-2021 Encounter for genera l adult medical examination without abnormal findings DR MERT LAMA [facility] Start: 11-19-2021 End: 11-20-[address] MERT LAMA Facility:[facility] Start: 11-19-2021 End: 11-20-2021 Encounter for general adult medical examination without abnormal findings DR MERT LAMA Facility:[facility] Start: 11-17-2021 End: 11-18-2021 ambulatory MERT LAMA Facility:[facility] Start: 11-14-2021 End: 11-15-2021 ambulatory ANU CABAN Facility:[facility] Start: 10-08-2021 End: 10-08-2021 ambulatory WM RODRIGUEZ Facility:[facility] Start: 06-17-2021 End: 06-18-2021 ambulatory MERT LAMA Facility:[facility] Start: 04-16-2021 End: 05-23-2021 ambulatory MERT LAMA Facility:[facility] Start: 12-05-2020 End: 12-06-2020 ambulatory MERT LAMA Facility:[facility] Procedures Date Procedure Procedure Detail Performing Clinician Start: 08-24-2022 Ecg routine ecg w/le ast 12 lds i&r only [facility] Provider Start: 12-05-2020 ANESTH KNEE AREA SURGERY MERT LAMA Start: 12-05-2020 REMOVE FEMUR LESION CARLOS SAMAN BRENNAN Start: 11-28-2020 Antibody screen MERT CHOUDHARY GHAr Comment on above: Performed By: #### 6 [id number] #### [address] Start: 11-04-2020 Cystourethroscopy wi th dilation of urethral stricture Pamella SANABRIA Abdominal hysterectomy Wael rodrgiuez DANIELE Bilateral complete salpingectomy Pamella SANABRIA Cardiac radiofrequen cy ablation using ultrasound guidance Pamella SANABRIA Cholecystectomy Pamella SANABRIA Excision of osteochondroma M nicolle DANIELE History of ankle surgery Carlos saman SANABRIA Plan of Treatment Date Care Activity Detail Author Start: 08-08-2022 DEPRESSION ASSESSMENT DEPRESSION ASS [facility] Start: 07-07-2022 End: 09-06-2022 25-hydroxyvitamin D3 [Mass/volume] in Serum or Plasma [facility] Work Phone: Comment on above: Expected: 07/07/2022 , Expires: 09/06/2022 Start: 07-07-2022 End: 09-06-2022 ESEQUIEL BY IFA WITH REFLEX [facility] Work Phone: Comment on above: Expected: 07/07/2022 , Expires: 09/06/2022 Start: 04-08-2022 Influenza vaccination INFLUENZA (#1) [facility] Start: 08-08-2021 [facility]ION [facility] Start: 11-05-2020 COVID-19 VACCINE (3 - Booster for Giancarlo series) COVID-19 VACCINE (3 - Booster for Giancarlo series) [facility] Start: 2012 HPV TESTING HPV TESTING [facility] Start: 11-30-2003 PAP TESTING PAP TESTING [facility] Start: 2001 Urine microalbumin profile DTA P,TDAP,TD (1 - Tdap) [facility] Start: 2000 HEPATITIS C SCREENING HEPATITIS C SC REENING [facility] Start: 2000 HIV SCREENING HIV SCREENING [facility] Start: 1982 HEPATITIS B (1 of 3 - 3-dose series) HEPATITIS B (1 of 3 - 3-dose series) [facility] End: 08-24-2023 ECG COMPLETE ECG COMPLETE ECG Routine Dizziness Palpitations Obesity, morbid, BMI 40.0-49.9 (HCC) 1 Occurrences starting 08/24/2022 until 08/24/2023 [facility] Work Phone: Comment on above: 1 Occurrences starti ng 08/24/2022 until 08/24/2023 ECG COMPLETE ECG COMPLETE ECG 08/24/2022 1:56 PM EST [facility] End: 07-07-2023 Echocardiography ECHO Cardiology Routine Palpitations 1 Occurrences starting 07/07/2022 until 07/07/2023 [facility] Work Phone: Comment on above: 1 Occurrences starti ng 07/07/2022 until 07/07/2023 End: 08-06-2023 Mri brain brain stem w/o w/contrast material MRI BRAIN WO/W IVCON Radiology Routine Dizziness Vision changes 1 Occurrences starting 07/07/2022 until 08/06/2023 [facility] Work Phone: Comment on above: 1 Occurrences starti ng 07/07/2022 until 08/06/2023 End: 09-15-2023 Mri spinal canal cervical w/o & w/contr matrl MRI CERVICAL SPINE WO/W IVCON Radiology Routine Dizziness Vision changes Cervicalgia Disturbance of skin sensation 1 Occurrences starting 08/16/2022 until 09/15/2023 [facility] Work Phone: Comment on above: 1 Occurrences starti ng 08/16/2022 until 09/15/2023 [facility] Immunizations Immunization Date Immunization Notes Care Provider Tayo phillipsedd 09-10-2020 SARS-CoV-2 (COVID-19 ) Ad26 vaccine, recombinant Pamella NILL [facility] 08-12-2020 SARS-CoV-2 (COVID-19 ) Ad26 vaccine, recombinant Pamella NILL [facility] Payers Date Payer Category Payer Unknown [id number] 2021 Unknown [id number] 1982 Unknown [id number] 2.16.8 [id number] 1982 Unknown [id number] 2.16.8 40.1.944742.3.579.2.647 1982 Unknown [id number] 2.16.8 40.1.427287.3.579.2.647 1982 Unknown [id number] 2.16.8 40.1.333127.3.579.2.647 1982 Unknown [id number] 2.16.84 0.1.599630.3.579.2.593 1982 Unknown [id number] 2.16.84 0.1.599868.3.579.2.593 1982 Unknown [id number] 2.16.84 0.1.389204.3.579.2.593 1982 Unknown [id number] 2.16.84 0.1.530637.3.579.2.593 1982 Unknown [id number] 2.16.84 0.1.284097.3.579.2.593 1982 Unknown [id number] 2.16.84 0.1.473791.3.579.2.593 1982 Unknown [id number] 2.16.84 0.1.753363.3.579.2.593 1982 Unknown [id number] 2.16.84 0.1.601430.3.579.2.593 1982 Unknown [id number] 2.16.84 0.1.390522.3.579.2.593 1982 Unknown [id number] 2.16.84 0.1.204830.3.579.2.593 1982 Unknown [id number] 2.16.84 0.1.452456.3.579.2.593 1982 Unknown [id number] 2.16.84 0.1.482273.3.579.2.593 1982 Unknown [id number] 2.16.84 0.1.604902.3.579.2.593 1982 Unknown [id number] 2.16.84 0.1.722568.3.579.2.593 1982 Unknown [id number] 2.16.84 0.1.621408.3.579.2.593 1982 Unknown [id number] 2.16.84 0.1.846858.3.579.2.1259 1982 Unknown [id number] 2.16.84 0.1.377616.3.579.2.1259 1982 Unknown [id number] 2.16.8 40.1.608902.3.579.2.727 1982 Unknown [id number] 2.16. 840.1.053913.3.579.2.196 1959 Unknown [id number] Social History Date Type Detail Facility Start: 12-09-2021 End: 07-07-2022 Tobacco smoking status Never smoked tobacco (finding) [facility] Tobacco smoking status Never [facility] Sex Assigned At Female [facility] Start: 07-07-2022 Tobacco use and exposure Smokeless tobacco non-user [facility] Start: 1980 Sex Assigned At Not on file [facility] Start: 06-27-2022 End: 07-07-2022 Exposure to SARS-CoV-2 (event) Not sure [facility] Start: 08-24-2022 Alcohol intake Current drinke r of alcohol (finding) [facility] Start: 08-24-2022 Alcohol Comment occasionally 1 -2 times a months 2-3 drinks [facility] Clinical Notes 12-30-2021 to 10-14-2022 RT [place](R) - 09/09/2022 2:11 PM Marilyn Sy MD - 08/24/2022 1:45 PM ESTTelephone Encounter - Glenroy Syed APRN.CNP - 08/16/2022 8:28 AM Elio Johnson PT - 08/12/2022 2:51 PM EST Note Date & Type Note Facility 10-14-2022 Note HNO ID: [id number] Author: RT Mary(R) Service: ? Author Type: [...] October 14, 2022 4:55 PM [facility] 10-14-2022 Note HNO ID: [id number] Author: Papa Rea RN Service: Radiology Author [...] 14, 2022 TIME: 3:20 PM [facility] 09-09-2022 Note HNO ID: [id number] Author: RT [place](R) Service: ? Author Type: [...] TIME: 2:11 PM PAGER/CONTACT #: [facility] 09-09-2022 History of Present illness Narrative [...] PM PAGER/CONTACT #: documented in this encounter [facility] 08-24-2022 Note HNO ID: [id number] Author: Janell Sy MD Service: ? Author Type: Physician Type: Progress Notes Filed: 08/24/2022 2:17 PM Note Text: [facility] [place] SECTION OF REGIONAL CARDIOLOGY OUTPATIENT VISIT DATE [...] Cardiac work-up includes: Echocardiogram on 05/19/2020 at [facility] showed normal ejection fraction. No [...] ECG COMPLETE 4. Obesity, morbid, BMI 40.0-49.9 ([facility]) E66.01 ECG COMPLETE 5. SVT (supraventricular tachycardia) ([facility]) I47.1 6. Chronic fatigue R53.82 [...] U (more content not included)... [facility] 08-24-2022 History of Present illness Narrative Images from the original note were not included. [facility] [place] SECTION OF REGIONAL CARDIOLOGY OUTPATIENT VISIT DATE [...] Cardiac work-up includes: Echocardiogram on 05/19/2020 at [facility] showed normal ejection fraction. No [...] ECG COMPLETE 4. Obesity, morbid, BMI 40.0-49.9 ([facility]) E66.01 ECG COMPLETE 5. SVT (supraventricular tachycardia) ([facility]) I47.1 6. Chronic fatigue R53.82 [...] twice daily.^Disp: ^Rfl: documented in this encounter [facility] 08-19-2022 Note HNO ID: [id number] Author: Mauri Chun OD Service: ? Author Type: QUALITY DIRECTOR Type: Progress Notes Filed: 08/19/2022 10:22 AM Note Text: Ocular health is unremarkable with no abnormalities. Normal ON appearance Ophthalmic migraines Glasses Rx given with slight prism [facility] 08-16-2022 Miscellaneous Notes signed We can add it to fully evaluate her symptoms. -LP documented in this encounter [facility] 08-12-2022 Note HNO ID: [id number] Author: Carmen Johnson PT Service: ? Author [...] (timed/untimed): 62 Carmen Johnson, PT [facility] 08-12-2022 History of Present illness Narrative [...] Carmen Johnson PT documented in this encounter [facility] 08-05-2022 Note HNO ID: [id number] Author: Carmen Johnson PT Service: ? Author [...] Planned: 8 Planned Treatment Interventions: Therapeutic exercise (32216);Neuromuscular re-education (94438);Manual therapy (33374);Therapeutic activities (69267);Self-intermediate management (14668);Patient/Family/Caregiver Education;Gait Training (74338);Canalith Repositioning Maneuvers (80172) PLAN FOR NEXT VISIT: Detailed neck exam [...] contra (more content not included)... [facility] 08-05-2022 History of Present illness Narrative [...] Planned: 8 Planned Treatment Interventions: Therapeutic exercise (20707);Neuromuscular re-education (89650);Manual therapy (64501);Therapeutic activities (09067);Self-intermediate management (69505);Patient/Family/Caregiver Education;Gait Training (84699);Canalith Repositioning Maneuvers (14353) PLAN FOR NEXT VISIT: Detailed neck exam [...] present Head Shake: Negative Positional Testing Right [place]: No nystagmus;Asymptomatic Left [place]: No nystagmus;Asymptomatic Right [place]: No nystagmus;Asymptomatic [...] Demonstration;Requires Review/Additional Education TREATMENT: PT Treatment Interventions: Self-Mcc Management;Therapeutic Exercise Evaluation Therapeutic Exercise: 1: c/s retractions x 10, cues for technique Skilled Intervention: Patient was educated in proper exercise technique and purpose for exercises. Patient education as noted. Self-Mcc Management: 1: Educated regarding potential multifactorial cause [...] Carmen Johnson PT documented in this encounter [facility] 11-30-2022 Note HNO ID: [id number] Author: Glenroy Syed APRN.SARIKA Service: ? Author Type: Nurse Practitioner Type: Progress Notes Filed: 07/07/2022 12:28 PM Note Text: [facility] General Neurology New Patient Evaluation CHIEF [...] over a month. She has seen an legal entity controller and was told she was having occular migraine by her executive secretary social welfare. A couple times a month she gets [...] dose.N (more content not included)... [facility] 07-07-2022 Miscellaneous Notes Noted. Provider notified. Received medical records from [facility]. Uploaded to chart and forwarded for review. documented in this encounter [facility] 07-07-2022 Instructions Glenroy Syed APRN.SARIKA - 07/07/2022 9:06 AM EST Plan: Baseline labs MRI Brain for multiple symptoms ECHO for palpitations and arrhythmias Aspirin 81mg daily in the setting of known arrhythmias Consult to [place] for dizziness Consult to Cardiology for second opinion Consult to ophthalmology Follow up after testing documented in this encounter [facility] 07-07-2022 History of Present illness Narrative Images from the original note were not included. [facility] General Neurology New Patient Evaluation CHIEF [...] over a month. She has seen an legal entity controller and was told she was having occular migraine by her executive secretary social welfare. A couple times a month she gets [...] Finger Abduction (U) 5 Finger Abduction 5 Sap Basis 5 Sap Basis 5 Right Lower Extremity: (of 5) Left [...] over a month. She has seen an legal entity controller and was told she was having occular migraine by her executive secretary social welfare. A couple times a month she gets [...] [place] reccommended. Patient wanting second opinion from executive secretary social welfare [facility], referral placed. Unlikely autonomic dysfunction with unremarkable tilt and orthostatic vitals in office unconvincing (did not take BB today). Additionally, with visual changes, recommended seeing neuro supervisor sign shop. Will obtain additional labs as well. Follow [...] which included preparing to see the patient, [id number] patient care, completing clinical documentation, obtaining and/or reviewing separately obtained history, performing a medically appropriate examination, counseling and educating the patient/family/caregiver, ordering medications, tests, or procedures, and care coordination (not separately reported). Glenroy Syed APRN.[facility] General Neurology [address] [place] [address] Appointment: [phone] In regards to blood work, testing, and radiology reports these are released automatically to the patients. We do not comment on most testing on [employer] in a message or commentary unless there [...] your PCP/referring physician documented in this encounter [facility] 03-16-2022 Note EXAM: CHEST 2 VIEWS [...] by: BETTY MORALES Date: 2022-03-16 18:13 [facility] 12-30-2021 Note [facility] [place], [place] NAME: KAILA VASQUEZ DATE OF : MEDICAL REC#: [id number] TEACHING YOUNG: [address] [facility], TRANSADMIT DATE: 12/30/2021 09:02:00 AUDIO VIDEO TECHNICIAN DATE: 12/30/2021 21:00 DICTATING PHYSICIAN: PAMELLA [...] DR PAMELLA SANABRIA . 01/06/2022 08:31:00 [facility] Evaluation + Plan note No data available for this section General Surgery [place] Evaluation note Diagnosis Dizziness- Primary Dizziness and giddiness Migraine aura without headache Migraine with aura, without mention of intractable migraine without mention of status migrainosus Palpitations Chronic fatigue Other malaise and fatigue Vision changes Unspecified visual disturbance Disturbance of skin sensation [facility] Diagnosis Dizziness- Primary Dizziness and giddiness Cervicalgia Headaches [facility] Diagnosis Dizziness- Primary Dizziness and giddiness Cervicalgia Headaches [facility] Diagnosis Cervicalgia- Primary Dizziness Dizziness and giddiness Vision changes Unspecified visual disturbance Disturbance of skin sensation [facility] Diagnosis Ocular migraine- Primary Other forms of migraine, without mention of intractable migraine without mention of status migrainosus [facility] KANG (obstructive sleep apnea)- Primary Obstructive sleep apnea (adult) (pediatric) Dizziness Dizziness and giddiness Palpitations Obesity, morbid, BMI 40.0-49.9 (HCC) Morbid obesity SVT (supraventricular tachycardia) (HCC) Other specified cardiac dysrhythmias Chronic fatigue Other malaise and fatigue Vitamin D deficiency Unspecified vitamin D deficiency [facility] Diagnosis Degeneration of intervertebral disc of cervical region with osteophyte of cervical vertebra- Primary documented in this encounter [facility] Discharge instructions No data available for this section General Surgery [place] Reason for referral (narrative)* Outpatient Procedure (Routine) - Authorized Specialty Diagnoses / Procedures Referred By Eric evangelista Referred To Contact [facility] [place] Diagnoses Dizziness Palpitations Obesity, morbid, BMI 40.0-49.9 (HCC) Procedures ECG COMPLETE ECG ROUTINE ECG W/LEAST 12 LDS W/I&R Janell Sy MD [address] [place] [address] [facility] [address] [address] Referral ID Status Reason Start Date Expiration Date Visits Requested Visits Authorized [id number] Authorized Auto-Generat ed Referral 08/24/2022 08/24/2023 1 1 [facility] Summary Purpose Family History No Family [...] Referral Specialty Diagnoses / Procedures Referred By Eric evangelista Referred To Contact [facility] [place] Diagnoses Degeneration of intervertebral disc of cervical region with osteophyte of cervical vertebra Procedures CONSULT TO [facility] OFFICE/OUTPATIENT [facility] HIGH MDM 60-74 MINUTES Glenroy Syed, RESIDENTIAL ELECTRICIAN.PROPERTY AND SUPPLY OFFICER [address] [place] [address] Referral ID Status Reason Start Date Expiration Date Visits Requested Visits Authorized [id number] Authorized PCP Requested Referral 10/15/2022 10/15/2023 1 1 Specialty Diagnoses / Procedures Referred By Contac t Referred To Contact Ophthalmology Diagnoses Ocular migraine Procedures CONSULT TO OPHTHALMOLOGY OFFICE/OUTPATIENT [facility] 60-74 MINUTES Len Shea, RESIDENTIAL ELECTRICIAN.PROPERTY AND SUPPLY OFFICER [address] [facility] [id number] [place] [address] Josefina Grimes MD [address] [id number] Referral ID Status Reason Start Date Expiration Date Visits Requested Visits Authorized [id number] Authorized PCP Requested Referral 08/20/2022 08/20/2023 1 1 Specialty Diagnoses / Procedures Referred By Contac t Referred To Contact Cardiology Diagnoses Dizziness Palpitations Procedures CONSULT TO CARDIOLOGY OFFICE/OUTPATIENT [facility] 60-74 MINUTES Glenroy Syed, RESIDENTIAL ELECTRICIAN.PROPERTY AND SUPPLY OFFICER [address] [place] [address] Referral ID Status Reason Start Date Expiration Date Visits Requested Visits Authorized [id number] Authorized PCP Requested Referral 2 07/07/2023 1 1 Specialty Diagnoses / Procedures Referred By Contac t Referred To Contact MR IMAGING Diagnoses Dizziness Vision changes Procedures MRI BRAIN WO/W IVCON MRI BRAIN BRAIN STEM W/O W/CONTRAST MATERIAL Glenroy Syed, RESIDENTIAL ELECTRICIAN.PROPERTY AND SUPPLY OFFICER [address] [place] [address] Mr Imaging Referral ID Status Reason Start Date Expiration Date Visits Requested Visits Authorized [id number] Authorized Auto-Generat ed Referral 2 08/21/2022 1 1 Specialty Diagnoses / Procedures Referred By Contac t Referred To Contact Ophthalmology Diagnoses Vision changes Procedures CONSULT TO OPHTHALMOLOGY OFFICE/OUTPATIENT [facility] 60-74 MINUTES Glenroy Syed, RESIDENTIAL ELECTRICIAN.PROPERTY AND SUPPLY OFFICER [address] [place] [address] Josefina Grimes MD [address] [place] [address] Referral ID Status Reason Start Date Expiration Date Visits Requested Visits Authorized [id number] Authorized PCP Requested Referral 2 07/07/2023 1 1 Specialty Diagnoses / Procedures Referred By Contac t Referred To Contact [facility] Diagnoses Palpitations Procedures ECHO ECHO TTHRC R-T 2D W/WOM-MODE COMPL SPEC&COLR D Glenroy Syed, RESIDENTIAL ELECTRICIAN.PROPERTY AND SUPPLY OFFICER [address] [id number] [facility] [place] [address] [place] [address] Referral ID Status Reason Start Date Expiration Date Visits Requested Visits Authorized [id number] Authorized Auto-Generat ed Referral 2 07/07/2023 1 1 Additional Source Comments INFORMATION SOURCE (unrecogn ized section and content) DATE CREATED AUTHOR 11/24/2021 [facility] DATE CREATED AUTHOR AUTHOR'S ORGANIZ ATION 07/20/2022 [facility] DATE CREATED AUTHOR AUTHOR'S ORGANIZ ATION 09/06/2022 [facility] DATE CREATED AUTHOR AUTHOR'S ORGANIZ ATION 10/16/2022 [facility] DATE CREATED AUTHOR AUTHOR'S ORGANIZ ATION 10/26/2023 [facility] DATE CREATED AUTHOR AUTHOR'S ORGANIZ ATION 01/04/2024 [facility] DATE CREATED AUTHOR AUTHOR'S ORGANIZ ATION 06/02/2024 [facility] DATE CREATED AUTHOR AUTHOR'S ORGANIZ ATION 06/09/2024 [facility] Source Comments (unrecognize d section and content) In the event this informatio n is protected by the Federal Confidentiality of Alcohol and Drug Abuse Patient Records regulations: The Federal rules restrict any use of the information to criminally investigate or prosecute any alcohol or drug abuse patient.[facility] the event this information is protected by the Federal Confidentiality of Alcohol and Drug Abuse Patient Records regulations: The Federal rules restrict any use of the information to criminally investigate or prosecute any alcohol or drug abuse patient.[facility] the event this information is protected by the Federal Confidentiality of Alcohol and Drug Abuse Patient Records regulations: The Federal rules restrict any use of the information to criminally investigate or prosecute any alcohol or drug abuse patient.[facility] the event this information is protected by the Federal Confidentiality of Alcohol and Drug Abuse Patient Records regulations: The Federal rules restrict any use of the information to criminally investigate or prosecute any alcohol or drug abuse patient.[facility] the event this information is protected by the Federal Confidentiality of Alcohol and Drug Abuse Patient Records regulations: The Federal rules restrict any use of the information to criminally investigate or prosecute any alcohol or drug abuse patient.[facility] the event this information is protected by the Federal Confidentiality of Alcohol and Drug Abuse Patient Records regulations: The Federal rules restrict any use of the information to criminally investigate or prosecute any alcohol or drug abuse patient.[facility] the event this information is protected by the Federal Confidentiality of Alcohol and Drug Abuse Patient Records regulations: The Federal rules restrict any use of the information to criminally investigate or prosecute any alcohol or drug abuse patient.[facility] the event this information is protected by the Federal Confidentiality of Alcohol and Drug Abuse Patient Records regulations: The Federal rules restrict any use of the information to criminally investigate or prosecute any alcohol or drug abuse patient.[facility] the event this information is protected by the Federal Confidentiality of Alcohol and Drug Abuse Patient Records regulations: The Federal rules restrict any use of the information to criminally investigate or prosecute any alcohol or drug abuse patient.[facility] the event this information is protected by the Federal Confidentiality of Alcohol and Drug Abuse Patient Records regulations: The Federal rules restrict any use of the information to criminally investigate or prosecute any alcohol or drug abuse patient.[facility] Reason for Visit (unrecogniz ed section [...] Procedures NEW RS PT VESTIBULAR DIZZY Glenroy Syed APRN.PROPERTY AND SUPPLY OFFICER [address] [place] [address] Carmen Johnson, PT [address] [place] [address] Referral ID Status Reason Start Date Expiration Date Visits Re quested Visits Authorized [id number] Closed 08/08/2021 08/07/2022 30 30 Reason Comments Physical Therapy Specialty Diagnoses / Procedures Referred By Contac t Referred To Contact PHYSICAL THERAPY Diagnoses Dizziness Procedures Physical Therapy Glenroy Syed APRN.PROPERTY AND SUPPLY OFFICER [address] [place] [address] [address] [place] [facility] [address] [place] [address] Referral ID Status Reason Start Date Expiration Date V isits Requested Visits Authorized [id number] Pending Review 08/12/2022 11/10/2022 1 1 Reason Comments Establish Care Palpitations Dizziness Specialty Diagnoses / Procedures Referred By Contronald t Referred To Contact Cardiology Diagnoses Dizziness Palpitations Procedures CONSULT TO CARDIOLOGY OFFICE/OUTPATIENT [facility] 60-74 MINUTES Glenroy Syed, RESIDENTIAL ELECTRICIAN.PROPERTY AND SUPPLY OFFICER [address] [place] [address] Referral ID Status Reason Start Date Expiration Date V isits Requested Visits Authorized [id number] Closed PCP Requested Referral 07/07/2022 07/07/2023 1 1 Reason Comments Radiology MRI Care Teams (unrecognized sec tion and content) Drapery Head Former Relationship Specialty Start Date End Date Mert Lama MD [address] [place], [facility] Referring Family Medicine 06/10/22 Drapery Head Former Relationship Specialty Start Date End Date Mert Lama MD [address] [place] [address] Referring Family Medicine 06/10/22 Drapery Head Former Relationship Specialty Start Date End Date Mert Lama MD [address] [place] Referring Family Medicine 06/10/22 Drapery Head Former Relationship Specialty Start Date End Date Mert Lama MD [address] [place] Referring Family Medicine 06/10/22 Drapery Head Former Relationship Specialty Start Date End Date Mert Lama MD [address] [place] Referring Family Medicine 06/10/22 Drapery Head Former Relationship Specialty Start Date End Date Mert Lama MD [address] [place] Referring Family Medicine 06/10/22 Drapery Head Former Relationship Specialty Start Date End Date Mert Lama MD [address] [place] [address] Referring Family Medicine 06/10/22 Drapery Head Former Relationship Specialty Start Date End Date Mert Lama MD [address] [place] [address] Referring Family Medicine 06/10/22 FOR RECORDS PERTAINING [...] BE BASED ON THE PRIMARY CLINICAL RECORDS. [facility] [employer] provides no warranty or guarantee of the accuracy or completeness of information in this document.
[2024-06-12 06:48] VITALS: BP 125/85; PULSE 74; TEMP 36.2; O2SAT 98
[2024-06-12 07:31] VITALS: BP 135/80; BP 136/84; PULSE 66; PULSE 67; O2SAT 96; O2SAT 98
[2024-06-12] MEDS: BUPIVACAINE HCL 0.25% PF 25 MG/10 ML VIAL INJ (07:32)
--- NOTE | 2024-06-12 07:55 | W.PM.PROCNOT ---
Date of procedure: 06/12/24 Pre-op diagnosis: lumbar spondylosis Post-op diagnosis: same as pre-op Procedure: Bilateral lumbar 1/2, 2/3 medial branch block Under fluoroscopic guidance Solution injected: 2millilitersMarcaine 0.25% Anesthesia :none Immediate complications none Time out process compliant After informed consent obtained from the patient placed in the Prone proposition . area was prepped and draped in a sterile fashion using Cloraprep .25 gauge spinal needle inserted over each of the above mentioned target areas . [place] were directed towards the target under fluoroscopic guidance . after encountering each of the targets , no indication of intravascular intraneuronal or intrathecal needle tip placement. Then 0 .5 to 1 Milliliter was injected at each level. [place] removed postoperatively. patient transferred to recovery in stable condition to be discharged home after meeting criteria Anesthesia: Local Surgeon: Pedro Mccormick Condition: stable Disposition: PACU
== END 2024-06-12 07:40 | disposition home or self-care (01) ==
LOC: SURGOUT 06:40
PROVIDERS: PCP Family Medicine; Visit Provider Anesthesiology Pain Medicine
DX: M47.816 Spondylosis without myelopathy or radiculopathy, lumbar region (principal)
CPT/HCPCS: 64493; 64494; J0665

== ENCOUNTER 2024-06-14 07:52 | Outpatient (OUT) | payer BC, SELFPAY ==
--- NOTE | 2024-06-14 08:19 | P.CN_ITS ---
Consult Note: HPI Data of Consult Patient: known to practice within the last 3 years Consult date: 06/04/24 Requesting Physician: Deepika Alicia NP Primary Care Provider: LEON WILSON Consult Narrative Reason for consult: low back pain Narrative: 43yof who presents for assessment. notes low back pain that is higher than the pain she had prior to her ablation. states previous lumbar TPIs helped significantly. has continued in a series of provider directed home exercises for >6 weeks, without significant benefit. uses zanaflex as needed. denies adverse med side effects. recent bilateral L1-2 L2-3 MBB #1 provided 100% improvement in pain and function while anesthetized, >50% improvement ongoing. Continues to hav e myofascial pain and spasming. cc:: CC: Deepika Alicia NP Review of Systems ROS Status of ROS 10 or more systems reviewed and unremark able except as noted in history and below Musculoskeletal Reports: back pain and joint pain PFSH PFSH Medical History (Updated 06/14/24 @ 08:21 by Deepika Alicia NP) Arthritis ?M19.90 - Unspecified osteoarthritis, unspecified site (ICD-10) Anemia ?D64.9 - Anemia, unspecified (ICD-10) Acid reflux ?K21.9 - Gastro-esophageal reflux disease without esophagitis (ICD-10) Kidney stone ?N20.0 - Calculus of kidney (ICD-10) Irregular heart beat ?I49.9 - Cardiac arrhythmia, unspecified (ICD-10) Surgical History History of cardiac radiofrequency ablation ?Z98.890 - Other specified postprocedural states (ICD-10) History of ankle surgery ?Z98.890 - Other specified postprocedural states (ICD-10) History of hysterectomy ?Z90.710 - Acquired absence of both cervix and uterus (ICD-10) Hx of cholecystectomy ?Z90.49 - Acquired absence of other specified parts of digestive tract (ICD- 10) Meds Home Medications and Allergies Home Medications ?Medication ?Instructions ?Recorded ?Confirmed ?Type metoprolol tartrate 50 mg tablet 50 mg PO BID 12/30/23 06/12/24 History tizanidine 4 mg capsule (Zanaflex) 4 mg PO Q8H PRN muscle spasticity 12/30/23 06/12/24 Rx #20 caps Allergies Allergy/AdvReac Type Severity Reaction Status Date / Time No Known Drug Allergies Allergy Verified 03/27/24 07:03 Exam Constitutional Documenting provider has reviewed patient's vital signs: yes Common normals: no apparent distress, oriented x3, healthy appearing, alert and well nourished General appearance: cooperative HENRI Common normals: normocephalic, hearing grossly normal bilaterally and moist oral mucous membranes Head and scalp: normocephalic Eye Common normals: PERRL Pupil: PERRL Neck & C-Spine Common normals: full ROM General: normal visual inspection Chest Common normals: inspection of chest normal Respiratory Common normals: normal respiratory effort, no retractions and no use of accessory muscles Back & Pelvis Thoracic spine/upper back: pain with ROM, thoracic spinal tenderness, paraspinal muscle tenderness and paraspinal muscle spasm Lumbar spine/lower back: pain with ROM, lumbar spinal tenderness, paraspinal muscle tenderness, paraspinal muscle spasm and straight leg raise negative bilaterally Sacroiliac joints: SI joint(s) abnormal Other: right sij positive chanel(patricks), gaenslens, thigh thrust, compression test notable myofascial spasming and trigger points to bilateral latissimus dorsi muscles strength 5/5 in BLE sensation intact BLE Extremity Common normals: normal to inspection and full ROM Neuro Common normals: oriented x3, CN's II-XII intact bilaterally, moves all extremities, no focal motor deficits, no sensory deficits noted, deep tendon reflexes 2+ bilaterally and gait normal Sensorium/orientation: alert Motor exam: strength 5/5 throughout and no movement abnormalities noted Psych Common normals: mental status grossly normal, thought process normal, cooperative, affect normal, speech normal and activity/motor behavior normal Speech: normal speech Thought process: normal thought process Results Additional Findings Additional findings: If on a controlled substance or opioids, I have checked an [place] report on this patient and there are no aberrancies noted in the prescribing history.??If on a controlled substance or opioid a drug screen was completed and reviewed within the last year, and if there has not been a drug screen completed we ordered one today to monitor higher risk, state monitored pain medication use. As part of providing excellent, safe, comprehensive care, the following was completed at our patient's visit: 1. A medication reconciliation and review to ensure accurate knowledge of current/active medications, including asking our patients to inform us about any [id number] medications or herbal remedies/nutritional supplements/alternative remedies. 2. A review to specifically ensure our patients have had annual screening for screening for depression, screening for tobacco use, and screening for unhealthy alcohol use. For concerning screenings had a discussion with the patient, p rovided patient education, and recommended follow-up with primary care provider when appropriate. If patient noted with a risk of falling, they received education on strength, gait, and balance training to prevent future risk of falling. Assessment and Plan Assessment and Plan (1) Lumbar spondylosis: (2) Sacroiliitis: (3) Myofascial pain: (4) Lumbar degenerative disc disease: Plan defer bilateral L1-2 L2-3 MBB #2 at this time, has had 2 RFAs since 03/13/24 in lumbar spine. zynex TENS with NMES discussed and ordered for chronic low back pain, myofascial pain, lumbar DDD to be utilized QID PRN pain continue HEP as tolerated continue current medications, consider rotation to baclofen if needed f/u PRN at this time
== END 2024-06-14 07:53 | disposition home or self-care (01) ==
LOC: PM 07:52
PROVIDERS: PCP Family Medicine; Visit Provider Nurse Practitioner
DX: M47.816 Spondylosis without myelopathy or radiculopathy, lumbar region (principal); M46.1 Sacroiliitis, not elsewhere classified; M79.18 Myalgia, other site; M51.369 Other intervertebral disc degeneration, lumbar region without mention of lumbar back pain or lower extremity pain
CPT/HCPCS: G0463

== ENCOUNTER 2024-09-12 15:40 | Outpatient (OUT) | payer BC, SELFPAY ==
--- OUTSIDE RECORDS SUMMARY | 2024-09-11 15:05 | XMS_ITS | CCD ---
Author Organization [facility] Care Team Providers Care Special Systems Technician Name Role Phone MERT LAMA Referring Unavailable PAMELLA BRENNAN Attending Unavailable MIKA, PAMELLA Ang Surgeon Unavailable PAMELLA BRENNAN Admitting Unavailable IA Procedure Practitioner Unavailab MERT Caban Primary Care [...] Primary Care Physician Mert Lama MD Unavailable [phone] DANIEL, DR MERT Forrest Primary Care Unavailable [...] Forrest Primary Care Unavailable LAMA, DR MERT Frorest Consulting Unavailable LAMA, DR MERT Forrest Attending [...] Referring Unavailable POULTON, GLENROY Referring Unavailable SYJANELL JEAN Attending Unavailable MAURI CHUN Attending Unavailable POULTON, GLENROY Referring Unavailable IRMA HALEY Attending Unavailable IRMA HALEY Attending Unavailable Cristiane Gutiérrez Attending Unavailable Marlo PIZARRO, Ari Fuller Attending Unavailable MANUEL, JONNY Referring Unavailable MANUEL, JONNY Referring Unavailable MANUEL, JONNY Referring Unavailable SUE, VISHAL Referring Unavailable MANUEL, JONNY Referring Unavailable SUE, VISHAL Referring Unavailable SUE, VISHAL Referring Unavailable MANUEL, JONNY Referring Unavailable SUE, VISHAL Referring Unavailable MANUEL, JONNY Referring Unavailable SUE, [...] Comment on above: Take 1 capsule by [facility] once daily. 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] Onset: 09-06-2022 Episodic Other [...] Range Facility ED Note-Physicianon 01-03-20 ED Note-Physician [id number]#1.00 TIFF [facility] RAD - MRI Reporton RAD - MRI Report [id number]#1.0 0TIFF [facility] RAD - MRI Report [id number]#1.0 0TIFF [facility] RAD - MRI Report [id number]#1.00 TIFF [facility] RAD - MRI Report [id number]#1.00 TIFF [facility] RAD - MRI Report [id number]#1.0 0TIFF [facility] RAD - MRI Report [id number]#1.00 TIFF [facility] Physician Orderon 12-22-2023 Physician Order [id number]#1.00 TIFF Normal [facility] Provider Letteron 12-21-2023 Provider Letter December 21, 2023 KAILA VASQUEZ [address] [place] [address] : 1980 To Whom It May Concern, Please excuse above patient from work. Date of Illness: From: 12/19/2023 To: 12/21/2023 May Return to Work On: 12/22/2023 Sincerely, JERMAIN Stewart-Ni [address] [address] Normal [facility] Lab Reportson 12-20-2023 Lab Reports [id number]#1.00 TIFF [facility] Physician Orderon 12-20-2023 Physician Order [id number]#1.00 TIFF [facility] RAD - MISCon 12-20-2023 RAD - MISC [id number]#1.00 TIFF [facility] Ambulatory Visit Summaryon 0 12-19-2023 Ambulatory [...] sciatica BMI 40.0-44.9, adult Non-smoker Pickup at [facility]/pharmacy #[id number] New meloxicam (meloxicam 15 mg Tab) 1 Tablets By Mouth Every day Low back pain with sciatica BMI 40.0-44.9, adult Non-smoker Pickup at [facility]/pharmacy #6177 New methylPREDNISolone (Medrol 4 mg Tab) 1 Packets By Mouth As Directed Low back pain with sciatica BMI 40.0-44.9, adult Non-smoker Duration: 6 Days as directed on package labeling [id number] Unchanged metoprolol (Metoprolol tartrate 50 mg Tab) 1 Tablets By Mouth 2 times a day Pharmacy Information [facility]/pharmacy #[id number]: [address], [place] [id number] [phone] Medications and Immunizations Administered Given ketorolac 30 [...] [facility]enton 12-19-2023 Consent [id number]#1.[address] [facility] Medicine Office/Clini c Noteon 12-19-2023 Family Medicine [...] labs and she will have done at [facility] she works there Health Maintenance UTD: Colonoscopy: 2021 normal Mammogram: Has order Pelvic/Pap: 12/2023 normal Acute: Current issues/complaints: Pain characteristics: Pain location: low back pain radiating to bilateral hips sciatica down both legs Intensity:910 Onset: 1 day ago Pt states when she saw Dr Lmaa he had wanted her to see a [...] sit, lay down. Had x-ray done at [facility] for spine over a year or [...] Bedtime for spasm, 20 cap(s), Refill(s) 0, [facility]/pharmacy #6177, 165.1, cm, 12/19/23 13:17:00 EDT, Height/Length Dosing, 114.6, kg, 12/19/23 13:17:00 EDT, Weight Dosing ketorolac, 30 mg = 1 mL, Injection, IntraMuscular, Once, Stop date 12/19/23 13:35:00 EDT, Routine, Start date 12/19/23 13:35:00 EDT, 12/19/23 13:35:00 EDT meloxicam, 15 mg = 1 tab(s), Oral, Daily, # 30 tab(s), Refills(s) 0, Pharmacy: [facility]/pharmacy #6177, 165.1, cm, 12/19/23 13:17:00 EDT, Height/Length Dosing, 114.6, kg, 12/19/23 13:17:00 EDT, Weight Dosing methylPREDNISolone, = 1 packet(s), Oral, As Directed, as directed on package labeling, X 6 day(s), # 21 tab(s), Refills(s) 0, Pharmacy: [facility]/pharmacy #6177, 165.1, cm, 12/19/23 13:17:00 EDT, [...] Daily, # 30 tab(s), Refills(s) 0, Pharmacy: [facility]/pharmacy #6177, 165.1, cm, 12/19/23 13:17:00 EDT, Height/Length Dosing, 114.6, kg, 12/19/23 13:17:00 EDT, Weight Dosing methylPREDNISolone, = 1 packet(s), Oral, As Directed, as directed on package labeling, X 6 day(s), # 21 tab(s), Refills(s) 0, Pharmacy: [facility]/pharmacy #6177, 165.1, cm, 12/19/23 13:17:00 EDT, Height/Length Dosing, 114.6, kg, 12/19/23 13:17:00 EDT, Weight Dosing 3. Non-smoker (Z78.9: Other specified health status) continue not smoking Ordered: cyclobenzaprine, 15 mg, 1 cap(s), Oral, Bedtime for spasm, 20 cap(s), Refill(s) 0, [facility]/pharmacy #6177, 165.1, cm, 12/19/23 13:17:00 EDT, Height/Length Dosing, 114.6, kg, 12/19/23 13:17:00 EDT, Weight Dosing ketorolac, 30 mg = 1 mL, Injection, IntraMuscular, Once, Stop date 12/19/23:35:00 EDT, Routine, Start date 12/19/23 13:35:00 EDT, 12/19/23 13:35:00 EDT meloxicam, 15 mg = 1 tab(s), Oral, Daily, # 30 tab(s), Refills(s) 0, Pharmacy: [facility]/pharmacy #[id number], 165.1, cm, 12/19/23 13:17:00 EDT, Height/Length Dosing, 114.6, kg, 12/19/23 13:17:00 EDT, Weight Dosing methylPREDNISolone, = 1 packet(s), Oral, As Directed, as directed on package labeling, X 6 day(s), # 21 tab(s), Refills(s) 0, Pharmacy: [facility]/pharmacy #6177, 165.1, cm, 12/19/23 13:17:00 EDT, Height/Length Dosing, 114.6, kg, 12/19/23 13:17:00 EDT, Weight Dosing Follow-up No qualifying data available Problem List/Past Medical History Ongoing Anemia Anxiety (more content not included)... [facility] Comment on above: Result Comment: Elec tronically Signed By: Cristiane Brasher\.br\Date and Time Signed: 12/19/23 13:59 EDT Physician Orderon 12-19-2023 Physician Order [id number]#1.00 TIFF [facility] Consultation Noteon 02-15-20 Consultation Note [id number]#1.0 0CD:127 [facility] Consultation Noteon 02-05-20 Consultation Note [id number]#1.0 0CD:127 [facility] Comment on above: Other Comment: INCOM PLETE FAX.NDW Formson 02-02-2023 Forms [id number]#1.0 0CD:127 [facility] Consultation Noteon 01-29-20 Consultation Note [id number]#1.00 CD:127 [facility] Cardiovascular Reporton 01-06 Cardiovascular Report [id number]#1.0 0CD:127 [facility] MRI BRAIN WO/W IVCONon 10-14 MRI [...] cord. No mass or pathologic intradural enhancement. Horticulture Professor: NARCISO Transcribe Date/Time: Oct 14 2022 8:43P Dictated by : UNIQUE ANDERSON MD This examination was interpreted and the report reviewed and electronically signed by: UNIQUE ANDERSON MD on Oct 14 2022 8:51PM EST [id number] Normal [facility] MRI CERVICAL SPINE WO/W IVCO Non 10-14-2022 [...] cord. No mass or pathologic intradural enhancement. Horticulture Professor: NARCISO Transcribe Date/Time: Oct 14 2022 8:43P Dictated by : UNIQUE ANDERSON MD This examination was interpreted and the report reviewed and electronically signed by: UNIQUE ANDERSON MD on Oct 14 2022 8:51PM EST [id number] Normal [facility] CBC AUTO DIFFon 09-02-2022 BASO # 0.1 103/ul Normal 0.0-0.1 [facility] Comment on above: Performed By: #### C MP, TSH, HSTROPN #### [facility] [address] [address] [address] Christos Fallon Basophils/100 WBC (Bld) 0.5 % Normal 0.2-2.0 [facility] Comment on above: Performed By: #### C MP, TSH, HSTROPN #### [facility] [address] [place], [place] [address] Dr. Christos Fallon EO # 0.2 103/ul Normal 0.0-0.7 [facility] Comment on above: Performed By: #### C MP, TSH, HSTROPN #### [facility] [address] [place] [address] Dr. Christos Fallon Eosinophils/100 WBC (Bld) 2.3 % Normal 0.9-7.0 [facility] Comment on above: Performed By: #### C MP, TSH, HSTROPN #### [facility] [address] [place] [address] Dr. Christos Fallon Erythrocyte distribution width (RBC) [Ratio] 13.0 % Normal 11.0-15.0 [facility] Comment on above: Performed By: #### C MP, TSH, HSTROPN #### [facility] [address] [place] [address] Dr. Christos Fallon Hematocrit (Bld) [Volume fraction] 43.0 % Normal 36.0-48.0 [facility] Comment on above: Performed By: #### C MP, TSH, HSTROPN #### [facility] [address] [place] [address] Dr. Christos Fallon Hemoglobin (Bld) [Mass/Vol] 13.9 g/dL Normal 12.0-16.0 [facility] Comment on above: Performed By: #### C MP, TSH, HSTROPN #### [facility] [address] [place] [address] Dr. Christos Fallon IG # 0.03 10e3/ul Normal 0.00-0.03 [facility] Comment on above: Performed By: #### C MP, TSH, HSTROPN #### [facility] [address] [place] [address] Dr. Christos Fallon IG % 0.3 % Normal 0.0-0.5 [facility] Comment on above: Performed By: #### C MP, TSH, HSTROPN #### [facility] [address] [place] [address] Dr. Christos Fallon LYMPH # 2.8 103/ul Normal 1.2-3.8 [facility] Comment on above: Performed By: #### C MP, TSH, HSTROPN #### [facility] [address] [place] [address] Dr. Christos Fallon Lymphocytes/100 WBC (Bld) 29.6 % Normal 20.5-60.0 [facility] Comment on above: Performed By: #### C MP, TSH, HSTROPN #### [facility] [address] [place] [address] Dr. Christos Fallon MANUAL DIFF REQ NO Normal [facility] Comment on above: Performed By: #### C MP, TSH, HSTROPN #### [facility] [address] [place] [address] Dr. Christos Fallon MCH (RBC) [Entitic mass] 34.8 pg Critically high 26.7-34.0 [facility] Comment on above: Performed By: #### C MP, TSH, HSTROPN #### [facility] [address] [place] [address] Dr. Christos Fallon MCHC (RBC) [Mass/Vol] 32.3 g/dL Normal 29.9-35.2 [facility] Comment on above: Performed By: #### C MP, TSH, HSTROPN #### [facility] [address] [place] [address] Dr. Christos Fallon MCV (RBC) [Entitic vol] 107.5 fL Critically high 81.0-99.0 [facility] Comment on above: Performed By: #### C MP, TSH, HSTROPN #### [facility] [address] [place] [address] Dr. Christos Fallon MONO # 0.7 103/ul Normal 0.3-0.8 [facility] Comment on above: Performed By: #### C MP, TSH, HSTROPN #### [facility] [address] [place] [address] Dr. Christos Fallon Monocytes/100 WBC (Bld) 7.7 % Normal 1.7-12.0 [facility] Comment on above: Performed By: #### C MP, TSH, HSTROPN #### [facility] [address] [place] [address] Dr. Christos Fallon NEUT # 5.7 103/ul Normal 1.4-6.5 [facility] Comment on above: Performed By: #### C MP, TSH, HSTROPN #### [facility] [address] [address] [address] Christos Fallon Neutrophils/100 WBC (Bld) 59.6 % Normal 43.0-75.0 [facility] Comment on above: Performed By: #### C MP, TSH, HSTROPN #### [facility] [address] [address] [address] Christos Fallon Platelet mean volume (Bld) [Entitic vol] 9.9 fL Normal 9.5-13.5 [facility] Comment on above: Performed By: #### C MP, TSH, HSTROPN #### [facility] [address] [place] [address] Dr. Christos Fallon PLT 309 103/ul Normal 150-450 [facility] Comment on above: Performed By: #### C MP, TSH, HSTROPN #### [facility] [address] [place] [address] Dr. Christos Fallon RBC 4.00 106/ul Critically low 4.20-5.40 [facility] Comment on above: Performed By: #### C MP, TSH, HSTROPN #### [facility] [address] [place] [address] Dr. Christos Fallon WBC 9.6 103/ul Normal 4.0-11.0 [facility] Comment on above: Performed By: #### C MP, TSH, HSTROPN #### [facility] [address] [place] [address] Dr. Christos Fallon D-DIMERon 09-02-2022 D-DIMER 0.28 mg/L FEU Normal <=0.59 [facility] Comment on above: Performed By: #### C MP, TSH, HSTROPN #### [facility] [address] [place] [address] Dr. Christos Fallon D-DIMER COMMENTS SEE BELOW Normal [facility] Comment on above: Result Comment: Incr [...] By: #### C MP, TSH, HSTROPN #### [facility] [address] [address] [address] Christos Fallon PROF 14(COMP METB)on 023 Albumin [Mass/Vol] 3.8 g/dL Normal 3.4-5.0 [facility] Comment on above: Performed By: #### C MP, TSH, HSTROPN #### [facility] [address] [place] [address] Dr. Christos Fallon Albumin/Globulin [Mass ratio] 1.2 {ratio} Normal [facility] Comment on above: Performed By: #### C MP, TSH, HSTROPN #### [facility] [address] [place] [address] Dr. Christos Fallon ALP [Catalytic activity/Vol] 85 U/L Normal 46-116 [facility] Comment on above: Performed By: #### C MP, TSH, HSTROPN #### [facility] [address] [place] [address] Dr. Christos Fallon ALT [Catalytic activity/Vol] 39 U/L Normal 14-59 [facility] Comment on above: Performed By: #### C MP, TSH, HSTROPN #### [facility] [address] [address] [address] Christos Fallon Anion gap [Moles/Vol] 16.3 mmol/L Normal [facility] Comment on above: Performed By: #### C MP, TSH, HSTROPN #### [facility] [address] [address] [address] Christos Fallon AST [Catalytic activity/Vol] 19 U/L Normal 15-37 [facility] Comment on above: Performed By: #### C MP, TSH, HSTROPN #### [facility] [address] [address] [address] Christos Fallon Bilirubin [Mass/Vol] 0.4 mg/dL Normal 0.2-1.0 [facility] Comment on above: Performed By: #### C MP, TSH, HSTROPN #### [facility] [address] [place] [address] Dr. Christos Fallon Calcium [Mass/Vol] 9.2 mg/dL Normal 8.5-10.1 [facility] Comment on above: Performed By: #### C MP, TSH, HSTROPN #### [facility] [address] [place] [address] Dr. Christos Fallon Chloride [Moles/Vol] 101 mmol/L Normal 98-107 [facility] Comment on above: Performed By: #### C MP, TSH, HSTROPN #### [facility] [address] [place] [address] Dr. Christos Fallon CO2 [Moles/Vol] 24.9 mmol/L Normal 21.0-32.0 [facility] Comment on above: Performed By: #### C MP, TSH, HSTROPN #### [facility] [address] [place] [address] Dr. Christos aFllon Creatinine [Mass/Vol] 0.83 mg/dL Normal 0.55-1.02 [facility] Comment on above: Performed By: #### C MP, TSH, HSTROPN #### [facility] [address] [place] [address] Dr. Christos Fallon EGFR-AF KYRGYZ >60 Normal >=60 [facility] Comment on above: Performed By: #### C MP, TSH, HSTROPN #### [facility] [address] [place] [address] Dr. Christos Fallon EGFR-NON AF KYRGYZ >60 Normal >=60 [facility] Comment on above: Performed By: #### C MP, TSH, HSTROPN #### [facility] [address] [place] [address] Dr. Christos Fallon Globulin (S) [Mass/Vol] 3.2 g/dL Normal [facility] Comment on above: Performed By: #### C MP, TSH, HSTROPN #### [facility] [address] [place] [address] Dr. Christos Fallon Glucose [Mass/Vol] 142 mg/dL Critically high 74-106 [facility] Comment on above: Performed By: #### C MP, TSH, HSTROPN #### [facility] [address] [place] [address] Dr. Christos Fallon Potassium [Moles/Vol] 3.2 mmol/L Critically low 3.5-5.1 [facility] Comment on above: Performed By: #### C MP, TSH, HSTROPN #### [facility] [address] [place] [address] Dr. Christos Fallon Protein [Mass/Vol] 7.0 g/dL Normal 6.4-8.2 [facility] Comment on above: Performed By: #### C MP, TSH, HSTROPN #### [facility] [address] [place] [address] Dr. Christos Fallon Sodium [Moles/Vol] 139 mmol/L Normal 136-145 [facility] Comment on above: Performed By: #### C MP, TSH, HSTROPN #### [facility] [address] [place] [address] Dr. Christos Fallon Urea nitrogen [Mass/Vol] 10.0 mg/dL Normal 7.0-18.0 [facility] Comment on above: Performed By: #### C MP, TSH, HSTROPN #### [facility] [address] [place] [address] Dr. Christos Fallon Urea nitrogen/Creatinine [Mass ratio] 12.0 mg/mg Normal [facility] Comment on above: Performed By: #### C MP, TSH, HSTROPN #### [facility] [address] [place] [address] Dr. Christos Fallon PROTIMEon 09-02-2022 INR Coag (PPP) [Relative time] {INR} Normal [facility] Comment on above: Performed By: #### C MP, TSH, HSTROPN #### [facility] [address] [place] [address] Dr. Christos Fallon INR GUIDELINES SEE BELOW Normal [facility] Comment on above: Result Comment: GUALBERTO RED INR: 2.0 - 3.0 CONDITIONS NOT LISTED BELOW 2.5 - 3.5 FOR PROSTHETIC HEART VALVE REPLACEMENT 2.5 - 3.5 RECURRENT THROMBOSIS Performed By: #### C MP, TSH, HSTROPN #### [facility] [address] [address] [address] Christos Fallon PT Coag (PPP) [Time] 9.7 s Normal 9.0-11.6 [facility] Comment on above: Performed By: #### C MP, TSH, HSTROPN #### [facility] [address] [place] [address] Dr. Christos Fallon PTTon 09-02-2022 aPTT Coag (Bld) [Time] 25.9 s Normal 22.3-36.2 [facility] Comment on above: Performed By: #### C MP, TSH, HSTROPN #### [facility] [address] [place] [address] Dr. Christos Fallon TROPONIN, HIGH SENSITIVITYon 09-02-2022 HSTROP <4.0 Normal 4.0-51.3 [facility] Comment on above: Result Comment: CUT- OFF POINTS HAVE BEEN ESTABLISHED BASED ON THE FOURTH UNIVERSAL DEFINITIONS OF MYOCARDIAL INFARCTION. THE UPPER REFERENCE LIMIT (URL) OF TROPONIN, DEFINED THE 99TH PERCENTILE OF cTnI DISTRIBUTION IN A REFERENCE POPULATION, HAS BEEN CONFIRMED THE DECISION THRESHOLD FOR SC DIAGNOSIS. Performed By: #### C MP, TSH, HSTROPN #### [facility] [address] [place] [address] Dr. Christos Fallon TSHon 09-02-2022 TSH 0.813 uIU/mL Normal 0.358-3.740 [facility] Comment on above: Performed By: #### C MP, TSH, HSTROPN #### [facility] [address] [address] [address] Christos Fallon XR CHEST 1 Von [...] by: LEEANNE MON Date: 2022-09-02 15:09 Normal [facility] CNOVon 08-24-2022 CNOV Office Visit (CARDLO ) CHRISTINAKAILA SHELLEY Emily ([id number]) 1980 F Date Time Provider Department 08/24/22 2:00 PM JANELL SY During your visit today, we recorded the following information about you: Pulse Blood pressure Weight Height 88/minute 112/73 112.9 kg 1.626 m Janell Sy MD 08/24/2022 2:17 PM Signed [facility] [place] SECTION OF REGIONAL CARDIOLOGY OUTPATIENT VISIT DATE August 24, 2022 OUTPATIENT VISIT TYPE NEW PRIMARY CARE PHYSICIAN: To use this Smartlink, specify the provider ID whose address you want to display, e.g., .[email or web address][1 (where 1 is the provider ID). A written report of the findings and recommendations will be sent to the requesting provider via shared medical record or via [facility]. Patient is being seen at the request [...] Cardiac work-up includes: Echocardiogram on 05/19/2020 at [facility] showed normal ejection fraction. No [...] apnea) Palpitatio (more content not included)... Normal [facility] ECG COMPLETEon 08-24-2022 ECG COMPLETE Ventricular Rate : 8 4 BPM Atrial Rate : 84 BPM P-R Interval : 166 ms QRS Duration : 92 ms Q-T Interval : 358 ms QTC Calculation(Bazett) : 423 ms Calculated P [place] : 60 degrees Calculated R [place] : 45 degrees Calculated T [place] : 45 degrees NORMAL SINUS RHYTHM INCREASED R/S RATIO IN V1, CONSIDER EARLY TRANSITION OR POSTERIOR INFARCT ABNORMAL ECG Confirmed by MEERA BOYD M.D. ([id number]) on 08/28/2022 3:03:10 PM NAME : KAILA VASQUEZ PID : [id number] : 1980 Gender : Female Race : ORD : [id number] Procedure Date : Aug 24 2022 13:56:02 [...] JANELL SY Acquired by : Jose browning [facility] CNTHERAPYon 08-12-2022 CNTHERAPY OT/PT/Speech Visit (PTAMCF) KAILA VASQUEZ ([id number]) 1980 F Date Time Provider Department 08/12/22 2:45 PM CARMEN [facility] Date Time Provider Department Center 08/12/2022 2:45 PM [id number], KARA [facility] Reason for Visit: Physical Therapy [503] Primary [...] % (flush) 10 mL (BD POSIFLUSH) Jose [facility] CNTHERAPYon 08-05-2022 CNTHERAPY OT/PT/Speech Visit (PTAMCF) KAILA VASQUEZ ([id number]) 1980 F Date Time Provider Department 08/05/22 9:15 AM CARMEN [facility] Date Time Provider Department [place] 08/05/2022 9:15 AM [id number] CARMEN [facility] Reason for Visit: PT Eval [747] Primary [...] % (flush) 10 mL (BD POSIFLUSH) Normal [facility] Covid-19 PCR ([facility])on 07-09 SARS-CoV-2 (COVID-19) RNA LEROY+probe Ql (Unsp spec) Not detected Normal NOT DETECTED [facility] Comment on above: Result Comment: [...] for this test is supported by the Res Counselor of Health and Human Service's declaration that [...] used). Performed By: #### C VDAGA #### [facility] Laboratory [address] [place] [address] Dr. Christos Fallon 25(OH)D3 [facility] 2021 25-hydroxyvitamin D3 [Mass/Vol] 15.8 ng/mL Low 31.0-80.0 [facility] Comment on above: Order Comment: Speci men Type: BLOOD SPECIMENOrdering Facility: [facility] Address: [address] [address] Result Comment: Clas sification of 25 [place] Vitamin D status: Deficiency/Insufficiency: < or = 30 ng/ml. Sufficiency/Optimal Levels: 31-80 ng/mL Toxicity: > 100 ng/mL. Test performed by chemiluminescent immunoassay. Performed By: #### 1 989-3 ####[facility] LABCLIA [id number] [address] [place] ESEQUIEL BY IFA WITH REFLEXon ESEUQIEL PATTERN Nuclear fine speckled Normal Cl [facility] Comment on above: Order Comment: Bryan hernández Type: BLOOD SPECIMENOrdering Facility: [facility] Address: [address] [address] Performed By: #### 2 9374-6, 26356-6, 57612-6, 52879-3, 51510-7, ANAIFR, 96775-7, 24093-9, 27068-2, 69628-1 ####[facility] LABCLIA [id number] [address] [address] [place] ESEQUIEL TITER 1:160 Normal [facility] Comment on above: Order Comment: Speci men Type: BLOOD SPECIMENOrdering Facility: [facility] Address: [address] [place] [address] Performed By: #### 2 9374-6, 33850-2, 64916-6, 49093-0, 99797-9, ANAIFR, 57815-2, 34740-5, 20663-7, 01199-5 ####[facility] LABCLIA [id number] [place] [address] [place] Nuclear Ab IF (S) [Titer] Positive Abnormal Negative [facility] Comment on above: Order Comment: Speci men Type: BLOOD SPECIMENOrdering Facility: [facility] Address: [address] [place] [address] Result Comment: Anti -nuclear antibody test is used as an aid in diagnosis of systemic autoimmune diseases. Where positive and clinically warranted, follow-up using disease-specific testing is recommended. Low positive titers are not uncommon with advanced age, certain chronic infections, and malignancies among others. Test methodology: Indirect fluorescence immunoassay (IFA) using HEp-2 cells. Performed By: #### 2 9374-6, 87746-0, 06537-9, 47955-7, 38037-4, ANAIFR, 42781-6, 47509-3, 69710-2, 22534-8 ####[facility] LABCLIA [id number] [address] [id number] [place] Basic metabolic 2000 panelon 07-07-2022 Anion gap [Moles/Vol] 13 mmol/L Normal 9-18 [facility] Comment on above: Order Comment: Speci men Type: BLOOD SPECIMENOrdering Facility: [facility] Address: [address] [place] [address] Performed By: #### 2 4321-2 ####[facility] LABCLIA [id number] [place] [address] [place] Calcium [Mass/Vol] 9.3 mg/dL Normal 8.5-10.2 [facility] Comment on above: Order Comment: Speci men Type: BLOOD SPECIMENOrdering Facility: [facility] Address: [address] [place] [address] Performed By: #### 2 4321-2 ####[facility] LABCLIA [id number] [place] [address] [place] Chloride [Moles/Vol] 102 mmol/L Normal 97-105 [facility] Comment on above: Order Comment: Speci men Type: BLOOD SPECIMENOrdering Facility: [facility] Address: [address] [place] [address] Performed By: #### 2 4321-2 ####[facility] LABCLIA [id number] [place] [address] [place] CO2 [Moles/Vol] 23 mmol/L Normal 22-30 [facility] Comment on above: Order Comment: Speci men Type: BLOOD SPECIMENOrdering Facility: [facility] Address: [address] [place] [address] Performed By: #### 2 4321-2 ####[facility] LABCLIA [id number] [place] [address] [place] Creatinine [Mass/Vol] 0.72 mg/dL Normal 0.58-0.96 [facility] Comment on above: Order Comment: Speci men Type: BLOOD SPECIMENOrdering Facility: [facility] Address: [address] [place] [address] Performed By: #### 2 4321-2 ####[facility] LABCLIA [id number] [place] [address] [place] ESTIMATED GLOMERULAR FILTRATION RATE 109 mL/min/1.73m??? Normal >=60 [facility] Comment on above: Order Comment: Bryan hernández Type: BLOOD SPECIMENOrdering Facility: [facility] Address: [address] [id number] Result Comment: Dina mated Glomerular Filtration Rate [...] actual GFR. Performed By: #### 2 4321-2 ####[facility] LABCLIA [id number] [place] [address] [place] Glucose [Mass/Vol] 98 mg/dL Normal 74-99 [facility] Comment on above: Order Comment: Bryan hernández Type: BLOOD SPECIMENOrdering Facility: [facility] Address: [address] [place] [address] Result Comment: The [place] Diabetes Association (ADA) provides guidance for cutoff [...] Standards of Medical Care in Diabetes 2016, [place] [employer]. Diabetes Care. 2016.39(Suppl 1). Performed By: #### 2 4321-2 ####[facility] LABCLIA [id number] [place] [address] [place] Potassium [Moles/Vol] 4.1 mmol/L Normal 3.7-5.1 [facility] Comment on above: Order Comment: Bryan hernández Type: BLOOD SPECIMENOrdering Facility: [facility] Address: [address] [address] Performed By: #### 2 4321-2 ####[facility] LABCLIA [id number] [place] [address] [place] Sodium [Moles/Vol] 138 mmol/L Normal 136-144 [facility] Comment on above: Order Comment: Speci men Type: BLOOD SPECIMENOrdering Facility: [facility] Address: [address] [address] Performed By: #### 2 4321-2 ####[facility] LABCLIA [id number] [place] [address] [place] Urea nitrogen [Mass/Vol] 8 mg/dL Normal 7-21 [facility] Comment on above: Order Comment: Speci men Type: BLOOD SPECIMENOrdering Facility: [facility] Address: [address] [address] Performed By: #### 2 4321-2 ####[facility] LABCLIA [id number] [place] [address] [place] Anion gap [Moles/Vol] 13 mmol/L 9 - 18 mmol/L [facility] Calcium [Mass/Vol] 9.3 mg/dL 8.5 - 10. 2 mg/dL [facility] Chloride [Moles/Vol] 102 mmol/L 97 - 10 5 mmol/L [facility] CO2 [Moles/Vol] 23 mmol/L 22 - 30 mmol/L [facility] Creatinine [Mass/Vol] 0.72 mg/dL 0.58 - 0.96 mg/dL [facility] Estimated Glomerular Filtration Rate 109 mL/min/1.73m >=60 mL/min/1.73m [facility] Glucose [Mass/Vol] 98 mg/dL 74 - 99 mg/dL [facility] Potassium [Moles/Vol] 4.1 mmol/L 3.7 - 5.1 mmol/L [facility] Sodium [Moles/Vol] 138 mmol/L 136 - 144 mmol/L [facility] Urea nitrogen [Mass/Vol] 8 mg/dL 7 - 21 mg/dL [facility] CBC W Auto Differential pane l (Bld)on 07-07-2022 Basophils (Bld) [#/Vol] 0.04 10*3/uL Normal <0.11 [facility] Comment on above: Order Comment: Speci men Type: BLOOD SPECIMENOrdering Facility: [facility] Address: [address] [place] [address] Performed By: #### 5 7021-8 ####[facility] LABCLIA [id number] [place] [address] [place] Basophils/100 WBC (Bld) 0.5 % Normal [facility] Comment on above: Order Comment: Speci men Type: BLOOD SPECIMENOrdering Facility: [facility] Address: [address] [place] [address] Performed By: #### 5 7021-8 ####[facility] LABCLIA [id number] [place] [address] [place] Differential cell count method Nom (Bld) Auto Normal [facility] Comment on above: Order Comment: Speci men Type: BLOOD SPECIMENOrdering Facility: [facility] Address: [address] [place] [address] Performed By: #### 5 7021-8 ####[facility] LABCLIA [id number] [place] [address] [place] Eosinophils (Bld) [#/Vol] 0.29 10*3/uL Normal <0.46 [facility] Comment on above: Order Comment: Speci men Type: BLOOD SPECIMENOrdering Facility: [facility] Address: [address] [place] [address] Performed By: #### 5 7021-8 ####[facility] LABCLIA [id number] [place] [address] [place] Eosinophils/100 WBC (Bld) 3.9 % Normal [facility] Comment on above: Order Comment: Speci men Type: BLOOD SPECIMENOrdering Facility: [facility] Address: [address] [address] Performed By: #### 5 7021-8 ####[facility] LABIA [id number] [place] [address] [place] Erythrocyte distribution width (RBC) [Ratio] 12.1 % Normal 11.5-15.0 [facility] Comment on above: Order Comment: Speci men Type: BLOOD SPECIMENOrdering Facility: [facility] Address: [address] [place] [address] Performed By: #### 5 7021-8 ####[facility] LABIA [id number] [place] [address] [place] Hematocrit (Bld) [Volume fraction] 43.5 % Normal 36.0-46.0 [facility] Comment on above: Order Comment: Speci men Type: BLOOD SPECIMENOrdering Facility: [facility] Address: [address] [place] [address] Performed By: #### 5 7021-8 ####[facility] LABIA [id number] [place] [address] [place] Hemoglobin (Bld) [Mass/Vol] 14.9 g/dL Normal 11.5-15.5 [facility] Comment on above: Order Comment: Speci men Type: BLOOD SPECIMENOrdering Facility: [facility] Address: [address] [place] [address] Performed By: #### 5 7021-8 ####[facility] LABIA [id number] [place] [address] [place] Immature granulocytes (Bld) [#/Vol] 0.03 10*3/uL Normal <0.10 [facility] Comment on above: Order Comment: Speci men Type: BLOOD SPECIMENOrdering Facility: [facility] Address: [address] [address] Performed By: #### 5 7021-8 ####[facility] LABCLIA [id number] [address] STATES [facility] Immature granulocytes/100 WBC (Bld) 0.4 % Normal [facility] Comment on above: Order Comment: Speci men Type: BLOOD SPECIMENOrdering Facility: [facility] Address: [address] [address] Performed By: #### 5 7021-8 ####[facility] LABCLIA [id number] [place] [address] [place] Lymphocytes (Bld) [#/Vol] 1.71 10*3/uL Normal 1.00-4.00 [facility] Comment on above: Order Comment: Speci men Type: BLOOD SPECIMENOrdering Facility: [facility] Address: [address] [address] Performed By: #### 5 7021-8 ####[facility] LABIA [id number] [place] [address] [place] Lymphocytes/100 WBC (Bld) 23.2 % Normal [facility] Comment on above: Order Comment: Speci men Type: BLOOD SPECIMENOrdering Facility: [facility] Address: [address] [address] Performed By: #### 5 7021-8 ####[facility] LABIA [id number] [place] [address] [place] MCH (RBC) [Entitic mass] 34.1 pg High 26.0-34.0 [facility] Comment on above: Order Comment: Speci men Type: BLOOD SPECIMENOrdering Facility: [facility] Address: [address] [place] [address] Performed By: #### 5 7021-8 ####[facility] LABCLIA [id number] [place] [address] [place] MCHC (RBC) [Mass/Vol] 34.3 g/dL Normal 30.5-36.0 [facility] Comment on above: Order Comment: Speci men Type: BLOOD SPECIMENOrdering Facility: [facility] Address: [address] [place] [address] Performed By: #### 5 7021-8 ####[facility] LABCLIA [id number] [place] [address] [place] MCV (RBC) [Entitic vol] 99.5 fL Normal 80.0-100.0 [facility] Comment on above: Order Comment: Speci men Type: BLOOD SPECIMENOrdering Facility: [facility] Address: [address] [place] [address] Performed By: #### 5 7021-8 ####[facility] LABIA [id number] [place] [address] [place] Monocytes (Bld) [#/Vol] 0.57 10*3/uL Normal <0.87 [facility] Comment on above: Order Comment: Speci men Type: BLOOD SPECIMENOrdering Facility: [facility] Address: [address] [place] [address] Performed By: #### 5 7021-8 ####[facility] LABCLIA [id number] [place] [address] [place] Monocytes/100 WBC (Bld) 7.7 % Normal [facility] Comment on above: Order Comment: Speci men Type: BLOOD SPECIMENOrdering Facility: [facility] Address: [address] [place] [address] Performed By: #### 5 7021-8 ####[facility] LABCLIA [id number] [place] [address] [place] Neutrophils (Bld) [#/Vol] 4.73 10*3/uL Normal 1.45-7.50 [facility] Comment on above: Order Comment: Speci men Type: BLOOD SPECIMENOrdering Facility: [facility] Address: [address] [place] [address] Performed By: #### 5 7021-8 ####[facility] LABCLIA [id number] [place] [address] [place] Neutrophils/100 WBC (Bld) 64.3 % Normal [facility] Comment on above: Order Comment: Speci men Type: BLOOD SPECIMENOrdering Facility: [facility] Address: [address] [place] [address] Performed By: #### 5 7021-8 ####[facility] LABCLIA [id number] [place] [address] [place] Nucleated RBC (Bld) [#/Vol] 10*3/uL Normal <0.01 [facility] Comment on above: Order Comment: Speci men Type: BLOOD SPECIMENOrdering Facility: [facility] Address: [address] [place] [address] Performed By: #### 5 7021-8 ####[facility] LABCLIA [id number] [place] [address] [place] Nucleated RBC/100 WBC (Bld) [Ratio] 0.0 /100 WBC Normal [facility] Comment on above: Order Comment: Speci men Type: BLOOD SPECIMENOrdering Facility: [facility] Address: [address] [place] [address] Performed By: #### 5 7021-8 ####[facility] LABIA [id number] [place] [address] [place] Platelet mean volume (Bld) [Entitic vol] 9.6 fL Normal 9.0-12.7 [facility] Comment on above: Order Comment: Speci men Type: BLOOD SPECIMENOrdering Facility: [facility] Address: [address] [place] [address] Performed By: #### 5 7021-8 ####[facility] LABIA [id number] [place] [address] [place] Platelets (Bld) [#/Vol] 277 10*3/uL Normal 150-400 [facility] Comment on above: Order Comment: Speci men Type: BLOOD SPECIMENOrdering Facility: [facility] Address: [address] [place] [address] Performed By: #### 5 7021-8 ####[facility] LABIA [id number] [place] [address] [place] RBC (Bld) [#/Vol] 4.37 10*6/uL Normal 3.90-5.20 [facility] Comment on above: Order Comment: Speci men Type: BLOOD SPECIMENOrdering Facility: [facility] Address: [address] [place] [address] Performed By: #### 5 7021-8 ####[facility] LABIA [id number] [place] [address] [place] WBC (Bld) [#/Vol] 7.37 10*3/uL Normal 3.70-11.00 [facility] Comment on above: Order Comment: Speci men Type: BLOOD SPECIMENOrdering Facility: [facility] Address: [address] [place] [address] Performed By: #### 5 7021-8 ####[facility] LABIA [id number] [place] [address] [place] Basophils (Bld) [#/Vol] 0.04 10*3/uL <0.11 k/uL [facility] Basophils/100 WBC (Bld) 0.5 % [facility] Differential cell count method Nom (Bld) Auto [facility] Eosinophils (Bld) [#/Vol] 0.29 10*3/uL <0.46 k/uL [facility] Eosinophils/100 WBC (Bld) 3.9 % [facility] Erythrocyte distribution width (RBC) [Ratio] 12.1 % 11.5 - 15.0 % [facility] Hematocrit (Bld) [Volume fraction] 43.5 % 36.0 - 46.0 % [facility] Hemoglobin (Bld) [Mass/Vol] 14.9 g/dL 11.5 - 15.5 g/dL [facility] Immature granulocytes (Bld) [#/Vol] 0.03 10*3/uL <0.10 k/uL [facility] Immature granulocytes/100 WBC (Bld) 0.4 % [facility] Lymphocytes (Bld) [#/Vol] 1.71 10*3/uL 1.00 - 4.00 k/uL [facility] Lymphocytes/100 WBC (Bld) 23.2 % [facility] MCH (RBC) [Entitic mass] 34.1 pg High 26.0 - 34.0 pg [facility] MCHC (RBC) [Mass/Vol] 34.3 g/dL 30.5 - 36.0 g/dL [facility] MCV (RBC) [Entitic vol] 99.5 fL 80.0 - 100.0 fL [facility] Monocytes (Bld) [#/Vol] 0.57 10*3/uL <0.87 k/uL [facility] Monocytes/100 WBC (Bld) 7.7 % [facility] Neutrophils (Bld) [#/Vol] 4.73 10*3/uL 1.45 - 7.50 k/uL [facility] Neutrophils/100 WBC (Bld) 64.3 % [facility] Nucleated RBC (Bld) [#/Vol] <0.01 k/uL [facility] Nucleated RBC/100 WBC (Bld) [Ratio] 0.0 /100 WBC [facility] Platelet mean volume (Bld) [Entitic vol] 9.6 fL 9.0 - 12.7 fL [facility] Platelets (Bld) [#/Vol] 277 10*3/uL 150 - 400 k/uL [facility] RBC (Bld) [#/Vol] 4.37 10*6/uL 3.90 - 5.2 0 m/uL [facility] WBC (Bld) [#/Vol] 7.37 10*3/uL 3.70 - 11. 00 k/uL [facility] CNOVon 07-07-2022 CNOV Office Visit (NEUSHF ) KAILA VASQUEZ ([id number]) 1980 F Date Time Provider Department 07/07/22 8:00 AM GLENROY SYED During your visit today, we recorded the following information about you: Pulse Blood pressure Weight Height 82/minute 134/88 112 kg 1.626 m Glenroy Syed APRN.DRYWALL SANDER 07/07/2022 12:28 PM Signed [facility] General Neurology New Patient Evaluation CHIEF [...] over a month. She has seen an barber apprentice and was told she was having occular migraine by her sales project manager. A couple times a month she gets [...] tobacco: Never (more content not included)... Normal [facility] CNPNon 07-07-2022 CNPN Telephone (NEADFV) KAILA VASQUEZ ([id number]) 1980 F Date Time Provider Department 07/07/22 GLENROY SYEDFV During your visit today, we recorded the following information about you: Cinthya Salgado 07/07/2022 8:52 AM Signed Received medical records from [facility]. Uploaded to chart and forwarded for review. Kajal Gillespie RN 07/07/2022 9:14 AM Signed Noted. Provider notified. Allergies As of Date: 07/07/2022 (Not on File) Date Reviewed: 07/07/2022 Reviewed by: Elaine Bolaños Ma - Fully Assessed Reason for Visit: Received Outside Medical Records [1206] Prescriptions as of 07/19/2022 - metoprolol tartrate, short acting, (LOPRESSOR) 50 mg tablet metoprolol tartrate 50 mg tablet Facility-Administered Medications as of 07/19/2022 - perflutren lipid microspheres 1.3 mL in NaCl (PF) 0.9% 10 mL injection (DEFINITY) - sodium chloride 0.9 % (flush) 10 mL (BD POSIFLUSH) Problem List As Of Date: 07/07/2022 (None) Encounter Status:Closed by CINTHYA SALGADO on 07/19/22 Normal [facility] Centromere Ab IF Ql (S)on Centromere Ab Qn (S) <0.2 Normal <1.0 [facility] Comment on above: Order Comment: Speci men Type: BLOOD SPECIMENOrdering Facility: [facility] Address: [address] [place] [address] Result Comment: Anti -centromere antibody is used as in aid in diagnosis of systemic sclerosis. Clinical correlation is required. Test Methodology: Multiplex flow immunoassay. Performed By: #### 2 9374-6, 93484-9, 21517-5, 76766-9, 30874-9, ANAIFR, 98990-4, 68788-8, 53592-8, 48168-7 ####[facility] LABCLIA [id number] [address] STATES OF [facility] CENTROMERE AB QUAL Negative Normal Negative [facility] Comment on above: Order Comment: Speci men Type: BLOOD SPECIMENOrdering Facility: [facility] Address: [address] [place] [address] Performed By: #### 2 9374-6, 53227-5, 99455-0, 78666-4, 73040-4, ANAIFR, 47572-6, 49614-9, 68046-3, 34591-2 ####[facility] LABCLIA [id number] [place] [address] [place] Chromatin Ab Qnon 07-07-2022 CHROMATIN AB QUAL Negative Normal Negative [facility] Comment on above: Order Comment: Speci men Type: BLOOD SPECIMENOrdering Facility: [facility] Address: [address] [place] [address] Performed By: #### 2 9374-6, 73447-4, 98923-2, 06273-6, 14425-5, ANAIFR, 36567-1, 69569-3, 12775-6, 65250-4 ####[facility] LABCLIA [id number] [place] [address] [place] Chromatin Ab SerPl-aCncon Chromatin Ab Qn <0.2 Normal <1.0 [facility] Comment on above: Order Comment: Speci men Type: BLOOD SPECIMENOrdering Facility: [facility] Address: [address] [place] [address] Result Comment: Test Methodology: Multiplex flow immunoassay. Performed By: #### 2 9374-6, 54391-7, 47047-6, 09866-3, 91569-4, ANAIFR, 69455-8, 83666-9, 45037-8, 13612-3 ####[facility] [id number] [address] [place] KAMRAN Jo1 Ab Ser-aCncon 2021 Radha-1 extractable nuclear Ab Qn (S) <0.2 Normal <1.0 [facility] Comment on above: Order Comment: Speci men Type: BLOOD SPECIMENOrdering Facility: [facility] Address: [address] [place] [address] Performed By: #### 2 9374-6, 77128-2, 49406-8, 94519-7, 82368-8, ANAIFR, 22748-4, 22003-7, 27048-1, 01195-0 ####[facility] [id number] [place] [address] [place] KAMRAN PRIMER ASSEMBLER Ab Ser-aCncon 2021 Ribonucleoprotein extractable nuclear Ab Qn (S) <0.2 Normal <1.0 [facility] Comment on above: Order Comment: Speci men Type: BLOOD SPECIMENOrdering Facility: [facility] Address: [address] [place] [address] Performed By: #### 2 9374-6, 88330-0, 34811-5, 93048-2, 92533-5, ANAIFR, 66849-5, 62896-0, 15282-4, 81467-4 ####[facility] LABIA [id number] [place] [address] [place] KAMRAN SM IgG Ser-aCncon 2021 Osborne extractable nuclear IgG Qn (S) <0.2 Normal <1.0 [facility] Comment on above: Order Comment: Speci men Type: BLOOD SPECIMENOrdering Facility: [facility] Address: [address] [place] [address] Performed By: #### 2 9374-6, 33202-3, 81732-8, 53886-4, 82452-0, ANAIFR, 19637-5, 34520-5, 71310-3, 40133-4 ####[facility] [id number] [place] [address] [place] KAMRAN SS-A Ab Ser-aCncon 07-07 Sjogrens syndrome-A extractable nuclear Ab Qn (S) 0.3 AI Normal <1.0 [facility] Comment on above: Order Comment: Speci men Type: BLOOD SPECIMENOrdering Facility: [facility] Address: [address] [place] [address] Result Comment: Test Methodology: Multiplex flow immunoassay. Performed By: #### 2 9374-6, 79730-3, 75158-3, 99542-4, 24242-1, ANAIFR, 25940-0, 39870-3, 61542-0, 38621-8 ####[facility] [id number] [place] [address] [place] KAM[place] SS-B Ab Ser-aCncon 07-07 Sjogrens syndrome-B extractable nuclear Ab Qn (S) <0.2 Normal <1.0 [facility] Comment on above: Order Comment: Speci men Type: BLOOD SPECIMENOrdering Facility: [facility] Address: [address] [place] [address] Result Comment: Anti -SSB (anti-La) antibody is used as an aid in diagnosis of a variety of systemic autoimmune diseases, especially for Sjogren's syndrome and systemic lupus erythematosus. Clinical correlation is required. Test Methodology: Multiplex flow immunoassay. Performed By: #### 2 9374-6, 92654-4, 75834-9, 53798-1, 35333-0, ANAIFR, 58197-9, 74290-9, 41430-8, 43185-3 ####[facility] LABCLIA [id number] [place] [address] [place] Radha-1 extractable nuclear Ab Qn (S)on 07-07-2022 RADHA 1 ANTIBODY QUAL Negative Normal Negative [facility] Comment on above: Order Comment: Speci men Type: BLOOD SPECIMENOrdering Facility: [facility] Address: [address] [address] Result Comment: Anti -RADHA-1 antibody is used as an aid in diagnosis of polymyositis and dermatomyositis especially with pulmonary involvement. A negative result cannot rule out polymyositis or dermatomyositis. Clinical correlation is required. Test Methodology: Multiplex flow immunoassay. Performed By: #### 2 9374-6, 38935-7, 93311-7, 79946-7, 22833-8, ANAIFR, 55175-6, 12365-6, 01295-1, 57380-3 ####[facility] LABIA [id number] [place] [address] [place] Ribonucleoprotein extractabl e nuclear Ab Qn (S)on 07-07-2022 ANTI-PRIMER ASSEMBLER QUAL Negative Normal Negative [facility] Comment on above: Order Comment: Speci men Type: BLOOD SPECIMENOrdering Facility: [facility] Address: [address] [address] Performed By: #### 2 9374-6, 65115-0, 46132-0, 66568-9, 78362-9, ANAIFR, 56213-6, 46750-1, 80150-2, 68590-0 ####[facility] LABCLIA [id number] [place] [address] [place] RIBOSOMAL PRIMER ASSEMBLER QUAL Negative Normal Negative [facility] Comment on above: Order Comment: Bryan hernández Type: BLOOD SPECIMENOrdering Facility: [facility] Address: [address] [place] [address] Result Comment: Anti -Ribosomal RNA (Ribosomal P) antibody is used as an aid in diagnosis of systemic autoimmune diseases especially systemic lupus erythematosus and mixed connective tissue disease. Cross-reactivity with Anti-osborne antibody is not uncommon. Clinical correlation is required. Test Methodology: Multiplex flow immunoassay. Performed By: #### 2 9374-6, 90972-8, 03704-1, 76943-1, 95267-4, ANAIFR, 27417-2, 28839-2, 75431-5, 70108-2 ####[facility] LABIA [id number] [place] [address] [place] SCL-70 extractable nuclear I gG IA Qn (S)on 07-07-2022 SCLERODERMA AB QUAL Negative Normal Negative [facility] Comment on above: Order Comment: Bryan hernández Type: BLOOD SPECIMENOrdering Facility: [facility] Address: [address] [place] [address] Performed By: #### 2 9374-6, 57088-0, 50791-1, 54264-4, 18685-7, ANAIFR, 01886-5, 19829-3, 94334-3, 75240-2 ####[facility] LABIA [id number] [place] [id number] [place] SCLERODERMA IGG AB <0.2 Normal <1.0 [facility] Comment on above: Order Comment: Bryan hernández Type: BLOOD SPECIMENOrdering Facility: [facility] Address: [address] [place] [address] Result Comment: Scl- 70/Scleroderma antibody test is used as an aid in diagnosis of systemic sclerosis especially the diffuse cutaneous form. A negative result cannot rule out systemic sclerosis. The final interpretation should consider clinical picture and other test results such as anti-centromere antibody. Test Methodology: Multiplex flow immunoassay. Performed By: #### 2 9374-6, 92821-2, 87425-2, 03136-0, 93951-1, ANAIFR, 17057-5, 77928-5, 09274-3, 88754-4 ####[facility] LABCLIA [id number] [address] [address] [place] Sjogrens syndrome-A extracta ble nuclear Ab Qn (S)on 07-07-2022 SSA ANTIBODY QUAL Negative Normal Negative [facility] Comment on above: Order Comment: Speci men Type: BLOOD SPECIMENOrdering Facility: [facility] Address: [address] [place] [address] Performed By: #### 2 9374-6, 40755-2, 75153-3, 92839-8, 58559-2, ANAIFR, 48790-6, 45901-4, 26281-7, 18487-2 ####[facility] LABIA [id number] [place] [address] [place] Sjogrens syndrome-B extracta ble nuclear Ab Qn (S)on 07-07-2022 SSB ANTIBODY QUAL Negative Normal Negative [facility] Comment on above: Order Comment: Speci men Type: BLOOD SPECIMENOrdering Facility: [facility] Address: [address] [place] [address] Performed By: #### 2 9374-6, 38605-7, 85417-3, 79753-7, 40026-7, ANAIFR, 05643-3, 73722-4, 21665-0, 19485-8 ####[facility] LABIA [id number] [place] [address] [place] Osborne extractable nuclear Ig G Qn (S)on 07-07-2022 SM ANTIBODY QUAL Negative Normal Negative [facility] Comment on above: Order Comment: Speci men Type: BLOOD SPECIMENOrdering Facility: [facility] Address: [address] [address] Result Comment: Anti -Sm (Osborne) antibody is used as an aid in diagnosis of systemic lupus erythematosus and its presence is associated with renal disease. A negative result cannot rule out systemic lupus erythematosus. Clinical correlation is required. Test Methodology: Multiplex flow immunoassay. Performed By: #### 2 9374-6, 01574-2, 51682-6, 39919-1, 96354-3, ANAIFR, 25118-3, 15357-2, 99055-9, 86467-5 ####[facility] LABCLIA [id number] [place] [address] [place] TSH BLDon 07-07-2022 TSH Qn 0.824 m[IU]/L 0.270 - 4.200 mIU/L [facility] TSH SerPl-aCncon 07-07-2022 TSH Qn 0.824 m[IU]/L Normal 0.270-4.200 [facility] Comment on above: Order Comment: Speci men Type: BLOOD SPECIMENOrdering Facility: [facility] Address: [address] [place] [address] Result Comment: If t he patient is , TSH reference range varies by gestational period: First Trimester (weeks 9-12): 0.180-2.990 mIU/L Second Trimester: 0.110-3.980 mIU/L Third Trimester: 0.480-4.710 mIU/L Eliezer Bangura et al. A Practical Approach for the Verifications and Determination of Site- and Trimester-Specific Reference Intervals for Thyroid Function tests in . Thyroid, 2019:29:3:412-420. Rob Forrest, et al. 2017 Guidelines of the [place] [employer] for the Diagnosis and Management of Thyroid Disease during and the . Thyroid, 2017:27:3:315-389. Performed By: #### 3 016-3, 2132-9 ####[facility] LABCLIA [id number] [place] [id number] [place] VITAMIN B12 BLOODon 07-07-20 22 Cobalamin (Vitamin B12) [Mass/Vol] 618 pg/mL 232 - 1,245 pg/mL [facility] Vit B12 SerPl-mCncon 022 Cobalamin (Vitamin B12) [Mass/Vol] 618 pg/mL Normal 232-1245 [facility] Comment on above: Order Comment: Speci men Type: BLOOD SPECIMENOrdering Facility: [facility] Address: [address] [place] [address] Performed By: #### 3 016-3, 2132-9 ####[facility] LABCLIA [id number] [place] [address] [place] dsDNA Ab Ser IA-aCncon 07-07 DNA double strand Ab IA Qn (S) <12 Normal <30 [facility] Comment on above: Order Comment: Speci men Type: BLOOD SPECIMENOrdering Facility: [facility] Address: [address] [place] [address] Result Comment: Nega tive for ds DNA Antibodies. <30 IU/mL Negative 30-74 IU/mL Equivocal >74 IU/mL Positive Performed By: #### 2 9374-6, 04856-3, 41428-9, 55438-5, 83777-1, ANAIFR, 16603-7, 57993-0, 40979-3, 67116-1 ####[facility] LABCLIA [id number] [address] [place] HLA B 27on 04-26-2022 HLA-B27 Negative Normal [facility] Comment on above: Result Comment: HLA- B*27 Negative B27 allele interpretation for all loci based on IMGT/HLA database version 3.44 This test was developed and its performance characteristics determined by [facility]. It has not been cleared or approved by the Food and Drug Administration. [facility] CLIA ID Number [id number] . This test was performed using PCR (Polymerase Chain Reaction)/SSOP (Sequence Specific Oligonucleotide Probes) technique. SBT (Sequence Based Typing) and/or SSP (Sequence Specific Primers) may be used as supplemental methods when necessary. Please contact [facility] Customer Service at if you have any questions. . Director of [facility] Laboratory Dr Abdiaziz Shook, PhD Performed By: #### C VDAGA #### [facility] [address] [place] [address] Dr. Christos Fallon 25-HYDROXY VIT D (D2+D3 [facility] ) LC/MS-MSon 04-23-2022 25-Hydroxy, Vitamin D 26 ng/mL Critically low [facility] Comment on above: Result Comment: Refe rence Range: All Ages: Target levels 30 - 100 Performed By: #### C MP, TSH, HSTROPN #### [facility] [address] [place] [address] Dr. Christos Fallon 25-Hydroxy, Vitamin D-2 <1.0 Normal [facility] Comment on above: Result Comment: This test was developed and its performance characteristics determined by [facility]. It has not been cleared or approved by the Food and Drug Administration. Performed By: #### C MP, TSH, HSTROPN #### [facility] [address] [place] [address] Dr. Christos Fallon 25-Hydroxy, Vitamin D-3 26 ng/mL Normal [facility] Comment on above: Result Comment: This test was developed and its performance characteristics determined by [facility]. It has not been cleared or approved by the Food and Drug Administration. Performed By: #### C MP, TSH, HSTROPN #### [facility] [address] [place] [address] Dr. Christos Fallon REVERSE T3on 04-20-2022 Reverse T3, Serum 11.2 ng/dL Normal 9.2-24.1 [facility] Comment on above: Result Comment: This test was developed and its performance characteristics determined by [facility]. It has not been cleared or approved by the Food and Drug Administration. Performed By: #### C VDAGA #### [facility] [address] [place] [address] Dr. Christos Fallon THYROID ANTIBODIESon 022 Thyroglobulin Antibody <1.0 Normal 0.0-0.9 [facility] Comment on above: Result Comment: Thyr oglobulin Antibody measured by [employer] Methodology Performed By: #### C VDAGA #### [facility] [address] [place] [address] Dr. Christos Fallon Thyroid Peroxidase (TPO) Ab 11 IU/mL Normal 0-34 [facility] Comment on above: Performed By: #### C VDAGA #### [facility] [address] [place] [address] Dr. Christos Fallon ANTISTREPTOLYSIN O AB (ASO)o n 04-16-2022 Antistreptolysin O Ab 21.8 IU/mL Normal 0.0-200.0 [facility] Comment on above: Performed By: #### C MP, TSH, HSTROPN #### [facility] [address] [place] [address] Dr. Christos Fallon T3, TOTAL (TRIIODOTHYRONINE) on 04-16-2022 T3, TOTAL 115 ng/dL Normal 71-180 [facility] Comment on above: Performed By: #### C MP, TSH, HSTROPN #### [facility] [address] [place] [address] Dr. Christos Fallon FREE T3on 04-14-2022 FREE T3 2.46 pg/mlL Normal 2.18-3.98 [facility] Comment on above: Performed By: #### C MP, TSH, HSTROPN #### [facility] [address] [place] [address] Dr. Christos Fallon FREE T4on 04-14-2022 Free T4 [Mass/Vol] 0.88 ng/dL Normal 0.76-1.46 [facility] Comment on above: Performed By: #### C VDAGA #### [facility] [address] [place] [address] Dr. Christos Fallon TSHon 04-14-2022 TSH 1.027 uIU/mL Normal 0.358-3.740 [facility] Comment on above: Performed By: #### C MP, TSH, HSTROPN #### [facility] [address] [place] [address] Dr. Christos Fallon CBC AUTO DIFFon 03-22-2022 BASO # 0.1 103/ul Normal 0.0-0.1 [facility] Comment on above: Performed By: #### C MP, TSH, HSTROPN #### [facility] [address] [place] [address] Dr. Christos Fallon Basophils/100 WBC (Bld) 0.7 % Normal 0.2-2.0 [facility] Comment on above: Performed By: #### C MP, TSH, HSTROPN #### [facility] [address] [place] [address] Dr. Christos Fallon EO # 0.3 103/ul Normal 0.0-0.7 [facility] Comment on above: Performed By: #### C MP, TSH, HSTROPN #### [facility] [address] [place] [address] Dr. Chirstos Fallon Eosinophils/100 WBC (Bld) 3.4 % Normal 0.9-7.0 [facility] Comment on above: Performed By: #### C MP, TSH, HSTROPN #### [facility] [address] [place] [address] Dr. Christos Fallon Erythrocyte distribution width (RBC) [Ratio] 12.5 % Normal 11.0-15.0 [facility] Comment on above: Performed By: #### C MP, TSH, HSTROPN #### [facility] [address] [place] [address] Dr. Christos Fallon Hematocrit (Bld) [Volume fraction] 41.3 % Normal 36.0-48.0 [facility] Comment on above: Performed By: #### C MP, TSH, HSTROPN #### [facility] [address] [place] [address] Dr. Christos Fallon Hemoglobin (Bld) [Mass/Vol] 14.2 g/dL Normal 12.0-16.0 [facility] Comment on above: Performed By: #### C MP, TSH, HSTROPN #### [facility] [address] [place] [address] Dr. Christos Fallon IG # 0.03 10e3/ul Normal 0.00-0.03 [facility] Comment on above: Performed By: #### C MP, TSH, HSTROPN #### [facility] [address] [place] [address] Dr. Christos Fallon IG % 0.4 % Normal 0.0-0.5 [facility] Comment on above: Performed By: #### C MP, TSH, HSTROPN #### [facility] [address] [place] [address] Dr. Christos Fallon LYMPH # 2.3 103/ul Normal 1.2-3.8 [facility] Comment on above: Performed By: #### C MP, TSH, HSTROPN #### [facility] [address] [place] [address] Dr. Christos Fallon Lymphocytes/100 WBC (Bld) 31.3 % Normal 20.5-60.0 [facility] Comment on above: Performed By: #### C MP, TSH, HSTROPN #### [facility] [address] [place] [address] Dr. Christos Fallon MANUAL DIFF REQ NO Normal [facility] Comment on above: Performed By: #### C MP, TSH, HSTROPN #### [facility] [address] [place] [address] Dr. Christos Fallon MCH (RBC) [Entitic mass] 34.8 pg Critically high 26.7-34.0 [facility] Comment on above: Performed By: #### C MP, TSH, HSTROPN #### [facility] [address] [place] [address] Dr. Christos Fallon MCHC (RBC) [Mass/Vol] 34.4 g/dL Normal 29.9-35.2 [facility] Comment on above: Performed By: #### C MP, TSH, HSTROPN #### [facility] [address] [place] [address] Dr. Christos Fallon MCV (RBC) [Entitic vol] 101.2 fL Critically high 81.0-99.0 [facility] Comment on above: Performed By: #### C MP, TSH, HSTROPN #### [facility] [address] [place] [address] Dr. Christos Fallon MONO # 0.9 103/ul Critically high 0.3-0.8 [facility] Comment on above: Performed By: #### C MP, TSH, HSTROPN #### [facility] [address] [place] [address] Dr. Christos Fallon Monocytes/100 WBC (Bld) 12.0 % Normal 1.7-12.0 [facility] Comment on above: Performed By: #### C MP, TSH, HSTROPN #### [facility] [address] [place] [address] Dr. Christos Fallon NEUT # 3.9 103/ul Normal 1.4-6.5 [facility] Comment on above: Performed By: #### C MP, TSH, HSTROPN #### [facility] [address] [place] [address] Dr. Christos Fallon Neutrophils/100 WBC (Bld) 52.2 % Normal 43.0-75.0 [facility] Comment on above: Performed By: #### C MP, TSH, HSTROPN #### [facility] [address] [place] [address] Dr. Christos Fallon Platelet mean volume (Bld) [Entitic vol] 9.7 fL Normal 9.5-13.5 [facility] Comment on above: Performed By: #### C MP, TSH, HSTROPN #### [facility] [address] [place] [address] Dr. Christos Fallon PLT 296 103/ul Normal 150-450 [facility] Comment on above: Performed By: #### C MP, TSH, HSTROPN #### [facility] [address] [place] [address] Dr. Christos Fallon RBC 4.08 106/ul Critically low 4.20-5.40 [facility] Comment on above: Performed By: #### C MP, TSH, HSTROPN #### [facility] [address] [place] [address] Dr. Christos Fallon WBC 7.4 103/ul Normal 4.0-11.0 [facility] Comment on above: Performed By: #### C MP, TSH, HSTROPN #### [facility] [address] [place] [address] HEAD WO CONon [...] PAL WETZEL Date: 2022-03-22 17:41 Normal [facility] ER URINE PROFILEon 2 Bilirubin Ql (U) Negative Normal NEGATIVE [facility] Comment on above: Performed By: #### C VDAGA #### [facility] [address] [place] [address] Dr. Christos Fallon Clarity (U) CLOUDY Abnormal CLEAR [facility] Comment on above: Performed By: #### C VDAGA #### [facility] [address] [place] [address] Dr. Christos Fallon Color (U) LT. YELLOW Normal YELLOW [facility] Comment on above: Performed By: #### C VDAGA #### [facility] [address] [place] [address] Dr. Christos Fallon ERUAHD A micrscopic examination will be performed if indicated. Normal [facility] Comment on above: Performed By: #### C VDAGA #### [facility] [address] [address] [address] Christos Fallon Glucose Ql (U) Negative Normal NEGATIVE [facility] Comment on above: Performed By: #### C VDAGA #### [facility] [address] [place] [address] Dr. Christos Fallon Hemoglobin Ql (U) Negative Normal NEGATIVE [facility] Comment on above: Performed By: #### C VDAGA #### [facility] [address] [address] [address] Christos Fallon Ketones Ql (U) Negative Normal NEGATIVE [facility] Comment on above: Performed By: #### C VDAGA #### [facility] [address] [place] [address] Dr. Christos Fallon LEUKOCYTES Negative Normal NEGATIVE [facility] Comment on above: Performed By: #### C VDAGA #### [facility] [address] [place] [address] Dr. Christos Fallon Nitrite Ql (U) Negative Normal NEGATIVE [facility] Comment on above: Performed By: #### C VDAGA #### [facility] [address] [place] [address] Dr. Christos Fallon pH (U) 6.0 [pH] Normal 5-9 [facility] Comment on above: Performed By: #### C VDAGA #### [facility] [address] [place] [address] Dr. Christos Fallon SPEC GRAVITY 1.010 Normal 1.005-<=1.02 5 [facility] Comment on above: Performed By: #### C VDAGA #### [facility] [address] [place] [address] Dr. Christos Fallon UA PROTEIN Negative Normal NEGATIVE/ TRACE [facility] Comment on above: Performed By: #### C VDAGA #### [facility] [address] [place] [address] Dr. Christos Fallon UR MICRO IND NOT INDICATED Normal [facility] Comment on above: Performed By: #### C VDAGA #### [facility] [address] [place] [address] Dr. Christos Fallon Urobilinogen Qn (U) 0.2 {Peyman'U}/dL Normal 0.2 - 1. 0 [facility] Comment on above: Performed By: #### C VDAGA #### [facility] [address] [address] [address] Christos Fallon PROF 14(COMP METB)on 022 Albumin [Mass/Vol] 3.6 g/dL Normal 3.4-5.0 [facility] Comment on above: Performed By: #### C MP, HSTROPN, TSH #### [facility] [address] [place] [address] Dr. Christos Fallon Albumin/Globulin [Mass ratio] 0.9 {ratio} Normal [facility] Comment on above: Performed By: #### C MP, HSTROPN, TSH #### [facility] [address] [place] [address] Dr. Christos Fallon ALP [Catalytic activity/Vol] 83 U/L Normal 46-116 [facility] Comment on above: Performed By: #### C MP, HSTROPN, TSH #### [facility] [address] [address] [address] Christos Fallon ALT [Catalytic activity/Vol] 32 U/L Normal 14-59 [facility] Comment on above: Performed By: #### C MP, HSTROPN, TSH #### [facility] [facility] [address] [address] [address] Christos Fallon Anion gap [Moles/Vol] 15.4 mmol/L Normal [facility] Comment on above: Performed By: #### C MP, HSTROPN, TSH #### [facility] [address] [address] [address] Christos Fallon AST [Catalytic activity/Vol] 15 U/L Normal 15-37 [facility] Comment on above: Performed By: #### C MP, HSTROPN, TSH #### [facility] [address] [address] [address] Christos Fallon Bilirubin [Mass/Vol] 0.3 mg/dL Normal 0.2-1.0 [facility] Comment on above: Performed By: #### C MP, HSTROPN, TSH #### [facility] [address] [place] [address] Dr. Christos Fallon Calcium [Mass/Vol] 8.9 mg/dL Normal 8.5-10.1 [facility] Comment on above: Performed By: #### C MP, HSTROPN, TSH #### [facility] [address] [place] [address] Dr. Christos Fallon Chloride [Moles/Vol] 102 mmol/L Normal 98-107 [facility] Comment on above: Performed By: #### C MP, HSTROPN, TSH #### [facility] [address] [place] [address] Dr. Christos Fallon CO2 [Moles/Vol] 22.7 mmol/L Normal 21.0-32.0 [facility] Comment on above: Performed By: #### C MP, HSTROPN, TSH #### [facility] [address] [place] [address] Dr. Christos Fallon Creatinine [Mass/Vol] 0.97 mg/dL Normal 0.55-1.02 [facility] Comment on above: Performed By: #### C MP, HSTROPN, TSH #### [facility] [address] [place] [address] Dr. Christos Fallon EGFR-AF KYRGYZ >60 Normal >=60 [facility] Comment on above: Performed By: #### C MP, HSTROPN, TSH #### [facility] [address] [place] [address] Dr. Christos Fallon EGFR-NON AF KYRGYZ >60 Normal >=60 [facility] Comment on above: Performed By: #### C MP, HSTROPN, TSH #### [facility] [address] [place] [address] Dr. Christos Fallon Globulin (S) [Mass/Vol] 3.8 g/dL Normal [facility] Comment on above: Performed By: #### C MP, HSTROPN, TSH #### [facility] [address] [address] [address] Christos Fallon Glucose [Mass/Vol] 104 mg/dL Normal 74-106 [facility] Comment on above: Performed By: #### C MP, HSTROPN, TSH #### [facility] [address] [address] [address] Christos Fallon Potassium [Moles/Vol] 4.1 mmol/L Normal 3.5-5.1 [facility] Comment on above: Performed By: #### C MP, HSTROPN, TSH #### [facility] [address] [place] [address] Dr. Christos Fallon Protein [Mass/Vol] 7.4 g/dL Normal 6.4-8.2 [facility] Comment on above: Performed By: #### C MP, HSTROPN, TSH #### [facility] [address] [place] [address] Dr. Christos Fallon Sodium [Moles/Vol] 136 mmol/L Normal 136-145 [facility] Comment on above: Performed By: #### C MP, HSTROPN, TSH #### [facility] [address] [address] [address] Christos Fallon Urea nitrogen [Mass/Vol] 17.0 mg/dL Normal 7.0-18.0 [facility] Comment on above: Performed By: #### C MP, HSTROPN, TSH #### [facility] [address] [place] [address] Dr. Christos Fallon Urea nitrogen/Creatinine [Mass ratio] 17.5 mg/mg Normal [facility] Comment on above: Performed By: #### C MP, HSTROPN, TSH #### [facility] [address] [place] [address] Dr. Christos Fallon TROPONIN, HIGH SENSITIVITYon 03-22-2022 HSTROP <4.0 Normal 4.0-51.3 [facility] Comment on above: Result Comment: CUT- OFF POINTS HAVE BEEN ESTABLISHED BASED ON THE FOURTH UNIVERSAL DEFINITIONS OF MYOCARDIAL INFARCTION. THE UPPER REFERENCE LIMIT (URL) OF TROPONIN, DEFINED THE 99TH PERCENTILE OF cTnI DISTRIBUTION IN A REFERENCE POPULATION, HAS BEEN CONFIRMED THE DECISION THRESHOLD FOR SC DIAGNOSIS. Performed By: #### C MARIIA BELLTRANSHUL, TSH #### [facility] [address] [place] [address] Dr. Christos Fallon TSHon 03-22-2022 TSH 0.854 uIU/mL Normal 0.358-3.740 [facility] Comment on above: Performed By: #### C RAY HSTRANSHUL, TSH #### [facility] [address] [place] [address] Dr. Christos Fallon ASYMPTOMATIC COVID-19 ANTIGE Non [...] sooner. Performed By: #### C VDAGA #### [facility] [address] [place] [address] Dr. Christos Fallon SARS-CoV-2 (COVID-19) RNA LEROY+probe Ql (Unsp spec) Positive Critically abnormal NEGATIVE [facility] Comment on above: Result Comment: SARS -CoV-2 antigen present; does not rule out coinfection with other pathogens. Performed By: #### C VDAGA #### [facility] [address] [place] [address] Dr. Christos Fallon [facility]06 SARS-CoV-2 (COVID-19) RNA LEROY+probe Ql (Unsp spec) Detected Critically abnormal NOT DETECTED [facility] Comment on above: Result Comment: This test is not yet approved or cleared by the [place] FDA. When there are no FDA-approved or cleared tests available, and other criteria are met, FDA can make tests available under an emergency access mechanism called an Emergency Use Authorization (EUA). The EUA for this test is supported by the [place] Counselor of Health and Human Service's declaration that [...] By: #### C MP, TSH, HSTROPN #### [facility] [address] [place] [address] Dr. Christos Fallon CRPon 11-25-2021 CRP [Mass/Vol] mg/L Normal <=1.0 [facility] Comment on above: Performed By: #### C MP, TSH, HSTROPN #### [facility] [address] [place] [address] Dr. Christos Fallon VIT B12 AND FOLATEon 022 Cobalamin (Vitamin B12) [Mass/Vol] 329.0 pg/mL Normal 239.0-931.0 [facility] Comment on above: Performed By: #### C MP, TSH, HSTROPN #### [facility] [address] [place] [address] Dr. Christos Fallon FOLATE 8.50 ng/mL Normal >=2.76 [facility] Comment on above: Performed By: #### C MP, TSH, HSTROPN #### [facility] [address] [place] [address] Dr. Christos Fallon CBC AUTO DIFFon 11-19-2021 BASO # 0.1 103/ul Normal 0.0-0.1 [facility] Comment on above: Performed By: #### C BC #### [facility] [address] [place] [address] Dr. Christos Fallon Basophils/100 WBC (Bld) 0.8 % Normal 0.2-2.0 [facility] Comment on above: Performed By: #### C BC #### [facility] [address] [place] [address] Dr. Christos Fallon EO # 0.3 103/ul Normal 0.0-0.7 [facility] Comment on above: Performed By: #### C BC #### [facility] [address] [place] [address] Dr. Christos Fallon Eosinophils/100 WBC (Bld) 4.8 % Normal 0.9-7.0 [facility] Comment on above: Performed By: #### C BC #### [facility] [address] [place] [address] Dr. Christos Fallon Erythrocyte distribution width (RBC) [Ratio] 12.2 % Normal 11.0-15.0 [facility] Comment on above: Performed By: #### C BC #### [facility] [address] [place] [address] Dr. Christos Fallon Hematocrit (Bld) [Volume fraction] 41.9 % Normal 36.0-48.0 [facility] Comment on above: Performed By: #### C BC #### [facility] [address] [place] [address] Dr. Christos Fallon Hemoglobin (Bld) [Mass/Vol] 14.2 g/dL Normal 12.0-16.0 [facility] Comment on above: Performed By: #### C BC #### [facility] [address] [place] [address] Dr. Christos Fallon IG # 0.03 10e3/ul Normal 0.00-0.03 [facility] Comment on above: Performed By: #### C BC #### [facility] [address] [place] [address] Dr. Christos Fallon IG % 0.5 % Normal 0.0-0.5 [facility] Comment on above: Performed By: #### C BC #### [facility] [address] [place] [address] Dr. Christos Fallon LYMPH # 1.5 103/ul Normal 1.2-3.8 [facility] Comment on above: Performed By: #### C BC #### [facility] [address] [place] [address] Dr. Christos Fallon Lymphocytes/100 WBC (Bld) 24.6 % Normal 20.5-60.0 [facility] Comment on above: Performed By: #### C BC #### [facility] [address] [place] [address] Dr. Christos Fallon MANUAL DIFF REQ NO Normal [facility] Comment on above: Performed By: #### C BC #### [facility] [address] [place] [address] Dr. Christos Fallon MCH (RBC) [Entitic mass] 34.3 pg Critically high 26.7-34.0 [facility] Comment on above: Performed By: #### C BC #### [facility] [address] [place] [address] Dr. Christos Fallon MCHC (RBC) [Mass/Vol] 33.9 g/dL Normal 29.9-35.2 [facility] Comment on above: Performed By: #### C BC #### [facility] [address] [place] [address] Dr. Christos Fallon MCV (RBC) [Entitic vol] 101.2 fL Critically high 81.0-99.0 [facility] Comment on above: Performed By: #### C BC #### [facility] [address] [place] [address] Dr. Christos Fallon MONO # 0.5 103/ul Normal 0.3-0.8 [facility] Comment on above: Performed By: #### C BC #### [facility] [address] [place] [address] Dr. Christos Fallon Monocytes/100 WBC (Bld) 7.2 % Normal 1.7-12.0 [facility] Comment on above: Performed By: #### C BC #### [facility] [address] [place] [address] Dr. Christos Fallon NEUT # 3.9 103/ul Normal 1.4-6.5 [facility] Comment on above: Performed By: #### C BC #### [facility] [address] [address] [address] Christos Fallon Neutrophils/100 WBC (Bld) 62.1 % Normal 43.0-75.0 [facility] Comment on above: Performed By: #### C BC #### [facility] [address] [address] [address] Christos Fallon Platelet mean volume (Bld) [Entitic vol] 9.1 fL Critically low 9.5-13.5 [facility] Comment on above: Performed By: #### C BC #### [facility] [address] [place] [address] Dr. Christos Fallon PLT 301 103/ul Normal 150-450 [facility] Comment on above: Performed By: #### C BC #### [facility] [address] [place] [address] Dr. Christos Fallon RBC 4.14 106/ul Critically low 4.20-5.40 [facility] Comment on above: Performed By: #### C BC #### [facility] [address] [place] [address] Dr. Christos Fallon WBC 6.3 103/ul Normal 4.0-11.0 [facility] Comment on above: Performed By: #### C BC #### [facility] [address] [place] [address] Dr. Christos Fallon FREE T3on 11-19-2021 FREE T3 2.72 pg/mlL Critically low 2.77-5.27 [facility] Comment on above: Performed By: #### C MP, TSH, HSTROPN #### [facility] [address] [address] [address] Christos Fallon FREE T4on 11-19-2021 Free T4 [Mass/Vol] 1.09 ng/dL Normal 0.78-2.19 [facility] Comment on above: Performed By: #### C MP, TSH, HSTROPN #### [facility] [address] [place] [address] Dr. Christos Fallon GLYCOHEMOGLOBIN A1Con 2021 ADA RECOMMENDATION ADA THERAPEUTIC TARG ET 6.0 - 7.0 ACTION SUGGESTED > 7.0 Normal [facility] Comment on above: Performed By: #### A 1C #### [facility] [address] [address] [address] Christos Fallon Glucose [Mass/Vol] 105 mg/dL Normal [facility] Comment on above: Performed By: #### A 1C #### [facility] [address] [address] [address] Christos Fallon HbA1c (Bld) [Mass fraction] 5.3 % Normal <=6.0 [facility] Comment on above: Performed By: #### A 1C #### [facility] [address] [place] [address] Dr. Christos Fallon LIPID PROFILEon 11-19-2021 CHOL-HDL RATIO NORM SEE BELOW Normal [facility] Comment on above: Result Comment: 3.3 - 4.4 LOW RISK 4.4 - 7.1 AVERAGE RISK 7.1 - 11.0 MODERATE RISK >11.0 HIGH RISK Performed By: #### C MP, TSH, HSTROPN #### [facility] [address] [place] [address] Dr. Christos Fallon Cholesterol [Mass/Vol] 232 mg/dL Critically high <=200 [facility] Comment on above: Performed By: #### C MP, TSH, HSTROPN #### [facility] [address] [place] [address] Dr. Christos Fallon Cholesterol in HDL [Mass/Vol] 60 mg/dL Normal 40-60 [facility] Comment on above: Performed By: #### C MP, TSH, HSTROPN #### [facility] [address] [place] [address] Dr. Christos Fallon Cholesterol in LDL [Mass/Vol] 134.6 mg/dL Normal [facility] Comment on above: Performed By: #### C MP, TSH, HSTROPN #### [facility] [address] [place] [address] Dr. Christos Fallon Cholesterol.total/Cho lesterol in HDL [Mass ratio] 3.9 {ratio} Normal [facility] Comment on above: Performed By: #### C MP, TSH, HSTROPN #### [facility] [address] [address] [address] Christos Fallon HDL NORMAL > or = 60 mg/dl - LO W CARDIOVASCULAR RISK <40 mg/dl - HIGH CARDIOVASCULAR RISK Normal [facility] Comment on above: Performed By: #### C MP, TSH, HSTROPN #### [facility] [address] [address] [address] Christos Fallon LDL CALC NORMAL SEE BELOW Normal [facility] Comment on above: Result Comment: <100 mg/dl OPTIMAL 100 - 129 mg/dl NEAR OR ABOVE OPTIMAL 130 - 159 mg/dl BORDERLINE HIGH 160 - 189 mg/dl HIGH >190 mg/dl VERY HIGH Performed By: #### C MP, TSH, HSTROPN #### [facility] [address] [address] [address] Christos Fallon Triglyceride [Mass/Vol] 187 mg/dL Critically high <=150 [facility] Comment on above: Performed By: #### C MP, TSH, HSTROPN #### [facility] [address] [address] [address] Christos Fallon VLDL CALC 37.4 mg/dL Normal [facility] Comment on above: Performed By: #### C MP, TSH, HSTROPN #### [facility] [address] [address] [address] Christos Fallon PROF 14(COMP METB)on 022 Albumin [Mass/Vol] 3.8 g/dL Normal 3.4-5.0 [facility] Comment on above: Performed By: #### C MP, TSH, HSTROPN #### [facility] [address] [place] [address] Dr. Christos Fallon Albumin/Globulin [Mass ratio] 1.1 {ratio} Normal [facility] Comment on above: Performed By: #### C MP, TSH, HSTROPN #### [facility] [address] [address] [address] Christos Fallon ALP [Catalytic activity/Vol] 77 U/L Normal 46-116 [facility] Comment on above: Performed By: #### C MP, TSH, HSTROPN #### [facility] [address] [place] [address] Dr. Christos Fallon ALT [Catalytic activity/Vol] 34 U/L Normal 14-59 [facility] Comment on above: Performed By: #### C MP, TSH, HSTROPN #### [facility] [address] [place] [address] Dr. Christos Fallon Anion gap [Moles/Vol] 11.5 mmol/L Normal [facility] Comment on above: Performed By: #### C MP, TSH, HSTROPN #### [facility] [address] [place] [address] Dr. Christos Fallon AST [Catalytic activity/Vol] 21 U/L Normal 15-37 [facility] Comment on above: Performed By: #### C MP, TSH, HSTROPN #### [facility] [address] [place] [address] Dr. Christos Fallon Bilirubin [Mass/Vol] 0.7 mg/dL Normal 0.2-1.3 [facility] Comment on above: Performed By: #### C MP, TSH, HSTROPN #### [facility] [address] [place] [address] Dr. Christos Fallon Calcium [Mass/Vol] 8.8 mg/dL Normal 8.5-10.1 [facility] Comment on above: Performed By: #### C MP, TSH, HSTROPN #### [facility] [address] [place] [address] Dr. Christos Fallon Chloride [Moles/Vol] 104 mmol/L Normal 98-107 [facility] Comment on above: Performed By: #### C MP, TSH, HSTROPN #### [facility] [address] [place] [address] Dr. Christos Fallon CO2 [Moles/Vol] 28.6 mmol/L Normal 22.0-30.0 [facility] Comment on above: Performed By: #### C MP, TSH, HSTROPN #### [facility] [address] [place] [address] Dr. Christos Fallon Creatinine [Mass/Vol] 0.88 mg/dL Normal 0.52-1.04 [facility] Comment on above: Performed By: #### C MP, TSH, HSTROPN #### [facility] [address] [place] [address] Dr. Christos Fallon EGFR-AF KYRGYZ >60 Normal >=60 [facility] Comment on above: Performed By: #### C MP, TSH, HSTROPN #### [facility] [address] [place] [address] Dr. Christos Fallon EGFR-NON AF KYRGYZ >60 Normal >=60 [facility] Comment on above: Performed By: #### C MP, TSH, HSTROPN #### [facility] [address] [place] [address] Dr. Christos Fallon Globulin (S) [Mass/Vol] 3.5 g/dL Normal [facility] Comment on above: Performed By: #### C MP, TSH, HSTROPN #### [facility] [address] [place] [address] Dr. Christos Fallon Glucose [Mass/Vol] 101 mg/dL Normal 74-106 [facility] Comment on above: Performed By: #### C MP, TSH, HSTROPN #### [facility] [address] [place] [address] Dr. Christos Fallon Potassium [Moles/Vol] 4.1 mmol/L Normal 3.4-5.0 [facility] Comment on above: Performed By: #### C MP, TSH, HSTROPN #### [facility] [address] [place] [address] Dr. Christos Fallon Protein [Mass/Vol] 7.3 g/dL Normal 6.1-8.2 [facility] Comment on above: Performed By: #### C MP, TSH, HSTROPN #### [facility] [address] [address] [address] Christos Fallon Sodium [Moles/Vol] 140 mmol/L Normal 137-145 [facility] Comment on above: Performed By: #### C MP, TSH, HSTROPN #### [facility] [address] [address] [address] Christos Fallon Urea nitrogen [Mass/Vol] 11.0 mg/dL Normal 7.0-18.0 [facility] Comment on above: Performed By: #### C MP, TSH, HSTROPN #### [facility] [address] [address] [address] Christos Fallon Urea nitrogen/Creatinine [Mass ratio] 12.5 mg/mg Normal [facility] Comment on above: Performed By: #### C MP, TSH, HSTROPN #### [facility] [address] [place] [address] Dr. Christos Fallon TSHon 11-19-2021 TSH 0.774 uIU/mL Normal 0.470-4.680 [facility] Comment on above: Performed By: #### C MP, TSH, HSTROPN #### [facility] [address] [address] [address] Christos Fallon TSH RANGE SEE BELOW Normal [facility] Comment on above: Result Comment: <0.3 4 UIU/ml HYPERTHYROID 0.34-5.60 UIU/ml EUTHYROID >5.60 UIU/ml HYPOTHYROID Performed By: #### C MP, TSH, HSTROPN #### [facility] [address] [place] [address] Dr. Christos Fallon XR TSPINE 2 VIEWSon [...] TAMIE GUILLERMO Date: 2021-11-19 12:49 Normal [facility] Cardiovascular Lab Reporton 11-17-2021 Cardiovascular Lab Report [facility] Patient Name: [facility] MR #: [id number] Physician: Jonny Fowler M.D. Department of Service Date: 11/17/2021 Medicine Birthdate: 1980 Division of Room #: CC Cardiology Adult [facility] Services [address] [id number] Cardiovascular Laboratory Report PROCEDURE: Implantable loop recorder [...] subcutaneous pocket, into which was deployed a [employer] BioMonitor 3 implantable loop recorder. Via off [...] Fowler M.D. Date Trans: 11/17/2021 12:41 P/mmo [id number] cc: Mert Lama M.D. 1 [facility] [id number] Normal [facility] Covid-19 PCR (CVDTB[facility])on SARS-CoV-2 (COVID-19) RNA LEROY+probe Ql (Unsp spec) Not detected Normal NOT DETECTED [facility] Comment on above: Result Comment: This test is not yet approved or cleared by the [place] FDA. When there are no FDA-approved or cleared tests available, and other criteria are met, FDA can make tests available under an emergency access mechanism called an Emergency Use Authorization (EUA). The EUA for this test is supported by the [place] of Health and Human Service's (HHS's) declaration [...] By: #### C MP, TSH, HSTROPN #### [facility] [address] [place] [address] Dr. Christos Fallon Covid-19 PCR (CVDTBH)on SARS-CoV-2 (COVID-19) RNA LEROY+probe Ql (Unsp spec) Not detected Normal NOT DETECTED [facility] Comment on above: Result Comment: [...] for this test is supported by the [place] of Health and Human Service's declaration that [...] longer be used). Performed By: #### C [facility] #### [facility] [address] [place] [address] Dr. Christos Fallon Cardiovascular Lab Reporton 06-17-2021 Cardiovascular Lab Report [facility] Patient Name: [facility] MR #: [id number] Physician: Vishal Rogers MD Department of Service Date: 06/17/2021 Medicine Birthdate: 1980 Division of Room #: CC Cardiology Adult Cardiovascular Services [place] [address] Cardiovascular Laboratory Report COMPREHENSIVE EP STUDY AND [...] His EP Cath: Omid Del Angel/[place], [id number]: Pentarapedro pablo changed to [employer] Irrigated Thermocool ST/SF, [...] content not included)... Normal [facility] FEMUR LEFT 2 VWSon 1 FEMUR LEFT 2 VWS [facility] Department of Radiology [address] [place] [id number] ======== Patient Name: KAILA VASQUEZ : [...] Comments: evaluate Exam: FEMUR LEFT 2 VWS ======== FEMUR LEFT 2 S HISTORY: Postoperative evaluation 4 weeks status post [...] report. Electronically signed: Gelacio Pfeiffer. Transcribed by: [email or web address], User Resident: TAVON BELCHER Electronically Signed by: GELACIO PFEIFFER @ 01/15/2021 12:03 PM I personally read this/these film(s) with this resident Normal [facility] Comment on above: Order Comment: evalu ate Operative Reporton Operative Report MR#: [id number] [facility] Pt. Name: Kaila Vasquez Room #: 0C Discharge 12/05/2020 Date: Birthdate: 1980 OPERATIVE REPORT DATE OF SURGERY: 12/05/2020 SURGEON: Pamella Brennan M.D. PREOPERATIVE DIAGNOSIS: Left distal femur osteochondroma. POSTOPERATIVE DIAGNOSIS: Left distal femur osteochondroma. PROCEDURE PERFORMED: Left distal femur osteochondroma excision. PATIENT REGISTRATION SUPERVISOR: Alaina Edouard M.D. ANESTHESIA: General endotracheal. SPECIMENS: [...] content not included)... Normal [facility] FEMUR LEFT 2 [facility] 1 FEMUR LEFT 2 [facility] Department of Radiology [address] [place] [id number] ======== Patient Name: KAILA VASQUEZ : [...] purposes. Electronically signed: Ching Garcia. Transcribed by: [email or web address], User Resident: Electronically Signed by: CHING GARCIA @ 12/05/2020 11:54 AM Normal [facility] Comment on above: Order Comment: LEFT DISTAL FEMUR OSTEOCHONDROMA EXCISION POC GLUCOSE LABon 12-05-2020 Glucose [Mass/Vol] 108 mg/dL High 70-100 [facility] Comment on above: Performed By: #### 8 [id number] ####[facility] [place] [address], [facility] *MRSA/MSSA DNA NASALon 11-28 *MRSA/MSSA DNA NASAL Clinical Report: (D ) Specimen: NASAL SWAB Collected: 11/28/2020 13:22 Status: Final Last Updated: 2020 13:05 MSSA DNA (Final) Negative MRSA DNA (Final) Negative Normal [facility] Comment on above: Performed By: #### 3 3815 ####[facility] [place] [address], [facility] APTTon 11-28-2020 aPTT Coag (Bld) [Time] 29.1 s Normal 25.0-35.0 [facility] Comment on above: Result Comment: [...] THIS PURPOSE. Performed By: #### 5 7307, [id number] #### [facility] [address] [facility] [place] [address], [facility] BASIC METABOLIC PANELon 11-07 Calcium [Mass/Vol] 9.5 mg/dL Normal 8.6-10.3 [facility] Comment on above: Performed By: #### 0 0071 #### [facility] [address] [facility] [place] [address], [facility] Chloride [Moles/Vol] 104 mmol/L Normal 98-107 [facility] Comment on above: Performed By: #### 0 0071 #### [facility] [address] [facility] [place] [address], [facility] CO2 [Moles/Vol] 28 mmol/L Normal 21-31 [facility] Comment on above: Performed By: #### 0 0071 #### [facility] [address] [facility] [place] [address], [facility] Creatinine [Mass/Vol] 0.90 mg/dL Normal 0.60-1.20 [facility] Comment on above: Performed By: #### 0 0071 #### [facility] [address] [place] [address], [facility] GFR/1.73 sq M.predicted among blacks MDRD (S/P/Bld) [Vol rate/Area] mL/min/{1.73_m2} Normal >60 [facility] Comment on above: Performed By: #### 0 0071 #### [facility] [address] [place] [address], [facility] GFR/1.73 sq M.predicted among non-blacks MDRD (S/P/Bld) [Vol rate/Area] mL/min/{1.73_m2} Normal >60 [facility] Comment on above: Performed By: #### 0 0071 #### [facility] [address] [place] [address], [facility] Glucose [Mass/Vol] 132 mg/dL High 70-100 [facility] Comment on above: Performed By: #### 0 0071 #### [facility] [address] [place] [address], [facility] Potassium [Moles/Vol] 3.8 mmol/L Normal 3.5-5.1 [facility] Comment on above: Performed By: #### 0 0071 #### [facility] [address] [place] [address], [facility] Sodium [Moles/Vol] 138 mmol/L Normal 136-145 [facility] Comment on above: Performed By: #### 0 0071 #### [facility] [address] [place] [address], [facility] Urea nitrogen [Mass/Vol] 9 mg/dL Normal 7-25 [facility] Comment on above: Performed By: #### 0 0071 #### [facility] [address] [place] [address], [facility] CBC W/DIFFon 11-28-2020 ABS IMM GRANS 0.0 10*3/uL Normal 0.0-0.2 [facility] Comment on above: Performed By: #### 5 0103 ####[facility] [place] [address], [facility] ABS NEUTROPHILS 7.2 10*3/uL Normal 1.6-7.6 [facility] Comment on above: Performed By: #### 5 0103 ####[facility] [facility] [place] [address], [facility] Basophils (Bld) [#/Vol] 0.1 10*3/uL Normal 0.0-0.2 [facility] Comment on above: Performed By: #### 5 0103 ####[facility] [place] [address], [facility] Basophils/100 WBC (Bld) 0.6 % Normal 0.0-1.0 [facility] Comment on above: Performed By: #### 5 0103 ####[facility] [facility] [place] [address], [facility] Eosinophils (Bld) [#/Vol] 0.3 10*3/uL Normal 0.0-0.5 [facility] Comment on above: Performed By: #### 5 0103 ####[facility] [facility] [place] [address], [facility] Eosinophils/100 WBC (Bld) 2.6 % Normal 0.0-6.0 [facility] Comment on above: Performed By: #### 5 0103 ####[facility] [facility].[address] Erythrocyte distribution width (RBC) [Ratio] 12.6 % Normal 11.5-15.0 [facility] Comment on above: Performed By: #### 5 0103 ####[facility] [facility] [place] [address], [facility] Hematocrit (Bld) [Volume fraction] 42.6 % Normal 36.0-45.0 [facility] Comment on above: Performed By: #### 5 3 ####[facility] [facility], [place] [address] Hemoglobin (Bld) [Mass/Vol] 14.4 g/dL Normal 12.0-15.0 [facility] Comment on above: Performed By: #### 5 0103 ####[facility] IMMATURE GRANS 0.3 % Normal 0.0-1.0 [facility] Comment on above: Performed By: #### 5 0103 ####[facility] Lymphocytes (Bld) [#/Vol] 2.1 10*3/uL Normal 1.2-4.0 [facility] Comment on above: Performed By: #### 5 3 ####[address] Lymphocytes/100 WBC (Bld) 20.2 % Normal 20.0-45.0 [facility] Comment on above: Performed By: #### 5 3 ####[facility] MCH (RBC) [Entitic mass] 33.6 pg High 27.0-33.0 [facility] Comment on above: Performed By: #### 5 3 ####[facility] MCHC (RBC) [Mass/Vol] 33.8 g/dL Normal 32.0-35.0 [facility] Comment on above: Performed By: #### 5 3 ####[facility] MCV (RBC) [Entitic vol] 99.5 fL High 82.0-98.0 [facility] Comment on above: Performed By: #### 5 3 ####[address] Monocytes (Bld) [#/Vol] 0.7 10*3/uL Normal 0.1-1.0 [facility] Comment on above: Performed By: #### 5 3 ####[facility] [facility] [place] [address], [facility] MONOS 6.4 % Normal 5.0-12.0 [facility] Comment on above: Performed By: #### 5 3 ####[facility] [facility] [place] [address], [facility] Neutrophils/100 WBC (Bld) 69.9 % Normal 40.0-72.0 [facility] Comment on above: Performed By: #### 5 102 ####[facility] [facility] [place] [address], [facility] Nucleated RBC/100 WBC (Bld) [Ratio] 0 % Normal 0-0 [facility] Comment on above: Performed By: #### 5 102 ####[facility] [facility] [place] [address], [facility] PLAT CNT 346 10*3/uL Normal 150-400 [facility] Comment on above: Performed By: #### 5 102 ####[facility] [facility] [place] [address], [facility] RBC (Bld) [#/Vol] 4.28 10*6/uL Normal 3.80-5.00 [facility] Comment on above: Performed By: #### 5 102 ####[facility] [facility] [place] [address], [facility] WBC (Bld) [#/Vol] 10.24 10*3/uL Normal 4.00-10.60 [facility] Comment on above: Performed By: #### 5 102 ####[facility] [facility].[address] PROTHROMBIN TIMEon 1 INR Coag (PPP) [Relative time] 0.99 {INR} Normal 0.91-1.16 [facility] Comment on above: Result Comment: ACCC [...] CHEST 1995;108:[id number]. Performed By: #### 5 7307, [id number] #### [facility] [address] [place] [address], [facility] PT Coag (PPP) [Time] 13.1 s Normal 12.3-14.8 [facility] Comment on above: Result Comment: ALL RESULTS MUST BE INTERPRETED WITH RESPECT TO BLOOD DRAWING ARTIFACT OR DILUTION ERROR OF ANTICOAGULANT AT THE TIME OF SAMPLING. Performed By: #### 5 7307, 06907 #### [facility] [address] [place] [address], [facility] TYPE AND CROSSMATCHon 2020 ABO INTERPRETATION O Normal [facility] Comment on above: Performed By: #### 6 2594 #### [facility] [address] [place] [address], [place] RH INTERPRETATION Positive Normal [facility] Comment on above: Performed By: #### 6 2594 #### [facility] [address] [place] [address], [facility] URINALYSISon 11-28-2020 Appearance (U) CLEAR Normal CLEAR [facility] Comment on above: Performed By: #### 1 0008 #### [facility] [address] [place] [address], [facility] Bilirubin Ql (U) Negative Normal NEGATIVE [facility] Comment on above: Performed By: #### 1 0008 #### [facility] [address] [place] [address], [facility] Color (U) YELLOW Normal YELLOW [facility] Comment on above: Performed By: #### 1 0008 #### [facility] [address] [facility] [place] [address], [facility] Glucose Ql (U) Negative Normal NEGATIVE [facility] Comment on above: Performed By: #### 1 0008 #### [facility] [address] [facility] [place] [address], [facility] Hemoglobin Ql (U) Negative Normal NEGATIVE [facility] Comment on above: Performed By: #### 1 0008 #### [facility] [address] [facility] [place] [address], [facility] KETONE Negative Normal NEGATIVE [facility] Comment on above: Performed By: #### 1 0008 #### [facility] [address] [facility] [place] [address], [facility] LEUK JORDAN Negative Normal NEGATIVE [facility] Comment on above: Performed By: #### 1 0008 #### [facility] [address] [facility] [place] [address], [facility] MICRO NOT DONE Normal [facility] Comment on above: Result Comment: Micr oscopics not performed on urines with negative chemical reactions unless requested in original order Performed By: #### 1 0008 #### [facility] [address] [place] [address], [place] Nitrite Ql (U) Negative Normal NEGATIVE [facility] Comment on above: Performed By: #### 1 0008 #### [facility] [address] [place] [address], [facility] pH (U) 6.0 [pH] Normal 5.0-8.0 [facility] Comment on above: Performed By: #### 1 0008 #### [facility] [address] [place] [address], [facility] Protein Ql (U) Negative Normal NEGATIVE [facility] Comment on above: Performed By: #### 1 0008 #### [facility] [address] [place] [address], [facility] SPEC GRAV 1.018 Normal 1.015-1.020 [facility] Comment on above: Performed By: #### 1 0008 #### [facility] [address] [facility] [place], [place] [address] [place] [address] Vital Signs Date Time Vital Sign Value Performing Clinician Faci lity 08-24-2022 13:44-0500 Body height 162.6 cm Janell Sy MD Work Phone: [facility] 08-24-2022 13:44-0500 Body weight 112.95 kg Janell Sy MD Work Phone: [facility] 08-24-2022 13:44-0500 Diastolic blood pressure 73 mm[Hg] Janell Sy MD Work Phone: [facility] 08-24-2022 13:44-0500 Heart rate 88 /min Janell Sy MD Work Phone: [facility] 08-24-2022 13:44-0500 SaO2% (BldA) [Mass fraction] 98 % Janell Sy MD Work Phone: [facility] 08-24-2022 13:44-0500 Systolic blood pressure 112 mm[Hg] Janell Sy MD Work Phone: [facility] 08-05-2022 10:00-0500 Diastolic blood pressure 88 mm[Hg] Carmen Seese PT Work Phone: [facility] 08-05-2022 10:00-0500 Heart rate 78 /min Carmen Seese PT Work Phone: [facility] 08-05-2022 10:00-0500 Systolic blood pressure 134 mm[Hg] Carmen Seese PT Work Phone: [facility] 07-07-2022 08:12-0500 Body height 162.6 cm Glenroy Syed ASSISTANT BUYER.[employer]YWALL SANDER Work Phone: [facility] 07-07-2022 08:12-0500 Body weight 112.04 kg Glenroy Syed ASSISTANT BUYER.DRYWALL SANDER Work Phone: [facility] 07-07-2022 08:12-0500 Diastolic blood pressure 88 mm[Hg] Glenroy Syed ASSISTANT BUYER.DRYWALL SANDER Work Phone: [facility] 07-07-2022 08:12-0500 Heart rate 82 /min Glenroy Syed ASSISTANT BUYER.DRYWALL SANDER Work Phone: [facility] 07-07-2022 08:12-0500 SaO2% (BldA) [Mass fraction] 98 % Glenroy Syed ASSISTANT BUYER.DRYWALL SANDER Work Phone: [facility] 07-07-2022 08:12-0500 Systolic blood pressure 134 mm[Hg] Glenroy Syed ASSISTANT BUYER.DRYWALL SANDER Work Phone: [facility] 12-09-2021 13:59-0400 Blood Pressure Location Pamella DANIELE [facility] 12-09-2021 13:59-0400 Diastolic blood pressure 78 mm[Hg] Pamella SANABRIA [facility] 12-09-2021 13:59-0400 Heart rate 68 /min Pamella SANABRIA [facility] 12-09-2021 13:59-0400 Respiratory rate 16 /min Pamella SANABRIA [facility] 12-09-2021 13:59-0400 Systolic blood pressure 118 mm[Hg] Pamella SANABRIA [facility] [place] Encounters Encounter Date Encounter Type Care Provider Facility Start: 07-16-2024 ambulatory [facility] Start: 06-29-2024 ambulatory [facility] Start: 06-15-2024 ambulatory [facility] Start: 06-04-2024 End: 06-04-2024 ambulatory Ari Sellers MD Facility:[facility] Start: 05-31-2024 ambulatory [facility] Start: 05-09-2024 ambulatory [facility] Start: 04-27-2024 ambulatory [facility] Start: 03-06-2024 ambulatory [facility] Start: 01-31-2024 ambulatory [facility] Start: 01-24-2024 ambulatory [facility] Start: 12-19-2023 End: 12-20-2023 ambulatory Cristiane Gutiérrez Facility:[facility] Start: 12-02-2023 ambulatory [facility] Start: 10-25-2023 End: 10-25-2023 ambulatory IRMA SUDHA Not Available Start: 08-25-2023 End: 08-25-2023 ambulatory RIMA SUDHA Not Available Start: 10-15-2022 Orders Only Glenroy Syed ASSISTANT BUYER.[employer]WALL SANDER Work Phone: Neurology Comment on above: 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 (Primary Dx) Start: 10-14-2022 End: 10-14-2022 ambulatory GLENROY SYED Facility:[facility] Start: 09-09-2022 ambulatory Mauri Lisa RT(R) Ra soto Comment on above: Radiology MRI Start: 09-09-2022 Patient encounter procedure Mauri Lisa RT(R) RONALDO KIMBERLYCARMELITA Start: 09-02-2022 End: 09-02-2022 ambulatory ELENA GUAN Facility: Start: 08-24-2022 End: 08-24-2022 [facility] Start: 08-24-2022 End: 08-24-2022 Patient encounter procedure Janell Sy MD Work Phone: Cardiology Comment on above: KANG (obstructive sle ep apnea) (Primary Dx); Dizziness; Palpitations; Obesity, morbid, BMI 40.0-49.9 (HCC); SVT (supraventricular tachycardia) (HCC); Chronic fatigue; Vitamin D deficiency Start: 08-20-2022 Orders Only Len OBRIEN.DRYWALL SANDER Work Phone: Neurology Comment on above: Ocular migraine (Dinora andres Dx) Start: 08-19-2022 End: 08-19-2022 ambulatory [facility] Comment on above: Neuro Ophthalmologis t Start: 08-16-2022 ambulatory [facility] Neurology Comment on above: MRI Start: 08-12-2022 End: 08-12-2022 ambulatory GLENROY SYED Facility:[facility] Start: 08-12-2022 End: 08-12-2022 ambulatory Carmen Seese PT Work Phone: Physical Therapy Comment on above: Dizziness (Primary D x); Cervicalgia; Headaches Start: 08-05-2022 End: 08-05-2022 ambulatory GLENROY SYED Facility:[facility] Start: 08-05-2022 End: 08-05-2022 ambulatory Carmen Seese PT Work Phone: Physical Therapy Comment on above: Dizziness (Primary D x); Cervicalgia; Headaches Start: 07-29-2022 End: 07-29-2022 ambulatory WM RODRIGUEZ Facility: Start: 07-21-[address] MERT LAMA Facilit y:[facility] Start: 07-07-2022 Telephone encounter Glenroy Debbie lton ASSISTANT BUYER.[employer]YWALL SANDER Work Phone: Neurology Comment on above: Received Outside Med ical Records Start: 07-07-2022 End: 07-07-2022 ambulatory GLENROY SYED Facility:[facility] Start: 07-07-2022 End: 07-07-2022 Patient encounter procedure Glenroy Syed ASSISTANT BUYER.[employer]YWALL SANDER Work Phone: Neurology Comment on above: Dizziness (Primary D x); Migraine aura without headache; Palpitations; Chronic fatigue; Vision changes; Disturbance of skin sensation Start: 06-14-2022 End: 06-15-[address] MRET LAMA Facility:[facility] Start: 04-14-2022 End: 04-15-2022 ambulatory [...] examination without abnormal findings DR MERT LAMA [facility] Start: 11-19-2021 End: 11-20-[address] [...] KENDRICK BRENNAN Start: 11-28-2020 Antibody screen MERT ORTIZ Comment on above: Performed By: #### 6 2594 #### [address] Start: 11-04-2020 Cystourethroscopy wi th dilation of urethral stricture Pamella SANABRIA Abdominal hysterectomy Wale rodriguez DANIELE Bilateral complete salpingectomy Pamella SANABRIA Cardiac radiofrequen cy ablation using ultrasound guidance Pamella SANABRIA Cholecystectomy Pamella SANABRIA Excision of osteochondroma M nicolle DANIELE History of ankle surgery Carlos SANABRIA Plan of Treatment Date Care Activity Detail Author Start: 08-08-2022 DEPRESSION ASSESSMENT DEPRESSION ASS ESSMENT [facility] Start: 07-07-2022 End: 09-06-2022 25-hydroxyvitamin D3 [Mass/volume] in Serum or Plasma [facility] Work Phone: Comment on above: Expected: 07/07/2022 , Expires: 09/06/2022 Start: 07-07-2022 End: 09-06-2022 ESEQUIEL BY IFA WITH REFLEX [facility] Work Phone: Comment on above: Expected: 07/07/2022 , Expires: 09/06/2022 Start: 04-08-2022 Influenza vaccination INFLUENZA (#1) [facility] Start: 08-08-2021 DEPRESSION ASSESSMENT DEPRESSION ASS ESSMENT [facility] Start: 11-05-2020 COVID-19 VACCINE (3 - Booster for Giancarlo series) COVID-19 VACCINE (3 - Booster for Giancarlo series) [facility] Start: 2012 HPV TESTING HPV TESTING [facility] Start: 11-30-2003 PAP TESTING PAP TESTING [facility] Start: 2001 Urine microalbumin profile DTA P,TDAP,TD (1 - Tdap) [facility] Start: 2000 HEPATITIS C SCREENING HEPATITIS C SC REENING [facility] Start: 2000 HIV SCREENING HIV SCREENING [facility] Start: 1982 HEPATITIS B (1 of 3 - 3-dose series) HEPATITIS B (1 of 3 - 3-dose series) [facility] End: 08-24-2023 ECG COMPLETE ECG COMPLETE ECG Routine Dizziness Palpitations Obesity, morbid, BMI 40.0-49.9 (HCC) 1 Occurrences starting 08/24/2022 until 08/24/2023 Mart[facility] [...] 1 Occurrences starti ng 08/16/2022 until 09/15/2023 [facility] Immunizations Immunization Date Immunization Notes Care Provider Fa subhash 09-10-2020 SARS-CoV-2 (COVID-19 ) Ad26 vaccine, recombinant Pamella NILL [facility] [place] 08-12-2020 SARS-CoV-2 (COVID-19 ) Ad26 vaccine, recombinant Pamella NILL [facility] [place] Payers Date Payer Category Payer Unknown [id number] 2021 Unknown [id number] 1982 Unknown [id number] 2.16.8 40.1.399605.3.579.2.647 1982 Unknown [id number] 2.16.8 40.1.948125.3.579.2.647 1982 Unknown [id number] 2.16.8 40.1.922498.3.579.2.647 1982 Unknown [id number] 2.16.8 40.1.590967.3.579.2.647 1982 Unknown [id number] 2.16.84 0.1.343659.3.579.2.593 1982 Unknown [id number] 2.16.84 0.1.295427.3.579.2.593 1982 Unknown [id number] 2.16.84 0.1.158500.3.579.2.593 1982 Unknown [id number] 2.16.84 0.1.451084.3.579.2.593 1982 Unknown [id number] 2.16.84 0.1.137599.3.579.2.593 1982 Unknown [id number] 2.16.84 0.1.988406.3.579.2.593 1982 Unknown [id number] 2.16.84 0.1.898007.3.579.2.593 1982 Unknown [id number] 2.16.84 0.1.743214.3.579.2.593 1982 Unknown [id number] 2.16.84 0.1.435157.3.579.2.593 1982 Unknown [id number] 2.16.84 0.1.200491.3.579.2.593 1982 Unknown [id number] 2.16.84 0.1.736472.3.579.2.593 1982 Unknown [id number] .16.84 0.1.634714.3.579.2.593 1982 Unknown [id number] 2.16.84 0.1.464153.3.579.2.593 1982 Unknown [id number] 2.16.84 0.1.526398.3.579.2.593 1982 Unknown [id number] 2.16.84 0.1.568817.3.579.2.593 1982 Unknown [id number] 2.16.84 0.1.538264.3.579.2.1259 1982 Unknown [id number] 2.16.84 0.1.142690.3.579.2.1259 1982 Unknown [id number] 2.16.8 40.1.313269.3.579.2.727 1982 Unknown [id number] 2.16. 840.1.613028.3.579.2.196 1959 Unknown [id number] Social History Date Type Detail Facility Start: 12-09-2021 End: 07-07-2022 Tobacco smoking status Never smoked tobacco (finding) [facility] Tobacco smoking status Never General Surgery Talk[facility] Sex Assigned At Female Genera l [facility] Start: 07-07-2022 Tobacco use and exposure Smokeless tobacco non-user [facility] Start: 1980 Sex Assigned At Not on file C [facility] Start: 06-27-2022 End: 07-07-2022 Exposure to SARS-CoV-2 (event) Not sure [facility] Start: 08-24-2022 Alcohol intake Current drinke r of alcohol (finding) [facility] Start: 08-24-2022 Alcohol Comment occasionally 1 -2 times a months 2-3 drinks [facility] Clinical Notes 12-30-2021 to 10-14-2022 Mauri Ross RT(R) - 09/09/2022 2:11 PM Marilyn Sy MD - 08/24/2022 1:45 PM ESTTelephone Encounter - Glenroy Syed APRN.SARIKA - 08/16/2022 8:28 AM Elio Johnson PT - 08/12/2022 2:51 PM EST Note Date & Type Note Facility 10-14-2022 Note HNO ID: [id number] Author: RT Mary(R) Service: ? Author Type: [...] RT Mary(R) October 14, 2022 4:55 PM [facility] 10-14-2022 Note HNO ID: [id number] Author: Papa Rea RN Service: Radiology Author [...] DATE: October 14, 2022 TIME: 3:20 PM [facility] 09-09-2022 Note HNO ID: [id number] Author: RT Odessa(R) Service: ? Author Type: [...] 09, 2022 TIME: 2:11 PM PAGER/CONTACT #: [facility] 09-09-2022 History of Present illness Narrative RADIOLOGY [...] PM PAGER/CONTACT #: documented in this encounter [facility] 08-24-2022 Note HNO ID: [id number] Author: Janell Sy MD Service: ? Author Type: Physician Type: Progress Notes Filed: 08/24/2022 2:17 PM Note Text: [facility] [place] SECTION OF REGIONAL CARDIOLOGY OUTPATIENT VISIT DATE August 24, 2022 OUTPATIENT VISIT TYPE NEW PRIMARY CARE PHYSICIAN: To use this Smartlink, specify the provider ID whose address you want to display, e.g., .USINE IOADDR[1 (where 1 is the provider ID). A [...] Cardiac work-up includes: Echocardiogram on 05/19/2020 at [facility] showed normal ejection fraction. No [...] Never Vaping U (more content not included)... [facility] 08-24-2022 History of Present illness Narrative Images from the original note were not included. [facility] [place] SECTION OF REGIONAL CARDIOLOGY OUTPATIENT VISIT DATE August 24, 2022 OUTPATIENT VISIT TYPE NEW PRIMARY CARE PHYSICIAN: To use this Smartlink, specify the provider ID whose address you want to display, e.g., .USINE IOADDR[1 (where 1 is the provider ID). A [...] Cardiac work-up includes: Echocardiogram on 05/19/2020 at [facility] showed normal ejection fraction. No [...] twice daily.^Disp: ^Rfl: documented in this encounter [facility] 08-19-2022 Note HNO ID: [id number] Author: Mauri Chun OD Service: ? 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 Normal ON appearance Ophthalmic migraines Glasses Rx given with slight prism [facility] 08-16-2022 Miscellaneous Notes signed We can add it to fully evaluate her symptoms. -JOLANTA documented in this encounter [facility] 08-12-2022 Note HNO ID: [id number] Author: Carmen Johnson, PT Service: ? Author [...] Time Minutes (timed/untimed): 60 Carmen Johnson, PT [facility] 08-12-2022 History of Present illness Narrative Episode [...] Carmen Johnson PT documented in this encounter [facility] 08-05-2022 Note HNO ID: [id number] Author: Carmen Johnson PT Service: ? Author [...] Planned: 8 Planned Treatment Interventions: Therapeutic exercise (07624);Neuromuscular re-education (24793);Manual therapy (83124);Therapeutic activities (85002);Self-retirement management (44158);Patient/Family/Caregiver Education;Gait Training (52771);Canalith Repositioning Maneuvers (72178) PLAN FOR NEXT VISIT: Detailed neck exam [...] Premature atrial contra (more content not included)... [facility] 08-05-2022 History of Present illness Narrative Episode [...] Planned: 8 Planned Treatment Interventions: Therapeutic exercise (60177);Neuromuscular re-education (82719);Manual therapy (53204);Therapeutic activities (27205);Self-retirement management (81103);Patient/Family/Caregiver Education;Gait Training (00050);Canalith Repositioning Maneuvers (53042) PLAN FOR NEXT VISIT: Detailed neck exam [...] present Head Shake: Negative Positional Testing Right Clayton-Hallpike: No nystagmus;Asymptomatic Left Juan-Hallpike: No nystagmus;Asymptomatic Right [...] Demonstration;Requires Review/Additional Education TREATMENT: PT Treatment Interventions: Self-Long-Term Management;Therapeutic Exercise Evaluation Therapeutic Exercise: 1: c/s retractions x 10, cues for technique Skilled Intervention: Patient was educated in proper exercise technique and purpose for exercises. Patient education as noted. Self-Long-Term Management: 1: Educated regarding potential multifactorial cause [...] Carmen Johnson PT documented in this encounter [facility] 07-07-2022 Note HNO ID: [id number] Author: Glenroy Syed APRN.SARIKA Service: ? Author Type: Nurse Practitioner Type: Progress Notes Filed: 07/07/2022 12:28 PM Note Text: [facility] General Neurology New Patient Evaluation CHIEF [...] over a month. She has seen an barber apprentice and was told she was having occular migraine by her sales project manager. A couple times a month she gets [...] for 1 dose.N (more content not included)... [facility] 07-07-2022 Miscellaneous Notes Noted. Provider notified. Received medical records from [facility]. Uploaded to chart and forwarded for review. documented in this encounter [facility] 07-07-2022 Instructions Glenroy Syed APRN.SARIKA - 07/07/2022 9:06 AM EST Plan: Baseline labs MRI Brain for multiple symptoms ECHO for palpitations and arrhythmias Aspirin 81mg daily in the setting of known arrhythmias Consult to [place] for dizziness Consult to Cardiology for second opinion Consult to ophthalmology Follow up after testing documented in this encounter [facility] 07-07-2022 History of Present illness Narrative Images from the original note were not included. [facility] General Neurology New Patient Evaluation CHIEF [...] over a month. She has seen an barber apprentice and was told she was having occular migraine by her sales project manager. A couple times a month she gets [...] Finger Abduction (U) 5 Finger Abduction 5 Leasing Sales Consultant 5 Leasing Sales Consultant 5 Right Lower Extremity: (of 5) Left [...] over a month. She has seen an barber apprentice and was told she was having occular migraine by her sales project manager. A couple times a month she gets [...] VT reccommended. Patient wanting second opinion from sales project manager within the [facility], referral placed. Unlikely autonomic dysfunction with unremarkable tilt and orthostatic vitals in office unconvincing (did not take BB today). Additionally, with visual changes, recommended seeing neuro shampooer. Will obtain additional labs as well. Follow [...] which included preparing to see the patient, [id number] patient care, completing clinical documentation, obtaining and/or reviewing separately obtained history, performing a medically appropriate examination, counseling and educating the patient/family/caregiver, ordering medications, tests, or procedures, and care coordination (not separately reported). Glenroy Syed APRN.[facility] General Neurology [address] [place] [address] Appointment: [phone] In regards to blood work, testing, and radiology reports these are released automatically to the patients. We do not comment on most testing on [employer] in a message or commentary unless there [...] your PCP/referring physician documented in this encounter [facility] 03-16-2022 Note EXAM: CHEST 2 VIEWS [...] by: BETTY MORALES Date: 2022-03-16 18:13 [facility] 12-30-2021 Note The [place], [place] NAME: KAILA VASQUEZ DATE OF : MEDICAL REC#: [id number] CORK SLABS SAWYER: [address] [facility], TRANS[facility]MIT DATE: 12/30/2021 09:02:00 SPANISH LANGUAGE LECTURER DATE: 12/30/2021 21:00 DICTATING PHYSICIAN: PAMELLA SANABRIA [...] DR PAMELLA SANABRIA . 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 Migraine with aura, without mention of intractable migraine without mention of status migrainosus Palpitations Chronic fatigue Other malaise and fatigue Vision changes Unspecified visual disturbance Disturbance of skin sensation documented in this encounter [facility] note* Diagnosis Dizziness- Primary Dizziness and giddiness Cervicalgia Headaches documented in this encounter [facility] note* Diagnosis Dizziness- Primary Dizziness and giddiness Cervicalgia Headaches documented in this encounter [facility] note* Diagnosis Cervicalgia- Primary Dizziness Dizziness and giddiness Vision changes Unspecified visual disturbance Disturbance of skin sensation documented in this encounter [facility] note* Diagnosis Ocular migraine- Primary Other forms of migraine, without mention of intractable migraine without mention of status migrainosus documented in this encounter [facility] note* Diagnosis KANG (obstructive sleep apnea)- Primary Obstructive sleep apnea (adult) (pediatric) Dizziness Dizziness and giddiness Palpitations Obesity, morbid, BMI 40.0-49.9 (HCC) Morbid obesity SVT (supraventricular tachycardia) ([facility]) Other specified cardiac dysrhythmias Chronic fatigue Other malaise and fatigue Vitamin D deficiency Unspecified vitamin D deficiency documented in this encounter [facility] note* Diagnosis Degeneration of intervertebral disc of cervical region with osteophyte of cervical vertebra- Primary documented in this encounter [facility] Discharge instructions No data available for this section General Surgery [facility] Reason for referral (narrative)* Outpatient Procedure (Routine) - Authorized Specialty Diagnoses / Procedures Referred By Contac t Referred To Contact [facility] Diagnoses Dizziness Palpitations Obesity, morbid, BMI 40.0-49.9 (HCC) Procedures ECG COMPLETE ECG ROUTINE ECG W/LEAST 12 LDS W/I&R Janell Sy MD [address] [place] [address] [facility] [place] [address] [place] [address] Referral ID Status Reason Start Date Expiration Date Visits Requested Visits Authorized [id number] Authorized Auto-Generat ed Referral 08/24/2022 08/24/2023 1 1 [facility] Summary Purpose Family History No Family History [...] By Contac t Referred To Contact [facility] [place] Diagnoses Degeneration of intervertebral disc of cervical region with osteophyte of cervical vertebra Procedures CONSULT TO [facility] OFFICE/OUTPATIENT [facility] 60-74 MINUTES Glenroy Syed, ASSISTANT BUYER.DRYWALL SANDER [address] [place] [address] Referral ID Status Reason Start Date Expiration Date Visits Requested Visits Authorized [id number] Authorized PCP Requested Referral 10/15/2022 10/15/2023 1 1 Specialty Diagnoses / Procedures Referred By Contac t Referred To Contact Ophthalmology Diagnoses Ocular migraine Procedures CONSULT TO OPHTHALMOLOGY OFFICE/OUTPATIENT [facility] 60-74 MINUTES Len Shea ASSISTANT BUYER.DRYWALL SANDER [address] [place] [phone] [place] [phone] Josefina Grimes MD [address] [place] [address] Referral ID Status Reason Start Date Expiration Date Visits Requested Visits Authorized [id number] Authorized PCP Requested Referral 08/20/2022 08/20/2023 1 1 Specialty Diagnoses / Procedures Referred By Contac t Referred To Contact Cardiology Diagnoses Dizziness Palpitations Procedures CONSULT TO CARDIOLOGY OFFICE/OUTPATIENT [facility] 60-74 MINUTES Glenroy Syed, ASSISTANT BUYER.DRYWALL SANDER [address] [place] [address] Referral ID Status Reason Start Date Expiration Date Visits Requested Visits Authorized [id number] Authorized PCP Requested Referral 2 07/07/2023 1 1 Specialty Diagnoses / Procedures Referred By Contac t Referred To Contact MR IMAGING Diagnoses Dizziness Vision changes Procedures MRI BRAIN WO/W IVCON MRI BRAIN BRAIN STEM W/O W/CONTRAST MATERIAL Glenroy Syed, ASSISTANT BUYER.DRYWALL SANDER [address] [place] [phone] [facility] Referral ID Status Reason Start Date Expiration Date Visits Requested Visits Authorized [id number] Authorized Auto-Generat ed Referral 2 08/21/2022 1 1 Specialty Diagnoses / Procedures Referred By Contac t Referred To Contact Ophthalmology Diagnoses Vision changes Procedures CONSULT TO OPHTHALMOLOGY OFFICE/OUTPATIENT NEW HIGH MDM 60-74 MINUTES Glenroy Syed, ASSISTANT BUYER.DRYWALL SANDER [address] [place] [phone] Josefina Grimes MD [address] [place] [phone] Referral ID Status Reason Start Date Expiration Date Visits Requested Visits Authorized [id number] Authorized PCP Requested Referral 2 07/07/2023 1 1 Specialty Diagnoses / Procedures Referred By Contac t Referred To Contact [facility] Diagnoses Palpitations Procedures ECHO ECHO TTHRC R-T 2D W/WOM-MODE COMPL SPEC&COLR D Glenroy Syed, ASSISTANT BUYER.DRYWALL SANDER [address] [place] [phone] [facility] [place] [address] [place] [address] Referral ID Status Reason Start Date Expiration Date Visits Requested Visits Authorized [id number] Authorized Auto-Generat ed Referral 2 07/07/2023 1 1 Additional Source Comments INFORMATION SOURCE (unrecogn ized section and content) DATE CREATED AUTHOR 11/24/2021 [facility] DATE CREATED AUTHOR AUTHOR'S ORGANIZ ATION 07/20/2022 [facility] DATE CREATED AUTHOR AUTHOR'S ORGANIZ ATION 09/06/2022 [facility] DATE CREATED AUTHOR AUTHOR'S ORGANIZ ATION 10/16/2022 [facility] DATE CREATED AUTHOR AUTHOR'S ORGANIZ ATION 10/26/2023 [facility] EPIC DATE CREATED AUTHOR AUTHOR'S ORGANIZ ATION 01/04/2024 [facility] DATE CREATED AUTHOR AUTHOR'S ORGANIZ ATION 06/09/2024 [facility] DATE CREATED AUTHOR AUTHOR'S ORGANIZ ATION 07/19/2024 [facility] Source Comments (unrecognize d section and content) In the event this informatio n is protected by the Federal Confidentiality of Alcohol and Drug Abuse Patient Records regulations: The Federal rules restrict any use of the information to criminally investigate or prosecute any alcohol or drug abuse patient.[facility] the event this information is protected by the Federal Confidentiality of Alcohol and Drug Abuse Patient Records regulations: The Federal rules restrict any use of the information to criminally investigate or prosecute any alcohol or drug abuse patient.[facility] the event this information is protected by the Federal Confidentiality of Alcohol and Drug Abuse Patient Records regulations: The Federal rules restrict any use of the information to criminally investigate or prosecute any alcohol or drug abuse patient.[facility] the event this information is protected by the Federal Confidentiality of Alcohol and Drug Abuse Patient Records regulations: The Federal rules restrict any use of the information to criminally investigate or prosecute any alcohol or drug abuse patient.[facility] the event this information is protected by the Federal Confidentiality of Alcohol and Drug Abuse Patient Records regulations: The Federal rules restrict any use of the information to criminally investigate or prosecute any alcohol or drug abuse patient.[facility] the event this information is protected by the Federal Confidentiality of Alcohol and Drug Abuse Patient Records regulations: The Federal rules restrict any use of the information to criminally investigate or prosecute any alcohol or drug abuse patient.[facility] the event this information is protected by the Federal Confidentiality of Alcohol and Drug Abuse Patient Records regulations: The Federal rules restrict any use of the information to criminally investigate or prosecute any alcohol or drug abuse patient.[facility] the event this information is protected by the Federal Confidentiality of Alcohol and Drug Abuse Patient Records regulations: The Federal rules restrict any use of the information to criminally investigate or prosecute any alcohol or drug abuse patient.[facility] the event this information is protected by the Federal Confidentiality of Alcohol and Drug Abuse Patient Records regulations: The Federal rules restrict any use of the information to criminally investigate or prosecute any alcohol or drug abuse patient.[facility] the event this information is protected by the Federal Confidentiality of Alcohol and Drug Abuse Patient Records regulations: The Federal rules restrict any use of the information to criminally investigate or prosecute any alcohol or drug abuse patient.[facility] Reason for Visit (unrecogniz ed section [...] NEW RS PT VESTIBULAR DIZZY Glenroy Syed APRN.DRYWALL SANDER [address] [place] [address] Carmen Johnson, PT [address] [place] [address] Referral ID Status Reason Start Date Expiration Date Visits Re quested Visits Authorized [id number] Closed 08/08/2021 08/07/2022 30 30 Reason Comments Physical Therapy Specialty Diagnoses / Procedures Referred By Contac t Referred To Contact PHYSICAL THERAPY Diagnoses Dizziness Procedures Physical Therapy Glenroy Syed APRN.DRYWALL SANDER [address] [place] [address] [facility] [address] [place] [address] Referral ID Status Reason Start Date Expiration Date V isits Requested Visits Authorized [id number] Pending Review 08/12/2022 11/10/2022 1 1 Reason Comments Establish Care Palpitations Dizziness Specialty Diagnoses / Procedures Referred By Contac t Referred To Contact Cardiology Diagnoses Dizziness Palpitations Procedures CONSULT TO CARDIOLOGY OFFICE/OUTPATIENT [facility] 60-74 MINUTES Glenroy Syed, ASSISTANT BUYER.DRYWALL SANDER [address] [place] [address] Referral ID Status Reason Start Date Expiration Date V isits Requested Visits Authorized [id number] Closed PCP Requested Referral 07/07/2022 07/07/2023 1 1 Reason Comments Radiology MRI Care Teams (unrecognized sec tion and content) Special Systems Technician Relationship Specialty Start Date End Date Mert Lama MD [address] [place] [address] Referring Family Medicine 06/10/22 Special Systems Technician Relationship Specialty Start Date End Date Mert Lama MD [address] [place] [address] Referring Family Medicine 06/10/22 Special Systems Technician Relationship Specialty Start Date End Date Mert Lama MD [address] [place] [id number] Referring Family Medicine 06/10/22 Special Systems Technician Relationship Specialty Start Date End Date Mert Lama MD [address] [place] [phone] Referring Family Medicine 06/10/22 Special Systems Technician Relationship Specialty Start Date End Date Mert Lama MD [address] [place] [phone] Referring Family Medicine 06/10/22 Special Systems Technician Relationship Specialty Start Date End Date Mert Lama MD [address] [facility] [place] [place] [address] Referring [facility] 06/10/22 Special Systems Technician Relationship Specialty Start Date End Date Mert Lama MD [address] [facility] [place] [address] Referring [facility] 06/10/22 Special Systems Technician Relationship Specialty Start Date End Date Mert Lama MD [address] [place] [address] Referring [facility] 06/10/22 FOR RECORDS PERTAINING TO PATIENTS WHO [...] BE BASED ON THE PRIMARY CLINICAL RECORDS. [facility]. provides no warranty or guarantee of the accuracy or completeness of information in this document.
[2024-09-12 07:55] LABS: Basophils Absolute Auto 0.1 10^3/uL (0.0-0.1); Basophils Percent Auto 0.9 % (0.2-2.0); Eosinophils Absolute Auto 0.3 10^3/uL (0.0-0.7); Eosinophils Percent Auto 4.5 % (0.9-7.0); Hematocrit 42.4 % (36.0-48.0); Hemoglobin 14.3 g/dL (12.0-16.0); Immature Granulocytes Abs Auto 0.02 10^3/uL (0.00-0.03); Immature Granulocytes Pct Auto 0.3 % (0.0-0.5); Lymphocytes Absolute Auto 2.2 10^3/uL (1.2-3.8); Mean Corpuscular HGB Conc 33.7 g/dL (29.9-35.2); Mean Corpuscular Hemoglobin 35.1 pg (26.7-34.0); Mean Corpuscular Volume 104.2 fL (81.0-99.0); Mean Platelet Volume 9.6 fL (9.5-13.5); Monocytes Absolute Auto 0.7 10^3/uL (0.3-0.8); Neutrophils Absolute Auto 3.4 10^3/uL (1.4-6.5); Neutrophils Percent Auto 51.3 % (43.0-75.0); Platelet Count 291 10^3/uL (150-450); Red Blood Count 4.07 10^6/uL (4.20-5.40); Red Cell Distribution Width 13.2 % (11.0-15.0); White Blood Count 6.6 10^3/uL (4.0-11.0)
[2024-09-12 08:37] LABS: Alanine Aminotransferase 40 U/L (14-59); Albumin Globulin Ratio 1.1; Albumin Level 3.5 g/dL (3.4-5.0); Alkaline Phosphatase 75 U/L (46-116); Aspartate Amino Transferase 22 U/L (15-37); BUN Creatinine Ratio 9.1; Bilirubin Total 0.7 mg/dL (0.2-1.0); Calcium 8.6 mg/dL (8.5-10.1); Carbon Dioxide 28.4 mmol/L (21.0-32.0); Chloride 105 mmol/L (98-107); Cholesterol 176 mg/dL (<=200); Estimated GFR (African America >60 (>=60 mL/min/1.73m^2); Estimated GFR (Non-African Ame >60 (>=60 mL/min/1.73m^2); Globulin 3.3 g/dL; Glucose 100 mg/dL (74-106); HDL Cholesterol 59 mg/dL (40-60); LDL Cholesterol Calculated 88.8 mg/dL; Potassium 4.4 mmol/L (3.5-5.1); Sodium 143 mmol/L (136-145); Total Protein 6.8 g/dL (6.4-8.2); Triglycerides 141 mg/dL (<=150); VLDL CHOLESTEROL 28.2 mg/dL
[2024-09-12 08:59] LABS: Estimated Average Glucose 97 mg/dL
--- OUTSIDE RECORDS SUMMARY | 2024-09-12 15:51 | XMS_ITS | CCD ---
Author Organization [facility] Care Team Providers Care Java Systems Analyst Name Role Phone MERT LAMA Referring Unavailable PAMELLA BRENNAN Attending Unavailable MIKA, PAMELLA Ang Surgeon Unavailable PAMELLA BRENNAN Admitting Unavailable [place] Procedure Practitioner Unavailab MERT Caban Primary Care [...] Attending Unavailable MERT LAMA Primary Care Physician [phone] Mert Lama MD Unavailable DANIEL, DR MERT Forrest Primary Care Unavailable ADNIEL, DR MERT Forrest Consulting Unavailable DANIEL, DR [...] JONNY Referring Unavailable SUE, VISHAL Referring Unavailable MNAUEL, JONNY Referring Unavailable SUE, VISHAL Referring Unavailable [...] Comment on above: Take 1 capsule by [facility] once daily. Problems Active Problems Problem Classification [...] 04-21-2022 Chronic Other aftercare (1 source) Other long-term (current) drug therapy; Translations: [OTH SNF CURRENT DRUG THERAPY] Onset: 09-06-2022 Episodic Other [...] Range Facility ED Note-Physicianon 01-03-20 ED Note-Physician [id number]#1.00 TIFF [facility] RAD - MRI Reporton RAD - MRI Report [id number]#1.0 0TIFF [facility] RAD - MRI Report [id number]#1.0 0TIFF [facility] RAD - MRI Report [id number]#1.00 TIFF [facility] RAD - MRI Report [id number]#1.00 TIFF [facility] RAD - MRI Report [id number]#1.0 0TIFF [facility] RAD - MRI Report [id number]#1.00 TIFF [facility] Physician Orderon 12-22-2023 Physician Order [id number]#1.00 TIFF Normal [facility] Provider Letteron 12-21-2023 Provider Letter December 21, 2023 KAILA VASQUEZ [address] [place] [address] : 1980 To Whom It May Concern, Please excuse above patient from work. Date of Illness: From: 12/19/2023 To: 12/21/2023 May Return to Work On: 12/22/2023 Sincerely, JERMAIN Stewart-Ni [address] [address] Normal [facility] Lab Reportson 12-20-2023 Lab Reports [id number]#1.00 TIFF [facility] Physician Orderon 12-20-2023 Physician Order [id number]#1.00 TIFF [facility] RAD - MISCon 12-20-2023 RAD - MISC [id number]#1.00 TIFF [facility] Ambulatory Visit Summaryon 0 12-19-2023 Ambulatory [...] sciatica BMI 40.0-44.9, adult Non-smoker Pickup at [facility]/pharmacy #[id number] New meloxicam (meloxicam 15 mg Tab) 1 Tablets By Mouth Every day Low back pain with sciatica BMI 40.0-44.9, adult Non-smoker Pickup at [facility]/pharmacy #6177 New methylPREDNISolone (Medrol 4 mg Tab) 1 Packets By Mouth As Directed Low back pain with sciatica BMI 40.0-44.9, adult Non-smoker Duration: 6 Days as directed on package labeling [facility] Unchanged metoprolol (Metoprolol tartrate 50 mg Tab) 1 Tablets By Mouth 2 times a day Pharmacy Information [facility]/pharmacy #[id number]: [address], [place] [id number] [phone] Medications and Immunizations Administered Given ketorolac 30 [...] choosing us for your care. 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 Had x-ray done at [facility] for spine over a year or [...] Bedtime for spasm, 20 cap(s), Refill(s) 0, [facility]/pharmacy #6177, 165.1, cm, 12/19/23 13:17:00 EDT, Height/Length Dosing, 114.6, kg, 12/19/23 13:17:00 EDT, Weight Dosing ketorolac, 30 mg = 1 mL, Injection, IntraMuscular, Once, Stop date 12/19/23 13:35:00 EDT, Routine, Start date 12/19/23 13:35:00 EDT, 12/19/23 13:35:00 EDT meloxicam, 15 mg = 1 tab(s), Oral, Daily, # 30 tab(s), Refills(s) 0, Pharmacy: [facility]/pharmacy #6177, 165.1, cm, 12/19/23 13:17:00 EDT, Height/Length Dosing, 114.6, kg, 12/19/23 13:17:00 EDT, Weight Dosing methylPREDNISolone, = 1 packet(s), Oral, As Directed, as directed on package labeling, X 6 day(s), # 21 tab(s), Refills(s) 0, Pharmacy: [facility]/pharmacy #6177, 165.1, cm, 12/19/23 [...] Daily, # 30 tab(s), Refills(s) 0, Pharmacy: [facility]/pharmacy #6177, 165.1, cm, 12/19/23 13:17:00 EDT, Height/Length Dosing, 114.6, kg, 12/19/23 13:17:00 EDT, Weight Dosing methylPREDNISolone, = 1 packet(s), Oral, As Directed, as directed on package labeling, X 6 day(s), # 21 tab(s), Refills(s) 0, Pharmacy: [facility]/pharmacy #6177, 165.1, cm, 12/19/23 13:17:00 EDT, Height/Length Dosing, 114.6, kg, 12/19/23 13:17:00 EDT, Weight Dosing 3. Non-smoker (Z78.9: Other specified health status) continue not smoking Ordered: cyclobenzaprine, 15 mg, 1 cap(s), Oral, Bedtime for spasm, 20 cap(s), Refill(s) 0, [facility]/pharmacy #[id number], 165.1, cm, 12/19/23 13:17:00 EDT, Height/Length Dosing, 114.6, kg, 12/19/23 13:17:00 EDT, Weight Dosing ketorolac, 30 mg = 1 mL, Injection, IntraMuscular, Once, Stop date 12/19/23:35:00 EDT, Routine, Start date 12/19/23 13:35:00 EDT, 12/19/23 13:35:00 EDT meloxicam, 15 mg = 1 tab(s), Oral, Daily, # 30 tab(s), Refills(s) 0, Pharmacy: [facility]/pharmacy #6177, 165.1, cm, 12/19/23 13:17:00 EDT, Height/Length Dosing, 114.6, kg, 12/19/23 13:17:00 EDT, Weight Dosing methylPREDNISolone, = 1 packet(s), Oral, As Directed, as directed on package labeling, X 6 day(s), # 21 tab(s), Refills(s) 0, Pharmacy: [facility]/pharmacy #[id number], 165.1, cm, 12/19/23 13:17:00 EDT, Height/Length Dosing, 114.6, kg, 12/19/23 13:17:00 EDT, Weight Dosing Follow-up No qualifying data available Problem List/Past Medical History Ongoing Anemia Anxiety (more content not included)... [facility] Comment on above: Result Comment: Elec tronically Signed By: Cristiane Brasher\.br\Date and Time Signed: 12/19/23 13:59 EDT Physician Orderon 12-19-2023 Physician Order [id number]#1.00 TIFF [facility] Consultation Noteon 02-15-20 Consultation Note [id number]#1.0 0CD:127 [facility] Consultation Noteon 02-05-20 Consultation Note [id number]#1.0 0CD:127 [facility] Comment on above: Other Comment: INCOM PLETE FAX.NDW Formson 02-02-2023 Forms [id number]#1.0 0CD:127 [facility] Consultation Noteon 01-29-20 Consultation Note [id number]#1.00 CD:127 [facility] Cardiovascular Reporton 01-06 Cardiovascular Report [id number]#1.0 0CD:127 [facility] MRI BRAIN WO/W IVCONon 10-14 MRI [...] cord. No mass or pathologic intradural enhancement. Sandwich Hand: NARCISO Transcribe Date/Time: Oct 14 2022 8:43P Dictated by : UNIQUE ANDERSON MD This examination was interpreted and the report reviewed and electronically signed by: UNIQUE ANDERSON MD on Oct 14 2022 8:51PM EST [id number] Normal [facility] MRI CERVICAL SPINE WO/W IVCO Non [...] cord. No mass or pathologic intradural enhancement. Sandwich Hand: NARCISO Transcribe Date/Time: Oct 14 2022 8:43P Dictated by : UNIQUE ANDERSON MD This examination was interpreted and the report reviewed and electronically signed by: UNIQUE ANDERSON MD on Oct 14 2022 8:51PM EST [id number] Normal [facility] CBC AUTO DIFFon 09-02-2022 BASO # 0.1 103/ul Normal 0.0-0.1 [facility] Comment on above: Performed By: #### C MP, TSH, HSTROPN #### [facility] [address] [address] [address] Christos Fallon Basophils/100 WBC (Bld) 0.5 % Normal 0.2-2.0 [facility] Comment on above: Performed By: #### C MP, TSH, HSTROPN #### [facility] [address] [place], [place] [address] Dr. Christos Fallon EO # 0.2 103/ul Normal 0.0-0.7 [facility] Comment on above: Performed By: #### C MP, TSH, HSTROPN #### [facility] [address] [place] [address] Dr. Christos Fallon Eosinophils/100 WBC (Bld) 2.3 % Normal 0.9-7.0 [facility] Comment on above: Performed By: #### C MP, TSH, HSTROPN #### [facility] [address] [place] [address] Dr. Christos Fallon Erythrocyte distribution width (RBC) [Ratio] 13.0 % Normal 11.0-15.0 [facility] Comment on above: Performed By: #### C MP, TSH, HSTROPN #### [facility] [address] [place] [address] Dr. Christos Fallon Hematocrit (Bld) [Volume fraction] 43.0 % Normal 36.0-48.0 [facility] Comment on above: Performed By: #### C MP, TSH, HSTROPN #### [facility] [address] [place] [address] Dr. Christos Fallon Hemoglobin (Bld) [Mass/Vol] 13.9 g/dL Normal 12.0-16.0 [facility] Comment on above: Performed By: #### C MP, TSH, HSTROPN #### [facility] [address] [place] [address] Dr. Christos Fallon IG # 0.03 10e3/ul Normal 0.00-0.03 [facility] Comment on above: Performed By: #### C MP, TSH, HSTROPN #### [facility] [address] [place] [address] Dr. Christos Fallon IG % 0.3 % Normal 0.0-0.5 [facility] Comment on above: Performed By: #### C MP, TSH, HSTROPN #### [facility] [address] [place] [address] Dr. Christos Fallon LYMPH # 2.8 103/ul Normal 1.2-3.8 [facility] Comment on above: Performed By: #### C MP, TSH, HSTROPN #### [facility] [address] [place] [address] Dr. Christos Fallon Lymphocytes/100 WBC (Bld) 29.6 % Normal 20.5-60.0 [facility] Comment on above: Performed By: #### C MP, TSH, HSTROPN #### [facility] [address] [place] [address] Dr. Christos Fallon MANUAL DIFF REQ NO Normal [facility] Comment on above: Performed By: #### C MP, TSH, HSTROPN #### [facility] [address] [place] [address] Dr. Christos Fallon MCH (RBC) [Entitic mass] 34.8 pg Critically high 26.7-34.0 [facility] Comment on above: Performed By: #### C MP, TSH, HSTROPN #### [facility] [address] [place] [address] Dr. Christos Fallon MCHC (RBC) [Mass/Vol] 32.3 g/dL Normal 29.9-35.2 [facility] Comment on above: Performed By: #### C MP, TSH, HSTROPN #### [facility] [address] [place] [address] Dr. Christos Fallon MCV (RBC) [Entitic vol] 107.5 fL Critically high 81.0-99.0 [facility] Comment on above: Performed By: #### C MP, TSH, HSTROPN #### [facility] [address] [place] [address] Dr. Christos Fallon MONO # 0.7 103/ul Normal 0.3-0.8 [facility] Comment on above: Performed By: #### C MP, TSH, HSTROPN #### [facility] [address] [place] [address] Dr. Christos Fallon Monocytes/100 WBC (Bld) 7.7 % Normal 1.7-12.0 [facility] Comment on above: Performed By: #### C MP, TSH, HSTROPN #### [facility] [address] [place] [address] Dr. Christos Fallon NEUT # 5.7 103/ul Normal 1.4-6.5 [facility] Comment on above: Performed By: #### C MP, TSH, HSTROPN #### [facility] [address] [address] [address] Christos Fallon Neutrophils/100 WBC (Bld) 59.6 % Normal 43.0-75.0 [facility] Comment on above: Performed By: #### C MP, TSH, HSTROPN #### [facility] [address] [address] [address] Christos Fallon Platelet mean volume (Bld) [Entitic vol] 9.9 fL Normal 9.5-13.5 [facility] Comment on above: Performed By: #### C MP, TSH, HSTROPN #### [facility] [address] [place] [address] Dr. Christos Fallon PLT 309 103/ul Normal 150-450 [facility] Comment on above: Performed By: #### C MP, TSH, HSTROPN #### [facility] [address] [place] [address] Dr. Christos Fallon RBC 4.00 106/ul Critically low 4.20-5.40 [facility] Comment on above: Performed By: #### C MP, TSH, HSTROPN #### [facility] [address] [place] [address] Dr. Christos Fallon WBC 9.6 103/ul Normal 4.0-11.0 [facility] Comment on above: Performed By: #### C MP, TSH, HSTROPN #### [facility] [address] [place] [address] Dr. Christos Fallon D-DIMERon 09-02-2022 D-DIMER 0.28 mg/L FEU Normal <=0.59 [facility] Comment on above: Performed By: #### C MP, TSH, HSTROPN #### [facility] [address] [place] [address] Dr. Christos Fallon D-DIMER COMMENTS SEE BELOW Normal [facility] Comment on above: Result Comment: Incr [...] By: #### C MP, TSH, HSTROPN #### [facility] [address] [address] [address] Christos Fallon PROF 14(COMP METB)on 023 Albumin [Mass/Vol] 3.8 g/dL Normal 3.4-5.0 [facility] Comment on above: Performed By: #### C MP, TSH, HSTROPN #### [facility] [address] [place] [address] Dr. Christos Fallon Albumin/Globulin [Mass ratio] 1.2 {ratio} Normal [facility] Comment on above: Performed By: #### C MP, TSH, HSTROPN #### [facility] [address] [place] [address] Dr. Christos Fallon ALP [Catalytic activity/Vol] 85 U/L Normal 46-116 [facility] Comment on above: Performed By: #### C MP, TSH, HSTROPN #### [facility] [address] [place] [address] Dr. Christos Fallon ALT [Catalytic activity/Vol] 39 U/L Normal 14-59 [facility] Comment on above: Performed By: #### C MP, TSH, HSTROPN #### [facility] [address] [address] [address] Christos Fallon Anion gap [Moles/Vol] 16.3 mmol/L Normal [facility] Comment on above: Performed By: #### C MP, TSH, HSTROPN #### [facility] [address] [address] [address] Christos Fallon AST [Catalytic activity/Vol] 19 U/L Normal 15-37 [facility] Comment on above: Performed By: #### C MP, TSH, HSTROPN #### [facility] [address] [address] [address] Christos Fallon Bilirubin [Mass/Vol] 0.4 mg/dL Normal 0.2-1.0 [facility] Comment on above: Performed By: #### C MP, TSH, HSTROPN #### [facility] [address] [place] [address] Dr. Christos Fallon Calcium [Mass/Vol] 9.2 mg/dL Normal 8.5-10.1 [facility] Comment on above: Performed By: #### C MP, TSH, HSTROPN #### [facility] [address] [place] [address] Dr. Christos Fallon Chloride [Moles/Vol] 101 mmol/L Normal 98-107 [facility] Comment on above: Performed By: #### C MP, TSH, HSTROPN #### [facility] [address] [place] [address] Dr. Christos Fallon CO2 [Moles/Vol] 24.9 mmol/L Normal 21.0-32.0 [facility] Comment on above: Performed By: #### C MP, TSH, HSTROPN #### [facility] [address] [place] [address] Dr. Christos Fallon Creatinine [Mass/Vol] 0.83 mg/dL Normal 0.55-1.02 [facility] Comment on above: Performed By: #### C MP, TSH, HSTROPN #### [facility] [address] [place] [address] Dr. Christos Fallon EGFR-AF [place] >60 Normal >=60 [facility] Comment on above: Performed By: #### C MP, TSH, HSTROPN #### [facility] [address] [place] [address] Dr. Christos Fallon EGFR-NON AF [place] >60 Normal >=60 [facility] Comment on above: Performed By: #### C MP, TSH, HSTROPN #### [facility] [address] [place] [address] Dr. Christos Fallon Globulin (S) [Mass/Vol] 3.2 g/dL Normal [facility] Comment on above: Performed By: #### C MP, TSH, HSTROPN #### [facility] [address] [place] [address] Dr. Christos Fallon Glucose [Mass/Vol] 142 mg/dL Critically high 74-106 [facility] Comment on above: Performed By: #### C MP, TSH, HSTROPN #### [facility] [address] [place] [address] Dr. Christos Fallon Potassium [Moles/Vol] 3.2 mmol/L Critically low 3.5-5.1 [facility] Comment on above: Performed By: #### C MP, TSH, HSTROPN #### [facility] [address] [place] [address] Dr. Christos Fallon Protein [Mass/Vol] 7.0 g/dL Normal 6.4-8.2 [facility] Comment on above: Performed By: #### C MP, TSH, HSTROPN #### [facility] [address] [place] [address] Dr. Christos Fallon Sodium [Moles/Vol] 139 mmol/L Normal 136-145 [facility] Comment on above: Performed By: #### C MP, TSH, HSTROPN #### [facility] [address] [place] [address] Dr. Christos Fallon Urea nitrogen [Mass/Vol] 10.0 mg/dL Normal 7.0-18.0 [facility] Comment on above: Performed By: #### C MP, TSH, HSTROPN #### [facility] [address] [place] [address] Dr. Christos Fallon Urea nitrogen/Creatinine [Mass ratio] 12.0 mg/mg Normal [facility] Comment on above: Performed By: #### C MP, TSH, HSTROPN #### [facility] [address] [place] [address] Dr. Christos Fallon PROTIMEon 09-02-2022 INR Coag (PPP) [Relative time] {INR} Normal [facility] Comment on above: Performed By: #### C MP, TSH, HSTROPN #### [facility] [address] [place] [address] Dr. Christos Fallon INR GUIDELINES SEE BELOW Normal [facility] Comment on above: Result Comment: GUALBERTO RED INR: 2.0 - 3.0 CONDITIONS NOT LISTED BELOW 2.5 - 3.5 FOR PROSTHETIC HEART VALVE REPLACEMENT 2.5 - 3.5 RECURRENT THROMBOSIS Performed By: #### C MP, TSH, HSTROPN #### [facility] [address] [address] [address] Christos Fallon PT Coag (PPP) [Time] 9.7 s Normal 9.0-11.6 [facility] Comment on above: Performed By: #### C MP, TSH, HSTROPN #### [facility] [address] [place] [address] Dr. Christos Fallon PTTon 09-02-2022 aPTT Coag (Bld) [Time] 25.9 s Normal 22.3-36.2 [facility] Comment on above: Performed By: #### C MP, TSH, HSTROPN #### [facility] [address] [place] [address] Dr. Christos Fallon TROPONIN, HIGH SENSITIVITYon 09-02-2022 HSTROP <4.0 Normal 4.0-51.3 [facility] Comment on above: Result Comment: CUT- OFF POINTS HAVE BEEN ESTABLISHED BASED ON THE FOURTH UNIVERSAL DEFINITIONS OF MYOCARDIAL INFARCTION. THE UPPER REFERENCE LIMIT (URL) OF TROPONIN, DEFINED THE 99TH PERCENTILE OF cTnI DISTRIBUTION IN A REFERENCE POPULATION, HAS BEEN CONFIRMED THE DECISION THRESHOLD FOR NC DIAGNOSIS. Performed By: #### C MP, TSH, HSTROPN #### [facility] [address] [place] [address] Dr. Christos Fallon TSHon 09-02-2022 TSH 0.813 uIU/mL Normal 0.358-3.740 [facility] Comment on above: Performed By: #### C MP, TSH, HSTROPN #### [facility] [address] [address] [address] Christos Fallon XR CHEST 1 Von [...] by: LEEANNE MON Date: 2022-09-02 15:09 Normal [facility] CNOVon 08-24-2022 CNOV Office Visit (CARDLO ) CHRISTINAKAILA SHELLEY Emily ([id number]) 1980 F Date Time Provider Department 08/24/22 2:00 PM JANELL SY During your visit today, we recorded the following information about you: Pulse Blood pressure Weight Height 88/minute 112/73 112.9 kg 1.626 m Janell Sy MD 08/24/2022 2:17 PM Signed [facility] [place] SECTION OF REGIONAL CARDIOLOGY OUTPATIENT VISIT DATE August 24, 2022 OUTPATIENT VISIT TYPE NEW PRIMARY CARE PHYSICIAN: To use this Smartlink, specify the provider ID whose address you want to display, e.g., .PROVADDR[1 (where 1 is the provider ID). A written report of the findings and recommendations will be sent to the requesting provider via shared medical record or via [facility]. Patient is being seen at the [...] Cardiac work-up includes: Echocardiogram on 05/19/2020 at [facility] showed normal ejection fraction. No valvular [...] ECG COMPLETE 4. Obesity, morbid, BMI 40.0-49.9 ([facility]) E66.01 ECG COMPLETE 5. SVT (supraventricular tachycardia) ([facility]) I47.1 6. Chronic fatigue R53.82 [...] apnea) Palpitatio (more content not included)... Normal [facility] ECG COMPLETEon 08-24-2022 ECG COMPLETE Ventricular Rate : 8 4 BPM Atrial Rate : 84 BPM P-R Interval : 166 ms QRS Duration : 92 ms Q-T Interval : 358 ms QTC Calculation(Bazett) : 423 ms Calculated P [place] : 60 degrees Calculated R [place] : 45 degrees Calculated T [place] : 45 degrees NORMAL SINUS RHYTHM INCREASED R/S RATIO IN V1, CONSIDER EARLY TRANSITION OR POSTERIOR INFARCT ABNORMAL ECG Confirmed by MEERA BOYD M.D. ([id number]) on 08/28/2022 3:03:10 PM NAME : KAILA VASQUEZ PID : [id number] : 1980 Gender : Female Race : ORD : [id number] Procedure Date : Aug 24 2022 13:56:02 [...] JANELL SY Acquired by : Jose browning [facility] CNTHERAPYon 08-12-2022 CNTHERAPY OT/PT/Speech Visit (PTAMCF) KAILA VASQUEZ ([id number]) 1980 F Date Time Provider Department 08/12/22 2:45 PM [facility] Date Time Provider Department Center 08/12/2022 2:45 PM [id number], KARA [facility] Reason for Visit: Physical Therapy [503] Primary [...] % (flush) 10 mL (BD POSIFLUSH) Jose [facility] CNTHERAPYon 08-05-2022 CNTHERAPY OT/PT/Speech Visit (PTAMCF) KAILA VASQUEZ ([id number]) 1980 F Date Time Provider Department 08/05/22 9:15 AM [facility] Date Time Provider Department Anthony 08/05/2022 9:15 AM [id number] [facility] Reason for Visit: PT Eval [747] Primary [...] % (flush) 10 mL (BD POSIFLUSH) Normal [facility] Covid-19 PCR ([facility])on 07-09 SARS-CoV-2 (COVID-19) RNA LEROY+probe Ql (Unsp spec) Not detected Normal NOT DETECTED [facility] Comment on above: Result [...] for this test is supported by the [employer] of Health and Human Service's declaration that [...] used). Performed By: #### C VDAGA #### [facility] [address] [place] [address] Dr. Christos Fallon 25([place])D3 [facility] 2021 25-hydroxyvitamin D3 [Mass/Vol] 15.8 ng/mL Low 31.0-80.0 [facility] Comment on above: Order Comment: Speci men Type: BLOOD SPECIMENOrdering Facility: [facility] Address: [address] [address] Result Comment: Clas sification of 25 [place] Vitamin D status: Deficiency/Insufficiency: < or = 30 ng/ml. Sufficiency/Optimal Levels: 31-80 ng/mL Toxicity: > 100 ng/mL. Test performed by chemiluminescent immunoassay. Performed By: #### 1 989-3 ####[facility] LABCLIA [id number] [address] [place] ESEQUIEL BY IFA WITH REFLEXon ESEQUIEL PATTERN Nuclear fine speckled Normal Cl [facility] Comment on above: Order Comment: Bryan hernández Type: BLOOD SPECIMENOrdering Facility: [facility] Address: [address] [address] Performed By: #### 2 9374-6, 79725-4, 09188-3, 14101-9, 75254-7, ANAIFR, 87997-3, 18637-9, 01705-7, 49394-6 ####[facility] LABCLIA [id number] [address] [address] [place] ESEQUIEL TITER 1:160 Normal [facility] Comment on above: Order Comment: Speci men Type: BLOOD SPECIMENOrdering Facility: [facility] Address: [address] [place] [address] Performed By: #### 2 9374-6, 81037-9, 27059-8, 75790-8, 86914-2, ANAIFR, 42340-7, 92846-0, 48630-7, 18002-9 ####[facility] LABCLIA [id number] [place] [address] [place] Nuclear Ab IF (S) [Titer] Positive Abnormal Negative [facility] Comment on above: Order Comment: Speci men Type: BLOOD SPECIMENOrdering Facility: [facility] Address: [address] [place] [address] Result Comment: Anti -nuclear antibody test is used as an aid in diagnosis of systemic autoimmune diseases. Where positive and clinically warranted, follow-up using disease-specific testing is recommended. Low positive titers are not uncommon with advanced age, certain chronic infections, and malignancies among others. Test methodology: Indirect fluorescence immunoassay (IFA) using HEp-2 cells. Performed By: #### 2 9374-6, 66175-4, 39914-8, 80092-5, 83637-7, ANAIFR, 31905-3, 85587-9, 80258-0, 37841-5 ####[facility] LABCLIA [id number] [address] [address] [place] Basic metabolic 2000 panelon 07-07-2022 Anion gap [Moles/Vol] 13 mmol/L Normal 9-18 [facility] Comment on above: Order Comment: Speci men Type: BLOOD SPECIMENOrdering Facility: [facility] Address: [address] [place] [address] Performed By: #### 2 4321-2 ####[facility] LABCLIA [id number] [place] [address] [place] Calcium [Mass/Vol] 9.3 mg/dL Normal 8.5-10.2 [facility] Comment on above: Order Comment: Speci men Type: BLOOD SPECIMENOrdering Facility: [facility] Address: [address] [place] [address] Performed By: #### 2 4321-2 ####[facility] LABCLIA [id number] [place] [address] [place] Chloride [Moles/Vol] 102 mmol/L Normal 97-105 [facility] Comment on above: Order Comment: Speci men Type: BLOOD SPECIMENOrdering Facility: [facility] Address: [address] [place] [address] Performed By: #### 2 4321-2 ####[facility] LABCLIA [id number] [place] [address] [place] CO2 [Moles/Vol] 23 mmol/L Normal 22-30 [facility] Comment on above: Order Comment: Speci men Type: BLOOD SPECIMENOrdering Facility: [facility] Address: [address] [place] [address] Performed By: #### 2 4321-2 ####[facility] LABCLIA [id number] [place] [address] [place] Creatinine [Mass/Vol] 0.72 mg/dL Normal 0.58-0.96 [facility] Comment on above: Order Comment: Speci men Type: BLOOD SPECIMENOrdering Facility: [facility] Address: [address] [place] [address] Performed By: #### 2 4321-2 ####[facility] LABCLIA [id number] [place] [address] [place] ESTIMATED GLOMERULAR FILTRATION RATE 109 mL/min/1.73m??? Normal >=60 [facility] Comment on above: Order Comment: Bryan hernández Type: BLOOD SPECIMENOrdering Facility: [facility] Address: [address] [phone] Result Comment: Dina mated Glomerular Filtration Rate [...] actual GFR. Performed By: #### 2 4321-2 ####[facility] LABCLIA [id number] [place] [address] [place] Glucose [Mass/Vol] 98 mg/dL Normal 74-99 [facility] Comment on above: Order Comment: Bryan hernández Type: BLOOD SPECIMENOrdering Facility: [facility] Address: [address] [place] [address] Result Comment: The [place] Diabetes Association (ADA) provides guidance for cutoff [...] Standards of Medical Care in Diabetes 2016, [place] [employer]. Diabetes Care. 2016.39(Suppl 1). Performed By: #### 2 4321-2 ####[facility] LABCLIA [id number] [place] [address] [place] Potassium [Moles/Vol] 4.1 mmol/L Normal 3.7-5.1 [facility] Comment on above: Order Comment: Bryan hernández Type: BLOOD SPECIMENOrdering Facility: [facility] Address: [address] [address] Performed By: #### 2 4321-2 ####[facility] LABCLIA [id number] [place] [address] [place] Sodium [Moles/Vol] 138 mmol/L Normal 136-144 [facility] Comment on above: Order Comment: Speci men Type: BLOOD SPECIMENOrdering Facility: [facility] Address: [address] [address] Performed By: #### 2 4321-2 ####[facility] LABCLIA [id number] [place] [address] [place] Urea nitrogen [Mass/Vol] 8 mg/dL Normal 7-21 [facility] Comment on above: Order Comment: Speci men Type: BLOOD SPECIMENOrdering Facility: [facility] Address: [address] [address] Performed By: #### 2 4321-2 ####[facility] LABCLIA [id number] [place] [address] [place] Anion gap [Moles/Vol] 13 mmol/L 9 - 18 mmol/L [facility] Calcium [Mass/Vol] 9.3 mg/dL 8.5 - 10. 2 mg/dL [facility] Chloride [Moles/Vol] 102 mmol/L 97 - 10 5 mmol/L [facility] CO2 [Moles/Vol] 23 mmol/L 22 - 30 mmol/L [facility] Creatinine [Mass/Vol] 0.72 mg/dL 0.58 - 0.96 mg/dL [facility] Estimated Glomerular Filtration Rate 109 mL/min/1.73m >=60 mL/min/1.73m [facility] Glucose [Mass/Vol] 98 mg/dL 74 - 99 mg/dL [facility] Potassium [Moles/Vol] 4.1 mmol/L 3.7 - 5.1 mmol/L [facility] Sodium [Moles/Vol] 138 mmol/L 136 - 144 mmol/L [facility] Urea nitrogen [Mass/Vol] 8 mg/dL 7 - 21 mg/dL [facility] CBC W Auto Differential pane l (Bld)on 07-07-2022 Basophils (Bld) [#/Vol] 0.04 10*3/uL Normal <0.11 [facility] Comment on above: Order Comment: Speci men Type: BLOOD SPECIMENOrdering Facility: [facility] Address: [address] [place] [address] Performed By: #### 5 7021-8 ####[facility] LABCLIA [id number] [place] [address] [place] Basophils/100 WBC (Bld) 0.5 % Normal [facility] Comment on above: Order Comment: Speci men Type: BLOOD SPECIMENOrdering Facility: [facility] Address: [address] [place] [address] Performed By: #### 5 7021-8 ####[facility] LABCLIA [id number] [place] [address] [place] Differential cell count method Nom (Bld) Auto Normal [facility] Comment on above: Order Comment: Speci men Type: BLOOD SPECIMENOrdering Facility: [facility] Address: [address] [place] [address] Performed By: #### 5 7021-8 ####[facility] LABCLIA [id number] [place] [address] [place] Eosinophils (Bld) [#/Vol] 0.29 10*3/uL Normal <0.46 [facility] Comment on above: Order Comment: Speci men Type: BLOOD SPECIMENOrdering Facility: [facility] Address: [address] [place] [address] Performed By: #### 5 7021-8 ####[facility] LABCLIA [id number] [place] [address] [place] Eosinophils/100 WBC (Bld) 3.9 % Normal [facility] Comment on above: Order Comment: Speci men Type: BLOOD SPECIMENOrdering Facility: [facility] Address: [address] [address] Performed By: #### 5 7021-8 ####[facility] LABIA [id number] [place] [address] [place] Erythrocyte distribution width (RBC) [Ratio] 12.1 % Normal 11.5-15.0 [facility] Comment on above: Order Comment: Speci men Type: BLOOD SPECIMENOrdering Facility: [facility] Address: [address] [place] [address] Performed By: #### 5 7021-8 ####[facility] LABIA [id number] [place] [address] [place] Hematocrit (Bld) [Volume fraction] 43.5 % Normal 36.0-46.0 [facility] Comment on above: Order Comment: Speci men Type: BLOOD SPECIMENOrdering Facility: [facility] Address: [address] [place] [address] Performed By: #### 5 7021-8 ####[facility] LABIA [id number] [place] [address] [place] Hemoglobin (Bld) [Mass/Vol] 14.9 g/dL Normal 11.5-15.5 [facility] Comment on above: Order Comment: Speci men Type: BLOOD SPECIMENOrdering Facility: [facility] Address: [address] [place] [address] Performed By: #### 5 7021-8 ####[facility] LABIA [id number] [place] [address] [place] Immature granulocytes (Bld) [#/Vol] 0.03 10*3/uL Normal <0.10 [facility] Comment on above: Order Comment: Speci men Type: BLOOD SPECIMENOrdering Facility: [facility] Address: [address] [address] Performed By: #### 5 7021-8 ####[facility] LABCLIA [id number] [address] STATES [facility] Immature granulocytes/100 WBC (Bld) 0.4 % Normal [facility] Comment on above: Order Comment: Speci men Type: BLOOD SPECIMENOrdering Facility: [facility] Address: [address] [address] Performed By: #### 5 7021-8 ####[facility] LABCLIA [id number] [place] [address] [place] Lymphocytes (Bld) [#/Vol] 1.71 10*3/uL Normal 1.00-4.00 [facility] Comment on above: Order Comment: Speci men Type: BLOOD SPECIMENOrdering Facility: [facility] Address: [address] [address] Performed By: #### 5 7021-8 ####[facility] LABIA [id number] [place] [address] [place] Lymphocytes/100 WBC (Bld) 23.2 % Normal [facility] Comment on above: Order Comment: Speci men Type: BLOOD SPECIMENOrdering Facility: [facility] Address: [address] [address] Performed By: #### 5 7021-8 ####[facility] LABIA [id number] [place] [address] [place] MCH (RBC) [Entitic mass] 34.1 pg High 26.0-34.0 [facility] Comment on above: Order Comment: Speci men Type: BLOOD SPECIMENOrdering Facility: [facility] Address: [address] [place] [address] Performed By: #### 5 7021-8 ####[facility] LABCLIA [id number] [place] [address] [place] MCHC (RBC) [Mass/Vol] 34.3 g/dL Normal 30.5-36.0 [facility] Comment on above: Order Comment: Speci men Type: BLOOD SPECIMENOrdering Facility: [facility] Address: [address] [place] [address] Performed By: #### 5 7021-8 ####[facility] LABCLIA [id number] [place] [address] [place] MCV (RBC) [Entitic vol] 99.5 fL Normal 80.0-100.0 [facility] Comment on above: Order Comment: Speci men Type: BLOOD SPECIMENOrdering Facility: [facility] Address: [address] [place] [address] Performed By: #### 5 7021-8 ####[facility] LABIA [id number] [place] [address] [place] Monocytes (Bld) [#/Vol] 0.57 10*3/uL Normal <0.87 [facility] Comment on above: Order Comment: Speci men Type: BLOOD SPECIMENOrdering Facility: [facility] Address: [address] [place] [address] Performed By: #### 5 7021-8 ####[facility] LABCLIA [id number] [place] [address] [place] Monocytes/100 WBC (Bld) 7.7 % Normal [facility] Comment on above: Order Comment: Speci men Type: BLOOD SPECIMENOrdering Facility: [facility] Address: [address] [place] [address] Performed By: #### 5 7021-8 ####[facility] LABCLIA [id number] [place] [address] [place] Neutrophils (Bld) [#/Vol] 4.73 10*3/uL Normal 1.45-7.50 [facility] Comment on above: Order Comment: Speci men Type: BLOOD SPECIMENOrdering Facility: [facility] Address: [address] [place] [address] Performed By: #### 5 7021-8 ####[facility] LABCLIA [id number] [place] [address] [place] Neutrophils/100 WBC (Bld) 64.3 % Normal [facility] Comment on above: Order Comment: Speci men Type: BLOOD SPECIMENOrdering Facility: [facility] Address: [address] [place] [address] Performed By: #### 5 7021-8 ####[facility] LABCLIA [id number] [place] [address] [place] Nucleated RBC (Bld) [#/Vol] 10*3/uL Normal <0.01 [facility] Comment on above: Order Comment: Speci men Type: BLOOD SPECIMENOrdering Facility: [facility] Address: [address] [place] [address] Performed By: #### 5 7021-8 ####[facility] LABCLIA [id number] [place] [address] [place] Nucleated RBC/100 WBC (Bld) [Ratio] 0.0 /100 WBC Normal [facility] Comment on above: Order Comment: Speci men Type: BLOOD SPECIMENOrdering Facility: [facility] Address: [address] [place] [address] Performed By: #### 5 7021-8 ####[facility] LABIA [id number] [place] [address] [place] Platelet mean volume (Bld) [Entitic vol] 9.6 fL Normal 9.0-12.7 [facility] Comment on above: Order Comment: Speci men Type: BLOOD SPECIMENOrdering Facility: [facility] Address: [address] [place] [address] Performed By: #### 5 7021-8 ####[facility] LABIA [id number] [place] [address] [place] Platelets (Bld) [#/Vol] 277 10*3/uL Normal 150-400 [facility] Comment on above: Order Comment: Speci men Type: BLOOD SPECIMENOrdering Facility: [facility] Address: [address] [place] [address] Performed By: #### 5 7021-8 ####[facility] LABIA [id number] [place] [address] [place] RBC (Bld) [#/Vol] 4.37 10*6/uL Normal 3.90-5.20 [facility] Comment on above: Order Comment: Speci men Type: BLOOD SPECIMENOrdering Facility: [facility] Address: [address] [place] [address] Performed By: #### 5 7021-8 ####[facility] LABIA [id number] [place] [address] [place] WBC (Bld) [#/Vol] 7.37 10*3/uL Normal 3.70-11.00 [facility] Comment on above: Order Comment: Speci men Type: BLOOD SPECIMENOrdering Facility: [facility] Address: [address] [place] [address] Performed By: #### 5 7021-8 ####[facility] LABIA [id number] [place] [address] [place] Basophils (Bld) [#/Vol] 0.04 10*3/uL <0.11 k/uL [facility] Basophils/100 WBC (Bld) 0.5 % [facility] Differential cell count method Nom (Bld) Auto [facility] Eosinophils (Bld) [#/Vol] 0.29 10*3/uL <0.46 k/uL [facility] Eosinophils/100 WBC (Bld) 3.9 % [facility] Erythrocyte distribution width (RBC) [Ratio] 12.1 % 11.5 - 15.0 % [facility] Hematocrit (Bld) [Volume fraction] 43.5 % 36.0 - 46.0 % [facility] Hemoglobin (Bld) [Mass/Vol] 14.9 g/dL 11.5 - 15.5 g/dL [facility] Immature granulocytes (Bld) [#/Vol] 0.03 10*3/uL <0.10 k/uL [facility] Immature granulocytes/100 WBC (Bld) 0.4 % [facility] Lymphocytes (Bld) [#/Vol] 1.71 10*3/uL 1.00 - 4.00 k/uL [facility] Lymphocytes/100 WBC (Bld) 23.2 % [facility] MCH (RBC) [Entitic mass] 34.1 pg High 26.0 - 34.0 pg [facility] MCHC (RBC) [Mass/Vol] 34.3 g/dL 30.5 - 36.0 g/dL [facility] MCV (RBC) [Entitic vol] 99.5 fL 80.0 - 100.0 fL [facility] Monocytes (Bld) [#/Vol] 0.57 10*3/uL <0.87 k/uL [facility] Monocytes/100 WBC (Bld) 7.7 % [facility] Neutrophils (Bld) [#/Vol] 4.73 10*3/uL 1.45 - 7.50 k/uL [facility] Neutrophils/100 WBC (Bld) 64.3 % [facility] Nucleated RBC (Bld) [#/Vol] <0.01 k/uL [facility] Nucleated RBC/100 WBC (Bld) [Ratio] 0.0 /100 WBC [facility] Platelet mean volume (Bld) [Entitic vol] 9.6 fL 9.0 - 12.7 fL [facility] Platelets (Bld) [#/Vol] 277 10*3/uL 150 - 400 k/uL [facility] RBC (Bld) [#/Vol] 4.37 10*6/uL 3.90 - 5.2 0 m/uL [facility] WBC (Bld) [#/Vol] 7.37 10*3/uL 3.70 - 11. 00 k/uL [facility] CNOVon 07-07-2022 CNOV Office Visit (NEUSHF ) KAILA VASQUEZ ([id number]) 1980 F Date Time Provider Department 07/07/22 8:00 AM GLENROY SYDE During your visit today, we recorded the following information about you: Pulse Blood pressure Weight Height 82/minute 134/88 112 kg 1.626 m Glenroy Syed APRN.FORMULATION CHEMIST 07/07/2022 12:28 PM Signed [facility] General Neurology New Patient Evaluation [...] over a month. She has seen an support group manager and was told she was having occular migraine by her cashier clerk. A couple times a month she gets [...] tobacco: Never (more content not included)... Normal [facility] CNPNon 07-07-2022 CNPN Telephone (NEADFV) KAILA VASQUEZ ([id number]) 1980 F Date Time Provider Department 07/07/22 GLENROY SYEDFV During your visit today, we recorded the following information about you: Cinthya Salgado 07/07/2022 8:52 AM Signed Received medical records from [facility]. Uploaded to chart and forwarded for review. Kajal Gillespie RN 07/07/2022 9:14 AM Signed Noted. Provider notified. Allergies As of Date: 07/07/2022 (Not on File) Date Reviewed: 07/07/2022 Reviewed by: Elaine Bolaños Ma - Fully Assessed Reason for Visit: Received Outside Medical Records [8522] Prescriptions as of 07/19/2022 - metoprolol tartrate, short acting, (LOPRESSOR) 50 mg tablet metoprolol tartrate 50 mg tablet Facility-Administered Medications as of 07/19/2022 - perflutren lipid microspheres 1.3 mL in NaCl (PF) 0.9% 10 mL injection (DEFINITY) - sodium chloride 0.9 % (flush) 10 mL (BD POSIFLUSH) Problem List As Of Date: 07/07/2022 (None) Encounter Status:Closed by CINTHYA SALGADO on 07/19/22 Normal [facility] Centromere Ab IF Ql (S)on Centromere Ab Qn (S) <0.2 Normal <1.0 [facility] Comment on above: Order Comment: Speci men Type: BLOOD SPECIMENOrdering Facility: [facility] Address: [address] [place] [address] Result Comment: Anti -centromere antibody is used as in aid in diagnosis of systemic sclerosis. Clinical correlation is required. Test Methodology: Multiplex flow immunoassay. Performed By: #### 2 9374-6, 53443-7, 61937-2, 08318-4, 18894-9, ANAIFR, 53605-1, 78347-0, 40298-8, 39324-7 ####[facility] LABCLIA [id number] [address] STATES OF [facility] CENTROMERE AB QUAL Negative Normal Negative [facility] Comment on above: Order Comment: Speci men Type: BLOOD SPECIMENOrdering Facility: [facility] Address: [address] [place] [address] Performed By: #### 2 9374-6, 82406-3, 83970-2, 22068-6, 00477-9, ANAIFR, 31485-9, 55084-4, 28859-4, 18087-4 ####[facility] LABCLIA [id number] [place] [address] [place] Chromatin Ab Qnon 07-07-2022 CHROMATIN AB QUAL Negative Normal Negative [facility] Comment on above: Order Comment: Speci men Type: BLOOD SPECIMENOrdering Facility: [facility] Address: [address] [place] [address] Performed By: #### 2 9374-6, 60937-9, 73662-6, 61233-9, 37738-9, ANAIFR, 09084-0, 46588-3, 73140-4, 26951-1 ####[facility] LABCLIA [id number] [place] [address] [place] Chromatin Ab SerPl-aCncon Chromatin Ab Qn <0.2 Normal <1.0 [facility] Comment on above: Order Comment: Speci men Type: BLOOD SPECIMENOrdering Facility: [facility] Address: [address] [place] [address] Result Comment: Test Methodology: Multiplex flow immunoassay. Performed By: #### 2 9374-6, 32948-6, 96774-5, 45551-4, 97507-8, ANAIFR, 07203-8, 03590-4, 44500-6, 89750-2 ####[facility] [id number] [address] [place] KAMRAN Jo1 Ab Ser-aCncon 2021 Radha-1 extractable nuclear Ab Qn (S) <0.2 Normal <1.0 [facility] Comment on above: Order Comment: Speci men Type: BLOOD SPECIMENOrdering Facility: [facility] Address: [address] [place] [address] Performed By: #### 2 9374-6, 11217-6, 27106-9, 95313-5, 52684-2, ANAIFR, 93195-3, 84951-7, 20884-8, 01762-6 ####[facility] [id number] [place] [address] [place] KAMRAN [employer]TING [employer] OPERATOR Ab Ser-aCncon 2021 Ribonucleoprotein extractable nuclear Ab Qn (S) <0.2 Normal <1.0 [facility] Comment on above: Order Comment: Speci men Type: BLOOD SPECIMENOrdering Facility: [facility] Address: [address] [place] [address] Performed By: #### 2 9374-6, 59566-6, 69462-0, 72605-3, 38847-2, ANAIFR, 10467-2, 90594-9, 52297-1, 05940-8 ####[facility] LABIA [id number] [place] [address] [place] KAMRAN SM IgG Ser-aCncon 2021 Osborne extractable nuclear IgG Qn (S) <0.2 Normal <1.0 [facility] Comment on above: Order Comment: Speci men Type: BLOOD SPECIMENOrdering Facility: [facility] Address: [address] [place] [address] Performed By: #### 2 9374-6, 02279-7, 67869-2, 71815-7, 50652-4, ANAIFR, 02645-1, 36561-1, 95867-8, 87112-2 ####[facility] [id number] [place] [address] [place] KAMRAN SS-A Ab Ser-aCncon 07-07 Sjogrens syndrome-A extractable nuclear Ab Qn (S) 0.3 AI Normal <1.0 [facility] Comment on above: Order Comment: Speci men Type: BLOOD SPECIMENOrdering Facility: [facility] Address: [address] [place] [address] Result Comment: Test Methodology: Multiplex flow immunoassay. Performed By: #### 2 9374-6, 93632-4, 92981-9, 53014-4, 90410-3, ANAIFR, 67213-4, 40723-3, 15936-3, 39048-8 ####[facility] [id number] [place] [address] [place] KAMRAN SS-B Ab Ser-aCncon 07-07 Sjogrens syndrome-B extractable nuclear Ab Qn (S) <0.2 Normal <1.0 [facility] Comment on above: Order Comment: Speci men Type: BLOOD SPECIMENOrdering Facility: [facility] Address: [address] [place] [address] Result Comment: Anti -SSB (anti-La) antibody is used as an aid in diagnosis of a variety of systemic autoimmune diseases, especially for Sjogren's syndrome and systemic lupus erythematosus. Clinical correlation is required. Test Methodology: Multiplex flow immunoassay. Performed By: #### 2 9374-6, 01767-7, 43188-7, 32790-8, 42891-7, ANAIFR, 59660-0, 54509-8, 89562-0, 60236-0 ####[facility] LABCLIA [id number] [place] [address] [place] Radha-1 extractable nuclear Ab Qn (S)on 07-07-2022 RADHA 1 ANTIBODY QUAL Negative Normal Negative [facility] Comment on above: Order Comment: Speci men Type: BLOOD SPECIMENOrdering Facility: [facility] Address: [address] [address] Result Comment: Anti -RADHA-1 antibody is used as an aid in diagnosis of polymyositis and dermatomyositis especially with pulmonary involvement. A negative result cannot rule out polymyositis or dermatomyositis. Clinical correlation is required. Test Methodology: Multiplex flow immunoassay. Performed By: #### 2 9374-6, 30507-8, 51820-2, 56212-5, 52773-4, ANAIFR, 60239-1, 55280-0, 83210-2, 81979-4 ####[facility] LABIA [id number] [place] [address] [place] Ribonucleoprotein extractabl e nuclear Ab Qn (S)on 07-07-2022 ANTI-CUTTING AND CREASING PRESS OPERATOR QUAL Negative Normal Negative [facility] Comment on above: Order Comment: Speci men Type: BLOOD SPECIMENOrdering Facility: [facility] Address: [address] [address] Performed By: #### 2 9374-6, 74640-6, 75407-0, 69741-7, 01884-7, ANAIFR, 28097-1, 77632-7, 27329-3, 50814-2 ####[facility] LABCLIA [id number] [place] [address] [place] RIBOSOMAL CUTTING AND CREASING PRESS OPERATOR QUAL Negative Normal Negative [facility] Comment on above: Order Comment: Bryan hernández Type: BLOOD SPECIMENOrdering Facility: [facility] Address: [address] [place] [address] Result Comment: Anti -Ribosomal RNA (Ribosomal P) antibody is used as an aid in diagnosis of systemic autoimmune diseases especially systemic lupus erythematosus and mixed connective tissue disease. Cross-reactivity with Anti-osborne antibody is not uncommon. Clinical correlation is required. Test Methodology: Multiplex flow immunoassay. Performed By: #### 2 9374-6, 48976-3, 10106-5, 56136-9, 11519-2, ANAIFR, 70119-1, 39053-6, 55347-0, 70392-4 ####[facility] LABIA [id number] [place] [address] [place] SCL-70 extractable nuclear I gG IA Qn (S)on 07-07-2022 SCLERODERMA AB QUAL Negative Normal Negative [facility] Comment on above: Order Comment: Bryan hernández Type: BLOOD SPECIMENOrdering Facility: [facility] Address: [address] [place] [address] Performed By: #### 2 9374-6, 84611-3, 18225-9, 64807-4, 37719-4, ANAIFR, 91089-3, 49531-5, 96993-9, 29261-3 ####[facility] LABIA [id number] [address] [place] [id number] [place] SCLERODERMA IGG AB <0.2 Normal <1.0 [facility] Comment on above: Order Comment: Bryan hernández Type: BLOOD SPECIMENOrdering Facility: [facility] Address: [address] [place] [address] Result Comment: Scl- 70/Scleroderma antibody test is used as an aid in diagnosis of systemic sclerosis especially the diffuse cutaneous form. A negative result cannot rule out systemic sclerosis. The final interpretation should consider clinical picture and other test results such as anti-centromere antibody. Test Methodology: Multiplex flow immunoassay. Performed By: #### 2 9374-6, 94531-3, 95055-3, 55485-8, 99663-5, ANAIFR, 59244-0, 72018-2, 39438-6, 66130-3 ####[facility] LABCLIA [id number] [address] [address] [place] Sjogrens syndrome-A extracta ble nuclear Ab Qn (S)on 07-07-2022 SSA ANTIBODY QUAL Negative Normal Negative [facility] Comment on above: Order Comment: Speci men Type: BLOOD SPECIMENOrdering Facility: [facility] Address: [address] [place] [address] Performed By: #### 2 9374-6, 31690-5, 85995-6, 92304-9, 04274-6, ANAIFR, 62451-8, 59521-8, 73961-6, 68671-7 ####[facility] LABIA [id number] [place] [address] [place] Sjogrens syndrome-B extracta ble nuclear Ab Qn (S)on 07-07-2022 SSB ANTIBODY QUAL Negative Normal Negative [facility] Comment on above: Order Comment: Speci men Type: BLOOD SPECIMENOrdering Facility: [facility] Address: [address] [place] [address] Performed By: #### 2 9374-6, 84692-0, 13615-7, 45873-7, 97994-0, ANAIFR, 16464-3, 49757-3, 75441-0, 39033-4 ####[facility] LABIA [id number] [place] [address] [place] Osborne extractable nuclear Ig G Qn (S)on 07-07-2022 SM ANTIBODY QUAL Negative Normal Negative [facility] Comment on above: Order Comment: Speci men Type: BLOOD SPECIMENOrdering Facility: [facility] Address: [address] [address] Result Comment: Anti -Sm (Osborne) antibody is used as an aid in diagnosis of systemic lupus erythematosus and its presence is associated with renal disease. A negative result cannot rule out systemic lupus erythematosus. Clinical correlation is required. Test Methodology: Multiplex flow immunoassay. Performed By: #### 2 9374-6, 12873-7, 23606-2, 68014-6, 49569-6, ANAIFR, 85710-3, 37468-1, 90791-2, 14010-7 ####[facility] LABCLIA [id number] [place] [address] [place] TSH BLDon 07-07-2022 TSH Qn 0.824 m[IU]/L 0.270 - 4.200 mIU/L [facility] TSH SerPl-aCncon 07-07-2022 TSH Qn 0.824 m[IU]/L Normal 0.270-4.200 [facility] Comment on above: Order Comment: Speci men Type: BLOOD SPECIMENOrdering Facility: [facility] Address: [address] [place] [address] Result Comment: If t he patient is , TSH reference range varies by gestational period: First Trimester (weeks 9-12): 0.180-2.990 mIU/L Second Trimester: 0.110-3.980 mIU/L Third Trimester: 0.480-4.710 mIU/L Eliezer Bangura et al. A Practical Approach for the Verifications and Determination of Site- and Trimester-Specific Reference Intervals for Thyroid Function tests in . Thyroid, 2019:29:3:412-420. Rob Forrest, et al. 2017 Guidelines of the [place] [employer] for the Diagnosis and Management of Thyroid Disease during and the . Thyroid, 2017:27:3:315-389. Performed By: #### 3 016-3, 2132-9 ####[facility] LABCLIA [id number] [address] [place] [id number] [place] VITAMIN B12 BLOODon 07-07-20 22 Cobalamin (Vitamin B12) [Mass/Vol] 618 pg/mL 232 - 1,245 pg/mL [facility] Vit B12 SerPl-mCncon 022 Cobalamin (Vitamin B12) [Mass/Vol] 618 pg/mL Normal 232-1245 [facility] Comment on above: Order Comment: Speci men Type: BLOOD SPECIMENOrdering Facility: [facility] Address: [address] [place] [address] Performed By: #### 3 016-3, 2132-9 ####[facility] LABCLIA [id number] [place] [address] [place] dsDNA Ab Ser IA-aCncon 07-07 DNA double strand Ab IA Qn (S) <12 Normal <30 [facility] Comment on above: Order Comment: Speci men Type: BLOOD SPECIMENOrdering Facility: [facility] Address: [address] [place] [address] Result Comment: Nega tive for ds DNA Antibodies. <30 IU/mL Negative 30-74 IU/mL Equivocal >74 IU/mL Positive Performed By: #### 2 9374-6, 32479-0, 44952-4, 43292-2, 83174-2, ANAIFR, 51115-9, 11399-8, 10267-7, 16920-6 ####[facility] LABCLIA [id number] [address] [place] HLA B 27on 04-26-2022 HLA-B27 Negative Normal [facility] Comment on above: Result Comment: HLA- B*27 Negative B27 allele interpretation for all loci based on IMGT/HLA database version 3.44 This test was developed and its performance characteristics determined by [facility]. It has not been cleared or approved by the Food and Drug Administration. [facility] CLIA ID Number [id number] . This test was performed using PCR (Polymerase Chain Reaction)/SSOP (Sequence Specific Oligonucleotide Probes) technique. SBT (Sequence Based Typing) and/or SSP (Sequence Specific Primers) may be used as supplemental methods when necessary. Please contact [facility] Customer Service at if you have any questions. . Director of [facility] Laboratory Dr Abdiaziz Shook, PhD Performed By: #### C VDAGA #### [facility] [address] [place] [address] Dr. Christos Fallon 25-HYDROXY VIT D (D2+D3 [facility] ) LC/MS-MSon 04-23-2022 25-Hydroxy, Vitamin D 26 ng/mL Critically low [facility] Comment on above: Result Comment: Refe rence Range: All Ages: Target levels 30 - 100 Performed By: #### C MP, TSH, HSTROPN #### [facility] [address] [place] [address] Dr. Christos Fallon 25-Hydroxy, Vitamin D-2 <1.0 Normal [facility] Comment on above: Result Comment: This test was developed and its performance characteristics determined by [facility]. It has not been cleared or approved by the Food and Drug Administration. Performed By: #### C MP, TSH, HSTROPN #### [facility] [address] [place] [address] Dr. Christos Fallon 25-Hydroxy, Vitamin D-3 26 ng/mL Normal [facility] Comment on above: Result Comment: This test was developed and its performance characteristics determined by [facility]. It has not been cleared or approved by the Food and Drug Administration. Performed By: #### C MP, TSH, HSTROPN #### [facility] [address] [place] [address] Dr. Christos Fallon REVERSE T3on 04-20-2022 Reverse T3, Serum 11.2 ng/dL Normal 9.2-24.1 [facility] Comment on above: Result Comment: This test was developed and its performance characteristics determined by [facility]. It has not been cleared or approved by the Food and Drug Administration. Performed By: #### C VDAGA #### [facility] [address] [place] [address] Dr. Christos Fallon THYROID ANTIBODIESon 022 Thyroglobulin Antibody <1.0 Normal 0.0-0.9 [facility] Comment on above: Result Comment: Thyr oglobulin Antibody measured by [employer] Methodology Performed By: #### C VDAGA #### [facility] [address] [place] [address] Dr. Christos Fallon Thyroid Peroxidase (TPO) Ab 11 IU/mL Normal 0-34 [facility] Comment on above: Performed By: #### C VDAGA #### [facility] [address] [place] [address] Dr. Christos Fallon ANTISTREPTOLYSIN O AB (ASO)o n 04-16-2022 Antistreptolysin O Ab 21.8 IU/mL Normal 0.0-200.0 [facility] Comment on above: Performed By: #### C MP, TSH, HSTROPN #### [facility] [address] [place] [address] Dr. Christos Fallon T3, TOTAL (TRIIODOTHYRONINE) on 04-16-2022 T3, TOTAL 115 ng/dL Normal 71-180 [facility] Comment on above: Performed By: #### C MP, TSH, HSTROPN #### [facility] [address] [place] [address] Dr. Christos Fallon FREE T3on 04-14-2022 FREE T3 2.46 pg/mlL Normal 2.18-3.98 [facility] Comment on above: Performed By: #### C MP, TSH, HSTROPN #### [facility] [address] [place] [address] Dr. Christos Fallon FREE T4on 04-14-2022 Free T4 [Mass/Vol] 0.88 ng/dL Normal 0.76-1.46 [facility] Comment on above: Performed By: #### C VDAGA #### [facility] [address] [place] [address] Dr. Christos Fallon TSHon 04-14-2022 TSH 1.027 uIU/mL Normal 0.358-3.740 [facility] Comment on above: Performed By: #### C MP, TSH, HSTROPN #### [facility] [address] [place] [address] Dr. Christos Fallon CBC AUTO DIFFon 03-22-2022 BASO # 0.1 103/ul Normal 0.0-0.1 [facility] Comment on above: Performed By: #### C MP, TSH, HSTROPN #### [facility] [address] [place] [address] Dr. Christos Fallon Basophils/100 WBC (Bld) 0.7 % Normal 0.2-2.0 [facility] Comment on above: Performed By: #### C MP, TSH, HSTROPN #### [facility] [address] [place] [address] Dr. Christos Fallon EO # 0.3 103/ul Normal 0.0-0.7 [facility] Comment on above: Performed By: #### C MP, TSH, HSTROPN #### [facility] [address] [place] [address] Dr. Christos Fallon Eosinophils/100 WBC (Bld) 3.4 % Normal 0.9-7.0 [facility] Comment on above: Performed By: #### C MP, TSH, HSTROPN #### [facility] [address] [place] [address] Dr. Christos Fallon Erythrocyte distribution width (RBC) [Ratio] 12.5 % Normal 11.0-15.0 [facility] Comment on above: Performed By: #### C MP, TSH, HSTROPN #### [facility] [address] [place] [address] Dr. Christos Fallon Hematocrit (Bld) [Volume fraction] 41.3 % Normal 36.0-48.0 [facility] Comment on above: Performed By: #### C MP, TSH, HSTROPN #### [facility] [address] [place] [address] Dr. Christos Fallon Hemoglobin (Bld) [Mass/Vol] 14.2 g/dL Normal 12.0-16.0 [facility] Comment on above: Performed By: #### C MP, TSH, HSTROPN #### [facility] [address] [place] [address] Dr. Christos Fallon IG # 0.03 10e3/ul Normal 0.00-0.03 [facility] Comment on above: Performed By: #### C MP, TSH, HSTROPN #### [facility] [address] [place] [address] Dr. Christos Fallon IG % 0.4 % Normal 0.0-0.5 [facility] Comment on above: Performed By: #### C MP, TSH, HSTROPN #### [facility] [address] [place] [address] Dr. Christos Fallon LYMPH # 2.3 103/ul Normal 1.2-3.8 [facility] Comment on above: Performed By: #### C MP, TSH, HSTROPN #### [facility] [address] [place] [address] Dr. Christos Fallon Lymphocytes/100 WBC (Bld) 31.3 % Normal 20.5-60.0 [facility] Comment on above: Performed By: #### C MP, TSH, HSTROPN #### [facility] [address] [place] [address] Dr. Christos Fallon MANUAL DIFF REQ NO Normal [facility] Comment on above: Performed By: #### C MP, TSH, HSTROPN #### [facility] [address] [place] [address] Dr. Christos Fallon MCH (RBC) [Entitic mass] 34.8 pg Critically high 26.7-34.0 [facility] Comment on above: Performed By: #### C MP, TSH, HSTROPN #### [facility] [address] [place] [address] Dr. Christos Fallon MCHC (RBC) [Mass/Vol] 34.4 g/dL Normal 29.9-35.2 [facility] Comment on above: Performed By: #### C MP, TSH, HSTROPN #### [facility] [address] [place] [address] Dr. Christos Fallon MCV (RBC) [Entitic vol] 101.2 fL Critically high 81.0-99.0 [facility] Comment on above: Performed By: #### C MP, TSH, HSTROPN #### [facility] [address] [place] [address] Dr. Christos Fallon MONO # 0.9 103/ul Critically high 0.3-0.8 [facility] Comment on above: Performed By: #### C MP, TSH, HSTROPN #### [facility] [address] [place] [address] Dr. Christos Fallon Monocytes/100 WBC (Bld) 12.0 % Normal 1.7-12.0 [facility] Comment on above: Performed By: #### C MP, TSH, HSTROPN #### [facility] [address] [place] [address] Dr. Christos Fallon NEUT # 3.9 103/ul Normal 1.4-6.5 [facility] Comment on above: Performed By: #### C MP, TSH, HSTROPN #### [facility] [address] [place] [address] Dr. Christos Fallon Neutrophils/100 WBC (Bld) 52.2 % Normal 43.0-75.0 [facility] Comment on above: Performed By: #### C MP, TSH, HSTROPN #### [facility] [address] [place] [address] Dr. Christos Fallon Platelet mean volume (Bld) [Entitic vol] 9.7 fL Normal 9.5-13.5 [facility] Comment on above: Performed By: #### C MP, TSH, HSTROPN #### [facility] [address] [place] [address] Dr. Christos Fallon PLT 296 103/ul Normal 150-450 [facility] Comment on above: Performed By: #### C MP, TSH, HSTROPN #### [facility] [address] [place] [address] Dr. Christos Fallon RBC 4.08 106/ul Critically low 4.20-5.40 [facility] Comment on above: Performed By: #### C MP, TSH, HSTROPN #### [facility] [address] [place] [address] Dr. Christos Fallon WBC 7.4 103/ul Normal 4.0-11.0 [facility] Comment on above: Performed By: #### C MP, TSH, HSTROPN #### [facility] [address] [place] [address] HEAD WO CONon [...] PAL WETZEL Date: 2022-03-22 17:41 Normal [facility] ER URINE PROFILEon 2 Bilirubin Ql (U) Negative Normal NEGATIVE [facility] Comment on above: Performed By: #### C VDAGA #### [facility] [address] [place] [address] Dr. Christos Fallon Clarity (U) CLOUDY Abnormal CLEAR [facility] Comment on above: Performed By: #### C VDAGA #### [facility] [address] [place] [address] Dr. Christos Fallon Color (U) LT. YELLOW Normal YELLOW [facility] Comment on above: Performed By: #### C VDAGA #### [facility] [address] [place] [address] Dr. Christos Fallon ERUAHD A micrscopic examination will be performed if indicated. Normal [facility] Comment on above: Performed By: #### C VDAGA #### [facility] [address] [address] [address] Christos Fallon Glucose Ql (U) Negative Normal NEGATIVE [facility] Comment on above: Performed By: #### C VDAGA #### [facility] [address] [place] [address] Dr. Christos Fallon Hemoglobin Ql (U) Negative Normal NEGATIVE [facility] Comment on above: Performed By: #### C VDAGA #### [facility] [address] [address] [address] Christos Fallon Ketones Ql (U) Negative Normal NEGATIVE [facility] Comment on above: Performed By: #### C VDAGA #### [facility] [address] [place] [address] Dr. Christos Fallon LEUKOCYTES Negative Normal NEGATIVE [facility] Comment on above: Performed By: #### C VDAGA #### [facility] [address] [place] [address] Dr. Christos Fallon Nitrite Ql (U) Negative Normal NEGATIVE [facility] Comment on above: Performed By: #### C VDAGA #### [facility] [address] [place] [address] Dr. Christos Fallon pH (U) 6.0 [pH] Normal 5-9 [facility] Comment on above: Performed By: #### C VDAGA #### [facility] [address] [place] [address] Dr. Christos Fallon SPEC GRAVITY 1.010 Normal 1.005-<=1.02 5 [facility] Comment on above: Performed By: #### C VDAGA #### [facility] [address] [place] [address] Dr. Christos Fallon UA PROTEIN Negative Normal NEGATIVE/ TRACE [facility] Comment on above: Performed By: #### C VDAGA #### [facility] [address] [place] [address] Dr. Christos Fallon UR MICRO IND NOT INDICATED Normal [facility] Comment on above: Performed By: #### C VDAGA #### [facility] [address] [place] [address] Dr. Christos Fallon Urobilinogen Qn (U) 0.2 {Peyman'U}/dL Normal 0.2 - 1. 0 [facility] Comment on above: Performed By: #### C VDAGA #### [facility] [address] [address] [address] Christos Fallon PROF 14(COMP METB)on 022 Albumin [Mass/Vol] 3.6 g/dL Normal 3.4-5.0 [facility] Comment on above: Performed By: #### C MP, HSTROPN, TSH #### [facility] [address] [place] [address] Dr. Christos Fallon Albumin/Globulin [Mass ratio] 0.9 {ratio} Normal [facility] Comment on above: Performed By: #### C MP, HSTROPN, TSH #### [facility] [address] [place] [address] Dr. Christos Fallon ALP [Catalytic activity/Vol] 83 U/L Normal 46-116 [facility] Comment on above: Performed By: #### C MP, HSTROPN, TSH #### [facility] [address] [address] [address] Christos Fallon ALT [Catalytic activity/Vol] 32 U/L Normal 14-59 [facility] Comment on above: Performed By: #### C MP, HSTROPN, TSH #### [facility] [address] [address] [address] Christos Fallon Anion gap [Moles/Vol] 15.4 mmol/L Normal [facility] Comment on above: Performed By: #### C MP, HSTROPN, TSH #### [facility] [address] [address] [address] Christos Fallon AST [Catalytic activity/Vol] 15 U/L Normal 15-37 [facility] Comment on above: Performed By: #### C MP, HSTROPN, TSH #### [facility] [address] [address] [address] Christos Fallon Bilirubin [Mass/Vol] 0.3 mg/dL Normal 0.2-1.0 [facility] Comment on above: Performed By: #### C MP, HSTROPN, TSH #### [facility] [address] [place] [address] Dr. Christos Fallon Calcium [Mass/Vol] 8.9 mg/dL Normal 8.5-10.1 [facility] Comment on above: Performed By: #### C MP, HSTROPN, TSH #### [facility] [address] [place] [address] Dr. Christos Fallon Chloride [Moles/Vol] 102 mmol/L Normal 98-107 [facility] Comment on above: Performed By: #### C MP, HSTROPN, TSH #### [facility] [address] [place] [address] Dr. Christos Fallon CO2 [Moles/Vol] 22.7 mmol/L Normal 21.0-32.0 [facility] Comment on above: Performed By: #### C MP, HSTROPN, TSH #### [facility] [address] [place] [address] Dr. Christos Fallon Creatinine [Mass/Vol] 0.97 mg/dL Normal 0.55-1.02 [facility] Comment on above: Performed By: #### C MP, HSTROPN, TSH #### [facility] [address] [place] [address] Dr. Christos Fallon EGFR-AF [place]IZ[place] >60 Normal >=60 The [facility] Comment on above: Performed By: #### C MP, HSTROPN, TSH #### [facility] [address] [place] [address] Dr. Christos Fallon EGFR-NON AF [place] CITIZ[place] >60 Normal >=60 [facility] Comment on above: Performed By: #### C MP, HSTROPN, TSH #### [facility] [address] [place] [address] Dr. Christos Fallon Globulin (S) [Mass/Vol] 3.8 g/dL Normal [facility] Comment on above: Performed By: #### C MP, HSTROPN, TSH #### [facility] [address] [address] [address] Christos Fallon Glucose [Mass/Vol] 104 mg/dL Normal 74-106 [facility] Comment on above: Performed By: #### C MP, HSTROPN, TSH #### [facility] [address] [address] [address] Christos Fallon Potassium [Moles/Vol] 4.1 mmol/L Normal 3.5-5.1 [facility] Comment on above: Performed By: #### C MP, HSTROPN, TSH #### [facility] [address] [place] [address] Dr. Christos Fallon Protein [Mass/Vol] 7.4 g/dL Normal 6.4-8.2 [facility] Comment on above: Performed By: #### C MP, HSTROPN, TSH #### [facility] [address] [place] [address] Dr. Christos Fallon Sodium [Moles/Vol] 136 mmol/L Normal 136-145 [facility] Comment on above: Performed By: #### C MP, HSTROPN, TSH #### [facility] [address] [address] [address] Christos Fallon Urea nitrogen [Mass/Vol] 17.0 mg/dL Normal 7.0-18.0 [facility] Comment on above: Performed By: #### C MP, HSTROPN, TSH #### [facility] [address] [place] [address] Dr. Christos Fallon Urea nitrogen/Creatinine [Mass ratio] 17.5 mg/mg Normal [facility] Comment on above: Performed By: #### C MP, HSTROPN, TSH #### [facility] [address] [place] [address] Dr. Christos Fallon TROPONIN, HIGH SENSITIVITYon 03-22-2022 HSTROP <4.0 Normal 4.0-51.3 [facility] Comment on above: Result Comment: CUT- OFF POINTS HAVE BEEN ESTABLISHED BASED ON THE FOURTH UNIVERSAL DEFINITIONS OF MYOCARDIAL INFARCTION. THE UPPER REFERENCE LIMIT (URL) OF TROPONIN, DEFINED THE 99TH PERCENTILE OF cTnI DISTRIBUTION IN A REFERENCE POPULATION, HAS BEEN CONFIRMED THE DECISION THRESHOLD FOR NC DIAGNOSIS. Performed By: #### C MARIIA BELLTRANSHUL, TSH #### [facility] [address] [place] [address] Dr. Christos Fallon TSHon 03-22-2022 TSH 0.854 uIU/mL Normal 0.358-3.740 The [facility] Comment on above: Performed By: #### C RAY HSTRANSHUL, TSH #### [facility] [address] [place] [address] Dr. Christos Fallon ASYMPTOMATIC COVID-19 ANTIGE Non 03-03-2022 EUA Statement SEE BELOW Normal [facility] Comment on above: Result Comment: This test [...] sooner. Performed By: #### C VDAGA #### [facility] [address] [place] [address] Dr. Christos Fallon SARS-CoV-2 (COVID-19) RNA LEROY+probe Ql (Unsp spec) Positive Critically abnormal NEGATIVE [facility] Comment on above: Result Comment: SARS -CoV-2 antigen present; does not rule out coinfection with other pathogens. Performed By: #### C VDAGA #### [facility] [address] [place] [address] Dr. Christos Fallon [facility]on 02-06 SARS-CoV-2 (COVID-19) RNA LEROY+probe Ql (Unsp spec) Detected Critically abnormal NOT DETECTED [facility] Comment on above: Result Comment: This test is not yet approved or cleared by the [place] FDA. When there are no FDA-approved or cleared tests available, and other criteria are met, FDA can make tests available under an emergency access mechanism called an Emergency Use Authorization (EUA). The EUA for this test is supported by the [place] of Health and Human Service's declaration that [...] By: #### C MP, TSH, HSTROPN #### [facility] [address] [place] [address] Dr. Christos Fallon CRPon 11-25-2021 CRP [Mass/Vol] mg/L Normal <=1.0 [facility] Comment on above: Performed By: #### C MP, TSH, HSTROPN #### [facility] [address] [place] [address] Dr. Christos Fallon VIT B12 AND FOLATEon 022 Cobalamin (Vitamin B12) [Mass/Vol] 329.0 pg/mL Normal 239.0-931.0 [facility] Comment on above: Performed By: #### C MP, TSH, HSTROPN #### [facility] [address] [place] [address] Dr. Christos Fallon FOLATE 8.50 ng/mL Normal >=2.76 [facility] Comment on above: Performed By: #### C MP, TSH, HSTROPN #### [facility] [address] [place] [address] Dr. Christos Fallon CBC AUTO DIFFon 11-19-2021 BASO # 0.1 103/ul Normal 0.0-0.1 [facility] Comment on above: Performed By: #### C BC #### [facility] [address] [place] [address] Dr. Christos Fallon Basophils/100 WBC (Bld) 0.8 % Normal 0.2-2.0 [facility] Comment on above: Performed By: #### C BC #### [facility] [address] [place] [address] Dr. Christos Fallon EO # 0.3 103/ul Normal 0.0-0.7 [facility] Comment on above: Performed By: #### C BC #### [facility] [address] [place] [address] Dr. Christos Fallon Eosinophils/100 WBC (Bld) 4.8 % Normal 0.9-7.0 [facility] Comment on above: Performed By: #### C BC #### [facility] [address] [place] [address] Dr. Christos Fallon Erythrocyte distribution width (RBC) [Ratio] 12.2 % Normal 11.0-15.0 [facility] Comment on above: Performed By: #### C BC #### [facility] [address] [place] [address] Dr. Christos Fallon Hematocrit (Bld) [Volume fraction] 41.9 % Normal 36.0-48.0 [facility] Comment on above: Performed By: #### C BC #### [facility] [address] [place] [address] Dr. Christos Fallon Hemoglobin (Bld) [Mass/Vol] 14.2 g/dL Normal 12.0-16.0 [facility] Comment on above: Performed By: #### C BC #### [facility] [address] [place] [address] Dr. Christos Fallon IG # 0.03 10e3/ul Normal 0.00-0.03 [facility] Comment on above: Performed By: #### C BC #### [facility] [address] [place] [address] Dr. Christos Fallon IG % 0.5 % Normal 0.0-0.5 [facility] Comment on above: Performed By: #### C BC #### [facility] [address] [place] [address] Dr. Christos Fallon LYMPH # 1.5 103/ul Normal 1.2-3.8 [facility] Comment on above: Performed By: #### C BC #### [facility] [address] [place] [address] Dr. Christos Fallon Lymphocytes/100 WBC (Bld) 24.6 % Normal 20.5-60.0 [facility] Comment on above: Performed By: #### C BC #### [facility] [address] [place] [address] Dr. Christos Fallon MANUAL DIFF REQ NO Normal [facility] Comment on above: Performed By: #### C BC #### [facility] [address] [place] [address] Dr. Christos Fallon MCH (RBC) [Entitic mass] 34.3 pg Critically high 26.7-34.0 [facility] Comment on above: Performed By: #### C BC #### [facility] [address] [place] [address] Dr. Christos Fallon MCHC (RBC) [Mass/Vol] 33.9 g/dL Normal 29.9-35.2 [facility] Comment on above: Performed By: #### C BC #### [facility] [address] [place] [address] Dr. Christos Fallon MCV (RBC) [Entitic vol] 101.2 fL Critically high 81.0-99.0 [facility] Comment on above: Performed By: #### C BC #### [facility] [address] [place] [address] Dr. Christos Fallon MONO # 0.5 103/ul Normal 0.3-0.8 [facility] Comment on above: Performed By: #### C BC #### [facility] [address] [place] [address] Dr. Christos Fallon Monocytes/100 WBC (Bld) 7.2 % Normal 1.7-12.0 [facility] Comment on above: Performed By: #### C BC #### [facility] [address] [place] [address] Dr. Christos Fallon NEUT # 3.9 103/ul Normal 1.4-6.5 [facility] Comment on above: Performed By: #### C BC #### [facility] [address] [address] [address] Christos Fallon Neutrophils/100 WBC (Bld) 62.1 % Normal 43.0-75.0 [facility] Comment on above: Performed By: #### C BC #### [facility] [address] [address] [address] Christos Fallon Platelet mean volume (Bld) [Entitic vol] 9.1 fL Critically low 9.5-13.5 [facility] Comment on above: Performed By: #### C BC #### [facility] [address] [place] [address] Dr. Christos Fallon PLT 301 103/ul Normal 150-450 [facility] Comment on above: Performed By: #### C BC #### [facility] [address] [place] [address] Dr. Christos Fallon RBC 4.14 106/ul Critically low 4.20-5.40 [facility] Comment on above: Performed By: #### C BC #### [facility] [address] [place] [address] Dr. Christos Fallon WBC 6.3 103/ul Normal 4.0-11.0 [facility] Comment on above: Performed By: #### C BC #### [facility] [address] [place] [address] Dr. Christos Fallon FREE T3on 11-19-2021 FREE T3 2.72 pg/mlL Critically low 2.77-5.27 [facility] Comment on above: Performed By: #### C MP, TSH, HSTROPN #### [facility] [address] [address] [address] Christos Fallon FREE T4on 11-19-2021 Free T4 [Mass/Vol] 1.09 ng/dL Normal 0.78-2.19 [facility] Comment on above: Performed By: #### C MP, TSH, HSTROPN #### [facility] [address] [place] [address] Dr. Christos Fallon GLYCOHEMOGLOBIN A1Con 2021 ADA RECOMMENDATION ADA THERAPEUTIC TARG ET 6.0 - 7.0 ACTION SUGGESTED > 7.0 Normal [facility] Comment on above: Performed By: #### A 1C #### [facility] [address] [address] [address] Christos Fallon Glucose [Mass/Vol] 105 mg/dL Normal [facility] Comment on above: Performed By: #### A 1C #### [facility] [address] [address] [address] Christos Fallon HbA1c (Bld) [Mass fraction] 5.3 % Normal <=6.0 [facility] Comment on above: Performed By: #### A 1C #### [facility] [address] [place] [address] Dr. Christos Fallon LIPID PROFILEon 11-19-2021 CHOL-HDL RATIO NORM SEE BELOW Normal [facility] Comment on above: Result Comment: 3.3 - 4.4 LOW RISK 4.4 - 7.1 AVERAGE RISK 7.1 - 11.0 MODERATE RISK >11.0 HIGH RISK Performed By: #### C MP, TSH, HSTROPN #### [facility] [address] [place] [address] Dr. Christos Fallon Cholesterol [Mass/Vol] 232 mg/dL Critically high <=200 [facility] Comment on above: Performed By: #### C MP, TSH, HSTROPN #### [facility] [address] [place] [address] Dr. Christos Fallon Cholesterol in HDL [Mass/Vol] 60 mg/dL Normal 40-60 [facility] Comment on above: Performed By: #### C MP, TSH, HSTROPN #### [facility] [address] [place] [address] Dr. Christos Fallon Cholesterol in LDL [Mass/Vol] 134.6 mg/dL Normal [facility] Comment on above: Performed By: #### C MP, TSH, HSTROPN #### [facility] [address] [place] [address] Dr. Christos Fallon Cholesterol.total/Cho lesterol in HDL [Mass ratio] 3.9 {ratio} Normal [facility] Comment on above: Performed By: #### C MP, TSH, HSTROPN #### [facility] [address] [address] [address] Christos Fallon HDL NORMAL > or = 60 mg/dl - LO W CARDIOVASCULAR RISK <40 mg/dl - HIGH CARDIOVASCULAR RISK Normal [facility] Comment on above: Performed By: #### C MP, TSH, HSTROPN #### [facility] [address] [address] [address] Christos Fallon LDL CALC NORMAL SEE BELOW Normal [facility] Comment on above: Result Comment: <100 mg/dl OPTIMAL 100 - 129 mg/dl NEAR OR ABOVE OPTIMAL 130 - 159 mg/dl BORDERLINE HIGH 160 - 189 mg/dl HIGH >190 mg/dl VERY HIGH Performed By: #### C MP, TSH, HSTROPN #### [facility] [address] [address] [address] Christos Fallon Triglyceride [Mass/Vol] 187 mg/dL Critically high <=150 [facility] Comment on above: Performed By: #### C MP, TSH, HSTROPN #### [facility] [address] [address] [address] Christos Flalon VLDL CALC 37.4 mg/dL Normal [facility] Comment on above: Performed By: #### C MP, TSH, HSTROPN #### [facility] [address] [address] [address] Christos Fallon PROF 14(COMP METB)on 022 Albumin [Mass/Vol] 3.8 g/dL Normal 3.4-5.0 [facility] Comment on above: Performed By: #### C MP, TSH, HSTROPN #### [facility] [address] [place] [address] Dr. Christos Fallon Albumin/Globulin [Mass ratio] 1.1 {ratio} Normal [facility] Comment on above: Performed By: #### C MP, TSH, HSTROPN #### [facility] [address] [address] [address] Christos Fallon ALP [Catalytic activity/Vol] 77 U/L Normal 46-116 [facility] Comment on above: Performed By: #### C MP, TSH, HSTROPN #### [facility] [address] [place] [address] Dr. Christos Fallon ALT [Catalytic activity/Vol] 34 U/L Normal 14-59 [facility] Comment on above: Performed By: #### C MP, TSH, HSTROPN #### [facility] [address] [place] [address] Dr. Christos Fallon Anion gap [Moles/Vol] 11.5 mmol/L Normal [facility] Comment on above: Performed By: #### C MP, TSH, HSTROPN #### [facility] [address] [place] [address] Dr. Christos Fallon AST [Catalytic activity/Vol] 21 U/L Normal 15-37 [facility] Comment on above: Performed By: #### C MP, TSH, HSTROPN #### [facility] [address] [place] [address] Dr. Christos Fallon Bilirubin [Mass/Vol] 0.7 mg/dL Normal 0.2-1.3 [facility] Comment on above: Performed By: #### C MP, TSH, HSTROPN #### [facility] [address] [place] [address] Dr. Christos Fallon Calcium [Mass/Vol] 8.8 mg/dL Normal 8.5-10.1 [facility] Comment on above: Performed By: #### C MP, TSH, HSTROPN #### [facility] [address] [place] [address] Dr. Christos Fallon Chloride [Moles/Vol] 104 mmol/L Normal 98-107 [facility] Comment on above: Performed By: #### C MP, TSH, HSTROPN #### [facility] [address] [place] [address] Dr. Christos Fallon CO2 [Moles/Vol] 28.6 mmol/L Normal 22.0-30.0 [facility] Comment on above: Performed By: #### C MP, TSH, HSTROPN #### [facility] [address] [place] [address] Dr. Christos Fallon Creatinine [Mass/Vol] 0.88 mg/dL Normal 0.52-1.04 [facility] Comment on above: Performed By: #### C MP, TSH, HSTROPN #### [facility] [address] [place] [address] Dr. Christos Fallon EGFR-AF [place] >60 Normal >=60 [facility] Comment on above: Performed By: #### C MP, TSH, HSTROPN #### [facility] [address] [place] [address] Dr. Christos Fallon EGFR-NON AF [place] >60 Normal >=60 [facility] Comment on above: Performed By: #### C MP, TSH, HSTROPN #### [facility] [address] [place] [address] Dr. Christos Fallon Globulin (S) [Mass/Vol] 3.5 g/dL Normal [facility] Comment on above: Performed By: #### C MP, TSH, HSTROPN #### [facility] [address] [place] [address] Dr. Christos Fallon Glucose [Mass/Vol] 101 mg/dL Normal 74-106 [facility] Comment on above: Performed By: #### C MP, TSH, HSTROPN #### [facility] [address] [place] [address] Dr. Christos Fallon Potassium [Moles/Vol] 4.1 mmol/L Normal 3.4-5.0 [facility] Comment on above: Performed By: #### C MP, TSH, HSTROPN #### [facility] [address] [place] [address] Dr. Christos Fallon Protein [Mass/Vol] 7.3 g/dL Normal 6.1-8.2 [facility] Comment on above: Performed By: #### C MP, TSH, HSTROPN #### [facility] [address] [address] [address] Christos Fallon Sodium [Moles/Vol] 140 mmol/L Normal 137-145 [facility] Comment on above: Performed By: #### C MP, TSH, HSTROPN #### [facility] [address] [address] [address] Christos Fallon Urea nitrogen [Mass/Vol] 11.0 mg/dL Normal 7.0-18.0 [facility] Comment on above: Performed By: #### C MP, TSH, HSTROPN #### [facility] [address] [address] [address] Christos Fallon Urea nitrogen/Creatinine [Mass ratio] 12.5 mg/mg Normal [facility] Comment on above: Performed By: #### C MP, TSH, HSTROPN #### [facility] [address] [place] [address] Dr. Christos Fallon TSHon 11-19-2021 TSH 0.774 uIU/mL Normal 0.470-4.680 [facility] Comment on above: Performed By: #### C MP, TSH, HSTROPN #### [facility] [address] [address] [address] Christos Fallon TSH RANGE SEE BELOW Normal [facility] Comment on above: Result Comment: <0.3 4 UIU/ml HYPERTHYROID 0.34-5.60 UIU/ml EUTHYROID >5.60 UIU/ml HYPOTHYROID Performed By: #### C MP, TSH, HSTROPN #### [facility] [address] [place] [address] Dr. Christos Fallon XR TSPINE 2 VIEWSon [...] TAMIE GUILLERMO Date: 2021-11-19 12:49 Normal [facility] Cardiovascular Lab Reporton 11-17-2021 Cardiovascular Lab Report [facility] Patient Name: Christina [facility] MR #: [id number] Physician: Jonny Fowler M.D. Department of Service Date: 11/17/2021 Medicine Birthdate: 1980 Division of Room #: CC Cardiology Adult [facility] Services [address] [address] Cardiovascular Laboratory Report PROCEDURE: Implantable loop recorder [...] subcutaneous pocket, into which was deployed a [employer] BioMonitor 3 implantable loop recorder. Via off [...] Fowler M.D. Date Trans: 11/17/2021 12:41 P/mmo [id number] cc: Mert Lama M.D. 1 The [facility] [id number] Normal The [facility] Covid-19 PCR ([facility])on SARS-CoV-2 (COVID-19) RNA LEROY+probe Ql (Unsp spec) Not detected Normal NOT DETECTED [facility] Comment on above: Result Comment: This test is not yet approved or cleared by the [place] FDA. When there are no FDA-approved or cleared tests available, and other criteria are met, FDA can make tests available under an emergency access mechanism called an Emergency Use Authorization (EUA). The EUA for this test is supported by the [place] of Health and Human Service's (HHS's) declaration [...] By: #### C MP, TSH, HSTROPN #### [facility] [address] [place] [address] Dr. Christos Fallon Covid-19 PCR ([facility])on SARS-CoV-2 (COVID-19) RNA LEROY+probe Ql (Unsp spec) Not detected Normal NOT DETECTED [facility] Comment on above: Result [...] for this test is supported by the [place] of Health and Human Service's declaration that [...] longer be used). Performed By: #### C [facility] #### [facility] [address] [place] [address] Dr. Christos Fallon Cardiovascular Lab Reporton 06-17-2021 Cardiovascular Lab Report [facility] Patient Name: Christina [facility] MR #: [id number] Physician: Vishal Rogers MD Department of Service Date: 06/17/2021 Medicine Birthdate: 1980 Division of Room #: CC Cardiology Adult Cardi[facility] Services [address] [place] [address] Cardiovascular Laboratory Report COMPREHENSIVE EP STUDY AND [...] content not included)... Normal The [facility] FEMUR LEFT 2 VWSon 1 FEMUR LEFT 2 VWS [facility] Department of Radiology [address] [place] [id number] ======== Patient Name: KAILA VASQUEZ : [...] report. Electronically signed: Gelacio Pfeiffer. Transcribed by: [email or web address], User Resident: TAVON BELCHER Electronically Signed by: GELACIO PFEIFFER @ 01/15/2021 12:03 PM I personally read this/these film(s) with this resident Normal The [facility] Comment on above: Order Comment: evalu ate Operative Reporton Operative Report MR#: [id number] S [facility] Pt. Name: Kaila Vasquez Room #: 0C Discharge 12/05/2020 Date: Birthdate: 1980 OPERATIVE REPORT DATE OF SURGERY: 12/05/2020 SURGEON: Pamella Brennan M.D. PREOPERATIVE DIAGNOSIS: Left distal femur osteochondroma. POSTOPERATIVE DIAGNOSIS: Left distal femur osteochondroma. PROCEDURE PERFORMED: Left distal femur osteochondroma excision. FLOORING SALES MANAGER: Alaina Edouard M.D. ANESTHESIA: General [...] content not included)... Normal The [facility] FEMUR LEFT 2 [facility] 1 FEMUR LEFT 2 [facility] Department of Radiology [address] [place] [phone] ======== Patient Name: KAILA VASQUEZ : [...] purposes. Electronically signed: Ching Garcia. Transcribed by: [email or web address], User Resident: Electronically Signed by: CHING GARCIA @ 12/05/2020 11:54 AM Normal [facility] Comment on above: Order Comment: LEFT DISTAL FEMUR OSTEOCHONDROMA EXCISION POC GLUCOSE LABon 12-05-2020 Glucose [Mass/Vol] 108 mg/dL High 70-100 [facility] Comment on above: Performed By: #### [id number] ####[facility] [place] [address], [facility] *MRSA/MSSA DNA NASALon 11-28 *MRSA/MSSA DNA NASAL Clinical Report: (D ) Specimen: NASAL SWAB Collected: 11/28/2020 13:22 Status: Final Last Updated: 2020 13:05 MSSA DNA (Final) Negative MRSA DNA (Final) Negative Normal [facility] Comment on above: Performed By: #### 3 0165 ####[facility] [place] [address], [facility] APTTon 11-28-2020 aPTT Coag (Bld) [Time] 29.1 s Normal 25.0-35.0 [facility] Comment on above: Result Comment: ALL RESULTS [...] THIS PURPOSE. Performed By: #### 5 [id number], [id number] #### [facility] [address] [facility] [place] [address], [facility] BASIC METABOLIC PANELon 11-07 Calcium [Mass/Vol] 9.5 mg/dL Normal 8.6-10.3 [facility] Comment on above: Performed By: #### 0 0071 #### [facility] [address] [facility] [place] [address], [facility] Chloride [Moles/Vol] 104 mmol/L Normal 98-107 [facility] Comment on above: Performed By: #### 0 0071 #### [facility] [address] [facility] [place] [address], [facility] CO2 [Moles/Vol] 28 mmol/L Normal 21-31 [facility] Comment on above: Performed By: #### 0 0071 #### [facility] [address] [facility] [place] [address], [facility] Creatinine [Mass/Vol] 0.90 mg/dL Normal 0.60-1.20 [facility] Comment on above: Performed By: #### 0 0071 #### [facility] [address] [place] [address], [facility] GFR/1.73 sq M.predicted among blacks MDRD (S/P/Bld) [Vol rate/Area] mL/min/{1.73_m2} Normal >60 [facility] Comment on above: Performed By: #### 0 0071 #### [facility] [address] [place] [address], [facility] GFR/1.73 sq M.predicted among non-blacks MDRD (S/P/Bld) [Vol rate/Area] mL/min/{1.73_m2} Normal >60 [facility] Comment on above: Performed By: #### 0 0071 #### [facility] [address] [place] [address], [facility] Glucose [Mass/Vol] 132 mg/dL High 70-100 [facility] Comment on above: Performed By: #### 0 0071 #### [facility] [address] [place] [address], [facility] Potassium [Moles/Vol] 3.8 mmol/L Normal 3.5-5.1 [facility] Comment on above: Performed By: #### 0 0071 #### [facility] [address] [place] [address], [facility] Sodium [Moles/Vol] 138 mmol/L Normal 136-145 [facility] Comment on above: Performed By: #### 0 0071 #### [facility] [address] [place] [address], [facility] Urea nitrogen [Mass/Vol] 9 mg/dL Normal 7-25 [facility] Comment on above: Performed By: #### 0 0071 #### [facility] [address] [place] [address], [facility] CBC W/DIFFon 11-28-2020 ABS IMM GRANS 0.0 10*3/uL Normal 0.0-0.2 [facility] Comment on above: Performed By: #### 5 0103 ####[facility] [place] [address], [facility] ABS NEUTROPHILS 7.2 10*3/uL Normal 1.6-7.6 [facility] Comment on above: Performed By: #### 5 0103 ####[facility] [facility] [place] [address], [facility] Basophils (Bld) [#/Vol] 0.1 10*3/uL Normal 0.0-0.2 [facility] Comment on above: Performed By: #### 5 0103 ####[facility] [place] [address], [facility] Basophils/100 WBC (Bld) 0.6 % Normal 0.0-1.0 [facility] Comment on above: Performed By: #### 5 0103 ####[facility] [facility] [place] [address], [facility] Eosinophils (Bld) [#/Vol] 0.3 10*3/uL Normal 0.0-0.5 [facility] Comment on above: Performed By: #### 5 0103 ####[facility] [facility] [place] [address], [facility] Eosinophils/100 WBC (Bld) 2.6 % Normal 0.0-6.0 [facility] Comment on above: Performed By: #### 5 0103 ####[facility] [facility].[address] Erythrocyte distribution width (RBC) [Ratio] 12.6 % Normal 11.5-15.0 [facility] Comment on above: Performed By: #### 5 0103 ####[facility] [facility] [place] [place] [address], [facility] Hematocrit (Bld) [Volume fraction] 42.6 % Normal 36.0-45.0 [facility] Comment on above: Performed By: #### 5 3 ####[facility] [facility] [place] [address] Hemoglobin (Bld) [Mass/Vol] 14.4 g/dL Normal 12.0-15.0 [facility] Comment on above: Performed By: #### 5 0103 ####[facility] IMMATURE GRANS 0.3 % Normal 0.0-1.0 [facility] Comment on above: Performed By: #### 5 0103 ####[facility] Lymphocytes (Bld) [#/Vol] 2.1 10*3/uL Normal 1.2-4.0 [facility] Comment on above: Performed By: #### 5 3 ####[address] Lymphocytes/100 WBC (Bld) 20.2 % Normal 20.0-45.0 [facility] Comment on above: Performed By: #### 5 3 ####[facility] MCH (RBC) [Entitic mass] 33.6 pg High 27.0-33.0 [facility] Comment on above: Performed By: #### 5 3 ####[facility] MCHC (RBC) [Mass/Vol] 33.8 g/dL Normal 32.0-35.0 [facility] Comment on above: Performed By: #### 5 3 ####[facility] MCV (RBC) [Entitic vol] 99.5 fL High 82.0-98.0 [facility] Comment on above: Performed By: #### 5 3 ####[address] Monocytes (Bld) [#/Vol] 0.7 10*3/uL Normal 0.1-1.0 [facility] Comment on above: Performed By: #### 5 3 ####[facility] [facility] [place] [place] [address], [facility] MONOS 6.4 % Normal 5.0-12.0 [facility] Comment on above: Performed By: #### 5 3 ####[facility] [facility] [place] [place] [address], [facility] Neutrophils/100 WBC (Bld) 69.9 % Normal 40.0-72.0 [facility] Comment on above: Performed By: #### 5 102 ####[facility] [facility] [place] [place] [address], [facility] Nucleated RBC/100 WBC (Bld) [Ratio] 0 % Normal 0-0 [facility] Comment on above: Performed By: #### 5 102 ####[facility] [facility] [place] [place] [address], [facility] PLAT CNT 346 10*3/uL Normal 150-400 [facility] Comment on above: Performed By: #### 5 102 ####[facility] [facility] [place] [place] [address], [facility] RBC (Bld) [#/Vol] 4.28 10*6/uL Normal 3.80-5.00 [facility] Comment on above: Performed By: #### 5 102 ####[facility] [facility] [place] [place] [address], [facility] WBC (Bld) [#/Vol] 10.24 10*3/uL Normal 4.00-10.60 [facility] Comment on above: Performed By: #### 5 102 ####[facility] [facility].[address] PROTHROMBIN TIMEon 1 INR Coag (PPP) [Relative time] 0.99 {INR} Normal 0.91-1.16 [facility] Comment on above: Result Comment: ACCC [...] CHEST 1995;108:[id number]. Performed By: #### 5 [id number], [id number] #### [facility] [address] [place] [address], [facility] PT Coag (PPP) [Time] 13.1 s Normal 12.3-14.8 [facility] Comment on above: Result Comment: ALL RESULTS MUST BE INTERPRETED WITH RESPECT TO BLOOD DRAWING ARTIFACT OR DILUTION ERROR OF ANTICOAGULANT AT THE TIME OF SAMPLING. Performed By: #### 5 [id number], [id number] #### [facility] [address] [place] [address], [facility] TYPE AND CROSSMATCHon 2020 ABO INTERPRETATION O Normal [facility] Comment on above: Performed By: #### 6 2594 #### [facility] [address] [place] [address], [place] RH INTERPRETATION Positive Normal [facility] Comment on above: Performed By: #### 6 2594 #### [facility] [address] [place] [address], [facility] URINALYSISon 11-28-2020 Appearance (U) CLEAR Normal CLEAR [facility] Comment on above: Performed By: #### 1 0008 #### [facility] [address] [place] [address], [facility] Bilirubin Ql (U) Negative Normal NEGATIVE [facility] Comment on above: Performed By: #### 1 0008 #### [facility] [address] [place] [address], [facility] Color (U) YELLOW Normal YELLOW [facility] Comment on above: Performed By: #### 1 0008 #### [facility] [address] [facility] [place] [address], [facility] Glucose Ql (U) Negative Normal NEGATIVE [facility] Comment on above: Performed By: #### 1 0008 #### [facility] [address] [facility] [place] [address], [facility] Hemoglobin Ql (U) Negative Normal NEGATIVE [facility] Comment on above: Performed By: #### 1 0008 #### [facility] [address] [facility] [place] [address], [facility] KETONE Negative Normal NEGATIVE [facility] Comment on above: Performed By: #### 1 0008 #### [facility] [address] [facility] [place] [address], [facility] LEUK JORDAN Negative Normal NEGATIVE [facility] Comment on above: Performed By: #### 1 0008 #### [facility] [address] [facility] [place] [address], [facility] MICRO NOT DONE Normal [facility] Comment on above: Result Comment: Micr oscopics not performed on urines with negative chemical reactions unless requested in original order Performed By: #### 1 0008 #### [facility] [address] [place] [address], [place] Nitrite Ql (U) Negative Normal NEGATIVE [facility] Comment on above: Performed By: #### 1 0008 #### [facility] [address] [place] [address], [facility] pH (U) 6.0 [pH] Normal 5.0-8.0 [facility] Comment on above: Performed By: #### 1 0008 #### [facility] [address] [place] [address], [facility] Protein Ql (U) Negative Normal NEGATIVE [facility] Comment on above: Performed By: #### 1 0008 #### [facility] [address] [place] [address], [facility] SPEC GRAV 1.018 Normal 1.015-1.020 [facility] Comment on above: Performed By: #### 1 0008 #### [facility] [address] [facility]. [place], [place] [id number] [place] [address] Vital Signs Date Time Vital Sign Value Performing Clinician Faci lity 08-24-2022 13:44-0500 Body height 162.6 cm Janell Sy MD Work Phone: [facility] 08-24-2022 13:44-0500 Body weight 112.95 kg Janell Sy MD Work Phone: [facility] 08-24-2022 13:44-0500 Diastolic blood pressure 73 mm[Hg] Janell Sy MD Work Phone: [facility] 08-24-2022 13:44-0500 Heart rate 88 /min Janell Sy MD Work Phone: [facility] 08-24-2022 13:44-0500 SaO2% (BldA) [Mass fraction] 98 % Janell Sy MD Work Phone: [facility] 08-24-2022 13:44-0500 Systolic blood pressure 112 mm[Hg] Janell Sy MD Work Phone: [facility] 08-05-2022 10:00-0500 Diastolic blood pressure 88 mm[Hg] Carmen Seese PT Work Phone: [facility] 08-05-2022 10:00-0500 Heart rate 78 /min Carmen Seese PT Work Phone: [facility] 08-05-2022 10:00-0500 Systolic blood pressure 134 mm[Hg] Carmen Seese PT Work Phone: [facility] 07-07-2022 08:12-0500 Body height 162.6 cm Glenroy Syed PATIENT RELATIONS DIRECTOR.FORMULATION CHEMIST Work Phone: [facility] 07-07-2022 08:12-0500 Body weight 112.04 kg Glenroy Syed PATIENT RELATIONS DIRECTOR.FORMULATION CHEMIST Work Phone: [facility] 07-07-2022 08:12-0500 Diastolic blood pressure 88 mm[Hg] Glenroy Syed PATIENT RELATIONS DIRECTOR.FORMULATION CHEMIST Work Phone: [facility] 07-07-2022 08:12-0500 Heart rate 82 /min Glenroy Syed PATIENT RELATIONS DIRECTOR.FORMULATION CHEMIST Work Phone: [facility] 07-07-2022 08:12-0500 SaO2% (BldA) [Mass fraction] 98 % Glenroy Syed PATIENT RELATIONS DIRECTOR.FORMULATION CHEMIST Work Phone: [facility] 07-07-2022 08:12-0500 Systolic blood pressure 134 mm[Hg] Glenroy Syed PATIENT RELATIONS DIRECTOR.FORMULATION CHEMIST Work Phone: [facility] 12-09-2021 13:59-0400 Blood Pressure Location Pamella DANIELE [facility] 12-09-2021 13:59-0400 Diastolic blood pressure 78 mm[Hg] Pamella SANABRIA [facility] 12-09-2021 13:59-0400 Heart rate 68 /min Pamella SANABRIA [facility] 12-09-2021 13:59-0400 Respiratory rate 16 /min Pamella SANABRIA [facility] 12-09-2021 13:59-0400 Systolic blood pressure 118 mm[Hg] Pamella SANABRIA [facility] [place] Encounters Encounter Date Encounter Type Care Provider Facility Start: 07-16-2024 ambulatory [facility] Start: 06-29-2024 ambulatory [facility] Start: 06-15-2024 ambulatory [facility] Start: 06-04-2024 End: 06-04-2024 ambulatory Ari Sellers MD Facility:[facility] Start: 05-31-2024 ambulatory [facility] Start: 05-09-2024 ambulatory [facility] Start: 04-27-2024 ambulatory [facility] Start: 03-06-2024 ambulatory [facility] Start: 01-31-2024 ambulatory [facility] Start: 01-24-2024 ambulatory [facility] Start: 12-19-2023 End: 12-20-2023 ambulatory Cristiane Gutiérrez Facility:[facility] Start: 12-02-2023 ambulatory [facility] Start: 10-25-2023 End: 10-25-2023 ambulatory IRMA SUDHA Not Available Start: 08-25-2023 End: 08-25-2023 ambulatory IRMA SUDHA Not Available Start: 10-15-2022 Orders Only Glenroy Syed PATIENT RELATIONS DIRECTOR.FORMULATION CHEMIST Work Phone: Neurology Comment on above: 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 (Primary Dx) Start: 10-14-2022 End: 10-14-2022 ambulatory GLENROY SYED Facility:[facility] Start: 09-09-2022 ambulatory Mauri Lisa RT(R) Ra soto Comment on above: Radiology MRI Start: 09-09-2022 Patient encounter procedure Mauri Lisa RT(R) RONALDO KIMBERLYCARMELITA Start: 09-02-2022 End: 09-02-2022 ambulatory ELENA GUAN Facility: Start: 08-24-2022 End: 08-24-2022 [facility] Start: 08-24-2022 End: 08-24-2022 Patient encounter procedure Janell Sy MD Work Phone: Cardiology Comment on above: KNAG (obstructive sle ep apnea) (Primary Dx); Dizziness; Palpitations; Obesity, morbid, BMI 40.0-49.9 (HCC); SVT (supraventricular tachycardia) (HCC); Chronic fatigue; Vitamin D deficiency Start: 08-20-2022 Orders Only Len OBRIEN.FORMULATION CHEMIST Work Phone: Neurology Comment on above: Ocular migraine (Dinora andres Dx) Start: 08-19-2022 End: 08-19-2022 ambulatory [facility] Neurology Comment on above: Neuro Ophthalmologis t Start: 08-16-2022 ambulatory [facility] Neurology Comment on above: MRI Start: 08-12-2022 End: 08-12-2022 ambulatory GLENROY SYED Facility:[facility] Start: 08-12-2022 End: 08-12-2022 ambulatory Carmen Seese PT Work Phone: Physical Therapy Comment on above: Dizziness (Primary D x); Cervicalgia; Headaches Start: 08-05-2022 End: 08-05-2022 ambulatory GLENROY SYED Facility:[facility] Start: 08-05-2022 End: 08-05-2022 ambulatory Carmen Seese PT Work Phone: Physical Therapy Comment on above: Dizziness (Primary D x); Cervicalgia; Headaches Start: 07-29-2022 End: 07-29-2022 ambulatory WM RODRIGUEZ Facility: Start: 07-21-[address] MERT LAMA Facilit y:[facility] Start: 07-07-2022 Telephone encounter Glenroy Debbie lton PATIENT RELATIONS DIRECTOR.FORMULATION CHEMIST Work Phone: Neurology Comment on above: Received Outside Med ical Records Start: 07-07-2022 End: 07-07-2022 ambulatory GLENROY SYED Facility:[facility] Start: 07-07-2022 End: 07-07-2022 Patient encounter procedure Glenroy Syed PATIENT RELATIONS DIRECTOR.FORMULATION CHEMIST Work Phone: Neurology Comment on above: Dizziness [...] examination without abnormal findings DR MERT LAMA [facility] Start: 11-19-2021 End: 11-20-[address] MERT LAMA Facility:[facility] Start: 11-19-2021 End: 11-20-2021 Encounter for general adult medical examination without abnormal findings DR MERT LAMA Facility:[facility] Start: 11-17-2021 End: 11-18-2021 ambulatory MERT LAMA Facility:[facility] Start: 11-14-2021 End: 11-15-2021 ambulatory ANU CABAN Facility:[facility] Start: 10-08-2021 End: 10-08-2021 ambulatory WM RODRIGUEZ Facility:[facility] Start: 06-17-2021 End: 06-18-2021 ambulatory MERT LAMA Facility:[facility] Start: 04-16-2021 End: 05-23-2021 ambulatory MERT LAMA Facility:[facility] Start: 12-05-2020 End: 12-06-2020 ambulatory MERT LAMA Facility:[facility] Procedures Date Procedure Procedure Detail Performing Clinician Start: 08-24-2022 Ecg routine ecg w/le ast 12 lds i&r only [facility] Provider Start: 12-05-2020 ANESTH KNEE AREA SURGERY MERT LAMA Start: 12-05-2020 REMOVE FEMUR LESION CARLOS KENDRICK BRENNAN Start: 11-28-2020 Antibody screen MERT ORTIZ Comment on above: Performed By: #### 6 [id number] #### [address] Start: 11-04-2020 Cystourethroscopy wi th dilation of urethral stricture Pamella SANABRIA Abdominal hysterectomy Wale rodriguez DANIELE Bilateral complete salpingectomy Pamella SANABRIA Cardiac radiofrequen cy ablation using ultrasound guidance Pamella SANABRIA Cholecystectomy Pamella SANABRIA Excision of osteochondroma M nicolle DANIELE History of ankle surgery Carlos SANABRIA Plan of Treatment Date Care Activity Detail Author Start: 08-08-2022 DEPRESSION ASSESSMENT DEPRESSION ASS ESSMENT [facility] Start: 07-07-2022 End: 09-06-2022 25-hydroxyvitamin D3 [Mass/volume] in Serum or Plasma [facility] Work Phone: Comment on above: Expected: 07/07/2022 , Expires: 09/06/2022 Start: 07-07-2022 End: 09-06-2022 ESEQUIEL BY IFA WITH REFLEX [facility] Work Phone: Comment on above: Expected: 07/07/2022 , Expires: 09/06/2022 Start: 04-08-2022 Influenza vaccination INFLUENZA (#1) [facility] Start: 08-08-2021 DEPRESSION ASSESSMENT DEPRESSION ASS ESSMENT [facility] Start: 11-05-2020 COVID-19 VACCINE (3 - Booster for Giancarlo series) COVID-19 VACCINE (3 - Booster for Giancarlo series) [facility] Start: 2012 HPV TESTING HPV TESTING [facility] Start: 11-30-2003 PAP TESTING PAP TESTING [facility] Start: 2001 Urine microalbumin profile DTA P,TDAP,TD (1 - Tdap) [facility] Start: 2000 HEPATITIS C SCREENING HEPATITIS C SC REENING [facility] Start: 2000 HIV SCREENING HIV SCREENING [facility] Start: 1982 HEPATITIS B (1 of 3 - 3-dose series) HEPATITIS B (1 of 3 - 3-dose series) [facility] End: 08-24-2023 ECG COMPLETE ECG COMPLETE ECG Routine Dizziness Palpitations Obesity, morbid, BMI 40.0-49.9 (HCC) 1 Occurrences starting 08/24/2022 until 08/24/2023 [facility] Work Phone: Comment on above: 1 Occurrences starti ng 08/24/2022 until 08/24/2023 ECG COMPLETE ECG COMPLETE ECG 08/24/2022 1:56 PM EST [facility] End: 07-07-2023 Echocardiography ECHO Cardiology Routine Palpitations 1 Occurrences starting 07/07/2022 until 07/07/2023 [facility] Work Phone: Comment on above: 1 Occurrences starti ng 07/07/2022 until 07/07/2023 End: 08-06-2023 Mri brain brain stem w/o w/contrast material MRI BRAIN WO/W IVCON Radiology Routine Dizziness Vision changes 1 Occurrences starting 07/07/2022 until 08/06/2023 [facility] Work Phone: Comment on above: 1 Occurrences starti ng 07/07/2022 until 08/06/2023 End: 09-15-2023 Mri spinal canal cervical w/o & w/contr matrl MRI CERVICAL SPINE WO/W IVCON Radiology Routine Dizziness Vision changes Cervicalgia Disturbance of skin sensation 1 Occurrences starting 08/16/2022 until 09/15/2023 [facility] Work Phone: Comment on above: 1 Occurrences starti ng 08/16/2022 until 09/15/2023 [facility] Immunizations Immunization Date Immunization Notes Care Provider Fa subhash 09-10-2020 SARS-CoV-2 (COVID-19 ) Ad26 vaccine, recombinant Pamella NILL [facility] [place] 08-12-2020 SARS-CoV-2 (COVID-19 ) Ad26 vaccine, recombinant Pamella NILL [facility] [place] Payers Date Payer Category Payer Unknown [id number] 2021 Unknown [id number] 1982 Unknown [id number] 2.16.8 40.1.936321.3.579.2.647 1982 Unknown [id number] 2.16.8 40.1.074365.3.579.2.647 1982 Unknown [id number] 2.16.8 40.1.779561.3.579.2.647 1982 Unknown [id number] 2.16.8 40.1.207749.3.579.2.647 1982 Unknown [id number] 2.16.84 0.1.421277.3.579.2.593 1982 Unknown [id number] 2.16.84 0.1.108514.3.579.2.593 1982 Unknown [id number] 2.16.84 0.1.446462.3.579.2.593 1982 Unknown [id number] 2.16.84 0.1.454146.3.579.2.593 1982 Unknown [id number] 2.16.84 0.1.487988.3.579.2.593 1982 Unknown [id number] 2.16.84 0.1.452244.3.579.2.593 1982 Unknown [id number] 2.16.84 0.1.006866.3.579.2.593 1982 Unknown [id number] 2.16.84 0.1.927715.3.579.2.593 1982 Unknown [id number] 2.16.84 0.1.746122.3.579.2.593 1982 Unknown [id number] 2.16.84 0.1.347906.3.579.2.593 1982 Unknown [id number] 2.16.84 0.1.796903.3.579.2.593 1982 Unknown [id number] .16.84 0.1.319121.3.579.2.593 1982 Unknown [id number] 2.16.84 0.1.446160.3.579.2.593 1982 Unknown [id number] 2.16.84 0.1.061749.3.579.2.593 1982 Unknown [id number] 2.16.84 0.1.393501.3.579.2.593 1982 Unknown [id number] 2.16.84 0.1.422799.3.579.2.1259 1982 Unknown [id number] 2.16.84 0.1.939252.3.579.2.1259 1982 Unknown [id number] 2.16.8 40.1.419335.3.579.2.727 1982 Unknown [id number] 2.16. 840.1.075094.3.579.2.196 1959 Unknown [id number] Social History Date Type Detail Facility Start: 12-09-2021 End: 07-07-2022 Tobacco smoking status Never smoked tobacco (finding) General [facility] Tobacco smoking status Never General Surgery [facility] Sex Assigned At Female Genera l Surgery [facility] Start: 07-07-2022 Tobacco use and exposure Smokeless tobacco non-user [facility] Start: 1980 Sex Assigned At Not on file C [facility] Start: 06-27-2022 End: 07-07-2022 Exposure to SARS-CoV-2 (event) Not sure [facility] Start: 08-24-2022 Alcohol intake Current drinke r of alcohol (finding) [facility] Start: 08-24-2022 Alcohol Comment occasionally 1 -2 times a months 2-3 drinks [facility] Clinical Notes 12-30-2021 to 10-14-2022 Mauri Ross RT(R) - 09/09/2022 2:11 PM Marilyn Sy MD - 08/24/2022 1:45 PM ESTTelephone Encounter - Glenroy Syed APRN.SARIKA - 08/16/2022 8:28 AM Elio Johnson PT - 08/12/2022 2:51 PM EST Note Date & Type Note Facility 10-14-2022 Note HNO ID: [id number] Author: RT Mary(R) Service: ? Author Type: [...] RT Mary(R) October 14, 2022 4:55 PM [facility] 10-14-2022 Note HNO ID: [id number] Author: Papa Rea RN Service: Radiology Author [...] DATE: October 14, 2022 TIME: 3:20 PM [facility] 09-09-2022 Note HNO ID: [id number] Author: RT Odessa(R) Service: ? Author Type: [...] 09, 2022 TIME: 2:11 PM PAGER/CONTACT #: [facility] 09-09-2022 History of Present illness Narrative [...] PM PAGER/CONTACT #: documented in this encounter [facility] 08-24-2022 Note HNO ID: [id number] Author: Janell Sy MD Service: ? Author Type: Physician Type: Progress Notes Filed: 08/24/2022 2:17 PM Note Text: [facility] [place] SECTION OF REGIONAL CARDIOLOGY OUTPATIENT VISIT DATE August 24, 2022 OUTPATIENT VISIT TYPE NEW PRIMARY CARE PHYSICIAN: To use this Smartlink, specify the provider ID whose address you want to display, e.g., .June BlackboxADDR[1 (where 1 is the provider ID). A [...] Cardiac work-up includes: Echocardiogram on 05/19/2020 at [facility] showed normal ejection fraction. No valvular [...] ECG COMPLETE 4. Obesity, morbid, BMI 40.0-49.9 ([facility]) E66.01 ECG COMPLETE 5. SVT (supraventricular tachycardia) ([facility]) I47.1 6. Chronic fatigue R53.82 [...] Never Vaping U (more content not included)... [facility] 08-24-2022 History of Present illness Narrative Images from the original note were not included. [facility] [place] SECTION OF REGIONAL CARDIOLOGY OUTPATIENT VISIT DATE August 24, 2022 OUTPATIENT VISIT TYPE NEW PRIMARY CARE PHYSICIAN: To use this Smartlink, specify the provider ID whose address you want to display, e.g., .June BlackboxADDR[1 (where 1 is the provider ID). A [...] Cardiac work-up includes: Echocardiogram on 05/19/2020 at [facility] showed normal ejection fraction. No valvular [...] ECG COMPLETE 4. Obesity, morbid, BMI 40.0-49.9 ([facility]) E66.01 ECG COMPLETE 5. SVT (supraventricular tachycardia) ([facility]) I47.1 6. Chronic fatigue R53.82 [...] twice daily.^Disp: ^Rfl: documented in this encounter [facility] 08-19-2022 Note HNO ID: [id number] Author: Mauri Chun OD Service: ? Author Type: GRAPHICS COORDINATOR Type: Progress Notes Filed: 08/19/2022 10:22 AM Note Text: Ocular health is unremarkable with no abnormalities. Normal ON appearance Ophthalmic migraines Glasses Rx given with slight prism [facility] 08-16-2022 Miscellaneous Notes signed We can add it to fully evaluate her symptoms. -JOLANTA documented in this encounter [facility] 08-12-2022 Note HNO ID: [id number] Author: Carmen Johnson, PT Service: ? Author [...] Time Minutes (timed/untimed): 60 Carmen Johnson, PT [facility] 08-12-2022 History of Present illness Narrative [...] Carmen Johnson PT documented in this encounter [facility] 08-05-2022 Note HNO ID: [id number] Author: Carmen Johnson PT Service: ? Author [...] Planned: 8 Planned Treatment Interventions: Therapeutic exercise (98912);Neuromuscular re-education (42682);Manual therapy (51487);Therapeutic activities (93118);Self-longterm management (91945);Patient/Family/Caregiver Education;Gait Training (01845);Canalith Repositioning Maneuvers (30437) PLAN FOR NEXT VISIT: Detailed neck exam [...] Premature atrial contra (more content not included)... [facility] 08-05-2022 History of Present illness Narrative [...] Planned: 8 Planned Treatment Interventions: Therapeutic exercise (58080);Neuromuscular re-education (42410);Manual therapy (26739);Therapeutic activities (36848);Self-longterm management (01967);Patient/Family/Caregiver Education;Gait Training (22858);Canalith Repositioning Maneuvers (53640) PLAN FOR NEXT VISIT: Detailed neck exam [...] present Head Shake: Negative Positional Testing Right Thompson-Hallpike: No nystagmus;Asymptomatic Left Juan-Hallpike: No nystagmus;Asymptomatic Right [...] Demonstration;Requires Review/Additional Education TREATMENT: PT Treatment Interventions: Self-Longterm Management;Therapeutic Exercise Evaluation Therapeutic Exercise: 1: c/s retractions x 10, cues for technique Skilled Intervention: Patient was educated in proper exercise technique and purpose for exercises. Patient education as noted. Self-Longterm Management: 1: Educated regarding potential multifactorial cause [...] Carmen Johnson PT documented in this encounter [facility] 07-07-2022 Note HNO ID: [id number] Author: Glenroy Syed APRN.SARIKA Service: ? Author Type: Nurse Practitioner Type: Progress Notes Filed: 07/07/2022 12:28 PM Note Text: [facility] General Neurology New Patient Evaluation [...] over a month. She has seen an support group manager and was told she was having occular migraine by her cashier clerk. A couple times a month she gets [...] for 1 dose.N (more content not included)... [facility] 07-07-2022 Miscellaneous Notes Noted. Provider notified. Received medical records from [facility]. Uploaded to chart and forwarded for review. documented in this encounter [facility] 07-07-2022 Instructions Glenroy Syed APRN.SARIKA - 07/07/2022 9:06 AM EST Plan: Baseline labs MRI Brain for multiple symptoms ECHO for palpitations and arrhythmias Aspirin 81mg daily in the setting of known arrhythmias Consult to [place] for dizziness Consult to Cardiology for second opinion Consult to ophthalmology Follow up after testing documented in this encounter [facility] 07-07-2022 History of Present illness Narrative Images from the original note were not included. [facility] General Neurology New Patient Evaluation [...] over a month. She has seen an support group manager and was told she was having occular migraine by her cashier clerk. A couple times a month she gets [...] Finger Abduction (U) 5 Finger Abduction 5 Energy Professional 5 Energy Professional 5 Right Lower Extremity: (of 5) Left [...] over a month. She has seen an support group manager and was told she was having occular migraine by her cashier clerk. A couple times a month she gets [...] VT reccommended. Patient wanting second opinion from cashier clerk within the [facility], referral placed. Unlikely autonomic dysfunction with unremarkable tilt and orthostatic vitals in office unconvincing (did not take BB today). Additionally, with visual changes, recommended seeing neuro damascener. Will obtain additional labs as well. Follow [...] which included preparing to see the patient, [id number] patient care, completing clinical documentation, obtaining and/or reviewing separately obtained history, performing a medically appropriate examination, counseling and educating the patient/family/caregiver, ordering medications, tests, or procedures, and care coordination (not separately reported). Glenroy Syed APRN.[facility] General Neurology [address] [place] [address] Appointment: [phone] In regards to blood work, testing, and radiology reports these are released automatically to the patients. We do not comment on most testing on [employer] in a message or commentary unless there [...] your PCP/referring physician documented in this encounter [facility] 03-16-2022 Note EXAM: CHEST 2 [...] by: BETTY MORALES Date: 2022-03-16 18:13 [facility] 12-30-2021 Note [facility] [place], [place] NAME: KAILA VASQUEZ DATE OF : MEDICAL REC#: [id number] SHINGLE CATCHER: [address] [facility], TRANS[facility]MIT DATE: 12/30/2021 09:02:00 MANAGER LOCAL DATE: 12/30/2021 21:00 DICTATING PHYSICIAN: PAMELLA SANABRIA [...] DR PAMELLA SANABRIA . 01/06/2022 08:31:00 [facility] Evaluation + Plan note No data available for this section General Surgery [place] Evaluation note Diagnosis Dizziness- Primary Dizziness and giddiness Migraine aura without headache Migraine with aura, without mention of intractable migraine without mention of status migrainosus Palpitations Chronic fatigue Other malaise and fatigue Vision changes Unspecified visual disturbance Disturbance of skin sensation documented in this encounter [facility] note* Diagnosis Dizziness- Primary Dizziness and giddiness Cervicalgia Headaches documented in this encounter [facility] note* Diagnosis Dizziness- Primary Dizziness and giddiness Cervicalgia Headaches documented in this encounter [facility] note* Diagnosis Cervicalgia- Primary Dizziness Dizziness and giddiness Vision changes Unspecified visual disturbance Disturbance of skin sensation documented in this encounter [facility] note* Diagnosis Ocular migraine- Primary Other forms of migraine, without mention of intractable migraine without mention of status migrainosus documented in this encounter [facility] note* Diagnosis KANG (obstructive sleep apnea)- Primary Obstructive sleep apnea (adult) (pediatric) Dizziness Dizziness and giddiness Palpitations Obesity, morbid, BMI 40.0-49.9 (HCC) Morbid obesity SVT (supraventricular tachycardia) ([facility]) Other specified cardiac dysrhythmias Chronic fatigue Other malaise and fatigue Vitamin D deficiency Unspecified vitamin D deficiency documented in this encounter [facility] note* Diagnosis Degeneration of intervertebral disc of cervical region with osteophyte of cervical vertebra- Primary documented in this encounter [facility] [place] Discharge instructions No data available for this section General Surgery Cam Reason for referral (narrative)* Outpatient Procedure (Routine) - Authorized Specialty Diagnoses / Procedures Referred By Contac t Referred To Contact [facility] Diagnoses Dizziness Palpitations Obesity, morbid, BMI 40.0-49.9 (HCC) Procedures ECG COMPLETE ECG ROUTINE ECG W/LEAST 12 LDS W/I&R Janell Sy MD [address] [place] [address] [facility] [place] [address] [place] [id number] Referral ID Status Reason Start Date Expiration Date Visits Requested Visits Authorized [id number] Authorized Auto-Generat ed Referral 08/24/2022 08/24/2023 1 1 [facility] [place] Summary Purpose Family History No Family History [...] By Contac t Referred To Contact [facility] [place] Diagnoses Degeneration of intervertebral disc of cervical region with osteophyte of cervical vertebra Procedures CONSULT TO [facility] OFFICE/OUTPATIENT [facility] 60-74 MINUTES Glenroy Syed, PATIENT RELATIONS DIRECTOR.FORMULATION CHEMIST [address] [place] [address] Referral ID Status Reason Start Date Expiration Date Visits Requested Visits Authorized [id number] Authorized PCP Requested Referral 10/15/2022 10/15/2023 1 1 Specialty Diagnoses / Procedures Referred By Contac t Referred To Contact Ophthalmology Diagnoses Ocular migraine Procedures CONSULT TO OPHTHALMOLOGY OFFICE/OUTPATIENT [facility] 60-74 MINUTES Len Shea PATIENT RELATIONS DIRECTOR.FORMULATION CHEMIST [address] [place] [facility] [id number] [place] [phone] Josefina Grimes MD [address] [facility] [address] Referral ID Status Reason Start Date Expiration Date Visits Requested Visits Authorized [id number] Authorized PCP Requested Referral 08/20/2022 08/20/2023 1 1 Specialty Diagnoses / Procedures Referred By Contac t Referred To Contact Cardiology Diagnoses Dizziness Palpitations Procedures CONSULT TO CARDIOLOGY OFFICE/OUTPATIENT [facility] 60-74 MINUTES Glenroy Syed, PATIENT RELATIONS DIRECTOR.FORMULATION CHEMIST [address] [place] [address] Referral ID Status Reason Start Date Expiration Date Visits Requested Visits Authorized [id number] Authorized PCP Requested Referral 2 07/07/2023 1 1 Specialty Diagnoses / Procedures Referred By Contac t Referred To Contact MR IMAGING Diagnoses Dizziness Vision changes Procedures MRI BRAIN WO/W IVCON MRI BRAIN BRAIN STEM W/O W/CONTRAST MATERIAL Glenroy Syed, PATIENT RELATIONS DIRECTOR.FORMULATION CHEMIST [address] [place] [phone] [facility] Referral ID Status Reason Start Date Expiration Date Visits Requested Visits Authorized [id number] Authorized Auto-Generat ed Referral 2 08/21/2022 1 1 Specialty Diagnoses / Procedures Referred By Contac t Referred To Contact Ophthalmology Diagnoses Vision changes Procedures CONSULT TO OPHTHALMOLOGY OFFICE/OUTPATIENT NEW HIGH MDM 60-74 MINUTES Glenroy Syed, PATIENT RELATIONS DIRECTOR.FORMULATION CHEMIST [address] [place] [phone] Josefina Grimes MD [address] [place] [phone] Referral ID Status Reason Start Date Expiration Date Visits Requested Visits Authorized [id number] Authorized PCP Requested Referral 2 07/07/2023 1 1 Specialty Diagnoses / Procedures Referred By Contac t Referred To Contact [facility] Diagnoses Palpitations Procedures ECHO ECHO TTHRC R-T 2D W/WOM-MODE COMPL SPEC&COLR D Glenroy Syed, PATIENT RELATIONS DIRECTOR.FORMULATION CHEMIST [address] [place] [phone] [facility] [place] [address] [place] [address] Referral ID Status Reason Start Date Expiration Date Visits Requested Visits Authorized [id number] Authorized Auto-Generat ed Referral 2 07/07/2023 1 1 Additional Source Comments INFORMATION SOURCE (unrecogn ized section and content) DATE CREATED AUTHOR 11/24/2021 [facility] DATE CREATED AUTHOR AUTHOR'S ORGANIZ ATION 07/20/2022 [facility] DATE CREATED AUTHOR AUTHOR'S ORGANIZ ATION 09/06/2022 [facility] DATE CREATED AUTHOR AUTHOR'S ORGANIZ ATION 10/16/2022 [facility] DATE CREATED AUTHOR AUTHOR'S ORGANIZ ATION 10/26/2023 [facility] EPIC DATE CREATED AUTHOR AUTHOR'S ORGANIZ ATION 01/04/2024 [facility] DATE CREATED AUTHOR AUTHOR'S ORGANIZ ATION 06/09/2024 [facility] DATE CREATED AUTHOR AUTHOR'S ORGANIZ ATION 07/19/2024 [facility] Source Comments (unrecognize d section and content) In the event this informatio n is protected by the Federal Confidentiality of Alcohol and Drug Abuse Patient Records regulations: The Federal rules restrict any use of the information to criminally investigate or prosecute any alcohol or drug abuse patient.[facility] the event this information is protected by the Federal Confidentiality of Alcohol and Drug Abuse Patient Records regulations: The Federal rules restrict any use of the information to criminally investigate or prosecute any alcohol or drug abuse patient.[facility] the event this information is protected by the Federal Confidentiality of Alcohol and Drug Abuse Patient Records regulations: The Federal rules restrict any use of the information to criminally investigate or prosecute any alcohol or drug abuse patient.[facility] the event this information is protected by the Federal Confidentiality of Alcohol and Drug Abuse Patient Records regulations: The Federal rules restrict any use of the information to criminally investigate or prosecute any alcohol or drug abuse patient.[facility] the event this information is protected by the Federal Confidentiality of Alcohol and Drug Abuse Patient Records regulations: The Federal rules restrict any use of the information to criminally investigate or prosecute any alcohol or drug abuse patient.[facility] the event this information is protected by the Federal Confidentiality of Alcohol and Drug Abuse Patient Records regulations: The Federal rules restrict any use of the information to criminally investigate or prosecute any alcohol or drug abuse patient.[facility] the event this information is protected by the Federal Confidentiality of Alcohol and Drug Abuse Patient Records regulations: The Federal rules restrict any use of the information to criminally investigate or prosecute any alcohol or drug abuse patient.[facility] the event this information is protected by the Federal Confidentiality of Alcohol and Drug Abuse Patient Records regulations: The Federal rules restrict any use of the information to criminally investigate or prosecute any alcohol or drug abuse patient.[facility] the event this information is protected by the Federal Confidentiality of Alcohol and Drug Abuse Patient Records regulations: The Federal rules restrict any use of the information to criminally investigate or prosecute any alcohol or drug abuse patient.[facility] Hospital[facility] the event this information is protected by the Federal Confidentiality of Alcohol and Drug Abuse Patient Records regulations: The Federal rules restrict any use of the information to criminally investigate or prosecute any alcohol or drug abuse patient.[facility] Reason for Visit (unrecogniz ed [...] NEW RS PT VESTIBULAR DIZZY Glenroy Syed APRN.FORMULATION CHEMIST [address] [place] [address] Carmen Johnson, PT [address] [place] [address] Referral ID Status Reason Start Date Expiration Date Visits Re quested Visits Authorized [id number] Closed 08/08/2021 08/07/2022 30 30 Reason Comments Physical Therapy Specialty Diagnoses / Procedures Referred By Contac t Referred To Contact PHYSICAL THERAPY Diagnoses Dizziness Procedures Physical Therapy Glenroy Syed APRN.FORMULATION CHEMIST [address] [place] [address] [facility] [address] [place] [address] Referral ID Status Reason Start Date Expiration Date V isits Requested Visits Authorized [id number] Pending Review 08/12/2022 11/10/2022 1 1 Reason Comments Establish Care Palpitations Dizziness Specialty Diagnoses / Procedures Referred By Contac t Referred To Contact Cardiology Diagnoses Dizziness Palpitations Procedures CONSULT TO CARDIOLOGY OFFICE/OUTPATIENT [facility] 60-74 MINUTES Glenroy Syed, PATIENT RELATIONS DIRECTOR.FORMULATION CHEMIST [address] [place] [address] Referral ID Status Reason Start Date Expiration Date V isits Requested Visits Authorized [id number] Closed PCP Requested Referral 07/07/2022 07/07/2023 1 1 Reason Comments Radiology MRI Care Teams (unrecognized sec tion and content) Java Systems Analyst Relationship Specialty Start Date End Date Mert Lama MD [address] [place] [address] Referring Family Medicine 06/10/22 Java Systems Analyst Relationship Specialty Start Date End Date Mert Lama MD [address] [place] [address] Referring Family Medicine 06/10/22 Java Systems Analyst Relationship Specialty Start Date End Date Mert Lama MD [address] [place] [phone] Referring Family Medicine 06/10/22 [employer] Systems Analyst Relationship Specialty Start Date End Date Mert Lama MD [address] [place] [phone] Referring Family Medicine 06/10/22 Java Systems Analyst Relationship Specialty Start Date End Date Mert Lama MD [address] [place] [phone] Referring Family Medicine 06/10/22 Java Systems Analyst Relationship Specialty Start Date End Date Mert Lama MD [address] [facility] [place] [address] Referring [facility] 06/10/22 Java Systems Analyst Relationship Specialty Start Date End Date Mert Lama MD [address] [facility] [place] [address] Referring [facility] 06/10/22 Java Systems Analyst Relationship Specialty Start Date End Date Mert Lama MD [address] [place] [address] Referring [facility] 06/10/22 FOR RECORDS PERTAINING TO [...] BE BASED ON THE PRIMARY CLINICAL RECORDS. [facility] [employer] [facility]. provides no warranty or guarantee of the accuracy or completeness of information in this document.
== END 2024-09-12 15:41 | disposition home or self-care (01) ==
LOC: LAB 15:40
PROVIDERS: PCP Family Medicine; Visit Provider Nurse Practitioner
DX: Z00.00 Encounter for general adult medical examination without abnormal findings (principal)
CPT/HCPCS: 36415; 80053; 80061; 82306; 83036; 84443; 85025

== ENCOUNTER 2024-09-13 07:48 | Outpatient (OUT) | payer BC, SELFPAY ==
--- OUTSIDE RECORDS SUMMARY | 2024-09-13 07:51 | XMS_ITS | CCD ---
Author Organization [facility] Care Team Providers Care Protection Manager Name Role Phone MERT LAMA Referring Unavailable PAMELLA BRENNAN Attending Unavailable MIKAPAMELLA Joyner Surgeon Unavailable PAMELLA BRENNAN Admitting Unavailable PA Procedure Practitioner Unavailab MERT Caban Primary Care [...] Attending Unavailable MERT LAMA Primary Care Physician [phone] Mert Lama MD Unavailable DANIEL, DR MERT [...] Primary Care Unavailable JENNIFER, WM Admitting Unavailable MEELISAANU Attending Unavailable MEE, ANU Admitting Unavailable LAMA, DR MERT Forrest Primary Care Unavailable MEE, ANU Consulting Unavailable JENNIFER, WM Admitting Unavailable JENNIFER, WM Consulting Unavailable LAMA, DR MERT Forrest Primary Care Unavailable JENNIFER, WM Attending Unavailable LAMA, DR MERT Forrest Primary Care Unavailable HEMEYER, DR NEGRETE Attending Unavailable HEMEYER, DR NGERETE Admitting Unavailable HEMEYER, DR NEGRETE Consulting Unavailable POULTON, GLENROY Referring Unavailable POULTON, GLENROY Referring Unavailable POULTON, GLENROY Referring Unavailable POULTON, GLENROY Attending Unavailable POULTON, GLENROY Referring Unavailable POULTON, GLENROY Referring Unavailable POULTON, GLENROY Referring Unavailable SYJANELL Bangura Attending Unavailable MAURI CHUN Attending Unavailable POULTON, GLENROY Referring Unavailable IRMA CORTES Attending Unavailable IRMA CORTES Attending Unavailable Marlo PIZARRO, Ari Fuller Attending Unavailable MANUEL, JONNY Referring Unavailable MANUEL, JONNY Referring Unavailable MANUEL, JONNY Referring Unavailable SUE VISHAL Referring Unavailable MANUEL, JONNY Referring Unavailable SUE, VISHAL Referring Unavailable SUE, VISHAL Referring Unavailable MANUEL, JONNY Referring Unavailable SUE, VISHAL Referring Unavailable MANUEL, JONNY Referring Unavailable SUEVISHAL Referring Unavailable MANUEL, JONNY Referring Unavailable MANUEL, JONNY Referring Unavailable MANUEL, JONNY Referring Unavailable MANUEL, OJNNY Referring Unavailable Brock, JAVA SYSTEMS ANALYST Cristiane L Attending Unavailable Brock, JAVA SYSTEMS ANALYST Cristiane L Attending Unavailable Medications Current Medications Medication Drug [...] tablet (9 sources) beta-Adrenergic Norbert Start: 11-27-19 take 2 tablets by mouth twice daily [...] Comment on above: Take 1 capsule by [facility] once daily. 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 Pt had cholecystectomy at age 23 [facility] told she had a lot of scare tissue and never surgery before. When she had hysterectomy she had told Dr Cortes she was told she had a lot of sccar tissue and he also said that she was full of scar tissue. 2 weeks ago was having intermittent tunnel vision and muscle spasm to bilateral latter-day and sharp pain to right latter-day. Tongue/whole mouth felt like it had an electrical shock. History of Present Illness pt c/o abdominal pain and neuro changes Review of Systems PHQ Score Initial Depression Screen Score: 0 SCORE Physical Exam Vitals & Measurements HR: 98(Peripheral) RR: 18 BP: 142/92 SpO2: 99% HT: 65 in HT: 165.1 cm WT: 119.80 kg WT: 264.113 lb BMI: 43.95 General: alert, no acute distress ENMT: oral mucosa moist, no pharyngeal erythema or exudate Cardiovascular: regular rate and rhythm, normal peripheral perfusion Respiratory: Lungs CTA, respirations non labored Extremities: no deformity, no trauma Neurological: oriented x 4, LOC appropriate for age, CN II-XII intact, motor strength equal & normal bilaterally, speech normal Assessment/Plan 1. Tunnel vision (H53.489: Generalized contraction of visual field, unspecified eye) pt presents today. c/o kaleidoscope vision that comes and goes. . pt would like to see neurology. but does not want to go to [facility]. referral to [facility] sent Ordered: [facility] External Ambulatory Referral 2. Facial tingling (R20.2: Paresthesia of skin) pt had episode when she had facial tingling, and in her mouth. she states it felt like she put a battery to her tongue. Ordered: [facility] External Ambulatory Referral 3. Pressure in head (R51.9: Headache, unspecified) c/o constant pressure of her head. Ordered: [facility] External Ambulatory Referral 4. 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 so much that it made her glasses move up and down. referral to neurology sent Ordered: [facility] External Ambulatory Referral 5. Right upper quadrant pain (R10.11: Right upper quadrant pain) pt c/o upper abdominal pain on both sides and epigastric pain. CT of abdomen/pelvic ordered. may consider referral to GI 6. Left upper quadrant pain (R10.12: Left upper quadrant pain) see above 7. Epigastric pain (R10.13: Epigastric pain) see above 8. BMI 40.0-44.9, adult (Z68.41: Body mass index [BMI] 40.0-44.9, adult) BMI education given Ordered: meloxicam, 15 mg = 1 tab(s), Oral, Daily, # 30 tab(s), Refills(s) 0, Pharmacy: [facility]/pharmacy #[id number], 165.1, cm, 12/19/23 13:17:00 EDT, Height/Length Dosing, 114.6, kg, 12/19/23 13:17:00 EDT, Weight Dosing [facility] External Ambulatory Referral 9. Non-smoker (Z78.9: Other specified health status) continue not smoking Ordered: meloxicam, 15 mg = 1 tab(s), Oral, Daily, # 30 tab(s), Refills(s) 0, Pharmacy: [facility]/pharmacy #[id number], 165.1, cm, 12/19/23 13:17:00 EDT, Height/Length Dosing, 114.6, kg, 12/19/23 13:17:00 EDT, Weight Dosing Orders: acetaminophen-hydrocod one, 1 tab(s), Oral, Bedtime for pain, 20 tab(s), Refill(s) 0, [facility]/pharmacy #[id number], 165.1, cm, 12/19/23 13:17:00 EDT, Height/Length Dosing, 114.6, kg, 12/19/23 13:17:00 EDT, Weight Dosing methocarbamol, See Instructions, TAKE 1 TABLET BY MOUTH EVERY 6 HOURS NEEDED FOR PAIN, # 30 tab(s), Refills(s) 0, [id number] 165.1, cm, 12/19/23 13:17:00 EDT, Height/Length Dosing, 114.6, kg, 12/19/23 13:17:00 EDT, Weight Dosing Follow-up No qualifying data available Problem List/Past Medical History Ongoing Anemia Anxiety Autonomic dysfunction BMI 40.0-44.9, adult Disorder of autonomic nervous system Dizzy spells Epigastric pain Facial tingling Facial twitching Fibromyalgia History of kidney stones Hot flashes Left upper quadrant pain Low back pain with sciatica Migraines Mixed incontinence urge and stress Paroxysmal tachycardia Pressure in head Right upper quadrant pain Sinus tachycardia Sleep disorder Tunnel vision Weight gain Historical Chronic low back pain [...] bone, Other, Surgery, Total bilateral salpingectomy. Medications Metoprolol tart (more content not included)... Normal [facility] Comment on above: Result Comment: Elec tronically Signed By: Brock ALY, Cristiane Bangura\.br\Date and Time Signed: 09/12/24 13:11 EST Ambulatory Visit Summaryon 0 09-11-2024 Ambulatory Visit Summary Ambulatory Visit Summary KAILA VASQUEZ :1980 Visit Date:09/11/2024 Ambulatory Visit Instructions Your Diagnosis BMI 40.0-44.9, adult Non-smoker Your Care Team Attending Physician - Cristiane Brasher Primary Care Physician - Cristiane Brasher This Is Your Medications List metoprolol (Metoprolol tartrate 50 mg Tab) tizanidine (tizanidine 4 mg oral capsule) Procedures Performed Cystourethroscopy with dilation of urethral stricture (11/04/2020), Abdominal hysterectomy, Cardiac radiofrequency ablation using ultrasound guidance, Cholecystectomy, Colonoscopy, Excision of osteochondroma, History of ankle surgery, Osteochondroma of bone, Other, Surgery, Total bilateral salpingectomy. Discharge Vitals Heart Rate (Peripheral) 98 Respiratory Rate 18 Blood Pressure 142/92 Height 165.1 cm Height 65 in Weight 119.80 kg Weight 264.113 lb BMI 43.95 Medications What How Much When Instructions Unchanged metoprolol (Metoprolol tartrate 50 mg Tab) 1 Tablets By Mouth 2 times a day Unchanged tizanidine (tizanidine 4 mg oral capsule) See instructions TAKE 1 CAPSULE BY MOUTH EVERY 8 HOURS NEEDED FOR MUSCLE SPASTICITY Allergies No Known Allergies Problems Ongoing - [...] you for choosing us for your care. [facility] ED Note-Physicianon 05-28-20 24 ED Note-Physician [id number]#1.00 TIFF Normal [facility] RAD - MRI Reporton RAD - MRI Report [id number]#1.0 0TIFF Normal [facility] RAD - MRI Report [id number]#1.0 0TIFF Normal [facility] RAD - MRI Report [id number]#1.00 TIFF Normal [facility] RAD - MRI Report [id number]#1.00 TIFF Normal [facility] RAD - MRI Report [id number]#1.0 0TIFF Normal [facility] RAD - MRI Report [id number]#1.00 TIFF Normal [facility] Physician Orderon 12-22-2023 Physician Order [id number]#1.00 TIFF Normal [facility] Provider Letteron 12-21-2023 Provider Letter December 21, 2023 KAILA VASQUEZ [address] [place] [address] : 1980 To Whom It May Concern, Please excuse above patient from work. Date of Illness: From: 12/19/2023 To: 12/21/2023 May Return to Work On: 12/22/2023 Sincerely, HARPREET Stewart [address] [address] [facility] Lab Reportson 12-20-2023 Lab Reports [id number]#1.[address] [facility] Physician Orderon 12-20-2023 Physician Order [id number]#1.00 TIFF Normal [facility] RAD - MISCon 12-20-2023 RAD - MIS [id number]#1.00 TIFF Normal [facility] Ambulatory Visit Summaryon 0 12-19-2023 [...] sciatica BMI 40.0-44.9, adult Non-smoker Pickup at [facility]/pharmacy #[id number] New meloxicam (meloxicam 15 mg Tab) 1 Tablets By Mouth Every day Low back pain with sciatica BMI 40.0-44.9, adult Non-smoker Pickup at [facility]/pharmacy #[id number] New methylPREDNISolone (Medrol 4 mg Tab) 1 Packets By Mouth As Directed Low back pain with sciatica BMI 40.0-44.9, adult Non-smoker Duration: 6 Days as directed on package labeling Pickup at [facility]/pharmacy #[id number] Unchanged metoprolol (Metoprolol tartrate 50 mg Tab) 1 Tablets By Mouth 2 times a day Pharmacy Information [facility]/pharmacy #[id number]: [address], [place] [id number] [phone] Medications and Immunizations Administered Given ketorolac 30 [...] us for your care. 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 Had x-ray done at [facility] for spine over a year or [...] Daily, # 30 tab(s), Refills(s) 0, Pharmacy: [facility]/pharmacy #[id number], 165.1, cm, 12/19/23 13:17:00 EDT, Height/Length Dosing, 114.6, kg, 12/19/23 13:17:00 EDT, Weight Dosing methylPREDNISolone, = 1 packet(s), Oral, As Directed, as directed on package labeling, X 6 day(s), # 21 tab(s), Refills(s) 0, [id number], 165.1, cm, 12/19/23 13:17:00 EDT, Height/Length Dosing, 114.6, kg, 12/19/23 13:17:00 EDT, Weight Dosing 2. BMI 40.0-44.9, adult (Z68.41: Body mass index [BMI] 40.0-44.9, adult) BMI education complete Ordered: cyclobenzaprine, 15 mg, 1 cap(s), Oral, Bedtime for spasm, 20 cap(s), Refill(s) 0, [id number], 165.1, cm, 12/19/23 13:17:00 EDT, Height/Length Dosing, 114.6, kg, 12/19/23 13:17:00 EDT, Weight Dosing ketorolac, 30 mg = 1 mL, Injection, IntraMuscular, Once, Stop date 12/19/23 13:35:00 EDT, Routine, Start date 12/19/23 13:35:00 EDT, 12/19/23 13:35:00 EDT meloxicam, 15 mg = 1 tab(s), Oral, Daily, # 30 tab(s), Refills(s) 0, [id number], 165.1, cm, 12/19/23 13:17:00 EDT, Height/Length Dosing, 114.6, kg, 12/19/23 13:17:00 EDT, Weight Dosing methylPREDNISolone, = 1 packet(s), Oral, As Directed, as directed on package labeling, X 6 day(s), # 21 tab(s), Refills(s) 0, Pharmacy: [facility]/pharmacy #[id number], 165.1, cm, 12/19/23 13:17:00 EDT, Height/Length Dosing, 114.6, kg, 12/19/23 13:17:00 EDT, Weight Dosing 3. Non-smoker (Z78.9: Other specified health status) continue not smoking Ordered: cyclobenzaprine, 15 mg, 1 cap(s), Oral, Bedtime for spasm, 20 cap(s), Refill(s) 0, [facility]/pharmacy #[id number], 165.1, cm, 12/19/23 13:17:00 EDT, Height/Length Dosing, 114.6, kg, 12/19/23 13:17:00 EDT, Weight Dosing ketorolac, 30 mg = 1 mL, Injection, IntraMuscular, Once, Stop date 12/19/23 13:35:00 EDT, Routine, Start date 12/19/23 13:35:00 EDT, 12/19/23 13:35:00 EDT meloxicam, 15 mg = 1 tab(s), Oral, Daily, # 30 tab(s), Refills(s) 0, Pharmacy: [facility]/pharmacy #[id number], 165.1, cm, 12/19/23 13:17:00 EDT, Height/Length Dosing, 114.6, kg, 12/19/23 13:17:00 EDT, Weight Dosing methylPREDNISolone, = 1 packet(s), Oral, As Directed, as directed on package labeling, X 6 day(s), # 21 tab(s), Refills(s) 0, Pharmacy: [facility]/pharmacy #[id number], 165.1, cm, 12/19/23 13:17:00 EDT, Height/Length Dosing, 114.6, kg, 12/19/23 13:17:00 EDT, Weight Dosing Follow-up No qualifying data available Problem List/Past Medical History Ongoing Anemia Anxiety (more content not included)... Normal [facility] Comment on above: Result Comment: Elec tronically Signed By: Cristiane Brasher\.br\Date and Time Signed: 12/19/23 13:59 EDT Physician Orderon 12-19-2023 Physician Order [id number]#1.00 TIFF Normal [facility] MRI BRAIN WO/W IVCONon 10-14 [...] cord. No mass or pathologic intradural enhancement. Production Technician: NARCISO Transcribe Date/Time: Oct 14 2022 8:43P Dictated by : UNIQUE ANDERSON MD This examination was interpreted and the report reviewed and electronically signed by: UNIQUE ANDERSON MD on Oct 14 2022 8:51PM EST [id number] Normal [facility] MRI CERVICAL SPINE WO/W IVCO Non [...] cord. No mass or pathologic intradural enhancement. Production Technician: [facility] Transcribe Date/Time: Oct 14 2022 8:43P Dictated by : UNIQUE ANDERSON MD This examination was interpreted and the report reviewed and electronically signed by: UNIQUE ANDERSON MD on Oct 14 2022 8:51PM EST [id number] Normal [facility] CBC AUTO DIFFon 09-02-2022 BASO # 0.1 103/ul Normal 0.0-0.1 [facility] Comment on above: Performed By: #### C MP, TSH, HSTROPN #### [facility] [address], [place] [address] Dr. Christos Fallon Basophils/100 WBC (Bld) 0.5 % Normal 0.2-2.0 [facility] Comment on above: Performed By: #### C MP, TSH, HSTROPN #### [facility] [address], [place] [address] Dr. Christos Fallon EO # 0.2 103/ul Normal 0.0-0.7 [facility] Comment on above: Performed By: #### C MP, TSH, HSTROPN #### [facility] [address] [place] [address] Dr. Christos Fallon Eosinophils/100 WBC (Bld) 2.3 % Normal 0.9-7.0 [facility] Comment on above: Performed By: #### C MP, TSH, HSTROPN #### [facility] [address] [place] [address] Dr. Christos Fallon Erythrocyte distribution width (RBC) [Ratio] 13.0 % Normal 11.0-15.0 [facility] Comment on above: Performed By: #### C MP, TSH, HSTROPN #### [facility] [address] [place] [address] Dr. Christos Fallon Hematocrit (Bld) [Volume fraction] 43.0 % Normal 36.0-48.0 [facility] Comment on above: Performed By: #### C MP, TSH, HSTROPN #### [facility] [address] [place] [address] Dr. Christos Fallon Hemoglobin (Bld) [Mass/Vol] 13.9 g/dL Normal 12.0-16.0 [facility] Comment on above: Performed By: #### C MP, TSH, HSTROPN #### [facility] [address] [place] [address] Dr. Christos Fallon IG # 0.03 10e3/ul Normal 0.00-0.03 [facility] Comment on above: Performed By: #### C MP, TSH, HSTROPN #### [facility] [address] [place] [address] Dr. Christos Fallon IG % 0.3 % Normal 0.0-0.5 [facility] Comment on above: Performed By: #### C MP, TSH, HSTROPN #### [facility] [address] [place] [address] Dr. Christos Fallon LYMPH # 2.8 103/ul Normal 1.2-3.8 [facility] Comment on above: Performed By: #### C MP, TSH, HSTROPN #### [facility] [address] [place] [address] Dr. Christos Fallon Lymphocytes/100 WBC (Bld) 29.6 % Normal 20.5-60.0 [facility] Comment on above: Performed By: #### C MP, TSH, HSTROPN #### [facility] [address] [place] [address] Dr. Christos Fallon MANUAL DIFF REQ NO Normal [facility] Comment on above: Performed By: #### C MP, TSH, HSTROPN #### [facility] [address] [place] [address] Dr. Christos Fallon MCH (RBC) [Entitic mass] 34.8 pg Critically high 26.7-34.0 [facility] Comment on above: Performed By: #### C MP, TSH, HSTROPN #### [facility] [address] [place] [address] Dr. Christos Fallon MCHC (RBC) [Mass/Vol] 32.3 g/dL Normal 29.9-35.2 [facility] Comment on above: Performed By: #### C MP, TSH, HSTROPN #### [facility] [address] [place] [address] Dr. Christos Fallon MCV (RBC) [Entitic vol] 107.5 fL Critically high 81.0-99.0 [facility] Comment on above: Performed By: #### C MP, TSH, HSTROPN #### [facility] [address] [place] [address] Dr. Christos Fallon MONO # 0.7 103/ul Normal 0.3-0.8 [facility] Comment on above: Performed By: #### C MP, TSH, HSTROPN #### [facility] [address] [place] [address] Dr. Christos Fallon Monocytes/100 WBC (Bld) 7.7 % Normal 1.7-12.0 [facility] Comment on above: Performed By: #### C MP, TSH, HSTROPN #### [facility] [address] [place] [address] [address] Christos Fallon NEUT # 5.7 103/ul Normal 1.4-6.5 [facility] Comment on above: Performed By: #### C MP, TSH, HSTROPN #### [facility] [address] [place] [address] Dr. Christos Fallon Neutrophils/100 WBC (Bld) 59.6 % Normal 43.0-75.0 [facility] Comment on above: Performed By: #### C MP, TSH, HSTROPN #### [facility] [address] [place] [address] [address] Christos Fallon Platelet mean volume (Bld) [Entitic vol] 9.9 fL Normal 9.5-13.5 [facility] Comment on above: Performed By: #### C MP, TSH, HSTROPN #### [facility] [address] [place] [address] Dr. Christos Fallon PLT 309 103/ul Normal 150-450 [facility] Comment on above: Performed By: #### C MP, TSH, HSTROPN #### [facility] [address] [place] [address] Dr. Christos Fallon RBC 4.00 106/ul Critically low 4.20-5.40 [facility] Comment on above: Performed By: #### C MP, TSH, HSTROPN #### [facility] [address] [place] [address] Dr. Christos Fallon WBC 9.6 103/ul Normal 4.0-11.0 [facility] Comment on above: Performed By: #### C MP, TSH, HSTROPN #### [facility] [address] [place] [address] Dr. Christos Fallon D-DIMERon 09-02-2022 D-DIMER 0.28 mg/L FEU Normal <=0.59 [facility] Comment on above: Performed By: #### C MP, TSH, HSTROPN #### [facility] [address] [place] [address] Dr. Christos Fallon D-DIMER COMMENTS SEE BELOW Normal [facility] Comment on above: Result Comment: Incr [...] By: #### C MP, TSH, HSTROPN #### [facility] [address] [place] [address] Dr. Christos Fallon PROF 14(COMP METB)on 023 Albumin [Mass/Vol] 3.8 g/dL Normal 3.4-5.0 [facility] Comment on above: Performed By: #### C MP, TSH, HSTROPN #### [facility] [address] [place] [address] Dr. Christos Fallon Albumin/Globulin [Mass ratio] 1.2 {ratio} Normal [facility] Comment on above: Performed By: #### C MP, TSH, HSTROPN #### [facility] [address] [place] [address] Dr. Christos Fallon ALP [Catalytic activity/Vol] 85 U/L Normal 46-116 [facility] Comment on above: Performed By: #### C MP, TSH, HSTROPN #### [facility] [address] [place] [address] Dr. Christos Fallon ALT [Catalytic activity/Vol] 39 U/L Normal 14-59 [facility] Comment on above: Performed By: #### C MP, TSH, HSTROPN #### [facility] [address] [place] [address] Dr. Christos Fallon Anion gap [Moles/Vol] 16.3 mmol/L Normal [facility] Comment on above: Performed By: #### C MP, TSH, HSTROPN #### [facility] [address] [place] [address] Dr. Christos Fallon AST [Catalytic activity/Vol] 19 U/L Normal 15-37 [facility] Comment on above: Performed By: #### C MP, TSH, HSTROPN #### [facility] [address] [place] [address] Dr. Christos Fallon Bilirubin [Mass/Vol] 0.4 mg/dL Normal 0.2-1.0 [facility] Comment on above: Performed By: #### C MP, TSH, HSTROPN #### [facility] [address] [place] [address] Dr. Christos Fallon Calcium [Mass/Vol] 9.2 mg/dL Normal 8.5-10.1 [facility] Comment on above: Performed By: #### C MP, TSH, HSTROPN #### [facility] [address] [place] [address] Dr. Christos Fallon Chloride [Moles/Vol] 101 mmol/L Normal 98-107 [facility] Comment on above: Performed By: #### C MP, TSH, HSTROPN #### [facility] [address] [place] [address] Dr. Christos Fallon CO2 [Moles/Vol] 24.9 mmol/L Normal 21.0-32.0 [facility] Comment on above: Performed By: #### C MP, TSH, HSTROPN #### [facility] [address] [place] [address] Dr. Christos Fallon Creatinine [Mass/Vol] 0.83 mg/dL Normal 0.55-1.02 [facility] Comment on above: Performed By: #### C MP, TSH, HSTROPN #### [facility] [address] [place] [address] Dr. Christos Fallon EGFR-AF FIJIAN >60 Normal >=60 [facility] Comment on above: Performed By: #### C MP, TSH, HSTROPN #### [facility] Laboratory [address] [place] [address] Dr. Christos Fallon EGFR-NON AF FIJIAN >60 Normal >=60 [facility] Comment on above: Performed By: #### C MP, TSH, HSTROPN #### [facility] [address] [address] [address] Christos Fallon Globulin (S) [Mass/Vol] 3.2 g/dL Normal [facility] Comment on above: Performed By: #### C MP, TSH, HSTROPN #### [facility] [address] [address] [address] Christos Fallon Glucose [Mass/Vol] 142 mg/dL Critically high 74-106 T [facility] Comment on above: Performed By: #### C MP, TSH, HSTROPN #### [facility] [address] [address] [address] Christos Fallon Potassium [Moles/Vol] 3.2 mmol/L Critically low 3.5-5.1 [facility] Comment on above: Performed By: #### C MP, TSH, HSTROPN #### [facility] [address] [place] [address] Dr. Christos Fallon Protein [Mass/Vol] 7.0 g/dL Normal 6.4-8.2 [facility] Comment on above: Performed By: #### C MP, TSH, HSTROPN #### [facility] [address] [place] [address] Dr. Christos Fallon Sodium [Moles/Vol] 139 mmol/L Normal 136-145 [facility] Comment on above: Performed By: #### C MP, TSH, HSTROPN #### [facility] [address] [address] [address] Christos Fallon Urea nitrogen [Mass/Vol] 10.0 mg/dL Normal 7.0-18.0 [facility] Comment on above: Performed By: #### C MP, TSH, HSTROPN #### [facility] [address] [place] [address] Dr. Christos Fallon Urea nitrogen/Creatinine [Mass ratio] 12.0 mg/mg Normal [facility] Comment on above: Performed By: #### C MP, TSH, HSTROPN #### [facility] [address] [place] [address] Dr. Christos Fallon PROTIMEon 09-02-2022 INR Coag (PPP) [Relative time] {INR} Normal [facility] Comment on above: Performed By: #### C MP, TSH, HSTROPN #### [facility] [address] [place] [address] Dr. Christos Fallon INR GUIDELINES SEE BELOW Normal [facility] Comment on above: Result Comment: GUALBERTO RED INR: 2.0 - 3.0 CONDITIONS NOT LISTED BELOW 2.5 - 3.5 FOR PROSTHETIC HEART VALVE REPLACEMENT 2.5 - 3.5 RECURRENT THROMBOSIS Performed By: #### C MP, TSH, HSTROPN #### [facility] [address] [place] [address] Dr. Christos Fallon PT Coag (PPP) [Time] 9.7 s Normal 9.0-11.6 [facility] Comment on above: Performed By: #### C MP, TSH, HSTROPN #### [facility] [address] [place] [address] Dr. Christos Fallon PTTon 09-02-2022 aPTT Coag (Bld) [Time] 25.9 s Normal 22.3-36.2 [facility] Comment on above: Performed By: #### C MP, TSH, HSTROPN #### [facility] [address] [place] [address] Dr. Christos Fallon TROPONIN, HIGH SENSITIVITYon 09-02-2022 HSTROP <4.0 Normal 4.0-51.3 [facility] Comment on above: Result Comment: CUT- OFF POINTS HAVE BEEN ESTABLISHED BASED ON THE FOURTH UNIVERSAL DEFINITIONS OF MYOCARDIAL INFARCTION. THE UPPER REFERENCE LIMIT (URL) OF TROPONIN, DEFINED THE 99TH PERCENTILE OF cTnI DISTRIBUTION IN A REFERENCE POPULATION, HAS BEEN CONFIRMED THE DECISION THRESHOLD FOR AK DIAGNOSIS. Performed By: #### C MP, TSH, HSTROPN #### [facility] [address] [place] [address] Dr. Christos Fallon TSHon 09-02-2022 TSH 0.813 uIU/mL Normal 0.358-3.740 [facility] Comment on above: Performed By: #### C MP, TSH, HSTROPN #### [facility] [address] [address] [address] Christos Fallon XR CHEST 1 Von [...] by: LEEANNE MON Date: 2022-09-02 15:09 Normal [facility] CNOVon 08-24-2022 CNOV Office Visit ([facility] ) KAILA VASQUEZ Emily ([id number]) 1980 F Date Time Provider Department 08/24/22 2:00 PM JANELL SY During your visit today, we recorded the following information about you: Pulse Blood pressure Weight Height 88/minute 112/73 112.9 kg 1.626 m Janell Sy MD 08/24/2022 2:17 PM Signed [facility] [place] SECTION OF REGIONAL CARDIOLOGY OUTPATIENT VISIT DATE [...] Cardiac work-up includes: Echocardiogram on 05/19/2020 at [facility] showed normal ejection fraction. No valvular heart [...] ECG COMPLETE 4. Obesity, morbid, BMI 40.0-49.9 ([facility]) E66.01 ECG COMPLETE 5. SVT (supraventricular tachycardia) ([facility]) I47.1 6. Chronic fatigue R53.82 7. Vitamin [...] apnea) Palpitatio (more content not included)... Normal [facility] ECG COMPLETEon 08-24-2022 ECG COMPLETE Ventricular Rate : 8 4 BPM Atrial Rate : 84 BPM P-R Interval : 166 ms QRS Duration : 92 ms Q-T Interval : 358 ms QTC Calculation(Bazett) : 423 ms Calculated P Max : 60 degrees Calculated R Max : 45 degrees Calculated T Max : 45 degrees NORMAL SINUS RHYTHM INCREASED R/S RATIO IN V1, CONSIDER EARLY TRANSITION OR POSTERIOR INFARCT ABNORMAL ECG Confirmed by MEERA BOYD M.D. ([id number]) on 08/28/2022 3:03:10 PM NAME : KAILA VASQUEZ PID : [id number] : 1980 Gender : Female Race : ORD : [id number] Procedure Date : Aug 24 2022 13:56:02 Edit Date : Aug 28 2022 15:03:10 Diagnosis: NORMAL SINUS RHYTHM INCREASED R/S RATIO IN V1, CONSIDER EARLY TRANSITION OR POSTERIOR INFARCT ABNORMAL ECG Confirmed by MEERA BOYD M.D. ([id number]) on 08/28/2022 3:03:10 PM Test Reason : Location : 145 : ROSANA Overread By : MEERA BOYD M.D. Edited By : MEERA BOYD M.D. Referred By : JANELL SY Acquired by : Jose browning [facility] CNTHERAPYon 08-12-2022 CNTHERAPY OT[facility] KAILA VASQUEZ ([id number]) 1980 F Date Time Provider Department 08/12/22 2:45 PM CARMEN JOHNSON [facility] Date Time Provider Department Center 08/12/2022 2:45 PM [id number], KARA [facility] Reason for Visit: Physical Therapy [...] % (flush) 10 mL (BD POSIFLUSH) Jose [facility] CNTHERAPYon 08-05-2022 CNTHERAPY OT/PT/Speech Visit ([facility]) CHRISTINAKAILA N ([id number]) 1980 F Date Time Provider Department 08/05/22 9:15 AM CARMEN J[facility]NSON [facility] Date Time Provider Department Center 08/05/2022 9:15 AM [id number], KARA [facility] Reason for Visit: PT Eval [747] [...] % (flush) 10 mL (BD POSIFLUSH) Normal [facility] SARS-CoV-2 (COVID-19) RNA LEROY+probe Ql (Unsp spec) Not detected Normal NOT DETECTED [facility] Comment on above: Result Comment: When [...] for this test is supported by the Stand Up Comedian of Health and Human Service's declaration that [...] used). Performed By: #### C VDAGA #### [facility] [address] [place] [address] Dr. Christos Fallon 25(OH)D3 [facility] 2021 25-hydroxyvitamin D3 [Mass/Vol] 15.8 ng/mL Low 31.0-80.0 [facility] Comment on above: Order Comment: Speci men Type: BLOOD SPECIMENOrdering Facility: [facility] Address: [address] [place] [address] Result Comment: Clas sification of 25 [place] Vitamin D status: Deficiency/Insufficiency: < or = 30 ng/ml. Sufficiency/Optimal Levels: 31-80 ng/mL Toxicity: > 100 ng/mL. Test performed by chemiluminescent immunoassay. Performed By: #### 1 989-3 ####[facility] LABCLIA [id number] [facility] [id number] [place] [address] [place] ESEQUIEL BY IFA WITH REFLEXon ESEQUIEL PATTERN Nuclear fine speckled Normal Cl [facility] Comment on above: Order Comment: Bryan hernández Type: BLOOD SPECIMENOrdering Facility: [facility] Address: [address] [place] [address] Performed By: #### 2 9374-6, 48363-6, 07189-8, 20877-9, 12133-5, ANAIFR, 46472-2, 14872-4, 23751-5, 39910-1 ####[facility] LABIA [id number] [place] [address] [place] ESEQUIEL TITER 1:160 Normal [facility] Comment on above: Order Comment: Speci men Type: BLOOD SPECIMENOrdering Facility: [facility] Address: [address] [place] [address] Performed By: #### 2 9374-6, 05879-2, 63986-9, 91941-1, 66338-0, ANAIFR, 15179-2, 24859-2, 82262-1, 20065-5 ####[facility] LABIA [id number] [place] [address] [place] Nuclear Ab IF (S) [Titer] Positive Abnormal Negative [facility] Comment on above: Order Comment: Speci men Type: BLOOD SPECIMENOrdering Facility: [facility] Address: [address] [place] [address] Result Comment: Anti -nuclear antibody test is used as an aid in diagnosis of systemic autoimmune diseases. Where positive and clinically warranted, follow-up using disease-specific testing is recommended. Low positive titers are not uncommon with advanced age, certain chronic infections, and malignancies among others. Test methodology: Indirect fluorescence immunoassay (IFA) using HEp-2 cells. Performed By: #### 2 9374-6, 31543-3, 52981-5, 70103-3, 57728-7, ANAIFR, 22694-6, 59653-6, 85444-1, 91485-4 ####[facility] LABIA [id number] [place] [address] [place] Basic metabolic 2000 panelon 07-07-2022 Anion gap [Moles/Vol] 13 mmol/L Normal 9-18 [facility] Comment on above: Order Comment: Speci men Type: BLOOD SPECIMENOrdering Facility: [facility] Address: [address] [place] [address] Performed By: #### 2 4321-2 ####[facility] LABCLIA [id number] [place] [address] [place] Calcium [Mass/Vol] 9.3 mg/dL Normal 8.5-10.2 [facility] Comment on above: Order Comment: Speci men Type: BLOOD SPECIMENOrdering Facility: [facility] Address: [address] [place] [address] Performed By: #### 2 4321-2 ####[facility] LABCLIA [id number] [place] [address] [place] Chloride [Moles/Vol] 102 mmol/L Normal 97-105 [facility] Comment on above: Order Comment: Speci men Type: BLOOD SPECIMENOrdering Facility: [facility] Address: [address] [place] [address] Performed By: #### 2 4321-2 ####[facility] LABCLIA [id number] [place] [address] [place] CO2 [Moles/Vol] 23 mmol/L Normal 22-30 [facility] Comment on above: Order Comment: Speci men Type: BLOOD SPECIMENOrdering Facility: [facility] Address: [address] [place] [address] Performed By: #### 2 4321-2 ####[facility] LABCLIA [id number] [place] [address] [place] Creatinine [Mass/Vol] 0.72 mg/dL Normal 0.58-0.96 [facility] Comment on above: Order Comment: Speci men Type: BLOOD SPECIMENOrdering Facility: [facility] Address: [address] [place] [address] Performed By: #### 2 4321-2 ####[facility] LABCLIA [id number] [place] [address] [place] ESTIMATED GLOMERULAR FILTRATION RATE 109 mL/min/1.73m??? Normal >=60 [facility] Comment on above: Order Comment: Bryan hernández Type: BLOOD SPECIMENOrdering Facility: [facility] Address: [address] [place] [address] Result Comment: Dina mated Glomerular Filtration Rate [...] By: #### 2 4321-2 ####[facility] LABCLIA [id number] [place] [address] [place] Glucose [Mass/Vol] 98 mg/dL Normal 74-99 [facility] Comment on above: Order Comment: Brayn hernández Type: BLOOD SPECIMENOrdering Facility: [facility] Address: [address] [place] [address] Result Comment: The [place] Diabetes Association (ADA) provides guidance for cutoff [...] Standards of Medical Care in Diabetes 2016, [place] [employer] Association. Diabetes Care. 2016.39(Suppl 1). Performed By: #### 2 4321-2 ####[facility] LABCLIA [id number] [place] [address] [place] Potassium [Moles/Vol] 4.1 mmol/L Normal 3.7-5.1 [facility] Comment on above: Order Comment: Speci men Type: BLOOD SPECIMENOrdering Facility: [facility] Address: [address] [address] Performed By: #### 2 4321-2 ####[facility] LABCLIA [id number] [place] [address] [place] Sodium [Moles/Vol] 138 mmol/L Normal 136-144 [facility] Comment on above: Order Comment: Speci men Type: BLOOD SPECIMENOrdering Facility: [facility] Address: [address] [address] Performed By: #### 2 4321-2 ####[facility] LABCLIA [id number] [place] [address] [place] Urea nitrogen [Mass/Vol] 8 mg/dL Normal 7-21 [facility] Comment on above: Order Comment: Speci men Type: BLOOD SPECIMENOrdering Facility: [facility] Address: [address] [address] Performed By: #### 2 4321-2 ####[facility] LABCLIA [id number] [place] [address] [place] Anion gap [Moles/Vol] 13 mmol/L 9 - 18 mmol/L [facility] Calcium [Mass/Vol] 9.3 mg/dL 8.5 - 10. 2 mg/dL [facility] Chloride [Moles/Vol] 102 mmol/L 97 - 10 5 mmol/L [facility] CO2 [Moles/Vol] 23 mmol/L 22 - 30 mmol/L [facility] Creatinine [Mass/Vol] 0.72 mg/dL 0.58 - 0.96 mg/dL [facility] Estimated Glomerular Filtration Rate 109 mL/min/1.73m >=60 mL/min/1.73m [facility] Glucose [Mass/Vol] 98 mg/dL 74 - 99 mg/dL [facility] Potassium [Moles/Vol] 4.1 mmol/L 3.7 - 5.1 mmol/L [facility] Sodium [Moles/Vol] 138 mmol/L 136 - 144 mmol/L [facility] Urea nitrogen [Mass/Vol] 8 mg/dL 7 - 21 mg/dL [facility] CBC W Auto Differential pane l (Bld)on 07-07-2022 Basophils (Bld) [#/Vol] 0.04 10*3/uL Normal <0.11 [facility] Comment on above: Order Comment: Speci men Type: BLOOD SPECIMENOrdering Facility: [facility] Address: [address] [place] [address] Performed By: #### 5 7021-8 ####[facility] LABCLIA [id number] [place] [address] [place] Basophils/100 WBC (Bld) 0.5 % Normal [facility] Comment on above: Order Comment: Speci men Type: BLOOD SPECIMENOrdering Facility: [facility] Address: [address] [place] [address] Performed By: #### 5 7021-8 ####[facility] LABCLIA [id number] [place] [address] [place] Differential cell count method Nom (Bld) Auto Normal [facility] Comment on above: Order Comment: Speci men Type: BLOOD SPECIMENOrdering Facility: [facility] Address: [address] [place] [address] Performed By: #### 5 7021-8 ####[facility] LABCLIA [id number] [place] [address] [place] Eosinophils (Bld) [#/Vol] 0.29 10*3/uL Normal <0.46 [facility] Comment on above: Order Comment: Speci men Type: BLOOD SPECIMENOrdering Facility: [facility] Address: [address] [place] [address] Performed By: #### 5 7021-8 ####[facility] LABCLIA [id number] MEADOW SARAH [id number] [address] [place] Eosinophils/100 WBC (Bld) 3.9 % Normal [facility] Comment on above: Order Comment: Speci men Type: BLOOD SPECIMENOrdering Facility: [facility] Address: [address] [place] [address] Performed By: #### 5 7021-8 ####[facility] LABCLIA [id number] [place] [address] [place] Erythrocyte distribution width (RBC) [Ratio] 12.1 % Normal 11.5-15.0 [facility] Comment on above: Order Comment: Speci men Type: BLOOD SPECIMENOrdering Facility: [facility] Address: [address] [place] [address] Performed By: #### 5 7021-8 ####[facility] LABCLIA [id number] [place] [address] [place] Hematocrit (Bld) [Volume fraction] 43.5 % Normal 36.0-46.0 [facility] Comment on above: Order Comment: Speci men Type: BLOOD SPECIMENOrdering Facility: [facility] Address: [address] [place] [address] Performed By: #### 5 7021-8 ####[facility] LABCLIA [id number] [place] [address] [place] Hemoglobin (Bld) [Mass/Vol] 14.9 g/dL Normal 11.5-15.5 [facility] Comment on above: Order Comment: Speci men Type: BLOOD SPECIMENOrdering Facility: [facility] Address: [address] [place] [address] Performed By: #### 5 7021-8 ####[facility] LABCLIA [id number] [place] [address] [place] Immature granulocytes (Bld) [#/Vol] 0.03 10*3/uL Normal <0.10 [facility] Comment on above: Order Comment: Speci men Type: BLOOD SPECIMENOrdering Facility: [facility] Address: [address] [address] Performed By: #### 5 7021-8 ####[facility] LABCLIA [id number] [place] [address] [place] Immature granulocytes/100 WBC (Bld) 0.4 % Normal [facility] Comment on above: Order Comment: Speci men Type: BLOOD SPECIMENOrdering Facility: [facility] Address: [address] [place] [address] Performed By: #### 5 7021-8 ####[facility] LABCLIA [id number] [place] [address] [place] Lymphocytes (Bld) [#/Vol] 1.71 10*3/uL Normal 1.00-4.00 [facility] Comment on above: Order Comment: Speci men Type: BLOOD SPECIMENOrdering Facility: [facility] Address: [address] [place] [address] Performed By: #### 5 7021-8 ####[facility] LABIA [id number] [place] [address] [place] Lymphocytes/100 WBC (Bld) 23.2 % Normal [facility] Comment on above: Order Comment: Speci men Type: BLOOD SPECIMENOrdering Facility: [facility] Address: [address] [place] [address] Performed By: #### 5 7021-8 ####[facility] LABIA [id number] [place] [address] [place] MCH (RBC) [Entitic mass] 34.1 pg High 26.0-34.0 [facility] Comment on above: Order Comment: Speci men Type: BLOOD SPECIMENOrdering Facility: [facility] Address: [address] [place] [address] Performed By: #### 5 7021-8 ####[facility]CL[facility] [id number] [place] [address] [place] MCHC (RBC) [Mass/Vol] 34.3 g/dL Normal 30.5-36.0 [facility] Comment on above: Order Comment: Speci men Type: BLOOD SPECIMENOrdering Facility: [facility] Address: [address] [address] Performed By: #### 5 7021-8 ####[facility] LABCLIA [id number] [place] [address] [place] MCV (RBC) [Entitic vol] 99.5 fL Normal 80.0-100.0 [facility] Comment on above: Order Comment: Speci men Type: BLOOD SPECIMENOrdering Facility: [facility] Address: [address] [place] [address] Performed By: #### 5 7021-8 ####[facility] LABIA [id number] [place] [address] [place] Monocytes (Bld) [#/Vol] 0.57 10*3/uL Normal <0.87 [facility] Comment on above: Order Comment: Speci men Type: BLOOD SPECIMENOrdering Facility: [facility] Address: [address] Performed By: #### 5 7021-8 ####[facility] LABCLIA [id number] [place] [address] [place] Monocytes/100 WBC (Bld) 7.7 % Normal [facility] Comment on above: Order Comment: Speci men Type: BLOOD SPECIMENOrdering Facility: [facility] Address: [address] Performed By: #### 5 7021-8 ####[facility] LABIA [id number] [place] [address] [place] Neutrophils (Bld) [#/Vol] 4.73 10*3/uL Normal 1.45-7.50 [facility] Comment on above: Order Comment: Speci men Type: BLOOD SPECIMENOrdering Facility: [facility] Address: [address] [place] [address] Performed By: #### 5 7021-8 ####[facility] LABCLIA [id number] [place] [address] [place] Neutrophils/100 WBC (Bld) 64.3 % Normal [facility] Comment on above: Order Comment: Speci men Type: BLOOD SPECIMENOrdering Facility: [facility] Address: [address] [place] [address] Performed By: #### 5 7021-8 ####[facility] LABCLIA [id number] [place] [address] [place] Nucleated RBC (Bld) [#/Vol] 10*3/uL Normal <0.01 [facility] Comment on above: Order Comment: Speci men Type: BLOOD SPECIMENOrdering Facility: [facility] Address: [address] [place] [address] Performed By: #### 5 7021-8 ####[facility] LABCLIA [id number] [place] [address] [place] Nucleated RBC/100 WBC (Bld) [Ratio] 0.0 /100 WBC Normal [facility] Comment on above: Order Comment: Speci men Type: BLOOD SPECIMENOrdering Facility: [facility] Address: [address] [place] [address] Performed By: #### 5 7021-8 ####[facility] LABCLIA [id number] [place] [address] [place] Platelet mean volume (Bld) [Entitic vol] 9.6 fL Normal 9.0-12.7 [facility] Comment on above: Order Comment: Speci men Type: BLOOD SPECIMENOrdering Facility: [facility] Address: [address] [place] [address] Performed By: #### 5 7021-8 ####[facility] LABCLIA [id number] [place] [address] [place] Platelets (Bld) [#/Vol] 277 10*3/uL Normal 150-400 [facility] Comment on above: Order Comment: Speci men Type: BLOOD SPECIMENOrdering Facility: [facility] Address: [address] [place] [address] Performed By: #### 5 7021-8 ####[facility] LABIA [id number] [place] [address] [place] RBC (Bld) [#/Vol] 4.37 10*6/uL Normal 3.90-5.20 [facility] Comment on above: Order Comment: Speci men Type: BLOOD SPECIMENOrdering Facility: [facility] Address: [address] [place] [address] Performed By: #### 5 7021-8 ####[facility] LABIA [id number] [place] [address] [place] WBC (Bld) [#/Vol] 7.37 10*3/uL Normal 3.70-11.00 [facility] Comment on above: Order Comment: Speci men Type: BLOOD SPECIMENOrdering Facility: [facility] Address: [address] [place] [address] Performed By: #### 5 7021-8 ####[facility] LABIA [id number] [place] [address] [place] Basophils (Bld) [#/Vol] 0.04 10*3/uL <0.11 k/uL [facility] Basophils/100 WBC (Bld) 0.5 % [facility] Differential cell count method Nom (Bld) Auto [facility] Eosinophils (Bld) [#/Vol] 0.29 10*3/uL <0.46 k/uL [facility] Eosinophils/100 WBC (Bld) 3.9 % [facility] Erythrocyte distribution width (RBC) [Ratio] 12.1 % 11.5 - 15.0 % [facility] Hematocrit (Bld) [Volume fraction] 43.5 % 36.0 - 46.0 % [facility] Hemoglobin (Bld) [Mass/Vol] 14.9 g/dL 11.5 - 15.5 g/dL [facility] Immature granulocytes (Bld) [#/Vol] 0.03 10*3/uL <0.10 k/uL [facility] Immature granulocytes/100 WBC (Bld) 0.4 % [facility] Lymphocytes (Bld) [#/Vol] 1.71 10*3/uL 1.00 - 4.00 k/uL [facility] Lymphocytes/100 WBC (Bld) 23.2 % [facility] MCH (RBC) [Entitic mass] 34.1 pg High 26.0 - 34.0 pg [facility] MCHC (RBC) [Mass/Vol] 34.3 g/dL 30.5 - 36.0 g/dL [facility] MCV (RBC) [Entitic vol] 99.5 fL 80.0 - 100.0 fL [facility] Monocytes (Bld) [#/Vol] 0.57 10*3/uL <0.87 k/uL [facility] Monocytes/100 WBC (Bld) 7.7 % [facility] Neutrophils (Bld) [#/Vol] 4.73 10*3/uL 1.45 - 7.50 k/uL [facility] Neutrophils/100 WBC (Bld) 64.3 % [facility] Nucleated RBC (Bld) [#/Vol] <0.01 k/uL [facility] Nucleated RBC/100 WBC (Bld) [Ratio] 0.0 /100 WBC [facility] Platelet mean volume (Bld) [Entitic vol] 9.6 fL 9.0 - 12.7 fL [facility] Platelets (Bld) [#/Vol] 277 10*3/uL 150 - 400 k/uL [facility] RBC (Bld) [#/Vol] 4.37 10*6/uL 3.90 - 5.2 0 m/uL [facility] WBC (Bld) [#/Vol] 7.37 10*3/uL 3.70 - 11. 00 k/uL [facility] CNOVon 07-07-2022 CNOV Office Visit (NEUSHF ) KAILA VASQUEZ ([id number]) 1980 F Date Time Provider Department 07/07/22 8:00 AM GLENROY SYED During your visit today, we recorded the following information about you: Pulse Blood pressure Weight Height 82/minute 134/88 112 kg 1.626 m Glenroy Syed APRN.[employer]ISH DIV[employer] CHAIR 07/07/2022 12:28 PM Signed [facility] General Neurology New Patient Evaluation CHIEF [...] over a month. 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 A couple times a month she gets [...] tobacco: Never (more content not included)... Normal [facility] CNPNon 07-07-2022 CNPN Telephone (NEADFV) KAILA VASQUEZ ([id number]) 1980 F Date Time Provider Department 07/07/22 GLENROY SYEDFV During your visit today, we recorded the following information about you: Cinthya Salgado 07/07/2022 8:52 AM Signed Received medical records from [facility]. Uploaded to chart and forwarded for review. Kajal Gillespie RN 07/07/2022 9:14 AM Signed Noted. Provider notified. Allergies As of Date: 07/07/2022 (Not on File) Date Reviewed: 07/07/2022 Reviewed by: Elaine Bolaños Ma - Fully Assessed Reason for Visit: Received Outside Medical Records [[id number]] Prescriptions as of 07/19/2022 - metoprolol tartrate, short acting, (LOPRESSOR) 50 mg tablet metoprolol tartrate 50 mg tablet Facility-Administered Medications as of 07/19/2022 - perflutren lipid microspheres 1.3 mL in NaCl (PF) 0.9% 10 mL injection (DEFINITY) - sodium chloride 0.9 % (flush) 10 mL (BD POSIFLUSH) Problem List As Of Date: 07/07/2022 (None) Encounter Status:Closed by CINTHYA SALGADO on 07/19/22 Normal [facility] Centromere Ab IF Ql (S)on Centromere Ab Qn (S) <0.2 Normal <1.0 [facility] Comment on above: Order Comment: Speci men Type: BLOOD SPECIMENOrdering Facility: [facility] Address: [address] [place] [address] Result Comment: Anti -centromere antibody is used as in aid in diagnosis of systemic sclerosis. Clinical correlation is required. Test Methodology: Multiplex flow immunoassay. Performed By: #### 2 9374-6, 95476-7, 41659-4, 28396-6, 82867-5, ANAIFR, 95065-7, 75707-1, 98575-9, 67244-8 ####[facility] LABIA [id number] [address] [place] CENTROMERE AB QUAL Negative Normal Negative [facility] Comment on above: Order Comment: Speci men Type: BLOOD SPECIMENOrdering Facility: [facility] Address: [address] [place] [address] Performed By: #### 2 9374-6, 25972-6, 96074-9, 45714-8, 68560-2, ANAIFR, 63099-0, 63279-3, 82830-4, 08337-2 ####[facility] LABIA [id number] [place] [address] [place] Chromatin Ab Qnon 07-07-2022 CHROMATIN AB QUAL Negative Normal Negative [facility] Comment on above: Order Comment: Speci men Type: BLOOD SPECIMENOrdering Facility: [facility] Address: [address] [place] [address] Performed By: #### 2 9374-6, 43126-9, 68446-8, 96539-9, 86302-9, ANAIFR, 26428-0, 57885-8, 79023-1, 50869-8 ####[facility] LABIA [id number] [place] [address] [place] Chromatin Ab SerPl-aCncon Chromatin Ab Qn <0.2 Normal <1.0 [facility] Comment on above: Order Comment: Speci men Type: BLOOD SPECIMENOrdering Facility: [facility] Address: [address] [place] [address] Result Comment: Test Methodology: Multiplex flow immunoassay. Performed By: #### 2 9374-6, 95076-8, 24487-3, 79392-6, 47566-5, ANAIFR, 34898-7, 40751-5, 70605-5, 07951-9 ####[facility] [id number] [address] [place] KAMRAN Jo1 Ab Ser-aCncon 2021 Radha-1 extractable nuclear Ab Qn (S) <0.2 Normal <1.0 [facility] Comment on above: Order Comment: Speci men Type: BLOOD SPECIMENOrdering Facility: [facility] Address: [address] [place] [address] Performed By: #### 2 9374-6, 72847-0, 58585-3, 89979-1, 63861-6, ANAIFR, 95017-5, 38251-3, 35559-6, 85883-3 ####[facility] LABIA [id number] [place] [address] [place] KAMRAN CONCERT MANAGER Ab Ser-aCncon 2021 Ribonucleoprotein extractable nuclear Ab Qn (S) <0.2 Normal <1.0 [facility] Comment on above: Order Comment: Speci men Type: BLOOD SPECIMENOrdering Facility: [facility] Address: [address] [place] [address] Performed By: #### 2 9374-6, 27354-1, 21698-1, 23887-8, 98265-3, ANAIFR, 44773-1, 84008-2, 99709-7, 80895-6 ####[facility] LABIA [id number] [place] [address] [place] KAMRAN SM IgG Ser-aCncon 2021 Osborne extractable nuclear IgG Qn (S) <0.2 Normal <1.0 [facility] Comment on above: Order Comment: Speci men Type: BLOOD SPECIMENOrdering Facility: [facility] Address: [address] [place] [address] Performed By: #### 2 9374-6, 29635-9, 95526-1, 33890-1, 26397-6, ANAIFR, 36962-0, 36038-8, 89533-9, 04278-6 ####[facility] LABIA [id number] [place] [address] [place] KAMRAN SS-A Ab Ser-aCncon 07-07 Sjogrens syndrome-A extractable nuclear Ab Qn (S) 0.3 AI Normal <1.0 [facility] Comment on above: Order Comment: Speci men Type: BLOOD SPECIMENOrdering Facility: [facility] Address: [address] [place] [address] Result Comment: Test Methodology: Multiplex flow immunoassay. Performed By: #### 2 9374-6, 30870-8, 64316-0, 05242-8, 08388-8, ANAIFR, 05455-7, 98563-5, 33578-2, 03573-1 ####[facility] LABIA [id number] [place] [address] [place] KAMRAN SS-B Ab Ser-aCncon 07-07 Sjogrens syndrome-B extractable nuclear Ab Qn (S) <0.2 Normal <1.0 [facility] Comment on above: Order Comment: Speci men Type: BLOOD SPECIMENOrdering Facility: [facility] Address: [address] [place] [address] Result Comment: Anti -SSB (anti-La) antibody is used as an aid in diagnosis of a variety of systemic autoimmune diseases, especially for Sjogren's syndrome and systemic lupus erythematosus. Clinical correlation is required. Test Methodology: Multiplex flow immunoassay. Performed By: #### 2 9374-6, 00740-9, 21293-8, 41213-5, 48137-0, ANAIFR, 29792-5, 25866-0, 33814-8, 00145-8 ####[facility] [id number] [place] [address] [place] Radha-1 extractable nuclear Ab Qn (S)on 07-07-2022 RADHA 1 ANTIBODY QUAL Negative Normal Negative [facility] Comment on above: Order Comment: Speci men Type: BLOOD SPECIMENOrdering Facility: [facility] Address: [address] [place] [address] Result Comment: Anti -RADHA-1 antibody is used as an aid in diagnosis of polymyositis and dermatomyositis especially with pulmonary involvement. A negative result cannot rule out polymyositis or dermatomyositis. Clinical correlation is required. Test Methodology: Multiplex flow immunoassay. Performed By: #### 2 9374-6, 71117-6, 98492-7, 23773-4, 46648-9, ANAIFR, 46784-1, 17069-2, 85657-0, 73477-1 ####[facility] LABIA [id number] [place] [id number] [place] Ribonucleoprotein extractabl e nuclear Ab Qn (S)on 07-07-2022 ANTI-CONCERT MANAGER QUAL Negative Normal Negative [facility] Comment on above: Order Comment: Speci men Type: BLOOD SPECIMENOrdering Facility: [facility] Address: [address] [place] [address] Performed By: #### 2 9374-6, 88352-3, 82243-1, 06691-4, 78877-1, ANAIFR, 40102-9, 22355-2, 28114-0, 25277-2 ####[facility] [id number] [place] [address] [place] RIBOSOMAL CONCERT MANAGER QUAL Negative Normal Negative [facility] Comment on above: Order Comment: Speci betty Type: BLOOD SPECIMENOrdering Facility: [facility] Address: [address] [place] [address] Result Comment: Anti -Ribosomal RNA (Ribosomal P) antibody is used as an aid in diagnosis of systemic autoimmune diseases especially systemic lupus erythematosus and mixed connective tissue disease. Cross-reactivity with Anti-osborne antibody is not uncommon. Clinical correlation is required. Test Methodology: Multiplex flow immunoassay. Performed By: #### 2 9374-6, 56820-1, 98927-7, 79098-9, 44273-8, ANAIFR, 64016-9, 49626-1, 46833-3, 79528-1 ####[facility] [id number] [place] [address] [place] SCL-70 extractable nuclear I gG IA Qn (S)on 07-07-2022 SCLERODERMA AB QUAL Negative Normal Negative [facility] Comment on above: Order Comment: Bryan hernández Type: BLOOD SPECIMENOrdering Facility: [facility] Address: [address] [place] [address] Performed By: #### 2 9374-6, 07822-7, 44721-9, 48457-5, 08360-7, ANAIFR, 85147-8, 52694-0, 05598-5, 30985-1 ####[facility] [id number] [place] [address] [place] SCLERODERMA IGG AB <0.2 Normal <1.0 [facility] Comment on above: Order Comment: Bryan hernández Type: BLOOD SPECIMENOrdering Facility: [facility] Address: [address] [place] [address] Result Comment: Scl- 70/Scleroderma antibody test is used as an aid in diagnosis of systemic sclerosis especially the diffuse cutaneous form. A negative result cannot rule out systemic sclerosis. The final interpretation should consider clinical picture and other test results such as anti-centromere antibody. Test Methodology: Multiplex flow immunoassay. Performed By: #### 2 9374-6, 54511-3, 11788-5, 08958-8, 43560-2, ANAIFR, 52196-8, 66161-1, 56244-1, 68620-1 ####[facility] LABIA [id number] [place] [address] [place] Sjogrens syndrome-A extracta ble nuclear Ab Qn (S)on 07-07-2022 SSA ANTIBODY QUAL Negative Normal Negative [facility] Comment on above: Order Comment: Speci men Type: BLOOD SPECIMENOrdering Facility: [facility] Address: [address] [place] [address] Performed By: #### 2 9374-6, 49839-2, 35156-7, 88920-5, 54356-4, ANAIFR, 09667-8, 21056-9, 53657-7, 11980-8 ####[facility] [id number] [place] [address] [place] Sjogrens syndrome-B extracta ble nuclear Ab Qn (S)on 07-07-2022 SSB ANTIBODY QUAL Negative Normal Negative [facility] Comment on above: Order Comment: Speci men Type: BLOOD SPECIMENOrdering Facility: [facility] Address: [address] [place] [address] Performed By: #### 2 9374-6, 15906-1, 09119-1, 39701-0, 73232-4, ANAIFR, 69394-8, 41017-3, 65080-4, 29833-9 ####[facility] LABIA [id number] [place] [address] [place] Osborne extractable nuclear Ig G Qn (S)on 07-07-2022 SM ANTIBODY QUAL Negative Normal Negative [facility] Comment on above: Order Comment: Speci men Type: BLOOD SPECIMENOrdering Facility: [facility] Address: [address] [place] [address] Result Comment: Anti -Sm (Osborne) antibody is used as an aid in diagnosis of systemic lupus erythematosus and its presence is associated with renal disease. A negative result cannot rule out systemic lupus erythematosus. Clinical correlation is required. Test Methodology: Multiplex flow immunoassay. Performed By: #### 2 9374-6, 99442-8, 61390-0, 07130-3, 73886-9, ANAIFR, 78730-7, 35002-3, 32868-6, 13692-9 ####[facility] LABIA [id number] [place] [address] [place] TSH BLDon 07-07-2022 TSH Qn 0.824 m[IU]/L 0.270 - 4.200 mIU/L [facility] TSH SerPl-aCncon 07-07-2022 TSH Qn 0.824 m[IU]/L Normal 0.270-4.200 [facility] Comment on above: Order Comment: Bryan hernández Type: BLOOD SPECIMENOrdering Facility: [facility] Address: [address] [place], [place] [address] Result Comment: If t he patient is , TSH reference range varies by gestational period: First Trimester (weeks 9-12): 0.180-2.990 mIU/L Second Trimester: 0.110-3.980 mIU/L Third Trimester: 0.480-4.710 mIU/L Eliezer Bangura et al. A Practical Approach for the Verifications and Determination of Site- and Trimester-Specific Reference Intervals for Thyroid Function tests in . Thyroid, 2019:29:3:412-420. Rob E, et al. 2017 Guidelines of the [place] [employer] for the Diagnosis and Management of Thyroid Disease during and the . Thyroid, 2017:27:3:315-389. Performed By: #### 3 016-3, 2132-9 ####[facility] LABCLIA [id number] [place] [id number] [place] VITAMIN B12 BLOODon 11-30-20 22 Cobalamin (Vitamin B12) [Mass/Vol] 618 pg/mL 232 - 1,245 pg/mL [facility] Vit B12 SerPl-mCncon 022 Cobalamin (Vitamin B12) [Mass/Vol] 618 pg/mL Normal 232-1245 [facility] Comment on above: Order Comment: Speci men Type: BLOOD SPECIMENOrdering Facility: [facility] Address: [address] [place] [address] Performed By: #### 3 016-3, 2132-9 ####[facility] LABCLIA [id number] [place] [address] [place] dsDNA Ab Ser IA-aCncon 07-07 DNA double strand Ab IA Qn (S) <12 Normal <30 [facility] Comment on above: Order Comment: Speci men Type: BLOOD SPECIMENOrdering Facility: [facility] Address: [address] [place] [address] Result Comment: Nega tive for ds DNA Antibodies. <30 IU/mL Negative 30-74 IU/mL Equivocal >74 IU/mL Positive Performed By: #### 2 9374-6, 91544-9, 92623-7, 64469-7, 01580-3, ANAIFR, 22258-1, 45156-1, 18646-3, 30678-5 ####[facility] LABCLIA [id number] [address] [place] HLA B 27on 04-26-2022 HLA-B27 Negative Normal [facility] Comment on above: Result Comment: HLA- B*27 Negative B27 allele interpretation for all loci based on IMGT/HLA database version 3.44 This test was developed and its performance characteristics determined by [facility]. It has not been cleared or approved by the Food and Drug Administration. [facility] CLIA ID Number [id number] . This test was performed using PCR (Polymerase Chain Reaction)/SSOP (Sequence Specific Oligonucleotide Probes) technique. SBT (Sequence Based Typing) and/or SSP (Sequence Specific Primers) may be used as supplemental methods when necessary. Please contact [facility] Customer Service at if you have any questions. . Director of [facility] Laboratory Dr Abdiaziz Shook, PhD Performed By: #### C VDAGA #### [facility] [address] [place] [address] Dr. Christos Fallon 25-HYDROXY VIT D (D2+D3 [facility] ) LC/MS-MSon 04-23-2022 25-Hydroxy, Vitamin D 26 ng/mL Critically low [facility] Comment on above: Result Comment: Refe rence Range: All Ages: Target levels 30 - 100 Performed By: #### C MP, TSH, HSTROPN #### [facility] [address] [place] [address] Dr. Christos Fallon 25-Hydroxy, Vitamin D-2 <1.0 Normal [facility] Comment on above: Result Comment: This test was developed and its performance characteristics determined by [facility]. It has not been cleared or approved by the Food and Drug Administration. Performed By: #### C MP, TSH, HSTROPN #### [facility] [address] [place] [address] Dr. Christos Fallon 25-Hydroxy, Vitamin D-3 26 ng/mL Normal [facility] Comment on above: Result Comment: This test was developed and its performance characteristics determined by [facility]. It has not been cleared or approved by the Food and Drug Administration. Performed By: #### C MP, TSH, HSTROPN #### [facility] [address] [place] [address] Dr. Christos Fallon REVERSE T3on 04-20-2022 Reverse T3, Serum 11.2 ng/dL Normal 9.2-24.1 [facility] Comment on above: Result Comment: This test was developed and its performance characteristics determined by [facility]. It has not been cleared or approved by the Food and Drug Administration. Performed By: #### C VDAGA #### [facility] [address] [place] [address] Dr. Christos Fallon THYROID ANTIBODIESon 022 Thyroglobulin Antibody <1.0 Normal 0.0-0.9 [facility] Comment on above: Result Comment: Thyr oglobulin Antibody measured by Function Space Methodology Performed By: #### C VDAGA #### [facility] [address] [place] [address] Dr. Christos Fallon Thyroid Peroxidase (TPO) Ab 11 IU/mL Normal 0-34 [facility] Comment on above: Performed By: #### C VDAGA #### [facility] [address] [place] [address] Dr. Christos Fallon ANTISTREPTOLYSIN O AB (ASO)o n 04-16-2022 Antistreptolysin O Ab 21.8 IU/mL Normal 0.0-200.0 [facility] Comment on above: Performed By: #### C MP, TSH, HSTROPN #### [facility] [address] [place] [address] Dr. Christos Fallon T3, TOTAL (TRIIODOTHYRONINE) on 04-16-2022 T3, TOTAL 115 ng/dL Normal 71-180 [facility] Comment on above: Performed By: #### C MP, TSH, HSTROPN #### [facility] [address] [place] [address] Dr. Christos Fallon FREE T3on 04-14-2022 FREE T3 2.46 pg/mlL Normal 2.18-3.98 [facility] Comment on above: Performed By: #### C MP, TSH, HSTROPN #### [facility] [address] [place] [address] Dr. Christos Fallon FREE T4on 04-14-2022 Free T4 [Mass/Vol] 0.88 ng/dL Normal 0.76-1.46 [facility] Comment on above: Performed By: #### C VDAGA #### [facility] [address] [place] [address] Dr. Christos Fallon TSHon 04-14-2022 TSH 1.027 uIU/mL Normal 0.358-3.740 [facility] Comment on above: Performed By: #### C MP, TSH, HSTROPN #### [facility] [address] [place] [address] Dr. Christos Fallon CBC AUTO DIFFon 03-22-2022 BASO # 0.1 103/ul Normal 0.0-0.1 [facility] Comment on above: Performed By: #### C MP, TSH, HSTROPN #### [facility] [address] [place] [address] Dr. Christos Fallon Basophils/100 WBC (Bld) 0.7 % Normal 0.2-2.0 [facility] Comment on above: Performed By: #### C MP, TSH, HSTROPN #### [facility] [address] [place] [address] Dr. Christos Fallon EO # 0.3 103/ul Normal 0.0-0.7 [facility] Comment on above: Performed By: #### C MP, TSH, HSTROPN #### [facility] [address] [place] [address] Dr. Christos Fallon Eosinophils/100 WBC (Bld) 3.4 % Normal 0.9-7.0 [facility] Comment on above: Performed By: #### C MP, TSH, HSTROPN #### [facility] [address] [place] [address] Dr. Christos Fallon Erythrocyte distribution width (RBC) [Ratio] 12.5 % Normal 11.0-15.0 [facility] Comment on above: Performed By: #### C MP, TSH, HSTROPN #### [facility] [address] [place] [address] Dr. Christos Fallon Hematocrit (Bld) [Volume fraction] 41.3 % Normal 36.0-48.0 [facility] Comment on above: Performed By: #### C MP, TSH, HSTROPN #### [facility] [address] [place] [address] Dr. Christos Fallon Hemoglobin (Bld) [Mass/Vol] 14.2 g/dL Normal 12.0-16.0 [facility] Comment on above: Performed By: #### C MP, TSH, HSTROPN #### [facility] [address] [place] [address] Dr. Christos Fallon IG # 0.03 10e3/ul Normal 0.00-0.03 [facility] Comment on above: Performed By: #### C MP, TSH, HSTROPN #### [facility] [address] [place] [address] Dr. Christos Fallon IG % 0.4 % Normal 0.0-0.5 [facility] Comment on above: Performed By: #### C MP, TSH, HSTROPN #### [facility] [address] [place] [address] Dr. Christos Fallon LYMPH # 2.3 103/ul Normal 1.2-3.8 [facility] Comment on above: Performed By: #### C MP, TSH, HSTROPN #### [facility] [address] [place] [address] Dr. Christos Fallon Lymphocytes/100 WBC (Bld) 31.3 % Normal 20.5-60.0 [facility] Comment on above: Performed By: #### C MP, TSH, HSTROPN #### [facility] [address] [place] [address] Dr. Christos Fallon MANUAL DIFF REQ NO Normal [facility] Comment on above: Performed By: #### C MP, TSH, HSTROPN #### [facility] [address] [place] [address] Dr. Christos Fallon MCH (RBC) [Entitic mass] 34.8 pg Critically high 26.7-34.0 [facility] Comment on above: Performed By: #### C MP, TSH, HSTROPN #### [facility] [address] [place] [address] Dr. Christos Fallon MCHC (RBC) [Mass/Vol] 34.4 g/dL Normal 29.9-35.2 [facility] Comment on above: Performed By: #### C MP, TSH, HSTROPN #### [facility] [address] [place] [address] Dr. Christos Fallon MCV (RBC) [Entitic vol] 101.2 fL Critically high 81.0-99.0 [facility] Comment on above: Performed By: #### C MP, TSH, HSTROPN #### [facility] [address] [place] [address] Dr. Christos Fallon MONO # 0.9 103/ul Critically high 0.3-0.8 [facility] Comment on above: Performed By: #### C MP, TSH, HSTROPN #### [facility] [address] [place] [address] Dr. Christos Fallon Monocytes/100 WBC (Bld) 12.0 % Normal 1.7-12.0 [facility] Comment on above: Performed By: #### C MP, TSH, HSTROPN #### [facility] [address] [place] [address] Dr. Christos Fallon NEUT # 3.9 103/ul Normal 1.4-6.5 [facility] Comment on above: Performed By: #### C MP, TSH, HSTROPN #### [facility] [address] [place] [address] Dr. Christos Fallon Neutrophils/100 WBC (Bld) 52.2 % Normal 43.0-75.0 [facility] Comment on above: Performed By: #### C MP, TSH, HSTROPN #### [facility] [address] [place] [address] Dr. Christos Fallon Platelet mean volume (Bld) [Entitic vol] 9.7 fL Normal 9.5-13.5 [facility] Comment on above: Performed By: #### C MP, TSH, HSTROPN #### [facility] [address] [place] [address] Dr. Christos Fallon PLT 296 103/ul Normal 150-450 [facility] Comment on above: Performed By: #### C MP, TSH, HSTROPN #### [facility] [address] [place] [address] Dr. Christos Fallon RBC 4.08 106/ul Critically low 4.20-5.40 [facility] Comment on above: Performed By: #### C MP, TSH, HSTROPN #### [facility] [address] [place] [address] Dr. Christos Fallon WBC 7.4 103/ul Normal 4.0-11.0 [facility] Comment on above: Performed By: #### C MP, TSH, HSTROPN #### [facility] [address] [place] [address] HEAD WO CONon [...] PAL WETZEL Date: 2022-03-22 17:41 Normal [facility] ER URINE PROFILEon 2 Bilirubin Ql (U) Negative Normal NEGATIVE [facility] Comment on above: Performed By: #### C VDAGA #### [facility] [address] [place] [address] Dr. Christos Fallon Clarity (U) CLOUDY Abnormal CLEAR [facility] Comment on above: Performed By: #### C VDAGA #### [facility] [address] [place] [address] Dr. Christos Fallon Color (U) LT. YELLOW Normal YELLOW [facility] Comment on above: Performed By: #### C VDAGA #### [facility] [address] [place] [address] Dr. Christos Fallon ERUAHD A micrscopic examination will be performed if indicated. Normal [facility] Comment on above: Performed By: #### C VDAGA #### [facility] [address] [place] [address] Dr. Christos Fallon Glucose Ql (U) Negative Normal NEGATIVE [facility] Comment on above: Performed By: #### C VDAGA #### [facility] [address] [place] [address] Dr. Christos Fallon Hemoglobin Ql (U) Negative Normal NEGATIVE [facility] Comment on above: Performed By: #### C VDAGA #### [facility] [address] [place] [address] Dr. Christos Fallon Ketones Ql (U) Negative Normal NEGATIVE [facility] Comment on above: Performed By: #### C VDAGA #### [facility] [address] [place] [address] Dr. Christos Fallon LEUKOCYTES Negative Normal NEGATIVE [facility] Comment on above: Performed By: #### C VDAGA #### [facility] [address] [place] [address] Dr. Christos Fallon Nitrite Ql (U) Negative Normal NEGATIVE [facility] Comment on above: Performed By: #### C VDAGA #### [facility] [address] [place] [address] Dr. Christos Fallon pH (U) 6.0 [pH] Normal 5-9 [facility] Comment on above: Performed By: #### C VDAGA #### [facility] [address] [place] [address] Dr. Christos Fallon SPEC GRAVITY 1.010 Normal 1.005-<=1.02 5 [facility] Comment on above: Performed By: #### C VDAGA #### [facility] [address] [place] [address] Dr. Christos Fallon UA PROTEIN Negative Normal NEGATIVE/ TRACE [facility] Comment on above: Performed By: #### C VDAGA #### [facility] [address] [place] [address] Dr. Christos Fallon UR MICRO IND NOT INDICATED Normal [facility] Comment on above: Performed By: #### C VDAGA #### [facility] [address] [place] [address] Dr. Christos Fallon Urobilinogen Qn (U) 0.2 {Peyman'U}/dL Normal 0.2 - 1. 0 [facility] Comment on above: Performed By: #### C VDAGA #### [facility] [address] [place] [address] Dr. Christos Fallon PROF 14(COMP METB)on 022 Albumin [Mass/Vol] 3.6 g/dL Normal 3.4-5.0 [facility] Comment on above: Performed By: #### C RAY HSTROPN, TSH #### [facility] [address] [place] [address] Dr. Christos Fallon Albumin/Globulin [Mass ratio] 0.9 {ratio} Normal [facility] Comment on above: Performed By: #### C MP HSTROPN, TSH #### [facility] [address] [place] [address] Dr. Christos Fallon ALP [Catalytic activity/Vol] 83 U/L Normal 46-116 [facility] Comment on above: Performed By: #### C RAY HSTROPN, TSH #### [facility] [address] [place] [address] Dr. Christos Fallon ALT [Catalytic activity/Vol] 32 U/L Normal 14-59 [facility] Comment on above: Performed By: #### C MP, HSTROPN, TSH #### [facility] [address] [place] [address] Dr. Christos Fallon Anion gap [Moles/Vol] 15.4 mmol/L Normal [facility] Comment on above: Performed By: #### C MP, HSTROPN, TSH #### [facility] [address] [place] [address] Dr. Christos Fallon AST [Catalytic activity/Vol] 15 U/L Normal 15-37 [facility] Comment on above: Performed By: #### C MP, HSTROPN, TSH #### [facility] [address] [place], [place] [id number] Dr. Christos Fallon Bilirubin [Mass/Vol] 0.3 mg/dL Normal 0.2-1.0 [facility] Comment on above: Performed By: #### C MP, HSTROPN, TSH #### [facility] [address] [place] [address] Dr. Christos Fallon Calcium [Mass/Vol] 8.9 mg/dL Normal 8.5-10.1 [facility] Comment on above: Performed By: #### C MP, HSTROPN, TSH #### [facility] [address] [place] [address] Dr. Christos Fallon Chloride [Moles/Vol] 102 mmol/L Normal 98-107 [facility] Comment on above: Performed By: #### C MP, HSTROPN, TSH #### [facility] [address] [place] [address] Dr. Christos Fallon CO2 [Moles/Vol] 22.7 mmol/L Normal 21.0-32.0 [facility] Comment on above: Performed By: #### C MP, HSTROPN, TSH #### [facility] [address] [place] [address] Dr. Christos Fallon Creatinine [Mass/Vol] 0.97 mg/dL Normal 0.55-1.02 [facility] Comment on above: Performed By: #### C MP, HSTROPN, TSH #### [facility] [address] [place] [address] Dr. Christos Fallon EGFR-AF FIJIAN >60 Normal >=60 [facility] Comment on above: Performed By: #### C MP, HSTROPN, TSH #### [facility] [address] [place] [address] Dr. Christos Fallon EGFR-NON AF FIJIAN >60 Normal >=60 [facility] Comment on above: Performed By: #### C MP, HSTROPN, TSH #### [facility] [address] [place] [address] Dr. Christos Fallon Globulin (S) [Mass/Vol] 3.8 g/dL Normal [facility] Comment on above: Performed By: #### C MP, HSTROPN, TSH #### [facility] [address] [address] [address] Christos Fallon Glucose [Mass/Vol] 104 mg/dL Normal 74-106 [facility] Comment on above: Performed By: #### C MP, HSTROPN, TSH #### [facility] [address] [address] [address] Christos Fallon Potassium [Moles/Vol] 4.1 mmol/L Normal 3.5-5.1 [facility] Comment on above: Performed By: #### C MP, HSTROPN, TSH #### [facility] [address] [place] [address] Dr. Christos Fallon Protein [Mass/Vol] 7.4 g/dL Normal 6.4-8.2 [facility] Comment on above: Performed By: #### C MP, HSTROPN, TSH #### [facility] [address] [address] [address] Christos Fallon Sodium [Moles/Vol] 136 mmol/L Normal 136-145 [facility] Comment on above: Performed By: #### C MP, HSTROPN, TSH #### [facility] [address] [address] [address] Christos Fallon Urea nitrogen [Mass/Vol] 17.0 mg/dL Normal 7.0-18.0 [facility] Comment on above: Performed By: #### C MP, HSTROPN, TSH #### [facility] [address] [place] [address] Dr. Christos Fallon Urea nitrogen/Creatinine [Mass ratio] 17.5 mg/mg Normal [facility] Comment on above: Performed By: #### C MP, HSTROPN, TSH #### [facility] [address] [place] [address] Dr. Christos Fallon TROPONIN, HIGH SENSITIVITYon 03-22-2022 HSTROP <4.0 Normal 4.0-51.3 [facility] Comment on above: Result Comment: CUT- OFF POINTS HAVE BEEN ESTABLISHED BASED ON THE FOURTH UNIVERSAL DEFINITIONS OF MYOCARDIAL INFARCTION. THE UPPER REFERENCE LIMIT (URL) OF TROPONIN, DEFINED THE 99TH PERCENTILE OF cTnI DISTRIBUTION IN A REFERENCE POPULATION, HAS BEEN CONFIRMED THE DECISION THRESHOLD FOR [place] DIAGNOSIS. Performed By: #### C ERIC BELL, TSH #### [facility] [address] [place], [place] [address] Dr. Christos Fallon TSHon 03-22-2022 TSH 0.854 uIU/mL Normal 0.358-3.740 [facility] Comment on above: Performed By: #### C RAY HSTRKEELYN, TSH #### [facility] [address] [address] [address] Christos Fallon ASYMPTOMATIC COVID-19 ANTIGE Non 03-03-2022 EUA Statement SEE BELOW Normal [facility] Comment on above: Result Comment: [...] sooner. Performed By: #### C VDAGA #### [facility] [address] [place] [address] Dr. Christos Fallon SARS-CoV-2 (COVID-19) RNA LEROY+probe Ql (Unsp spec) Positive Critically abnormal NEGATIVE [facility] Comment on above: Result Comment: SARS -CoV-2 antigen present; does not rule out coinfection with other pathogens. Performed By: #### C VDAGA #### [facility] [address] [address] [address] Christos Fallon Covid-19 PCR ([facility])on 02-06 SARS-CoV-2 (COVID-19) RNA LEROY+probe Ql (Unsp spec) Detected Critically abnormal NOT DETECTED [facility] Comment on above: Result Comment: This test is not yet approved or cleared by the [place] FDA. When there are no FDA-approved or cleared tests available, and other criteria are met, FDA can make tests available under an emergency access mechanism called an Emergency Use Authorization (EUA). The EUA for this test is supported by the [place] of Health and Human Service's declaration that [...] By: #### C MP, TSH, HSTROPN #### [facility] [address] [place] [address] Dr. Chrsitos Fallon CRPon 11-25-2021 CRP [Mass/Vol] mg/L Normal <=1.0 [facility] Comment on above: Performed By: #### C MP, TSH, HSTROPN #### [facility] [address] [place] [address] Dr. Christos Fallon VIT B12 AND FOLATEon 022 Cobalamin (Vitamin B12) [Mass/Vol] 329.0 pg/mL Normal 239.0-931.0 [facility] Comment on above: Performed By: #### C MP, TSH, HSTROPN #### [facility] [address] [place] [address] Dr. Christos Fallon FOLATE 8.50 ng/mL Normal >=2.76 [facility] Comment on above: Performed By: #### C MP, TSH, HSTROPN #### [facility] [address] [place] [address] Dr. Christos Fallon CBC AUTO DIFFon 11-19-2021 BASO # 0.1 103/ul Normal 0.0-0.1 [facility] Comment on above: Performed By: #### C BC #### [facility] [address] [address] [address] Christos Fallon Basophils/100 WBC (Bld) 0.8 % Normal 0.2-2.0 [facility] Comment on above: Performed By: #### C BC #### [facility] [address] [address] [address] Christos Fallon EO # 0.3 103/ul Normal 0.0-0.7 [facility] Comment on above: Performed By: #### C BC #### [facility] [address] [address] [address] Christos Fallon Eosinophils/100 WBC (Bld) 4.8 % Normal 0.9-7.0 [facility] Comment on above: Performed By: #### C BC #### [facility] [address] [place] [address] Dr. Christos Fallon Erythrocyte distribution width (RBC) [Ratio] 12.2 % Normal 11.0-15.0 [facility] Comment on above: Performed By: #### C BC #### [facility] [address] [place] [address] Dr. Christos Fallon Hematocrit (Bld) [Volume fraction] 41.9 % Normal 36.0-48.0 [facility] Comment on above: Performed By: #### C BC #### [facility] [address] [place] [address] Dr. Christos Fallon Hemoglobin (Bld) [Mass/Vol] 14.2 g/dL Normal 12.0-16.0 [facility] Comment on above: Performed By: #### C BC #### [facility] [address] [place] [address] Dr. Christos Fallon IG # 0.03 10e3/ul Normal 0.00-0.03 [facility] Comment on above: Performed By: #### C BC #### [facility] [address] [place] [address] Dr. Christos Fallon IG % 0.5 % Normal 0.0-0.5 [facility] Comment on above: Performed By: #### C BC #### [facility] [address] [address] [address] Christos Fallon LYMPH # 1.5 103/ul Normal 1.2-3.8 [facility] Comment on above: Performed By: #### C BC #### [facility] [address] [place] [address] Dr. Christos Fallon Lymphocytes/100 WBC (Bld) 24.6 % Normal 20.5-60.0 [facility] Comment on above: Performed By: #### C BC #### [facility] [address] [place] [address] Dr. Christos Fallon MANUAL DIFF REQ NO Normal [facility] Comment on above: Performed By: #### C BC #### [facility] [address] [place] [address] Dr. Christos Fallon MCH (RBC) [Entitic mass] 34.3 pg Critically high 26.7-34.0 [facility] Comment on above: Performed By: #### C BC #### [facility] [address] [place] [address] Dr. Christos Fallon MCHC (RBC) [Mass/Vol] 33.9 g/dL Normal 29.9-35.2 [facility] Comment on above: Performed By: #### C BC #### [facility] [address] [place] [address] Dr. Christos Fallon MCV (RBC) [Entitic vol] 101.2 fL Critically high 81.0-99.0 [facility] Comment on above: Performed By: #### C BC #### [facility] [address] [place] [address] Dr. Christos Fallon MONO # 0.5 103/ul Normal 0.3-0.8 [facility] Comment on above: Performed By: #### C BC #### [facility] [address] [place] [address] Dr. Christos Fallon Monocytes/100 WBC (Bld) 7.2 % Normal 1.7-12.0 [facility] Comment on above: Performed By: #### C BC #### [facility] [address] [place], [place] [id number] Dr. Christos Fallon NEUT # 3.9 103/ul Normal 1.4-6.5 [facility] Comment on above: Performed By: #### C BC #### [facility] [address] [place] [address] Dr. Christos Fallon Neutrophils/100 WBC (Bld) 62.1 % Normal 43.0-75.0 [facility] Comment on above: Performed By: #### C BC #### [facility] [address] [place] [address] Dr. Christos Fallon Platelet mean volume (Bld) [Entitic vol] 9.1 fL Critically low 9.5-13.5 [facility] Comment on above: Performed By: #### C BC #### [facility] [address] [place] [address] Dr. Christos Fallon PLT 301 103/ul Normal 150-450 [facility] Comment on above: Performed By: #### C BC #### [facility] [address] [place] [address] Dr. Christos Fallon RBC 4.14 106/ul Critically low 4.20-5.40 [facility] Comment on above: Performed By: #### C BC #### [facility] [address] [place] [address] Dr. Christos Fallon WBC 6.3 103/ul Normal 4.0-11.0 [facility] Comment on above: Performed By: #### C BC #### [facility] [address] [place] [address] Dr. Christos Fallon FREE T3on 11-19-2021 FREE T3 2.72 pg/mlL Critically low 2.77-5.27 [facility] Comment on above: Performed By: #### C MP, TSH, HSTROPN #### [facility] [address] [place] [address] Dr. Christos Fallon FREE T4on 11-19-2021 Free T4 [Mass/Vol] 1.09 ng/dL Normal 0.78-2.19 [facility] Comment on above: Performed By: #### C MP, TSH, HSTROPN #### [facility] [address] [address] [address] Christos Fallon GLYCOHEMOGLOBIN A1Con 2021 ADA RECOMMENDATION ADA THERAPEUTIC TARG ET 6.0 - 7.0 ACTION SUGGESTED > 7.0 Normal [facility] Comment on above: Performed By: #### A 1C #### [facility] [address] [address] [address] Christos Fallon Glucose [Mass/Vol] 105 mg/dL Normal [facility] Comment on above: Performed By: #### A 1C #### [facility] [address] [address] [address] Christos Fallon HbA1c (Bld) [Mass fraction] 5.3 % Normal <=6.0 [facility] Comment on above: Performed By: #### A 1C #### [facility] [address] [place] [address] Dr. Christos Fallon LIPID PROFILEon 11-19-2021 CHOL-HDL RATIO NORM SEE BELOW Normal [facility] Comment on above: Result Comment: 3.3 - 4.4 LOW RISK 4.4 - 7.1 AVERAGE RISK 7.1 - 11.0 MODERATE RISK >11.0 HIGH RISK Performed By: #### C MP, TSH, HSTROPN #### [facility] [address] [place] [address] Dr. Christos Fallon Cholesterol [Mass/Vol] 232 mg/dL Critically high <=200 [facility] Comment on above: Performed By: #### C MP, TSH, HSTROPN #### [facility] [address] [place] [address] Dr. Christos Fallon Cholesterol in HDL [Mass/Vol] 60 mg/dL Normal 40-60 [facility] Comment on above: Performed By: #### C MP, TSH, HSTROPN #### [facility] [address] [place] [address] Dr. Christos Fallon Cholesterol in LDL [Mass/Vol] 134.6 mg/dL Normal [facility] Comment on above: Performed By: #### C MP, TSH, HSTROPN #### [facility] [address] [address] [address] Christos Fallon Cholesterol.total/Cho lesterol in HDL [Mass ratio] 3.9 {ratio} Normal [facility] Comment on above: Performed By: #### C MP, TSH, HSTROPN #### [facility] [address] [address] [address] Christos Fallon HDL NORMAL > or = 60 mg/dl - LO W CARDIOVASCULAR RISK <40 mg/dl - HIGH CARDIOVASCULAR RISK Normal [facility] Comment on above: Performed By: #### C MP, TSH, HSTROPN #### [facility] [address] [address] [address] Christos Fallon LDL CALC NORMAL SEE BELOW Normal [facility] Comment on above: Result Comment: <100 mg/dl OPTIMAL 100 - 129 mg/dl NEAR OR ABOVE OPTIMAL 130 - 159 mg/dl BORDERLINE HIGH 160 - 189 mg/dl HIGH >190 mg/dl VERY HIGH Performed By: #### C MP, TSH, HSTROPN #### [facility] [address] [address] [address] Christos Fallon Triglyceride [Mass/Vol] 187 mg/dL Critically high <=150 [facility] Comment on above: Performed By: #### C MP, TSH, HSTROPN #### [facility] [address] [address] [address] Christos Fallon VLDL CALC 37.4 mg/dL Normal [facility] Comment on above: Performed By: #### C MP, TSH, HSTROPN #### [facility] [address] [address] [address] Christos Fallon PROF 14(COMP METB)on 022 Albumin [Mass/Vol] 3.8 g/dL Normal 3.4-5.0 [facility] Comment on above: Performed By: #### C MP, TSH, HSTROPN #### [facility] [address] [address] [address] Christos Fallon Albumin/Globulin [Mass ratio] 1.1 {ratio} Normal [facility] Comment on above: Performed By: #### C MP, TSH, HSTROPN #### [facility] [address] [place] [address] Dr. Christos Fallon ALP [Catalytic activity/Vol] 77 U/L Normal 46-116 [facility] Comment on above: Performed By: #### C MP, TSH, HSTROPN #### [facility] [address] [place] [address] Dr. Christos Fallon ALT [Catalytic activity/Vol] 34 U/L Normal 14-59 [facility] Comment on above: Performed By: #### C MP, TSH, HSTROPN #### [facility] [address] [place] [address] Dr. Christos Fallon Anion gap [Moles/Vol] 11.5 mmol/L Normal [facility] Comment on above: Performed By: #### C MP, TSH, HSTROPN #### [facility] [address] [place] [address] Dr. Christos Fallon AST [Catalytic activity/Vol] 21 U/L Normal 15-37 [facility] Comment on above: Performed By: #### C MP, TSH, HSTROPN #### [facility] [address] [place] [address] Dr. Christos Fallon Bilirubin [Mass/Vol] 0.7 mg/dL Normal 0.2-1.3 [facility] Comment on above: Performed By: #### C MP, TSH, HSTROPN #### [facility] [address] [place] [address] Dr. Christos Fallon Calcium [Mass/Vol] 8.8 mg/dL Normal 8.5-10.1 [facility] Comment on above: Performed By: #### C MP, TSH, HSTROPN #### [facility] [address] [place] [address] Dr. Christos Fallon Chloride [Moles/Vol] 104 mmol/L Normal 98-107 [facility] Comment on above: Performed By: #### C MP, TSH, HSTROPN #### [facility] [address] [place] [address] Dr. Christos Fallon CO2 [Moles/Vol] 28.6 mmol/L Normal 22.0-30.0 [facility] Comment on above: Performed By: #### C MP, TSH, HSTROPN #### [facility] [address] [address] [address] Christos Fallon Creatinine [Mass/Vol] 0.88 mg/dL Normal 0.52-1.04 [facility] Comment on above: Performed By: #### C MP, TSH, HSTROPN #### [facility] [address] [address] [address] Christos Fallon EGFR-AF FIJIAN >60 Normal >=60 [facility] Comment on above: Performed By: #### C MP, TSH, HSTROPN #### [facility] [address] [place] [address] Dr. Christos Fallon EGFR-NON AF FIJIAN >60 Normal >=60 [facility] Comment on above: Performed By: #### C MP, TSH, HSTROPN #### [facility] [address] [place] [address] Dr. Christos Fallon Globulin (S) [Mass/Vol] 3.5 g/dL Normal [facility] Comment on above: Performed By: #### C MP, TSH, HSTROPN #### [facility] [facility] [address] [place] [address] Dr. Christos Fallon Glucose [Mass/Vol] 101 mg/dL Normal 74-106 [facility] Comment on above: Performed By: #### C MP, TSH, HSTROPN #### [facility] [address] [address] [address] Christos Fallon Potassium [Moles/Vol] 4.1 mmol/L Normal 3.4-5.0 [facility] Comment on above: Performed By: #### C MP, TSH, HSTROPN #### [facility] [address] [place] [address] Dr. Christos Fallon Protein [Mass/Vol] 7.3 g/dL Normal 6.1-8.2 [facility] Comment on above: Performed By: #### C MP, TSH, HSTROPN #### [facility] [address] [address] [address] Christos Fallon Sodium [Moles/Vol] 140 mmol/L Normal 137-145 [facility] Comment on above: Performed By: #### C MP, TSH, HSTROPN #### [facility] [address] [place] [address] Dr. Christos Fallon Urea nitrogen [Mass/Vol] 11.0 mg/dL Normal 7.0-18.0 [facility] Comment on above: Performed By: #### C MP, TSH, HSTROPN #### [facility] [address] [place] [address] Dr. Christos Fallon Urea nitrogen/Creatinine [Mass ratio] 12.5 mg/mg Normal [facility] Comment on above: Performed By: #### C MP, TSH, HSTROPN #### [facility] [address] [place] [address] Dr. Christos Fallon TSHon 11-19-2021 TSH 0.774 uIU/mL Normal 0.470-4.680 [facility] Comment on above: Performed By: #### C MP, TSH, HSTROPN #### [facility] [address] [place] [address] Dr. Christos Fallon TSH RANGE SEE BELOW Normal [facility] Comment on above: Result Comment: <0.3 4 UIU/ml HYPERTHYROID 0.34-5.60 UIU/ml EUTHYROID >5.60 UIU/ml HYPOTHYROID Performed By: #### C MP, TSH, HSTROPN #### [facility] [address] [place] [address] Dr. Christos Fallon XR TSPINE 2 VIEWSon [...] TAMIE GUILLERMO Date: 2021-11-19 12:49 Normal [facility] Cardiovascular Lab Reporton 11-17-2021 Cardiovascular Lab Report [facility] Patient Name: Christina [facility] MR #: [id number] Physician: Jonny Fowler M.D. Department of Service Date: 11/17/2021 Medicine Birthdate: 1980 Division of Room #: CC Cardiology Adult Cardiovascular Services [facility] [address] [facility]. [place] [address] Cardiovascular Laboratory Report PROCEDURE: Implantable loop recorder [...] subcutaneous pocket, into which was deployed a BiotroniEverwise BioMonitor 3 implantable loop recorder. Via off [...] A/Jonny Fowler M.D. Date Trans: 11/17/2021 12:41 P/toñito [id number] cc: Mert Lama M.D. 1 [facility] [id number] [facility] Covid-19 PCR (CVDTB)on SARS-CoV-2 (COVID-19) RNA LEROY+probe Ql (Unsp spec) Not detected Normal NOT DETECTED [facility] Comment on above: Result Comment: This test is not yet approved or cleared by the [place] FDA. When there are no FDA-approved or cleared tests available, and other criteria are met, FDA can make tests available under an emergency access mechanism called an Emergency Use Authorization (EUA). The EUA for this test is supported by the [employer] of Health and Human Service's (HHS's) declaration [...] By: #### C MP, TSH, HSTROPN #### [facility] [address] [place] [address] Dr. Christos Fallon Covid-19 PCR (CVDTB)on SARS-CoV-2 (COVID-19) RNA LEROY+probe Ql (Unsp spec) Not detected Normal NOT DETECTED [facility] Comment on above: Result Comment: When [...] for this test is supported by the [place] of Health and Human Service's declaration that [...] used). Performed By: #### C [facility] #### [facility] [address] [place] [address] Dr. Christos Fallon Cardiovascular Lab Reporton 06-17-2021 Cardiovascular Lab Report [facility] Patient Name: Christina [facility] MR #: [id number] Physician: Vishal Rogers MD Department of Service Date: 06/17/2021 Medicine Birthdate: 1980 Division of Room #: CC Cardiology Adult Cardiovascular Services [place] [address] Cardiovascular Laboratory Report COMPREHENSIVE EP STUDY AND [...] same (more content not included)... Normal [facility] FEMUR LEFT 2 VWSon 1 FEMUR LEFT [address] [facility] Department of Radiology [address] [place] [phone] ======== Patient Name: KAILA VASQUEZ : [...] 2 VWS ======== FEMUR LEFT 2 VWS HISTORY: Postoperative [...] report. Electronically signed: Gelacio Pfeiffer. Transcribed by: [email or web address], User Resident: TAVON BELCHER Electronically Signed by: GELACIO PFEIFFER @ 01/15/2021 12:03 PM I personally read this/these film(s) with this resident Normal [facility] Comment on above: Order Comment: evalu ate Operative Reporton Operative Report MR#: [id number] [facility] Pt. Name: Kaila Vasquez Room #: 0C Discharge 12/05/2020 Date: Birthdate: 1980 OPERATIVE REPORT DATE OF SURGERY: 12/05/2020 SURGEON: Pamella Brennan M.D. PREOPERATIVE DIAGNOSIS: Left distal femur osteochondroma. POSTOPERATIVE DIAGNOSIS: Left distal femur osteochondroma. PROCEDURE PERFORMED: Left distal femur osteochondroma excision. TENNIS BALL COVER CEMENTER: Alaina Edouard M.D. ANESTHESIA: General endotracheal. SPECIMENS: [...] i (more content not included)... Normal [facility] FEMUR LEFT 2 [facility] 1 FEMUR LEFT 2 [facility] Department of Radiology [address] [place] [phone] ======== Patient Name: KAILA VASQUEZ : [...] purposes. Electronically signed: Ching Garcia. Transcribed by: [email or web address], User Resident: Electronically Signed by: CHING GARCIA @ 12/05/2020 11:54 AM Normal [facility] Comment on above: Order Comment: LEFT DISTAL FEMUR OSTEOCHONDROMA EXCISION POC GLUCOSE LABon 12-05-2020 Glucose [Mass/Vol] 108 mg/dL High 70-[address] [facility] Comment on above: Performed By: #### 8 5499 ####[facility] [place] [address], [facility] *MRSA/MSSA DNA NASALon 11-28 *MRSA/MSSA DNA NASAL Clinical Report: (D ) Specimen: NASAL SWAB Collected: 11/28/2020 13:22 Status: Final Last Updated: 2020 13:05 MSSA DNA (Final) Negative MRSA DNA (Final) Negative Normal [facility] Comment on above: Performed By: #### 3 1595 ####[facility] [place] [address], [facility] APTTon 11-28-2020 aPTT Coag (Bld) [Time] 29.1 s Normal 25.0-35.[address] [facility] Comment on above: Result Comment: ALL [...] THIS PURPOSE. Performed By: #### 5 7307, 36032 #### [facility] [address] [place] [address], [facility] BASIC METABOLIC PANELon 11-07 Calcium [Mass/Vol] 9.5 mg/dL Normal 8.6-10.[address] [facility] Comment on above: Performed By: #### 0 0071 #### [facility] [address] [place] [address], [facility] Chloride [Moles/Vol] 104 mmol/L Normal 98-[address] [facility] Comment on above: Performed By: #### 0 0071 #### [facility] [address] [place] [address], [facility] CO2 [Moles/Vol] 28 mmol/L Normal 21-[address] [facility] Comment on above: Performed By: #### 0 0071 #### [facility] [address] [place] [address], [facility] Creatinine [Mass/Vol] 0.90 mg/dL Normal 0.60-1.[address] [facility] Comment on above: Performed By: #### 0 0071 #### [facility] [address] [place] [id number], [facility] GFR/1.73 sq M.predicted among blacks MDRD (S/P/Bld) [Vol rate/Area] mL/min/{1.73_m2} Normal >[address] [facility] Comment on above: Performed By: #### 0 0071 #### [facility] [address] [place] [address], [facility] GFR/1.73 sq M.predicted among non-blacks MDRD (S/P/Bld) [Vol rate/Area] mL/min/{1.73_m2} Normal >[address] [facility] Comment on above: Performed By: #### 0 0071 #### [facility] [address] [place] [address], [facility] Glucose [Mass/Vol] 132 mg/dL High 70-[address] [facility] Comment on above: Performed By: #### 0 0071 #### [facility] [address] [place] [address], [facility] Potassium [Moles/Vol] 3.8 mmol/L Normal 3.5-5.[address] [facility] Comment on above: Performed By: #### 0 0071 #### [facility] [address] [place] [address], [facility] Sodium [Moles/Vol] 138 mmol/L Normal 136-[address] [facility] Comment on above: Performed By: #### 0 0071 #### [facility] [address] [facility] [address], [facility] Urea nitrogen [Mass/Vol] 9 mg/dL Normal 7-[address] [facility] Comment on above: Performed By: #### 0 0071 #### [facility] [address] [place] [address], [facility] CBC W/DIFFon 11-28-2020 ABS IMM GRANS 0.0 10*3/uL Normal 0.0-0.[address] [facility] Comment on above: Performed By: #### 5 0103 ####[facility] [place] [address], [facility] ABS NEUTROPHILS 7.2 10*3/uL Normal 1.6-7.[address] [facility] Comment on above: Performed By: #### 5 0103 ####[facility] [place] [address], [facility] Basophils (Bld) [#/Vol] 0.1 10*3/uL Normal 0.0-0.[address] [facility] Comment on above: Performed By: #### 5 0103 ####[facility] [place] [address], [facility] Basophils/100 WBC (Bld) 0.6 % Normal 0.0-1.[address] [facility] Comment on above: Performed By: #### 5 0103 ####[facility] Eosinophils (Bld) [#/Vol] 0.3 10*3/uL Normal 0.0-0.[address] [facility] Comment on above: Performed By: #### 5 0103 ####[facility] Eosinophils/100 WBC (Bld) 2.6 % Normal 0.0-6.[address] [facility] Comment on above: Performed By: #### 5 0103 ####[facility] Erythrocyte distribution width (RBC) [Ratio] 12.6 % Normal 11.5-15.[address] [facility] Comment on above: Performed By: #### 5 0103 ####[facility] Hematocrit (Bld) [Volume fraction] 42.6 % Normal 36.0-45.[address] [facility] Comment on above: Performed By: #### 5 0103 ####[facility] Hemoglobin (Bld) [Mass/Vol] 14.4 g/dL Normal 12.0-15.[address] [facility] Comment on above: Performed By: #### 5 3 ####[facility] IMMATURE GRANS 0.3 % Normal 0.0-1.[address] [facility] Comment on above: Performed By: #### 5 3 ####[facility] Lymphocytes (Bld) [#/Vol] 2.1 10*3/uL Normal 1.2-4.[address] [facility] Comment on above: Performed By: #### 102 ####[place] [id number] [address] Lymphocytes/100 WBC (Bld) 20.2 % Normal 20.0-45.[address] [facility] Comment on above: Performed By: #### 5 3 ####[address] MCH (RBC) [Entitic mass] 33.6 pg High 27.0-33.[address] [facility] Comment on above: Performed By: #### 5 3 ####[facility] [place] [address] MCHC (RBC) [Mass/Vol] 33.8 g/dL Normal 32.0-35.[address] [facility] Comment on above: Performed By: #### 5 3 ####[address] MCV (RBC) [Entitic vol] 99.5 fL High 82.0-98.[address] [facility] Comment on above: Performed By: #### 5 3 ####[facility] [place] [address], [facility] Monocytes (Bld) [#/Vol] 0.7 10*3/uL Normal 0.1-1.[address] [facility] Comment on above: Performed By: #### 5 3 ####[facility] [place] [address], [facility] MONOS 6.4 % Normal 5.0-12.[address] [facility] Comment on above: Performed By: #### 5 102 ####[facility] [place] [address], [facility] Neutrophils/100 WBC (Bld) 69.9 % Normal 40.0-72.[address] [facility] Comment on above: Performed By: #### 102 ####[facility] [place] [address], [facility] Nucleated RBC/100 WBC (Bld) [Ratio] 0 % Normal 0-[address] [facility] Comment on above: Performed By: #### 102 ####[facility] [place] [address], [facility] PLAT CNT 346 10*3/uL Normal 150-[address] [facility] Comment on above: Performed By: #### 102 ####[facility] [place] [address], [facility] RBC (Bld) [#/Vol] 4.28 10*6/uL Normal 3.80-5.[address] [facility] Comment on above: Performed By: #### 5 3 ####[facility] [place] [address], [facility] WBC (Bld) [#/Vol] 10.24 10*3/uL Normal 4.00-10.[address] [facility] Comment on above: Performed By: #### 5 3 ####[facility] PROTHROMBIN TIMEon INR Coag (PPP) [Relative time] 0.99 {INR} Normal 0.91-1.[address] [facility] Comment on above: Result Comment: ACCC [...] CHEST 1995;[id number]. Performed By: #### 5 7307, 41197 #### [facility] [address] [employer] [facility] [address], [facility] PT Coag (PPP) [Time] 13.1 s Normal 12.3-14.[address] [facility] Comment on above: Result Comment: ALL RESULTS MUST BE INTERPRETED WITH RESPECT TO BLOOD DRAWING ARTIFACT OR DILUTION ERROR OF ANTICOAGULANT AT THE TIME OF SAMPLING. Performed By: #### 5 7307, 42468 #### [facility] [address] [place] [address], [facility] TYPE AND CROSSMATCHon 2020 ABO INTERPRETATION O Normal [facility] Comment on above: Performed By: #### 6 2594 #### [facility] [address] [place] [address], [facility] RH INTERPRETATION Positive Normal [facility] Comment on above: Performed By: #### 6 2594 #### [facility] [address] [place] [address], [facility] URINALYSISon 11-28-2020 Appearance (U) CLEAR Normal CLEAR [facility] Comment on above: Performed By: #### 1 0008 #### [facility] [address] [place] [address], [place] Bilirubin Ql (U) Negative Normal NEGATIVE [facility] Comment on above: Performed By: #### 1 0008 #### [facility] [address] [place] [address], [place] Color (U) YELLOW Normal YELLOW [facility] Comment on above: Performed By: #### 1 0008 #### [facility] [address] [place] [address], [place] Glucose Ql (U) Negative Normal NEGATIVE [facility] Comment on above: Performed By: #### 1 0008 #### [facility] [address] [place] [address], [place] Hemoglobin Ql (U) Negative Normal NEGATIVE [facility] Comment on above: Performed By: #### 1 0008 #### [facility] [address] [place] [address], [place] KETONE Negative Normal NEGATIVE [facility] Comment on above: Performed By: #### 1 0008 #### [facility] [address] [place] [address], [place] LEUK JORDAN Negative Normal NEGATIVE [facility] Comment on above: Performed By: #### 1 0008 #### [facility] [address] [place] [address], [place] MICRO NOT DONE Normal [facility] Comment on above: Result Comment: Micr oscopics not performed on urines with negative chemical reactions unless requested in original order Performed By: #### 1 0008 #### [facility] [address] [place] [address], [facility] Nitrite Ql (U) Negative Normal NEGATIVE [facility] Comment on above: Performed By: #### 1 0008 #### [facility] [address] [place] [address], [facility] pH (U) 6.0 [pH] Normal 5.0-8.[address] [facility] Comment on above: Performed By: #### 1 0008 #### [facility] [address] [facility] [place] [address], [facility] Protein Ql (U) Negative Normal NEGATIVE [facility] Comment on above: Performed By: #### 1 0008 #### [facility] [address] [place] [address], [facility] SPEC GRAV 1.018 Normal 1.015-1.[address] [facility] Comment on above: Performed By: #### 1 0008 #### [facility] [address] [place], [place] [address] Vital Signs Date Time Vital Sign Value Performing Clinician Faci lity 08-24-2022 13:44-0500 Body height 162.6 cm Janell Sy MD Work Phone: [facility] 08-24-2022 13:44-0500 Body weight 112.95 kg Janell Sy MD Work Phone: [facility] 08-24-2022 13:44-0500 Diastolic blood pressure 73 mm[Hg] Janell Sy MD Work Phone: [facility] 08-24-2022 13:44-0500 Heart rate 88 /min Janell Sy MD Work Phone: [facility] 08-24-2022 13:44-0500 SaO2% (BldA) [Mass fraction] 98 % Janell Sy MD Work Phone: [facility] 08-24-2022 13:44-0500 Systolic blood pressure 112 mm[Hg] Janell Sy MD Work Phone: [facility] 08-05-2022 10:00-0500 Diastolic blood pressure 88 mm[Hg] Carmen Seese PT Work Phone: [facility] 08-05-2022 10:00-0500 Heart rate 78 /min Carmen Seese PT Work Phone: [facility] 08-05-2022 10:00-0500 Systolic blood pressure 134 mm[Hg] Carmen Seese PT Work Phone: [facility] 07-07-2022 08:12-0500 Body height 162.6 cm Glenroy Syed INHALATION THERAPY AIDES TEACHER.[employer] Work Phone: [facility] 07-07-2022 08:12-0500 Body weight 112.04 kg Glenroy Syed INHALATION THERAPY AIDES TEACHER.[employer] Work Phone: [facility] 07-07-2022 08:12-0500 Diastolic blood pressure 88 mm[Hg] Glenroy Syed INHALATION THERAPY AIDES TEACHER.[employer] CHAIR Work Phone: [facility] 07-07-2022 08:12-0500 Heart rate 82 /min Glenroy Syed INHALATION THERAPY AIDES TEACHER.[employer] Work Phone: [facility] 07-07-2022 08:12-0500 SaO2% (BldA) [Mass fraction] 98 % Glenroy Syed INHALATION THERAPY AIDES TEACHER.[employer]AIR Work Phone: [facility] 07-07-2022 08:12-0500 Systolic blood pressure 134 mm[Hg] Glenroy Syed INHALATION THERAPY AIDES TEACHER.[employer] CHAIR Work Phone: [facility] 12-09-2021 13:59-0400 Blood Pressure Location Pamella SANABRIA [facility] 12-09-2021 13:59-0400 Diastolic blood pressure 78 mm[Hg] Pamella [facility]NABRI[facility] 12-09-2021 13:59-0400 Heart rate 68 /min Pamella SANABRIA [facility] [place] 12-09-2021 13:59-0400 Respiratory rate 16 /min Pamella SANABRIA [facility] 12-09-2021 13:59-0400 Systolic blood pressure 118 mm[Hg] Pamella SANABRIA [facility] [place] Encounters Encounter Date Encounter Type Care Provider Facility Start: 09-11-2024 End: 09-11-2024 ambulatory JAVA SYSTEMS ANALYST Cristiane L Brock Facility:[facility] [place] Start: 07-16-2024 ambulatory [facility] Start: 06-29-2024 ambulatory [facility] Start: 06-15-2024 ambulatory [facility] Start: 06-04-2024 End: 06-04-2024 ambulatory Ari Sellers MD Facility: [facility] Start: 05-31-2024 ambulatory [facility] Start: 05-09-2024 ambulatory [facility] Start: 04-27-2024 ambulatory [facility] Start: 03-06-2024 ambulatory [facility] Start: 01-31-2024 ambulatory [facility] Start: 01-24-2024 ambulatory [facility] Start: 12-19-2023 End: 12-19-2023 ambulatory JAVA SYSTEMS ANALYST Cristiane L Brock Facility:[facility] Start: 12-02-2023 ambulatory [facility] Start: 10-25-2023 End: 10-25-2023 ambulatory IRMA SUDHA Not Available Start: 08-25-2023 End: 08-25-2023 ambulatory IRMA SUDHA Not Available Start: 10-15-2022 Orders Only Glenroy Syed APRN.[employer] Work Phone: Neurology Comment on above: 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 Facility:[facility] Start: 08-24-2022 End: 08-24-2022 Patient encounter procedure Janell Sy MD Work Phone: Cardiology Comment on above: KANG (obstructive sle ep apnea) (Primary Dx); Dizziness; Palpitations; Obesity, morbid, BMI 40.0-49.9 ([facility]); SVT (supraventricular tachycardia) ([facility]); Chronic fatigue; Vitamin D deficiency Start: 08-20-2022 Orders Only Len VINCENTENGLISH DIVISION CHAIR Work Phone: Neurology Comment on above: Ocular migraine (Dinora andres Dx) Start: 08-19-2022 End: 08-19-2022 ambulatory [facility] Comment on above: Neuro Ophthalmologis t Start: 08-16-2022 ambulatory [facility] Neurology Comment on above: MRI Start: 08-12-2022 End: 08-12-[address] [facility] Facility:[facility] Start: 08-12-2022 End: 08-12-2022 ambulatory Carmen Seese PT Work Phone: Physical Therapy Comment on above: Dizziness (Primary D x); Cervicalgia; Headaches Start: 08-05-2022 End: 08-05-2022 ambulatory [facility] Facility:[facility] Start: 08-05-2022 End: 08-05-2022 ambulatory Carmen Seese PT Work Phone: Physical Therapy Comment on above: Dizziness (Primary D x); Cervicalgia; Headaches Start: 07-29-2022 End: 07-29-2022 ambulatory WM RODRIGUEZ Facility:[facility] Start: 07-21-[address] MERT LAMA Facilit y:[facility] Start: 07-07-2022 Telephone encounter Glenroy rodriguez INHALATION THERAPY AIDES TEACHER.[employer] Work Phone: Neurology Comment on above: Received Outside [facility] Start: 07-07-2022 End: 07-07-2022 ambulatory GLENROY SYED Facility:[facility] Start: 07-07-2022 End: 07-07-2022 Patient encounter procedure Glenroy Syed INHALATION THERAPY AIDES TEACHER.[employer] Work Phone: Neurology Comment on above: Dizziness [...] encounter procedure Pamella SANABRIA General Surgery Daniele/Jessie Avina Start: 11-25-2021 End: 11-26-[address] MERT LAMA Facility:[facility] Start: 11-23-2021 Encounter for genera l adult medical examination without abnormal findings DR MERT LAMA [facility] Start: 11-19-2021 End: 04-15-[address] MERT LAMA Facility:[facility] Start: 11-19-2021 End: 11-20-2021 Encounter for general adult medical examination without abnormal findings DR MERT LAMA Facility: Start: 11-17-2021 End: 11-18-2021 ambulatory MERT LAMA Facility:[facility] Start: 11-14-2021 End: 11-15-2021 ambulatory ANU CABAN Facility: Start: 10-08-2021 End: 10-08-2021 ambulatory WM RODRIGUEZ Facility: Start: 06-17-2021 End: 06-18-2021 ambulatory MERT LAMA Facility:[facility] Start: 04-16-2021 End: 05-23-2021 ambulatory MERT LAMA Facility:[facility] Start: 12-05-2020 End: 12-06-2020 ambulatory MERT LAMA Facility:[facility] Procedures Date Procedure Procedure Detail Performing Clinician Start: 08-24-2022 Ecg routine ecg w/le ast 12 lds i&r only [facility] Provider Start: 12-05-2020 ANESTH KNEE AREA SURGERY MERT LAMA Start: 12-05-2020 REMOVE FEMUR LESION CARLOS BRENNAN Start: 11-28-2020 Antibody screen MERT CHOUDHARY GHAr Comment on above: Performed By: #### 6 [id number] #### [address] Start: 11-04-2020 Cystourethroscopy wi th dilation of urethral stricture Pamella SANABRIA Abdominal hysterectomy [place] el DANIELE Bilateral complete salpingectomy Pamella ZIMMERMANL Cardiac radiofrequen cy ablation using ultrasound guidance Pamella SANABRIA Cholecystectomy Pamella SANABRIA Excision of osteochondroma M nicolle DANIELE History of ankle surgery Carlos ZIMMERMANL Plan of Treatment Date Care Activity Detail [...] 09/06/2022 Start: 04-08-2022 Influenza vaccination INFLUENZA (#1) [facility] Start: 08-08-2021 DEPRESSION ASSESSMENT DEPRESSION ASS ESSMENT [facility] Start: 11-05-2020 COVID-19 VACCINE (3 - Booster for Giancarlo series) COVID-19 VACCINE (3 - Booster for Giancarlo series) [facility] Start: 2012 HPV TESTING HPV TESTING [facility] Start: 11-30-2003 PAP TESTING PAP TESTING [facility] Start: 2001 Urine microalbumin profile DTA P,TDAP,TD (1 - Tdap) [facility] Start: 2000 HEPATITIS C SCREENING HEPATITIS C SC REENING [facility] Start: 2000 HIV SCREENING HIV SCREENING [facility] Start: 1982 HEPATITIS B (1 of 3 - 3-dose series) HEPATITIS B (1 of 3 - 3-dose series) [facility] End: 08-24-2023 ECG COMPLETE ECG COMPLETE [...] 1 Occurrences starti ng 08/16/2022 until 09/15/2023 [facility] Immunizations Immunization Date Immunization Notes Care Provider Tayo cullen 09-10-2020 SARS-CoV-2 (COVID-19 ) Ad26 vaccine, recombinant Pamella NILL [facility] 08-12-2020 SARS-CoV-2 (COVID-19 ) Ad26 vaccine, recombinant Pamella NILL [facility] Payers Date Payer Category Payer Unknown [id number] 2021 Unknown [id number] 1982 Unknown [id number] 2.16.8 40.1.853691.3.579.2.647 1982 Unknown [id number] 2.16.8 40.1.969801.3.579.2.647 1982 Unknown [id number] 2.16.8 40.1.304234.3.579.2.647 1982 Unknown [id number] 2.16.8 40.1.375264.3.579.2.647 1982 Unknown [id number] 2.16.84 0.1.291953.3.579.2.593 1982 Unknown [id number] 2.16.84 0.1.093645.3.579.2.593 1982 Unknown [id number] 2.16.84 0.1.543478.3.579.2.593 1982 Unknown [id number] 2.16.84 0.1.455470.3.579.2.593 1982 Unknown [id number] .16.84 0.1.980586.3.579.2.593 1982 Unknown [id number] .16.84 0.1.041541.3.579.2.593 1982 Unknown [id number] .16.84 0.1.975881.3.579.2.593 1982 Unknown [id number] .16.84 0.1.002263.3.579.2.593 1982 Unknown [id number] .16.84 0.1.085790.3.579.2.593 1982 Unknown [id number] 2.16.84 0.1.883823.3.579.2.593 1982 Unknown [id number] .16.84 0.1.418783.3.579.2.593 1982 Unknown [id number] 2.16.84 0.1.888187.3.579.2.593 1982 Unknown [id number] 2.16.84 0.1.766901.3.579.2.593 1982 Unknown [id number] .16.84 0.1.960720.3.579.2.593 1982 Unknown [id number] .16.84 0.1.686617.3.579.2.593 1982 Unknown [id number] 2.16.84 0.1.941559.3.579.2.1259 1982 Unknown [id number] 2.16.84 0.1.100215.3.579.2.1259 1982 Unknown [id number] 2.16. 840.1.226779.3.579.2.196 1982 Unknown [id number] 2.16.8 40.1.862896.3.579.2.727 1982 Unknown [id number] 2.16.8 40.1.655959.3.579.2.727 1959 Unknown [id number] Social History Date Type Detail Facility Start: 12-09-2021 End: 07-07-2022 Tobacco smoking status Never smoked tobacco (finding) [facility] Tobacco smoking status Never [facility] Sex Assigned At Female [facility] Start: 07-07-2022 Tobacco use and exposure Smokeless tobacco non-user [facility] Start: 1982 Sex Assigned At Not on file [facility] Start: 06-27-2022 End: 07-07-2022 Exposure to SARS-CoV-2 (event) Not sure [facility] Start: 08-24-2022 Alcohol intake Current drinke r of alcohol (finding) [facility] Start: 08-24-2022 Alcohol Comment occasionally 1 -2 times a months 2-3 drinks [facility] Clinical Notes 12-30-2021 to 10-14-2022 Mauri Ross RT(R) - 09/09/2022 2:11 PM Marilyn Sy MD - 08/24/2022 1:45 PM ESTTelephone Encounter - Glenroy Syed APRN.ENGLISH DIVISION CHAIR - 08/16/2022 8:28 AM Elio Johnson PT - 08/12/2022 2:51 PM EST Note Date & Type Note Facility 10-14-2022 Note HNO ID: [id number] Author: Es Loomis RT(R) Service: ? Author Type: Technologist Type: Progress [...] RT Mary(R) October 14, 2022 4:55 PM [facility] 10-14-2022 Note HNO ID: [id number] Author: Papa Rea RN Service: Radiology Author [...] DATE: October 14, 2022 TIME: 3:20 PM [facility] 09-09-2022 Note HNO ID: [id number] Author: Mauri Ross RT(R) Service: ? Author Type: Technologist Type: Progress [...] 09, 2022 TIME: 2:11 PM PAGER/CONTACT #: [facility] 09-09-2022 History of Present illness Narrative RADIOLOGY SERVICE PROGRESS NOTE DATE OF SERVICE: September 09, 2022 TIME OF SERVICE: 2 pm EVENT: EXAM/PROCEDURE NOT COMPLETED - Patient became claustrophobic, reaction was: Moderate. ADDITIONAL EVENT DETAILS: No images acquired. Patient to r/s on large bore mri scanner. SIGNATURE: Mauri Gonzalez RT Cody(R) PATIENT NAME: Kaila Vasquez DATE: September 09, 2022 TIME: 2:11 PM PAGER/CONTACT #: documented in this encounter [facility] 08-24-2022 Note HNO ID: [id number] Author: Janell Sy MD Service: ? Author Type: Physician Type: Progress Notes Filed: 08/24/2022 2:17 PM Note Text: [facility] SECTION OF REGIONAL CARDIOLOGY OUTPATIENT VISIT DATE August 24, 2022 OUTPATIENT VISIT TYPE NEW PRIMARY CARE PHYSICIAN: To use this Smartlink, specify the provider ID whose address you want to display, e.g., .PROVADDR[1 (where 1 is the provider ID). A written report of the findings and recommendations will be sent to the requesting provider via shared medical record or via [facility]. Patient is being seen at the [...] Cardiac work-up includes: Echocardiogram on 05/19/2020 at [facility] showed normal ejection fraction. No valvular heart [...] ECG COMPLETE 4. Obesity, morbid, BMI 40.0-49.9 ([facility]) E66.01 ECG COMPLETE 5. SVT (supraventricular tachycardia) ([facility]) I47.1 6. Chronic fatigue R53.82 7. Vitamin [...] Never Vaping U (more content not included)... [facility] 08-24-2022 History of Present illness Narrative Images from the original note were not included. [facility] SECTION OF REGIONAL CARDIOLOGY OUTPATIENT VISIT DATE August 24, 2022 OUTPATIENT VISIT TYPE NEW PRIMARY CARE PHYSICIAN: To use this Smartlink, specify the provider ID whose address you want to display, e.g., .DealoADDR[1 (where 1 is the provider ID). A written report of the findings and recommendations will be sent to the requesting provider via shared medical record or via [email or web address]. Patient is being seen at the request [...] Cardiac work-up includes: Echocardiogram on 05/19/2020 at [facility] showed normal ejection fraction. No valvular heart [...] ECG COMPLETE 4. Obesity, morbid, BMI 40.0-49.9 ([facility]) E66.01 ECG COMPLETE 5. SVT (supraventricular tachycardia) ([facility]) I47.1 6. Chronic fatigue R53.82 7. Vitamin [...] twice daily.^Disp: ^Rfl: documented in this encounter [facility] 08-19-2022 Note HNO ID: [id number] Author: Mauri Chun OD Service: ? Author Type: QUALITY ASSURANCE ASSOCIATE Type: Progress Notes Filed: 08/19/2022 10:22 AM Note Text: Ocular health is unremarkable with no abnormalities. Normal ON appearance Ophthalmic migraines Glasses Rx given with slight prism [facility] 08-16-2022 Miscellaneous Notes signed We can add it to fully evaluate her symptoms. -LP documented in this encounter [facility] 08-12-2022 Note HNO ID: [id number] Author: Carmen Johnson, PT Service: ? Author [...] Time Minutes (timed/untimed): 60 Carmen Johnson, PT [facility] 08-12-2022 History of Present illness Narrative [...] Carmen Johnson PT documented in this encounter [facility] 08-05-2022 Note HNO ID: [id number] Author: Carmen Johnson PT Service: ? Author [...] Planned: 8 Planned Treatment Interventions: Therapeutic exercise (68234);Neuromuscular re-education (81975);Manual therapy (38937);Therapeutic activities (75869);Self-[place] [facility] [place] facility management (55012);Patient/Family/Caregiver Education;Gait Training (63857);Canalith Repositioning Maneuvers (04452) PLAN FOR NEXT VISIT: Detailed neck exam [...] Premature atrial contra (more content not included)... [facility] 08-05-2022 History of Present illness Narrative [...] Planned: 8 Planned Treatment Interventions: Therapeutic exercise (39042);Neuromuscular re-education (99835);Manual therapy (69310);Therapeutic activities (70588);Self-[place] [facility] [place] management (23781);Patient/Family/Caregiver Education;Gait Training (27669);Canalith Repositioning Maneuvers (14216) PLAN FOR NEXT VISIT: Detailed neck exam [...] Carmen Johnson PT documented in this encounter [facility] 07-07-2022 Note HNO ID: [id number] Author: Glenroy Syed APRN.ENGLISH DIVISION CHAIR Service: ? Author Type: Nurse Practitioner Type: Progress Notes Filed: 07/07/2022 12:28 PM Note Text: [facility] General Neurology New Patient Evaluation CHIEF [...] over a month. 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 A couple times a month she gets [...] for 1 dose.N (more content not included)... [facility] 07-07-2022 Miscellaneous Notes Noted. Provider notified. Received medical records from [facility]. Uploaded to chart and forwarded for review. documented in this encounter [facility] 07-07-2022 Instructions Glenroy Syed APRN.CNP - 07/07/2022 9:06 AM EST Plan: Baseline labs MRI Brain for multiple symptoms ECHO for palpitations and arrhythmias Aspirin 81mg daily in the setting of known arrhythmias Consult to [place] for dizziness Consult to Cardiology for second opinion Consult to ophthalmology Follow up after testing documented in this encounter [facility] 07-07-2022 History of Present illness Narrative Images from the original note were not included. [facility] General Neurology New Patient Evaluation CHIEF [...] over a month. 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 A couple times a month she gets [...] Finger Abduction (U) 5 Finger Abduction 5 Strip Tank Tender 5 Strip Tank Tender 5 Right Lower Extremity: (of 5) Left [...] over a month. 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 A couple times a month she gets [...] [place] reccommended. Patient wanting second opinion from interlocking machine operator within the [facility], referral placed. Unlikely autonomic dysfunction with unremarkable tilt and orthostatic vitals in office unconvincing (did not take BB today). Additionally, with visual changes, recommended seeing neuro it investment/portfolio manager. Will obtain additional labs as well. Follow [...] which included preparing to see the patient, [id number] patient care, completing clinical documentation, obtaining and/or reviewing separately obtained history, performing a medically appropriate examination, counseling and educating the patient/family/caregiver, ordering medications, tests, or procedures, and care coordination (not separately reported). Glenroy Syed APRN.[facility] General Neurology [address] [place] [address] Appointment: [phone] In regards to blood work, testing, and [...] your PCP/referring physician documented in this encounter [facility] 03-16-2022 Note EXAM: CHEST 2 VIEWS [...] authenticated by: BETTY MORALES Date: 2022-03-16 18:13 [facility] 12-30-2021 Note [facility] [place], [place] NAME: KAILA VASQUEZ DATE OF : MEDICAL REC#: [id number] COILER OPERATOR: [address] [place] GASTELUM, TRANSADMIT DATE: 12/30/2021 09:02:00 JACK PRIZER DATE: 12/30/2021 21:00 DICTATING PHYSICIAN: PAMELLA SANABRIA [...] DR PAMELLA SANABRIA . 01/06/2022 08:31:00 [facility] Evaluation + Plan note No data available for this section [facility] Evaluation note Diagnosis Dizziness- Primary Dizziness and giddiness Migraine aura without headache Migraine with aura, without mention of intractable migraine without mention of status migrainosus Palpitations Chronic fatigue Other malaise and fatigue Vision changes Unspecified visual disturbance Disturbance of skin sensation [facility]* Diagnosis Dizziness- Primary Dizziness and giddiness Cervicalgia Headaches documented in this encounter [facility] note* Diagnosis Dizziness- Primary Dizziness and giddiness Cervicalgia Headaches documented in this encounter [facility] note* Diagnosis Cervicalgia- Primary Dizziness Dizziness and giddiness Vision changes Unspecified visual disturbance Disturbance of skin sensation documented in this encounter [facility] note* Diagnosis Ocular migraine- Primary Other forms of migraine, without mention of intractable migraine without mention of status migrainosus documented in this encounter [facility]* Diagnosis KANG (obstructive sleep apnea)- Primary Obstructive sleep apnea (adult) (pediatric) Dizziness Dizziness and giddiness Palpitations Obesity, morbid, BMI 40.0-49.9 (HCC) Morbid obesity SVT (supraventricular tachycardia) ([facility]) Other specified cardiac dysrhythmias Chronic fatigue Other malaise and fatigue Vitamin D deficiency Unspecified vitamin D deficiency documented in this encounter [facility] note* Diagnosis Degeneration of intervertebral disc of cervical region with osteophyte of cervical vertebra- Primary documented in this encounter [facility] Discharge instructions No data available for this section [facility] Reason for referral (narrative)* Outpatient Procedure (Routine) - Authorized Specialty Diagnoses / Procedures Referred By Contac t Referred To Contact [facility] Diagnoses Dizziness Palpitations Obesity, morbid, BMI 40.0-49.9 ([facility]) Procedures ECG COMPLETE ECG ROUTINE ECG W/LEAST 12 LDS W/I&R Janell Sy MD [address] [place] [address] [facility] [place] [facility] [place] [address] Referral ID Status Reason Start Date Expiration Date Visits Requested Visits Authorized [id number] Authorized Auto-Generat ed Referral 08/24/2022 08/24/2023 1 1 [facility] Summary Purpose Family History No Family History [...] By Contac t Referred To Contact [facility] [place] Diagnoses Degeneration of intervertebral disc of cervical region with osteophyte of cervical vertebra Procedures CONSULT TO [facility] OFFICE/OUTPATIENT [facility] 60-74 MINUTES Glenroy Syed, INHALATION THERAPY AIDES TEACHER.ENGLISH DIVISION CHAIR [address] [place] [phone] Referral ID Status Reason Start Date Expiration Date Visits Requested Visits Authorized [id number] Authorized PCP Requested Referral 10/15/2022 10/15/2023 1 1 Specialty Diagnoses / Procedures Referred By Contac t Referred To Contact Ophthalmology Diagnoses Ocular migraine Procedures CONSULT TO OPHTHALMOLOGY OFFICE/OUTPATIENT [facility] 60-74 MINUTES Len Shea, INHALATION THERAPY AIDES TEACHER.ENGLISH DIVISION CHAIR [address] [facility] [id number] [place] [address] Josefina Grimes MD [address] [place] [address] Referral ID Status Reason Start Date Expiration Date Visits Requested Visits Authorized [id number] Authorized PCP Requested Referral 08/20/2022 08/20/2023 1 1 Specialty Diagnoses / Procedures Referred By Contac t Referred To Contact Cardiology Diagnoses Dizziness Palpitations Procedures CONSULT TO CARDIOLOGY OFFICE/OUTPATIENT [facility] 60-74 MINUTES Glenroy Syed, INHALATION THERAPY AIDES TEACHER.ENGLISH DIVISION CHAIR [address] [place] [phone] Referral ID Status Reason Start Date Expiration Date Visits Requested Visits Authorized [id number] Authorized PCP Requested Referral 07/07/2023 1 1 Specialty Diagnoses / Procedures Referred By Contac t Referred To Contact MR IMAGING Diagnoses Dizziness Vision changes Procedures MRI BRAIN WO/W IVCON MRI BRAIN BRAIN STEM W/O W/CONTRAST MATERIAL Glenroy Syed, INHALATION THERAPY AIDES TEACHER.ENGLISH DIVISION CHAIR [address] [place] [phone] Mr Imaging Referral ID Status Reason Start Date Expiration Date Visits Requested Visits Authorized [id number] Authorized Auto-Generat ed Referral 2 08/21/2022 1 1 Specialty Diagnoses / Procedures Referred By Contac t Referred To Contact Ophthalmology Diagnoses Vision changes Procedures CONSULT TO OPHTHALMOLOGY OFFICE/OUTPATIENT NEW HIGH MDM 60-74 MINUTES Glenroy Syed, INHALATION THERAPY AIDES TEACHER.ENGLISH DIVISION CHAIR [address] [place] [phone] Josefina Grimes MD [address] [id number] Referral ID Status Reason Start Date Expiration Date Visits Requested Visits Authorized [id number] Authorized PCP Requested Referral 2 07/07/2023 1 1 Specialty Diagnoses / Procedures Referred By Contac t Referred To Contact [facility] Diagnoses Palpitations Procedures ECHO ECHO TTHRC R-T 2D W/WOM-MODE COMPL SPEC&COLR D Glenroy Syed, INHALATION THERAPY AIDES TEACHER.ENGLISH DIVISION CHAIR [address] [place] [phone] [facility] [place] [address] [place] [address] Referral ID Status Reason Start Date Expiration Date Visits Requested Visits Authorized [id number] Authorized Auto-Generat ed Referral 2 07/07/2023 1 1 Additional Source Comments INFORMATION SOURCE (unrecogn ized section and content) DATE CREATED AUTHOR 11/24/2021 [facility] DATE CREATED AUTHOR AUTHOR'S ORGANIZ ATION 07/20/2022 [facility] DATE CREATED AUTHOR AUTHOR'S ORGANIZ ATION 09/06/2022 [facility] DATE CREATED AUTHOR AUTHOR'S ORGANIZ ATION 10/16/2022 [facility] DATE CREATED AUTHOR AUTHOR'S ORGANIZ ATION 10/26/2023 [facility] DATE CREATED AUTHOR AUTHOR'S ORGANIZ ATION 06/09/2024 [facility] DATE CREATED AUTHOR AUTHOR'S ORGANIZ ATION 07/19/2024 [facility] DATE CREATED AUTHOR AUTHOR'S ORGANIZ ATION 09/12/2024 [facility] Source Comments (unrecognize d section and content) In the event this informatio n is protected by the Federal Confidentiality of Alcohol and Drug Abuse Patient Records regulations: The Federal rules restrict any use of the information to criminally investigate or prosecute any alcohol or drug abuse patient.[facility] the event this information is protected by the Federal Confidentiality of Alcohol and Drug Abuse Patient Records regulations: The Federal rules restrict any use of the information to criminally investigate or prosecute any alcohol or drug abuse patient.[facility] the event this information is protected by the Federal Confidentiality of Alcohol and Drug Abuse Patient Records regulations: The Federal rules restrict any use of the information to criminally investigate or prosecute any alcohol or drug abuse patient.[facility] the event this information is protected by the Federal Confidentiality of Alcohol and Drug Abuse Patient Records regulations: The Federal rules restrict any use of the information to criminally investigate or prosecute any alcohol or drug abuse patient.[facility] the event this information is protected by the Federal Confidentiality of Alcohol and Drug Abuse Patient Records regulations: The Federal rules restrict any use of the information to criminally investigate or prosecute any alcohol or drug abuse patient.[facility] the event this information is protected by the Federal Confidentiality of Alcohol and Drug Abuse Patient Records regulations: The Federal rules restrict any use of the information to criminally investigate or prosecute any alcohol or drug abuse patient.[facility] the event this information is protected by the Federal Confidentiality of Alcohol and Drug Abuse Patient Records regulations: The Federal rules restrict any use of the information to criminally investigate or prosecute any alcohol or drug abuse patient.[facility] the event this information is protected by the Federal Confidentiality of Alcohol and Drug Abuse Patient Records regulations: The Federal rules restrict any use of the information to criminally investigate or prosecute any alcohol or drug abuse patient.[facility] the event this information is protected by the Federal Confidentiality of Alcohol and Drug Abuse Patient Records regulations: The Federal rules restrict any use of the information to criminally investigate or prosecute any alcohol or drug abuse patient.[facility] the event this information is protected by the Federal Confidentiality of Alcohol and Drug Abuse Patient Records regulations: The Federal rules restrict any use of the information to criminally investigate or prosecute any alcohol or drug abuse patient.[facility] Reason for Visit (unrecogniz ed section and content) Reason Comments New Patient New patient, possibl e autonomic disorder had tilt table test few yrs ago, Has pressure that comes and goes on the lower back part of the head. Reason Comments Received Outside Medical Records Reason Comments PT Eval Specialty Diagnoses / Procedures Referred By Eric t Referred To Contact Physical Therapy / PHYSICAL THERAPY Diagnoses Dizziness [R42] Procedures NEW RS PT VESTIBULAR DIZZY Glenroy Syed, ELISEO.ENGLISH DIVISION CHAIR [address] [place] [address] Carmen Johnson, PT [address] [place] [address] Referral ID Status Reason Start Date Expiration Date Visits Re quested Visits Authorized [id number] Closed 08/08/2021 08/07/2022 30 30 Reason Comments Physical Therapy Specialty Diagnoses / Procedures Referred By Contac t Referred To Contact PHYSICAL THERAPY Diagnoses Dizziness Procedures Physical Therapy Glenroy Syed, INHALATION THERAPY AIDES TEACHER.ENGLISH DIVISION CHAIR [address] [place] [address] Pt [facility] [address] [place] [address] Referral ID Status Reason Start Date Expiration Date V isits Requested Visits Authorized [id number] Pending Review 08/12/2022 11/10/2022 1 1 Reason Comments Establish Care Palpitations Dizziness Specialty Diagnoses / Procedures Referred By Contac t Referred To Contact Cardiology Diagnoses Dizziness Palpitations Procedures CONSULT TO CARDIOLOGY OFFICE/OUTPATIENT [facility] 60-74 MINUTES Glenroy Syed, INHALATION THER[employer]Y [employer]IDES TEACHER.[employer] [address] [place] [address] Referral ID Status Reason Start Date Expiration Date V isits Requested Visits Authorized [id number] Closed PCP Requested Referral 07/07/2022 07/07/2023 1 1 Reason Comments Radiology MRI Care Teams (unrecognized sec tion and content) Protection Manager Relationship Specialty Start Date End Date Mert Lama MD [address] [place] [phone] Referring Family Medicine 06/10/22 Protection Manager Relationship Specialty Start Date End Date Mert Lama MD [address] [place] [address] Referring Family Medicine 06/10/22 Protection Manager Relationship Specialty Start Date End Date Mert Lama MD [address] [place] [address] Referring Family Medicine 06/10/22 Protection Manager Relationship Specialty Start Date End Date Mert Lama MD [address] [place] [address] Referring Family Medicine 06/10/22 Protection Manager Relationship Specialty Start Date End Date Mert Lama MD [address] [place] [address] Referring Family Medicine 06/10/22 Protection Manager Relationship Specialty Start Date End Date Mert Lama MD [address] [place] [address] Referring Family Medicine 06/10/22 Protection Manager Relationship Specialty Start Date End Date Mert Lama MD [address] [place] [address] Referring Family [facility] 06/10/22 Protection Manager Relationship Specialty Start Date End Date Mert Lama MD [address] [facility] [address] Referring Family [facility] 06/10/22 FOR RECORDS PERTAINING TO PATIENTS WHO [...] BASED ON THE PRIMARY CLINICAL RECORDS. [facility] [employer] provides no warranty or guarantee of the accuracy or completeness of information in this document.
--- NOTE | 2024-09-13 07:52 | CT_ITS ---
[address] [address] Patient Name: KAILA OTOOLE MRN: [id number] date: 1980 Sex: F Assigned Patient Location: CT Current Patient Location: CT Accession/Order Number: [id number] Exam Date: 09/13/2024 09:17 Report Date: 09/13/2024 21:03 At the request of: YE RODRIGUEZ Procedure: CT abdomen pelvis wo con EXAMINATION: CT abdomen pelvis wo con, 09/13/2024 9:17 AM EST HISTORY: Right Upper Quadrant Pain, Left Upper Quadrant Pain COMPARISON: None. TECHNIQUE: CT scan of the abdomen and pelvis was performed without IV contrast. CT dose reduction technique was used, including Automated Exposure Control. FINDINGS: LOWER CHEST: The visualized lungs are clear. LIVER: Unremarkable. GALLBLADDER AND BILIARY SYSTEM: Status post cholecystectomy. There is no intra or extrahepatic biliary ductal dilatation. SPLEEN: Unremarkable. PANCREAS: Unremarkable. ADRENAL GLANDS: Unremarkable. KIDNEYS AND URETERS: There is a punctate nonobstructing calculus in the midpole the left kidney. No ureteral calculus or hydronephrosis. BLADDER: Under distended. GASTROINTESTINAL TRACT: No evidence of bowel obstruction or colitis. Normal appendix. VASCULATURE: The abdominal aorta is normal in caliber. RETROPERITONEUM: No lymphadenopathy. PERITONEUM/MESENTERY: No abdominal ascites. No free air. PELVIS: There is a 2.9 x 2.7 cm right ovarian cyst. No pelvic ascites or lymphadenopathy. BODY WALL: Unremarkable. BONES: No acute abnormality. CT/CT abdomen pelvis wo con IMPRESSION: 1. Punctate nonobstructing calculus in the midpole the left kidney. No hydronephrosis. 2. Right ovarian cyst measuring 2.9 cm. 3. Status post cholecystectomy. No intra or extrahepatic biliary ductal dilatation. Electronically authenticated by: JAMES HOGAN Date: 09/13/2024 21:03
== END 2024-09-13 07:49 | disposition home or self-care (01) ==
LOC: CT 07:48
PROVIDERS: PCP Family Medicine; Visit Provider Nurse Practitioner
DX: R10.11 Right upper quadrant pain (principal); R10.12 Left upper quadrant pain; R10.13 Epigastric pain; N20.0 Calculus of kidney; N83.291 Other ovarian cyst, right side
CPT/HCPCS: 74176

== ENCOUNTER 2024-12-12 13:50 | Outpatient (OUT) | payer BC, SELFPAY ==
--- NOTE | 2024-12-12 14:10 | P.CN_ITS ---
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 Pt has failed to benefit from > 6 weeks of PT and provider guided HEP, heat, ice, tylenol, and NSAIDs. currently utilizing tizanidine 4mg TID PRN pain/spasms. pain today 3/10 increasing to 9/10 with twisting, lying, bedning. mild improvement with heat. cc:: CC: Deepika Alicia NP Review of Systems ROS Status of ROS 10 or more systems reviewed and unremark able except as noted in history and below Musculoskeletal Reports: neck pain; Denies: extremity pain PFSH PFSH Medical History (Updated 12/12/24 @ 14:15 by Deepika Alicia NP) Arthritis ?M19.90 - Unspecified osteoarthritis, unspecified site (ICD-10) Anemia ?D64.9 - Anemia, unspecified (ICD-10) Acid reflux ?K21.9 - Gastro-esophageal reflux disease without esophagitis (ICD-10) Kidney stone ?N20.0 - Calculus of kidney (ICD-10) Irregular heart beat ?I49.9 - Cardiac arrhythmia, unspecified (ICD-10) Surgical History History of cardiac radiofrequency ablation ?Z98.890 - Other specified postprocedural states (ICD-10) History of ankle surgery ?Z98.890 - Other specified postprocedural states (ICD-10) History of hysterectomy ?Z90.710 - Acquired absence of both cervix and uterus (ICD-10) Hx of cholecystectomy ?Z90.49 - Acquired absence of other specified parts of digestive tract (ICD- 10) Meds Home Medications and Allergies Home Medications ?Medication ?Instructions ?Recorded ?Confirmed ?Type metoprolol tartrate 50 mg tablet 50 mg PO BID 12/30/23 06/12/24 History tizanidine 4 mg capsule (Zanaflex) 4 mg PO Q8H PRN mus abhishek spasticity 12/30/23 06/12/24 Rx #20 caps Allergies Allergy/AdvReac Type Severity Reaction Status Date / Time No Known Drug Allergies Allergy Verified 03/27/24 07:03 Exam Constitutional Documenting provider has reviewed patient's vital signs: yes Common normals: no apparent distress, oriented x3, healthy appearing, alert and well nourished General appearance: cooperative HENMT Common normals: normocephalic, hearing grossly normal bilaterally and moist oral mucous membranes Head and scalp: normocephalic Eye Common normals: PERRL Pupil: PERRL Neck & C-Spine Common normals: full ROM General: normal visual inspection Cervical spine: cervical ROM abnormal, pain with cervical ROM and cervical spine tenderness C4, C5, C6, C7 and T1 Other: negative spurlings strength 5/5 in BUE sensation intact BUE positive facet mediated loading left greater than right Chest Common normals: inspection of chest normal Respiratory Common normals: normal respiratory effort, no retractions and no use of accessory muscles Neuro Common normals: oriented x3 Sensorium/orientation: alert Psych Common normals: mental status grossly normal, thought process normal, cooperativ e, affect normal, speech normal and activity/motor behavior normal Speech: normal speech Thought process: normal thought process Results Additional Findings Additional findings: If on a controlled substance or opioids, I have checked an [place] report on this patient and there are no aberrancies noted in the prescribing history.??If on a controlled substance or opioid a drug screen was completed and reviewed within the last year, and if there has not been a drug screen completed we ordered one today to monitor higher risk, state monitored pain medication use. As part of providing excellent, safe, comprehensive care, the following was completed at our patient's visit: 1. A medication reconciliation and review to ensure accurate knowledge of current/active medications, including asking our patients to inform us about any [id number] medications or herbal remedies/nutritional supplements/alternative remedies. 2. A review to specifically ensure our patients have had annual screening for screening for depression, screening for tobacco use, and screening for unhealthy alcohol use. For concerning screenings had a discussion with the patient, provided patient education, and recommended follow-up with primary care provider when appropriate. If patient noted with a risk of falling, they received education on strength, gait, and balance training to prevent future risk of falling. Portions of this note may have been carried over from the previous visit and updated as appropriate. Please note this office utilizes paper charting in addition to the electronic medical record. A list of current medications, vitals, and PMH is available there as the clinical staff outside of myself do not have access to [email or web address] charting during the clinic day operations. As part of providing quality comprehensive care the current medications, vitals, and PMH were reviewed in the paper chart. Assessment and Plan Assessment and Plan (1) Cervical spondylosis: Assessment and Plan: The patient has had over 3 months of moderate to severe neck pain with functional impairment and inadequate response to conservative care including NSAIDS (unless there are contraindication such as concurrent blood thinners), multiple oral or topical pain medications, and home exercise program/physical therapy.? Patient has completed >6 weeks of guided home exercise program and/or formal physical therapy program without relief of their symptoms.? I have reviewed the imaging of the cervical spine and no red flags were identified.? The imaging reveals radiographic findings consistent with cervical ddd and spondylosis The Oswestry Disability Index was completed, and the patient scored a 42%.? The patient noted the following:?? moderate to severe pain with activity, lifting, sitting, sleep, social life, and travel We discussed the risks and benefits of the procedure with the patient, and we are NOT planning on using sedation as outlined in the guidelines from Medicare unless there is a documented reason that sedation would be strongly recommended.?? ?The procedure will be completed with fluoroscopic guidance.? (2) Lumbar spondylosis: (3) Myofascial pain: Plan bilateral C4-5 C5-6 facet medial branch block x2 working towards RFA for facet mediated pain continue current medications f/u after each injection
== END 2024-12-12 13:51 | disposition home or self-care (01) ==
LOC: PM 13:50
PROVIDERS: PCP Family Medicine; Visit Provider Nurse Practitioner
DX: M47.812 Spondylosis without myelopathy or radiculopathy, cervical region (principal); M47.816 Spondylosis without myelopathy or radiculopathy, lumbar region; M79.18 Myalgia, other site
CPT/HCPCS: G0463

== ENCOUNTER 2024-12-24 09:33 | Day surgery (SDC) | payer BC, SELFPAY ==
--- OUTSIDE RECORDS SUMMARY | 2024-12-24 09:41 | XMS_ITS | CCD ---
Author Organization [facility] Care Team Providers Care Teachers' Assistant Name Role Phone MERT LAMA Referring Unavailable PAMELLA BRENNAN Attending Unavailable MIKA, PAMELLA Ang Surgeon Unavailable PAMELLA BRENNAN Admitting Unavailable NE Procedure Practitioner Unavailab MERT Caban Primary Care Unavailable EMRT LAMA Referring Unavailable NELLY ORNELAS Admitting Unavailable [...] GLENROY Referring Unavailable POULTON, GLENROY Referring Unavailable JANELL SY Attending Unavailable MAURI CHUN Attending Unavailable POULTANISHA, GLENROY Referring Unavailable IRMA CORTES Attending Unavailable IRMA CORTES Attending Unavailable Marlo PIZARRO, Ari Fuller Attending Unavailable Mert Lama MD Primary Care Provider Cristiane Gutiérrez Attending Unavailable Brock, Cristiane Bangura Attending Unavailable Brock, Cristiane Bangura Attending Unavailable BrockCristiane Attending Unavailable JONNY FOWLER Referring Unavailable VISHAL ROGERS Referring Unavailable MANUEL, JONNY Referring Unavailable SUE, VIHSAL Referring Unavailable MANUEL, JONNY Referring Unavailable MANUEL, JONNY Referring Unavailable MANUEL, JONNY Referring Unavailable MANUEL, JONNY Referring Unavailable MANUEL, JONNY Referring Unavailable SUE, VISHAL Referring Unavailable MNAUEL, JONNY Referring Unavailable MANUEL, JONNY Referring Unavailable MANUEL, JONNY Referring Unavailable SUE, VISHAL Referring Unavailable SUE, VISHAL Referring Unavailable SUE, VISHAL Referring Unavailable Medications Current Medications Medication Drug Class(es) Dates Sig (Normalized) Sig (Original) DULoxetine 30 mg delayed release oral capsule (1 source) Serotonin and Norepinephrine Reuptake Inhibitor Start: 05-01-2021 take 1 capsule by mouth once daily DULoxetine (CYMBALTA) 30 mg capsule Indications: Sensory disturbance , Nonintractable headache, unspecified chronicity pattern, unspecified headache type , Chronic pain syndrome Take 1 capsule (30 mg total) by mouth nightly. 30 capsule 3 05/01/2021 Active estradiol 0.1 mg/ml vaginal cream (1 source) Estrogen estradioL (ESTRA CE) 0.01 % (0.1 mg/gram) vaginal cream Insert 2 g into the vagina daily. 2 NIGHTS WEEKLY Active iv contrast (will be provided with radiology [...] Ordered metoprolol tartrate 25 mg oral tablet (10 sources) beta-Adrenergic Norbert Start: 11-27-19 22 take 2 tablets by mouth twice daily Metoprolol tartrate 25 mg Tab 50 mg = 2 tab(s), Oral, BID, Refills(s) 0 Start Date: 11/26/21 Status: Ordered metoprolol tartr ate (LOPRESSOR) 25 mg tablet Take 25 mg by mouth 2 (two) times a day. TABLET BID Active End: 08-24-2022 take 1 tablet by mouth twice daily metoprolol tartrate, short acting, (LOPRESSOR) 50 mg tablet Take 50 mg by mouth twice daily. 0 08/24/2022 Discontinued Comment on above: metoprolol tartrate 50 mg tablet Take 50 mg by mouth twice daily. perflutren lipid microspheres 1.3 mL in NaCl (PF) 0.9% 10 mL injection (DEFINITY) (10 sources) Start: 07-07-20 22 End: 10-06-19 24 perflutren lipid microspheres 1.3 mL in NaCl (PF) 0.9% 10 mL injection (DEFINITY) QUEtiapine 25 mg oral tablet (2 sources) Atypical Antipsychotic Start: 10-10-19 take 1 tablet by mouth at bedtime quetiapine 25 mg Tab 25 mg = 1 tab(s), Oral, Bedtime, Refills(s) 0 Start Date: 10/09/20 Status: Ordered 125 ml sodium chloride 9 mg/ml prefilled syringe (10 sources) Start: 07-07-20 End: 10-06-19 sodium chloride 0.9 % (flush) 10 mL (BD POSIFLUSH) topiramate 25 mg oral tablet (1 source) Start: 02-26-20 take 1 tablet by mouth twice daily topiramate (TOPAMAX) 25 mg tablet Indications: Sensory disturbance , Nonintractable episodic headache, unspecified headache type , Chronic pain syndrome Take 1 tablet (25 mg total) by mouth 2 (two) times a day. 60 tablet 3 02/25/2021 Active Completed/Discontinued Medications Medication Drug Class(es) Dates Sig [...] Comment on above: Take 1 capsule by mo [facility] once daily. 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 THERAPY] Onset: 09-06-2022 Episodic Other connective tissue disease (1 source) Fibromyalgia 11-26-2021 Episodic Other connective tissue disease (1 source) Foot pain 10-09-2020 Episodic Other connective tissue disease (1 source) Plantar fasciitis 10-09-2020 Episodic Other nervous system disorders (2 sources) Disorder of autonomic nervous system; Translations: [Disorder of the autonomic nervous system, unspecified] Onset: 05-01-2021 11-26-2021 Chronic Other nervous system disorders (1 source) Chronic pain syndrome; Translations: [Chronic pain syndrome] Onset: 05-01-2021 05-01-2021 Chronic Other nervous system disorders (2 sources) [...] disc degeneration, lumbosacral region] Onset: 11-23-2021 Chronic Unclassified (4 sources) CONTACT W/AND (SUSP) EXPOS [...] DISEASES ANUS AND RECTUM] Onset: 01-06-2022 Episodic Blindness and vision defects (4 sources) Eye / vision finding; Translations: [Unspecified visual disturbance] Onset: 02-25-2021 Episodic Calculus of urinary tract (2 sources) [...] infection; Translations: [Nocturia] Onset: 01-06-2022 11-04-2020 Episodic Headache; including migraine (3 sources) Headache; Translations: [Headaches] Onset: 02-25-2021 Episodic Mood disorders (1 source) Mood disorders Onset: 02-25-2021 02-25-2021 Other connective tissue disease (1 source) Fibromyalgia; Translations: [FIBROMYALGIA] Onset: 01-06-2022 Episodic Other nervous system disorders (1 source) Sensory disorder; Translations: [Unspecified disturbances of skin sensation] Onset: 02-25-2021 02-25-2021 Episodic Other nutritional; endocrine; and metabolic disorders [...] OTH PART DIGESTV TRACT] Onset: 01-06-2022 Episodic Spondylosis; intervertebral disc disorders; other back problems (7 sources) Chronic low back pain; Translations: [Neck pain] Onset: 05-01-2021 11-26-2021 Episodic Unclassified (1 source) CONTACT W/AND (SUSP) EXPOS COVID-19; Translations: [CONTACT W/AND (SUSP) EXPOS COVID-19] Onset: 07-29-2022 Unclassified (1 source) LOW BACK PAIN, UNSPECIFIED; Translations: [LOW BACK PAIN, UNSPECIFIED] Onset: 01-31-2022 Unclassified (1 source) Onset: 05-01-2021 05-01-2021 Results Test Name Value Interpretation Reference Range Facility 36on 12-11-2024 36 Patient has not been seen since 2022 will need in person appointment for further refills [facility] 36on 12-07-2024 36 Patient has not been seen since 2022 [facility] Family Medicine Office/Clini c Noteon 11-16-2024 Family Medicine Office/Clinic Note Family Medicine Office/Clinic Note HPI Staff Kaila is a 43 year old female presenting for acute visit Onset: 3 days ago Fevers: no Sinus congestion: very little lingering Sneezing: no Ear pain: left ear Ear itching, popping, fullness, ringing, muffled hearing: fullness in ear and throbbing pain , ringing Ear drainage: yes normal for pt Swollen nodes: Sore throat: only left side Ear pain worse with chewing: no Itching: yes Difficulty hearing: yes Did put peroxide down ear yesterday History of Present Illness pt c/o ear pain and fullness Review of Systems PHQ Score Initial Depression Screen Score: 0 SCORE Physical Exam Vitals & Measurements T: 37.1 ???C(Tympanic) HR: 84(Peripheral) RR: 18 BP: 122/80 SpO2: 99% HT: 165.1 cm HT: 65 in WT: 116.0 kg WT: 255.736 lb BMI: 42.56 General: alert, no acute distress ENMT: oral mucosa moist, no pharyngeal erythema or exudate, ALEXEY canal impacted with cerumen. right canal redness noted Cardiovascular: regular rate and rhythm, normal peripheral perfusion Respiratory: Lungs CTA, respirations non labored Extremities: no deformity, no trauma Neurological: oriented x 4, LOC appropriate for age, CN II-XII intact, motor strength equal & normal bilaterally, speech normal Assessment/Plan 1. Otitis media (H66.90: Otitis media, unspecified, unspecified ear) will send augmentin Ordered: amoxicillin-clavulanat e, = 1 tab(s), Oral, q12hr, X 7 day(s), # 14 tab(s), Refills(s) 0, Pharmacy: [facility][id number], 165.1, cm, 11/15/24 15:29:00 EDT, Height/Length Dosing, 116, kg, 11/15/24 15:29:00 EDT, Weight Dosing 2. Ear pain (H92.09: Otalgia, unspecified ear) augmentin sent in. pt to use debrox and return for ear irrigation in 7-10 days Ordered: amoxicillin-clavulanat e, = 1 tab(s), Oral, q12hr, X 7 day(s), # 14 tab(s), Refills(s) 0, Pharmacy: [id number], 165.1, cm, 11/15/24 15:29:00 EDT, Height/Length Dosing, 116, kg, 11/15/24 15:29:00 EDT, Weight Dosing triamcinolone, 40 mg = 1 mL, Injection, IntraARTICULAR, Once, Stop date 11/15/24 15:47:00 EDT, Routine, Start date 11/15/24 15:47:00 EDT, 11/15/24 15:47:00 EDT 3. BMI 40.0-44.9, adult (Z68.41: Body mass index [BMI] 40.0-44.9, adult) BMI education given Ordered: amoxicillin-clavulanat e, = 1 tab(s), Oral, q12hr, X 7 day(s), # 14 tab(s), Refills(s) 0, Pharmacy: [id number], 165.1, cm, 11/15/24 15:29:00 EDT, Height/Length Dosing, 116, kg, 11/15/24 15:29:00 EDT, Weight Dosing 4. Non-smoker (Z78.9: Other specified health status) continue not smoking Ordered: amoxicillin-clavulanat e, = 1 tab(s), Oral, q12hr, X 7 day(s), # 14 tab(s), Refills(s) 0, Pharmacy: [facility]/pharmacy #[id number], 165.1, cm, 11/15/24 15:29:00 EDT, Height/Length Dosing, 116, kg, 11/15/24 15:29:00 EDT, Weight Dosing Follow-up No qualifying data available Problem List/Past Medical History Ongoing Anemia Anxiety Autonomic dysfunction BMI 40.0-44.9, adult Disorder of autonomic nervous system Dizzy spells Epigastric pain Facial tingling Facial twitching Fibromyalgia History of kidney stones Hot flashes Left upper quadrant pain Low back pain with sciatica Migraines Mixed incontinence urge and stress Otitis media Paroxysmal tachycardia Pressure in head Right upper quadrant pain Sinus tachycardia Sleep disorder Tunnel vision Vitamin D deficiency Weight gain Historical Chronic low back pain [...] bone, Other, Surgery, Total bilateral salpingectomy. Medications Augmentin 875 mg oral tablet, 1 tab(s), Oral, q12hr Metoprolol tartrate 50 mg Tab, 50 mg= 1 tab(s), Oral, BID tizanidine 4 mg oral capsule, See Instructions Vitamin D 50,000 intl units (1.25 mg) oral capsule, 18220 International_Unit= 1 cap(s), Oral, qWeek Allergies No Known Allergies Social History Alcohol - Low Risk, 10/09/2020 Current. Wine. 1-2 times per week., 11/15/2024 Other Substance Abuse - Denies Substance Abuse, 12/09/2021 Never., 11/15/2024 Tobacco - Denies Tobacco Use, 10/22/2022 Never (less than 100 in lifetime) Tobacco Use:., 11/15/2024 Family History Bipolar: Mother. Cervical cancer: Mother. Diabetes mellitus type 2: Mother. Heart disease: Father. High cholesterol: Father. Hypertension: Father. Kidney disease: Mother. Senile osteoporosis: Father. Thyroid disease: Brother. Immunizations Vaccine Date Status SARS-CoV-2 (COVID-19) Ad26 vaccine 09/10/2020 (more content not included)... Normal [facility] Comment on above: Result Comment: Elec tronically Signed By: Cristiane Brasher\.br\Date and Time Signed: 11/16/24 14:28 EDT 36on 11-05-2024 36 Patient will need follow up appointment for further refills has not been seen since [address] [facility] Family Medicine Office/Clini c Noteon 09-12-2024 Family [...] tunnel vision and muscle spasm to bilateral anabaptism and sharp pain to right anabaptism. Tongue/whole mouth felt like it had an [...] referral to [facility] sent Ordered: [facility] External Ambulatory Referral 2. Facial tingling (R20.2: Paresthesia of skin) pt had episode when she had facial tingling, and in her mouth. she states it felt like she put a battery to her tongue. Ordered: [facility] External Ambulatory Referral 3. Pressure in head (R51.9: Headache, unspecified) c/o constant pressure of her head. Ordered: [facility] External Ambulatory Referral 4. 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 so much that it made her glasses move up and down. referral to neurology sent Ordered: [facility] External Ambulatory Referral 5. Right upper quadrant [...] Daily, # 30 tab(s), Refills(s) 0, Pharmacy: [id number], 165.1, cm, 12/19/23 13:17:00 EDT, Height/Length Dosing, 114.6, kg, 12/19/23 13:17:00 EDT, Weight Dosing [facility] External Ambulatory Referral 9. Non-smoker (Z78.9: Other specified health status) continue not smoking Ordered: meloxicam, 15 mg = 1 tab(s), Oral, Daily, # 30 tab(s), Refills(s) 0, Pharmacy: [id number], 165.1, cm, 12/19/23 13:17:00 EDT, Height/Length Dosing, 114.6, kg, 12/19/23 13:17:00 EDT, Weight Dosing Orders: acetaminophen-hydrocod one, 1 tab(s), Oral, Bedtime for pain, 20 tab(s), Refill(s) 0, [id number], 165.1, cm, 12/19/23 13:17:00 EDT, Height/Length Dosing, 114.6, kg, 12/19/23 13:17:00 EDT, Weight Dosing methocarbamol, See Instructions, TAKE 1 TABLET BY MOUTH EVERY 6 HOURS NEEDED FOR PAIN, # 30 tab(s), Refills(s) 0, Pharmacy: [facility]/pharmacy #[id number], 165.1, cm, 12/19/23 13:17:00 EDT, Height/Length [...] Metoprolol tart (more content not included)... Normal [facility] Comment on above: Result Comment: Elec tronically Signed By: Cristiane Brasher\.br\Date and Time Signed: 09/12/24 13:11 EST Ambulatory [...] for choosing us for your care. Normal [facility] ED Note-Physicianon 01-03-20 24 ED Note-Physician [id number]#1.00 TIFF Normal [facility] RAD - MRI Reporton 4 RAD - MRI Report [id number]#1.0 0TIFF Normal [facility] RAD - MRI Report [id number]#1.0 0TIFF Normal [facility] RAD - MRI Report [id number]#1.00 TIFF Normal [facility] RAD - MRI Report [id number]#1.00 TIFF Normal [facility] RAD - MRI Report [id number]#1.0 0TIFF Normal [facility] RAD - MRI Report [id number]#1.00 TIFF Normal [facility] Physician Orderon 12-22-2023 Physician Order [id number]#1.00 TIFF Normal [facility] Provider Letteron 12-21-2023 Provider Letter December 21, 2023 KAILA VASQUEZ [address] [place] [id number] : 1980 To Whom It May Concern, Please excuse above patient from work. Date of Illness: From: 12/19/2023 To: 12/21/2023 May Return to Work On: 12/22/2023 Sincerely, JERMAIN Stewart-C [address] [address] [facility] Lab Reportson 12-20-2023 Lab Reports [id number]#1.00 TIFF Normal [facility] Physician Orderon 12-20-2023 Physician Order [id number]#1.00 TIFF Normal [facility] RAD - MISCon 12-20-2023 RAD - MISC [id number]#1.00 TIFF Normal [facility] Ambulatory Visit Summaryon 0 12-19-2023 Ambulatory Visit [...] sciatica BMI 40.0-44.9, adult Non-smoker Pickup at [facility]/pharmacy #[id number] New meloxicam (meloxicam 15 mg Tab) 1 Tablets By Mouth Every day Low back pain with sciatica BMI 40.0-44.9, adult Non-smoker Pickup at [facility]/pharmacy #[id number] New methylPREDNISolone (Medrol 4 mg Tab) 1 Packets By Mouth As Directed Low back pain with sciatica BMI 40.0-44.9, adult Non-smoker Duration: 6 Days as directed on package labeling Pickup at [facility]/pharmacy #[id number] Unchanged metoprolol (Metoprolol tartrate 50 mg Tab) 1 Tablets By Mouth 2 times a day Pharmacy Information [facility]/pharmacy #[id number]: [address], [place] [phone] Medications and Immunizations Administered Given ketorolac 30 [...] for choosing us for your care. Normal [facility] Consenton 12-19-2023 Consent [id number]#1.00 TIFF Normal [facility] Family Medicine Office/Clini c Noteon 12-19-2023 Family [...] labs and she will have done at [facility] she works there Health Maintenance UTD: Colonoscopy: 2021 normal Mammogram: Has order Pelvic/Pap: 12/2023 normal Acute: Current issues/complaints: Pain characteristics: Pain location: low back pain radiating to bilateral hips sciatica down both legs Intensity:10 Onset: 1 day ago Pt states when [...] sit, lay down. Had x-ray done at [facility] for spine over a year or [...] Bedtime for spasm, 20 cap(s), Refill(s) 0, [facility]/pharmacy #[id number], 165.1, cm, 12/19/23 13:17:00 EDT, Height/Length Dosing, 114.6, kg, 12/19/23 13:17:00 EDT, Weight Dosing ketorolac, 30 mg = 1 mL, Injection, IntraMuscular, Once, Stop date 12/19/23 13:35:00 EDT, Routine, Start date 12/19/23 13:35:00 EDT, 12/19/23 13:35:00 EDT meloxicam, 15 mg = 1 tab(s), Oral, Daily, # 30 tab(s), Refills(s) 0, Pharmacy: [facility]/pharmacy #[id number], 165.1, cm, 12/19/23 13:17:00 EDT, Height/Length Dosing, 114.6, kg, 12/19/23 13:17:00 EDT, Weight Dosing methylPREDNISolone, = 1 packet(s), Oral, As Directed, as directed on package labeling, X 6 day(s), # 21 tab(s), Refills(s) 0, Pharmacy: [facility]/pharmacy #[id number], 165.1, cm, 12/19/23 13:17:00 EDT, Height/Length Dosing, 114.6, kg, 12/19/23 13:17:00 EDT, Weight Dosing 2. BMI 40.0-44.9, adult (Z68.41: Body mass index [BMI] 40.0-44.9, adult) BMI education complete Ordered: cyclobenzaprine, 15 mg, 1 cap(s), Oral, Bedtime for spasm, 20 cap(s), Refill(s) 0, [facility]/pharmacy #[id number], 165.1, cm, 12/19/23 13:17:00 EDT, Height/Length Dosing, 114.6, kg, 12/19/23 13:17:00 EDT, Weight Dosing ketorolac, 30 mg = 1 mL, Injection, IntraMuscular, Once, Stop date 12/19/23 13:35:00 EDT, Routine, Start date 12/19/23 13:35:00 EDT, 12/19/23 13:35:00 EDT meloxicam, 15 mg = 1 tab(s), Oral, Daily, # 30 tab(s), Refills(s) 0, Pharmacy: [facility]/pharmacy #[id number], 165.1, cm, 12/19/23 13:17:00 EDT, Height/Length Dosing, 114.6, kg, 12/19/23 13:17:00 EDT, Weight Dosing methylPREDNISolone, = 1 packet(s), Oral, As Directed, as directed on package labeling, X 6 day(s), # 21 tab(s), Refills(s) 0, Pharmacy: [facility]/pharmacy #[id number], 165.1, cm, 12/19/23 13:17:00 EDT, Height/Length Dosing, 114.6, kg, 12/19/23 13:17:00 EDT, Weight Dosing 3. Non-smoker (Z78.9: Other specified health status) continue not smoking Ordered: cyclobenzaprine, 15 mg, 1 cap(s), Oral, Bedtime for spasm, 20 cap(s), Refill(s) 0, [facility]/pharmacy #[id number], 165.1, cm, 12/19/23 13:17:00 EDT, Height/Length Dosing, 114.6, kg, 12/19/23 13:17:00 EDT, Weight Dosing ketorolac, 30 mg = 1 mL, Injection, IntraMuscular, Once, Stop date 12/19/23 13:35:00 EDT, Routine, Start date 12/19/23 13:35:00 EDT, 12/19/23 13:35:00 EDT meloxicam, 15 mg = 1 tab(s), Oral, Daily, # 30 tab(s), Refills(s) 0, Pharmacy: [facility]/pharmacy #[id number], 165.1, cm, 12/19/23 13:17:00 EDT, Height/Length Dosing, 114.6, kg, 12/19/23 13:17:00 EDT, Weight Dosing methylPREDNISolone, = 1 packet(s), Oral, As Directed, as directed on package labeling, X 6 day(s), # 21 tab(s), Refills(s) 0, Pharmacy: [facility]/pharmacy #[id number], 165.1, cm, 12/19/23 13:17:00 EDT, Height/Length Dosing, 114.6, kg, 12/19/23 13:17:00 EDT, Weight Dosing Follow-up No qualifying data available Problem List/Past Medical History Ongoing Anemia Anxiety (more content not included)... Normal [facility] Comment on above: Result Comment: Elec tronically Signed By: Cristiane Brasher\.leia\Date and Time Signed: 12/19/23 13:59 EDT Physician Orderon 12-19-2023 Physician Order [id number]#1.00 TIFF Normal [facility] MRI BRAIN WO/W IVCONon 10-14 MRI BRAIN [...] cord. No mass or pathologic intradural enhancement. [employer] Head: NARCISO Transcribe Date/Time: Oct 14 2022 8:43P Dictated by : UNIQUE ANDERSON MD This examination was interpreted and the report reviewed and electronically signed by: UNIQUE ANDERSON MD on Oct 14 2022 8:51PM EST [id number] Normal [facility] MRI CERVICAL SPINE WO/W IVCO Non [...] cord. No mass or pathologic intradural enhancement. [employer] Head: NARCISO Transcribe Date/Time: Oct 14 2022 8:43P Dictated by : UNIQUE ANDERSON MD This examination was interpreted and the report reviewed and electronically signed by: UNIQUE ANDERSON MD on Oct 14 2022 8:51PM EST [id number] Normal [facility] CBC AUTO DIFFon 09-02-2022 BASO # 0.1 103/ul Normal 0.0-0.1 [facility] Comment on above: Performed By: #### C MP, TSH, HSTROPN #### [facility] [address] [place] [address] Dr. Christos Fallon Basophils/100 WBC (Bld) 0.5 % Normal 0.2-2.0 [facility] Comment on above: Performed By: #### C MP, TSH, HSTROPN #### [facility] [address] [address] [address] Christos Fallon EO # 0.2 103/ul Normal 0.0-0.7 [facility] Comment on above: Performed By: #### C MP, TSH, HSTROPN #### [facility] [address] [address] [address] Christos Fallon Eosinophils/100 WBC (Bld) 2.3 % Normal 0.9-7.0 [facility] Comment on above: Performed By: #### C MP, TSH, HSTROPN #### [facility] [address] [place] [address] Dr. Christos Fallon Erythrocyte distribution width (RBC) [Ratio] 13.0 % Normal 11.0-15.0 [facility] Comment on above: Performed By: #### C MP, TSH, HSTROPN #### [facility] [address] [place] [address] Dr. Christos Fallno Hematocrit (Bld) [Volume fraction] 43.0 % Normal 36.0-48.0 [facility] Comment on above: Performed By: #### C MP, TSH, HSTROPN #### [facility] [address] [place] [address] Dr. Christos Fallon Hemoglobin (Bld) [Mass/Vol] 13.9 g/dL Normal 12.0-16.0 [facility] Comment on above: Performed By: #### C MP, TSH, HSTROPN #### [facility] [address] [place] [address] Dr. Christos Fallon IG # 0.03 10e3/ul Normal 0.00-0.03 [facility] Comment on above: Performed By: #### C MP, TSH, HSTROPN #### [facility] [address] [place] [address] Dr. Christos Fallon IG % 0.3 % Normal 0.0-0.5 [facility] Comment on above: Performed By: #### C MP, TSH, HSTROPN #### [facility] [address] [place] [address] Dr. Christos Fallon LYMPH # 2.8 103/ul Normal 1.2-3.8 [facility] Comment on above: Performed By: #### C MP, TSH, HSTROPN #### [facility] [address] [place] [address] Dr. Christos Fallon Lymphocytes/100 WBC (Bld) 29.6 % Normal 20.5-60.0 [facility] Comment on above: Performed By: #### C MP, TSH, HSTROPN #### [facility] [address] [place] [address] Dr. Christos Fallon MANUAL DIFF REQ NO Normal [facility] Comment on above: Performed By: #### C MP, TSH, HSTROPN #### [facility] [address] [place] [address] Dr. Christos Fallon MCH (RBC) [Entitic mass] 34.8 pg Critically high 26.7-34.0 [facility] Comment on above: Performed By: #### C MP, TSH, HSTROPN #### [facility] [address] [place] [address] Dr. Christos Fallon MCHC (RBC) [Mass/Vol] 32.3 g/dL Normal 29.9-35.2 [facility] Comment on above: Performed By: #### C MP, TSH, HSTROPN #### [facility] [address] [place] [address] Dr. Christos Fallon MCV (RBC) [Entitic vol] 107.5 fL Critically high 81.0-99.0 [facility] Comment on above: Performed By: #### C MP, TSH, HSTROPN #### [facility] [address] [place] [address] Dr. Christos Fallon MONO # 0.7 103/ul Normal 0.3-0.8 [facility] Comment on above: Performed By: #### C MP, TSH, HSTROPN #### [facility] [address] [place] [address] Dr. Christos Fallon Monocytes/100 WBC (Bld) 7.7 % Normal 1.7-12.0 [facility] Comment on above: Performed By: #### C MP, TSH, HSTROPN #### [facility] [address] [place] [address] Dr. Christos Fallon NEUT # 5.7 103/ul Normal 1.4-6.5 [facility] Comment on above: Performed By: #### C MP, TSH, HSTROPN #### [facility] [address] [place] [address] Dr. Christos Fallon Neutrophils/100 WBC (Bld) 59.6 % Normal 43.0-75.0 [facility] Comment on above: Performed By: #### C MP, TSH, HSTROPN #### [facility] [address] [address] [address] Christos Fallon Platelet mean volume (Bld) [Entitic vol] 9.9 fL Normal 9.5-13.5 [facility] Comment on above: Performed By: #### C MP, TSH, HSTROPN #### [facility] [address] [address] [address] Christos Fallon PLT 309 103/ul Normal 150-450 [facility] Comment on above: Performed By: #### C MP, TSH, HSTROPN #### [facility] [address] [address] [address] Christos Fallon RBC 4.00 106/ul Critically low 4.20-5.40 [facility] Comment on above: Performed By: #### C MP, TSH, HSTROPN #### [facility] [address] [address] [address] Christos Fallon WBC 9.6 103/ul Normal 4.0-11.0 [facility] Comment on above: Performed By: #### C MP, TSH, HSTROPN #### [facility] [address] [place] [address] Dr. Christos Fallon D-DIMERon 09-02-2022 D-DIMER 0.28 mg/L FEU Normal <=0.[address] [facility] Comment on above: Performed By: #### C MP, TSH, HSTROPN #### [facility] [address] [address] [address] Christos Fallon D-DIMER COMMENTS SEE BELOW Normal [facility] Comment on above: Result Comment: [...] MP, TSH, HSTROPN #### [facility] [address] [address] [address] Christos Fallon PROF 14(COMP METB)on 023 Albumin [Mass/Vol] 3.8 g/dL Normal 3.4-5.0 [facility] Comment on above: Performed By: #### C MP, TSH, HSTROPN #### [facility] [address] [place] [address] Dr. Christos Fallon Albumin/Globulin [Mass ratio] 1.2 {ratio} Normal [facility] Comment on above: Performed By: #### C MP, TSH, HSTROPN #### [facility] [address] [place] [address] Dr. Christos Fallon ALP [Catalytic activity/Vol] 85 U/L Normal 46-116 [facility] Comment on above: Performed By: #### C MP, TSH, HSTROPN #### [facility] [address] [place] [address] Dr. Christos Fallon ALT [Catalytic activity/Vol] 39 U/L Normal 14-59 [facility] Comment on above: Performed By: #### C MP, TSH, HSTROPN #### [facility] [address] [place] [address] Dr. Christos Fallon Anion gap [Moles/Vol] 16.3 mmol/L Normal [facility] Comment on above: Performed By: #### C MP, TSH, HSTROPN #### [facility] [address] [place] [address] Dr. Christos Fallon AST [Catalytic activity/Vol] 19 U/L Normal 15-37 [facility] Comment on above: Performed By: #### C MP, TSH, HSTROPN #### [facility] [address] [place] [address] Dr. Christos Fallon Bilirubin [Mass/Vol] 0.4 mg/dL Normal 0.2-1.0 [facility] Comment on above: Performed By: #### C MP, TSH, HSTROPN #### [facility] [address] [place] [address] Dr. Christos Fallon Calcium [Mass/Vol] 9.2 mg/dL Normal 8.5-10.1 [facility] Comment on above: Performed By: #### C MP, TSH, HSTROPN #### [facility] [address] [place] [address] Dr. Christos Fallon Chloride [Moles/Vol] 101 mmol/L Normal 98-107 [facility] Comment on above: Performed By: #### C MP, TSH, HSTROPN #### [facility] [address] [place] [address] Dr. Christos Fallon CO2 [Moles/Vol] 24.9 mmol/L Normal 21.0-32.0 [facility] Comment on above: Performed By: #### C MP, TSH, HSTROPN #### [facility] [address] [place] [address] Dr. Christos Fallon Creatinine [Mass/Vol] 0.83 mg/dL Normal 0.55-1.02 [facility] Comment on above: Performed By: #### C MP, TSH, HSTROPN #### [facility] [address] [place] [address] Dr. Christos Fallon EGFR-AF EMIRATI >60 Normal >=60 [facility] Comment on above: Performed By: #### C MP, TSH, HSTROPN #### [facility] [address] [place] [address] Dr. Christos Fallon EGFR-NON AF EMIRATI >60 Normal >=60 [facility] Comment on above: Performed By: #### C MP, TSH, HSTROPN #### [facility] [address] [place] [address] Dr. Christos Fallon Globulin (S) [Mass/Vol] 3.2 g/dL Normal [facility] Comment on above: Performed By: #### C MP, TSH, HSTROPN #### [facility] [address] [place] [address] Dr. Christos Fallon Glucose [Mass/Vol] 142 mg/dL Critically high 74-106 [facility] Comment on above: Performed By: #### C MP, TSH, HSTROPN #### [facility] [address] [place] [address] Dr. Christos Fallon Potassium [Moles/Vol] 3.2 mmol/L Critically low 3.5-5.1 [facility] Comment on above: Performed By: #### C MP, TSH, HSTROPN #### [facility] [address] [place] [address] Dr. Christos Fallon Protein [Mass/Vol] 7.0 g/dL Normal 6.4-8.2 [facility] Comment on above: Performed By: #### C MP, TSH, HSTROPN #### [facility] [address] [place] [address] Dr. Christos Fallon Sodium [Moles/Vol] 139 mmol/L Normal 136-145 [facility] Comment on above: Performed By: #### C MP, TSH, HSTROPN #### [facility] [address] [place] [address] Dr. Christos Fallon Urea nitrogen [Mass/Vol] 10.0 mg/dL Normal 7.0-18.0 [facility] Comment on above: Performed By: #### C MP, TSH, HSTROPN #### [facility] [address] [place] [address] Dr. Christos Fallon Urea nitrogen/Creatinine [Mass ratio] 12.0 mg/mg Normal [facility] Comment on above: Performed By: #### C MP, TSH, HSTROPN #### [facility] [address] [place] [address] Dr. Christos Fallon PROTIMEon 09-02-2022 INR Coag (PPP) [Relative time] {INR} Normal [facility] Comment on above: Performed By: #### C MP, TSH, HSTROPN #### [facility] [address] [place] [address] Dr. Christos Fallon INR GUIDELINES SEE BELOW Normal [facility] Comment on above: Result Comment: GUALBERTO RED INR: 2.0 - 3.0 CONDITIONS NOT LISTED BELOW 2.5 - 3.5 FOR PROSTHETIC HEART VALVE REPLACEMENT 2.5 - 3.5 RECURRENT THROMBOSIS Performed By: #### C MP, TSH, HSTROPN #### [facility] [address] [address] [address] Christos Fallon PT Coag (PPP) [Time] 9.7 s Normal 9.0-11.6 [facility] Comment on above: Performed By: #### C MP, TSH, HSTROPN #### [facility] [address] [place] [address] Dr. Christos Fallon PTTon 09-02-2022 aPTT Coag (Bld) [Time] 25.9 s Normal 22.3-36.2 [facility] Comment on above: Performed By: #### C MP, TSH, HSTROPN #### [facility] [address] [place] [address] Dr. Christos Fallon TROPONIN, HIGH SENSITIVITYon 09-02-2022 HSTROP <4.0 Normal 4.0-51.3 [facility] Comment on above: Result Comment: CUT- OFF POINTS HAVE BEEN ESTABLISHED BASED ON THE FOURTH UNIVERSAL DEFINITIONS OF MYOCARDIAL INFARCTION. THE UPPER REFERENCE LIMIT (URL) OF TROPONIN, DEFINED THE 99TH PERCENTILE OF cTnI DISTRIBUTION IN A REFERENCE POPULATION, HAS BEEN CONFIRMED THE DECISION THRESHOLD FOR CO DIAGNOSIS. Performed By: #### C MP, TSH, HSTROPN #### [facility] [address] [place] [address] Dr. Christos Fallon TSHon 09-02-2022 TSH 0.813 uIU/mL Normal 0.358-3.[address] [facility] Comment on above: Performed By: #### C MP, TSH, HSTROPN #### [facility] [address] [place] [address] Dr. Christos Fallon XR CHEST 1 Von [...] by: LEEANNE MON Date: 2022-09-02 15:09 Normal [facility] CNOVon 08-24-2022 CNOV Office Visit (BOOGIE ) KAILA VASQUEZ ([id number]) 1980 F Date Time Provider Department 08/24/22 2:00 PM JANELL SY During your visit today, we recorded the following information about you: Pulse Blood pressure Weight Height 88/minute 112/73 112.9 kg 1.626 m Janell Sy MD 08/24/2022 2:17 PM Signed [facility] [place] SECTION OF REGIONAL CARDIOLOGY OUTPATIENT VISIT DATE August 24, 2022 OUTPATIENT VISIT TYPE NEW PRIMARY CARE PHYSICIAN: To use this Smartlink, specify the provider ID whose address you want to display, e.g., .[email or web address][1 (where 1 is the provider ID). A written report of the findings and recommendations will be sent to the requesting provider via shared medical record or via [facility]. Patient is being seen at the [...] Cardiac work-up includes: Echocardiogram on 05/19/[address] [facility] showed normal ejection fraction. No valvular [...] ECG COMPLETE 4. Obesity, morbid, BMI 40.0-49.9 (FORMERLY [facility]) E66.01 ECG COMPLETE 5. SVT (supraventricular tachycardia) ([facility]ERLY [facility]) I47.1 6. Chronic fatigue R53.82 [...] apnea) Palpitatio (more content not included)... Normal [facility] ECG COMPLETEon 08-24-2022 ECG COMPLETE Ventricular Rate : 8 4 BPM Atrial Rate : 84 BPM P-R Interval : 166 ms QRS Duration : 92 ms Q-T Interval : 358 ms QTC Calculation(Bazett) : 423 ms Calculated P [place] : 60 degrees Calculated R [place] : 45 degrees Calculated T [place] : 45 degrees NORMAL SINUS RHYTHM INCREASED R/S RATIO IN V1, CONSIDER EARLY TRANSITION OR POSTERIOR INFARCT ABNORMAL ECG Confirmed by MEERA BOYD M.D. ([id number]) on 08/28/2022 3:03:10 PM NAME : KAILA VASQUEZ PID : [id number] : 1980 Gender : Female Race : ORD : [id number] Procedure Date : Aug 24 2022 13:56:02 [...] JANELL SY Acquired by : Jose browning [facility] CNTHERAPYon 08-12-2022 CNTHERAPY OT/PT/Speech Visit (PTAMCF) SYDNIEKAILA Emily ([id number]) 1980 F Date Time Provider Department 08/12/22 2:45 PM SEJALCARMEN DAVIS [facility] Date Time Provider Department Center 08/12/2022 2:45 PM [id number], KARA [facility] Reason for Visit: Physical Therapy [503] Primary [...] % (flush) 10 mL (BD POSIFLUSH) Normal [facility] CNTHERAPYon 08-05-2022 CNTHERAPY OT/PT/Speech Visit (PTAMCF) SYDNIEKAILA ([id number]) 1980 F Date Time Provider Department 08/05/22 9:15 AM CARMEN JOHNSON [facility] Date Time Provider Department Center 08/05/2022 9:15 AM [id number], KARA [facility] Reason for Visit: PT Eval [747] [...] % (flush) 10 mL (BD POSIFLUSH) Normal [facility] Covid-19 PCR (CVDTBH)on 07-09 SARS-CoV-2 (COVID-19) RNA LEROY+probe Ql (Unsp spec) Not detected Normal NOT DETECTED [facility] Comment [...] this test is supported by the [place] of Health and Human Service's declaration that [...] #### C VDAGA #### [facility] [address] [place] [address] Dr. Christos Fallon 25(OH)D3 [facility] 2021 25-hydroxyvitamin D3 [Mass/Vol] 15.8 ng/mL Low 31.0-80.0 [facility] Comment on above: Order Comment: Speci men Type: BLOOD SPECIMENOrdering Facility: [facility] Address: [address] [place] [address] Result Comment: Clas sification of 25 [place] Vitamin D status: Deficiency/Insufficiency: < or = 30 ng/ml. Sufficiency/Optimal Levels: 31-80 ng/mL Toxicity: > 100 ng/mL. Test performed by chemiluminescent immunoassay. Performed By: #### 1 989-3 ####[facility] LABCLIA [id number] [place] [address] [place] ESEQUIEL BY IFA WITH REFLEXon ESEQUIEL PATTERN Nuclear fine speckled Normal [facility] Comment on above: Order Comment: Speci men Type: BLOOD SPECIMENOrdering Facility: [facility] Address: [address] [place] [address] Performed By: #### 2 9374-6, 08606-5, 61824-1, 12095-2, 74446-0, ANAIFR, 18961-9, 14024-5, 99084-6, 32246-5 ####[facility] LABCLIA [id number] [place] [address] [place] ESEQUIEL TITER 1:160 Normal [facility] Comment on above: Order Comment: Speci men Type: BLOOD SPECIMENOrdering Facility: [facility] Address: [address] [place] [address] Performed By: #### 2 9374-6, 48358-9, 92683-8, 69541-0, 33091-0, ANAIFR, 95890-0, 02643-8, 36132-9, 85247-9 ####[facility] LABCLIA [id number] [address] [address] [place] Nuclear Ab IF (S) [Titer] Positive Abnormal Negative [facility] Comment on above: Order Comment: Speci men Type: BLOOD SPECIMENOrdering Facility: [facility] Address: [address] [id number] Result Comment: Anti -nuclear antibody test is used as an aid in diagnosis of systemic autoimmune diseases. Where positive and clinically warranted, follow-up using disease-specific testing is recommended. Low positive titers are not uncommon with advanced age, certain chronic infections, and malignancies among others. Test methodology: Indirect fluorescence immunoassay (IFA) using HEp-2 cells. Performed By: #### 2 9374-6, 87065-9, 45667-7, 90068-9, 17293-0, ANAIFR, 26693-0, 13055-8, 98341-3, 61910-3 ####[facility] LABCLIA [id number] [address] [address] [place] Basic metabolic 2000 panelon 07-07-2022 Anion gap [Moles/Vol] 13 mmol/L Normal 9-18 [facility] Comment on above: Order Comment: Speci men Type: BLOOD SPECIMENOrdering Facility: [facility] Address: [address] [place] [address] Performed By: #### 2 4321-2 ####[facility] LABCLIA [id number] [place] [address] [place] Calcium [Mass/Vol] 9.3 mg/dL Normal 8.5-10.2 [facility] Comment on above: Order Comment: Speci men Type: BLOOD SPECIMENOrdering Facility: [facility] Address: [address] [address] Performed By: #### 2 4321-2 ####[facility] LABCLIA [id number] [place] [address] [place] Chloride [Moles/Vol] 102 mmol/L Normal 97-105 [facility] Comment on above: Order Comment: Speci men Type: BLOOD SPECIMENOrdering Facility: [facility] Address: [address] [address] Performed By: #### 2 4321-2 ####[facility] LABCLIA [id number] [place] [address] [place] CO2 [Moles/Vol] 23 mmol/L Normal 22-30 [facility] Comment on above: Order Comment: Speci men Type: BLOOD SPECIMENOrdering Facility: [facility] Address: [address] [place] [address] Performed By: #### 2 4321-2 ####[facility] LABIA [id number] [place] [address] [place] Creatinine [Mass/Vol] 0.72 mg/dL Normal 0.58-0.96 [facility] Comment on above: Order Comment: Speci men Type: BLOOD SPECIMENOrdering Facility: [facility] Address: [address] [place] [address] Performed By: #### 2 4321-2 ####[facility] LABIA [id number] [place] [address] [place] ESTIMATED GLOMERULAR FILTRATION RATE 109 mL/min/1.73m??? Normal >=60 [facility] Comment on above: Order Comment: Speci men Type: BLOOD SPECIMENOrdering Facility: [facility] Address: [address] [place] [address] Result Comment: Dina mated Glomerular Filtration Rate [...] By: #### 2 4321-2 ####[facility] LABCLIA [id number] [place] [address] [place] Glucose [Mass/Vol] 98 mg/dL Normal 74-99 [facility] Comment on above: Order Comment: Bryan hernández Type: BLOOD SPECIMENOrdering Facility: [facility] Address: [address] [place] [address] Result Comment: The [place] Diabetes [employer] (ADA) provides guidance for cutoff [...] Standards of Medical Care in Diabetes 2016, [place] [employer]. Diabetes Care. 2016.39(Suppl 1). Performed By: #### 2 4321-2 ####[facility] LABCLIA [id number] [place] [address] [place] Potassium [Moles/Vol] 4.1 mmol/L Normal 3.7-5.1 [facility] Comment on above: Order Comment: Bryan hernández Type: BLOOD SPECIMENOrdering Facility: [facility] Address: [address] [place] [address] Performed By: #### 2 4321-2 ####[facility] LABCL[facility] [id number] [address] [address] [place] Sodium [Moles/Vol] 138 mmol/L Normal 136-144 [facility] Comment on above: Order Comment: Speci men Type: BLOOD SPECIMENOrdering Facility: [facility] Address: [address] [address] Performed By: #### 2 4321-2 ####[facility] LABCLIA [id number] [place] [address] [place] Urea nitrogen [Mass/Vol] 8 mg/dL Normal 7-21 [facility] Comment on above: Order Comment: Speci men Type: BLOOD SPECIMENOrdering Facility: [facility] Address: [address] [address] Performed By: #### 2 4321-2 ####[facility] LABCL[facility] [id number] [place] [address] [place] Anion gap [Moles/Vol] 13 mmol/L 9 - 18 mmol/L [facility] Calcium [Mass/Vol] 9.3 mg/dL 8.5 - 10. 2 mg/dL [facility] Chloride [Moles/Vol] 102 mmol/L 97 - 10 5 mmol/L [facility] CO2 [Moles/Vol] 23 mmol/L 22 - 30 mmol/L [facility] Creatinine [Mass/Vol] 0.72 mg/dL 0.58 - 0.96 mg/dL [facility] Estimated Glomerular Filtration Rate 109 mL/min/1.73m >=60 mL/min/1.73m [facility] Glucose [Mass/Vol] 98 mg/dL 74 - 99 mg/dL [facility] Potassium [Moles/Vol] 4.1 mmol/L 3.7 - 5.1 mmol/L [facility] Sodium [Moles/Vol] 138 mmol/L 136 - 144 mmol/L [facility] Urea nitrogen [Mass/Vol] 8 mg/dL 7 - 21 mg/dL [facility] CBC W Auto Differential pane l (Bld)on 07-07-2022 Basophils (Bld) [#/Vol] 0.04 10*3/uL Normal <0.11 [facility] Comment on above: Order Comment: Speci men Type: BLOOD SPECIMENOrdering Facility: [facility] Address: [address] [address] Performed By: #### 5 7021-8 ####[facility] LABCLIA [id number] [place] [address] [place] Basophils/100 WBC (Bld) 0.5 % Normal [facility] Comment on above: Order Comment: Speci men Type: BLOOD SPECIMENOrdering Facility: [facility] Address: [address] [address] Performed By: #### 5 7021-8 ####[facility] LABCLIA [id number] [place] [address] [place] Differential cell count method Nom (Bld) Auto Normal [facility] Comment on above: Order Comment: Speci men Type: BLOOD SPECIMENOrdering Facility: [facility] Address: [address] [address] Performed By: #### 5 7021-8 ####[facility] LABIA [id number] [place] [address] [place] Eosinophils (Bld) [#/Vol] 0.29 10*3/uL Normal <0.46 [facility] Comment on above: Order Comment: Speci men Type: BLOOD SPECIMENOrdering Facility: [facility] Address: [address] [address] Performed By: #### 5 7021-8 ####[facility] LABCLIA [id number] [place] [address] [place] Eosinophils/100 WBC (Bld) 3.9 % Normal [facility] Comment on above: Order Comment: Speci men Type: BLOOD SPECIMENOrdering Facility: [facility] Address: [address] [address] Performed By: #### 5 7021-8 ####[facility] LABCLIA [id number] [place] [address] [place] Erythrocyte distribution width (RBC) [Ratio] 12.1 % Normal 11.5-15.0 [facility] Comment on above: Order Comment: Speci men Type: BLOOD SPECIMENOrdering Facility: [facility] Address: [address] [place] [address] Performed By: #### 5 7021-8 ####[facility] LABIA [id number] [place] [address] [place] Hematocrit (Bld) [Volume fraction] 43.5 % Normal 36.0-46.0 [facility] Comment on above: Order Comment: Speci men Type: BLOOD SPECIMENOrdering Facility: [facility] Address: [address] [place] [address] Performed By: #### 5 7021-8 ####[facility] LABIA [id number] [place] [address] [place] Hemoglobin (Bld) [Mass/Vol] 14.9 g/dL Normal 11.5-15.5 [facility] Comment on above: Order Comment: Speci men Type: BLOOD SPECIMENOrdering Facility: [facility] Address: [address] [place] [address] Performed By: #### 5 7021-8 ####[facility] LABIA [id number] [place] [address] [place] Immature granulocytes (Bld) [#/Vol] 0.03 10*3/uL Normal <0.10 [facility] Comment on above: Order Comment: Speci men Type: BLOOD SPECIMENOrdering Facility: [facility] Address: [address] [place] [address] Performed By: #### 5 7021-8 ####[facility] LABIA [id number] [place] [address] [place] Immature granulocytes/100 WBC (Bld) 0.4 % Normal [facility] Comment on above: Order Comment: Speci men Type: BLOOD SPECIMENOrdering Facility: [facility] Address: [address] [place] [address] Performed By: #### 5 7021-8 ####[facility] LABCLIA [id number] [place] [address] [place] Lymphocytes (Bld) [#/Vol] 1.71 10*3/uL Normal 1.00-4.00 [facility] Comment on above: Order Comment: Speci men Type: BLOOD SPECIMENOrdering Facility: [facility] Address: [address] [place] [address] Performed By: #### 5 7021-8 ####[facility] LABCLIA [id number] [place] [address] [place] Lymphocytes/100 WBC (Bld) 23.2 % Normal [facility] Comment on above: Order Comment: Speci men Type: BLOOD SPECIMENOrdering Facility: [facility] Address: [address] [place] [address] Performed By: #### 5 7021-8 ####[facility] LABCLIA [id number] [place] [address] [place] MCH (RBC) [Entitic mass] 34.1 pg High 26.0-34.0 [facility] Comment on above: Order Comment: Speci men Type: BLOOD SPECIMENOrdering Facility: [facility] Address: [address] [place] [address] Performed By: #### 5 7021-8 ####[facility] LABCLIA [id number] [place] [address] [place] MCHC (RBC) [Mass/Vol] 34.3 g/dL Normal 30.5-36.0 [facility] Comment on above: Order Comment: Speci men Type: BLOOD SPECIMENOrdering Facility: [facility] Address: [address] [address] Performed By: #### 5 7021-8 ####[facility] LABCLIA [id number] [place] [address] [place] MCV (RBC) [Entitic vol] 99.5 fL Normal 80.0-100.0 [facility] Comment on above: Order Comment: Speci men Type: BLOOD SPECIMENOrdering Facility: [facility] Address: [address] [address] Performed By: #### 5 7021-8 ####[facility] LABIA [id number] [place] [address] [place] Monocytes (Bld) [#/Vol] 0.57 10*3/uL Normal <0.87 [facility] Comment on above: Order Comment: Speci men Type: BLOOD SPECIMENOrdering Facility: [facility] Address: [address] [address] Performed By: #### 5 7021-8 ####[facility] LABIA [id number] [place] [address] [place] Monocytes/100 WBC (Bld) 7.7 % Normal [facility] Comment on above: Order Comment: Speci men Type: BLOOD SPECIMENOrdering Facility: [facility] Address: [address] Performed By: #### 5 7021-8 ####[facility] LABIA [id number] [place] [address] [place] Neutrophils (Bld) [#/Vol] 4.73 10*3/uL Normal 1.45-7.50 [facility] Comment on above: Order Comment: Speci men Type: BLOOD SPECIMENOrdering Facility: [facility] Address: [address] [place] [address] Performed By: #### 5 7021-8 ####[facility] LABCLIA [id number] [place] [address] [place] Neutrophils/100 WBC (Bld) 64.3 % Normal [facility] Comment on above: Order Comment: Speci men Type: BLOOD SPECIMENOrdering Facility: [facility] Address: [address] [place] [address] Performed By: #### 5 7021-8 ####[facility] LABCLIA [id number] [place] [address] [place] Nucleated RBC (Bld) [#/Vol] 10*3/uL Normal <0.01 [facility] Comment on above: Order Comment: Speci men Type: BLOOD SPECIMENOrdering Facility: [facility] Address: [address] [place] [address] Performed By: #### 5 7021-8 ####[facility] LABIA [id number] [place] [address] [place] Nucleated RBC/100 WBC (Bld) [Ratio] 0.0 /100 WBC Normal [facility] Comment on above: Order Comment: Speci men Type: BLOOD SPECIMENOrdering Facility: [facility] Address: [address] [place] [address] Performed By: #### 5 7021-8 ####[facility] LABIA [id number] [place] [address] [place] Platelet mean volume (Bld) [Entitic vol] 9.6 fL Normal 9.0-12.7 [facility] Comment on above: Order Comment: Speci men Type: BLOOD SPECIMENOrdering Facility: [facility] Address: [address] [place] [address] Performed By: #### 5 7021-8 ####[facility] LABCLIA [id number] [place] [address] [place] Platelets (Bld) [#/Vol] 277 10*3/uL Normal 150-400 [facility] Comment on above: Order Comment: Speci men Type: BLOOD SPECIMENOrdering Facility: [facility] Address: [address] [place] [address] Performed By: #### 5 7021-8 ####[facility] LABCLIA [id number] [place] [address] [place] RBC (Bld) [#/Vol] 4.37 10*6/uL Normal 3.90-5.20 [facility] Comment on above: Order Comment: Speci men Type: BLOOD SPECIMENOrdering Facility: [facility] Address: [address] [place] [address] Performed By: #### 5 7021-8 ####[facility] LABCLIA [id number] [place] [address] [place] WBC (Bld) [#/Vol] 7.37 10*3/uL Normal 3.70-11.00 [facility] Comment on above: Order Comment: Speci men Type: BLOOD SPECIMENOrdering Facility: [facility] Address: [address] [place] [address] Performed By: #### 5 7021-8 ####[facility] LABCLIA [id number] [place] [address] [place] Basophils (Bld) [#/Vol] 0.04 10*3/uL <0.11 k/uL [facility] Basophils/100 WBC (Bld) 0.5 % [facility] Differential cell count method Nom (Bld) Auto [facility] Eosinophils (Bld) [#/Vol] 0.29 10*3/uL <0.46 k/uL [facility] Eosinophils/100 WBC (Bld) 3.9 % [facility] Erythrocyte distribution width (RBC) [Ratio] 12.1 % 11.5 - 15.0 % [facility] Hematocrit (Bld) [Volume fraction] 43.5 % 36.0 - 46.0 % [facility] Hemoglobin (Bld) [Mass/Vol] 14.9 g/dL 11.5 - 15.5 g/dL [facility] Immature granulocytes (Bld) [#/Vol] 0.03 10*3/uL <0.10 k/uL [facility] Immature granulocytes/100 WBC (Bld) 0.4 % [facility] Lymphocytes (Bld) [#/Vol] 1.71 10*3/uL 1.00 - 4.00 k/uL [facility] Lymphocytes/100 WBC (Bld) 23.2 % [facility] MCH (RBC) [Entitic mass] 34.1 pg High 26.0 - 34.0 pg [facility] MCHC (RBC) [Mass/Vol] 34.3 g/dL 30.5 - 36.0 g/dL [facility] MCV (RBC) [Entitic vol] 99.5 fL 80.0 - 100.0 fL [facility] Monocytes (Bld) [#/Vol] 0.57 10*3/uL <0.87 k/uL [facility] Monocytes/100 WBC (Bld) 7.7 % [facility] Neutrophils (Bld) [#/Vol] 4.73 10*3/uL 1.45 - 7.50 k/uL [facility] Neutrophils/100 WBC (Bld) 64.3 % [facility] Nucleated RBC (Bld) [#/Vol] <0.01 k/uL [facility] Nucleated RBC/100 WBC (Bld) [Ratio] 0.0 /100 WBC [facility] Platelet mean volume (Bld) [Entitic vol] 9.6 fL 9.0 - 12.7 fL [facility] Platelets (Bld) [#/Vol] 277 10*3/uL 150 - 400 k/uL [facility] RBC (Bld) [#/Vol] 4.37 10*6/uL 3.90 - 5.2 0 m/uL [facility] WBC (Bld) [#/Vol] 7.37 10*3/uL 3.70 - 11. 00 k/uL [facility] CNOVon 07-07-2022 CNOV Office Visit ([facility] ) KAILA VASQUEZ ([id number]) 1980 F Date Time Provider Department 07/07/22 8:00 AM GLENROY SYED During your visit today, we recorded the following information about you: Pulse Blood pressure Weight Height 82/minute 134/88 112 kg 1.626 m Glenroy Syed APRN.[employer] 07/07/2022 12:28 PM Signed [facility] Neurology New Patient Evaluation CHIEF COMPLAINT: [...] over a month. She has seen an perinatal breastfeeding assistant and was told she was having occular migraine by her metal filer. A couple times a month she gets [...] tobacco: Never (more content not included)... Normal [facility] CNPNon 07-07-2022 CNPN Telephone ([facility]) KAILA VASQUEZ ([id number]) 1980 F Date Time Provider Department 07/07/22 GLENROY SYED [facility] During your visit today, we recorded the following information about you: Cinthya Salgado 07/07/2022 8:52 AM Signed Received medical records from [facility]. Uploaded to chart and forwarded for review. Kajal Gillespie RN 07/07/2022 9:14 AM Signed Noted. Provider notified. Allergies As of Date: 07/07/2022 (Not on File) Date Reviewed: 07/07/2022 Reviewed by: Elaine Bolaños Ma - Fully Assessed Reason for Visit: Received Outside Medical Records [[id number]] Prescriptions as of 07/19/2022 - metoprolol tartrate, short acting, (LOPRESSOR) 50 mg tablet metoprolol tartrate 50 mg tablet Facility-Administered Medications as of 07/19/2022 - perflutren lipid microspheres 1.3 mL in NaCl (PF) 0.9% 10 mL injection (DEFINITY) - sodium chloride 0.9 % (flush) 10 mL (BD POSIFLUSH) Problem List As Of Date: 07/07/2022 (None) Encounter Status:Closed by CINTHYA SALGADO on 07/19/22 [facility] Centromere Ab IF Ql (S)on Centromere Ab Qn (S) <0.2 Normal <1.0 [facility] Comment on above: Order Comment: Speci men Type: BLOOD SPECIMENOrdering Facility: [facility] Address: [address] [place] [address] Result Comment: Anti -centromere antibody is used as in aid in diagnosis of systemic sclerosis. Clinical correlation is required. Test Methodology: Multiplex flow immunoassay. Performed By: #### 2 9374-6, 89670-8, 54679-8, 12777-9, 74458-3, ANAIFR, 61346-1, 54971-8, 27049-5, 00210-7 ####[facility] LABCLIA [id number] [place] [address] [place] CENTROMERE AB QUAL Negative Normal Negative [facility] Comment on above: Order Comment: Speci men Type: BLOOD SPECIMENOrdering Facility: [facility] Address: [address] [place] [address] Performed By: #### 2 9374-6, 95157-6, 01334-2, 97080-2, 67637-7, ANAIFR, 25730-9, 57182-0, 43844-6, 08012-2 ####[facility] LABCLIA [id number] [place] [address] [place] Chromatin Ab Qnon 07-07-2022 CHROMATIN AB QUAL Negative Normal Negative [facility] Comment on above: Order Comment: Speci men Type: BLOOD SPECIMENOrdering Facility: [facility] Address: [address] [place] [address] Performed By: #### 2 9374-6, 79599-0, 49866-1, 61758-1, 81418-9, ANAIFR, 14359-7, 59239-1, 87193-9, 98227-5 ####[facility] LABCLIA [id number] [place] [address] [place] Chromatin Ab SerPl-aCncon Chromatin Ab Qn <0.2 Normal <1.0 [facility] Comment on above: Order Comment: Speci men Type: BLOOD SPECIMENOrdering Facility: [facility] Address: [address] [place] [address] Result Comment: Test Methodology: Multiplex flow immunoassay. Performed By: #### 2 9374-6, 96560-2, 95074-5, 22745-6, 32685-6, ANAIFR, 64021-4, 53706-0, 02217-0, 51172-1 ####[facility] LABCLIA [id number] [place] [address] [place] KAMRAN Jo1 Ab Ser-aCncon 2021 Radha-1 extractable nuclear Ab Qn (S) <0.2 Normal <1.0 [facility] Comment on above: Order Comment: Speci men Type: BLOOD SPECIMENOrdering Facility: [facility] Address: [address] [place] [address] Performed By: #### 2 9374-6, 62152-1, 06849-4, 40617-4, 97922-8, ANAIFR, 71222-6, 08448-8, 99555-3, 99624-7 ####[facility] LABCLIA [id number] [place] [address] [place] KAMRAN DYE MIXER Ab Ser-aCncon 2021 Ribonucleoprotein extractable nuclear Ab Qn (S) <0.2 Normal <1.0 [facility] Comment on above: Order Comment: Speci men Type: BLOOD SPECIMENOrdering Facility: [facility] Address: [address] [place] [address] Performed By: #### 2 9374-6, 67648-7, 30837-8, 90571-2, 74841-4, ANAIFR, 47332-2, 47173-5, 34859-7, 88014-0 ####[facility] LABCLIA [id number] [place] [address] [place] KAMRAN SM IgG Ser-aCncon 2021 Osborne extractable nuclear IgG Qn (S) <0.2 Normal <1.0 [facility] Comment on above: Order Comment: Speci men Type: BLOOD SPECIMENOrdering Facility: [facility] Address: [address] [place] [address] Performed By: #### 2 9374-6, 87541-3, 33171-3, 42281-7, 37124-7, ANAIFR, 68884-6, 36795-0, 61045-0, 77586-1 ####[facility] LABIA [id number] [place] [address] [place] KAMRAN SS-A Ab Ser-aCncon 07-07 Sjogrens syndrome-A extractable nuclear Ab Qn (S) 0.3 AI Normal <1.0 [facility] Comment on above: Order Comment: Speci men Type: BLOOD SPECIMENOrdering Facility: [facility] Address: [address] [place] [address] Result Comment: Test Methodology: Multiplex flow immunoassay. Performed By: #### 2 9374-6, 32276-8, 16628-7, 38237-9, 16384-7, ANAIFR, 92029-7, 92076-2, 96948-8, 09958-1 ####[facility] LABIA [id number] [place] [address] [place] KAMRAN SS-B Ab Ser-aCncon 07-07 Sjogrens syndrome-B extractable nuclear Ab Qn (S) <0.2 Normal <1.0 [facility] Comment on above: Order Comment: Speci men Type: BLOOD SPECIMENOrdering Facility: [facility] Address: [address] [place] [address] Result Comment: Anti -SSB (anti-La) antibody is used as an aid in diagnosis of a variety of systemic autoimmune diseases, especially for Sjogren's syndrome and systemic lupus erythematosus. Clinical correlation is required. Test Methodology: Multiplex flow immunoassay. Performed By: #### 2 9374-6, 31253-9, 00480-0, 42339-9, 21171-7, ANAIFR, 58281-2, 38138-3, 61452-9, 80407-4 ####[facility] [id number] [address] [address] [place] Radha-1 extractable nuclear Ab Qn (S)on 07-07-2022 RADHA 1 ANTIBODY QUAL Negative Normal Negative [facility] Comment on above: Order Comment: Bryan hernández Type: BLOOD SPECIMENOrdering Facility: [facility] Address: [address] [place] [address] Result Comment: Anti -RADHA-1 antibody is used as an aid in diagnosis of polymyositis and dermatomyositis especially with pulmonary involvement. A negative result cannot rule out polymyositis or dermatomyositis. Clinical correlation is required. Test Methodology: Multiplex flow immunoassay. Performed By: #### 2 9374-6, 46385-2, 94846-6, 06666-3, 99836-7, ANAIFR, 62367-2, 11307-5, 96681-0, 31755-8 ####[facility] [id number] [place] [address] [place] Ribonucleoprotein extractabl e nuclear Ab Qn (S)on 07-07-2022 ANTI-DYE MIXER QUAL Negative Normal Negative [facility] Comment on above: Order Comment: Bryan hernández Type: BLOOD SPECIMENOrdering Facility: [facility] Address: [address] [place] [address] Performed By: #### 2 9374-6, 80942-8, 27077-2, 41333-8, 57195-0, ANAIFR, 81958-6, 85431-1, 60584-9, 69387-8 ####[facility] [id number] [address] [address] [place] RIBOSOMAL DYE MIXER QUAL Negative Normal Negative [facility] Comment on above: Order Comment: Bryan hernández Type: BLOOD SPECIMENOrdering Facility: [facility] Address: [address] [address] Result Comment: Anti -Ribosomal RNA (Ribosomal P) antibody is used as an aid in diagnosis of systemic autoimmune diseases especially systemic lupus erythematosus and mixed connective tissue disease. Cross-reactivity with Anti-osborne antibody is not uncommon. Clinical correlation is required. Test Methodology: Multiplex flow immunoassay. Performed By: #### 2 9374-6, 53810-2, 13635-1, 58754-5, 23073-6, ANAIFR, 40095-8, 68140-4, 33632-9, 25798-2 ####[facility] LABIA [id number] [place] [address] [place] SCL-70 extractable nuclear I gG IA Qn (S)on 07-07-2022 SCLERODERMA AB QUAL Negative Normal Negative [facility] Comment on above: Order Comment: Speci men Type: BLOOD SPECIMENOrdering Facility: [facility] Address: [address] [place] [address] Performed By: #### 2 9374-6, 28234-5, 07566-2, 96566-7, 28383-5, ANAIFR, 23845-1, 80824-7, 41799-0, 14948-6 ####[facility] LABIA [id number] [address] [place] SCLERODERMA IGG AB <0.2 Normal <1.0 [facility] Comment on above: Order Comment: Speci men Type: BLOOD SPECIMENOrdering Facility: [facility] Address: [address] [place] [address] Result Comment: Scl- 70/Scleroderma antibody test is used as an aid in diagnosis of systemic sclerosis especially the diffuse cutaneous form. A negative result cannot rule out systemic sclerosis. The final interpretation should consider clinical picture and other test results such as anti-centromere antibody. Test Methodology: Multiplex flow immunoassay. Performed By: #### 2 9374-6, 07503-6, 12918-3, 42005-3, 31531-4, ANAIFR, 60675-6, 31213-8, 72784-8, 55356-8 ####[facility] LABIA [id number] [address] [place] Sjogrens syndrome-A extracta ble nuclear Ab Qn (S)on 07-07-2022 SSA ANTIBODY QUAL Negative Normal Negative [facility] Comment on above: Order Comment: Speci men Type: BLOOD SPECIMENOrdering Facility: [facility] Address: [address] [place] [address] Performed By: #### 2 9374-6, 58464-6, 72970-3, 25385-0, 42971-2, ANAIFR, 91684-9, 70622-5, 87159-9, 44153-6 ####[facility] LABIA [id number] [address] [place] Sjogrens syndrome-B extracta ble nuclear Ab Qn (S)on 07-07-2022 SSB ANTIBODY QUAL Negative Normal Negative [facility] Comment on above: Order Comment: Speci men Type: BLOOD SPECIMENOrdering Facility: [facility] Address: [address] [place] [address] Performed By: #### 2 9374-6, 04596-2, 97978-5, 55882-8, 78396-2, ANAIFR, 98891-3, 69492-4, 90606-9, 81275-0 ####[facility] [id number] [address] [place] Osborne extractable nuclear Ig G Qn (S)on 07-07-2022 SM ANTIBODY QUAL Negative Normal Negative [facility] Comment on above: Order Comment: Speci men Type: BLOOD SPECIMENOrdering Facility: [facility] Address: [address] [place] [address] Result Comment: Anti -Sm (Osborne) antibody is used as an aid in diagnosis of systemic lupus erythematosus and its presence is associated with renal disease. A negative result cannot rule out systemic lupus erythematosus. Clinical correlation is required. Test Methodology: Multiplex flow immunoassay. Performed By: #### 2 9374-6, 99068-2, 38710-0, 44946-5, 11468-9, ANAIFR, 82136-4, 71419-2, 87563-2, 33540-5 ####[facility] LABCLIA [id number] [place] [address] [place] TSH BLDon 07-07-2022 TSH Qn 0.824 m[IU]/L 0.270 - 4.200 mIU/L [facility] TSH SerPl-aCncon 07-07-2022 TSH Qn 0.824 m[IU]/L Normal 0.270-4.200 [facility] Comment on above: Order Comment: Speci men Type: BLOOD SPECIMENOrdering Facility: [facility] Address: [address] [place] [address] Result Comment: If t he patient is , TSH reference range varies by gestational period: First Trimester (weeks 9-12): 0.180-2.990 mIU/L Second Trimester: 0.110-3.980 mIU/L Third Trimester: 0.480-4.710 mIU/L Eliezer Bangura et al. A Practical Approach for the Verifications and Determination of Site- and Trimester-Specific Reference Intervals for Thyroid Function tests in . Thyroid, 2019:29:3:412-420. Rob Forrest, et al. 2017 Guidelines of the [place] [employer] for the Diagnosis and Management of Thyroid Disease during and the . Thyroid, 2017:27:3:315-389. Performed By: #### 3 016-3, 2132-9 ####[facility] LABIA [id number] [address] [place] [id number] [place] VITAMIN B12 BLOODon 07-07-20 22 Cobalamin (Vitamin B12) [Mass/Vol] 618 pg/mL 232 - 1,245 pg/mL [facility] Vit B12 SerPl-mCncon 022 Cobalamin (Vitamin B12) [Mass/Vol] 618 pg/mL Normal 232-1245 [facility] Comment on above: Order Comment: Speci men Type: BLOOD SPECIMENOrdering Facility: [facility] Address: [address] [address] Performed By: #### 3 016-3, 2132-9 ####[facility] LABCLIA [id number] [place] [address] [place] dsDNA Ab Ser IA-aCncon 07-07 DNA double strand Ab IA Qn (S) <12 Normal <30 [facility] Comment on above: Order Comment: Speci men Type: BLOOD SPECIMENOrdering Facility: [facility] Address: [address] [address] Result Comment: Nega tive for ds DNA Antibodies. <30 IU/mL Negative 30-74 IU/mL Equivocal >74 IU/mL Positive Performed By: #### 2 9374-6, 20152-7, 20681-7, 87090-3, 17628-4, ANAIFR, 15856-0, 13878-5, 13887-8, 08674-5 ####[facility] LABCLIA [id number] [address] [place] HLA B 27on 04-26-2022 HLA-B27 Negative Normal [facility] Comment on above: Result Comment: HLA- B*27 Negative B27 allele interpretation for all loci based on IMGT/HLA database version 3.44 This test was developed and its performance characteristics determined by [facility]. It has not been cleared or approved by the Food and Drug Administration. [facility] CLIA ID Number [id number] . This test was performed using PCR (Polymerase Chain Reaction)/SSOP (Sequence Specific Oligonucleotide Probes) technique. SBT (Sequence Based Typing) and/or SSP (Sequence Specific Primers) may be used as supplemental methods when necessary. Please contact [facility] Customer Service at if you have any questions. . Director of [facility] Dr Abdiaziz Shook, PhD Performed By: #### C VDAGA #### [facility] [address] [place] [address] Dr. Christos Fallon 25-HYDROXY VIT D (D2+D3 [facility] ) LC/MS-MSon 04-23-2022 25-Hydroxy, Vitamin D 26 ng/mL Critically low [facility] Comment on above: Result Comment: Refe rence Range: All Ages: Target levels 30 - 100 Performed By: #### C MP, TSH, HSTROPN #### [facility] [address] [place] [address] Dr. Christos Fallon 25-Hydroxy, Vitamin D-2 <1.0 Normal [facility] Comment on above: Result Comment: This test was developed and its performance characteristics determined by [facility]. It has not been cleared or approved by the Food and Drug Administration. Performed By: #### C MP, TSH, HSTROPN #### [facility] [address] [place] [address] Dr. Christos Fallon 25-Hydroxy, Vitamin D-3 26 ng/mL Normal [facility] Comment on above: Result Comment: This test was developed and its performance characteristics determined by [facility]. It has not been cleared or approved by the Food and Drug Administration. Performed By: #### C MP, TSH, HSTROPN #### [facility] [address] [place] [address] Dr. Christos Fallon REVERSE T3on 04-20-2022 Reverse T3, Serum 11.2 ng/dL Normal 9.2-24.1 [facility] Comment on above: Result Comment: This test was developed and its performance characteristics determined by [facility]. It has not been cleared or approved by the Food and Drug Administration. Performed By: #### C VDAGA #### [facility] [address] [place] [address] Dr. Christos Fallon THYROID ANTIBODIESon 022 Thyroglobulin Antibody <1.0 Normal 0.0-0.9 [facility] Comment on above: Result Comment: Thyr oglobulin Antibody measured by [employer] Methodology Performed By: #### C VDAGA #### [facility] [address] [place] [address] Dr. Christos Fallon Thyroid Peroxidase (TPO) Ab 11 IU/mL Normal 0-34 [facility] Comment on above: Performed By: #### C VDAGA #### [facility] [address] [place] [address] Dr. Christos Fallon ANTISTREPTOLYSIN O AB (ASO)o n 04-16-2022 Antistreptolysin O Ab 21.8 IU/mL Normal 0.0-200.0 [facility] Comment on above: Performed By: #### C MP, TSH, HSTROPN #### [facility] [address] [place] [address] Dr. Christos Fallon T3, TOTAL (TRIIODOTHYRONINE) on 04-16-2022 T3, TOTAL 115 ng/dL Normal 71-180 [facility] Comment on above: Performed By: #### C MP, TSH, HSTROPN #### [facility] [address] [place] [address] Dr. Christos Fallon FREE T3on 04-14-2022 FREE T3 2.46 pg/mlL Normal 2.18-3.98 [facility] Comment on above: Performed By: #### C MP, TSH, HSTROPN #### [facility] [address] [place] [address] Dr. Christos Fallon FREE T4on 04-14-2022 Free T4 [Mass/Vol] 0.88 ng/dL Normal 0.76-1.46 [facility] Comment on above: Performed By: #### C VDAGA #### [facility] [address] [place] [address] Dr. Christos Fallon TSHon 04-14-2022 TSH 1.027 uIU/mL Normal 0.358-3.740 [facility] Comment on above: Performed By: #### C MP, TSH, HSTROPN #### [facility] [address] [place] [address] Dr. Christos Fallon CBC AUTO DIFFon 03-22-2022 BASO # 0.1 103/ul Normal 0.0-0.1 [facility] Comment on above: Performed By: #### C MP, TSH, HSTROPN #### [facility] [address] [place] [address] Dr. Christos Fallon Basophils/100 WBC (Bld) 0.7 % Normal 0.2-2.0 [facility] Comment on above: Performed By: #### C MP, TSH, HSTROPN #### [facility] [address] [place] [address] Dr. Christos Fallon EO # 0.3 103/ul Normal 0.0-0.7 [facility] Comment on above: Performed By: #### C MP, TSH, HSTROPN #### [facility] [address] [place] [address] Dr. Christos Fallon Eosinophils/100 WBC (Bld) 3.4 % Normal 0.9-7.0 [facility] Comment on above: Performed By: #### C MP, TSH, HSTROPN #### [facility] [address] [place] [address] Dr. Christos Fallon Erythrocyte distribution width (RBC) [Ratio] 12.5 % Normal 11.0-15.0 [facility] Comment on above: Performed By: #### C MP, TSH, HSTROPN #### [facility] [address] [place] [address] Dr. Christos Fallon Hematocrit (Bld) [Volume fraction] 41.3 % Normal 36.0-48.0 [facility] Comment on above: Performed By: #### C MP, TSH, HSTROPN #### [facility] [address] [place] [address] Dr. Christos Fallon Hemoglobin (Bld) [Mass/Vol] 14.2 g/dL Normal 12.0-16.0 [facility] Comment on above: Performed By: #### C MP, TSH, HSTROPN #### [facility] [address] [place] [address] Dr. Christos Fallon IG # 0.03 10e3/ul Normal 0.00-0.03 [facility] Comment on above: Performed By: #### C MP, TSH, HSTROPN #### [facility] [address] [place] [address] Dr. Christos Fallon IG % 0.4 % Normal 0.0-0.5 [facility] Comment on above: Performed By: #### C MP, TSH, HSTROPN #### [facility] [address] [place] [address] Dr. Christos Fallon LYMPH # 2.3 103/ul Normal 1.2-3.8 [facility] Comment on above: Performed By: #### C MP, TSH, HSTROPN #### [facility] [address] [place] [address] Dr. Christos Fallon Lymphocytes/100 WBC (Bld) 31.3 % Normal 20.5-60.0 [facility] Comment on above: Performed By: #### C MP, TSH, HSTROPN #### [facility] [address] [place] [address] Dr. Christos Fallon MANUAL DIFF REQ NO Normal [facility] Comment on above: Performed By: #### C MP, TSH, HSTROPN #### [facility] [address] [place] [address] Dr. Christos Fallon MCH (RBC) [Entitic mass] 34.8 pg Critically high 26.7-34.0 [facility] Comment on above: Performed By: #### C MP, TSH, HSTROPN #### [facility] [address] [place] [address] Dr. Christos Fallon MCHC (RBC) [Mass/Vol] 34.4 g/dL Normal 29.9-35.2 [facility] Comment on above: Performed By: #### C MP, TSH, HSTROPN #### [facility] [address] [place] [address] Dr. Christos Fallon MCV (RBC) [Entitic vol] 101.2 fL Critically high 81.0-99.0 [facility] Comment on above: Performed By: #### C MP, TSH, HSTROPN #### [facility] [address] [place] [address] Dr. Christos Fallon MONO # 0.9 103/ul Critically high 0.3-0.8 [facility] Comment on above: Performed By: #### C MP, TSH, HSTROPN #### [facility] [address] [address] [address] Christos Fallon Monocytes/100 WBC (Bld) 12.0 % Normal 1.7-12.0 [facility] Comment on above: Performed By: #### C MP, TSH, HSTROPN #### [facility] [address] [address] [address] Christos aFllon NEUT # 3.9 103/ul Normal 1.4-6.5 [facility] Comment on above: Performed By: #### C MP, TSH, HSTROPN #### [facility] [address] [address] [address] Christos Fallon Neutrophils/100 WBC (Bld) 52.2 % Normal 43.0-75.0 [facility] Comment on above: Performed By: #### C MP, TSH, HSTROPN #### [facility] [address] [place] [address] Dr. Christos Fallon Platelet mean volume (Bld) [Entitic vol] 9.7 fL Normal 9.5-13.5 [facility] Comment on above: Performed By: #### C MP, TSH, HSTROPN #### [facility] [address] [address] [address] Christos Fallon PLT 296 103/ul Normal 150-450 [facility] Comment on above: Performed By: #### C MP, TSH, HSTROPN #### [facility] [address] [address] [address] Christos Fallon RBC 4.08 106/ul Critically low 4.20-5.40 [facility] Comment on above: Performed By: #### C MP, TSH, HSTROPN #### [facility] [address] [address] [address] Christos Fallon WBC 7.4 103/ul Normal 4.0-11.0 [facility] Comment on above: Performed By: #### C MP, TSH, HSTROPN #### [facility] [address] [place] [address] HEAD WO CONon 08-15-2022 CT HEAD WO CON CLINICAL HISTORY: BENIGN [...] PAL WETZEL Date: 2022-03-22 17:41 Normal [facility] ER URINE PROFILEon 2 Bilirubin Ql (U) Negative Normal NEGATIVE [facility] Comment on above: Performed By: #### C VDAGA #### [facility] [address] [place] [address] Dr. Christos Fallon Clarity (U) CLOUDY Abnormal CLEAR [facility] Comment on above: Performed By: #### C VDAGA #### [facility] [address] [place] [address] Dr. Christos Fallon Color (U) LT. YELLOW Normal YELLOW [facility] Comment on above: Performed By: #### C VDAGA #### [facility] [address] [place] [address] Dr. Christos Fallon ERUAHD A micrscopic examination will be performed if indicated. Normal [facility] Comment on above: Performed By: #### C VDAGA #### [facility] [address] [place] [address] Dr. Christos Fallon Glucose Ql (U) Negative Normal NEGATIVE The [facility] Comment on above: Performed By: #### C VDAGA #### [facility] [address] [place] [address] Dr. Christos Fallon Hemoglobin Ql (U) Negative Normal NEGATIVE [facility] Comment on above: Performed By: #### C VDAGA #### [facility] [address] [place] [address] Dr. Christos Fallon Ketones Ql (U) Negative Normal NEGATIVE [facility] Comment on above: Performed By: #### C VDAGA #### [facility] [address] [place] [address] Dr. Christos Fallon LEUKOCYTES Negative Normal NEGATIVE [facility] Comment on above: Performed By: #### C VDAGA #### [facility] [address] [place] [address] Dr. Chrisots Fallon Nitrite Ql (U) Negative Normal NEGATIVE [facility] Comment on above: Performed By: #### C VDAGA #### [facility] [address] [place] [address] Dr. Christos Fallon pH (U) 6.0 [pH] Normal 5-9 [facility] Comment on above: Performed By: #### C VDAGA #### [facility] [address] [place] [address] Dr. Christos Fallon SPEC GRAVITY 1.010 Normal 1.005-<=1.02 5 [facility] Comment on above: Performed By: #### C VDAGA #### [facility] [address] [place] [address] Dr. Christos Fallon UA PROTEIN Negative Normal NEGATIVE/ TRACE [facility] Comment on above: Performed By: #### C VDAGA #### [facility] [address] [place] [address] Dr. Christos Fallon UR MICRO IND NOT INDICATED Normal [facility] Comment on above: Performed By: #### C VDAGA #### [facility] [address] [place] [address] Dr. Christos Fallon Urobilinogen Qn (U) 0.2 {Peyman'U}/dL Normal 0.2 - 1. 0 [facility] Comment on above: Performed By: #### C VDAGA #### [facility] [address] [place] [address] Dr. Christos Fallon PROF 14(COMP METB)on 022 Albumin [Mass/Vol] 3.6 g/dL Normal 3.4-5.0 [facility] Comment on above: Performed By: #### C MP, HSTROPN, TSH #### [facility] [address] [place] [address] Dr. Christos Fallon Albumin/Globulin [Mass ratio] 0.9 {ratio} Normal [facility] Comment on above: Performed By: #### C MP, HSTROPN, TSH #### [facility] [address] [place] [address] Dr. Christos Fallon ALP [Catalytic activity/Vol] 83 U/L Normal 46-116 [facility] Comment on above: Performed By: #### C MP, HSTROPN, TSH #### [facility] [address] [place] [address] Dr. Christos Fallon ALT [Catalytic activity/Vol] 32 U/L Normal 14-59 [facility] Comment on above: Performed By: #### C MP, HSTROPN, TSH #### [facility] [address] [place] [address] Dr. Christos Fallon Anion gap [Moles/Vol] 15.4 mmol/L Normal [facility] Comment on above: Performed By: #### C MP, HSTROPN, TSH #### [facility] [address] [place] [address] Dr. Christos Fallon AST [Catalytic activity/Vol] 15 U/L Normal 15-37 [facility] Comment on above: Performed By: #### C MP, HSTROPN, TSH #### [facility] [address] [place] [address] Dr. Christos Fallon Bilirubin [Mass/Vol] 0.3 mg/dL Normal 0.2-1.0 [facility] Comment on above: Performed By: #### C MP, HSTROPN, TSH #### [facility] [address] [place] [address] Dr. Christos Fallon Calcium [Mass/Vol] 8.9 mg/dL Normal 8.5-10.1 [facility] Comment on above: Performed By: #### C MP, HSTROPN, TSH #### [facility] [address] [address] [address] Christos Fallon Chloride [Moles/Vol] 102 mmol/L Normal 98-107 [facility] Comment on above: Performed By: #### C MP, HSTROPN, TSH #### [facility] [address] [address] [address] Christos Fallon CO2 [Moles/Vol] 22.7 mmol/L Normal 21.0-32.0 [facility] Comment on above: Performed By: #### C MP, HSTROPN, TSH #### [facility] [address] [place] [address] Dr. Christos Fallon Creatinine [Mass/Vol] 0.97 mg/dL Normal 0.55-1.02 [facility] Comment on above: Performed By: #### C MP, HSTROPN, TSH #### [facility] [address] [place] [address] Dr. Christos Fallon EGFR-AF EMIRATI >60 Normal >=60 [facility] Comment on above: Performed By: #### C MP, HSTROPN, TSH #### [facility] [address] [place] [address] Dr. Christos Fallon EGFR-NON AF EMIRATI >60 Normal >=60 [facility] Comment on above: Performed By: #### C MP, HSTROPN, TSH #### [facility] [address] [address] [address] Christos Fallon Globulin (S) [Mass/Vol] 3.8 g/dL Normal [facility] Comment on above: Performed By: #### C MP, HSTROPN, TSH #### [facility] [address] [address] [address] Christos Fallon Glucose [Mass/Vol] 104 mg/dL Normal 74-106 [facility] Comment on above: Performed By: #### C MP, HSTROPN, TSH #### [facility] [address] [place] [address] Dr. Christos Fallon Potassium [Moles/Vol] 4.1 mmol/L Normal 3.5-5.1 [facility] Comment on above: Performed By: #### C MP, HSTROPN, TSH #### [facility] [address] [address] [address] Christos Fallon Protein [Mass/Vol] 7.4 g/dL Normal 6.4-8.2 [facility] Comment on above: Performed By: #### C MP, HSTROPN, TSH #### [facility] [address] [address] [address] Christos Fallon Sodium [Moles/Vol] 136 mmol/L Normal 136-145 [facility] Comment on above: Performed By: #### C MP, HSTROPN, TSH #### [facility] [address] [place] [address] Dr. Christos Fallon Urea nitrogen [Mass/Vol] 17.0 mg/dL Normal 7.0-18.0 [facility] Comment on above: Performed By: #### C MP, HSTROPN, TSH #### [facility] [address] [address] [address] Christos Fallon Urea nitrogen/Creatinine [Mass ratio] 17.5 mg/mg Normal [facility] Comment on above: Performed By: #### C MP, HSTROPN, TSH #### [facility] [address] [place] [address] Dr. Christos Fallon TROPONIN, HIGH SENSITIVITYon 03-22-2022 HSTROP <4.0 Normal 4.0-51.3 [facility] Comment on above: Result Comment: CUT- OFF POINTS HAVE BEEN ESTABLISHED BASED ON THE FOURTH UNIVERSAL DEFINITIONS OF MYOCARDIAL INFARCTION. THE UPPER REFERENCE LIMIT (URL) OF TROPONIN, DEFINED THE 99TH PERCENTILE OF cTnI DISTRIBUTION IN A REFERENCE POPULATION, HAS BEEN CONFIRMED THE DECISION THRESHOLD FOR CO DIAGNOSIS. Performed By: #### C MP, HSTROPN, TSH #### [facility] [address] [place] [address] Dr. Christos Fallon TSHon 03-22-2022 TSH 0.854 uIU/mL Normal 0.358-3.[address] [facility] Comment on above: Performed By: #### C MP HSTROPN, TSH #### [facility] [address] [address] [address] Christos Fallon ASYMPTOMATIC COVID-19 ANTIGE Non 03-03-2022 EUA Statement SEE BELOW Normal [facility] Comment on above: Result Comment: This [...] #### C VDAGA #### [facility] [address] [place] [address] Dr. Christos Fallon SARS-CoV-2 (COVID-19) RNA LEROY+probe Ql (Unsp spec) Positive Critically abnormal NEGATIVE [facility] Comment on above: Result Comment: SARS -CoV-2 antigen present; does not rule out coinfection with other pathogens. Performed By: #### C VDAGA #### [facility] [address] [place] [address] Dr. Christos Fallon Covid-19 PCR (CVDTB)on 02-06 SARS-CoV-2 (COVID-19) RNA LEROY+probe Ql (Unsp spec) Detected Critically abnormal NOT DETECTED [facility] Comment on above: Result Comment: This test is not yet approved or cleared by the [place] FDA. When there are no FDA-approved or cleared tests available, and other criteria are met, FDA can make tests available under an emergency access mechanism called an Emergency Use Authorization (EUA). The EUA for this test is supported by the [employer] Driver of Health and Human Service's declaration that [...] MP, TSH, HSTROPN #### [facility] [address] [place] [address] Dr. Christos Fallon CRPon 11-25-2021 CRP [Mass/Vol] mg/L Normal <=1.0 [facility] Comment on above: Performed By: #### C MP, TSH, HSTROPN #### [facility] [address] [place] [address] Dr. Christos Fallon VIT B12 AND FOLATEon 022 Cobalamin (Vitamin B12) [Mass/Vol] 329.0 pg/mL Normal 239.0-931.0 [facility] Comment on above: Performed By: #### C MP, TSH, HSTROPN #### [facility] [address] [place] [address] Dr. Christos Fallon FOLATE 8.50 ng/mL Normal >=2.76 [facility] Comment on above: Performed By: #### C MP, TSH, HSTROPN #### [facility] [address] [place] [address] Dr. Christos Fallon CBC AUTO DIFFon 11-19-2021 BASO # 0.1 103/ul Normal 0.0-0.1 [facility] Comment on above: Performed By: #### C BC #### [facility] [address] [place] [address] Dr. Christos Fallon Basophils/100 WBC (Bld) 0.8 % Normal 0.2-2.0 [facility] Comment on above: Performed By: #### C BC #### [facility] [address] [place] [address] Dr. Christos Fallon EO # 0.3 103/ul Normal 0.0-0.7 [facility] Comment on above: Performed By: #### C BC #### [facility] [address] [place] [address] Dr. Christos Fallon Eosinophils/100 WBC (Bld) 4.8 % Normal 0.9-7.0 [facility] Comment on above: Performed By: #### C BC #### [facility] [address] [place] [address] Dr. Christos Fallon Erythrocyte distribution width (RBC) [Ratio] 12.2 % Normal 11.0-15.0 [facility] Comment on above: Performed By: #### C BC #### [facility] [address] [place] [address] Dr. Christos Fallon Hematocrit (Bld) [Volume fraction] 41.9 % Normal 36.0-48.0 [facility] Comment on above: Performed By: #### C BC #### [facility] [address] [place] [address] Dr. Christos Fallon Hemoglobin (Bld) [Mass/Vol] 14.2 g/dL Normal 12.0-16.0 [facility] Comment on above: Performed By: #### C BC #### [facility] [address] [place] [address] Dr. Christos Fallon IG # 0.03 10e3/ul Normal 0.00-0.03 [facility] Comment on above: Performed By: #### C BC #### [facility] [address] [place] [address] Dr. Christos Fallon IG % 0.5 % Normal 0.0-0.5 [facility] Comment on above: Performed By: #### C BC #### [facility] [address] [place] [address] Dr. Christos Fallon LYMPH # 1.5 103/ul Normal 1.2-3.8 [facility] Comment on above: Performed By: #### C BC #### [facility] [address] [place] [address] Dr. Christos Fallon Lymphocytes/100 WBC (Bld) 24.6 % Normal 20.5-60.0 [facility] Comment on above: Performed By: #### C BC #### [facility] [address] [place] [address] Dr. Christos Fallon MANUAL DIFF REQ NO Normal [facility] Comment on above: Performed By: #### C BC #### [facility] [address] [place] [address] Dr. Christos Fallon MCH (RBC) [Entitic mass] 34.3 pg Critically high 26.7-34.0 [facility] Comment on above: Performed By: #### C BC #### [facility] [address] [place] [address] Dr. Christos Fallon MCHC (RBC) [Mass/Vol] 33.9 g/dL Normal 29.9-35.2 [facility] Comment on above: Performed By: #### C BC #### [facility] [address] [place] [address] Dr. Christos Fallon MCV (RBC) [Entitic vol] 101.2 fL Critically high 81.0-99.0 [facility] Comment on above: Performed By: #### C BC #### [facility] [address] [place] [address] Dr. Christos Fallon MONO # 0.5 103/ul Normal 0.3-0.8 [facility] Comment on above: Performed By: #### C BC #### [facility] [address] [place] [address] Dr. Christos Fallon Monocytes/100 WBC (Bld) 7.2 % Normal 1.7-12.0 [facility] Comment on above: Performed By: #### C BC #### [facility] [address] [place] [address] Dr. Christos Fallon NEUT # 3.9 103/ul Normal 1.4-6.5 [facility] Comment on above: Performed By: #### C BC #### [facility] [address] [place] [address] Dr. Christos Fallon Neutrophils/100 WBC (Bld) 62.1 % Normal 43.0-75.0 [facility] Comment on above: Performed By: #### C BC #### [facility] [address] [place] [address] Dr. Christos Fallon Platelet mean volume (Bld) [Entitic vol] 9.1 fL Critically low 9.5-13.5 [facility] Comment on above: Performed By: #### C BC #### [facility] [address] [place] [address] Dr. Christos Fallon PLT 301 103/ul Normal 150-450 [facility] Comment on above: Performed By: #### C BC #### [facility] [address] [place] [address] Dr. Christos Fallon RBC 4.14 106/ul Critically low 4.20-5.40 [facility] Comment on above: Performed By: #### C BC #### [facility] [address] [place] [address] Dr. Christos Fallon WBC 6.3 103/ul Normal 4.0-11.0 [facility] Comment on above: Performed By: #### C BC #### [facility] [address] [place] [address] Dr. Christos Fallon FREE T3on 11-19-2021 FREE T3 2.72 pg/mlL Critically low 2.77-5.27 [facility] Comment on above: Performed By: #### C MP, TSH, HSTROPN #### [facility] [address] [place] [address] Dr. Christos Fallon FREE T4on 11-19-2021 Free T4 [Mass/Vol] 1.09 ng/dL Normal 0.78-2.19 [facility] Comment on above: Performed By: #### C MP, TSH, HSTROPN #### [facility] [address] [place] [address] Dr. Christos Fallon GLYCOHEMOGLOBIN A1Con 2021 ADA RECOMMENDATION ADA THERAPEUTIC TARG ET 6.0 - 7.0 ACTION SUGGESTED > 7.0 Normal [facility] Comment on above: Performed By: #### A 1C #### [facility] [address] [address] [address] Christos Fallon Glucose [Mass/Vol] 105 mg/dL Normal [facility] Comment on above: Performed By: #### A 1C #### [facility] [address] [address] [address] Christos Fallon HbA1c (Bld) [Mass fraction] 5.3 % Normal <=6.0 [facility] Comment on above: Performed By: #### A 1C #### [facility] [address] [place] [address] Dr. Christos Fallon LIPID PROFILEon 11-19-2021 CHOL-HDL RATIO NORM SEE BELOW Normal [place] Comment on above: Result Comment: 3.3 - 4.4 LOW RISK 4.4 - 7.1 AVERAGE RISK 7.1 - 11.0 MODERATE RISK >11.0 HIGH RISK Performed By: #### C MP, TSH, HSTROPN #### [facility] [address] [address] [address] Christos Fallon Cholesterol [Mass/Vol] 232 mg/dL Critically high <=200 [facility] Comment on above: Performed By: #### C MP, TSH, HSTROPN #### [facility] [address] [address] [address] Christos Fallon Cholesterol in HDL [Mass/Vol] 60 mg/dL Normal 40-60 [facility] Comment on above: Performed By: #### C MP, TSH, HSTROPN #### [facility] [address] [address] [address] Christos Fallon Cholesterol in LDL [Mass/Vol] 134.6 mg/dL Normal [facility] Comment on above: Performed By: #### C MP, TSH, HSTROPN #### [facility] [address] [place] [address] Dr. Christos Fallon Cholesterol.total/Cho lesterol in HDL [Mass ratio] 3.9 {ratio} Normal [facility] Comment on above: Performed By: #### C MP, TSH, HSTROPN #### [facility] [address] [address] [address] Christos Fallon HDL NORMAL > or = 60 mg/dl - LO W CARDIOVASCULAR RISK <40 mg/dl - HIGH CARDIOVASCULAR RISK Normal [facility] Comment on above: Performed By: #### C MP, TSH, HSTROPN #### [facility] [address] [address] [address] Christos Fallon LDL CALC NORMAL SEE BELOW Normal [facility] Comment on above: Result Comment: <100 mg/dl OPTIMAL 100 - 129 mg/dl NEAR OR ABOVE OPTIMAL 130 - 159 mg/dl BORDERLINE HIGH 160 - 189 mg/dl HIGH >190 mg/dl VERY HIGH Performed By: #### C MP, TSH, HSTROPN #### [facility] [address] [address] [address] Christos Fallon Triglyceride [Mass/Vol] 187 mg/dL Critically high <=150 [facility] Comment on above: Performed By: #### C MP, TSH, HSTROPN #### [facility] [address] [address] [address] Christos Fallon VLDL CALC 37.4 mg/dL Normal [facility] Comment on above: Performed By: #### C MP, TSH, HSTROPN #### [facility] [address] [address] [address] Christos Fallon PROF 14(COMP METB)on 022 Albumin [Mass/Vol] 3.8 g/dL Normal 3.4-5.0 [facility] Comment on above: Performed By: #### C MP, TSH, HSTROPN #### [facility] [facility] [address] [place] [address] Dr. Christos Fallon Albumin/Globulin [Mass ratio] 1.1 {ratio} Normal [facility] Comment on above: Performed By: #### C MP, TSH, HSTROPN #### [facility] [address] [place] [address] Dr. Christos Fallon ALP [Catalytic activity/Vol] 77 U/L Normal 46-116 [facility] Comment on above: Performed By: #### C MP, TSH, HSTROPN #### [facility] [address] [address] [address] Christos Fallon ALT [Catalytic activity/Vol] 34 U/L Normal 14-59 [facility] Comment on above: Performed By: #### C MP, TSH, HSTROPN #### [facility] [address] [address] [address] Christos Fallon Anion gap [Moles/Vol] 11.5 mmol/L Normal [facility] Comment on above: Performed By: #### C MP, TSH, HSTROPN #### [facility] [address] [address] [address] Christos Fallon AST [Catalytic activity/Vol] 21 U/L Normal 15-37 [facility] Comment on above: Performed By: #### C MP, TSH, HSTROPN #### [facility] [address] [place] [address] Dr. Christos Fallon Bilirubin [Mass/Vol] 0.7 mg/dL Normal 0.2-1.3 [facility] Comment on above: Performed By: #### C MP, TSH, HSTROPN #### [facility] [address] [address] [address] Christos Fallon Calcium [Mass/Vol] 8.8 mg/dL Normal 8.5-10.1 [facility] Comment on above: Performed By: #### C MP, TSH, HSTROPN #### [facility] [address] [place] [address] Dr. Christos Fallon Chloride [Moles/Vol] 104 mmol/L Normal 98-107 [facility] Comment on above: Performed By: #### C MP, TSH, HSTROPN #### [facility] [address] [place] [address] Dr. Christos Fallon CO2 [Moles/Vol] 28.6 mmol/L Normal 22.0-30.0 [facility] Comment on above: Performed By: #### C MP, TSH, HSTROPN #### [facility] [address] [place] [address] Dr. Christos Fallon Creatinine [Mass/Vol] 0.88 mg/dL Normal 0.52-1.04 [facility] Comment on above: Performed By: #### C MP, TSH, HSTROPN #### [facility] [address] [address] [address] Christos Fallon EGFR-AF EMIRATI >60 Normal >=60 [facility] Comment on above: Performed By: #### C MP, TSH, HSTROPN #### [facility] [address] [address] [address] Christos Fallon EGFR-NON AF EMIRATI >60 Normal >=60 [facility] Comment on above: Performed By: #### C MP, TSH, HSTROPN #### [facility] [address] [place] [address] Dr. Christos Fallon Globulin (S) [Mass/Vol] 3.5 g/dL Normal [facility] Comment on above: Performed By: #### C MP, TSH, HSTROPN #### [facility] [address] [address] [address] Christos Fallon Glucose [Mass/Vol] 101 mg/dL Normal 74-106 [facility] Comment on above: Performed By: #### C MP, TSH, HSTROPN #### [facility] [address] [place] [address] Dr. Christos Fallon Potassium [Moles/Vol] 4.1 mmol/L Normal 3.4-5.0 [facility] Comment on above: Performed By: #### C MP, TSH, HSTROPN #### [facility] [address] [place] [address] Dr. Christos Fallon Protein [Mass/Vol] 7.3 g/dL Normal 6.1-8.2 [facility] Comment on above: Performed By: #### C MP, TSH, HSTROPN #### [facility] [address] [place] [address] Dr. Christos Fallon Sodium [Moles/Vol] 140 mmol/L Normal 137-145 [facility] Comment on above: Performed By: #### C MP, TSH, HSTROPN #### [facility] [address] [address] [address] Christos Fallon Urea nitrogen [Mass/Vol] 11.0 mg/dL Normal 7.0-18.0 [facility] Comment on above: Performed By: #### C MP, TSH, HSTROPN #### [facility] [address] [address] [address] Christos Fallon Urea nitrogen/Creatinine [Mass ratio] 12.5 mg/mg Normal [facility] Comment on above: Performed By: #### C MP, TSH, HSTROPN #### [facility] [address] [address] [address] Christos Fallon TSHon 11-19-2021 TSH 0.774 uIU/mL Normal 0.470-4.680 [facility] Comment on above: Performed By: #### C MP, TSH, HSTROPN #### [facility] [address] [address] [address] Christos Fallon TSH RANGE SEE BELOW Normal [facility] Comment on above: Result Comment: <0.3 4 UIU/ml HYPERTHYROID 0.34-5.60 UIU/ml EUTHYROID >5.60 UIU/ml HYPOTHYROID Performed By: #### C MP, TSH, HSTROPN #### [facility] [address] [address] [address] Christos Fallon XR TSPINE 2 VIEWSon [...] 2021-11-19 12:49 Normal [facility] Cardiovascular Lab Reporton 11-17-[address] [facility] Patient Name: Kaila Vasquez [facility] MR #: [id number] Physician: Jonny Fowler M.D. Department of Service Date: 11/17/2021 Medicine Birthdate: 1980 Division of Room #: CC Cardiology Adult Cardiovascular Services [address] [place] [address] Cardiovascular Laboratory Report PROCEDURE: Implantable loop recorder [...] subcutaneous pocket, into which was deployed a BiotroniSimulScribe BioMonitor 3 implantable loop recorder. Via off [...] Fowler M.D. Date Trans: 11/17/2021 12:41 P/gisello [id number] cc: Mert Lama M.D. [address] [place] [address] [facility] [phone] [facility] Covid-19 PCR (CVDTBH)on SARS-CoV-2 (COVID-19) RNA LEROY+probe Ql (Unsp spec) Not detected Normal NOT DETECTED [facility] Comment [...] this test is supported by the [place] of Health and Human Service's (HHS's) declaration [...] MP, TSH, HSTROPN #### [facility] [address] [place] [address] Dr. Christos Fallon Covid-19 PCR (CVDTBH)on SARS-CoV-2 (COVID-19) RNA LEROY+probe Ql (Unsp spec) Not detected Normal NOT DETECTED The [facility] Comment [...] for this test is supported by the [employer] Driver of Health and Human Service's declaration that [...] longer be used). Performed By: #### C [facility] #### [facility] [address] [address] [address] Christos Fallon Cardiovascular Lab Reporton 06-17-[address] [facility] Patient Name: Kaila Vasquez [facility] MR #: [id number] Physician: Vishal Rogers MD Department of Service Date: 06/17/2021 Medicine Birthdate: 1980 Division of Room #: Cardiology Adult Cardiovascular Services [place] [address] Cardiovascular Laboratory Report COMPREHENSIVE EP STUDY AND [...] same (more content not included)... Normal [facility] FEMUR LEFT [address] [facility] 1 FEMUR LEFT 2 [facility] Department of Radiology [address] [place] [id number] ======== Patient Name: KAILA VASQUEZ : 1980 Sex: F Age: Race: White Pt. 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 Electronically signed: Gelacio Pfeiffer. Transcribed by: [email or web address], User Resident: TAVON BELCHER Electronically Signed by: GELACIO PFEIFFER @ 01/15/2021 12:03 PM I personally read this/these film(s) with this resident Normal The [facility] Comment on above: Order Comment: evalu ate Operative Reporton Operative Report MR#: [id number] [facility] Pt. Name: Kaila Vasquez Room #: 0C Discharge 12/05/2020 Date: Birthdate: 1980 OPERATIVE REPORT DATE OF SURGERY: 12/05/2020 SURGEON: Pamella Brennan M.D. PREOPERATIVE DIAGNOSIS: Left distal femur osteochondroma. POSTOPERATIVE DIAGNOSIS: Left distal femur osteochondroma. PROCEDURE PERFORMED: Left distal femur osteochondroma excision. INTERNET MARKETING STRATEGIST: Alaina Edouard M.D. ANESTHESIA: General endotracheal. SPECIMENS: [...] i (more content not included)... Normal [facility] FEMUR LEFT [address] [facility] 1 FEMUR LEFT 2 [facility] Department of Radiology [address] [place] [id number] ======== Patient Name: KAILA VASQUEZ : 1980 Sex: F Age: Race: White Pt. Location: OUTP Patient Status: O Ordered Date: 12/05/2020 7:30:00 AM Completed Date: 12/05/2020 10:05 AM Requesting Provider: PAMELLA BRENNAN Attending Provider: PAMELLA BRENNAN Report Copy To: Signs & Symptoms: LEFT DISTAL FEMUR OSTEOCHONDROMA EXCISION History: Comments: LEFT DISTAL FEMUR OSTEOCHONDROMA EXCISION Exam: FEMUR LEFT 2 [facility] ======== FEMUR LEFT 2 VWS 12/05/2020 [...] purposes. Electronically signed: Ching Garcia. Transcribed by: [email or web address], User Resident: Electronically Signed by: CHING GARCIA @ 12/05/2020 11:[address] [facility] Comment on above: Order Comment: LEFT DISTAL FEMUR OSTEOCHONDROMA EXCISION POC GLUCOSE LABon 12-05-2020 Glucose [Mass/Vol] 108 mg/dL High 70-[address] [facility] Comment on above: Performed By: #### 8 5499 ####[facility] *MRSA/MSSA DNA NASALon 11-28 *MRSA/MSSA DNA NASAL Clinical Report: (D ) Specimen: NASAL SWAB Collected: 11/28/2020 13:22 Status: Final Last Updated: 2020 13:05 MSSA DNA (Final) Negative MRSA DNA (Final) Negative Normal [facility] Comment on above: Performed By: #### 3 1595 ####[facility] [place] [address], [facility] APTTon 11-28-2020 aPTT Coag (Bld) [Time] 29.1 s Normal 25.0-35.[address] [facility] Comment on [...] THIS PURPOSE. Performed By: #### 5 7307, [address] #### [facility] [address] [place] [address], [facility] BASIC METABOLIC PANELon 04-2 Calcium [Mass/Vol] 9.5 mg/dL Normal 8.6-10.[address] [facility] Comment on above: Performed By: #### 0 0071 #### [facility] [address] [place] [address], [facility] Chloride [Moles/Vol] 104 mmol/L Normal 98-[address] [facility] Comment on above: Performed By: #### 0 0071 #### [facility] [address] [place] [address], [facility] CO2 [Moles/Vol] 28 mmol/L Normal 21-[address] [facility] Comment on above: Performed By: #### 0 0071 #### [facility] [address] [place] [address], [facility] Creatinine [Mass/Vol] 0.90 mg/dL Normal 0.60-1.[address] [facility] Comment on above: Performed By: #### 0 0071 #### [facility] [address] [place] [address], [facility] GFR/1.73 sq M.predicted among blacks MDRD (S/P/Bld) [Vol rate/Area] mL/min/{1.73_m2} Normal >[address] [facility] Comment on above: Performed By: #### 0 0071 #### [facility] [address] [place] [address], [facility] GFR/1.73 sq M.predicted among non-blacks MDRD (S/P/Bld) [Vol rate/Area] mL/min/{1.73_m2} Normal >[address] [facility] Comment on above: Performed By: #### 0 0071 #### [facility] [address] [facility] [address], [facility] Glucose [Mass/Vol] 132 mg/dL High 70-[address] [facility] Comment on above: Performed By: #### 0 0071 #### [facility] [address] [place] [address], [facility] Potassium [Moles/Vol] 3.8 mmol/L Normal 3.5-5.[address] [facility] Comment on above: Performed By: #### 0 0071 #### [facility] [address] Sodium [Moles/Vol] 138 mmol/L Normal 136-[address] [facility] Comment on above: Performed By: #### 0 0071 #### [facility] [address] [place] [address], [facility] Urea nitrogen [Mass/Vol] 9 mg/dL Normal 7-[address] [facility] Comment on above: Performed By: #### 0 0071 #### [facility] [address] [place] [address], [facility] CBC W/DIFFon 11-28-2020 ABS IMM GRANS 0.0 10*3/uL Normal 0.0-0.[address] [facility] Comment on above: Performed By: #### 5 3 ####[facility] [place] [address], [facility] ABS NEUTROPHILS 7.2 10*3/uL Normal 1.6-7.[address] [facility] Comment on above: Performed By: #### 5 3 ####[facility] Basophils (Bld) [#/Vol] 0.1 10*3/uL Normal 0.0-0.[address] [facility] Comment on above: Performed By: #### 5 0103 ####[facility] Basophils/100 WBC (Bld) 0.6 % Normal 0.0-1.[address] [facility] Comment on above: Performed By: #### 5 0103 ####[facility] Eosinophils (Bld) [#/Vol] 0.3 10*3/uL Normal 0.0-0.[address] [facility] Comment on above: Performed By: #### 5 0103 ####[address] Eosinophils/100 WBC (Bld) 2.6 % Normal 0.0-6.[address] [facility] Comment on above: Performed By: #### 5 0103 ####[address] Erythrocyte distribution width (RBC) [Ratio] 12.6 % Normal 11.5-15.[address] [facility] Comment on above: Performed By: #### 5 3 ####[place] [id number] [address] Hematocrit (Bld) [Volume fraction] 42.6 % Normal 36.0-45.[address] [facility] Comment on above: Performed By: #### 5 3 ####[address] Hemoglobin (Bld) [Mass/Vol] 14.4 g/dL Normal 12.0-15.[address] [facility] Comment on above: Performed By: #### 5 3 ####[facility] IMMATURE GRANS 0.3 % Normal 0.0-1.[address] [facility] Comment on above: Performed By: #### 5 0103 ####[address] Lymphocytes (Bld) [#/Vol] 2.1 10*3/uL Normal 1.2-4.[address] [facility] Comment on above: Performed By: #### 5 3 ####[address] Lymphocytes/100 WBC (Bld) 20.2 % Normal 20.0-45.[address] [facility] Comment on above: Performed By: #### 102 ####[address] MCH (RBC) [Entitic mass] 33.6 pg High 27.0-33.[address] [facility] Comment on above: Performed By: #### 102 ####[address] MCHC (RBC) [Mass/Vol] 33.8 g/dL Normal 32.0-35.[address] [facility] Comment on above: Performed By: #### 5 3 ####[address] MCV (RBC) [Entitic vol] 99.5 fL High 82.0-98.[address] [facility] Comment on above: Performed By: #### 5 3 ####[address] Monocytes (Bld) [#/Vol] 0.7 10*3/uL Normal 0.1-1.[address] [facility] Comment on above: Performed By: #### 5 3 ####[facility] [place] [address], [facility] MONOS 6.4 % Normal 5.0-12.[address] [facility] Comment on above: Performed By: #### 5 0103 ####[facility] [facility] [address], [facility] Neutrophils/100 WBC (Bld) 69.9 % Normal 40.0-72.[address] [facility] Comment on above: Performed By: #### 5 0103 ####[facility] [facility] [place] [address], [facility] Nucleated RBC/100 WBC (Bld) [Ratio] 0 % Normal 0-[address] [facility] Comment on above: Performed By: #### 5 0103 ####[place] [address] [facility] [place] [address], [facility] PLAT CNT 346 10*3/uL Normal 150-[address] [facility] Comment on above: Performed By: #### 5 0103 ####[facility] [facility] [place] [address], [facility] RBC (Bld) [#/Vol] 4.28 10*6/uL Normal 3.80-5.[address] [facility] Comment on above: Performed By: #### 5 0103 ####[facility] [facility] [place] [address], [facility] WBC (Bld) [#/Vol] 10.24 10*3/uL Normal 4.00-10.[address] [facility] Comment on above: Performed By: #### 5 0103 ####[facility] [facility].[address] PROTHROMBIN TIMEon 1 INR Coag (PPP) [Relative time] 0.99 {INR} Normal 0.91-1.[address] [facility] Comment on above: Result Comment: ACCC P [...] CHEST 1995;[id number]. Performed By: #### 5 7307, 66474 #### [facility] [address] [place] [address], [facility] PT Coag (PPP) [Time] 13.1 s Normal 12.3-14.[address] [facility] Comment on above: Result Comment: ALL RESULTS MUST BE INTERPRETED WITH RESPECT TO BLOOD DRAWING ARTIFACT OR DILUTION ERROR OF ANTICOAGULANT AT THE TIME OF SAMPLING. Performed By: #### 5 7307, 34744 #### [facility] [address] [place] [address], [facility] TYPE AND CROSSMATCHon 2020 ABO INTERPRETATION O Normal [facility] Comment on above: Performed By: #### 6 2594 #### [facility] [address] [place] [address], [facility] RH INTERPRETATION Positive Normal [facility] Comment on above: Performed By: #### 6 2594 #### [facility] [address] [place] [address], [facility] URINALYSISon 11-28-2020 Appearance (U) CLEAR Normal CLEAR [facility] Comment on above: Performed By: #### 1 0008 #### [facility] [address] [place] [address], [place] Bilirubin Ql (U) Negative Normal NEGATIVE [facility] Comment on above: Performed By: #### 1 0008 #### [facility] [address] [place] [address], [place] Color (U) YELLOW Normal YELLOW [facility] Comment on above: Performed By: #### 1 0008 #### [facility] [address] [place] [address], [place] Glucose Ql (U) Negative Normal NEGATIVE [facility] Comment on above: Performed By: #### 1 0008 #### [facility] [address] [place] [address], [place] Hemoglobin Ql (U) Negative Normal NEGATIVE [facility] Comment on above: Performed By: #### 1 0008 #### [facility] [address] [place] [address], [place] KETONE Negative Normal NEGATIVE [facility] Comment on above: Performed By: #### 1 0008 #### [facility] [address] [place] [address], [place] LEUK JORDAN Negative Normal NEGATIVE [facility] Comment on above: Performed By: #### 1 0008 #### [facility] [address] [place] [address], [place] MICRO NOT DONE Normal [facility] Comment on above: Result Comment: Micr oscopics not performed on urines with negative chemical reactions unless requested in original order Performed By: #### 1 0008 #### [facility] [address] [place] [address], [place] Nitrite Ql (U) Negative Normal NEGATIVE [facility] Comment on above: Performed By: #### 1 0008 #### [facility] [address] [place] [address], [place] pH (U) 6.0 [pH] Normal 5.0-8.[address] [facility] Comment on above: Performed By: #### 1 0008 #### [facility] [address] [facility]. [address] Protein Ql (U) Negative Normal NEGATIVE [facility] Comment on above: Performed By: #### 1 0008 #### [facility] [address] [facility]. [address] SPEC GRAV 1.018 Normal 1.015-1.[address] [facility] Comment on above: Performed By: #### 1 0008 #### [facility] [address] Vital Signs Date Time Vital Sign Value Performing Clinician Faci lity 08-24-2022 13:44-0500 Body height 162.6 cm Janell Sy MD Work Phone: [facility] 08-24-2022 13:44-0500 Body weight 112.95 kg Janell Sy MD Work Phone: [facility] 08-24-2022 13:44-0500 Diastolic blood pressure 73 mm[Hg] Janell Sy MD Work Phone: [facility] 08-24-2022 13:44-0500 Heart rate 88 /min Janell Sy MD Work Phone: [facility] 08-24-2022 13:44-0500 SaO2% (BldA) [Mass fraction] 98 % Janell Sy MD Work Phone: [facility] 08-24-2022 13:44-0500 Systolic blood pressure 112 mm[Hg] Janell Sy MD Work Phone: [facility] 08-05-2022 10:00-0500 Diastolic blood pressure 88 mm[Hg] Carmen Johnson PT Work Phone: [facility] 08-05-2022 10:00-0500 Heart rate 78 /min Carmen Johnson PT Work Phone: [facility] 08-05-2022 10:00-0500 Systolic blood pressure 134 mm[Hg] Carmen Johnson PT Work Phone: [facility] 07-07-2022 08:12-0500 Body height 162.6 cm Glenroy Syed PRESSURE SUPERVISOR.[employer]EDER Work Phone: [facility] 07-07-2022 08:12-0500 Body weight 112.04 kg Glenroy Syed PRESSURE SUPERVISOR.MAGAZINE FEEDER Work Phone: [facility] 07-07-2022 08:12-0500 Diastolic blood pressure 88 mm[Hg] Glenroy Syed PRESSURE SUPERVISOR.MAGAZINE FEEDER Work Phone: [facility] 07-07-2022 08:12-0500 Heart rate 82 /min Glenroy Syed PRESSURE SUPERVISOR.MAGAZINE FEEDER Work Phone: [facility] 07-07-2022 08:12-0500 SaO2% (BldA) [Mass fraction] 98 % Glenroy Syed PRESSURE SUPERVISOR.MAGAZINE FEEDER Work Phone: [facility] 07-07-2022 08:12-0500 Systolic blood pressure 134 mm[Hg] Glenroy Syed PRESSURE SUPERVISOR.MAGAZINE FEEDER Work Phone: [facility] 12-09-2021 13:59-0400 Blood Pressure Location Pamella DANIELE [facility] [place] 12-09-2021 13:59-0400 Diastolic blood pressure 78 mm[Hg] Pamella SANABRIA [facility] [place] 12-09-2021 13:59-0400 Heart rate 68 /min Pamella SANABRIA [facility] [place] 12-09-2021 13:59-0400 Respiratory rate 16 /min Pamella SANABRIA [facility] [place] 12-09-2021 13:59-0400 Systolic blood pressure 118 mm[Hg] Pamella SANABRIA [facility] [place] Encounters Encounter Date Encounter Type Care Provider Facility Start: 11-26-2024 End: 11-26-2024 ambulatory Cristiane L Brock Facility:[facility] [place] Start: 11-15-2024 End: 11-15-2024 ambulatory Cristiane L Brock Facility:[facility] Start: 10-30-2024 ambulatory [facility] Start: 10-02-2024 End: 10-08-2024 Telephone encounter [facility] Comment on above: neuro referral Start: 09-18-2024 ambulatory [facility] Start: 09-11-2024 End: 09-11-2024 ambulatory Cristiane L Brock Facility:[facility] Start: 07-16-2024 ambulatory [facility] Start: 06-29-2024 ambulatory [facility] Start: 06-15-2024 ambulatory [facility] Start: 06-04-2024 End: 06-04-2024 ambulatory Ari Sellers MD Facility: [place] Start: 05-31-2024 ambulatory [facility] Start: 05-09-2024 ambulatory [facility] Start: 04-27-2024 ambulatory [facility] Start: 03-06-2024 ambulatory [facility] Start: 01-31-2024 ambulatory [facility] Start: 01-24-2024 ambulatory [facility] [place] Start: 12-19-2023 End: 12-19-2023 ambulatory Cristiane L Brock Facility:[facility] Kailyn Start: 10-25-2023 End: 10-25-2023 ambulatory IRMA SUDHA Not Available Start: 08-25-2023 End: 08-25-2023 ambulatory IRMA SDUHA Not Available Start: 10-15-2022 Orders Only Glenroy Syed PRESSURE SUPERVISOR.MAGAZINE FEEDER Work Phone: Neurology Comment on above: 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 Start: 09-09-2022 ambulatory Mauri Ross RT(R) diolkira Comment on above: Radiology MRI Start: 09-09-2022 Patient encounter procedure Mauri Ross RT(R) RONALDO EASON Start: 09-02-2022 End: 09-02-2022 ambulatory ELENA GUAN Facility: Start: 08-24-2022 End: 08-24-2022 ambulatory GLENROY SYED Facility:[facility] Start: 08-24-2022 End: 08-24-2022 Patient encounter procedure Janell Sy MD Work Phone: Cardiology Comment on above: KANG (obstructive sle ep apnea) (Primary Dx); Dizziness; Palpitations; Obesity, morbid, BMI 40.0-49.9 (HCC); SVT (supraventricular tachycardia) ([facility]); Chronic fatigue; Vitamin D deficiency Start: 08-20-2022 Orders Only Len OBRIEN.MAGAZINE FEEDER Work Phone: Neurology Comment on above: Ocular migraine (Dinora andres Dx) Start: 08-19-2022 End: 08-19-2022 ambulatory [facility] Provider Neurology Comment on above: Neuro Ophthalmologis t Start: 08-16-2022 ambulatory [facility] Provider Neurology Comment on above: MRI Start: 08-12-2022 End: 08-12-2022 ambulatory GLENROY SYED Facility:[facility] Start: 08-12-2022 End: 08-12-2022 ambulatory Carmen Johnson PT Work Phone: Physical Therapy Comment on above: Dizziness (Primary D x); Cervicalgia; Headaches Start: 08-05-2022 End: 08-05-2022 ambulatory GLENROY SYED Facility:[facility] Start: 08-05-2022 End: 08-05-2022 ambulatory Carmen Johnson PT Work Phone: Physical Therapy Comment on above: Dizziness (Primary D x); Cervicalgia; Headaches Start: 07-29-2022 End: 07-29-2022 ambulatory WM RODRIGUEZ Facility:[facility] Start: 07-21-[address] MERT LAMA Facilit y:[facility] Start: 07-07-2022 Telephone encounter Glenroy Debbie gallagherjeanette PRESSURE SUPERVISOR.MAGAZINE FEEDER Work Phone: Neurology Comment on above: Received Outside Med ical Records Start: 07-07-2022 End: 07-07-2022 ambulatory GLENROY SYED Facility:[facility] Start: 07-07-2022 End: 07-07-2022 Patient encounter procedure Glenroytoan Russelltanisha PRESSURE SUPERVISOR.MAGAZINE FEEDER Work Phone: Neurology Comment on above: Dizziness [...] examination without abnormal findings DR MERT LAMA [facility] Start: 11-19-2021 End: 11-20-[address] MERT LAMA Facility:[facility] Start: 11-19-2021 End: 11-20-2021 Encounter for general adult medical examination without abnormal findings DR MERT LAMA Facility:[facility] Start: 11-17-2021 End: 11-18-2021 ambulatory MERT LAMA Facility:[facility] Start: 11-14-2021 End: 11-15-2021 ambulatory ANU CABAN Facility:[facility] Start: 10-08-2021 End: 10-08-2021 ambulatory WM RODRIGUEZ Facility:[facility] Start: 06-17-2021 End: 06-18-2021 ambulatory MERT LAMA Facility:[facility] Start: 04-16-2021 End: 05-23-2021 ambulatory MERT LAMA Facility:[facility] Start: 12-05-2020 End: 12-06-2020 ambulatory MERT LAMA Facility:[facility] Procedures Date Procedure Procedure Detail Performing Clinician Start: 08-24-2022 Ecg routine ecg w/le ast 12 lds i&r only [facility] Provider Start: 12-05-2020 ANESTH KNEE AREA SURGERY MERT LAMA Start: 12-05-2020 REMOVE FEMUR LESION CARLOS KENDRICK Ang MIKA Start: 11-28-2020 Antibody screen MERT CHOUDHARY Ar Comment on above: Performed By: #### 6 [id number] #### [address] Start: 11-04-2020 Cystourethroscopy wi th dilation of urethral stricture Pamella SANABRIA Abdominal hysterectomy Wale jennifer ZIMMERMANL Bilateral complete salpingectomy Pamella ZIMMERMANL Cardiac radiofrequen cy ablation using ultrasound guidance Pamella SANABRIA Cholecystectomy Pamella SANABRIA Excision of osteochondroma M nicolle DANIELE History of ankle surgery Carlos SANABRIA Plan of Treatment Date Care Activity Detail Author Start: 04-08-2024 COVID-19 Vaccine (3 - 2024-25 season) COVID-19 Vaccine ( season) [facility] Start: 04-08-2024 Influenza vaccination Influenza Vacc ine [facility] Start: 08-08-2022 DEPRESSION ASSESSMENT DEPRESSION ASS ESSMENT [facility] Start: 07-07-2022 End: 09-06-2022 25-hydroxyvitamin D3 [Mass/volume] in Serum or Plasma [facility] Work Phone: Comment on above: Expected: 07/07/2022 , Expires: 09/06/2022 Start: 07-07-2022 End: 09-06-2022 ESEQUIEL BY IFA WITH REFLEX [facility] Work Phone: Comment on above: Expected: 07/07/2022 , Expires: 09/06/2022 Start: 04-08-2022 Influenza vaccination INFLUENZA (#1) [facility] Start: 08-08-2021 DEPRESSION ASSESSMENT DEPRESSION ASS ESSMENT [facility] Start: 11-05-2020 COVID-19 VACCINE (3 - Booster for Giancarlo series) COVID-19 VACCINE (3 - Booster for Giancarlo series) [facility] Start: 2012 HPV TESTING HPV TESTING [facility] Start: 12-29-2003 DTaP,Tdap and Td Vac cines (6 - Tdap) DTaP,Tdap and Td Vaccines (6 - Tdap) [facility] Start: 11-30-2003 PAP TESTING PAP TESTING [facility] Start: 11-30-2003 Screening for malign ant neoplasm of cervix Pap Smear [facility] Start: 2001 Urine microalbumin profile DTA P,TDAP,TD (1 - Tdap) [facility] Start: 2000 Adult BMI Screening Adult BMI Screen ing [facility] Start: 2000 HEPATITIS C SCREENING HEPATITIS C SC REENING [facility] Start: 2000 HIV SCREENING HIV SCREENING [facility] Start: 1994 Depression Screening Depression Scre ening [facility] Start: 1994 Tobacco Screening Tobacco Screening [facility] Start: 1982 HEPATITIS B (1 of 3 - 3-dose series) HEPATITIS B (1 of 3 - 3-dose series) [facility] End: 08-24-2023 ECG COMPLETE ECG COMPLETE ECG Routine Dizziness Palpitations Obesity, morbid, BMI 40.0-49.9 (HCC) 1 Occurrences starting 08/24/2022 until 08/24/2023 [facility] Work Phone: Comment on above: 1 Occurrences starti ng 08/24/2022 until 08/24/2023 ECG COMPLETE ECG COMPLETE ECG 08/24/2022 1:56 PM EST [facility] End: 07-07-2023 Echocardiography ECHO Cardiology Routine Palpitations 1 Occurrences starting 07/07/2022 until 07/07/2023 [facility] Work Phone: Comment on above: 1 Occurrences starti ng 07/07/2022 until 07/07/2023 End: 08-06-2023 Mri brain brain stem w/o w/contrast material MRI BRAIN WO/W IVCON Radiology Routine Dizziness Vision changes 1 Occurrences starting 07/07/2022 until 08/06/2023 [facility] Work Phone: Comment on above: 1 Occurrences starti ng 07/07/2022 until 08/06/2023 End: 09-15-2023 Mri spinal canal cervical w/o & w/contr matrl MRI CERVICAL SPINE WO/W IVCON Radiology Routine Dizziness Vision changes Cervicalgia Disturbance of skin sensation 1 Occurrences starting 08/16/2022 until 09/15/2023 [facility] Work Phone: Comment on above: 1 Occurrences starti ng 08/16/2022 until 09/15/2023 [facility] Immunizations Immunization Date Immunization Notes Care Provider Tayo cullen 09-10-2020 SARS-CoV-2 (COVID-19 ) Ad26 vaccine, recombinant Pamella NILL [facility] 08-12-2020 SARS-CoV-2 (COVID-19 ) Ad26 vaccine, recombinant Pamella NILL [facility] [place] Payers Date Payer Category Payer Unknown [id number] 2021 Unknown [id number] 1982 Unknown [id number] 2.16.8 40.1.378784.3.579.2.647 1982 Unknown [id number] 2.16.8 40.1.307538.3.579.2.647 1982 Unknown [id number] 2.16.8 40.1.822840.3.579.2.647 1982 Unknown [id number] 2.16.8 40.1.066078.3.579.2.647 1982 Unknown [id number] 2.16.84 0.1.452171.3.579.2.593 1982 Unknown [id number] 2.16.84 0.1.864700.3.579.2.593 1982 Unknown [id number] 2.16.84 0.1.504173.3.579.2.593 1982 Unknown [id number] 2.16.84 0.1.803386.3.579.2.593 1982 Unknown [id number] 2.16.84 0.1.297105.3.579.2.593 1982 Unknown [id number] 2.16.84 0.1.494026.3.579.2.593 1982 Unknown [id number] 2.16.84 0.1.583780.3.579.2.593 1982 Unknown [id number] 2.16.84 0.1.230831.3.579.2.593 1982 Unknown [id number] 2.16.84 0.1.564044.3.579.2.593 1982 Unknown [id number] 2.16.84 0.1.665655.3.579.2.593 1982 Unknown [id number] 2.16.84 0.1.928902.3.579.2.593 1982 Unknown [id number] 2.16.84 0.1.969208.3.579.2.593 1982 Unknown [id number] 2.16.84 0.1.840532.3.579.2.593 1982 Unknown [id number] 2.16.84 0.1.227623.3.579.2.593 1982 Unknown [id number] 2.16.84 0.1.599746.3.579.2.593 1982 Unknown [id number] 2.16.84 0.1.890783.3.579.2.1259 1982 Unknown [id number] 2.16.84 0.1.884397.3.579.2.1259 1982 Unknown [id number] 2.16. 840.1.322036.3.579.2.196 1982 Unknown [id number] 2.16.8 40.1.403061.3.579.2.727 1982 Unknown [id number] 2.16.8 40.1.581459.3.579.2.727 1982 Unknown [id number] 2.16.8 40.1.596665.3.579.2.727 1982 Unknown [id number] 2.16.8 40.1.747951.3.579.2.727 1959 Unknown [id number] Social History Date Type Detail Facility Start: 05-01-2021 End: 12-09-2021 Tobacco smoking status Never smoked tobacco (finding) [facility] Tobacco smoking status Never [facility] Start: 01-17-2019 End: 05-01-2021 Sex Assigned At Female [facility] Start: 05-01-2021 End: 07-07-2022 Tobacco use and exposure Smokeless tobacco non-user [facility] Start: 1982 Sex Assigned At Not on file C [facility] Start: 06-27-2022 End: 07-07-2022 Exposure to SARS-CoV-2 (event) Not sure [facility] Start: 05-01-2021 End: 08-24-2022 Alcohol intake Current drinker of alcohol (finding) [facility] Start: 08-24-2022 Alcohol Comment occasionally 1 -2 times a months 2-3 drinks [facility] Start: 01-17-2019 End: 05-01-2021 History of Social function [facility] Start: 05-01-2021 Alcohol Comment social [facility] Start: 03-13-2015 Sex Female (finding) [facility] Clinical Notes 12-30-2021 to 10-02-2024 Telephone Encounter - Nimo Mehta - 10/02/2024 10:24 AM ESTTelephone Encounter - Vivi Dixon - 10/02/2024 10:24 AM ESTTelephone Encounter - Sarah Beth Montes De Oca - 10/02/2024 10:24 AM EST Note Date & Type Note Facility 10-02-2024 Miscellaneous Notes Received new patient referral. Please call patient to schedule a new patient appointment for Facial tingling M62.838 (ICD-10-CM) - Muscle spasm IS THIS DUE TO AN ACCIDENT? IS THIS WORKER'S COMP? PLEASE VERIFY IF THIS IS WORKERS COMP AND DOCUMENT (We do not accept any new workers comp cases) WHAT INSURANCE? HAVE YOU EVER BEEN SEEN BY A NEUROLOGIST BEFORE? 1st attempt- left voicemail Received Referral from: Cristiane Gutiérrez APRN-SARIKA Dx: Facial tingling M62.838 (ICD-10-CM) - Muscle spasm Referred to: 2nd attempt: Left message for patient documented in this encounter [facility] 10-02-2024 Telephone encounter Note Received new patient referral. Please call patient to schedule a new patient appointment for Facial tingling M62.838 (ICD-10-CM) - Muscle spasm IS THIS DUE TO AN ACCIDENT? IS THIS WORKER'S COMP? PLEASE VERIFY IF THIS IS WORKERS COMP AND DOCUMENT (We do not accept any new workers comp cases) WHAT INSURANCE? HAVE YOU EVER BEEN SEEN BY A NEUROLOGIST BEFORE? [facility] 10-02-2024 Telephone encounter Note 1st attempt- left voicemail Received Referral from: JOSE ANTONIO Mcclendon Dx: Facial tingling M62.838 (ICD-10-CM) - Muscle spasm [facility] 10-02-2024 Telephone encounter Note 2nd attempt: Left message for patient [facility] 10-14-2022 Note HNO ID: [id number] Author: RT Mary(R) Service: ? Author Type: [...] RT Mary(R) October 14, 2022 4:55 PM [facility] 10-14-2022 Note HNO ID: [id number] Author: Papa Rea RN Service: Radiology Author [...] DATE: October 14, 2022 TIME: 3:20 PM [facility] 09-09-2022 Note HNO ID: [id number] Author: RT Odessa(R) Service: ? Author Type: [...] 09, 2022 TIME: 2:11 PM PAGER/CONTACT #: [facility] 09-09-2022 History of Present illness Narrative [...] PAGER/CONTACT #: documented in this encounter [facility] 08-24-2022 Note HNO ID: [id number] Author: Janell Sy MD Service: ? Author Type: Physician Type: Progress Notes Filed: 08/24/2022 2:17 PM Note Text: [facility] [place] SECTION OF REGIONAL CARDIOLOGY OUTPATIENT VISIT DATE [...] Cardiac work-up includes: Echocardiogram on 05/19/[address] [facility] showed normal ejection fraction. No valvular [...] ECG COMPLETE 4. Obesity, morbid, BMI 40.0-49.9 ([facility]) E66.01 ECG COMPLETE 5. SVT (supraventricular tachycardia) ([facility]) I47.1 6. Chronic fatigue R53.82 [...] Never Vaping U (more content not included)... [facility] 08-24-2022 History of Present illness Narrative Images from the original note were not included. [facility] [place] SECTION OF REGIONAL CARDIOLOGY OUTPATIENT VISIT DATE August 24, 2022 OUTPATIENT VISIT TYPE NEW PRIMARY CARE PHYSICIAN: To use this Smartlink, specify the provider ID whose address you want to display, e.g., .[employer][1 (where 1 is the provider ID). A [...] Cardiac work-up includes: Echocardiogram on 05/19/[address] [facility] showed normal ejection fraction. No valvular [...] ECG COMPLETE 4. Obesity, morbid, BMI 40.0-49.9 ([facility]) E66.01 ECG COMPLETE 5. SVT (supraventricular tachycardia) ([facility]) I47.1 6. Chronic fatigue R53.82 [...] daily.^Disp: ^Rfl: documented in this encounter [facility] 08-19-2022 Note HNO ID: [id number] Author: Mauri Chun OD Service: ? Author Type: INFORMATION TECHNOLOGY CONSULTANT Type: Progress Notes Filed: 08/19/2022 10:22 AM Note Text: Ocular health is unremarkable with no abnormalities. Normal ON appearance Ophthalmic migraines Glasses Rx given with slight prism [facility] 08-16-2022 Miscellaneous Notes signed We can add it to fully evaluate her symptoms. -LP documented in this encounter [facility] 08-12-2022 Note HNO ID: [id number] Author: Carmen Johnson, PT Service: ? Author [...] Time Minutes (timed/untimed): 60 Carmen Johnson, PT [facility] 08-12-2022 History of Present illness Narrative [...] Johnson PT documented in this encounter [facility] 08-05-2022 Note HNO ID: [id number] Author: Carmen Johnson PT Service: ? Author [...] Planned: 8 Planned Treatment Interventions: Therapeutic exercise (44940);Neuromuscular re-education (45794);Manual therapy (00922);Therapeutic activities (61664);Self-detention management (98570);Patient/Family/Caregiver Education;Gait Training (11036);Canalith Repositioning Maneuvers (23407) PLAN FOR NEXT VISIT: Detailed neck exam [...] Premature atrial contra (more content not included)... [facility] 08-05-2022 History of Present illness Narrative [...] Planned: 8 Planned Treatment Interventions: Therapeutic exercise (80352);Neuromuscular re-education (06497);Manual therapy (39868);Therapeutic activities (93655);Self-detention management (32447);Patient/Family/Caregiver Education;Gait Training (44280);Canalith Repositioning Maneuvers (78299) PLAN FOR NEXT VISIT: Detailed neck exam [...] Positional Testing Right Juan-Hallpike: No nystagmus;Asymptomatic Left Hebron-Hallpike: No nystagmus;Asymptomatic Right Nylen Barany: No nystagmus;Asymptomatic [...] Demonstration;Requires Review/Additional Education TREATMENT: PT Treatment Interventions: Self-Snf Management;Therapeutic Exercise Evaluation Therapeutic Exercise: 1: c/s retractions x 10, cues for technique Skilled Intervention: Patient was educated in proper exercise technique and purpose for exercises. Patient education as noted. Self-Snf Management: 1: Educated regarding potential multifactorial cause [...] Johnson PT documented in this encounter [facility] 07-07-2022 Note HNO ID: [id number] Author: Glenroy Syed APRN.SARIKA Service: ? Author Type: Nurse Practitioner Type: Progress Notes Filed: 07/07/2022 12:28 PM Note Text: [facility] General Neurology New Patient [...] over a month. She has seen an perinatal breastfeeding assistant and was told she was having occular migraine by her metal filer. A couple times a month she gets [...] for 1 dose.N (more content not included)... [facility] 07-07-2022 Miscellaneous Notes Noted. Provider notified. Received medical records from [facility]. Uploaded to chart and forwarded for review. documented in this encounter [facility] 07-07-2022 Instructions Glenroy Syed APRN.CNP - 07/07/2022 9:06 AM EST Plan: Baseline labs MRI Brain for multiple symptoms ECHO for palpitations and arrhythmias Aspirin 81mg daily in the setting of known arrhythmias Consult to [place] for dizziness Consult to Cardiology for second opinion Consult to ophthalmology Follow up after testing documented in this encounter [facility] 07-07-2022 History of Present illness Narrative Images from the original note were not included. [facility] General Neurology New Patient [...] over a month. She has seen an perinatal breastfeeding assistant and was told she was having occular migraine by her metal filer. A couple times a month she gets [...] Finger Abduction (U) 5 Finger Abduction 5 Flash Oven Operator 5 Flash Oven Operator 5 Right Lower Extremity: (of 5) [...] over a month. She has seen an perinatal breastfeeding assistant and was told she was having occular migraine by her metal filer. A couple times a month she gets [...] VT reccommended. Patient wanting second opinion from metal filer within the [facility], referral placed. Unlikely autonomic dysfunction with unremarkable tilt and orthostatic vitals in office unconvincing (did not take BB today). Additionally, with visual changes, recommended seeing neuro salesman/owner. Will obtain additional labs as well. Follow [...] which included preparing to see the patient, [id number] patient care, completing clinical documentation, obtaining and/or reviewing separately obtained history, performing a medically appropriate examination, counseling and educating the patient/family/caregiver, ordering medications, tests, or procedures, and care coordination (not separately reported). Glenroy Syed APRN.[facility] General Neurology [address] [place] [address] Appointment: [phone] In regards to blood work, testing, and radiology reports these are released automatically to the patients. We do not comment on most testing on [employer] in a message or commentary unless there [...] PCP/referring physician documented in this encounter [facility] 03-16-2022 Note EXAM: CHEST [...] by: BETTY MORALES Date: 2022-03-16 18:13 [facility] 12-30-2021 Note The [place], [place] NAME: KAILA VASQUEZ DATE OF : MEDICAL REC#: [id number] CIVIL LITIGATION ATTORNEY: [address] [place] GASTELUM TRANSADMIT DATE: 12/30/2021 09:02:00 POWERHOUSE TENDER DATE: 12/30/2021 21:00 DICTATING PHYSICIAN: PAMELLA SANABRIA [...] . 01/06/2022 08:31:00 [facility] Evaluation + Plan note No data available for this section [facility] [place] Evaluation note Diagnosis Dizziness- Primary Dizziness and giddiness Migraine aura without headache Migraine with aura, without mention of intractable migraine without mention of status migrainosus Palpitations Chronic fatigue Other malaise and fatigue Vision changes Unspecified visual disturbance Disturbance of skin sensation [facility] Diagnosis Dizziness- Primary Dizziness and giddiness Cervicalgia Headaches [facility] Diagnosis Dizziness- Primary Dizziness and giddiness Cervicalgia Headaches [facility] Diagnosis Cervicalgia- Primary Dizziness Dizziness and giddiness Vision changes Unspecified visual disturbance Disturbance of skin sensation [facility] Ocular migraine- Primary Other forms of migraine, without mention of intractable migraine without mention of status migrainosus documented in this encounter [facility] note* Diagnosis KANG (obstructive sleep apnea)- Primary Obstructive sleep apnea (adult) (pediatric) Dizziness Dizziness and giddiness Palpitations Obesity, morbid, BMI 40.0-49.9 (HCC) Morbid obesity SVT (supraventricular tachycardia) (HCC) Other specified cardiac dysrhythmias Chronic fatigue Other malaise and fatigue Vitamin D deficiency Unspecified vitamin D deficiency [facility] Diagnosis Degeneration of intervertebral disc of cervical region with osteophyte of cervical vertebra- Primary documented in this encounter [facility] Discharge instructions No data available for this section General Surgery [place] InstructionsNot on filedocumented in this encounter [facility] ([facility] Outpatient Procedure (Routine) - Authorized Specialty Diagnoses / Procedures Referred By Contac t Referred To Contact 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 Procedures CONSULT TO [facility] OFFICE/OUTPATIENT [facility] 60-74 MINUTES Glenroy Syed, PRESSURE SUPERVISOR.MAGAZINE FEEDER [address] [place] [address] Referral ID Status Reason Start Date Expiration Date Visits Requested Visits Authorized [id number] Authorized PCP Requested Referral 10/15/2022 10/15/2023 1 1 Specialty Diagnoses / Procedures Referred By Contac t Referred To Contact Ophthalmology Diagnoses Ocular migraine Procedures CONSULT TO OPHTHALMOLOGY OFFICE/OUTPATIENT [facility] 60-74 MINUTES Len Shea, PRESSURE SUPERVISOR.MAGAZINE FEEDER [address] [facility] [id number] [place] [address] Josefina Grimes MD [address] [place] [address] Referral ID Status Reason Start Date Expiration Date Visits Requested Visits Authorized [id number] Authorized PCP Requested Referral 08/20/2022 08/20/2023 1 1 Specialty Diagnoses / Procedures Referred By Contac t Referred To Contact Cardiology Diagnoses Dizziness Palpitations Procedures CONSULT TO CARDIOLOGY OFFICE/OUTPATIENT [facility] 60-74 MINUTES Glenroy Syed, PRESSURE SUPERVISOR.MAGAZINE FEEDER [address] [place] [address] Referral ID Status Reason Start Date Expiration Date Visits Requested Visits Authorized [id number] Authorized PCP Requested Referral 2 07/07/2023 1 1 Specialty Diagnoses / Procedures Referred By Contac t Referred To Contact MR IMAGING Diagnoses Dizziness Vision changes Procedures MRI BRAIN WO/W IVCON MRI BRAIN BRAIN STEM W/O W/CONTRAST MATERIAL Glenroy Syed, PRESSURE SUPERVISOR.MAGAZINE FEEDER [id number] [place] [phone] Mr Imaging Referral ID Status Reason Start Date Expiration Date Visits Requested Visits Authorized [id number] Authorized Auto-Generat ed Referral 2 08/21/2022 1 1 Specialty Diagnoses / Procedures Referred By Contac t Referred To Contact Ophthalmology Diagnoses Vision changes Procedures CONSULT TO OPHTHALMOLOGY OFFICE/OUTPATIENT [facility] 60-74 MINUTES Glenroy Syed, PRESSURE SUPERVISOR.MAGAZINE FEEDER [address] [place] [phone] Josefina Grimes MD [address] [place] [address] Referral ID Status Reason Start Date Expiration Date Visits Requested Visits Authorized [id number] Authorized PCP Requested Referral 2 07/07/2023 1 1 Specialty Diagnoses / Procedures Referred By Contac t Referred To Contact [facility] Diagnoses Palpitations Procedures ECHO ECHO TTHRC R-T 2D W/WOM-MODE COMPL SPEC&COLR D Glenroy Syed APRN.MAGAZINE FEEDER [address] [place] [address] [facility] [address] [place] [address] Referral ID Status Reason Start Date Expiration Date Visits Requested Visits Authorized [id number] Authorized Auto-Generat ed Referral 2 07/07/2023 1 1 Additional Source Comments INFORMATION SOURCE (unrecogn ized section and content) DATE CREATED AUTHOR 11/24/2021 [facility] DATE CREATED AUTHOR AUTHOR'S ORGANIZ ATION 07/20/2022 [facility] DATE CREATED AUTHOR AUTHOR'S ORGANIZ ATION 09/06/2022 [facility] DATE CREATED AUTHOR AUTHOR'S ORGANIZ ATION 10/16/2022 [facility] DATE CREATED AUTHOR AUTHOR'S ORGANIZ ATION 10/26/2023 [facility] DATE CREATED AUTHOR AUTHOR'S ORGANIZ ATION 06/09/2024 [facility] DATE CREATED AUTHOR AUTHOR'S ORGANIZ ATION 11/27/2024 [facility] DATE CREATED AUTHOR AUTHOR'S ORGANIZ ATION 12/12/2024 [facility] Source Comments (unrecognize d section and content) In the event this informatio n is protected by the Federal Confidentiality of Alcohol and Drug Abuse Patient Records regulations: The Federal rules restrict any use of the information to criminally investigate or prosecute any alcohol or drug abuse patient.[facility] the event this information is protected by the Federal Confidentiality of Alcohol and Drug Abuse Patient Records regulations: The Federal rules restrict any use of the information to criminally investigate or prosecute any alcohol or drug abuse patient.[facility] Center[facility] the event this information is protected by the Federal Confidentiality of Alcohol and Drug Abuse Patient Records regulations: The Federal rules restrict any use of the information to criminally investigate or prosecute any alcohol or drug abuse patient.[facility] the event this information is protected by the Federal Confidentiality of Alcohol and Drug Abuse Patient Records regulations: The Federal rules restrict any use of the information to criminally investigate or prosecute any alcohol or drug abuse patient.[facility] Center[facility] the event this information is protected by the Federal Confidentiality of Alcohol and Drug Abuse Patient Records regulations: The Federal rules restrict any use of the information to criminally investigate or prosecute any alcohol or drug abuse patient.[facility] Center[facility] the event this information is protected by the Federal Confidentiality of Alcohol and Drug Abuse Patient Records regulations: The Federal rules restrict any use of the information to criminally investigate or prosecute any alcohol or drug abuse patient.[facility] Center[facility] the event this information is protected by the Federal Confidentiality of Alcohol and Drug Abuse Patient Records regulations: The Federal rules restrict any use of the information to criminally investigate or prosecute any alcohol or drug abuse patient.[facility] Center[facility] the event this information is protected by the Federal Confidentiality of Alcohol and Drug Abuse Patient Records regulations: The Federal rules restrict any use of the information to criminally investigate or prosecute any alcohol or drug abuse patient.[facility] Center[facility] the event this information is protected by the Federal Confidentiality of Alcohol and Drug Abuse Patient Records regulations: The Federal rules restrict any use of the information to criminally investigate or prosecute any alcohol or drug abuse patient.[facility] Center[facility] the event this information is protected by the Federal Confidentiality of Alcohol and Drug Abuse Patient Records regulations: The Federal rules restrict any use of the information to criminally investigate or prosecute any alcohol or drug abuse patient.[facility] Reason for Visit (unrecogniz [...] NEW RS PT VESTIBULAR DIZZY Glenroy Syed, ELISEO.MAGAZINE FEEDER [address] [place] [address] Carmen Johnson, PT [address] [place] [address] Referral ID Status Reason Start Date Expiration Date Visits Re quested Visits Authorized [id number] Closed 08/08/2021 08/07/2022 30 30 Reason Comments Physical Therapy Specialty Diagnoses / Procedures Referred By Contac t Referred To Contact PHYSICAL THERAPY Diagnoses Dizziness Procedures Physical Therapy Glenroy Syed APRN.MAGAZINE FEEDER [address] [place] [address] Pt [facility] [address] [place] [address] Referral ID Status Reason Start Date Expiration Date V isits Requested Visits Authorized [id number] Pending Review 08/12/2022 11/10/2022 1 1 Reason Comments Establish Care Palpitations Dizziness Specialty Diagnoses / Procedures Referred By Contronald t Referred To Contact Cardiology Diagnoses Dizziness Palpitations Procedures CONSULT TO CARDIOLOGY OFFICE/OUTPATIENT [facility] 60-74 MINUTES Glenroy Syed, PRESSURE SUPERVISOR.MAGAZINE FEEDER [address] [place] [address] Referral ID Status Reason Start Date Expiration Date V isits Requested Visits Authorized [id number] Closed PCP Requested Referral 07/07/2022 07/07/2023 1 1 Reason Comments Radiology MRI Reason Onset Date Comments neuro referral 10/02/2024 Care Teams (unrecognized sec tion and content) Teachers' Assistant Relationship Specialty Start Date End Date Mert Lama MD [address] [place] [address] Referring Family Medicine 06/10/22 Teachers' Assistant Relationship Specialty Start Date End Date Mert Lama MD [address] [place] [address] Referring Family Medicine 06/10/22 Teachers' Assistant Relationship Specialty Start Date End Date Mert Lama MD [address] [place] [address] Referring Family Medicine 06/10/22 Teachers' Assistant Relationship Specialty Start Date End Date Mert Lama MD [address] [place] [id number] Referring Family Medicine 06/10/22 Teachers' Assistant Relationship Specialty Start Date End Date Mert Lama MD [address] [place] [id number] Referring Family Medicine 06/10/22 Teachers' Assistant Relationship Specialty Start Date End Date Mert Lama MD [address] [place] [address] Referring Family Medicine 06/10/22 Teachers' Assistant Relationship Specialty Start Date End Date Mert Lama MD [address] [place] [address] Referring Family Medicine 06/10/22 Teachers' Assistant Relationship Specialty Start Date End Date Mert Lama MD [address] [place] [address] Referring Family Medicine 06/10/22 Teachers' Assistant Relationship Specialty Start Date End Date Mert Lama MD PCP - General Family Medicine 02/25/21 FOR RECORDS PERTAINING TO PATIENTS WHO ARE [...] BE BASED ON THE PRIMARY CLINICAL RECORDS. [employer] [facility]. provides no warranty or guarantee of the accuracy or completeness of information in this document.
[2024-12-24 10:20] VITALS: BP 122/86; PULSE 72; TEMP 36.7; O2SAT 98
[2024-12-24 11:07] VITALS: BP 136/88; PULSE 66; O2SAT 98
[2024-12-24 11:08] VITALS: BP 138/90; PULSE 68; O2SAT 99
[2024-12-24] MEDS: LIDOCAINE HCL 2% 400 MG/20 ML MDV INJ (11:10)
[2024-12-24] MEDS: BUPIVACAINE HCL 0.25% PF 25 MG/10 ML VIAL 3 ML INJ (11:10)
--- NOTE | 2024-12-24 11:11 | W.PM.PROCNOT ---
Date of procedure: 12/24/24 Pre-op diagnosis: Pain due to cervical spondylosis without myelopathy Post-op diagnosis: same as pre-op Procedure: Procedure: Bilateral C4-5, 5-6 medial branch block Medications: Bupivacaine 0.25% 6cc The patient was seen and examined in the preoperative holding area.? The informed consent was obtained and placed on the chart.? The patient was brought to the medical procedure unit and placed in the prone position.? A timeout was completed verifying correct patient, procedure site, positioning, plan, and special equipment.? Using aseptic technique, the needle was placed at left C4.? Under direct fluoroscopic visualization, a Quincke tip needle was advanced to the midpoint of the waist of the articular pillar at the respective medial branch segment. The above-mentioned injectate was placed in a 1 mL aliquot proceeded by negative aspiration.? The needle was removed.? The procedure was completed at all left C5, 6. The same procedure, at the same levels, was then completed on the right side. Insertion site was covered.? Patient was taken to the postprocedural recovery area and monitored for an appropriate length of time before found suitable for discharge in the accompaniment of a responsible adult. Anesthesia: Local Surgeon: Ari Sellers Pathology: none sent Condition: stable Disposition: no change
== END 2024-12-24 11:16 | disposition home or self-care (01) ==
LOC: SURGOUT 09:34
PROVIDERS: PCP Family Medicine; Visit Provider Anesthesiology
DX: M47.812 Spondylosis without myelopathy or radiculopathy, cervical region (principal); M54.2 Cervicalgia
CPT/HCPCS: 64490; 64491; J0665

== ENCOUNTER 2025-01-03 07:38 | Outpatient (OUT) | payer BC, SELFPAY ==
--- OUTSIDE RECORDS SUMMARY | 2024-01-13 05:00 | XMS_ITS ---
Author Organization [facility] Address [address] [place] [address] Care Team Providers Care Furnace Hand Name Role Phone MichaelÁlvaro Primary Care Provider Jeanna Ramesh Unavailable [phone] Allergies No Known Allergies Reason For Referral Reason REFERRAL TO [facility] Diagnosis 1 Low back pain, unspe cified (M54.50) Referral Organization [facility] Referring Provider First Name Adarsh Referring Provider Last Name [facility] Referring Provider Speciality Orthopedic Surgery Referred Organization Pain clinic General Notes Christi Lui 2023 09:53:22 AM >, Christi Lui 01/25/2024 08:53:20 AM >REFERRAL FAXED TO [facility] Referral Priority Routine REASON FOR VISIT Low Back Pain Social History Tobacco Use: Social History Observation Description Date Details (start date - stop date) Never Smoker NA - NA AUDIT-C (Standard) Question Answer Notes Did you have a drink containing alcohol in the p ast year? No Points 0 Interpretation Negative Tobacco Control (Standard) Question Answer Notes Tobacco use: Nonsmoker Problems Problem Type SNOMED Code ICD Code Onset Dates Problem Status W/U Status Risk Notes Problem [id number] Spondylosis with out myelopathy or radiculopathy, lumbar region (M47.816) Active confirmed Problem [id number] Other intervertebral disc degeneration, lumbosacral region (M51.37) Active confirmed Encounters Encounter Location Date Provider Diagnosis [facility] Office [address] [place] [address] [place] [address] 01/13/2024 Jeanna Shukla Spondylosis without myelopathy or radiculopathy, lumbar region M47.816 and Other intervertebral disc degeneration, lumbosacral region M51.37 Assessments Encounter Date Diagnosis (ICD Code) Assessment Notes Treatment Notes Treatment Clinical Notes Section Notes 01/13/2024 Spondylosis without myelopathy or radiculopathy, lumbar region (ICD-10 - M47.816) 1. Lumbar Facet Arthropath y 2. L5/S1 DDD 01/13/2024 Other intervertebral disc degeneration, lumbosacral region (ICD-10 - M51.37) 1. Lumbar Facet Arthropath y 2. L5/S1 DDD 01/13/2024 Other Patient evaluated and plan established by Dr. Quiroga. MRI lumbar spine reviewed and discussed with patient. Nonsurgical treatments were discussed and recommended at this time. Will refer to pain management for consideration for RFA. We will see the patient back on an as-needed basis. The patient is very much in agreement with the treatment and/or diagnostic plan set forth and all questions were answered to the patient's satisfaction. Thanks once again. If we can be of further service to your patients with disorders of the spine, cervical, thoracic, or lumbar, please do not hesitate to contact Dr. Quiroga. Best regards, 1. Lumbar Facet Arthropath y 2. L5/S1 DDD Plan Of Treatment Treatment Notes Assessment Notes Other Patient evaluated and plan established by Dr. Quiroga. MRI lumbar spine reviewed and discussed with patient. Nonsurgical treatments were discussed and recommended at this time. Will refer to pain management for consideration for RFA. We will see the patient back on an as-needed basis. The patient is very much in agreement with the treatment and/or diagnostic plan set forth and all questions were answered to the patient's satisfaction. Thanks once again. If we can be of further service to your patients with disorders of the spine, cervical, thoracic, or lumbar, please do not hesitate to contact Dr. Quiroga. Best regards, Referrals Referral Date Details 01/13/2024 01/13/2024, REFERRAL TO [facility] Next Appt Details Follow Up: prn, Reason: Progress Notes * KAILA OTOOLE NDOB: [birth year] (44 yo F)Acc No.[id number]:01/13/2024 Patient: KAILA MOSS Provider: ELENA Edmonds :1980 A ge:43 Y S ex:Female Date:01/13/2024 Address:[address] [id number] Pcp:Álvaro Rodriguez Subjective: * Chief Complaints: * 1 . Low Back Pain. * HPI: G eneral Follow Up Information: Dictated by Jeanna Shukla PA-C Thank you for referring your patient to see Dr. Quiroga in surgical spine consultation at the [facility]. 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 She describes her low back pain as sharp and stabbing pain of the mid/lower back that wraps around her hips and radiates down the back of her legs. She also reports weakness in the back of her legs. Patient states that she will have episodes of worst pain that she can usually get to resolve with steroids, muscle relaxers, and pain medication. Recently since December 20 she has had increased pain that she has not been able to relieve yet with 2 rounds of steroids, muscle relaxer, and 2 different pain medications. She did visit the ER recently for this pain. She denies bowel or bladder incontinence. She has tried physical therapy which has not helped. She does note that her PCP might refer her to a prosthetist as she has multiple painful joints. She has a VAS score of 7 out of 10. Her pain is aggravated by leaning and bending forward, rising from sitting, changing positions, coughing/sneezing. She is a non-smoker. G eneral Info per Patient Report: Side affected is B ilateral . J oint or body part affected is N fallon, Lower back, Hip, Leg . D ate of Injury: 2 2 years/ This episode 12/18/2023. S tart of Pain/Cause of Injury 0 12/18/2023. P ain occurred I t just did. This episode started mothers day. I did feel a stabbing pain mid back, when started left side was worst. Pain wraps around hips. W ork related: N o has missed 3-4 days of work. M otor vehicle accident: N o. T hird green party responsibility: N o. W hat activities make your symptoms worse? L eaning forward, bending forward, rising from sitting, changing positions, coughing/sneezing. Q uality of pain is s harp, stabbing pain mid/lower back wraps around hips down back of legs. Weakness in back and legs, using heating pad daily. W hich of the following treatments have you tried? A nti-Inflammatory medications, Muscle relaxants, Narcotic pain medications, Hot packs, Physical Therapy, Back/Neck exercises. Traction. H ave you been seen by a Dentist in the last year? N o. D o you have any dental problems? N o. * ROS: C onstitutional: Fever/Chills Y es. D ifficulty Sleeping Y es. M arked Fatigue Y es. N ight Sweats Y es. E ar/Nose/Throat: Difficulty Swallowing Y es. E yes: Glasses/ Contacts Y es. C hange in Vision Y es.? G astrointestinal: Hemorrhoids Y es. S kin: Easy Bruising Y es. S wollen Ankles Y es. ? M usculoskeletal: Joint pain Y es. B ack Pain Y es. N fallon Pain?Yes. M uscle Pain Y es. J oint Swelling Y es. C ardiovascular: Abnormal Heart Beat Y es. L eg Swelling Y es. ? G enitourinary: Denies I ncontinence. P elvic Pain Y es. N eurological: Tremors Y es. H eadaches/Migraines Y es. P sychiatric: Anxiety Y es. 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 * Family History: N o Family History documented.. * Social History: E xercise regularly D o you exercise? N o. D o you live W ith whom do you live? Family. W hat is your place of residence? W here do you live? P rivate home.?Working status W hat is your working status W or[employer]. M arital status M arital Status M arried. A REMI-C (Standard) D id you have a drink containing alcohol in the past year? N o, P oints 0 , I nterpretation N egative. T obacco Control (Standard) T obacco use: N onsmoker. * Medications: N one * Allergies: N .K.D.A. Objective: * Vitals: P ain Scale (NRS): 7. * Examination: G eneral examination: O n examination, the patient is well-developed, well-nourished, well-groomed, alert and oriented x3, normal mood. Walks with antalgic gait, but can tandem walk. Limited lumbar ROM. Midline tender over the lumbar spine and bilateral paraspinal musculature. 5/5 muscle strength bilateral lower extremities. Sensory intact lower extremities. Positive SLR bilaterally, negative clonus bilaterally. 2+ deep tendon reflexes bilateral lower extremities. X -ray Imaging Studies: 4 view x-rays of the lumbar spine were reviewed from the from 12/19/2023 that revealed L5-S1 mild degenerative disc disease and moderate degenerative facet arthropathy, right greater than left. . M RI Imaging Studies: M RI lumbar spine without contrast was reviewed from the from 12/29/2023; Impression:Mild degenerative disc desiccation T7-T8. No significant disc herniation. No central or foraminal stenosis. . Assessment: * Assessment: 1. S pondylosis without myelopathy or radiculopathy, lumbar region - M47.816 (Primary) ? 2 . O ther intervertebral disc degeneration, lumbosacral region - M51.37 ? 1. Lumbar Facet Arthropathy 2. L5/S1 DDD. Plan: * Treatment: * Follow Up: p rn Forms: * Images: * Electronic signature of Abundio Shukla PA-C on 01/03/2025 at 07:40 AM EDT Sign off status: Pending * Provider: ELENA Edmonds Date: 0 01/13/2024 Generated for Babs bishop/Taylor/Nirav on: 0 01/03/2025 07:40 AM EDT History and Physical Notes * HPI (History of Present Illness) Category Sub-Category Detail Notes Category Not es General Follow Up Information Dictated by Jeanna Shukla PA-C Thank you for referring your patient to see Dr. Quiroga in surgical spine consultation at the [facility]. 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 She describes her low back pain as sharp and stabbing pain of the mid/lower back that wraps around her hips and radiates down the back of her legs. She also reports weakness in the back of her legs. Patient states that she will have episodes of worst pain that she can usually get to resolve with steroids, muscle relaxers, and pain medication. Recently since December 20 she has had increased pain that she has not been able to relieve yet with 2 rounds of steroids, muscle relaxer, and 2 different pain medications. She did visit the ER recently for this pain. She denies bowel or bladder incontinence. She has tried physical therapy which has not helped. She does note that her PCP might refer her to a prosthetist as she has multiple painful joints. She has a VAS score of 7 out of 10. Her pain is aggravated by leaning and bending forward, rising from sitting, changing positions, coughing/sneezing. She is a non-smoker. General Info per Patient Report Side affected is Bilateral Joint or body part affected is Neck, Low er back, Hip, Leg Pain occurred It just did. This ep isode started mothers day. I did feel a stabbing pain mid back, when started left side was worst. Pain wraps around hips Work related: No has missed 3-4 da ys of work Motor vehicle accident: No Quality of pain is sharp, stabbing pain mid/lower back wraps around hips down back of legs. Weakness in back and legs, using heating pad daily Date of Injury: 22 years/ This episo de 12/18/2023 Start of Pain/Cause of Injury 12/18/2023 Third green party responsibility: No What activities make your symptoms worse ? Leaning forward, bending forward, rising from sitting, changing positions, coughing/sneezing Which of the following treat ments have you tried? Anti-Inflammatory medications, Muscle re laxants, Narcotic pain medications, Hot packs, Physical Therapy, Back/Neck exercises. Traction Have you been seen by a Robertson ist in the last year? No Do you have any dental problems? No Examination Category Sub-Category Detail Notes Category Not es General examination On exami nation, the patient is well-developed, well-nourished, well-groomed, alert and oriented x3, normal mood. Walks with antalgic gait, but can tandem walk. Limited lumbar ROM. Midline tender over the lumbar spine and bilateral paraspinal musculature. 5/5 muscle strength bilateral lower extremities. Sensory intact lower extremities. Positive SLR bilaterally, negative clonus bilaterally. 2+ deep tendon reflexes bilateral lower extremities. X-ray Imaging Studies 4 view x-rays of the lumbar spine were reviewed from the from 12/19/2023 that revealed L5-S1 mild degenerative disc disease and moderate degenerative facet arthropathy, right greater than left. MRI Imaging Studies MRI lumbar spine without contrast was reviewed from the from 12/29/2023; Impression:Mild degenerative disc desiccation T7-T8. No significant disc herniation. No central or foraminal stenosis. Consultation Request Notes Referral Date Referring Provider Referred Provider Not es 01/13/2024 Adarsh Hernandez , [facility] TO [facility]
--- OUTSIDE RECORDS SUMMARY | 2025-01-03 07:40 | XMS_ITS | Encounter Summary ---
Author Organization [facility] Address [address] [place] [address] Care Team Providers Care Power Marketer Name Role Phone Fina Lama MD Unavailable [phone] Source Comments In the event this information is protected by the Federal Confidentiality of Alcohol and Drug AbusePatient Records regulations: The Federal rules restrict any use of the information to criminally investigate or prosecute any alcohol or drug abuse patient.[facility] Encounter Details Date Type Department Care Team (Late st Contact Info) Description 08/30/2022 Get Medical Advice Cardiology [address] [place] [address] Malka Sy MD [address] [facility] [place] [address] Question regarding EKG RHYTHM STRIP COMPLETE Social History Tobacco Use Types Packs/Day Years Used Date Smoking Tobacco: Never Smokeless Tobacco: Never Alcohol Use Standard Drinks/Week Comments Yes 0 (1 standard drink = 0.6 oz pure alcohol) occasionally 1-2 times a months 2-3 drinks Area Deprivation Index Answer Date Paulino rded National Score (1-100), lower number is lower ri sk 65 08/22/2022 State Score (1-10), lower number is lower risk N ot on file 08/22/2022 Data from: https://www.neighborhoodatlas.medicine.[facility].edu/. Last address used for calculation [address] 08/22/2022 Comments No Sex and Gender Information Value Date Recorded Sex Assigned at Not on file Legal Sex Female 2:27 PM EDT Gender Identity Not on file Sexual Orientation Not on file documented as of this encounter Plan of Treatment Not on file documented as of this encounter Visit Diagnoses Not on filedocumented in this encounter Care Teams Power Marketer Relationship Specialty Start Date End Date Fina Lama MD [address] [place] [address] Referring Family Medicine 06/10/22 documented as of this encounter
--- OUTSIDE RECORDS SUMMARY | 2025-01-03 07:40 | XMS_ITS | Encounter Summary ---
Author Organization [facility] Address [address] [address] Care Team Providers Care Superintendent Stations Name Role Phone Álvaro Rodriguez MD Primary Care Provider [phone] Reason for Visit * Reason Comments Med Refill Encounter Details Date Type Department Care Team (Late st Contact Info) Description 09/27/2023 Refill [facility] [address] [place] [address] Vishal Zarate MD [address] [place] [address] SVT (supraventricular tachycardia) Social History Tobacco Use Types Packs/Day Years Used Date Smoking Tobacco: Never Assessed [place] Safety & Environment Answer Date Rec orded Fear of Current or Ex-Partner Not on file Emotionally Abused Not on file 09/29/2023 Physically Abused Not on file 09/29/2023 Sexually Abused Not on file 09/29/2023 Physically or Sexually Abused Not on file Sex and Gender Information Value Date Recorded Sex Assigned at Not on file Gender Identity Not on file Sexual Orientation Not on file documented as of this encounter Plan of Treatment Upcoming Encounters Date Type Department Care Team (Late st Contact Info) Description 01/15/2025 3:15 PM EDT [facility] [address] [place] [address] Vishal Zarate MD [address] [place] [address] documented as of this encounter Visit Diagnoses Diagnosis SVT (supraventricular tachycardia) Other specified cardiac dysrhythmias documented in this encounter Care Teams Superintendent Stations Relationship Specialty Start Date End Date Álvaro Rodriguez MD [address] [place], [place] [id number] PCP - General Family Medicine 12/15/22 documented as of this encounter
--- OUTSIDE RECORDS SUMMARY | 2025-01-03 07:40 | XMS_ITS | Encounter Summary ---
Author Organization [facility] Address [address] [place] [address] Care Team Providers Care Adult Parole Officer Name Role Phone Fina Lama MD Unavailable [phone] Source Comments In the event this information is protected by the Federal Confidentiality of Alcohol and Drug AbusePatient Records regulations: The Federal rules restrict any use of the information to criminally investigate or prosecute any alcohol or drug abuse patient.[facility] Encounter Details Date Type Department Care Team (Late st Contact Info) Description 09/07/2022 [place] [address] Provider, Ccf Questionnaire Submission Social History Tobacco Use Types Packs/Day Years [...] N ot on file 08/22/2022 Data from: https://www.neighborhoodatlas.medicine.[facility].edu/. Last address used for calculation [address] [...] on filedocumented in this encounter Care Teams Adult Parole Officer Relationship Specialty Start Date End Date Fina Lama MD [address] [place] [address] Referring Family Medicine 06/10/22 documented as of this encounter
--- OUTSIDE RECORDS SUMMARY | 2025-01-03 07:40 | XMS_ITS | Encounter Summary ---
Author Organization [facility] Address [address] [place] [address] Care Team Providers Care Network Operations Project Manager Name Role Phone Fina Lama MD Unavailable [phone] Source Comments In the event this information is protected by the Federal Confidentiality of Alcohol and Drug AbusePatient Records regulations: The Federal rules restrict any use of the information to criminally investigate or prosecute any alcohol or drug abuse patient.[facility] Encounter Details Date Type Department Care Team (Addi st Contact Info) Description 07/27/2022 [place] [address] Provider, Ccf MRI Screening Questionnaire Completion Required Social History Tobacco Use Types Packs/Day Years Used Date Smoking Tobacco: Never Smokeless Tobacco: Never Comments Unknown Sex and Gender Information Value Date Recorded Sex Assigned at Not on file Legal Sex Female 2:27 PM EDT Gender Identity Not on file Sexual Orientation Not on file COVID-19 Exposure Response Date Recorded In the last 10 days, have yo u been in contact with someone who was confirmed or suspected to have Coronavirus/COVID-19? No / Unsure 07/07/2022 8:05 AM EST documented as of this encounter Plan of Treatment Not on file documented as of this encounter Visit Diagnoses Not on filedocumented in this encounter Care Teams Network Operations Project Manager Relationship Specialty Start Date End Date Fina Lama MD [address] [facility] [address] Referring Family Medicine 06/10/22 documented as of this encounter
--- OUTSIDE RECORDS SUMMARY | 2025-01-03 07:40 | XMS_ITS | Clinical Summary ---
Author Organization [facility] Address [address] [place] [address] Care Team Providers Care Edge Blacker Name Role Phone Álvaro Rodriguez MD Primary Care Provider [phone] Allergies No known active allergies Medications metoprolol tartrate (Lopressor) 50 MG tablet Take 50 mg by mouth 10/22/2022 Active cyanocobalamin (Vitamin B-12) 1000 MCG tablet Take 1 tablet by mouth in the morning. 10/22/2022 Active Family History Medical History Relation Name Comments Graves' disease Brother Epilepsy Daughter 1 oldest Arthritis Father Hypertension Father Kidney disease Father CKD stage 3 Leukemia Father CLL Alcohol dependence Mother Drug dependence Mother Mental illness Mother Ovarian cancer Mother Supraventricular tachycardia Son Relation Name Status Comments Brother x2 Daughter 1 oldest Alive Daughter 2 Alive Father Alive Mother Sister x3 Son Alive Social History Tobacco Use Types Packs/Day Years Used Date Smoking Tobacco: Never Tobacco Cessation:Counseling Given: Not Answered Alcohol Use Standard Drinks/Week Comments Yes 0 (1 standard drink = 0.6 oz pur e alcohol) Comments No Sex and Gender Information Value Date Recorded Sex Assigned at Not on file Legal Sex Female 8:13 PM EDT Gender Identity Not on file Sexual Orientation Not on file Last Filed Vital Signs Vital Sign Reading Time Taken Comments Blood Pressure 120/80 10/25/2023 8:45 AM EDT Pulse - - Temperature - - Respiratory Rate - - Oxygen Saturation - - Inhaled Oxygen Concentration - - Weight 118 kg (260 lb 6.4 oz) 10/25/2023 8:45 AM EDT Height 163.8 cm (5' 4.5 ) 04/14/2022 12:00 PM ED T Body Mass Index 44.01 04/14/2022 12:00 PM EDT Plan of Treatment Health Maintenance Due Date Last Done Comments Pap Smear 11/30/2003 Cervical Cancer Screening 2012 HPV/Cotest 2012 Mammogram 2022 Influenza Vaccine (Season Ended) 2025 Insurance [facility] Member Subscriber Plan / Payer (Ef fective 2022-Present) Name:Jeanette Vasquez Member ID:[id number] Relation to Subscriber:Self Name:Jeanette Vasquez Subscriber ID:[id number] Payer ID:Not on file Type:Not on file Address: [facility] [address] [place] [address] Care Teams Edge Blacker Relationship Specialty Start Date End Date Álvaro Rodriguez MD PCP - General Family Medicine 08/25/23
--- OUTSIDE RECORDS SUMMARY | 2025-01-03 07:40 | XMS_ITS | Encounter Summary ---
Author Organization [facility] Address [address] [place] [address] Care Team Providers Care Office Administrative Assistant Name Role Phone Álvaro Rodriguez MD Primary Care Provider [phone] Reason for Visit * Reason Comments Med Refill Encounter Details Date Type Department Care Team (Late st Contact Info) Description 03/25/2023 Refill [facility] Cardiology [address] [place] [address] Courtney Medina, SARIKA [address] [place] [address] Supraventricular tachycardia Social History Tobacco Use Types Packs/Day Years Used Date Smoking Tobacco: Never Assessed Sex and Gender Information Value Date Recorded Sex Assigned at Not on file Gender Identity Not on file Sexual Orientation Not on file documented as of this encounter Plan of Treatment Upcoming Encounters Date Type Department Care Team (Late st Contact Info) Description 01/15/2025 3:15 PM EDT Office Visit [facility] at [facility] [address] [place] [address] Vishal Zarate MD [address] [place] [address] documented as of this encounter Visit Diagnoses Diagnosis Supraventricular tachycardia Other specified cardiac dysrhythmias documented in this encounter Care Teams Office Administrative Assistant Relationship Specialty Start Date End Date Álvaro Rodriguez MD [address] [place] [address] PCP - General Family Medicine 12/15/22 documented as of this encounter
--- OUTSIDE RECORDS SUMMARY | 2025-01-03 07:40 | XMS_ITS | Encounter Summary ---
Author Organization [facility] Address [address] [place] [address] Care Team Providers Care Continuous Wave Operator Name Role Phone Fina Lama MD Unavailable [phone] Source Comments In the event this information is protected by the Federal Confidentiality of Alcohol and Drug AbusePatient Records regulations: The Federal rules restrict any use of the information to criminally investigate or prosecute any alcohol or drug abuse patient.[facility] Encounter Details Date Type Department Care Team (Late st Contact Info) Description 10/12/2022 [place] [address] Provider, Ccf Questionnaire Submission Social History Tobacco [...] N ot on file 08/22/2022 Data from: https://www.neighborhoodatlas.medicine.[facility].edu/. Last address used for calculation [address] [...] on filedocumented in this encounter Care Teams Continuous Wave Operator Relationship Specialty Start Date End Date Fina Lama MD [address] [place] [address] Referring Family Medicine 06/10/22 documented as of this encounter
--- OUTSIDE RECORDS SUMMARY | 2025-01-03 07:40 | XMS_ITS | Encounter Summary ---
Author Organization [facility] Address [address] [place] [address] Care Team Providers Care Genetic Technologist Name Role Phone Fina Lama MD Unavailable [phone] Source Comments In the event this information is protected by the Federal Confidentiality of Alcohol and Drug AbusePatient Records regulations: The Federal rules restrict any use of the information to criminally investigate or prosecute any alcohol or drug abuse patient.[facility] Encounter Details Date Type Department Care Team (Late st Contact Info) Description 10/15/2022 Get Medical Advice Neurology [address] [place] [address] Provider, Ccf Question regarding MRI CERVICAL SPINE WO/W IVCON Social History Tobacco Use Types Packs/Day Years [...] N ot on file 08/22/2022 Data from: https://www.neighborhoodatlas.medicine.[facility].edu/. Last address used for calculation [address] 08/22/2022 Comments No Sex and Gender Information Value Date Recorded Sex Assigned at Not on file Legal Sex Female 2:27 PM EDT Gender Identity Not on file Sexual Orientation Not on file documented as of this encounter Miscellaneous Notes * Telephone Encounter - Constance Ch RN - 10/15/2022 10:57 AM EST Will forward for review. documented in this encounter Plan of Treatment Not on file documented as of this encounter Visit Diagnoses Not on filedocumented in this encounter Care Teams Genetic Technologist Relationship Specialty Start Date End Date Fina Lama MD [address] [place] [address] Referring Family Medicine 06/10/22 documented as of this encounter
--- OUTSIDE RECORDS SUMMARY | 2025-01-03 07:40 | XMS_ITS | Encounter Summary ---
Author Organization [facility] Address [address] [place] [address] Care Team Providers Care Utility Accounts Director Name Role Phone Fina Lama MD Unavailable [phone] Source Comments In the event this information is protected by the Federal Confidentiality of Alcohol and Drug AbusePatient Records regulations: The Federal rules restrict any use of the information to criminally investigate or prosecute any alcohol or drug abuse patient.[facility] Encounter Details Date Type Department Care Team (Late st Contact Info) Description 07/14/2022 Get Medical Advice Neurology [address] [place] [phone] Provider, Ccf Positive ESEQUIEL Social History Tobacco Use Types Packs/Day Years [...] on filedocumented in this encounter Care Teams Utility Accounts Director Relationship Specialty Start Date End Date Fina Lama MD [address] [facility] [place] [address] Referring Family Medicine 06/10/22 documented as of this encounter
--- OUTSIDE RECORDS SUMMARY | 2025-01-03 07:40 | XMS_ITS | Encounter Summary ---
Author Organization [facility] Address [address] [place] [address] Care Team Providers Care Timber Harvester Operator Name Role Phone Fina Lama MD Unavailable Source Comments In the event this information is protected by the Federal Confidentiality of Alcohol and Drug AbusePatient Records regulations: The Federal rules restrict any use of the information to criminally investigate or prosecute any alcohol or drug abuse patient.[facility] Encounter Details Date Type Department Care Team (Late st Contact Info) Description 10/11/2022 Patient Msg MRI Q [address] [address] Provider, Cc MRI Social History Tobacco Use Types Packs/Day Years [...] N ot on file 08/22/2022 Data from: https://www.neighborhoodatlas.medicine.[facility].edu/. Last address used for calculation [address] [...] on filedocumented in this encounter Care Teams Timber Harvester Operator Relationship Specialty Start Date End Date Fina Lama MD [address] [place] [address] Referring Family Medicine 06/10/22 documented as of this encounter
--- OUTSIDE RECORDS SUMMARY | 2025-01-03 07:41 | XMS_ITS | Clinical Summary ---
Author Organization [facility] Address [id number] [address] [place] [address] Care Team Providers Care Pediatrician/Medical Doctor Name Role Phone Fina Lama MD Primary Care Provider [phone] Allergies No known active allergies Medications metoprolol tartrate (LOPRESSOR) 25 mg tablet Take 25 mg by mouth 2 (two) times a day. TABLET BID Active QUEtiapine (SEROquel) 25 mg tablet Take 25 mg by mouth nightly. Active estradioL (ESTRACE) 0.01 % (0.1 mg/gram) vaginal cream Insert 2 g into the vagina daily. 2 NIGHTS WEEKLY Active topiramate (TOPAMAX) 25 mg tabletIndication s:Sensory disturbance,Maile ntractable episodic headache, unspecified headache type,Chronic pain syndrome Take 1 tablet (25 mg total) by mouth 2 (two) times a day. 60 tablet 3 1 Active Additional Information Patient not taking.Reported on 05/01/2021 DULoxetine (CYMBALTA) 30 mg capsuleIndicatio ns:Sensory disturbance,Maile ntractable headache, unspecified chronicity pattern, unspecified headache type,Chronic pain syndrome Take 1 capsule (30 mg total) by mouth nightly. 30 capsule 3 1 Active Active Problems Problem Noted Date Diagnosed Date Chronic pain syndrome 05/01/2021 Autonomic dysfunction 05/01/2021 Chronic bilateral low back pain with bilateral s ciatica 05/01/2021 Nonintractable headache 02/25/2021 Visual aura 02/25/2021 Sensory disturbance 02/25/2021 Family History Medical History Relation Name Comments Arthritis Father Cancer Father lukemia Heart disease Father Diabetes Maternal Grandfather Alcohol abuse Mother Cancer Mother ovarian Relation Name Status Comments Father Alive Maternal Grandfather Mother Social History Tobacco Use Types Packs/Day Years Used Date Smoking Tobacco: Never Smokeless Tobacco: Never Alcohol Use Standard Drinks/Week Comments Yes 0 (1 standard drink = 0.6 oz pur e alcohol) social PHQ-2 Answer Date Recorded Total Score 12 02/25/2021 Childcare Answer Date Recorded Childcare Unknown 01/17/2019 Employment Answer Date Recorded Employment Unknown 01/17/2019 Comments Unknown Sex and Gender Information Value Date Recorded Sex Assigned at Not on file Legal Sex Female 11:24 AM EDT Gender Identity Not on file Sexual Orientation Not on file Last Filed Vital Signs Vital Sign Reading Time Taken Comments Blood Pressure 110/70 05/01/2021 9:04 AM EDT Pulse 83 05/01/2021 9:04 AM EDT Temperature - - Respiratory Rate - - Oxygen Saturation - - Inhaled Oxygen Concentration - - Weight 104.2 kg (229 lb 12.8 oz) 05/01/2021 9:04 AM EDT Height 167.6 cm (5' 6 ) 05/01/2021 9:04 AM EDT Body Mass Index 37.09 05/01/2021 9:04 AM EDT Plan of Treatment Health Maintenance Due Date Last Done Comments Depression Screening 1994 Tobacco Screening 1994 Adult BMI Screening 2000 Pap Smear 11/30/2003 DTaP,Tdap and Td Vaccines (6 - Tdap) 12/29/2003 12/28/1993, 02/28/1991, 08/31/1989, Additional history exists COVID-19 Vaccine (3 - 2023-2 5 season) 2024 09/10/2020, 08/12/2020 Influenza Vaccine 04/08/2025 Medical Devices Not on file Care Teams Pediatrician/Medical Doctor Relationship Specialty Start Date End Date Fina Lama MD PCP - General Family Medicine 02/25/21
--- OUTSIDE RECORDS SUMMARY | 2025-01-03 07:41 | XMS_ITS | Referral Summary ---
Author Organization [facility] Address [address] [place] [address] Care Team Providers Care Icicle 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 Name Role Phone Álvaro Rodriguez MD Primary Care Provider [phone] Encounters Date Type Department Care Team Description 12/11/2024 Refill [facility] [address] [place] [phone] Vishal Zarate MD SVT (supraventricular tachycardia) 12/07/2024 Refill [facility] [address] [place] [phone] Vishal Zarate MD SVT (supraventricular tachycardia) 11/03/2024 Refill [facility] [address] [place] [phone] Vishal Zarate MD SVT (supraventricular tachycardia) 10/24/2024 5:30 PM EDT Ancillary Procedure [facility] [address] [place] [phone] Awareness of heartbeats from Last 3 Months Allergies No known active allergies Medications Medication Sig Dispensed Refills Start Date End Date Status metoprolol tartrate (Lopressor) 50 mg tabletIndications:SVT (supraventricular tachycardia) TAKE 1 TABLET IN THE MORNING AND AT BEDTIME 60 tablet 11/05/2024 Active Active Problems Problem Noted Date Diagnosed Date Anxiety 12/15/2022 Overview (12/15/2022): unspecified, chronic Anemia 12/15/2022 Disorder of autonomic nervous system 12/15/2022 Flushing 12/15/2022 Nocturia 12/15/2022 Mixed incontinence urge and stress 12/15/2022 Migraines 12/15/2022 History of renal calculi 12/15/2022 History of recurrent urinary tract infection 05/2023 Fibromyalgia 12/15/2022 Pain of foot 12/15/2022 Plantar fasciitis 12/15/2022 Paroxysmal tachycardia 12/15/2022 Rectal hemorrhage 12/15/2022 Sinus tachycardia 12/15/2022 Sleep disorder 12/15/2022 Weight gain 12/15/2022 Implantable loop recorder present 12/15/2022 Chronic fatigue 08/24/2022 Dizziness 08/24/2022 Obesity, morbid, BMI 40.0-49.9 08/24/2022 KANG (obstructive sleep apnea) 08/24/2022 SVT (supraventricular tachycardia) 08/24/2022 Vitamin D deficiency 08/24/2022 Autonomic dysfunction 05/01/2021 Chronic pain syndrome 05/01/2021 Chronic bilateral low back pain with bilateral s ciatica 05/01/2021 Visual aura 02/25/2021 Sensory disturbance 02/25/2021 Nonintractable headache 02/25/2021 Palpitations 11/21/2020 Inappropriate sinus tachycardia 11/21/2020 Social History Tobacco Use Types Packs/Day Years [...] Sign Reading Time Taken Comments Blood Pressure 130/84 12/21/2022 11:44 AM EDT Pulse 72 12/21/2022 11:44 AM EDT Temperature - - Respiratory Rate - - Oxygen Saturation 98% 12/15/2022 10:21 AM EDT Inhaled Oxygen Concentration - - Weight 109 kg (240 lb) 12/21/2022 11:44 AM EDT Height 165.1 cm (5' 5 ) 12/21/2022 11:44 AM EDT Body Mass Index 39.94 12/21/2022 11:44 AM EDT Plan of Treatment Upcoming Encounters Date Type Department Care Team (Late st Contact Info) Description 01/15/2025 3:15 PM EDT Office Visit [facility] [address] [place] [phone] Vishal Zarate MD [address] [place] [address] Medical Devices Implanted Type Area Cloth Laminating Supervisor Device Identifier Shelf Expiration Date Model / Serial / Lot [id number] Biomonitor Iiim [id number] Implanted:11/06 (Quantity not on file) Implantable Loop Recorder [id number] BIOMONITOR IIIM / [id number] / Procedures Procedure Name Priority Date/Time Associated Diagnosis Comments CARDIAC DEVICE CHECK - REMOTE - LOOP RECORDER (ILR) Routine 10/30/2024 10:08 AM EDT Awareness of heartbeats from Last 3 Months Results * CARDIAC DEVICE CHECK - REMOTE - LOOP RECORDER (ILR) (10/30/2024 10:08 AM EDT) Anatomical Region Laterality Modality Other Narrative 10/30/2024 10:01 PM EDT By using the attestations below, the signing clinician agrees that I have read and verify that the documentation has been personally reviewed by me and ensure that the documentation accurately reflects the encounter. Routine EP device follow up as per schedule. Lead thresholds are stable. PRESENTING RHYTHM NSR BATTERY MOS: Below 70% Charge Remaining ARRHYTHMIAS 7 NEW TACHY EPISODES RECORDED WITH NOISE. MOST RECENT 10/10/24 4 SECONDS. 2 NEW AT/AF EPISODES RECORDED LONGEST 19 MIN. 50 SYMPTOM 0 PAUSE 0 DANGELO AF BURDEN <1% Vishal Zarate MD CV IMPLANTABLE CARDI AC DEVICE PROCEDURES from Last 3 Months Care Teams Icicle 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 Specialty Start Date End Date Álvaro Rodriguez MD [address] [place] [address] PCP - General Family Medicine 12/15/22
--- OUTSIDE RECORDS SUMMARY | 2025-01-03 07:41 | XMS_ITS | Patient Health Record ---
Author Organization [facility] Address [address] [place] [address] Care Team Providers Care Dough Sheeter Name Role Phone Álvaro Rodriguez MD Primary Care Provider Unavailabl e Allergies No Known Allergies Reason For Referral No Information Medications Medication SIG (Take, Route, Frequency, Duration) Notes Start Date End Date Status hydrOXYzine Pamoate 25 MG 1 capsule at bedtime as needed Orally Once a day Active Metoprolol Tartrate 50 MG 1 tablet with food Orally Twice a day Active Flovent HFA 110 MCG/ACT 2 puffs Inhalati on Twice a day for 30 days Rinse after use 02/02/2023 Active Cholecalciferol 25 MCG (1000 UT) 1 capsule Orally Once a day Active Immunizations Vaccine Route Administration Date Status Comme nts SARS-COV-2 (COVID 19 Moderna - Booster 0.25mL) Unknown 09/10/2020 Administered Social History Tobacco Use: Social History Observation Description Date Details (start date - stop date) Never Smoker NA - NA Tobacco Use/Smoking Question Answer Notes Patient is a nonsmoker Problems Problem Type SNOMED Code ICD Code Onset Dates Problem Status W/U Status Risk Notes Problem Palpitations (53164939) Palpitations (R00.2) Active confirmed Problem Shortness of breath (117043150) Shortness of breath (R06.02) Active confirmed Problem Morbid obesity (526936895) Morbid obesity (E66.01) Active confirmed Problem Obstructive sleep apnea (04592681) Obstructive sleep apnea (G47.33) Active confirmed Problem Atrial tachycardia (440235791) Atrial tachycardia (I47.1) Active confirmed Problem Abnormal immunology finding (092271334) Elevated antinuclear antibody (ESEQUIEL) level (R76.8) Active confirmed Problem Exposure to second hand tobacco smoke (event) (031725339978811 03) Secondhand smoke exposure (Z77.22) Active confirmed Plan Of Treatment No Information Insurance Providers Payer Name Payer Address Payer Phone Subscriber Number Group Number Insured Name Patient Relationship to Insured Coverage Start Date Coverage End Date ANTHJULIANN CHOU [address] [place] [address] [id number] Jeanette Vasquez Self - patient is the insured 3 Medical (General) History Medical History History ICD Code Obstructive sleep apnea G47.33 Atrial tachycardia I47.1 Elevated antinuclear antibody (ESEQUIEL) edgar ulloa R76.8 Palpitations R00.2 Morbid obesity E66.01 Secondhand smoke exposure Z77.22 Surgical History Surgery Date(Month/Year) left knee arthroscopy Implantable loop recorder 11/17/2021 cholecystectomy hysterectomy, abdominal 12/23/2017 left ankle surgery 06/01/2019
--- OUTSIDE RECORDS SUMMARY | 2025-01-03 07:41 | XMS_ITS | Patient Health Record ---
Author Organization [facility] Address [address] [place] [address] Care Team Providers Care Events Director Name Role Phone Álvaro Rodriguez Primary [facility] [phone] Allergies No Known Allergies Reason For Referral Reason REFERRAL TO [facility] Diagnosis 1 Low back pain, unspe cified (M54.50) Referral Organization [facility] Referring Provider First Name Adarsh Referring Provider Last Name [facility] Referring Provider Speciality Orthopedic Surgery Referred Organization Pain clinic General Notes Christi Lui 2023 09:53:22 AM >, Christi Lui 01/25/2024 08:53:20 AM >REFERRAL FAXED TO [facility] Referral Priority Routine Social History Tobacco Use: Social History Observation [...] Problem Status W/U Status Risk Notes Problem 370784606 Spondylosis with out myelopathy or radiculopathy, lumbar region (M47.816) Active confirmed Problem 02400337 Other intervertebral disc degeneration, lumbosacral region (M51.37) Active confirmed Encounters Encounter Location Date Provider Diagnosis [facility] [address] [place] [address] [address] [place] [address] 01/13/2024 Jeanna Shukla Spondylosis without myelopathy or [...] y 2. L5/S1 DDD Plan Of Treatment No Information Insurance Providers Payer Name Payer Address Payer Phone Subscriber Number Group Number Insured Name Patient Relationship to Insured Coverage Start Date Coverage End Date [address]per [address] [place] [phone] [id number] Self - patient is the insured Medical (General) History Medical History History ICD Code Abnormal Heart Rhythm Gastric Reflux Kidney stones Osteoarthritis Anemia Ovarian Cysts Anxiety 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
--- OUTSIDE RECORDS SUMMARY | 2025-01-03 07:41 | XMS_ITS | Clinical Summary ---
Author Organization [facility] Address [address] [place] [address] Care Team Providers Care Diplomatic Interpreter/Translator Name Role Phone Álvaro Rodriguez MD Primary Care Provider [phone] Allergies No known active allergies Medications Medication [...] 02/25/2021 Palpitations 11/21/2020 Inappropriate sinus tachycardia 11/21/2020 Encounters Date Type Department Care Team Description [facility] [address] [place] [address] Vishal Zarate MD SVT (supraventricular tachycardia) 12/07/2024 Refill [facility] [address] [place] [phone] Vishal Zarate MD SVT (supraventricular tachycardia) 11/03/2024 [facility] [address] [place] [phone] Vishal Zarate MD SVT (supraventricular tachycardia) 10/24/2024 5:30 PM EDT Ancillary Procedure [facility] [address] [place] [address] Awareness of heartbeats from Last 3 Months Social History Tobacco Use Types Packs/Day Years [...] Description 01/15/2025 3:15 PM EDT Office Visit [facility] [address] [place] [address] Vishal Zarate MD [address] [place] [address] Health Maintenance Due Date Last Done Comments Depression Screening 1994 Varicella Vaccines (1 of 2 - 13+ 2-dose series) 11/30/1995 Pap Smear 11/30/2003 Adult Tetanus 2004 Cervical Cancer Screening 2012 HPV/Cotest 2012 Mammogram 2022 COVID-19 Vaccine ( season) 2024 09/10/2020, 09/10/2020, 08/12/2020, Additional history exists Zoster Vaccines (1 of 2) 2032 HIB Vaccines Aged Out 07/27/1990 No longer eligi ble based on patient's age to complete this topic IPV Vaccines Completed 12/28/1993, 02/06, 06/29/1989, Additional history exists Hepatitis B Vaccines Completed 05/27/1999, 12/25/1998, 11/25/1998 Influenza Vaccine Completed 05/30/2024 HPV Vaccines Aged Out No longer eligi ble based on patient's age to complete this topic Meningococcal B Vaccine Aged Out No l onger eligible based on patient's age to complete this topic Meningococcal Vaccine Aged Out No chester luke eligible based on patient's age to complete this topic Pneumococcal Vaccine: Pediatrics (0 to 5 Years) and At-Risk Patients (6 to 64 Years) Aged Out No longer eligible based on patient's age to complete this topic Rotavirus Vaccines Aged Out No longer eligible based on patient's age to complete this topic Medical Devices Implanted Type Area Instructor Creeler Device Identifier Shelf Expiration Date Model / Serial / Lot [id number] Biomonitor Iiim [id number] Implanted:11/06 (Quantity not on file) Implantable Loop Recorder [id number] BIOMONITOR III / [id number] / Procedures Procedure Name Priority Date/Time Associated [...] PROCEDURES from Last 3 Months Care Teams Diplomatic Interpreter/Translator Relationship Specialty Start Date End Date Álvaro Rodriguez MD [address] [place] [address] PCP - General Family Medicine 12/15/22
--- OUTSIDE RECORDS SUMMARY | 2025-01-03 07:41 | XMS_ITS | Clinical Summary ---
Author Organization [facility] Address [address] [place], [place] [address] Care Team Providers Care Senior Vice President & General Counsel Name Role Phone Fina Lama MD Unavailable [phone] Allergies No known active allergies Medications aspirin 325 mg tablet Take 325 mg by mouth once daily. Active cholecalciferol (VITAMIN D) 1,000 unit tab tablet Take 1,000 Units by mouth once daily. Active dilTIAZem CD (CARDIZEM CD) 180 mg 24 hr capsule Take 1 capsule by mouth once daily. 90 capsule 3 08/24/2022 Active Active Problems Problem Noted Date Diagnosed Date Dizziness 08/24/2022 Palpitations 08/24/2022 Obesity, morbid, BMI 40.0-49.9 08/24/2022 KANG (obstructive sleep apnea) 08/24/2022 Chronic fatigue 08/24/2022 SVT (supraventricular tachycardia) 08/24/2022 Vitamin D deficiency 08/24/2022 Social History Tobacco Use Types Packs/Day Years Used Date Smoking Tobacco: Never Smokeless Tobacco: Never Tobacco Cessation:Counseling Given: Not Answered Alcohol Use Standard Drinks/Week Comments Yes 0 (1 standard drink = 0.6 oz pure alcohol) occasionally 1-2 times a months 2-3 drinks Area Deprivation Index Answer Date Paulino rded National Score (1-100), lower number is lower ri sk 65 08/22/2022 State Score (1-10), lower number is lower risk N ot on file 08/22/2022 Data from: https://www.neighborhoodatlas.medicine.[facility].edu/. Last address used for calculation [address] 08/22/2022 Comments No Sex and Gender Information Value Date Recorded Sex Assigned at Not on file Legal Sex Female 2:27 PM EDT Gender Identity Not on file Sexual Orientation Not on file Last Filed Vital Signs Vital Sign Reading Time Taken Comments Blood Pressure 112/73 08/24/2022 1:44 PM EST Pulse 88 08/24/2022 1:44 PM EST Temperature - - Respiratory Rate - - Oxygen Saturation 98% 08/24/2022 1:44 PM EST RA Inhaled Oxygen Concentration - - Weight 112.9 kg (249 lb) 08/24/2022 1:44 PM EST Height 162.6 cm (5' 4 ) 08/24/2022 1:44 PM EST Body Mass Index 42.74 08/24/2022 1:44 PM EST Plan of Treatment Health Maintenance Due Date Last Done Comments Anxiety Screening 2000 Depression Screening 2000 HIV Screening 2000 Hepatitis C Screening 2000 DTaP,Tdap,Td Vaccine (1 - Tdap) 2001 Hepatitis B Vaccine (1 of 3 - 19+ 3-dose series) 2001 Cervical Cancer Screening 11/30/2003 Mammogram Screening 2022 Covid-19 Vaccine ( season) 04/08/202410/2020, 08/12/2020 Influenza Vaccine (Season Ended) 2025 05/08/20 22 Insurance PAULINE ACCESS PPO Member Subscriber Plan / Payer (Ef fective 2022-Present) Name:Jeanette Vasquez Member ID:[id number] Relation to Subscriber:Self Name:Jeanette Vasquez Subscriber ID:[id number] Payer ID:[id number] (NAIC) Group ID:Not on file Type:PPO Address: [facility] [id number] [place] [id number] Care Teams Senior Vice President & General Counsel Relationship Specialty Start Date End Date Fina Lama MD [address] [place] [address] Referring Family Medicine 06/10/22
--- NOTE | 2025-01-03 07:55 | P.CN_ITS ---
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 Pt has failed to benefit from > 6 weeks of PT and provider guided HEP, heat, ice, tylenol, and NSAIDs. currently utilizing tizanidine 4mg TID PRN pain/spasms. pain today 5/10 increasing to 9/10 with twisting, lying, bending. mild improvement with heat. recently underwent bilateral C4-5 C5-6 MBB #1 with >80% improvement while anestehtized, preop pain up to 9/10 post op pain 0/10. cc:: CC: Deepika Alicia NP Review of Systems ROS Status of ROS 10 or more systems reviewed and unremark able except as noted in history and below Musculoskeletal Reports: neck pain PFSH PFSH Medical History (Updated 12/12/24 @ 14:15 by Deepika Alicia NP) Arthritis ?M19.90 - Unspecified osteoarthritis, unspecified site (ICD-10) Anemia ?D64.9 - Anemia, unspecified (ICD-10) Acid reflux ?K21.9 - Gastro-esophageal reflux disease without esophagitis (ICD-10) Kidney stone ?N20.0 - Calculus of kidney (ICD-10) Irregular heart beat ?I49.9 - Cardiac arrhythmia, unspecified (ICD-10) Surgical History History of cardiac radiofrequency ablation ?Z98.890 - Other specified postprocedural states (ICD-10) History of ankle surgery ?Z98.890 - Other specified postprocedural states (ICD-10) History of hysterectomy ?Z90.710 - Acquired absence of both cervix and uterus (ICD-10) Hx of cholecystectomy ?Z90.49 - Acquired absence of other specified parts of digestive tract (ICD- 10) Meds Home Medications and Allergies Home Medications ?Medication ?Instructions ?Recorded ?Confirmed ?Type metoprolol tartrate 50 mg tablet 50 mg PO BID 12/30/23 12/24/24 History tizanidine 4 mg capsule (Zanaflex) 4 mg PO Q8H PRN mus abhishek spasticity 12/30/23 12/24/24 Rx #20 caps Allergies Allergy/AdvReac Type Severity Reaction Status Date / Time No Known Drug Allergies Allergy Verified 12/24/24 10:19 Exam Constitutional Documenting provider has reviewed patient's vital signs: yes Common normals: no apparent distress, oriented x3, healthy appearing, alert and well nourished General appearance: cooperative HENMT Common normals: normocephalic, hearing grossly normal bilaterally and moist oral mucous membranes Head and scalp: normocephalic Eye Common normals: PERRL Pupil: PERRL Neck & C-Spine Common normals: full ROM General: normal visual inspection Cervical spine: cervical ROM abnormal, pain with cervical ROM and cervical spine tenderness C4, C5, C6, C7 and T1 Other: negative spurlings strength 5/5 in BUE sensation intact BUE positive facet mediated loading left greater than right Chest Common normals: inspection of chest normal Respiratory Common normals: normal respiratory effort, no retractions and no use of accessory muscles Neuro Common normals: oriented x3 Sensorium/orientation: alert Psych Common normals: mental status grossly normal, thought process normal, cooperative, affect normal, speech normal and activity/motor behavior normal Speech: normal speech Thought process: normal thought process Results Additional Findings Additional findings: If on a controlled substance or opioids, I have checked an [place]AR[place] report on this patient and there are no aberrancies noted in the prescribing history.??If on a controlled substance or opioid a drug screen was completed and reviewed within the last year, and if there has not been a drug screen completed we ordered one today to monitor higher risk, state monitored pain medication use. As part of providing excellent, safe, comprehensive care, the following was completed at our patient's visit: 1. A medication reconciliation and review to ensure accurate knowledge of current/active medications, including asking our patients to inform us about any [id number] medications or herbal remedies/nutritional supplements/alternative remedies. 2. A review to specifically ensure our patients have had annual screening for screening for depression, screening for tobacco use, and screening for unhealthy alcohol use. For concerning screenings had a discussion with the patient, p rovided patient education, and recommended follow-up with primary care provider when appropriate. If patient noted with a risk of falling, they received education on strength, gait, and balance training to prevent future risk of falling. Portions of this note may have been carried over from the previous visit and updated as appropriate. Please note this office utilizes paper charting in addition to the electronic medical record. A list of current medications, vitals, and PMH is available there as the clinical staff outside of myself do not have access to [employer] charting during the clinic day operations. As part of providing quality comprehensive care the current medications, vitals, and PMH were reviewed in the paper chart. Assessment and Plan Assessment and Plan (1) Cervical spondylosis: Assessment and Plan: The patient has had over 3 months of moderate to severe neck pain with functional impairment and inadequate response to conservative care including NSAIDS (unless there are contraindication such as concurrent blood thinners), multiple oral or topical pain medications, and home exercise program/physical therapy.? Patient has completed >6 weeks of guided home exercise program and/or formal physical therapy program without relief of their symptoms.? I have reviewed the imaging of the cervical spine and no red flags were identified.? The imaging reveals radiographic findings consistent with cervical ddd and spondylosis The Oswestry Disability Index was completed, and the patient scored a 34%.? The patient noted the following:?? moderate to severe pain with activity, lifting, sitting, sleep, social life, and travel We discussed the risks and benefits of the procedure with the patient, and we are NOT planning on using sedation as outlined in the guidelines from Medicare unless there is a documented reason that sedation would be strongly recommended.?? ?The procedure will be completed with fluoroscopic guidance.? (2) Lumbar spondylosis: (3) Myofascial pain: Plan bilateral C4-5 C5-6 facet medial branch block x2 working towards RFA for facet mediated pain continue current medications f/u after each injection
== END 2025-01-03 07:39 | disposition home or self-care (01) ==
PROVIDERS: PCP Family Medicine; Visit Provider Nurse Practitioner
DX: M47.812 Spondylosis without myelopathy or radiculopathy, cervical region (principal); M47.816 Spondylosis without myelopathy or radiculopathy, lumbar region; M79.18 Myalgia, other site
CPT/HCPCS: G0463

== ENCOUNTER 2025-01-14 08:55 | Day surgery (SDC) | payer BC, SELFPAY ==
--- OUTSIDE RECORDS SUMMARY | 2025-01-14 08:57 | XMS_ITS | Clinical Summary ---
Author Organization [employer] [facility] Address [id number] [address] [place] [address] Care Team Providers Care Filling Hauler Name Role Phone Fina Lama MD Primary Care Provider [phone] Allergies No known active allergies Medications metoprolol [...] Medical Devices Not on file Care Teams Filling Hauler Relationship Specialty Start Date End Date Fina Lama MD PCP - General Family Medicine 02/25/21
--- OUTSIDE RECORDS SUMMARY | 2025-01-14 08:57 | XMS_ITS | Encounter Summary ---
Author Organization [facility] Address [address] [place] [address] Care Team Providers Care Tin Recovery Worker Name Role Phone Álvaro Rodriguez MD Primary Care Provider [phone] Reason for Visit * Reason Comments Med Refill Encounter Details Date Type Department Care Team (Late st Contact Info) Description 09/27/2023 Refill [facility] [address] [place] [address] Vishal Zarate MD [address] [place] [address] SVT (supraventricular tachycardia) Social History [...] Description 01/15/2025 3:15 PM EDT [facility] [address] [place] [address] Vishal Zarate MD [address] [place] [address] documented as of this encounter Visit Diagnoses Diagnosis SVT (supraventricular tachycardia) Other specified cardiac dysrhythmias documented in this encounter Care Teams Tin Recovery Worker Relationship Specialty Start Date End Date Álvaro Rodriguez MD [address] [place], [place] [id number] PCP - General Family Medicine 12/15/22 documented as of this encounter
--- OUTSIDE RECORDS SUMMARY | 2025-01-14 08:57 | XMS_ITS | Referral Summary ---
Author Organization [facility] [place] [address] Care Team Providers Care Well Flow Operator Name Role Phone Álvaro Rodriguez MD Primary Care Provider [phone] Encounters Date Type Department Care Team Description 12/25/2024 8:40 PM EDT Ancillary Procedure [facility] [address] [place] [address] Awareness of heartbeats 12/24/2024 Orders Only [facility] [address] [place] [address] Chace Celeste MD 12/11/2024 Refill [facility] [address] [place] [address] Vishal Zarate MD SVT (supraventricular tachycardia) 12/07/2024 Refill [facility] [address] [place] [address] Vishal Zarate MD SVT (supraventricular tachycardia) 11/23/2024 Orders Only [facility] [address] [place] [address] Chace Celeste MD 11/23/2024 5:40 PM EDT Ancillary Procedure [facility] [address] [place] [address] Awareness of heartbeats 11/03/2024 Refill [facility] [address] [place] [address] Vishal Zarate MD SVT (supraventricular tachycardia) 10/24/2024 5:30 PM EDT Ancillary Procedure [facility] [address] [place] [address] Awareness of heartbeats from Last 3 Months [...] Description 01/15/2025 3:15 PM EDT Office Visit [facility] [address] [place] [address] Vishal Zarate MD [address] [place] [address] Medical Devices Implanted Type Area Cosmetics Supervisor Device Identifier Shelf Expiration Date Model / Serial / Lot [id number] Biomonitor Iiim [id number] Implanted:11/06 (Quantity not on file) Implantable Loop Recorder [id number] BIOMONITOR IIIM / [id number] / Procedures Procedure Name Priority Date/Time Associated Diagnosis Comments CARDIAC DEVICE CHECK CHECK - REMOTE Routine 01/03/2025 1:15 PM EDT Awareness of heartbeats CARDIAC DEVICE CHECK CHECK - REMOTE Routine 01/03/2025 12:41 PM EDT Awareness of heartbeats CARDIAC DEVICE CHECK - REMOTE - LOOP RECORDER (ILR) Routine 12/24/2024 12:00 AM EDT CARDIAC DEVICE CHECK - REMOTE - LOOP RECORDER (ILR) Routine 11/23/2024 12:00 AM EDT CARDIAC DEVICE CHECK - REMOTE - LOOP RECORDER (ILR) Routine 10/30/2024 10:08 AM EDT Awareness of heartbeats from Last 3 Months Results * CARDIAC DEVICE CHECK - REMOTE - LOOP RECORDER (ILR) (01/03/2025 1:15 PM EDT) Only the most recent of3 resultswithin the time period is included. Vishal Zarate MD CV IMPLANTABLE CARDI AC DEVICE PROCEDURES CPACS * Cardiac device check - Remote loop recorder (ILR) (12/24/2024 12:00 AM EDT) Only the most recent of2 resultswithin the time period is included. Anatomical Region Laterality Modality Other 12/24/2024 Chace Celeste MD CV IMPLANTABLE CARDI AC DEVICE PROCEDURES from Last 3 Months Care Teams Well Flow Operator Relationship Specialty Start Date End Date Álvaro Rodriguez MD [address] [place] [address] PCP - General Family Medicine 12/15/22
--- OUTSIDE RECORDS SUMMARY | 2025-01-14 08:57 | XMS_ITS | Encounter Summary ---
Author Organization [facility] Address [address] [place] [address] Care Team Providers Care Shop Hand Name Role Phone Fina Lama MD Unavailable [phone] Source Comments In the event this information is protected by the Federal Confidentiality of Alcohol and Drug AbusePatient Records regulations: The Federal rules restrict any use of the information to criminally investigate or prosecute any alcohol or drug abuse patient.[facility] Encounter Details Date Type Department Care Team (Late st Contact Info) Description 07/14/2022 Get Medical Advice Neurology [address] [place] [phone] Provider, Ccf Positive ESEQUIEL Social History Tobacco [...] on filedocumented in this encounter Care Teams Shop Hand Relationship Specialty Start Date End Date Fina Lama MD [address] [facility] [place] [address] Referring Family Medicine 06/10/22 documented as of this encounter
--- OUTSIDE RECORDS SUMMARY | 2025-01-14 08:57 | XMS_ITS | Encounter Summary ---
Author Organization [facility] Address [address] [place] [address] Care Team Providers Care Armhole Raiser Lockstitch Name Role Phone Fina Lama MD Unavailable [phone] Source Comments In the event this information is protected by the Federal Confidentiality of Alcohol and Drug AbusePatient Records regulations: The Federal rules restrict any use of the information to criminally investigate or prosecute any alcohol or drug abuse patient.[facility] Encounter Details Date Type Department Care Team (Late st Contact Info) Description 09/07/2022 [place] [address] Provider, Ccf Questionnaire Submission Social History Tobacco [...] ot on file 08/22/2022 Data from: https://www.neighborhoodatlas.medicine.[facility].edu/. Last address used for calculation [address] [...] on filedocumented in this encounter Care Teams Armhole Raiser Lockstitch Relationship Specialty Start Date End Date Fina Lama MD [address] [place] [address] Referring Family Medicine 06/10/22 documented as of this encounter
--- OUTSIDE RECORDS SUMMARY | 2025-01-14 08:57 | XMS_ITS | Encounter Summary ---
Author Organization [facility] Address [address] [place] [address] Care Team Providers Care Welding Pantograph 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 Name Role Phone Fina Lama MD Unavailable [phone] Source Comments In the event this information is protected by the Federal Confidentiality of Alcohol and Drug AbusePatient Records regulations: The Federal rules restrict any use of the information to criminally investigate or prosecute any alcohol or drug abuse patient.[facility] Encounter Details Date Type Department Care Team (Late st Contact Info) Description 07/09/2022 Get Medical Advice Neurology [address] [place] [address] Provider, Ccf Question regarding ESEQUIEL BY IFA WITH REFLEX Social History Tobacco Use Types Packs/Day Years [...] on filedocumented in this encounter Care Teams Welding Pantograph 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 Specialty Start Date End Date Fina Lama MD [address] [place] [address] Referring Family Medicine 06/10/22 documented as of this encounter
--- OUTSIDE RECORDS SUMMARY | 2025-01-14 08:57 | XMS_ITS | Clinical Summary ---
Author Organization [facility] Address [address] [place] [address] Care Team Providers Care Public Health Officer Name Role Phone Álvaro Rodriguez MD Primary Care Provider [phone] Allergies No known active allergies Medications metoprolol [...] 2022 Influenza Vaccine (Season Ended) 2025 Insurance [facility] Care Teams Public Health Officer Relationship Specialty Start Date End Date Álvaro Rodriguez MD PCP - General Family Medicine 08/25/23
--- OUTSIDE RECORDS SUMMARY | 2025-01-14 08:57 | XMS_ITS | Encounter Summary ---
Author Organization [facility] Address [address] [place] [address] Care Team Providers Care Dixonac Operator Name Role Phone Fina Lama MD Unavailable [phone] Source Comments In the event this information is protected by the Federal Confidentiality of Alcohol and Drug AbusePatient Records regulations: The Federal rules restrict any use of the information to criminally investigate or prosecute any alcohol or drug abuse patient.[facility] Encounter Details Date Type Department Care Team (Addi st Contact Info) Description 07/27/2022 [place] [address] Provider, Ccf MRI Screening Questionnaire Completion Required [...] on filedocumented in this encounter Care Teams Dixonac Operator Relationship Specialty Start Date End Date Fina Lama MD [address] [facility] [place] [address] Referring Family Medicine 06/10/22 documented as of this encounter
--- OUTSIDE RECORDS SUMMARY | 2025-01-14 08:57 | XMS_ITS | Encounter Summary ---
Author Organization [facility] Address [address] [place] [address] Care Team Providers Care Stakes Player Name Role Phone Álvaro Rodriguez MD Primary Care Provider [phone] Reason for Visit * Reason Comments Med Refill Encounter Details Date Type Department Care Team (Late st Contact Info) Description 03/25/[address] [facility] [address] [place] [address] Courtney Medina, SARIKA [address] [place] [address] Supraventricular tachycardia Social History Tobacco [...] 3:15 PM EDT Office Visit [facility] [address] [place] [address] Vishal Zarate MD [address] [place] [address] documented as of this encounter Visit Diagnoses Diagnosis Supraventricular tachycardia Other specified cardiac dysrhythmias documented in this encounter Care Teams Stakes Player Relationship Specialty Start Date End Date Álvaro Rodriguez MD [address] [place] [address] PCP - General Family Medicine 12/15/22 documented as of this encounter
--- OUTSIDE RECORDS SUMMARY | 2025-01-14 08:57 | XMS_ITS | Encounter Summary ---
Author Organization [facility] Address [address] [place] [address] Care Team Providers Care Physical Therapy Resident Name Role Phone Fina Lama MD Unavailable [phone] Source Comments In the event this information is protected by the Federal Confidentiality of Alcohol and Drug AbusePatient Records regulations: The Federal rules restrict any use of the information to criminally investigate or prosecute any alcohol or drug abuse patient.[facility] Encounter Details Date Type Department Care Team (Late st Contact Info) Description 10/12/2022 [place] [address] Provider, Ccf Questionnaire Submission Social History Tobacco [...] on file 08/22/2022 Data from: https://www.neighborhoodatlas.medicine.[facility].edu/. Last address used for calculation [address] [...] on filedocumented in this encounter Care Teams Physical Therapy Resident Relationship Specialty Start Date End Date Fina Lama MD [address] [place] [address] Referring Family Medicine 06/10/22 documented as of this encounter
--- OUTSIDE RECORDS SUMMARY | 2025-01-14 08:57 | XMS_ITS | Encounter Summary ---
Author Organization [facility] Address [address] [place] [address] Care Team Providers Care Sack Cleaning Hand Name Role Phone Fina Lama MD Unavailable [phone] Source Comments In the event this information is protected by the Federal Confidentiality of Alcohol and Drug AbusePatient Records regulations: The Federal rules restrict any use of the information to criminally investigate or prosecute any alcohol or drug abuse patient.[facility] Encounter Details Date Type Department Care Team (Late st Contact Info) Description 10/15/2022 Get Medical Advice Neurology [address] [place] [address] Provider, Ccf Question regarding MRI [...] N ot on file 08/22/2022 Data from: https://www.neighborhoodatlas.medicine.[facility].edu/. Last address used for calculation [address] [...] on filedocumented in this encounter Care Teams Sack Cleaning Hand Relationship Specialty Start Date End Date Fina Lama MD [address] [place] [address] Referring Family Medicine 06/10/22 documented as of this encounter
--- OUTSIDE RECORDS SUMMARY | 2025-01-14 08:57 | XMS_ITS | Clinical Summary ---
Author Organization [facility] Address [address] [place] [address] Care Team Providers Care Comb Tender Name Role Phone Álvaro Rodriguez MD Primary Care Provider [phone] Allergies No known active allergies Medications Medication [...] Description 12/25/2024 8:40 PM EDT Ancillary Procedure [facility] [address] [place] [address] Awareness of heartbeats 12/24/2024 Orders Only [facility] [address] [place] [address] Chace Celeste MD 12/11/2024 [facility] [address] [place] [address] Vishal Zarate MD SVT (supraventricular tachycardia) 12/07/2024 [facility] [address] [place] [address] Vishal Zarate MD SVT (supraventricular tachycardia) 11/23/2024 5:40 PM EDT Ancillary Procedure [facility] [address] [place] [address] Awareness of heartbeats 11/23/2024 Orders Only [facility] [address] [place] [address] Chace Celeste MD 11/03/2024 [facility] [address] [place] [address] Vishal Zarate MD SVT (supraventricular tachycardia) 10/24/2024 5:30 PM EDT Ancillary Procedure [facility] [address] [place] [address] Awareness of heartbeats from Last 3 Months [...] Description 01/15/2025 3:15 PM EDT Office Visit [facility] [address] [place] [address] Vishal Zarate MD [address] [place] [address] Health Maintenance Due Date Last [...] this topic Medical Devices Implanted Type Area Operations Manager Device Identifier Shelf Expiration Date Model / Serial / Lot [id number] Biomonitor Iiim [id number] Implanted:11/06 (Quantity not on file) Implantable Loop Recorder [id number] BIOMONITOR IIIM / [id number] / Procedures Procedure Name Priority Date/Time Associated [...] PROCEDURES from Last 3 Months Care Teams Comb Tender Relationship Specialty Start Date End Date Álvaro Rodriguez MD [address] [place] [address] PCP - General Family Medicine 12/15/22
--- OUTSIDE RECORDS SUMMARY | 2025-01-14 08:57 | XMS_ITS | Clinical Summary ---
Author Organization [facility] Address [address] [place], [place] [address] Care Team Providers Care Thaw Shed Heater Tender Name Role Phone Fina Lama MD Unavailable [phone] Allergies No known active allergies Medications aspirin [...] N ot on file 08/22/2022 Data from: https://www.neighborhoodatlas.medicine.[facility].edu/. Last address used for calculation [address] [...] Vaccine (Season Ended) 2025 05/08/20 22 Insurance [employer] PPO Member Subscriber Plan / Payer (Ef fective 2022-Present) Name:Jeanette Vasquez Member ID:[id number] Relation to Subscriber:Self Name:Jeanette Vasquez Subscriber ID:[id number] Payer ID:[id number] (NAIC) Group ID:Not on file Type:PPO Address: [facility] [address] [place] [id number] Care Teams Thaw Shed Heater Tender Relationship Specialty Start Date End Date Fina Lama MD [address] [place] [address] Referring Family Medicine 06/10/22
--- OUTSIDE RECORDS SUMMARY | 2025-01-14 08:57 | XMS_ITS | Encounter Summary ---
Author Organization [facility] Address [address] [place] [address] Care Team Providers Care Insurance Advisor Name Role Phone Fina Lama MD Unavailable [phone] Source Comments In the event this information is protected by the Federal Confidentiality of Alcohol and Drug AbusePatient Records regulations: The Federal rules restrict any use of the information to criminally investigate or prosecute any alcohol or drug abuse patient.[facility] Encounter Details Date Type Department Care Team (Late st Contact Info) Description 08/30/2022 Get Medical Advice Cardiology [address] [place] [address] Malka Sy MD [address] [facility] [address] Question regarding EKG RHYTHM STRIP [...] on file 08/22/2022 Data from: https://www.neighborhoodatlas.medicine.[facility].edu/. Last address used for calculation [address] [...] on filedocumented in this encounter Care Teams Insurance Advisor Relationship Specialty Start Date End Date Fina Lama MD [address] [place] [address] Referring Family Medicine 06/10/22 documented as of this encounter
--- OUTSIDE RECORDS SUMMARY | 2025-01-14 08:57 | XMS_ITS | Encounter Summary ---
Author Organization [facility] Address [address] [place] [address] Care Team Providers Care Sourcing Associate Name Role Phone Fina Lama MD Unavailable [phone] Source Comments In the event this information is protected by the Federal Confidentiality of Alcohol and Drug AbusePatient Records regulations: The Federal rules restrict any use of the information to criminally investigate or prosecute any alcohol or drug abuse patient.[facility] Encounter Details Date Type Department Care Team (Late st Contact Info) Description 10/11/2022 Patient Msg MRI Q [address] [address] Provider, Cc MRI Social History Tobacco Use [...] N ot on file 08/22/2022 Data from: https://www.neighborhoodatlas.medicine.[facility].edu/. Last address used for calculation [...] on filedocumented in this encounter Care Teams Sourcing Associate Relationship Specialty Start Date End Date Fina Lama MD [address] [place] [address] Referring Family Medicine 06/10/22 documented as of this encounter
[2025-01-14 09:18] VITALS: BP 115/76; PULSE 84; TEMP 36.8; O2SAT 96
[2025-01-14 09:50] VITALS: BP 144/82; PULSE 85; PULSE 91; O2SAT 96; O2SAT 98
[2025-01-14 09:51] VITALS: BP 146/80
[2025-01-14] MEDS: BUPIVACAINE HCL 0.25% PF 25 MG/10 ML VIAL 6 ML INJ (09:51)
[2025-01-14] MEDS: LIDOCAINE HCL 2% 400 MG/20 ML MDV INJ (09:51)
--- NOTE | 2025-01-14 09:57 | W.PM.PROCNOT ---
Date of procedure: 01/14/25 Pre-op diagnosis: Pain due to cervical spondylosis without myelopathy Post-op diagnosis: same as pre-op Procedure: Procedure: Bilateral C4-5, 5-6 medial branch block Medications: Bupivacaine 0.25% 6cc The patient was seen and examined in the preoperative holding area.? The informed consent was obtained and placed on the chart.? The patient was brought to the medical procedure unit and placed in the prone position.? A timeout was completed verifying correct patient, procedure site, positioning, plan, and special equipment.? Using aseptic technique, the needle was placed at left C4.? Under direct fluoroscopic visualization, a Quincke tip needle was advanced to the midpoint of the waist of the articular pillar at the respective medial branch segment. The above-mentioned injectate was placed in a 1 mL aliquot proceeded by negative aspiration.? The needle was removed.? The procedure was completed at all left C5, 6. The same procedure, at the same levels, was then completed on the right side. Insertion site was covered.? Patient was taken to the postprocedural recovery area and monitored for an appropriate length of time before found suitable for discharge in the accompaniment of a responsible adult. Anesthesia: Local Surgeon: Ari Sellers Pathology: none sent Condition: stable Disposition: no change
== END 2025-01-14 09:58 | disposition home or self-care (01) ==
LOC: SURGOUT 08:55
PROVIDERS: PCP Family Medicine; Visit Provider Anesthesiology
DX: M54.2 Cervicalgia (principal); M47.812 Spondylosis without myelopathy or radiculopathy, cervical region
CPT/HCPCS: 64490; 64491; J0665

== ENCOUNTER 2025-01-17 08:02 | Outpatient (OUT) | payer BC, SELFPAY ==
--- OUTSIDE RECORDS SUMMARY | 2024-01-13 05:00 | XMS_ITS ---
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 Name Role Phone MichaelÁlvaro Primary Care Provider Jeanna Ramesh Unavailable [phone] Allergies No Known Allergies Reason For Referral Reason REFERRAL TO [facility] Diagnosis 1 Low back pain, unspe cified (M54.50) Referral Organization [facility] Referring Provider First Name Adarsh Referring Provider Last Name St Ferraro Referring Provider Speciality Orthopedic Surgery Referred Organization Pain clinic General Notes Christi Lui 2023 09:53:22 AM >, Christi Lui 01/25/2024 08:53:20 AM >REFERRAL FAXED TO [facility] Referral Priority Routine REASON FOR [...] Problem Status W/U Status Risk Notes Problem [id number] Spondylosis with out myelopathy or radiculopathy, lumbar region (M47.816) Active confirmed Problem [id number] Other intervertebral disc degeneration, lumbosacral region (M51.37) Active confirmed Encounters Encounter Location Date Provider Diagnosis [facility] Office [address] [place] [address] [address] [place] [address] 01/13/2024 Jeanna Shukla Spondylosis without myelopathy or [...] Referral Date Details 01/13/2024 01/13/2024, REFERRAL TO [facility] Next Appt Details Follow Up: prn, Reason: Progress Notes * KAILA OTOOLE NDOB: [birth year] (44 yo F)Acc No.[id number]:01/13/2024 Patient: KAILA MOSS Provider: ELENA Edmonds :1980 A ge:43 Y S ex:Female Date:01/13/2024 Address:[address] [id number] Pcp:Álvaro Rodriguez Subjective: * Chief Complaints: * 1 . Low Back Pain. * HPI: G eneral Follow Up Information: Dictated by Jeanna Shukla PA-C Thank you for referring your patient to see Dr. Quiroga in surgical spine consultation at the [facility] [place]. 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 She [...] otor vehicle accident: N o. T hird republican responsibility: N o. 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 M arital status M arital Status M [...] the lumbar spine were reviewed from the [facility] from 12/19/2023 that revealed L5-S1 mild degenerative disc disease and moderate degenerative facet arthropathy, right greater than left. . M RI Imaging Studies: M RI lumbar spine without contrast was reviewed from the [facility] from 12/29/2023; Impression:Mild degenerative disc desiccation T7-T8. [...] Electronic signature of Abundio Shukla PA-C on 01/17/2025 at 08:04 AM EDT Sign off status: Pending * Provider: ELENA Edmonds Date: 0 01/13/2024 Generated for Babs bishop/Taylor/Nirav on: 0 01/17/2025 08:04 AM EDT History and Physical Notes * HPI (History of Present Illness) Category Sub-Category Detail Notes Category Not es General Follow Up Information Dictated by Jeanna Shukla PA-C Thank you for referring your patient to see Dr. Quiroga in surgical spine consultation at the [facility]. 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 She [...] Start of Pain/Cause of Injury 12/18/2023 Third republican responsibility: No What activities make your symptoms worse ? Leaning forward, bending forward, rising from sitting, changing positions, coughing/sneezing Which of the following treat ments have you tried? Anti-Inflammatory medications, Muscle re laxants, Narcotic pain medications, Hot packs, Physical Therapy, Back/Neck exercises. Traction Have you been seen by a [place] ist in the last year? No Do [...] the lumbar spine were reviewed from the [facility] from 12/19/2023 that revealed L5-S1 mild degenerative disc disease and moderate degenerative facet arthropathy, right greater than left. MRI Imaging Studies MRI lumbar spine without contrast was reviewed from the [facility] from 12/29/2023; Impression:Mild degenerative disc desiccation T7-T8. No significant disc herniation. No central or foraminal stenosis. Consultation Request Notes Referral Date Referring Provider Referred Provider Not es 01/13/2024 Adarsh Hernandez , REFERRAL TO [facility]
--- OUTSIDE RECORDS SUMMARY | 2025-01-15 15:15 | XMS_ITS | Encounter Summary ---
Author Organization [facility] Address [address] [place] [address] Care Team Providers Care Construction Inspector Name Role Phone Álvaro Rodriguez MD Primary Care Provider [phone] Encounter Details Date Type Department Care Team (Late st Contact Info) Description 01/15/2025 3:15 PM EDT Office Visit [facility] [address] [place] [address] Vishal Zarate MD [address] [place] [phone] SVT (supraventricular tachycardia) Social History Tobacco Use Types Packs/Day Years Used Date Smoking Tobacco: Never Smokeless Tobacco: Never Tobacco Cessation:Counseling Given: Not Answered [place] Safety & Environment Answer Date Rec orded Fear of Current or Ex-Partner Not on file Emotionally Abused Not on file 09/29/2023 Physically Abused Not on file 09/29/2023 Sexually Abused Not on file 09/29/2023 Physically or Sexually Abused Not on file Comments Unknown Sex and Gender Information Value Date Recorded Sex Assigned at Not on file Legal Sex Female 12:30 AM EDT Gender Identity Not on file Sexual Orientation Not on file documented as of this encounter Last Filed Vital Signs Vital Sign Reading Time Taken Comments Blood Pressure 137/95 01/15/2025 3:47 PM EDT Pulse 74 01/15/2025 3:47 PM EDT Temperature - - Respiratory Rate - - Oxygen Saturation 98% 01/15/2025 3:47 PM EDT Inhaled Oxygen Concentration - - Weight 114 kg (252 lb) 01/15/2025 3:47 PM EDT Height 165.1 cm (5' 5 ) 01/15/2025 3:47 PM EDT Body Mass Index 41.93 01/15/2025 3:47 PM EDT documented in this encounter Progress Notes * Vishal Zarate MD - 01/15/2025 3:15 PM EDT Images from the original note were not included. [place] Cardiology Consult Note Reason for Consultation: Palpitations 01/15/25 Patient here for 2 year follow up palpitations and SVT. Has loop recorder in place. Says she's beenhaving lots of PAC's . [place] lots of them on 01/11/2025 around 11:52am. Says these episodes scares her and they've been happening more frequently. Denies chest pain. There are no events noted on the [employer] website corresponding to that thedate. Loop monitor has been mis-binning a lot of the PACs as A-fib. There are episodes in which were a high ventricular rate but these all appear to be a long RP tachycardia with a slow rise noted on the histograms suggestive of sinus tachycardia. There was 1 episode in September 29, 2024 where in the heart rate was noted to be elevated in the 160s at 220 in the morning. Patient denied any physical exertional activity to correspond to this. She states that there are times over the weekend that she forgets to take her beta-norbert and has noted that she feels that her heart rate more during those days Review of Systems Cardiovascular: Positive for irregular heartbeat and palpitations. Neurological: Positive for dizziness ( like a vertigo feeling ) and sensory change (with episodes of palpitations). All other systems reviewed and are negative. 12/21/2022 Patient feeling like she was having skipped beats and palpitations. [employer] loop check reveals long RP tachycardia more suggestive of sinus and some episodes of non sustained AT for a few seconds. She also needs KANG eval. Prior HPI: Jeanette Vasquez is a 44 y.o. year old seen by Dr. Lama, for c/o palpitations Patient first noted the episode of palpitation that occurred at nighttime valuation sitting in bed resting. She noted a sudden onset of heart rate that increased markedly and make him markedly symptomatic and un comfortable. She has had episodes on a daily [...] was most suggestive of an atrial tachycardia. Isuprelwas started at 2mcg/min to see whether the same tachycardia could be induced. On Isuprel, there wasgood heart rate response and again atrial pacing was performed and this tachycardia was induced at 500/250ms again with a TCL of 240 milliseconds with CL variation and wobble. The atrial tachycardia then degenerated into atrial fibrillation. Initially when the patient had the atrial tach for a minute, I did multipolar mapping with the PentaRay catheter and this localized the rhythm to the high cri stae terminalis before degenerating to atrial fibrillation. Since then she has not had any further episodes of tachycardia that she is experience on a daily basis. She had 1 episodes of palpitations that woke her from sleep recently and that was recorded on [employer] school lunch monitor reveals evidence of sinus tachycardia 120 bpm. Pt had COVID recently and since then has been experiencing palpitations. She notes these when she is changing positions and also when she bends down. 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 Lowest blood pressure notable on this was 125/85 heart rate of 95 noted at 6-minute. Isuprel was increased to 1 ken per minute at 5-minute hari. At end of the testin supine position blood pressure 117/82 heart rate of 93 Echocardiogram performed on 05/19/2020 shows normal ejection fraction PMH: Past Medical History: Diagnosis Date Abnormal ECG Arrhythmia PSH: Past Surgical History: Procedure Laterality Date ANKLE SURGERY CHOLECYSTECTOMY HYSTERECTOMY KNEE SURGERY SH: Social Determinants of Health Tobacco Use: Low Risk (01/15/2025) Patient History Smoking Tobacco Use: Never Smokeless Tobacco Use: Never Passive Exposure: Not on file Alcohol Use: Not on file Financial Resource Strain: Not on file Food Insecurity: Not on file Transportation Needs: Not on file Physical Activity: Not on file Stress: Not on file Social Connections: Not on file Intimate Partner Violence: Unknown (09/29/2023) [place] Safety & Environment Fear of Current or Ex-Partner: Not on file Emotionally Abused: Not on file Physically Abused: Not on file Sexually Abused: Not on file Physically or Sexually Abused: Not on file Depression: At risk (02/25/2021) Received from [employer], [employer] [facility] PHQ-2 Total Score: 12 Housing Stability: Not on file Utilities: Not on file Health Literacy: Not on file Meds: Current Outpatient Medications on File Prior to Visit Medication Sig Dispense Refill ergocalciferol (Vitamin D-2) 1.25 MG (08214 Units) capsule Take 1 capsule by mouth every 7 (seven) days. metoprolol tartrate (Lopressor) 50 mg tablet TAKE 1 TABLET IN THE MORNING AND AT BEDTIME 60 tablet 0 traZODone (Desyrel) 50 mg tablet Take 50 mg by mouth at bedtime. No current facility-administered medications on file prior to visit. ROS: Review of Systems Constitutional: Negative. HENT: Negative. Eyes: Negative. Cardiovascular: Positive for palpitations. Respiratory: Negative. Endocrine: Negative. Hematologic/Lymphatic: Negative. Skin: Negative. Musculoskeletal: Negative. Gastrointestinal: Negative. Genitourinary: Negative. Neurological: Positive for dizziness and light-headedness. Psychiatric/Behavioral: Negative. Allergic/Immunologic: Negative. Physical Exam: Constitutional General Appearance: well-nourished, well-developed, appears stated age Level of Distress: comfortable Psychiatric Mental Status: alert, normal affect Orientation: oriented to time, place, and person Insight: good judgement Eyes Lids and Conjunctivae: non-injected, no xanthelasma ENMT Ears: no lesions on external ear Nose: no lesions on external nose Oropharynx: no cyanosis, no pallor Neck Neck: supple, trachea midline Carotid Arteries: bilateral normal upstroke, no bruits Jugular Veins: normal jugular venous pressure Thyroid: not enlarged Lungs Respiratory Effort: unlabored Chest Exam: normal curvature, no thoracic deformity Auscultation: clear, no wheezing, no rales, no rhonchi Cardiovascular Rate And Rhythm: regular Heart Sounds: normal S1, normal s2, no gallop Systolic Murmur: not heard Diastolic Murmur: not heard Extremities: no cyanosis, no edema, no peripheral signs of emboli Peripheral Pulses Radial Pulse: normal Abdomen Inspection and Palpation: soft, non distended, no bruit, non tender Musculoskeletal Inspection: no joint swelling Neurologic Gait: normal gait Skin Inspection and Palpation: warm and dry Nails: no clubbing Labs: @LABRESULTS@ EKG: No results found for this or any previous visit (from the past 4464 hour(s)). Echo: No echocardiogram results found for the past 12 months Stress test: Coronary angiogram: @CATH@ Diagnostic Imaging: No images are attached to the encounter. Assessment and Plan: - Inappropriate sinus tachycardia vs non sustained AT: Loop monitor revealing long RP tachycardia 220 in the morning is more likely suggestive of atrial tachycardia or beta-norbert withdrawal. I have suggested that the patient will trial flecainide and see how she feels. She will be started on flecainide 100 mg twice daily to see if she is notices a difference in her symptomatology. 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 - Atrial tachycardia: s/p ablation from high cristae. Feels much better. KANG eval : Being followed by [facility] for this Vishal Zarate MD Cardiac Electrophysiology [facility] documented in this encounter Plan of Treatment Not on file documented as of this encounter Visit Diagnoses Diagnosis SVT (supraventricular tachycardia) Other specified cardiac dysrhythmias documented in this encounter Care Teams Construction Inspector Relationship Specialty Start Date End Date Álvaro Rodriguez MD [address] [place] [address] PCP - General Family Medicine 12/15/22 documented as of this encounter
--- OUTSIDE RECORDS SUMMARY | 2025-01-17 08:04 | XMS_ITS | Encounter Summary ---
Author Organization [facility] Address [address] [place] [address] Care Team Providers Care Nitroglycerin Distributor Name Role Phone Álvaro Rodriguez MD Primary Care Provider [phone] Encounter Details Date Type Department Care Team (Late st Contact Info) Description 11/23/2024 Orders Only [facility] [address] [place] [address] Chace Celeste MD [address] [place] [address] Social History Tobacco Use Types Packs/Day Years [...] on file documented as of this encounter Procedures Procedure Name Priority Date/Time Associated Diagnosis Comments CARDIAC DEVICE CHECK - REMOTE - LOOP RECORDER (ILR) Routine 11/23/2024 12:00 AM EDT documented in this encounter Results * Cardiac device check - Remote loop recorder (ILR) (11/23/2024 12:00 AM EDT) Anatomical Region Laterality Modality Other 11/23/2024 Chace Celeste MD CV IMPLANTABLE CARDIAC DEVICE PROCEDURES Final Result documented in this encounter Visit Diagnoses Not on filedocumented in this encounter Care Teams Nitroglycerin Distributor Relationship Specialty Start Date End Date Álvaro Rodriguez MD [address] [place] [id number] PCP - General Family Medicine 12/15/22 documented as of this encounter
--- OUTSIDE RECORDS SUMMARY | 2025-01-17 08:04 | XMS_ITS | Encounter Summary ---
Author Organization [facility] Address [address] [place] [address] Care Team Providers Care Learn To Swim Instructor Name Role Phone Álvaro Rodriguez MD Primary Care Provider [phone] Reason for Visit * Reason Comments Med Refill Encounter Details Date Type Department Care Team ([facility] st Contact Info) Description 09/27/2023 Refill [facility] Cardiology Clinic [address] [place] [phone] Vishal Zarate MD [address] [place] [phone] SVT (supraventricular tachycardia) Social History Tobacco Use Types Packs/Day Years Used Date Smoking Tobacco: Never Assessed MD Safety & Environment Answer Date Rec orded [...] dysrhythmias documented in this encounter Care Teams Learn To Swim Instructor Relationship Specialty Start Date End Date Álvaro Rodriguez MD [address] [place] [address] PCP - General Family Medicine 12/15/22 documented as of this encounter
--- OUTSIDE RECORDS SUMMARY | 2025-01-17 08:04 | XMS_ITS | Encounter Summary ---
Author Organization [facility] Address [address] [place] [address] Care Team Providers Care Masking Machine Feeder Name Role Phone Fina Lama MD Unavailable [phone] Source Comments In the event this information is protected by the Federal Confidentiality of Alcohol and Drug AbusePatient Records regulations: The Federal rules restrict any use of the information to criminally investigate or prosecute any alcohol or drug abuse patient.[facility] Encounter Details Date Type Department Care Team (Addi st Contact Info) Description 07/27/2022 [place] [address] Provider, Ccf MRI Screening Questionnaire Completion Required [...] on filedocumented in this encounter Care Teams Masking Machine Feeder Relationship Specialty Start Date End Date Fina Lama MD [address] [facility] [place] [address] Referring Family Medicine 06/10/22 documented as of this encounter
--- OUTSIDE RECORDS SUMMARY | 2025-01-17 08:04 | XMS_ITS | Encounter Summary ---
Author Organization [facility] Address [address] [place] [address] Care Team Providers Care Technical Support Internship Name Role Phone Fina Lama MD Unavailable [phone] Source Comments In the event this information is protected by the Federal Confidentiality of Alcohol and Drug AbusePatient Records regulations: The Federal rules restrict any use of the information to criminally investigate or prosecute any alcohol or drug abuse patient.[facility] Encounter Details Date Type Department Care Team (Late st Contact Info) Description 10/15/2022 Get Medical Advice Neurology [address] [place] [address] Provider, Ccf Question regarding MRI [...] N ot on file 08/22/2022 Data from: https://www.neighborhoodatlas.medicine.[facility].edu/. Last address used for calculation [...] on filedocumented in this encounter Care Teams Technical Support Internship Relationship Specialty Start Date End Date Fina Lama MD [address] [place] [address] Referring Family Medicine 06/10/22 documented as of this encounter
--- OUTSIDE RECORDS SUMMARY | 2025-01-17 08:04 | XMS_ITS | Encounter Summary ---
Author Organization [facility] Address [address] [place] [address] Care Team Providers Care Internal Review And Audit Compliance Name Role Phone Fina Lama MD Unavailable Source Comments In the event this information is protected by the Federal Confidentiality of Alcohol and Drug AbusePatient Records regulations: The Federal rules restrict any use of the information to criminally investigate or prosecute any alcohol or drug abuse patient.[facility] Encounter Details Date Type Department Care Team (Late st Contact Info) Description 07/14/2022 Get Medical Advice Neurology [address] [place] [phone] Provider, Ccf Positive ESEQUIEL Social History Tobacco [...] on filedocumented in this encounter Care Teams Internal Review And Audit Compliance Relationship Specialty Start Date End Date Fina Lama MD [address] [facility] [address] Referring Family Medicine 06/10/22 documented as of this encounter
--- OUTSIDE RECORDS SUMMARY | 2025-01-17 08:04 | XMS_ITS | Encounter Summary ---
Author Organization [facility] Address [address] [place] [address] Care Team Providers Care Manager Plan Name Role Phone Fina Lama MD Unavailable [phone] Source Comments In the event this information is protected by the Federal Confidentiality of Alcohol and Drug AbusePatient Records regulations: The Federal rules restrict any use of the information to criminally investigate or prosecute any alcohol or drug abuse patient.[facility] Encounter Details Date Type Department Care Team (Late st Contact Info) Description 10/12/2022 [place] [address] Provider, Ccf Questionnaire Submission Social History Tobacco [...] N ot on file 08/22/2022 Data from: https://www.neighborhoodatlas.medicine.[facility].edu/. Last address used for calculation [address] [...] on filedocumented in this encounter Care Teams Manager Plan Relationship Specialty Start Date End Date Fina Lama MD [address] [place] [address] Referring Family Medicine 06/10/22 documented as of this encounter
--- OUTSIDE RECORDS SUMMARY | 2025-01-17 08:04 | XMS_ITS | Encounter Summary ---
Author Organization [facility] Address [address] [place] [address] Care Team Providers Care Senior Information Security Analyst Name Role Phone Fina Lama MD Unavailable Source Comments In the event this information is protected by the Federal Confidentiality of Alcohol and Drug AbusePatient Records regulations: The Federal rules restrict any use of the information to criminally investigate or prosecute any alcohol or drug abuse patient.[facility] Encounter Details Date Type Department Care Team (Late st Contact Info) Description 09/07/2022 [place] [address] Provider, Ccf Questionnaire Submission Social History Tobacco [...] N ot on file 08/22/2022 Data from: https://www.neighborhoodatlas.medicine.[facility].edu/. Last address used for calculation [address] [...] on filedocumented in this encounter Care Teams Senior Information Security Analyst Relationship Specialty Start Date End Date Fina Lama MD [address] [place] [address] Referring Family Medicine 06/10/22 documented as of this encounter
--- OUTSIDE RECORDS SUMMARY | 2025-01-17 08:04 | XMS_ITS | Encounter Summary ---
Author Organization [facility] Address [address] [place] [address] Care Team Providers Care Condenser Tube Tender Name Role Phone Fina Lama MD Unavailable [phone] Source Comments In the event this information is protected by the Federal Confidentiality of Alcohol and Drug AbusePatient Records regulations: The Federal rules restrict any use of the information to criminally investigate or prosecute any alcohol or drug abuse patient.[facility] Encounter Details Date Type Department Care Team (Late st Contact Info) Description 07/09/2022 Get Medical Advice Neurology [address] [place] [phone] Provider, Ccf Question regarding ESEQUEIL BY IFA WITH REFLEX Social History Tobacco [...] on filedocumented in this encounter Care Teams Condenser Tube Tender Relationship Specialty Start Date End Date Fina Lama MD [address] [place] [address] Referring Family Medicine 06/10/22 documented as of this encounter
--- OUTSIDE RECORDS SUMMARY | 2025-01-17 08:04 | XMS_ITS | Encounter Summary ---
Author Organization [facility] Address [address] [place] [address] Care Team Providers Care Medical Physiologist Name Role Phone Fina Lama MD Unavailable [phone] Source Comments In the event this information is protected by the Federal Confidentiality of Alcohol and Drug AbusePatient Records regulations: The Federal rules restrict any use of the information to criminally investigate or prosecute any alcohol or drug abuse patient.[facility] Encounter Details Date Type Department Care Team (Late st Contact Info) Description 10/11/2022 Patient Msg MRI Q [address] [address] Provider, Cc MRI Social History Tobacco Use [...] N ot on file 08/22/2022 Data from: https://www.neighborhoodatlas.medicine.[facility].edu/. Last address used for calculation [address] [...] on filedocumented in this encounter Care Teams Medical Physiologist Relationship Specialty Start Date End Date Fina Lama MD [address] [place] [address] Referring Family Medicine 06/10/22 documented as of this encounter
--- OUTSIDE RECORDS SUMMARY | 2025-01-17 08:04 | XMS_ITS | Clinical Summary ---
Author Organization [facility] Address [address] [place] [address] Care Team Providers Care Investment Recovery Technician Name Role Phone Álvaro Rodriguez MD Primary Care Provider [phone] Allergies No known active allergies Medications metoprolol [...] 2022 Influenza Vaccine (Season Ended) 2025 Insurance [facility] Care Teams Investment Recovery Technician Relationship Specialty Start Date End Date Álvaro Rodriguez MD PCP - General Family Medicine 08/25/23
--- OUTSIDE RECORDS SUMMARY | 2025-01-17 08:04 | XMS_ITS | Encounter Summary ---
Author Organization [facility] Address [address] [place] [address] Care Team Providers Care Subscription Crew Leader Name Role Phone Álvaro Rodriguez MD Primary Care Provider [phone] Reason for Visit * Reason Comments Med Refill Encounter Details Date Type Department Care Team ([facility] st Contact Info) Description 03/25/2023 Refill [facility] Cardiology [address] [place] [phone] Courtney Medina, BUILDING CONSTRUCTION ESTIMATOR [address] [place] [phone] Supraventricular tachycardia Social History Tobacco Use Types Packs/Day Years Used Date Smoking Tobacco: Never Assessed Comments Unknown Sex and Gender Information Value Date Recorded Sex Assigned at Not on file Legal Sex Female 12:30 AM EDT Gender Identity Not on file Sexual Orientation Not on file documented as of this encounter Plan of Treatment Not on file documented as of this encounter Visit Diagnoses Diagnosis Supraventricular tachycardia Other specified cardiac dysrhythmias documented in this encounter Care Teams Subscription Crew Leader Relationship Specialty Start Date End Date Álvaro Rodriguez MD [address] [place] [address] PCP - General Family Medicine 12/15/22 documented as of this encounter
--- OUTSIDE RECORDS SUMMARY | 2025-01-17 08:04 | XMS_ITS | Patient Health Record ---
Author Organization [facility] Address [address] [place] [address] Care Team Providers Care Metal Storage Worker Name Role Phone Álvaro Rodriguez Primary Care Provider Unavailabl e Allergies No Known Allergies Reason For Referral No Information Social History Tobacco Use: Social History Observation [...] Problem Status W/U Status Risk Notes Problem [id number] Spondylosis with out myelopathy or radiculopathy, lumbar region (M47.816) Active confirmed Problem 89124967 Other intervertebral disc degeneration, lumbosacral region (M51.37) Active confirmed Plan Of Treatment No Information Insurance Providers Payer Name Payer Address Payer Phone Subscriber Number Group Number Insured Name Patient Relationship to Insured Coverage Start Date Coverage End Date [employer] [address] [address] [place] [address] [id number] Self - patient is the insured Medical (General) History Medical History History ICD Code Abnormal Heart Rhythm Gastric Reflux Kidney stones Osteoarthritis Anemia Ovarian Cysts Anxiety 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
--- OUTSIDE RECORDS SUMMARY | 2025-01-17 08:04 | XMS_ITS | Encounter Summary ---
Author Organization [facility] Address [address] [place] [address] Care Team Providers Care E Commerce Strategist Name Role Phone Fina Lama MD Unavailable Source Comments In the event this information is protected by the Federal Confidentiality of Alcohol and Drug AbusePatient Records regulations: The Federal rules restrict any use of the information to criminally investigate or prosecute any alcohol or drug abuse patient.[facility] Encounter Details Date Type Department Care Team (Late st Contact Info) Description 08/30/2022 Get Medical Advice Cardiology [address] [place] [address] Malka Sy MD [address] [facility] [place] [address] Question regarding EKG RHYTHM STRIP [...] N ot on file 08/22/2022 Data from: https://www.neighborhoodatlas.medicine.[facility].edu/. Last address used for calculation [address] [...] on filedocumented in this encounter Care Teams E Commerce Strategist Relationship Specialty Start Date End Date Fina Lama MD [address] [place] [address] Referring Family Medicine 06/10/22 documented as of this encounter
--- OUTSIDE RECORDS SUMMARY | 2025-01-17 08:05 | XMS_ITS | Referral Summary ---
Author Organization [facility] [place] [address] Care Team Providers Care Cable Tester Name Role Phone Álvaro Rodriguez MD Primary Care Provider [phone] Encounters Date Type Department Care Team Description 01/15/2025 3:15 PM EDT Office Visit [facility] [place] [address] [place] [address] Vishal Zarate MD SVT (supraventricular tachycardia) 12/25/2024 8:40 PM EDT Ancillary Procedure [facility] [address] [place] [address] Awareness of heartbeats 12/24/2024 Orders Only [facility] [address] [place] [address] Chace Celeste MD 12/11/2024 Refill [facility] [address] [place] [phone] Vishal Zarate MD SVT (supraventricular tachycardia) 12/07/2024 Refill [facility] [address] [place] [phone] Vishal Zarate MD SVT (supraventricular tachycardia) 11/23/2024 Orders Only [facility] [place] [facility] [address] [place] [address] Chace Celeste MD 11/23/2024 5:40 PM EDT Ancillary Procedure [facility] [address] [place] [address] Awareness of heartbeats 11/03/2024 Refill [facility] [address] [place] [address] Vishal Zarate MD SVT (supraventricular tachycardia) 10/24/2024 5:30 PM EDT Ancillary Procedure [facility] [place] [facility] [address] [place] [address] Awareness of heartbeats from Last 3 Months Allergies No known active allergies Medications traZODone (Desyrel) 50 mg tablet Take 50 mg by mouth at bedtime. Active ergocalciferol (Vitamin D-2) 1.25 MG (52394 Units) capsule Take 1 capsule by mouth every 7 (seven) days. 5 Active metoprolol tartrate (Lopressor) 50 mg tabletIndicatio ns:SVT (supraventricul ar tachycardia) Take 1 tablet (50 mg) by mouth two times daily. 180 tablet 3 5 Active flecainide (Tambocor) 100 mg tabletIndicatio ns:SVT (supraventricul ar tachycardia) Take 1 tablet (100 mg) by mouth two times daily. 180 tablet 3 5 01/16/20 26 Active metoprolol tartrate (Lopressor) 50 mg tabletIndicatio ns:SVT (supraventricul ar tachycardia) TAKE 1 TABLET IN THE MORNING AND AT BEDTIME 60 tablet 5 01/16/20 25 Discontinu ed(Reorder ) Active Problems Problem Noted Date Diagnosed Date Atrial tachycardia 01/15/2025 Contact with and (suspected) exposure to environmental tobacco smoke (acute) (chronic) 01/15/2025 Degeneration of intervertebral disc of lumbosacr al region 01/15/2025 Epigastric pain 01/15/2025 Facial tingling 01/15/2025 Facial twitching 01/15/2025 Morbid obesity 01/15/2025 Other specified abnormal immunological findings in serum 01/15/2025 Otitis media 01/15/2025 Shortness of breath 01/15/2025 Spondylosis without myelopat hy or radiculopathy, lumbar region 01/15/2025 Tunnel vision 01/15/2025 Anxiety 12/15/2022 Overview (12/15/2022): unspecified, chronic Anemia [...] Tobacco: Never Tobacco Cessation:Counseling Given: Not Answered [place] [employer] Answer Date Rec [...] Mass Index 41.93 01/15/2025 3:47 PM EDT Plan of Treatment Not on file Medical Devices Implanted Type Area Senior Solutions Engineer Device Identifier Shelf Expiration Date Model / Serial / Lot [id number] Biomonitor Iiim [id number] Implanted:11/06 (Quantity not on file) Implantable Loop Recorder [id number] BIOMONITOR IIIM / [id number] / Procedures Procedure Name Priority Date/Time Associated [...] of3 resultswithin the time period is included. us Vishal Zarate MD CV IMPLANTABLE CARDIAC DEVICE RI OCEDURES Final Result CPACS * Cardiac device check - Remote loop recorder (ILR) (12/24/2024 12:00 AM EDT) Only the most recent of2 resultswithin the time period is included. Anatomical Region Laterality Modality Other 12/24/2024 Chace Celeste MD CV IMPLANTABLE CARDIAC DEVICE PROCEDURES Final Result from Last 3 Months Insurance [facility] Care Teams Cable Tester Relationship Specialty Start Date End Date Álvaro Rodriguez MD [address] [place] [address] PCP - General Family Medicine 12/15/22
--- OUTSIDE RECORDS SUMMARY | 2025-01-17 08:05 | XMS_ITS | Clinical Summary ---
Author Organization [facility] Address [address] [place] [address] Care Team Providers Care Environmental Studies Program Director Name Role Phone Álvaro Rodriguez MD Primary Care Provider [phone] Allergies No known active allergies Medications traZODone (Desyrel) 50 mg tablet Take 50 mg by mouth at bedtime. Active ergocalciferol (Vitamin D-2) 1.25 MG (72195 Units) capsule Take 1 capsule by mouth [...] Description 01/15/2025 3:15 PM EDT Office Visit [facility] [address] [place] [address] Vishal Zarate MD SVT (supraventricular tachycardia) 12/25/2024 8:40 PM EDT Ancillary Procedure [facility] [address] [place] [address] Awareness of heartbeats 12/24/2024 Orders Only [facility] [address] [place] [address] Chace Celeste MD 12/11/2024 Refill [facility] [address] [place] [phone] Vishal Zarate MD SVT (supraventricular tachycardia) 12/07/2024 Refill [facility] [address] [place] [phone] Vishal Zarate MD SVT (supraventricular tachycardia) 11/23/2024 5:40 PM EDT Ancillary Procedure [facility] [address] [place] [phone] Awareness of heartbeats 11/23/2024 Orders Only [facility] [address] [place] [phone] Chace Celeste MD 11/03[facility] [facility] [address] [place] [phone] Vishal Zarate MD SVT (supraventricular tachycardia) 10/24/2024 5:30 PM EDT Ancillary Procedure [facility] [address] [place] [phone] Awareness of heartbeats from Last 3 Months [...] 01/15/2025 3:47 PM EDT Plan of Treatment Health Maintenance [...] this topic Medical Devices Implanted Type Area Regional Sales Associate Device Identifier Shelf Expiration Date Model / Serial / Lot [id number] Biomonitor Iiim [id number] Implanted:11/06 (Quantity not on file) Implantable Loop Recorder [id number] BIOMONITOR IIIM / [id number] / Procedures Procedure Name Priority Date/Time Associated [...] Vishal Zarate MD CV IMPLANTABLE CARDIAC DEVICE VA OCEDURES Final Result CPACS * Cardiac device check - Remote loop recorder (ILR) (12/24/2024 12:00 AM EDT) Only the most recent of2 resultswithin the time period is included. Anatomical Region Laterality Modality Other 12/24/2024 us Chace Celeste MD CV IMPLANTABLE CARDIAC DEVICE PROCEDURES Final Result from Last 3 Months Insurance [facility] Member Subscriber Plan / Payer (Ef fective 2022-Present) Name:Jeanette Vasquez Member ID:[id number] Relation to Subscriber:Self Name:Jeanette Vasquez Subscriber ID:[id number] Payer ID:[id number] (NAIC) Type:Not on file Address: [facility] [id number] [place] [id number] Care Teams Environmental Studies Program Director Relationship Specialty Start Date End Date Álvaro Rodriguez MD [address] [place] [address] PCP - General Family Medicine 12/15/22
--- OUTSIDE RECORDS SUMMARY | 2025-01-17 08:05 | XMS_ITS | Clinical Summary ---
Author Organization [employer] [facility] [employer] Address [id number] [address] [place] [address] Care Team Providers Care Bullet Swaging Machine Adjuster Name Role Phone Fina Lama MD Primary Care Provider [phone] Allergies No known active allergies Medications metoprolol [...] Medical Devices Not on file Care Teams Bullet Swaging Machine Adjuster Relationship Specialty Start Date End Date Fina Lama MD PCP - General Family Medicine 02/25/21
--- OUTSIDE RECORDS SUMMARY | 2025-01-17 08:05 | XMS_ITS | Patient Health Record ---
Author Organization [facility] Address [address] [place] [address] Care Team Providers Care Semiautomatic Taper Operator Name Role Phone Álvaro Rodriguez MD [...] Status W/U Status Risk Notes Problem Palpitations (07235208) Palpitations (R00.2) Active confirmed Problem Shortness of breath (012144802) Shortness of breath (R06.02) Active confirmed Problem Morbid obesity (310021882) Morbid obesity (E66.01) Active confirmed Problem Obstructive sleep apnea (95797992) Obstructive sleep apnea (G47.33) Active confirmed Problem Atrial tachycardia (903375604) Atrial tachycardia (I47.1) Active confirmed Problem Abnormal immunology finding (926322314) Elevated antinuclear antibody (ESEQUIEL) level (R76.8) Active confirmed Problem Exposure to second hand tobacco smoke (event) (189845240954744 03) Secondhand smoke exposure (Z77.22) Active confirmed Plan Of Treatment No Information Insurance Providers Payer Name Payer Address Payer Phone Subscriber Number Group Number Insured Name Patient Relationship to Insured Coverage Start Date Coverage End Date [employer] [address] [place] [address] [id number] Jeanette Vasquez Self - patient is the insured 3 Medical (General) History Medical History History ICD Code Obstructive sleep apnea G47.33 Atrial tachycardia I47.1 Elevated antinuclear antibody (ESEQUIEL) edgar ulloa R76.8 Palpitations R00.2 Morbid obesity E66.01 Secondhand smoke exposure Z77.22 Surgical History Surgery Date(Month/Year) Implantable loop recorder 11/17/2021 left knee arthroscopy cholecystectomy hysterectomy, abdominal 12/23/2017 left ankle surgery 06/01/2019
--- OUTSIDE RECORDS SUMMARY | 2025-01-17 08:05 | XMS_ITS | Clinical Summary ---
Author Organization [facility] Address [address] [place], [place] [address] Care Team Providers Care Grinder Set Up Operator Thread Name Role Phone Fina Lama MD Unavailable [phone] Allergies No known active allergies Medications aspirin [...] on file 08/22/2022 Data from: https://www.neighborhoodatlas.medicine.[facility].edu/. Last address used for calculation [address] [...] Vaccine (Season Ended) 2025 05/08/20 22 Insurance [employer] Member Subscriber Plan / Payer (Ef fective 2022-Present) Name:Jeanette Vasquez Member ID:[id number] Relation to Subscriber:Self Name:Jeanette Vasquez Subscriber ID:[id number] Payer ID:[id number] (NAIC) Group ID:Not on file Type:PPO Address: [facility] [address] [place] [id number] Care Teams Grinder Set Up Operator Thread Relationship Specialty Start Date End Date Fina Lama MD [address] [place] [address] Referring Family Medicine 06/10/22
--- OUTSIDE RECORDS SUMMARY | 2025-01-17 08:17 | XMS_ITS | CCD ---
Author Organization [facility] Care Team Providers Care It Security Project Manager Name Role Phone MERT LAMA Referring Unavailable PAMELLA BRENNAN Attending Unavailable MIKA, PAMELLA Ang Surgeon Unavailable PAMELLA BRENNAN Admitting Unavailable MI Procedure Practitioner Unavailab MERT Caban Primary Care Unavailable MERT LAMA Referring Unavailable NELLY ORNELAS Admitting Unavailable NELLY ORNELAS Attending Unavailable MERT LAMA Primary Care Unavailable MERT LAMA Primary Care Unavailable JONNY FOWLER Admitting Unavailable JONNY FOWLER Attending Unavailable MERT ALMA Referring Unavailable DANIEL, MERT Referring Unavailable MERT [...] LAMA, DR MERT Forrest Primary Care Unavailable EMEANU Consulting Unavailable JENNIFER, WM Admitting Unavailable JENNIFER, [...] GLENROY Referring Unavailable IRMA CORTES Attending Unavailable RIMA CORTES Attending Unavailable Mert Lama MD Primary Care Provider Cristiane Gutiérrez Attending Unavailable BrockCristiane Attending Unavailable BrockCristiane yusuf Attending Unavailable BrockCristiane Attending Unavailable Marlo PIZARRO, Ari Fuller Attending Unavailable Marlo PIZARRO, Ari Fuller Attending Unavailable SUE, VISHAL Referring Unavailable SUE, VISHAL [...] JONNY Referring Unavailable SUE, VISHAL Referring Unavailable Medications [...] Comment on above: Take 1 capsule by [facility] once daily. 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; Translations: [OTH PRODUCT DEVELOPMENT CURRENT DRUG THERAPY] Onset: 09-06-2022 Episodic Other [...] Test Name Value Interpretation Reference Range Facility Orders Onlyon 12-24-2024 Orders Only [id number] ChristinaBacilio Diaz 1980 F Date Provider Department Center 12/24/2024 Shruti-MARI MCCORD [facility] No family history on file Normal [facility] 36on 12-11-2024 36 Patient has not been seen since 2022 will need in person appointment for further refills Normal [facility] 36on 12-07-2024 36 Patient has not been seen since 2022 [facility] Family Medicine Office/Clini c Noteon 11-16-2024 [...] day(s), # 14 tab(s), Refills(s) 0, Pharmacy: [facility]/pharmacy #[id number], 165.1, cm, 11/15/24 15:29:00 EDT, Height/Length Dosing, 116, kg, 11/15/24 15:29:00 EDT, Weight Dosing 2. Ear pain (H92.09: Otalgia, unspecified ear) augmentin sent in. pt to use debrox and return for ear irrigation in 7-10 days Ordered: amoxicillin-clavulanat e, = 1 tab(s), Oral, q12hr, X 7 day(s), # 14 tab(s), Refills(s) 0, Pharmacy: [facility]/pharmacy #[id number], 165.1, cm, 11/15/24 15:29:00 EDT, Height/Length [...] day(s), # 14 tab(s), Refills(s) 0, [id number] 165.1, cm, 11/15/24 15:29:00 EDT, Height/Length Dosing, 116, kg, 11/15/24 15:29:00 EDT, Weight Dosing 4. Non-smoker (Z78.9: Other specified health status) continue not smoking Ordered: amoxicillin-clavulanat e, = 1 tab(s), Oral, q12hr, X 7 day(s), # 14 tab(s), Refills(s) 0, [id number] 165.1, cm, 11/15/24 15:29:00 EDT, Height/Length [...] 50,000 intl units (1.25 mg) oral capsule, 56498 International_Unit= 1 cap(s), Oral, qWeek Allergies No [...] vaccine 09/10/2020 (more content not included)... Normal [facility] Comment on above: Result Comment: Elec tronically Signed By: Cristiane Brasher\.br\Date and Time Signed: 11/16/24 14:28 EDT 36on 11-05-2024 36 Patient will need follow up appointment for further refills has not been seen since 2022 Normal [facility] Family Medicine Office/Clini c Noteon 09-12-2024 Family [...] referral to [facility] sent Ordered: [facility] External Ambulatory Referral 2. Facial tingling (R20.2: Paresthesia of skin) pt had episode when she had facial tingling, and in her mouth. she states it felt like she put a battery to her tongue. Ordered: [facility] External Ambulatory Referral 3. Pressure in head (R51.9: Headache, unspecified) c/o constant pressure of her head. Ordered: [facility] External Ambulatory Referral 4. 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 so much that it made her glasses move up and down. referral to neurology sent Ordered: [facility] External Ambulatory Referral 5. Right upper quadrant [...] Daily, # 30 tab(s), Refills(s) 0, Pharmacy: [facility]/pharmacy #[id number], 165.1, cm, 12/19/23 13:17:00 EDT, Height/Length Dosing, 114.6, kg, 12/19/23 13:17:00 EDT, Weight Dosing [facility] External Ambulatory Referral 9. Non-smoker (Z78.9: Other specified health status) continue not smoking Ordered: meloxicam, 15 mg = 1 tab(s), Oral, Daily, # 30 tab(s), Refills(s) 0, Pharmacy: [facility]/pharmacy #[id number], 165.1, cm, 12/19/23 13:17:00 EDT, Height/Length Dosing, 114.6, kg, 12/19/23 13:17:00 EDT, Weight Dosing Orders: acetaminophen-hydrocod one, 1 tab(s), Oral, Bedtime for pain, 20 tab(s), Refill(s) 0, [facility]/pharmacy #[id number], 165.1, cm, 12/19/23 13:17:00 EDT, Height/Length Dosing, 114.6, kg, 12/19/23 13:17:00 EDT, Weight Dosing methocarbamol, See Instructions, TAKE 1 TABLET BY MOUTH EVERY 6 HOURS NEEDED FOR PAIN, # 30 tab(s), Refills(s) 0, Pharmacy: [facility]/pharmacy #[id number], 165.1, cm, 12/19/23 13:17:00 EDT, [...] Metoprolol tart (more content not included)... Normal [facility] Comment on above: Result Comment: Elec [...] you for choosing us for your care. Jose [facility] ED Note-Physicianon 01-02- ED Note-Physician [id number]#1.00 TIFF [address] [facility] RAD - MRI Reporton RAD - MRI Report [id number]#1.0 0TIFF Normal [facility] RAD - MRI Report [id number]#1.0 0TIFF Normal [facility] RAD - MRI Report [id number]#1.00 TIFF [address] [facility] RAD - MRI Report [id number]#1.00 TIFF [address] [facility] RAD - MRI Report [id number]#1.0 0TIFF [facility] RAD - MRI Report [id number]#1.00 TIFF [facility] Physician Orderon 12-22-2023 Physician Order [id number]#1.00 TIFF [facility] Provider Letteron 12-21-2023 Provider Letter December 21, 2023 KAILA VASQUEZ [address] [place] [address] : 1980 To Whom It May Concern, Please excuse above patient from work. Date of Illness: From: 12/19/2023 To: 12/21/2023 May Return to Work On: 12/22/2023 Sincerely, HARPREET Stewart [address] [address] [facility] Lab Reportson 12-20-2023 Lab Reports [id number]#1.00 TIFF [facility] Physician Orderon 12-20-2023 Physician Order [id number]#1.00 TIFF [address] [facility] RAD - MISCon 12-20-2023 RAD - MIS [id number]#1.00 TIFF [address] [facility] Ambulatory Visit Summaryon 0 12-19-2023 Ambulatory [...] sciatica BMI 40.0-44.9, adult Non-smoker Pickup at [facility]/pharmacy #[id number] New meloxicam (meloxicam 15 mg Tab) 1 Tablets By Mouth Every day Low back pain with sciatica BMI 40.0-44.9, adult Non-smoker Pickup at [facility]/pharmacy #[id number] New methylPREDNISolone (Medrol 4 mg Tab) 1 Packets By Mouth As Directed Low back pain with sciatica BMI 40.0-44.9, adult Non-smoker Duration: 6 Days as directed on package labeling Pickup at [facility]/pharmacy #[id number] Unchanged metoprolol (Metoprolol tartrate 50 mg Tab) 1 Tablets By Mouth 2 times a day Pharmacy Information [facility]/pharmacy #[id number]: [address], [place] [id number] [phone] Medications and Immunizations Administered Given ketorolac 30 [...] for your care. Normal [facility] Consenton 12-19-2023 Consent [id number]#1.00 TIFF [address] [facility] Family Medicine Office/Clini c Noteon 12-19-2023 Family Medicine Office/Clinic Note HPI Staff Kaila is a 43 year old female presenting to [facility] care Establish Care: History: Any previous diagnosis: see problem list, arthritis History of seeing any specialist: When was your last doctors visit: Last provider: Dr Lama Any recent labs: 1.5 years ago CC, pt wouldl like yearly labs and she will have done at [facility] she works there Health Maintenance UTD: Colonoscopy: 2021 normal Mammogram: Has order Pelvic/Pap: 12/2023 normal Acute: Current issues/complaints: Pain characteristics: Pain location: low back pain radiating to bilateral hips sciatica down both legs Intensity:9/10 Onset: 1 day ago Pt states when [...] sit, lay down. Had x-ray done at [facility] for spine over a year or [...] Bedtime for spasm, 20 cap(s), Refill(s) 0, [facility]/pharmacy #[id number], 165.1, cm, 12/19/23 13:17:00 EDT, Height/Length Dosing, 114.6, kg, 12/19/23 13:17:00 EDT, Weight Dosing ketorolac, 30 mg = 1 mL, Injection, IntraMuscular, Once, Stop date 12/19/23 13:35:00 EDT, Routine, Start date 12/19/23 13:35:00 EDT, 12/19/23 13:35:00 EDT meloxicam, 15 mg = 1 tab(s), Oral, Daily, # 30 tab(s), Refills(s) 0, Pharmacy: [facility]/pharmacy #[id number], 165.1, cm, 12/19/23 13:17:00 EDT, Height/Length Dosing, 114.6, kg, 12/19/23 13:17:00 EDT, Weight Dosing methylPREDNISolone, = 1 packet(s), Oral, As Directed, as directed on package labeling, X 6 day(s), # 21 tab(s), Refills(s) 0, Pharmacy: [facility]/pharmacy #[id number], 165.1, cm, 12/19/23 13:17:00 EDT, Height/Length Dosing, 114.6, kg, 12/19/23 13:17:00 EDT, Weight Dosing 2. BMI 40.0-44.9, adult (Z68.41: Body mass index [BMI] 40.0-44.9, adult) BMI education complete Ordered: cyclobenzaprine, 15 mg, 1 cap(s), Oral, Bedtime for spasm, 20 cap(s), Refill(s) 0, [id number] 165.1, cm, 12/19/23 13:17:00 EDT, Height/Length Dosing, 114.6, kg, 12/19/23 13:17:00 EDT, Weight Dosing ketorolac, 30 mg = 1 mL, Injection, IntraMuscular, Once, Stop date 12/19/23 13:35:00 EDT, Routine, Start date 12/19/23 13:35:00 EDT, 12/19/23 13:35:00 EDT meloxicam, 15 mg = 1 tab(s), Oral, Daily, # 30 tab(s), Refills(s) 0, [id number], 165.1, cm, 12/19/23 13:17:00 EDT, Height/Length Dosing, 114.6, kg, 12/19/23 13:17:00 EDT, Weight Dosing methylPREDNISolone, = 1 packet(s), Oral, As Directed, as directed on package labeling, X 6 day(s), # 21 tab(s), Refills(s) 0, Pharmacy: [facility]/pharmacy #[id number], 165.1, cm, 12/19/23 13:17:00 EDT, Height/Length Dosing, 114.6, kg, 12/19/23 13:17:00 EDT, Weight Dosing 3. Non-smoker (Z78.9: Other specified health status) continue not smoking Ordered: cyclobenzaprine, 15 mg, 1 cap(s), Oral, Bedtime for spasm, 20 cap(s), Refill(s) 0, [facility]/pharmacy #[id number], 165.1, cm, 12/19/23 13:17:00 EDT, Height/Length Dosing, 114.6, kg, 12/19/23 13:17:00 EDT, Weight Dosing ketorolac, 30 mg = 1 mL, Injection, IntraMuscular, Once, Stop date 12/19/23 13:35:00 EDT, Routine, Start date 12/19/23 13:35:00 EDT, 12/19/23 13:35:00 EDT meloxicam, 15 mg = 1 tab(s), Oral, Daily, # 30 tab(s), Refills(s) 0, Pharmacy: [facility]/pharmacy #[id number], 165.1, cm, 12/19/23 13:17:00 EDT, Height/Length Dosing, 114.6, kg, 12/19/23 13:17:00 EDT, Weight Dosing methylPREDNISolone, = 1 packet(s), Oral, As Directed, as directed on package labeling, X 6 day(s), # 21 tab(s), Refills(s) 0, Pharmacy: [facility]/pharmacy #[id number], 165.1, cm, 12/19/23 13:17:00 EDT, Height/Length Dosing, 114.6, kg, 12/19/23 13:17:00 EDT, Weight Dosing Follow-up No qualifying data available Problem List/Past Medical History Ongoing Anemia Anxiety (more content not included)... Normal [facility] Comment on above: Result Comment: Elec tronically Signed By: Cristiane Brasher\.leia\Date and Time Signed: 12/19/23 13:59 EDT Physician Orderon 12-19-2023 Physician Order [id number]#1.00 TIFF [address] [facility] MRI BRAIN WO/W IVCONon 10-14 MRI BRAIN WO/W IVCON * * *Final Report* * * DATE OF EXAM: Oct 14 2022 5:21PM Q 0295 - MRI BRAIN WO/W IVCON / [...] cord. No mass or pathologic intradural enhancement. Artificial Flower Maker: PSCB Transcribe Date/Time: Oct 14 2022 8:43P Dictated by : UNIQUE ANDERSON MD This examination was interpreted and the report reviewed and electronically signed by: UNIQUE ANDERSON MD on Oct 14 2022 8:51PM EST [id number] Normal [facility] MRI CERVICAL SPINE WO/W IVCO [...] cord. No mass or pathologic intradural enhancement. Artificial Flower Maker: PSCB Transcribe Date/Time: Oct 14 2022 8:43P Dictated by : UNIQUE ANDERSON MD This examination was interpreted and the report reviewed and electronically signed by: UNIQUE ANDERSON MD on Oct 14 2022 8:51PM EST [id number] Normal [facility] CBC AUTO DIFFon 09-02-2022 BASO # 0.1 103/ul Normal 0.0-0.1 [facility] Comment on above: Performed By: #### C MP, TSH, HSTROPN #### [facility] [address] [address] [address] Christos Fallon Basophils/100 WBC (Bld) 0.5 % Normal 0.2-2.0 [facility] Comment on above: Performed By: #### C MP, TSH, HSTROPN #### [facility] [address] [place], [place] [address] Dr. Christos Fallon EO # 0.2 103/ul Normal 0.0-0.7 [facility] Comment on above: Performed By: #### C MP, TSH, HSTROPN #### [facility] [address] [place] [address] Dr. Christos Fallon Eosinophils/100 WBC (Bld) 2.3 % Normal 0.9-7.0 [facility] Comment on above: Performed By: #### C MP, TSH, HSTROPN #### [facility] [address] [place] [address] Dr. Christos Fallon Erythrocyte distribution width (RBC) [Ratio] 13.0 % Normal 11.0-15.0 [facility] Comment on above: Performed By: #### C MP, TSH, HSTROPN #### [facility] [address] [place] [address] Dr. Christos Fallon Hematocrit (Bld) [Volume fraction] 43.0 % Normal 36.0-48.0 [facility] Comment on above: Performed By: #### C MP, TSH, HSTROPN #### [facility] [address] [place] [address] Dr. Christos Fallon Hemoglobin (Bld) [Mass/Vol] 13.9 g/dL Normal 12.0-16.0 [facility] Comment on above: Performed By: #### C MP, TSH, HSTROPN #### [facility] [address] [place] [address] Dr. Christos Fallon IG # 0.03 10e3/ul Normal 0.00-0.03 [facility] Comment on above: Performed By: #### C MP, TSH, HSTROPN #### [facility] [address] [place] [address] Dr. Christos Fallon IG % 0.3 % Normal 0.0-0.5 [facility] Comment on above: Performed By: #### C MP, TSH, HSTROPN #### [facility] [address] [place] [address] Dr. Christos Fallon LYMPH # 2.8 103/ul Normal 1.2-3.8 [facility] Comment on above: Performed By: #### C MP, TSH, HSTROPN #### [facility] [address] [place] [address] Dr. Christos Fallon Lymphocytes/100 WBC (Bld) 29.6 % Normal 20.5-60.0 [facility] Comment on above: Performed By: #### C MP, TSH, HSTROPN #### [facility] [address] [place] [address] Dr. Christos Fallon MANUAL DIFF REQ NO Normal [facility] Comment on above: Performed By: #### C MP, TSH, HSTROPN #### [facility] [address] [place] [address] Dr. Christos Fallon MCH (RBC) [Entitic mass] 34.8 pg Critically high 26.7-34.0 [facility] Comment on above: Performed By: #### C MP, TSH, HSTROPN #### [facility] [address] [place] [address] Dr. Christos Fallon MCHC (RBC) [Mass/Vol] 32.3 g/dL Normal 29.9-35.2 [facility] Comment on above: Performed By: #### C MP, TSH, HSTROPN #### [facility] [address] [place] [address] Dr. Christos Fallon MCV (RBC) [Entitic vol] 107.5 fL Critically high 81.0-99.0 [facility] Comment on above: Performed By: #### C MP, TSH, HSTROPN #### [facility] [address] [place] [address] Dr. Christos Fallon MONO # 0.7 103/ul Normal 0.3-0.8 [facility] Comment on above: Performed By: #### C MP, TSH, HSTROPN #### [facility] [address] [place] [address] Dr. Christos Fallon Monocytes/100 WBC (Bld) 7.7 % Normal 1.7-12.0 [facility] Comment on above: Performed By: #### C MP, TSH, HSTROPN #### [facility] [address] [place] [address] Dr. Christos Fallon NEUT # 5.7 103/ul Normal 1.4-6.5 [facility] Comment on above: Performed By: #### C MP, TSH, HSTROPN #### [facility] [address] [place] [address] Dr. Christos Fallon Neutrophils/100 WBC (Bld) 59.6 % Normal 43.0-75.0 [facility] Comment on above: Performed By: #### C MP, TSH, HSTROPN #### [facility] [address] [place] [address] Dr. Christos Fallon Platelet mean volume (Bld) [Entitic vol] 9.9 fL Normal 9.5-13.5 [facility] Comment on above: Performed By: #### C MP, TSH, HSTROPN #### [facility] [address] [place] [address] Dr. Christos Fallon PLT 309 103/ul Normal 150-450 [facility] Comment on above: Performed By: #### C MP, TSH, HSTROPN #### [facility] [address] [place] [address] Dr. Christos Fallon RBC 4.00 106/ul Critically low 4.20-5.40 [facility] Comment on above: Performed By: #### C MP, TSH, HSTROPN #### [facility] [address] [place] [address] Dr. Christos Fallon WBC 9.6 103/ul Normal 4.0-11.0 [facility] Comment on above: Performed By: #### C MP, TSH, HSTROPN #### [facility] [address] [place] [address] Dr. Christos Fallon D-DIMERon 09-02-2022 D-DIMER 0.28 mg/L FEU Normal <=0.59 [facility] Comment on above: Performed By: #### C MP, TSH, HSTROPN #### [facility] [address] [place] [address] Dr. Christos Fallon D-DIMER COMMENTS SEE BELOW Normal [facility] Comment on above: Result Comment: Incr [...] By: #### C MP, TSH, HSTROPN #### [facility] [address] [place] [address] Dr. Christos Fallon PROF 14(COMP METB)on 023 Albumin [Mass/Vol] 3.8 g/dL Normal 3.4-5.0 [facility] Comment on above: Performed By: #### C MP, TSH, HSTROPN #### [facility] [address] [place] [address] Dr. Christos Fallon Albumin/Globulin [Mass ratio] 1.2 {ratio} Normal [facility] Comment on above: Performed By: #### C MP, TSH, HSTROPN #### [facility] [address] [place] [address] Dr. Christos Fallon ALP [Catalytic activity/Vol] 85 U/L Normal 46-116 [facility] Comment on above: Performed By: #### C MP, TSH, HSTROPN #### [facility] [address] [place] [address] Dr. Christos Fallon ALT [Catalytic activity/Vol] 39 U/L Normal 14-59 [facility] Comment on above: Performed By: #### C MP, TSH, HSTROPN #### [facility] [address] [place] [address] Dr. Christos Fallon Anion gap [Moles/Vol] 16.3 mmol/L Normal [facility] Comment on above: Performed By: #### C MP, TSH, HSTROPN #### [facility] [address] [address] [address] Christos Fallon AST [Catalytic activity/Vol] 19 U/L Normal 15-37 [facility] Comment on above: Performed By: #### C MP, TSH, HSTROPN #### [facility] [address] [address] [address] Christos Fallon Bilirubin [Mass/Vol] 0.4 mg/dL Normal 0.2-1.0 [facility] Comment on above: Performed By: #### C MP, TSH, HSTROPN #### [facility] [address] [place] [address] Dr. Christos Fallon Calcium [Mass/Vol] 9.2 mg/dL Normal 8.5-10.1 [facility] Comment on above: Performed By: #### C MP, TSH, HSTROPN #### [facility] [address] [place] [address] Dr. Christos Fallon Chloride [Moles/Vol] 101 mmol/L Normal 98-107 [facility] Comment on above: Performed By: #### C MP, TSH, HSTROPN #### [facility] [address] [place] [address] Dr. Christos Fallon CO2 [Moles/Vol] 24.9 mmol/L Normal 21.0-32.0 [facility] Comment on above: Performed By: #### C MP, TSH, HSTROPN #### [facility] [address] [place] [address] Dr. Christos Fallon Creatinine [Mass/Vol] 0.83 mg/dL Normal 0.55-1.02 [facility] Comment on above: Performed By: #### C MP, TSH, HSTROPN #### [facility] [address] [place] [address] Dr. Christos Fallon EGFR-AF AFGHAN >60 Normal >=60 [facility] Comment on above: Performed By: #### C MP, TSH, HSTROPN #### [facility] [address] [place] [address] Dr. Christos Fallon EGFR-NON AF AFGHAN >60 Normal >=60 [facility] Comment on above: Performed By: #### C MP, TSH, HSTROPN #### [facility] [address] [address] [address] Christos Fallon Globulin (S) [Mass/Vol] 3.2 g/dL Normal [facility] Comment on above: Performed By: #### C MP, TSH, HSTROPN #### [facility] [address] [address] [address] Christos Fallon Glucose [Mass/Vol] 142 mg/dL Critically high 74-106 [facility] Comment on above: Performed By: #### C MP, TSH, HSTROPN #### [facility] [address] [place] [address] Dr. Christos Fallon Potassium [Moles/Vol] 3.2 mmol/L Critically low 3.5-5.1 [facility] Comment on above: Performed By: #### C MP, TSH, HSTROPN #### [facility] [address] [place] [address] Dr. Christos Fallon Protein [Mass/Vol] 7.0 g/dL Normal 6.4-8.2 [facility] Comment on above: Performed By: #### C MP, TSH, HSTROPN #### [facility] [address] [place] [address] Dr. Christos Fallon Sodium [Moles/Vol] 139 mmol/L Normal 136-145 [facility] Comment on above: Performed By: #### C MP, TSH, HSTROPN #### [facility] [address] [place] [address] Dr. Christos Fallon Urea nitrogen [Mass/Vol] 10.0 mg/dL Normal 7.0-18.0 [facility] Comment on above: Performed By: #### C MP, TSH, HSTROPN #### [facility] [address] [place] [address] Dr. Christos Fallon Urea nitrogen/Creatinine [Mass ratio] 12.0 mg/mg Normal [facility] Comment on above: Performed By: #### C MP, TSH, HSTROPN #### [facility] [address] [place] [address] Dr. Christos Fallon PROTIMEon 09-02-2022 INR Coag (PPP) [Relative time] {INR} Normal [facility] Comment on above: Performed By: #### C MP, TSH, HSTROPN #### [facility] [address] [place] [address] Dr. Christos Fallon INR GUIDELINES SEE BELOW Normal [facility] Comment on above: Result Comment: GUALBERTO RED INR: 2.0 - 3.0 CONDITIONS NOT LISTED BELOW 2.5 - 3.5 FOR PROSTHETIC HEART VALVE REPLACEMENT 2.5 - 3.5 RECURRENT THROMBOSIS Performed By: #### C MP, TSH, HSTROPN #### [facility] [address] [place] [address] Dr. Christos Fallon PT Coag (PPP) [Time] 9.7 s Normal 9.0-11.6 [facility] Comment on above: Performed By: #### C MP, TSH, HSTROPN #### [facility] [address] [place] [address] Dr. Christos Fallon PTTon 09-02-2022 aPTT Coag (Bld) [Time] 25.9 s Normal 22.3-36.2 [facility] Comment on above: Performed By: #### C MP, TSH, HSTROPN #### [facility] [address] [place] [address] Dr. Christos Fallon TROPONIN, HIGH SENSITIVITYon 09-02-2022 HSTROP <4.0 Normal 4.0-51.3 [facility] Comment on above: Result Comment: CUT- OFF POINTS HAVE BEEN ESTABLISHED BASED ON THE FOURTH UNIVERSAL DEFINITIONS OF MYOCARDIAL INFARCTION. THE UPPER REFERENCE LIMIT (URL) OF TROPONIN, DEFINED THE 99TH PERCENTILE OF cTnI DISTRIBUTION IN A REFERENCE POPULATION, HAS BEEN CONFIRMED THE DECISION THRESHOLD FOR IN DIAGNOSIS. Performed By: #### C MP, TSH, HSTROPN #### [facility] [address] [place] [address] Dr. Christos Fallon TSHon 09-02-2022 TSH 0.813 uIU/mL Normal 0.358-3.740 [facility] Comment on above: Performed By: #### C MP, TSH, HSTROPN #### [facility] [address] [address] [address] Christos Fallon XR CHEST 1 Von [...] by: LEEANNE MON Date: 2022-09-02 15:09 [facility] KAILA VASQUEZ Emily ([id number]) 1980 F Date Time Provider Department 08/24/22 2:00 PM JANELL SY During your visit today, we recorded the following information about you: Pulse Blood pressure Weight Height 88/minute 112/73 112.9 kg 1.626 m Janell Sy MD 08/24/2022 2:17 PM Signed [facility] [place] SECTION OF REGIONAL CARDIOLOGY OUTPATIENT VISIT DATE [...] Cardiac work-up includes: Echocardiogram on 05/19/2020 at [facility] showed normal ejection fraction. No valvular heart [...] ECG COMPLETE 4. Obesity, morbid, BMI 40.0-49.9 ([facility]) E66.01 ECG COMPLETE 5. SVT (supraventricular tachycardia) ([facility]) I47.1 6. Chronic fatigue R53.82 7. Vitamin [...] apnea) Palpitatio (more content not included)... Normal [facility] ECG COMPLETEon 08-24-2022 ECG COMPLETE Ventricular Rate : 8 4 BPM Atrial Rate : 84 BPM P-R Interval : 166 ms QRS Duration : 92 ms Q-T Interval : 358 ms QTC Calculation(Bazett) : 423 ms Calculated P Drummonds : 60 degrees Calculated R Drummonds : 45 degrees Calculated T Drummonds : 45 degrees NORMAL SINUS RHYTHM INCREASED R/S RATIO IN V1, CONSIDER EARLY TRANSITION OR POSTERIOR INFARCT ABNORMAL ECG Confirmed by MEERA BOYD M.D. ([id number]) on 08/28/2022 3:03:10 PM NAME : KAILA VASQUEZ PID : [id number] : 1980 Gender : Female Race : ORD : [id number] Procedure Date : Aug 24 2022 13:56:02 Edit Date : Aug 28 2022 15:03:10 Diagnosis: NORMAL SINUS RHYTHM INCREASED R/S RATIO IN V1, CONSIDER EARLY TRANSITION OR POSTERIOR INFARCT ABNORMAL ECG Confirmed by MEERA BOYD M.D. ([id number]) on 08/28/2022 3:03:10 PM Test Reason : Location : 145 : ANTOINEARD Overread By : MEERA BOYD M.D. Edited By : MEERA BOYD M.D. Referred By : JANELL SY Acquired by : Jose browning [facility] CNTHERAPYon 08-12-2022 CNTHERAPY OT[facility]PT[facility] KAILA VASQUEZ ([id number]) 1980 F Date Time Provider Department 08/12/22 2:45 PM [facility] Date Time Provider Department Center 08/12/2022 2:45 PM [id number], KARA [facility] Reason for Visit: Physical Therapy [...] % (flush) 10 mL (BD POSIFLUSH) Normal [facility] CNTHERAPYon 08-05-2022 CNTHERAPY OT/PT/Speech Visit ([facility]) KAILA VASQUEZ ([id number]) 1980 F Date Time Provider Department 08/05/22 9:15 AM [facility] Date Time Provider Department Center 08/05/2022 9:15 AM [id number], KARA [facility] Reason for Visit: PT Eval [747] [...] % (flush) 10 mL (BD POSIFLUSH) Normal [facility] Covid-19 PCR (CVDTB)on 07-09 SARS-CoV-2 (COVID-19) RNA LEROY+probe Ql (Unsp spec) Not detected Normal NOT DETECTED [facility] Comment on above: Result Comment: [...] for this test is supported by the [place] of Health and Human Service's declaration that [...] used). Performed By: #### C VDAGA #### [facility] [address] [place] [address] Dr. Christos Fallon 25(OH)D3 [facility] 2021 25-hydroxyvitamin D3 [Mass/Vol] 15.8 ng/mL Low 31.0-80.0 [facility] Comment on above: Order Comment: Bryan hernández Type: BLOOD SPECIMENOrdering Facility: [facility] Address: [address] [place] [address] Result Comment: Clas sification of 25 OH Vitamin D status: Deficiency/Insufficiency: < or = 30 ng/ml. Sufficiency/Optimal Levels: 31-80 ng/mL Toxicity: > 100 ng/mL. Test performed by chemiluminescent immunoassay. Performed By: #### 1 989-3 ####[facility] LABCLIA [id number] [place] [address] [place] ESEQUIEL BY IFA WITH REFLEXon ESEQUIEL PATTERN Nuclear fine speckled Normal Cl [facility] Comment on above: Order Comment: Bryan hernández Type: BLOOD SPECIMENOrdering Facility: [facility] Address: [address] [place] [address] Performed By: #### 2 9374-6, 10884-2, 04018-8, 57761-8, 15463-7, ANAIFR, 18563-6, 75355-4, 79487-1, 97923-2 ####[facility] LABIA [id number] [place] [address] [place] ESEQUIEL TITER 1:160 Normal [facility] Comment on above: Order Comment: Speci men Type: BLOOD SPECIMENOrdering Facility: [facility] Address: [address] [place] [address] Performed By: #### 2 9374-6, 61884-5, 44699-9, 11455-6, 86177-0, ANAIFR, 28789-7, 08358-5, 29124-0, 87795-5 ####[facility] [id number] [place] [address] [place] Nuclear Ab IF (S) [Titer] Positive Abnormal Negative [facility] Comment on above: Order Comment: Speci men Type: BLOOD SPECIMENOrdering Facility: [facility] Address: [address] [place] [address] Result Comment: Anti -nuclear antibody test is used as an aid in diagnosis of systemic autoimmune diseases. Where positive and clinically warranted, follow-up using disease-specific testing is recommended. Low positive titers are not uncommon with advanced age, certain chronic infections, and malignancies among others. Test methodology: Indirect fluorescence immunoassay (IFA) using HEp-2 cells. Performed By: #### 2 9374-6, 73568-7, 93950-8, 96398-1, 83269-3, ANAIFR, 71981-2, 73939-7, 78402-5, 04620-9 ####[facility] LABIA [id number] [place] [id number] [place] Basic metabolic 2000 panelon 07-07-2022 Anion gap [Moles/Vol] 13 mmol/L Normal 9-18 [facility] Comment on above: Order Comment: Speci men Type: BLOOD SPECIMENOrdering Facility: [facility] Address: [address] [address] Performed By: #### 2 4321-2 ####[facility] LABCLIA [id number] [place] [address] [place] Calcium [Mass/Vol] 9.3 mg/dL Normal 8.5-10.2 [facility] Comment on above: Order Comment: Speci men Type: BLOOD SPECIMENOrdering Facility: [facility] Address: [address] [address] Performed By: #### 2 4321-2 ####[facility] LABCLIA [id number] [place] [address] [place] Chloride [Moles/Vol] 102 mmol/L Normal 97-105 [facility] Comment on above: Order Comment: Speci men Type: BLOOD SPECIMENOrdering Facility: [facility] Address: [address] [address] Performed By: #### 2 4321-2 ####[facility] LABCLIA [id number] [place] [address] [place] CO2 [Moles/Vol] 23 mmol/L Normal 22-30 [facility] Comment on above: Order Comment: Speci men Type: BLOOD SPECIMENOrdering Facility: [facility] Address: [address] [address] Performed By: #### 2 4321-2 ####[facility] LABCLIA [id number] [place] [address] [place] Creatinine [Mass/Vol] 0.72 mg/dL Normal 0.58-0.96 [facility] Comment on above: Order Comment: Speci men Type: BLOOD SPECIMENOrdering Facility: [facility] Address: [address] [address] Performed By: #### 2 4321-2 ####[facility] LABCLIA [id number] [place] [address] [place] ESTIMATED GLOMERULAR FILTRATION RATE 109 mL/min/1.73m??? Normal >=60 [facility] Comment on above: Order Comment: Bryan hernández Type: BLOOD SPECIMENOrdering Facility: [facility] Address: [address] [place] [address] Result Comment: Dina mated Glomerular Filtration Rate [...] By: #### 2 4321-2 ####[facility] LABCLIA [id number] [place] [address] [place] Glucose [Mass/Vol] 98 mg/dL Normal 74-99 [facility] Comment on above: Order Comment: Bryan hernández Type: BLOOD SPECIMENOrdering Facility: [facility] Address: [address] [place] [address] Result Comment: The [place] Diabetes Association (ADA) provides guidance for cutoff [...] Standards of Medical Care in Diabetes 2016, [place] [employer]. Diabetes Care. 2016.39(Suppl 1). Performed By: #### 2 4321-2 ####[facility] LABCLIA [id number] [place] [address] [place] Potassium [Moles/Vol] 4.1 mmol/L Normal 3.7-5.1 [facility] Comment on above: Order Comment: Speci men Type: BLOOD SPECIMENOrdering Facility: [facility] Address: [address] [address] Performed By: #### 2 4321-2 ####[facility] LABCLIA [id number] [place] [address] [place] Sodium [Moles/Vol] 138 mmol/L Normal 136-144 [facility] Comment on above: Order Comment: Speci men Type: BLOOD SPECIMENOrdering Facility: [facility] Address: [address] [address] Performed By: #### 2 4321-2 ####[facility] LABCLIA [id number] [place] [address] [place] Urea nitrogen [Mass/Vol] 8 mg/dL Normal 7-21 [facility] Comment on above: Order Comment: Speci men Type: BLOOD SPECIMENOrdering Facility: [facility] Address: [address] [address] Performed By: #### 2 4321-2 ####[facility] LABCLIA [id number] [place] [address] [place] Anion gap [Moles/Vol] 13 mmol/L 9 - 18 mmol/L [facility] Calcium [Mass/Vol] 9.3 mg/dL 8.5 - 10. 2 mg/dL [facility] Chloride [Moles/Vol] 102 mmol/L 97 - 10 5 mmol/L [facility] CO2 [Moles/Vol] 23 mmol/L 22 - 30 mmol/L [facility] Creatinine [Mass/Vol] 0.72 mg/dL 0.58 - 0.96 mg/dL [facility] Estimated Glomerular Filtration Rate 109 mL/min/1.73m >=60 mL/min/1.73m [facility] Glucose [Mass/Vol] 98 mg/dL 74 - 99 mg/dL [facility] Potassium [Moles/Vol] 4.1 mmol/L 3.7 - 5.1 mmol/L [facility] Sodium [Moles/Vol] 138 mmol/L 136 - 144 mmol/L [facility] Urea nitrogen [Mass/Vol] 8 mg/dL 7 - 21 mg/dL [facility] CBC W Auto Differential pane l (Bld)on 07-07-2022 Basophils (Bld) [#/Vol] 0.04 10*3/uL Normal <0.11 [facility] Comment on above: Order Comment: Speci men Type: BLOOD SPECIMENOrdering Facility: [facility] Address: [address] [address] Performed By: #### 5 7021-8 ####[facility] LABCLIA [id number] [place] [address] [place] Basophils/100 WBC (Bld) 0.5 % Normal [facility] Comment on above: Order Comment: Speci men Type: BLOOD SPECIMENOrdering Facility: [facility] Address: [address] [place] [address] Performed By: #### 5 7021-8 ####[facility] LABCLIA [id number] [place] [address] [place] Differential cell count method Nom (Bld) Auto Normal [facility] Comment on above: Order Comment: Speci men Type: BLOOD SPECIMENOrdering Facility: [facility] Address: [address] [place] [address] Performed By: #### 5 7021-8 ####[facility] LABCLIA [id number] [place] [address] [place] Eosinophils (Bld) [#/Vol] 0.29 10*3/uL Normal <0.46 [facility] Comment on above: Order Comment: Speci men Type: BLOOD SPECIMENOrdering Facility: [facility] Address: [address] [place] [address] Performed By: #### 5 7021-8 ####[facility] LABCLIA [id number] [place] [address] [place] Eosinophils/100 WBC (Bld) 3.9 % Normal [facility] Comment on above: Order Comment: Speci men Type: BLOOD SPECIMENOrdering Facility: [facility] Address: [address] [place] [address] Performed By: #### 5 7021-8 ####[facility] LABCLIA [id number] [place] [address] [place] Erythrocyte distribution width (RBC) [Ratio] 12.1 % Normal 11.5-15.0 [facility] Comment on above: Order Comment: Speci men Type: BLOOD SPECIMENOrdering Facility: [facility] Address: [address] [place] [address] Performed By: #### 5 7021-8 ####[facility] LABIA [id number] [place] [address] [place] Hematocrit (Bld) [Volume fraction] 43.5 % Normal 36.0-46.0 [facility] Comment on above: Order Comment: Speci men Type: BLOOD SPECIMENOrdering Facility: [facility] Address: [address] [place] [address] Performed By: #### 5 7021-8 ####[facility] LABCLIA [id number] [place] [address] [place] Hemoglobin (Bld) [Mass/Vol] 14.9 g/dL Normal 11.5-15.5 [facility] Comment on above: Order Comment: Speci men Type: BLOOD SPECIMENOrdering Facility: [facility] Address: [address] [place] [address] Performed By: #### 5 7021-8 ####[facility] LABCLIA [id number] [place] [address] [place] Immature granulocytes (Bld) [#/Vol] 0.03 10*3/uL Normal <0.10 [facility] Comment on above: Order Comment: Speci men Type: BLOOD SPECIMENOrdering Facility: [facility] Address: [address] [place] [address] Performed By: #### 5 7021-8 ####[facility] LABCLIA [id number] [place] [address] [place] Immature granulocytes/100 WBC (Bld) 0.4 % Normal [facility] Comment on above: Order Comment: Speci men Type: BLOOD SPECIMENOrdering Facility: [facility] Address: [address] [place] [address] Performed By: #### 5 7021-8 ####[facility] LABCLIA [id number] [place] [address] [place] Lymphocytes (Bld) [#/Vol] 1.71 10*3/uL Normal 1.00-4.00 [facility] Comment on above: Order Comment: Speci men Type: BLOOD SPECIMENOrdering Facility: [facility] Address: [address] [place] [address] Performed By: #### 5 7021-8 ####[facility] LABIA [id number] [place] [address] [place] Lymphocytes/100 WBC (Bld) 23.2 % Normal [facility] Comment on above: Order Comment: Speci men Type: BLOOD SPECIMENOrdering Facility: [facility] Address: [address] [place] [address] Performed By: #### 5 7021-8 ####[facility] LABIA [id number] [place] [address] [place] MCH (RBC) [Entitic mass] 34.1 pg High 26.0-34.0 [facility] Comment on above: Order Comment: Speci men Type: BLOOD SPECIMENOrdering Facility: [facility] Address: [address] [address] Performed By: #### 5 7021-8 ####[facility] LABCLIA [id number] [place] [address] [place] MCHC (RBC) [Mass/Vol] 34.3 g/dL Normal 30.5-36.0 [facility] Comment on above: Order Comment: Speci men Type: BLOOD SPECIMENOrdering Facility: [facility] Address: [address] [address] Performed By: #### 5 7021-8 ####[facility] LABCLIA [id number] [place] [address] [place] MCV (RBC) [Entitic vol] 99.5 fL Normal 80.0-100.0 [facility] Comment on above: Order Comment: Speci men Type: BLOOD SPECIMENOrdering Facility: [facility] Address: [address] [address] Performed By: #### 5 7021-8 ####[facility] LABIA [id number] [place] [address] [place] Monocytes (Bld) [#/Vol] 0.57 10*3/uL Normal <0.87 [facility] Comment on above: Order Comment: Speci men Type: BLOOD SPECIMENOrdering Facility: [facility] Address: [address] [address] Performed By: #### 5 7021-8 ####[facility] LABCLIA [id number] [place] [address] [place] Monocytes/100 WBC (Bld) 7.7 % Normal [facility] Comment on above: Order Comment: Speci men Type: BLOOD SPECIMENOrdering Facility: [facility] Address: [address] [address] Performed By: #### 5 7021-8 ####[facility] LABCLIA [id number] [place] [address] [place] Neutrophils (Bld) [#/Vol] 4.73 10*3/uL Normal 1.45-7.50 [facility] Comment on above: Order Comment: Speci men Type: BLOOD SPECIMENOrdering Facility: [facility] Address: [address] [place] [address] Performed By: #### 5 7021-8 ####[facility] LABCLIA [id number] [place] [address] [place] Neutrophils/100 WBC (Bld) 64.3 % Normal [facility] Comment on above: Order Comment: Speci men Type: BLOOD SPECIMENOrdering Facility: [facility] Address: [address] [place] [address] Performed By: #### 5 7021-8 ####[facility] LABIA [id number] [place] [address] [place] Nucleated RBC (Bld) [#/Vol] 10*3/uL Normal <0.01 [facility] Comment on above: Order Comment: Speci men Type: BLOOD SPECIMENOrdering Facility: [facility] Address: [address] [place] [address] Performed By: #### 5 7021-8 ####[facility] LABIA [id number] [place] [address] [place] Nucleated RBC/100 WBC (Bld) [Ratio] 0.0 /100 WBC Normal [facility] Comment on above: Order Comment: Speci men Type: BLOOD SPECIMENOrdering Facility: [facility] Address: [address] [place] [address] Performed By: #### 5 7021-8 ####[facility] LABIA [id number] [place] [address] [place] Platelet mean volume (Bld) [Entitic vol] 9.6 fL Normal 9.0-12.7 [facility] Comment on above: Order Comment: Speci men Type: BLOOD SPECIMENOrdering Facility: [facility] Address: [address] [place] [address] Performed By: #### 5 7021-8 ####[facility] LABCLIA [id number] [place] [address] [place] Platelets (Bld) [#/Vol] 277 10*3/uL Normal 150-400 [facility] Comment on above: Order Comment: Speci men Type: BLOOD SPECIMENOrdering Facility: [facility] Address: [address] [place] [address] Performed By: #### 5 7021-8 ####[facility] LABCLIA [id number] [place] [address] [place] RBC (Bld) [#/Vol] 4.37 10*6/uL Normal 3.90-5.20 [facility] Comment on above: Order Comment: Speci men Type: BLOOD SPECIMENOrdering Facility: [facility] Address: [address] [place] [address] Performed By: #### 5 7021-8 ####[facility] LABCLIA [id number] [place] [address] [place] WBC (Bld) [#/Vol] 7.37 10*3/uL Normal 3.70-11.00 [facility] Comment on above: Order Comment: Speci men Type: BLOOD SPECIMENOrdering Facility: [facility] Address: [address] [place] [address] Performed By: #### 5 7021-8 ####[facility]CLIA [id number] [place] [address] [place] Basophils (Bld) [#/Vol] 0.04 10*3/uL <0.11 k/uL [facility] Basophils/100 WBC (Bld) 0.5 % [facility] Differential cell count method Nom (Bld) Auto [facility] Eosinophils (Bld) [#/Vol] 0.29 10*3/uL <0.46 k/uL [facility] Eosinophils/100 WBC (Bld) 3.9 % [facility] Erythrocyte distribution width (RBC) [Ratio] 12.1 % 11.5 - 15.0 % [facility] Hematocrit (Bld) [Volume fraction] 43.5 % 36.0 - 46.0 % [facility] Hemoglobin (Bld) [Mass/Vol] 14.9 g/dL 11.5 - 15.5 g/dL [facility] Immature granulocytes (Bld) [#/Vol] 0.03 10*3/uL <0.10 k/uL [facility] Immature granulocytes/100 WBC (Bld) 0.4 % [facility] Lymphocytes (Bld) [#/Vol] 1.71 10*3/uL 1.00 - 4.00 k/uL [facility] Lymphocytes/100 WBC (Bld) 23.2 % [facility] MCH (RBC) [Entitic mass] 34.1 pg High 26.0 - 34.0 pg [facility] MCHC (RBC) [Mass/Vol] 34.3 g/dL 30.5 - 36.0 g/dL [facility] MCV (RBC) [Entitic vol] 99.5 fL 80.0 - 100.0 fL [facility] Monocytes (Bld) [#/Vol] 0.57 10*3/uL <0.87 k/uL [facility] Monocytes/100 WBC (Bld) 7.7 % [facility] Neutrophils (Bld) [#/Vol] 4.73 10*3/uL 1.45 - 7.50 k/uL [facility] Neutrophils/100 WBC (Bld) 64.3 % [facility] Nucleated RBC (Bld) [#/Vol] <0.01 k/uL [facility] Nucleated RBC/100 WBC (Bld) [Ratio] 0.0 /100 WBC [facility] Platelet mean volume (Bld) [Entitic vol] 9.6 fL 9.0 - 12.7 fL [facility] Platelets (Bld) [#/Vol] 277 10*3/uL 150 - 400 k/uL [facility] RBC (Bld) [#/Vol] 4.37 10*6/uL 3.90 - 5.2 0 m/uL [facility] WBC (Bld) [#/Vol] 7.37 10*3/uL 3.70 - 11. 00 k/uL [facility] CNOVon 07-07-2022 CNOV Office Visit (NEUSHF ) KAILA VASQUEZ ([id number]) 1980 F Date Time Provider Department 07/07/22 8:00 AM GLENROY SYED During your visit today, we recorded the following information about you: Pulse Blood pressure Weight Height 82/minute 134/88 112 kg 1.626 m Glenroy Syed APRN.CNP 07/07/2022 12:28 PM Signed [facility] General Neurology New Patient Evaluation CHIEF COMPLAINT: [...] over a month. She has seen an machine adjuster leader and was told she was having occular migraine by her field mechanical meter tester. A couple times a month she gets [...] tobacco: Never (more content not included)... Normal [facility] CNPNon 07-07-2022 CNPN Telephone (NEADFV) KAILA VASQUEZ ([id number]) 1980 F Date Time Provider Department 07/07/22 GLENROY SYEDFV During your visit today, we recorded the following information about you: Cinthya Salgado 07/07/2022 8:52 AM Signed Received medical records from [facility]. Uploaded to chart and forwarded for review. Kajal Gillespie RN 07/07/2022 9:14 AM Signed Noted. Provider notified. Allergies As of Date: 07/07/2022 (Not on File) Date Reviewed: 07/07/2022 Reviewed by: Elaine Bolaños Ma - Fully Assessed Reason for Visit: Received Outside Medical Records [[id number]] Prescriptions as of 07/19/2022 - metoprolol tartrate, short acting, (LOPRESSOR) 50 mg tablet metoprolol tartrate 50 mg tablet Facility-Administered Medications as of 07/19/2022 - perflutren lipid microspheres 1.3 mL in NaCl (PF) 0.9% 10 mL injection (DEFINITY) - sodium chloride 0.9 % (flush) 10 mL (BD POSIFLUSH) Problem List As Of Date: 07/07/2022 (None) Encounter Status:Closed by CINTHYA SALGADO on 07/19/22 Normal [facility] Centromere Ab IF Ql (S)on Centromere Ab Qn (S) <0.2 Normal <1.0 [facility] Comment on above: Order Comment: Speci men Type: BLOOD SPECIMENOrdering Facility: [facility] Address: [address] [place] [address] Result Comment: Anti -centromere antibody is used as in aid in diagnosis of systemic sclerosis. Clinical correlation is required. Test Methodology: Multiplex flow immunoassay. Performed By: #### 2 9374-6, 54933-4, 53497-2, 38262-9, 08164-0, ANAIFR, 18326-6, 19884-1, 58201-9, 34271-1 ####[facility] [id number] [address] STATES OF [facility] CENTROMERE AB QUAL Negative Normal Negative [facility] Comment on above: Order Comment: Davidi betty Type: BLOOD SPECIMENOrdering Facility: [facility] Address: [address] [place] [address] Performed By: #### 2 9374-6, 98272-8, 06192-0, 09594-2, 53475-2, ANAIFR, 05173-8, 73389-0, 59959-8, 73168-2 ####[facility] [id number] [place] [address] [place] Chromatin Ab Qnon 07-07-2022 CHROMATIN AB QUAL Negative Normal Negative [facility] Comment on above: Order Comment: Speci men Type: BLOOD SPECIMENOrdering Facility: [facility] Address: [address] [place] [address] Performed By: #### 2 9374-6, 22927-3, 86445-7, 93650-8, 28065-2, ANAIFR, 34507-5, 30454-6, 08667-3, 99445-5 ####[facility] [id number] [place] [address] [place] Chromatin Ab SerPl-aCncon Chromatin Ab Qn <0.2 Normal <1.0 [facility] Comment on above: Order Comment: Speci men Type: BLOOD SPECIMENOrdering Facility: [facility] Address: [address] [place] [address] Result Comment: Test Methodology: Multiplex flow immunoassay. Performed By: #### 2 9374-6, 27624-8, 68600-1, 08400-6, 94685-3, ANAIFR, 22277-1, 45019-8, 36077-2, 10268-5 ####[facility] [id number] [place] [address] [place] KAMRAN Jo1 Ab Ser-aCncon 2021 Radha-1 extractable nuclear Ab Qn (S) <0.2 Normal <1.0 [facility] Comment on above: Order Comment: Speci men Type: BLOOD SPECIMENOrdering Facility: [facility] Address: [address] [place] [address] Performed By: #### 2 9374-6, 90863-3, 33594-8, 80320-0, 54495-1, ANAIFR, 45271-6, 15326-5, 45915-1, 60015-8 ####[facility] [id number] [place] [address] [place] KAMRAN ORACLE FINANCIAL APPLICATION DEVELOPER Ab Ser-aCncon 2021 Ribonucleoprotein extractable nuclear Ab Qn (S) <0.2 Normal <1.0 [facility] Comment on above: Order Comment: Speci men Type: BLOOD SPECIMENOrdering Facility: [facility] Address: [address] [place] [address] Performed By: #### 2 9374-6, 54642-5, 96952-3, 80354-8, 70689-9, ANAIFR, 15070-8, 85519-1, 08028-3, 56777-7 ####[facility] LABCLIA [id number] [address] STATES [place] KAMRAN SM IgG Ser-aCncon 2021 Osborne extractable nuclear IgG Qn (S) <0.2 Normal <1.0 [facility] Comment on above: Order Comment: Speci men Type: BLOOD SPECIMENOrdering Facility: [facility] Address: [address] [place] [address] Performed By: #### 2 9374-6, 42870-8, 45921-8, 37463-5, 11334-3, ANAIFR, 70415-4, 35284-8, 77410-8, 69611-7 ####[facility] [id number] [address] OF [place] KAMRAN SS-A Ab Ser-aCncon 07-07 Sjogrens syndrome-A extractable nuclear Ab Qn (S) 0.3 AI Normal <1.0 [facility] Comment on above: Order Comment: Speci men Type: BLOOD SPECIMENOrdering Facility: [facility] Address: [address] [place] [address] Result Comment: Test Methodology: Multiplex flow immunoassay. Performed By: #### 2 9374-6, 37961-5, 05026-8, 53261-6, 71070-0, ANAIFR, 26498-2, 13085-3, 37678-9, 92602-6 ####[facility] [id number] [address] STATES [place] KAMRAN SS-B Ab Ser-aCncon 07-07 Sjogrens syndrome-B extractable nuclear Ab Qn (S) <0.2 Normal <1.0 [facility] Comment on above: Order Comment: Speci men Type: BLOOD SPECIMENOrdering Facility: [facility] Address: [address] [place] [address] Result Comment: Anti -SSB (anti-La) antibody is used as an aid in diagnosis of a variety of systemic autoimmune diseases, especially for Sjogren's syndrome and systemic lupus erythematosus. Clinical correlation is required. Test Methodology: Multiplex flow immunoassay. Performed By: #### 2 9374-6, 25170-5, 71791-2, 45403-4, 38072-3, ANAIFR, 15940-9, 52948-0, 97323-3, 18003-0 ####[facility] [id number] [place] [address] [place] Radha-1 extractable nuclear Ab Qn (S)on 07-07-2022 RADHA 1 ANTIBODY QUAL Negative Normal Negative [facility] Comment on above: Order Comment: Bryan hernández Type: BLOOD SPECIMENOrdering Facility: [facility] Address: [address] [place] [address] Result Comment: Anti -RADHA-1 antibody is used as an aid in diagnosis of polymyositis and dermatomyositis especially with pulmonary involvement. A negative result cannot rule out polymyositis or dermatomyositis. Clinical correlation is required. Test Methodology: Multiplex flow immunoassay. Performed By: #### 2 9374-6, 17084-8, 61814-6, 94457-9, 00776-6, ANAIFR, 80682-9, 42933-6, 22372-2, 58397-4 ####[facility] LABIA [id number] [address] [address] [place] Ribonucleoprotein extractabl e nuclear Ab Qn (S)on 07-07-2022 ANTI-ORACLE FINANCIAL APPLICATION DEVELOPER QUAL Negative Normal Negative [facility] Comment on above: Order Comment: Bryan hernández Type: BLOOD SPECIMENOrdering Facility: [facility] Address: [address] [place] [address] Performed By: #### 2 9374-6, 79926-3, 93169-6, 37932-4, 69380-3, ANAIFR, 19921-2, 55497-2, 37924-7, 74588-3 ####[facility] [id number] [place] [address] [place] RIBOSOMAL ORACLE FINANCIAL APPLICATION DEVELOPER QUAL Negative Normal Negative [facility] Comment on above: Order Comment: Speci men Type: BLOOD SPECIMENOrdering Facility: [facility] Address: [address] [place] [address] Result Comment: Anti -Ribosomal RNA (Ribosomal P) antibody is used as an aid in diagnosis of systemic autoimmune diseases especially systemic lupus erythematosus and mixed connective tissue disease. Cross-reactivity with Anti-osborne antibody is not uncommon. Clinical correlation is required. Test Methodology: Multiplex flow immunoassay. Performed By: #### 2 9374-6, 39147-2, 88469-5, 60561-7, 31949-5, ANAIFR, 42642-1, 45113-0, 51924-9, 17946-7 ####[facility] [id number] [place] [address] [place] SCL-70 extractable nuclear I gG IA Qn (S)on 07-07-2022 SCLERODERMA AB QUAL Negative Normal Negative [facility] Comment on above: Order Comment: Speci betty Type: BLOOD SPECIMENOrdering Facility: [facility] Address: [address] [place] [address] Performed By: #### 2 9374-6, 58025-5, 48907-6, 60097-7, 15666-7, ANAIFR, 90478-4, 83757-3, 23537-5, 12202-8 ####[facility] [id number] [place] [address] [place] SCLERODERMA IGG AB <0.2 Normal <1.0 [facility] Comment on above: Order Comment: Davidi betty Type: BLOOD SPECIMENOrdering Facility: [facility] Address: [address] [place] [address] Result Comment: Scl- 70/Scleroderma antibody test is used as an aid in diagnosis of systemic sclerosis especially the diffuse cutaneous form. A negative result cannot rule out systemic sclerosis. The final interpretation should consider clinical picture and other test results such as anti-centromere antibody. Test Methodology: Multiplex flow immunoassay. Performed By: #### 2 9374-6, 28528-9, 72622-4, 25379-7, 57837-7, ANAIFR, 69204-5, 03453-9, 51193-3, 31285-5 ####[facility] LABCLIA [id number] [place] [address] [place] Sjogrens syndrome-A extracta ble nuclear Ab Qn (S)on 07-07-2022 SSA ANTIBODY QUAL Negative Normal Negative [facility] Comment on above: Order Comment: Speci men Type: BLOOD SPECIMENOrdering Facility: [facility] Address: [address] [place] [address] Performed By: #### 2 9374-6, 83590-6, 78017-6, 25384-4, 12321-8, ANAIFR, 14564-9, 71263-3, 67870-1, 62578-5 ####[facility] [id number] [place] [address] [place] Sjogrens syndrome-B extracta ble nuclear Ab Qn (S)on 07-07-2022 SSB ANTIBODY QUAL Negative Normal Negative [facility] Comment on above: Order Comment: Speci men Type: BLOOD SPECIMENOrdering Facility: [facility] Address: [address] [address] Performed By: #### 2 9374-6, 93677-0, 05250-3, 84979-1, 24628-3, ANAIFR, 82063-7, 05467-1, 75343-0, 29265-5 ####[facility] LABCLIA [id number] [place] [address] [place] Osborne extractable nuclear Ig G Qn (S)on 07-07-2022 SM ANTIBODY QUAL Negative Normal Negative [facility] Comment on above: Order Comment: Speckyle hernández Type: BLOOD SPECIMENOrdering Facility: [facility] Address: [address] [place] [address] Result Comment: Anti -Sm (Osborne) antibody is used as an aid in diagnosis of systemic lupus erythematosus and its presence is associated with renal disease. A negative result cannot rule out systemic lupus erythematosus. Clinical correlation is required. Test Methodology: Multiplex flow immunoassay. Performed By: #### 2 9374-6, 94579-2, 68942-0, 12369-4, 80028-7, ANAIFR, 25199-8, 32951-0, 28365-1, 55507-4 ####[facility] LABCLIA [id number] [address] [place] TSH BLDon 07-07-2022 TSH Qn 0.824 m[IU]/L 0.270 - 4.200 mIU/L [facility] TSH SerPl-aCncon 07-07-2022 TSH Qn 0.824 m[IU]/L Normal 0.270-4.200 [facility] Comment on above: Order Comment: Speci betty Type: BLOOD SPECIMENOrdering Facility: [facility] Address: [address] [place] [address] Result Comment: If t he patient is , TSH reference range varies by gestational period: First Trimester (weeks 9-12): 0.180-2.990 mIU/L Second Trimester: 0.110-3.980 mIU/L Third Trimester: 0.480-4.710 mIU/L Eliezer Bangura et al. A Practical Approach for the Verifications and Determination of Site- and Trimester-Specific Reference Intervals for Thyroid Function tests in . Thyroid, 2019:29:3:412-420. Rob E, et al. 2017 Guidelines of the [place] Thy[employer] for the Diagnosis and Management of Thyroid Disease during and the . Thyroid, 2017:27:3:315-389. Performed By: #### 3 016-3, 2132-9 ####[facility] LABCLIA [id number] [place] [address] [place] VITAMIN B12 BLOODon 07-07-20 22 Cobalamin (Vitamin B12) [Mass/Vol] 618 pg/mL 232 - 1,245 pg/mL [facility] Vit B12 SerPl-mCncon 022 Cobalamin (Vitamin B12) [Mass/Vol] 618 pg/mL Normal 232-1245 [facility] Comment on above: Order Comment: Speci men Type: BLOOD SPECIMENOrdering Facility: [facility] Address: [address] [place] [address] Performed By: #### 3 016-3, 2132-9 ####[facility] LABCLIA [id number] [address] dsDNA Ab Ser IA-aCncon 07-07 DNA double strand Ab IA Qn (S) <12 Normal <30 [facility] Comment on above: Order Comment: Speci men Type: BLOOD SPECIMENOrdering Facility: [facility] Address: [address] [place] [address] Result Comment: Nega tive for ds DNA Antibodies. <30 IU/mL Negative 30-74 IU/mL Equivocal >74 IU/mL Positive Performed By: #### 2 9374-6, 79578-3, 06226-3, 77989-4, 72626-2, ANAIFR, 63719-7, 05672-2, 57123-9, 13782-7 ####[facility] LABCLIA [id number] [address] OF [place] HLA B 27on 04-26-2022 HLA-B27 Negative Normal [facility] Comment on above: Result Comment: HLA- B*27 Negative B27 allele interpretation for all loci based on IMGT/HLA database version 3.44 This test was developed and its performance characteristics determined by [facility]. It has not been cleared or approved by the Food and Drug Administration. [facility] Lab CLIA ID Number [id number] . This test was performed using PCR (Polymerase Chain Reaction)/SSOP (Sequence Specific Oligonucleotide Probes) technique. SBT (Sequence Based Typing) and/or SSP (Sequence Specific Primers) may be used as supplemental methods when necessary. Please contact [facility] Customer Service at if you have any questions. . Director of HLA Laboratory Dr Abdiaziz Shook, PhD Performed By: #### C VDAGA #### [facility] [address] [place] [address] Dr. Christos Fallon 25-HYDROXY VIT D (D2+D3 FRA ) LC/MS-MSon 04-23-2022 25-Hydroxy, Vitamin D 26 ng/mL Critically low [facility] Comment on above: Result Comment: Refe rence Range: All Ages: Target levels 30 - 100 Performed By: #### C MP, TSH, HSTROPN #### [facility] [address] [place] [address] Dr. Christos Fallon 25-Hydroxy, Vitamin D-2 <1.0 Normal [facility] Comment on above: Result Comment: This test was developed and its performance characteristics determined by [facility]. It has not been cleared or approved by the Food and Drug Administration. Performed By: #### C MP, TSH, HSTROPN #### [facility] [address] [place] [address] Dr. Christos Fallon 25-Hydroxy, Vitamin D-3 26 ng/mL Normal [facility] Comment on above: Result Comment: This test was developed and its performance characteristics determined by [facility]. It has not been cleared or approved by the Food and Drug Administration. Performed By: #### C MP, TSH, HSTROPN #### [facility] [address] [place] [address] Dr. Christos Fallon REVERSE T3on 04-20-2022 Reverse T3, Serum 11.2 ng/dL Normal 9.2-24.1 [facility] Comment on above: Result Comment: This test was developed and its performance characteristics determined by [facility]. It has not been cleared or approved by the Food and Drug Administration. Performed By: #### C VDAGA #### [facility] [address] [place] [address] Dr. Christos Fallon THYROID ANTIBODIESon 022 Thyroglobulin Antibody <1.0 Normal 0.0-0.9 [facility] Comment on above: Result Comment: Thyr oglobulin Antibody measured by [email or web address] Methodology Performed By: #### C VDAGA #### [facility] [address] [place] [address] Dr. Christos Fallon Thyroid Peroxidase (TPO) Ab 11 IU/mL Normal 0-34 [facility] Comment on above: Performed By: #### C VDAGA #### [facility] [address] [address] [address] Christos Fallon ANTISTREPTOLYSIN O AB (ASO)o n 04-16-2022 Antistreptolysin O Ab 21.8 IU/mL Normal 0.0-200.0 [facility] Comment on above: Performed By: #### C MP, TSH, HSTROPN #### [facility] [address] [place] [address] Dr. Christos Fallon T3, TOTAL (TRIIODOTHYRONINE) on 04-16-2022 T3, TOTAL 115 ng/dL Normal 71-180 [facility] Comment on above: Performed By: #### C MP, TSH, HSTROPN #### [facility] [address] [place] [address] Dr. Christos Fallon FREE T3on 04-14-2022 FREE T3 2.46 pg/mlL Normal 2.18-3.98 [facility] Comment on above: Performed By: #### C MP, TSH, HSTROPN #### [facility] [address] [place] [address] Dr. Christos Fallon FREE T4on 04-14-2022 Free T4 [Mass/Vol] 0.88 ng/dL Normal 0.76-1.46 [facility] Comment on above: Performed By: #### C VDAGA #### [facility] [address] [place] [address] Dr. Christos Fallon TSHon 04-14-2022 TSH 1.027 uIU/mL Normal 0.358-3.740 [facility] Comment on above: Performed By: #### C MP, TSH, HSTROPN #### [facility] [address] [place] [address] Dr. Christos Fallon CBC AUTO DIFFon 03-22-2022 BASO # 0.1 103/ul Normal 0.0-0.1 [facility] Comment on above: Performed By: #### C MP, TSH, HSTROPN #### [facility] [address] [place] [address] Dr. Christos Fallon Basophils/100 WBC (Bld) 0.7 % Normal 0.2-2.0 [facility] Comment on above: Performed By: #### C MP, TSH, HSTROPN #### [facility] [address] [place] [address] Dr. Christos Fallon EO # 0.3 103/ul Normal 0.0-0.7 [facility] Comment on above: Performed By: #### C MP, TSH, HSTROPN #### [facility] [address] [place] [address] Dr. Christos Fallon Eosinophils/100 WBC (Bld) 3.4 % Normal 0.9-7.0 [facility] Comment on above: Performed By: #### C MP, TSH, HSTROPN #### [facility] [address] [place] [address] Dr. Christos Fallon Erythrocyte distribution width (RBC) [Ratio] 12.5 % Normal 11.0-15.0 [facility] Comment on above: Performed By: #### C MP, TSH, HSTROPN #### [facility] [address] [place] [address] Dr. Christos Fallon Hematocrit (Bld) [Volume fraction] 41.3 % Normal 36.0-48.0 [facility] Comment on above: Performed By: #### C MP, TSH, HSTROPN #### [facility] [address] [place] [address] Dr. Christos Fallon Hemoglobin (Bld) [Mass/Vol] 14.2 g/dL Normal 12.0-16.0 [facility] Comment on above: Performed By: #### C MP, TSH, HSTROPN #### [facility] [address] [place] [address] Dr. Christos Fallon IG # 0.03 10e3/ul Normal 0.00-0.03 [facility] Comment on above: Performed By: #### C MP, TSH, HSTROPN #### [facility] [address] [place] [address] Dr. Christos Fallon IG % 0.4 % Normal 0.0-0.5 [facility] Comment on above: Performed By: #### C MP, TSH, HSTROPN #### [facility] [address] [place] [address] Dr. Christos Fallon LYMPH # 2.3 103/ul Normal 1.2-3.8 [facility] Comment on above: Performed By: #### C MP, TSH, HSTROPN #### [facility] [address] [place] [address] Dr. Christos Fallon Lymphocytes/100 WBC (Bld) 31.3 % Normal 20.5-60.0 [facility] Comment on above: Performed By: #### C MP, TSH, HSTROPN #### [facility] [address] [place] [address] Dr. Christos Fallon MANUAL DIFF REQ NO Normal [facility] Comment on above: Performed By: #### C MP, TSH, HSTROPN #### [facility] [address] [place] [address] Dr. Christos Fallon MCH (RBC) [Entitic mass] 34.8 pg Critically high 26.7-34.0 [facility] Comment on above: Performed By: #### C MP, TSH, HSTROPN #### [facility] [address] [place] [address] Dr. Christos Fallon MCHC (RBC) [Mass/Vol] 34.4 g/dL Normal 29.9-35.2 [facility] Comment on above: Performed By: #### C MP, TSH, HSTROPN #### [facility] [address] [place] [address] Dr. Christos Fallon MCV (RBC) [Entitic vol] 101.2 fL Critically high 81.0-99.0 [facility] Comment on above: Performed By: #### C MP, TSH, HSTROPN #### [facility] [address] [place] [address] Dr. Christos Fallon MONO # 0.9 103/ul Critically high 0.3-0.8 [facility] Comment on above: Performed By: #### C MP, TSH, HSTROPN #### [facility] [address] [place] [address] Dr. Christos Fallon Monocytes/100 WBC (Bld) 12.0 % Normal 1.7-12.0 [facility] Comment on above: Performed By: #### C MP, TSH, HSTROPN #### [facility] [address] [place] [address] Dr. Christos Fallno NEUT # 3.9 103/ul Normal 1.4-6.5 [facility] Comment on above: Performed By: #### C MP, TSH, HSTROPN #### [facility] [address] [place] [address] Dr. Christos Fallon Neutrophils/100 WBC (Bld) 52.2 % Normal 43.0-75.0 [facility] Comment on above: Performed By: #### C MP, TSH, HSTROPN #### [facility] [address] [place] [address] Dr. Christos Fallon Platelet mean volume (Bld) [Entitic vol] 9.7 fL Normal 9.5-13.5 [facility] Comment on above: Performed By: #### C MP, TSH, HSTROPN #### [facility] [address] [place] [address] Dr. Christos Fallon PLT 296 103/ul Normal 150-450 [facility] Comment on above: Performed By: #### C MP, TSH, HSTROPN #### [facility] [address] [place] [address] Dr. Christos Fallon RBC 4.08 106/ul Critically low 4.20-5.40 [facility] Comment on above: Performed By: #### C MP, TSH, HSTROPN #### [facility] [address] [place] [address] Dr. Christos Fallon WBC 7.4 103/ul Normal 4.0-11.0 [facility] Comment on above: Performed By: #### C MP, TSH, HSTROPN #### [facility] [address] [place] [address] HEAD WO CONon [...] PAL WETZEL Date: 2022-03-22 17:41 Normal [facility] ER URINE PROFILEon 2 Bilirubin Ql (U) Negative Normal NEGATIVE [facility] Comment on above: Performed By: #### C VDAGA #### [facility] [address] [place] [address] Dr. Christos Fallon Clarity (U) CLOUDY Abnormal CLEAR [facility] Comment on above: Performed By: #### C VDAGA #### [facility] [address] [place] [address] Dr. Christos Fallon Color (U) LT. YELLOW Normal YELLOW [facility] Comment on above: Performed By: #### C VDAGA #### [facility] [address] [place] [address] Dr. Christos VERGARA A micrscopic examination will be performed if indicated. Normal [facility] Comment on above: Performed By: #### C VDAGA #### [facility] [address] [place] [address] Dr. Christos Fallon Glucose Ql (U) Negative Normal NEGATIVE [facility] Comment on above: Performed By: #### C VDAGA #### [facility] [address] [place] [address] Dr. Christos Fallon Hemoglobin Ql (U) Negative Normal NEGATIVE [facility] Comment on above: Performed By: #### C VDAGA #### [facility] [address] [place] [address] Dr. Christos Fallon Ketones Ql (U) Negative Normal NEGATIVE [facility] Comment on above: Performed By: #### C VDAGA #### [facility] [address] [place] [address] Dr. Christos Fallon LEUKOCYTES Negative Normal NEGATIVE [facility] Comment on above: Performed By: #### C VDAGA #### [facility] [address] [place] [address] Dr. Christos Fallon Nitrite Ql (U) Negative Normal NEGATIVE [facility] Comment on above: Performed By: #### C VDAGA #### [facility] [address] [place] [address] Dr. Christos Fallon pH (U) 6.0 [pH] Normal 5-9 [facility] Comment on above: Performed By: #### C VDAGA #### [facility] [address] [place] [address] Dr. Christos Fallon SPEC GRAVITY 1.010 Normal 1.005-<=1.02 5 [facility] Comment on above: Performed By: #### C VDAGA #### [facility] [address] [place] [address] Dr. Christos Fallon UA PROTEIN Negative Normal NEGATIVE/ TRACE [facility] Comment on above: Performed By: #### C VDAGA #### [facility] [address] [place] [address] Dr. Christos Fallon UR MICRO IND NOT INDICATED Normal [facility] Comment on above: Performed By: #### C VDAGA #### [facility] [address] [address] [address] Christos Fallon Urobilinogen Qn (U) 0.2 {Peyman'U}/dL Normal 0.2 - 1. 0 [facility] Comment on above: Performed By: #### C VDAGA #### [facility] [address] [place] [address] Dr. Christos Fallon PROF 14(COMP METB)on 022 Albumin [Mass/Vol] 3.6 g/dL Normal 3.4-5.0 [facility] Comment on above: Performed By: #### C MP, HSTROPN, TSH #### [facility] [address] [place] [address] Dr. Christos Fallon Albumin/Globulin [Mass ratio] 0.9 {ratio} Normal [facility] Comment on above: Performed By: #### C MP, HSTROPN, TSH #### [facility] [address] [place] [address] Dr. Christos Fallon ALP [Catalytic activity/Vol] 83 U/L Normal 46-116 [facility] Comment on above: Performed By: #### C MP, HSTROPN, TSH #### [facility] [address] [place] [address] Dr. Christos Fallon ALT [Catalytic activity/Vol] 32 U/L Normal 14-59 [facility] Comment on above: Performed By: #### C MP, HSTROPN, TSH #### [facility] [address] [place] [address] Dr. Christos Fallon Anion gap [Moles/Vol] 15.4 mmol/L Normal [facility] Comment on above: Performed By: #### C MP, HSTROPN, TSH #### [facility] [address] [place] [address] Dr. Christos Fallon AST [Catalytic activity/Vol] 15 U/L Normal 15-37 [facility] Comment on above: Performed By: #### C MP, HSTROPN, TSH #### [facility] [address] [address] [address] Christos Fallon Bilirubin [Mass/Vol] 0.3 mg/dL Normal 0.2-1.0 [facility] Comment on above: Performed By: #### C MP, HSTROPN, TSH #### [facility] [address] [place] [address] Dr. Christos Fallon Calcium [Mass/Vol] 8.9 mg/dL Normal 8.5-10.1 [facility] Comment on above: Performed By: #### C MP, HSTROPN, TSH #### [facility] [address] [place] [address] Dr. Christos Fallon Chloride [Moles/Vol] 102 mmol/L Normal 98-107 [facility] Comment on above: Performed By: #### C MP, HSTROPN, TSH #### [facility] [address] [place] [address] Dr. Christos Fallon CO2 [Moles/Vol] 22.7 mmol/L Normal 21.0-32.0 [facility] Comment on above: Performed By: #### C MP, HSTROPN, TSH #### [facility] [address] [place] [address] Dr. Christos Fallon Creatinine [Mass/Vol] 0.97 mg/dL Normal 0.55-1.02 [facility] Comment on above: Performed By: #### C MP, HSTROPN, TSH #### [facility] [address] [place] [address] Dr. Christos Fallon EGFR-AF AFGHAN >60 Normal >=60 [facility] Comment on above: Performed By: #### C MP, HSTROPN, TSH #### [facility] [address] [place] [address] Dr. Christos Fallon EGFR-NON AF AFGHAN >60 Normal >=60 [facility] Comment on above: Performed By: #### C MP, HSTROPN, TSH #### [facility] [address] [place] [address] Dr. Christos Fallon Globulin (S) [Mass/Vol] 3.8 g/dL Normal [facility] Comment on above: Performed By: #### C MP, HSTROPN, TSH #### [facility] [address] [address] [address] Christos Fallon Glucose [Mass/Vol] 104 mg/dL Normal 74-106 [facility] Comment on above: Performed By: #### C MP, HSTROPN, TSH #### [facility] [address] [address] [address] Christos Fallon Potassium [Moles/Vol] 4.1 mmol/L Normal 3.5-5.1 [facility] Comment on above: Performed By: #### C MP, HSTROPN, TSH #### [facility] [address] [place] [address] Dr. Christos Fallon Protein [Mass/Vol] 7.4 g/dL Normal 6.4-8.2 [facility] Comment on above: Performed By: #### C MP, HSTROPN, TSH #### [facility] [address] [place] [address] Dr. Christos Fallon Sodium [Moles/Vol] 136 mmol/L Normal 136-145 [facility] Comment on above: Performed By: #### C MP, HSTROPN, TSH #### [facility] [address] [place] [address] Dr. Christos Fallon Urea nitrogen [Mass/Vol] 17.0 mg/dL Normal 7.0-18.0 [facility] Comment on above: Performed By: #### C MP, HSTROPN, TSH #### [facility] [address] [place] [address] Dr. Christos Fallon Urea nitrogen/Creatinine [Mass ratio] 17.5 mg/mg Normal [facility] Comment on above: Performed By: #### C MP, HSTROPN, TSH #### [facility] [address] [place] [address] Dr. Christos Fallon TROPONIN, HIGH SENSITIVITYon 03-22-2022 HSTROP <4.0 Normal 4.0-51.3 [facility] Comment on above: Result Comment: CUT- OFF POINTS HAVE BEEN ESTABLISHED BASED ON THE FOURTH UNIVERSAL DEFINITIONS OF MYOCARDIAL INFARCTION. THE UPPER REFERENCE LIMIT (URL) OF TROPONIN, DEFINED THE 99TH PERCENTILE OF cTnI DISTRIBUTION IN A REFERENCE POPULATION, HAS BEEN CONFIRMED THE DECISION THRESHOLD FOR IN DIAGNOSIS. Performed By: #### C MP, HSTROPN, TSH #### [facility] [address] [place] [address] Dr. Christos Fallon TSHon 03-22-2022 TSH 0.854 uIU/mL Normal 0.358-3.740 [facility] Comment on above: Performed By: #### C MP, HSTROPN, TSH #### [facility] [address] [place] [address] Dr. Christos Fallon ASYMPTOMATIC COVID-19 ANTIGE Non 03-03-2022 EUA Statement SEE BELOW Normal [facility] Comment on above: Result Comment: This [...] sooner. Performed By: #### C VDAGA #### [facility] [address] [place] [address] Dr. Christos Fallon SARS-CoV-2 (COVID-19) RNA LEROY+probe Ql (Unsp spec) Positive Critically abnormal NEGATIVE [facility] Comment on above: Result Comment: SARS -CoV-2 antigen present; does not rule out coinfection with other pathogens. Performed By: #### C VDAGA #### [facility] [address] [place] [address] Dr. Christos Fallon Covid-19 PCR (CVDTB)on 02-06 SARS-CoV-2 (COVID-19) RNA LEROY+probe Ql (Unsp spec) Detected Critically abnormal NOT DETECTED [facility] Comment on above: Result Comment: This test is not yet approved or cleared by the [place] FDA. When there are no FDA-approved or cleared tests available, and other criteria are met, FDA can make tests available under an emergency access mechanism called an Emergency Use Authorization (EUA). The EUA for this test is supported by the [place] of Health and Human Service's declaration that [...] By: #### C MP, TSH, HSTROPN #### [facility] [address] [place] [address] Dr. Christos Fallon CRPon 11-25-2021 CRP [Mass/Vol] mg/L Normal <=1.0 [facility] Comment on above: Performed By: #### C MP, TSH, HSTROPN #### [facility] [address] [place] [address] Dr. Christos Fallon VIT B12 AND FOLATEon 022 Cobalamin (Vitamin B12) [Mass/Vol] 329.0 pg/mL Normal 239.0-931.0 [facility] Comment on above: Performed By: #### C MP, TSH, HSTROPN #### [facility] [address] [place] [address] Dr. Christos Fallon FOLATE 8.50 ng/mL Normal >=2.76 [facility] Comment on above: Performed By: #### C MP, TSH, HSTROPN #### [facility] [address] [place] [address] Dr. Christos Fallon CBC AUTO DIFFon 11-19-2021 BASO # 0.1 103/ul Normal 0.0-0.1 [facility] Comment on above: Performed By: #### C BC #### [facility] [address] [address] [address] Christos Fallon Basophils/100 WBC (Bld) 0.8 % Normal 0.2-2.0 [facility] Comment on above: Performed By: #### C BC #### [facility] [address] [address] [address] Christos Fallon EO # 0.3 103/ul Normal 0.0-0.7 [facility] Comment on above: Performed By: #### C BC #### [facility] [address] [address] [address] Christos Fallon Eosinophils/100 WBC (Bld) 4.8 % Normal 0.9-7.0 [facility] Comment on above: Performed By: #### C BC #### [facility] [address] [place] [address] Dr. Christos Fallon Erythrocyte distribution width (RBC) [Ratio] 12.2 % Normal 11.0-15.0 [facility] Comment on above: Performed By: #### C BC #### [facility] [address] [place] [address] Dr. Christos Fallon Hematocrit (Bld) [Volume fraction] 41.9 % Normal 36.0-48.0 [facility] Comment on above: Performed By: #### C BC #### [facility] [address] [place] [address] Dr. Christos Fallon Hemoglobin (Bld) [Mass/Vol] 14.2 g/dL Normal 12.0-16.0 [facility] Comment on above: Performed By: #### C BC #### [facility] [address] [place] [address] Dr. Christos Fallon IG # 0.03 10e3/ul Normal 0.00-0.03 [facility] Comment on above: Performed By: #### C BC #### [facility] [address] [place] [address] Dr. Christos Fallon IG % 0.5 % Normal 0.0-0.5 [facility] Comment on above: Performed By: #### C BC #### [facility] [address] [address] [address] Christos Fallon LYMPH # 1.5 103/ul Normal 1.2-3.8 [facility] Comment on above: Performed By: #### C BC #### [facility] [address] [place] [address] Dr. Christos Fallon Lymphocytes/100 WBC (Bld) 24.6 % Normal 20.5-60.0 [facility] Comment on above: Performed By: #### C BC #### [facility] [address] [place] [address] Dr. Christos Fallon MANUAL DIFF REQ NO Normal [facility] Comment on above: Performed By: #### C BC #### [facility] [address] [place] [address] Dr. Christos Fallon MCH (RBC) [Entitic mass] 34.3 pg Critically high 26.7-34.0 [facility] Comment on above: Performed By: #### C BC #### [facility] [address] [place] [address] Dr. Christos Fallon MCHC (RBC) [Mass/Vol] 33.9 g/dL Normal 29.9-35.2 [facility] Comment on above: Performed By: #### C BC #### [facility] [address] [place] [address] Dr. Christos Fallon MCV (RBC) [Entitic vol] 101.2 fL Critically high 81.0-99.0 [facility] Comment on above: Performed By: #### C BC #### [facility] [address] [place] [address] Dr. Christos Fallon MONO # 0.5 103/ul Normal 0.3-0.8 [facility] Comment on above: Performed By: #### C BC #### [facility] [address] [place] [address] Dr. Christos Faloln Monocytes/100 WBC (Bld) 7.2 % Normal 1.7-12.0 [facility] Comment on above: Performed By: #### C BC #### [facility] [address] [address] [address] Christos Fallon NEUT # 3.9 103/ul Normal 1.4-6.5 [facility] Comment on above: Performed By: #### C BC #### [facility] [address] [address] [address] Christos Fallon Neutrophils/100 WBC (Bld) 62.1 % Normal 43.0-75.0 [facility] Comment on above: Performed By: #### C BC #### [facility] [address] [address] [address] Christos Fallon Platelet mean volume (Bld) [Entitic vol] 9.1 fL Critically low 9.5-13.5 [facility] Comment on above: Performed By: #### C BC #### [facility] [address] [place] [address] Dr. Christos Fallon PLT 301 103/ul Normal 150-450 [facility] Comment on above: Performed By: #### C BC #### [facility] [address] [place] [address] Dr. Christos Fallon RBC 4.14 106/ul Critically low 4.20-5.40 [facility] Comment on above: Performed By: #### C BC #### [facility] [address] [place] [address] Dr. Christos Fallon WBC 6.3 103/ul Normal 4.0-11.0 [facility] Comment on above: Performed By: #### C BC #### [facility] [address] [place] [address] Dr. Christos Fallon FREE T3on 11-19-2021 FREE T3 2.72 pg/mlL Critically low 2.77-5.27 [facility] Comment on above: Performed By: #### C MP, TSH, HSTROPN #### [facility] [address] [address] [address] Christos Fallon FREE T4on 11-19-2021 Free T4 [Mass/Vol] 1.09 ng/dL Normal 0.78-2.19 [facility] Comment on above: Performed By: #### C MP, TSH, HSTROPN #### [facility] [address] [address] [address] Christos Fallon GLYCOHEMOGLOBIN A1Con 2021 ADA RECOMMENDATION ADA THERAPEUTIC TARG ET 6.0 - 7.0 ACTION SUGGESTED > 7.0 Normal [facility] Comment on above: Performed By: #### A 1C #### [facility] [address] [address] [address] Christos Fallon Glucose [Mass/Vol] 105 mg/dL Normal [facility] Comment on above: Performed By: #### A 1C #### [facility] [address] [place] [address] Dr. Christos Fallon HbA1c (Bld) [Mass fraction] 5.3 % Normal <=6.0 [facility] Comment on above: Performed By: #### A 1C #### [facility] [address] [place] [address] Dr. Christos Fallon LIPID PROFILEon 11-19-2021 CHOL-HDL RATIO NORM SEE BELOW Normal [facility] Comment on above: Result Comment: 3.3 - 4.4 LOW RISK 4.4 - 7.1 AVERAGE RISK 7.1 - 11.0 MODERATE RISK >11.0 HIGH RISK Performed By: #### C MP, TSH, HSTROPN #### [facility] [address] [place] [address] Dr. Christos Fallon Cholesterol [Mass/Vol] 232 mg/dL Critically high <=200 [facility] Comment on above: Performed By: #### C MP, TSH, HSTROPN #### [facility] [address] [place] [address] Dr. Christos Fallon Cholesterol in HDL [Mass/Vol] 60 mg/dL Normal 40-60 [facility] Comment on above: Performed By: #### C MP, TSH, HSTROPN #### [facility] [address] [place] [address] Dr. Christos Fallon Cholesterol in LDL [Mass/Vol] 134.6 mg/dL Normal [facility] Comment on above: Performed By: #### C MP, TSH, HSTROPN #### [facility] [address] [address] [address] Christos Fallon Cholesterol.total/Cho lesterol in HDL [Mass ratio] 3.9 {ratio} Normal [facility] Comment on above: Performed By: #### C MP, TSH, HSTROPN #### [facility] [address] [address] [address] Christos Fallon HDL NORMAL > or = 60 mg/dl - LO W CARDIOVASCULAR RISK <40 mg/dl - HIGH CARDIOVASCULAR RISK Normal [facility] Comment on above: Performed By: #### C MP, TSH, HSTROPN #### [facility] [address] [address] [address] Christos Fallon LDL CALC NORMAL SEE BELOW Normal [facility] Comment on above: Result Comment: <100 mg/dl OPTIMAL 100 - 129 mg/dl NEAR OR ABOVE OPTIMAL 130 - 159 mg/dl BORDERLINE HIGH 160 - 189 mg/dl HIGH >190 mg/dl VERY HIGH Performed By: #### C MP, TSH, HSTROPN #### [facility] [address] [address] [address] Christos Fallon Triglyceride [Mass/Vol] 187 mg/dL Critically high <=150 [facility] Comment on above: Performed By: #### C MP, TSH, HSTROPN #### [facility] [address] [address] [address] Christos Fallon VLDL CALC 37.4 mg/dL Normal [facility] Comment on above: Performed By: #### C MP, TSH, HSTROPN #### [facility] [address] [address] [address] Christos Fallon PROF 14(COMP METB)on 022 Albumin [Mass/Vol] 3.8 g/dL Normal 3.4-5.0 [facility] Comment on above: Performed By: #### C MP, TSH, HSTROPN #### [facility] [address] [address] [address] Christos Fallon Albumin/Globulin [Mass ratio] 1.1 {ratio} Normal [facility] Comment on above: Performed By: #### C MP, TSH, HSTROPN #### [facility] [address] [place] [address] Dr. Christos Fallon ALP [Catalytic activity/Vol] 77 U/L Normal 46-116 [facility] Comment on above: Performed By: #### C MP, TSH, HSTROPN #### [facility] [address] [place] [address] Dr. Christos Fallon ALT [Catalytic activity/Vol] 34 U/L Normal 14-59 [facility] Comment on above: Performed By: #### C MP, TSH, HSTROPN #### [facility] [address] [place] [address] Dr. Christos Fallon Anion gap [Moles/Vol] 11.5 mmol/L Normal [facility] Comment on above: Performed By: #### C MP, TSH, HSTROPN #### [facility] [address] [place] [address] Dr. Christos Fallon AST [Catalytic activity/Vol] 21 U/L Normal 15-37 [facility] Comment on above: Performed By: #### C MP, TSH, HSTROPN #### [facility] [address] [place] [address] Dr. Christos Fallon Bilirubin [Mass/Vol] 0.7 mg/dL Normal 0.2-1.3 [facility] Comment on above: Performed By: #### C MP, TSH, HSTROPN #### [facility] [address] [place] [address] Dr. Christos Fallon Calcium [Mass/Vol] 8.8 mg/dL Normal 8.5-10.1 [facility] Comment on above: Performed By: #### C MP, TSH, HSTROPN #### [facility] [address] [place] [address] Dr. Christos Fallon Chloride [Moles/Vol] 104 mmol/L Normal 98-107 [facility] Comment on above: Performed By: #### C MP, TSH, HSTROPN #### [facility] [address] [address] [address] Christos Fallon CO2 [Moles/Vol] 28.6 mmol/L Normal 22.0-30.0 [facility] Comment on above: Performed By: #### C MP, TSH, HSTROPN #### [facility] [address] [address] [address] Christos Fallon Creatinine [Mass/Vol] 0.88 mg/dL Normal 0.52-1.04 [facility] Comment on above: Performed By: #### C MP, TSH, HSTROPN #### [facility] [address] [address] [address] Christos Fallon EGFR-AF AFGHAN >60 Normal >=60 [facility] Comment on above: Performed By: #### C MP, TSH, HSTROPN #### [facility] [address] [place] [address] Dr. Christos Fallon EGFR-NON AF AFGHAN >60 Normal >=60 [facility] Comment on above: Performed By: #### C MP, TSH, HSTROPN #### [facility] [address] [address] [address] Christos Fallon Globulin (S) [Mass/Vol] 3.5 g/dL Normal [facility] Comment on above: Performed By: #### C MP, TSH, HSTROPN #### [facility] [address] [address] [address] Christos Fallon Glucose [Mass/Vol] 101 mg/dL Normal 74-106 [facility] Comment on above: Performed By: #### C MP, TSH, HSTROPN #### [facility] [address] [address] [address] Christos Fallon Potassium [Moles/Vol] 4.1 mmol/L Normal 3.4-5.0 [facility] Comment on above: Performed By: #### C MP, TSH, HSTROPN #### [facility] [address] [address] [address] Christos Fallon Protein [Mass/Vol] 7.3 g/dL Normal 6.1-8.2 [facility] Comment on above: Performed By: #### C MP, TSH, HSTROPN #### [facility] [address] [place] [address] Dr. Christos Fallon Sodium [Moles/Vol] 140 mmol/L Normal 137-145 [facility] Comment on above: Performed By: #### C MP, TSH, HSTROPN #### [facility] [address] [place] [address] Dr. Christos Fallon Urea nitrogen [Mass/Vol] 11.0 mg/dL Normal 7.0-18.0 [facility] Comment on above: Performed By: #### C MP, TSH, HSTROPN #### [facility] [address] [place] [address] Dr. Christos Fallon Urea nitrogen/Creatinine [Mass ratio] 12.5 mg/mg Normal [facility] Comment on above: Performed By: #### C MP, TSH, HSTROPN #### [facility] [address] [place] [address] Dr. Christos Fallon TSHon 11-19-2021 TSH 0.774 uIU/mL Normal 0.470-4.680 [facility] Comment on above: Performed By: #### C MP, TSH, HSTROPN #### [facility] [address] [place] [address] Dr. Christos Fallon TSH RANGE SEE BELOW Normal [facility] Comment on above: Result Comment: <0.3 4 UIU/ml HYPERTHYROID 0.34-5.60 UIU/ml EUTHYROID >5.60 UIU/ml HYPOTHYROID Performed By: #### C MP, TSH, HSTROPN #### [facility] [address] [place] [address] Dr. Christos Fallon XR TSPINE 2 VIEWSon [...] TAMIE GUILLERMO Date: 2021-11-19 12:49 Normal [facility] Cardiovascular Lab Reporton 11-17-2021 Cardiovascular Lab Report [facility] Patient Name: Christina, [facility] MR #: [id number] Physician: Jonny Fowler M.D. Department of Service Date: 11/17/2021 Medicine Birthdate: 1980 Division of Room #: CC Cardiology Adult Cardiovascular Services [address] [address] Cardiovascular Laboratory Report PROCEDURE: Implantable loop recorder [...] subcutaneous pocket, into which was deployed a [employer] 3 implantable loop recorder. Via off [...] Fowler M.D. Date Trans: 11/17/2021 12:41 P/mmo [id number] cc: Mert Lama M.D. [address] [place] [address] A [facility] [id number] Normal [facility] Covid-19 PCR (CVDTB)on SARS-CoV-2 (COVID-19) RNA LEROY+probe Ql (Unsp spec) Not detected Normal NOT DETECTED [facility] Comment on above: Result Comment: This test is not yet approved or cleared by the [place] FDA. When there are no FDA-approved or cleared tests available, and other criteria are met, FDA can make tests available under an emergency access mechanism called an Emergency Use Authorization (EUA). The EUA for this test is supported by the [place] [place] of Health and Human Service's (HHS's) declaration [...] By: #### C MP, TSH, HSTROPN #### [facility] [address] [place] [address] Dr. Christos Fallon Covid-19 PCR (CVDTBH)on SARS-CoV-2 (COVID-19) RNA LEROY+probe Ql (Unsp spec) Not detected Normal NOT DETECTED [facility] Comment on above: Result Comment: [...] for this test is supported by the [place] of Health and Human Service's declaration that [...] used). Performed By: #### C [facility] #### [facility] [address] [address] [address] Christos Fallon Cardiovascular Lab Reporton 06-17-2021 Cardiovascular Lab Report [facility]: [id number] Physician: Vishal Rogers MD Department of Service Date: 06/17/2021 Medicine Birthdate: 1980 Division of Room #: Cardiology Adult Cardiovascular Services [address] [place] [address] Cardiovascular Laboratory Report COMPREHENSIVE EP STUDY AND [...] same (more content not included)... Normal [facility] FEMUR LEFT 2 [facility] 1 FEMUR LEFT 2 [facility] Department of Radiology [address] [place] [id number] ======== Patient Name: KAILA VASQUEZ : 1980 Sex: F Age: Race: White Pt. 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 Electronically signed: Gelacio Pfeiffer. Transcribed by: [email or web address], User Resident: TAVON BELCHER Electronically Signed by: GELACIO PFEIFFER @ 01/15/2021 12:03 PM I personally read this/these film(s) with this resident Normal [facility] Comment on above: Order Comment: evalu ate Operative Reporton Operative Report MR#: [id number] [facility] Pt. Name: Kaila Vasquez Room #: 0C Discharge 12/05/2020 Date: Birthdate: 1980 OPERATIVE REPORT DATE OF SURGERY: 12/05/2020 SURGEON: Pamella Brennan M.D. PREOPERATIVE DIAGNOSIS: Left distal femur osteochondroma. POSTOPERATIVE DIAGNOSIS: Left distal femur osteochondroma. PROCEDURE PERFORMED: Left distal femur osteochondroma excision. TALENT ACQUISITION PROGRAM MANAGER: Alaina Edouard M.D. ANESTHESIA: General endotracheal. [...] i (more content not included)... Normal [facility] FEMUR LEFT 2 [facility] 1 FEMUR LEFT 2 [facility] Department of Radiology [address] [place] [id number] ======== Patient Name: KAILA VASQUEZ : [...] 2 VWS ======== FEMUR LEFT 2 S 12/05/2020 10:05 AM CLINICAL INDICATIONS: LEFT DISTAL [...] purposes. Electronically signed: Ching Garcia. Transcribed by: [email or web address], User Resident: Electronically Signed by: CHING GARCIA @ 12/05/2020 11:54 AM Normal [facility] Comment on above: Order Comment: LEFT DISTAL FEMUR OSTEOCHONDROMA EXCISION POC GLUCOSE LABon 12-05-2020 Glucose [Mass/Vol] 108 mg/dL High 70-100 [facility] Comment on above: Performed By: #### 8 [id number] ####[facility] [place] [address], [facility] *MRSA/MSSA DNA NASALon 11-28 *MRSA/MSSA DNA NASAL Clinical Report: (D ) Specimen: NASAL SWAB Collected: 11/28/2020 13:22 Status: Final Last Updated: 2020 13:05 MSSA DNA (Final) Negative MRSA DNA (Final) Negative Normal [facility] Comment on above: Performed By: #### 3 1595 ####[facility] APTTon 11-28-2020 aPTT Coag (Bld) [Time] 29.1 s Normal 25.0-35.0 [facility] Comment on above: Result Comment: ALL [...] THIS PURPOSE. Performed By: #### 5 7307, [address] #### [facility] [address] BASIC METABOLIC PANELon - Calcium [Mass/Vol] 9.5 mg/dL Normal 8.6-10.3 [facility] Comment on above: Performed By: #### 0 0071 #### [facility] [address] [place] [address], [facility] Chloride [Moles/Vol] 104 mmol/L Normal 98-107 [facility] Comment on above: Performed By: #### 0 0071 #### [facility] [address] [place] [address], [facility] CO2 [Moles/Vol] 28 mmol/L Normal 21-31 [facility] Comment on above: Performed By: #### 0 0071 #### [facility] [address] [place] [address], [facility] Creatinine [Mass/Vol] 0.90 mg/dL Normal 0.60-1.20 [facility] Comment on above: Performed By: #### 0 0071 #### [facility] [address] [facility] [address], [facility] GFR/1.73 sq M.predicted among blacks MDRD (S/P/Bld) [Vol rate/Area] mL/min/{1.73_m2} Normal >60 [facility] Comment on above: Performed By: #### 0 0071 #### [facility] [address] [place] [address], [facility] GFR/1.73 sq M.predicted among non-blacks MDRD (S/P/Bld) [Vol rate/Area] mL/min/{1.73_m2} Normal >60 [facility] Comment on above: Performed By: #### 0 0071 #### [facility] [address] [facility] [place] [place] [address], [facility] Glucose [Mass/Vol] 132 mg/dL High 70-100 [facility] Comment on above: Performed By: #### 0 0071 #### [facility] [address] [facility] [place] [place] [address], [facility] Potassium [Moles/Vol] 3.8 mmol/L Normal 3.5-5.1 [facility] Comment on above: Performed By: #### 0 0071 #### [facility] [address] [place] [address], [facility] Sodium [Moles/Vol] 138 mmol/L Normal 136-145 [facility] Comment on above: Performed By: #### 0 0071 #### [facility] [address] [place] [address], [facility] Urea nitrogen [Mass/Vol] 9 mg/dL Normal 7-25 [facility] Comment on above: Performed By: #### 0 0071 #### [facility] [address] [place] [address], [facility] CBC W/DIFFon 11-28-2020 ABS IMM GRANS 0.0 10*3/uL Normal 0.0-0.2 [facility] Comment on above: Performed By: #### 5 0103 ####[facility] [place] [address], [facility] ABS NEUTROPHILS 7.2 10*3/uL Normal 1.6-7.6 [facility] Comment on above: Performed By: #### 5 0103 ####[facility] [facility] [place] [address], [facility] Basophils (Bld) [#/Vol] 0.1 10*3/uL Normal 0.0-0.2 [facility] Comment on above: Performed By: #### 5 0103 ####[facility] [facility] [place] [address], [facility] Basophils/100 WBC (Bld) 0.6 % Normal 0.0-1.0 [facility] Comment on above: Performed By: #### 3 ####[facility] [place] [address], [facility] Eosinophils (Bld) [#/Vol] 0.3 10*3/uL Normal 0.0-0.5 [facility] Comment on above: Performed By: #### 5 0103 ####[facility] [place] [address], [facility] Eosinophils/100 WBC (Bld) 2.6 % Normal 0.0-6.0 [facility] Comment on above: Performed By: #### 5 0103 ####[facility] Erythrocyte distribution width (RBC) [Ratio] 12.6 % Normal 11.5-15.0 [facility] Comment on above: Performed By: #### 5 3 ####[facility] [facility] [place] [address], [facility] Hematocrit (Bld) [Volume fraction] 42.6 % Normal 36.0-45.0 [facility] Comment on above: Performed By: #### 5 0103 ####[facility] Hemoglobin (Bld) [Mass/Vol] 14.4 g/dL Normal 12.0-15.0 [facility] Comment on above: Performed By: #### 5 3 ####[facility] [place] [address] IMMATURE GRANS 0.3 % Normal 0.0-1.0 [facility] Comment on above: Performed By: #### 3 ####[address] Lymphocytes (Bld) [#/Vol] 2.1 10*3/uL Normal 1.2-4.0 [facility] Comment on above: Performed By: #### 5 3 ####[address] Lymphocytes/100 WBC (Bld) 20.2 % Normal 20.0-45.0 [facility] Comment on above: Performed By: #### 5 3 ####[address] MCH (RBC) [Entitic mass] 33.6 pg High 27.0-33.0 [facility] Comment on above: Performed By: #### 5 3 ####[facility] [place] [address] MCHC (RBC) [Mass/Vol] 33.8 g/dL Normal 32.0-35.0 [facility] Comment on above: Performed By: #### 5 3 ####[address] MCV (RBC) [Entitic vol] 99.5 fL High 82.0-98.0 [facility] Comment on above: Performed By: #### 102 ####[facility] [facility] [place] [address], [facility] Monocytes (Bld) [#/Vol] 0.7 10*3/uL Normal 0.1-1.0 [facility] Comment on above: Performed By: #### 102 ####[facility] [facility].[address] MONOS 6.4 % Normal 5.0-12.0 [facility] Comment on above: Performed By: #### 102 ####[facility] Neutrophils/100 WBC (Bld) 69.9 % Normal 40.0-72.0 [facility] Comment on above: Performed By: #### 102 ####[facility] Nucleated RBC/100 WBC (Bld) [Ratio] 0 % Normal 0-0 [facility] Comment on above: Performed By: #### 102 ####[facility] [facility].[address] PLAT CNT 346 10*3/uL Normal 150-400 [facility] Comment on above: Performed By: #### 102 ####[facility] [facility].[address] RBC (Bld) [#/Vol] 4.28 10*6/uL Normal 3.80-5.00 [facility] Comment on above: Performed By: #### 102 ####[facility] WBC (Bld) [#/Vol] 10.24 10*3/uL Normal 4.00-10.60 [facility] Comment on above: Performed By: #### 102 ####[facility] PROTHROMBIN TIMEon INR Coag (PPP) [Relative time] 0.99 {INR} Normal 0.91-1.16 [facility] Comment on above: Result Comment: ACCC [...] CHEST 1995;108:[id number]. Performed By: #### 5 7307, 06497 #### [facility] [address] PT Coag (PPP) [Time] 13.1 s Normal 12.3-14.8 [facility] Comment on above: Result Comment: ALL RESULTS MUST BE INTERPRETED WITH RESPECT TO BLOOD DRAWING ARTIFACT OR DILUTION ERROR OF ANTICOAGULANT AT THE TIME OF SAMPLING. Performed By: #### 5 7307, 08338 #### [facility] [address] [facility] TYPE AND CROSSMATCHon 2020 ABO INTERPRETATION O Normal [facility] Comment on above: Performed By: #### 6 2594 #### [facility] [address] [place] [address], [place] RH INTERPRETATION Positive Normal [facility] Comment on above: Performed By: #### 6 2594 #### [facility] [address] [place] [address], [place] URINALYSISon 11-28-2020 Appearance (U) CLEAR Normal CLEAR [facility] Comment on above: Performed By: #### 1 0008 #### [facility] [address] [place] [address], [place] Bilirubin Ql (U) Negative Normal NEGATIVE [facility] Comment on above: Performed By: #### 1 0008 #### [facility] [address] [place] [address], [place] Color (U) YELLOW Normal YELLOW [facility] Comment on above: Performed By: #### 1 0008 #### [facility] [address] [place] [address], [place] Glucose Ql (U) Negative Normal NEGATIVE [facility] Comment on above: Performed By: #### 1 0008 #### [facility] [address] [place] [address], [place] Hemoglobin Ql (U) Negative Normal NEGATIVE [facility] Comment on above: Performed By: #### 1 0008 #### [facility] [address] [place] [address], [place] KETONE Negative Normal NEGATIVE [facility] Comment on above: Performed By: #### 1 0008 #### [facility] [address] [place] [address], [place] LEUK JORDAN Negative Normal NEGATIVE [facility] Comment on above: Performed By: #### 1 0008 #### [facility] [address] [place] [address], [place] MICRO NOT DONE Normal [facility] Comment on above: Result Comment: Micr oscopics not performed on urines with negative chemical reactions unless requested in original order Performed By: #### 1 0008 #### [facility] [address] [place] [address], [facility] Nitrite Ql (U) Negative Normal NEGATIVE [facility] Comment on above: Performed By: #### 1 0008 #### [facility] [address] [place] [address], [facility] pH (U) 6.0 [pH] Normal 5.0-8.0 [facility] Comment on above: Performed By: #### 1 0008 #### [facility] [address] [place] [address], [facility] Protein Ql (U) Negative Normal NEGATIVE [facility] Comment on above: Performed By: #### 1 0008 #### [facility] [address] [place] [address], [facility] SPEC GRAV 1.018 Normal 1.015-1.020 [facility] Comment on above: Performed By: #### 1 0008 #### [facility] [address] [facility] [place] [address], [facility] Vital Signs Date Time Vital Sign Value Performing Clinician Leeann milton 08-24-2022 13:44-0500 Body height 162.6 cm Janell Sy MD Work Phone: [facility] 08-24-2022 13:44-0500 Body weight 112.95 kg Janell Sy MD Work Phone: [facility] 08-24-2022 13:44-0500 Diastolic blood pressure 73 mm[Hg] Janell Sy MD Work Phone: [facility] 08-24-2022 13:44-0500 Heart rate 88 /min Janell Sy MD Work Phone: [facility] 08-24-2022 13:44-0500 SaO2% (BldA) [Mass fraction] 98 % Janell Sy MD Work Phone: [facility] 08-24-2022 13:44-0500 Systolic blood pressure 112 mm[Hg] Janell Sy MD Work Phone: [facility] 08-05-2022 10:00-0500 Diastolic blood pressure 88 mm[Hg] Carmen Seese PT Work Phone: [facility] 08-05-2022 10:00-0500 Heart rate 78 /min Carmen Seese PT Work Phone: [facility] 08-05-2022 10:00-0500 Systolic blood pressure 134 mm[Hg] Carmen Seese PT Work Phone: [facility] 07-07-2022 08:12-0500 Body height 162.6 cm Glenroy Syed CAFETERIA HELPER.GASOLINE TRACTOR OPERATOR Work Phone: [facility] 07-07-2022 08:12-0500 Body weight 112.04 kg Glenroy Syed CAFETERIA HELPER.GASOLINE TRACTOR OPERATOR Work Phone: [facility] 07-07-2022 08:12-0500 Diastolic blood pressure 88 mm[Hg] Glenroy Syed CAFETERIA HELPER.GASOLINE TRACTOR OPERATOR Work Phone: [facility] 07-07-2022 08:12-0500 Heart rate 82 /min Glenroy Syed CAFETERIA HELPER.GASOLINE TRACTOR OPERATOR Work Phone: [facility] 07-07-2022 08:12-0500 SaO2% (BldA) [Mass fraction] 98 % Glenroy Syed CAFETERIA HELPER.GASOLINE TRACTOR OPERATOR Work Phone: [facility] 07-07-2022 08:12-0500 Systolic blood pressure 134 mm[Hg] Glenroy Syed CAFETERIA HELPER.GASOLINE TRACTOR OPERATOR Work Phone: [facility] 12-09-2021 13:59-0400 Blood Pressure Location Pamella SANABRIA [facility] [place] 12-09-2021 13:59-0400 Diastolic blood pressure 78 mm[Hg] Pamella SANABRIA [facility] [place] 12-09-2021 13:59-0400 Heart rate 68 /min Pamella ZIMMERMANL [facility] [place] 12-09-2021 13:59-0400 Respiratory rate 16 /min Pamella ZIMMERMANL [facility] 12-09-2021 13:59-0400 Systolic blood pressure 118 mm[Hg] Pamella NILL [facility] Encounters Encounter Date Encounter Type Care Provider Facility Start: 01-03-2025 ambulatory [facility] Start: 12-24-2024 End: 12-24-2024 ambulatory Ari Sellers MD Facility: [facility] Start: 11-26-2024 End: 11-26-2024 ambulatory Cristiane L Brock Facility:[facility] [place] Start: 11-15-2024 End: 11-15-2024 ambulatory Cristiane L Brock Facility:[facility] Start: 10-30-2024 ambulatory [facility] Start: 10-02-2024 End: 10-08-2024 Telephone encounter [facility] Comment on above: neuro referral Start: 09-18-2024 ambulatory [facility] Start: 09-11-2024 End: 09-11-2024 ambulatory Cristiane L Brock Facility:[facility] Start: 07-16-2024 ambulatory [facility] Start: 06-29-2024 ambulatory [facility] Start: 06-15-2024 ambulatory [facility] Start: 06-04-2024 End: 06-04-2024 ambulatory Ari Sellers MD Facility: [facility] Start: 05-31-2024 ambulatory [facility] Start: 05-09-2024 ambulatory [facility] Start: 04-27-2024 ambulatory [facility] Start: 03-06-2024 ambulatory [facility] Start: 01-31-2024 ambulatory [facility] Start: 01-24-2024 ambulatory [facility] Start: 12-19-2023 End: 12-19-2023 ambulatory Cristiane Gutiérrez Facility:[facility] Start: 10-25-2023 End: 10-25-2023 ambulatory IRMA CHUNGO Not Available Start: 08-25-2023 End: 08-25-2023 ambulatory IRMA SUDHA Not Available Start: 10-15-2022 Orders Only Glenroy Syed APRN.GASOLINE TRACTOR OPERATOR Work Phone: Neurology Comment on above: [...] morbid, BMI 40.0-49.9 (HCC); SVT (supraventricular tachycardia) ([facility]); Chronic fatigue; Vitamin D deficiency Start: 08-20-2022 Orders Only Len VINCENTGASOLINE TRACTOR OPERATOR Work Phone: Neurology Comment on above: [...] y:H1 Start: 07-07-2022 Telephone encounter Glenroy Debbie rodriguez CAFETERIA HELPER.GASOLINE TRACTOR OPERATOR Work Phone: Neurology Comment on above: Received Outside Med ical Records Start: 07-07-2022 End: 07-07-2022 ambulatory GLENROY SYED Facility:[facility] Start: 07-07-2022 End: 07-07-2022 Patient encounter procedure Glenroytoan Syed CAFETERIA HELPER.GASOLINE TRACTOR OPERATOR Work Phone: Neurology Comment on above: [...] Patient encounter procedure Pamella SANABRIA [facility] Start: 11-25-2021 End: 11-26-[address] MERT LAMA Facility:[facility] Start: 11-23-2021 Encounter for genera l adult medical examination without abnormal findings DR MERT LAMA [facility] Start: 11-19-2021 End: 11-20-[address] MERT LAMA Facility:[facility] Start: 11-19-2021 End: 11-20-2021 Encounter for general adult medical examination without abnormal findings DR MERT LAMA Facility:[facility] Start: 11-17-2021 End: 11-18-2021 ambulatory MERT LAMA Facility:[facility] Start: 11-14-2021 End: 11-15-2021 ambulatory ANU CABAN Facility:[facility] Start: 10-08-2021 End: 10-08-2021 ambulatory WM RODRIGUEZ Facility:[facility] Start: 06-17-2021 End: 06-18-2021 ambulatory MERT LAMA Facility:[facility] Start: 04-16-2021 End: 05-23-2021 ambulatory MERT LAMA Facility:[facility] Start: 12-05-2020 End: 12-06-2020 ambulatory MERT LAMA Facility:[facility] Procedures Date Procedure Procedure Detail Performing Clinician Start: 08-24-2022 Ecg routine ecg w/le ast 12 lds i&r only [facility] Provider Start: 12-05-2020 ANESTH KNEE AREA SURGERY MERT LAMA Start: 12-05-2020 REMOVE FEMUR LESION CARLOS HAEL P MIKA Start: 11-28-2020 Antibody screen MERT ORTIZ Comment on above: Performed By: #### 6 [id number] #### [address] Start: 11-04-2020 Cystourethroscopy wi dilation of urethral stricture Pamella SANABRIA Abdominal hysterectomy Wale SANABRIA Bilateral complete salpingectomy Pamella SANABRIA Cardiac radiofrequen cy ablation using ultrasound guidance Pamella SANABRIA Cholecystectomy Pamella SANABRIA Excision of osteochondroma Nestor SANABRIA History of ankle surgery Carlos SANABRIA Plan of Treatment Date Care Activity Detail Author Start: 04-08-2024 COVID-19 Vaccine () COVID-19 Vaccine () [facility] Start: 04-08-2024 Influenza vaccination Influenza Vacc ine [facility] Start: 08-08-2022 DEPRESSION ASSESSMENT DEPRESSION ASS [facility] Start: 07-07-2022 End: 09-06-2022 25-hydroxyvitamin D3 [Mass/volume] in Serum or Plasma [facility] Work Phone: Comment on above: Expected: 07/07/2022 , Expires: 09/06/2022 Start: 07-07-2022 End: 09-06-2022 ESEQUIEL BY IFA WITH REFLEX [facility] Work Phone: Comment on above: Expected: 07/07/2022 , Expires: 09/06/2022 Start: 04-08-2022 Influenza vaccination INFLUENZA (#1) [facility] Start: 08-08-2021 [facility]ION [facility]ESSMENT [facility] Start: 11-05-2020 COVID-19 VACCINE (3 - Booster for Giancarlo series) COVID-19 VACCINE (3 - Booster for Giancarlo series) [facility] Start: 2012 HPV TESTING HPV TESTING [facility] Start: 12-29-2003 DTaP,Tdap and Td Vac cines (6 - Tdap) DTaP,Tdap and Td Vaccines (6 - Tdap) [facility] Start: 11-30-2003 PAP TESTING PAP TESTING [facility] Start: 11-30-2003 Screening for malign ant neoplasm of cervix Pap Smear [facility] Start: 2001 Urine microalbumin profile DTA P,TDAP,TD (1 - Tdap) [facility] Start: 2000 Adult BMI Screening Adult BMI Screen ing [facility] Start: 2000 HEPATITIS C SCREENING HEPATITIS C SC REENING [facility] Start: 2000 HIV SCREENING HIV SCREENING [facility] Start: 1994 Depression Screening Depression Scre ening [facility] Start: 1994 Tobacco Screening Tobacco Screening [facility] Start: 1982 HEPATITIS B (1 of 3 - 3-dose series) HEPATITIS B (1 of 3 - 3-dose series) [facility] End: 08-24-2023 ECG COMPLETE ECG COMPLETE ECG Routine Dizziness Palpitations Obesity, morbid, BMI 40.0-49.9 (HCC) 1 Occurrences starting 08/24/2022 until 08/24/2023 [facility] Work Phone: Comment on above: 1 Occurrences starti ng 08/24/2022 until 08/24/2023 ECG COMPLETE ECG COMPLETE ECG 08/24/2022 1:56 PM EST [facility] End: 07-07-2023 Echocardiography ECHO Cardiology Routine Palpitations 1 Occurrences starting 07/07/2022 until 07/07/2023 [facility] Work Phone: Comment on above: 1 Occurrences starti ng 07/07/2022 until 07/07/2023 End: 08-06-2023 Mri brain brain stem w/o w/contrast material MRI BRAIN WO/W IVCON Radiology Routine Dizziness Vision changes 1 Occurrences starting 07/07/2022 until 08/06/2023 [facility] Work Phone: Comment on above: 1 Occurrences starti ng 07/07/2022 until 08/06/2023 End: 09-15-2023 Mri spinal canal cervical w/o & w/contr matrl MRI CERVICAL SPINE WO/W IVCON Radiology Routine Dizziness Vision changes Cervicalgia Disturbance of skin sensation 1 Occurrences starting 08/16/2022 until 09/15/2023 [facility] Work Phone: Comment on above: 1 Occurrences starti ng 08/16/2022 until 09/15/2023 [facility] Immunizations Immunization Date Immunization Notes Care Provider Tayo cullen 09-10-2020 SARS-CoV-2 (COVID-19 ) Ad26 vaccine, recombinant Pamella NILL [facility] 08-12-2020 SARS-CoV-2 (COVID-19 ) Ad26 vaccine, recombinant Pamella NILL [facility] Payers Date Payer Category Payer Unknown [id number] 2021 Unknown [id number] 1980 Unknown [id number] 2.16.8 [id number] 1982 Unknown [id number] 2.16.8 40.1.278451.3.579.2.647 1982 Unknown [id number] 2.16.8 40.1.109224.3.579.2.647 1982 Unknown [id number] 2.16.8 40.1.211422.3.579.2.647 1982 Unknown [id number] 2.16.84 0.1.292016.3.579.2.593 1982 Unknown [id number] 2.16.84 0.1.767661.3.579.2.593 1982 Unknown [id number] 2.16.84 0.1.608910.3.579.2.593 1982 Unknown [id number] 2.16.84 0.1.574445.3.579.2.593 1982 Unknown [id number] 2.16.84 0.1.371983.3.579.2.593 1982 Unknown [id number] 2.16.84 0.1.500484.3.579.2.593 1982 Unknown [id number] 2.16.84 0.1.323210.3.579.2.593 1982 Unknown [id number] 2.16.84 0.1.526656.3.579.2.593 1982 Unknown [id number] 2.16.84 0.1.873919.3.579.2.593 1982 Unknown [id number] 2.16.84 0.1.331824.3.579.2.593 1982 Unknown [id number] 2.16.84 0.1.062014.3.579.2.593 1982 Unknown [id number] 2.16.84 0.1.782683.3.579.2.593 1982 Unknown [id number] 2.16.84 0.1.343087.3.579.2.593 1982 Unknown [id number] 2.16.84 [id number] 1982 Unknown [id number] 2.16.84 0.1.510601.3.579.2.593 1982 Unknown [id number] 2.16.84 0.1.224570.3.579.2.1259 1982 Unknown [id number] 2.16.84 0.1.142634.3.579.2.1259 1982 Unknown [id number] 2.16.8 40.1.129954.3.579.2.727 1982 Unknown [id number] .16.8 40.1.534104.3.579.2.727 1982 Unknown [id number] .16.8 40.1.543063.3.579.2.727 1982 Unknown [id number] .16.8 40.1.227297.3.579.2.727 1982 Unknown [id number] .16. 840.1.018554.3.579.2.196 1982 Unknown [id number] 2.16. [id number] 1959 Unknown [id number] Social History Date Type Detail Facility Start: 05-01-2021 End: 12-09-2021 Tobacco smoking status Never smoked tobacco (finding) [facility] [place] Tobacco smoking status Never [facility] Start: 01-17-2019 End: 05-01-2021 Sex Assigned At Female [facility] [place] Start: 05-01-2021 End: 07-07-2022 Tobacco use and exposure Smokeless tobacco non-user [facility] Start: 1980 Sex Assigned At Not on file C [facility] Start: 06-27-2022 End: 07-07-2022 Exposure to SARS-CoV-2 (event) Not sure [facility] Start: 05-01-2021 End: 08-24-2022 Alcohol intake Current drinker of alcohol (finding) [facility] Start: 08-24-2022 Alcohol Comment occasionally 1 -2 times a months 2-3 drinks [facility] Start: 01-17-2019 End: 05-01-2021 History of Social function [facility] Start: 05-01-2021 Alcohol Comment social [facility] Start: 03-13-2015 Sex Female (finding) [facility] [place] Clinical Notes 12-30-2021 to 10-02-2024 Telephone Encounter [...] message for patient [facility] Telephone encounter Note Received new patient [...] EVER BEEN SEEN BY A NEUROLOGIST BEFORE? [employer] 10-02-2024 Telephone encounter Note 1st attempt- left voicemail Received Referral from: JOSE ANTONIO Mcclendon Dx: Facial tingling M62.838 (ICD-10-CM) - Muscle spasm [facility] 10-02-2024 Telephone encounter Note 2nd attempt: Left message for patient [employer] 10-14-2022 Note HNO ID: [id number] Author: RT Mary(R) Service: ? Author Type: [...] RT Mary(R) October 14, 2022 4:55 PM [facility] 10-14-2022 Note HNO ID: [id number] Author: Papa Rea RN Service: Radiology Author [...] DATE: October 14, 2022 TIME: 3:20 PM [facility] 09-09-2022 Note HNO ID: [id number] Author: RT Odessa(R) Service: ? Author Type: Technologist Type: Progress Notes Filed: 09/09/2022 2:12 PM Note Text: RADIOLOGY SERVICE PROGRESS NOTE DATE OF SERVICE: September 09, 2022 TIME OF SERVICE: 2 pm EVENT: EXAM/PROCEDURE NOT COMPLETED - Patient became claustrophobic, reaction was: Moderate. ADDITIONAL EVENT DETAILS: No images acquired. Patient to r/s on large bore mri scanner. SIGNATURE: Mauri RT Parisa(R) PATIENT NAME: Kaila Vasquez DATE: September 09, 2022 TIME: 2:11 PM PAGER/CONTACT #: [facility] 09-09-2022 History of Present illness [...] PM PAGER/CONTACT #: documented in this encounter [facility] 08-24-2022 Note HNO ID: [id number] Author: Janell Sy MD Service: ? Author Type: Physician Type: Progress Notes Filed: 08/24/2022 2:17 PM Note Text: [facility] [place] SECTION OF REGIONAL CARDIOLOGY OUTPATIENT VISIT DATE [...] Cardiac work-up includes: Echocardiogram on 05/19/2020 at [facility] showed normal ejection fraction. No valvular heart [...] ECG COMPLETE 4. Obesity, morbid, BMI 40.0-49.9 ([facility]) E66.01 ECG COMPLETE 5. SVT (supraventricular tachycardia) ([facility]) I47.1 6. Chronic fatigue R53.82 7. Vitamin [...] Never Vaping U (more content not included)... [facility] 08-24-2022 History of Present illness Narrative Images from the original note were not included. [facility] [place] SECTION OF REGIONAL CARDIOLOGY OUTPATIENT VISIT DATE August 24, 2022 OUTPATIENT VISIT TYPE NEW PRIMARY CARE PHYSICIAN: To use this Smartlink, specify the provider ID whose address you want to display, e.g., .[place] OasisADDR[1 (where 1 is the provider ID). A written report of the findings and recommendations will be sent to the requesting provider via shared medical record or via [employer]. Patient is being seen at the request [...] Cardiac work-up includes: Echocardiogram on 05/19/2020 at [facility] showed normal ejection fraction. No valvular heart [...] ECG COMPLETE 4. Obesity, morbid, BMI 40.0-49.9 ([facility]) E66.01 ECG COMPLETE 5. SVT (supraventricular tachycardia) ([facility]) I47.1 6. Chronic fatigue R53.82 7. Vitamin [...] twice daily.^Disp: ^Rfl: documented in this encounter [facility] 08-19-2022 Note HNO ID: [id number] Author: Mauri Chun OD Service: ? Author Type: OUTDOOR ADVENTURE INSTRUCTOR Type: Progress Notes Filed: 08/19/2022 10:22 AM Note Text: Ocular health is unremarkable with no abnormalities. Normal ON appearance Ophthalmic migraines Glasses Rx given with slight prism [facility] 08-16-2022 Miscellaneous Notes signed We can add it to fully evaluate her symptoms. -LP documented in this encounter [facility] 08-12-2022 Note HNO ID: [id number] Author: Carmen Johnson, PT Service: ? Author [...] Time Minutes (timed/untimed): 60 Carmen Johnson, PT [facility] 08-12-2022 History of Present illness [...] Carmen Johnson PT documented in this encounter [facility] 08-05-2022 Note HNO ID: [id number] Author: Carmen Johnson PT Service: ? Author [...] Planned: 8 Planned Treatment Interventions: Therapeutic exercise (58119);Neuromuscular re-education (12491);Manual therapy (19054);Therapeutic activities (01250);Self-residential management (09067);Patient/Family/Caregiver Education;Gait Training (37578);Canalith Repositioning Maneuvers (03276) PLAN FOR NEXT VISIT: Detailed neck exam [...] Premature atrial contra (more content not included)... [facility] 08-05-2022 History of Present illness [...] Planned: 8 Planned Treatment Interventions: Therapeutic exercise (03106);Neuromuscular re-education (60265);Manual therapy (86444);Therapeutic activities (23818);Self-residential management (29544);Patient/Family/Caregiver Education;Gait Training (30841);Canalith Repositioning Maneuvers (98860) PLAN FOR NEXT VISIT: Detailed neck exam [...] present Head Shake: Negative Positional Testing Right [place]pike: No nystagmus;Asymptomatic Left [place]-Hallpike: No nystagmus;Asymptomatic Right [...] Carmen Johnson PT documented in this encounter [facility] 07-07-2022 Note HNO ID: [id number] Author: Glenroy Syed APRN.GASOLINE TRACTOR OPERATOR Service: ? Author Type: Nurse Practitioner Type: Progress Notes Filed: 07/07/2022 12:28 PM Note Text: [facility] General Neurology New Patient Evaluation CHIEF COMPLAINT: [...] over a month. She has seen an machine adjuster leader and was told she was having occular migraine by her field mechanical meter tester. A couple times a month she gets [...] for 1 dose.N (more content not included)... [facility] 07-07-2022 Miscellaneous Notes Noted. Provider notified. Received medical records from [facility]. Uploaded to chart and forwarded for review. documented in this encounter [facility] 07-07-2022 Instructions Glenroy Syed APRN.CNP - 07/07/2022 9:06 AM EST Plan: Baseline labs MRI Brain for multiple symptoms ECHO for palpitations and arrhythmias Aspirin 81mg daily in the setting of known arrhythmias Consult to VT for dizziness Consult to Cardiology for second opinion Consult to ophthalmology Follow up after testing documented in this encounter [facility] 07-07-2022 History of Present illness Narrative Images from the original note were not included. [facility] General Neurology New Patient Evaluation CHIEF COMPLAINT: [...] over a month. She has seen an machine adjuster leader and was told she was having occular migraine by her field mechanical meter tester. A couple times a month she gets [...] Finger Abduction (U) 5 Finger Abduction 5 Conveyor Maintenance Mechanic 5 Conveyor Maintenance Mechanic 5 Right Lower Extremity: (of 5) Left [...] Additionally,Has had a tilt table test in 2020. However, it was done with Isuprel. At [...] over a month. She has seen an machine adjuster leader and was told she was having occular migraine by her field mechanical meter tester. A couple times a month she gets [...] VT reccommended. Patient wanting second opinion from field mechanical meter tester within the [facility], referral placed. Unlikely autonomic dysfunction with unremarkable tilt and orthostatic vitals in office unconvincing (did not take BB today). Additionally, with visual changes, recommended seeing neuro director search marketing strategies. Will obtain additional labs as well. Follow [...] which included preparing to see the patient, [id number] patient care, completing clinical documentation, obtaining and/or reviewing separately obtained history, performing a medically appropriate examination, counseling and educating the patient/family/caregiver, ordering medications, tests, or procedures, and care coordination (not separately reported). Glenroy Syed APRN.CNP [facility] General Neurology [address] [place] [address] Appointment: [phone] In regards to blood work, testing, and radiology reports these are released automatically to the patients. We do not comment on most testing on [employer] in a message or commentary unless there [...] your PCP/referring physician documented in this encounter [facility] 03-16-2022 Note EXAM: CHEST 2 VIEWS HISTORY: [...] worsen or persist. Electronically authenticated by: BETTY FULLERNG Date: 2022-03-16 18:13 [facility] 12-30-2021 Note The [place], [place] NAME: KAILA VASQUEZ DATE OF : MEDICAL REC#: [id number] FINANCE PROFESSIONAL: [address] [facility], [facility] DATE: 12/30/2021 09:02:00 PRODUCTION CLOTH CUTTER DATE: 12/30/2021 21:00 DICTATING PHYSICIAN: PAMELLA SANABRIA [...] Sanabria MD on 01/06/2022 08:31 AM EDT [facility] Signed and Approved by: DR PAMELLA SANABRIA . 01/06/2022 08:31:00 [facility] Evaluation + Plan note No data available for this section [facility] [place] Evaluation note Diagnosis Dizziness- Primary Dizziness and giddiness Migraine aura without headache Migraine with aura, without mention of intractable migraine without mention of status migrainosus Palpitations Chronic fatigue Other malaise and fatigue Vision changes Unspecified visual disturbance Disturbance of skin sensation [facility] Diagnosis Dizziness- Primary Dizziness and giddiness Cervicalgia Headaches [facility] Diagnosis Dizziness- Primary Dizziness and giddiness Cervicalgia Headaches [facility]* Diagnosis Cervicalgia- Primary Dizziness Dizziness and giddiness Vision changes Unspecified visual disturbance Disturbance of skin sensation [facility]* Diagnosis Ocular migraine- Primary Other forms of migraine, without mention of intractable migraine without mention of status migrainosus [facility]* Diagnosis KANG (obstructive sleep apnea)- Primary Obstructive sleep apnea (adult) (pediatric) Dizziness Dizziness and giddiness Palpitations Obesity, morbid, BMI 40.0-49.9 (HCC) Morbid obesity SVT (supraventricular tachycardia) ([facility]) Other specified cardiac dysrhythmias Chronic fatigue Other malaise and fatigue Vitamin D deficiency Unspecified vitamin D deficiency [facility]* Diagnosis Degeneration of intervertebral disc of cervical region with osteophyte of cervical vertebra- Primary documented in this encounter [facility] Discharge instructions No data available for this section [facility] [place] InstructionsNot on filedocumented in this encounter [facility] Outpatient Procedure (Routine) - Authorized Specialty Diagnoses / Procedures Referred By Contac t Referred To Contact [facility] Diagnoses Dizziness Palpitations Obesity, morbid, BMI 40.0-49.9 (HCC) Procedures ECG COMPLETE ECG ROUTINE ECG W/LEAST 12 LDS W/I&R Janell Sy MD [address] [place] [address] [facility] [place] [facility] [place] [address] Referral ID Status Reason Start Date Expiration Date Visits Requested Visits Authorized [id number] Authorized Auto-Generat ed Referral 08/24/2022 08/24/2023 1 1 [facility] Summary Purpose Family History No Family History [...] By Contac t Referred To Contact [facility] [place] Diagnoses Degeneration of intervertebral disc of cervical region with osteophyte of cervical vertebra Procedures CONSULT TO [facility] OFFICE/OUTPATIENT [facility] 60-74 MINUTES Glenroy Syed, CAFETERIA HELPER.GASOLINE TRACTOR OPERATOR [address] [id number] Referral ID Status Reason Start Date Expiration Date Visits Requested Visits Authorized [id number] Authorized PCP Requested Referral 10/15/2022 10/15/2023 1 1 Specialty Diagnoses / Procedures Referred By Contac t Referred To Contact Ophthalmology Diagnoses Ocular migraine Procedures CONSULT TO OPHTHALMOLOGY OFFICE/OUTPATIENT [facility] 60-74 MINUTES Len Shae, CAFETERIA HELPER.GASOLINE TRACTOR OPERATOR [address] [facility] [id number] [place] [address] Josefina Grimes MD [address] [id number] Referral ID Status Reason Start Date Expiration Date Visits Requested Visits Authorized [id number] Authorized PCP Requested Referral 08/20/2022 08/20/2023 1 1 Specialty Diagnoses / Procedures Referred By Contac t Referred To Contact Cardiology Diagnoses Dizziness Palpitations Procedures CONSULT TO CARDIOLOGY OFFICE/OUTPATIENT [facility] 60-74 MINUTES Glenroy Syed, CAFETERIA HELPER.GASOLINE TRACTOR OPERATOR [address] [phone] Referral ID Status Reason Start Date Expiration Date Visits Requested Visits Authorized [id number] Authorized PCP Requested Referral 2 07/07/2023 1 1 Specialty Diagnoses / Procedures Referred By Contac t Referred To Contact MR IMAGING Diagnoses Dizziness Vision changes Procedures MRI BRAIN WO/W IVCON MRI BRAIN BRAIN STEM W/O W/CONTRAST MATERIAL Glenroy Syed, ELISEO.GASOLINE TRACTOR OPERATOR [address] [place] [address] Mr Imaging Referral ID Status Reason Start Date Expiration Date Visits Requested Visits Authorized [id number] Authorized Auto-Generat ed Referral 2 08/21/2022 1 1 Specialty Diagnoses / Procedures Referred By Contac t Referred To Contact Ophthalmology Diagnoses Vision changes Procedures CONSULT TO OPHTHALMOLOGY OFFICE/OUTPATIENT [facility] 60-74 MINUTES Glenroy Syed, CAFETERIA HELPER.GASOLINE TRACTOR OPERATOR [address] [place] [address] Josefina Grimes MD [address] [place] [address] Referral ID Status Reason Start Date Expiration Date Visits Requested Visits Authorized [id number] Authorized PCP Requested Referral 2 07/07/2023 1 1 Specialty Diagnoses / Procedures Referred By Contac t Referred To Contact [facility] Diagnoses Palpitations Procedures ECHO ECHO TTHRC R-T 2D W/WOM-MODE COMPL SPEC&COLR D Glenroy Syed, CAFETERIA HELPER.GASOLINE TRACTOR OPERATOR [address] [place] [address] [facility] [place] [facility] [place] [address] Referral ID Status Reason Start Date Expiration Date Visits Requested Visits Authorized [id number] Authorized Auto-Generat ed Referral 2 07/07/2023 1 1 Additional Source Comments INFORMATION SOURCE (unrecogn ized section and content) DATE CREATED AUTHOR 11/24/2021 [facility] DATE CREATED AUTHOR AUTHOR'S ORGANIZ ATION 07/20/2022 [facility] DATE CREATED AUTHOR AUTHOR'S ORGANIZ ATION 09/06/2022 [facility] DATE CREATED AUTHOR AUTHOR'S ORGANIZ ATION 10/16/2022 [facility] DATE CREATED AUTHOR AUTHOR'S ORGANIZ ATION 10/26/2023 [facility]ical [facility] DATE CREATED AUTHOR AUTHOR'S ORGANIZ ATION 11/27/2024 [facility] DATE CREATED AUTHOR AUTHOR'S ORGANIZ ATION 01/04/2025 [facility] DATE CREATED AUTHOR AUTHOR'S ORGANIZ ATION 01/05/2025 [facility] Source Comments (unrecognize d section and content) In the event this informatio n is protected by the Federal Confidentiality of Alcohol and Drug Abuse Patient Records regulations: The Federal rules restrict any use of the information to criminally investigate or prosecute any alcohol or drug abuse patient.[facility] the event this information is protected by the Federal Confidentiality of Alcohol and Drug Abuse Patient Records regulations: The Federal rules restrict any use of the information to criminally investigate or prosecute any alcohol or drug abuse patient.[facility] the event this information is protected by the Federal Confidentiality of Alcohol and Drug Abuse Patient Records regulations: The Federal rules restrict any use of the information to criminally investigate or prosecute any alcohol or drug abuse patient.[facility] the event this information is protected by the Federal Confidentiality of Alcohol and Drug Abuse Patient Records regulations: The Federal rules restrict any use of the information to criminally investigate or prosecute any alcohol or drug abuse patient.[facility] the event this information is protected by the Federal Confidentiality of Alcohol and Drug Abuse Patient Records regulations: The Federal rules restrict any use of the information to criminally investigate or prosecute any alcohol or drug abuse patient.[facility] the event this information is protected by the Federal Confidentiality of Alcohol and Drug Abuse Patient Records regulations: The Federal rules restrict any use of the information to criminally investigate or prosecute any alcohol or drug abuse patient.[facility] the event this information is protected by the Federal Confidentiality of Alcohol and Drug Abuse Patient Records regulations: The Federal rules restrict any use of the information to criminally investigate or prosecute any alcohol or drug abuse patient.[facility] the event this information is protected by the Federal Confidentiality of Alcohol and Drug Abuse Patient Records regulations: The Federal rules restrict any use of the information to criminally investigate or prosecute any alcohol or drug abuse patient.[facility] the event this information is protected by the Federal Confidentiality of Alcohol and Drug Abuse Patient Records regulations: The Federal rules restrict any use of the information to criminally investigate or prosecute any alcohol or drug abuse patient.[facility] the event this information is protected by the Federal Confidentiality of Alcohol and Drug Abuse Patient Records regulations: The Federal rules restrict any use of the information to criminally investigate or prosecute any alcohol or drug abuse patient.[facility] Reason for Visit (unrecogniz ed section and [...] [R42] Procedures NEW RS PT VESTIBULAR DIZZY [place], Glenroy, CAFETERIA HELPER.GASOLINE TRACTOR OPERATOR [address] [place] [address] Carmen Johnson, PT [address] [place] [address] Referral ID Status Reason Start Date Expiration Date Visits Re quested Visits Authorized [id number] Closed 08/08/2021 08/07/2022 30 30 Reason Comments Physical Therapy Specialty Diagnoses / Procedures Referred By Contac t Referred To Contact PHYSICAL THERAPY Diagnoses Dizziness Procedures Physical Therapy Glenroy Syed, CAFETERIA HELPER.GASOLINE TRACTOR OPERATOR [address] [place] [address] [facility] [address] [place] [address] Referral ID Status Reason Start Date Expiration Date V isits Requested Visits Authorized [id number] Pending Review 08/12/2022 11/10/2022 1 1 Reason Comments Establish Care Palpitations Dizziness Specialty Diagnoses / Procedures Referred By Contac t Referred To Contact Cardiology Diagnoses Dizziness Palpitations Procedures CONSULT TO CARDIOLOGY OFFICE/OUTPATIENT [facility] MDM 60-74 MINUTES Glenroy Syed, CAFETERIA HELPER.GASOLINE TRACTOR OPERATOR [address] [place] [address] Referral ID Status Reason Start Date Expiration Date V isits Requested Visits Authorized [id number] Closed PCP Requested Referral 07/07/2022 07/07/2023 1 1 Reason Comments Radiology MRI Reason Onset Date Comments neuro referral 10/02/2024 Care Teams (unrecognized sec tion and content) It Security Project Manager Relationship Specialty Start Date End Date Mert Lama MD [address] [place] [address] Referring Family Medicine 06/10/22 It Security Project Manager Relationship Specialty Start Date End Date Mert Lama MD [address] [place] [address] Referring Family Medicine 06/10/22 It Security Project Manager Relationship Specialty Start Date End Date Mert Lama MD [address] [place] [address] Referring Family Medicine 06/10/22 It Security Project Manager Relationship Specialty Start Date End Date Mert Lama MD [address] [place] [address] Referring Family Medicine 06/10/22 It Security Project Manager Relationship Specialty Start Date End Date Mert Lama MD [address] [place] [address] Referring Family Medicine 06/10/22 It Security Project Manager Relationship Specialty Start Date End Date Mert Lama MD [address] [place] [address] Referring Family Medicine 06/10/22 It Security Project Manager Relationship Specialty Start Date End Date Mert Lama MD [address] [place] [address] Referring Family Medicine 06/10/22 It Security Project Manager Relationship Specialty Start Date End Date Mert Lama MD [address] [place] [address] Referring Family Medicine 06/10/22 It Security Project Manager Relationship Specialty Start Date End [...] BE BASED ON THE PRIMARY CLINICAL RECORDS. [facility]. provides no warranty or guarantee of the accuracy or completeness of information in this document.
--- NOTE | 2025-01-17 08:21 | P.CN_ITS ---
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 Pt has failed to benefit from > 6 weeks of PT and provider guided HEP, heat, ice, tylenol, and NSAIDs. currently utilizing tizanidine 4mg BID PRN pain/spasms. pain today 2-3/10 increasing to 9/10 with twisting, lying, bending. mild improvement with heat. recently underwent bilateral C4-5 C5-6 MBB #1 and #2 with >80% improvement while anestehtized, preop pain up to 9/10 post op pain 0/10. of note pt was given 5mg po valium prior to her procedures and reports she endorsed significant discomfort and anxiety during the procedure and had difficulties lying prone and staying still. cc:: CC: Deepika Alicia NP Review of Systems ROS Status of ROS 10 or more systems reviewed and unremark able except as noted in history and below Musculoskeletal Reports: neck pain PFSH PFSH Medical History (Updated 12/12/24 @ 14:15 by Deepika Alicia NP) Arthritis ?M19.90 - Unspecified osteoarthritis, unspecified site (ICD-10) Anemia ?D64.9 - Anemia, unspecified (ICD-10) Acid reflux ?K21.9 - Gastro-esophageal reflux disease without esophagitis (ICD-10) Kidney stone ?N20.0 - Calculus of kidney (ICD-10) Irregular heart beat ?I49.9 - Cardiac arrhythmia, unspecified (ICD-10) Surgical History History of cardiac radiofrequency ablation ?Z98.890 - Other specified postprocedural states (ICD-10) History of ankle surgery ?Z98.890 - Other specified postprocedural states (ICD-10) History of hysterectomy ?Z90.710 - Acquired absence of both cervix and uterus (ICD-10) Hx of cholecystectomy ?Z90.49 - Acquired absence of other specified parts of digestive tract (ICD- 10) Meds Home Medications and Allergies Home Medications ?Medication ?Instructions ?Recorded ?Confirmed ?Type metoprolol tartrate 50 mg tablet 50 mg PO BID 12/30/23 01/14/25 History tizanidine 4 mg capsule (Zanaflex) 4 mg PO Q8H PRN mus abhishek spasticity 12/30/23 01/14/25 Rx #20 caps diazepam 5 mg tablet (Valium) 5 mg PO ONCE PRN sedatio n #1 tab 01/03/25 01/14/25 Rx Allergies Allergy/AdvReac Type Severity Reaction Status Date / Time No Known Drug Allergies Allergy Verified 01/14/25 09:21 Exam Constitutional Documenting provider has reviewed patient's vital signs: yes Common normals: no apparent distress, oriented x3, healthy appearing, alert and well nourished General appearance: cooperative HENMT Common normals: normocephalic, hearing grossly normal bilaterally and moist oral mucous membranes Head and scalp: normocephalic Eye Common normals: PERRL Pupil: PERRL Neck & C-Spine Common normals: full ROM General: normal visual inspection Cervical spine: cervical ROM abnormal, pain with cervical ROM and cervical spine tenderness C4, C5, C6, C7 and T1 Other: negative spurlings strength 5/5 in BUE sensation intact BUE positive facet mediated loading left greater than right Chest Common normals: inspection of chest normal Respiratory Common normals: normal respiratory effort, no retractions and no use of accessory muscles Neuro Common normals: oriented x3 Sensorium/orientation: alert Psych Common normals: mental status grossly normal, thought process normal, cooperative, affect normal, speech normal and activity/motor behavior normal Speech: normal speech Thought process: normal thought process Results Additional Findings Additional findings: If on a controlled substance or opioids, I have checked an [place]AR[place] report on this patient and there are no aberrancies noted in the prescribing history.??If on a controlled substance or opioid a drug screen was completed and reviewed within the last year, and if there has not been a drug screen completed we ordered one today to monitor higher risk, state monitored pain medication use. As part of providing excellent, safe, comprehensive care, the following was completed at our patient's visit: 1. A medication reconciliation and review to ensure accurate knowledge of current/active medications, including asking our patients to inform us about any koiq-[id number]-pqrefwl medications or herbal remedies/nutritional supplements/alternative remedies. 2. A review to specifically ensure our patients have had annual screening for screening for depression, screening for tobacco use, and screening for unhealthy alcohol use. For concerning screenings had a discussion with the patient, provided patient education, and recommended follow-up with primary care provider when appropriate. If patient noted with a risk of falling, they received education on strength, gait, and balance training to prevent future risk of falling. Portions of this note may have been carried over from the previous visit and updated as appropriate. Please note this office utilizes paper charting in addition to the electronic medical record. A list of current medications, vitals, and PMH is available t here as the clinical staff outside of myself do not have access to [employer] charting during the clinic day operations. As part of providing quality comprehensive care the current medications, vitals, and PMH were reviewed in the paper chart. Assessment and Plan Assessment and Plan (1) Cervical spondylosis: Assessment and Plan: The patient has had over 3 months of moderate to severe neck pain with functional impairment and inadequate response to conservative care including NSAIDS (unless there are contraindication such as concurrent blood thinners), multiple oral or topical pain medications, and home exercise program/physical therapy.? Patient has completed >6 weeks of guided home exercise program and/or formal physical therapy program without relief of their symptoms.? I have reviewed the imaging of the cervical spine and no red flags were shaunna ntified.? The imaging reveals radiographic findings consistent with cervical ddd and spondylosis The Oswestry Disability Index was completed, and the patient scored a 36%.? The patient noted the following:?? moderate to severe pain with activity, lifting, sitting, sleep, social life, and travel We discussed the risks and benefits of the procedure with the patient ?The procedure will be completed with fluoroscopic guidance.? (2) Lumbar spondylosis: (3) Myofascial pain: Plan right then left C4-5 C5-6 facet RFA for axial facet mediated neck pain with IV sedation due to pts report of significant difficulty tolerating the procedure, i am concerned with increased risks of complications during the RFA procedure due to excess movement continue current medications f/u 1 month after RFA complete
== END 2025-01-17 08:03 | disposition home or self-care (01) ==
LOC: PM 08:02
PROVIDERS: PCP Family Medicine; Visit Provider Nurse Practitioner
DX: M47.812 Spondylosis without myelopathy or radiculopathy, cervical region (principal); M47.816 Spondylosis without myelopathy or radiculopathy, lumbar region; M79.18 Myalgia, other site
CPT/HCPCS: G0463

== ENCOUNTER 2025-02-25 07:44 | Day surgery (SDC) | payer BC, SELFPAY ==
--- OUTSIDE RECORDS SUMMARY | 2024-01-13 05:00 | XMS_ITS ---
Author Organization [facility] Address [address] [place] [address] Care Team Providers Care Shell Coremaker Name Role Phone MichaelÁlvaro Primary Care Provider Jeanna Hardin Unavailable Allergies No Known Allergies Reason For Referral Reason REFERRAL TO [facility] Diagnosis 1 Low back pain, unspe cified (M54.50) Referral Organization [facility] Referring Provider First Name Adarsh Referring Provider Last Name [facility] Ferr[facility] Referring Provider Speciality Orthopedic Surgery Referred Organization Pain clinic General Notes Christi Lui 2023 09:53:22 AM >, Christi Lui 01/25/2024 08:53:20 AM >REFERRAL FAXED TO [facility] Referral Priority Routine REASON FOR [...] Problem Status W/U Status Risk Notes Problem 338374375 Spondylosis with out myelopathy or radiculopathy, lumbar region (M47.816) Active confirmed Problem [id number] Other intervertebral disc degeneration, lumbosacral region (M51.37) Active confirmed Encounters Encounter Location Date Provider Diagnosis [facility] Office [address] [place] [address] [address] [place] [address] 01/13/2024 [facility] Spondylosis without myelopathy or radiculopathy, lumbar region [...] Referral Date Details 01/13/2024 01/13/2024, REFERRAL TO [facility] Next Appt Details Follow Up: prn, Reason: Progress Notes * KAILA OTOOLE NDOB: [birth year] (44 yo F)Acc No.[id number]:01/13/2024 Patient: KAILA MOSS Provider: ELENA Edmonds :1980 A ge:43 Y S ex:Female Date:01/13/2024 [address] [id number] Pcp:Álvaro Rodriguez Subjective: * Chief Complaints: * 1 . Low Back Pain. * HPI: G eneral Follow Up Information: Dictated by Jeanna Shukla PA-C Thank you for referring your patient to see Dr. Quiroga in surgical spine consultation at the [facility]. 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 She [...] otor vehicle accident: N o. T hird libertarian responsibility: N o. 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 M arital status M arital Status M [...] the lumbar spine were reviewed from the [facility] from 12/19/2023 that revealed L5-S1 mild degenerative disc disease and moderate degenerative facet arthropathy, right greater than left. . M RI Imaging Studies: M RI lumbar spine without contrast was reviewed from the [facility] from 12/29/2023; Impression:Mild degenerative disc desiccation T7-T8. [...] * Images: * Electronic signature of Abundio Costello PA-C on 02/25/2025 at 07:48 AM EDT Sign off status: Pending * Provider: ELENA Edmonds Date: 0 01/13/2024 Generated for Babs bishop/Taylor/Nirav on: 0 02/25/2025 07:48 AM EDT History and Physical Notes * HPI (History of Present Illness) Category Sub-Category Detail Notes Category Not es General Follow Up Information Dictated by Jeanna Shukla PA-C Thank you for referring your patient to see Dr. Arkabutla in surgical spine consultation at the [facility] [place]. 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 She [...] Start of Pain/Cause of Injury 12/18/2023 Third libertarian responsibility: No What activities make your symptoms worse ? Leaning forward, bending forward, rising from sitting, changing positions, coughing/sneezing Which of the following treat ments have you tried? Anti-Inflammatory medications, Muscle re laxants, Narcotic pain medications, Hot packs, Physical Therapy, Back/Neck exercises. Traction Have you been seen by a [place] ist in the last year? No Do [...] the lumbar spine were reviewed from the [facility] from 12/19/2023 that revealed L5-S1 mild degenerative disc disease and moderate degenerative facet arthropathy, right greater than left. MRI Imaging Studies MRI lumbar spine without contrast was reviewed from the [facility] from 12/29/2023; Impression:Mild degenerative disc desiccation T7-T8. No significant disc herniation. No central or foraminal stenosis. Consultation Request Notes Referral Date Referring Provider Referred Provider Not es 01/13/2024 Adarsh Hernandez , REFERRAL TO [facility]
--- OUTSIDE RECORDS SUMMARY | 2025-02-25 07:48 | XMS_ITS | Encounter Summary ---
Author Organization [facility] Address [address] [place] [address] Care Team Providers Care Commercial Portfolio Manager Name Role Phone Fina Lama MD Unavailable [phone] Source Comments In the event this information is protected by the Federal Confidentiality of Alcohol and Drug AbusePatient Records regulations: The Federal rules restrict any use of the information to criminally investigate or prosecute any alcohol or drug abuse patient.[facility] Encounter Details Date Type Department Care Team (Late st Contact Info) Description 09/07/2022 [place] [address] Provider, Ccf Questionnaire Submission Social History Tobacco [...] N ot on file 08/22/2022 Data from: https://www.neighborhoodatlas.medicine.[facility].edu/. Last address used for calculation [...] on filedocumented in this encounter Care Teams Commercial Portfolio Manager Relationship Specialty Start Date End Date Fina Lama MD [address] [place] [address] Referring Family Medicine 06/10/22 documented as of this encounter
--- OUTSIDE RECORDS SUMMARY | 2025-02-25 07:48 | XMS_ITS | Encounter Summary ---
Author Organization [facility] Address [address] [place] [address] Care Team Providers Care Restoration Ecologist Name Role Phone Fina Lama MD Unavailable [phone] Source Comments In the event this information is protected by the Federal Confidentiality of Alcohol and Drug AbusePatient Records regulations: The Federal rules restrict any use of the information to criminally investigate or prosecute any alcohol or drug abuse patient.[facility] Encounter Details Date Type Department Care Team (Late st Contact Info) Description 10/12/2022 [place] [address] Provider, Ccf Questionnaire Submission Social History Tobacco [...] N ot on file 08/22/2022 Data from: https://www.neighborhoodatlas.medicine.[facility].edu/. Last address used for calculation [address] [...] on filedocumented in this encounter Care Teams Restoration Ecologist Relationship Specialty Start Date End Date Fina Lama MD [address] [place] [address] Referring Family Medicine 06/10/22 documented as of this encounter
--- OUTSIDE RECORDS SUMMARY | 2025-02-25 07:48 | XMS_ITS | Encounter Summary ---
Author Organization [facility] Address [address] [place] [address] Care Team Providers Care Recreational Facilities Motel Manager Name Role Phone Fina Lama MD Unavailable [phone] Source Comments In the event this information is protected by the Federal Confidentiality of Alcohol and Drug AbusePatient Records regulations: The Federal rules restrict any use of the information to criminally investigate or prosecute any alcohol or drug abuse patient.[facility] Encounter Details Date Type Department Care Team (Late st Contact Info) Description 10/15/2022 Get Medical Advice Neurology [address] [place] [address] Provider, Ccf Question regarding MRI [...] N ot on file 08/22/2022 Data from: https://www.neighborhoodatlas.medicine.[facility].edu/. Last address used for calculation [address] [...] on filedocumented in this encounter Care Teams Recreational Facilities Motel Manager Relationship Specialty Start Date End Date Fina Lama MD [address] [place] [address] Referring Family Medicine 06/10/22 documented as of this encounter
--- OUTSIDE RECORDS SUMMARY | 2025-02-25 07:48 | XMS_ITS | Encounter Summary ---
Author Organization [facility] Address [address] [place] [address] Care Team Providers Care Reinforcing Iron Worker Helper Name Role Phone Fina Laam MD Unavailable [phone] Source Comments In the event this information is protected by the Federal Confidentiality of Alcohol and Drug AbusePatient Records regulations: The Federal rules restrict any use of the information to criminally investigate or prosecute any alcohol or drug abuse patient.[facility] Encounter Details Date Type Department Care Team (Late st Contact Info) Description 07/09/2022 Get Medical Advice Neurology [address] [place] [address] Provider, Ccf Question regarding ESEQUIEL [...] on filedocumented in this encounter Care Teams Reinforcing Iron Worker Helper Relationship Specialty Start Date End Date Fina Lama MD [address] [place] [address] Referring Family Medicine 06/10/22 documented as of this encounter
--- OUTSIDE RECORDS SUMMARY | 2025-02-25 07:48 | XMS_ITS | Clinical Summary ---
Author Organization [facility] Address [address] [place] [address] Care Team Providers Care Rn Pool Name Role Phone Álvaro Rodriguez MD Primary Care Provider [phone] Allergies No known active allergies Medications traZODone (Desyrel) 50 mg tablet Take 50 mg by mouth at bedtime. Active ergocalciferol (Vitamin D-2) 1.25 MG (89678 Units) capsule Take 1 capsule by mouth every 7 (seven) days. 09/17/2024 Active metoprolol tartrate (Lopressor) 50 mg tabletIndicatio ns:SVT (supraventricul ar tachycardia) Take 1 tablet (50 mg) by mouth two times daily. 180 tablet 3 01/15/2025 Active flecainide (Tambocor) 100 mg tabletIndicatio ns:SVT (supraventricul ar tachycardia) Take 1 tablet (100 mg) by mouth two times daily. 180 tablet 3 01/15/2025 Active Active Problems Problem Noted Date Diagnosed [...] Encounters Date Type Department Care Team Description 01/25/2025 10:15 PM EDT Ancillary Procedure [facility] [address] [place] [address] Awareness of heartbeats 01/24/2025 Orders Only [facility] [address] [facility] [place] [address] Vishal Zarate MD 01/15/2025 3:15 PM EDT Office Visit [place] [address] [place] [address] Vishal Zarate MD SVT (supraventricular tachycardia) 12/25/2024 8:40 PM EDT Ancillary Procedure [facility] [address] [place] [address] Awareness of heartbeats 12/24/2024 Orders Only [facility] [address] [place] [id number] Chace Celeste MD 12/11/2024 Refill [facility] [address] [place] [address] Vishal Zarate MD SVT (supraventricular tachycardia) 12/07/2024 Refill [facility] [address] [place] [address] Vishal Zarate MD SVT (supraventricular tachycardia) from Last 3 Months Social History Tobacco Use Types Packs/Day Years Used Date Smoking Tobacco: Never Smokeless Tobacco: Never Tobacco Cessation:Counseling Given: Not Answered [place] Safety & Environment Answer Date Rec orded [...] 2024 09/10/2020, 09/10/2020, 08/12/2020, Additional history exists Influenza Vaccine (#1) 2025 05/30/2024 Zoster Vaccines (1 of 2) 2032 HIB Vaccines Aged Out 07/27/1990 No longer eligi ble based on patient's age to complete this topic IPV Vaccines Completed 12/28/1993, 02/06, 06/29/1989, Additional history exists Hepatitis B Vaccines Completed 05/27/1999, 12/25/1998, 11/25/1998 HPV Vaccines Aged Out No longer eligi [...] this topic Medical Devices Implanted Type Area Sanding Supervisor Device Identifier Shelf Expiration Date Model / Serial / Lot [id number] Biomonitor Iiim [id number] Implanted:11/06 (Quantity not on file) Implantable Loop Recorder [id number] BIOMONITOR IIIM / [id number] / Procedures Procedure Name Priority Date/Time Associated Diagnosis Comments CARDIAC DEVICE CHECK CHECK - REMOTE Routine 02/20/2025 1:27 PM EDT Awareness of heartbeats CARDIAC DEVICE CHECK - REMOTE - LOOP RECORDER (ILR) Routine 01/24/2025 12:00 AM EDT CARDIAC DEVICE CHECK CHECK - REMOTE Routine 01/03/2025 1:15 PM EDT Awareness of heartbeats CARDIAC DEVICE CHECK CHECK - REMOTE Routine 01/03/2025 12:41 PM EDT Awareness of heartbeats CARDIAC DEVICE CHECK - REMOTE - LOOP RECORDER (ILR) Routine 12/24/2024 12:00 AM EDT from Last 3 Months Results * CARDIAC DEVICE CHECK - REMOTE - LOOP RECORDER (ILR) (02/20/2025 1:27 PM EDT) Only the most recent of3 resultswithin the time period is included. Vishal Zarate MD CV IMPLANTABLE CARDIAC DEVICE HI OCEDURES Final Result CPACS * Cardiac device check - Remote loop recorder (ILR) (01/24/2025 12:00 AM EDT) Only the most recent of2 resultswithin the time period is included. Anatomical Region Laterality Modality Other 01/24/2025 Vishal Zarate MD CV IMPLANTABLE CARDIAC DEVICE HI OCEDURES Final Result from Last 3 Months Insurance [facility] Care Teams Rn Pool Relationship Specialty Start Date End Date Álvaro Rodriguez MD [address] [place] [address] PCP - General Family Medicine 12/15/22
--- OUTSIDE RECORDS SUMMARY | 2025-02-25 07:48 | XMS_ITS | Encounter Summary ---
Author Organization [facility] Address [address] [place] [address] Care Team Providers Care Tree Girdler Name Role Phone Álvaro Rodriguez MD Primary Care Provider [phone] Reason for Visit * Reason Comments Med Refill Encounter Details Date Type Department Care Team ([facility] st Contact Info) Description 09/27/2023 Refill [facility] [address] [place] [address] Vishal Zarate MD [address] [place] [address] SVT (supraventricular tachycardia) Social History Tobacco Use Types Packs/Day Years Used Date Smoking Tobacco: Never Assessed [place] Safety & Environment Answer Date Rec orded [...] dysrhythmias documented in this encounter Care Teams Tree Girdler Relationship Specialty Start Date End Date Álvaro Rodriguez MD [address] [place] [address] PCP - General Family Medicine 12/15/22 documented as of this encounter
--- OUTSIDE RECORDS SUMMARY | 2025-02-25 07:48 | XMS_ITS | Encounter Summary ---
Author Organization [facility] Address [address] [place] [address] Care Team Providers Care Head Operator Sulfide Name Role Phone Álvaro Rodrgiuez MD Primary Care Provider [phone] Encounter Details Date Type Department Care Team (Late st Contact Info) Description 01/24/2025 Orders Only [facility] [address] [place] [address] Vishal Zarate MD [address] [place] [address] Social History Tobacco Use Types Packs/Day Years Used Date Smoking Tobacco: Never Smokeless Tobacco: Never [place] Safety & Environment Answer Date Rec [...] RECORDER (ILR) Routine 01/24/2025 12:00 AM EDT documented in this encounter Results * Cardiac device check - Remote loop recorder (ILR) (01/24/2025 12:00 AM EDT) Anatomical Region Laterality Modality Other 01/24/2025 us Vishal Zarate MD CV IMPLANTABLE CARDIAC DEVICE [place] OCEDURES Final Result documented in this encounter Visit Diagnoses Not on filedocumented in this encounter Care Teams Head Operator Sulfide Relationship Specialty Start Date End Date Álvaro Rodriguez MD [address] [place] [address] PCP - General Family Medicine 12/15/22 documented as of this encounter
--- OUTSIDE RECORDS SUMMARY | 2025-02-25 07:48 | XMS_ITS | Encounter Summary ---
Author Organization [facility] Address [address] [place] [address] Care Team Providers Care Preschool Substitute Teacher Name Role Phone Fina Lama MD Unavailable [phone] Source Comments In the event this information is protected by the Federal Confidentiality of Alcohol and Drug AbusePatient Records regulations: The Federal rules restrict any use of the information to criminally investigate or prosecute any alcohol or drug abuse patient.[facility] Encounter Details Date Type Department Care Team (Late st Contact Info) Description 08/30/2022 Get Medical Advice Cardiology [address] [place] [address] Malka Sy MD [address] [facility] [address] Question regarding EKG RHYTHM STRIP [...] on file 08/22/2022 Data from: https://www.neighborhoodatlas.medicine.[facility].edu/. Last address used for calculation [...] on filedocumented in this encounter Care Teams Preschool Substitute Teacher Relationship Specialty Start Date End Date Fina Lama MD [address] [place] [address] Referring Family Medicine 06/10/22 documented as of this encounter
--- OUTSIDE RECORDS SUMMARY | 2025-02-25 07:48 | XMS_ITS | Encounter Summary ---
Author Organization [facility] Address [address] [place] [address] Care Team Providers Care Recruiting Consultant Name Role Phone Fina Lama MD Unavailable [phone] Source Comments In the event this information is protected by the Federal Confidentiality of Alcohol and Drug AbusePatient Records regulations: The Federal rules restrict any use of the information to criminally investigate or prosecute any alcohol or drug abuse patient.[facility] Encounter Details Date Type Department Care Team (Late st Contact Info) Description 10/11/2022 Patient Msg MRI Q [address] [address] Provider, Cc MRI Social History Tobacco Use [...] N ot on file 08/22/2022 Data from: https://www.neighborhoodatlas.medicine.[facility].edu/. Last address used for calculation [...] on filedocumented in this encounter Care Teams Recruiting Consultant Relationship Specialty Start Date End Date Fina Lama MD [address] [place] [address] Referring Family Medicine 06/10/22 documented as of this encounter
--- OUTSIDE RECORDS SUMMARY | 2025-02-25 07:48 | XMS_ITS | Clinical Summary ---
Author Organization [employer] [facility] Address [id number] [address] [place] [address] Care Team Providers Care Wood Sash And Frame Carpenter Name Role Phone Fina Lama MD Primary Care Provider [phone] Allergies No known active allergies Medications metoprolol [...] Medical Devices Not on file Care Teams Wood Sash And Frame Carpenter Relationship Specialty Start Date End Date Fina Lama MD PCP - General Family Medicine 02/25/21
--- OUTSIDE RECORDS SUMMARY | 2025-02-25 07:48 | XMS_ITS | Encounter Summary ---
Author Organization [facility] Address [address] [place] [address] Care Team Providers Care Stage Producer Name Role Phone Fina Lama MD Unavailable [phone] Source Comments In the event this information is protected by the Federal Confidentiality of Alcohol and Drug AbusePatient Records regulations: The Federal rules restrict any use of the information to criminally investigate or prosecute any alcohol or drug abuse patient.[facility] Encounter Details Date Type Department Care Team (Addi st Contact Info) Description 07/27/2022 [place] [address] Provider, Ccf MRI Screening Questionnaire Completion Required [...] on filedocumented in this encounter Care Teams Stage Producer Relationship Specialty Start Date End Date Fina Lama MD [address] [facility] [place] [address] Referring Family Medicine 06/10/22 documented as of this encounter
--- OUTSIDE RECORDS SUMMARY | 2025-02-25 07:48 | XMS_ITS | Clinical Summary ---
Author Organization [facility] Address [address] [place], [place] [address] Care Team Providers Care Retail Stocker Name Role Phone Fina Lama MD Unavailable [phone] Allergies No known active allergies Medications aspirin [...] N ot on file 08/22/2022 Data from: https://www.neighborhoodatlas.medicine.[facility].edu/. Last address used for calculation [address] [...] Vaccine ( season) 04/08/202410/2020, 08/12/2020 Influenza Vaccine (#1) 2025 05/08/2022 Insurance [place] [employer] Member Subscriber Plan / Payer (Ef fective 2022-Present) Name:Jeanette Vasquez Member ID:[id number] Relation to Subscriber:Self Name:Jeanette Vasquez Subscriber ID:[id number] Payer ID:[id number] (NAIC) Group ID:Not on file Type:PPO Address: [facility] [address] [place] [id number] Care Teams Retail Stocker Relationship Specialty Start Date End Date Fina Lama MD [address] [place] [address] Referring Family Medicine 06/10/22
--- OUTSIDE RECORDS SUMMARY | 2025-02-25 07:48 | XMS_ITS | Encounter Summary ---
Author Organization [facility] Address [address] [place] [address] Care Team Providers Care Silviculture Teacher Name Role Phone Álvaro Rodriguez MD Primary Care Provider [phone] Reason for Visit * Reason Comments Med Refill Encounter Details Date Type Department Care Team ([facility] st Contact Info) Description 03/25/2023 Refill [facility] Cardiology [address] [place] [address] Courtney Medina, WATCH CRYSTAL MOLDER [address] [place] [address] Supraventricular tachycardia Social History Tobacco Use Types [...] dysrhythmias documented in this encounter Care Teams Silviculture Teacher Relationship Specialty Start Date End Date Álvaro Rodriguez MD [address] [place] [address] PCP - General Family Medicine 12/15/22 documented as of this encounter
--- OUTSIDE RECORDS SUMMARY | 2025-02-25 07:48 | XMS_ITS | Patient Health Record ---
Author Organization [facility] in [place] Address [address] [place] [address] Care Team Providers Care Wool Supplier Name Role Phone Álvaro Rodriguez MD Primary [...] Status W/U Status Risk Notes Problem Palpitations (02944499) Palpitations (R00.2) Active confirmed Problem Shortness of breath (824381364) Shortness of breath (R06.02) Active confirmed Problem Morbid obesity (545254751) Morbid obesity (E66.01) Active confirmed Problem Obstructive sleep apnea (98243838) Obstructive sleep apnea (G47.33) Active confirmed Problem Atrial tachycardia (507244508) Atrial tachycardia (I47.1) Active confirmed Problem Abnormal immunology finding (389723469) Elevated antinuclear antibody (ESEQUIEL) level (R76.8) Active confirmed Problem Exposure to second hand tobacco smoke (event) (710300094748521 03) Secondhand smoke exposure (Z77.22) Active confirmed Plan Of Treatment No Information Insurance Providers Payer Name Payer Address Payer Phone Subscriber Number Group Number Insured Name Patient Relationship to Insured Coverage Start Date Coverage End Date [employer] [address] [place] [address] [id number] Jeanette Vasquez Self - patient is the insured 3 Medical (General) History Medical History History ICD Code Obstructive sleep apnea G47.33 Atrial tachycardia I47.1 Elevated antinuclear antibody (ESEQUIEL) edgar ulloa R76.8 Palpitations R00.2 Morbid obesity E66.01 Secondhand smoke exposure Z77.22 Surgical History Surgery Date(Month/Year) left knee arthroscopy cholecystectomy hysterectomy, abdominal 12/23/2017 left ankle surgery 06/01/2019 Implantable loop recorder 11/17/2021
--- OUTSIDE RECORDS SUMMARY | 2025-02-25 07:48 | XMS_ITS | Encounter Summary ---
Author Organization [facility] Address [address] [place] [address] Care Team Providers Care Multifocal Button Inspector Name Role Phone Fnia Lama MD Unavailable [phone] Source Comments In the event this information is protected by the Federal Confidentiality of Alcohol and Drug AbusePatient Records regulations: The Federal rules restrict any use of the information to criminally investigate or prosecute any alcohol or drug abuse patient.[facility] Encounter Details Date Type Department Care Team (Late st Contact Info) Description 07/14/2022 Get Medical Advice Neurology [address] [place] [id number] Provider, [facility] Positive ESEQUIEL Social History Tobacco [...] on filedocumented in this encounter Care Teams Multifocal Button Inspector Relationship Specialty Start Date End Date Fina Lama MD [address] [facility] [place] [address] Referring Family Medicine 06/10/22 documented as of this encounter
--- OUTSIDE RECORDS SUMMARY | 2025-02-25 07:48 | XMS_ITS | Patient Health Record ---
Author Organization [facility] Address [address] [place] [address] Care Team Providers Care Light Fixture Servicer Name Role Phone Álvaro Rodriguez Primary Care [...] Problem Status W/U Status Risk Notes Problem [id number] Spondylosis with out myelopathy or radiculopathy, lumbar region (M47.816) Active confirmed Problem 46484034 Other intervertebral disc degeneration, lumbosacral region (M51.37) Active confirmed Plan Of Treatment No Information Insurance Providers Payer Name Payer Address Payer Phone Subscriber Number Group Number Insured Name Patient Relationship to Insured Coverage Start Date Coverage End Date [employer] [address] [place] [phone] [id number] Self - patient is the insured Medical (General) History Medical History History ICD Code Abnormal Heart Rhythm Gastric Reflux Kidney stones Osteoarthritis Anemia Ovarian Cysts Anxiety 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
--- OUTSIDE RECORDS SUMMARY | 2025-02-25 07:49 | XMS_ITS | CCD ---
Author Organization [facility] Care Team Providers Care Anaesthesiologist Name Role Phone MERT LAMA Referring Unavailable PAMELLA BRENNAN Attending Unavailable MIKA, PAMELLA Ang Surgeon Unavailable PAMELLA BRENNAN Admitting Unavailable [place] Procedure Practitioner Unavailab MERT Caban Primary Care [...] AGUBOSIMLEON Consulting Unavailable JAMILA PINEDO Consulting Unavailable DAINEL, DR MERT Forrest Admitting Unavailable DANIEL, DR [...] LAMA, DR MERT Forrest Primary Care Unavailable MEEANU Consulting Unavailable JENNIFER, WM Admitting Unavailable JENNIFER, [...] CORTES Attending Unavailable IRMA CORTES Attending Unavailable Mert Lama MD Primary Care Provider Cristiane Gutiérrez Attending Unavailable BrockCristiane Attending Unavailable BrockCristiane yusuf Attending Unavailable BrockCristiane Attending Unavailable Marlo PIZARRO, Ari Fuller Attending Unavailable Marlo PIZARRO, Ari Fuller Attending Unavailable MANUEL, JONNY Referring Unavailable SUE, VISHAL Referring Unavailable SUE, VISHAL Referring Unavailable SUE, VISHAL Referring Unavailable SUE, VISHAL Referring Unavailable SUE, VISHAL Referring Unavailable SUE, VISHAL Referring Unavailable MANUEL, JONNY Referring Unavailable SUE, VISHAL Referring Unavailable MANUEL, JONNY Referring Unavailable MANUEL, JONNY Referring Unavailable SUE, VISHAL Referring Unavailable SUE, VISHAL Attending Unavailable Medications Current Medications Medication Drug [...] 04-21-2022 Chronic Other aftercare (1 source) Other penitentiary (current) drug therapy; Translations: [[facility] SENIOR CARE CURRENT DRUG THERAPY] Onset: 09-06-2022 Episodic Other [...] Translations: [LOW BACK PAIN, UNSPECIFIED] Onset: 02-03-2022 Unclassified (1 source) Supraventricular tachycardia, unspecified; Translations: [Supraventricular tachycardia, unspecified] Onset: 12-15-2022 Viral infection (4 sources) COVID-19; Translations: [COVID-19] Onset: 03-16-2022 Past or Other Problems Problem Classification Problem Date Documented Da te Episodic/Chronic Abdominal pain (1 source) Lower abdominal pain, unspecified; Translations: [LOWER ABDOMINAL PAIN UNSPECIFIED] Onset: 2 Episodic Anal and rectal conditions (1 source) Other specified diseases of anus and rectum; Translations: [OTHER SPEC DISEASES ANUS AND RECTUM] Onset: 2 Episodic Blindness and vision defects (4 sources) Eye / vision finding; Translations: [Unspecified visual disturbance] Onset: 1 Episodic Calculus of urinary tract (2 sources) History of calculus of kidney; Translations: [Personal history of urinary calculi] Onset: 2 11-04-2020 Episodic Cardiac dysrhythmias (14 sources) Sinus tachycardia; Translations: [Palpitations] Onset: 2 11-26-2021 Episodic Deficiency and other anemia (4 sources) Anemia, unspecified; Translations: [ANEMIA UNSPECIFIED] Onset: 2 Episodic Gastrointestinal hemorrhage (8 sources) Melena; Translations: [Melena] Onset: 2 Episodic Genitourinary symptoms and ill-defined conditions (4 sources) History of recurrent urinary tract infection; Translations: [Nocturia] Onset: 2 11-04-2020 Episodic Headache; including migraine (3 sources) Headache; Translations: [Headaches] Onset: 1 Episodic Mood disorders (1 source) Mood disorders Onset: 1 02-25-2021 Other connective tissue disease (1 source) Fibromyalgia; Translations: [FIBROMYALGIA] Onset: 2 Episodic Other nervous system disorders (1 source) Sensory disorder; Translations: [Unspecified disturbances of skin sensation] Onset: 1 02-25-2021 Episodic Other nutritional; endocrine; and metabolic disorders (1 source) Abnormal weight gain; Translations: [ABNORMAL WEIGHT GAIN] Onset: 2 Episodic Pleurisy; pneumothorax; pulmonary collapse (1 source) Atelectasis; Translations: [ATELECTASIS] Onset: 2 Episodic Residual codes; unclassified (1 source) Family history of other endocrine, nutritional and metabolic diseases; Translations: [FAM HX OTH ENDOCRN NUTRIT METAB DZ] Onset: 2 Episodic Residual codes; unclassified (1 source) Acquired absence of other specified parts of digestive tract; Translations: [ACQ ABSENCE OTH PART DIGESTV TRACT] Onset: 2 Episodic Spondylosis; intervertebral disc disorders; other back problems (7 sources) Chronic low back pain; Translations: [Neck pain] Onset: 1 11-26-2021 Episodic Unclassified (1 source) CONTACT W/AND (SUSP) EXPOS COVID-19; Translations: [CONTACT W/AND (SUSP) EXPOS COVID-19] Onset: 2 Unclassified (1 source) LOW BACK PAIN, UNSPECIFIED; Translations: [LOW BACK PAIN, UNSPECIFIED] Onset: 2 Unclassified (1 source) Onset: 1 05-01-2021 Unclassified (1 source) Supraventricular tachycardia, unspecified; Translations: [Supraventricular tachycardia, unspecified] Onset: 5 Results Test Name Value Interpretation Reference Range Facility Office Visiton 01-15-2025 Follow-up visit [id number] Bacilio Vasquez N 1980 F Date Provider Department Center 01/15/2025 241-VISHAL ROGERS [facility] No family history on file Level of Service:58075 [place] OFFICE/OUTPATIENT ESTABLISHED LOW MDM [address] [facility] Orders Onlyon 12-24-2024 Orders Only [id number] Bacilio Vasquez N 1980 F Date Provider Department Center 12/24/2024 Shruti-MARI MCCORD [facility] C[facility] No family history on file Normal [facility] 36on 12-11-2024 36 Patient has not been seen since 2022 will need in person appointment for further refills Normal [facility] 36on 12-07-2024 36 Patient has not been seen since [address] [facility] Family Medicine Office/Clini c Noteon 11-16-2024 [...] day(s), # 14 tab(s), Refills(s) 0, Pharmacy: [facility]/pharmacy #[id number], 165.1, cm, 11/15/24 15:29:00 EDT, Height/Length Dosing, 116, kg, 11/15/24 15:29:00 EDT, Weight Dosing 2. Ear pain (H92.09: Otalgia, unspecified ear) augmentin sent in. pt to use debrox and return for ear irrigation in 7-10 days Ordered: amoxicillin-clavulanat e, = 1 tab(s), Oral, q12hr, X 7 day(s), # 14 tab(s), Refills(s) 0, Pharmacy: [facility]/pharmacy #[id number], 165.1, cm, 11/15/24 15:29:00 EDT, Height/Length [...] day(s), # 14 tab(s), Refills(s) 0, Pharmacy: [facility]/pharmacy #[id number], 165.1, cm, 11/15/24 15:29:00 EDT, Height/Length Dosing, 116, kg, 11/15/24 15:29:00 EDT, Weight Dosing 4. Non-smoker (Z78.9: Other specified health status) continue not smoking Ordered: amoxicillin-clavulanat e, = 1 tab(s), Oral, q12hr, X 7 day(s), # 14 tab(s), Refills(s) 0, Pharmacy: [facility]/pharmacy #[id number], 165.1, cm, 11/15/24 15:29:00 EDT, Height/Length [...] 50,000 intl units (1.25 mg) oral capsule, 68634 International_Unit= 1 cap(s), Oral, qWeek Allergies No [...] vaccine 09/10/2020 (more content not included)... Normal [facility] Comment on above: Result Comment: Elec tronically Signed By: Cristiane Brasher\.br\Date and Time Signed: 11/16/24 14:28 EDT 36on 11-05-2024 36 Patient will need follow up appointment for further refills has not been seen since [address] [facility] Family Medicine Office/Clini c Noteon 09-12-2024 [...] tunnel vision and muscle spasm to bilateral tenriism and sharp pain to right tenriism. Tongue/whole mouth felt like it had an [...] referral to [facility] sent Ordered: [facility] External Ambulatory Referral 2. Facial tingling (R20.2: Paresthesia of skin) pt had episode when she had facial tingling, and in her mouth. she states it felt like she put a battery to her tongue. Ordered: [facility] External Ambulatory Referral 3. Pressure in head (R51.9: Headache, unspecified) c/o constant pressure of her head. Ordered: [facility] External Ambulatory Referral 4. 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 so much that it made her glasses move up and down. referral to neurology sent Ordered: [facility] External Ambulatory Referral 5. Right upper quadrant [...] Daily, # 30 tab(s), Refills(s) 0, Pharmacy: [facility]/pharmacy #[id number], 165.1, cm, 12/19/23 13:17:00 EDT, Height/Length Dosing, 114.6, kg, 12/19/23 13:17:00 EDT, Weight Dosing [facility] External Ambulatory Referral 9. Non-smoker (Z78.9: Other specified health status) continue not smoking Ordered: meloxicam, 15 mg = 1 tab(s), Oral, Daily, # 30 tab(s), Refills(s) 0, Pharmacy: [facility]/pharmacy #[id number], 165.1, cm, 12/19/23 13:17:00 EDT, Height/Length Dosing, 114.6, kg, 12/19/23 13:17:00 EDT, Weight Dosing Orders: acetaminophen-hydrocod one, 1 tab(s), Oral, Bedtime for pain, 20 tab(s), Refill(s) 0, [facility]/pharmacy #[id number], 165.1, cm, 12/19/23 13:17:00 EDT, Height/Length Dosing, 114.6, kg, 12/19/23 13:17:00 EDT, Weight Dosing methocarbamol, See Instructions, TAKE 1 TABLET BY MOUTH EVERY 6 HOURS NEEDED FOR PAIN, # 30 tab(s), Refills(s) 0, Pharmacy: [facility]/pharmacy #[id number], 165.1, cm, 12/19/23 13:17:00 [...] Metoprolol tart (more content not included)... Normal [facility] Comment on above: Result Comment: Elec [...] for choosing us for your care. Normal [facility] ED Note-Physicianon 01-03-20 ED Note-Physician [id number]#1.00 TIFF Normal [facility] RAD - MRI Reporton RAD - MRI Report [id number]#1.0 0TIFF [facility] RAD - MRI Report [id number]#1.0 0TIFF [facility] RAD - MRI Report [id number]#1.00 TIFF [facility] RAD - MRI Report [id number]#1.00 TIFF [facility] RAD - MRI Report [id number]#1.0 0TIFF [facility] RAD - MRI Report [id number]#1.00 TIFF [facility] Physician Orderon 12-22-2023 Physician Order [id number]#1.00 TIFF Normal [facility] Provider Letteron 12-21-2023 Provider Letter December 21, 2023 [place] [address] : 1980 To Whom It May Concern, Please excuse above patient from work. Date of Illness: From: 12/19/2023 To: 12/21/2023 May Return to Work On: 12/22/2023 Sincerely, [place] [address] Normal [facility] Lab Reportson 12-20-2023 Lab Reports [id number]#1.00 TIFF Normal [facility] Physician Orderon 12-20-2023 Physician Order [id number]#1.00 TIFF Normal [facility] RAD - MISCon 12-20-2023 RAD - MISC [id number]#1.00 TIFF [facility] Ambulatory Visit Summaryon 0 12-19-2023 Ambulatory Visit [...] sciatica BMI 40.0-44.9, adult Non-smoker Pickup at [facility]/pharmacy #[id number] New meloxicam (meloxicam 15 mg Tab) 1 Tablets By Mouth Every day Low back pain with sciatica BMI 40.0-44.9, adult Non-smoker Pickup at [facility]/pharmacy #[id number] New methylPREDNISolone (Medrol 4 mg Tab) 1 Packets By Mouth As Directed Low back pain with sciatica BMI 40.0-44.9, adult Non-smoker Duration: 6 Days as directed on package labeling [id number] Unchanged metoprolol (Metoprolol tartrate 50 mg Tab) 1 Tablets By Mouth 2 times a day [facility] Information [id number] [address], [place] [phone] Medications and Immunizations Administered Given ketorolac 30 [...] for choosing us for your care. 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 Had x-ray done at [facility] for spine over a year or more [...] EDT, Routine, Start date 12/19/23 13:35:00 EDT, 12/19/23:35:00 EDT meloxicam, 15 mg = 1 tab(s), Oral, Daily, # 30 tab(s), Refills(s) 0, Pharmacy: [facility]/pharmacy #[id number], 165.1, cm, 12/19/23 13:17:00 EDT, Height/Length Dosing, 114.6, kg, 12/19/23 13:17:00 EDT, Weight Dosing methylPREDNISolone, = 1 packet(s), Oral, As Directed, as directed on package labeling, X 6 day(s), # 21 tab(s), Refills(s) 0, Pharmacy: [facility]/pharmacy #[id number], 165.1, cm, 12/19/23 13:17:00 EDT, Height/Length Dosing, 114.6, kg, 12/19/23 13:17:00 EDT, Weight Dosing 2. BMI 40.0-44.9, adult (Z68.41: Body mass index [BMI] 40.0-44.9, adult) BMI education complete Ordered: cyclobenzaprine, 15 mg, 1 cap(s), Oral, Bedtime for spasm, 20 cap(s), Refill(s) 0, [facility]/pharmacy #[id number], 165.1, cm, 12/19/23 13:17:00 EDT, Height/Length Dosing, 114.6, kg, 12/19/23 13:17:00 EDT, Weight Dosing ketorolac, 30 mg = 1 mL, Injection, IntraMuscular, Once, Stop date 12/19/23:35:00 EDT, Routine, Start date 12/19/23:35:00 EDT, 12/19/23:35:00 EDT meloxicam, 15 mg = 1 tab(s), Oral, Daily, # 30 tab(s), Refills(s) 0, Pharmacy: [facility]/pharmacy #[id number], 165.1, cm, 12/19/23 13:17:00 EDT, Height/Length Dosing, 114.6, kg, 12/19/23 13:17:00 EDT, Weight Dosing methylPREDNISolone, = 1 packet(s), Oral, As Directed, as directed on package labeling, X 6 day(s), # 21 tab(s), Refills(s) 0, Pharmacy: [facility]/pharmacy #[id number], 165.1, cm, 12/19/23 13:17:00 EDT, Height/Length Dosing, 114.6, kg, 12/19/23 13:17:00 EDT, Weight Dosing 3. Non-smoker (Z78.9: Other specified health status) continue not smoking Ordered: cyclobenzaprine, 15 mg, 1 cap(s), Oral, Bedtime for spasm, 20 cap(s), Refill(s) 0, [facility]/pharmacy #[id number], 165.1, cm, 12/19/23 13:17:00 EDT, Height/Length Dosing, 114.6, kg, 12/19/23 13:17:00 EDT, Weight Dosing ketorolac, 30 mg = 1 mL, Injection, IntraMuscular, Once, Stop date 12/19/23 13:35:00 EDT, Routine, Start date 12/19/23 13:35:00 EDT, 12/19/23 13:35:00 EDT meloxicam, 15 mg = 1 tab(s), Oral, Daily, # 30 tab(s), Refills(s) 0, Pharmacy: [facility]/pharmacy #[id number], 165.1, cm, 12/19/23 13:17:00 EDT, Height/Length Dosing, 114.6, kg, 12/19/23 13:17:00 EDT, Weight Dosing methylPREDNISolone, = 1 packet(s), Oral, As Directed, as directed on package labeling, X 6 day(s), # 21 tab(s), Refills(s) 0, Pharmacy: [facility]/pharmacy #[id number], 165.1, cm, 12/19/23 13:17:00 EDT, Height/Length Dosing, 114.6, kg, 12/19/23 13:17:00 EDT, Weight Dosing Follow-up No qualifying data available Problem List/Past Medical History Ongoing Anemia Anxiety (more content not included)... Normal [facility] Comment on above: Result Comment: Elec tronically Signed By: Cristiane Brasher\.leia\Date and Time Signed: 12/19/23 13:59 EDT Physician Orderon 12-19-2023 Physician Order [id number]#1.00 TIFF Normal [facility] MRI BRAIN WO/W IVCONon 10-14 MRI [...] cord. No mass or pathologic intradural enhancement. Furnace Checker: NARCISO Transcribe Date/Time: Oct 14 2022 8:43P Dictated by : UNIQUE ANDERSON MD This examination was interpreted and the report reviewed and electronically signed by: UNIQUE ANDERSON MD on Oct 14 2022 8:51PM EST [id number] Normal [facility] MRI CERVICAL SPINE WO/W IVCO Non [...] cord. No mass or pathologic intradural enhancement. Furnace Checker: PSCB Transcribe Date/Time: Oct 14 2022 8:43P Dictated by : UNIQUE ANDERSON MD This examination was interpreted and the report reviewed and electronically signed by: UNIQUE ANDERSON MD on Oct 14 2022 8:51PM EST [id number] Normal [facility] CBC AUTO DIFFon 09-02-2022 BASO # 0.1 103/ul Normal 0.0-0.1 [facility] Comment on above: Performed By: #### C MP, TSH, HSTROPN #### [facility] [address] [place] [address] Dr. Christos Fallon Basophils/100 WBC (Bld) 0.5 % Normal 0.2-2.0 [facility] Comment on above: Performed By: #### C MP, TSH, HSTROPN #### [facility] [address] [place] [address] Dr. Christos Fallon EO # 0.2 103/ul Normal 0.0-0.7 [facility] Comment on above: Performed By: #### C MP, TSH, HSTROPN #### [facility] [address] [place] [address] Dr. Christos Fallon Eosinophils/100 WBC (Bld) 2.3 % Normal 0.9-7.0 [facility] Comment on above: Performed By: #### C MP, TSH, HSTROPN #### [facility] [address] [place] [address] Dr. Christos Fallon Erythrocyte distribution width (RBC) [Ratio] 13.0 % Normal 11.0-15.0 [facility] Comment on above: Performed By: #### C MP, TSH, HSTROPN #### [facility] [address] [place] [address] Dr. Christos Fallon Hematocrit (Bld) [Volume fraction] 43.0 % Normal 36.0-48.0 [facility] Comment on above: Performed By: #### C MP, TSH, HSTROPN #### [facility] [address] [place] [address] Dr. Christos Fallon Hemoglobin (Bld) [Mass/Vol] 13.9 g/dL Normal 12.0-16.0 [facility] Comment on above: Performed By: #### C MP, TSH, HSTROPN #### [facility] [address] [place] [address] Dr. Christos Fallon IG # 0.03 10e3/ul Normal 0.00-0.03 [facility] Comment on above: Performed By: #### C MP, TSH, HSTROPN #### [facility] [address] [address] [address] Christos Fallon IG % 0.3 % Normal 0.0-0.5 [facility] Comment on above: Performed By: #### C MP, TSH, HSTROPN #### [facility] [address] [address] [address] Christos Fallon LYMPH # 2.8 103/ul Normal 1.2-3.8 [facility] Comment on above: Performed By: #### C MP, TSH, HSTROPN #### [facility] [address] [place] [address] Dr. Christos Fallon Lymphocytes/100 WBC (Bld) 29.6 % Normal 20.5-60.0 [facility] Comment on above: Performed By: #### C MP, TSH, HSTROPN #### [facility] [address] [place] [address] Dr. Christos Fallon MANUAL DIFF REQ NO Normal [facility] Comment on above: Performed By: #### C MP, TSH, HSTROPN #### [facility] [address] [place] [address] Dr. Chritsos Fallon MCH (RBC) [Entitic mass] 34.8 pg Critically high 26.7-34.0 [facility] Comment on above: Performed By: #### C MP, TSH, HSTROPN #### [facility] [address] [place] [address] Dr. Christos Fallon MCHC (RBC) [Mass/Vol] 32.3 g/dL Normal 29.9-35.2 [facility] Comment on above: Performed By: #### C MP, TSH, HSTROPN #### [facility] [address] [place] [address] Dr. Christos Fallon MCV (RBC) [Entitic vol] 107.5 fL Critically high 81.0-99.0 [facility] Comment on above: Performed By: #### C MP, TSH, HSTROPN #### [facility] [address] [place] [address] Dr. Christos Fallon MONO # 0.7 103/ul Normal 0.3-0.8 [facility] Comment on above: Performed By: #### C MP, TSH, HSTROPN #### [facility] [address] [place] [address] Dr. Christos Fallon Monocytes/100 WBC (Bld) 7.7 % Normal 1.7-12.0 [facility] Comment on above: Performed By: #### C MP, TSH, HSTROPN #### [facility] [address] [place] [address] Dr. Christos Fallon NEUT # 5.7 103/ul Normal 1.4-6.5 [facility] Comment on above: Performed By: #### C MP, TSH, HSTROPN #### [facility] [address] [place] [address] Dr. Christos Fallon Neutrophils/100 WBC (Bld) 59.6 % Normal 43.0-75.0 [facility] Comment on above: Performed By: #### C MP, TSH, HSTROPN #### [facility] [address] [place] [address] Dr. Christos Fallon Platelet mean volume (Bld) [Entitic vol] 9.9 fL Normal 9.5-13.5 [facility] Comment on above: Performed By: #### C MP, TSH, HSTROPN #### [facility] [address] [place] [address] Dr. Christos Fallon PLT 309 103/ul Normal 150-450 [facility] Comment on above: Performed By: #### C MP, TSH, HSTROPN #### [facility] [address] [place] [address] Dr. Christos Fallon RBC 4.00 106/ul Critically low 4.20-5.40 [facility] Comment on above: Performed By: #### C MP, TSH, HSTROPN #### [facility] [address] [place] [address] Dr. Christos Fallon WBC 9.6 103/ul Normal 4.0-11.0 [facility] Comment on above: Performed By: #### C MP, TSH, HSTROPN #### [facility] [address] [place] [address] Dr. Christos Fallon D-DIMERon 09-02-2022 D-DIMER 0.28 mg/L FEU Normal <=0.59 [facility] Comment on above: Performed By: #### C MP, TSH, HSTROPN #### [facility] [address] [place] [address] Dr. Christos Fallon D-DIMER COMMENTS SEE BELOW Normal [facility] Comment on above: Result Comment: Incr [...] By: #### C MP, TSH, HSTROPN #### [facility] [address] [place] [address] Dr. Christos Fallon PROF 14(COMP METB)on 023 Albumin [Mass/Vol] 3.8 g/dL Normal 3.4-5.0 [facility] Comment on above: Performed By: #### C MP, TSH, HSTROPN #### [facility] [address] [place] [address] Dr. Christos Fallon Albumin/Globulin [Mass ratio] 1.2 {ratio} Normal [facility] Comment on above: Performed By: #### C MP, TSH, HSTROPN #### [facility] [address] [place] [address] Dr. Christos Fallon ALP [Catalytic activity/Vol] 85 U/L Normal 46-116 [facility] Comment on above: Performed By: #### C MP, TSH, HSTROPN #### [facility] [address] [place] [address] Dr. Christos Fallon ALT [Catalytic activity/Vol] 39 U/L Normal 14-59 [facility] Comment on above: Performed By: #### C MP, TSH, HSTROPN #### [facility] [address] [address] [address] Christos Fallon Anion gap [Moles/Vol] 16.3 mmol/L Normal Th e [facility] Comment on above: Performed By: #### C MP, TSH, HSTROPN #### [facility] [address] [address] [address] Christos Fallon AST [Catalytic activity/Vol] 19 U/L Normal 15-37 [facility] Comment on above: Performed By: #### C MP, TSH, HSTROPN #### [facility] [address] [place] [address] Dr. Christos Fallon Bilirubin [Mass/Vol] 0.4 mg/dL Normal 0.2-1.0 [facility] Comment on above: Performed By: #### C MP, TSH, HSTROPN #### [facility] [address] [place] [address] Dr. Christos Fallon Calcium [Mass/Vol] 9.2 mg/dL Normal 8.5-10.1 [facility] Comment on above: Performed By: #### C MP, TSH, HSTROPN #### [facility] [address] [place] [address] Dr. Christos Fallon Chloride [Moles/Vol] 101 mmol/L Normal 98-107 [facility] Comment on above: Performed By: #### C MP, TSH, HSTROPN #### [facility] [address] [place] [address] Dr. Christos Fallon CO2 [Moles/Vol] 24.9 mmol/L Normal 21.0-32.[address] [facility] Comment on above: Performed By: #### C MP, TSH, HSTROPN #### [facility] [address] [place] [address] Dr. Christos Fallon Creatinine [Mass/Vol] 0.83 mg/dL Normal 0.55-1.02 [facility] [facility] Comment on above: Performed By: #### C MP, TSH, HSTROPN #### [facility] [address] [address] [address] Christos Fallon EGFR-AF ICELANDIC >60 Normal >=60 [facility] Comment on above: Performed By: #### C MP, TSH, HSTROPN #### [facility] [address] [address] [address] Christos Fallon EGFR-NON AF ICELANDIC >60 Normal >=60 [facility] Comment on above: Performed By: #### C MP, TSH, HSTROPN #### [facility] [address] [address] [address] Christos Fallon Globulin (S) [Mass/Vol] 3.2 g/dL Normal [facility] Comment on above: Performed By: #### C MP, TSH, HSTROPN #### [facility] [address] [place] [address] Dr. Christos Fallon Glucose [Mass/Vol] 142 mg/dL Critically high 74-106 [facility] Comment on above: Performed By: #### C MP, TSH, HSTROPN #### [facility] [address] [address] [address] Christos Fallon Potassium [Moles/Vol] 3.2 mmol/L Critically low 3.5-5.1 [facility] Comment on above: Performed By: #### C MP, TSH, HSTROPN #### [facility] [address] [address] [address] Christos Fallon Protein [Mass/Vol] 7.0 g/dL Normal 6.4-8.2 [facility] Comment on above: Performed By: #### C MP, TSH, HSTROPN #### [facility] [address] [place] [address] Dr. Christos Fallon Sodium [Moles/Vol] 139 mmol/L Normal 136-145 [facility] Comment on above: Performed By: #### C MP, TSH, HSTROPN #### [facility] [address] [place] [address] Dr. Christos Fallon Urea nitrogen [Mass/Vol] 10.0 mg/dL Normal 7.0-18.0 [facility] Comment on above: Performed By: #### C MP, TSH, HSTROPN #### [facility] [address] [place] [address] Dr. Christos Fallon Urea nitrogen/Creatinine [Mass ratio] 12.0 mg/mg Normal [facility] Comment on above: Performed By: #### C MP, TSH, HSTROPN #### [facility] [address] [place] [address] Dr. Christos Fallon PROTIMEon 09-02-2022 INR Coag (PPP) [Relative time] {INR} Normal [facility] Comment on above: Performed By: #### C MP, TSH, HSTROPN #### [facility] [address] [place] [address] Dr. Christos Fallon INR GUIDELINES SEE BELOW Normal [facility] Comment on above: Result Comment: GUALBERTO RED INR: 2.0 - 3.0 CONDITIONS NOT LISTED BELOW 2.5 - 3.5 FOR PROSTHETIC HEART VALVE REPLACEMENT 2.5 - 3.5 RECURRENT THROMBOSIS Performed By: #### C MP, TSH, HSTROPN #### [facility] [address] [place] [address] Dr. Christos Fallon PT Coag (PPP) [Time] 9.7 s Normal 9.0-11.6 [facility] Comment on above: Performed By: #### C MP, TSH, HSTROPN #### [facility] [address] [place] [address] Dr. Christos Fallon PTTon 09-02-2022 aPTT Coag (Bld) [Time] 25.9 s Normal 22.3-36.2 [facility] Comment on above: Performed By: #### C MP, TSH, HSTROPN #### [facility] [address] [place] [address] Dr. Christos Fallon TROPONIN, HIGH SENSITIVITYon 09-02-2022 HSTROP <4.0 Normal 4.0-51.3 [facility] Comment on above: Result Comment: CUT- OFF POINTS HAVE BEEN ESTABLISHED BASED ON THE FOURTH UNIVERSAL DEFINITIONS OF MYOCARDIAL INFARCTION. THE UPPER REFERENCE LIMIT (URL) OF TROPONIN, DEFINED THE 99TH PERCENTILE OF cTnI DISTRIBUTION IN A REFERENCE POPULATION, HAS BEEN CONFIRMED THE DECISION THRESHOLD FOR IN DIAGNOSIS. Performed By: #### C MP, TSH, HSTROPN #### [facility] [address] [place], [place] [address] Dr. Christos Fallon TSHon 09-02-2022 TSH 0.813 uIU/mL Normal 0.358-3.740 [facility] Comment on above: Performed By: #### C MP, TSH, HSTROPN #### [facility] [address] [place], [place] [address] Dr. Christos Fallon XR CHEST 1 Von [...] MON Date: 2022-09-02 15:09 Normal [facility] CNOVon 08-24-2022 CNOV Office Visit (BOOGIE ) KAILA VASQUEZ ([id number]) 1980 F Date Time Provider Department 08/24/22 2:00 PM JANELL SY During your visit today, we recorded the following information about you: Pulse Blood pressure Weight Height 88/minute 112/73 112.9 kg 1.626 m Janell Sy MD 08/24/2022 2:17 PM Signed [facility] SECTION OF REGIONAL CARDIOLOGY OUTPATIENT VISIT DATE [...] Cardiac work-up includes: Echocardiogram on 05/19/2020 at [facility] showed normal ejection fraction. No [...] ECG COMPLETE 4. Obesity, morbid, BMI 40.0-49.9 ([facility]) E66.01 ECG COMPLETE 5. SVT (supraventricular tachycardia) ([facility]) I47.1 6. Chronic fatigue R53.82 [...] apnea) Palpitatio (more content not included)... Normal [facility] ECG COMPLETEon 08-24-2022 ECG COMPLETE Ventricular Rate : 8 4 BPM Atrial Rate : 84 BPM P-R Interval : 166 ms QRS Duration : 92 ms Q-T Interval : 358 ms QTC Calculation(Bazett) : 423 ms Calculated P [place] : 60 degrees Calculated R [place] : 45 degrees Calculated T [place] : 45 degrees NORMAL SINUS RHYTHM INCREASED R/S RATIO IN V1, CONSIDER EARLY TRANSITION OR POSTERIOR INFARCT ABNORMAL ECG Confirmed by MEERA BOYD M.D.[id number]) on 08/28/2022 3:03:10 PM NAME : KAILA VASQUEZ PID : [id number] : 1980 Gender : Female Race : ORD : [id number] Procedure Date : Aug 24 2022 13:56:02 [...] JANELL SY Acquired by : Jose browning [facility] CNTHERAPYon 08-12-2022 [facility] CHRISTINAKAILA SHELLEY Emily ([id number]) 1980 F Date Time Provider Department 08/12/22 2:45 PM CARMEN JOHNOSN [facility] Date Time Provider Department Center 08/12/2022 2:45 PM [id number], KARA [facility] Reason for Visit: Physical Therapy [503] Primary [...] % (flush) 10 mL (BD POSIFLUSH) Normal [facility] CNTHERAPYon 08-05-2022 CNTHERAPY OT/PT/Speech Visit ([facility]) KAILA VASQUEZ ([id number]) 1980 F Date Time Provider Department 08/05/22 9:15 AM CARMEN JOHNSON [facility] Date Time Provider Department [place] 08/05/2022 9:15 AM [id number], KARA [facility] Reason for Visit: PT Eval [747] Primary [...] % (flush) 10 mL (BD POSIFLUSH) Normal [facility]-19 PCR [facility]09 SARS-CoV-2 (COVID-19) RNA LEROY+probe Ql (Unsp spec) Not detected Normal NOT DETECTED [facility] Comment on above: Result Comment: When [...] for this test is supported by the [place] of Health and Human Service's declaration that [...] used). Performed By: #### C VDAGA #### [facility] [address] [place] [address] Dr. Christos Fallon 25(OH)D3 [facility] 2021 25-hydroxyvitamin D3 [Mass/Vol] 15.8 ng/mL Low 31.0-80.0 [facility] Comment on above: Order Comment: Speci men Type: BLOOD SPECIMENOrdering Facility: [facility] Address: [address] [place] [address] [place] [address] Result Comment: Clas sification of 25 [place] Vitamin D status: Deficiency/Insufficiency: < or = 30 ng/ml. Sufficiency/Optimal Levels: 31-80 ng/mL Toxicity: > 100 ng/mL. Test performed by chemiluminescent immunoassay. Performed By: #### 1 989-3 ####[facility] LABCLIA [id number] [address] [place] ESEQUIEL BY IFA WITH REFLEXon ESEQUIEL PATTERN Nuclear fine speckled Normal Cl [facility] Comment on above: Order Comment: Bryan hernández Type: BLOOD SPECIMENOrdering Facility: [facility] Address: [address] [place] [address] Performed By: #### 2 9374-6, 93877-6, 98850-7, 29639-7, 13843-4, ANAIFR, 60547-3, 15148-6, 90309-1, 27630-0 ####[facility] LABCLIA [id number] [address] [place] ESEQUIEL TITER 1:160 Normal [facility] Comment on above: Order Comment: Bryan hernández Type: BLOOD SPECIMENOrdering Facility: [facility] Address: [address] [place] [address] Performed By: #### 2 9374-6, 59372-6, 55244-2, 32121-7, 64794-2, ANAIFR, 81727-1, 16145-2, 19150-7, 84045-5 ####[facility] LABCLIA [id number] [address] [place] Nuclear Ab IF (S) [Titer] Positive Abnormal Negative [facility] Comment on above: Order Comment: Bryan hernández Type: BLOOD SPECIMENOrdering Facility: [facility] Address: [address] [place] [address] Result Comment: Anti -nuclear antibody test is used as an aid in diagnosis of systemic autoimmune diseases. Where positive and clinically warranted, follow-up using disease-specific testing is recommended. Low positive titers are not uncommon with advanced age, certain chronic infections, and malignancies among others. Test methodology: Indirect fluorescence immunoassay (IFA) using HEp-2 cells. Performed By: #### 2 9374-6, 23240-7, 36455-6, 90805-2, 37012-6, ANAIFR, 99690-6, 27577-4, 75902-8, 87038-6 ####[facility] LABCLIA [id number] SHERIPercy [facility] [id number] [address] [place] Basic metabolic 2000 panelon 07-07-2022 Anion gap [Moles/Vol] 13 mmol/L Normal 9-18 [facility] Comment on above: Order Comment: Speci men Type: BLOOD SPECIMENOrdering Facility: [facility] Address: [address] [address] Performed By: #### 2 4321-2 ####[facility] LABCLIA [id number] [place] [address] [place] Calcium [Mass/Vol] 9.3 mg/dL Normal 8.5-10.2 [facility] Comment on above: Order Comment: Speci men Type: BLOOD SPECIMENOrdering Facility: [facility] Address: [address] [address] Performed By: #### 2 4321-2 ####[facility] LABCLIA [id number] [place] [address] [place] Chloride [Moles/Vol] 102 mmol/L Normal 97-105 [facility] Comment on above: Order Comment: Speci men Type: BLOOD SPECIMENOrdering Facility: [facility] Address: [address] [address] Performed By: #### 2 4321-2 ####[facility] LABCLIA [id number] [place] [address] [place] CO2 [Moles/Vol] 23 mmol/L Normal 22-30 [facility] Comment on above: Order Comment: Speci men Type: BLOOD SPECIMENOrdering Facility: [facility] Address: [address] [address] Performed By: #### 2 4321-2 ####[facility] LABCLIA [id number] [id number] [address] [place] Creatinine [Mass/Vol] 0.72 mg/dL Normal 0.58-0.96 [facility] Comment on above: Order Comment: Bryan hernández Type: BLOOD SPECIMENOrdering Facility: [facility] Address: [address] [place] [address] Performed By: #### 2 4321-2 ####[facility] LABCLIA [id number] [place] [address] [place] ESTIMATED GLOMERULAR FILTRATION RATE 109 mL/min/1.73m??? Normal >=60 [facility] Comment on above: Order Comment: Bryan hernández Type: BLOOD SPECIMENOrdering Facility: [facility] Address: [address] [place] [address] Result Comment: Dina mated Glomerular Filtration Rate [...] actual GFR. Performed By: #### 2 4321-2 ####[facility] LABCLIA [id number] [place] [address] [place] Glucose [Mass/Vol] 98 mg/dL Normal 74-99 [facility] Comment on above: Order Comment: Bryan hernández Type: BLOOD SPECIMENOrdering Facility: [facility] Address: [address] [place] [address] Result Comment: The [place] Diabetes Association (ADA) provides guidance for cutoff [...] Standards of Medical Care in Diabetes 2016, [place] [employer]. Diabetes Care. 2016.39(Suppl 1). Performed By: #### 2 4321-2 ####MICHELLE [facility] LABCLIA [id number] [place] [address] [place] Potassium [Moles/Vol] 4.1 mmol/L Normal 3.7-5.1 [facility] Comment on above: Order Comment: Speci men Type: BLOOD SPECIMENOrdering Facility: [facility] Address: [address] [place] [address] Performed By: #### 2 4321-2 ####MICHELLE [facility] LABCLIA [id number] [place] [address] [place] Sodium [Moles/Vol] 138 mmol/L Normal 136-144 [facility] Comment on above: Order Comment: Speci men Type: BLOOD SPECIMENOrdering Facility: [facility] Address: [address] [address] Performed By: #### 2 4321-2 ####MICHELLE [facility] LABCLIA [id number] [place] [address] [place] Urea nitrogen [Mass/Vol] 8 mg/dL Normal 7-21 [facility] Comment on above: Order Comment: Speci men Type: BLOOD SPECIMENOrdering Facility: [facility] Address: [address] [address] Performed By: #### 2 4321-2 ####[facility] LABCLIA [id number] [place] [address] [place] Anion gap [Moles/Vol] 13 mmol/L 9 - 18 mmol/L [facility] Calcium [Mass/Vol] 9.3 mg/dL 8.5 - 10. 2 mg/dL [facility] Chloride [Moles/Vol] 102 mmol/L 97 - 10 5 mmol/L [facility] CO2 [Moles/Vol] 23 mmol/L 22 - 30 mmol/L [facility] Creatinine [Mass/Vol] 0.72 mg/dL 0.58 - 0.96 mg/dL [facility] Estimated Glomerular Filtration Rate 109 mL/min/1.73m >=60 mL/min/1.73m [facility] Glucose [Mass/Vol] 98 mg/dL 74 - 99 mg/dL [facility] Potassium [Moles/Vol] 4.1 mmol/L 3.7 - 5.1 mmol/L [facility] Sodium [Moles/Vol] 138 mmol/L 136 - 144 mmol/L [facility] Urea nitrogen [Mass/Vol] 8 mg/dL 7 - 21 mg/dL [facility] CBC W Auto Differential pane l (Bld)on 07-07-2022 Basophils (Bld) [#/Vol] 0.04 10*3/uL Normal <0.11 [facility] Comment on above: Order Comment: Speci men Type: BLOOD SPECIMENOrdering Facility: [facility] Address: [address] [place] [address] Performed By: #### 5 7021-8 ####[facility] LABIA [id number] [place] [address] [place] Basophils/100 WBC (Bld) 0.5 % Normal [facility] Comment on above: Order Comment: Speci men Type: BLOOD SPECIMENOrdering Facility: [facility] Address: [address] [place] [address] Performed By: #### 5 7021-8 ####[facility] LABCLIA [id number] [place] [address] [place] Differential cell count method Nom (Bld) Auto Normal [facility] Comment on above: Order Comment: Speci men Type: BLOOD SPECIMENOrdering Facility: [facility] Address: [address] [address] Performed By: #### 5 7021-8 ####[facility] LABIA [id number] [place] [address] [place] Eosinophils (Bld) [#/Vol] 0.29 10*3/uL Normal <0.46 [facility] Comment on above: Order Comment: Speci men Type: BLOOD SPECIMENOrdering Facility: [facility] Address: [address] [place] [address] Performed By: #### 5 7021-8 ####[facility] LABCLIA [id number] [place] [address] [place] Eosinophils/100 WBC (Bld) 3.9 % Normal [facility] Comment on above: Order Comment: Speci men Type: BLOOD SPECIMENOrdering Facility: [facility] Address: [address] [place] [address] Performed By: #### 5 7021-8 ####[facility] LABCLIA [id number] [place] [address] [place] Erythrocyte distribution width (RBC) [Ratio] 12.1 % Normal 11.5-15.0 [facility] Comment on above: Order Comment: Speci men Type: BLOOD SPECIMENOrdering Facility: [facility] Address: [address] [place] [address] Performed By: #### 5 7021-8 ####[facility] LABCLIA [id number] [place] [address] [place] Hematocrit (Bld) [Volume fraction] 43.5 % Normal 36.0-46.0 [facility] Comment on above: Order Comment: Speci men Type: BLOOD SPECIMENOrdering Facility: [facility] Address: [address] [place] [address] Performed By: #### 5 7021-8 ####[facility] LABCLIA [id number] [place] [address] [place] Hemoglobin (Bld) [Mass/Vol] 14.9 g/dL Normal 11.5-15.5 [facility] Comment on above: Order Comment: Speci men Type: BLOOD SPECIMENOrdering Facility: [facility] Address: [address] [address] Performed By: #### 5 7021-8 ####MICHELLE [facility] LABCLIA [id number] [place] [address] [place] Immature granulocytes (Bld) [#/Vol] 0.03 10*3/uL Normal <0.10 [facility] Comment on above: Order Comment: Speci men Type: BLOOD SPECIMENOrdering Facility: [facility] Address: [address] [place] [address] Performed By: #### 5 7021-8 ####MICHEL[facility] LABCLIA [id number] [place] [address] [place] Immature granulocytes/100 WBC (Bld) 0.4 % Normal [facility] Comment on above: Order Comment: Speci men Type: BLOOD SPECIMENOrdering Facility: [facility] Address: [address] [place] [address] Performed By: #### 5 7021-8 ####[facility]HEL[facility] LABCLIA [id number] [place] [address] [place] Lymphocytes (Bld) [#/Vol] 1.71 10*3/uL Normal 1.00-4.00 [facility] Comment on above: Order Comment: Speci men Type: BLOOD SPECIMENOrdering Facility: [facility] Address: [address] [address] Performed By: #### 5 7021-8 ####[facility] LABCLIA [id number] [place] [address] [place] Lymphocytes/100 WBC (Bld) 23.2 % Normal [facility] Comment on above: Order Comment: Speci men Type: BLOOD SPECIMENOrdering Facility: [facility] Address: [address] [address] Performed By: #### 5 7021-8 ####[facility] LABCLIA [id number] [place] [address] [place] MCH (RBC) [Entitic mass] 34.1 pg High 26.0-34.0 [facility] Comment on above: Order Comment: Speci men Type: BLOOD SPECIMENOrdering Facility: [facility] Address: [address] [place] [address] Performed By: #### 5 7021-8 ####[facility] LABIA [id number] [address] [place] MCHC (RBC) [Mass/Vol] 34.3 g/dL Normal 30.5-36.0 [facility] Comment on above: Order Comment: Speci men Type: BLOOD SPECIMENOrdering Facility: [facility] Address: [address] [place] [address] Performed By: #### 5 7021-8 ####[facility] LABIA [id number] [place] [address] [place] MCV (RBC) [Entitic vol] 99.5 fL Normal 80.0-100.0 [facility] Comment on above: Order Comment: Speci men Type: BLOOD SPECIMENOrdering Facility: [facility] Address: [address] [place] [address] Performed By: #### 5 7021-8 ####[facility] LABIA [id number] [place] [address] [place] Monocytes (Bld) [#/Vol] 0.57 10*3/uL Normal <0.87 [facility] Comment on above: Order Comment: Speci men Type: BLOOD SPECIMENOrdering Facility: [facility] Address: [address] [place] [address] Performed By: #### 5 7021-8 ####[facility] LABCLIA [id number] [place] [address] [place] Monocytes/100 WBC (Bld) 7.7 % Normal [facility] Comment on above: Order Comment: Speci men Type: BLOOD SPECIMENOrdering Facility: [facility] Address: [address] [place] [address] Performed By: #### 5 7021-8 ####[facility] LABCLIA [id number] [place] [address] [place] Neutrophils (Bld) [#/Vol] 4.73 10*3/uL Normal 1.45-7.50 [facility] Comment on above: Order Comment: Speci men Type: BLOOD SPECIMENOrdering Facility: [facility] Address: [address] [place] [address] Performed By: #### 5 7021-8 ####[facility] LABCLIA [id number] [place] [address] [place] Neutrophils/100 WBC (Bld) 64.3 % Normal [facility] Comment on above: Order Comment: Speci men Type: BLOOD SPECIMENOrdering Facility: [facility] Address: [address] [place] [address] Performed By: #### 5 7021-8 ####[facility] LABCLIA [id number] [place] [address] [place] Nucleated RBC (Bld) [#/Vol] 10*3/uL Normal <0.01 [facility] Comment on above: Order Comment: Speci men Type: BLOOD SPECIMENOrdering Facility: [facility] Address: [address] [place] [address] Performed By: #### 5 7021-8 ####[facility] LABCLIA [id number] [place] [address] [place] Nucleated RBC/100 WBC (Bld) [Ratio] 0.0 /100 WBC Normal [facility] Comment on above: Order Comment: Speci men Type: BLOOD SPECIMENOrdering Facility: [facility] Address: [address] [place] [address] Performed By: #### 5 7021-8 ####MICHELLE [facility] LABIA [id number] [place] [address] [place] Platelet mean volume (Bld) [Entitic vol] 9.6 fL Normal 9.0-12.7 [facility] Comment on above: Order Comment: Speci men Type: BLOOD SPECIMENOrdering Facility: [facility] Address: [address] [place] [address] Performed By: #### 5 7021-8 ####[facility] LABIA [id number] [place] [address] [place] Platelets (Bld) [#/Vol] 277 10*3/uL Normal 150-400 [facility] Comment on above: Order Comment: Speci men Type: BLOOD SPECIMENOrdering Facility: [facility] Address: [address] [place] [address] Performed By: #### 5 7021-8 ####[facility]HEL[facility] LABIA [id number] [place] [address] [place] RBC (Bld) [#/Vol] 4.37 10*6/uL Normal 3.90-5.20 [facility] Comment on above: Order Comment: Speci men Type: BLOOD SPECIMENOrdering Facility: [facility] Address: [address] [place] [address] Performed By: #### 5 7021-8 ####[facility] LABIA [id number] [place] [address] [place] WBC (Bld) [#/Vol] 7.37 10*3/uL Normal 3.70-11.00 [facility] Comment on above: Order Comment: Speci men Type: BLOOD SPECIMENOrdering Facility: [facility] Address: [place] [address] Performed By: #### 5 7021-8 ####MICHELLE [facility] LABCLIA [id number] [place] [id number] [place] Basophils (Bld) [#/Vol] 0.04 10*3/uL <0.11 k/uL [facility] Basophils/100 WBC (Bld) 0.5 % [facility] Differential cell count method Nom (Bld) Auto [facility] Eosinophils (Bld) [#/Vol] 0.29 10*3/uL <0.46 k/uL [facility] Eosinophils/100 WBC (Bld) 3.9 % [facility] Erythrocyte distribution width (RBC) [Ratio] 12.1 % 11.5 - 15.0 % [facility] Hematocrit (Bld) [Volume fraction] 43.5 % 36.0 - 46.0 % [facility] Hemoglobin (Bld) [Mass/Vol] 14.9 g/dL 11.5 - 15.5 g/dL [facility] Immature granulocytes (Bld) [#/Vol] 0.03 10*3/uL <0.10 k/uL [facility] Immature granulocytes/100 WBC (Bld) 0.4 % [facility] Lymphocytes (Bld) [#/Vol] 1.71 10*3/uL 1.00 - 4.00 k/uL [facility] Lymphocytes/100 WBC (Bld) 23.2 % [facility] MCH (RBC) [Entitic mass] 34.1 pg High 26.0 - 34.0 pg [facility] MCHC (RBC) [Mass/Vol] 34.3 g/dL 30.5 - 36.0 g/dL [facility] MCV (RBC) [Entitic vol] 99.5 fL 80.0 - 100.0 fL [facility] Monocytes (Bld) [#/Vol] 0.57 10*3/uL <0.87 k/uL [facility] Monocytes/100 WBC (Bld) 7.7 % [facility] Neutrophils (Bld) [#/Vol] 4.73 10*3/uL 1.45 - 7.50 k/uL [facility] Neutrophils/100 WBC (Bld) 64.3 % [facility] Nucleated RBC (Bld) [#/Vol] <0.01 k/uL [facility] Nucleated RBC/100 WBC (Bld) [Ratio] 0.0 /100 WBC [facility] Platelet mean volume (Bld) [Entitic vol] 9.6 fL 9.0 - 12.7 fL [facility] Platelets (Bld) [#/Vol] 277 10*3/uL 150 - 400 k/uL [facility] RBC (Bld) [#/Vol] 4.37 10*6/uL 3.90 - 5.2 0 m/uL [facility] WBC (Bld) [#/Vol] 7.37 10*3/uL 3.70 - 11. 00 k/uL [facility] CNOVon 07-07-2022 CNOV Office Visit (NEUF ) KAILA VASQUEZ ([id number]) 1980 F Date Time Provider Department 07/07/22 8:00 AM GLENROY SYED During your visit today, we recorded the following information about you: Pulse Blood pressure Weight Height 82/minute 134/88 112 kg 1.626 m Glenroy Syed APRN.CNP 07/07/2022 12:28 PM Signed [facility] General Neurology New Patient Evaluation CHIEF COMPLAINT: [...] over a month. 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 A couple times a month she gets [...] tobacco: Never (more content not included)... Normal [facility] KAILA VASQUEZ ([id number]) 1980 F Date Time Provider Department 07/07/22 GLENROY SYED During your visit today, we recorded the following information about you: Cinthya Damian 07/07/2022 8:52 AM Signed Received medical records from [facility]. Uploaded to chart and forwarded [...] Status:Closed by CINTHYA SALGADO on 07/19/22 Normal [facility] Centromere Ab IF Ql (S)on Centromere Ab Qn (S) <0.2 Normal <1.0 [facility] Comment on above: Order Comment: Bryan hernández Type: BLOOD SPECIMENOrdering Facility: [facility] Address: [address] [address] Result Comment: Anti -centromere antibody is used as in aid in diagnosis of systemic sclerosis. Clinical correlation is required. Test Methodology: Multiplex flow immunoassay. Performed By: #### 2 9374-6, 54420-2, 91055-0, 96735-4, 82591-2, ANAIFR, 04689-2, 59789-1, 73565-1, 68091-0 ####[facility] LABIA [id number] [address] OF [facility] CENTROMERE AB QUAL Negative Normal Negative [facility] Comment on above: Order Comment: Bryan hernández Type: BLOOD SPECIMENOrdering Facility: [facility] Address: [address] [address] Performed By: #### 2 9374-6, 64294-5, 37370-6, 26224-6, 74416-0, ANAIFR, 98852-5, 23303-9, 59941-4, 24512-9 ####[facility] LABCLIA [id number] [address] [place] Chromatin Ab Qnon 07-07-2022 CHROMATIN AB QUAL Negative Normal Negative [facility] Comment on above: Order Comment: Speci men Type: BLOOD SPECIMENOrdering Facility: [facility] Address: [address] [place] [address] Performed By: #### 2 9374-6, 27012-3, 78864-2, 26987-3, 70027-9, ANAIFR, 78679-9, 93396-8, 64028-0, 50198-2 ####[facility] LABCLIA [id number] [place] [address] [place] Chromatin Ab SerPl-aCncon Chromatin Ab Qn <0.2 Normal <1.0 [facility] Comment on above: Order Comment: Speci men Type: BLOOD SPECIMENOrdering Facility: [facility] Address: [address] [place] [address] Result Comment: Test Methodology: Multiplex flow immunoassay. Performed By: #### 2 9374-6, 85168-1, 44264-2, 25522-7, 19574-3, ANAIFR, 18962-5, 23844-0, 94780-5, 36542-1 ####[facility] LABCLIA [id number] [address] [place] KAMRAN Jo1 Ab Ser-aCncon 2021 Radha-1 extractable nuclear Ab Qn (S) <0.2 Normal <1.0 [facility] Comment on above: Order Comment: Speci men Type: BLOOD SPECIMENOrdering Facility: [facility] Address: [address] [place] [address] Performed By: #### 2 9374-6, 90809-9, 26455-0, 39852-1, 10054-5, ANAIFR, 07460-5, 72047-4, 00456-2, 71931-4 ####[facility] LABCLIA [id number] [address] [place] KAMRAN PUBLIC HEALTH SANITARIAN TECHNICIAN Ab Ser-aCncon 2021 Ribonucleoprotein extractable nuclear Ab Qn (S) <0.2 Normal <1.0 [facility] Comment on above: Order Comment: Speci men Type: BLOOD SPECIMENOrdering Facility: [facility] Address: [address] [place] [address] Performed By: #### 2 9374-6, 83359-8, 80690-8, 35069-4, 17362-2, ANAIFR, 96820-8, 22540-1, 44347-4, 78336-6 ####[facility] LABIA [id number] [address] [place] KAMRAN SM IgG Ser-aCncon 2021 Osborne extractable nuclear IgG Qn (S) <0.2 Normal <1.0 [facility] Comment on above: Order Comment: Speci men Type: BLOOD SPECIMENOrdering Facility: [facility] Address: [address] [place] [address] Performed By: #### 2 9374-6, 33434-0, 20705-0, 23764-6, 24703-1, ANAIFR, 83596-6, 78262-0, 77131-0, 10878-3 ####[facility] LABIA [id number] [address] [place] KAMRAN SS-A Ab Ser-aCncon 07-07 Sjogrens syndrome-A extractable nuclear Ab Qn (S) 0.3 AI Normal <1.0 [facility] Comment on above: Order Comment: Speci men Type: BLOOD SPECIMENOrdering Facility: [facility] Address: [address] [place] [address] Result Comment: Test Methodology: Multiplex flow immunoassay. Performed By: #### 2 9374-6, 56380-4, 21895-5, 26911-4, 66211-1, ANAIFR, 29358-0, 45495-4, 44082-6, 70665-4 ####[facility] LABIA [id number] [place] [address] [place] KAMRAN SS-B Ab Ser-aCncon 07-07 Sjogrens syndrome-B extractable nuclear Ab Qn (S) <0.2 Normal <1.0 [facility] Comment on above: Order Comment: Speci men Type: BLOOD SPECIMENOrdering Facility: [facility] Address: [address] [address] Result Comment: Anti -SSB (anti-La) antibody is used as an aid in diagnosis of a variety of systemic autoimmune diseases, especially for Sjogren's syndrome and systemic lupus erythematosus. Clinical correlation is required. Test Methodology: Multiplex flow immunoassay. Performed By: #### 2 9374-6, 80948-4, 56089-4, 69404-3, 66045-4, ANAIFR, 17353-2, 34593-1, 21920-7, 91403-8 ####[facility] [id number] [place] [address] [place] Radha-1 extractable nuclear Ab Qn (S)on 07-07-2022 RADHA 1 ANTIBODY QUAL Negative Normal Negative [facility] Comment on above: Order Comment: Davidi men Type: BLOOD SPECIMENOrdering Facility: [facility] Address: [address] [place] [address] Result Comment: Anti -RADHA-1 antibody is used as an aid in diagnosis of polymyositis and dermatomyositis especially with pulmonary involvement. A negative result cannot rule out polymyositis or dermatomyositis. Clinical correlation is required. Test Methodology: Multiplex flow immunoassay. Performed By: #### 2 9374-6, 06152-9, 39681-7, 96127-6, 03878-8, ANAIFR, 09062-6, 30319-2, 17441-4, 80601-4 ####[facility] LABIA [id number] [place] [address] [place] Ribonucleoprotein extractabl e nuclear Ab Qn (S)on 07-07-2022 ANTI-PUBLIC HEALTH SANITARIAN TECHNICIAN QUAL Negative Normal Negative [facility] Comment on above: Order Comment: Speci men Type: BLOOD SPECIMENOrdering Facility: [facility] Address: [address] [place] [address] Performed By: #### 2 9374-6, 55872-8, 94900-3, 18483-9, 82651-2, ANAIFR, 74930-7, 25784-0, 53740-1, 51300-4 ####[facility] LABCLIA [id number] [place] [address] [place] RIBOSOMAL PUBLIC HEALTH SANITARIAN TECHNICIAN QUAL Negative Normal Negative [facility] Comment on above: Order Comment: Speci men Type: BLOOD SPECIMENOrdering Facility: [facility] Address: [address] [place] [address] Result Comment: Anti -Ribosomal RNA (Ribosomal P) antibody is used as an aid in diagnosis of systemic autoimmune diseases especially systemic lupus erythematosus and mixed connective tissue disease. Cross-reactivity with Anti-osborne antibody is not uncommon. Clinical correlation is required. Test Methodology: Multiplex flow immunoassay. Performed By: #### 2 9374-6, 65678-6, 56853-4, 16550-3, 47318-3, ANAIFR, 44149-8, 55694-9, 22068-3, 78606-1 ####[facility] LABCLIA [id number] [place] [address] [place] SCL-70 extractable nuclear I gG IA Qn (S)on 07-07-2022 SCLERODERMA AB QUAL Negative Normal Negative [facility] Comment on above: Order Comment: Speci men Type: BLOOD SPECIMENOrdering Facility: [facility] Address: [address] [place] [address] Performed By: #### 2 9374-6, 37436-2, 25107-9, 12816-2, 04770-2, ANAIFR, 37066-3, 20132-4, 51616-2, 02675-9 ####[facility] LABCLIA [id number] [place] [address] [place] SCLERODERMA IGG AB <0.2 Normal <1.0 [facility] Comment on above: Order Comment: Speci men Type: BLOOD SPECIMENOrdering Facility: [facility] Address: [address] [place] [address] Result Comment: Scl- 70/Scleroderma antibody test is used as an aid in diagnosis of systemic sclerosis especially the diffuse cutaneous form. A negative result cannot rule out systemic sclerosis. The final interpretation should consider clinical picture and other test results such as anti-centromere antibody. Test Methodology: Multiplex flow immunoassay. Performed By: #### 2 9374-6, 19260-4, 58977-5, 78520-2, 85064-4, ANAIFR, 64077-3, 21757-8, 18193-1, 88911-2 ####[facility] [id number] [place] [address] [place] Sjogrens syndrome-A extracta ble nuclear Ab Qn (S)on 07-07-2022 SSA ANTIBODY QUAL Negative Normal Negative [facility] Comment on above: Order Comment: Speci men Type: BLOOD SPECIMENOrdering Facility: [facility] Address: [address] [place] [address] Performed By: #### 2 9374-6, 24871-6, 31893-2, 36424-4, 16289-2, ANAIFR, 11472-2, 59096-0, 01153-5, 62079-0 ####[facility] LABIA [id number] [place] [address] [place] Sjogrens syndrome-B extracta ble nuclear Ab Qn (S)on 07-07-2022 SSB ANTIBODY QUAL Negative Normal Negative [facility] Comment on above: Order Comment: Speci men Type: BLOOD SPECIMENOrdering Facility: [facility] Address: [address] [place] [address] Performed By: #### 2 9374-6, 69392-6, 12425-2, 91842-8, 97204-2, ANAIFR, 05174-9, 14837-8, 11158-7, 58092-4 ####[facility] LABIA [id number] [address] [place] Osborne extractable nuclear Ig G Qn (S)on 07-07-2022 SM ANTIBODY QUAL Negative Normal Negative Gretchen palmer [facility] Comment on above: Order Comment: Speci betty Type: BLOOD SPECIMENOrdering Facility: [facility] Address: [address] [place], [place] [id number] Result Comment: Anti -Sm (Osborne) antibody is used as an aid in diagnosis of systemic lupus erythematosus and its presence is associated with renal disease. A negative result cannot rule out systemic lupus erythematosus. Clinical correlation is required. Test Methodology: Multiplex flow immunoassay. Performed By: #### 2 9374-6, 05036-3, 60925-1, 68715-1, 04680-9, ANAIFR, 64159-2, 26196-9, 25879-1, 18876-6 ####[facility] LABIA [id number] [place] [address] [place] TSH BLDon 07-07-2022 TSH Qn 0.824 m[IU]/L 0.270 - 4.200 mIU/L [facility] TSH SerPl-aCncon 07-07-2022 TSH Qn 0.824 m[IU]/L Normal 0.270-4.200 [facility] Comment on above: Order Comment: Bryan hernández Type: BLOOD SPECIMENOrdering Facility: [facility] Address: [address] [place] [id number] Result Comment: If t he patient is , TSH reference range varies by gestational period: First Trimester (weeks 9-12): 0.180-2.990 mIU/L Second Trimester: 0.110-3.980 mIU/L Third Trimester: 0.480-4.710 mIU/L Eliezer Bangura et al. A Practical Approach for the Verifications and Determination of Site- and Trimester-Specific Reference Intervals for Thyroid Function tests in . Thyroid, 2019:29:3:412-420. Rob E, et al. 2017 Guidelines of the [place] [employer] for the Diagnosis and Management of Thyroid Disease during and the . Thyroid, 2017:27:3:315-389. Performed By: #### 3 016-3, 2132-04 ####[facility] LABCLIA [id number] [place] [address] [place] VITAMIN B12 BLOODon 07-07-20 22 Cobalamin (Vitamin B12) [Mass/Vol] 618 pg/mL 232 - 1,245 pg/mL [facility] Vit B12 SerPl-mCncon 022 Cobalamin (Vitamin B12) [Mass/Vol] 618 pg/mL Normal 232-1245 [facility] Comment on above: Order Comment: Speci men Type: BLOOD SPECIMENOrdering Facility: [facility] Address: [address] [place] [address] Performed By: #### 3 016-3, 2132-04 ####[facility] LABIA [id number] [place] [address] [place] dsDNA Ab Ser IA-[facility]Cn[facility] 07-07 DNA double strand Ab IA Qn (S) <12 Normal <30 [facility] Comment on above: Order Comment: Speci men Type: BLOOD SPECIMENOrdering Facility: [facility] Address: [address] [place] [address] Result Comment: Nega tive for ds DNA Antibodies. <30 IU/mL Negative 30-74 IU/mL Equivocal >74 IU/mL Positive Performed By: #### 2 9374-6, 81338-8, 44661-0, 89583-1, 95466-3, ANAIFR, 79900-8, 20724-1, 50336-8, 22880-6 ####[facility] LABCLIA [id number] [address] [place] HLA B 27on 04-26-2022 HLA-B27 Negative Normal [facility] Comment on above: Result Comment: HLA- B*27 Negative B27 allele interpretation for all loci based on IMGT/HLA database version 3.44 This test was developed and its performance characteristics determined by [facility]. It has not been cleared or approved by the Food and Drug Administration. [facility] CLIA ID Number [id number] . This test was performed using PCR (Polymerase Chain Reaction)/SSOP (Sequence Specific Oligonucleotide Probes) technique. SBT (Sequence Based Typing) and/or SSP (Sequence Specific Primers) may be used as supplemental methods when necessary. Please contact [facility] Customer Service at if you have any questions. . Director of [facility] Laboratory Dr Abdiaziz Shook, PhD Performed By: #### C VDAGA #### [facility] [address] [place] [address] Dr. Christos Fallon 25-HYDROXY VIT D (D2+D3 FRA ) LC/MS-MSon 04-23-2022 25-Hydroxy, Vitamin D 26 ng/mL Critically low [facility] Comment on above: Result Comment: Refe rence Range: All Ages: Target levels 30 - 100 Performed By: #### C MP, TSH, HSTROPN #### [facility] [address] [place] [address] Dr. Christos Fallon 25-Hydroxy, Vitamin D-2 <1.0 Normal [facility] Comment on above: Result Comment: This test was developed and its performance characteristics determined by [facility]. It has not been cleared or approved by the Food and Drug Administration. Performed By: #### C MP, TSH, HSTROPN #### [facility] [address] [address] [address] Christos Fallon 25-Hydroxy, Vitamin D-3 26 ng/mL Normal [facility] Comment on above: Result Comment: This test was developed and its performance characteristics determined by [facility]. It has not been cleared or approved by the Food and Drug Administration. Performed By: #### C MP, TSH, HSTROPN #### [facility] [address] [place] [address] Dr. Christos Fallon REVERSE T3on 04-20-2022 Reverse T3, Serum 11.2 ng/dL Normal 9.2-24.1 [facility] Comment on above: Result Comment: This test was developed and its performance characteristics determined by [facility]. It has not been cleared or approved by the Food and Drug Administration. Performed By: #### C VDAGA #### [facility] [address] [place] [address] Dr. Christos Fallon THYROID ANTIBODIESon Thyroglobulin Antibody <1.0 Normal 0.0-0.9 [facility] Comment on above: Result Comment: Thyr oglobulin Antibody measured by el? Methodology Performed By: #### C VDAGA #### [facility] [address] [place] [address] Dr. Christos Fallon Thyroid Peroxidase (TPO) Ab 11 IU/mL Normal 0-34 [facility] Comment on above: Performed By: #### C VDAGA #### [facility] [address] [place] [address] Dr. Christos Fallon ANTISTREPTOLYSIN O AB (ASO)o n 04-16-2022 Antistreptolysin O Ab 21.8 IU/mL Normal 0.0-200.0 [facility] Comment on above: Performed By: #### C MP, TSH, HSTROPN #### [facility] [address] [place] [address] Dr. Christos Fallon T3, TOTAL (TRIIODOTHYRONINE) on 04-16-2022 T3, TOTAL 115 ng/dL Normal 71-180 [facility] Comment on above: Performed By: #### C MP, TSH, HSTROPN #### [facility] [address] [place] [address] Dr. Christos Fallon FREE T3on 04-14-2022 FREE T3 2.46 pg/mlL Normal 2.18-3.98 [facility] Comment on above: Performed By: #### C MP, TSH, HSTROPN #### [facility] [address] [place] [address] Dr. Christos Fallon FREE T4on 04-14-2022 Free T4 [Mass/Vol] 0.88 ng/dL Normal 0.76-1.46 [facility] Comment on above: Performed By: #### C VDAGA #### [facility] [address] [place] [address] Dr. Christos Fallon TSHon 04-14-2022 TSH 1.027 uIU/mL Normal 0.358-3.740 [facility] Comment on above: Performed By: #### C MP, TSH, HSTROPN #### [facility] [address] [place] [address] Dr. Christos Fallon CBC AUTO DIFFon 03-22-2022 BASO # 0.1 103/ul Normal 0.0-0.1 [facility] Comment on above: Performed By: #### C MP, TSH, HSTROPN #### [facility] [address] [place] [address] Dr. Christos Fallon Basophils/100 WBC (Bld) 0.7 % Normal 0.2-2.0 [facility] Comment on above: Performed By: #### C MP, TSH, HSTROPN #### [facility] [address] [place] [address] Dr. Christos Fallon EO # 0.3 103/ul Normal 0.0-0.7 [facility] Comment on above: Performed By: #### C MP, TSH, HSTROPN #### [facility] [address] [place] [address] Dr. Christos Fallon Eosinophils/100 WBC (Bld) 3.4 % Normal 0.9-7.0 [facility] Comment on above: Performed By: #### C MP, TSH, HSTROPN #### [facility] [address] [place] [address] Dr. Christos Fallon Erythrocyte distribution width (RBC) [Ratio] 12.5 % Normal 11.0-15.0 [facility] Comment on above: Performed By: #### C MP, TSH, HSTROPN #### [facility] [address] [place] [address] Dr. Christos Fallon Hematocrit (Bld) [Volume fraction] 41.3 % Normal 36.0-48.0 [facility] Comment on above: Performed By: #### C MP, TSH, HSTROPN #### [facility] [address] [place] [address] Dr. Christos Fallon Hemoglobin (Bld) [Mass/Vol] 14.2 g/dL Normal 12.0-16.0 [facility] Comment on above: Performed By: #### C MP, TSH, HSTROPN #### [facility] [address] [place] [address] Dr. Christos Fallon IG # 0.03 10e3/ul Normal 0.00-0.03 [facility] Comment on above: Performed By: #### C MP, TSH, HSTROPN #### [facility] [address] [place] [address] Dr. Christos Fallon IG % 0.4 % Normal 0.0-0.5 [facility] Comment on above: Performed By: #### C MP, TSH, HSTROPN #### [facility] [address] [place] [address] Dr. Christos Fallon LYMPH # 2.3 103/ul Normal 1.2-3.8 [facility] Comment on above: Performed By: #### C MP, TSH, HSTROPN #### [facility] [address] [place] [address] Dr. Christos Fallon Lymphocytes/100 WBC (Bld) 31.3 % Normal 20.5-60.0 [facility] Comment on above: Performed By: #### C MP, TSH, HSTROPN #### [facility] [address] [place] [address] Dr. Christos Fallon MANUAL DIFF REQ NO Normal [facility] Comment on above: Performed By: #### C MP, TSH, HSTROPN #### [facility] [address] [place] [address] Dr. Christos Fallon MCH (RBC) [Entitic mass] 34.8 pg Critically high 26.7-34.0 [facility] Comment on above: Performed By: #### C MP, TSH, HSTROPN #### [facility] [address] [place] [address] Dr. Christos Fallon MCHC (RBC) [Mass/Vol] 34.4 g/dL Normal 29.9-35.2 [facility] Comment on above: Performed By: #### C MP, TSH, HSTROPN #### [facility] [address] [place] [address] Dr. Christos Fallon MCV (RBC) [Entitic vol] 101.2 fL Critically high 81.0-99.0 [facility] Comment on above: Performed By: #### C MP, TSH, HSTROPN #### [facility] [address] [place] [address] Dr. Christos Fallon MONO # 0.9 103/ul Critically high 0.3-0.8 [facility] Comment on above: Performed By: #### C MP, TSH, HSTROPN #### [facility] [address] [place] [address] Dr. Christos Fallon Monocytes/100 WBC (Bld) 12.0 % Normal 1.7-12.0 [facility] Comment on above: Performed By: #### C MP, TSH, HSTROPN #### [facility] [address] [place] [address] Dr. Christos Fallon NEUT # 3.9 103/ul Normal 1.4-6.5 [facility] Comment on above: Performed By: #### C MP, TSH, HSTROPN #### [facility] [address] [place] [address] Dr. Christos Fallon Neutrophils/100 WBC (Bld) 52.2 % Normal 43.0-75.0 [facility] Comment on above: Performed By: #### C MP, TSH, HSTROPN #### [facility] [address] [place] [address] Dr. Christos Fallon Platelet mean volume (Bld) [Entitic vol] 9.7 fL Normal 9.5-13.5 [facility] Comment on above: Performed By: #### C MP, TSH, HSTROPN #### [facility] [address] [place] [address] Dr. Christos Fallon PLT 296 103/ul Normal 150-450 [facility] Comment on above: Performed By: #### C MP, TSH, HSTROPN #### [facility] [address] [address] [address] Christos Fallon RBC 4.08 106/ul Critically low 4.20-5.40 [facility] Comment on above: Performed By: #### C MP, TSH, HSTROPN #### [facility] [address] [address] [address] Christos Fallon WBC 7.4 103/ul Normal 4.0-11.0 [facility] Comment on above: Performed By: #### C MP, TSH, HSTROPN #### [facility] [address] HEAD WO CONon [...] PAL WETZEL Date: 2022-03-22 17:41 Normal [facility] ER URINE PROFILEon 2 Bilirubin Ql (U) Negative Normal NEGATIVE [facility] Comment on above: Performed By: #### C VDAGA #### [facility] [address] [address] [address] Christos Fallon Clarity (U) CLOUDY Abnormal CLEAR [facility] Comment on above: Performed By: #### C VDAGA #### [facility] [address] [place] [address] Dr. Christos Fallon Color (U) LT. YELLOW Normal YELLOW [facility] Comment on above: Performed By: #### C VDAGA #### [facility] [address] [place] [address] Dr. Christos SOSAAHPercy A micrscopic examination will be performed if indicated. Normal [facility] Comment on above: Performed By: #### C VDAGA #### [facility] [address] [place] [address] Dr. Christos Fallon Glucose Ql (U) Negative Normal NEGATIVE [facility] Comment on above: Performed By: #### C VDAGA #### [facility] [address] [place] [address] Dr. Christos Fallon Hemoglobin Ql (U) Negative Normal NEGATIVE [facility] Comment on above: Performed By: #### C VDAGA #### [facility] [address] [place] [address] Dr. Christos Fallon Ketones Ql (U) Negative Normal NEGATIVE [facility] Comment on above: Performed By: #### C VDAGA #### [facility] [address] [place] [address] Dr. Christos Fallon LEUKOCYTES Negative Normal NEGATIVE [facility] Comment on above: Performed By: #### C VDAGA #### [facility] [address] [place] [address] Dr. Christos Fallon Nitrite Ql (U) Negative Normal NEGATIVE [facility] Comment on above: Performed By: #### C VDAGA #### [facility] [address] [place] [address] Dr. Christos Fallon pH (U) 6.0 [pH] Normal 5-9 [facility] Comment on above: Performed By: #### C VDAGA #### [facility] [address] [place] [address] Dr. Christos Fallon SPEC GRAVITY 1.010 Normal 1.005-<=1.02 5 [facility] Comment on above: Performed By: #### C VDAGA #### [facility] [address] [place] [address] Dr. Christos Fallon UA PROTEIN Negative Normal NEGATIVE/ TRACE [facility] Comment on above: Performed By: #### C VDAGA #### [facility] [address] [place] [address] Dr. Christos Fallon UR MICRO IND NOT INDICATED Normal [facility] Comment on above: Performed By: #### C VDAGA #### [facility] [address] [place] [address] Dr. Christos Fallon Urobilinogen Qn (U) 0.2 {Peyman'U}/dL Normal 0.2 - 1. 0 [facility] Comment on above: Performed By: #### C VDAGA #### [facility] [address] [place] [address] Dr. Christso Fallon PROF 14(COMP METB)on 022 Albumin [Mass/Vol] 3.6 g/dL Normal 3.4-5.0 [facility] Comment on above: Performed By: #### C MP, HSTROPN, TSH #### [facility] [address] [place] [address] Dr. Christos Fallon Albumin/Globulin [Mass ratio] 0.9 {ratio} Normal [facility] Comment on above: Performed By: #### C MP, HSTROPN, TSH #### [facility] [address] [place] [address] Dr. Christos Fallon ALP [Catalytic activity/Vol] 83 U/L Normal 46-116 [facility] Comment on above: Performed By: #### C MP, HSTROPN, TSH #### [facility] [address] [place] [address] Dr. Christos Fallon ALT [Catalytic activity/Vol] 32 U/L Normal 14-59 [facility] Comment on above: Performed By: #### C MP, HSTROPN, TSH #### [facility] [address] [place] [address] Dr. Christos Fallon Anion gap [Moles/Vol] 15.4 mmol/L Normal Th e [facility] Comment on above: Performed By: #### C RAY, HSTROPN, TSH #### [facility] [address] [address] [address] Christos Fallon AST [Catalytic activity/Vol] 15 U/L Normal 15-37 [facility] Comment on above: Performed By: #### C RAY, HSTROPN, TSH #### [facility] [address] [address] [address] Christos Fallon Bilirubin [Mass/Vol] 0.3 mg/dL Normal 0.2-1.0 [facility] Comment on above: Performed By: #### C RAY, HSTROPN, TSH #### [facility] [address] [place] [address] Dr. Christos Fallon Calcium [Mass/Vol] 8.9 mg/dL Normal 8.5-10.1 [facility] Comment on above: Performed By: #### C RAY, HSTROPN, TSH #### [facility] [address] [place] [address] Dr. Christos Fallon Chloride [Moles/Vol] 102 mmol/L Normal 98-107 [facility] Comment on above: Performed By: #### C RAY, HSTROPN, TSH #### [facility] [address] [place] [address] Dr. Christos Fallon CO2 [Moles/Vol] 22.7 mmol/L Normal 21.0-32.0 [facility] Comment on above: Performed By: #### C MP, HSTROPN, TSH #### [facility] [address] [place] [address] Dr. Christos Fallon Creatinine [Mass/Vol] 0.97 mg/dL Normal 0.55-1.02 [facility] Comment on above: Performed By: #### C MP, HSTROPN, TSH #### [facility] [address] [place] [address] Dr. Christos Fallon EGFR-AF ICELANDIC >60 Normal >=[address] [facility] Comment on above: Performed By: #### C MP, HSTROPN, TSH #### [facility] [address] [address] [address] Christos Fallon EGFR-NON AF ICELANDIC >60 Normal >=60 [facility] Comment on above: Performed By: #### C MP, HSTROPN, TSH #### [facility] [address] [address] [address] Christos Fallon Globulin (S) [Mass/Vol] 3.8 g/dL Normal [facility] Comment on above: Performed By: #### C MP, HSTROPN, TSH #### [facility] [address] [address] [address] Christos Fallon Glucose [Mass/Vol] 104 mg/dL Normal 74-106 [facility] Comment on above: Performed By: #### C MP, HSTROPN, TSH #### [facility] [address] [place] [address] Dr. Christos Fallon Potassium [Moles/Vol] 4.1 mmol/L Normal 3.5-5.1 [facility] Comment on above: Performed By: #### C MP, HSTROPN, TSH #### [facility] [address] [place] [address] Dr. Christos Fallon Protein [Mass/Vol] 7.4 g/dL Normal 6.4-8.2 [facility] Comment on above: Performed By: #### C MP, HSTROPN, TSH #### [facility] [address] [address] [address] Christos Fallon Sodium [Moles/Vol] 136 mmol/L Normal 136-145 [facility] Comment on above: Performed By: #### C MP, HSTROPN, TSH #### [facility] [address] [place] [address] Dr. Christos Fallon Urea nitrogen [Mass/Vol] 17.0 mg/dL Normal 7.0-18.0 [facility] Comment on above: Performed By: #### C MP, HSTROPN, TSH #### [facility] [address] [place] [address] Dr. Christos Fallon Urea nitrogen/Creatinine [Mass ratio] 17.5 mg/mg Normal [facility] Comment on above: Performed By: #### C MP, HSTROPN, TSH #### [facility] [address] [address] [address] Christos Fallon TROPONIN, HIGH SENSITIVITYon 03-22-2022 HSTROP <4.0 Normal 4.0-51.3 [facility] Comment on above: Result Comment: CUT- OFF POINTS HAVE BEEN ESTABLISHED BASED ON THE FOURTH UNIVERSAL DEFINITIONS OF MYOCARDIAL INFARCTION. THE UPPER REFERENCE LIMIT (URL) OF TROPONIN, DEFINED THE 99TH PERCENTILE OF cTnI DISTRIBUTION IN A REFERENCE POPULATION, HAS BEEN CONFIRMED THE DECISION THRESHOLD FOR IN DIAGNOSIS. Performed By: #### C MP, HSTROPN, TSH #### [facility] [address] [place] [address] Dr. Christos Fallon TSHon 03-22-2022 TSH 0.854 uIU/mL Normal 0.358-3.740 [facility] Comment on above: Performed By: #### C MP, HSTROPN, TSH #### [facility] [address] [place] [address] Dr. Christos Fallon ASYMPTOMATIC COVID-19 ANTIGE Non 03-03-2022 EUA Statement SEE BELOW Normal [facility] Comment on above: Result Comment: This [...] sooner. Performed By: #### C VDAGA #### [facility] [address] [place] [address] Dr. Christos Fallon SARS-CoV-2 (COVID-19) RNA LEROY+probe Ql (Unsp spec) Positive Critically abnormal NEGATIVE [facility] Comment on above: Result Comment: SARS -CoV-2 antigen present; does not rule out coinfection with other pathogens. Performed By: #### C VDAGA #### [facility] [address] [place] [address] Dr. Christos Fallon Covid-19 PCR ([facility])on 02-06 SARS-CoV-2 (COVID-19) RNA LEROY+probe Ql (Unsp spec) Detected Critically abnormal NOT DETECTED [facility] Comment on above: Result Comment: This test is not yet approved or cleared by the [place] FDA. When there are no FDA-approved or cleared tests available, and other criteria are met, FDA can make tests available under an emergency access mechanism called an Emergency Use Authorization (EUA). The EUA for this test is supported by the [place] of Health and Human Service's declaration that [...] By: #### C MP, TSH, HSTROPN #### [facility] [address] [place] [address] Dr. Christos Fallon CRPon 11-25-2021 CRP [Mass/Vol] mg/L Normal <=1.0 [facility] Comment on above: Performed By: #### C MP, TSH, HSTROPN #### [facility] [address] [place] [address] Dr. Christos Fallon VIT B12 AND FOLATEon 022 Cobalamin (Vitamin B12) [Mass/Vol] 329.0 pg/mL Normal 239.0-931.0 [facility] Comment on above: Performed By: #### C MP, TSH, HSTROPN #### [facility] [address] [place] [address] Dr. Christos Fallon FOLATE 8.50 ng/mL Normal >=2.76 [facility] Comment on above: Performed By: #### C MP, TSH, HSTROPN #### [facility] [address] [address] [address] Christos Fallon CBC AUTO DIFFon 11-19-2021 BASO # 0.1 103/ul Normal 0.0-0.1 [facility] Comment on above: Performed By: #### C BC #### [facility] [address] [address] [address] Christos Fallon Basophils/100 WBC (Bld) 0.8 % Normal 0.2-2.0 [facility] Comment on above: Performed By: #### C BC #### [facility] [address] [place] [address] Dr. Christos Fallon EO # 0.3 103/ul Normal 0.0-0.7 [facility] Comment on above: Performed By: #### C BC #### [facility] [address] [place] [address] Dr. Christos Fallon Eosinophils/100 WBC (Bld) 4.8 % Normal 0.9-7.0 [facility] Comment on above: Performed By: #### C BC #### [facility] [address] [place] [address] Dr. Christos Fallon Erythrocyte distribution width (RBC) [Ratio] 12.2 % Normal 11.0-15.0 [facility] Comment on above: Performed By: #### C BC #### [facility] [address] [place] [address] Dr. Christos Fallon Hematocrit (Bld) [Volume fraction] 41.9 % Normal 36.0-48.0 [facility] Comment on above: Performed By: #### C BC #### [facility] [address] [place] [address] Dr. Christos Fallon Hemoglobin (Bld) [Mass/Vol] 14.2 g/dL Normal 12.0-16.0 [facility] Comment on above: Performed By: #### C BC #### [facility] [address] [place] [address] Dr. Christos Fallon IG # 0.03 10e3/ul Normal 0.00-0.03 [facility] Comment on above: Performed By: #### C BC #### [facility] [address] [place] [address] Dr. Christos Fallon IG % 0.5 % Normal 0.0-0.5 [facility] Comment on above: Performed By: #### C BC #### [facility] [address] [place] [address] Dr. Christos Fallon LYMPH # 1.5 103/ul Normal 1.2-3.8 [facility] Comment on above: Performed By: #### C BC #### [facility] [address] [place] [address] Dr. Christos Fallon Lymphocytes/100 WBC (Bld) 24.6 % Normal 20.5-60.0 [facility] Comment on above: Performed By: #### C BC #### [facility] [address] [place] [address] Dr. Christos Fallon MANUAL DIFF REQ NO Normal [facility] Comment on above: Performed By: #### C BC #### [facility] [address] [place] [address] Dr. Christos Fallon MCH (RBC) [Entitic mass] 34.3 pg Critically high 26.7-34.0 [facility] Comment on above: Performed By: #### C BC #### [facility] [address] [place] [address] Dr. Christos Fallon MCHC (RBC) [Mass/Vol] 33.9 g/dL Normal 29.9-35.2 [facility] Comment on above: Performed By: #### C BC #### [facility] [address] [place] [address] Dr. Christos Fallon MCV (RBC) [Entitic vol] 101.2 fL Critically high 81.0-99.0 [facility] Comment on above: Performed By: #### C BC #### [facility] [address] [place] [address] Dr. Christos Fallon MONO # 0.5 103/ul Normal 0.3-0.8 [facility] Comment on above: Performed By: #### C BC #### [facility] [address] [place] [address] Dr. Christos Fallon Monocytes/100 WBC (Bld) 7.2 % Normal 1.7-12.0 [facility] Comment on above: Performed By: #### C BC #### [facility] [address] [place] [address] Dr. Christos Fallon NEUT # 3.9 103/ul Normal 1.4-6.5 [facility] Comment on above: Performed By: #### C BC #### [facility] [address] [place] [address] Dr. Christos Fallon Neutrophils/100 WBC (Bld) 62.1 % Normal 43.0-75.0 [facility] Comment on above: Performed By: #### C BC #### [facility] [address] [place] [address] Dr. Christos Fallon Platelet mean volume (Bld) [Entitic vol] 9.1 fL Critically low 9.5-13.5 [facility] Comment on above: Performed By: #### C BC #### [facility] [address] [place] [address] Dr. Christos Fallon PLT 301 103/ul Normal 150-450 [facility] Comment on above: Performed By: #### C BC #### [facility] [address] [place] [address] Dr. Christos Fallon RBC 4.14 106/ul Critically low 4.20-5.40 [facility] Comment on above: Performed By: #### C BC #### [facility] [address] [place] [address] Dr. Christos Fallon WBC 6.3 103/ul Normal 4.0-11.0 [facility] Comment on above: Performed By: #### C BC #### [facility] [address] [place] [address] Dr. Christos Fallon FREE T3on 11-19-2021 FREE T3 2.72 pg/mlL Critically low 2.77-5.27 [facility] Comment on above: Performed By: #### C MP, TSH, HSTROPN #### [facility] [address] [address] [address] Christos Fallon FREE T4on 11-19-2021 Free T4 [Mass/Vol] 1.09 ng/dL Normal 0.78-2.19 [facility] Comment on above: Performed By: #### C MP, TSH, HSTROPN #### [facility] [address] [address] [address] Christos Fallon GLYCOHEMOGLOBIN A1Con 2021 ADA RECOMMENDATION ADA THERAPEUTIC TARG ET 6.0 - 7.0 ACTION SUGGESTED > 7.0 Normal [facility] Comment on above: Performed By: #### A 1C #### [facility] [address] [place] [address] Dr. Christos Fallon Glucose [Mass/Vol] 105 mg/dL Normal [facility] Comment on above: Performed By: #### A 1C #### [facility] [address] [place] [address] Dr. Christos Fallon HbA1c (Bld) [Mass fraction] 5.3 % Normal <=6.0 [facility] Comment on above: Performed By: #### A 1C #### [facility] [address] [place] [address] Dr. Christos Fallon LIPID PROFILEon 11-19-2021 CHOL-HDL RATIO NORM SEE BELOW Normal [facility] Comment on above: Result Comment: 3.3 - 4.4 LOW RISK 4.4 - 7.1 AVERAGE RISK 7.1 - 11.0 MODERATE RISK >11.0 HIGH RISK Performed By: #### C MP, TSH, HSTROPN #### [facility] [address] [address] [address] Christos Fallon Cholesterol [Mass/Vol] 232 mg/dL Critically high <=200 [facility] Comment on above: Performed By: #### C MP, TSH, HSTROPN #### [facility] [address] [place], [place] [id number] Dr. Christos Fallon Cholesterol in HDL [Mass/Vol] 60 mg/dL Normal 40-60 [facility] Comment on above: Performed By: #### C MP, TSH, HSTROPN #### [facility] [address] [address] [address] Christos Fallon Cholesterol in LDL [Mass/Vol] 134.6 mg/dL Normal [facility] Comment on above: Performed By: #### C MP, TSH, HSTROPN #### [facility] [address] [address] [address] Christos Fallon Cholesterol.total/Cho lesterol in HDL [Mass ratio] 3.9 {ratio} Normal [facility] Comment on above: Performed By: #### C MP, TSH, HSTROPN #### [facility] [address] [place] [address] Dr. Christos Fallon HDL NORMAL > or = 60 mg/dl - LO W CARDIOVASCULAR RISK <40 mg/dl - HIGH CARDIOVASCULAR RISK Normal [facility] Comment on above: Performed By: #### C MP, TSH, HSTROPN #### [facility] [address] [address] [address] Christos Fallon LDL CALC NORMAL SEE BELOW Normal [facility] Comment on above: Result Comment: <100 mg/dl OPTIMAL 100 - 129 mg/dl NEAR OR ABOVE OPTIMAL 130 - 159 mg/dl BORDERLINE HIGH 160 - 189 mg/dl HIGH >190 mg/dl VERY HIGH Performed By: #### C MP, TSH, HSTROPN #### [facility] [address] [address] [address] Christos Fallon Triglyceride [Mass/Vol] 187 mg/dL Critically high <=150 [facility] Comment on above: Performed By: #### C MP, TSH, HSTROPN #### [facility] [address] [address] [address] Christos Fallon VLDL CALC 37.4 mg/dL Normal [facility] Comment on above: Performed By: #### C MP, TSH, HSTROPN #### [facility] [address] [address] [address] Christos Fallon PROF 14(COMP METB)on 022 Albumin [Mass/Vol] 3.8 g/dL Normal 3.4-5.0 [facility] Comment on above: Performed By: #### C MP, TSH, HSTROPN #### [facility] [address] [address] [address] Christos Fallon Albumin/Globulin [Mass ratio] 1.1 {ratio} Normal [facility] Comment on above: Performed By: #### C MP, TSH, HSTROPN #### [facility] [address] [place] [address] Dr. Christos Fallon ALP [Catalytic activity/Vol] 77 U/L Normal 46-116 [facility] Comment on above: Performed By: #### C MP, TSH, HSTROPN #### [facility] [address] [place] [address] Dr. Christos Fallon ALT [Catalytic activity/Vol] 34 U/L Normal 14-59 [facility] Comment on above: Performed By: #### C MP, TSH, HSTROPN #### [facility] [address] [address] [address] Christos Fallon Anion gap [Moles/Vol] 11.5 mmol/L Normal [facility] Comment on above: Performed By: #### C MP, TSH, HSTROPN #### [facility] [address] [address] [address] Christos Fallon AST [Catalytic activity/Vol] 21 U/L Normal 15-37 [facility] Comment on above: Performed By: #### C MP, TSH, HSTROPN #### [facility] [address] [address] [address] Christos Fallon Bilirubin [Mass/Vol] 0.7 mg/dL Normal 0.2-1.3 [facility] Comment on above: Performed By: #### C MP, TSH, HSTROPN #### [facility] [address] [address] [address] Christos Fallon Calcium [Mass/Vol] 8.8 mg/dL Normal 8.5-10.1 [facility] Comment on above: Performed By: #### C MP, TSH, HSTROPN #### [facility] [address] [address] [address] Christos Fallon Chloride [Moles/Vol] 104 mmol/L Normal 98-107 [facility] Comment on above: Performed By: #### C MP, TSH, HSTROPN #### [facility] [address] [address] [address] Christos Fallon CO2 [Moles/Vol] 28.6 mmol/L Normal 22.0-30.[address] [facility] Comment on above: Performed By: #### C MP, TSH, HSTROPN #### [facility] [address] [place] [address] Dr. Christos Fallon Creatinine [Mass/Vol] 0.88 mg/dL Normal 0.52-1.04 [facility] Comment on above: Performed By: #### C MP, TSH, HSTROPN #### [facility] [address] [place] [address] Dr. Christos Fallon EGFR-AF ICELANDIC >60 Normal >=[address] [facility] Comment on above: Performed By: #### C MP, TSH, HSTROPN #### [facility] [address] [place] [address] Dr. Christos Fallon EGFR-NON AF ICELANDIC >60 Normal >=60 [facility] Comment on above: Performed By: #### C MP, TSH, HSTROPN #### [facility] [address] [place] [address] Dr. Christos Fallon Globulin (S) [Mass/Vol] 3.5 g/dL Normal [facility] Comment on above: Performed By: #### C MP, TSH, HSTROPN #### [facility] [address] [place] [address] Dr. Christos Fallon Glucose [Mass/Vol] 101 mg/dL Normal 74-106 [facility] Comment on above: Performed By: #### C MP, TSH, HSTROPN #### [facility] [address] [place] [address] Dr. Christos Fallon Potassium [Moles/Vol] 4.1 mmol/L Normal 3.4-5.0 [facility] Comment on above: Performed By: #### C MP, TSH, HSTROPN #### [facility] [address] [place] [address] Dr. Christos Fallon Protein [Mass/Vol] 7.3 g/dL Normal 6.1-8.2 [facility] Comment on above: Performed By: #### C MP, TSH, HSTROPN #### [facility] [address] [place] [address] Dr. Christos Fallon Sodium [Moles/Vol] 140 mmol/L Normal 137-145 [facility] Comment on above: Performed By: #### C MP, TSH, HSTROPN #### [facility] [address] [place] [address] Dr. Christos Fallon Urea nitrogen [Mass/Vol] 11.0 mg/dL Normal 7.0-18.0 [facility] Comment on above: Performed By: #### C MP, TSH, HSTROPN #### [facility] [address] [place] [address] Dr. Christos Fallon Urea nitrogen/Creatinine [Mass ratio] 12.5 mg/mg Normal [facility] Comment on above: Performed By: #### C MP, TSH, HSTROPN #### [facility] [address] [place] [address] Dr. Christos Fallon TSHon 11-19-2021 TSH 0.774 uIU/mL Normal 0.470-4.680 [facility] Comment on above: Performed By: #### C MP, TSH, HSTROPN #### [facility] [address] [place] [address] Dr. Christos Fallon TSH RANGE SEE BELOW Normal [facility] Comment on above: Result Comment: <0.3 4 UIU/ml HYPERTHYROID 0.34-5.60 UIU/ml EUTHYROID >5.60 UIU/ml HYPOTHYROID Performed By: #### C MP, TSH, HSTROPN #### [facility] [address] [place], [place] [address] Dr. Christos Fallon XR TSPINE 2 VIEWSon [...] TAMIE GUILLERMO Date: 2021-11-19 12:49 Normal [facility] Cardiovascular Lab Reporton 11-17-2021 Cardiovascular Lab Report [facility] [id number] Physician: Jonny Fowler M.D. Department of Service Date: 11/17/2021 Medicine Birthdate: 1980 Division of Room #: CC Cardiology Adult Cardiovascular Services [address] [place] [address] Cardiovascular Laboratory Report PROCEDURE: Implantable loop recorder [...] Fowler M.D. Date Trans: 11/17/2021 12:41 P/toñito [id number] cc: Mert Lama M.D. [address] [place] [address] [address] [facility] [id number] [facility] Covid-19 PCR ([facility])on SARS-CoV-2 (COVID-19) RNA LEROY+probe Ql (Unsp spec) Not detected Normal NOT DETECTED [facility] Comment on above: Result Comment: This test is not yet approved or cleared by the [place] FDA. When there are no FDA-approved or cleared tests available, and other criteria are met, FDA can make tests available under an emergency access mechanism called an Emergency Use Authorization (EUA). The EUA for this test is supported by the [place] of Health and Human Service's (HHS's) declaration [...] By: #### C MP, TSH, HSTROPN #### [facility] [address] [place] [address] [address] Christos Fallon Covid-19 PCR ([facility])on SARS-CoV-2 (COVID-19) RNA LEROY+probe Ql (Unsp spec) Not detected Normal NOT DETECTED [facility] Comment on above: Result Comment: When [...] for this test is supported by the [place] of Health and Human Service's declaration that [...] longer be used). Performed By: #### C [facility] #### [facility] [address] [place] [address] Christos Fallon Cardiovascular Lab Reporton 06-17-2021 Cardiovascular Lab Report [facility] Patient Name: [facility] MR #: [id number] Physician: Vishal Rogers MD Department of Service Date: 06/17/2021 Medicine Birthdate: 1980 Division of Room #: CC Cardiology Adult Cardiovascular Services [place] [address] Cardiovascular Laboratory Report COMPREHENSIVE EP STUDY AND ATRIAL TACHYCARDIA ABLATION DATE OF PROCEDURE: 06/17/2021 PERFORMING PHYSICIAN: Dr. Vishal Sue INDICATIONS FOR PROCEDURE: 1. History of symptomatic [...] (more content not included)... Normal [facility] FEMUR LEFT 2 VWSon 1 FEMUR LEFT [address] [facility] Department of Radiology [address] [place] [id number] ======== Patient Name: KAILA VASQUEZ : [...] of distal left femoral osteochondroma. Approved by:Tavon Belcheron01/15/2021 11:40 AM. I, Gelacio Pfeiffer,have reviewed the image(s) and agree with the findings in this report. Electronically signed: Gelacio Pfeiffer. Transcribed by: [email or web address], User Resident: TAVON BECLHER Electronically Signed by: GELACIO PFEIFFER @ 01/15/2021 12:03 PM I personally read this/these film(s) with this resident Normal [facility] Comment on above: Order Comment: evalu ate Operative Reporton Operative Report MR#: [id number] [facility] Pt. Name: Kaila Vasquez Room #: 0C Discharge 12/05/2020 Date: Birthdate: 1980 OPERATIVE REPORT DATE OF SURGERY: 12/05/2020 SURGEON: Pamella Brennan M.D. PREOPERATIVE DIAGNOSIS: Left distal femur osteochondroma. POSTOPERATIVE DIAGNOSIS: Left distal femur osteochondroma. PROCEDURE PERFORMED: Left distal femur osteochondroma excision. DAIRY HUSBANDMAN: Alaina Edouard M.D. ANESTHESIA: General endotracheal. SPECIMENS: [...] (more content not included)... Normal [facility] FEMUR LEFT 2 [facility] 1 FEMUR LEFT [address] [facility] Department of Radiology [address] [place] [id number] ======== Patient Name: KAILA VASQUEZ : [...] purposes. Electronically signed: Ching Garcia. Transcribed by: [email or web address], User Resident: Electronically Signed by: CHING GARCIA @ 12/05/2020 11:[address] [facility] Comment on above: Order Comment: LEFT DISTAL FEMUR OSTEOCHONDROMA EXCISION POC GLUCOSE LABon 12-05-2020 Glucose [Mass/Vol] 108 mg/dL High 70-[address] [facility] Comment on above: Performed By: #### 8 5499 ####[facility] [facility].[address] *MRSA/MSSA DNA NASALon 11-28 *MRSA/MSSA DNA NASAL Clinical Report: (D ) Specimen: NASAL SWAB Collected: 11/28/2020 13:22 Status: Final Last Updated: 2020 13:05 MSSA DNA (Final) Negative MRSA DNA (Final) Negative Normal [facility] Comment on above: Performed By: #### 3 1595 ####[facility] [facility].[address] APTTon 11-28-2020 aPTT Coag (Bld) [Time] 29.1 s Normal 25.0-35.[address] [facility] Comment on above: Result Comment: ALL [...] THIS PURPOSE. Performed By: #### 5 7307, 238[address] #### [facility] [address] [place] [address], [facility] BASIC METABOLIC PANELon 11-07 Calcium [Mass/Vol] 9.5 mg/dL Normal 8.6-10.[address] [facility] Comment on above: Performed By: #### 0 0071 #### [facility] [address] [place] [address], [facility] Chloride [Moles/Vol] 104 mmol/L Normal 98-[address] [facility] Comment on above: Performed By: #### 0 0071 #### [facility] [address] [place] [address], [facility] CO2 [Moles/Vol] 28 mmol/L Normal 21-[address] [facility] Comment on above: Performed By: #### 0 0071 #### [facility] [address] [place] [address], [facility] Creatinine [Mass/Vol] 0.90 mg/dL Normal 0.60-1.[address] [facility] Comment on above: Performed By: #### 0 0071 #### [facility] [address] [place] [address], [place] GFR/1.73 sq M.predicted among blacks MDRD (S/P/Bld) [Vol rate/Area] mL/min/{1.73_m2} Normal >[address] [facility] Comment on above: Performed By: #### 0 0071 #### [facility] [address] [place] [address], [place] GFR/1.73 sq M.predicted among non-blacks MDRD (S/P/Bld) [Vol rate/Area] mL/min/{1.73_m2} Normal >[address] [facility] Comment on above: Performed By: #### 0 0071 #### [facility] [address] [place] [address], [place] Glucose [Mass/Vol] 132 mg/dL High 70-[address] [facility] Comment on above: Performed By: #### 0 0071 #### [facility] [address] [place] [address], [place] Potassium [Moles/Vol] 3.8 mmol/L Normal 3.5-5.[address] [facility] Comment on above: Performed By: #### 0 0071 #### [facility] [address] [place] [address], [place] Sodium [Moles/Vol] 138 mmol/L Normal 136-[address] [facility] Comment on above: Performed By: #### 0 0071 #### [facility] [address] [place] [address], [place] Urea nitrogen [Mass/Vol] 9 mg/dL Normal 7-[address] [facility] Comment on above: Performed By: #### 0 0071 #### [facility] [address] CBC W/DIFFon 11-28-2020 ABS IMM GRANS 0.0 10*3/uL Normal 0.0-0.[address] [facility] Comment on above: Performed By: #### 5 0103 ####[facility] [place] [address], [facility] ABS NEUTROPHILS 7.2 10*3/uL Normal 1.6-7.[address] [facility] Comment on above: Performed By: #### 5 0103 ####[facility] Basophils (Bld) [#/Vol] 0.1 10*3/uL Normal 0.0-0.[address] [facility] Comment on above: Performed By: #### 5 0103 ####[facility] [place] [address], [facility] Basophils/100 WBC (Bld) 0.6 % Normal 0.0-1.[address] [facility] Comment on above: Performed By: #### 5 0103 ####[facility] [facility] [place] [address], [facility] Eosinophils (Bld) [#/Vol] 0.3 10*3/uL Normal 0.0-0.[address] [facility] Comment on above: Performed By: #### 5 0103 ####[facility] [place] [address], [facility] Eosinophils/100 WBC (Bld) 2.6 % Normal 0.0-6.[address] [facility] Comment on above: Performed By: #### 5 0103 ####[facility] Erythrocyte distribution width (RBC) [Ratio] 12.6 % Normal 11.5-15.[address] [facility] Comment on above: Performed By: #### 5 0103 ####[facility] Hematocrit (Bld) [Volume fraction] 42.6 % Normal 36.0-45.[address] [facility] Comment on above: Performed By: #### 5 3 ####[facility] Hemoglobin (Bld) [Mass/Vol] 14.4 g/dL Normal 12.0-15.[address] [facility] Comment on above: Performed By: #### 3 ####[facility] [place] [address] IMMATURE GRANS 0.3 % Normal 0.0-1.[address] [facility] Comment on above: Performed By: #### 3 ####[facility] Lymphocytes (Bld) [#/Vol] 2.1 10*3/uL Normal 1.2-4.[address] [facility] Comment on above: Performed By: #### 3 ####[place] [address] [address] Lymphocytes/100 WBC (Bld) 20.2 % Normal 20.0-45.[address] [facility] Comment on above: Performed By: #### 3 ####[facility] MCH (RBC) [Entitic mass] 33.6 pg High 27.0-33.[address] [facility] Comment on above: Performed By: #### 102 ####[facility] MCHC (RBC) [Mass/Vol] 33.8 g/dL Normal 32.0-35.[address] [facility] Comment on above: Performed By: #### 5 0103 ####[facility] [facility].[address] MCV (RBC) [Entitic vol] 99.5 fL High 82.0-98.[address] [facility] Comment on above: Performed By: #### 5 0103 ####[facility] [facility].[address] Monocytes (Bld) [#/Vol] 0.7 10*3/uL Normal 0.1-1.[address] [facility] Comment on above: Performed By: #### 102 ####[facility] [facility].[address] MONOS 6.4 % Normal 5.0-12.[address] [facility] Comment on above: Performed By: #### 102 ####[facility] Neutrophils/100 WBC (Bld) 69.9 % Normal 40.0-72.[address] [facility] Comment on above: Performed By: #### 102 ####[facility] [facility].[address] Nucleated RBC/100 WBC (Bld) [Ratio] 0 % Normal 0-[address] [facility] Comment on above: Performed By: #### 3 ####[facility] [facility] [place] [address], [facility] PLAT CNT 346 10*3/uL Normal 150-[address] [facility] Comment on above: Performed By: #### 3 ####[facility] [facility] [place] [address], [facility] RBC (Bld) [#/Vol] 4.28 10*6/uL Normal 3.80-5.00 [facility] Comment on above: Performed By: #### 5 0103 ####[facility] WBC (Bld) [#/Vol] 10.24 10*3/uL Normal 4.00-10.[address] [facility] Comment on above: Performed By: #### 5 0103 ####[facility] PROTHROMBIN TIMEon 1 INR Coag (PPP) [Relative time] 0.99 {INR} Normal 0.91-1.[address] [facility] Comment on above: Result Comment: ACCC [...] CHEST 1995;[id number]. Performed By: #### 5 7307, 08896 #### [facility] [address] PT Coag (PPP) [Time] 13.1 s Normal 12.3-14.[address] [facility] Comment on above: Result Comment: ALL RESULTS MUST BE INTERPRETED WITH RESPECT TO BLOOD DRAWING ARTIFACT OR DILUTION ERROR OF ANTICOAGULANT AT THE TIME OF SAMPLING. Performed By: #### 5 7307, [address] #### [facility] [address] [place] [address], [place] TYPE AND CROSSMATCHon 2020 ABO INTERPRETATION O Normal [facility] Comment on above: Performed By: #### 6 2594 #### [facility] [address] [place] [address], [place] RH INTERPRETATION Positive Normal [facility] Comment on above: Performed By: #### 6 2594 #### [facility] [address] [place] [address], [place] URINALYSISon 11-28-2020 Appearance (U) CLEAR Normal CLEAR [facility] Comment on above: Performed By: #### 1 0008 #### [facility] [address] [place] [address], [place] Bilirubin Ql (U) Negative Normal NEGATIVE [facility] Comment on above: Performed By: #### 1 0008 #### [facility] [address] [place] [address], [place] Color (U) YELLOW Normal YELLOW [facility] Comment on above: Performed By: #### 1 0008 #### [facility] [address] [place] [address], [place] Glucose Ql (U) Negative Normal NEGATIVE [facility] Comment on above: Performed By: #### 1 0008 #### [facility] [address] [place] [address], [place] Hemoglobin Ql (U) Negative Normal NEGATIVE [facility] Comment on above: Performed By: #### 1 0008 #### [facility] [address] [place] [address], [place] KETONE Negative Normal NEGATIVE [facility] Comment on above: Performed By: #### 1 0008 #### [facility] [address] [place] [address], [place] LEUK JORDAN Negative Normal NEGATIVE [facility] Comment on above: Performed By: #### 1 0008 #### [facility] [address] [place] [address], [facility] MICRO NOT DONE Normal [facility] Comment on above: Result Comment: Micr oscopics not performed on urines with negative chemical reactions unless requested in original order Performed By: #### 1 0008 #### [facility] [address] Nitrite Ql (U) Negative Normal NEGATIVE [facility] Comment on above: Performed By: #### 1 0008 #### [facility] [address] pH (U) 6.0 [pH] Normal 5.0-8.[address] [facility] Comment on above: Performed By: #### 1 0008 #### [facility] [address] Protein Ql (U) Negative Normal NEGATIVE [facility] Comment on above: Performed By: #### 1 0008 #### [facility] [address] SPEC GRAV 1.018 Normal 1.015-1.[address] [facility] Comment on above: Performed By: #### 1 0008 #### [facility] [address] Vital Signs Date Time Vital Sign Value Performing Clinician Faci lity 08-24-2022 13:44-0500 Body height 162.6 cm Janell Sy MD Work Phone: [facility] 08-24-2022 13:44-050 Body weight 112.95 kg Janell Sy MD Work Phone: [facility] 08-24-2022 13:44-0500 Diastolic blood pressure 73 mm[Hg] Janell Sy MD Work Phone: [facility] 08-24-2022 13:44-0500 Heart rate 88 /min Janell Sy MD Work Phone: [facility] 08-24-2022 13:44-0500 SaO2% (BldA) [Mass fraction] 98 % Janell Sy MD Work Phone: [facility] 08-24-2022 13:44-0500 Systolic blood pressure 112 mm[Hg] Janell Sy MD Work Phone: [facility] 08-05-2022 10:00-0500 Diastolic blood pressure 88 mm[Hg] Carmen Seese PT Work Phone: [facility] 08-05-2022 10:00-0500 Heart rate 78 /min Carmen Seese PT Work Phone: [facility] 08-05-2022 10:00-0500 Systolic blood pressure 134 mm[Hg] Carmen Seese PT Work Phone: [facility] 07-07-2022 08:12-0500 Body height 162.6 cm Glenroy Poultanisha DISTRICT SALES COORDINATOR.WINDOWS SERVER ARCHITECT Work Phone: [facility] 07-07-2022 08:12-0500 Body weight 112.04 kg Glenroy Syed DISTRICT SALES COORDINATOR.WINDOWS SERVER ARCHITECT Work Phone: [facility] 07-07-2022 08:12-0500 Diastolic blood pressure 88 mm[Hg] Glenroy Poultanisha DISTRICT SALES COORDINATOR.WINDOWS SERVER ARCHITECT Work Phone: [facility] 07-07-2022 08:12-0500 Heart rate 82 /min Glenroy Poultanisha DISTRICT SALES COORDINATOR.WINDOWS SERVER ARCHITECT Work Phone: [facility] 07-07-2022 08:12-0500 SaO2% (BldA) [Mass fraction] 98 % Glenroy Syed DISTRICT SALES COORDINATOR.WINDOWS SERVER ARCHITECT Work Phone: [facility] 07-07-2022 08:12-0500 Systolic blood pressure 134 mm[Hg] Glenroy Poulton DISTRICT SALES COORDINATOR.WINDOWS SERVER ARCHITECT Work Phone: [facility] 12-09-2021 13:59-0400 Blood Pressure Location Pamella NILL [facility] 12-09-2021 13:59-0400 Diastolic blood pressure 78 mm[Hg] Pamella NILL [facility] 12-09-2021 13:59-0400 Heart rate 68 /min Pamella NILL [facility] 12-09-2021 13:59-0400 Respiratory rate 16 /min Pamella NILL [facility] 12-09-2021 13:59-0400 Systolic blood pressure 118 mm[Hg] Pamella NILL [facility] Encounters Encounter Date Encounter Type Care Provider Facility Start: 02-20-2025 ambulatory [facility] Start: 01-15-2025 End: 01-15-2025 ambulatory [facility] Start: 01-03-2025 ambulatory [facility] Start: 12-24-2024 End: 12-24-2024 ambulatory Ari Sellers MD Facility:[facility] Start: 11-26-2024 End: 11-26-2024 ambulatory Cristiane L Brock Facility:[facility] Start: 11-15-2024 End: 11-15-2024 ambulatory Cristiane L Brock Facility:[facility] Start: 10-30-2024 ambulatory [facility] Start: 10-02-2024 End: 10-08-2024 Telephone encounter [facility] Comment on above: neuro referral Start: 09-18-2024 ambulatory [facility] Start: 09-11-2024 End: 09-11-2024 ambulatory Cristiane L Brock Facility:[facility] Start: 07-16-2024 ambulatory [facility] Start: 06-29-2024 ambulatory [facility] Start: 06-15-2024 ambulatory [facility] Start: 06-04-2024 End: 06-04-2024 ambulatory Ari Sellers MD Facility:[facility] Start: 05-31-2024 ambulatory [facility] Start: 05-09-2024 ambulatory [facility] Start: 04-27-2024 ambulatory [facility] Start: 03-06-2024 ambulatory [facility] Start: 12-19-2023 End: 12-19-2023 ambulatory Cristiane L Brock Facility: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 (Primary Dx) Start: 10-14-2022 End: 10-14-2022 ambulatory GLENROY SYED Facility:[facility] Start: 09-09-2022 ambulatory Mauri Ross RT(R) diology Comment on above: Radiology MRI Start: 09-09-2022 Patient encounter procedure Mauri Ross RT(R) [facility]ONAL[facility]OR[facility] Start: 09-02-2022 End: 09-02-2022 ambulatory ELENA GUAN Facility:[facility] Start: 08-24-2022 End: 08-24-2022 ambulatory GLENROY SYED Facility:[facility] Start: 08-24-2022 End: 08-24-2022 Patient encounter procedure Janell Sy MD Work Phone: Cardiology Comment on above: KANG (obstructive sle ep apnea) (Primary Dx); Dizziness; Palpitations; Obesity, morbid, BMI 40.0-49.9 (HCC); SVT (supraventricular tachycardia) (HCC); Chronic fatigue; Vitamin D deficiency Start: 08-20-2022 Orders Only Len OBRIEN.WINDOWS SERVER ARCHITECT Work Phone: Neurology Comment on above: Ocular migraine (Dinora andres Dx) Start: 08-19-2022 End: 08-19-2022 ambulatory [facility] Neu[facility] Comment on above: Neuro Ophthalmologis t Start: 08-16-2022 ambulatory [facility] Neurology Comment on above: MRI Start: 08-12-2022 End: 08-12-2022 ambulatory GLENROY SYED Facility:[facility] Start: 08-12-2022 End: 08-12-2022 ambulatory Carmen Johnson PT Work Phone: Physical Therapy Comment on above: Dizziness (Primary D x); Cervicalgia; Headaches Start: 08-05-2022 End: 08-05-2022 ambulatory GLENROY SYED Facility:[facility] Start: 08-05-2022 End: 08-05-2022 ambulatory Carmen Johnson PT Work Phone: Physical Therapy Comment on above: Dizziness (Primary D x); Cervicalgia; Headaches Start: 07-29-2022 End: 07-29-2022 ambulatory WM RODRIGUEZ Facility: Start: 07-21-[address] MERT LAMA Facilit y:[facility] Start: 07-07-2022 Telephone encounter Glenroy rodriguez APRN.WINDOWS SERVER ARCHITECT Work Phone: Neurology Comment on above: Received Outside Med ical Records Start: 07-07-2022 End: 07-07-2022 ambulatory GLENROY SYED Facility:[facility] Start: 07-07-2022 End: 07-07-2022 Patient encounter procedure Glenroy Syed APRN.WINDOWS SERVER ARCHITECT Work Phone: Neurology Comment on above: Dizziness [...] Patient encounter procedure Pamella SANABRIA General Surgery [facility] Start: 11-25-2021 End: 11-26-[address] MERT LAMA Facility:[facility] Start: 11-23-2021 Encounter for genera l adult medical examination without abnormal findings DR MERT LAMA [facility] Start: 11-19-2021 End: 11-20-[address] MERT LAMA Facility:[facility] Start: 11-19-2021 End: 11-20-2021 Encounter for general adult medical examination without abnormal findings DR MERT LAMA Facility:[facility] Start: 11-17-2021 End: 11-18-2021 ambulatory MERT LAMA Facility:[facility] Start: 11-14-2021 End: 11-15-2021 ambulatory ANU CABAN Facility:[facility] Start: 10-08-2021 End: 10-08-2021 ambulatory WM RODRIGUEZ Facility:[facility] Start: 06-17-2021 End: 06-18-2021 ambulatory MERT LAMA Facility:[facility] Start: 04-16-2021 End: 05-23-2021 ambulatory MERT LAMA Facility:[facility] Start: 12-05-2020 End: 12-06-2020 ambulatory MERT LAMA Facility:[facility] Procedures Date Procedure Procedure Detail Performing Clinician Start: 08-24-2022 Ecg routine ecg w/le ast 12 lds i&r only [facility] Provider Start: 12-05-2020 ANESTH KNEE AREA SURGERY MERT LAMA Start: 12-05-2020 REMOVE FEMUR LESION CARLOS SAMAN BRENNAN Start: 11-28-2020 Antibody screen MERT CHOUDHARY DIANA Comment on above: Performed By: #### 6 [id number] #### [facility] [employer] [address] Start: 11-04-2020 Cystourethroscopy wi th dilation of urethral stricture Pamella SANABRIA Abdominal hysterectomy Wale rodriguez DANIELE Bilateral complete salpingectomy Pamella ZIMMERMANL Cardiac radiofrequen cy ablation using ultrasound guidance Pamella SANABRIA Cholecystectomy Pamella SANABRIA Excision of osteochondroma Nestor valverde DANIELE History of ankle surgery Carlos saman SANABRIA Plan of Treatment Date Care Activity Detail Author Start: 04-08-2024 COVID-19 Vaccine ( season) COVID-19 Vaccine () [facility] Start: 04-08-2024 Influenza vaccination Influenza Vacc ine [facility] Start: 08-08-2022 DEPRESSION ASSESSMENT [facility]ION ASS [facility] Start: 07-07-2022 End: 09-06-2022 25-hydroxyvitamin D3 [Mass/volume] in Serum or Plasma [facility] Work Phone: Comment on above: Expected: 07/07/2022 , Expires: 09/06/2022 Start: 07-07-2022 End: 09-06-2022 ESEQUIEL BY IFA WITH REFLEX [facility] Work Phone: Comment on above: Expected: 07/07/2022 , Expires: 09/06/2022 Start: 04-08-2022 Influenza vaccination INFLUENZA (#1) [facility] Start: 08-08-2021 DEPRESSION ASSESSMENT DEPRESSION ASS [facility] Start: 11-05-2020 COVID-19 VACCINE (3 - Booster for Giancarlo series) COVID-19 VACCINE (3 - Booster for Giancarlo series) [facility] Start: 2012 HPV TESTING HPV TESTING [facility] Start: 12-29-2003 DTaP,Tdap and Td Vac cines (6 - Tdap) DTaP,Tdap and Td Vaccines (6 - Tdap) [facility] Start: 11-30-2003 PAP TESTING PAP TESTING [facility] Start: 11-30-2003 Screening for malign ant neoplasm of cervix Pap Smear [facility] Start: 2001 Urine microalbumin profile DTA P,TDAP,TD (1 - Tdap) [facility] Start: 2000 Adult BMI Screening Adult BMI Screen ing [facility] Start: 2000 HEPATITIS C SCREENING HEPATITIS C SC REENING [facility] Start: 2000 HIV SCREENING HIV SCREENING [facility] Start: 1994 Depression Screening Depression Scre ening [facility] Start: 1994 Tobacco Screening Tobacco Screening [facility] Start: 1982 HEPATITIS B (1 of 3 - 3-dose series) HEPATITIS B (1 of 3 - 3-dose series) [facility] End: 08-24-2023 ECG COMPLETE ECG COMPLETE ECG Routine Dizziness Palpitations Obesity, morbid, BMI 40.0-49.9 (HCC) 1 Occurrences starting 08/24/2022 until 08/24/2023 [facility] Work Phone: Comment on above: 1 Occurrences starti ng 08/24/2022 until 08/24/2023 ECG COMPLETE ECG COMPLETE ECG 08/24/2022 1:56 PM EST [facility] End: 07-07-2023 Echocardiography ECHO Cardiology Routine Palpitations 1 Occurrences starting 07/07/2022 until 07/07/2023 [facility] Work Phone: Comment on above: 1 Occurrences starti ng 07/07/2022 until 07/07/2023 End: 08-06-2023 Mri brain brain stem w/o w/contrast material MRI BRAIN WO/W IVCON Radiology Routine Dizziness Vision changes 1 Occurrences starting 07/07/2022 until 08/06/2023 [facility] Work Phone: Comment on above: 1 Occurrences starti ng 07/07/2022 until 08/06/2023 End: 09-15-2023 Mri spinal canal cervical w/o & w/contr matrl MRI CERVICAL SPINE WO/W IVCON Radiology Routine Dizziness Vision changes Cervicalgia Disturbance of skin sensation 1 Occurrences starting 08/16/2022 until 09/15/2023 [facility] Work Phone: Comment on above: 1 Occurrences starti ng 08/16/2022 until 09/15/2023 [facility] Immunizations Immunization Date Immunization Notes Care Provider Fa subhash 09-10-2020 SARS-CoV-2 (COVID-19 ) Ad26 vaccine, recombinant Pamella NILL [facility] 08-12-2020 SARS-CoV-2 (COVID-19 ) Ad26 vaccine, recombinant Pamella NILL [facility] Payers Date Payer Category Payer Unknown [id number] 2021 Unknown [id number] 1982 Unknown [id number] 2.16.8 40.1.906169.3.579.2.647 1982 Unknown [id number] 2.16.8 40.1.911755.3.579.2.647 1982 Unknown [id number] 2.16.8 40.1.568817.3.579.2.647 1982 Unknown [id number] 2.16.8 40.1.884233.3.579.2.647 1982 Unknown [id number] 2.16.84 0.1.989711.3.579.2.593 1982 Unknown [id number] 2.16.84 0.1.520161.3.579.2.593 1982 Unknown [id number] 2.16.84 0.1.460312.3.579.2.593 1982 Unknown [id number] 2.16.84 0.1.041944.3.579.2.593 1982 Unknown [id number] 2.16.84 0.1.622527.3.579.2.593 1982 Unknown [id number] 2.16.84 0.1.242292.3.579.2.593 1982 Unknown [id number] 2.16.84 0.1.643032.3.579.2.593 1982 Unknown [id number] 2.16.84 0.1.313005.3.579.2.593 1982 Unknown [id number] 2.16.84 0.1.093119.3.579.2.593 1982 Unknown [id number] 2.16.84 0.1.950213.3.579.2.593 1982 Unknown [id number] 2.16.84 0.1.789742.3.579.2.593 1982 Unknown [id number] .16.84 0.1.664719.3.579.2.593 1982 Unknown [id number] 2.16.84 0.1.034215.3.579.2.593 1982 Unknown [id number] 2.16.84 0.1.545336.3.579.2.593 1982 Unknown [id number] 2.16.84 0.1.989266.3.579.2.593 1982 Unknown [id number] 2.16.84 0.1.726525.3.579.2.1259 1982 Unknown [id number] 2.16.84 0.1.400820.3.579.2.1259 1982 Unknown [id number] 2.16.8 40.1.359564.3.579.2.727 1982 Unknown [id number] 2.16.8 40.1.932618.3.579.2.727 1982 Unknown [id number] 2.16.8 40.1.684825.3.579.2.727 1982 Unknown [id number] 2.16.8 40.1.135261.3.579.2.727 1982 Unknown [id number] 2.16. 840.1.560630.3.579.2.196 1982 Unknown [id number] 2.16. 840.1.737056.3.579.2.196 1959 Unknown [id number] Social History Date Type Detail Facility Start: 05-01-2021 End: 12-09-2021 Tobacco smoking status Never smoked tobacco (finding) [facility] Tobacco smoking status Never [facility] Start: 01-17-2019 End: 05-01-2021 Sex Assigned At Female [facility] Start: 05-01-2021 End: 07-07-2022 Tobacco use and exposure Smokeless tobacco non-user [facility] Start: 1980 Sex Assigned At Not on file [facility] Start: 06-27-2022 End: 07-07-2022 Exposure to SARS-CoV-2 (event) Not sure [facility] Start: 05-01-2021 End: 08-24-2022 Alcohol intake Current drinker of alcohol (finding) [facility] Start: 08-24-2022 Alcohol Comment occasionally 1 -2 times a months 2-3 drinks [facility] Start: 01-17-2019 End: 05-01-2021 History of Social function [facility] Start: 05-01-2021 Alcohol Comment social [facility] Start: 03-13-2015 Sex Female (finding) [facility] Clinical Notes 12-30-2021 to 01-15-2025 Telephone Encounter - Nimo Mehta - 10/02/2024 10:24 AM ESTTelephone Encounter - Vivi Dixon - 10/02/2024 10:24 AM ESTTelephone Encounter - Sarah Beth Montes De Oca - 10/02/2024 10:24 AM EST Note Date & Type Note Facility 01-15-2025 Note [facility] Consul t Note Reason for Consultation: Palpitations 01/15/25 Patient here for 2 year follow up palpitations and SVT. Has loop recorder in place. Says she's been having lots of PAC's . [place] lots of them on 01/11/2025 around 11:52am. Says these episodes scares her and they've been happening more frequently. Denies chest pain. There are no events noted on the [id number] website corresponding to that thedate. Loop monitor [...] eval. Prior HPI: Kaila Vasquez is a 44 y.o. year old [...] sleep recently and that was recorded on [employer] business economist reveals evidence of sinus tachycardia 120 bpm. Pt had COVID recently and since then has been experiencing palpitations. She notes these when she is changing positions and also when she bends down. 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 Isuprel challenge with 0.5 (more content not included)... [facility] 10-02-2024 Miscellaneous Notes Received new patient referral. [...] message for patient documented in this encounter [employer] 10-02-2024 Telephone encounter Note Received new patient [...] EVER BEEN SEEN BY A NEUROLOGIST BEFORE? [employer] 10-02-2024 Telephone encounter Note 1st attempt- left voicemail Received Referral from: Cristiane Gutiérrez APRN-SARIKA Dx: Facial tingling M62.838 (ICD-10-CM) - Muscle spasm [facility]erred [facility] [employer] 10-02-2024 Telephone encounter Note 2nd attempt: Left message for patient [employer] 10-14-2022 Note HNO ID: [id number] Author: RT Mary(Matteo) Service: ? Author Type: [...] RT Mary(R) October 14, 2022 4:55 PM [facility] 10-14-2022 Note HNO ID: [id number] Author: Papa Rea RN Service: Radiology Author [...] DATE: October 14, 2022 TIME: 3:20 PM [facility] 09-09-2022 Note HNO ID: [id number] Author: RT Od[place](Matteo) Service: ? Author Type: [...] 09, 2022 TIME: 2:11 PM PAGER/CONTACT #: [facility] 09-09-2022 History of Present illness Narrative [...] PM PAGER/CONTACT #: documented in this encounter [facility] 08-24-2022 Note HNO ID: [id number] Author: Janell Sy MD Service: ? Author Type: Physician Type: Progress Notes Filed: 08/24/2022 2:17 PM Note Text: [facility] SECTION OF REGIONAL CARDIOLOGY OUTPATIENT VISIT DATE [...] of breath HISTORY OF PRESENT ILLNESS: Ms. Vasquze is a 41 year old female who has a history of morbid obesity. Obstructive sleep apnea. Palpitations and SVT as well as PVCs. Also inappropriate sinus tachycardia. Anemia. Migraine headaches. Vitamin D deficiency. Fibromyalgia. Chronic neck and back pain. History of palpitations. COVID-19 infection in February 2023. Biotronik loop recorder implant. Cardiac work-up includes: Echocardiogram on 05/19/2020 at [facility] showed normal ejection fraction. No [...] ECG COMPLETE 4. Obesity, morbid, BMI 40.0-49.9 ([facility]) E66.01 ECG COMPLETE 5. SVT (supraventricular tachycardia) ([facility]) I47.1 6. Chronic fatigue R53.82 [...] Never Vaping U (more content not included)... [facility] 08-24-2022 History of Present illness Narrative Images from the original note were not included. [facility] SECTION OF REGIONAL CARDIOLOGY OUTPATIENT VISIT DATE [...] Cardiac work-up includes: Echocardiogram on 05/19/2020 at [facility] showed normal ejection fraction. No [...] ECG COMPLETE 4. Obesity, morbid, BMI 40.0-49.9 ([facility]) E66.01 ECG COMPLETE 5. SVT (supraventricular tachycardia) ([facility]) I47.1 6. Chronic fatigue R53.82 [...] twice daily.^Disp: ^Rfl: documented in this encounter [facility] 08-19-2022 Note HNO ID: [id number] Author: Mauri Chun OD Service: ? Author Type: MACHINE BUFFER Type: Progress Notes Filed: 08/19/2022 10:22 AM Note Text: Ocular health is unremarkable with no abnormalities. Normal ON appearance Ophthalmic migraines Glasses Rx given with slight prism [facility] 08-16-2022 Miscellaneous Notes signed We can add it to fully evaluate her symptoms. -LP documented in this encounter [facility] 08-12-2022 Note HNO ID: [id number] Author: Carmen Johnson, PT Service: ? Author [...] Total Treatment Time Minutes (timed/untimed): 60 Carmen Kaitlin, PT [facility] 08-12-2022 History of Present illness Narrative [...] Carmen Johnson PT documented in this encounter [facility] 08-05-2022 Note HNO ID: [id number] Author: Carmen Johnson PT Service: ? Author [...] Planned: 8 Planned Treatment Interventions: Therapeutic exercise (18030);Neuromuscular re-education (81203);Manual therapy (22291);Therapeutic activities (20046);Self-assisted management (65473);Patient/Family/Caregiver Education;Gait Training (27911);Canalith Repositioning Maneuvers (94639) PLAN FOR NEXT VISIT: Detailed neck exam [...] Premature atrial contra (more content not included)... [facility] 08-05-2022 History of Present illness Narrative [...] Planned: 8 Planned Treatment Interventions: Therapeutic exercise (80207);Neuromuscular re-education (43408);Manual therapy (83722);Therapeutic activities (39265);Self-assisted management (25820);Patient/Family/Caregiver Education;Gait Training (71469);Canalith Repositioning Maneuvers (57227) PLAN FOR NEXT VISIT: Detailed neck exam [...] present Head Shake: Negative Positional Testing Right Cisco-Hallpike: No nystagmus;Asymptomatic Left Juan-Hallpike: No nystagmus;Asymptomatic Right [...] Carmen Johnson PT documented in this encounter [facility] 07-07-2022 Note HNO ID: [id number] Author: Glenroy Syed APRN.WINDOWS SERVER ARCHITECT Service: ? Author Type: Nurse Practitioner Type: Progress Notes Filed: 07/07/2022 12:28 PM Note Text: [facility] General Neurology New Patient Evaluation CHIEF COMPLAINT: [...] over a month. 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 A couple times a month she gets [...] for 1 dose.N (more content not included)... [facility] 07-07-2022 Miscellaneous Notes Noted. Provider notified. Received medical records from [facility]. Uploaded to chart and forwarded for review. documented in this encounter [facility] 07-07-2022 Instructions Glenroy Syed APRN.CNP - 07/07/2022 9:06 AM EST Plan: Baseline labs MRI Brain for multiple symptoms ECHO for palpitations and arrhythmias Aspirin 81mg daily in the setting of known arrhythmias Consult to [place] for dizziness Consult to Cardiology for second opinion Consult to ophthalmology Follow up after testing documented in this encounter [facility] 07-07-2022 History of Present illness Narrative Images from the original note were not included. [facility] General Neurology New Patient Evaluation CHIEF COMPLAINT: [...] over a month. 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 A couple times a month she gets [...] Finger Abduction (U) 5 Finger Abduction 5 Machine Buffer 5 Machine Buffer 5 Right Lower Extremity: (of 5) Left [...] over a month. 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 A couple times a month she gets [...] VT reccommended. Patient wanting second opinion from color mixer within the [facility], referral placed. Unlikely autonomic dysfunction with unremarkable tilt and orthostatic vitals in office unconvincing (did not take BB today). Additionally, with visual changes, recommended seeing neuro hat cleaner. Will obtain additional labs as well. Follow [...] which included preparing to see the patient, [id number] patient care, completing clinical documentation, obtaining and/or reviewing separately obtained history, performing a medically appropriate examination, counseling and educating the patient/family/caregiver, ordering medications, tests, or procedures, and care coordination (not separately reported). Glenroy Syed APRN.[facility] [address] [place] [address] Appointment: [phone] In regards to blood work, testing, and [...] your PCP/referring physician documented in this encounter [facility] 03-16-2022 Note EXAM: CHEST 2 VIEWS HISTORY: [...] BETTY MORALES Date: 2022-03-16 18:13 [facility] 12-30-2021 Note [facility] [place], [place] NAME: KAILA VASQUEZ DATE OF : MEDICAL REC#: [id number] SPECIAL EDUCATION PROFESSIONAL: [address] [facility], TRANSADMIT DATE: 12/30/2021 09:02:00 LITHOGRAPHIC CAMERA OPERATOR DATE: 12/30/2021 21:00 DICTATING PHYSICIAN: PAMELLA SANABRIA [...] DR PAMELLA SANABRIA . 01/06/2022 08:31:00 [facility] Evaluation + Plan note No data available for this section [facility] Evaluation note Diagnosis Dizziness- Primary Dizziness and giddiness Migraine aura without headache Migraine with aura, without mention of intractable migraine without mention of status migrainosus Palpitations Chronic fatigue Other malaise and fatigue Vision changes Unspecified visual disturbance Disturbance of skin sensation [facility] Diagnosis Dizziness- Primary Dizziness and giddiness Cervicalgia Headaches [facility]* Diagnosis Dizziness- Primary Dizziness and giddiness Cervicalgia Headaches [facility] Diagnosis Cervicalgia- Primary Dizziness Dizziness and giddiness Vision changes Unspecified visual disturbance Disturbance of skin sensation [facility]* Diagnosis Ocular migraine- Primary Other forms of migraine, without mention of intractable migraine without mention of status migrainosus [facility]* Diagnosis KANG (obstructive sleep apnea)- Primary Obstructive sleep apnea (adult) (pediatric) Dizziness Dizziness and giddiness Palpitations Obesity, morbid, BMI 40.0-49.9 (HCC) Morbid obesity SVT (supraventricular tachycardia) ([facility]) Other specified cardiac dysrhythmias Chronic fatigue Other malaise and fatigue Vitamin D deficiency Unspecified vitamin D deficiency [facility] Diagnosis Degeneration of intervertebral disc of cervical region with osteophyte of cervical vertebra- Primary documented in this encounter [facility] Discharge instructions No data available for this section [facility] Cam InstructionsNot on filedocumented in this encounter [facility] Outpatient Procedure (Routine) - Authorized Specialty Diagnoses / Procedures Referred By Contac t Referred To Contact [facility] [place] Diagnoses Dizziness Palpitations Obesity, morbid, BMI 40.0-49.9 (HCC) Procedures ECG COMPLETE ECG ROUTINE ECG W/LEAST 12 LDS W/I&R Janell Sy MD [address] [place] [address] [facility] [address] [place] [address] Referral ID Status Reason Start Date Expiration Date Visits Requested Visits Authorized [id number] Authorized Auto-Generat ed Referral 08/24/2022 08/24/2023 1 1 Medical Center Summary Purpose Family History No [...] By Contac t Referred To Contact [facility] Diagnoses Degeneration of intervertebral disc of cervical region with osteophyte of cervical vertebra Procedures CONSULT TO [facility] OFFICE/OUTPATIENT [facility] MDM 60-74 MINUTES Glenroy Syed, DISTRICT SALES COORDINATOR.WINDOWS SERVER ARCHITECT [address] [place] [address] Referral ID Status Reason Start Date Expiration Date Visits Requested Visits Authorized [id number] Authorized PCP Requested Referral 10/15/2022 10/15/2023 1 1 Specialty Diagnoses / Procedures Referred By Contac t Referred To Contact Ophthalmology Diagnoses Ocular migraine Procedures CONSULT TO OPHTHALMOLOGY OFFICE/OUTPATIENT [facility] 60-74 MINUTES Len Shea, DISTRICT SALES COORDINATOR.WINDOWS SERVER ARCHITECT [address] Count Includes [facility] [id number] [place] [address] Josefina Grimes MD [address] [place] [address] Referral ID Status Reason Start Date Expiration Date Visits Requested Visits Authorized [id number] Authorized PCP Requested Referral 08/20/2022 08/20/2023 1 1 Specialty Diagnoses / Procedures Referred By Contac t Referred To Contact Cardiology Diagnoses Dizziness Palpitations Procedures CONSULT TO CARDIOLOGY OFFICE/OUTPATIENT [facility] 60-74 MINUTES Glenroy Syed, DISTRICT SALES COORDINATOR.WINDOWS SERVER ARCHITECT [address] [place] [address] Referral ID Status Reason Start Date Expiration Date Visits Requested Visits Authorized [id number] Authorized PCP Requested Referral 2 07/07/2023 1 1 Specialty Diagnoses / Procedures Referred By Contac t Referred To Contact MR IMAGING Diagnoses Dizziness Vision changes Procedures MRI BRAIN WO/W IVCON MRI BRAIN BRAIN STEM W/O W/CONTRAST MATERIAL Glenroy Syed, DISTRICT SALES COORDINATOR.WINDOWS SERVER ARCHITECT [address] [place] [address] Mr Imaging Referral ID Status Reason Start Date Expiration Date Visits Requested Visits Authorized [id number] Authorized Auto-Generat ed Referral 2 08/21/2022 1 1 Specialty Diagnoses / Procedures Referred By Contac t Referred To Contact Ophthalmology Diagnoses Vision changes Procedures CONSULT TO OPHTHALMOLOGY OFFICE/OUTPATIENT [facility] 60-74 MINUTES Glenroy Syed, DISTRICT SALES COORDINATOR.WINDOWS SERVER ARCHITECT [address] [place] [address] Josefina Grimes MD [address] [facility] [place] [address] Referral ID Status Reason Start Date Expiration Date Visits Requested Visits Authorized [id number] Authorized PCP Requested Referral 2 07/07/2023 1 1 Specialty Diagnoses / Procedures Referred By Contac t Referred To Contact [facility] Diagnoses Palpitations Procedures ECHO ECHO TTHRC R-T 2D W/WOM-MODE COMPL SPEC&COLR D Glenroy Syed APRN.WINDOWS SERVER ARCHITECT [address] [place] [address] [facility] [address] [place] [address] Referral ID Status Reason Start Date Expiration Date Visits Requested Visits Authorized [id number] Authorized Auto-Generat ed Referral 2 07/07/2023 1 1 Additional Source Comments INFORMATION SOURCE (unrecogn ized section and content) DATE CREATED AUTHOR 11/24/2021 [facility] DATE CREATED AUTHOR AUTHOR'S ORGANIZ ATION 07/20/2022 [facility] DATE CREATED AUTHOR AUTHOR'S ORGANIZ ATION 09/06/2022 [facility] DATE CREATED AUTHOR AUTHOR'S ORGANIZ ATION 10/16/2022 [facility] DATE CREATED AUTHOR AUTHOR'S ORGANIZ ATION 10/26/2023 [facility] dical [facility] DATE CREATED AUTHOR AUTHOR'S ORGANIZ ATION 11/27/2024 [facility] DATE CREATED AUTHOR AUTHOR'S ORGANIZ ATION 01/04/2025 [facility] DATE CREATED AUTHOR AUTHOR'S ORGANIZ ATION 02/24/2025 [facility] Source Comments (unrecognize d section and content) In the event this informatio n is protected by the Federal Confidentiality of Alcohol and Drug Abuse Patient Records regulations: The Federal rules restrict any use of the information to criminally investigate or prosecute any alcohol or drug abuse patient.[facility] the event this information is protected by the Federal Confidentiality of Alcohol and Drug Abuse Patient Records regulations: The Federal rules restrict any use of the information to criminally investigate or prosecute any alcohol or drug abuse patient.[facility] SystemIn the event this information is protected by the Federal Confidentiality of Alcohol and Drug Abuse Patient Records regulations: The Federal rules restrict any use of the information to criminally investigate or prosecute any alcohol or drug abuse patient.[facility] SystemIn the event this information is protected by the Federal Confidentiality of Alcohol and Drug Abuse Patient Records regulations: The Federal rules restrict any use of the information to criminally investigate or prosecute any alcohol or drug abuse patient.[facility] SystemIn the event this information is protected by the Federal Confidentiality of Alcohol and Drug Abuse Patient Records regulations: The Federal rules restrict any use of the information to criminally investigate or prosecute any alcohol or drug abuse patient.[facility] SystemIn the event this information is protected by the Federal Confidentiality of Alcohol and Drug Abuse Patient Records regulations: The Federal rules restrict any use of the information to criminally investigate or prosecute any alcohol or drug abuse patient.[facility] SystemIn the event this information is protected by the Federal Confidentiality of Alcohol and Drug Abuse Patient Records regulations: The Federal rules restrict any use of the information to criminally investigate or prosecute any alcohol or drug abuse patient.[facility] SystemIn the event this information is protected by the Federal Confidentiality of Alcohol and Drug Abuse Patient Records regulations: The Federal rules restrict any use of the information to criminally investigate or prosecute any alcohol or drug abuse patient.[facility] SystemIn the event this information is protected by the Federal Confidentiality of Alcohol and Drug Abuse Patient Records regulations: The Federal rules restrict any use of the information to criminally investigate or prosecute any alcohol or drug abuse patient.[facility] SystemIn the event this information is protected by the Federal Confidentiality of Alcohol and Drug Abuse Patient Records regulations: The Federal rules restrict any use of the information to criminally investigate or prosecute any alcohol or drug abuse patient.[facility] Reason for Visit (unrecogniz ed section and [...] NEW RS PT VESTIBULAR DIZZY Glenroy Syed, [employer]ISEO.WINDOWS SERVER ARCHITECT [address] [place] [address] Carmen Johnson, PT [address] [place] [address] Referral ID Status Reason Start Date Expiration Date Visits Re quested Visits Authorized [id number] Closed 08/08/2021 08/07/2022 30 30 Reason Comments Physical Therapy Specialty Diagnoses / Procedures Referred By Contac t Referred To Contact PHYSICAL THERAPY Diagnoses Dizziness Procedures Physical Therapy Glenroy Syed, [employer]ISEO.WINDOWS SERVER ARCHITECT [address] [place] [address] [facility] [address] [place] [address] Referral ID Status Reason Start Date Expiration Date V isits Requested Visits Authorized [id number] Pending Review 08/12/2022 11/10/2022 1 1 Reason Comments Establish Care Palpitations Dizziness Specialty Diagnoses / Procedures Referred By Contac t Referred To Contact Cardiology Diagnoses Dizziness Palpitations Procedures CONSULT TO CARDIOLOGY OFFICE/OUTPATIENT NEW HIGH MDM 60-74 MINUTES Glenroy Syed, [employer]ISEO.WINDOWS SERVER ARCHITECT [address] [place] [address] Referral ID Status Reason Start Date Expiration Date V isits Requested Visits Authorized [id number] Closed PCP Requested Referral 07/07/2022 07/07/2023 1 1 Reason Comments Radiology MRI Reason Onset Date Comments neuro referral 10/02/2024 Care Teams (unrecognized sec tion and content) Anaesthesiologist Relationship Specialty Start Date End Date Mert Lama MD [address] [place] [id number] Referring Family Medicine 06/10/22 Anaesthesiologist Relationship Specialty Start Date End Date Mert Lama MD [address] [place] [address] Referring Family Medicine 06/10/22 Anaesthesiologist Relationship Specialty Start Date End Date Mert aLma MD [address] [place] [address] Referring Family Medicine 06/10/22 Anaesthesiologist Relationship Specialty Start Date End Date Mert Lama MD [address] [place] [id number] Referring Family Medicine 06/10/22 Anaesthesiologist Relationship Specialty Start Date End Date Mert Lama MD [address] [place] [address] Referring Family Medicine 06/10/22 Anaesthesiologist Relationship Specialty Start Date End Date Mert Lama MD [address] [place] [id number] Referring Family Medicine 06/10/22 Anaesthesiologist Relationship Specialty Start Date End Date Mert Lama MD [address] [place] [phone] Referring Family Medicine 06/10/22 Anaesthesiologist Relationship Specialty Start Date End Date Mert Lama MD [address] [place] [address] Referring Family Medicine 06/10/22 Anaesthesiologist Relationship Specialty Start Date End Date Mert [...] BE BASED ON THE PRIMARY CLINICAL RECORDS. [employer] provides no warranty or guarantee of the accuracy or completeness of information in this document.
[2025-02-25 07:58] VITALS: BP 121/84; PULSE 75; TEMP 36.6; O2SAT 97
[2025-02-25] MEDS: 0.9 % SODIUM CHLORIDE 500 ML IV ×2 (08:27→09:20)
[2025-02-25] MEDS: BUPIVACAINE HCL 0.25% PF 25 MG/10 ML VIAL 2 ML INJ (09:29)
[2025-02-25] MEDS: DEXAMETHASONE SOD PHOS 10 MG/ML VIAL INJ (09:29)
[2025-02-25] MEDS: LIDOCAINE HCL 2% 400 MG/20 ML MDV 6 ML INJ (09:29)
--- NOTE | 2025-02-25 09:36 | P.ON_ITS ---
Date of procedure: 02/25/25 Pre-op diagnosis: Pain due to cervical spondylosis without myelopathy Post-op diagnosis: same as pre-op Procedure: Procedure: Right C4-5, 5-6 radiofrequency ablation Medications: Bupivacaine 0.25% 2cc, dexamethasone 10mg, lidocaine 2% 3cc The patient was seen and examined in the preoperative holding area.? The site was marked.? Written informed consent was obtained and placed on the chart.? The patient was brought to the medical procedure unit and placed in the prone position.? A timeout was completed verifying correct patient, procedure, positioning, and special requirements.? The skin overlying the target points, the designated medial branch, was prepped and draped in the usual sterile fashion.? The target point was achieved with a 20-gauge 15 cm with a 10 mm curved active tip radiofrequency cannula under direct fluoroscopic visualization .? The needle was inserted at level C4 on the right side. Needle tip position was confirmed with lateral fluoroscopic position.? Motor stimulation was carried out at 2 Hz up to 5 volts with the absence of extremity activity.? This was repeated at level C5, 6 on right side.?? Sensory stimulation was carried out.? Concordant pain was realized at the above- mentioned sites.? Then radiofrequency lesioning was carried out times 90 seconds at 80 degrees times 2 lesions at each level.? The radiofrequency probe was removed prior to cannula removal.? The above-mentioned injectate was placed in 1 mL increments.? The needle was removed.? Insertion sites were covered.? The patient was taken to the postoperative recovery area and monitored for an appropriate length of time before being found suitable for discharge in the company of a responsible adult. Anesthesia: MAC Surgeon: Ari Sellers Pathology: none sent Condition: stable Disposition: no change
[2025-02-25 09:39] VITALS: BP 111/78; PULSE 74; TEMP 36.6; O2SAT 100
[2025-02-25 09:41] VITALS: BP 117/74; PULSE 80; TEMP 36.6; O2SAT 98
== END 2025-02-25 10:04 | disposition home or self-care (01) ==
LOC: SURGOUT 07:45
PROVIDERS: PCP Nurse Practitioner; Visit Provider Anesthesiology
PROC: (CPT 1939; principal; 2025-02-25 09:00)
DX: M47.812 Spondylosis without myelopathy or radiculopathy, cervical region (principal); E66.01 Morbid (severe) obesity due to excess calories; Z68.41 Body mass index [BMI] 40.0-44.9, adult; G47.33 Obstructive sleep apnea (adult) (pediatric); K21.9 Gastro-esophageal reflux disease without esophagitis; Z87.442 Personal history of urinary calculi
CPT/HCPCS: 64633; 64634; J0665; J1100; J2704

== ENCOUNTER 2025-03-11 06:29 | Day surgery (SDC) | payer BC, SELFPAY ==
--- OUTSIDE RECORDS SUMMARY | 2025-03-11 06:32 | XMS_ITS | CCD ---
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 Name Role Phone MERT LAMA Referring Unavailable [...] Bangura Attending Unavailable MAURI CHUN Attending Unavailable POULTANISHA, GLENROY Referring Unavailable IRMA CORTES Attending Unavailable IRMA CORTES Attending Unavailable Mert Lama MD Primary Care Provider Cristiane Gutiérrez Attending Unavailable Brock, Cristiane Bangura Attending Unavailable BrockCristiane Attending Unavailable Brock, Cristiane Bangura Attending Unavailable VISHAL ROGERS Attending Unavailable VISHAL ROGERS Referring Unavailable VISHAL ROGERS Referring Unavailable MANUELJONNY Menendez Referring Unavailable SUE, VISHAL Referring Unavailable SUE, VISHAL Referring Unavailable SUE, VISHAL Referring Unavailable MANUEL, JONNY Referring Unavailable MANUEL, JONNY Referring Unavailable MANUEL, JONNY Referring Unavailable SUE, VISHAL Referring Unavailable MANUEL, JONNY Referring Unavailable SUE, VISHAL Referring Unavailable SUE, VISHAL Referring Unavailable Giedraitis , Ari Fuller Attending Unavailable Giedraitis , Ari Fuller Attending Unavailable Giedraitis , Ari Fuller Attending Unavailable Giedraitis , Ari Fuller Attending Unavailable Medications Current Medications [...] on above: Take 1 capsule by mo [facility] once daily. 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 source) Other residential (current) drug therapy; Translations: [OTH NURSING HOME CURRENT DRUG THERAPY] Onset: 09-06-2022 Episodic Other [...] Value Interpretation Reference Range Facility Orders Onlyon 02-23-2025 Orders Only [id number] Bacilio Vasquez y N 1980 F Date Provider Department Center 02/23/2025 MARI HIGH HVC CARD [facility] No family history on file [facility] Office Visiton 01-15-2025 Follow-up visit [id number] Bacilio Vasquez y N 1980 F Date Provider Department Center 01/15/2025 VISHAL VERDUGO CARD Kail[facility] No family history on file Level of Service:27437 NE OFFICE/OUTPATIENT ESTABLISHED LOW MDM 20 MIN Normal [facility] Orders Onlyon 12-24-2024 Orders Only [id number] Bacilio Vasquez y N 1980 F Date Provider Department Center 12/24/2024 MARI HIGH HVC CARD [facility] No family history on file [facility] 3612-11-2024 36 Patient has not been seen since 2022 will need in person appointment for further refills Normal [facility] 3612-07-2024 36 Patient has not been seen since 2022 [facility] Family Medicine Office/Clini c Noteon 11-16-2024 [...] day(s), # 14 tab(s), Refills(s) 0, Pharmacy: [id number], 165.1, cm, 11/15/24 15:29:00 EDT, Height/Length Dosing, 116, kg, 11/15/24 15:29:00 EDT, Weight Dosing 2. Ear pain (H92.09: Otalgia, unspecified ear) augmentin sent in. pt to use debrox and return for ear irrigation in 7-10 days Ordered: amoxicillin-clavulanat e, = 1 tab(s), Oral, q12hr, X 7 day(s), # 14 tab(s), Refills(s) 0, [id number], 165.1, cm, 11/15/24 15:29:00 EDT, Height/Length [...] day(s), # 14 tab(s), Refills(s) 0, [id number], 165.1, cm, 11/15/24 15:29:00 EDT, Height/Length Dosing, 116, kg, 11/15/24 15:29:00 EDT, Weight Dosing 4. Non-smoker (Z78.9: Other specified health status) continue not smoking Ordered: amoxicillin-clavulanat e, = 1 tab(s), Oral, q12hr, X 7 day(s), # 14 tab(s), Refills(s) 0, [id number], 165.1, cm, 11/15/24 15:29:00 EDT, Height/Length [...] 50,000 intl units (1.25 mg) oral capsule, 39288 International_Unit= 1 cap(s), Oral, qWeek Allergies No [...] vaccine 09/10/2020 (more content not included)... Normal [facility] Comment on above: Result Comment: Elec tronically Signed By: Cristiane Brasher\.leia\Date and Time Signed: 11/16/24 14:28 EDT 36on 11-05-2024 36 Patient will need follow up appointment for further refills has not been seen since 2022 Normal [facility] Family Medicine Office/Clini c Noteon 09-12-2024 [...] tunnel vision and muscle spasm to bilateral gnosticism and sharp pain to right gnosticism. Tongue/whole mouth felt like it had an [...] referral to [facility] sent Ordered: [facility] External Ambulatory Referral 2. Facial tingling (R20.2: Paresthesia of skin) pt had episode when she had facial tingling, and in her mouth. she states it felt like she put a battery to her tongue. Ordered: [facility] External Ambulatory Referral 3. Pressure in head (R51.9: Headache, unspecified) c/o constant pressure of her head. Ordered: [facility] External Ambulatory Referral 4. 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 so much that it made her glasses move up and down. referral to neurology sent Ordered: [facility] External Ambulatory Referral 5. Right [...] 114.6, kg, 12/19/23 13:17:00 EDT, Weight Dosing [facility] External Ambulatory Referral 9. Non-smoker [...] PAIN, # 30 tab(s), Refills(s) 0, [facility] [...] Metoprolol tart (more content not included)... Normal [facility] Comment on above: Result Comment: Elec [...] you for choosing us for your care. [facility] ED Note-Physicianon 01-03-20 24 ED Note-Physician [id number]#1.00 TIFF [facility] RAD - MRI Reporton RAD - MRI Report [id number]#1.0 0TIFF [facility] RAD - MRI Report [id number]#1.0 0TIFF [facility] RAD - MRI Report [id number]#1.00 TIFF [facility] RAD - MRI Report [id number]#1.00 TIFF [facility] RAD - MRI Report [id number]#1.0 0TIFF [facility] RAD - MRI Report [id number]#1.00 TIFF [facility] Physician Orderon 12-22-2023 Physician Order [id number]#1.00 TIFF [facility] Provider Letteron 12-21-2023 Provider Letter December 21, 2023 KAILA VASQUEZ [address] [place] [address] : 1980 To Whom It May Concern, Please excuse above patient from work. Date of Illness: From: 12/19/2023 To: 12/21/2023 May Return to Work On: 12/22/2023 Sincerely, HARPREET Stewart [address] [address] Normal [facility] Lab Reportson 12-20-2023 Lab Reports [id number]#1.00 TIFF Normal [facility] Physician Orderon 12-20-2023 Physician Order [id number]#1.00 TIFF Normal [facility] RAD - MISCon 12-20-2023 RAD - MISC [id number]#1.00 TIFF Normal [facility] Ambulatory Visit Summaryon 0 12-19-2023 Ambulatory [...] [id number] [address], [place] [phone] Medications and Immunizations Administered Given ketorolac 30 [...] for choosing us for your care. 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 Had x-ray done at [facility] for spine over a year or more [...] Anemia Anxiety (more content not included)... Normal [facility] Comment on above: Result Comment: Elec tronically Signed By: Cristiane Brasher\.br\Date and Time Signed: 12/19/23 13:59 EDT Physician Orderon 12-19-2023 Physician Order [id number]#1.00 TIFF Normal [facility] MRI BRAIN WO/W IVCONon 10-14 MRI [...] cord. No mass or pathologic intradural enhancement. Travel Counselor: [facility] Transcribe Date/Time: Oct 14 2022 8:43P Dictated by : UNIQUE ANDERSON MD This examination was interpreted and the report reviewed and electronically signed by: UNIQUE ANDERSON MD on Oct 14 2022 8:51PM EST [id number] Normal [facility] MRI CERVICAL SPINE WO/W IVCO Non [...] cervical spine without and with intravenous contrast. : MRBWOW_2 Contrast: 20 mL Dotarem IV COMPARISON: [...] cord. No mass or pathologic intradural enhancement. Travel Counselor: NARCISO Transcribe Date/Time: Mar 9 2023 8:43P Dictated by : UNIQUE ANDERSON MD This examination was interpreted and the report reviewed and electronically signed by: UNIQUE ANDERSON MD on Oct 14 2022 8:51PM EST [id number] Normal [facility] CBC AUTO DIFFon 09-02-2022 BASO # 0.1 103/ul Normal 0.0-0.1 [facility] Comment on above: Performed By: #### C MP, TSH, HSTROPN #### [facility] [address] [place] [address] Dr. Christos Fallon Basophils/100 WBC (Bld) 0.5 % Normal 0.2-2.0 [facility] Comment on above: Performed By: #### C MP, TSH, HSTROPN #### [facility] [address] [place] [address] Dr. Christos Fallon EO # 0.2 103/ul Normal 0.0-0.7 [facility] Comment on above: Performed By: #### C MP, TSH, HSTROPN #### [facility] [address] [place] [address] Dr. Christos Fallon Eosinophils/100 WBC (Bld) 2.3 % Normal 0.9-7.0 [facility] Comment on above: Performed By: #### C MP, TSH, HSTROPN #### [facility] [address] [place] [address] Dr. Christos Fallon Erythrocyte distribution width (RBC) [Ratio] 13.0 % Normal 11.0-15.0 [facility] Comment on above: Performed By: #### C MP, TSH, HSTROPN #### [facility] [address] [place] [address] Dr. Christos Fallon Hematocrit (Bld) [Volume fraction] 43.0 % Normal 36.0-48.0 [facility] Comment on above: Performed By: #### C MP, TSH, HSTROPN #### [facility] [address] [place] [address] Dr. Christos Fallon Hemoglobin (Bld) [Mass/Vol] 13.9 g/dL Normal 12.0-16.0 [facility] Comment on above: Performed By: #### C MP, TSH, HSTROPN #### [facility] [address] [place] [address] Dr. Christos Fallon IG # 0.03 10e3/ul Normal 0.00-0.03 [facility] Comment on above: Performed By: #### C MP, TSH, HSTROPN #### [facility] [address] [place] [address] Dr. Christos Fallon IG % 0.3 % Normal 0.0-0.5 [facility] Comment on above: Performed By: #### C MP, TSH, HSTROPN #### [facility] [address] [place] [address] Dr. Christos Fallon LYMPH # 2.8 103/ul Normal 1.2-3.8 [facility] Comment on above: Performed By: #### C MP, TSH, HSTROPN #### [facility] [address] [place] [address] Dr. Christos Fallon Lymphocytes/100 WBC (Bld) 29.6 % Normal 20.5-60.0 [facility] Comment on above: Performed By: #### C MP, TSH, HSTROPN #### [facility] [address] [place] [address] Dr. Christos Fallon MANUAL DIFF REQ NO Normal [facility] Comment on above: Performed By: #### C MP, TSH, HSTROPN #### [facility] [address] [place] [address] Dr. Christos Fallon MCH (RBC) [Entitic mass] 34.8 pg Critically high 26.7-34.0 [facility] Comment on above: Performed By: #### C MP, TSH, HSTROPN #### [facility] [address] [place] [address] Dr. Christos Fallon MCHC (RBC) [Mass/Vol] 32.3 g/dL Normal 29.9-35.2 [facility] Comment on above: Performed By: #### C MP, TSH, HSTROPN #### [facility] [address] [place] [address] Dr. Christos Fallon MCV (RBC) [Entitic vol] 107.5 fL Critically high 81.0-99.0 [facility] Comment on above: Performed By: #### C MP, TSH, HSTROPN #### [facility] [address] [place] [address] Dr. Christos Fallon MONO # 0.7 103/ul Normal 0.3-0.8 [facility] Comment on above: Performed By: #### C MP, TSH, HSTROPN #### [facility] [address] [place] [address] Dr. Christos Fallon Monocytes/100 WBC (Bld) 7.7 % Normal 1.7-12.0 [facility] Comment on above: Performed By: #### C MP, TSH, HSTROPN #### [facility] [address] [place] [address] Dr. Christos Fallon NEUT # 5.7 103/ul Normal 1.4-6.5 [facility] Comment on above: Performed By: #### C MP, TSH, HSTROPN #### [facility] [address] [place] [address] Dr. Christos Fallon Neutrophils/100 WBC (Bld) 59.6 % Normal 43.0-75.0 [facility] Comment on above: Performed By: #### C MP, TSH, HSTROPN #### [facility] [address] [place] [address] Dr. Christos Fallon Platelet mean volume (Bld) [Entitic vol] 9.9 fL Normal 9.5-13.5 [facility] Comment on above: Performed By: #### C MP, TSH, HSTROPN #### [facility] [address] [place] [address] Dr. Christos Fallon PLT 309 103/ul Normal 150-450 [facility] Comment on above: Performed By: #### C MP, TSH, HSTROPN #### [facility] [address] [place] [address] Dr. Christos Fallon RBC 4.00 106/ul Critically low 4.20-5.40 [facility] Comment on above: Performed By: #### C MP, TSH, HSTROPN #### [facility] [address] [address] [address] Christos Fallon WBC 9.6 103/ul Normal 4.0-11.0 [facility] Comment on above: Performed By: #### C MP, TSH, HSTROPN #### [facility] [address] [address] [address] Christos Fallon D-DIMERon 09-02-2022 D-DIMER 0.28 mg/L FEU Normal <=0.59 [facility] Comment on above: Performed By: #### C MP, TSH, HSTROPN #### [facility] [address] [place] [address] Dr. Christos Fallon D-DIMER COMMENTS SEE BELOW Normal [facility] Comment on above: Result Comment: [...] #### C MP, TSH, HSTROPN #### [facility] [address] [place] [address] Dr. Christos Fallon PROF 14(COMP METB)on 023 Albumin [Mass/Vol] 3.8 g/dL Normal 3.4-5.[address] [facility] Comment on above: Performed By: #### C MP, TSH, HSTROPN #### [facility] [address] [address] [address] Christos Fallon Albumin/Globulin [Mass ratio] 1.2 {ratio} Normal [facility] Comment on above: Performed By: #### C MP, TSH, HSTROPN #### [facility] [address] [address] [address] Christos Fallon ALP [Catalytic activity/Vol] 85 U/L Normal 46-116 [facility] Comment on above: Performed By: #### C MP, TSH, HSTROPN #### [facility] [address] [place] [address] Dr. Christos Fallon ALT [Catalytic activity/Vol] 39 U/L Normal 14-59 [facility] Comment on above: Performed By: #### C MP, TSH, HSTROPN #### [facility] [address] [place] [address] Dr. Christos Fallon Anion gap [Moles/Vol] 16.3 mmol/L Normal [facility] Comment on above: Performed By: #### C MP, TSH, HSTROPN #### [facility] [address] [place] [address] Dr. Christos Fallon AST [Catalytic activity/Vol] 19 U/L Normal 15-37 [facility] Comment on above: Performed By: #### C MP, TSH, HSTROPN #### [facility] [address] [place] [address] Dr. Christos Fallon Bilirubin [Mass/Vol] 0.4 mg/dL Normal 0.2-1.0 [facility] Comment on above: Performed By: #### C MP, TSH, HSTROPN #### [facility] [address] [place] [address] Dr. hCristos Fallon Calcium [Mass/Vol] 9.2 mg/dL Normal 8.5-10.[address] [facility] Comment on above: Performed By: #### C MP, TSH, HSTROPN #### [facility] [address] [place] [address] Dr. Christos Fallon Chloride [Moles/Vol] 101 mmol/L Normal 98-107 [facility] Comment on above: Performed By: #### C MP, TSH, HSTROPN #### [facility] [address] [place] [address] Dr. Christos Fallon CO2 [Moles/Vol] 24.9 mmol/L Normal 21.0-32.0 [facility] Comment on above: Performed By: #### C MP, TSH, HSTROPN #### [facility] [address] [address] [address] Christos Fallon Creatinine [Mass/Vol] 0.83 mg/dL Normal 0.55-1.02 [facility] Comment on above: Performed By: #### C MP, TSH, HSTROPN #### [facility] [address] [address] [address] Christos Fallon EGFR-AF CENTRAL AFRICAN >60 Normal >=60 [facility] Comment on above: Performed By: #### C MP, TSH, HSTROPN #### [facility] [address] [place] [address] Dr. Christos Fallon EGFR-NON AF CENTRAL AFRICAN >60 Normal >=60 [facility] Comment on above: Performed By: #### C MP, TSH, HSTROPN #### [facility] [address] [place] [address] Dr. Christos Fallon Globulin (S) [Mass/Vol] 3.2 g/dL Normal [facility] Comment on above: Performed By: #### C MP, TSH, HSTROPN #### [facility] [address] [place] [address] Dr. Christos Fallon Glucose [Mass/Vol] 142 mg/dL Critically high 74-106 [facility] Comment on above: Performed By: #### C MP, TSH, HSTROPN #### [facility] [address] [place] [address] Dr. Christos Fallon Potassium [Moles/Vol] 3.2 mmol/L Critically low 3.5-5.1 [facility] Comment on above: Performed By: #### C MP, TSH, HSTROPN #### [facility] [address] [place] [address] Dr. Christos Fallon Protein [Mass/Vol] 7.0 g/dL Normal 6.4-8.[address] [facility] Comment on above: Performed By: #### C MP, TSH, HSTROPN #### [facility] [address] [place] [address] Dr. Christos Fallon Sodium [Moles/Vol] 139 mmol/L Normal 136-[address] [facility] Comment on above: Performed By: #### C MP, TSH, HSTROPN #### [facility] [address] [place] [address] Dr. Christos Fallon Urea nitrogen [Mass/Vol] 10.0 mg/dL Normal 7.0-18.0 [facility] Comment on above: Performed By: #### C MP, TSH, HSTROPN #### [facility] [address] [place] [address] Dr. Christos Fallon Urea nitrogen/Creatinine [Mass ratio] 12.0 mg/mg Normal [facility] Comment on above: Performed By: #### C MP, TSH, HSTROPN #### [facility] [address] [place] [address] Dr. Christos Fallon PROTIMEon 09-02-2022 INR Coag (PPP) [Relative time] {INR} Normal [facility] Comment on above: Performed By: #### C MP, TSH, HSTROPN #### [facility] [address] [place] [address] Dr. Christos Fallon INR GUIDELINES SEE BELOW Normal [facility] Comment on above: Result Comment: GUALBERTO RED INR: 2.0 - 3.0 CONDITIONS NOT LISTED BELOW 2.5 - 3.5 FOR PROSTHETIC HEART VALVE REPLACEMENT 2.5 - 3.5 RECURRENT THROMBOSIS Performed By: #### C MP, TSH, HSTROPN #### [facility] [address] [place] [address] Dr. Christos Fallon PT Coag (PPP) [Time] 9.7 s Normal 9.0-11.6 [facility] Comment on above: Performed By: #### C MP, TSH, HSTROPN #### [facility] [address] [place] [address] Dr. Christos Fallon PTTon 09-02-2022 aPTT Coag (Bld) [Time] 25.9 s Normal 22.3-36.2 [facility] Comment on above: Performed By: #### C MP, TSH, HSTROPN #### [facility] [address] [address] [address] Christos Fallon TROPONIN, HIGH SENSITIVITYon 09-02-2022 HSTROP <4.0 Normal 4.0-51.3 [facility] Comment on above: Result Comment: CUT- OFF POINTS HAVE BEEN ESTABLISHED BASED ON THE FOURTH UNIVERSAL DEFINITIONS OF MYOCARDIAL INFARCTION. THE UPPER REFERENCE LIMIT (URL) OF TROPONIN, DEFINED THE 99TH PERCENTILE OF cTnI DISTRIBUTION IN A REFERENCE POPULATION, HAS BEEN CONFIRMED THE DECISION THRESHOLD FOR DC DIAGNOSIS. Performed By: #### C MP, TSH, HSTROPN #### [facility] [address] [place] [address] Dr. Christos Fallon TSHon 09-02-2022 TSH 0.813 uIU/mL Normal 0.358-3.740 [facility] Comment on above: Performed By: #### C MP, TSH, HSTROPN #### [facility] [address] [place] [address] Dr. Christos Fallon XR CHEST 1 Von [...] by: LEEANNE MON Date: 2022-09-02 15:09 Normal [facility] CNOVon 08-24-2022 CNOV Office Visit (CARDLO ) KAILA VASQUEZ ([id number]) 1980 F Date Time Provider Department 08/24/22 2:00 PM JANELL SY During your visit today, we recorded the following information about you: Pulse Blood pressure Weight Height 88/minute 112/73 112.9 kg 1.626 m Janell Sy MD 08/24/2022 2:17 PM Signed [facility] [place] SECTION OF REGIONAL CARDIOLOGY OUTPATIENT VISIT DATE [...] Cardiac work-up includes: Echocardiogram on 05/19/2020 at [facility] showed normal ejection fraction. [...] COMPLETE 4. Obesity, morbid, BMI 40.0-49.9 ([facility]) E66.01 ECG COMPLETE 5. SVT (supraventricular tachycardia) ([facility]) I47.1 6. Chronic fatigue R53.82 [...] apnea) Palpitatio (more content not included)... Normal [facility] ECG COMPLETEon 08-24-2022 ECG COMPLETE Ventricular Rate : 8 4 BPM Atrial Rate : 84 BPM P-R Interval : 166 ms QRS Duration : 92 ms Q-T Interval : 358 ms QTC Calculation(Bazett) : 423 ms Calculated P Sumter : 60 degrees Calculated R Sumter : 45 degrees Calculated T Sumter : 45 degrees NORMAL SINUS RHYTHM INCREASED R/S RATIO IN V1, CONSIDER EARLY TRANSITION OR POSTERIOR INFARCT ABNORMAL ECG Confirmed by MEERA BOYD M.D. ([id number]) on 08/28/2022 3:03:10 PM NAME : KAILA VASQUEZ PID : [id number] : 1980 Gender : Female Race : ORD : [id number] Procedure Date : Aug 24 2022 13:56:02 Edit Date : Aug 28 2022 15:03:10 Diagnosis: NORMAL SINUS RHYTHM INCREASED R/S RATIO IN V1, CONSIDER EARLY TRANSITION OR POSTERIOR INFARCT ABNORMAL ECG Confirmed by MEERA BOYD M.D. ([id number]) on 08/28/2022 3:03:10 PM Test Reason : Location : 145 : [facility] Overread By : MEERA BYOD M.D. Edited By : MEERA BOYD M.D. Referred By : JANELL SY Acquired by : Jose browning [facility] CNTHERAPYon 08-12-2022 CNTHERAPY OT/PT/Speech Visit [facility] KAILA VASQUEZ Emily ([id number]) 1980 F Date Time Provider Department 08/12/22 2:[address] [facility] Date Time Provider Department Center 08/12/2022 2:45 PM [id number], KARA [facility] [place] Reason for Visit: Physical Therapy [503] Primary [...] % (flush) 10 mL (BD POSIFLUSH) Normal [facility] CNTHERAPYon 08-05-2022 CNTHERAPY OT/PT/Speech Visit ([facility]. [facility]) KAILA VASQUEZ ([id number]) 1980 F Date Time Provider Department 08/05/22 9:[address] [facility] [facility] Date Time Provider Department [place] 08/05/2022 9:15 AM [id number], [facility] Reason for Visit: PT Eval [747] [...] % (flush) 10 mL (BD POSIFLUSH) Normal [facility] Cov[facility]on 07[facility]09 SARS-CoV-2 (COVID-19) RNA LEROY+probe Ql (Unsp spec) Not detected Normal NOT DETECTED [facility] Comment on above: Result Comment: [...] for this test is supported by the [employer] Maker of Health and Human Service's declaration that [...] Performed By: #### C VDAGA #### [facility] [address] [place] [address] Dr. Christos Fallon 25(OH)D3 [facility] 2021 25-hydroxyvitamin D3 [Mass/Vol] 15.8 ng/mL Low 31.0-80.0 [facility] Comment on above: Order Comment: Speci men Type: BLOOD SPECIMENOrdering Facility: [facility] Address: [address] [place] [address] Result Comment: Clas sification of 25 OH Vitamin D status: Deficiency/Insufficiency: < or = 30 ng/ml. Sufficiency/Optimal Levels: 31-80 ng/mL Toxicity: > 100 ng/mL. Test performed by chemiluminescent immunoassay. Performed By: #### 1 989-3 ####[facility] LABIA [id number] [place] [address] [place] ESEQUIEL BY IFA WITH REFLEXon ESEQUIEL PATTERN Nuclear fine speckled Normal Cl [facility] Comment on above: Order Comment: Speci men Type: BLOOD SPECIMENOrdering Facility: [facility] Address: [address] [place] [address] Performed By: #### 2 9374-6, 83786-4, 67501-4, 89944-6, 18393-7, ANAIFR, 73787-3, 26121-7, 07882-7, 17855-5 ####[facility] LABIA [id number] [place] [address] [place] ESEQUIEL TITER 1:160 Normal [facility] Comment on above: Order Comment: Speci men Type: BLOOD SPECIMENOrdering Facility: [facility] Address: [address] [place] [address] Performed By: #### 2 9374-6, 25084-7, 35459-6, 71203-3, 30931-0, ANAIFR, 91563-9, 63267-6, 04961-2, 31822-9 ####[facility] LABIA [id number] [place] [address] [place] Nuclear Ab IF (S) [Titer] Positive Abnormal Negative [facility] Comment on above: Order Comment: Speci men Type: BLOOD SPECIMENOrdering Facility: [facility] Address: [address] [place] [address] Result Comment: Anti -nuclear antibody test is used as an aid in diagnosis of systemic autoimmune diseases. Where positive and clinically warranted, follow-up using disease-specific testing is recommended. Low positive titers are not uncommon with advanced age, certain chronic infections, and malignancies among others. Test methodology: Indirect fluorescence immunoassay (IFA) using HEp-2 cells. Performed By: #### 2 9374-6, 24420-8, 06760-5, 17274-3, 87944-1, ANAIFR, 17323-5, 99149-5, 94077-1, 41790-5 ####[facility] LABCLIA [id number] [place] [address] [place] Basic metabolic 2000 panelon 07-07-2022 Anion gap [Moles/Vol] 13 mmol/L Normal 9-18 [facility] Comment on above: Order Comment: Speci men Type: BLOOD SPECIMENOrdering Facility: [facility] Address: [address] [place] [address] Performed By: #### 2 4321-2 ####[facility] LABCLIA [id number] [place] [address] [place] Calcium [Mass/Vol] 9.3 mg/dL Normal 8.5-10.2 [facility] Comment on above: Order Comment: Speci men Type: BLOOD SPECIMENOrdering Facility: [facility] Address: [address] [place] [address] Performed By: #### 2 4321-2 ####[facility] LABCLIA [id number] [place] [address] [place] Chloride [Moles/Vol] 102 mmol/L Normal 97-105 [facility] Comment on above: Order Comment: Speci men Type: BLOOD SPECIMENOrdering Facility: [facility] Address: [address] [address] Performed By: #### 2 4321-2 ####[facility] LABCLIA [id number] MEAD[address] SARAH [id number] [address] [place] CO2 [Moles/Vol] 23 mmol/L Normal 22-30 [facility] Comment on above: Order Comment: Speci men Type: BLOOD SPECIMENOrdering Facility: [facility] Address: [address] [place] [address] Performed By: #### 2 4321-2 ####[facility] LABCLIA [id number] [place] [address] [place] Creatinine [Mass/Vol] 0.72 mg/dL Normal 0.58-0.96 [facility] Comment on above: Order Comment: Speci men Type: BLOOD SPECIMENOrdering Facility: [facility] Address: [address] [place] [address] Performed By: #### 2 4321-2 ####[facility] LABCLIA [id number] [address] [place] ESTIMATED GLOMERULAR FILTRATION RATE 109 mL/min/1.73m??? Normal >=60 [facility] Comment on above: Order Comment: Speci men Type: BLOOD SPECIMENOrdering Facility: [facility] Address: [address] [place] [address] Result Comment: Dina mated Glomerular Filtration Rate [...] By: #### 2 4321-2 ####[facility] LABCLIA [id number] [place] [address] [place] Glucose [Mass/Vol] 98 mg/dL Normal 74-99 [facility] Comment on above: Order Comment: Speci men Type: BLOOD SPECIMENOrdering Facility: [facility] Address: [address] [place] [address] Result Comment: The [place] Diabetes Association (ADA) provides guidance for cutoff [...] Standards of Medical Care in Diabetes 2016, [place] Diabetes Association. Diabetes Care. 2016.39(Suppl 1). Performed By: #### 2 4321-2 ####[facility] LABCLIA [id number] [place] [address] [place] Potassium [Moles/Vol] 4.1 mmol/L Normal 3.7-5.1 [facility] Comment on above: Order Comment: Speci men Type: BLOOD SPECIMENOrdering Facility: [facility] Address: [address] [address] Performed By: #### 2 4321-2 ####[facility] LABCLIA [id number] [place] [address] [place] Sodium [Moles/Vol] 138 mmol/L Normal 136-144 [facility] Comment on above: Order Comment: Speci men Type: BLOOD SPECIMENOrdering Facility: [facility] Address: [address] [address] Performed By: #### 2 4321-2 ####[facility]CLIA [id number] [place] [address] [place] Urea nitrogen [Mass/Vol] 8 mg/dL Normal 7-21 [facility] Comment on above: Order Comment: Speci men Type: BLOOD SPECIMENOrdering Facility: [facility] Address: [address] [address] Performed By: #### 2 4321-2 ####[facility]CLIA [id number] [place] [address] [place] Anion gap [Moles/Vol] [...] Basophils (Bld) [#/Vol] 0.04 10*3/uL Normal <0.11 [facility] Comment on above: Order Comment: Speci men Type: BLOOD SPECIMENOrdering Facility: [facility] Address: [address] [address] Performed By: #### 5 7021-8 ####[facility] LABCLIA [id number] [place] [address] [place] Basophils/100 WBC (Bld) 0.5 % Normal [facility] Comment on above: Order Comment: Speci men Type: BLOOD SPECIMENOrdering Facility: [facility] Address: [address] [address] Performed By: #### 5 7021-8 ####[facility] LABCLIA [id number] [place] [address] [place] Differential cell count method Nom (Bld) Auto Normal [facility] Comment on above: Order Comment: Speci men Type: BLOOD SPECIMENOrdering Facility: [facility] Address: [address] [place] [address] Performed By: #### 5 7021-8 ####[facility] LABCLIA [id number] [place] [address] [place] Eosinophils (Bld) [#/Vol] 0.29 10*3/uL Normal <0.46 [facility] Comment on above: Order Comment: Speci men Type: BLOOD SPECIMENOrdering Facility: [facility] Address: [address] [place] [address] Performed By: #### 5 7021-8 ####[facility] LABCLIA [id number] [place] [address] [place] Eosinophils/100 WBC (Bld) 3.9 % Normal [facility] Comment on above: Order Comment: Speci men Type: BLOOD SPECIMENOrdering Facility: [facility] Address: [address] [place] [address] Performed By: #### 5 7021-8 ####[facility] LABCLIA [id number] [place] [address] [place] Erythrocyte distribution width (RBC) [Ratio] 12.1 % Normal 11.5-15.0 [facility] Comment on above: Order Comment: Speci men Type: BLOOD SPECIMENOrdering Facility: [facility] Address: [address] [place] [address] Performed By: #### 5 7021-8 ####[facility] LABCLIA [id number] [place] [address] [place] Hematocrit (Bld) [Volume fraction] 43.5 % Normal 36.0-46.0 [facility] Comment on above: Order Comment: Speci men Type: BLOOD SPECIMENOrdering Facility: [facility] Address: [address] [address] Performed By: #### 5 7021-8 ####[facility] LABIA [id number] [place] [address] [place] Hemoglobin (Bld) [Mass/Vol] 14.9 g/dL Normal 11.5-15.5 [facility] Comment on above: Order Comment: Speci men Type: BLOOD SPECIMENOrdering Facility: [facility] Address: [address] [address] Performed By: #### 5 7021-8 ####[facility] LABCLIA [id number] [place] [address] [place] Immature granulocytes (Bld) [#/Vol] 0.03 10*3/uL Normal <0.10 [facility] Comment on above: Order Comment: Speci men Type: BLOOD SPECIMENOrdering Facility: [facility] Address: [address] [address] Performed By: #### 5 7021-8 ####[facility] LABIA [id number] [place] [address] [place] Immature granulocytes/100 WBC (Bld) 0.4 % Normal [facility] Comment on above: Order Comment: Speci men Type: BLOOD SPECIMENOrdering Facility: [facility] Address: [address] [place], [place] [address] Performed By: #### 5 7021-8 ####[facility] LABIA [id number] [place] [address] [place] Lymphocytes (Bld) [#/Vol] 1.71 10*3/uL Normal 1.00-4.00 [facility] Comment on above: Order Comment: Speci men Type: BLOOD SPECIMENOrdering Facility: [facility] Address: [address] [place], [place] [address] Performed By: #### 5 7021-8 ####[facility] LABCLIA [id number] [place] [address] [place] Lymphocytes/100 WBC (Bld) 23.2 % Normal [facility] Comment on above: Order Comment: Speci men Type: BLOOD SPECIMENOrdering Facility: [facility] Address: [address] [place] [address] Performed By: #### 5 7021-8 ####[facility] LABIA [id number] [place] [address] [place] MCH (RBC) [Entitic mass] 34.1 pg High 26.0-34.0 [facility] Comment on above: Order Comment: Speci men Type: BLOOD SPECIMENOrdering Facility: [facility] Address: [address] [place] [address] Performed By: #### 5 7021-8 ####[facility] [id number] [place] [address] [place] MCHC (RBC) [Mass/Vol] 34.3 g/dL Normal 30.5-36.0 [facility] Comment on above: Order Comment: Speci men Type: BLOOD SPECIMENOrdering Facility: [facility] Address: [address] [place] [address] Performed By: #### 5 7021-8 ####[facility]IA [id number] [place] [address] [place] MCV (RBC) [Entitic vol] 99.5 fL Normal 80.0-100.0 [facility] Comment on above: Order Comment: Speci men Type: BLOOD SPECIMENOrdering Facility: [facility] Address: [address] [place] [address] Performed By: #### 5 7021-8 ####[facility] LABIA [id number] [place] [id number] [place] Monocytes (Bld) [#/Vol] 0.57 10*3/uL Normal <0.87 [facility] Comment on above: Order Comment: Speci men Type: BLOOD SPECIMENOrdering Facility: [facility] Address: [address] [place] [address] Performed By: #### 5 7021-8 ####[facility]CLIA [id number] [place] [address] [place] Monocytes/100 WBC (Bld) 7.7 % Normal [facility] Comment on above: Order Comment: Speci men Type: BLOOD SPECIMENOrdering Facility: [facility] Address: [address] [place] [address] Performed By: #### 5 7021-8 ####[facility] LABCLIA [id number] [place] [address] [place] Neutrophils (Bld) [#/Vol] 4.73 10*3/uL Normal 1.45-7.50 [facility] Comment on above: Order Comment: Speci men Type: BLOOD SPECIMENOrdering Facility: [facility] Address: [address] [place] [address] Performed By: #### 5 7021-8 ####[facility]CLIA [id number] [place] [address] [place] Neutrophils/100 WBC (Bld) 64.3 % Normal [facility] Comment on above: Order Comment: Speci men Type: BLOOD SPECIMENOrdering Facility: [facility] Address: [address] [place] [address] Performed By: #### 5 7021-8 ####[facility]CL[facility] [id number] [place] [address] [place] Nucleated RBC (Bld) [#/Vol] 10*3/uL Normal <0.01 [facility] Comment on above: Order Comment: Speci men Type: BLOOD SPECIMENOrdering Facility: [facility] Address: [address] [address] Performed By: #### 5 7021-8 ####[facility] LABCLIA [id number] [place] [address] [place] Nucleated RBC/100 WBC (Bld) [Ratio] 0.0 /100 WBC Normal [facility] Comment on above: Order Comment: Speci men Type: BLOOD SPECIMENOrdering Facility: [facility] Address: [address] [address] Performed By: #### 5 7021-8 ####[facility] LABIA [id number] [place] [address] [place] Platelet mean volume (Bld) [Entitic vol] 9.6 fL Normal 9.0-12.7 [facility] Comment on above: Order Comment: Speci men Type: BLOOD SPECIMENOrdering Facility: [facility] Address: [address] [place] [address] Performed By: #### 5 7021-8 ####[facility]IA [id number] [place] [address] [place] Platelets (Bld) [#/Vol] 277 10*3/uL Normal 150-400 [facility] Comment on above: Order Comment: Speci men Type: BLOOD SPECIMENOrdering Facility: [facility] Address: [address] [address] Performed By: #### 5 7021-8 ####[facility]IA [id number] [place] [address] [place] RBC (Bld) [#/Vol] 4.37 10*6/uL Normal 3.90-5.20 [facility] Comment on above: Order Comment: Speci men Type: BLOOD SPECIMENOrdering Facility: [facility] Address: [address] [place], [place] [address] Performed By: #### 5 7021-8 ####[facility]CLIA [id number] [place] [address] [place] WBC (Bld) [#/Vol] 7.37 10*3/uL Normal 3.70-11.00 [facility] Comment on above: Order Comment: Speci men Type: BLOOD SPECIMENOrdering Facility: [facility] Address: [address] [place] [place] [address] Performed By: #### 5 7021-8 ####[facility] LABCLIA [id number] [address] [place] Basophils (Bld) [#/Vol] 0.04 [...] [facility]22 CNOV Office Visit (CHRISTINA ) KAILA VASQUEZ ([id number]) 1980 F Date Time Provider Department 07/07/22 [...] over a month. 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 A couple times a month she [...] tobacco: Never (more content not included)... Normal [facility] Noble 07-07-2022 MONE Telephone ([facility]) KAILA VASQUEZ ([id number]) 1980 F Date Time Provider Department 07/07/22 GLENROY SYEDFV During your visit today, we recorded the following information about you: Cinthya Salgado 07/07/2022 8:52 AM Signed Received medical records from [facility]. Uploaded to chart and forwarded [...] Status:Closed by CINTHYA SALGADO on 07/19/22 Normal [facility] Centromere Ab IF Ql (S)on Centromere Ab Qn (S) <0.2 Normal <1.0 [facility] Comment on above: Order Comment: Speci betty Type: BLOOD SPECIMENOrdering Facility: [facility] Address: [address] [place] [address] Result Comment: Anti -centromere antibody is used as in aid in diagnosis of systemic sclerosis. Clinical correlation is required. Test Methodology: Multiplex flow immunoassay. Performed By: #### 2 9374-6, 07109-3, 78389-7, 99692-6, 84613-0, ANAIFR, 10897-3, 46958-9, 29916-1, 06828-4 ####[facility] LABCLIA [id number] [address] [place] CENTROMERE AB QUAL Negative Normal Negative [facility] Comment on above: Order Comment: Speci men Type: BLOOD SPECIMENOrdering Facility: [facility] Address: [address] [place] [address] Performed By: #### 2 9374-6, 04072-3, 01191-8, 53937-7, 32105-8, ANAIFR, 97173-1, 27848-4, 11460-3, 02338-0 ####[facility] LABCLIA [id number] [place] [address] [place] Chromatin Ab Qnon 07-07-2022 CHROMATIN AB QUAL Negative Normal Negative [facility] Comment on above: Order Comment: Speci men Type: BLOOD SPECIMENOrdering Facility: [facility] Address: [address] [place] [address] Performed By: #### 2 9374-6, 78646-8, 67301-2, 19518-3, 76100-0, ANAIFR, 78359-9, 61438-4, 66135-4, 57813-6 ####[facility] LABIA [id number] [place] [address] [place] Chromatin Ab SerPl-aCncon Chromatin Ab Qn <0.2 Normal <1.0 [facility] Comment on above: Order Comment: Speci men Type: BLOOD SPECIMENOrdering Facility: [facility] Address: [address] [place] [address] Result Comment: Test Methodology: Multiplex flow immunoassay. Performed By: #### 2 9374-6, 86150-9, 75373-6, 79947-8, 48509-8, ANAIFR, 33733-2, 85502-0, 56314-1, 06678-7 ####[facility] LABIA [id number] [place] [address] [place] KAMRAN Jo1 Ab Ser-aCncon 2021 Radha-1 extractable nuclear Ab Qn (S) <0.2 Normal <1.0 [facility] Comment on above: Order Comment: Speci men Type: BLOOD SPECIMENOrdering Facility: [facility] Address: [address] [place] [address] Performed By: #### 2 9374-6, 18270-6, 05674-6, 23150-6, 23891-1, ANAIFR, 23686-6, 08699-9, 91125-1, 66801-8 ####[facility] LABCLIA [id number] [place] [address] [place] KAMRAN HOT FRAME TENDER Ab Ser-aCncon 2021 Ribonucleoprotein extractable nuclear Ab Qn (S) <0.2 Normal <1.0 [facility] Comment on above: Order Comment: Speci men Type: BLOOD SPECIMENOrdering Facility: [facility] Address: [address] [place] [address] Performed By: #### 2 9374-6, 62820-7, 55973-3, 55476-3, 05696-6, ANAIFR, 35251-0, 34218-0, 26542-5, 63522-7 ####[facility] LABIA [id number] [place] [address] [place] KAMRAN SM IgG Ser-aCncon 2021 Osborne extractable nuclear IgG Qn (S) <0.2 Normal <1.0 [facility] Comment on above: Order Comment: Speci men Type: BLOOD SPECIMENOrdering Facility: [facility] Address: [address] [place] [address] Performed By: #### 2 9374-6, 98279-8, 23011-4, 82376-0, 27376-3, ANAIFR, 81078-4, 86112-6, 76353-7, 92053-8 ####[facility] LABCLIA [id number] [place] [address] [place] KAMRAN SS-A Ab Ser-aCncon 07-07 Sjogrens syndrome-A extractable nuclear Ab Qn (S) 0.3 AI Normal <1.0 [facility] Comment on above: Order Comment: Speci betty Type: BLOOD SPECIMENOrdering Facility: [facility] Address: [address] [place] [address] Result Comment: Test Methodology: Multiplex flow immunoassay. Performed By: #### 2 9374-6, 85382-6, 19859-9, 86275-0, 23865-1, ANAIFR, 61689-7, 50174-5, 03138-8, 01238-3 ####[facility] LABIA [id number] [place] [address] [place] KAMRAN SS-B Ab Ser-aCncon 07-07 Sjogrens syndrome-B extractable nuclear Ab Qn (S) <0.2 Normal <1.0 [facility] Comment on above: Order Comment: Davidi betty Type: BLOOD SPECIMENOrdering Facility: [facility] Address: [address] [place] [address] Result Comment: Anti -SSB (anti-La) antibody is used as an aid in diagnosis of a variety of systemic autoimmune diseases, especially for Sjogren's syndrome and systemic lupus erythematosus. Clinical correlation is required. Test Methodology: Multiplex flow immunoassay. Performed By: #### 2 9374-6, 47599-8, 24643-7, 04894-2, 85660-0, ANAIFR, 37565-4, 49195-8, 13944-4, 50021-8 ####[facility] LABIA [id number] [address] [place] Radha-1 extractable nuclear Ab Qn (S)on 07-07-2022 RADHA 1 ANTIBODY QUAL Negative Normal Negative [facility] Comment on above: Order Comment: Davidi betty Type: BLOOD SPECIMENOrdering Facility: [facility] Address: [address] [place] [address] Result Comment: Anti -RADHA-1 antibody is used as an aid in diagnosis of polymyositis and dermatomyositis especially with pulmonary involvement. A negative result cannot rule out polymyositis or dermatomyositis. Clinical correlation is required. Test Methodology: Multiplex flow immunoassay. Performed By: #### 2 9374-6, 33672-5, 47623-5, 15014-8, 76644-3, ANAIFR, 52882-5, 97477-2, 64357-8, 73850-3 ####[facility] LABCLIA [id number] [place] [address] [place] Ribonucleoprotein extractabl e nuclear Ab Qn (S)on 07-07-2022 ANTI-HOT FRAME TENDER QUAL Negative Normal Negative [facility] Comment on above: Order Comment: Speci men Type: BLOOD SPECIMENOrdering Facility: [facility] Address: [address] [place] [address] Performed By: #### 2 9374-6, 19474-5, 37144-6, 81157-4, 00839-3, ANAIFR, 56073-8, 82568-0, 90034-7, 74810-2 ####[facility] LABIA [id number] [place] [address] [place] [facility] RIBOSOMAL HOT FRAME TENDER QUAL Negative Normal Negative [facility] Comment on above: Order Comment: Bryan hernández Type: BLOOD SPECIMENOrdering Facility: [facility] Address: [address] [place] [address] Result Comment: Anti -Ribosomal RNA (Ribosomal P) antibody is used as an aid in diagnosis of systemic autoimmune diseases especially systemic lupus erythematosus and mixed connective tissue disease. Cross-reactivity with Anti-osborne antibody is not uncommon. Clinical correlation is required. Test Methodology: Multiplex flow immunoassay. Performed By: #### 2 9374-6, 19618-5, 48123-1, 79933-4, 04253-9, ANAIFR, 37185-3, 04851-7, 71610-1, 28280-5 ####[facility] LABIA [id number] [place] [id number] [place] SCL-70 extractable nuclear I gG IA Qn (S)on 07-07-2022 SCLERODERMA AB QUAL Negative Normal Negative [facility] Comment on above: Order Comment: Speci men Type: BLOOD SPECIMENOrdering Facility: [facility] Address: [address] [place] [address] Performed By: #### 2 9374-6, 61197-7, 03385-5, 82679-6, 86620-8, ANAIFR, 72327-5, 18386-0, 48736-7, 98266-0 ####[facility] LABIA [id number] [place] [address] [place] SCLERODERMA IGG AB <0.2 Normal <1.0 [facility] Comment on above: Order Comment: Bryan hernández Type: BLOOD SPECIMENOrdering Facility: [facility] Address: [address] [place] [address] Result Comment: Scl- 70/Scleroderma antibody test is used as an aid in diagnosis of systemic sclerosis especially the diffuse cutaneous form. A negative result cannot rule out systemic sclerosis. The final interpretation should consider clinical picture and other test results such as anti-centromere antibody. Test Methodology: Multiplex flow immunoassay. Performed By: #### 2 9374-6, 73328-4, 36570-2, 93883-3, 59578-4, ANAIFR, 26609-5, 43791-2, 51704-9, 86256-1 ####[facility] LABIA [id number] [place] [address] [place] Sjogrens syndrome-A extracta ble nuclear Ab Qn (S)on 07-07-2022 SSA ANTIBODY QUAL Negative Normal Negative [facility] Comment on above: Order Comment: Speci men Type: BLOOD SPECIMENOrdering Facility: [facility] Address: [address] [id number] Performed By: #### 2 9374-6, 38620-6, 73311-4, 00256-1, 69794-7, ANAIFR, 06634-2, 36990-5, 99555-2, 84507-3 ####[facility] LABCLIA [id number] [place] Sjogrens syndrome-B extracta ble nuclear Ab Qn (S)on 07-07-2022 SSB ANTIBODY QUAL Negative Normal Negative [facility] Comment on above: Order Comment: Speci men Type: BLOOD SPECIMENOrdering Facility: [facility] Address: [address] [place] [address] Performed By: #### 2 9374-6, 01138-5, 13785-2, 82315-6, 89923-7, ANAIFR, 25927-4, 56910-3, 07840-1, 42074-7 ####[facility] LABIA [id number] [address] [place] Osborne extractable nuclear Ig G Qn (S)on 07-07-2022 SM ANTIBODY QUAL Negative Normal Negative [facility] Comment on above: Order Comment: Speci men Type: BLOOD SPECIMENOrdering Facility: [facility] Address: [address] [place] [address] Result Comment: Anti -Sm (Osborne) antibody is used as an aid in diagnosis of systemic lupus erythematosus and its presence is associated with renal disease. A negative result cannot rule out systemic lupus erythematosus. Clinical correlation is required. Test Methodology: Multiplex flow immunoassay. Performed By: #### 2 9374-6, 75302-2, 10054-0, 82804-5, 64475-8, ANAIFR, 72481-2, 05632-8, 56259-8, 72543-9 ####[facility] LABIA [id number] [place] [address] [place] TSH BLDon 07-07-2022 TSH Qn 0.824 m[IU]/L 0.270 - 4.200 mIU/L [facility] TSH SerPl-aCncon 07-07-2022 TSH Qn 0.824 m[IU]/L Normal 0.270-4.200 [facility] Comment on above: Order Comment: Speci men Type: BLOOD SPECIMENOrdering Facility: [facility] Address: [address] [place], [place] [id number] Result Comment: If t he patient is , TSH reference range varies by gestational period: First Trimester (weeks 9-12): 0.180-2.990 mIU/L Second Trimester: 0.110-3.980 mIU/L Third Trimester: 0.480-4.710 mIU/L Eliezer Bangura et al. A Practical Approach for the Verifications and Determination of Site- and Trimester-Specific Reference Intervals for Thyroid Function tests in . Thyroid, 2019:29:3:412-420. Rob Forrest, et al. 2017 Guidelines of the [place] Thyroid Association for the Diagnosis and Management of Thyroid Disease during and the . Thyroid, 2017:27:3:315-389. Performed By: #### 3 016-3, 2132-04 ####[facility] LABCLIA [id number] [place] [address] [place] VITAMIN B12 BLOODon 07-07-20 22 Cobalamin (Vitamin B12) [Mass/Vol] 618 pg/mL 232 - 1,245 pg/mL [facility] Vit B12 SerPl-mCncon 022 Cobalamin (Vitamin B12) [Mass/Vol] 618 pg/mL Normal 232-1245 [facility] Comment on above: Order Comment: Speci men Type: BLOOD SPECIMENOrdering Facility: [facility] Address: [address] [address] Performed By: #### 3 016-3, 2132-04 ####[facility] LABCLIA [id number] [address] [place] dsDNA Ab Ser IA-aCncon 07-07 DNA double strand Ab IA Qn (S) <12 Normal <30 [facility] Comment on above: Order Comment: Speci men Type: BLOOD SPECIMENOrdering Facility: [facility] Address: [address] [address] Result Comment: Nega tive for ds DNA Antibodies. <30 IU/mL Negative 30-74 IU/mL Equivocal >74 IU/mL Positive Performed By: #### 2 9374-6, 19297-9, 85688-8, 97943-0, 84859-7, ANAIFR, 74233-9, 86557-5, 45899-5, 99738-7 ####[facility] LABCLIA [id number] CHAD LEOS [id number] [place], [place] [id number] [place] HLA B 27on 04-26-2022 HLA-B27 Negative Normal [facility] Comment on above: Result Comment: HLA- B*27 Negative B27 allele interpretation for all loci based on IMGT/HLA database version 3.44 This test was developed and its performance characteristics determined by [facility]. It has not been cleared or approved by the Food and Drug Administration. [facility] CLIA ID Number [id number] . This test was performed using PCR (Polymerase Chain Reaction)/SSOP (Sequence Specific Oligonucleotide Probes) technique. SBT (Sequence Based Typing) and/or SSP (Sequence Specific Primers) may be used as supplemental methods when necessary. Please contact [facility] Customer Service at if you have any questions. . Director of [facility] Laboratory Dr Abdiaziz Shook, PhD Performed By: #### C VDAGA #### [facility] [address] [place] [address] Dr. Christos Fallon 25-HYDROXY VIT D (D2+D3 REPLACED BY [facility] ) LC/MS-MSon 04-23-2022 25-Hydroxy, Vitamin D 26 ng/mL Critically low [facility] Comment on above: Result Comment: Refe rence Range: All Ages: Target levels 30 - 100 Performed By: #### C MP, TSH, HSTROPN #### [facility] [address] [place] [address] Dr. Christos Fallon 25-Hydroxy, Vitamin D-2 <1.0 Normal [facility] Comment on above: Result Comment: This test was developed and its performance characteristics determined by [facility]. It has not been cleared or approved by the Food and Drug Administration. Performed By: #### C MP, TSH, HSTROPN #### [facility] [address] [place] [address] Dr. Christos Fallon 25-Hydroxy, Vitamin D-3 26 ng/mL Normal [facility] Comment on above: Result Comment: This test was developed and its performance characteristics determined by [facility]. It has not been cleared or approved by the Food and Drug Administration. Performed By: #### C MP, TSH, HSTROPN #### [facility] [address] [place] [address] Dr. Christos Fallon REVERSE T3on 04-20-2022 Reverse T3, Serum 11.2 ng/dL Normal 9.2-24.1 [facility] Comment on above: Result Comment: This test was developed and its performance characteristics determined by [facility]. It has not been cleared or approved by the Food and Drug Administration. Performed By: #### C VDAGA #### [facility] [address] [place] [address] Dr. Christos Fallon THYROID ANTIBODIESon 022 Thyroglobulin Antibody <1.0 Normal 0.0-0.9 [facility] Comment on above: Result Comment: Thyr oglobulin Antibody measured by [employer] Methodology Performed By: #### C VDAGA #### [facility] [address] [place] [address] Dr. Christos Fallon Thyroid Peroxidase (TPO) Ab 11 IU/mL Normal 0-34 [facility] Comment on above: Performed By: #### C VDAGA #### [facility] [address] [place] [address] Dr. Christos Fallon ANTISTREPTOLYSIN O AB (ASO)o n 04-16-2022 Antistreptolysin O Ab 21.8 IU/mL Normal 0.0-200.0 [facility] Comment on above: Performed By: #### C MP, TSH, HSTROPN #### [facility] [address] [place] [address] Dr. Christos Fallon T3, TOTAL (TRIIODOTHYRONINE) on 04-16-2022 T3, TOTAL 115 ng/dL Normal 71-180 [facility] Comment on above: Performed By: #### C MP, TSH, HSTROPN #### [facility] [address] [place] [address] Dr. Christos Fallon FREE T3on 04-14-2022 FREE T3 2.46 pg/mlL Normal 2.18-3.98 [facility] Comment on above: Performed By: #### C MP, TSH, HSTROPN #### [facility] [address] [place] [address] Dr. Christos Fallon FREE T4on 04-14-2022 Free T4 [Mass/Vol] 0.88 ng/dL Normal 0.76-1.[address] [facility] Comment on above: Performed By: #### C VDAGA #### [facility] [address] [place] [address] Dr. Christos Fallon TSHon 04-14-2022 TSH 1.027 uIU/mL Normal 0.358-3.740 [facility] Comment on above: Performed By: #### C MP, TSH, HSTROPN #### [facility] [address] [place] [address] Dr. Christos Fallon CBC AUTO DIFFon 03-22-2022 BASO # 0.1 103/ul Normal 0.0-0.1 [facility] Comment on above: Performed By: #### C MP, TSH, HSTROPN #### [facility] [address] [place] [address] Dr. Christos Fallon Basophils/100 WBC (Bld) 0.7 % Normal 0.2-2.0 [facility] Comment on above: Performed By: #### C MP, TSH, HSTROPN #### [facility] [address] [place] [address] Dr. Christos Fallon EO # 0.3 103/ul Normal 0.0-0.7 [facility] Comment on above: Performed By: #### C MP, TSH, HSTROPN #### [facility] [address] [place] [address] Dr. Christos Fallon Eosinophils/100 WBC (Bld) 3.4 % Normal 0.9-7.0 [facility] Comment on above: Performed By: #### C MP, TSH, HSTROPN #### [facility] [address] [place] [address] Dr. Christos Fallon Erythrocyte distribution width (RBC) [Ratio] 12.5 % Normal 11.0-15.0 [facility] Comment on above: Performed By: #### C MP, TSH, HSTROPN #### [facility] [address] [place] [address] Dr. Christos Fallon Hematocrit (Bld) [Volume fraction] 41.3 % Normal 36.0-48.0 [facility] Comment on above: Performed By: #### C MP, TSH, HSTROPN #### [facility] [address] [place] [address] Dr. Christos Fallon Hemoglobin (Bld) [Mass/Vol] 14.2 g/dL Normal 12.0-16.0 [facility] Comment on above: Performed By: #### C MP, TSH, HSTROPN #### [facility] [address] [place] [address] Dr. Christos Fallon IG # 0.03 10e3/ul Normal 0.00-0.03 [facility] Comment on above: Performed By: #### C MP, TSH, HSTROPN #### [facility] [address] [place] [address] Dr. Christos Fallon IG % 0.4 % Normal 0.0-0.5 [facility] Comment on above: Performed By: #### C MP, TSH, HSTROPN #### [facility] [address] [place] [address] Dr. Christos Fallon LYMPH # 2.3 103/ul Normal 1.2-3.8 [facility] Comment on above: Performed By: #### C MP, TSH, HSTROPN #### [facility] [address] [place] [address] Dr. Christos Fallon Lymphocytes/100 WBC (Bld) 31.3 % Normal 20.5-60.0 [facility] Comment on above: Performed By: #### C MP, TSH, HSTROPN #### [facility] [address] [place] [address] Dr. Christos Fallon MANUAL DIFF REQ NO Normal [facility] Comment on above: Performed By: #### C MP, TSH, HSTROPN #### [facility] [address] [place] [address] Dr. Christos Fallon MCH (RBC) [Entitic mass] 34.8 pg Critically high 26.7-34.0 [facility] Comment on above: Performed By: #### C MP, TSH, HSTROPN #### [facility] [address] [place] [address] Dr. Christos Fallon MCHC (RBC) [Mass/Vol] 34.4 g/dL Normal 29.9-35.2 [facility] Comment on above: Performed By: #### C MP, TSH, HSTROPN #### [facility] [address] [place] [address] Dr. Christos Fallon MCV (RBC) [Entitic vol] 101.2 fL Critically high 81.0-99.0 [facility] Comment on above: Performed By: #### C MP, TSH, HSTROPN #### [facility] [address] [place] [address] Dr. Christos Fallon MONO # 0.9 103/ul Critically high 0.3-0.8 [facility] Comment on above: Performed By: #### C MP, TSH, HSTROPN #### [facility] [address] [place] [address] Dr. Christos Fallon Monocytes/100 WBC (Bld) 12.0 % Normal 1.7-12.0 [facility] Comment on above: Performed By: #### C MP, TSH, HSTROPN #### [facility] [address] [place] [address] Dr. Christos Fallon NEUT # 3.9 103/ul Normal 1.4-6.5 [facility] Comment on above: Performed By: #### C MP, TSH, HSTROPN #### [facility] [address] [place] [address] Dr. Christos Fallon Neutrophils/100 WBC (Bld) 52.2 % Normal 43.0-75.0 [facility] Comment on above: Performed By: #### C MP, TSH, HSTROPN #### [facility] [address] [address] [address] Christos Fallon Platelet mean volume (Bld) [Entitic vol] 9.7 fL Normal 9.5-13.5 [facility] Comment on above: Performed By: #### C MP, TSH, HSTROPN #### [facility] [address] [address] [address] Christos Fallon PLT 296 103/ul Normal 150-450 [facility] Comment on above: Performed By: #### C MP, TSH, HSTROPN #### [facility] [address] [address] [address] Christos Fallon RBC 4.08 106/ul Critically low 4.20-5.40 [facility] Comment on above: Performed By: #### C MP, TSH, HSTROPN #### [facility] [address] [place] [address] Dr. Christos Fallon WBC 7.4 103/ul Normal 4.0-11.0 [facility] Comment on above: Performed By: #### C MP, TSH, HSTROPN #### [facility] [address] [place] [address] HEAD WO CONon [...] explain the patient's symptoms. Electronically authenticated by: PALNEW KELLYNI Date: 2022-03-22 17:41 Normal [facility] ER URINE PROFILEon 2 Bilirubin Ql (U) Negative Normal NEGATIVE [facility] Comment on above: Performed By: #### C VDAGA #### [facility] [address] [place] [address] Dr. Christos Fallon Clarity (U) CLOUDY Abnormal CLEAR [facility] Comment on above: Performed By: #### C VDAGA #### [facility] [address] [place] [address] Dr. Christos Fallon Color (U) LT. YELLOW Normal YELLOW [facility] Comment on above: Performed By: #### C VDAGA #### [facility] [address] [place] [address] Dr. Christos VERGARA A micrscopic examination will be performed if indicated. Normal [facility] Comment on above: Performed By: #### C VDAGA #### [facility] [address] [place] [address] Dr. Christos Fallon Glucose Ql (U) Negative Normal NEGATIVE [facility] Comment on above: Performed By: #### C VDAGA #### [facility] [address] [place] [address] Dr. Christos Fallon Hemoglobin Ql (U) Negative Normal NEGATIVE [facility] Comment on above: Performed By: #### C VDAGA #### [facility] [address] [place] [address] Dr. Christos Fallon Ketones Ql (U) Negative Normal NEGATIVE [facility] Comment on above: Performed By: #### C VDAGA #### [facility] [address] [place] [address] Dr. Christos Fallon LEUKOCYTES Negative Normal NEGATIVE [facility] Comment on above: Performed By: #### C VDAGA #### [facility] [address] [place] [address] Dr. Christos Fallon Nitrite Ql (U) Negative Normal NEGATIVE [facility] Comment on above: Performed By: #### C VDAGA #### [facility] [address] [place] [address] Dr. Christos Fallon pH (U) 6.0 [pH] Normal 5-9 [facility] Comment on above: Performed By: #### C VDAGA #### [facility] [address] [place] [address] Dr. Christos Fallon SPEC GRAVITY 1.010 Normal 1.005-<=1.02 5 [facility] Comment on above: Performed By: #### C VDAGA #### [facility] [address] [place] [address] Dr. Christos Fallon UA PROTEIN Negative Normal NEGATIVE/ TRACE [facility] Comment on above: Performed By: #### C VDAGA #### [facility] [address] [place] [address] Dr. Christos Fallon UR MICRO IND NOT INDICATED Normal [facility] Comment on above: Performed By: #### C VDAGA #### [facility] [address] [place] [address] Dr. Christos Fallon Urobilinogen Qn (U) 0.2 {Peyman'U}/dL Normal 0.2 - 1. 0 [facility] Comment on above: Performed By: #### C VDAGA #### [facility] [address] [place] [address] Dr. Christos Fallon PROF 14(COMP METB)on 022 Albumin [Mass/Vol] 3.6 g/dL Normal 3.4-5.[address] [facility] Comment on above: Performed By: #### C RAY HSTROPN, TSH #### [facility] [address] [place] [address] Dr. Christos Fallon Albumin/Globulin [Mass ratio] 0.9 {ratio} Normal [facility] Comment on above: Performed By: #### C RAY HSTROPN, TSH #### [facility] [address] [place] [address] Dr. Christos Fallon ALP [Catalytic activity/Vol] 83 U/L Normal 46-116 [facility] Comment on above: Performed By: #### C MP, HSTROPN, TSH #### [facility] [address] [address] [address] Christos Fallon ALT [Catalytic activity/Vol] 32 U/L Normal 14-59 [facility] Comment on above: Performed By: #### C MP, HSTROPN, TSH #### [facility] [address] [place] [address] Dr. Christos Fallon Anion gap [Moles/Vol] 15.4 mmol/L Normal [facility] Comment on above: Performed By: #### C MP, HSTROPN, TSH #### [facility] [address] [place] [address] Dr. Christos Fallon AST [Catalytic activity/Vol] 15 U/L Normal 15-37 [facility] Comment on above: Performed By: #### C MP, HSTROPN, TSH #### [facility] [address] [place] [address] Dr. Christos Fallon Bilirubin [Mass/Vol] 0.3 mg/dL Normal 0.2-1.0 [facility] Comment on above: Performed By: #### C MP, HSTROPN, TSH #### [facility] [address] [place] [address] Dr. Christos Fallon Calcium [Mass/Vol] 8.9 mg/dL Normal 8.5-10.[address] [facility] Comment on above: Performed By: #### C MP, HSTROPN, TSH #### [facility] [address] [address] [address] Christos Fallon Chloride [Moles/Vol] 102 mmol/L Normal 98-107 [facility] Comment on above: Performed By: #### C MP, HSTROPN, TSH #### [facility] [address] [place] [address] Dr. Christos Fallon CO2 [Moles/Vol] 22.7 mmol/L Normal 21.0-32.0 [facility] Comment on above: Performed By: #### C MP, HSTROPN, TSH #### [facility] [address] [place], [place] [id number] Dr. Christos Fallon Creatinine [Mass/Vol] 0.97 mg/dL Normal 0.55-1.02 [facility] Comment on above: Performed By: #### C RAY HSTROPN, TSH #### [facility] [address] [address] [address] Christos Fallon EGFR-AF CENTRAL [place] >60 Normal >=60 [facility] Comment on above: Performed By: #### C RAY, HSTROPN, TSH #### [facility] [address] [place] [address] Dr. Christos Fallon EGFR-NON AF CENTRAL AFR[place] >60 Normal >=60 [facility] Comment on above: Performed By: #### C RAY, HSTROPN, TSH #### [facility] [address] [place] [address] Dr. Christos Fallon Globulin (S) [Mass/Vol] 3.8 g/dL Normal [facility] Comment on above: Performed By: #### C RAY, HSTROPN, TSH #### [facility] [address] [place] [address] Dr. Christos Fallon Glucose [Mass/Vol] 104 mg/dL Normal 74-106 [facility] Comment on above: Performed By: #### C RAY HSTROPN, TSH #### [facility] [address] [place] [address] Dr. Christos Fallon Potassium [Moles/Vol] 4.1 mmol/L Normal 3.5-5.1 [facility] Comment on above: Performed By: #### C RAY, HSTROPN, TSH #### [facility] [address] [place] [address] Dr. Christos Fallon Protein [Mass/Vol] 7.4 g/dL Normal 6.4-8.2 [facility] Comment on above: Performed By: #### C RAY, HSTROPN, TSH #### [facility] [address] [place] [address] Dr. Christos Fallon Sodium [Moles/Vol] 136 mmol/L Normal 136-145 [facility] Comment on above: Performed By: #### C MP, HSTROPN, TSH #### [facility] [address] [place] [address] Dr. Christos Fallon Urea nitrogen [Mass/Vol] 17.0 mg/dL Normal 7.0-18.0 [facility] Comment on above: Performed By: #### C MP, HSTROPN, TSH #### [facility] [address] [address] [address] Christos Fallon Urea nitrogen/Creatinine [Mass ratio] 17.5 mg/mg Normal [facility] Comment on above: Performed By: #### C MP, HSTROPN, TSH #### [facility] [address] [place] [address] Dr. Christos Fallon TROPONIN, HIGH SENSITIVITYon 03-22-2022 HSTROP <4.0 Normal 4.0-51.3 [facility] Comment on above: Result Comment: CUT- OFF POINTS HAVE BEEN ESTABLISHED BASED ON THE FOURTH UNIVERSAL DEFINITIONS OF MYOCARDIAL INFARCTION. THE UPPER REFERENCE LIMIT (URL) OF TROPONIN, DEFINED THE 99TH PERCENTILE OF cTnI DISTRIBUTION IN A REFERENCE POPULATION, HAS BEEN CONFIRMED THE DECISION THRESHOLD FOR DC DIAGNOSIS. Performed By: #### C MP, HSTROPN, TSH #### [facility] [address] [place] [address] Dr. Christos Fallon TSHon 03-22-2022 TSH 0.854 uIU/mL Normal 0.358-3.740 [facility] Comment on above: Performed By: #### C MP, HSTROPN, TSH #### [facility] [address] [place] [address] Dr. Christos Fallon ASYMPTOMATIC COVID-19 ANTIGE Non 03-03-2022 EUA Statement SEE BELOW Normal [facility] Comment on above: Result Comment: This test [...] Performed By: #### C VDAGA #### [facility] [address] [place] [address] Dr. Christos Fallon SARS-CoV-2 (COVID-19) RNA LEROY+probe Ql (Unsp spec) Positive Critically abnormal NEGATIVE [facility] Comment on above: Result Comment: SARS -CoV-2 antigen present; does not rule out coinfection with other pathogens. Performed By: #### C VDAGA #### [facility] [address] [place] [address] Dr. Christos Fallon Covid-19 PCR ([facility]on 02-06 SARS-CoV-2 (COVID-19) RNA LEROY+probe Ql (Unsp spec) Detected Critically abnormal NOT DETECTED [facility] Comment on above: Result Comment: This test is not yet approved or cleared by the [place] FDA. When there are no FDA-approved or cleared tests available, and other criteria are met, FDA can make tests available under an emergency access mechanism called an Emergency Use Authorization (EUA). The EUA for this test is supported by the [place] of Health and Human Service's declaration that [...] #### C MP, TSH, HSTROPN #### [facility] [address] [place] [address] Dr. Christos Fallon CRPon 11-25-2021 CRP [Mass/Vol] mg/L Normal <=1.0 [facility] Comment on above: Performed By: #### C MP, TSH, HSTROPN #### [facility] [address] [place] [address] Dr. hCristos Fallon VIT B12 AND FOLATEon Cobalamin (Vitamin B12) [Mass/Vol] 329.0 pg/mL Normal 239.0-931.0 [facility] Comment on above: Performed By: #### C MP, TSH, HSTROPN #### [facility] [address] [place] [address] Dr. Christos Fallon FOLATE 8.50 ng/mL Normal >=2.76 [facility] Comment on above: Performed By: #### C MP, TSH, HSTROPN #### [facility] [address] [place] [address] Dr. Christos Fallon CBC AUTO DIFFon 11-19-2021 BASO # 0.1 103/ul Normal 0.0-0.1 [facility] Comment on above: Performed By: #### C BC #### [facility] [address] [place] [address] Dr. Christos Fallon Basophils/100 WBC (Bld) 0.8 % Normal 0.2-2.0 [facility] Comment on above: Performed By: #### C BC #### [facility] [address] [place] [address] Dr. Christos Fallon EO # 0.3 103/ul Normal 0.0-0.7 [facility] Comment on above: Performed By: #### C BC #### [facility] [address] [place] [address] Dr. Christos Fallon Eosinophils/100 WBC (Bld) 4.8 % Normal 0.9-7.0 [facility] Comment on above: Performed By: #### C BC #### [facility] [address] [place] [address] Dr. Christos Fallon Erythrocyte distribution width (RBC) [Ratio] 12.2 % Normal 11.0-15.0 [facility] Comment on above: Performed By: #### C BC #### [facility] [address] [place] [address] Dr. Christos Fallon Hematocrit (Bld) [Volume fraction] 41.9 % Normal 36.0-48.0 [facility] Comment on above: Performed By: #### C BC #### [facility] [address] [place] [address] Dr. Christos Fallon Hemoglobin (Bld) [Mass/Vol] 14.2 g/dL Normal 12.0-16.0 [facility] Comment on above: Performed By: #### C BC #### [facility] [address] [place] [address] Dr. Christos Fallon IG # 0.03 10e3/ul Normal 0.00-0.03 [facility] Comment on above: Performed By: #### C BC #### [facility] [address] [place] [address] Dr. Christos Fallon IG % 0.5 % Normal 0.0-0.5 [facility] Comment on above: Performed By: #### C BC #### [facility] [address] [place] [address] Dr. Christos Fallon LYMPH # 1.5 103/ul Normal 1.2-3.8 [facility] Comment on above: Performed By: #### C BC #### [facility] [address] [place] [address] Dr. Christos Fallon Lymphocytes/100 WBC (Bld) 24.6 % Normal 20.5-60.0 [facility] Comment on above: Performed By: #### C BC #### [facility] [address] [place] [address] Dr. Christos Fallon MANUAL DIFF REQ NO Normal [facility] Comment on above: Performed By: #### C BC #### [facility] [address] [place] [address] Dr. Christos Fallon MCH (RBC) [Entitic mass] 34.3 pg Critically high 26.7-34.0 [facility] Comment on above: Performed By: #### C BC #### [facility] [address] [place] [address] Dr. Christos Fallon MCHC (RBC) [Mass/Vol] 33.9 g/dL Normal 29.9-35.2 [facility] Comment on above: Performed By: #### C BC #### [facility] [address] [address] [address] Christos Fallon MCV (RBC) [Entitic vol] 101.2 fL Critically high 81.0-99.0 [facility] Comment on above: Performed By: #### C BC #### [facility] [address] [address] [address] Christos Fallon MONO # 0.5 103/ul Normal 0.3-0.8 [facility] Comment on above: Performed By: #### C BC #### [facility] [address] [address] [address] Christos Fallon Monocytes/100 WBC (Bld) 7.2 % Normal 1.7-12.0 [facility] Comment on above: Performed By: #### C BC #### [facility] [address] [place] [address] Dr. Christos Fallon NEUT # 3.9 103/ul Normal 1.4-6.5 [facility] Comment on above: Performed By: #### C BC #### [facility] [address] [place] [address] Dr. Christos Fallon Neutrophils/100 WBC (Bld) 62.1 % Normal 43.0-75.0 [facility] Comment on above: Performed By: #### C BC #### [facility] [address] [address] [address] Christos Fallon Platelet mean volume (Bld) [Entitic vol] 9.1 fL Critically low 9.5-13.5 [facility] Comment on above: Performed By: #### C BC #### [facility] [address] [address] [address] Christos Fallon PLT 301 103/ul Normal 150-450 [facility] Comment on above: Performed By: #### C BC #### [facility] [address] [address] [address] Christos Fallon RBC 4.14 106/ul Critically low 4.20-5.40 [facility] Comment on above: Performed By: #### C BC #### [facility] [address] [address] [address] Christos Fallon WBC 6.3 103/ul Normal 4.0-11.0 [facility] Comment on above: Performed By: #### C BC #### [facility] [address] [address] [address] Christos Fallon FREE T3on 11-19-2021 FREE T3 2.72 pg/mlL Critically low 2.77-5.27 [facility] Comment on above: Performed By: #### C MP, TSH, HSTROPN #### [facility] [address] [address] [address] Christos Fallon FREE T4on 11-19-2021 Free T4 [Mass/Vol] 1.09 ng/dL Normal 0.78-2.[address] [facility] Comment on above: Performed By: #### C MP, TSH, HSTROPN #### [facility] [address] [address] [address] Christos Fallon GLYCOHEMOGLOBIN A1Con 2021 ADA RECOMMENDATION ADA THERAPEUTIC TARG ET 6.0 - 7.0 ACTION SUGGESTED > 7.0 Normal [facility] Comment on above: Performed By: #### A 1C #### [facility] [address] [place] [address] Dr. Christos Fallon Glucose [Mass/Vol] 105 mg/dL Normal [facility] Comment on above: Performed By: #### A 1C #### [facility] [address] [place] [address] Dr. Christos Fallon HbA1c (Bld) [Mass fraction] 5.3 % Normal <=6.0 [facility] Comment on above: Performed By: #### A 1C #### [facility] [address] [place] [address] Dr. Christos Fallon LIPID PROFILEon 11-19-2021 CHOL-HDL RATIO NORM SEE BELOW Normal [facility] Comment on above: Result Comment: 3.3 - 4.4 LOW RISK 4.4 - 7.1 AVERAGE RISK 7.1 - 11.0 MODERATE RISK >11.0 HIGH RISK Performed By: #### C MP, TSH, HSTROPN #### [facility] [address] [address] [address] Christos Fallon Cholesterol [Mass/Vol] 232 mg/dL Critically high <=200 [facility] Comment on above: Performed By: #### C MP, TSH, HSTROPN #### [facility] [address] [address] [address] Christos Fallon Cholesterol in HDL [Mass/Vol] 60 mg/dL Normal 40-60 [facility] Comment on above: Performed By: #### C MP, TSH, HSTROPN #### [facility] [address] [place] [address] Dr. Christos Fallon Cholesterol in LDL [Mass/Vol] 134.6 mg/dL Normal [facility] Comment on above: Performed By: #### C MP, TSH, HSTROPN #### [facility] [address] [address] [address] Christos Fallon Cholesterol.total/Cho lesterol in HDL [Mass ratio] 3.9 {ratio} Normal [facility] Comment on above: Performed By: #### C MP, TSH, HSTROPN #### [facility] [address] [address] [address] Christos Fallon HDL NORMAL > or = 60 mg/dl - LO W CARDIOVASCULAR RISK <40 mg/dl - HIGH CARDIOVASCULAR RISK Normal [facility] Comment on above: Performed By: #### C MP, TSH, HSTROPN #### [facility] [address] [place] [address] Dr. Christos Fallon LDL CALC NORMAL SEE BELOW Normal [facility] Comment on above: Result Comment: <100 mg/dl OPTIMAL 100 - 129 mg/dl NEAR OR ABOVE OPTIMAL 130 - 159 mg/dl BORDERLINE HIGH 160 - 189 mg/dl HIGH >190 mg/dl VERY HIGH Performed By: #### C MP, TSH, HSTROPN #### [facility] [address] [address] [address] Christos Fallon Triglyceride [Mass/Vol] 187 mg/dL Critically high <=150 [facility] Comment on above: Performed By: #### C MP, TSH, HSTROPN #### [facility] [address] [place] [address] Dr. Christos Fallon VLDL CALC 37.4 mg/dL Normal [facility] Comment on above: Performed By: #### C MP, TSH, HSTROPN #### [facility] [address] [place] [address] Dr. Christos Fallon PROF 14(COMP METB)on 022 Albumin [Mass/Vol] 3.8 g/dL Normal 3.4-5.[address] [facility] Comment on above: Performed By: #### C MP, TSH, HSTROPN #### [facility] [address] [place] [address] Dr. Christos Fallon Albumin/Globulin [Mass ratio] 1.1 {ratio} Normal [facility] Comment on above: Performed By: #### C MP, TSH, HSTROPN #### [facility] [address] [place] [address] Dr. Christos Fallon ALP [Catalytic activity/Vol] 77 U/L Normal 46-116 [facility] Comment on above: Performed By: #### C MP, TSH, HSTROPN #### [facility] [address] [place] [address] Dr. Christos Fallon ALT [Catalytic activity/Vol] 34 U/L Normal 14-59 [facility] Comment on above: Performed By: #### C MP, TSH, HSTROPN #### [facility] [address] [place] [address] Dr. Christos Fallon Anion gap [Moles/Vol] 11.5 mmol/L Normal [facility] Comment on above: Performed By: #### C MP, TSH, HSTROPN #### [facility] [address] [place] [address] Dr. Christos Fallon AST [Catalytic activity/Vol] 21 U/L Normal 15-37 [facility] Comment on above: Performed By: #### C MP, TSH, HSTROPN #### [facility] [address] [address] [address] Christos Fallon Bilirubin [Mass/Vol] 0.7 mg/dL Normal 0.2-1.3 [facility] Comment on above: Performed By: #### C MP, TSH, HSTROPN #### [facility] [address] [address] [address] Christos Fallon Calcium [Mass/Vol] 8.8 mg/dL Normal 8.5-10.1 [facility] Comment on above: Performed By: #### C MP, TSH, HSTROPN #### [facility] [address] [address] [address] Christos Fallon Chloride [Moles/Vol] 104 mmol/L Normal 98-107 [facility] Comment on above: Performed By: #### C MP, TSH, HSTROPN #### [facility] [address] [place] [address] Dr. Christos Fallon CO2 [Moles/Vol] 28.6 mmol/L Normal 22.0-30.0 [facility] Comment on above: Performed By: #### C MP, TSH, HSTROPN #### [facility] [address] [place] [address] Dr. Christos Fallon Creatinine [Mass/Vol] 0.88 mg/dL Normal 0.52-1.04 [facility] Comment on above: Performed By: #### C MP, TSH, HSTROPN #### [facility] [address] [place] [address] Dr. Christos Fallon EGFR-AF CENTRAL AFRICAN >60 Normal >=60 [facility] Comment on above: Performed By: #### C MP, TSH, HSTROPN #### [facility] [address] [place] [address] Dr. Christos Fallon EGFR-NON AF CENTRAL AFRICAN >60 Normal >=60 [facility] Comment on above: Performed By: #### C MP, TSH, HSTROPN #### [facility] [address] [place] [address] Dr. Christos Fallon Globulin (S) [Mass/Vol] 3.5 g/dL Normal [facility] Comment on above: Performed By: #### C MP, TSH, HSTROPN #### [facility] [address] [address] [address] Christos Fallon Glucose [Mass/Vol] 101 mg/dL Normal 74-106 [facility] Comment on above: Performed By: #### C MP, TSH, HSTROPN #### [facility] [address] [address] [address] Christos Fallon Potassium [Moles/Vol] 4.1 mmol/L Normal 3.4-5.0 [facility] Comment on above: Performed By: #### C MP, TSH, HSTROPN #### [facility] [address] [place] [address] Dr. Christos Fallon Protein [Mass/Vol] 7.3 g/dL Normal 6.1-8.2 [facility] Comment on above: Performed By: #### C MP, TSH, HSTROPN #### [facility] [address] [place] [address] Dr. Christos Fallon Sodium [Moles/Vol] 140 mmol/L Normal 137-145 [facility] Comment on above: Performed By: #### C MP, TSH, HSTROPN #### [facility] [address] [place] [address] Dr. Christos Fallon Urea nitrogen [Mass/Vol] 11.0 mg/dL Normal 7.0-18.0 [facility] Comment on above: Performed By: #### C MP, TSH, HSTROPN #### [facility] [address] [place] [address] Dr. Christos Fallon Urea nitrogen/Creatinine [Mass ratio] 12.5 mg/mg Normal [facility] Comment on above: Performed By: #### C MP, TSH, HSTROPN #### [facility] [address] [place] [address] Dr. Christos Fallon TSHon 11-19-2021 TSH 0.774 uIU/mL Normal 0.470-4.680 [facility] Comment on above: Performed By: #### C MP, TSH, HSTROPN #### [facility] [address] [place], [place] [address] Dr. Christos Fallon TSH RANGE SEE BELOW Normal [facility] Comment on above: Result Comment: <0.3 4 UIU/ml HYPERTHYROID 0.34-5.60 UIU/ml EUTHYROID >5.60 UIU/ml HYPOTHYROID Performed By: #### C MP, TSH, HSTROPN #### [facility] [address] [place], [place] [address] Dr. Christos Fallon XR TSPINE 2 VIEWSon [...] GUILLERMO Date: 2021-11-19 12:49 Normal [facility] Cardiovascular Lab Reporton 11-17-2021 Cardiovascular Lab Report [facility] Patient Name: Christina [facility] MR #: [id number] Physician: Jonny Fowler M.D. Department of Service Date: 11/17/2021 Medicine Birthdate: 1980 Division of Room #: CC Cardiology Adult Cardiovascular Services [place] [address] Cardiovascular Laboratory Report PROCEDURE: Implantable loop recorder [...] subcutaneous pocket, into which was deployed a [employer] Mult[employer] BioMonitor 3 implantable loop recorder. Via off [...] Fowler M.D. Date Trans: 11/17/2021 12:41 P/toñito [id number] cc: Mert Lama M.D. [address] [place] [phone] Normal [facility] Covid-19 PCR (CVDTBH)on SARS-CoV-2 (COVID-19) RNA LEROY+probe Ql (Unsp spec) Not detected Normal NOT DETECTED [facility] Comment on above: Result Comment: This test is not yet approved or cleared by the [place] FDA. When there are no FDA-approved or cleared tests available, and other criteria are met, FDA can make tests available under an emergency access mechanism called an Emergency Use Authorization (EUA). The EUA for this test is supported by the [employer] of Health and Human Service's (HHS's) declaration [...] #### C MP, TSH, HSTROPN #### [facility] [address] [place] [address] Dr. Christos Fallon Covid-19 PCR ([facility])on SARS-CoV-2 (COVID-19) RNA LEROY+probe Ql (Unsp spec) Not detected Normal NOT DETECTED [facility] Comment on above: Result Comment: [...] for this test is supported by the [place] of Health and Human Service's declaration that [...] longer be used). Performed By: #### C VDTB #### [facility] [address] [place] [address] Dr. Christos Fallon Cardiovascular Lab Reporton 06-17-2021 Cardiovascular Lab Report [id number] Physician: Vishal Rogers MD Department of Service Date: 06/17/2021 Medicine Birthdate: 1980 Division of Room #: CC Cardiology Adult Cardiovascular Services [address] [place] [address] Cardiovascular Laboratory Report COMPREHENSIVE EP STUDY AND [...] same (more content not included)... Normal [facility] FEMUR LEFT 2 VWSon 1 FEMUR LEFT 2 S [facility] Department of Radiology [address] [place] [address] ======== Patient Name: KAILA VASQUEZ : 1980 Sex: F Age: Race: White Pt. 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 Approved by:Tavon Blockon01/15/2021 11:40 AM. IGelacio,have reviewed the image(s) and agree with the findings in this report. Electronically signed: Gelacio Pfeiffer. Transcribed by: [email or web address], User Resident: TAVON BLOCK Electronically Signed by: GELACIO PFEIFFER @ 01/15/2021 12:03 PM I personally read this/these film(s) with this resident Normal [facility] Comment on above: Order Comment: criss correa Operative Reporton Operative Report MR#: [id number] S [facility] Pt. Name: Kaila Vasquez Room #: 0C Discharge 12/05/2020 Date: Birthdate: 1980 OPERATIVE REPORT DATE OF SURGERY: 12/05/2020 SURGEON: Pamella Brennan M.D. PREOPERATIVE DIAGNOSIS: Left distal femur osteochondroma. POSTOPERATIVE DIAGNOSIS: Left distal femur osteochondroma. PROCEDURE PERFORMED: Left distal femur osteochondroma excision. FINANCIAL SERVICES EDUCATION CONSULTANT: Alaina Edouard M.D. ANESTHESIA: General endotracheal. SPECIMENS: [...] i (more content not included)... Normal [facility] FEMUR LEFT 2 Son FEMUR LEFT 2 S [facility] Department of Radiology [address] [place] [id number] ======== Patient Name: KAILA VASQUEZ : 1980 Sex: F Age: Race: White Pt. Location: OUTP Patient Status: O Ordered Date: 12/05/2020 7:30:00 AM Completed Date: 12/05/2020 10:05 AM Requesting Provider: PAMELLA BRENNAN Attending Provider: PAMELLA BRENNAN Report Copy To: Signs & Symptoms: LEFT DISTAL FEMUR OSTEOCHONDROMA EXCISION History: Comments: LEFT DISTAL FEMUR OSTEOCHONDROMA EXCISION Exam: FEMUR LEFT 2 [facility] ======== FEMUR LEFT 2 [facility] 12/05/2020 10:05 AM CLINICAL INDICATIONS: LEFT DISTAL [...] are obtained for documentation purposes. Electronically signed: Eddie Chamorro. Transcribed by: [email or web address], User Resident: Electronically Signed by: IRAWILLIS RADHA @ 12/05/2020 11:54 AM Normal [facility] Comment on above: Order Comment: LEFT DISTAL FEMUR OSTEOCHONDROMA EXCISION POC GLUCOSE LABon 12-05-2020 Glucose [Mass/Vol] 108 mg/dL High 70-100 [facility] Comment on above: Performed By: #### 8 [id number] ####[facility] [address] *MRSA/MSSA DNA NASALon 11-28 *MRSA/MSSA DNA NASAL Clinical Report: (D ) Specimen: NASAL SWAB Collected: 11/28/2020 13:22 Status: Final Last Updated: 2020 13:05 MSSA DNA (Final) Negative MRSA DNA (Final) Negative Normal [facility] Comment on above: Performed By: #### 3 1595 ####[facility] [address] APTTon 11-28-2020 aPTT Coag (Bld) [Time] 29.1 s Normal 25.0-35.0 [facility] Comment on above: Result Comment: [...] THIS PURPOSE. Performed By: #### 5 [id number], [id number] #### [facility] [address] BASIC METABOLIC PANELon 11-07 Calcium [Mass/Vol] 9.5 mg/dL Normal 8.6-10.3 [facility] Comment on above: Performed By: #### 0 0071 #### [facility] [address] [place] [address], [place] Chloride [Moles/Vol] 104 mmol/L Normal 98-107 [facility] Comment on above: Performed By: #### 0 0071 #### [facility] [address] [place] [address], [place] CO2 [Moles/Vol] 28 mmol/L Normal 21-31 [facility] Comment on above: Performed By: #### 0 0071 #### [facility] [address] [place] [address], [place] Creatinine [Mass/Vol] 0.90 mg/dL Normal 0.60-1.20 [facility] Comment on above: Performed By: #### 0 0071 #### [facility] [address] [place] [address], [place] GFR/1.73 sq M.predicted among blacks MDRD (S/P/Bld) [Vol rate/Area] mL/min/{1.73_m2} Normal >60 [facility] Comment on above: Performed By: #### 0 0071 #### [facility] [address] [place] [address], [place] GFR/1.73 sq M.predicted among non-blacks MDRD (S/P/Bld) [Vol rate/Area] mL/min/{1.73_m2} Normal >60 [facility] Comment on above: Performed By: #### 0 0071 #### [facility] [address] [place] [address], [place] Glucose [Mass/Vol] 132 mg/dL High 70-100 [facility] Comment on above: Performed By: #### 0 0071 #### [facility] [address] [place] [address], [place] Potassium [Moles/Vol] 3.8 mmol/L Normal 3.5-5.1 [facility] Comment on above: Performed By: #### 0 0071 #### [facility] [address] Sodium [Moles/Vol] 138 mmol/L Normal 136-145 [facility] Comment on above: Performed By: #### 0 1 #### [facility] [address] Urea nitrogen [Mass/Vol] 9 mg/dL Normal 7-25 [facility] Comment on above: Performed By: #### 0 1 #### [facility] [address] CBC W/DIFFon 11-28-2020 ABS IMM GRANS 0.0 10*3/uL Normal 0.0-0.2 [facility] Comment on above: Performed By: #### 5 102 ####[facility] [address] ABS NEUTROPHILS 7.2 10*3/uL Normal 1.6-7.6 [facility] Comment on above: Performed By: #### 5 102 ####[facility] [address] Basophils (Bld) [#/Vol] 0.1 10*3/uL Normal 0.0-0.2 [facility] Comment on above: Performed By: #### 5 102 ####[facility] [address] Basophils/100 WBC (Bld) 0.6 % Normal 0.0-1.0 [facility] Comment on above: Performed By: #### 5 102 ####[facility] [address] Eosinophils (Bld) [#/Vol] 0.3 10*3/uL Normal 0.0-0.5 [facility] Comment on above: Performed By: #### 5 0103 ####[facility] [facility] [facility] [place] [address], [facility] Eosinophils/100 WBC (Bld) 2.6 % Normal 0.0-6.0 [facility] Comment on above: Performed By: #### 102 ####[facility] [facility].[address] Erythrocyte distribution width (RBC) [Ratio] 12.6 % Normal 11.5-15.0 [facility] Comment on above: Performed By: #### 102 ####[facility] [address] Hematocrit (Bld) [Volume fraction] 42.6 % Normal 36.0-45.0 [facility] Comment on above: Performed By: #### 102 ####[facility] [address] Hemoglobin (Bld) [Mass/Vol] 14.4 g/dL Normal 12.0-15.0 [facility] Comment on above: Performed By: #### 102 ####[facility] [address] IMMATURE GRANS 0.3 % Normal 0.0-1.0 [facility] Comment on above: Performed By: #### 102 ####[facility] [facility].[address] Lymphocytes (Bld) [#/Vol] 2.1 10*3/uL Normal 1.2-4.0 [facility] Comment on above: Performed By: #### 3 ####[facility] [place] [address] Lymphocytes/100 WBC (Bld) 20.2 % Normal 20.0-45.0 [facility] Comment on above: Performed By: #### 3 ####[facility] [address] MCH (RBC) [Entitic mass] 33.6 pg High 27.0-33.0 [facility] Comment on above: Performed By: #### 5 3 ####[facility] [address] MCHC (RBC) [Mass/Vol] 33.8 g/dL Normal 32.0-35.0 [facility] Comment on above: Performed By: #### 3 ####[facility] [address] MCV (RBC) [Entitic vol] 99.5 fL High 82.0-98.0 [facility] Comment on above: Performed By: #### 5 102 ####[facility] [address] Monocytes (Bld) [#/Vol] 0.7 10*3/uL Normal 0.1-1.0 [facility] Comment on above: Performed By: #### 5 102 ####[facility] [address] MONOS 6.4 % Normal 5.0-12.0 [facility] Comment on above: Performed By: #### 5 3 ####[facility] [address] Neutrophils/100 WBC (Bld) 69.9 % Normal 40.0-72.0 [facility] Comment on above: Performed By: #### 5 3 ####[facility] [address] Nucleated RBC/100 WBC (Bld) [Ratio] 0 % Normal 0-0 [facility] Comment on above: Performed By: #### 5 102 ####[facility] [facility].[address] PLAT CNT 346 10*3/uL Normal 150-400 [facility] Comment on above: Performed By: #### 5 0103 ####[facility] [facility].[address] RBC (Bld) [#/Vol] 4.28 10*6/uL Normal 3.80-5.00 [facility] Comment on above: Performed By: #### 5 0103 ####[facility] [facility].[address] WBC (Bld) [#/Vol] 10.24 10*3/uL Normal 4.00-10.60 [facility] Comment on above: Performed By: #### 5 0103 ####[facility] [facility].[address] PROTHROMBIN TIMEon 1 INR Coag (PPP) [Relative time] 0.99 {INR} Normal 0.91-1.16 [facility] Comment on above: Result Comment: [...] CHEST 1995;108:231S-246S. Performed By: #### 5 7307, [id number] #### [facility] [address] [place] [address], [place] PT Coag (PPP) [Time] 13.1 s Normal 12.3-14.8 [facility] Comment on above: Result Comment: ALL RESULTS MUST BE INTERPRETED WITH RESPECT TO BLOOD DRAWING ARTIFACT OR DILUTION ERROR OF ANTICOAGULANT AT THE TIME OF SAMPLING. Performed By: #### 5 7307, [id number] #### [facility] [address] [place] [address], [place] TYPE AND CROSSMATCHon 2020 ABO INTERPRETATION O Normal [facility] Comment on above: Performed By: #### 6 2594 #### [facility] [address] [place] [address], [place] RH INTERPRETATION Positive Normal [facility] Comment on above: Performed By: #### 6 2594 #### [facility] [address] [place] [address], [place] URINALYSISon 11-28-2020 Appearance (U) CLEAR Normal CLEAR [facility] Comment on above: Performed By: #### 1 0008 #### [facility] [address] [place] [address], [place] Bilirubin Ql (U) Negative Normal NEGATIVE [facility] Comment on above: Performed By: #### 1 0008 #### [facility] [address] [place] [address], [place] Color (U) YELLOW Normal YELLOW [facility] Comment on above: Performed By: #### 1 0008 #### [facility] [address] [place] [address], [place] Glucose Ql (U) Negative Normal NEGATIVE [facility] Comment on above: Performed By: #### 1 0008 #### [facility] [address] [place] [address], [place] Hemoglobin Ql (U) Negative Normal NEGATIVE [facility] Comment on above: Performed By: #### 1 0008 #### [facility] [address] [place] [address], [facility] KETONE Negative Normal NEGATIVE [facility] Comment on above: Performed By: #### 1 0008 #### [facility] [address] [place] [address], [facility] LEUK JORDAN Negative Normal NEGATIVE [facility] Comment on above: Performed By: #### 1 0008 #### [facility] [address] [place] [address], [facility] MICRO NOT DONE Normal [facility] Comment on above: Result Comment: Micr oscopics not performed on urines with negative chemical reactions unless requested in original order Performed By: #### 1 0008 #### [facility] [address] [place] [address], [facility] Nitrite Ql (U) Negative Normal NEGATIVE [facility] Comment on above: Performed By: #### 1 0008 #### [facility] [address] [place] [address], [facility] pH (U) 6.0 [pH] Normal 5.0-8.0 [facility] Comment on above: Performed By: #### 1 0008 #### [facility] [address] [place] [address], [facility] Protein Ql (U) Negative Normal NEGATIVE [facility] Comment on above: Performed By: #### 1 0008 #### [facility] [address] [place] [address], [facility] SPEC GRAV 1.018 Normal 1.015-1.020 [facility] Comment on above: Performed By: #### 1 0008 #### [facility] [address] [place] [address], [facility] Vital Signs Date Time Vital Sign Value Performing Clinician Leeann milton 08-24-2022 13:44-0500 Body height 162.6 cm Janell Sy MD Work Phone: [facility] 08-24-2022 13:44-0500 Body weight 112.95 kg Janell [...] 08:12-0500 Body height 162.6 cm Glenroy Syed [employer]MAGIST[employer] Work Phone: [facility] 07-07-2022 08:12-0500 Body weight 112.04 kg Glenroy Syed [employer] Work Phone: [facility] 07-07-2022 08:12-0500 Diastolic blood pressure 88 mm[Hg] Glenroy Syed [employer]MAG[employer] Work Phone: [facility] 07-07-2022 08:12-0500 Heart rate 82 /min Glenroy Poultanisha [employer]MAG[employer] Work Phone: [facility] 07-07-2022 08:12-0500 SaO2% (BldA) [Mass fraction] 98 % Glenroy Russelltanisha [employer]MAGISTRATE Work Phone: [facility] 07-07-2022 08:12-0500 Systolic blood pressure 134 mm[Hg] Glenroy Syed [employer]MAGISTRATE Work Phone: [facility] 12-09-2021 13:59-0400 Blood Pressure Location Pamella NILL [facility] 12-09-2021 13:59-0400 Diastolic blood pressure 78 mm[Hg] Pamella NILL [facility] [place] 12-09-2021 13:59-0400 Heart rate 68 /min Pamella NILL [facility] [place] 12-09-2021 13:59-0400 Respiratory rate 16 /min Pamella NILL [facility] 12-09-2021 13:59-0400 Systolic blood pressure 118 mm[Hg] Pamella NILL [facility] [place] Encounters Encounter Date Encounter Type Care Provider Facility Start: 02-28-2025 ambulatory JONNY FOWLER [facility] Start: 02-25-2025 End: 02-25-2025 ambulatory Ari Sellers MD Facility: [facility] Start: 02-20-2025 ambulatory [facility] Start: 01-15-2025 End: 01-15-2025 ambulatory [facility] Start: 01-14-2025 End: 01-14-2025 ambulatory Ari Sellers MD Facility: [facility] Start: 01-03-2025 ambulatory [facility] Start: 12-24-2024 End: 12-24-2024 ambulatory Ari Sellers MD Facility:[facility] Start: 11-26-2024 End: 11-26-2024 ambulatory Cristiane L Brock Facility: [facility] Start: 11-15-2024 End: 11-15-2024 ambulatory Cristiane L Brock Facility:[facility] Start: 10-30-2024 ambulatory [facility] Start: 10-02-2024 End: 10-08-2024 Telephone encounter [facility] Comment on above: neuro referral Start: 09-18-2024 ambulatory [facility] Start: 09-11-2024 End: 09-11-2024 ambulatory Cristiane L Brock Facility:[facility] [place] Start: 07-16-2024 ambulatory [facility] Start: 06-29-2024 ambulatory [place] Start: 06-15-2024 ambulatory [facility] Start: 06-04-2024 End: 06-04-2024 ambulatory Ari Sellers MD Facility: [facility] Start: 05-31-2024 ambulatory [place] Start: 05-09-2024 ambulatory [place] Start: 04-27-2024 ambulatory [facility] Start: 03-06-2024 ambulatory [place] Start: 12-19-2023 End: 12-19-2023 ambulatory Cristiane L Brock Facility:[facility] Start: 10-25-2023 End: 10-25-2023 ambulatory IRMA SUDHA Not Available Start: 08-25-2023 End: 08-25-2023 ambulatory IRMA SUHDA Not Available Start: 10-15-2022 Orders Only Glenroy Syed APRN.MAGISTRATE Work Phone: Neurology Comment on above: 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 Facility:[facility] Start: 09-09-2022 ambulatory Mauri Lisa RT(R) Ra soto Comment on above: Radiology MRI Start: 09-09-2022 Patient encounter procedure Mauri Ross RT(R) RONALDO EASON Start: 09-02-2022 End: 09-02-2022 ambulatory ELENA GUAN Facility: Start: 08-24-2022 End: 08-24-2022 ambulatory [facility] Facility:[facility] Start: 08-24-2022 End: 08-24-2022 Patient encounter procedure Janlel Sy MD Work Phone: Cardiology Comment on above: KANG (obstructive sle ep apnea) (Primary Dx); Dizziness; Palpitations; Obesity, morbid, BMI 40.0-49.9 (HCC); SVT (supraventricular tachycardia) ([facility]); Chronic fatigue; Vitamin D deficiency Start: 08-20-2022 Orders Only Len VINCENTMAGISTRATE Work Phone: Neurology Comment on above: Ocular migraine (Dinora andres Dx) Start: 08-19-2022 End: 08-19-2022 ambulatory [facility] Neurology Comment on above: Neuro Ophthalmologis t Start: 08-16-2022 ambulatory [facility] Neurology Comment on above: MRI Start: 08-12-2022 End: 08-12-2022 ambulatory [facility] Facility:[facility] Start: 08-12-2022 End: 08-12-2022 ambulatory Carmen Johnson PT Work Phone: Physical Therapy Comment on above: Dizziness (Primary D x); Cervicalgia; Headaches Start: 08-05-2022 End: 08-05-2022 ambulatory [facility] Facility:[facility] Start: 08-05-2022 End: 08-05-2022 ambulatory Carmen Seese PT Work Phone: Physical Therapy Comment on above: Dizziness (Primary D x); Cervicalgia; Headaches Start: 07-29-2022 End: 07-29-2022 ambulatory WM RODRIGUEZ Facility:[facility] Start: 07-21-[address] MERT LAMA Facilit y:[facility] Start: 07-07-2022 Telephone encounter Glenroy rodriguez [employer]MAGIST[employer] Work Phone: Neurology Comment on above: Received Outside Med ical Records Start: 07-07-2022 End: 07-07-2022 ambulatory GLENROY SYED Facility:[facility] Start: 07-07-2022 End: 07-07-2022 Patient encounter procedure Glenroy Syed [employer]MAGIST[employer] Work Phone: Neurology Comment on above: Dizziness [...] examination without abnormal findings DR MERT LAMA [facility] Start: 11-19-2021 End: 11-20-[address] MERT LAMA Facility:[facility] Start: 11-19-2021 End: 11-20-2021 Encounter for general adult medical examination without abnormal findings DR MERT LAMA Facility:[facility] Start: 11-17-2021 End: 11-18-2021 ambulatory MERT LAMA Facility:[facility] Start: 11-14-2021 End: 11-15-2021 ambulatory ANU MEE Facility:[facility] Start: 10-08-2021 End: 10-08-2021 ambulatory WM RODRIGUEZ Facility:[facility] Start: 06-17-2021 End: 06-18-2021 ambulatory MERT LAMA Facility:[facility] Start: 04-16-2021 End: 05-23-2021 ambulatory MERT LAMA Facility:[facility] Start: 12-05-2020 End: 12-06-2020 ambulatory MERT DANIEL Facility:[facility] Procedures Date Procedure Procedure Detail Performing Clinician Start: 08-24-2022 Ecg routine ecg w/le ast 12 lds i&r only [facility] Provider Start: 12-05-2020 ANESTH KNEE AREA SURGERY MERT LAMA Start: 12-05-2020 REMOVE FEMUR LESION CARLOS BRENNAN Start: 11-28-2020 Antibody screen MERT CHOUDHARY HIAr Comment on above: Performed By: #### 6 [id number] #### [address] Start: 11-04-2020 Cystourethroscopy wi th dilation of urethral stricture Pamella SANABRIA Abdominal hysterectomy Wale jennifer SANABRIA Bilateral complete salpingectomy Pamella SANABRIA Cardiac radiofrequen cy ablation using ultrasound guidance Pamella SANABRIA Cholecystectomy Pamella SANABRIA Excision of osteochondroma M nicolle DANIELE History of ankle surgery Carlos SANABRIA Plan of Treatment Date Care Activity Detail Author Start: 04-08-2024 COVID-19 Vaccine () COVID-19 Vaccine () [facility] Start: 04-08-2024 Influenza vaccination Influenza Vacc ine [facility] Start: 08-08-2022 DEPRESSION [address]ESS[address] DEPRESSION ASS [facility] Start: 07-07-2022 End: 09-06-2022 25-hydroxyvitamin D3 [Mass/volume] in Serum or Plasma [facility] Work Phone: Comment on above: Expected: 07/07/2022 , Expires: 09/06/2022 Start: 07-07-2022 End: 09-06-2022 ESEQUIEL BY IFA WITH REFLEX [facility] Work Phone: Comment on above: Expected: 07/07/2022 , Expires: 09/06/2022 Start: 04-08-2022 Influenza vaccination INFLUENZA (#1) [facility] Start: 08-08-2021 DEPRESSION ASSESSMENT DEPRESSION ASS [facility] Start: 11-05-2020 COVID-19 VACCINE (3 - Booster for Giancarlo series) COVID-19 VACCINE (3 - Booster for Giancarlo series) [facility] Start: 2012 HPV TESTING HPV TESTING [facility] Start: 12-29-2003 DTaP,Tdap and Td Vac cines (6 - Tdap) DTaP,Tdap and Td Vaccines (6 - Tdap) [facility] Start: 11-30-2003 PAP TESTING PAP TESTING [facility] Start: 11-30-2003 Screening for malign ant neoplasm of cervix Pap Smear [facility] Start: 2001 Urine microalbumin profile DTA P,TDAP,TD (1 - Tdap) [facility] Start: 2000 Adult BMI Screening Adult BMI Screen ing [facility] Start: 2000 HEPATITIS C SCREENING HEPATITIS C SC REENING [facility] Start: 2000 HIV SCREENING HIV SCREENING [facility] Start: 1994 Depression Screening Depression Scre ening [facility] Start: 1994 Tobacco Screening Tobacco Screening [facility] Start: 1982 HEPATITIS B (1 of 3 - 3-dose series) HEPATITIS B (1 of 3 - 3-dose series) [facility] End: 08-24-2023 ECG COMPLETE ECG COMPLETE ECG Routine Dizziness Palpitations Obesity, morbid, BMI 40.0-49.9 (HCC) 1 Occurrences starting 08/24/2022 until 08/24/2023 [facility] Work Phone: Comment on above: 1 Occurrences starti ng 08/24/2022 until 08/24/2023 ECG COMPLETE ECG COMPLETE ECG 08/24/2022 1:56 PM EST [facility] End: 07-07-2023 Echocardiography ECHO Cardiology Routine Palpitations 1 Occurrences starting 07/07/2022 until 07/07/2023 [facility] Work Phone: Comment on above: 1 Occurrences starti ng 07/07/2022 until 07/07/2023 End: 08-06-2023 Mri brain brain stem w/o w/contrast material MRI BRAIN WO/W IVCON Radiology Routine Dizziness Vision changes 1 Occurrences starting 07/07/2022 until 08/06/2023 [facility] Work Phone: Comment on above: 1 Occurrences starti ng 07/07/2022 until 08/06/2023 End: 09-15-2023 Mri spinal canal cervical w/o & w/contr matrl MRI CERVICAL SPINE WO/W IVCON Radiology Routine Dizziness Vision changes Cervicalgia Disturbance of skin sensation 1 Occurrences starting 08/16/2022 until 09/15/2023 [facility] Work Phone: Comment on above: 1 Occurrences starti ng 08/16/2022 until 09/15/2023 [facility] Immunizations Immunization Date Immunization Notes Care Provider Tayo cullen 09-10-2020 SARS-CoV-2 (COVID-19 ) Ad26 vaccine, recombinant Pamella NILL [facility] 08-12-2020 SARS-CoV-2 (COVID-19 ) Ad26 vaccine, recombinant Pamella NILL [facility] [place] Payers Date Payer Category Payer Unknown [id number] 2021 Unknown [id number] 1982 Unknown [id number] 2.16.8 40.1.415083.3.579.2.647 1982 Unknown [id number] 2.16.8 40.1.669835.3.579.2.647 1982 Unknown [id number] 2.16.8 40.1.959592.3.579.2.647 1982 Unknown [id number] 2.16.8 40.1.350673.3.579.2.647 1982 Unknown [id number] 2.16.84 0.1.211933.3.579.2.593 1982 Unknown [id number] 2.16.84 0.1.464019.3.579.2.593 1982 Unknown [id number] 2.16.84 0.1.094424.3.579.2.593 1982 Unknown [id number] 2.16.84 0.1.673248.3.579.2.593 1982 Unknown [id number] 2.16.84 0.1.043909.3.579.2.593 1982 Unknown [id number] 2.16.84 0.1.179895.3.579.2.593 1982 Unknown [id number] 2.16.84 0.1.290167.3.579.2.593 1982 Unknown [id number] 2.16.84 0.1.603640.3.579.2.593 1982 Unknown [id number] 2.16.84 0.1.702011.3.579.2.593 1982 Unknown [id number] 2.16.84 0.1.240811.3.579.2.593 1982 Unknown [id number] 2.16.84 0.1.594767.3.579.2.593 1982 Unknown [id number] 2.16.84 0.1.944477.3.579.2.593 1982 Unknown [id number] 2.16.84 0.1.206882.3.579.2.593 1982 Unknown [id number] 2.16.84 0.1.869985.3.579.2.593 1982 Unknown [id number] 2.16.84 0.1.424693.3.579.2.593 1982 Unknown [id number] 2.16.84 0.1.632748.3.579.2.1259 1982 Unknown [id number] 2.16.84 0.1.446668.3.579.2.1259 1982 Unknown [id number] 2.16.8 40.1.090727.3.579.2.727 1982 Unknown [id number] 2.16.8 40.1.923669.3.579.2.727 1982 Unknown [id number] 2.16.8 40.1.569943.3.579.2.727 1982 Unknown [id number] 2.16.8 40.1.422894.3.579.2.727 1982 Unknown [id number] 2.16. 840.1.104770.3.579.2.196 1982 Unknown [id number] 2.16 840.1.178456.3.579.2.196 1982 Unknown [id number] 2.16 840.1.773251.3.579.2.196 1982 Unknown [id number] 2.16 840.1.942592.3.579.2.196 1959 Unknown [id number] Social History Date Type Detail Facility Start: 05-01-2021 End: 12-09-2021 Tobacco smoking status Never smoked tobacco (finding) [facility] Tobacco smoking status Never [facility] Start: 01-17-2019 End: 05-01-2021 Sex Assigned At Female [facility] Start: 05-01-2021 End: 07-07-2022 Tobacco use and exposure Smokeless tobacco non-user [facility] Start: 1980 Sex Assigned At Not on file [facility] Start: 06-27-2022 End: 07-07-2022 Exposure to SARS-CoV-2 (event) Not sure [facility] Start: 05-01-2021 End: 08-24-2022 Alcohol intake Current drinker of alcohol (finding) [facility] Start: 08-24-2022 Alcohol Comment occasionally 1 -2 times a months 2-3 drinks [facility] Start: 01-17-2019 End: 05-01-2021 History of Social function [facility] Start: 05-01-2021 Alcohol Comment social [facility] Start: 03-13-2015 Sex Female (finding) [facility] Clinical Notes 12-30-2021 to 01-15-2025 Telephone Encounter [...] she's been having lots of PAC's . Kiln lots of them on 01/11/2025 around 11:52am. Says these episodes scares her and they've been happening more frequently. Denies chest pain. There are no events noted on the [employer] website corresponding to that thedate. 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 Pt had COVID recently and since then has been experiencing palpitations. She notes these when she is changing positions and also when she bends down. 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 [facility] 10-02-2024 Miscellaneous Notes Received new patient [...] message for patient documented in this encounter [employer] 10-02-2024 Telephone encounter Note Received new patient [...] EVER BEEN SEEN BY A NEUROLOGIST BEFORE? [employer] 10-02-2024 Telephone encounter Note 1st attempt- left voicemail Received Referral from: JOSE ANTONIO Mcclendon Dx: Facial tingling M62.838 (ICD-10-CM) - Muscle spasm [facility] Telephone encounter Note 2nd attempt: Left message for patient [employer] 10-14-2022 Note HNO ID: [id number] Author: RT Mary(R) Service: ? Author Type: [...] RT Mary(R) October 14, 2022 4:55 PM [facility] 10-14-2022 Note HNO ID: [id number] Author: Papa Rea RN Service: Radiology Author [...] DATE: October 14, 2022 TIME: 3:20 PM [facility] 09-09-2022 Note HNO ID: [id number] Author: RT Od[place](R) Service: ? Author Type: [...] 09, 2022 TIME: 2:11 PM PAGER/CONTACT #: [facility] 09-09-2022 History of Present illness Narrative [...] [facility] 08-24-2022 Note HNO ID: [id number] Author: Janell Sy MD Service: ? Author Type: Physician Type: Progress Notes Filed: 08/24/2022 2:17 PM Note Text: [facility] [place] SECTION OF REGIONAL CARDIOLOGY OUTPATIENT VISIT DATE August 24, 2022 OUTPATIENT VISIT TYPE NEW PRIMARY CARE PHYSICIAN: To use this Smartlink, specify the provider ID whose address you want to display, e.g., .PROVADDR[1 (where 1 is the provider ID). A written report of the findings and recommendations will be sent to the requesting provider via shared medical record or via [facility]. Patient is being seen at the [...] Cardiac work-up includes: Echocardiogram on 05/19/2020 at [facility] showed normal ejection fraction. [...] COMPLETE 4. Obesity, morbid, BMI 40.0-49.9 ([facility]) E66.01 ECG COMPLETE 5. SVT (supraventricular tachycardia) ([facility]) I47.1 6. Chronic fatigue R53.82 [...] Never Vaping U (more content not included)... [facility] 08-24-2022 History of Present illness Narrative Images from the original note were not included. [facility] [place] SECTION OF REGIONAL CARDIOLOGY OUTPATIENT VISIT DATE August 24, 2022 OUTPATIENT VISIT TYPE NEW PRIMARY CARE PHYSICIAN: To use this Smartlink, specify the provider ID whose address you want to display, e.g., .PROVADDR[1 (where 1 is the provider ID). A written report of the findings and recommendations will be sent to the requesting provider via shared medical record or via [email or web address]. Patient is being seen at the request [...] Cardiac work-up includes: Echocardiogram on 05/19/2020 at [facility] showed normal ejection fraction. [...] COMPLETE 4. Obesity, morbid, BMI 40.0-49.9 ([facility]) E66.01 ECG COMPLETE 5. SVT (supraventricular tachycardia) ([facility]) I47.1 6. Chronic fatigue R53.82 [...] [facility] 08-19-2022 Note HNO ID: [id number] Author: Mauri Chun OD Service: ? Author Type: JAVA SUPPORT ENGINEER Type: Progress Notes Filed: 08/19/2022 10:22 AM Note Text: Ocular health is unremarkable with no abnormalities. Normal ON appearance Ophthalmic migraines Glasses Rx given with slight prism [facility] 08-16-2022 Miscellaneous Notes signed We can add it to fully evaluate her symptoms. -LP documented in this encounter [facility] 08-12-2022 Note HNO ID: [id number] Author: Carmen Johnson, PT Service: ? Author [...] Treatment Time Minutes (timed/untimed): 60 Carmen Johnson, BRENDA [facility] 08-12-2022 History of Present illness Narrative [...] Total Treatment Time Minutes (timed/untimed): 60 Carmen Seese, PT documented in this encounter [facility] 08-05-2022 Note HNO ID: [id number] Author: Carmen Johnson PT Service: ? Author [...] Planned: 8 Planned Treatment Interventions: Therapeutic exercise (55912);Neuromuscular re-education (36038);Manual therapy (74242);Therapeutic activities (51881);Self-skilled nursing management (41270);Patient/Family/Caregiver Education;Gait Training (04905);Canalith Repositioning Maneuvers (32666) PLAN FOR NEXT VISIT: Detailed neck exam [...] Premature atrial contra (more content not included)... [facility] 08-05-2022 History of Present illness Narrative [...] Planned: 8 Planned Treatment Interventions: Therapeutic exercise (06726);Neuromuscular re-education (06898);Manual therapy (77461);Therapeutic activities (28532);Self-skilled nursing management (77939);Patient/Family/Caregiver Education;Gait Training (38558);Canalith Repositioning Maneuvers (39784) PLAN FOR NEXT VISIT: Detailed neck exam [...] present Head Shake: Negative Positional Testing Right [place]-Hallpike: No nystagmus;Asymptomatic Left [place]-Hallpike: No nystagmus;Asymptomatic Right Nylen Barany: No nystagmus;Asymptomatic [...] [facility] 07-07-2022 Note HNO ID: [id number] Author: Glenroy Syde APRN.MAGISTRATE Service: ? Author Type: Nurse Practitioner Type: [...] over a month. 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 A couple times a month she [...] for 1 dose.N (more content not included)... [facility] 07-07-2022 Miscellaneous Notes Noted. Provider notified. Received medical records from [facility]. Uploaded to chart and forwarded [...] over a month. 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 A couple times a month she [...] Finger Abduction (U) 5 Finger Abduction 5 Kitchen Porter 5 Kitchen Porter 5 Right Lower Extremity: (of 5) Left [...] over a month. 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 A couple times a month she [...] VT reccommended. Patient wanting second opinion from import/export analyst within the [facility], referral placed. Unlikely autonomic dysfunction with unremarkable tilt and orthostatic vitals in office unconvincing (did not take BB today). Additionally, with visual changes, recommended seeing neuro hospice chaplain. Will obtain additional labs as well. Follow [...] which included preparing to see the patient, [id number] patient care, completing clinical documentation, obtaining and/or reviewing separately obtained history, performing a medically appropriate examination, counseling and educating the patient/family/caregiver, ordering medications, tests, or procedures, and care coordination (not separately reported). Glenroy Syed APRN.MAGISTRATE [facility] General Neurology [address] [place] [address] Appointment: [phone] In regards to blood work, testing, and [...] authenticated by: BETTY MORALES Date: 2022-03-16 18:13 [facility] 12-30-2021 Note [facility] [place], [place] NAME: KAILA VASQUEZ DATE OF : MEDICAL REC#: [id number] DEPUTY DIRECTOR OF FINANCE[facility]: 12/30/2021 09:02:00 [employer]PER[employer]ILS DATE: 12/30/2021 21:00 DICTATING PHYSICIAN: PAMELLA SANABRIA [...] by: DR PAMELLA SANABRIA . 01/06/2022 08:31:00 [facility] Evaluation + Plan note No data available for this section General Surgery [place] Evaluation note Diagnosis Dizziness- Primary Dizziness and [...] giddiness Cervicalgia Headaches documented in this encounter [facility] note* Diagnosis Dizziness- Primary Dizziness and giddiness Cervicalgia Headaches documented in this encounter [facility] note* Diagnosis Cervicalgia- Primary Dizziness Dizziness and giddiness Vision changes Unspecified visual disturbance Disturbance of skin sensation documented in this encounter [facility] note* Diagnosis Ocular migraine- Primary Other forms of migraine, without mention of intractable migraine without mention of status migrainosus documented in this encounter [facility] note* Diagnosis KANG (obstructive sleep apnea)- Primary Obstructive sleep apnea (adult) (pediatric) Dizziness Dizziness and giddiness Palpitations Obesity, morbid, BMI 40.0-49.9 (HCC) Morbid obesity SVT (supraventricular tachycardia) (HCC) Other specified cardiac dysrhythmias Chronic fatigue Other malaise and fatigue Vitamin D deficiency Unspecified vitamin D deficiency documented in this encounter [facility] note* Diagnosis Degeneration of intervertebral disc of cervical region with osteophyte of cervical vertebra- Primary documented in this encounter [facility] Discharge instructions No data available for this section General Surgery Kailyn InstructionsNot on filedocumented in this [facility] Outpatient Procedure (Routine) - Authorized Specialty Diagnoses / Procedures Referred By Eric t Referred To Contact [facility] Diagnoses Dizziness Palpitations Obesity, morbid, BMI 40.0-49.9 (HCC) Procedures ECG COMPLETE ECG ROUTINE ECG W/LEAST 12 LDS W/I&R Janell Sy MD [address] [place] [address] [facility] [place] [address] [place] [address] Referral ID Status Reason Start Date Expiration Date Visits Requested Visits Authorized [id number] Authorized Auto-Generat ed Referral 08/24/2022 08/24/2023 1 1 [facility] Summary Purpose Family History No [...] By Contac t Referred To Contact [facility] [place] Diagnoses Degeneration of intervertebral disc of cervical region with osteophyte of cervical vertebra Procedures CONSULT TO [facility] OFFICE/OUTPATIENT [facility] 60-74 MINUTES Glenroy Syed, LIMEROCK TOWER LOADER.MAGISTRATE [address] [place] [address] Referral ID Status Reason Start Date Expiration Date Visits Requested Visits Authorized [id number] Authorized PCP Requested Referral 10/15/2022 10/15/2023 1 1 Specialty Diagnoses / Procedures Referred By Contac t Referred To Contact Ophthalmology Diagnoses Ocular migraine Procedures CONSULT TO OPHTHALMOLOGY OFFICE/OUTPATIENT [facility] 60-74 MINUTES Len Shea, LIMEROCK TOWER LOADER.MAGISTRATE [address] [facility] [place] [address] [place] [address] Josefina Grimes MD [address] [place] [address] Referral ID Status Reason Start Date Expiration Date Visits Requested Visits Authorized [id number] Authorized PCP Requested Referral 08/20/2022 08/20/2023 1 1 Specialty Diagnoses / Procedures Referred By Contac t Referred To Contact Cardiology Diagnoses Dizziness Palpitations Procedures CONSULT TO CARDIOLOGY OFFICE/OUTPATIENT [facility] 60-74 MINUTES Glenroy Syed, LIMEROCK TOWER LOADER.MAGISTRATE [address] [place] [id number] Referral ID Status Reason Start Date Expiration Date Visits Requested Visits Authorized [id number] Authorized PCP Requested Referral 2 07/07/2023 1 1 Specialty Diagnoses / Procedures Referred By Contac t Referred To Contact MR IMAGING Diagnoses Dizziness Vision changes Procedures MRI BRAIN WO/W IVCON MRI BRAIN BRAIN STEM W/O W/CONTRAST MATERIAL Glenroy Syed, LIMEROCK TOWER LOADER.MAGISTRATE [address] [place] [id number] [facility] Referral ID Status Reason Start Date Expiration Date Visits Requested Visits Authorized [id number] Authorized Auto-Generat ed Referral 2 08/21/2022 1 1 Specialty Diagnoses / Procedures Referred By Contac t Referred To Contact Ophthalmology Diagnoses Vision changes Procedures CONSULT TO OPHTHALMOLOGY OFFICE/OUTPATIENT [facility] MDM 60-74 MINUTES Glenroy Syed, LIMEROCK TOWER LOADER.MAGISTRATE [address] [place] [id number] Josefina Grimes MD [address] [place] [address] Referral ID Status Reason Start Date Expiration Date Visits Requested Visits Authorized [id number] Authorized PCP Requested Referral 2 07/07/2023 1 1 Specialty Diagnoses / Procedures Referred By Contac t Referred To Contact [facility] Diagnoses Palpitations Procedures ECHO ECHO TTHRC R-T 2D W/WOM-MODE COMPL SPEC&COLR D Glenroy Syed, LIMEROCK TOWER LOADER.MAGISTRATE [address] [place] [address] [facility] [place] [address] [place] [address] Referral ID Status Reason Start Date Expiration Date Visits Requested Visits Authorized [id number] Authorized Auto-Generat ed Referral 2 07/07/2023 1 1 Additional Source Comments INFORMATION SOURCE (unrecogn ized section and content) DATE CREATED AUTHOR 11/24/2021 [facility] DATE CREATED AUTHOR AUTHOR'S ORGANIZ ATION 07/20/2022 [facility] DATE CREATED AUTHOR AUTHOR'S ORGANIZ ATION 09/06/2022 [facility] DATE CREATED AUTHOR AUTHOR'S ORGANIZ ATION 10/16/2022 [facility] DATE CREATED AUTHOR AUTHOR'S ORGANIZ ATION 10/26/2023 [facility] DATE CREATED AUTHOR AUTHOR'S ORGANIZ ATION 11/27/2024 [facility] DATE CREATED AUTHOR AUTHOR'S ORGANIZ ATION 03/02/2025 [facility] DATE CREATED AUTHOR AUTHOR'S ORGANIZ ATION 03/08/2025 [facility] Source Comments (unrecognize d section and content) [...] NEW RS PT VESTIBULAR DIZZY Glenroy Syed, ELISEO.MAGISTRATE [address] [place] [id number] Carmen Johnson, PT [address] [place] [address] Referral ID Status Reason Start Date Expiration Date Visits Re quested Visits Authorized [id number] Closed 08/08/2021 08/07/2022 30 30 Reason Comments Physical Therapy Specialty Diagnoses / Procedures Referred By Contac t Referred To Contact PHYSICAL THERAPY Diagnoses Dizziness Procedures Physical Therapy Glenroy Syed APRN.MAGISTRATE [address] [place] [address] [facility] [address] [place] [address] Referral ID Status Reason Start Date Expiration Date V isits Requested Visits Authorized [id number] Pending Review 08/12/2022 11/10/2022 1 1 Reason Comments Establish Care Palpitations Dizziness Specialty Diagnoses / Procedures Referred By Contac t Referred To Contact Cardiology Diagnoses Dizziness Palpitations Procedures CONSULT TO CARDIOLOGY OFFICE/OUTPATIENT [facility] 60-74 MINUTES Glenroy Syed, LIMEROCK TOWER LOADER.MAGISTRATE [address] [place] [address] Referral ID Status Reason Start Date Expiration Date V isits Requested Visits Authorized [id number] Closed PCP Requested Referral 07/07/2022 07/07/2023 1 1 Reason Comments Radiology MRI Reason Onset Date Comments neuro referral 10/02/2024 Care Teams (unrecognized sec tion and content) Fabric And Accessories Estimator Relationship Specialty Start Date End Date Mert Lama MD [address] [place] [address] Referring Family Medicine 06/10/22 [employer] Access[employer] Estimator Relationship Specialty Start Date End Date Mert Lama MD [address] [place] [address] Referring Family Medicine 06/10/22 [employer] And Access[employer] Estimator Relationship Specialty Start Date End Date Mert Lama MD [address] [place] [address] Referring Family Medicine 06/10/22 [employer] And Accessories Estimator Relationship Specialty Start Date End Date Mert Lama MD [address] [place] [address] Referring Family Medicine 06/10/22 Fab[employer] And Accessories Estimator Relationship Specialty Start Date End Date Mert Lama MD [address] [place] [address] Referring Family Medicine 06/10/22 Fab[employer] And Accessories Estimator Relationship Specialty Start Date End Date Mert Lama MD [address] [place] [address] Referring Family Medicine 06/10/22 Fab[employer] And Accessories Estimator Relationship Specialty Start Date End Date Mert Lama MD [address] [place] [address] Referring Family Medicine 06/10/22 Fab[employer] And Accessories Estimator Relationship Specialty Start Date End Date Mert Lama MD [address] [place] [address] Referring Family Medicine 06/10/22 Fabric And Accessories Estimator Relationship Specialty Start Date End Date Mert [...] BE BASED ON THE PRIMARY CLINICAL RECORDS. [facility]. provides no warranty or guarantee of the accuracy or completeness of information in this document.
[2025-03-11 06:49] VITALS: BP 112/78; PULSE 68; TEMP 37.1; O2SAT 98
[2025-03-11] MEDS: 0.9 % SODIUM CHLORIDE 500 ML IV (07:13)
[2025-03-11] MEDS: LIDOCAINE HCL 2% 400 MG/20 ML MDV 8 ML INJ (07:44)
[2025-03-11] MEDS: BUPIVACAINE HCL 0.25% PF 25 MG/10 ML VIAL 2 ML INJ (07:45)
[2025-03-11] MEDS: DEXAMETHASONE SOD PHOS 10 MG/ML VIAL INJ (07:46)
--- NOTE | 2025-03-11 07:48 | P.ON_ITS ---
Date of procedure: 03/11/25 Pre-op diagnosis: Pain due to cervical spondylosis without myelopathy Post-op diagnosis: same as pre-op Procedure: Procedure: Left C4-5, 5-6 radiofrequency ablation Medications: Bupivacaine 0.25% 2cc, dexamethasone 10mg, lidocaine 2% 3cc The patient was seen and examined in the preoperative holding area.? The site was marked.? Written informed consent was obtained and placed on the chart.? The patient was brought to the medical procedure unit and placed in the prone position.? A timeout was completed verifying correct patient, procedure, positioning, and special requirements.? The skin overlying the target points, the designated medial branch, was prepped and draped in the usual sterile fashion.? The target point was achieved with a 20-gauge 15 cm with a 10 mm curved active tip radiofrequency cannula under direct fluoroscopic visualization.? The needle was inserted at level C4 on the left side. Needle tip position was confirmed with lateral fluoroscopic position.? Motor stimulation was carried out at 2 Hz up to 5 volts with the absence of extremity activity.? This was repeated at level C5, 6 on left side.?? Sensory stimulation was carried out.? Concordant pain was realized at the above- mentioned sites.? Then radiofrequency lesioning was carried out times 90 seconds at 80 degrees times 2 lesions at each level.? The radiofrequency probe was removed prior to cannula removal.? The above-mentioned injectate was placed in 1 mL increments.? The needle was removed.? Insertion sites were covered.? The patient was taken to the postoperative recovery area and monitored for an appropriate length of time before being found suitable for discharge in the company of a responsible adult. Anesthesia: MAC Surgeon: Ari Sellers Pathology: none sent Condition: stable Disposition: no change
[2025-03-11 07:55] VITALS: BP 122/81; PULSE 74; TEMP 36.5; O2SAT 95
[2025-03-11 07:59] VITALS: BP 109/76; PULSE 76; TEMP 36.5; O2SAT 96
== END 2025-03-11 08:15 | disposition home or self-care (01) ==
LOC: SURGOUT 06:30
PROVIDERS: PCP Nurse Practitioner; Visit Provider Anesthesiology
DX: M47.812 Spondylosis without myelopathy or radiculopathy, cervical region (principal); M54.2 Cervicalgia
CPT/HCPCS: 64633; 64634; J0665; J1100; J2704

== ENCOUNTER 2025-04-11 07:12 | Outpatient (OUT) | payer BC, SELFPAY ==
--- OUTSIDE RECORDS SUMMARY | 2025-04-11 07:15 | XMS_ITS | CCD ---
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 Role Phone MERT LAMA Referring Unavailable PAMELLA BRENNAN Attending Unavailable MIKA, PAMELLA Ang Surgeon Unavailable PAMELLA BRENNAN Admitting Unavailable ID Procedure Practitioner Unavailab MERT Caban Primary Care [...] Unavailable ZIEBER, DR TAMIE Felipe Consulting Unavailable JENNIFERWM ABARCA Admitting Unavailable LAMA, DR MERT Forrest Primary [...] SY Attending Unavailable MAURI CHUN Attending Unavailable POULTON, GLENROY Referring Unavailable IRMA CORTES Attending Unavailable IRMA CORTES Attending Unavailable Mert Lama MD Primary Care Provider Cristiane Gutiérrez Attending Unavailable Brock, Cristiane Bangura Attending Unavailable BrockCristiane yusuf Attending Unavailable BrockCristiane [...] VISHAL Referring Unavailable SUE, VISHAL Attending Unavailable SUE, VISHAL Referring Unavailable SUE, VISHAL Referring Unavailable SUE, VISHAL Referring Unavailable SUE, VISHAL Referring Unavailable MANUEL, JONNY Referring Unavailable Medications [...] Comment on above: Take 1 capsule by [facility] once daily. 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; Translations: [OTH ASSISTED CURRENT DRUG THERAPY] Onset: 09-06-2022 Episodic Other [...] of urinary calculi] Onset: 2 11-04-2020 Episodic Deficiency and other anemia (4 [...] Value Interpretation Reference Range Facility Orders Onlyon 03-26-2025 Orders Only [id number] Bacilio Vasquez y N 1980 F Date Provider Department Center 03/26/2025 [facility] No family history on file Normal [facility] Orders Onlyon 02-23-2025 Orders Only [id number] Bacilio Vasquez y N 1980 F Date Provider Department Center 02/23/2025 [facility] [place] [facility] No family history on file Normal [facility] Office Visiton 01-15-2025 Follow-up visit [id number] Bacilio Vasquez y N 1980 F Date Provider Department Center 01/15/2025 [facility] No family history on file Level of Service:57833 ID OFFICE/OUTPATIENT ESTABLISHED LOW MDM 20 MIN Normal [facility] Orders Onlyon 12-24-2024 Orders Only [id number] Bacilio Vasquez y N 1980 F Date Provider Department [place] 12/24/2024 [facility] [place] [facility] No family history on file Normal [facility] 36on 12-11-2024 36 Patient has not been seen since 2022 will need in person appointment for further refills Normal [facility] 36on 12-07-2024 36 Patient has not been seen since 2022 Normal [facility] Family Medicine Office/Clini c Noteon 11-16-2024 Family [...] day(s), # 14 tab(s), Refills(s) 0, Pharmacy: [id number], 165.1, cm, 11/15/24 15:29:00 EDT, Height/Length [...] day(s), # 14 tab(s), Refills(s) 0, Pharmacy: [id number], 165.1, cm, 11/15/24 15:29:00 EDT, Height/Length Dosing, 116, kg, 11/15/24 15:29:00 EDT, Weight Dosing 4. Non-smoker (Z78.9: Other specified health status) continue not smoking Ordered: amoxicillin-clavulanat e, = 1 tab(s), Oral, q12hr, X 7 day(s), # 14 tab(s), Refills(s) 0, Pharmacy: [id number], 165.1, cm, 11/15/24 15:29:00 EDT, Height/Length [...] 50,000 intl units (1.25 mg) oral capsule, 67945 International_Unit= 1 cap(s), Oral, qWeek Allergies No [...] vaccine 09/10/2020 (more content not included)... Normal [facility] Comment on above: Result Comment: Elec tronically Signed By: Cristiane Brasher.br\Date and Time Signed: 11/16/24 14:28 EDT 36on 11-05-2024 36 Patient will need follow up appointment for further refills has not been seen since 2022 Normal [facility] Family Medicine Office/Clini c Noteon [...] tunnel vision and muscle spasm to bilateral holiness and sharp pain to right holiness. Tongue/whole mouth felt like it had an [...] want to go to [place]. [facility] sent Or[place]: [facility] [place] 2. Facial tingling (R20.2: Paresthesia of skin) pt had episode when she had facial tingling, and in her mouth. she states it felt like she put a battery to her tongue. Ordered: [facility] [place] 3. Pressure in head (R51.9: Headache, unspecified) c/o constant pressure of her head. Ordered: [facility] [place] Referral 4. 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 so much that it made her glasses move up and down. referral to neurology sent Ordered: [facility] [place] Referral 5. Right upper quadrant [...] Daily, # 30 tab(s), Refills(s) 0, Pharmacy: [id number], 165.1, cm, 12/19/23 13:17:00 EDT, Height/Length Dosing, 114.6, kg, 12/19/23 13:17:00 EDT, Weight Dosing [facility] [place] Referral 9. Non-smoker (Z78.9: Other specified health status) continue not smoking Ordered: meloxicam, 15 mg = 1 tab(s), Oral, Daily, # 30 tab(s), Refills(s) 0, Pharmacy: [id number], 165.1, cm, 12/19/23 13:17:00 EDT, Height/Length [...] PAIN, # 30 tab(s), Refills(s) 0, Pharmacy: [id number], 165.1, cm, 12/19/23 13:17:00 EDT, Height/Length [...] Metoprolol tart (more content not included)... Normal [facility] Comment on above: Result Comment: Elec tronically Signed By: Cristiane Brasher\.br\Date and Time Signed: 09/12/24 13:11 EST Ambulatory Visit Summaryon 0 09-11-2024 Ambulatory Visit Summary Ambulatory Visit Summary SYDNIE KAILA Emily :1980 Visit Date:09/11/2024 Ambulatory Visit Instructions Your [...] you for choosing us for your care. [facility] ED Note-Physicianon 01-03-20 24 ED Note-Physician [id number]#1.00 TIFF [facility] RAD - MRI Reporton RAD - MRI Report [id number]#1.0 0TIFF [facility] RAD - MRI Report [id number]#1.0 0TIFF [facility] RAD - MRI Report [id number]#1.00 TIFF Normal [facility] RAD - MRI Report [id number]#1.00 TIFF [facility] RAD - MRI Report [id number]#1.0 0TIFF [facility] RAD - MRI Report [id number]#1.00 TIFF Normal [facility] Physician Orderon 12-22-2023 Physician Order [id number]#1.00 TIFF Normal [facility] Provider Letteron 12-21-2023 Provider Letter December 21, 2023 KAILASAMANTHA VASQUEZ [address] [place] [id number] : 1980 To Whom It May Concern, Please excuse above patient from work. Date of Illness: From: 12/19/2023 To: 12/21/2023 May Return to Work On: 12/22/2023 Sincerely, HARPREET Stewart [address] [address] [facility] Lab Reportson 12-20-2023 Lab Reports [id number]#1.00 TIFF Normal [facility] Physician Orderon 12-20-2023 Physician Order [id number]#1.00 TIFF [facility] RAD - MISCon 12-20-2023 RAD - MISC [id number]#1.00 TIFF [facility] Ambulatory Visit Summaryon 0 12-19-2023 Ambulatory Visit Summary SYDNIEJULIANNAKILA N :1980 Visit Date:12/19/2023 Ambulatory Visit Instructions Your Diagnosis Low back pain with sciatica BMI 40.0-44.9, adult Non-smoker Your Care Team Attending Physician - Brock ALY, Cristiane Bangura Primary Care Physician - DANIEL PIZARRO, MERT [...] 40.0-44.9, adult Non-smoker Pickup at [facility]/pharmacy #[id number] New meloxicam (meloxicam 15 mg Tab) 1 Tablets By Mouth Every day Low back pain with sciatica BMI 40.0-44.9, adult [id number] New methylPREDNISolone (Medrol 4 mg Tab) 1 Packets By Mouth As Directed Low back pain with sciatica BMI 40.0-44.9, adult Non-smoker Duration: 6 Days as directed on package labeling Pickup at [facility]/pharmacy #[id number] Unchanged metoprolol (Metoprolol tartrate 50 mg Tab) 1 Tablets By Mouth 2 times a day [id number] [address] [place], [place] [phone] Medications and Immunizations Administered Given ketorolac 30 [...] us for your care. 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 Had x-ray done at [facility] for spine over a year or more [...] spasm, 20 cap(s), Refill(s) 0, [facility]/pharmacy #[id number], 165.1, cm, 12/19/23 13:17:00 EDT, Height/Length Dosing, 114.6, kg, 12/19/23 13:17:00 EDT, Weight Dosing ketorolac, 30 mg = 1 mL, Injection, IntraMuscular, Once, Stop date 12/19/23 13:35:00 EDT, Routine, Start date 12/19/23 13:35:00 EDT, 12/19/23 13:35:00 EDT meloxicam, 15 mg = 1 tab(s), Oral, Daily, # 30 tab(s), Refills(s) 0, Pharmacy: [facility]/pharmacy #[id number], 165.1, cm, 12/19/23 13:17:00 EDT, Height/Length Dosing, 114.6, kg, 12/19/23 13:17:00 EDT, Weight Dosing methylPREDNISolone, = 1 packet(s), Oral, As Directed, as directed on package labeling, X 6 day(s), # 21 tab(s), Refills(s) 0, Pharmacy: [facility] #[id number], 165.1, cm, 12/19/23 13:17:00 EDT, Height/Length Dosing, 114.6, kg, 12/19/23 13:17:00 EDT, Weight Dosing 2. BMI 40.0-44.9, adult (Z68.41: Body mass index [BMI] 40.0-44.9, adult) BMI education complete Ordered: cyclobenzaprine, 15 mg, 1 cap(s), Oral, Bedtime for spasm, 20 cap(s), Refill(s) 0, [facility]/pharmacy #[id number], 165.1, cm, 12/19/23 13:17:00 EDT, Height/Length Dosing, 114.6, kg, 12/19/23 13:17:00 EDT, Weight Dosing ketorolac, 30 mg = 1 mL, Injection, IntraMuscular, Once, Stop date 12/19/23 13:35:00 EDT, Routine, Start date 12/19/23 13:35:00 EDT, 12/19/23 13:35:00 EDT meloxicam, 15 mg = 1 tab(s), Oral, Daily, # 30 tab(s), Refills(s) 0, [id number], 165.1, cm, 12/19/23 13:17:00 EDT, Height/Length Dosing, 114.6, kg, 12/19/23 13:17:00 EDT, Weight Dosing methylPREDNISolone, = 1 packet(s), Oral, As Directed, as directed on package labeling, X 6 day(s), # 21 tab(s), Refills(s) 0, [id number], 165.1, cm, 12/19/23 13:17:00 EDT, Height/Length Dosing, 114.6, kg, 12/19/23 13:17:00 EDT, Weight Dosing 3. Non-smoker (Z78.9: Other specified health status) continue not smoking Ordered: cyclobenzaprine, 15 mg, 1 cap(s), Oral, Bedtime for spasm, 20 cap(s), Refill(s) 0, [facility]/pharmacy #[id number], 165.1, cm, 12/19/23 13:17:00 EDT, Height/Length Dosing, 114.6, kg, 12/19/23 13:17:00 EDT, Weight Dosing ketorolac, 30 mg = 1 mL, Injection, IntraMuscular, Once, Stop date 12/19/23 13:35:00 EDT, Routine, Start date 12/19/23 13:35:00 EDT, 12/19/23 13:35:00 EDT meloxicam, 15 mg = 1 tab(s), Oral, Daily, # 30 tab(s), Refills(s) 0, [id number], 165.1, cm, 12/19/23 13:17:00 EDT, Height/Length Dosing, 114.6, kg, 12/19/23 13:17:00 EDT, Weight Dosing methylPREDNISolone, = 1 packet(s), Oral, As Directed, as directed on package labeling, X 6 day(s), # 21 tab(s), Refills(s) 0, [id number], 165.1, cm, 12/19/23 13:17:00 EDT, Height/Length Dosing, 114.6, kg, 12/19/23 13:17:00 EDT, Weight Dosing Follow-up No qualifying data available Problem List/Past Medical History Ongoing Anemia Anxiety (more content not included)... Normal [facility] Comment on above: Result Comment: Elec tronically Signed By: Cristiane Brasher\.br\Date and Time Signed: 12/19/23 13:59 EDT Physician Orderon 12-19-2023 Physician Order [id number]#1.00 TIFF Normal [facility] MRI BRAIN WO/W IVCONon 10-14 MRI BRAIN [...] cord. No mass or pathologic intradural enhancement. Manager Clinical Applications: [facility] Transcribe Date/Time: Oct 14 2022 8:43P Dictated by : UNIQUE ANDERSON MD This examination was interpreted and the report reviewed and electronically signed by: UNIQUE ANDRESON MD on Oct 14 2022 8:51PM EST [id number] Normal [facility] MRI CERVICAL SPINE WO/W IVCO [...] cord. No mass or pathologic intradural enhancement. Manager Clinical Applications: [facility] Transcribe Date/Time: Oct 14 2022 8:43P Dictated by : UNIQUE ANDERSON MD This examination was interpreted and the report reviewed and electronically signed by: UNIQUE ANDERSON MD on Oct 14 2022 8:51PM EST [id number] Normal [facility] CBC AUTO DIFFon 09-02-2022 BASO # 0.1 103/ul Normal 0.0-0.1 [facility] Comment on above: Performed By: #### C MP, TSH, HSTROPN #### [facility] [address] [place] [address] Dr. Christos Fallon Basophils/100 WBC (Bld) 0.5 % Normal 0.2-2.0 [facility] Comment on above: Performed By: #### C MP, TSH, HSTROPN #### [facility] [address] [place] [address] Dr. Christos Fallon EO # 0.2 103/ul Normal 0.0-0.7 [facility] Comment on above: Performed By: #### C MP, TSH, HSTROPN #### [facility] [address] [place] [address] Dr. Christos Fallon Eosinophils/100 WBC (Bld) 2.3 % Normal 0.9-7.0 [facility] Comment on above: Performed By: #### C MP, TSH, HSTROPN #### [facility] [address] [place] [address] Dr. Christos Fallon Erythrocyte distribution width (RBC) [Ratio] 13.0 % Normal 11.0-15.0 [facility] Comment on above: Performed By: #### C MP, TSH, HSTROPN #### [facility] [address] [place] [address] Dr. Christos Fallon Hematocrit (Bld) [Volume fraction] 43.0 % Normal 36.0-48.0 [facility] Comment on above: Performed By: #### C MP, TSH, HSTROPN #### [facility] [address] [place] [address] Dr. Christos Fallon Hemoglobin (Bld) [Mass/Vol] 13.9 g/dL Normal 12.0-16.0 [facility] Comment on above: Performed By: #### C MP, TSH, HSTROPN #### [facility] [address] [place] [address] Dr. Christos Fallon IG # 0.03 10e3/ul Normal 0.00-0.03 [facility] Comment on above: Performed By: #### C MP, TSH, HSTROPN #### [facility] [address] [place] [address] Dr. Christos Fallon IG % 0.3 % Normal 0.0-0.5 [facility] Comment on above: Performed By: #### C MP, TSH, HSTROPN #### [facility] [address] [place] [address] Dr. Christos Flalon LYMPH # 2.8 103/ul Normal 1.2-3.8 [facility] Comment on above: Performed By: #### C MP, TSH, HSTROPN #### [facility] [address] [place] [address] Dr. Christos Fallon Lymphocytes/100 WBC (Bld) 29.6 % Normal 20.5-60.0 [facility] Comment on above: Performed By: #### C MP, TSH, HSTROPN #### [facility] [address] [place] [address] Dr. Christos Fallon MANUAL DIFF REQ NO Normal [facility] Comment on above: Performed By: #### C MP, TSH, HSTROPN #### [facility] [address] [place] [address] Dr. Christos Fallon MCH (RBC) [Entitic mass] 34.8 pg Critically high 26.7-34.0 [facility] Comment on above: Performed By: #### C MP, TSH, HSTROPN #### [facility] [address] [place] [address] Dr. Christos Fallon MCHC (RBC) [Mass/Vol] 32.3 g/dL Normal 29.9-35.2 [facility] Comment on above: Performed By: #### C MP, TSH, HSTROPN #### [facility] [address] [place] [address] Dr. Christos Fallon MCV (RBC) [Entitic vol] 107.5 fL Critically high 81.0-99.0 [facility] Comment on above: Performed By: #### C MP, TSH, HSTROPN #### [facility] [address] [place] [address] Dr. Christos Fallon MONO # 0.7 103/ul Normal 0.3-0.8 [facility] Comment on above: Performed By: #### C MP, TSH, HSTROPN #### [facility] [address] [place] [address] Dr. Christos Fallon Monocytes/100 WBC (Bld) 7.7 % Normal 1.7-12.0 [facility] Comment on above: Performed By: #### C MP, TSH, HSTROPN #### [facility] [address] [place] [address] Dr. Christos Fallon NEUT # 5.7 103/ul Normal 1.4-6.5 [facility] Comment on above: Performed By: #### C MP, TSH, HSTROPN #### [facility] [address] [place] [address] Dr. Christos Fallon Neutrophils/100 WBC (Bld) 59.6 % Normal 43.0-75.0 [facility] Comment on above: Performed By: #### C MP, TSH, HSTROPN #### [facility] [address] [place] [address] Dr. Christos Fallon Platelet mean volume (Bld) [Entitic vol] 9.9 fL Normal 9.5-13.5 [facility] Comment on above: Performed By: #### C MP, TSH, HSTROPN #### [facility] [address] [address] [address] Christos Fallon PLT 309 103/ul Normal 150-450 [facility] Comment on above: Performed By: #### C MP, TSH, HSTROPN #### [facility] [address] [address] [address] Christos Fallon RBC 4.00 106/ul Critically low 4.20-5.40 [facility] Comment on above: Performed By: #### C MP, TSH, HSTROPN #### [facility] [address] [address] [address] Christos Fallon WBC 9.6 103/ul Normal 4.0-11.0 [facility] Comment on above: Performed By: #### C MP, TSH, HSTROPN #### [facility] [address] [place] [address] Dr. Christos Fallon D-DIMERon 09-02-2022 D-DIMER 0.28 mg/L FEU Normal <=0.59 [facility] Comment on above: Performed By: #### C MP, TSH, HSTROPN #### [facility] [address] [address] [address] Christos Fallon D-DIMER COMMENTS SEE BELOW Normal [facility] Comment on above: Result Comment: Incr eases [...] By: #### C MP, TSH, HSTROPN #### [facility] [address] [place] [address] Dr. Christos Fallon PROF 14(COMP METB)on 023 Albumin [Mass/Vol] 3.8 g/dL Normal 3.4-5.0 [facility] Comment on above: Performed By: #### C MP, TSH, HSTROPN #### [facility] [address] [address] [address] Christos Fallon Albumin/Globulin [Mass ratio] 1.2 {ratio} Normal [facility] Comment on above: Performed By: #### C MP, TSH, HSTROPN #### [facility] [address] [place] [address] Dr. Christos Fallon ALP [Catalytic activity/Vol] 85 U/L Normal 46-116 [facility] Comment on above: Performed By: #### C MP, TSH, HSTROPN #### [facility] [address] [place] [address] Dr. Christos Fallon ALT [Catalytic activity/Vol] 39 U/L Normal 14-59 [facility] Comment on above: Performed By: #### C MP, TSH, HSTROPN #### [facility] [address] [place] [address] Dr. Christos Fallon Anion gap [Moles/Vol] 16.3 mmol/L Normal [facility] Comment on above: Performed By: #### C MP, TSH, HSTROPN #### [facility] [address] [place] [address] Dr. Christos Fallon AST [Catalytic activity/Vol] 19 U/L Normal 15-37 [facility] Comment on above: Performed By: #### C MP, TSH, HSTROPN #### [facility] [address] [place] [address] Dr. Christos Fallon Bilirubin [Mass/Vol] 0.4 mg/dL Normal 0.2-1.0 [facility] Comment on above: Performed By: #### C MP, TSH, HSTROPN #### [facility] [address] [place] [address] Dr. Christos Fallon Calcium [Mass/Vol] 9.2 mg/dL Normal 8.5-10.1 [facility] Comment on above: Performed By: #### C MP, TSH, HSTROPN #### [facility] [address] [address] [address] Christos Fallon Chloride [Moles/Vol] 101 mmol/L Normal 98-107 [facility] Comment on above: Performed By: #### C MP, TSH, HSTROPN #### [facility] [address] [place] [address] Dr. Christos Fallon CO2 [Moles/Vol] 24.9 mmol/L Normal 21.0-32.0 [facility] Comment on above: Performed By: #### C MP, TSH, HSTROPN #### [facility] [address] [place] [address] Dr. Christos Fallon Creatinine [Mass/Vol] 0.83 mg/dL Normal 0.55-1.02 [facility] Comment on above: Performed By: #### C MP, TSH, HSTROPN #### [facility] [address] [place] [address] Dr. Christos Fallon EGFR-AF ARMENIAN >60 Normal >=60 [facility] Comment on above: Performed By: #### C MP, TSH, HSTROPN #### [facility] [address] [place] [address] Dr. Christos Fallon EGFR-NON AF ARMENIAN >60 Normal >=60 [facility] Comment on above: Performed By: #### C MP, TSH, HSTROPN #### [facility] [address] [place] [address] Dr. Christos Fallon Globulin (S) [Mass/Vol] 3.2 g/dL Normal [facility] Comment on above: Performed By: #### C MP, TSH, HSTROPN #### [facility] [address] [place] [address] Dr. Christos Fallon Glucose [Mass/Vol] 142 mg/dL Critically high 74-106 [facility] Comment on above: Performed By: #### C MP, TSH, HSTROPN #### [facility] [address] [place] [address] Dr. Christos Fallon Potassium [Moles/Vol] 3.2 mmol/L Critically low 3.5-5.1 [facility] Comment on above: Performed By: #### C MP, TSH, HSTROPN #### [facility] [address] [address] [address] Chrisots Fallon Protein [Mass/Vol] 7.0 g/dL Normal 6.4-8.2 [facility] Comment on above: Performed By: #### C MP, TSH, HSTROPN #### [facility] [address] [address] [address] Christos Fallon Sodium [Moles/Vol] 139 mmol/L Normal 136-145 [facility] Comment on above: Performed By: #### C MP, TSH, HSTROPN #### [facility] [address] [place] [address] Dr. Christos Fallon Urea nitrogen [Mass/Vol] 10.0 mg/dL Normal 7.0-18.0 [facility] Comment on above: Performed By: #### C MP, TSH, HSTROPN #### [facility] [address] [address] [address] Christos Fallon Urea nitrogen/Creatinine [Mass ratio] 12.0 mg/mg Normal [facility] Comment on above: Performed By: #### C MP, TSH, HSTROPN #### [facility] [address] [place] [address] Dr. Christos Fallon PROTIMEon 09-02-2022 INR Coag (PPP) [Relative time] {INR} Normal [facility] Comment on above: Performed By: #### C MP, TSH, HSTROPN #### [facility] [address] [place] [address] Dr. Christos Fallon INR GUIDELINES SEE BELOW Normal [facility] Comment on above: Result Comment: GUALBERTO RED INR: 2.0 - 3.0 CONDITIONS NOT LISTED BELOW 2.5 - 3.5 FOR PROSTHETIC HEART VALVE REPLACEMENT 2.5 - 3.5 RECURRENT THROMBOSIS Performed By: #### C MP, TSH, HSTROPN #### [facility] [address] [place] [address] Dr. Christos Fallon PT Coag (PPP) [Time] 9.7 s Normal 9.0-11.6 [facility] Comment on above: Performed By: #### C MP, TSH, HSTROPN #### [facility] [address] [address] [address] Christos Fallon PTTon 09-02-2022 aPTT Coag (Bld) [Time] 25.9 s Normal 22.3-36.2 [facility] Comment on above: Performed By: #### C MP, TSH, HSTROPN #### [facility] [address] [address] [address] Christos Fallon TROPONIN, HIGH SENSITIVITYon 09-02-2022 HSTROP <4.0 Normal 4.0-51.3 [facility] Comment on above: Result Comment: CUT- OFF POINTS HAVE BEEN ESTABLISHED BASED ON THE FOURTH UNIVERSAL DEFINITIONS OF MYOCARDIAL INFARCTION. THE UPPER REFERENCE LIMIT (URL) OF TROPONIN, DEFINED THE 99TH PERCENTILE OF cTnI DISTRIBUTION IN A REFERENCE POPULATION, HAS BEEN CONFIRMED THE DECISION THRESHOLD FOR [place] DIAGNOSIS. Performed By: #### C MP, TSH, HSTROPN #### [facility] [address] [address] [address] Christos Fallon TSHon 09-02-2022 TSH 0.813 uIU/mL Normal 0.358-3.740 [facility] Comment on above: Performed By: #### C MP, TSH, HSTROPN #### [facility] [address] [place] [address] Dr. Christos Fallon XR CHEST 1 Von [...] MON Date: 2022-09-02 15:09 Normal [facility] CNOVon 08-24-2022 CNOV Office Visit (CARDLO ) KAILA VASQUEZ ([id number]) 1980 F Date Time Provider Department 08/24/22 2:00 PM JANELL SY During your visit today, we recorded the following information about you: Pulse Blood pressure Weight Height 88/minute 112/73 112.9 kg 1.626 m Janell Sy MD 08/24/2022 2:17 PM Signed [facility] [place] SECTION OF REGIONAL CARDIOLOGY OUTPATIENT VISIT DATE [...] includes: Echocardiogram on 05/19/2020 at [facility] showed normal ejection fraction. No valvular heart [...] 4. Obesity, morbid, BMI 40.0-49.9 ([facility]) E66.01 ECG COMPLETE 5. SVT (supraventricular tachycardia) ([facility]) I47.1 6. Chronic fatigue R53.82 [...] apnea) Palpitatio (more content not included)... Normal [facility] ECG COMPLETEon 08-24-2022 ECG COMPLETE Ventricular Rate : 8 4 BPM Atrial Rate : 84 BPM P-R Interval : 166 ms QRS Duration : 92 ms Q-T Interval : 358 ms QTC Calculation(Bazett) : 423 ms Calculated P [place] : 60 degrees Calculated R [place] : 45 degrees Calculated T [place] : 45 degrees NORMAL SINUS RHYTHM INCREASED R/S RATIO IN V1, CONSIDER EARLY TRANSITION OR POSTERIOR INFARCT ABNORMAL ECG Confirmed by MEERA BYOD M.D. ([id number]) on 08/28/2022 3:03:10 PM NAME : SYDNIEKAILA PID : [id number] : 1980 Gender : Female Race : ORD : [id number] Procedure Date : Aug 24 2022 13:56:02 [...] JANELL SY Acquired by : Jose browning [facility] CNTHERAPYon 08-12-2022 CNTHERAPY OT/PT/Speech Visit (PTAMCF) KAILA VASQUEZ ([id number]) 1980 F Date Time Provider Department 08/12/22 2:45 PM [facility] Date Time Provider Department Center 08/12/2022 2:45 PM [id number], KARA [facility] [facility] Reason for Visit: Physical Therapy [503] [...] % (flush) 10 mL (BD POSIFLUSH) Normal [facility] CNTHERAPYon 08-05-2022 CNTHERAPY OT/PT/Speech Visit ([facility]) KAILA VASQUEZ ([id number]) 1980 F Date Time Provider Department 08/05/22 9:15 AM [facility] Date Time Provider Department Center 08/05/2022 9:15 AM [id number], KARA [facility] [place] [facility] Reason for Visit: PT Eval [747] [...] % (flush) 10 mL (BD POSIFLUSH) Normal [facility] Covid-19 PCR (CVDTB)on 07-09 SARS-CoV-2 (COVID-19) RNA LEROY+probe Ql (Unsp spec) Not detected Normal NOT DETECTED [facility] Comment on above: Result Comment: When [...] for this test is supported by the [place] of Health and Human Service's declaration [...] used). Performed By: #### C VDAGA #### [facility] [address] [address] [address] Christos Fallon 25(OH)D3 [facility] 2021 25-hydroxyvitamin D3 [Mass/Vol] 15.8 ng/mL Low 31.0-80.0 [facility] Comment on above: Order Comment: Speci men Type: BLOOD SPECIMENOrdering Facility: [facility] Address: [address] [place], [place] [address] Result Comment: Clas sification of 25 [place] Vitamin D status: Deficiency/Insufficiency: < or = 30 ng/ml. Sufficiency/Optimal Levels: 31-80 ng/mL Toxicity: > 100 ng/mL. Test performed by chemiluminescent immunoassay. Performed By: #### 1 989-3 ####[facility] LABIA [id number] [address] [place] ESEQUIEL BY IFA WITH REFLEXon ESEQUIEL PATTERN Nuclear fine speckled Normal Cl [facility] Comment on above: Order Comment: Speci men Type: BLOOD SPECIMENOrdering Facility: [facility] Address: [address] [place], [place] [address] Performed By: #### 2 9374-6, 10187-5, 12072-6, 26106-4, 41157-6, ANAIFR, 63269-6, 04691-3, 48636-1, 15043-8 ####[facility] LABCLIA [id number] [place] [address] [place] ESEQUIEL TITER 1:160 Normal [facility] Comment on above: Order Comment: Speci men Type: BLOOD SPECIMENOrdering Facility: [facility] Address: [address] [place], [place] [address] Performed By: #### 2 9374-6, 81546-0, 94352-4, 48407-3, 82081-3, ANAIFR, 95722-0, 07715-3, 74840-4, 30594-8 ####[facility] LABCLIA [id number] [address] [place] Nuclear Ab IF (S) [Titer] Positive Abnormal Negative [facility] Comment on above: Order Comment: Speci men Type: BLOOD SPECIMENOrdering Facility: [facility] Address: [address] [address] Result Comment: Anti -nuclear antibody test is used as an aid in diagnosis of systemic autoimmune diseases. Where positive and clinically warranted, follow-up using disease-specific testing is recommended. Low positive titers are not uncommon with advanced age, certain chronic infections, and malignancies among others. Test methodology: Indirect fluorescence immunoassay (IFA) using HEp-2 cells. Performed By: #### 2 9374-6, 07987-7, 49227-8, 89338-4, 75254-1, ANAIFR, 72351-7, 93998-7, 44439-7, 32766-9 ####[facility] LABCLIA [id number] [place] [address] [place] Basic metabolic 2000 panelon 07-07-2022 Anion gap [Moles/Vol] 13 mmol/L Normal 9-[address] [facility] Comment on above: Order Comment: Speci men Type: BLOOD SPECIMENOrdering Facility: [facility] Address: [address] [address] Performed By: #### 2 4321-2 ####[facility] LABCLIA [id number] [place] [address] [place] Calcium [Mass/Vol] 9.3 mg/dL Normal 8.5-10.2 [facility] Comment on above: Order Comment: Speci men Type: BLOOD SPECIMENOrdering Facility: [facility] Address: [address] [address] Performed By: #### 2 4321-2 ####[facility] LABCLIA [id number] [place] [address] [place] Chloride [Moles/Vol] 102 mmol/L Normal 97-105 [facility] Comment on above: Order Comment: Speci men Type: BLOOD SPECIMENOrdering Facility: [facility] Address: [address] [place] [address] Performed By: #### 2 4321-2 ####[facility] LABCLIA [id number] [place] [address] [place] CO2 [Moles/Vol] 23 mmol/L Normal 22-30 [facility] Comment on above: Order Comment: Speci men Type: BLOOD SPECIMENOrdering Facility: [facility] Address: [address] [place] [address] Performed By: #### 2 4321-2 ####[facility] LABCLIA [id number] [place] [address] [place] Creatinine [Mass/Vol] 0.72 mg/dL Normal 0.58-0.[address] [facility] Comment on above: Order Comment: Speci men Type: BLOOD SPECIMENOrdering Facility: [facility] Address: [address] [place] [address] Performed By: #### 2 4321-2 ####[facility] LABIA [id number] [address] [facility] ESTIMATED GLOMERULAR FILTRATION RATE 109 mL/min/1.73m??? Normal >=60 [facility] Comment on above: Order Comment: Speci men Type: BLOOD SPECIMENOrdering Facility: [facility] Address: [address] [place] [address] Result Comment: Dina mated Glomerular Filtration Rate [...] By: #### 2 4321-2 ####[facility] LABCLIA [id number] [address] [id number] [place] Glucose [Mass/Vol] 98 mg/dL Normal 74-99 [facility] Comment on above: Order Comment: Speci men Type: BLOOD SPECIMENOrdering Facility: [facility] Address: [address] [place] [address] Result Comment: The [place] Diabetes Association (ADA) provides guidance for cutoff [...] Standards of Medical Care in Diabetes 2016, [place] [employer]. Diabetes Care. 2016.39(Suppl 1). Performed By: #### 2 4321-2 ####[facility] LABCLIA [id number] [place] [address] [place] Potassium [Moles/Vol] 4.1 mmol/L Normal 3.7-5.[address] [facility] Comment on above: Order Comment: Speci men Type: BLOOD SPECIMENOrdering Facility: [facility] Address: [address] [place] [address] Performed By: #### 2 4321-2 ####[facility] LABCLIA [id number] [place] [address] [place] Sodium [Moles/Vol] 138 mmol/L Normal 136-144 [facility] Comment on above: Order Comment: Speci men Type: BLOOD SPECIMENOrdering Facility: [facility] Address: [address] [place] [address] Performed By: #### 2 4321-2 ####[facility] LABCLIA [id number] [place] [address] [place] Urea nitrogen [Mass/Vol] 8 mg/dL Normal 7-21 [facility] Comment on above: Order Comment: Speci men Type: BLOOD SPECIMENOrdering Facility: [facility] Address: [address] [address] Performed By: #### 2 4321-2 ####[facility] LABCLIA [id number] [place] [address] [place] Anion gap [Moles/Vol] 13 mmol/L 9 - 18 mmol/L [facility] Calcium [Mass/Vol] 9.3 mg/dL 8.5 - 10. 2 mg/dL [facility] Chloride [Moles/Vol] 102 mmol/L 97 - 10 5 mmol/L [facility] CO2 [Moles/Vol] 23 mmol/L 22 - 30 mmol/L [facility] Creatinine [Mass/Vol] 0.72 mg/dL 0.58 - 0.96 mg/dL [facility] Estimated Glomerular Filtration Rate 109 mL/min/1.73m >=60 mL/min/1.73m [facility] Glucose [Mass/Vol] 98 mg/dL 74 - 99 mg/dL [facility] Potassium [Moles/Vol] 4.1 mmol/L 3.7 - 5.1 mmol/L [facility] Sodium [Moles/Vol] 138 mmol/L 136 - 144 mmol/L [facility] Urea nitrogen [Mass/Vol] 8 mg/dL 7 - 21 mg/dL [facility] CBC W Auto Differential pane l (Bld)on 07-07-2022 Basophils (Bld) [#/Vol] 0.04 10*3/uL Normal <0.11 [facility] Comment on above: Order Comment: Speci men Type: BLOOD SPECIMENOrdering Facility: [facility] Address: [address] [id number] Performed By: #### 5 7021-8 ####[facility] LABCLIA [id number] [place] [address] [place] Basophils/100 WBC (Bld) 0.5 % Normal [facility] Comment on above: Order Comment: Speci men Type: BLOOD SPECIMENOrdering Facility: [facility] Address: [address] [address] Performed By: #### 5 7021-8 ####[facility] LABCLIA [id number] [place] [address] [place] Differential cell count method Nom (Bld) Auto Normal [facility] Comment on above: Order Comment: Speci men Type: BLOOD SPECIMENOrdering Facility: [facility] Address: [address] [address] Performed By: #### 5 7021-8 ####[facility] LABIA [id number] [place] [address] [place] Eosinophils (Bld) [#/Vol] 0.29 10*3/uL Normal <0.46 [facility] Comment on above: Order Comment: Speci men Type: BLOOD SPECIMENOrdering Facility: [facility] Address: [address] [address] Performed By: #### 5 7021-8 ####[facility] LABIA [id number] [place] [address] [place] Eosinophils/100 WBC (Bld) 3.9 % Normal [facility] Comment on above: Order Comment: Speci men Type: BLOOD SPECIMENOrdering Facility: [facility] Address: [address] [address] Performed By: #### 5 7021-8 ####[facility] LABIA [id number] [place] [address] [place] Erythrocyte distribution width (RBC) [Ratio] 12.1 % Normal 11.5-15.0 [facility] Comment on above: Order Comment: Speci men Type: BLOOD SPECIMENOrdering Facility: [facility] Address: [address] [address] Performed By: #### 5 7021-8 ####[facility] LABCLIA [id number] [place] [address] [place] Hematocrit (Bld) [Volume fraction] 43.5 % Normal 36.0-46.0 [facility] Comment on above: Order Comment: Speci men Type: BLOOD SPECIMENOrdering Facility: [facility] Address: [address] [place] [address] Performed By: #### 5 7021-8 ####[facility] LABCL[facility] [id number] [place] [address] [place] Hemoglobin (Bld) [Mass/Vol] 14.9 g/dL Normal 11.5-15.5 [facility] Comment on above: Order Comment: Speci men Type: BLOOD SPECIMENOrdering Facility: [facility] Address: [address] [place] [address] Performed By: #### 5 7021-8 ####[facility] LABIA [id number] [place] [address] [place] Immature granulocytes (Bld) [#/Vol] 0.03 10*3/uL Normal <0.10 [facility] Comment on above: Order Comment: Speci men Type: BLOOD SPECIMENOrdering Facility: [facility] Address: [address] [place] [address] Performed By: #### 5 7021-8 ####[facility] LABIA [id number] [place] [address] [place] Immature granulocytes/100 WBC (Bld) 0.4 % Normal [facility] Comment on above: Order Comment: Speci men Type: BLOOD SPECIMENOrdering Facility: [facility] Address: [address] [place] [address] Performed By: #### 5 7021-8 ####[facility] LABIA [id number] [place] [address] [place] Lymphocytes (Bld) [#/Vol] 1.71 10*3/uL Normal 1.00-4.00 [facility] Comment on above: Order Comment: Speci men Type: BLOOD SPECIMENOrdering Facility: [facility] Address: [address] [place] [address] Performed By: #### 5 7021-8 ####[facility] LABCLIA [id number] [place] [address] [place] Lymphocytes/100 WBC (Bld) 23.2 % Normal [facility] Comment on above: Order Comment: Speci men Type: BLOOD SPECIMENOrdering Facility: [facility] Address: [address] [place] [address] Performed By: #### 5 7021-8 ####[facility] LABCLIA [id number] [place] [address] [place] MCH (RBC) [Entitic mass] 34.1 pg High 26.0-34.0 [facility] Comment on above: Order Comment: Speci men Type: BLOOD SPECIMENOrdering Facility: [facility] Address: [address] [place] [address] Performed By: #### 5 7021-8 ####[facility] LABCLIA [id number] [place] [address] [place] MCHC (RBC) [Mass/Vol] 34.3 g/dL Normal 30.5-36.[address] [facility] Comment on above: Order Comment: Speci men Type: BLOOD SPECIMENOrdering Facility: [facility] Address: [address] [place] [address] Performed By: #### 5 7021-8 ####[facility] LABCLIA [id number] [place] [address] [place] MCV (RBC) [Entitic vol] 99.5 fL Normal 80.0-100.0 [facility] Comment on above: Order Comment: Speci men Type: BLOOD SPECIMENOrdering Facility: [facility] Address: [address] [address] Performed By: #### 5 7021-8 ####[facility] LABCLIA [id number] [place] [address] [place] Monocytes (Bld) [#/Vol] 0.57 10*3/uL Normal <0.87 [facility] Comment on above: Order Comment: Speci men Type: BLOOD SPECIMENOrdering Facility: [facility] Address: [address] [address] Performed By: #### 5 7021-8 ####[facility] LABCLIA [id number] [place] [address] [place] Monocytes/100 WBC (Bld) 7.7 % Normal [facility] Comment on above: Order Comment: Speci men Type: BLOOD SPECIMENOrdering Facility: [facility] Address: [address] [address] Performed By: #### 5 7021-8 ####[facility] LABCLIA [id number] [place] [address] [place] Neutrophils (Bld) [#/Vol] 4.73 10*3/uL Normal 1.45-7.50 [facility] Comment on above: Order Comment: Speci men Type: BLOOD SPECIMENOrdering Facility: [facility] Address: [address] [address] Performed By: #### 5 7021-8 ####[facility] LABCLIA [id number] [place] [address] [place] Neutrophils/100 WBC (Bld) 64.3 % Normal [facility] Comment on above: Order Comment: Speci men Type: BLOOD SPECIMENOrdering Facility: [facility] Address: [address] [address] Performed By: #### 5 7021-8 ####[facility] LABCLIA [id number] [place] [address] [place] Nucleated RBC (Bld) [#/Vol] 10*3/uL Normal <0.01 [facility] Comment on above: Order Comment: Speci men Type: BLOOD SPECIMENOrdering Facility: [facility] Address: [address] [place] [address] Performed By: #### 5 7021-8 ####[facility] LABIA [id number] [place] [address] [place] Nucleated RBC/100 WBC (Bld) [Ratio] 0.0 /100 WBC Normal [facility] Comment on above: Order Comment: Speci men Type: BLOOD SPECIMENOrdering Facility: [facility] Address: [address] [place] [address] Performed By: #### 5 7021-8 ####[facility] LABIA [id number] [place] [address] [place] Platelet mean volume (Bld) [Entitic vol] 9.6 fL Normal 9.0-12.7 [facility] Comment on above: Order Comment: Speci men Type: BLOOD SPECIMENOrdering Facility: [facility] Address: [address] [place] [address] Performed By: #### 5 7021-8 ####[facility] LABIA [id number] [place] [address] [place] Platelets (Bld) [#/Vol] 277 10*3/uL Normal 150-400 [facility] Comment on above: Order Comment: Speci men Type: BLOOD SPECIMENOrdering Facility: [facility] Address: [address] [place] [address] Performed By: #### 5 7021-8 ####[facility] LABIA [id number] [place] [address] [place] RBC (Bld) [#/Vol] 4.37 10*6/uL Normal 3.90-5.20 [facility] Comment on above: Order Comment: Speci men Type: BLOOD SPECIMENOrdering Facility: [facility] Address: [address] [place] [address] Performed By: #### 5 7021-8 ####[facility] LABCLIA [id number] [place] [address] [place] WBC (Bld) [#/Vol] 7.37 10*3/uL Normal 3.70-11.00 [facility] Comment on above: Order Comment: Speci men Type: BLOOD SPECIMENOrdering Facility: [facility] Address: [address] [place] [address] Performed By: #### 5 7021-8 ####[facility] LABCLIA [id number] [place] [address] [place] Basophils (Bld) [#/Vol] 0.04 10*3/uL <0.11 k/uL [facility] Basophils/100 WBC (Bld) 0.5 % [facility] Differential cell count method Nom (Bld) Auto [facility] Eosinophils (Bld) [#/Vol] 0.29 10*3/uL <0.46 k/uL [facility] Eosinophils/100 WBC (Bld) 3.9 % [facility] Erythrocyte distribution width (RBC) [Ratio] 12.1 % 11.5 - 15.0 % [facility] Hematocrit (Bld) [Volume fraction] 43.5 % 36.0 - 46.0 % [facility] Hemoglobin (Bld) [Mass/Vol] 14.9 g/dL 11.5 - 15.5 g/dL [facility] Immature granulocytes (Bld) [#/Vol] 0.03 10*3/uL <0.10 k/uL [facility] Immature granulocytes/100 WBC (Bld) 0.4 % [facility] Lymphocytes (Bld) [#/Vol] 1.71 10*3/uL 1.00 - 4.00 k/uL [facility] Lymphocytes/100 WBC (Bld) 23.2 % [facility] MCH (RBC) [Entitic mass] 34.1 pg High 26.0 - 34.0 pg [facility] MCHC (RBC) [Mass/Vol] 34.3 g/dL 30.5 - 36.0 g/dL [facility] MCV (RBC) [Entitic vol] 99.5 fL 80.0 - 100.0 fL [facility] Monocytes (Bld) [#/Vol] 0.57 10*3/uL <0.87 k/uL [facility] Monocytes/100 WBC (Bld) 7.7 % [facility] Neutrophils (Bld) [#/Vol] 4.73 10*3/uL 1.45 - 7.50 k/uL [facility] Neutrophils/100 WBC (Bld) 64.3 % [facility] Nucleated RBC (Bld) [#/Vol] <0.01 k/uL [facility] Nucleated RBC/100 WBC (Bld) [Ratio] 0.0 /100 WBC [facility] Platelet mean volume (Bld) [Entitic vol] 9.6 fL 9.0 - 12.7 fL [facility] Platelets (Bld) [#/Vol] 277 10*3/uL 150 - 400 k/uL [facility] RBC (Bld) [#/Vol] 4.37 10*6/uL 3.90 - 5.2 0 m/uL [facility] WBC (Bld) [#/Vol] 7.37 10*3/uL 3.70 - 11. 00 k/uL [facility] CNOVon 07-07-2022 CNOV Office Visit (GAYLAF ) KAILA VASQUEZ ([id number]) 1980 F Date Time Provider Department 07/07/22 8:00 AM GLENROY SYED During your visit today, we recorded the following information about you: Pulse Blood pressure Weight Height 82/minute 134/88 112 kg 1.626 m Glenroy Syed APRN.CNP 07/07/2022 12:28 PM Signed [facility] General Neurology New Patient Evaluation [...] over a month. 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 A couple times a month she [...] tobacco: Never (more content not included)... Normal [facility] 07-07-2022 [facility] Telephone (NEADFV) SYDNIEKAILA ([id number]) 1980 F Date Time Provider Department 07/07/22 GLENROY SYED During your visit today, we recorded the following information about you: Cinthya Salgado 07/07/2022 8:52 AM Signed Received medical records from [facility]. Uploaded to chart and forwarded for [...] Status:Closed by CINTHYA SALGADO on 07/19/22 Normal [facility] Centromere Ab IF Ql (S)on Centromere Ab Qn (S) <0.2 Normal <1.0 [facility] Comment on above: Order Comment: Speci men Type: BLOOD SPECIMENOrdering Facility: [facility] Address: [facility] [place] [address] Result Comment: Anti -centromere antibody is used as in aid in diagnosis of systemic sclerosis. Clinical correlation is required. Test Methodology: Multiplex flow immunoassay. Performed By: #### 2 9374-6, 10415-9, 78790-8, 15270-2, 56295-3, ANAIFR, 74116-7, 92398-3, 30776-2, 25803-4 ####[facility] LABCLIA [id number] [place] [address] [place] CENTROMERE AB QUAL Negative Normal Negative [facility] Comment on above: Order Comment: Speci men Type: BLOOD SPECIMENOrdering Facility: [facility] Address: [address] [place] [address] Performed By: #### 2 9374-6, 65435-0, 77786-7, 71393-1, 60983-5, ANAIFR, 07828-3, 59005-0, 27275-7, 10564-8 ####[facility] LABCLIA [id number] [place] [address] [place] Chromatin Ab Qnon 07-07-2022 CHROMATIN AB QUAL Negative Normal Negative [facility] Comment on above: Order Comment: Speci men Type: BLOOD SPECIMENOrdering Facility: [facility] Address: [address] [place] [address] Performed By: #### 2 9374-6, 94151-4, 35350-5, 63333-0, 36162-9, ANAIFR, 58341-6, 59064-1, 21441-0, 28094-4 ####[facility] LABCLIA [id number] [place] [address] [place] Chromatin Ab SerPl-aCncon Chromatin Ab Qn <0.2 Normal <1.0 [facility] Comment on above: Order Comment: Speci men Type: BLOOD SPECIMENOrdering Facility: [facility] Address: [address] [place] [address] Result Comment: Test Methodology: Multiplex flow immunoassay. Performed By: #### 2 9374-6, 13634-9, 28679-5, 30084-8, 45005-1, ANAIFR, 57979-8, 13048-7, 38127-1, 92795-9 ####[facility] LABCLIA [id number] [place] [address] [place] KAMRAN Jo1 Ab Ser-aCncon 2021 Radha-1 extractable nuclear Ab Qn (S) <0.2 Normal <1.0 [facility] Comment on above: Order Comment: Speci men Type: BLOOD SPECIMENOrdering Facility: [facility] Address: [address] [place] [address] Performed By: #### 2 9374-6, 62306-5, 67430-1, 80287-6, 65682-7, ANAIFR, 53785-8, 08658-3, 61854-3, 60632-4 ####[facility] LABIA [id number] [address] [place] KAMRAN PV DESIGN ENGINEER Ab Ser-aCncon 2021 Ribonucleoprotein extractable nuclear Ab Qn (S) <0.2 Normal <1.0 [facility] Comment on above: Order Comment: Speci men Type: BLOOD SPECIMENOrdering Facility: [facility] Address: [address] [place] [address] Performed By: #### 2 9374-6, 83855-6, 92504-8, 58562-6, 30950-1, ANAIFR, 88737-8, 77029-5, 58601-0, 64705-9 ####[facility] LABIA [id number] [place] [address] [place] KAMRAN SM IgG Ser-aCncon 2021 Osborne extractable nuclear IgG Qn (S) <0.2 Normal <1.0 [facility] Comment on above: Order Comment: Speci men Type: BLOOD SPECIMENOrdering Facility: [facility] Address: [address] [place] [address] Performed By: #### 2 9374-6, 79238-0, 41221-7, 66911-7, 19126-3, ANAIFR, 04022-7, 01797-1, 29211-8, 80668-1 ####[facility] LABCLIA [id number] [place] [address] [place] KAMRAN SS-A Ab Ser-aCncon 07-07 Sjogrens syndrome-A extractable nuclear Ab Qn (S) 0.3 AI Normal <1.0 [facility] Comment on above: Order Comment: Speci men Type: BLOOD SPECIMENOrdering Facility: [facility] Address: [address] [place] [address] Result Comment: Test Methodology: Multiplex flow immunoassay. Performed By: #### 2 9374-6, 62768-5, 91446-8, 88570-4, 95744-5, ANAIFR, 58217-5, 30161-3, 11620-8, 50473-6 ####[facility] LABIA [id number] [address] [place] KAMRAN SS-B Ab Ser-aCncon 07-07 Sjogrens syndrome-B extractable nuclear Ab Qn (S) <0.2 Normal <1.0 [facility] Comment on above: Order Comment: Speci men Type: BLOOD SPECIMENOrdering Facility: [facility] Address: [address] [place] [address] Result Comment: Anti -SSB (anti-La) antibody is used as an aid in diagnosis of a variety of systemic autoimmune diseases, especially for Sjogren's syndrome and systemic lupus erythematosus. Clinical correlation is required. Test Methodology: Multiplex flow immunoassay. Performed By: #### 2 9374-6, 72934-0, 28349-4, 72354-5, 52656-9, ANAIFR, 09461-5, 64539-8, 37920-8, 41060-8 ####[facility] LABCLIA [id number] [place] [address] [place] Radha-1 extractable nuclear Ab Qn (S)on 07-07-2022 RADHA 1 ANTIBODY QUAL Negative Normal Negative [facility] Comment on above: Order Comment: Speci men Type: BLOOD SPECIMENOrdering Facility: [facility] Address: [address] [place] [address] Result Comment: Anti -RADHA-1 antibody is used as an aid in diagnosis of polymyositis and dermatomyositis especially with pulmonary involvement. A negative result cannot rule out polymyositis or dermatomyositis. Clinical correlation is required. Test Methodology: Multiplex flow immunoassay. Performed By: #### 2 9374-6, 45083-2, 01035-0, 30280-0, 83172-4, ANAIFR, 94325-2, 08838-5, 29135-6, 59546-1 ####[facility] [id number] [place] [address] [place] Ribonucleoprotein extractabl e nuclear Ab Qn (S)on 07-07-2022 ANTI-PV DESIGN ENGINEER QUAL Negative Normal Negative [facility] Comment on above: Order Comment: Bryan hernández Type: BLOOD SPECIMENOrdering Facility: [facility] Address: [address] [place] [address] Performed By: #### 2 9374-6, 78394-3, 56449-2, 05705-9, 40664-8, ANAIFR, 20250-3, 44791-4, 69221-6, 12413-7 ####[facility] LABIA [id number] [place] [address] [place] RIBOSOMAL PV DESIGN ENGINEER QUAL Negative Normal Negative [facility] Comment on above: Order Comment: Bryan hernández Type: BLOOD SPECIMENOrdering Facility: [facility] Address: [address] [place] [address] Result Comment: Anti -Ribosomal RNA (Ribosomal P) antibody is used as an aid in diagnosis of systemic autoimmune diseases especially systemic lupus erythematosus and mixed connective tissue disease. Cross-reactivity with Anti-osborne antibody is not uncommon. Clinical correlation is required. Test Methodology: Multiplex flow immunoassay. Performed By: #### 2 9374-6, 83752-5, 06138-1, 34142-3, 17007-0, ANAIFR, 71212-9, 82330-0, 56402-1, 12561-1 ####[facility] [id number] [place] [address] [place] SCL-70 extractable nuclear I gG IA Qn (S)on 07-07-2022 SCLERODERMA AB QUAL Negative Normal Negative [facility] Comment on above: Order Comment: Speci men Type: BLOOD SPECIMENOrdering Facility: [facility] Address: [address] [place] [address] Performed By: #### 2 9374-6, 37348-1, 30809-6, 71340-6, 34895-8, ANAIFR, 01619-3, 45446-4, 91805-5, 67836-8 ####[facility] [id number] [place] [address] [place] SCLERODERMA IGG AB <0.2 Normal <1.0 [facility] Comment on above: Order Comment: Speci men Type: BLOOD SPECIMENOrdering Facility: [facility] Address: [address] [place] [address] Result Comment: Scl- 70/Scleroderma antibody test is used as an aid in diagnosis of systemic sclerosis especially the diffuse cutaneous form. A negative result cannot rule out systemic sclerosis. The final interpretation should consider clinical picture and other test results such as anti-centromere antibody. Test Methodology: Multiplex flow immunoassay. Performed By: #### 2 9374-6, 88681-7, 53907-3, 55272-9, 48929-3, ANAIFR, 48346-3, 92737-8, 90227-7, 08820-9 ####[facility] [id number] [place] [address] [place] Sjogrens syndrome-A extracta ble nuclear Ab Qn (S)on 07-07-2022 SSA ANTIBODY QUAL Negative Normal Negative [facility] Comment on above: Order Comment: Speci men Type: BLOOD SPECIMENOrdering Facility: [facility] Address: [address] [place] [address] Performed By: #### 2 9374-6, 21563-0, 36719-4, 63763-4, 45720-7, ANAIFR, 64208-1, 75838-6, 54944-1, 07735-1 ####[facility] LABCLIA [id number] [place] [address] [place] Sjogrens syndrome-B extracta ble nuclear Ab Qn (S)on 07-07-2022 SSB ANTIBODY QUAL Negative Normal Negative [facility] Comment on above: Order Comment: Speci men Type: BLOOD SPECIMENOrdering Facility: [facility] Address: [address] [address] Performed By: #### 2 9374-6, 63661-3, 69350-9, 89426-1, 82450-2, ANAIFR, 89675-3, 29384-8, 15450-7, 33298-2 ####[facility] LABIA [id number] [address] [place] Osborne extractable nuclear Ig G Qn (S)on 07-07-2022 SM ANTIBODY QUAL Negative Normal Negative [facility] Comment on above: Order Comment: Speci men Type: BLOOD SPECIMENOrdering Facility: [facility] Address: [address] [place] [address] Result Comment: Anti -Sm (Osborne) antibody is used as an aid in diagnosis of systemic lupus erythematosus and its presence is associated with renal disease. A negative result cannot rule out systemic lupus erythematosus. Clinical correlation is required. Test Methodology: Multiplex flow immunoassay. Performed By: #### 2 9374-6, 04139-0, 24328-0, 89443-1, 84787-7, ANAIFR, 67793-3, 31491-9, 84703-3, 32428-6 ####[facility] LABIA [id number] [place] [address] [place] TSH BLDon 07-07-2022 TSH Qn 0.824 m[IU]/L 0.270 - 4.200 mIU/L [facility] TSH SerPl-aCncon 07-07-2022 TSH Qn 0.824 m[IU]/L Normal 0.270-4.200 [facility] Comment on above: Order Comment: Speci men Type: BLOOD SPECIMENOrdering Facility: [facility] Address: [address] [place] [address] Result Comment: If t he patient is , TSH reference range varies by gestational period: First Trimester (weeks 9-12): 0.180-2.990 mIU/L Second Trimester: 0.110-3.980 mIU/L Third Trimester: 0.480-4.710 mIU/L Eliezer Bangura et al. A Practical Approach for the Verifications and Determination of Site- and Trimester-Specific Reference Intervals for Thyroid Function tests in . Thyroid, 2019:29:3:412-420. Rob Forrest, et al. 2017 Guidelines of the [place] [employer] for the Diagnosis and Management of Thyroid Disease during and the . Thyroid, 2017:27:3:315-389. Performed By: #### 3 -32132-04 ####[facility] LABCLIA [id number] [place] [address] [place] VITAMIN B12 BLOODon 07-07-20 22 Cobalamin (Vitamin B12) [Mass/Vol] 618 pg/mL 232 - 1,245 pg/mL [facility] Vit B12 SerPl-mCncon 022 Cobalamin (Vitamin B12) [Mass/Vol] 618 pg/mL Normal 232-1245 [facility] Comment on above: Order Comment: Speci men Type: BLOOD SPECIMENOrdering Facility: [facility] Address: [address] [place], [place] [address] Performed By: #### 3 016-3, 2132-04 ####[facility] LABCLIA [id number] [place] [address] [place] dsDNA Ab Ser IA-aCncon 07-07 DNA double strand Ab IA Qn (S) <12 Normal <30 [facility] Comment on above: Order Comment: Speci men Type: BLOOD SPECIMENOrdering Facility: [facility] Address: [address] [place] [address] Result Comment: Nega tive for ds DNA Antibodies. <30 IU/mL Negative 30-74 IU/mL Equivocal >74 IU/mL Positive Performed By: #### 2 9374-6, 83789-8, 04493-1, 50405-3, 25485-7, ANAIFR, 30028-3, 65598-9, 49011-4, 24028-4 ####[facility] LABCLIA [id number] [facility] [id number] [place] [address] [place] HLA B 27on 04-26-2022 HLA-B27 Negative Normal [facility] Comment on above: Result Comment: HLA- B*27 Negative B27 allele interpretation for all loci based on IMGT/HLA database version 3.44 This test was developed and its performance characteristics determined by [facility]. It has not been cleared or approved by the Food and Drug Administration. [facility] CLIA ID Number [id number] . This test was performed using PCR (Polymerase Chain Reaction)/SSOP (Sequence Specific Oligonucleotide Probes) technique. SBT (Sequence Based Typing) and/or SSP (Sequence Specific Primers) may be used as supplemental methods when necessary. Please contact [facility] Customer Service at if you have any questions. . Director of [facility] Laboratory Dr Abdiaziz Shook, PhD Performed By: #### C VDAGA #### [facility] [address] [place] [address] Dr. Christos Fallon 25-HYDROXY VIT D (D2+D3 [facility] ) LC/MS-MSon 04-23-2022 25-Hydroxy, Vitamin D 26 ng/mL Critically low [facility] Comment on above: Result Comment: Refe rence Range: All Ages: Target levels 30 - 100 Performed By: #### C MP, TSH, HSTROPN #### [facility] [address] [place] [address] Dr. Christos Fallon 25-Hydroxy, Vitamin D-2 <1.0 Normal [facility] Comment on above: Result Comment: This test was developed and its performance characteristics determined by [facility]. It has not been cleared or approved by the Food and Drug Administration. Performed By: #### C MP, TSH, HSTROPN #### [facility] [address] [place] [address] Dr. Christos Fallon 25-Hydroxy, Vitamin D-3 26 ng/mL Normal [facility] Comment on above: Result Comment: This test was developed and its performance characteristics determined by [facility]. It has not been cleared or approved by the Food and Drug Administration. Performed By: #### C MP, TSH, HSTROPN #### [facility] [address] [place] [address] Dr. Christos Fallon REVERSE T3on 04-20-2022 Reverse T3, Serum 11.2 ng/dL Normal 9.2-24.1 [facility] Comment on above: Result Comment: This test was developed and its performance characteristics determined by [facility]. It has not been cleared or approved by the Food and Drug Administration. Performed By: #### C VDAGA #### [facility] [address] [place] [address] Dr. Christos Fallon THYROID ANTIBODIESon 022 Thyroglobulin Antibody <1.0 Normal 0.0-0.9 [facility] Comment on above: Result Comment: Thyr oglobulin Antibody measured by [facility] Methodology Performed By: #### C VDAGA #### [facility] [address] [place] [address] Dr. Christos Fallon Thyroid Peroxidase (TPO) Ab 11 IU/mL Normal 0-34 [facility] Comment on above: Performed By: #### C VDAGA #### [facility] [address] [place] [address] Dr. Christos Fallon ANTISTREPTOLYSIN O AB (ASO)o n 04-16-2022 Antistreptolysin O Ab 21.8 IU/mL Normal 0.0-200.0 [facility] Comment on above: Performed By: #### C MP, TSH, HSTROPN #### [facility] [address] [place] [address] Dr. Christos Fallon T3, TOTAL (TRIIODOTHYRONINE) on 04-16-2022 T3, TOTAL 115 ng/dL Normal 71-180 [facility] Comment on above: Performed By: #### C MP, TSH, HSTROPN #### [facility] [address] [place] [address] Dr. Christos Fallon FREE T3on 04-14-2022 FREE T3 2.46 pg/mlL Normal 2.18-3.98 [facility] Comment on above: Performed By: #### C MP, TSH, HSTROPN #### [facility] [address] [place] [address] Dr. Christos Fallon FREE T4on 04-14-2022 Free T4 [Mass/Vol] 0.88 ng/dL Normal 0.76-1.46 [facility] Comment on above: Performed By: #### C VDAGA #### [facility] [address] [place] [address] Dr. Christos Fallon TSHon 04-14-2022 TSH 1.027 uIU/mL Normal 0.358-3.740 [facility] Comment on above: Performed By: #### C MP, TSH, HSTROPN #### [facility] [address] [place] [address] Dr. Christos Fallon CBC AUTO DIFFon 03-22-2022 BASO # 0.1 103/ul Normal 0.0-0.1 [facility] Comment on above: Performed By: #### C MP, TSH, HSTROPN #### [facility] [address] [place] [address] Dr. Christos Fallon Basophils/100 WBC (Bld) 0.7 % Normal 0.2-2.0 [facility] Comment on above: Performed By: #### C MP, TSH, HSTROPN #### [facility] [address] [place] [address] Dr. Christos Fallon EO # 0.3 103/ul Normal 0.0-0.7 [facility] Comment on above: Performed By: #### C MP, TSH, HSTROPN #### [facility] [address] [place] [address] Dr. Christos Fallon Eosinophils/100 WBC (Bld) 3.4 % Normal 0.9-7.0 [facility] Comment on above: Performed By: #### C MP, TSH, HSTROPN #### [facility] [address] [place] [address] Dr. Christos Fallon Erythrocyte distribution width (RBC) [Ratio] 12.5 % Normal 11.0-15.0 [facility] Comment on above: Performed By: #### C MP, TSH, HSTROPN #### [facility] [address] [place] [address] Dr. Christos Fallon Hematocrit (Bld) [Volume fraction] 41.3 % Normal 36.0-48.0 [facility] Comment on above: Performed By: #### C MP, TSH, HSTROPN #### [facility] [address] [place] [address] Dr. Christos Fallon Hemoglobin (Bld) [Mass/Vol] 14.2 g/dL Normal 12.0-16.0 [facility] Comment on above: Performed By: #### C MP, TSH, HSTROPN #### [facility] [address] [place] [address] Dr. Christos Fallon IG # 0.03 10e3/ul Normal 0.00-0.03 [facility] Comment on above: Performed By: #### C MP, TSH, HSTROPN #### [facility] [address] [place] [address] Dr. Christos Fallon IG % 0.4 % Normal 0.0-0.5 [facility] Comment on above: Performed By: #### C MP, TSH, HSTROPN #### [facility] [address] [place] [address] Dr. Christos Fallon LYMPH # 2.3 103/ul Normal 1.2-3.8 [facility] Comment on above: Performed By: #### C MP, TSH, HSTROPN #### [facility] [address] [place] [address] Dr. Christso Fallon Lymphocytes/100 WBC (Bld) 31.3 % Normal 20.5-60.0 [facility] Comment on above: Performed By: #### C MP, TSH, HSTROPN #### [facility] [address] [place] [address] Dr. Christos Fallon MANUAL DIFF REQ NO Normal [facility] Comment on above: Performed By: #### C MP, TSH, HSTROPN #### [facility] [address] [place] [address] Dr. Christos Fallon MCH (RBC) [Entitic mass] 34.8 pg Critically high 26.7-34.0 [facility] Comment on above: Performed By: #### C MP, TSH, HSTROPN #### [facility] [address] [place] [address] Dr. Christos Fallon MCHC (RBC) [Mass/Vol] 34.4 g/dL Normal 29.9-35.2 [facility] Comment on above: Performed By: #### C MP, TSH, HSTROPN #### [facility] [address] [place] [address] Dr. Christos Fallon MCV (RBC) [Entitic vol] 101.2 fL Critically high 81.0-99.0 [facility] Comment on above: Performed By: #### C MP, TSH, HSTROPN #### [facility] [address] [place] [address] Dr. Christos Fallon MONO # 0.9 103/ul Critically high 0.3-0.8 [facility] Comment on above: Performed By: #### C MP, TSH, HSTROPN #### [facility] [address] [place] [address] Dr. Christos Fallon Monocytes/100 WBC (Bld) 12.0 % Normal 1.7-12.0 [facility] Comment on above: Performed By: #### C MP, TSH, HSTROPN #### [facility] [address] [place] [address] Dr. Christos Fallon NEUT # 3.9 103/ul Normal 1.4-6.5 [facility] Comment on above: Performed By: #### C MP, TSH, HSTROPN #### [facility] [address] [place] [address] Dr. Christos Fallon Neutrophils/100 WBC (Bld) 52.2 % Normal 43.0-75.0 [facility] Comment on above: Performed By: #### C MP, TSH, HSTROPN #### [facility] [address] [place] [address] Dr. Christos Fallon Platelet mean volume (Bld) [Entitic vol] 9.7 fL Normal 9.5-13.5 [facility] Comment on above: Performed By: #### C MP, TSH, HSTROPN #### [facility] [address] [place] [address] Dr. Christos Fallon PLT 296 103/ul Normal 150-450 [facility] Comment on above: Performed By: #### C MP, TSH, HSTROPN #### [facility] [address] [place] [address] Dr. Christos Fallon RBC 4.08 106/ul Critically low 4.20-5.40 [facility] Comment on above: Performed By: #### C MP, TSH, HSTROPN #### [facility] [address] [place] [address] Dr. Christos Fallon WBC 7.4 103/ul Normal 4.0-11.0 [facility] Comment on above: Performed By: #### C MP, TSH, HSTROPN #### [facility] [address] [place] [address] HEAD WO CONon [...] PAL WETZEL Date: 2022-03-22 17:41 Normal [facility] ER URINE PROFILEon 2 Bilirubin Ql (U) Negative Normal NEGATIVE [facility] Comment on above: Performed By: #### C VDAGA #### [facility] [address] [place] [address] Dr. Christos Fallon Clarity (U) CLOUDY Abnormal CLEAR [facility] Comment on above: Performed By: #### C VDAGA #### [facility] [address] [place] [address] Dr. Christos Fallon Color (U) LT. YELLOW Normal YELLOW [facility] Comment on above: Performed By: #### C VDAGA #### [facility] [address] [place] [address] Dr. Christos GARCIAD A micrscopic examination will be performed if indicated. Normal [facility] Comment on above: Performed By: #### C VDAGA #### [facility] [address] [place] [address] Dr. Christos Fallon Glucose Ql (U) Negative Normal NEGATIVE [facility] Comment on above: Performed By: #### C VDAGA #### [facility] [address] [place] [address] Dr. Christos Fallon Hemoglobin Ql (U) Negative Normal NEGATIVE [facility] Comment on above: Performed By: #### C VDAGA #### [facility] [address] [place] [address] Dr. Christos Fallon Ketones Ql (U) Negative Normal NEGATIVE [facility] Comment on above: Performed By: #### C VDAGA #### [facility] [address] [place], [place] [id number] Dr. Christos Fallon LEUKOCYTES Negative Normal NEGATIVE [facility] Comment on above: Performed By: #### C VDAGA #### [facility] [address] [place] [address] Dr. Christos Fallon Nitrite Ql (U) Negative Normal NEGATIVE [facility] Comment on above: Performed By: #### C VDAGA #### [facility] [address] [place] [address] Dr. Christos Fallon pH (U) 6.0 [pH] Normal 5-9 [facility] Comment on above: Performed By: #### C VDAGA #### [facility] [address] [place] [address] Dr. Christos Fallon SPEC GRAVITY 1.010 Normal 1.005-<=1.02 5 [facility] Comment on above: Performed By: #### C VDAGA #### [facility] [address] [place] [address] Dr. Christos Fallon UA PROTEIN Negative Normal NEGATIVE/ TRACE [facility] Comment on above: Performed By: #### C VDAGA #### [facility] [address] [place] [address] Dr. Christos Fallon UR MICRO IND NOT INDICATED Normal [facility] Comment on above: Performed By: #### C VDAGA #### [facility] [address] [place] [address] Dr. Christos Fallon Urobilinogen Qn (U) 0.2 {Peyman'U}/dL Normal 0.2 - 1. 0 [facility] Comment on above: Performed By: #### C VDAGA #### [facility] [address] [place] [address] Dr. Christos Fallon PROF 14(COMP METB)on 022 Albumin [Mass/Vol] 3.6 g/dL Normal 3.4-5.0 [facility] Comment on above: Performed By: #### C MP, HSTROPN, TSH #### [facility] [address] [place] [address] Dr. Christos Fallon Albumin/Globulin [Mass ratio] 0.9 {ratio} Normal [facility] Comment on above: Performed By: #### C MP, HSTROPN, TSH #### [facility] [address] [place] [address] Dr. Christos Fallon ALP [Catalytic activity/Vol] 83 U/L Normal 46-116 [facility] Comment on above: Performed By: #### C MP, HSTROPN, TSH #### [facility] [address] [place] [address] Dr. Christos Fallon ALT [Catalytic activity/Vol] 32 U/L Normal 14-59 [facility] Comment on above: Performed By: #### C MP, HSTROPN, TSH #### [facility] [address] [place] [address] Dr. Christos Fallon Anion gap [Moles/Vol] 15.4 mmol/L Normal [facility] Comment on above: Performed By: #### C MP, HSTROPN, TSH #### [facility] [address] [place] [address] Dr. Christos Fallon AST [Catalytic activity/Vol] 15 U/L Normal 15-37 [facility] Comment on above: Performed By: #### C MP, HSTROPN, TSH #### [facility] [address] [place] [address] Dr. Christos Fallon Bilirubin [Mass/Vol] 0.3 mg/dL Normal 0.2-1.0 [facility] Comment on above: Performed By: #### C MP, HSTROPN, TSH #### [facility] [address] [place] [address] Dr. Christos Fallon Calcium [Mass/Vol] 8.9 mg/dL Normal 8.5-10.1 [facility] Comment on above: Performed By: #### C MP, HSTROPN, TSH #### [facility] [address] [place] [address] Dr. Christos Fallon Chloride [Moles/Vol] 102 mmol/L Normal 98-107 [facility] Comment on above: Performed By: #### C MP, HSTROPN, TSH #### [facility] [address] [address] [address] Christos Fallon CO2 [Moles/Vol] 22.7 mmol/L Normal 21.0-32.0 [facility] Comment on above: Performed By: #### C MP, HSTROPN, TSH #### [facility] [address] [address] [address] Christos Fallon Creatinine [Mass/Vol] 0.97 mg/dL Normal 0.55-1.02 [facility] Comment on above: Performed By: #### C MP, HSTROPN, TSH #### [facility] [address] [address] [address] Christos Fallon EGFR-AF ARMENIAN >60 Normal >=60 [facility] Comment on above: Performed By: #### C MP, HSTROPN, TSH #### [facility] [address] [address] [address] Christos Fallon EGFR-NON AF ARMENIAN >60 Normal >=60 [facility] Comment on above: Performed By: #### C MP, HSTROPN, TSH #### [facility] [address] [address] [address] Christos Fallon Globulin (S) [Mass/Vol] 3.8 g/dL Normal [facility] Comment on above: Performed By: #### C MP, HSTROPN, TSH #### [facility] [address] [address] [address] Christos Fallon Glucose [Mass/Vol] 104 mg/dL Normal 74-106 [facility] Comment on above: Performed By: #### C MP, HSTROPN, TSH #### [facility] [address] [address] [address] Christos Fallon Potassium [Moles/Vol] 4.1 mmol/L Normal 3.5-5.1 [facility] Comment on above: Performed By: #### C MP, HSTROPN, TSH #### [facility] [address] [address] [address] Christos Fallon Protein [Mass/Vol] 7.4 g/dL Normal 6.4-8.2 [facility] Comment on above: Performed By: #### C MP, HSTROPN, TSH #### [facility] [address] [place] [address] Dr. Christos Fallon Sodium [Moles/Vol] 136 mmol/L Normal 136-145 [facility] Comment on above: Performed By: #### C MP, HSTROPN, TSH #### [facility] [address] [place] [address] Dr. Christos Fallon Urea nitrogen [Mass/Vol] 17.0 mg/dL Normal 7.0-18.0 [facility] Comment on above: Performed By: #### C MP, HSTROPN, TSH #### [facility] [address] [place] [address] Dr. Christos Fallon Urea nitrogen/Creatinine [Mass ratio] 17.5 mg/mg Normal [facility] Comment on above: Performed By: #### C MP, HSTROPN, TSH #### [facility] [address] [place] [address] Dr. Christos Fallon TROPONIN, HIGH SENSITIVITYon 03-22-2022 HSTROP <4.0 Normal 4.0-51.3 [facility] Comment on above: Result Comment: CUT- OFF POINTS HAVE BEEN ESTABLISHED BASED ON THE FOURTH UNIVERSAL DEFINITIONS OF MYOCARDIAL INFARCTION. THE UPPER REFERENCE LIMIT (URL) OF TROPONIN, DEFINED THE 99TH PERCENTILE OF cTnI DISTRIBUTION IN A REFERENCE POPULATION, HAS BEEN CONFIRMED THE DECISION THRESHOLD FOR [place] DIAGNOSIS. Performed By: #### C MP, HSTROPN, TSH #### [facility] [address] [place] [address] Dr. Christos Fallon TSHon 03-22-2022 TSH 0.854 uIU/mL Normal 0.358-3.740 [facility] Comment on above: Performed By: #### C MP, HSTROPN, TSH #### [facility] [address] [place] [address] Dr. Christos Fallon ASYMPTOMATIC COVID-19 ANTIGE Non 03-03-2022 EUA Statement SEE BELOW Normal [facility] [...] sooner. Performed By: #### C VDAGA #### [facility] [address] [place] [address] Dr. Christos Fallon SARS-CoV-2 (COVID-19) RNA LEROY+probe Ql (Unsp spec) Positive Critically abnormal NEGATIVE [facility] Comment on above: Result Comment: SARS -CoV-2 antigen present; does not rule out coinfection with other pathogens. Performed By: #### C VDAGA #### [facility] [address] [place] [address] Dr. Christos Fallon Covid-19 PCR ([facility])on 02-06 SARS-CoV-2 (COVID-19) RNA LEROY+probe Ql (Unsp spec) Detected Critically abnormal NOT DETECTED [facility] Comment on above: Result Comment: This test is not yet approved or cleared by the [place] FDA. When there are no FDA-approved or cleared tests available, and other criteria are met, FDA can make tests available under an emergency access mechanism called an Emergency Use Authorization (EUA). The EUA for this test is supported by the [place] of Health and Human Service's declaration [...] By: #### C MP, TSH, HSTROPN #### [facility] [address] [place] [address] Dr. Christos Fallon CRPon 11-25-2021 CRP [Mass/Vol] mg/L Normal <=1.0 [facility] Comment on above: Performed By: #### C MP, TSH, HSTROPN #### [facility] [address] [place] [address] Dr. Christos Fallon VIT B12 AND FOLATEon 022 Cobalamin (Vitamin B12) [Mass/Vol] 329.0 pg/mL Normal 239.0-931.0 [facility] Comment on above: Performed By: #### C MP, TSH, HSTROPN #### [facility] [address] [place] [address] Dr. Christos Fallon FOLATE 8.50 ng/mL Normal >=2.76 [facility] Comment on above: Performed By: #### C MP, TSH, HSTROPN #### [facility] [address] [place] [address] Dr. Christos Fallon CBC AUTO DIFFon 11-19-2021 BASO # 0.1 103/ul Normal 0.0-0.1 [facility] Comment on above: Performed By: #### C BC #### [facility] [address] [place] [address] Dr. Christos Fallon Basophils/100 WBC (Bld) 0.8 % Normal 0.2-2.0 [facility] Comment on above: Performed By: #### C BC #### [facility] [address] [place] [address] Dr. Christos Fallon EO # 0.3 103/ul Normal 0.0-0.7 [facility] Comment on above: Performed By: #### C BC #### [facility] [address] [place] [address] Dr. Christos Fallon Eosinophils/100 WBC (Bld) 4.8 % Normal 0.9-7.0 [facility] Comment on above: Performed By: #### C BC #### [facility] [address] [place] [address] Dr. Christos Fallon Erythrocyte distribution width (RBC) [Ratio] 12.2 % Normal 11.0-15.0 [facility] Comment on above: Performed By: #### C BC #### [facility] [address] [place] [address] Dr. Christos Fallon Hematocrit (Bld) [Volume fraction] 41.9 % Normal 36.0-48.0 [facility] Comment on above: Performed By: #### C BC #### [facility] [address] [place] [address] Dr. Christos Fallon Hemoglobin (Bld) [Mass/Vol] 14.2 g/dL Normal 12.0-16.0 [facility] Comment on above: Performed By: #### C BC #### [facility] [address] [place] [address] Dr. Christos Fallon IG # 0.03 10e3/ul Normal 0.00-0.03 [facility] Comment on above: Performed By: #### C BC #### [facility] [address] [place] [address] Dr. Christos Fallon IG % 0.5 % Normal 0.0-0.5 [facility] Comment on above: Performed By: #### C BC #### [facility] [address] [place] [address] Dr. Christos Fallon LYMPH # 1.5 103/ul Normal 1.2-3.8 [facility] Comment on above: Performed By: #### C BC #### [facility] [address] [place] [address] Dr. Christos Fallon Lymphocytes/100 WBC (Bld) 24.6 % Normal 20.5-60.0 [facility] Comment on above: Performed By: #### C BC #### [facility] [address] [place] [address] Dr. Christos Fallon MANUAL DIFF REQ NO Normal [facility] Comment on above: Performed By: #### C BC #### [facility] [address] [place] [address] Dr. Christos Fallon MCH (RBC) [Entitic mass] 34.3 pg Critically high 26.7-34.0 [facility] Comment on above: Performed By: #### C BC #### [facility] [address] [place] [address] Dr. Christos Fallon MCHC (RBC) [Mass/Vol] 33.9 g/dL Normal 29.9-35.2 [facility] Comment on above: Performed By: #### C BC #### [facility] [address] [place] [address] Dr. Christos Fallon MCV (RBC) [Entitic vol] 101.2 fL Critically high 81.0-99.0 [facility] Comment on above: Performed By: #### C BC #### [facility] [address] [place] [address] Dr. Christos Fallon MONO # 0.5 103/ul Normal 0.3-0.8 [facility] Comment on above: Performed By: #### C BC #### [facility] [address] [place] [address] Dr. Christos Fallon Monocytes/100 WBC (Bld) 7.2 % Normal 1.7-12.0 [facility] Comment on above: Performed By: #### C BC #### [facility] [address] [place] [address] Dr. Christos Fallon NEUT # 3.9 103/ul Normal 1.4-6.5 [facility] Comment on above: Performed By: #### C BC #### [facility] [address] [place] [address] Dr. Christos Fallon Neutrophils/100 WBC (Bld) 62.1 % Normal 43.0-75.0 [facility] Comment on above: Performed By: #### C BC #### [facility] [address] [place] [address] Dr. Christos Fallon Platelet mean volume (Bld) [Entitic vol] 9.1 fL Critically low 9.5-13.5 [facility] Comment on above: Performed By: #### C BC #### [facility] [address] [place] [address] Dr. Christos Fallon PLT 301 103/ul Normal 150-450 [facility] Comment on above: Performed By: #### C BC #### [facility] [address] [place] [address] Dr. Christos Fallon RBC 4.14 106/ul Critically low 4.20-5.40 [facility] Comment on above: Performed By: #### C BC #### [facility] [address] [place] [address] Dr. Christos Fallon WBC 6.3 103/ul Normal 4.0-11.0 [facility] Comment on above: Performed By: #### C BC #### [facility] [address] [place] [address] Dr. Christos Fallon FREE T3on 11-19-2021 FREE T3 2.72 pg/mlL Critically low 2.77-5.27 [facility] Comment on above: Performed By: #### C MP, TSH, HSTROPN #### [facility] [address] [place] [address] Dr. Christos Fallon FREE T4on 11-19-2021 Free T4 [Mass/Vol] 1.09 ng/dL Normal 0.78-2.19 [facility] Comment on above: Performed By: #### C MP, TSH, HSTROPN #### [facility] [address] [place] [address] Dr. Christos Fallon GLYCOHEMOGLOBIN A1Con 2021 ADA RECOMMENDATION ADA THERAPEUTIC TARG ET 6.0 - 7.0 ACTION SUGGESTED > 7.0 Normal [facility] Comment on above: Performed By: #### A 1C #### [facility] [address] [place] [address] Dr. Christos Fallon Glucose [Mass/Vol] 105 mg/dL Normal [facility] Comment on above: Performed By: #### A 1C #### [facility] [address] [place] [address] Dr. Christos Fallon HbA1c (Bld) [Mass fraction] 5.3 % Normal <=6.0 [facility] Comment on above: Performed By: #### A 1C #### [facility] [address] [address] [address] Christos Fallon LIPID PROFILEon 11-19-2021 CHOL-HDL RATIO NORM SEE BELOW Normal [facility] Comment on above: Result Comment: 3.3 - 4.4 LOW RISK 4.4 - 7.1 AVERAGE RISK 7.1 - 11.0 MODERATE RISK >11.0 HIGH RISK Performed By: #### C MP, TSH, HSTROPN #### [facility] [address] [address] [address] Christos Fallon Cholesterol [Mass/Vol] 232 mg/dL Critically high <=200 [facility] Comment on above: Performed By: #### C MP, TSH, HSTROPN #### [facility] [address] [address] [address] Christos Fallon Cholesterol in HDL [Mass/Vol] 60 mg/dL Normal 40-60 [facility] Comment on above: Performed By: #### C MP, TSH, HSTROPN #### [facility] [address] [address] [address] Christso Fallon Cholesterol in LDL [Mass/Vol] 134.6 mg/dL Normal [facility] Comment on above: Performed By: #### C MP, TSH, HSTROPN #### [facility] [address] [address] [address] Christos Fallon Cholesterol.total/Cho lesterol in HDL [Mass ratio] 3.9 {ratio} Normal [facility] Comment on above: Performed By: #### C MP, TSH, HSTROPN #### [facility] [address] [address] [address] Christos Fallon HDL NORMAL > or = 60 mg/dl - LO W CARDIOVASCULAR RISK <40 mg/dl - HIGH CARDIOVASCULAR RISK Normal [facility] Comment on above: Performed By: #### C MP, TSH, HSTROPN #### [facility] [address] [address] [address] Christos Fallon LDL CALC NORMAL SEE BELOW Normal [facility] Comment on above: Result Comment: <100 mg/dl OPTIMAL 100 - 129 mg/dl NEAR OR ABOVE OPTIMAL 130 - 159 mg/dl BORDERLINE HIGH 160 - 189 mg/dl HIGH >190 mg/dl VERY HIGH Performed By: #### C MP, TSH, HSTROPN #### [facility] [address] [address] [address] Christos Fallon Triglyceride [Mass/Vol] 187 mg/dL Critically high <=150 [facility] Comment on above: Performed By: #### C MP, TSH, HSTROPN #### [facility] [address] [address] [address] Christos Fallon VLDL CALC 37.4 mg/dL Normal [facility] Comment on above: Performed By: #### C MP, TSH, HSTROPN #### [facility] [address] [address] [address] Christos Fallon PROF 14(COMP METB)on 022 Albumin [Mass/Vol] 3.8 g/dL Normal 3.4-5.0 [facility] Comment on above: Performed By: #### C MP, TSH, HSTROPN #### [facility] [address] [place] [address] Dr. Christos Fallon Albumin/Globulin [Mass ratio] 1.1 {ratio} Normal [facility] Comment on above: Performed By: #### C MP, TSH, HSTROPN #### [facility] [address] [place] [address] Dr. Christos Fallon ALP [Catalytic activity/Vol] 77 U/L Normal 46-116 [facility] Comment on above: Performed By: #### C MP, TSH, HSTROPN #### [facility] [address] [place] [address] Dr. Christos Fallon ALT [Catalytic activity/Vol] 34 U/L Normal 14-59 [facility] Comment on above: Performed By: #### C MP, TSH, HSTROPN #### [facility] [address] [address] [address] Christos Fallon Anion gap [Moles/Vol] 11.5 mmol/L Normal [facility] Comment on above: Performed By: #### C MP, TSH, HSTROPN #### [facility] [address] [place] [address] Dr. Christos Fallon AST [Catalytic activity/Vol] 21 U/L Normal 15-37 [facility] Comment on above: Performed By: #### C MP, TSH, HSTROPN #### [facility] [address] [place] [address] Dr. Christos Fallon Bilirubin [Mass/Vol] 0.7 mg/dL Normal 0.2-1.3 [facility] Comment on above: Performed By: #### C MP, TSH, HSTROPN #### [facility] [address] [place] [address] Dr. Christos Fallon Calcium [Mass/Vol] 8.8 mg/dL Normal 8.5-10.1 [facility] Comment on above: Performed By: #### C MP, TSH, HSTROPN #### [facility] [address] [place] [address] Dr. Christos Fallon Chloride [Moles/Vol] 104 mmol/L Normal 98-107 [facility] Comment on above: Performed By: #### C MP, TSH, HSTROPN #### [facility] [address] [place] [address] Dr. Christos Fallon CO2 [Moles/Vol] 28.6 mmol/L Normal 22.0-30.0 [facility] Comment on above: Performed By: #### C MP, TSH, HSTROPN #### [facility] [address] [place] [address] Dr. Christos Fallon Creatinine [Mass/Vol] 0.88 mg/dL Normal 0.52-1.04 [facility] Comment on above: Performed By: #### C MP, TSH, HSTROPN #### [facility] [address] [place] [address] Dr. Christos Fallon EGFR-AF ARMENIAN >60 Normal >=60 [facility] Comment on above: Performed By: #### C MP, TSH, HSTROPN #### [facility] [address] [place] [address] Dr. Christos Fallon EGFR-NON AF ARMENIAN >60 Normal >=60 [facility] Comment on above: Performed By: #### C MP, TSH, HSTROPN #### [facility] [address] [address] [address] Christos Fallon Globulin (S) [Mass/Vol] 3.5 g/dL Normal [facility] Comment on above: Performed By: #### C MP, TSH, HSTROPN #### [facility] [address] [address] [address] Christos Fallon Glucose [Mass/Vol] 101 mg/dL Normal 74-106 [facility] Comment on above: Performed By: #### C MP, TSH, HSTROPN #### [facility] [address] [place] [address] Dr. Christos Fallon Potassium [Moles/Vol] 4.1 mmol/L Normal 3.4-5.0 [facility] Comment on above: Performed By: #### C MP, TSH, HSTROPN #### [facility] [address] [place] [address] Dr. Christos Fallon Protein [Mass/Vol] 7.3 g/dL Normal 6.1-8.2 [facility] Comment on above: Performed By: #### C MP, TSH, HSTROPN #### [facility] [address] [place] [address] Dr. Christos Fallon Sodium [Moles/Vol] 140 mmol/L Normal 137-145 [facility] Comment on above: Performed By: #### C MP, TSH, HSTROPN #### [facility] [address] [place] [address] Dr. Christos Fallon Urea nitrogen [Mass/Vol] 11.0 mg/dL Normal 7.0-18.0 [facility] Comment on above: Performed By: #### C MP, TSH, HSTROPN #### [facility] [address] [place] [address] Dr. Christos Fallon Urea nitrogen/Creatinine [Mass ratio] 12.5 mg/mg Normal [facility] Comment on above: Performed By: #### C MP, TSH, HSTROPN #### [facility] [address] [address] [address] Christos Fallon TSHon 11-19-2021 TSH 0.774 uIU/mL Normal 0.470-4.680 [facility] Comment on above: Performed By: #### C MP, TSH, HSTROPN #### [facility] [address] [address] [address] Christos Fallon TSH RANGE SEE BELOW Normal [facility] Comment on above: Result Comment: <0.3 4 UIU/ml HYPERTHYROID 0.34-5.60 UIU/ml EUTHYROID >5.60 UIU/ml HYPOTHYROID Performed By: #### C MP, TSH, HSTROPN #### [facility] [address] [address] [address] Christos Fallon XR TSPINE 2 VIEWSon 11-20-19 XR TSPINE 2 VIEWS EXAMINATION: XR CSPI [...] TAMIE GUILLERMO Date: 2021-11-19 12:49 Normal [facility] Cardiovascular Lab Reporton 11-17-2021 Cardiovascular Lab Report [facility] [id number] Physician: Jonny Fowler M.D. Department of Service Date: 11/17/2021 Medicine Birthdate: 1980 Division of Room #: CC Cardiology Adult Cardiovascular Services [address] [address] Cardiovascular Laboratory Report PROCEDURE: Implantable loop recorder [...] subcutaneous pocket, into which was deployed a [employer] BioMonitor 3 implantable loop recorder. Via off [...] Fowler M.D. Date Trans: 11/17/2021 12:41 P/toñito [id number] cc: Mert Lama M.D. [address] [place] [phone] Normal [facility] Covid-19 PCR ([facility])on SARS-CoV-2 (COVID-19) RNA LEROY+probe Ql (Unsp spec) Not detected Normal NOT DETECTED [facility] Comment on above: Result Comment: This test is not yet approved or cleared by the [place] FDA. When there are no FDA-approved or cleared tests available, and other criteria are met, FDA can make tests available under an emergency access mechanism called an Emergency Use Authorization (EUA). The EUA for this test is supported by the [place] of Health and Human Service's (HHS's) declaration [...] By: #### C MP, TSH, HSTROPN #### [facility] [address] [place] [address] Dr. Christos Fallon Covid-19 PCR ([facility])on SARS-CoV-2 (COVID-19) RNA LEROY+probe Ql (Unsp spec) Not detected Normal NOT DETECTED [facility] Comment on above: Result Comment: When [...] for this test is supported by the [place] of Health and Human Service's declaration that [...] longer be used). Performed By: #### C [facility] #### [facility] [address] [place], [place] [address] Dr. Christos Fallon Cardiovascular Lab Reporton 06-17-2021 Cardiovascular Lab Report [facility] Patient Name: Kaila Vasquez [facility] MR #: [id number] Physician: Vishal Rogers MD Department of Service Date: 06/17/2021 Medicine Birthdate: 1980 Division of Room #: CC Cardiology Adult Cardiovascular Services [facility] [address] [facility]. [place], [place] [address] Cardiovascular Laboratory Report COMPREHENSIVE EP STUDY AND [...] follows. RFV: 5Fx2 RV/RA/CRD2 His EP Cath: [place] [facility], 8Fx2: [employer] changed to [employer] [...] same (more content not included)... Normal [facility] FEMUR LEFT 2 VWSon 1 FEMUR LEFT 2 S [facility] Department of Radiology [address] [place] [phone] ======== Patient Name: KAILA VASQUEZ : 1980 Sex: F Age: Race: White Pt. 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 Electronically signed: Gelacio Pfeiffer. Transcribed by: [email or web address], User Resident: TAVON BELCHER Electronically Signed by: GELACIO PFEIFFER @ 01/15/2021 12:03 PM I personally read this/these film(s) with this resident Normal [facility] Comment on above: Order Comment: evalu ate Operative Reporton Operative Report MR#: [id number] [facility] Pt. Name: Kaila Vasquez Room #: 0C Discharge 12/05/2020 Date: Birthdate: 1980 OPERATIVE REPORT DATE OF SURGERY: 12/05/2020 SURGEON: Pamella Brennan M.D. PREOPERATIVE DIAGNOSIS: Left distal femur osteochondroma. POSTOPERATIVE DIAGNOSIS: Left distal femur osteochondroma. PROCEDURE PERFORMED: Left distal femur osteochondroma excision. LUNCH COUNTER MANAGER: Alaina Edouard M.D. ANESTHESIA: General endotracheal. [...] i (more content not included)... Normal [facility] FEMUR LEFT 2 [facility] 1 FEMUR LEFT 2 [facility] Department of Radiology [address] [place] [id number] ======== Patient Name: KAILA VASQUEZ : 1980 Sex: F Age: Race: White Pt. Location: OUTP Patient Status: O Ordered Date: 12/05/2020 7:30:00 AM Completed Date: 12/05/2020 10:05 AM Requesting Provider: PAMELLA BRENNAN Attending Provider: PAMELLA BRENNAN Report Copy To: Signs & Symptoms: LEFT DISTAL FEMUR OSTEOCHONDROMA EXCISION History: Comments: LEFT DISTAL FEMUR OSTEOCHONDROMA EXCISION Exam: FEMUR LEFT 2 [facility] ======== FEMUR LEFT 2 [facility] 12/05/2020 10:05 AM CLINICAL INDICATIONS: LEFT DISTAL [...] purposes. Electronically signed: Ching Garcia. Transcribed by: [email or web address], User Resident: Electronically Signed by: CHING GARCIA @ 12/05/2020 11:54 AM Normal [facility] Comment on above: Order Comment: LEFT DISTAL FEMUR OSTEOCHONDROMA EXCISION POC GLUCOSE LABon 12-05-2020 Glucose [Mass/Vol] 108 mg/dL High 70-100 [facility] Comment on above: Performed By: #### 8 [id number] ####[facility] *MRSA/MSSA DNA NASALon 11-28 *MRSA/MSSA DNA NASAL Clinical Report: (D ) Specimen: NASAL SWAB Collected: 11/28/2020 13:22 Status: Final Last Updated: 2020 13:05 MSSA DNA (Final) Negative MRSA DNA (Final) Negative Normal [facility] Comment on above: Performed By: #### 3 [id number] ####[facility] APTTon 11-28-2020 aPTT Coag (Bld) [Time] 29.1 s Normal 25.0-35.0 [facility] Comment on above: Result Comment: [...] THIS PURPOSE. Performed By: #### 5 [id number], [id number] #### [facility] [address] [place] [address], [facility] BASIC METABOLIC PANELon 04-2 Calcium [Mass/Vol] 9.5 mg/dL Normal 8.6-10.3 [facility] Comment on above: Performed By: #### 0 0071 #### [facility] [address] [place] [address], [place] Chloride [Moles/Vol] 104 mmol/L Normal 98-107 [facility] Comment on above: Performed By: #### 0 0071 #### [facility] [address] [place] [address], [place] CO2 [Moles/Vol] 28 mmol/L Normal 21-31 [facility] Comment on above: Performed By: #### 0 0071 #### [facility] [address] [place] [address], [place] Creatinine [Mass/Vol] 0.90 mg/dL Normal 0.60-1.20 [facility] Comment on above: Performed By: #### 0 0071 #### [facility] [address] [place] [address], [place] GFR/1.73 sq M.predicted among blacks MDRD (S/P/Bld) [Vol rate/Area] mL/min/{1.73_m2} Normal >60 [facility] Comment on above: Performed By: #### 0 0071 #### [facility] [address] [place] [address], [place] GFR/1.73 sq M.predicted among non-blacks MDRD (S/P/Bld) [Vol rate/Area] mL/min/{1.73_m2} Normal >60 [facility] Comment on above: Performed By: #### 0 0071 #### [facility] [address] [place] [address], [place] Glucose [Mass/Vol] 132 mg/dL High 70-100 [facility] Comment on above: Performed By: #### 0 0071 #### [facility] [address] [facility] [place] [address], [facility] Potassium [Moles/Vol] 3.8 mmol/L Normal 3.5-5.1 [facility] Comment on above: Performed By: #### 0 0071 #### [facility] [address] [facility] [place] [address], [facility] Sodium [Moles/Vol] 138 mmol/L Normal 136-145 [facility] Comment on above: Performed By: #### 0 0071 #### [facility] [address] Urea nitrogen [Mass/Vol] 9 mg/dL Normal 7-25 [facility] Comment on above: Performed By: #### 0 0071 #### [facility] [address] CBC W/DIFFon 11-28-2020 ABS IMM GRANS 0.0 10*3/uL Normal 0.0-0.2 [facility] Comment on above: Performed By: #### 5 102 ####[facility] ABS NEUTROPHILS 7.2 10*3/uL Normal 1.6-7.6 [facility] Comment on above: Performed By: #### 5 0103 ####[facility] [place] [address], [facility] Basophils (Bld) [#/Vol] 0.1 10*3/uL Normal 0.0-0.2 [facility] Comment on above: Performed By: #### 5 3 ####[facility] Basophils/100 WBC (Bld) 0.6 % Normal 0.0-1.0 [facility] Comment on above: Performed By: #### 5 0103 ####[facility] [facility].[address] Eosinophils (Bld) [#/Vol] 0.3 10*3/uL Normal 0.0-0.5 [facility] Comment on above: Performed By: #### 5 0103 ####[facility] [facility].[address] Eosinophils/100 WBC (Bld) 2.6 % Normal 0.0-6.0 [facility] Comment on above: Performed By: #### 3 ####[place] [address] [address] Erythrocyte distribution width (RBC) [Ratio] 12.6 % Normal 11.5-15.0 [facility] Comment on above: Performed By: #### 3 ####[address] Hematocrit (Bld) [Volume fraction] 42.6 % Normal 36.0-45.0 [facility] Comment on above: Performed By: #### 3 ####[place] [address] [address] Hemoglobin (Bld) [Mass/Vol] 14.4 g/dL Normal 12.0-15.0 [facility] Comment on above: Performed By: #### 5 3 ####[facility] IMMATURE GRANS 0.3 % Normal 0.0-1.0 [facility] Comment on above: Performed By: #### 5 3 ####[address] Lymphocytes (Bld) [#/Vol] 2.1 10*3/uL Normal 1.2-4.0 [facility] Comment on above: Performed By: #### 0103 ####[facility] [facility] [place] [address], [facility] Lymphocytes/100 WBC (Bld) 20.2 % Normal 20.0-45.0 [facility] Comment on above: Performed By: #### 3 ####[facility] [facility] [place] [address], [facility] MCH (RBC) [Entitic mass] 33.6 pg High 27.0-33.0 [facility] Comment on above: Performed By: #### 3 ####[facility] [facility].[address] MCHC (RBC) [Mass/Vol] 33.8 g/dL Normal 32.0-35.0 [facility] Comment on above: Performed By: #### 5 3 ####[facility] [facility].[address] MCV (RBC) [Entitic vol] 99.5 fL High 82.0-98.0 [facility] Comment on above: Performed By: #### 5 3 ####[facility] [facility] [place] [address], [facility] Monocytes (Bld) [#/Vol] 0.7 10*3/uL Normal 0.1-1.0 [facility] Comment on above: Performed By: #### 5 3 ####[facility] [facility] [place] [address], [facility] MONOS 6.4 % Normal 5.0-12.0 [facility] Comment on above: Performed By: #### 5 3 ####[facility] [facility] [place] [place] [address], [facility] Neutrophils/100 WBC (Bld) 69.9 % Normal 40.0-72.0 [facility] Comment on above: Performed By: #### 3 ####[facility] Nucleated RBC/100 WBC (Bld) [Ratio] 0 % Normal 0-0 [facility] Comment on above: Performed By: #### 5 0103 ####[facility] PLAT CNT 346 10*3/uL Normal 150-400 [facility] Comment on above: Performed By: #### 5 0103 ####[facility] RBC (Bld) [#/Vol] 4.28 10*6/uL Normal 3.80-5.00 [facility] Comment on above: Performed By: #### 5 0103 ####[facility] WBC (Bld) [#/Vol] 10.24 10*3/uL Normal 4.00-10.60 [facility] Comment on above: Performed By: #### 5 0103 ####[facility] PROTHROMBIN TIMEon 1 INR Coag (PPP) [Relative time] 0.99 {INR} Normal 0.91-1.16 [facility] Comment on above: Result Comment: [...] CHEST 1995;[id number]. Performed By: #### 5 [id number], [id number] #### [facility] [address] [place] [address], [facility] PT Coag (PPP) [Time] 13.1 s Normal 12.3-14.8 [facility] Comment on above: Result Comment: ALL RESULTS MUST BE INTERPRETED WITH RESPECT TO BLOOD DRAWING ARTIFACT OR DILUTION ERROR OF ANTICOAGULANT AT THE TIME OF SAMPLING. Performed By: #### 5 [id number], [id number] #### [facility] [address] [place] [address], [facility] TYPE AND CROSSMATCHon 2020 ABO INTERPRETATION O Normal [facility] Comment on above: Performed By: #### 6 2594 #### [facility] [address] [place] [address], [facility] RH INTERPRETATION Positive Normal [facility] Comment on above: Performed By: #### 6 2594 #### [facility] [address] [place] [address], [facility] URINALYSISon 11-28-2020 Appearance (U) CLEAR Normal CLEAR [facility] Comment on above: Performed By: #### 1 0008 #### [facility] [address] [place] [address], [facility] Bilirubin Ql (U) Negative Normal NEGATIVE [facility] Comment on above: Performed By: #### 1 0008 #### [facility] [address] [place] [address], [facility] Color (U) YELLOW Normal YELLOW [facility] Comment on above: Performed By: #### 1 0008 #### [facility] [address] [place] [address], [facility] Glucose Ql (U) Negative Normal NEGATIVE [facility] Comment on above: Performed By: #### 1 0008 #### [facility] [address] [facility] [place] [address], [facility] Hemoglobin Ql (U) Negative Normal NEGATIVE [facility] Comment on above: Performed By: #### 1 0008 #### [facility] [address] [facility] [address], [facility] KETONE Negative Normal NEGATIVE [facility] Comment on above: Performed By: #### 1 0008 #### [facility] [address] [facility] [place] [address], [facility] LEUK JORDAN Negative Normal NEGATIVE [facility] Comment on above: Performed By: #### 1 0008 #### [facility] [address] [facility] [place] [address], [facility] MICRO NOT DONE Normal [facility] Comment on above: Result Comment: Micr oscopics not performed on urines with negative chemical reactions unless requested in original order Performed By: #### 1 0008 #### [facility] [address] [facility] [place] [address], [facility] Nitrite Ql (U) Negative Normal NEGATIVE [facility] Comment on above: Performed By: #### 1 0008 #### [facility] [address] [facility] [place] [address], [facility] pH (U) 6.0 [pH] Normal 5.0-8.0 [facility] Comment on above: Performed By: #### 1 0008 #### [facility] [address] [facility] [place] [address], [facility] Protein Ql (U) Negative Normal NEGATIVE [facility] Comment on above: Performed By: #### 1 0008 #### [facility] [address] [facility] [place] [address], [facility] SPEC GRAV 1.018 Normal 1.015-1.020 [facility] Comment on above: Performed By: #### 1 0008 #### [facility] [address] [place] [address], [facility] Vital Signs Date Time Vital Sign Value Performing Clinician Faci vitalyy 08-24-2022 13:44-0500 Body height 162.6 cm Janell Sy MD Work Phone: [facility] 08-24-2022 13:44-0500 Body weight 112.95 kg Janell Sy MD Work Phone: [facility] 08-24-2022 13:44-0500 Diastolic blood pressure 73 mm[Hg] Janell Sy MD Work Phone: [facility] 08-24-2022 13:44-0500 Heart rate 88 /min Janell Sy MD Work Phone: [facility] 08-24-2022 13:44-0500 SaO2% (BldA) [Mass fraction] 98 % Janell Sy MD Work Phone: [facility] 08-24-2022 13:44-0500 Systolic blood pressure 112 mm[Hg] Janell Sy MD Work Phone: [facility] 08-05-2022 10:00-0500 Diastolic blood pressure 88 mm[Hg] Carmen Johnson PT Work Phone: [facility] 08-05-2022 10:00-0500 Heart rate 78 /min Carmen Seese PT Work Phone: [facility] 08-05-2022 10:00-0500 Systolic blood pressure 134 mm[Hg] Carmen Seese PT Work Phone: [facility] 07-07-2022 08:12-0500 Body height 162.6 cm Glenroy Syed FOOD SAFETY MANAGER.RN CLINICAL RESOURCE Work Phone: [facility] 07-07-2022 08:12-0500 Body weight 112.04 kg Glenroy Syed FOOD SAFETY MANAGER.RN CLINICAL RESOURCE Work Phone: [facility] 07-07-2022 08:12-0500 Diastolic blood pressure 88 mm[Hg] Glenroy Syed FOOD SAFETY MANAGER.RN CLINICAL RESOURCE Work Phone: [facility] 07-07-2022 08:12-0500 Heart rate 82 /min Glenroy Syed FOOD SAFETY MANAGER.RN CLINICAL RESOURCE Work Phone: [facility] 07-07-2022 08:12-0500 SaO2% (BldA) [Mass fraction] 98 % Glenroy Syed FOOD SAFETY MANAGER.RN CLINICAL RESOURCE Work Phone: [facility] 07-07-2022 08:12-0500 Systolic blood pressure 134 mm[Hg] Glenroy Syed FOOD SAFETY MANAGER.RN CLINICAL RESOURCE Work Phone: [facility] 12-09-2021 13:59-0400 Blood Pressure Location Pamella NILL [facility] 12-09-2021 13:59-0400 Diastolic blood pressure 78 mm[Hg] Pamella NILL [facility] [place] 12-09-2021 13:59-0400 Heart rate 68 /min Pamella NILL [facility] 12-09-2021 13:59-0400 Respiratory rate 16 /min Pamella NILL [facility] 12-09-2021 13:59-0400 Systolic blood pressure 118 mm[Hg] Pamella NILL [facility] Encounters Encounter Date Encounter Type Care Provider Facility Start: 03-28-2025 ambulatory [facility] Start: 03-11-2025 End: 03-11-2025 ambulatory Ari Sellers MD Facility:[facility] Start: 02-28-2025 ambulatory [facility] Start: 02-25-2025 End: 02-25-2025 ambulatory Ari Sellers MD Facility:[facility] Start: 02-20-2025 ambulatory [facility] Start: 01-15-2025 End: 01-15-2025 ambulatory [facility] Start: 01-14-2025 End: 01-14-2025 ambulatory Ari Sellers MD Facility:[facility] Start: 01-03-2025 ambulatory [facility] Start: 12-24-2024 End: 12-24-2024 ambulatory Ari Sellers MD Facility:[facility] Start: 11-26-2024 End: 11-26-2024 ambulatory Cristiane L Brock Facility:[facility] [place] Start: 11-15-2024 End: 11-15-2024 ambulatory Cristiane L Brock Facility:[facility] Start: 10-30-2024 ambulatory [facility] Start: 10-02-2024 End: 10-08-2024 Telephone encounter [facility] Comment on above: neuro referral Start: 09-18-2024 ambulatory [facility] Start: 09-11-2024 End: 09-11-2024 ambulatory Cristiane L Brock Facility:[facility] Start: 07-16-2024 ambulatory [facility] Start: 06-29-2024 ambulatory [facility] Start: 06-15-2024 ambulatory [facility] Start: 06-04-2024 End: 06-04-2024 ambulatory Ari Sellers MD Facility: [facility] Start: 05-31-2024 ambulatory [facility] Start: 05-09-2024 ambulatory [facility] Start: 04-27-2024 ambulatory [facility] Start: 12-19-2023 End: 12-19-2023 ambulatory Cristiane Gutiérrez Facility:[facility] Start: 10-25-2023 End: 10-25-2023 ambulatory IRMA CORTES Not Available Start: 08-25-2023 End: 08-25-2023 ambulatory IR[facility] CORTES Not Available Start: 10-15-2022 Orders Only Glenroy Syed FOOD SAFETY MANAGER.RN CLINICAL RESOURCE Work Phone: Neurology Comment on above: 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 (Primary Dx) Start: 10-14-2022 End: 10-14-2022 ambulatory GLENROY SYED Facility:[facility] Start: 09-09-2022 ambulatory Mauri Ross RT(R) Ra soto Comment on above: Radiology MRI Start: 09-09-2022 Patient encounter procedure Mauri Ross RT(R) RONALDO EASON Start: 09-02-2022 End: 09-02-2022 ambulatory ELENA GUAN Facility: Start: 08-24-2022 End: 08-24-2022 ambulatory GLENROY SYED Facility:[facility] Start: 08-24-2022 End: 08-24-2022 Patient encounter procedure Janell Sy MD Work Phone: Cardiology Comment on above: KANG (obstructive sle ep apnea) (Primary Dx); Dizziness; Palpitations; Obesity, morbid, BMI 40.0-49.9 (HCC); SVT (supraventricular tachycardia) ([facility]); Chronic fatigue; Vitamin D deficiency Start: 08-20-2022 Orders Only Len VINCENTRN CLINICAL RESOURCE Work Phone: Neurology Comment on above: Ocular migraine (Dinora andres Dx) Start: 08-19-2022 End: 08-19-2022 ambulatory [facility] Neurology Comment on above: Neuro Ophthalmologis t Start: 08-16-2022 ambulatory [facility] Neurology Comment on above: MRI Start: 08-12-2022 End: 08-12-2022 ambulatory GLENROY SYED Facility:[facility] Start: 08-12-2022 End: 08-12-2022 ambulatory Carmen Johnson PT Work Phone: Physical Therapy Comment on above: Dizziness (Primary D x); Cervicalgia; Headaches Start: 08-05-2022 End: 08-05-2022 ambulatory GLENROY YAHAIRA Facility:[facility] Start: 08-05-2022 End: 08-05-2022 ambulatory Carmen Johnson PT Work Phone: Physical Therapy Comment on above: Dizziness (Primary D x); Cervicalgia; Headaches Start: 07-29-2022 End: 07-29-2022 ambulatory WM RODRIGUEZ Facility:[facility] Start: 07-21-[address] MERT LAMA Facilit y:[facility] Start: 07-07-2022 Telephone encounter Glenroy Debbie rodriguez FOOD SAFETY MANAGER.RN CLINICAL RESOURCE Work Phone: Neurology Comment on above: Received Outside Med ical Records Start: 07-07-2022 End: 07-07-2022 ambulatory GLENROY SYED Facility:[facility] Start: 07-07-2022 End: 07-07-2022 Patient encounter procedure Glenroy Syed FOOD SAFETY MANAGER.RN CLINICAL RESOURCE Work Phone: Neurology Comment on above: Dizziness [...] Patient encounter procedure Pamella SANABRIA General Surgery [facility] [place] Start: 11-25-2021 End: 11-26-[address] MERT LAMA Facility:[facility] Start: 11-23-2021 Encounter for genera l adult medical examination without abnormal findings DR MERT LAMA [facility] Start: 11-19-2021 End: 11-20-[address] MERT LAMA Facility:[facility] Start: 11-19-2021 End: 11-20-2021 Encounter for general adult medical examination without abnormal findings DR MERT LAMA Facility:[facility] Start: 11-17-2021 End: 11-18-2021 ambulatory MERT LAMA Facility:[facility] Start: 11-14-2021 End: 11-15-2021 ambulatory ANU CABAN Facility:[facility] Start: 10-08-2021 End: 10-08-2021 ambulatory WM RODRIGUEZ Facility:[facility] Start: 06-17-2021 End: 06-18-2021 ambulatory MERT LAMA Facility:[facility] Start: 04-16-2021 End: 05-23-2021 ambulatory MERT LAMA Facility:[facility] Start: 12-05-2020 End: 12-06-2020 ambulatory MERT LAMA Facility:[facility] Procedures Date Procedure Procedure Detail Performing Clinician Start: 08-24-2022 Ecg routine ecg w/le ast 12 lds i&r only [facility] Provider Start: 12-05-2020 ANESTH KNEE AREA SURGERY MERT LAMA Start: 12-05-2020 REMOVE FEMUR LESION CARLOS HAEL P MIKA Start: 11-28-2020 Antibody screen MERT CHOUDHARY Ar Comment on above: Performed By: #### 6 [id number] #### [address] Start: 11-04-2020 Cystourethroscopy wi th dilation of urethral stricture Pamella SANABRIA Abdominal hysterectomy Wale jennifer SANABRIA Bilateral complete salpingectomy Pamella SANABRIA Cardiac radiofrequen cy ablation using ultrasound guidance Pamella SANABRIA Cholecystectomy Pamella SANABRIA Excision of osteochondroma Nestor ZIMMERMANWillem History of ankle surgery Carlos ZIMMERMANWillem Plan of Treatment Date Care Activity Detail Author Start: 04-08-2024 COVID-19 Vaccine ( season) COVID-19 Vaccine () [facility] Start: 04-08-2024 Influenza vaccination Influenza Vacc ine [facility] Start: 08-08-2022 DEPRESSION ASSESSMENT DEPRESSION ASS ESSMENT [facility] Start: 07-07-2022 End: 09-06-2022 25-hydroxyvitamin D3 [Mass/volume] in Serum or Plasma [facility] Work Phone: Comment on above: Expected: 07/07/2022 , Expires: 09/06/2022 Start: 07-07-2022 End: 09-06-2022 ESEQUIEL BY IFA WITH REFLEX [facility] Work Phone: Comment on above: Expected: 07/07/2022 , Expires: 09/06/2022 Start: 04-08-2022 Influenza vaccination INFLUENZA (#1) [facility] Start: 08-08-2021 DEPRESSION ASSESSMENT DEPRESSION ASS ESSMENT [facility] Start: 11-05-2020 COVID-19 VACCINE (3 - Booster for Giancarlo series) COVID-19 VACCINE (3 - Booster for Giancarlo series) [facility] Start: 2012 HPV TESTING HPV TESTING [facility] Start: 12-29-2003 DTaP,Tdap and Td Vac cines (6 - Tdap) DTaP,Tdap and Td Vaccines (6 - Tdap) [facility] Start: 11-30-2003 PAP TESTING PAP TESTING [facility] Start: 11-30-2003 Screening for malign ant neoplasm of cervix Pap Smear [facility] Start: 2001 Urine microalbumin profile DTA P,TDAP,TD (1 - Tdap) [facility] Start: 2000 Adult BMI Screening Adult BMI Screen ing [facility] Start: 2000 HEPATITIS C SCREENING HEPATITIS C SC REENING [facility] Start: 2000 HIV SCREENING HIV SCREENING [facility] Start: 1994 Depression Screening Depression Scre ening [facility] Start: 1994 Tobacco Screening Tobacco Screening [facility] Start: 1982 HEPATITIS B (1 of 3 - 3-dose series) HEPATITIS B (1 of 3 - 3-dose series) [facility] End: 08-24-2023 ECG COMPLETE ECG [...] 1 Occurrences starti ng 08/16/2022 until 09/15/2023 [facility] Immunizations Immunization Date Immunization Notes Care Provider Tayo cullen 09-10-2020 SARS-CoV-2 (COVID-19 ) Ad26 vaccine, recombinant Pamella SANABRIA [facility] 08-12-2020 SARS-CoV-2 (COVID-19 ) Ad26 vaccine, recombinant Pamella SANABRIA [facility] Payers Date Payer Category Payer Unknown [id number] 2021 Unknown [id number] 1982 Unknown [id number] 2.16.8 40.1.395150.3.579.2.647 1982 Unknown [id number] 2.16.8 40.1.909810.3.579.2.647 1982 Unknown [id number] 2.16.8 40.1.871921.3.579.2.647 1982 Unknown [id number] 2.16.8 40.1.238231.3.579.2.647 1982 Unknown [id number] 2.16.84 0.1.839155.3.579.2.593 1982 Unknown [id number] 2.16.84 0.1.293835.3.579.2.593 1982 Unknown [id number] 2.16.84 0.1.259541.3.579.2.593 1982 Unknown [id number] 2.16.84 0.1.630024.3.579.2.593 1982 Unknown [id number] 2.16.84 0.1.777283.3.579.2.593 1982 Unknown [id number] 2.16.84 0.1.140128.3.579.2.593 1982 Unknown [id number] 2.16.84 0.1.456294.3.579.2.593 1982 Unknown [id number] 2.16.84 0.1.506397.3.579.2.593 1982 Unknown [id number] 2.16.84 0.1.758522.3.579.2.593 1982 Unknown [id number] 2.16.84 0.1.300531.3.579.2.593 1982 Unknown [id number] 2.16.84 0.1.567743.3.579.2.593 1982 Unknown [id number] 2.16.84 0.1.262661.3.579.2.593 1982 Unknown [id number] 2.16.84 0.1.023140.3.579.2.593 1982 Unknown [id number] 2.16.84 0.1.670655.3.579.2.593 1982 Unknown [id number] 2.16.84 0.1.743031.3.579.2.593 1982 Unknown [id number] 2.16.84 0.1.748030.3.579.2.1259 1982 Unknown [id number] 2.16.84 0.1.271046.3.579.2.1259 1982 Unknown [id number] 2.16.8 40.1.476058.3.579.2.727 1982 Unknown [id number] 2.16.8 40.1.531967.3.579.2.727 1982 Unknown [id number] 2.16.8 40.1.341960.3.579.2.727 1982 Unknown [id number] 2.16.8 40.1.685637.3.579.2.727 1982 Unknown [id number] 2.16. 840.1.395054.3.579.2. 1982 Unknown [id number] 2.16. 840.1.073267.3.579.2.196 1982 Unknown [id number] 2.16. 840.1.560283.3.579.2.196 1982 Unknown [id number] 2.16. 840.1.513300.3.579.2.196 1982 Unknown [id number] 2.16. 840.1.735711.3.579.2.196 1959 Unknown [id number] Social History Date Type Detail Facility Start: 05-01-2021 End: 12-09-2021 Tobacco smoking status Never smoked tobacco (finding) [facility] Tobacco smoking status Never [facility] Start: 01-17-2019 End: 05-01-2021 Sex Assigned At Female [facility] Start: 05-01-2021 End: 07-07-2022 Tobacco use and exposure Smokeless tobacco non-user [facility] Start: 1982 Sex Assigned At Not on file C [facility] Start: 06-27-2022 End: 07-07-2022 Exposure to SARS-CoV-2 (event) Not sure [facility] Start: 05-01-2021 End: 08-24-2022 Alcohol intake Current drinker of alcohol (finding) [facility] Start: 08-24-2022 Alcohol Comment occasionally 1 -2 times a months 2-3 drinks [facility] Start: 01-17-2019 End: 05-01-2021 History of Social function [facility] Start: 05-01-2021 Alcohol Comment social [facility] Start: 03-13-2015 Sex Female (finding) [facility] Clinical Notes 12-30-2021 to 01-15-2025 Telephone Encounter [...] she's been having lots of PAC's . [place] lots of them on 01/11/2025 around 11:52am. Says these episodes scares her and they've been happening more frequently. Denies chest pain. There are no events noted on the [employer] website corresponding to that thedate. Loop monitor [...] sleep recently and that was recorded on [employer] quality assurance monitor body reveals evidence of sinus tachycardia 120 bpm. Pt had COVID recently and since then has been experiencing palpitations. She notes these when she is changing positions and also when she bends down. 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 [facility] 10-02-2024 Miscellaneous Notes Received new patient referral. [...] message for patient documented in this encounter [employer] 10-02-2024 Telephone encounter Note Received new patient [...] EVER BEEN SEEN BY A NEUROLOGIST BEFORE? [employer] 10-02-2024 Telephone encounter Note 1st attempt- left voicemail Received Referral from: JOSE ANTONIO Mcclendon Dx: Facial tingling M62.838 (ICD-10-CM) - Muscle spasm Referred to: [facility] [employer] 10-02-2024 Telephone encounter Note 2nd attempt: Left message for patient [employer] [facility] 10-14-2022 Note HNO ID: [id number] Author: RT Mary(R) Service: ? Author Type: [...] RT Mary(R) October 14, 2022 4:55 PM [facility] 10-14-2022 Note HNO ID: [id number] Author: Papa Rea RN Service: Radiology Author [...] DATE: October 14, 2022 TIME: 3:20 PM [facility] 09-09-2022 Note HNO ID: [id number] Author: RT [place](Matteo) Service: ? Author Type: [...] 09, 2022 TIME: 2:11 PM PAGER/CONTACT #: [facility] 09-09-2022 History of Present illness [...] PM PAGER/CONTACT #: documented in this encounter [facility] 08-24-2022 Note HNO ID: [id number] Author: Janell Sy MD Service: ? Author Type: Physician Type: Progress Notes Filed: 08/24/2022 2:17 PM Note Text: [facility] [place] SECTION OF REGIONAL CARDIOLOGY OUTPATIENT VISIT DATE [...] includes: Echocardiogram on 05/19/2020 at [facility] showed normal ejection fraction. No valvular heart [...] 4. Obesity, morbid, BMI 40.0-49.9 ([facility]) E66.01 ECG COMPLETE 5. SVT (supraventricular tachycardia) ([facility]) I47.1 6. Chronic fatigue R53.82 [...] ventricular contraction) SVT (supraventricular tachycardia) ([facility]) Vitamin D deficiency No past surgical history on file. Social History Tobacco Use Smoking status: Never Smokeless tobacco: Never Vaping U (more content not included)... [facility] 08-24-2022 History of Present illness Narrative Images from the original note were not included. [facility] [place] SECTION OF REGIONAL CARDIOLOGY OUTPATIENT VISIT DATE [...] includes: Echocardiogram on 05/19/2020 at [facility] showed normal ejection fraction. No valvular heart [...] 4. Obesity, morbid, BMI 40.0-49.9 ([facility]) E66.01 ECG COMPLETE 5. SVT (supraventricular tachycardia) ([facility]) I47.1 6. Chronic fatigue R53.82 [...] ventricular contraction) SVT (supraventricular tachycardia) ([facility]) Vitamin D deficiency No past [...] twice daily.^Disp: ^Rfl: documented in this encounter [facility] 08-19-2022 Note HNO ID: [id number] Author: Mauri Chun OD Service: ? Author Type: ASSISTANT DIRECTOR OF PUBLIC WORKS Type: Progress Notes Filed: 08/19/2022 10:22 AM Note Text: Ocular health is unremarkable with no abnormalities. Normal ON appearance Ophthalmic migraines Glasses Rx given with slight prism [facility] 08-16-2022 Miscellaneous Notes signed We can add it to fully evaluate her symptoms. -LP documented in this encounter [facility] 08-12-2022 Note HNO ID: [id number] Author: Carmen Johnson, BRENDA Service: ? Author Type: Physical Therapist Type: [...] Time Minutes (timed/untimed): 60 Carmen Johnson, PT [facility] 08-12-2022 History of Present illness [...] Carmen Johnson PT documented in this encounter [facility] 08-05-2022 Note HNO ID: [id number] Author: Carmen Johnson PT Service: ? Author [...] Planned: 8 Planned Treatment Interventions: Therapeutic exercise (01937);Neuromuscular re-education (70258);Manual therapy (08098);Therapeutic activities (84400);Self-nursing home management (74704);Patient/Family/Caregiver Education;Gait Training (36128);Canalith Repositioning Maneuvers (29118) PLAN FOR NEXT VISIT: Detailed neck exam [...] Premature atrial contra (more content not included)... [facility] 08-05-2022 History of Present illness [...] Planned: 8 Planned Treatment Interventions: Therapeutic exercise (07280);Neuromuscular re-education (80323);Manual therapy (89261);Therapeutic activities (57517);Self-nursing home management (61641);Patient/Family/Caregiver Education;Gait Training (55735);Canalith Repositioning Maneuvers (89374) PLAN FOR NEXT VISIT: Detailed neck exam [...] Positional Testing Right Juan-Hallpike: No nystagmus;Asymptomatic Left [place]-Hallpike: No nystagmus;Asymptomatic Right Nylen Barany: No nystagmus;Asymptomatic [...] Review/Additional Education TREATMENT: PT Treatment Interventions: Self-Senior Living Management;Therapeutic Exercise Evaluation Therapeutic Exercise: 1: c/s retractions x 10, cues for technique Skilled Intervention: Patient was educated in proper exercise technique and purpose for exercises. Patient education as noted. Self-Senior Living Management: 1: Educated regarding potential multifactorial cause [...] Carmen Johnson PT documented in this encounter [facility] 07-07-2022 Note HNO ID: [id number] Author: Glenroy Syed APRN.RN CLINICAL RESOURCE Service: ? Author Type: Nurse Practitioner Type: Progress Notes Filed: 07/07/2022 12:28 PM Note Text: [facility] General Neurology New Patient Evaluation CHIEF COMPLAINT: Questionable Autonomic dysfunction Kaila Vasquez is a 41 year old female with history of KANG, palpitations, chronic fatigue, PVCs, SVT, anemia, migraines, vitamin D deficiency, fibromyalgia, plantar fascitis and chronic neck/back pain. She is unaccompanied. Consult was requested by Dr. Metr Lama for an opinion regarding concerns for [...] over a month. 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 A couple times a month she [...] for 1 dose.N (more content not included)... [facility] 07-07-2022 Miscellaneous Notes Noted. Provider notified. Received medical records from [facility]. Uploaded to chart and forwarded for review. documented in this encounter [facility] 07-07-2022 Instructions Glenroy Syed APRN.[facility] - 07/07/2022 9:06 AM EST Plan: Baseline labs MRI Brain for multiple symptoms ECHO for palpitations and arrhythmias Aspirin 81mg daily in the setting of known arrhythmias Consult to [place] for dizziness Consult to Cardiology for second opinion Consult to ophthalmology Follow up after testing documented in this encounter [facility] 07-07-2022 History of Present illness Narrative Images from the original note were not included. [facility] General Neurology New Patient Evaluation [...] over a month. 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 A couple times a month she [...] Finger Abduction (U) 5 Finger Abduction 5 Zyglo Inspector 5 Zyglo Inspector 5 Right Lower Extremity: (of 5) Left [...] over a month. 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 A couple times a month she [...] [place] reccommended. Patient wanting second opinion from biodiesel operations manager [facility]. Unlikely autonomic dysfunction with unremarkable tilt and orthostatic vitals in office unconvincing (did not take BB today). Additionally, with visual changes, recommended seeing neuro chemist. Will obtain additional labs as well. Follow [...] which included preparing to see the patient, [id number] patient care, completing clinical documentation, obtaining and/or reviewing separately obtained history, performing a medically appropriate examination, counseling and educating the patient/family/caregiver, ordering medications, tests, or procedures, and care coordination (not separately reported). Glenroy Syed APRN.CNP [facility] General Neurology [address] [place] [address] Appointment: [phone] In regards to blood work, testing, and [...] your PCP/referring physician documented in this encounter [facility] 03-16-2022 Note EXAM: CHEST 2 VIEWS HISTORY: [...] authenticated by: BETTY MORALES Date: 2022-03-16 18:13 [facility] 12-30-2021 Note [facility] [place], [place] NAME: KAILA VASQUEZ DATE OF : MEDICAL REC#: [id number] DISPOSAL PLANT OPERATOR: [id number] [facility], TRANSADMIT DATE: 12/30/2021 09:02:00 WAXING MACHINE OPERATOR DATE: 12/30/2021 21:00 DICTATING PHYSICIAN: PAMELLA [...] DR PAMELLA SANABRIA . 01/06/2022 08:31:00 [facility] Evaluation + Plan note No data available for this section [facility] Evaluation note Diagnosis Dizziness- Primary Dizziness and giddiness Migraine aura without headache Migraine with aura, without mention of intractable migraine without mention of status migrainosus Palpitations Chronic fatigue Other malaise and fatigue Vision changes Unspecified visual disturbance Disturbance of skin sensation [facility] Diagnosis Dizziness- Primary Dizziness and giddiness Cervicalgia Headaches [facility] Diagnosis Dizziness- Primary Dizziness and giddiness Cervicalgia Headaches [facility] Diagnosis Cervicalgia- Primary Dizziness Dizziness and giddiness Vision changes Unspecified visual disturbance Disturbance of skin sensation [facility] Diagnosis Ocular migraine- Primary Other forms of migraine, without mention of intractable migraine without mention of status migrainosus [facility] Diagnosis KANG (obstructive sleep apnea)- Primary Obstructive sleep apnea (adult) (pediatric) Dizziness Dizziness and giddiness Palpitations Obesity, morbid, BMI 40.0-49.9 (HCC) Morbid obesity SVT (supraventricular tachycardia) ([facility]) Other specified cardiac dysrhythmias Chronic fatigue Other malaise and fatigue Vitamin D deficiency Unspecified vitamin D deficiency [facility] Diagnosis Degeneration of intervertebral disc of cervical region with osteophyte of cervical vertebra- Primary documented in this encounter [facility] Discharge instructions No data available for this section [facility] InstructionsNot on filedocumented in this encounter [facility] Outpatient Procedure (Routine) - Authorized Specialty Diagnoses / Procedures Referred By Contac t Referred To Contact [facility] [place] Diagnoses Dizziness Palpitations Obesity, morbid, BMI 40.0-49.9 ([facility]) Procedures ECG COMPLETE ECG ROUTINE ECG W/LEAST 12 LDS W/I&R Janell Sy MD [address] [place] [address] [facility] [place] [address] [place] [address] Referral ID Status Reason Start Date Expiration Date Visits Requested Visits Authorized [id number] Authorized Auto-Generat ed Referral 08/24/2022 08/24/2023 1 1 [facility] Summary Purpose Family History No [...] By Contac t Referred To Contact [facility] [place] Diagnoses Degeneration of intervertebral disc of cervical region with osteophyte of cervical vertebra Procedures CONSULT TO [facility] OFFICE/OUTPATIENT [facility] 60-74 MINUTES Glenroy Syed, FOOD SAFETY MANAGER.RN CLINICAL RESOURCE [address] [id number] Referral ID Status Reason Start Date Expiration Date Visits Requested Visits Authorized [id number] Authorized PCP Requested Referral 10/15/2022 10/15/2023 1 1 Specialty Diagnoses / Procedures Referred By Contac t Referred To Contact Ophthalmology Diagnoses Ocular migraine Procedures CONSULT TO OPHTHALMOLOGY OFFICE/OUTPATIENT [facility] 60-74 MINUTES Len Shea, FOOD SAFETY MANAGER.RN CLINICAL RESOURCE [id number] [place] [address] Josefina Grmies MD [address] [place] [address] Referral ID Status Reason Start Date Expiration Date Visits Requested Visits Authorized [id number] Authorized PCP Requested Referral 08/20/2022 08/20/2023 1 1 Specialty Diagnoses / Procedures Referred By Contac t Referred To Contact Cardiology Diagnoses Dizziness Palpitations Procedures CONSULT TO CARDIOLOGY OFFICE/OUTPATIENT [facility] 60-74 MINUTES Glenroy Syed, FOOD SAFETY MANAGER.RN CLINICAL RESOURCE [id number] [place] [address] Referral ID Status Reason Start Date Expiration Date Visits Requested Visits Authorized [id number] Authorized PCP Requested Referral 2 07/07/2023 1 1 Specialty Diagnoses / Procedures Referred By Contac t Referred To Contact MR IMAGING Diagnoses Dizziness Vision changes Procedures MRI BRAIN WO/W IVCON MRI BRAIN BRAIN STEM W/O W/CONTRAST MATERIAL Glenroy Syed, FOOD SAFETY MANAGER.RN CLINICAL RESOURCE [id number] [place] [address] Mr Imaging Referral ID Status Reason Start Date Expiration Date Visits Requested Visits Authorized [id number] Authorized Auto-Generat ed Referral 2 08/21/2022 1 1 Specialty Diagnoses / Procedures Referred By Contac t Referred To Contact Ophthalmology Diagnoses Vision changes Procedures CONSULT TO OPHTHALMOLOGY OFFICE/OUTPATIENT [facility] 60-74 MINUTES Glenroy Syed, FOOD SAFETY MANAGER.RN CLINICAL RESOURCE [address] [place] [address] Josefina Grimes MD [address] [place] [address] Referral ID Status Reason Start Date Expiration Date Visits Requested Visits Authorized [id number] Authorized PCP Requested Referral 2 07/07/2023 1 1 Specialty Diagnoses / Procedures Referred By Contac t Referred To Contact [facility] Diagnoses Palpitations Procedures ECHO ECHO TTHRC R-T 2D W/WOM-MODE COMPL SPEC&COLR D Glenroy Syed, FOOD SAFETY MANAGER.RN CLINICAL RESOURCE [address] [place] [address] [facility] [place] [address] [place] [address] Referral ID Status Reason Start Date Expiration Date Visits Requested Visits Authorized [id number] Authorized Auto-Generat ed Referral 2 07/07/2023 1 1 Additional Source Comments INFORMATION SOURCE (unrecogn ized section and content) DATE CREATED AUTHOR 11/24/2021 [facility] DATE CREATED AUTHOR AUTHOR'S ORGANIZ ATION 07/20/2022 [facility] DATE CREATED AUTHOR AUTHOR'S ORGANIZ ATION 09/06/2022 [facility] DATE CREATED AUTHOR AUTHOR'S ORGANIZ ATION 10/16/2022 [facility] DATE CREATED AUTHOR AUTHOR'S ORGANIZ ATION 10/26/2023 [facility] DATE CREATED AUTHOR AUTHOR'S ORGANIZ ATION 11/27/2024 [facility] DATE CREATED AUTHOR AUTHOR'S ORGANIZ ATION 03/22/2025 [facility] DATE CREATED AUTHOR AUTHOR'S ORGANIZ ATION 04/01/2025 [facility] Source Comments (unrecognize d section and content) In the event this informatio n is protected by the Federal Confidentiality of Alcohol and Drug Abuse Patient Records regulations: The Federal rules restrict any use of the information to criminally investigate or prosecute any alcohol or drug abuse patient.[facility] the event this information is protected by the Federal Confidentiality of Alcohol and Drug Abuse Patient Records regulations: The Federal rules restrict any use of the information to criminally investigate or prosecute any alcohol or drug abuse patient.[facility] the event this information is protected by the Federal Confidentiality of Alcohol and Drug Abuse Patient Records regulations: The Federal rules restrict any use of the information to criminally investigate or prosecute any alcohol or drug abuse patient.[facility] the event this information is protected by the Federal Confidentiality of Alcohol and Drug Abuse Patient Records regulations: The Federal rules restrict any use of the information to criminally investigate or prosecute any alcohol or drug abuse patient.[facility] the event this information is protected by the Federal Confidentiality of Alcohol and Drug Abuse Patient Records regulations: The Federal rules restrict any use of the information to criminally investigate or prosecute any alcohol or drug abuse patient.[facility] the event this information is protected by the Federal Confidentiality of Alcohol and Drug Abuse Patient Records regulations: The Federal rules restrict any use of the information to criminally investigate or prosecute any alcohol or drug abuse patient.[facility] the event this information is protected by the Federal Confidentiality of Alcohol and Drug Abuse Patient Records regulations: The Federal rules restrict any use of the information to criminally investigate or prosecute any alcohol or drug abuse patient.[facility] the event this information is protected by the Federal Confidentiality of Alcohol and Drug Abuse Patient Records regulations: The Federal rules restrict any use of the information to criminally investigate or prosecute any alcohol or drug abuse patient.[facility] the event this information is protected by the Federal Confidentiality of Alcohol and Drug Abuse Patient Records regulations: The Federal rules restrict any use of the information to criminally investigate or prosecute any alcohol or drug abuse patient.[facility] Center[facility] the event this information is protected by the Federal Confidentiality of Alcohol and Drug Abuse Patient Records regulations: The Federal rules restrict any use of the information to criminally investigate or prosecute any alcohol or drug abuse patient.[facility] Reason for Visit (unrecogniz ed section and content) Reason Comments New Patient New patient, possrussell e autonomic disorder had tilt table test few yrs ago, Has pressure that comes and goes on the lower back part of the head. Reason Comments Received Outside Medical Records Reason Comments PT Eval Specialty Diagnoses / Procedures Referred By Contac t Referred To Contact Physical Therapy / PHYSICAL THERAPY Diagnoses Dizziness [R42] Procedures NEW RS PT VESTIBULAR DIZZY Glenroy Syed, ELISEO.RN CLINICAL [employer]OURCE [address] [place] [address] Carmen Johnson, PT [address] [place] [address] Referral ID Status Reason Start Date Expiration Date Visits Re quested Visits Authorized [id number] Closed 08/08/2021 08/07/2022 30 30 Reason Comments Physical Therapy Specialty Diagnoses / Procedures Referred By Contac t Referred To Contact PHYSICAL THERAPY Diagnoses Dizziness Procedures Physical Therapy Glenroy Syed, ELISEO.RN [facility]ICAL [facility] [address] [place] [address] [facility] [address] [place] [address] Referral ID Status Reason Start Date Expiration Date V isits Requested Visits Authorized [id number] Pending Review 08/12/2022 11/10/2022 1 1 Reason Comments Establish Care Palpitations Dizziness Specialty Diagnoses / Procedures Referred By Contac t Referred To Contact Cardiology Diagnoses Dizziness Palpitations Procedures CONSULT TO CARDIOLOGY OFFICE/OUTPATIENT [facility] MDM 60-74 MINUTES Glenroy Syed, FOOD SAFETY MANAGER.RN CLINICAL RESOURCE [address] [place] [address] Referral ID Status Reason Start Date Expiration Date V isits Requested Visits Authorized [id number] Closed PCP Requested Referral 07/07/2022 07/07/2023 1 1 Reason Comments Radiology MRI Reason Onset Date Comments neuro referral 10/02/2024 Care Teams (unrecognized sec tion and content) Blow Molding 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 Specialty Start Date End Date Mert Lama MD [address] [place] [address] Referring Family Medicine 06/10/22 Blow Molding 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 Specialty Start Date End Date Mert Lama MD [address] [place] [id number] Referring Family Medicine 06/10/22 Blow Molding 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 Specialty Start Date End Date Mert Lama MD [address] [place] [address] Referring Family Medicine 06/10/22 Blow Molding 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 Specialty Start Date End Date Mert Lama MD [address] [place] [address] Referring Family Medicine 06/10/22 Blow Molding 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 Specialty Start Date End Date Mert aLma MD [address] [place] [address] Referring Family Medicine 06/10/22 Blow Molding 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 [employer] [facility]. provides no warranty or guarantee of the accuracy or completeness of information in this document.
--- NOTE | 2025-04-11 07:56 | P.CN_ITS ---
Consult Note: HPI Data of Consult Patient: known to practice within the last 3 years Consult date: 04/11/25 Requesting Physician: Deepika Alicia NP Primary Care Provider: YE RODRIGUEZ Consult Narrative Reason for consult: neck pain Narrative: Jeanette Vasquez a pleasant 44 year old female presents for evaluation and ashley gement of chronic neck pain secondary to ddd and cervical spondylosis. Pt has failed to benefit from > 6 weeks of PT and provider guided HEP, heat, ice, tylenol, and NSAIDs. currently utilizing tizanidine 4mg BID PRN pain/spasms. recently underwent right and left C4-5 C5-6 facet RFA with >50% improvement ongoing. is noting numbness and sensitivity on left side of neck post RFA which is improving with time. noting chronic diffuse pain throughout spine, has failed tylenol motrin flexeril hydrocodone and mobic in the past. cc:: CC: Deepika Alicia NP Review of Systems ROS Musculoskeletal Reports: back pain, neck pain and joint pain PFSH PFSH Medical History (Updated 04/11/25 @ 08:09 by Deepika Alicia NP) Arthritis ?M19.90 - Unspecified osteoarthritis, unspecified site (ICD-10) Anemia ?D64.9 - Anemia, unspecified (ICD-10) Acid reflux ?K21.9 - Gastro-esophageal reflux disease without esophagitis (ICD-10) Kidney stone ?N20.0 - Calculus of kidney (ICD-10) Irregular heart beat ?I49.9 - Cardiac arrhythmia, unspecified (ICD-10) Surgical History History of cardiac radiofrequency ablation ?Z98.890 - Other specified postprocedural states (ICD-10) History of ankle surgery ?Z98.890 - Other specified postprocedural states (ICD-10) History of hysterectomy ?Z90.710 - Acquired absence of both cervix and uterus (ICD-10) Hx of cholecystectomy ?Z90.49 - Acquired absence of other specified parts of digestive tract (ICD- 10) Meds Home Medications and Allergies Home Medications ?Medication ?Instructions ?Recorded ?Confirmed ?Type metoprolol tartrate 50 mg tablet 50 mg PO BID 12/30/23 03/11/25 History tizanidine 4 mg capsule (Zanaflex) 4 mg PO Q8H PRN mus abhishek spasticity 05/24/24 08/04/25 Rx #20 caps flecainide 100 mg tablet 100 mg PO Q12H 02/18/2511/30 History Allergies Allergy/AdvReac Type Severity Reaction Status Date / Time No Known Drug Allergies Allergy Verified 03/11/25 06:52 Exam Constitutional Documenting provider has reviewed patient's vital signs: yes Common normals: no apparent distress, oriented x3, healthy appearing, alert and well nourished General appearance: cooperative HENMT Common normals: normocephalic, hearing grossly normal bilaterally and moist oral mucous membranes Head and scalp: normocephalic Eye Common normals: PERRL Pupil: PERRL Neck & C-Spine Common normals: full ROM General: normal visual inspection Cervical spine: cervical ROM normal, pain with cervical ROM and cervical spine tenderness C4, C5, C6, C7 and T1 Other: negative spurlings strength 5/5 in BUE sensation intact BUE Chest Common normals: inspection of chest normal Respiratory Common normals: normal respiratory effort, no retractions and no use of accessory muscles Back & Pelvis Thoracic spine/upper back: pain with ROM and thoracic spinal tenderness Lumbar spine/lower back: pain with ROM and lumbar spinal tenderness Sacroiliac joints: SI joint(s) abnormal Other: tenderness over left PSIS strength 5/5 in BLE Neuro Common normals: oriented x3 Sensorium/orientation: alert Psych Common normals: mental status grossly normal, thought process normal, cooperative, affect normal, speech normal and activity/motor behavior normal Speech: normal speech Thought process: normal thought process Results Additional Findings Additional findings: If on a controlled substance or opioids, I have checked an [place] report on this patient and there are no aberrancies noted in the prescribing history.??If on a controlled substance or opioid a drug screen was completed and reviewed within the last year, and if there has not been a drug screen completed we ordered one today to monitor higher risk, state monitored pain medication use. As part of providing excellent, safe, comprehensive care, the following was completed at our patient's visit: 1. A medication reconciliation and review to ensure accurate knowledge of current/active medications, including asking our patients to inform us about any [id number] medications or herbal remedies/nutritional supplements/alternative remedies. 2. A review to specifically ensure our patients have had annual screening for screening for depression, screening for tobacco use, and screening for unhealthy alcohol use. For concerning screenings had a discussion with the patient, provided patient education, and recommended follow-up with primary care provider when appropriate. If patient noted with a risk of falling, they received education on strength, gait, and balance training to prevent future risk of falling. Portions of this note may have been carried over from the previous visit and updated as appropriate. Please note this office utilizes paper charting in addition to the electronic medical record. A list of current medications, vitals, and PMH is available there as the clinical staff outside of myself do not have access to [employer] charting during the clinic day operations. As part of providing quality comprehensive care the current medications, vitals, and PMH were reviewed in the paper chart. Assessment and Plan Assessment and Plan (1) Cervical spondylosis: (2) Lumbar spondylosis: (3) Myofascial pain: (4) Chronic pain syndrome: (5) Sacroiliitis: Plan The patient has had over 3 months of moderate to severe neck, middle back, low back pain with functional impairment and inadequate response to conservative care including NSAIDS (unless there are contraindication such as concurrent blood thinners), multiple oral or topical pain medications, and home exercise program/physical therapy.? Patient has completed >6 weeks of guided home exercise program and/or formal physical therapy program without relief of their symptoms.? I have reviewed the imaging of the cervical spine and no red flags were identified.? The imaging reveals radiographic findings consistent with cervical ddd and spondylosis The Oswestry Disability Index was completed, and the patient scored a 26%.? The patient noted the following:?? moderate pain with activity, lifting, sitting, sleep, social life, and travel start duloxetine 30mg HS for chronic pain syndrome and diffuse joint pain continue tizanidine 4mg TID prn pain/spasms continue HEP as tolerated f/u 6 weeks, consider increasing duloxetine
== END 2025-04-11 07:13 | disposition home or self-care (01) ==
PROVIDERS: PCP Nurse Practitioner; Visit Provider Nurse Practitioner
DX: M47.812 Spondylosis without myelopathy or radiculopathy, cervical region (principal); M47.816 Spondylosis without myelopathy or radiculopathy, lumbar region; M79.18 Myalgia, other site; G89.4 Chronic pain syndrome; M46.1 Sacroiliitis, not elsewhere classified
CPT/HCPCS: G0463

== ENCOUNTER 2025-05-22 07:39 | Outpatient (OUT) | payer BC, SELFPAY ==
--- OUTSIDE RECORDS SUMMARY | 2025-05-22 07:43 | XMS_ITS | CCD ---
Author Organization [facility] Care Team Providers Care Hydropress Operator Name Role Phone MERT LAMA Referring Unavailable PAMELLA BRENNAN Attending Unavailable MIKA, PAMELLA Ang Surgeon Unavailable PAMELLA BRENNAN Admitting Unavailable ME Procedure Practitioner Unavailab MERT Caban Primary Care [...] Attending Unavailable MERT LAMA Primary Care Physician [phone] Mert Lama MD Unavailable [phone] DANIEL, DR MERT Forrest Primary Care Unavailable [...] on above: Take 1 capsule by mo [facility] once daily. Problems [...] Other halfway (current) drug therapy; Translations: [OTH ASSISTED CURRENT [...] Value Interpretation Reference Range Facility Orders Onlyon 04-27-2025 Orders Only [id number] Winsome Vasquezil y N 1980 F Date Provider Department Center 04/27/2025 [facility] No family history on file Normal [facility] Orders Onlyon 03-26-2025 Orders Only [id number] Winsome Vasquezil y N 1980 F Date Provider Department Center 03/26/2025 [facility] No family history on file Normal [facility] Orders Onlyon 02-23-2025 Orders Only [id number] Winsome Vasquezil y N 1980 F Date Provider Department Center 02/23/2025 [facility] No family history on file Normal [facility] Office Visiton 01-15-2025 Follow-up visit [id number] Winsome Vasquezil y N 1980 F Date Provider Department Center 01/15/2025 [facility]AL [facility] No family history on file Level of Service:09132 ME OFFICE/OUTPATIENT ESTABLISHED LOW MDM 20 MIN Normal [facility] Orders Onlyon 12-24-2024 Orders Only [id number] Bacilio Vasquez 1980 F Date Provider Department Center 12/24/2024 MARI [facility] No family history on file Normal [facility] 36on 12-11-2024 36 Patient has not been seen since 2022 will need in person appointment for further refills Normal [facility] 36on 12-07-2024 36 Patient has not been seen since 2022 Normal [facility] Family Medicine Office/Clini c Noteon 11-16-2024 Family [...] day(s), # 14 tab(s), Refills(s) 0, [id number], 165.1, cm, 11/15/24 15:29:00 EDT, Height/Length Dosing, 116, kg, 11/15/24 15:29:00 EDT, Weight Dosing 2. Ear pain (H92.09: Otalgia, unspecified ear) augmentin sent in. pt to use debrox and return for ear irrigation in 7-10 days Ordered: amoxicillin-clavulanat e, = 1 tab(s), Oral, q12hr, X 7 day(s), # 14 tab(s), Refills(s) 0, [id number], 165.1, cm, 11/15/24 15:29:00 EDT, Height/Length [...] day(s), # 14 tab(s), Refills(s) 0, [id number], 165.1, cm, 11/15/24 15:29:00 EDT, Height/Length Dosing, 116, kg, 11/15/24 15:29:00 EDT, Weight Dosing 4. Non-smoker (Z78.9: Other specified health status) continue not smoking Ordered: amoxicillin-clavulanat e, = 1 tab(s), Oral, q12hr, X 7 day(s), # 14 tab(s), Refills(s) 0, Pharmacy: [facility]/pharmacy #[id number], 165.1, cm, 11/15/24 15:29:00 EDT, Height/Length [...] 50,000 intl units (1.25 mg) oral capsule, 18885 International_Unit= 1 cap(s), Oral, qWeek Allergies No [...] (more content not included)... Normal [facility] Comment on above: Result Comment: Elec tronically Signed By: Cristiane Brasher\.leia\Date and Time Signed: 11/16/24 14:28 EDT 36on 11-05-2024 36 Patient will need follow up appointment for further refills has not been seen since 2022 Normal [facility] Family Medicine Office/Clini c Noteon 09-12-2024 Family [...] tunnel vision and muscle spasm to bilateral cheondoism and sharp pain to right cheondoism. Tongue/whole mouth felt like it had an [...] want to go to [place]. referral to [facility] neurology sent Ordered: [facility] External Ambulatory Referral 2. Facial tingling (R20.2: Paresthesia of skin) pt had episode when she had facial tingling, and in her mouth. she states it felt like she put a battery to her tongue. Ordered: [facility] External Ambulatory Referral 3. Pressure in head (R51.9: Headache, unspecified) c/o constant pressure of her head. Ordered: [facility] External Ambulatory Referral 4. 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 so much that it made her glasses move up and down. referral to neurology sent Ordered: [facility] External Ambulatory Referral 5. Right [...] Daily, # 30 tab(s), Refills(s) 0, Pharmacy: [facility]/pharmacy #[id number], 165.1, cm, 12/19/23 13:17:00 EDT, Height/Length Dosing, 114.6, kg, 12/19/23 13:17:00 EDT, Weight Dosing [facility] External Ambulatory Referral 9. Non-smoker (Z78.9: Other specified health status) continue not smoking Ordered: meloxicam, 15 mg = 1 tab(s), Oral, Daily, # 30 tab(s), Refills(s) 0, Pharmacy: [facility]/pharmacy #[id number], 165.1, cm, 12/19/23 13:17:00 EDT, Height/Length Dosing, 114.6, kg, 12/19/23 13:17:00 EDT, Weight Dosing Orders: acetaminophen-hydrocod one, 1 tab(s), Oral, Bedtime for pain, 20 tab(s), Refill(s) 0, [facility]/pharmacy #[id number], 165.1, cm, 12/19/23 13:17:00 EDT, Height/Length Dosing, 114.6, kg, 12/19/23 13:17:00 EDT, Weight Dosing methocarbamol, See Instructions, TAKE 1 TABLET BY MOUTH EVERY 6 HOURS NEEDED FOR PAIN, # 30 tab(s), Refills(s) 0, Pharmacy: [facility]/pharmacy #[id number], 165.1, cm, 12/19/23 13:17:00 [...] (more content not included)... Normal [facility] Comment on above: Result Comment: Elec tronically Signed By: Cristiane Brasher\.br\Date and Time Signed: 09/12/24 13:11 EST Ambulatory Visit Summaryon 0 09-11-2024 Ambulatory Visit Summary Ambulatory Visit Summary SYDNIEKAILA SHELLEY Emily :1980 Visit Date:09/11/2024 Ambulatory Visit Instructions [...] us for your care. Normal [facility] ED Note-Physicianon 01-03-20 24 ED Note-Physician [id number]#1.00 TIFF Normal [facility] RAD - MRI Reporton 4 RAD - MRI Report [id number]#1.0 0TIFF Normal [facility] RAD - MRI Report [id number]#1.0 0TIFF Normal [facility] RAD - MRI Report [id number]#1.00 TIFF Normal [facility] RAD - MRI Report [id number]#1.00 TIFF Normal [facility] RAD - MRI Report [id number]#1.0 0TIFF [facility] RAD - MRI Report [id number]#1.00 TIFF [facility] Physician Orderon 12-22-2023 Physician Order [id number]#1.00 TIFF [facility] Provider Letteron 12-21-2023 Provider Letter December 21, 2023 KAILA VASQUEZ [address] [place] [id number] : 1980 To Whom It May Concern, Please excuse above patient from work. Date of Illness: From: 12/19/2023 To: 12/21/2023 May Return to Work On: 12/22/2023 Sincerely, HARPREET Stewart [address] [address] [facility] Lab Reportson 12-20-2023 Lab Reports [id number]#1.00 TIFF [facility] Physician Orderon 12-20-2023 Physician Order [id number]#1.00 TIFF [facility] RAD - MISCon 12-20-2023 RAD - MISC [id number]#1.00 TIFF [facility] Ambulatory Visit Summaryon 0 12-19-2023 Ambulatory Visit [...] sciatica BMI 40.0-44.9, adult Non-smoker Pickup at [facility]/pharmacy #[id number] New meloxicam (meloxicam 15 mg Tab) 1 Tablets By Mouth Every day Low back pain with sciatica BMI 40.0-44.9, adult Non-smoker Pickup at [facility]/pharmacy #[id number] New methylPREDNISolone (Medrol 4 mg Tab) 1 Packets By Mouth As Directed Low back pain with sciatica BMI 40.0-44.9, adult Non-smoker Duration: 6 Days as directed on package labeling Pickup at [facility]/pharmacy #[id number] Unchanged metoprolol (Metoprolol tartrate 50 mg Tab) 1 Tablets By Mouth 2 times a day Pharmacy Information [facility]/pharmacy #[id number]: [address], [place] [id number] [phone] Medications and Immunizations Administered Given ketorolac 30 [...] us for your care. 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 Had x-ray done at [facility] for spine over a year [...] Bedtime for spasm, 20 cap(s), Refill(s) 0, [facility]/pharmacy #[id number], 165.1, cm, 12/19/23 13:17:00 EDT, Height/Length Dosing, 114.6, kg, 12/19/23 13:17:00 EDT, Weight Dosing ketorolac, 30 mg = 1 mL, Injection, IntraMuscular, Once, Stop date 12/19/23 13:35:00 EDT, Routine, Start date 12/19/23 13:35:00 EDT, 12/19/23 13:35:00 EDT meloxicam, 15 mg = 1 tab(s), Oral, Daily, # 30 tab(s), Refills(s) 0, Pharmacy: [facility]/pharmacy #[id number], 165.1, cm, 12/19/23 13:17:00 EDT, Height/Length Dosing, 114.6, kg, 12/19/23 13:17:00 EDT, Weight Dosing methylPREDNISolone, = 1 packet(s), Oral, As Directed, as directed on package labeling, X 6 day(s), # 21 tab(s), Refills(s) 0, Pharmacy: [facility]/pharmacy #[id number], 165.1, cm, 12/19/23 13:17:00 EDT, Height/Length Dosing, 114.6, kg, 12/19/23 13:17:00 EDT, Weight Dosing 2. BMI 40.0-44.9, adult (Z68.41: Body mass index [BMI] 40.0-44.9, adult) BMI education complete Ordered: cyclobenzaprine, 15 mg, 1 cap(s), Oral, Bedtime for spasm, 20 cap(s), Refill(s) 0, [facility]/pharmacy #[id number], 165.1, cm, 12/19/23 13:17:00 EDT, Height/Length Dosing, 114.6, kg, 12/19/23 13:17:00 EDT, Weight Dosing ketorolac, 30 mg = 1 mL, Injection, IntraMuscular, Once, Stop date 12/19/23 13:35:00 EDT, Routine, Start date 12/19/23 13:35:00 EDT, 12/19/23:35:00 EDT meloxicam, 15 mg = 1 tab(s), Oral, Daily, # 30 tab(s), Refills(s) 0, Pharmacy: [facility]/pharmacy #[id number], 165.1, cm, 12/19/23 13:17:00 EDT, Height/Length Dosing, 114.6, kg, 12/19/23 13:17:00 EDT, Weight Dosing methylPREDNISolone, = 1 packet(s), Oral, As Directed, as directed on package labeling, X 6 day(s), # 21 tab(s), Refills(s) 0, Pharmacy: [facility]/pharmacy #[id number], 165.1, cm, 12/19/23 13:17:00 EDT, Height/Length Dosing, 114.6, kg, 12/19/23 13:17:00 EDT, Weight Dosing 3. Non-smoker (Z78.9: Other specified health status) continue not smoking Ordered: cyclobenzaprine, 15 mg, 1 cap(s), Oral, Bedtime for spasm, 20 cap(s), Refill(s) 0, [facility]/pharmacy #[id number], 165.1, cm, 12/19/23 13:17:00 EDT, Height/Length Dosing, 114.6, kg, 12/19/23 13:17:00 EDT, Weight Dosing ketorolac, 30 mg = 1 mL, Injection, IntraMuscular, Once, Stop date 12/19/23:35:00 EDT, Routine, Start date 12/19/23 13:35:00 EDT, 12/19/23 13:35:00 EDT meloxicam, 15 mg = 1 tab(s), Oral, Daily, # 30 tab(s), Refills(s) 0, [id number], 165.1, cm, 12/19/23 13:17:00 EDT, Height/Length Dosing, 114.6, kg, 12/19/23 13:17:00 EDT, Weight Dosing methylPREDNISolone, = 1 packet(s), Oral, As Directed, as directed on package labeling, X 6 day(s), # 21 tab(s), Refills(s) 0, [id number], 165.1, cm, 12/19/23 13:17:00 EDT, Height/Length Dosing, 114.6, kg, 12/19/23 13:17:00 EDT, Weight Dosing Follow-up No qualifying data available Problem List/Past Medical History Ongoing Anemia Anxiety (more content not included)... Normal [facility] Comment on above: Result Comment: Elec tronically Signed By: Cristiane Brasher\.br\Date and Time Signed: 12/19/23 13:59 EDT Physician Orderon 12-19-2023 Physician Order [id number]#1.00 TIFF Normal [facility] MRI BRAIN WO/W IVCONon 10-14 [...] cord. No mass or pathologic intradural enhancement. Director Park: PSCShon Transcribe Date/Time: Oct 14 2022 8:43P Dictated by : UNIQUE ANDERSON MD This examination was interpreted and the report reviewed and electronically signed by: UNIQUE ANDERSON MD on Oct 14 2022 8:51PM EST [id number] Normal [facility] MRI CERVICAL SPINE WO/W IVCO [...] cord. No mass or pathologic intradural enhancement. Director Park: PSCB Transcribe Date/Time: Oct 14 2022 8:43P Dictated by : UNIQUE ANDERSON MD This examination was interpreted and the report reviewed and electronically signed by: UNIQUE ANDERSON MD on Oct 14 2022 8:51PM EST [id number] Normal [facility] CBC AUTO DIFFon 09-02-2022 BASO # 0.1 103/ul Normal 0.0-0.[address] [facility] Comment on above: Performed By: #### C MP, TSH, HSTROPN #### [facility] [address] [address] [address] Christos Fallon Basophils/100 WBC (Bld) 0.5 % Normal 0.2-2.[address] [facility] Comment on above: Performed By: #### C MP, TSH, HSTROPN #### [facility] [address] [address] [address] Christos Fallon EO # 0.2 103/ul Normal 0.0-0.7 [facility] Comment on above: Performed By: #### C MP, TSH, HSTROPN #### [facility] [address] [address] [address] Christos Fallon Eosinophils/100 WBC (Bld) 2.3 % Normal 0.9-7.[address] [facility] Comment on above: Performed By: #### C MP, TSH, HSTROPN #### [facility] [address] [address] [address] Christos Fallon Erythrocyte distribution width (RBC) [Ratio] 13.0 % Normal 11.0-15.[address] [facility] Comment on above: Performed By: #### C MP, TSH, HSTROPN #### [facility] [address] [place] [address] Dr. Christos Fallon Hematocrit (Bld) [Volume fraction] 43.0 % Normal 36.0-48.[address] [facility] Comment on above: Performed By: #### C MP, TSH, HSTROPN #### [facility] [address] [place] [address] Dr. Christos Fallon Hemoglobin (Bld) [Mass/Vol] 13.9 g/dL Normal 12.0-16.[address] [facility] Comment on above: Performed By: #### C MP, TSH, HSTROPN #### [facility] [address] [place] [address] Dr. Christos Fallon IG # 0.03 10e3/ul Normal 0.00-0.[address] [facility] Comment on above: Performed By: #### C MP, TSH, HSTROPN #### [facility] [address] [place] [address] Dr. Christos Fallon IG % 0.3 % Normal 0.0-0.[address] [facility] Comment on above: Performed By: #### C MP, TSH, HSTROPN #### [facility] [address] [place] [address] Dr. Christos Fallon LYMPH # 2.8 103/ul Normal 1.2-3.8 [facility] Comment on above: Performed By: #### C MP, TSH, HSTROPN #### [facility] [address] [place] [address] Dr. Christos Fallon Lymphocytes/100 WBC (Bld) 29.6 % Normal 20.5-60.0 [facility] Comment on above: Performed By: #### C MP, TSH, HSTROPN #### [facility] [address] [place] [address] Dr. Christos Fallon MANUAL DIFF REQ NO Normal [facility] Comment on above: Performed By: #### C MP, TSH, HSTROPN #### [facility] [address] [place] [address] Dr. Christos Fallon MCH (RBC) [Entitic mass] 34.8 pg Critically high 26.7-34.[address] [facility] Comment on above: Performed By: #### C MP, TSH, HSTROPN #### [facility] [address] [place] [address] Dr. Christos Fallon MCHC (RBC) [Mass/Vol] 32.3 g/dL Normal 29.9-35.2 [facility] Comment on above: Performed By: #### C MP, TSH, HSTROPN #### [facility] [address] [place] [address] Dr. Christos Fallon MCV (RBC) [Entitic vol] 107.5 fL Critically high 81.0-99.[address] [facility] Comment on above: Performed By: #### C MP, TSH, HSTROPN #### [facility] [address] [place] [address] Dr. Christos Fallon MONO # 0.7 103/ul Normal 0.3-0.8 [facility] Comment on above: Performed By: #### C MP, TSH, HSTROPN #### [facility] [address] [place] [address] Dr. Christos Fallon Monocytes/100 WBC (Bld) 7.7 % Normal 1.7-12.[address] [facility] Comment on above: Performed By: #### C MP, TSH, HSTROPN #### [facility] [address] [place] [address] Dr. Christos Fallon NEUT # 5.7 103/ul Normal 1.4-6.5 [facility] Comment on above: Performed By: #### C MP, TSH, HSTROPN #### [facility] [address] [place] [address] Dr. Christos Fallon Neutrophils/100 WBC (Bld) 59.6 % Normal 43.0-75.0 [facility] Comment on above: Performed By: #### C MP, TSH, HSTROPN #### [facility] [address] [place] [address] Dr. Christos Fallon Platelet mean volume (Bld) [Entitic vol] 9.9 fL Normal 9.5-13.[address] [facility] Comment on above: Performed By: #### C MP, TSH, HSTROPN #### [facility] [address] [place] [address] Dr. Christos Fallon PLT 309 103/ul Normal 150-450 [facility] Comment on above: Performed By: #### C MP, TSH, HSTROPN #### [facility] [address] [place] [address] Dr. Christos Fallon RBC 4.00 106/ul Critically low 4.20-5.40 [facility] Comment on above: Performed By: #### C MP, TSH, HSTROPN #### [facility] [address] [place] [address] Dr. Christos Fallon WBC 9.6 103/ul Normal 4.0-11.0 [facility] Comment on above: Performed By: #### C MP, TSH, HSTROPN #### [facility] [address] [place] [address] Dr. Christos Fallon D-DIMERon 09-02-2022 D-DIMER 0.28 mg/L FEU Normal <=0.59 [facility] Comment on above: Performed By: #### C MP, TSH, HSTROPN #### [facility] [address] [place] [address] Dr. Christos Fallon D-DIMER COMMENTS SEE BELOW Normal [facility] Comment on above: Result Comment: Incr [...] By: #### C MP, TSH, HSTROPN #### [facility] [address] [place] [address] Dr. Christos Fallon PROF 14(COMP METB)on 023 Albumin [Mass/Vol] 3.8 g/dL Normal 3.4-5.0 [facility] Comment on above: Performed By: #### C MP, TSH, HSTROPN #### [facility] [address] [place] [address] Dr. Christos Fallon Albumin/Globulin [Mass ratio] 1.2 {ratio} Normal [facility] Comment on above: Performed By: #### C MP, TSH, HSTROPN #### [facility] [address] [place] [address] Dr. Christos Fallon ALP [Catalytic activity/Vol] 85 U/L Normal 46-[address] [facility] Comment on above: Performed By: #### C MP, TSH, HSTROPN #### [facility] [address] [place] [address] Dr. Christos Fallon ALT [Catalytic activity/Vol] 39 U/L Normal 14-[address] [facility] Comment on above: Performed By: #### C MP, TSH, HSTROPN #### [facility] [address] [place] [address] Dr. Christos Fallon Anion gap [Moles/Vol] 16.3 mmol/L Normal [facility] Comment on above: Performed By: #### C MP, TSH, HSTROPN #### [facility] [address] [place] [address] Dr. Christos Fallon AST [Catalytic activity/Vol] 19 U/L Normal 15-[address] [facility] Comment on above: Performed By: #### C MP, TSH, HSTROPN #### [facility] [address] [place] [address] Dr. Christos Fallon Bilirubin [Mass/Vol] 0.4 mg/dL Normal 0.2-1.[address] [facility] Comment on above: Performed By: #### C MP, TSH, HSTROPN #### [facility] [address] [place] [address] Dr. Christos Fallon Calcium [Mass/Vol] 9.2 mg/dL Normal 8.5-10.1 [facility] Comment on above: Performed By: #### C MP, TSH, HSTROPN #### [facility] [address] [address] [address] Christos Fallon Chloride [Moles/Vol] 101 mmol/L Normal 98-[address] [facility] Comment on above: Performed By: #### C MP, TSH, HSTROPN #### [facility] [address] [address] [address] Christos Fallon CO2 [Moles/Vol] 24.9 mmol/L Normal 21.0-32.0 [facility] Comment on above: Performed By: #### C MP, TSH, HSTROPN #### [facility] [address] [address] [address] Christos Fallon Creatinine [Mass/Vol] 0.83 mg/dL Normal 0.55-1.[address] [facility] Comment on above: Performed By: #### C MP, TSH, HSTROPN #### [facility] [address] [address] [address] Christos Fallon EGFR-AF CUBAN >60 Normal >=60 [facility] Comment on above: Performed By: #### C MP, TSH, HSTROPN #### [facility] [address] [place] [address] Dr. Christos Fallon EGFR-NON AF CUBAN >60 Normal >=[address] [facility] Comment on above: Performed By: #### C MP, TSH, HSTROPN #### [facility] [address] [address] [address] Christos Fallon Globulin (S) [Mass/Vol] 3.2 g/dL Normal [facility] Comment on above: Performed By: #### C MP, TSH, HSTROPN #### [facility] [address] [address] [address] Christos Fallon Glucose [Mass/Vol] 142 mg/dL Critically high 74-106 [facility] Comment on above: Performed By: #### C MP, TSH, HSTROPN #### [facility] [address] [address] [address] Christos Fallon Potassium [Moles/Vol] 3.2 mmol/L Critically low 3.5-5.1 [facility] Comment on above: Performed By: #### C MP, TSH, HSTROPN #### [facility] [address] [place] [address] Dr. Christos Fallon Protein [Mass/Vol] 7.0 g/dL Normal 6.4-8.2 [facility] Comment on above: Performed By: #### C MP, TSH, HSTROPN #### [facility] [address] [address] [address] Christos Fallon Sodium [Moles/Vol] 139 mmol/L Normal 136-145 [facility] Comment on above: Performed By: #### C MP, TSH, HSTROPN #### [facility] [address] [place] [address] Dr. Christos Fallon Urea nitrogen [Mass/Vol] 10.0 mg/dL Normal 7.0-18.0 [facility] Comment on above: Performed By: #### C MP, TSH, HSTROPN #### [facility] [address] [place] [address] Dr. Christos Fallon Urea nitrogen/Creatinine [Mass ratio] 12.0 mg/mg Normal [facility] Comment on above: Performed By: #### C MP, TSH, HSTROPN #### [facility] [address] [place] [address] Dr. Christos Fallon PROTIMEon 09-02-2022 INR Coag (PPP) [Relative time] {INR} Normal [facility] Comment on above: Performed By: #### C MP, TSH, HSTROPN #### [facility] [address] [place] [address] Dr. Christos Fallon INR GUIDELINES SEE BELOW Normal [facility] Comment on above: Result Comment: GUALBERTO RED INR: 2.0 - 3.0 CONDITIONS NOT LISTED BELOW 2.5 - 3.5 FOR PROSTHETIC HEART VALVE REPLACEMENT 2.5 - 3.5 RECURRENT THROMBOSIS Performed By: #### C MP, TSH, HSTROPN #### [facility] [address] [address] [address] Christos Fallon PT Coag (PPP) [Time] 9.7 s Normal 9.0-11.6 [facility] Comment on above: Performed By: #### C MP, TSH, HSTROPN #### [facility] Laboratory [address] [address] [address] Christos Fallon PTTon 09-02-2022 aPTT Coag (Bld) [Time] 25.9 s Normal 22.3-36.2 [facility] Comment on above: Performed By: #### C MP, TSH, HSTROPN #### [facility] [address] [place] [address] Dr. Christos Fallon TROPONIN, HIGH SENSITIVITYon 09-02-2022 HSTROP <4.0 Normal 4.0-51.3 [facility] Comment on above: Result Comment: CUT- OFF POINTS HAVE BEEN ESTABLISHED BASED ON THE FOURTH UNIVERSAL DEFINITIONS OF MYOCARDIAL INFARCTION. THE UPPER REFERENCE LIMIT (URL) OF TROPONIN, DEFINED THE 99TH PERCENTILE OF cTnI DISTRIBUTION IN A REFERENCE POPULATION, HAS BEEN CONFIRMED THE DECISION THRESHOLD FOR [place] DIAGNOSIS. Performed By: #### C MP, TSH, HSTROPN #### [facility] [address] [place] [address] Dr. Christos Fallon TSHon 09-02-2022 TSH 0.813 uIU/mL Normal 0.358-3.740 [facility] Comment on above: Performed By: #### C MP, TSH, HSTROPN #### [facility] [address] [place] [address] Dr. Christos Fallon XR CHEST 1 Von [...] MON Date: 2022-09-02 15:[address] [facility] CNOVon 08-24-2022 OV Office Visit (BOOGIE ) KAILA VASQUEZ ([id number]) 1980 F Date Time Provider Department 08/24/22 2:00 PM JANELL SY During your visit today, we recorded the following information about you: Pulse Blood pressure Weight Height 88/minute 112/73 112.9 kg 1.626 m Janell Sy MD 08/24/2022 2:17 PM Signed [facility] [place] SECTION OF REGIONAL CARDIOLOGY OUTPATIENT VISIT DATE [...] Cardiac work-up includes: Echocardiogram on 05/19/2020 at [facility] showed normal ejection fraction. No valvular heart [...] (more content not included)... Normal [facility] ECG COMPLETEon 08-24-2022 ECG COMPLETE Ventricular Rate : 8 4 BPM Atrial Rate : 84 BPM P-R Interval : 166 ms QRS Duration : 92 ms Q-T Interval : 358 ms QTC Calculation(Bazett) : 423 ms Calculated P [place] : 60 degrees Calculated R [place] : 45 degrees Calculated T [place] : 45 degrees NORMAL SINUS RHYTHM INCREASED R/S RATIO IN V1, CONSIDER EARLY TRANSITION OR POSTERIOR INFARCT ABNORMAL ECG Confirmed by MEERA BOYD M.D. ([id number]) on 08/28/2022 3:03:10 PM NAME : KAILA VASQUEZ PID : [id number] : 1980 Gender : Female Race : ORD : [id number] Procedure Date : Aug 24 2022 13:56:02 [...] Acquired by : Jose browning [facility] CNTHERAPYon 08-12-2022 CNTHERAPY OT/PT/Speech Visit (PTAMCF) KAILA VASQUEZ ([id number]) 1980 F Date Time Provider Department 08/12/22 2:45 PM [facility] Date Time Provider Department [place] 08/12/2022 2:45 PM [id number][facility] Reason for Visit: Physical Therapy [503] [...] 10 mL (BD POSIFLUSH) Normal [facility] CNTHERAPYon 08-05-2022 CNTHERAPY OT/PT/Speech Visit (PTAMCF) KAILA VASQUEZ ([id number]) 1980 F Date Time Provider Department 08/05/22 9:15 AM [facility] Date Time Provider Department Center 08/05/2022 9:15 AM [id number], [facility] [place] [facility] Reason for Visit: PT Eval [747] [...] 10 mL (BD POSIFLUSH) Normal [facility] Covid-19 PCR (CVDTBH)on 07-09 SARS-CoV-2 (COVID-19) RNA LEROY+probe Ql (Unsp spec) Not detected Normal NOT DETECTED [facility] Comment on above: Result Comment: When [...] for this test is supported by the Speech Language Pathologist Travel of Health and Human Service's declaration that [...] used). Performed By: #### C VDAGA #### [facility] [address] [place] [address] Dr. Christos Fallon 25(OH)D3 [facility] 2021 25-hydroxyvitamin D3 [Mass/Vol] 15.8 ng/mL Low 31.0-80.0 [facility] Comment on above: Order Comment: Speci men Type: BLOOD SPECIMENOrdering Facility: [facility] Address: [address] [place] [address] Result Comment: Clas sification of 25 [place] Vitamin D status: Deficiency/Insufficiency: < or = 30 ng/ml. Sufficiency/Optimal Levels: 31-80 ng/mL Toxicity: > 100 ng/mL. Test performed by chemiluminescent immunoassay. Performed By: #### 1 989-3 ####[facility] LABCLIA [id number] [address] [place] ESEQUIEL BY IFA WITH REFLEXon ESEQUIEL PATTERN Nuclear fine speckled Normal [facility] Comment on above: Order Comment: Bryan hernández Type: BLOOD SPECIMENOrdering Facility: [facility] Address: [address] [place] [address] Performed By: #### 2 9374-6, 16062-0, 54966-2, 18614-8, 97397-4, ANAIFR, 99678-3, 51331-9, 28870-5, 26653-1 ####[facility] LABCLIA [id number] [address] [place] ESEQUIEL TITER 1:160 Normal [facility] Comment on above: Order Comment: Bryan hernández Type: BLOOD SPECIMENOrdering Facility: [facility] Address: [address] [place] [address] Performed By: #### 2 9374-6, 85714-3, 18943-1, 06225-1, 15243-0, ANAIFR, 59002-4, 72542-5, 24013-8, 31081-3 ####[facility] LABCLIA [id number] [place] [address] [place] Nuclear Ab IF (S) [Titer] Positive Abnormal Negative [facility] Comment on above: Order Comment: Speci men Type: BLOOD SPECIMENOrdering Facility: [facility] Address: [address] [place] [address] Result Comment: Anti -nuclear antibody test is used as an aid in diagnosis of systemic autoimmune diseases. Where positive and clinically warranted, follow-up using disease-specific testing is recommended. Low positive titers are not uncommon with advanced age, certain chronic infections, and malignancies among others. Test methodology: Indirect fluorescence immunoassay (IFA) using HEp-2 cells. Performed By: #### 2 9374-6, 51012-1, 88648-4, 63308-3, 59601-8, ANAIFR, 87629-1, 82492-8, 95114-6, 73070-0 ####[facility] LABCLIA [id number] [place] [address] [place] Basic metabolic 2000 panelon 07-07-2022 Anion gap [Moles/Vol] 13 mmol/L Normal 9-18 [facility] Comment on above: Order Comment: Speci men Type: BLOOD SPECIMENOrdering Facility: [facility] Address: [address] [place] [address] Performed By: #### 2 4321-2 ####[facility] LABCLIA [id number] [place] [address] [place] Calcium [Mass/Vol] 9.3 mg/dL Normal 8.5-10.2 [facility] Comment on above: Order Comment: Speci men Type: BLOOD SPECIMENOrdering Facility: [facility] Address: [address] [place] [address] Performed By: #### 2 4321-2 ####[facility] LABCLIA [id number] [place] [address] [place] Chloride [Moles/Vol] 102 mmol/L Normal 97-105 [facility] Comment on above: Order Comment: Speci men Type: BLOOD SPECIMENOrdering Facility: [facility] Address: [address] [place] [address] Performed By: #### 2 4321-2 ####[facility] LABIA [id number] [place] [address] [place] CO2 [Moles/Vol] 23 mmol/L Normal 22-30 [facility] Comment on above: Order Comment: Speci men Type: BLOOD SPECIMENOrdering Facility: [facility] Address: [address] [place] [address] Performed By: #### 2 4321-2 ####[facility] LABCLIA [id number] [place] [address] [place] Creatinine [Mass/Vol] 0.72 mg/dL Normal 0.58-0.96 [facility] Comment on above: Order Comment: Speci men Type: BLOOD SPECIMENOrdering Facility: [facility] Address: [address] [place] [address] Performed By: #### 2 4321-2 ####[facility] LABIA [id number] [place] [address] [place] ESTIMATED GLOMERULAR FILTRATION RATE 109 mL/min/1.73m??? Normal >=60 [facility] Comment on above: Order Comment: Speci men Type: BLOOD SPECIMENOrdering Facility: [facility] Address: [address] [place] [address] Result Comment: Dina mated Glomerular Filtration Rate [...] By: #### 2 4321-2 ####[facility] LABCLIA [id number] [place] [address] [place] Glucose [Mass/Vol] 98 mg/dL Normal 74-99 [facility] Comment on above: Order Comment: Speci men Type: BLOOD SPECIMENOrdering Facility: [facility] Address: [address] [place] [address] Result Comment: The [place] Diabetes Association (ADA) provides guidance for cutoff [...] Standards of Medical Care in Diabetes 2016, [place] [employer]. Diabetes Care. 2016.39(Suppl 1). Performed By: #### 2 4321-2 ####[facility] LABCLIA [id number] [place] [address] [place] Potassium [Moles/Vol] 4.1 mmol/L Normal 3.7-5.1 [facility] Comment on above: Order Comment: Davidi men Type: BLOOD SPECIMENOrdering Facility: [facility] Address: [address] [address] Performed By: #### 2 4321-2 ####[facility] LABIA [id number] [place] [address] [place] Sodium [Moles/Vol] 138 mmol/L Normal 136-144 [facility] Comment on above: Order Comment: Davidi men Type: BLOOD SPECIMENOrdering Facility: [facility] Address: [address] [place] [id number] Performed By: #### 2 4321-2 ####[facility] LABCLIA [id number] [place] [address] [place] Urea nitrogen [Mass/Vol] 8 mg/dL Normal 7-21 [facility] Comment on above: Order Comment: Speci men Type: BLOOD SPECIMENOrdering Facility: [facility] Address: [address] [address] Performed By: #### 2 4321-2 ####[facility] LABCLIA [id number] [place] [address] [place] Anion gap [Moles/Vol] 13 mmol/L 9 - 18 mmol/L [facility] Calcium [Mass/Vol] 9.3 mg/dL 8.5 - 10. 2 mg/dL [facility] Chloride [Moles/Vol] 102 mmol/L 97 - 10 5 mmol/L [facility] CO2 [Moles/Vol] 23 mmol/L 22 - 30 mmol/L [facility] Creatinine [Mass/Vol] 0.72 mg/dL 0.58 - 0.96 mg/dL [facility] Estimated Glomerular Filtration Rate 109 mL/min/1.73m >=60 mL/min/1.73m [facility] Glucose [Mass/Vol] 98 mg/dL 74 - 99 mg/dL [facility] Potassium [Moles/Vol] 4.1 mmol/L 3.7 - 5.1 mmol/L [facility] Sodium [Moles/Vol] 138 mmol/L 136 - 144 mmol/L [facility] Urea nitrogen [Mass/Vol] 8 mg/dL 7 - 21 mg/dL [facility] CBC W Auto Differential pane l (Bld)on 07-07-2022 Basophils (Bld) [#/Vol] 0.04 10*3/uL Normal <0.11 [facility] Comment on above: Order Comment: Speci men Type: BLOOD SPECIMENOrdering Facility: [facility] Address: [address] [address] Performed By: #### 5 7021-8 ####[facility] LABCLIA [id number] [place] [address] [place] Basophils/100 WBC (Bld) 0.5 % Normal [facility] Comment on above: Order Comment: Speci men Type: BLOOD SPECIMENOrdering Facility: [facility] Address: [address] [place] [address] Performed By: #### 5 7021-8 ####[facility] LABCLIA [id number] [place] [address] [place] Differential cell count method Nom (Bld) Auto Normal [facility] Comment on above: Order Comment: Speci men Type: BLOOD SPECIMENOrdering Facility: [facility] Address: [address] [place] [address] Performed By: #### 5 7021-8 ####[facility] LABCLIA [id number] [place] [address] [place] Eosinophils (Bld) [#/Vol] 0.29 10*3/uL Normal <0.46 [facility] Comment on above: Order Comment: Speci men Type: BLOOD SPECIMENOrdering Facility: [facility] Address: [address] [place] [address] Performed By: #### 5 7021-8 ####[facility] LABCLIA [id number] [place] [address] [place] Eosinophils/100 WBC (Bld) 3.9 % Normal [facility] Comment on above: Order Comment: Speci men Type: BLOOD SPECIMENOrdering Facility: [facility] Address: [address] [place] [address] Performed By: #### 5 7021-8 ####[facility] LABCLIA [id number] [place] [address] [place] Erythrocyte distribution width (RBC) [Ratio] 12.1 % Normal 11.5-15.0 [facility] Comment on above: Order Comment: Speci men Type: BLOOD SPECIMENOrdering Facility: [facility] Address: [address] [address] Performed By: #### 5 7021-8 ####[facility] LABIA [id number] [place] [address] [place] Hematocrit (Bld) [Volume fraction] 43.5 % Normal 36.0-46.0 [facility] Comment on above: Order Comment: Speci men Type: BLOOD SPECIMENOrdering Facility: [facility] Address: [address] [address] Performed By: #### 5 7021-8 ####[facility] LABIA [id number] [place] [address] [place] Hemoglobin (Bld) [Mass/Vol] 14.9 g/dL Normal 11.5-15.5 [facility] Comment on above: Order Comment: Speci men Type: BLOOD SPECIMENOrdering Facility: [facility] Address: [address] [place] [address] Performed By: #### 5 7021-8 ####[facility] LABIA [id number] [place] [address] [place] Immature granulocytes (Bld) [#/Vol] 0.03 10*3/uL Normal <0.10 [facility] Comment on above: Order Comment: Speci men Type: BLOOD SPECIMENOrdering Facility: [facility] Address: [address] [place] [address] Performed By: #### 5 7021-8 ####[facility] LABIA [id number] [place] [address] [place] Immature granulocytes/100 WBC (Bld) 0.4 % Normal [facility] Comment on above: Order Comment: Speci men Type: BLOOD SPECIMENOrdering Facility: [facility] Address: [address] [address] Performed By: #### 5 7021-8 ####[facility] LABCLIA [id number] [place] [address] [place] Lymphocytes (Bld) [#/Vol] 1.71 10*3/uL Normal 1.00-4.00 [facility] Comment on above: Order Comment: Speci men Type: BLOOD SPECIMENOrdering Facility: [facility] Address: [address] [address] Performed By: #### 5 7021-8 ####[facility] LABIA [id number] [place] [address] [place] Lymphocytes/100 WBC (Bld) 23.2 % Normal [facility] Comment on above: Order Comment: Speci men Type: BLOOD SPECIMENOrdering Facility: [facility] Address: [address] [place] [address] Performed By: #### 5 7021-8 ####[facility] LABIA [id number] [place] [address] [place] MCH (RBC) [Entitic mass] 34.1 pg High 26.0-34.0 [facility] Comment on above: Order Comment: Speci men Type: BLOOD SPECIMENOrdering Facility: [facility] Address: [address] [address] Performed By: #### 5 7021-8 ####[facility] LABCLIA [id number] [place] [address] [place] MCHC (RBC) [Mass/Vol] 34.3 g/dL Normal 30.5-36.0 [facility] Comment on above: Order Comment: Speci men Type: BLOOD SPECIMENOrdering Facility: [facility] Address: [address] [place] [address] Performed By: #### 5 7021-8 ####[facility] LABCLIA [id number] [place] [address] [place] MCV (RBC) [Entitic vol] 99.5 fL Normal 80.0-100.0 [facility] Comment on above: Order Comment: Speci men Type: BLOOD SPECIMENOrdering Facility: [facility] Address: [address] [place] [address] Performed By: #### 5 7021-8 ####[facility] LABIA [id number] [place] [address] [place] Monocytes (Bld) [#/Vol] 0.57 10*3/uL Normal <0.87 [facility] Comment on above: Order Comment: Speci men Type: BLOOD SPECIMENOrdering Facility: [facility] Address: [address] [place] [address] Performed By: #### 5 7021-8 ####[facility] LABIA [id number] [place] [address] [place] Monocytes/100 WBC (Bld) 7.7 % Normal [facility] Comment on above: Order Comment: Speci men Type: BLOOD SPECIMENOrdering Facility: [facility] Address: [address] [place] [address] Performed By: #### 5 7021-8 ####[facility] LABIA [id number] [place] [address] [place] Neutrophils (Bld) [#/Vol] 4.73 10*3/uL Normal 1.45-7.50 [facility] Comment on above: Order Comment: Speci men Type: BLOOD SPECIMENOrdering Facility: [facility] Address: [address] [place] [address] Performed By: #### 5 7021-8 ####[facility] LABIA [id number] [place] [address] [place] Neutrophils/100 WBC (Bld) 64.3 % Normal [facility] Comment on above: Order Comment: Speci men Type: BLOOD SPECIMENOrdering Facility: [facility] Address: [address] [place] [address] Performed By: #### 5 7021-8 ####[facility] LABCLIA [id number] [place] [address] [place] Nucleated RBC (Bld) [#/Vol] 10*3/uL Normal <0.01 [facility] Comment on above: Order Comment: Speci men Type: BLOOD SPECIMENOrdering Facility: [facility] Address: [address] [place] [address] Performed By: #### 5 7021-8 ####[facility] LABIA [id number] [place] [address] [place] Nucleated RBC/100 WBC (Bld) [Ratio] 0.0 /100 WBC Normal [facility] Comment on above: Order Comment: Speci men Type: BLOOD SPECIMENOrdering Facility: [facility] Address: [address] [place] [address] Performed By: #### 5 7021-8 ####[facility] LABCLIA [id number] [place] [address] [place] Platelet mean volume (Bld) [Entitic vol] 9.6 fL Normal 9.0-12.7 [facility] Comment on above: Order Comment: Speci men Type: BLOOD SPECIMENOrdering Facility: [facility] Address: [address] [place] [address] Performed By: #### 5 7021-8 ####[facility] LABCLIA [id number] [place] [address] [place] Platelets (Bld) [#/Vol] 277 10*3/uL Normal 150-400 [facility] Comment on above: Order Comment: Speci men Type: BLOOD SPECIMENOrdering Facility: [facility] Address: [address] [place] [address] Performed By: #### 5 7021-8 ####[facility] LABCLIA [id number] [place] [address] [place] RBC (Bld) [#/Vol] 4.37 10*6/uL Normal 3.90-5.20 [facility] Comment on above: Order Comment: Speci men Type: BLOOD SPECIMENOrdering Facility: [facility] Address: [address] [place] [address] Performed By: #### 5 7021-8 ####[facility] LABCLIA [id number] [place] [address] [place] WBC (Bld) [#/Vol] 7.37 10*3/uL Normal 3.70-11.00 [facility] Comment on above: Order Comment: Speci men Type: BLOOD SPECIMENOrdering Facility: [facility] Address: [address] [place] [address] Performed By: #### 5 7021-8 ####[facility] LABCLIA [id number] [place] [address] [place] Basophils (Bld) [#/Vol] 0.04 10*3/uL <0.11 k/uL [facility] Basophils/100 WBC (Bld) 0.5 % [facility] Differential cell count method Nom (Bld) Auto [facility] Eosinophils (Bld) [#/Vol] 0.29 10*3/uL <0.46 k/uL [facility] Eosinophils/100 WBC (Bld) 3.9 % [facility] Erythrocyte distribution width (RBC) [Ratio] 12.1 % 11.5 - 15.0 % [facility] Hematocrit (Bld) [Volume fraction] 43.5 % 36.0 - 46.0 % [facility] Hemoglobin (Bld) [Mass/Vol] 14.9 g/dL 11.5 - 15.5 g/dL [facility] Immature granulocytes (Bld) [#/Vol] 0.03 10*3/uL <0.10 k/uL [facility] Immature granulocytes/100 WBC (Bld) 0.4 % [facility] Lymphocytes (Bld) [#/Vol] 1.71 10*3/uL 1.00 - 4.00 k/uL [facility] Lymphocytes/100 WBC (Bld) 23.2 % [facility] MCH (RBC) [Entitic mass] 34.1 pg High 26.0 - 34.0 pg [facility] MCHC (RBC) [Mass/Vol] 34.3 g/dL 30.5 - 36.0 g/dL [facility] MCV (RBC) [Entitic vol] 99.5 fL 80.0 - 100.0 fL [facility] Monocytes (Bld) [#/Vol] 0.57 10*3/uL <0.87 k/uL [facility] Monocytes/100 WBC (Bld) 7.7 % [facility] Neutrophils (Bld) [#/Vol] 4.73 10*3/uL 1.45 - 7.50 k/uL [facility] Neutrophils/100 WBC (Bld) 64.3 % [facility] Nucleated RBC (Bld) [#/Vol] <0.01 k/uL [facility] Nucleated RBC/100 WBC (Bld) [Ratio] 0.0 /100 WBC [facility] Platelet mean volume (Bld) [Entitic vol] 9.6 fL 9.0 - 12.7 fL [facility] Platelets (Bld) [#/Vol] 277 10*3/uL 150 - 400 k/uL [facility] RBC (Bld) [#/Vol] 4.37 10*6/uL 3.90 - 5.2 0 m/uL [facility] WBC (Bld) [#/Vol] 7.37 10*3/uL 3.70 - 11. 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 A couple times a month she gets [...] (more content not included)... Normal [facility] 07-07-2022 CNPN Telephone ([facility]) SYDNIEKAILA Emily ([id number]) 1980 F Date Time Provider Department 07/07/22 GLENROY SYED NEVÍCTORFV During your visit today, we recorded the following information about you: Cinthya Salgado 07/07/2022 8:52 AM Signed Received medical records from [facility]. Uploaded to chart and forwarded for [...] Encounter Status:Closed by CINTHYA SALGADO on 07/19/22 [facility] Centromere Ab IF Ql (S)on Centromere Ab Qn (S) <0.2 Normal <1.0 [facility] Comment on above: Order Comment: Speci men Type: BLOOD SPECIMENOrdering Facility: [facility] Address: [address] [place] [address] [place] [address] Result Comment: Anti -centromere antibody is used as in aid in diagnosis of systemic sclerosis. Clinical correlation is required. Test Methodology: Multiplex flow immunoassay. Performed By: #### 2 9374-6, 64376-8, 11806-1, 78208-6, 78270-4, ANAIFR, 56889-1, 55230-9, 48814-0, 79286-8 ####[facility] LABCLIA [id number] [place] [address] [place] CENTROMERE AB QUAL Negative Normal Negative [facility] Comment on above: Order Comment: Speci men Type: BLOOD SPECIMENOrdering Facility: [facility] Address: [address] [place] [address] Performed By: #### 2 9374-6, 52803-3, 15153-7, 30612-3, 08606-8, ANAIFR, 61202-9, 96555-9, 04786-7, 25544-4 ####[facility] LABIA [id number] [place] [address] [place] Chromatin Ab Qnon 07-07-2022 CHROMATIN AB QUAL Negative Normal Negative [facility] Comment on above: Order Comment: Speci men Type: BLOOD SPECIMENOrdering Facility: [facility] Address: [address] [place] [address] Performed By: #### 2 9374-6, 83628-3, 92318-2, 53494-2, 64011-7, ANAIFR, 73150-0, 79134-5, 54849-4, 49400-4 ####[facility] LABIA [id number] [place] [address] [place] Chromatin Ab SerPl-aCncon Chromatin Ab Qn <0.2 Normal <1.0 [facility] Comment on above: Order Comment: Speci men Type: BLOOD SPECIMENOrdering Facility: [facility] Address: [address] [place] [address] Result Comment: Test Methodology: Multiplex flow immunoassay. Performed By: #### 2 9374-6, 29037-4, 50104-6, 25227-6, 54015-5, ANAIFR, 51516-9, 58914-6, 53057-1, 34706-2 ####[facility] LABCLIA [id number] [place] [address] [place] KAMRAN Jo1 Ab Ser-aCncon 2021 Radha-1 extractable nuclear Ab Qn (S) <0.2 Normal <1.0 [facility] Comment on above: Order Comment: Speci men Type: BLOOD SPECIMENOrdering Facility: [facility] Address: [address] [place] [address] Performed By: #### 2 9374-6, 45327-5, 65408-6, 20251-6, 25137-6, ANAIFR, 78142-7, 50964-2, 22426-3, 92344-5 ####[facility] LABIA [id number] [place] [address] [place] KAMRAN DATA COMMUNICATIONS SOFTWARE CONSULTANT Ab Ser-aCncon 2021 Ribonucleoprotein extractable nuclear Ab Qn (S) <0.2 Normal <1.0 [facility] Comment on above: Order Comment: Speci men Type: BLOOD SPECIMENOrdering Facility: [facility] Address: [address] [place] [address] Performed By: #### 2 9374-6, 63388-8, 58519-2, 01729-4, 50720-1, ANAIFR, 56985-5, 01103-3, 85989-9, 43657-8 ####[facility] LABIA [id number] [place] [address] [place] KMARAN SM IgG Ser-aCncon 2021 Osborne extractable nuclear IgG Qn (S) <0.2 Normal <1.0 [facility] Comment on above: Order Comment: Speci men Type: BLOOD SPECIMENOrdering Facility: [facility] Address: [address] [place] [address] Performed By: #### 2 9374-6, 56599-7, 90262-2, 15741-5, 68178-1, ANAIFR, 15810-1, 00336-1, 61211-6, 51785-7 ####[facility] LABCLIA [id number] [address] [place] KAMRAN SS-A Ab Ser-aCncon 07-07 Sjogrens syndrome-A extractable nuclear Ab Qn (S) 0.3 AI Normal <1.0 [facility] Comment on above: Order Comment: Speci men Type: BLOOD SPECIMENOrdering Facility: [facility] Address: [address] [place] [address] Result Comment: Test Methodology: Multiplex flow immunoassay. Performed By: #### 2 9374-6, 07803-8, 65066-9, 57373-8, 37997-6, ANAIFR, 63876-2, 41260-2, 05425-4, 35969-8 ####[facility] LABIA [id number] [address] OF [place] KAMRAN SS-B Ab Ser-aCncon 07-07 Sjogrens syndrome-B extractable nuclear Ab Qn (S) <0.2 Normal <1.0 [facility] Comment on above: Order Comment: Speci men Type: BLOOD SPECIMENOrdering Facility: [facility] Address: [address] [place] [address] Result Comment: Anti -SSB (anti-La) antibody is used as an aid in diagnosis of a variety of systemic autoimmune diseases, especially for Sjogren's syndrome and systemic lupus erythematosus. Clinical correlation is required. Test Methodology: Multiplex flow immunoassay. Performed By: #### 2 9374-6, 74463-9, 33693-2, 42062-7, 73310-3, ANAIFR, 97979-3, 94296-6, 00731-9, 45552-6 ####[facility] LABCLIA [id number] [address] OF [facility] Radha-1 extractable nuclear Ab Qn (S)on 07-07-2022 RADHA 1 ANTIBODY QUAL Negative Normal Negative [facility] Comment on above: Order Comment: Bryan hernández Type: BLOOD SPECIMENOrdering Facility: [facility] Address: [address] [place] [address] Result Comment: Anti -RADHA-1 antibody is used as an aid in diagnosis of polymyositis and dermatomyositis especially with pulmonary involvement. A negative result cannot rule out polymyositis or dermatomyositis. Clinical correlation is required. Test Methodology: Multiplex flow immunoassay. Performed By: #### 2 9374-6, 84399-8, 18354-0, 07549-9, 07426-2, ANAIFR, 10817-1, 88335-9, 39327-7, 94905-2 ####[facility] LABCLIA [id number] [place] [address] [place] Ribonucleoprotein extractabl e nuclear Ab Qn (S)on 07-07-2022 ANTI-DATA COMMUNICATIONS SOFTWARE CONSULTANT QUAL Negative Normal Negative [facility] Comment on above: Order Comment: Bryan hernández Type: BLOOD SPECIMENOrdering Facility: [facility] Address: [address] [place] [address] Performed By: #### 2 9374-6, 36941-8, 30808-3, 23196-0, 89498-7, ANAIFR, 19224-5, 10222-7, 77151-5, 02309-5 ####[facility] LABIA [id number] [address] [place] RIBOSOMAL DATA COMMUNICATIONS SOFTWARE CONSULTANT QUAL Negative Normal Negative [facility] Comment on above: Order Comment: Bryan hernández Type: BLOOD SPECIMENOrdering Facility: [facility] Address: [address] [place] [address] Result Comment: Anti -Ribosomal RNA (Ribosomal P) antibody is used as an aid in diagnosis of systemic autoimmune diseases especially systemic lupus erythematosus and mixed connective tissue disease. Cross-reactivity with Anti-osborne antibody is not uncommon. Clinical correlation is required. Test Methodology: Multiplex flow immunoassay. Performed By: #### 2 9374-6, 87523-3, 02955-6, 77353-0, 66959-8, ANAIFR, 84216-2, 53544-0, 03560-3, 00548-3 ####[facility] LABIA [id number] [place] [address] [place] SCL-70 extractable nuclear I gG IA Qn (S)on 07-07-2022 SCLERODERMA AB QUAL Negative Normal Negative [facility] Comment on above: Order Comment: Speci men Type: BLOOD SPECIMENOrdering Facility: [facility] Address: [address] [place] [address] Performed By: #### 2 9374-6, 40349-9, 00602-1, 39351-5, 76666-6, ANAIFR, 31466-0, 49728-3, 95635-7, 22714-7 ####[facility] [id number] [address] [place] SCLERODERMA IGG AB <0.2 Normal <1.0 [facility] Comment on above: Order Comment: Speci men Type: BLOOD SPECIMENOrdering Facility: [facility] Address: [address] [place] [address] Result Comment: Scl- 70/Scleroderma antibody test is used as an aid in diagnosis of systemic sclerosis especially the diffuse cutaneous form. A negative result cannot rule out systemic sclerosis. The final interpretation should consider clinical picture and other test results such as anti-centromere antibody. Test Methodology: Multiplex flow immunoassay. Performed By: #### 2 9374-6, 20895-3, 86434-4, 73248-6, 06820-6, ANAIFR, 87743-5, 74474-6, 19545-2, 83296-2 ####[facility] LABIA [id number] [place] [address] [place] Sjogrens syndrome-A extracta ble nuclear Ab Qn (S)on 07-07-2022 SSA ANTIBODY QUAL Negative Normal Negative [facility] Comment on above: Order Comment: Speci men Type: BLOOD SPECIMENOrdering Facility: [facility] Address: [address] [place] [address] Performed By: #### 2 9374-6, 54405-0, 70028-3, 62078-3, 76767-4, ANAIFR, 20950-5, 56046-4, 04173-0, 98886-0 ####[facility] LABCLIA [id number] [place] [address] [place] Sjogrens syndrome-B extracta ble nuclear Ab Qn (S)on 07-07-2022 SSB ANTIBODY QUAL Negative Normal Negative [facility] Comment on above: Order Comment: Speci men Type: BLOOD SPECIMENOrdering Facility: [facility] Address: [address] [place] [address] Performed By: #### 2 9374-6, 82884-0, 03867-4, 14028-6, 56351-5, ANAIFR, 95306-9, 39096-7, 67399-1, 52386-2 ####[facility] LABCLIA [id number] [place] [address] [place] Osborne extractable nuclear Ig G Qn (S)on 07-07-2022 SM ANTIBODY QUAL Negative Normal Negative [facility] Comment on above: Order Comment: Speci men Type: BLOOD SPECIMENOrdering Facility: [facility] Address: [address] [place] [address] Result Comment: Anti -Sm (Osborne) antibody is used as an aid in diagnosis of systemic lupus erythematosus and its presence is associated with renal disease. A negative result cannot rule out systemic lupus erythematosus. Clinical correlation is required. Test Methodology: Multiplex flow immunoassay. Performed By: #### 2 9374-6, 94894-3, 78001-5, 20047-5, 88765-5, ANAIFR, 65276-7, 89697-3, 61571-9, 75498-2 ####[facility] LABCLIA [id number] [place] [id number] [place] TSH BLDon 07-07-2022 TSH Qn 0.824 m[IU]/L 0.270 - 4.200 mIU/L [facility] TSH SerPl-aCncon 07-07-2022 TSH Qn 0.824 m[IU]/L Normal 0.270-4.200 [facility] Comment on above: Order Comment: Speci men Type: BLOOD SPECIMENOrdering Facility: [facility] Address: [address] [place] [address] Result Comment: If t he patient is , TSH reference range varies by gestational period: First Trimester (weeks 9-12): 0.180-2.990 mIU/L Second Trimester: 0.110-3.980 mIU/L Third Trimester: 0.480-4.710 mIU/L Eliezer Bangura et al. A Practical Approach for the Verifications and Determination of Site- and Trimester-Specific Reference Intervals for Thyroid Function tests in . Thyroid, 2019:29:3:412-420. Rob Forrest, et al. 2017 Guidelines of the [place] [employer] for the Diagnosis and Management of Thyroid Disease during and the . Thyroid, 2017:27:3:315-389. Performed By: #### 3 -2132-04 ####[facility] LABIA [id number] [place] [id number] [place] VITAMIN B12 BLOODon 07-07-20 22 Cobalamin (Vitamin B12) [Mass/Vol] 618 pg/mL 232 - 1,245 pg/mL [facility] Vit B12 SerPl-mCncon 022 Cobalamin (Vitamin B12) [Mass/Vol] 618 pg/mL Normal 232-1245 [facility] Comment on above: Order Comment: Speci men Type: BLOOD SPECIMENOrdering Facility: [facility] Address: [address] [place] [address] Performed By: #### 3 016-3, 2132-04 ####[facility] LABIA [id number] [place] [address] [place] dsDNA Ab Ser IA-aCncon 07-07 DNA double strand Ab IA Qn (S) <12 Normal <30 [facility] Comment on above: Order Comment: Speci men Type: BLOOD SPECIMENOrdering Facility: [facility] Address: [address] [place] [address] [place] [address] Result Comment: Nega tive for ds DNA Antibodies. <30 IU/mL Negative 30-74 IU/mL Equivocal >74 IU/mL Positive Performed By: #### 2 9374-6, 36595-7, 47600-4, 67147-5, 96856-1, ANAIFR, 51837-4, 08761-9, 10695-6, 99005-0 ####[facility] LABCLIA [id number] [address] OF [place] HLA B 27on 04-26-2022 HLA-B27 Negative Normal [facility] Comment on above: Result Comment: HLA- B*27 Negative B27 allele interpretation for all loci based on IMGT/HLA database version 3.44 This test was developed and its performance characteristics determined by [employer]. It has not been cleared or approved by the Food and Drug Administration. [facility] CLIA ID Number [id number] . This test was performed using PCR (Polymerase Chain Reaction)/SSOP (Sequence Specific Oligonucleotide Probes) technique. SBT (Sequence Based Typing) and/or SSP (Sequence Specific Primers) may be used as supplemental methods when necessary. Please contact [facility] Customer Service at if you have any questions. . Director of [facility] Laboratory Dr Abdiaziz Shook, PhD Performed By: #### C VDAGA #### [facility] [address] [place] [address] [address] Christos Fallon 25-HYDROXY VIT D (D2+D3 [facility] ) LC/MS-MSon 04-23-2022 25-Hydroxy, Vitamin D 26 ng/mL Critically low [facility] Comment on above: Result Comment: Refe rence Range: All Ages: Target levels 30 - 100 Performed By: #### C MP, TSH, HSTROPN #### [facility] [address] [place] [address] Dr. Christos Fallon 25-Hydroxy, Vitamin D-2 <1.[address] [facility] Comment on above: Result Comment: This test was developed and its performance characteristics determined by [facility]. It has not been cleared or approved by the Food and Drug Administration. Performed By: #### C MP, TSH, HSTROPN #### [facility] [address] [place] [address] Dr. Christos Fallon 25-Hydroxy, Vitamin D-3 26 ng/mL Normal [facility] Comment on above: Result Comment: This test was developed and its performance characteristics determined by [facility]. It has not been cleared or approved by the Food and Drug Administration. Performed By: #### C MP, TSH, HSTROPN #### [facility] [address] [place] [address] Dr. Christos Fallon REVERSE T3on 04-20-2022 Reverse T3, Serum 11.2 ng/dL Normal 9.2-24.1 [facility] Comment on above: Result Comment: This test was developed and its performance characteristics determined by [facility]. It has not been cleared or approved by the Food and Drug Administration. Performed By: #### C VDAGA #### [facility] [address] [place] [address] Dr. Christos Fallon THYROID ANTIBODIESon 022 Thyroglobulin Antibody <1.0 Normal 0.0-0.[address] [facility] Comment on above: Result Comment: Thyr oglobulin Antibody measured by [employer] Methodology Performed By: #### C VDAGA #### [facility] [address] [place] [address] Dr. Christos Fallon Thyroid Peroxidase (TPO) Ab 11 IU/mL Normal 0-34 [facility] Comment on above: Performed By: #### C VDAGA #### [facility] [address] [place] [address] Dr. Christos Fallon ANTISTREPTOLYSIN O AB (ASO)o n 04-16-2022 Antistreptolysin O Ab 21.8 IU/mL Normal 0.0-200.[address] [facility] Comment on above: Performed By: #### C MP, TSH, HSTROPN #### [facility] [address] [place] [address] Dr. Christos Fallon T3, TOTAL (TRIIODOTHYRONINE) on 04-16-2022 T3, TOTAL 115 ng/dL Normal 71-[address] [facility] Comment on above: Performed By: #### C MP, TSH, HSTROPN #### [facility] [address] [place] [address] Dr. Christos Fallon FREE T3on 04-14-2022 FREE T3 2.46 pg/mlL Normal 2.18-3.[address] [facility] Comment on above: Performed By: #### C MP, TSH, HSTROPN #### [facility] [address] [place] [address] Dr. Christos Fallon FREE T4on 04-14-2022 Free T4 [Mass/Vol] 0.88 ng/dL Normal 0.76-1.46 [facility] Comment on above: Performed By: #### C VDAGA #### [facility] [address] [place] [address] Dr. Christos Fallon TSHon 04-14-2022 TSH 1.027 uIU/mL Normal 0.358-3.740 [facility] Comment on above: Performed By: #### C MP, TSH, HSTROPN #### [facility] [address] [place] [address] Dr. Christos Fallon CBC AUTO DIFFon 03-22-2022 BASO # 0.1 103/ul Normal 0.0-0.[address] [facility] Comment on above: Performed By: #### C MP, TSH, HSTROPN #### [facility] [address] [place] [address] Dr. Christos Fallon Basophils/100 WBC (Bld) 0.7 % Normal 0.2-2.[address] [facility] Comment on above: Performed By: #### C MP, TSH, HSTROPN #### [facility] [address] [place] [address] Dr. Christos Fallon EO # 0.3 103/ul Normal 0.0-0.[address] [facility] Comment on above: Performed By: #### C MP, TSH, HSTROPN #### [facility] [address] [place] [address] Dr. Christos Fallon Eosinophils/100 WBC (Bld) 3.4 % Normal 0.9-7.[address] [facility] Comment on above: Performed By: #### C MP, TSH, HSTROPN #### [facility] [address] [place] [address] Dr. Christos Fallon Erythrocyte distribution width (RBC) [Ratio] 12.5 % Normal 11.0-15.0 [facility] Comment on above: Performed By: #### C MP, TSH, HSTROPN #### [facility] [address] [place] [address] Dr. Christos Fallon Hematocrit (Bld) [Volume fraction] 41.3 % Normal 36.0-48.[address] [facility] Comment on above: Performed By: #### C MP, TSH, HSTROPN #### [facility] [address] [place] [address] Dr. Christos Fallon Hemoglobin (Bld) [Mass/Vol] 14.2 g/dL Normal 12.0-16.[address] [facility] Comment on above: Performed By: #### C MP, TSH, HSTROPN #### [facility] [address] [place] [address] Dr. Christos Fallon IG # 0.03 10e3/ul Normal 0.00-0.03 [facility] Comment on above: Performed By: #### C MP, TSH, HSTROPN #### [facility] [address] [place] [address] Dr. Christos Fallon IG % 0.4 % Normal 0.0-0.5 [facility] Comment on above: Performed By: #### C MP, TSH, HSTROPN #### [facility] [address] [place] [address] Dr. Christos Fallon LYMPH # 2.3 103/ul Normal 1.2-3.8 [facility] Comment on above: Performed By: #### C MP, TSH, HSTROPN #### [facility] [address] [place] [address] Dr. Christos Fallon Lymphocytes/100 WBC (Bld) 31.3 % Normal 20.5-60.[address] [facility] Comment on above: Performed By: #### C MP, TSH, HSTROPN #### [facility] [address] [place] [address] Dr. Christos Fallon MANUAL DIFF REQ NO Normal [facility] Comment on above: Performed By: #### C MP, TSH, HSTROPN #### [facility] [address] [place] [address] Dr. Christos Fallon MCH (RBC) [Entitic mass] 34.8 pg Critically high 26.7-34.[address] [facility] Comment on above: Performed By: #### C MP, TSH, HSTROPN #### [facility] [address] [place] [address] Dr. Christos Fallon MCHC (RBC) [Mass/Vol] 34.4 g/dL Normal 29.9-35.2 [facility] Comment on above: Performed By: #### C MP, TSH, HSTROPN #### [facility] [address] [place] [address] Dr. Christos Fallon MCV (RBC) [Entitic vol] 101.2 fL Critically high 81.0-99.[address] [facility] Comment on above: Performed By: #### C MP, TSH, HSTROPN #### [facility] [address] [place] [address] Dr. Christos Fallon MONO # 0.9 103/ul Critically high 0.3-0.8 [facility] Comment on above: Performed By: #### C MP, TSH, HSTROPN #### [facility] [address] [place] [address] Dr. Christos Fallon Monocytes/100 WBC (Bld) 12.0 % Normal 1.7-12.[address] [facility] Comment on above: Performed By: #### C MP, TSH, HSTROPN #### [facility] [address] [place] [address] [address] Christos Fallon NEUT # 3.9 103/ul Normal 1.4-6.[address] [facility] Comment on above: Performed By: #### C MP, TSH, HSTROPN #### [facility] [address] [place] [address] [address] Christos Fallon Neutrophils/100 WBC (Bld) 52.2 % Normal 43.0-75.[address] [facility] Comment on above: Performed By: #### C MP, TSH, HSTROPN #### [facility] [address] [place] [address] Dr. Christos Fallon Platelet mean volume (Bld) [Entitic vol] 9.7 fL Normal 9.5-13.[address] [facility] Comment on above: Performed By: #### C MP, TSH, HSTROPN #### [facility] [address] [place] [address] Dr. Christos Fallon PLT 296 103/ul Normal 150-[address] [facility] Comment on above: Performed By: #### C MP, TSH, HSTROPN #### [facility] [address] [place] [address] [address] Christos Fallon RBC 4.08 106/ul Critically low 4.20-5.40 [facility] Comment on above: Performed By: #### C MP, TSH, HSTROPN #### [facility] [address] [place] [address] Dr. Christos Fallon WBC 7.4 103/ul Normal 4.0-11.0 [facility] Comment on above: Performed By: #### C MP, TSH, HSTROPN #### [facility] [address] [place] [address] HEAD WO CONon [...] PAL WETZEL Date: 2022-03-22 17:41 Normal [facility] ER URINE PROFILEon 2 Bilirubin Ql (U) Negative Normal NEGATIVE [facility] Comment on above: Performed By: #### C VDAGA #### [facility] [address] [place] [address] Dr. Christos Fallon Clarity (U) CLOUDY Abnormal CLEAR [facility] Comment on above: Performed By: #### C VDAGA #### [facility] [address] [place] [address] Dr. Christos Fallon Color (U) LT. YELLOW Normal YELLOW [facility] Comment on above: Performed By: #### C VDAGA #### [facility] [address] [place] [address] Dr. Christos SOSAPercy A micrscopic examination will be performed if indicated. Normal [facility] Comment on above: Performed By: #### C VDAGA #### [facility] [address] [place] [address] Dr. Christos Fallon Glucose Ql (U) Negative Normal NEGATIVE [facility] Comment on above: Performed By: #### C VDAGA #### [facility] [address] [place] [address] Dr. Christos Fallon Hemoglobin Ql (U) Negative Normal NEGATIVE [facility] Comment on above: Performed By: #### C VDAGA #### [facility] [address] [place] [address] Dr. Christos Fallon Ketones Ql (U) Negative Normal NEGATIVE [facility] Comment on above: Performed By: #### C VDAGA #### [facility] [address] [place] [address] Dr. Christos Fallon LEUKOCYTES Negative Normal NEGATIVE [facility] Comment on above: Performed By: #### C VDAGA #### [facility] [address] [place] [id number] Dr. Christos Fallon Nitrite Ql (U) Negative Normal NEGATIVE [facility] Comment on above: Performed By: #### C VDAGA #### [facility] [address] [place] [address] Dr. Christos Fallon pH (U) 6.0 [pH] Normal 5-[address] [facility] Comment on above: Performed By: #### C VDAGA #### [facility] [address] [place] [address] Dr. Christos Fallon SPEC GRAVITY 1.010 Normal 1.005-<=1.[address] [place] [address] Comment on above: Performed By: #### C VDAGA #### [facility] [address] [place] [address] Dr. Christos Fallon UA PROTEIN Negative Normal NEGATIVE/ TRACE [facility] Comment on above: Performed By: #### C VDAGA #### [facility] [address] [place] [address] Dr. Christos Fallon UR MICRO IND NOT INDICATED Normal [facility] Comment on above: Performed By: #### C VDAGA #### [facility] [address] [place] [address] Dr. Christos Fallon Urobilinogen Qn (U) 0.2 {Peyman'U}/dL Normal 0.2 - 1. [address] [facility] Comment on above: Performed By: #### C VDAGA #### [facility] [address] [place] [address] Dr. Christos Fallon PROF 14(COMP METB)on 022 Albumin [Mass/Vol] 3.6 g/dL Normal 3.4-5.0 [facility] Comment on above: Performed By: #### C MP, HSTROPN, TSH #### [facility] [address] [address] [address] Christos Fallon Albumin/Globulin [Mass ratio] 0.9 {ratio} Normal [facility] Comment on above: Performed By: #### C MP, HSTROPN, TSH #### [facility] [address] [place] [address] Dr. Christos Fallon ALP [Catalytic activity/Vol] 83 U/L Normal 46-[address] [facility] Comment on above: Performed By: #### C MP, HSTROPN, TSH #### [facility] [address] [place] [address] Dr. Christos Fallon ALT [Catalytic activity/Vol] 32 U/L Normal 14-[address] [facility] Comment on above: Performed By: #### C MP, HSTROPN, TSH #### [facility] [address] [place] [address] Dr. Christos Fallon Anion gap [Moles/Vol] 15.4 mmol/L Normal [facility] Comment on above: Performed By: #### C MP, HSTROPN, TSH #### [facility] [address] [place] [address] Dr. Christos Fallon AST [Catalytic activity/Vol] 15 U/L Normal 15-[address] [facility] Comment on above: Performed By: #### C MP, HSTROPN, TSH #### [facility] [address] [place] [address] Dr. Christos Fallon Bilirubin [Mass/Vol] 0.3 mg/dL Normal 0.2-1.[address] [facility] Comment on above: Performed By: #### C MP, HSTROPN, TSH #### [facility] [address] [place] [address] Dr. Christos Fallon Calcium [Mass/Vol] 8.9 mg/dL Normal 8.5-10.1 [facility] Comment on above: Performed By: #### C MP, HSTROPN, TSH #### [facility] [address] [address] [address] Christos Fallon Chloride [Moles/Vol] 102 mmol/L Normal 98-107 [facility] Comment on above: Performed By: #### C RAY, HSTROPN, TSH #### [facility] [address] [place] [address] Dr. Christos Fallon CO2 [Moles/Vol] 22.7 mmol/L Normal 21.0-32.0 [facility] Comment on above: Performed By: #### C RAY, HSTROPN, TSH #### [facility] [address] [place] [address] Dr. Christos Fallon Creatinine [Mass/Vol] 0.97 mg/dL Normal 0.55-1.[address] [facility] Comment on above: Performed By: #### C MP, HSTROPN, TSH #### [facility] [address] [place] [address] Dr. Christos Fallon EGFR-AF CUBAN >60 Normal >=60 [facility] Comment on above: Performed By: #### C MP, HSTROPN, TSH #### [facility] [address] [place] [address] Dr. Christos Fallon EGFR-NON AF CUBAN >60 Normal >=[address] [facility] Comment on above: Performed By: #### C MP, HSTROPN, TSH #### [facility] [address] [place] [address] Dr. Christos Fallon Globulin (S) [Mass/Vol] 3.8 g/dL Normal [facility] Comment on above: Performed By: #### C MP, HSTROPN, TSH #### [facility] [address] [place] [address] Dr. Christos Fallon Glucose [Mass/Vol] 104 mg/dL Normal 74-106 [facility] Comment on above: Performed By: #### C MP, HSTROPN, TSH #### [facility] [address] [place] [address] Dr. Christos Fallon Potassium [Moles/Vol] 4.1 mmol/L Normal 3.5-5.[address] [facility] Comment on above: Performed By: #### C MP, HSTROPN, TSH #### [facility] [address] [address] [address] Christos Fallon Protein [Mass/Vol] 7.4 g/dL Normal 6.4-8.2 [facility] Comment on above: Performed By: #### C MP, HSTROPN, TSH #### [facility] [address] [address] [address] Christos Fallon Sodium [Moles/Vol] 136 mmol/L Normal 136-145 [facility] Comment on above: Performed By: #### C MP, HSTROPN, TSH #### [facility] [address] [place] [address] Dr. Christos Fallon Urea nitrogen [Mass/Vol] 17.0 mg/dL Normal 7.0-18.[address] [facility] Comment on above: Performed By: #### C MP, HSTROPN, TSH #### [facility] [address] [address] [address] Christos Fallon Urea nitrogen/Creatinine [Mass ratio] 17.5 mg/mg Normal [facility] Comment on above: Performed By: #### C MP, HSTROPN, TSH #### [facility] [address] [place] [address] Dr. Christos Fallon TROPONIN, HIGH SENSITIVITYon 03-22-2022 HSTROP <4.0 Normal 4.0-51.[address] [facility] Comment on above: Result Comment: CUT- OFF POINTS HAVE BEEN ESTABLISHED BASED ON THE FOURTH UNIVERSAL DEFINITIONS OF MYOCARDIAL INFARCTION. THE UPPER REFERENCE LIMIT (URL) OF TROPONIN, DEFINED THE 99TH PERCENTILE OF cTnI DISTRIBUTION IN A REFERENCE POPULATION, HAS BEEN CONFIRMED THE DECISION THRESHOLD FOR [place] DIAGNOSIS. Performed By: #### C MP, HSTROPN, TSH #### [facility] [address] [place] [address] Dr. Christos Fallon TSHon 03-22-2022 TSH 0.854 uIU/mL Normal 0.358-3.740 [facility] Comment on above: Performed By: #### C MP, HSTROPN, TSH #### [facility] [address] [place] [address] Dr. Christos Fallon ASYMPTOMATIC COVID-19 ANTIGE Non 03-03-2022 EUA Statement SEE BELOW Normal [facility] Comment on above: Result [...] sooner. Performed By: #### C VDAGA #### [facility] [address] [place] [address] Dr. Christos Fallon SARS-CoV-2 (COVID-19) RNA LEROY+probe Ql (Unsp spec) Positive Critically abnormal NEGATIVE [facility] Comment on above: Result Comment: SARS -CoV-2 antigen present; does not rule out coinfection with other pathogens. Performed By: #### C VDAGA #### [facility] [address] [place] [address] Dr. Christos Fallon [facility]06 SARS-CoV-2 (COVID-19) RNA LEROY+probe Ql (Unsp spec) Detected Critically abnormal NOT DETECTED [facility] Comment on above: Result Comment: This test is not yet approved or cleared by the [place] FDA. When there are no FDA-approved or cleared tests available, and other criteria are met, FDA can make tests available under an emergency access mechanism called an Emergency Use Authorization (EUA). The EUA for this test is supported by the Speech Language Pathologist Travel of Health and Human Service's declaration that [...] By: #### C MP, TSH, HSTROPN #### [facility] [address] [place] [address] Dr. Christos Fallon CRPon 11-25-2021 CRP [Mass/Vol] mg/L Normal <=1.0 [facility] Comment on above: Performed By: #### C MP, TSH, HSTROPN #### [facility] [address] [place] [address] Dr. Christos Fallon VIT B12 AND FOLATEon 022 Cobalamin (Vitamin B12) [Mass/Vol] 329.0 pg/mL Normal 239.0-931.0 [facility] Comment on above: Performed By: #### C MP, TSH, HSTROPN #### [facility] [address] [place] [address] Dr. Christos Fallon FOLATE 8.50 ng/mL Normal >=2.76 [facility] Comment on above: Performed By: #### C MP, TSH, HSTROPN #### [facility] [address] [place] [address] Dr. Christos Fallon CBC AUTO DIFFon 11-19-2021 BASO # 0.1 103/ul Normal 0.0-0.1 [facility] Comment on above: Performed By: #### C BC #### [facility] [address] [place] [address] Dr. Christos Fallon Basophils/100 WBC (Bld) 0.8 % Normal 0.2-2.0 [facility] Comment on above: Performed By: #### C BC #### [facility] [address] [place] [address] Dr. Christos Fallon EO # 0.3 103/ul Normal 0.0-0.7 [facility] Comment on above: Performed By: #### C BC #### [facility] [address] [place] [address] Dr. Christos Fallon Eosinophils/100 WBC (Bld) 4.8 % Normal 0.9-7.[address] [facility] Comment on above: Performed By: #### C BC #### [facility] [address] [place] [address] Dr. Christos Fallon Erythrocyte distribution width (RBC) [Ratio] 12.2 % Normal 11.0-15.[address] [facility] Comment on above: Performed By: #### C BC #### [facility] [address] [place] [address] Dr. Christos Fallon Hematocrit (Bld) [Volume fraction] 41.9 % Normal 36.0-48.[address] [facility] Comment on above: Performed By: #### C BC #### [facility] [address] [place] [address] Dr. Christos Fallon Hemoglobin (Bld) [Mass/Vol] 14.2 g/dL Normal 12.0-16.[address] [facility] Comment on above: Performed By: #### C BC #### [facility] [address] [place] [address] Dr. Christos Fallon IG # 0.03 10e3/ul Normal 0.00-0.[address] [facility] Comment on above: Performed By: #### C BC #### [facility] [address] [place] [address] Dr. Christos Fallon IG % 0.5 % Normal 0.0-0.5 [facility] Comment on above: Performed By: #### C BC #### [facility] [address] [place] [address] Dr. Christos Fallon LYMPH # 1.5 103/ul Normal 1.2-3.8 [facility] Comment on above: Performed By: #### C BC #### [facility] [address] [place] [address] Dr. Christos Fallon Lymphocytes/100 WBC (Bld) 24.6 % Normal 20.5-60.[address] [facility] Comment on above: Performed By: #### C BC #### [facility] [address] [place] [address] Dr. Christos Fallon MANUAL DIFF REQ NO Normal [facility] Comment on above: Performed By: #### C BC #### [facility] [address] [place] [address] Dr. Christos Fallon MCH (RBC) [Entitic mass] 34.3 pg Critically high 26.7-34.[address] [facility] Comment on above: Performed By: #### C BC #### [facility] [address] [place] [address] Dr. Christos Fallon MCHC (RBC) [Mass/Vol] 33.9 g/dL Normal 29.9-35.[address] [facility] Comment on above: Performed By: #### C BC #### [facility] [address] [place] [address] Dr. Christos Fallon MCV (RBC) [Entitic vol] 101.2 fL Critically high 81.0-99.[address] [facility] Comment on above: Performed By: #### C BC #### [facility] [address] [place] [address] Dr. Christos Fallon MONO # 0.5 103/ul Normal 0.3-0.[address] [facility] Comment on above: Performed By: #### C BC #### [facility] [address] [place] [address] Dr. Christos Fallon Monocytes/100 WBC (Bld) 7.2 % Normal 1.7-12.[address] [facility] Comment on above: Performed By: #### C BC #### [facility] [address] [place] [address] Dr. Christos Fallon NEUT # 3.9 103/ul Normal 1.4-6.5 [facility] Comment on above: Performed By: #### C BC #### [facility] [address] [place] [address] Dr. Christos Fallon Neutrophils/100 WBC (Bld) 62.1 % Normal 43.0-75.[address] [facility] Comment on above: Performed By: #### C BC #### [facility] [address] [place] [address] Dr. Christos Fallon Platelet mean volume (Bld) [Entitic vol] 9.1 fL Critically low 9.5-13.[address] [facility] Comment on above: Performed By: #### C BC #### [facility] [address] [place] [address] Dr. Christos Fallon PLT 301 103/ul Normal 150-450 [facility] Comment on above: Performed By: #### C BC #### [facility] [address] [address] [address] Christos Flalon RBC 4.14 106/ul Critically low 4.20-5.40 [facility] Comment on above: Performed By: #### C BC #### [facility] [address] [place] [address] Dr. Christos Fallon WBC 6.3 103/ul Normal 4.0-11.[address] [facility] Comment on above: Performed By: #### C BC #### [facility] [address] [place] [address] Dr. Christos Fallon FREE T3on 11-19-2021 FREE T3 2.72 pg/mlL Critically low 2.77-5.27 [facility] Comment on above: Performed By: #### C MP, TSH, HSTROPN #### [facility] [address] [place] [address] Dr. Christos Fallon FREE T4on 11-19-2021 Free T4 [Mass/Vol] 1.09 ng/dL Normal 0.78-2.19 [facility] Comment on above: Performed By: #### C MP, TSH, HSTROPN #### [facility] [address] [place] [address] Dr. Christos Fallon GLYCOHEMOGLOBIN A1Con 2021 ADA RECOMMENDATION ADA THERAPEUTIC TARG ET 6.0 - 7.0 ACTION SUGGESTED > 7.[address] [facility] Comment on above: Performed By: #### A 1C #### [facility] [address] [place] [address] Dr. Christos Fallon Glucose [Mass/Vol] 105 mg/dL Normal [facility] Comment on above: Performed By: #### A 1C #### [facility] [address] [address] [address] Christos Fallon HbA1c (Bld) [Mass fraction] 5.3 % Normal <=6.[address] [facility] Comment on above: Performed By: #### A 1C #### [facility] [address] [place] [address] Dr. Christos Fallon LIPID PROFILEon 11-19-2021 CHOL-HDL RATIO NORM SEE BELOW Normal [facility] Comment on above: Result Comment: 3.3 - 4.4 LOW RISK 4.4 - 7.1 AVERAGE RISK 7.1 - 11.0 MODERATE RISK >11.0 HIGH RISK Performed By: #### C MP, TSH, HSTROPN #### [facility] [address] [place] [address] Dr. Christos Fallon Cholesterol [Mass/Vol] 232 mg/dL Critically high <=[address] [facility] Comment on above: Performed By: #### C MP, TSH, HSTROPN #### [facility] [address] [address] [address] Christos Fallon Cholesterol in HDL [Mass/Vol] 60 mg/dL Normal 40-[address] [facility] Comment on above: Performed By: #### C MP, TSH, HSTROPN #### [facility] [address] [place] [address] Dr. Christos Fallon Cholesterol in LDL [Mass/Vol] 134.6 mg/dL Normal [facility] Comment on above: Performed By: #### C MP, TSH, HSTROPN #### [facility] [address] [address] [address] Christos Fallon Cholesterol.total/Cho lesterol in HDL [Mass ratio] 3.9 {ratio} Normal [facility] Comment on above: Performed By: #### C MP, TSH, HSTROPN #### [facility] [address] [place] [address] Dr. Christos Fallon HDL NORMAL > or = 60 mg/dl - LO W CARDIOVASCULAR RISK <40 mg/dl - HIGH CARDIOVASCULAR RISK Normal [facility] Comment on above: Performed By: #### C MP, TSH, HSTROPN #### [facility] [address] [address] [address] Christos Fallon LDL CALC NORMAL SEE BELOW Normal [facility] Comment on above: Result Comment: <100 mg/dl OPTIMAL 100 - 129 mg/dl NEAR OR ABOVE OPTIMAL 130 - 159 mg/dl BORDERLINE HIGH 160 - 189 mg/dl HIGH >190 mg/dl VERY HIGH Performed By: #### C MP, TSH, HSTROPN #### [facility] [address] [address] [address] Christos Fallon Triglyceride [Mass/Vol] 187 mg/dL Critically high <=150 [facility] Comment on above: Performed By: #### C MP, TSH, HSTROPN #### [facility] [address] [address] [address] Christos Fallon VLDL CALC 37.4 mg/dL Normal [facility] Comment on above: Performed By: #### C MP, TSH, HSTROPN #### [facility] [address] [address] [address] Christos Fallon PROF 14(COMP METB)on 11-19- 022 Albumin [Mass/Vol] 3.8 g/dL Normal 3.4-5.0 [facility] Comment on above: Performed By: #### C MP, TSH, HSTROPN #### [facility] [address] [address] [address] Christos Fallon Albumin/Globulin [Mass ratio] 1.1 {ratio} Normal [facility] Comment on above: Performed By: #### C MP, TSH, HSTROPN #### [facility] [address] [address] [address] Christos Fallon ALP [Catalytic activity/Vol] 77 U/L Normal 46-116 [facility] Comment on above: Performed By: #### C MP, TSH, HSTROPN #### [facility] [address] [address] [address] Christos Fallon ALT [Catalytic activity/Vol] 34 U/L Normal 14-[address] [facility] Comment on above: Performed By: #### C MP, TSH, HSTROPN #### [facility] [address] [address] [address] Christos Fallon Anion gap [Moles/Vol] 11.5 mmol/L Normal [facility] Comment on above: Performed By: #### C MP, TSH, HSTROPN #### [facility] [address] [place] [address] Dr. Christos Fallon AST [Catalytic activity/Vol] 21 U/L Normal 15-[address] [facility] Comment on above: Performed By: #### C MP, TSH, HSTROPN #### [facility] [address] [place] [address] Dr. Christos Fallon Bilirubin [Mass/Vol] 0.7 mg/dL Normal 0.2-1.[address] [facility] Comment on above: Performed By: #### C MP, TSH, HSTROPN #### [facility] [address] [place] [address] Dr. Christos Fallon Calcium [Mass/Vol] 8.8 mg/dL Normal 8.5-10.1 [facility] Comment on above: Performed By: #### C MP, TSH, HSTROPN #### [facility] [address] [place] [address] Dr. Christos Fallon Chloride [Moles/Vol] 104 mmol/L Normal 98-[address] [facility] Comment on above: Performed By: #### C MP, TSH, HSTROPN #### [facility] [address] [place] [address] Dr. Christos Fallon CO2 [Moles/Vol] 28.6 mmol/L Normal 22.0-30.0 [facility] Comment on above: Performed By: #### C MP, TSH, HSTROPN #### [facility] [address] [place] [address] Dr. Christos Fallon Creatinine [Mass/Vol] 0.88 mg/dL Normal 0.52-1.[address] [facility] Comment on above: Performed By: #### C MP, TSH, HSTROPN #### [facility] [address] [place] [address] Dr. Chirstos Fallon EGFR-AF CUBAN >60 Normal >=60 [facility] Comment on above: Performed By: #### C MP, TSH, HSTROPN #### [facility] [address] [address] [address] Christos Fallon EGFR-NON AF CUBAN >60 Normal >=[address] [facility] Comment on above: Performed By: #### C MP, TSH, HSTROPN #### [facility] [address] [address] [address] Christos Fallon Globulin (S) [Mass/Vol] 3.5 g/dL Normal [facility] Comment on above: Performed By: #### C MP, TSH, HSTROPN #### [facility] [address] [address] [address] Christos Fallon Glucose [Mass/Vol] 101 mg/dL Normal 74-106 [facility] Comment on above: Performed By: #### C MP, TSH, HSTROPN #### [facility] [address] [place] [address] Dr. Christos Fallon Potassium [Moles/Vol] 4.1 mmol/L Normal 3.4-5.[address] [facility] Comment on above: Performed By: #### C MP, TSH, HSTROPN #### [facility] [address] [place] [address] Dr. Christos Fallon Protein [Mass/Vol] 7.3 g/dL Normal 6.1-8.2 [facility] Comment on above: Performed By: #### C MP, TSH, HSTROPN #### [facility] [address] [address] [address] Christos Fallon Sodium [Moles/Vol] 140 mmol/L Normal 137-145 [facility] Comment on above: Performed By: #### C MP, TSH, HSTROPN #### [facility] [address] [place] [address] Dr. Christos Fallon Urea nitrogen [Mass/Vol] 11.0 mg/dL Normal 7.0-18.0 [facility] Comment on above: Performed By: #### C MP, TSH, HSTROPN #### [facility] [address] [address] [address] Christos Fallon Urea nitrogen/Creatinine [Mass ratio] 12.5 mg/mg Normal [facility] Comment on above: Performed By: #### C MP, TSH, HSTROPN #### [facility] [address] [address] [address] Christos Fallon TSHon 11-19-2021 TSH 0.774 uIU/mL Normal 0.470-4.680 [facility] Comment on above: Performed By: #### C MP, TSH, HSTROPN #### [facility] [address] [address] [address] Christos Fallon TSH RANGE SEE BELOW Normal [facility] Comment on above: Result Comment: <0.3 4 UIU/ml HYPERTHYROID 0.34-5.60 UIU/ml EUTHYROID >5.60 UIU/ml HYPOTHYROID Performed By: #### C MP, TSH, HSTROPN #### [facility] [address] [address] [address] Christos Fallon XR TSPINE 2 VIEWSon [...] TAMIE GUILLERMO Date: 2021-11-19 12:49 Normal [facility] Cardiovascular Lab Reporton 11-17-2021 Cardiovascular Lab Report [facility] Patient Name: [facility] MR #: [id number] Physician: Jonny Fowler M.D. Department of Service Date: 11/17/2021 Medicine Birthdate: 1980 Division of Room #: [facility] Adult Cardiovascular Services [address] [place] [place] [address] Cardiovascular Laboratory Report PROCEDURE: Implantable loop recorder [...] subcutaneous pocket, into which was deployed a [employer] BioMonitor 3 implantable loop recorder. Via off [...] Fowler M.D. Date Trans: 11/17/2021 12:41 P/toñito [id number] cc: Mert Lama M.D. [address] [place] [id number] Normal [facility] Covid-19 PCR (CVDTB)on SARS-CoV-2 (COVID-19) RNA LEROY+probe Ql (Unsp spec) Not detected Normal NOT DETECTED [facility] Comment on above: Result Comment: This test is not yet approved or cleared by the [place] FDA. When there are no FDA-approved or cleared tests available, and other criteria are met, FDA can make tests available under an emergency access mechanism called an Emergency Use Authorization (EUA). The EUA for this test is supported by the [place] of Health and Human Service's (HHS's) declaration [...] By: #### C MP, TSH, HSTROPN #### [facility] [address] [place] [address] Dr. Christos Fallon Covid-19 PCR (CVDTB)on SARS-CoV-2 (COVID-19) RNA LEROY+probe Ql (Unsp spec) Not detected Normal NOT DETECTED [facility] Comment on above: Result Comment: When [...] for this test is supported by the Speech Language Pathologist Travel of Health and Human Service's declaration that [...] longer be used). Performed By: #### [facility] #### [facility] [address], [place] [address] Dr. Christos Fallon Cardiovascular Lab Reporton 06-17-2021 Cardiovascular Lab Report [facility] Patient Name: Kaila Vasquez [facility] MR #: [id number] Physician: Vishal Rogers MD Department of Service Date: 06/17/2021 Medicine Birthdate: 1980 Division of Room #: CC Cardiology Adult Cardiovascular Services [facility] [address] [facility]. [place] [address] Cardiovascular Laboratory Report COMPREHENSIVE EP STUDY AND [...] same (more content not included)... Normal [facility] FEMUR LEFT 2 VWSon 1 FEMUR LEFT 2 VWS [facility] Department of Radiology [address] [place] [id number] ======== Patient Name: KAILA VASQUEZ : 1980 Sex: F Age: Race: White Pt. Location: Patient Status: O Ordered Date: 01/15/2021 11:20:00 AM Completed Date: 01/15/2021 11:28 AM Requesting Provider: PAMELLA BRNENAN Attending Provider: PAMELLA BRENNAN Report Copy To: [...] report. Electronically signed: Gelacio Pfeiffer. Transcribed by: [email or web address], User Resident: TAVON BELCHER Electronically Signed by: GELACIO PFEIFFER @ 01/15/2021 12:03 PM I personally read this/these film(s) with this resident Normal [facility] Comment on above: Order Comment: evalu ate Operative Reporton Operative Report MR#: [id number] [facility] Pt. Name: Kaila Vasquez Room #: 0C Discharge 12/05/2020 Date: Birthdate: 1980 OPERATIVE REPORT DATE OF SURGERY: 12/05/2020 SURGEON: Pamella Brennan M.D. PREOPERATIVE DIAGNOSIS: Left distal femur osteochondroma. POSTOPERATIVE DIAGNOSIS: Left distal femur osteochondroma. PROCEDURE PERFORMED: Left distal femur osteochondroma excision. INDUSTRIAL FABRIC CUTTER: Alaina Edouard M.D. ANESTHESIA: General endotracheal. SPECIMENS: [...] i (more content not included)... Normal [facility] FEMUR LEFT 2 [facility] [address] [facility] Department of Radiology [address] [place] [id number] ======== Patient Name: KAILA VASQUEZ : 1980 Sex: F Age: Race: White Pt. Location: OUTP Patient Status: O Ordered Date: 12/05/2020 7:30:00 AM Completed Date: 12/05/2020 10:05 AM Requesting Provider: PAMELLA BRENNAN Attending Provider: PAMELLA BRENNAN Report Copy To: Signs & Symptoms: LEFT DISTAL FEMUR OSTEOCHONDROMA EXCISION History: Comments: LEFT DISTAL FEMUR OSTEOCHONDROMA EXCISION Exam: FEMUR LEFT 2 [facility] ======== FEMUR LEFT 2 VWS [...] purposes. Electronically signed: Ching Garcia. Transcribed by: [email or web address], User Resident: Electronically Signed by: CHING GARCIA @ 12/05/2020 11:54 AM Normal [facility] Comment on above: Order Comment: LEFT DISTAL FEMUR OSTEOCHONDROMA EXCISION POC GLUCOSE LABon 12-05-2020 Glucose [Mass/Vol] 108 mg/dL High 70-100 [facility] Comment on above: Performed By: #### 8 [id number] ####[facility] *MRSA/MSSA DNA NASALon 11-28 *MRSA/MSSA DNA NASAL Clinical Report: (D ) Specimen: NASAL SWAB Collected: 11/28/2020 13:22 Status: Final Last Updated: 2020 13:05 MSSA DNA (Final) Negative MRSA DNA (Final) Negative Normal [facility] Comment on above: Performed By: #### 3 1595 ####[facility] APTTon 11-28-2020 aPTT Coag (Bld) [Time] 29.1 s Normal 25.0-35.0 [facility] Comment on above: Result Comment: ALL RESULTS [...] THIS PURPOSE. Performed By: #### 5 7307, 165[address] #### [facility] [address] [place] [address], [facility] BASIC METABOLIC PANELon 04- Calcium [Mass/Vol] 9.5 mg/dL Normal 8.6-10.3 [facility] Comment on above: Performed By: #### 0 0071 #### [facility] [address] [place] [address], [facility] Chloride [Moles/Vol] 104 mmol/L Normal 98-107 [facility] Comment on above: Performed By: #### 0 0071 #### [facility] [address] [place] [address], [facility] CO2 [Moles/Vol] 28 mmol/L Normal 21-31 [facility] Comment on above: Performed By: #### 0 0071 #### [facility] [address] [place] [address], [facility] Creatinine [Mass/Vol] 0.90 mg/dL Normal 0.60-1.20 [facility] Comment on above: Performed By: #### 0 0071 #### [facility] [address] [place] [address], [facility] GFR/1.73 sq M.predicted among blacks MDRD (S/P/Bld) [Vol rate/Area] mL/min/{1.73_m2} Normal >60 [facility] Comment on above: Performed By: #### 0 0071 #### [facility] [address] [place] [address], [facility] GFR/1.73 sq M.predicted among non-blacks MDRD (S/P/Bld) [Vol rate/Area] mL/min/{1.73_m2} Normal >60 [facility] Comment on above: Performed By: #### 0 0071 #### [facility] [address] Glucose [Mass/Vol] 132 mg/dL High 70-100 [facility] Comment on above: Performed By: #### 0 0071 #### [facility] [address] Potassium [Moles/Vol] 3.8 mmol/L Normal 3.5-5.1 [facility] Comment on above: Performed By: #### 0 1 #### [facility] [address] [facility]. [address] Sodium [Moles/Vol] 138 mmol/L Normal 136-145 [facility] Comment on above: Performed By: #### 0 1 #### [facility] [address] [facility] Urea nitrogen [Mass/Vol] 9 mg/dL Normal 7-25 [facility] Comment on above: Performed By: #### 0 1 #### [facility] [address] [facility]. [address] CBC W/DIFFon 11-28-2020 ABS IMM GRANS 0.0 10*3/uL Normal 0.0-0.2 [facility] Comment on above: Performed By: #### 5 102 ####[facility] ABS NEUTROPHILS 7.2 10*3/uL Normal 1.6-7.6 [facility] Comment on above: Performed By: #### 5 102 ####[facility] Basophils (Bld) [#/Vol] 0.1 10*3/uL Normal 0.0-0.2 [facility] Comment on above: Performed By: #### 102 ####[facility] Basophils/100 WBC (Bld) 0.6 % Normal 0.0-1.0 [facility] Comment on above: Performed By: #### 5 0103 ####[facility] Eosinophils (Bld) [#/Vol] 0.3 10*3/uL Normal 0.0-0.5 [facility] Comment on above: Performed By: #### 5 0103 ####[facility] Eosinophils/100 WBC (Bld) 2.6 % Normal 0.0-6.0 [facility] Comment on above: Performed By: #### 5 3 ####[place] [address] [address] Erythrocyte distribution width (RBC) [Ratio] 12.6 % Normal 11.5-15.0 [facility] Comment on above: Performed By: #### 5 0103 ####[place] [address] [address] Hematocrit (Bld) [Volume fraction] 42.6 % Normal 36.0-45.0 [facility] Comment on above: Performed By: #### 5 3 ####[facility] Hemoglobin (Bld) [Mass/Vol] 14.4 g/dL Normal 12.0-15.0 [facility] Comment on above: Performed By: #### 5 0103 ####[facility] IMMATURE GRANS 0.3 % Normal 0.0-1.0 [facility] Comment on above: Performed By: #### 5 0103 ####[facility] Lymphocytes (Bld) [#/Vol] 2.1 10*3/uL Normal 1.2-4.0 [facility] Comment on above: Performed By: #### 5 3 ####[facility] Lymphocytes/100 WBC (Bld) 20.2 % Normal 20.0-45.0 [facility] Comment on above: Performed By: #### 5 102 ####[facility] MCH (RBC) [Entitic mass] 33.6 pg High 27.0-33.0 [facility] Comment on above: Performed By: #### 5 102 ####[facility] MCHC (RBC) [Mass/Vol] 33.8 g/dL Normal 32.0-35.0 [facility] Comment on above: Performed By: #### 5 3 ####[facility] MCV (RBC) [Entitic vol] 99.5 fL High 82.0-98.0 [facility] Comment on above: Performed By: #### 5 3 ####[facility] Monocytes (Bld) [#/Vol] 0.7 10*3/uL Normal 0.1-1.0 [facility] Comment on above: Performed By: #### 5 3 ####[facility] [place] [address] MONOS 6.4 % Normal 5.0-12.0 [facility] Comment on above: Performed By: #### 5 3 ####[facility] [facility].[address] Neutrophils/100 WBC (Bld) 69.9 % Normal 40.0-72.0 [facility] Comment on above: Performed By: #### 5 0103 ####[facility] [facility].[address] Nucleated RBC/100 WBC (Bld) [Ratio] 0 % Normal 0-0 [facility] Comment on above: Performed By: #### 5 0103 ####[facility] PLAT CNT 346 10*3/uL Normal 150-400 [facility] Comment on above: Performed By: #### 5 0103 ####[facility] RBC (Bld) [#/Vol] 4.28 10*6/uL Normal 3.80-5.00 [facility] Comment on above: Performed By: #### 5 0103 ####[facility] [facility].[address] WBC (Bld) [#/Vol] 10.24 10*3/uL Normal 4.00-10.60 [facility] Comment on above: Performed By: #### 5 0103 ####[address] PROTHROMBIN TIMEon 1 INR Coag (PPP) [Relative time] 0.99 {INR} Normal 0.91-1.16 [facility] Comment on above: Result Comment: ACCC P [...] CHEST 1995;108:[id number]. Performed By: #### 5 7307, [address] #### [facility] [address] [place] [address], [facility] PT Coag (PPP) [Time] 13.1 s Normal 12.3-14.8 [facility] Comment on above: Result Comment: ALL RESULTS MUST BE INTERPRETED WITH RESPECT TO BLOOD DRAWING ARTIFACT OR DILUTION ERROR OF ANTICOAGULANT AT THE TIME OF SAMPLING. Performed By: #### 5 7307, 64034 #### [facility] [address] [place] [address], [facility] TYPE AND CROSSMATCHon 2020 ABO INTERPRETATION O Normal [facility] Comment on above: Performed By: #### 6 2594 #### [facility] [address] [place] [address], [facility] RH INTERPRETATION Positive Normal [facility] Comment on above: Performed By: #### 6 2594 #### [facility] [address] [place] [address], [facility] URINALYSISon 11-28-2020 Appearance (U) CLEAR Normal CLEAR [facility] Comment on above: Performed By: #### 1 0008 #### [facility] [address] [place] [address], [facility] Bilirubin Ql (U) Negative Normal NEGATIVE [facility] Comment on above: Performed By: #### 1 0008 #### [facility] [address] [place] [address], [facility] Color (U) YELLOW Normal YELLOW [facility] Comment on above: Performed By: #### 1 0008 #### [facility] [address] [facility] [place] [address], [facility] Glucose Ql (U) Negative Normal NEGATIVE [facility] Comment on above: Performed By: #### 1 0008 #### [facility] [address] [facility] [place] [address], [facility] Hemoglobin Ql (U) Negative Normal NEGATIVE [facility] Comment on above: Performed By: #### 1 0008 #### [facility] [address] [facility] [place] [address], [facility] KETONE Negative Normal NEGATIVE [facility] Comment on above: Performed By: #### 1 0008 #### [facility] [address] [facility] [place] [address], [facility] LEUK JORDAN Negative Normal NEGATIVE [facility] Comment on above: Performed By: #### 1 0008 #### [facility] [address] [place] [address], [facility] MICRO NOT DONE Normal [facility] Comment on above: Result Comment: Micr oscopics not performed on urines with negative chemical reactions unless requested in original order Performed By: #### 1 0008 #### [facility] [address] [facility] [place] [address], [facility] Nitrite Ql (U) Negative Normal NEGATIVE [facility] Comment on above: Performed By: #### 1 0008 #### [facility] [address] [facility] [place] [address], [facility] pH (U) 6.0 [pH] Normal 5.0-8.0 [facility] Comment on above: Performed By: #### 1 0008 #### [facility] [address] [facility] [place] [address], [facility] Protein Ql (U) Negative Normal NEGATIVE [facility] Comment on above: Performed By: #### 1 0008 #### [facility] [address] [place] [address], [facility] SPEC GRAV 1.018 Normal 1.015-1.020 [facility] Comment on above: Performed By: #### 1 0008 #### [facility] [address] [place], [place] [address] Vital Signs Date Time Vital Sign Value Performing Clinician Faci lity 08-24-2022 13:44-0500 Body height 162.6 cm Janell Sy MD Work Phone: [facility] 08-24-2022 13:44-0500 Body weight 112.95 kg Janell Sy MD Work Phone: [facility] 08-24-2022 13:44-0500 Diastolic blood pressure 73 mm[Hg] Janell Sy MD Work Phone: [facility] 08-24-2022 13:44-0500 Heart rate 88 /min Janell Sy MD Work Phone: [facility] 08-24-2022 13:44-0500 SaO2% (BldA) [Mass fraction] 98 % Janell Sy MD Work Phone: [facility] 08-24-2022 13:44-0500 Systolic blood pressure 112 mm[Hg] Janell Sy MD Work Phone: [facility] 08-05-2022 10:00-0500 Diastolic blood pressure 88 mm[Hg] Carmen Johnson PT Work Phone: [facility] 08-05-2022 10:00-0500 Heart rate 78 /min Carmen Seese PT Work Phone: [facility] 08-05-2022 10:00-0500 Systolic blood pressure 134 mm[Hg] Carmen Seese PT Work Phone: [facility] 07-07-2022 08:12-0500 Body height 162.6 cm Glenroy Syed ASSISTANT FINANCE DIRECTOR.PACKING AND FINAL ASSEMBLY SUPERVISOR Work Phone: [facility] 07-07-2022 08:12-0500 Body weight 112.04 kg Glenroy Syed ASSISTANT FINANCE DIRECTOR.PACKING AND FINAL ASSEMBLY SUPERVISOR Work Phone: [facility] 07-07-2022 08:12-0500 Diastolic blood pressure 88 mm[Hg] Glenroy Syed ASSISTANT FINANCE DIRECTOR.PACKING AND FINAL ASSEMBLY SUPERVISOR Work Phone: [facility] 07-07-2022 08:12-0500 Heart rate 82 /min Glenroy Syed ASSISTANT FINANCE DIRECTOR.PACKING AND FINAL ASSEMBLY SUPERVISOR Work Phone: [facility] 07-07-2022 08:12-0500 SaO2% (BldA) [Mass fraction] 98 % Glenroy Syed ASSISTANT FINANCE DIRECTOR.PACKING AND FINAL ASSEMBLY SUPERVISOR Work Phone: [facility] 07-07-2022 08:12-0500 Systolic blood pressure 134 mm[Hg] Glenroy Syed ASSISTANT FINANCE DIRECTOR.PACKING AND FINAL ASSEMBLY SUPERVISOR Work Phone: [facility] 12-09-2021 13:59-0400 Blood Pressure Location Pamella NILL [facility] 12-09-2021 13:59-0400 Diastolic blood pressure 78 mm[Hg] Pamella NILL [facility] 12-09-2021 13:59-0400 Heart rate 68 /min Pamella NILL [facility] 12-09-2021 13:59-0400 Respiratory rate 16 /min Pamella NILL [facility] 12-09-2021 13:59-0400 Systolic blood pressure 118 mm[Hg] Pamella NILL General Surgery [place] Encounters Encounter Date Encounter Type Care Provider Facility Start: 05-01-2025 ambulatory [facility] Start: 03-28-2025 ambulatory [facility] Start: 03-11-2025 End: 03-11-2025 ambulatory Ari Sellers MD Facility: [facility] Start: 02-28-2025 ambulatory [facility] Start: 02-25-2025 End: 02-25-2025 ambulatory Ari Sellers MD Facility: [facility] Start: 02-20-2025 ambulatory [facility] Start: 01-15-2025 End: 01-15-2025 ambulatory [facility] Start: 01-14-2025 End: 01-14-2025 ambulatory Ari Sellers MD Facility: [facility] Start: 01-03-2025 ambulatory [facility] Start: 12-24-2024 End: 12-24-2024 ambulatory Ari Sellers MD Facility: [facility] Start: 11-26-2024 End: 11-26-2024 ambulatory Cristiane L Brock Facility:[facility] Start: 11-15-2024 End: 11-15-2024 ambulatory Cristiane L Brock Facility:[facility] Cam Start: 10-30-2024 ambulatory [facility] Start: 10-02-2024 End: 10-08-2024 Telephone encounter [facility] Comment on above: neuro referral Start: 09-18-2024 ambulatory [facility] Start: 09-11-2024 End: 09-11-2024 ambulatory Cristiane L Brock Facility:[facility] Start: 07-16-2024 ambulatory [facility] Start: 06-29-2024 ambulatory [facility] Start: 06-15-2024 ambulatory [facility] Start: 06-04-2024 End: 06-04-2024 ambulatory Ari Sellers MD Facility:[facility] Start: 05-31-2024 ambulatory JONNY MANUEL [facility] Start: 12-19-2023 End: 12-19-2023 ambulatory Cristiane Gutiérrez Facility:[facility] Start: 10-25-2023 End: 10-25-2023 ambulatory IRMA SUDHA Not Available Start: 08-25-2023 End: 08-25-2023 ambulatory IRMA SUDHA Not Available Start: 10-15-2022 Orders Only Glenroy Syed ASSISTANT FINANCE DIRECTOR.PACKING AND FINAL ASSEMBLY SUPERVISOR Work Phone: Neurology Comment on above: 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 (Primary Dx) Start: 10-14-2022 End: 10-14-2022 ambulatory GLENROY SYED Facility:[facility] Start: 09-09-2022 ambulatory Mauri Ross RT(R) Ra diologpedro pablo Comment on above: Radiology MRI Start: 09-09-2022 [...] morbid, BMI 40.0-49.9 (HCC); SVT (supraventricular tachycardia) ([facility]); Chronic fatigue; Vitamin D deficiency Start: 08-20-2022 Orders Only Len VINCENTPACKING AND FINAL ASSEMBLY SUPERVISOR Work Phone: Neurology Comment on above: Ocular [...] Hospital Start: 08-05-2022 End: 08-05-2022 ambulatory Carmen Salazarse PT Work Phone: Physical Therapy Comment on above: Dizziness (Primary D x); Cervicalgia; Headaches Start: 07-29-2022 End: 07-29-2022 ambulatory WM RODRIGUEZ Facility:[facility] Start: 07-21-[address] MERT LAMA Facilit y:[facility] Start: 07-07-2022 Telephone encounter Glernoy rodriguez ASSISTANT FINANCE DIRECTOR.PACKING AND FINAL ASSEMBLY SUPERVISOR Work Phone: Neurology Comment on above: Received Outside Med ical Records Start: 07-07-2022 End: 07-07-2022 ambulatory GLENROY SYED Facility:[facility] Start: 07-07-2022 End: 07-07-2022 Patient encounter procedure Glenroy Russellhal ASSISTANT FINANCE DIRECTOR.PACKING AND FINAL ASSEMBLY SUPERVISOR Work Phone: Neurology Comment on above: Dizziness [...] encounter procedure Pamella SANABRIA [facility]iele[facility]ie [facility] Start: 11-25-2021 End: 11-26-[address] MERT LAMA Facility:[facility] Start: 11-23-2021 Encounter for genera l adult medical examination without abnormal findings DR MERT LAMA [facility] Start: 11-19-2021 End: 11-20-[address] [...] above: Performed By: #### 6 2594 #### [address] Start: 11-04-2020 Cystourethroscopy wi th dilation of urethral stricture Pamella SANABRIA Abdominal hysterectomy Wale jennifer SANABRIA Bilateral complete salpingectomy Pamella SANABRIA Cardiac radiofrequen cy ablation using ultrasound guidance Pamella DANIELE Cholecystectomy Pamella DANIELE Excision of osteochondroma Nestor SANABRIA History of ankle surgery Carlos SANABRIA Plan of Treatment Date Care Activity Detail Author Start: 04-08-2024 COVID-19 Vaccine () COVID-19 Vaccine () [facility] Start: 04-08-2024 Influenza vaccination Influenza Vacc ine [facility] Start: 08-08-2022 [facility] Start: 07-07-2022 End: 09-06-2022 25-hydroxyvitamin D3 [Mass/volume] in Serum or Plasma [facility] Work Phone: Comment on above: Expected: 07/07/2022 , Expires: 09/06/2022 Start: 07-07-2022 End: 09-06-2022 ESEQUIEL BY IFA WITH REFLEX [facility] Work Phone: Comment on above: Expected: 07/07/2022 , Expires: 09/06/2022 Start: 04-08-2022 Influenza vaccination INFLUENZA (#1) [facility] Start: 08-08-2021 DEPRESSION ASSESSMENT [facility] Start: 11-05-2020 COVID-19 VACCINE (3 - Booster for Giancarlo series) COVID-19 VACCINE (3 - Booster for Giancarlo series) [facility] Start: 2012 HPV TESTING HPV TESTING [facility] Start: 12-29-2003 DTaP,Tdap and Td Vac cines (6 - Tdap) DTaP,Tdap and Td Vaccines (6 - Tdap) [facility] Start: 11-30-2003 PAP TESTING PAP TESTING [facility] Start: 11-30-2003 Screening for malign ant neoplasm of cervix Pap Smear [facility] Start: 2001 Urine microalbumin profile DTA P,TDAP,TD (1 - Tdap) [facility] Start: 2000 Adult BMI Screening Adult BMI Screen ing [facility] Start: 2000 HEPATITIS C SCREENING HEPATITIS C SC PARKER [facility] Start: 2000 HIV SCREENING HIV SCREENING [facility] Start: 1994 Depression Screening Depression Scre ening [facility] Start: 1994 Tobacco Screening Tobacco Screening [facility] Start: 1982 HEPATITIS B (1 of 3 - 3-dose series) HEPATITIS B (1 of 3 - 3-dose series) [facility] End: 08-24-2023 ECG COMPLETE ECG COMPLETE ECG Routine Dizziness Palpitations Obesity, morbid, BMI 40.0-49.9 (HCC) 1 Occurrences starting 08/24/2022 until 08/24/2023 [facility] Work Phone: Comment on above: 1 Occurrences starti ng 08/24/2022 until 08/24/2023 ECG COMPLETE ECG COMPLETE ECG 08/24/2022 1:56 PM EST [facility] End: 07-07-2023 Echocardiography ECHO Cardiology Routine Palpitations 1 Occurrences starting 07/07/2022 until 07/07/2023 [facility] Work Phone: Comment on above: 1 Occurrences starti ng 07/07/2022 until 07/07/2023 End: 08-06-2023 Mri brain brain stem w/o w/contrast material MRI BRAIN WO/W IVCON Radiology Routine Dizziness Vision changes 1 Occurrences starting 07/07/2022 until 08/06/2023 [facility] Work Phone: Comment on above: 1 Occurrences starti ng 07/07/2022 until 08/06/2023 End: 09-15-2023 Mri spinal canal cervical w/o & w/contr matrl MRI CERVICAL SPINE WO/W IVCON Radiology Routine Dizziness Vision changes Cervicalgia Disturbance of skin sensation 1 Occurrences starting 08/16/2022 until 09/15/2023 [facility] Work Phone: Comment on above: 1 Occurrences starti ng 08/16/2022 until 09/15/2023 [facility] Immunizations Immunization Date Immunization Notes Care Provider Tayo cullen 09-10-2020 SARS-CoV-2 (COVID-19 ) Ad26 vaccine, recombinant Pamella NILL [facility] 08-12-2020 SARS-CoV-2 (COVID-19 ) Ad26 vaccine, recombinant Pamella NILL [facility] Payers Date Payer Category Payer Unknown [id number] 2021 Unknown [id number] 1980 Unknown [id number] 1980 Unknown [id number] 2.16.8 40.1.638114.3.579.2.647 1982 Unknown [id number] 2.16.8 40.1.332594.3.579.2.647 1982 Unknown [id number] 2.16.8 40.1.299445.3.579.2.647 1982 Unknown [id number] 2.16.84 0.1.316795.3.579.2.593 1982 Unknown [id number] 2.16.84 0.1.088248.3.579.2.593 1982 Unknown [id number] 2.16.84 0.1.765832.3.579.2.593 1982 Unknown [id number] 2.16.84 0.1.994497.3.579.2.593 1982 Unknown [id number] 2.16.84 0.1.191796.3.579.2.593 1982 Unknown [id number] 2.16.84 0.1.103382.3.579.2.593 1982 Unknown [id number] 2.16.84 0.1.569610.3.579.2.593 1982 Unknown [id number] 2.16.84 0.1.342975.3.579.2.593 1982 Unknown [id number] 2.16.84 0.1.559782.3.579.2.593 1982 Unknown [id number] 2.16.84 0.1.345430.3.579.2.593 1982 Unknown [id number] 2.16.84 0.1.194767.3.579.2.593 1982 Unknown [id number] 2.16.84 0.1.434346.3.579.2.593 1982 Unknown [id number] 2.16.84 0.1.013309.3.579.2.593 1982 Unknown [id number] 2.16.84 0.1.799079.3.579.2.593 1982 Unknown [id number] 2.16.84 0.1.523034.3.579.2.593 1982 Unknown [id number] 2.16.84 0.1.643851.3.579.2.1259 1982 Unknown [id number] 2.16.84 0.1.628785.3.579.2.1259 1982 Unknown [id number] 2.16.8 40.1.496153.3.579.2.727 1982 Unknown [id number] .16.8 40.1.082207.3.579.2.72 1982 Unknown [id number] .16.8 40.1.003158.3.579.2.727 1982 Unknown [id number] .16.8 40.1.508085.3.579.2.727 1982 Unknown [id number] 2.16. 840.1.073116.3.579.2.196 1982 Unknown [id number] 2.16. 840.1.793990.3.579.2.196 1982 Unknown [id number] 2.16. 840.1.316503.3.579.2.196 1982 Unknown [id number] 2.16. 840.1.237472.3.579.2.196 1982 Unknown [id number] 2.16. 840.1.054316.3.579.2.196 1959 Unknown [id number] Social History Date Type Detail Facility Start: 05-01-2021 End: 12-09-2021 Tobacco smoking status Never smoked tobacco (finding) [facility] Tobacco smoking status Never [facility] Start: 01-17-2019 End: 05-01-2021 Sex Assigned At Female [facility] Start: 05-01-2021 End: 07-07-2022 Tobacco use and exposure Smokeless tobacco non-user [facility] Start: 1980 Sex Assigned At Not on file [facility] Start: 06-27-2022 End: 07-07-2022 Exposure to SARS-CoV-2 (event) Not sure [facility] Start: 05-01-2021 End: 08-24-2022 Alcohol intake Current drinker of alcohol (finding) [facility] Start: 08-24-2022 Alcohol Comment occasionally 1 -2 times a months 2-3 drinks [facility] Start: 01-17-2019 End: 05-01-2021 History of Social function [facility] Start: 05-01-2021 Alcohol Comment social [facility] Start: 03-13-2015 Sex Female (finding) [facility] Clinical Notes 12-30-2021 to 01-15-2025 Telephone Encounter [...] she's been having lots of PAC's . [place] lots of them on 01/11/2025 around 11:52am. Says these episodes scares her and they've been happening more frequently. Denies chest pain. There are no events noted on the [employer] website corresponding to that thedate. Loop monitor [...] sleep recently and that was recorded on CTQuan property assessment monitor reveals evidence of sinus tachycardia 120 bpm. Pt had COVID recently and since then has been experiencing palpitations. She notes these when she is changing positions and also when she bends down. 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 [facility] 10-02-2024 Miscellaneous Notes Received new patient referral. [...] left voicemail Received Referral from: Cristiane Gutiérrez APRN-PACKING AND FINAL ASSEMBLY SUPERVISOR Dx: Facial tingling M62.838 (ICD-10-CM) - Muscle spasm Referred to: 2nd attempt: Left message for patient documented [facility] this [facility] Telephone encounter Note Received new patient [...] EVER [facility] Tele[facility] encounter Note 1st attempt- left voicemail Received Referral from: Cristiane Gutiérrez, ELISEO-SARIKA Dx: Facial tingling M62.838 (ICD-10-CM) - Muscle spasm [facility] 10-02-2024 Telephone encounter Note 2nd attempt: Left message for [facility] 10-14-2022 Note HNO ID: [id number] Author: RT Mary(R) Service: ? Author Type: [...] October 14, 2022 4:55 PM [facility] 10-14-2022 Note HNO ID: [id number] Author: Papa Rea RN Service: Radiology Author [...] 14, 2022 TIME: 3:20 PM [facility] 09-09-2022 Note HNO ID: [id number] Author: RT Odessa(R) Service: ? Author Type: [...] TIME: 2:11 PM PAGER/CONTACT #: [facility] 09-09-2022 History of Present illness [...] PM PAGER/CONTACT #: documented in this encounter [facility] 08-24-2022 Note HNO ID: [id number] Author: Janell Sy MD Service: ? Author Type: Physician Type: Progress Notes Filed: 08/24/2022 2:17 PM Note Text: [facility] [place] SECTION OF REGIONAL CARDIOLOGY OUTPATIENT VISIT DATE [...] Cardiac work-up includes: Echocardiogram on 05/19/2020 at [facility] showed normal ejection fraction. No valvular heart [...] U (more content not included)... [facility] 08-24-2022 History of Present illness Narrative Images from the original note were not included. [facility] [place] SECTION OF REGIONAL CARDIOLOGY OUTPATIENT VISIT DATE [...] Cardiac work-up includes: Echocardiogram on 05/19/2020 at [facility] showed normal ejection fraction. No valvular heart [...] twice daily.^Disp: ^Rfl: documented in this encounter [facility] 08-19-2022 Note HNO ID: [id number] Author: Mauri Chun OD Service: ? Author Type: FINANCIAL [employer] Type: Progress Notes Filed: 08/19/2022 10:22 AM Note Text: Ocular health is unremarkable with no abnormalities. Normal ON appearance Ophthalmic migraines Glasses Rx given with slight prism [facility] 08-16-2022 Miscellaneous Notes signed We can add it to fully evaluate her symptoms. -LP documented in this encounter [facility] 08-12-2022 Note HNO ID: [id number] Author: Carmen Johnson PT Service: ? Author [...] Total Treatment Time Minutes (timed/untimed): 60 Carmen Salazar, PT [facility] 08-12-2022 History of Present illness [...] Carmen Johnson PT documented in this encounter [facility] 08-05-2022 Note HNO ID: [id number] Author: Carmen Johnson PT Service: ? Author [...] Planned: 8 Planned Treatment Interventions: Therapeutic exercise (46157);Neuromuscular re-education (87378);Manual therapy (46390);Therapeutic activities (84619);Self-snf management (01346);Patient/Family/Caregiver Education;Gait Training (77941);Canalith Repositioning Maneuvers (66257) PLAN FOR NEXT VISIT: Detailed neck exam [...] contra (more content not included)... [facility] 08-05-2022 History of Present illness [...] Planned: 8 Planned Treatment Interventions: Therapeutic exercise (98997);Neuromuscular re-education (63869);Manual therapy (75225);Therapeutic activities (73516);Self-snf management (71633);Patient/Family/Caregiver Education;Gait Training (79662);Canalith Repositioning Maneuvers (21820) PLAN FOR NEXT VISIT: Detailed neck exam [...] Positional Testing Right Juan-Hallpike: No nystagmus;Asymptomatic Left Pax-Hallpike: No nystagmus;Asymptomatic Right Nylen Barany: No nystagmus;Asymptomatic [...] Carmen Johnson PT documented in this encounter [facility] 07-07-2022 Note HNO ID: [id number] Author: Glenroy Syed APRN.PACKING AND FINAL ASSEMBLY SUPERVISOR Service: ? Author Type: Nurse Practitioner Type: Progress Notes Filed: 07/07/2022 12:28 PM Note Text: [facility] General Neurology New Patient Evaluation CHIEF COMPLAINT: Questionable Autonomic dysfunction Kaila Vasquez is a 41 year old female with history of KAGN, palpitations, chronic fatigue, PVCs, SVT, anemia, migraines, [...] over a month. 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 A couple times a month she gets [...] dose.N (more content not included)... [facility] 07-07-2022 Miscellaneous Notes Noted. Provider notified. Received [facility] records [facility]. Uploaded to chart and forwarded for review. documented in this encounter [facility] 07-07-2022 Instructions Glenroy Syed APRN.SARIKA - 07/07/2022 9:06 AM EST Plan: Baseline labs MRI Brain for multiple symptoms ECHO for palpitations and arrhythmias Aspirin 81mg daily in the setting of known arrhythmias Consult to [place] for dizziness Consult to Cardiology for second opinion Consult to ophthalmology Follow up after testing documented in this encounter [facility] 07-07-2022 History of Present illness Narrative Images from the original note were not included. [facility] General Neurology New Patient Evaluation CHIEF [...] over a month. 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 A couple times a month she gets [...] Finger Abduction (U) 5 Finger Abduction 5 Roof Fixer 5 Roof Fixer 5 Right Lower Extremity: (of 5) Left [...] over a month. 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 A couple times a month she gets [...] VT reccommended. Patient wanting second opinion from sketcher within the [facility], referral placed. Unlikely autonomic dysfunction with unremarkable tilt and orthostatic vitals in office unconvincing (did not take BB today). Additionally, with visual changes, recommended seeing neuro manager switch. Will obtain additional labs as well. Follow [...] which included preparing to see the patient, [id number] patient care, completing clinical documentation, obtaining and/or reviewing separately obtained history, performing a medically appropriate examination, counseling and educating the patient/family/caregiver, ordering medications, tests, or procedures, and care coordination (not separately reported). Glenroy Syed APRN.[facility] General Neurology [address] [place] [address] Appointment: [phone] In regards to blood work, testing, and [...] your PCP/referring physician documented in this encounter [facility] 03-16-2022 Note EXAM: CHEST 2 VIEWS [...] MORALES Date: 2022-03-16 18:[address] [facility] 12-30-2021 Note [facility] [place] [place] NAME: KAILA VASQUEZ DATE OF : MEDICAL REC#: [id number] HOME AND FAMILY LIVING PROFESSOR: [address] [facility], TRANSADMIT DATE: 12/30/2021 09:02:00 CULTURED [employer]ODU[employer] MAKER DATE: 12/30/2021 21:00 DICTATING PHYSICIAN: PAMELLA SANABRIA [...] DR PAMELLA SANABRIA . 01/06/2022 08:31:00 [facility] Evaluation + Plan note No data available for this section [facility] [place] Evaluation note Diagnosis Dizziness- Primary Dizziness and giddiness Migraine aura without headache Migraine with aura, without mention of intractable migraine without mention of status migrainosus Palpitations Chronic fatigue Other malaise and fatigue Vision changes Unspecified visual disturbance Disturbance of skin sensation [facility] Dizziness- Primary Dizziness and giddiness Cervicalgia Headaches [facility] Diagnosis Dizziness- Primary Dizziness and giddiness Cervicalgia Headaches [facility] Cervicalgia- Primary Dizziness Dizziness and giddiness Vision changes Unspecified visual disturbance Disturbance of skin sensation [facility] Diagnosis Ocular migraine- Primary Other forms of migraine, without mention of intractable migraine without mention of status migrainosus [facility] Diagnosis KANG (obstructive sleep apnea)- Primary Obstructive sleep apnea (adult) (pediatric) Dizziness Dizziness and giddiness Palpitations Obesity, morbid, BMI 40.0-49.9 (HCC) Morbid obesity SVT (supraventricular tachycardia) ([facility]) Other specified cardiac dysrhythmias Chronic fatigue Other malaise and fatigue Vitamin D deficiency Unspecified vitamin D deficiency [facility] Diagnosis Degeneration of intervertebral disc of cervical region with osteophyte of cervical vertebra- Primary [facility] No data available for this section [facility] [place] InstructionsNot on filedocumented in this encounter [facility] Outpatient Procedure (Routine) - Authorized Specialty Diagnoses / Procedures Referred By Contac t Referred To Contact [facility] [place] Diagnoses Dizziness Palpitations Obesity, morbid, BMI 40.0-49.9 (HCC) Procedures ECG COMPLETE ECG ROUTINE ECG W/LEAST 12 LDS W/I&R Janell Sy MD [address] [place] [address] [facility] [place] [address] [place] [address] Referral ID Status Reason Start Date Expiration Date Visits Requested Visits Authorized [id number] Authorized Auto-Generat ed Referral 08/24/2022 08/24/2023 1 1 [facility] Summary Purpose Family History No [...] Referred By Eric t Referred To Contact [facility] [place] Diagnoses Degeneration of intervertebral disc of cervical region with osteophyte of cervical vertebra Procedures CONSULT TO [facility] OFFICE/OUTPATIENT [facility] 60-74 MINUTES Glenroy Syed, ASSISTANT FINANCE DIRECTOR.PACKING AND FINAL ASSEMBLY SUPERVISOR [id number] [place] [id number] Referral ID Status Reason Start Date Expiration Date Visits Requested Visits Authorized [id number] Authorized PCP Requested Referral 10/15/2022 10/15/2023 1 1 Specialty Diagnoses / Procedures Referred By Contac t Referred To Contact Ophthalmology Diagnoses Ocular migraine Procedures CONSULT TO OPHTHALMOLOGY OFFICE/OUTPATIENT [facility] 60-74 MINUTES Len Shea, ASSISTANT FINANCE DIRECTOR.PACKING AND FINAL ASSEMBLY SUPERVISOR [id number] [place] [address] Josefina Grimes MD [address] [facility] [place] [address] Referral ID Status Reason Start Date Expiration Date Visits Requested Visits Authorized [id number] Authorized PCP Requested Referral 08/20/2022 08/20/2023 1 1 Specialty Diagnoses / Procedures Referred By Contac t Referred To Contact Cardiology Diagnoses Dizziness Palpitations Procedures CONSULT TO CARDIOLOGY OFFICE/OUTPATIENT [facility] 60-74 MINUTES Glenroy Syed, ASSISTANT FINANCE DIRECTOR.PACKING AND FINAL ASSEMBLY SUPERVISOR [address] [place] [address] Referral ID Status Reason Start Date Expiration Date Visits Requested Visits Authorized [id number] Authorized PCP Requested Referral 2 07/07/2023 1 1 Specialty Diagnoses / Procedures Referred By Contac t Referred To Contact MR IMAGING Diagnoses Dizziness Vision changes Procedures MRI BRAIN WO/W IVCON MRI BRAIN BRAIN STEM W/O W/CONTRAST MATERIAL Glenroy Syed, ASSISTANT FINANCE DIRECTOR.PACKING AND FINAL ASSEMBLY SUPERVISOR [address] [place] [address] Mr Imaging Referral ID Status Reason Start Date Expiration Date Visits Requested Visits Authorized [id number] Authorized Auto-Generat ed Referral 2 08/21/2022 1 1 Specialty Diagnoses / Procedures Referred By Contac t Referred To Contact Ophthalmology Diagnoses Vision changes Procedures CONSULT TO OPHTHALMOLOGY OFFICE/OUTPATIENT [facility] 60-74 MINUTES Glenroy Syed, ASSISTANT FINANCE DIRECTOR.PACKING AND FINAL ASSEMBLY SUPERVISOR [address] [place] [address] Josefina Grimes MD [address] [facility] [place] [address] Referral ID Status Reason Start Date Expiration Date Visits Requested Visits Authorized [id number] Authorized PCP Requested Referral 2 07/07/2023 1 1 Specialty Diagnoses / Procedures Referred By Contac t Referred To Contact [facility] Diagnoses Palpitations Procedures ECHO ECHO TTHRC R-T 2D W/WOM-MODE COMPL SPEC&COLR D Glenroy Syed, ASSISTANT FINANCE DIRECTOR.PACKING AND FINAL ASSEMBLY SUPERVISOR [address] [id number] [facility] [place] [address] Referral ID Status Reason Start Date Expiration Date Visits Requested Visits Authorized [id number] Authorized Auto-Generat ed Referral 2 07/07/2023 1 1 Additional Source Comments INFORMATION SOURCE (unrecogn ized section and content) DATE CREATED AUTHOR 11/24/2021 [facility] DATE CREATED AUTHOR AUTHOR'S ORGANIZ ATION 07/20/2022 [facility] DATE CREATED AUTHOR AUTHOR'S ORGANIZ ATION 09/06/2022 [facility] DATE CREATED AUTHOR AUTHOR'S ORGANIZ ATION 10/16/2022 [facility] DATE CREATED AUTHOR AUTHOR'S ORGANIZ ATION 10/26/2023 [facility]ical [facility] DATE CREATED AUTHOR AUTHOR'S ORGANIZ ATION 11/27/2024 [facility] DATE CREATED AUTHOR AUTHOR'S ORGANIZ ATION 03/22/2025 [facility] DATE CREATED AUTHOR AUTHOR'S ORGANIZ ATION 05/10/2025 [facility] Source Comments (unrecognize d section and content) In the event this informatio n is protected by the Federal Confidentiality of Alcohol and Drug Abuse Patient Records regulations: The Federal rules restrict any use of the information to criminally investigate or prosecute any alcohol or drug abuse patient.[facility] the event this information is protected by the Federal Confidentiality of Alcohol and Drug Abuse Patient Records regulations: The Federal rules restrict any use of the information to criminally investigate or prosecute any alcohol or drug abuse patient.[facility] the event this information is protected by the Federal Confidentiality of Alcohol and Drug Abuse Patient Records regulations: The Federal rules restrict any use of the information to criminally investigate or prosecute any alcohol or drug abuse patient.[facility] the event this information is protected by the Federal Confidentiality of Alcohol and Drug Abuse Patient Records regulations: The Federal rules restrict any use of the information to criminally investigate or prosecute any alcohol or drug abuse patient.[facility] the event this information is protected by the Federal Confidentiality of Alcohol and Drug Abuse Patient Records regulations: The Federal rules restrict any use of the information to criminally investigate or prosecute any alcohol or drug abuse patient.[facility] Hospital[facility] the event this information is protected by the Federal Confidentiality of Alcohol and Drug Abuse Patient Records regulations: The Federal rules restrict any use of the information to criminally investigate or prosecute any alcohol or drug abuse patient.[facility] HospitalIn the event this information is protected by the Federal Confidentiality of Alcohol and Drug Abuse Patient Records regulations: The Federal rules restrict any use of the information to criminally investigate or prosecute any alcohol or drug abuse patient.[facility] Hospital[facility] the event this information is protected by the Federal Confidentiality of Alcohol and Drug Abuse Patient Records regulations: The Federal rules restrict any use of the information to criminally investigate or prosecute any alcohol or drug abuse patient.[facility] Hospital[facility] the event this information is protected by the Federal Confidentiality of Alcohol and Drug Abuse Patient Records regulations: The Federal rules restrict any use of the information to criminally investigate or prosecute any alcohol or drug abuse patient.[facility] Hospital[facility] the event this information is protected by the Federal Confidentiality of Alcohol and Drug Abuse Patient Records regulations: The Federal rules restrict any use of the information to criminally investigate or prosecute any alcohol or drug abuse patient.[facility] Reason for Visit (unrecogniz ed section [...] NEW RS PT VESTIBULAR DIZZY Glenroy Syed APRN.PACKING AND FINAL ASSEMBLY SUPERVISOR [address] [id number] Carmen Johnson, PT [address] [place] [address] Referral ID Status Reason Start Date Expiration Date Visits Re quested Visits Authorized [id number] Closed 08/08/2021 08/07/2022 30 30 Reason Comments Physical Therapy Specialty Diagnoses / Procedures Referred By Contac t Referred To Contact PHYSICAL THERAPY Diagnoses Dizziness Procedures Physical Therapy Glenroy Syed APRN.PACKING AND FINAL ASSEMBLY SUPERVISOR [id number] [place], [place] [id number] [facility] [place] [facility] [address] [place] [address] Referral ID Status Reason Start Date Expiration Date V isits Requested Visits Authorized [id number] Pending Review 08/12/2022 11/10/2022 1 1 Reason Comments Establish Care Palpitations Dizziness Specialty Diagnoses / Procedures Referred By Contac t Referred To Contact Cardiology Diagnoses Dizziness Palpitations Procedures CONSULT TO CARDIOLOGY OFFICE/OUTPATIENT NEW HIGH MDM 60-74 MINUTES Glenroy Syed APRN.PACKING AND FINAL ASSEMBLY SUPERVISOR [address] [id number] Referral ID Status Reason Start Date Expiration Date V isits Requested Visits Authorized [id number] Closed PCP Requested Referral 07/07/2022 07/07/2023 1 1 Reason Comments Radiology MRI Reason Onset Date Comments neuro referral 10/02/2024 Care Teams (unrecognized sec tion and content) Hydropress Operator Relationship Specialty Start Date End Date Mert Lama MD [address], [facility] Referring Family Medicine 06/10/22 Hydropress Operator Relationship Specialty Start Date End Date Mert Lama MD [address], [facility] Referring Family Medicine 06/10/22 Hydropress Operator Relationship Specialty Start Date End Date Mert Lama MD [address], [facility] Referring Family Medicine 06/10/22 Hydropress Operator Relationship Specialty Start Date End Date Mert Lama MD [address], [facility] Referring Family Medicine 06/10/22 Hydropress Operator Relationship Specialty Start Date End Date Mert Lama MD [address], [facility] Referring Family Medicine 06/10/22 Hydropress Operator Relationship Specialty Start Date End Date Mert Lama MD [address], [facility] Referring Family Medicine 06/10/22 Hydropress Operator Relationship Specialty Start Date End Date Mert Lama MD [address], [facility] Referring Family Medicine 06/10/22 Hydropress Operator Relationship Specialty Start Date End Date Mert Lama MD [address], [facility] Referring Family Medicine 06/10/22 Hydropress Operator Relationship Specialty Start Date End Date [...] BE BASED ON THE PRIMARY CLINICAL RECORDS. [employer] provides no warranty or guarantee of the accuracy or completeness of information in this document.
--- NOTE | 2025-05-22 08:05 | P.CN_ITS ---
Consult Note: HPI Data of Consult Patient: known to practice within the last 3 years Consult date: 04/11/25 Requesting Physician: Deepika Alicia NP Primary Care Provider: YE RODRIGUEZ Consult Narrative Reason for consult: neck pain Narrative: Jeanette Vasquez a pleasant 44 year old female presents for evaluation and ashley gement of chronic neck pain secondary to ddd and cervical spondylosis. Pt has failed to benefit from > 6 weeks of PT and provider guided HEP, heat, ice, tylenol, and NSAIDs. currently utilizing tizanidine 4mg BID PRN pain/spasms. recently underwent right and left C4-5 C5-6 facet RFA with >50% improvement ongoing. noting chronic diffuse pain throughout spine, has failed tylenol motrin flexeril hydrocodone and mobic in the past. since last visit she has found moderate relief to duloxetine 30mg HS, initially did have fatigue nausea dizziness for a few days but that has resolved. she is interested in increasing further. Pain today 0/10 increasing at times to >5/10 diffuse aching cc:: CC: Deepika Alicia NP Review of Systems ROS Musculoskeletal Denies: back pain, neck pain or joint pain PFSH [facility] Medical History (Updated 04/11/25 @ 08:09 by Deepika Alicia NP) Arthritis ?M19.90 - Unspecified osteoarthritis, unspecified site (ICD-10) Anemia ?D64.9 - Anemia, unspecified (ICD-10) Acid reflux ?K21.9 - Gastro-esophageal reflux disease without esophagitis (ICD-10) Kidney stone ?N20.0 - Calculus of kidney (ICD-10) Irregular heart beat ?I49.9 - Cardiac arrhythmia, unspecified (ICD-10) Surgical History History of cardiac radiofrequency ablation ?Z98.890 - Other specified postprocedural states (ICD-10) History of ankle surgery ?Z98.890 - Other specified postprocedural states (ICD-10) History of hysterectomy ?Z90.710 - Acquired absence of both cervix and uterus (ICD-10) Hx of cholecystectomy ?Z90.49 - Acquired absence of other specified parts of digestive tract (ICD- 10) Meds Home Medications and Allergies Home Medications ?Medication ?Instructions ?Recorded ?Confirmed ?Type metoprolol tartrate 50 mg tablet 50 mg PO BID 12/30/23 03/11/25 History tizanidine 4 mg capsule (Zanaflex) 4 mg PO Q8H PRN mus abhishek spasticity 12/30/23 03/11/25 Rx #20 caps flecainide 100 mg tablet 100 mg PO Q12H 02/18/2511/30 History duloxetine 30 mg capsule,delayed 30 mg PO .qhs #30 cap s 04/11/25 Rx release Allergies Allergy/AdvReac Type Severity Reaction Status Date / Time No Known Drug Allergies Allergy Verified 03/11/25 06:52 Exam Constitutional Documenting provider has reviewed patient's vital signs: yes Common normals: no apparent distress, oriented x3, healthy appearing, alert and well nourished General appearance: cooperative HENMT Common normals: normocephalic, hearing grossly normal bilaterally and moist oral mucous membranes Head and scalp: normocephalic Eye Common normals: PERRL Pupil: PERRL Neck & C-Spine Common normals: full ROM General: normal visual inspection Cervical spine: cervical ROM normal and pain with cervical ROM with lateral flexion to the left; no cervical spine tenderness Other: negative spurlings strength 5/5 in BUE sensation intact BUE Chest Common normals: inspection of chest normal Respiratory Common normals: normal respiratory effort, no retractions and no use of accessory muscles Back & Pelvis Thoracic spine/upper back: pain with ROM and thoracic spinal tenderness Lumbar spine/lower back: pain with ROM and lumbar spinal tenderness Sacroiliac joints: SI joint(s) abnormal Other: tenderness over left PSIS strength 5/5 in BLE Neuro Common normals: oriented x3 Sensorium/orientation: alert Psych Common normals: mental status grossly normal, thought process normal, c ooperative, affect normal, speech normal and activity/motor behavior normal Speech: normal speech Thought process: normal thought process Results Additional Findings Additional findings: If on a controlled substance or opioids, I have checked an [place]AR[place] report on this patient and there are no aberrancies noted in the prescribing history.??If on a controlled substance or opioid a drug screen was completed and reviewed within the last year, and if there has not been a drug screen completed we ordered one today to monitor higher risk, state monitored pain medication use. As part of providing excellent, safe, comprehensive care, the following was completed at our patient's visit: 1. A medication reconciliation and review to ensure accurate knowledge of current/active medications, including asking our patients to inform us about any gvjy-lti-efgptpi medications or herbal remedies/nutritional supplements/alternative remedies. 2. A review to specifically ensure our patients have had annual screening for screening for depression, screening for tobacco use, and screening for unhealthy alcohol use. For concerning screenings had a discussion with the patient, provided patient education, and recommended follow-up with primary care provider when appropriate. If patient noted with a risk of falling, they received education on strength, gait, and balance training to prevent future risk of falling. Portions of this note may have been carried over from the previous visit and updated as appropriate. Please note this office utilizes paper charting in addition to the electronic medical record. A list of current medications, vitals, and PMH is available there as the clinical staff outside of myself do not have access to [facility] charting during the clinic day operations. As part of providing quality comprehensive care the current medications, vitals, and PMH were reviewed in the paper chart. Assessment and Plan Assessment and Plan (1) Chronic pain syndrome: (2) Cervical spondylosis: (3) Lumbar spondylosis: (4) Myofascial pain: (5) Sacroiliitis: Plan The patient has had over 3 months of moderate to severe neck, middle back, low back pain with functional impairment and inadequate response to conservative care including NSAIDS (unless there are contraindication such as concurrent blood thinners), multiple oral or topical pain medications, and home exercise program/physical therapy.? Patient has completed >6 weeks of guided home exercise program and/or formal physical therapy program without relief of their symptoms.? I have reviewed the imaging of the cervical spine and no red flags were identified.? The imaging reveals radiographic findings consistent with cervical ddd and spondylosis The Oswestry Disability Index was completed, and the patient scored a 24%.? The patient noted the following:?? moderate pain with activity, lifting, sitting, sleep, social life, and travel increase duloxetine 30mg BID for chronic pain syndrome and diffuse joint pain continue tizanidine 4mg TID prn pain/spasms continue HEP as tolerated f/u 8 weeks to assess response to medication regimen
== END 2025-05-22 07:40 | disposition home or self-care (01) ==
PROVIDERS: PCP Nurse Practitioner; Visit Provider Nurse Practitioner
DX: G89.4 Chronic pain syndrome (principal); M47.812 Spondylosis without myelopathy or radiculopathy, cervical region; M47.816 Spondylosis without myelopathy or radiculopathy, lumbar region; M79.18 Myalgia, other site; M46.1 Sacroiliitis, not elsewhere classified
CPT/HCPCS: G0463

== ENCOUNTER 2025-07-24 07:40 | Outpatient (OUT) | payer BC, SELFPAY ==
--- OUTSIDE RECORDS SUMMARY | 2025-07-24 07:43 | XMS_ITS | Patient Health Record ---
Author Organization [facility] [place] Address [address] [place] [address] Care Team Providers Care Oil Pumper Name Role Phone Álvaro Rodriguez MD Primary Care Provider Unavailabl e Allergies No Known Allergies Reason For Referral No Information Medications Medication SIG (Take, Route, Frequency, Duration) Notes Start Date End Date Status hydrOXYzine Pamoate 25 MG 1 capsule at bedtime a s needed Orally Once a day ActiveMetoprolol Tartrate 50 MG1 tablet with food Orally Twice a dayActive Flovent HFA 110 MCG/ACT2 puffs Inhalation Twice a day; Duration: 30 daysRinse after use02/02/2023ctiveCholecalciferol 25 MCG (1000 UT)1 capsule Orally Once a dayActive Immunizations Vaccine Route Administration Date Status Comme [...] Status W/U Status Risk Notes Problem Palpitations (22307514) Palpitations (R00 .2) ActiveconfirmedProblemShortness of breath (650410330)Shortness of breath (R06.02)ActiveconfirmedProblemMorbid obesity (727262032)Morbid obesity (E66.01) ActiveconfirmedProblemObstructive sleep apnea (47735148)Obstructive sleep apnea (G47.33)ActiveconfirmedProblemAtrial tachycardia (806065914)Atrial tachycardia (I47.1)ActiveconfirmedProblemAbnormal immunology finding (238506498)Elevated antinuclear antibody (ESEQUIEL) level (R76.8)ActiveconfirmedProblemExposure to second hand tobacco smoke (event) (71151683989271175)Secondhand smoke exposure (Z77.22) Activeconfirmed Plan Of Treatment No Information Insurance Providers Payer Name Payer Address Payer Phone Subscriber Number Group Number Insured Name Patient Relationship to Insured Coverage Start Date Coverage End Date [employer] [address] [place] [address] [id number] Jeanette Vasquez Self - patient is the insured 3 Medical (General) History Medical History History ICD Code Obstructive sleep apnea G47.33 Atrial tachycardia I47.1 Elevated antinuclear antibody (ESEQUIEL) edgar ulloa R76.8 Palpitations R00.2 Morbid obesity E66.01 Secondhand smoke exposure Z77.22 Surgical History Surgery Date(Month/Year) left knee arthroscopy cholecystectomyhysterectomy, elchwombm17/18/2018left ankle wbtowoi0706/01/2019 Implantable loop rycfnlam43/12/2022
--- OUTSIDE RECORDS SUMMARY | 2025-07-24 07:43 | XMS_ITS | Clinical Summary ---
Author Organization [facility] Address [address] [place] [address] Care Team Providers Care Men'S Custom Hair Piece Consultant Name Role Phone Brock Cristiane FINE ARTIST-C Primary Care Provider [phone] Allergies No known active allergies Medications MedicationSigDispense QuantityRefillsLast FilledStart DateEnd DateStatus traZODone (Desyrel) 50 mg tablet Take 50 mg by mouth at bedtime.Active ergocalciferol (Vitamin D-2) 1.25 MG (15555 Units) capsule Take 1 capsule by mouth every 7 (seven) days.09/17/2024tive metoprolol tartrate (Lopressor) 50 mg tablet Indications:SVT (supraventricular tachycardia)Take 1 tablet (50 mg) by mouth two times daily. 180 tablet 5Active flecainide (Tambocor) 100 mg tablet Indications:SVT (supraventricular tachycardia)Take 1 tablet (100 mg) by mouth two times daily. 180 tablet /6Active Active Problems ProblemNoted DateDiagnosed DateAtrial poyovpxawtz33/10/2025ontact with and (suspected) exposure to environmental tobacco smoke (acute) (chronic)01/15/2025 Degeneration of intervertebral disc of lumbosacral hsugjn6701/15/2025Epigastric pain01/15/2025Facial /10/2025Facial gxbmtirnd61/10/2025Morbid obesity 01/15/2025Other specified abnormal immunological findings in serum01/15/2025 Otitis media01/15/2025Shortness of efydfp2001/15/2025Spondylosis without myelopathy or radiculopathy, lumbar krxoqt0101/15/2025Tunnel uztwkg1901/15/2025 Npbkldj4712/15/2022 Overview (12/15/2022): unspecified, chronic Vrpglh0112/15/2022isorder of autonomic nervous ygvyyg9112/15/20227500Rjvmdrxi40/10/2023 Wddoisgh99/10/2023Mixed incontinence urge and ltehak7912/15/2022Migraines 12/15/2022History of renal fwfkhyz2312/15/2022History of recurrent urinary tract gipbwmoie10/10/6950Aooscupxacct78/10/2023ain of foot12/15/2022lantar fasciitis 12/15/2022aroxysmal vxdpqmomqie52/10/2023Rectal klhwjhwjoq33/10/2023Sinus zhdiqdfntvr78/10/2023Sleep kysruhmd64/10/2023Weight gain12/15/2022Implantable loop recorder tdspals7412/15/2022hronic fcruckz05/17/3704Zcjnoizal09/17/2023 Obesity, morbid, BMI 40.0-49.9008/24/2022OSA (obstructive sleep apnea)08/24/2022 SVT (supraventricular tachycardia)08/24/2022Vitamin D hpfsonrhqn78/17/2023 Autonomic acuqkxbyqcd81/24/2021hronic pain qzcgjmsa60/24/2021hronic bilateral low back pain with bilateral wgwcejak73/24/2021Visual aura02/25/2021ensory ftwpkoaiczu53/21/2021Nonintractable nhpbrejv85/21/7432Iyxzyxunqeac74/16/2021 Inappropriate sinus fhnqowydtxa02/16/2021 Encounters DateTypeDepartmentCare OtkjMjemtunelrt80/22/2025 10:45 AM EDTAncillary Procedure [facility] [address] [place] [address] Awareness of lzwkucxhny64/20/2025Orders Only [facility] [address] [place] [address] hCace Celeste MD from Last 3 Months Social History Tobacco UseTypesPacks/DayYears UsedDateSmoking Tobacco: NeverSmokeless Tobacco: Never Tobacco Cessation:Counseling Given: Not Answered [place] Safety & EnvironmentAnswerDate RecordedFear of Current or Ex-PartnerNot on file09/29/2023Emotionally AbusedNot on file09/29/2023hysically AbusedNot on file09/29/2023Sexually AbusedNot on file09/29/2023hysically or Sexually Abused Not on file09/29/2023CommentsUnknownSex and Gender InformationValueDate RecordedSex Assigned at OiioiLxpnee87/24/2025 8:59 PM EDTLegal SexFemale 02/04/2022 12:30 AM EDTGender EsaezvewMzkext23/24/2025 8:59 PM EDTSexual OrientationHeterosexual or Qqoxfyky72/24/2025 8:59 PM EDT Last Filed Vital Signs Vital SignReadingTime TakenCommentsBlood Yawmkypv401/9506 3:47 PM EDT Wmpfv5214 3:47 PM EDTTemperature--Respiratory Rate--Oxygen Zlqvqqpmhq55% 01/15/2025 3:47 PM EDTInhaled Oxygen Concentration--Cjzcan993 kg (252 lb) 01/15/2025 3:47 PM GQYGggnae206.1 cm (5' 5 )01/15/2025 3:47 PM EDTBody Mass Index41.9301/15/2025 3:47 PM EDT Plan of Treatment Health MaintenanceDue DateLast DoneCommentsDepression Cvckupjdt52/24/1995 Varicella Vaccines (1 of 2 - 13+ 2-dose series)11/30/1995Pap Smear11/30/2003 Adult Ucrwzdx1611/29/2004HPV Vaccines (1 - 3-dose SCDM series)2009Cervical Cancer Asmczbhal20/24/2013HPV/Ysqwig1811/29/20126261Zzmlmztuq44/24/2023COVID-19 Vaccine (2024- season)502/10/2020, 09/10/2020, 08/12/2020, Additional history existsInfluenza Vaccine (#1)Zoster Vaccines (1 of 2)2032HIB VaccinesAged Out07/27/1990No longer eligible based on patient's age to complete this topicIPV SfigkndlRurqigyfs29/23/1994, 02/28/1991, 06/29/1989, Additional history existsHepatitis B VaccinesCompleted 05/27/1999, 12/25/1998, 11/25/1998Meningococcal B VaccineAged OutNo longer eligible based on patient's age to complete this topicMeningococcal VaccineAged OutNo longer eligible based on patient's age to complete this topicPneumococcal Vaccine: Pediatrics (0 to 5 Years) and At-Risk Patients (6 to 64 Years)Aged Out No longer eligible based on patient's age to complete this topicRotavirus VaccinesAged OutNo longer eligible based on patient's age to complete this topic Medical Devices ImplantedTypeAreaManufacturerDevice IdentifierShelf Expiration DateModel / Serial / [id number] Biomonitor Iiim [id number] Implanted:11/17/2021 (Quantity not on file)Implantable Loop [id number] BIOMONITOR IIIM / [id number] / Procedures Procedure NamePriorityDate/TimeAssociated DiagnosisCommentsCARDIAC DEVICE CHECK CHECK - XLCJZCFgvkekk56/24/2025 2:29 PM EDT Awareness of heartbeats CARDIAC DEVICE CHECK - REMOTE - LOOP RECORDER (ILR)Ipnteyz6004/27/2025 12:00 AM EDTfrom Last 3 Months Results * CARDIAC DEVICE CHECK - REMOTE - LOOP RECORDER (ILR) (05/01/2025 2:29 PM EDT) Specimen (Source)Anatomical Location / LateralityCollection Method / Volume Collection TimeReceived Time Narrative Authorizing ProviderResult TypeResult StatusVishal Zarate MDCV IMPLANTABLE CARDIAC DEVICE PROCEDURESFinal ResultPerforming OrganizationAddressCity/State/ZIP Code Phone Number CPACS * Cardiac device check - Remote loop recorder (ILR) (04/27/2025 12:00 AM EDT) Anatomical RegionLateralityModalityOtherSpecimen (Source)Anatomical Location / LateralityCollection Method / VolumeCollection TimeReceived Time04/27/2025 Narrative Authorizing ProviderResult TypeResult StatusChace Celeste MDCV IMPLANTABLE CARDIAC DEVICE PROCEDURESFinal Result from Last 3 Months Insurance Care Teams Team MemberRelationshipSpecialtyStart DateEnd Date Cristiane Gutiérrez FNP-C [address] [place] [address] PCP - GeneralNurse Oikpdzlmynif17/15/25
--- OUTSIDE RECORDS SUMMARY | 2025-07-24 07:43 | XMS_ITS | Clinical Summary ---
Author Organization [facility] Address [id number] [address] [place] [address] Care Team Providers Care Resort Host Name Role Phone Fina Lama MD Primary Care Provider [phone] Allergies No known active allergies Medications MedicationSigDispense QuantityRefillsLast FilledStart DateEnd DateStatus metoprolol tartrate (LOPRESSOR) 25 mg tablet Take 25 mg by mouth 2 (two) times a day. TABLET BIDActive QUEtiapine (SEROquel) 25 mg tablet Take 25 mg by mouth nightly.Active estradioL (ESTRACE) 0.01 % (0.1 mg/gram) vaginal cream Insert 2 g into the vagina daily. 2 NIGHTS WEEKLYActive topiramate (TOPAMAX) 25 mg tablet Indications:Sensory disturbance,Nonintractable episodic headache, unspecified headache type,Chronic pain syndromeTake 1 tablet (25 mg total) by mouth 2 (two) times a day. 60 tablet ctive Additional Information Patient not taking.Reported on 05/01/2021 DULoxetine (CYMBALTA) 30 mg capsule Indications:Sensory disturbance,Nonintractable headache, unspecified chronicity pattern, unspecified headache type,Chronic pain syndromeTake 1 capsule (30 mg total) by mouth nightly. 30 capsule ctive Active Problems ProblemNoted DateDiagnosed DateChronic pain idnhhidx83/24/2021utonomic qddjgiaafpd82/24/2021hronic bilateral low back pain with bilateral sciatica 05/01/2021Nonintractable kcxnirrf38/21/2021Visual aura02/25/2021ensory vnijubidbnf92/21/2021 Family History Medical HistoryRelationNameCommentsArthritisFatherCancerFatherlukemiaHeart diseaseFatherDiabetesMaternal GrandfatherAlcohol abuseMotherCancerMotherovarian RelationNameStatusCommentsFatherAliveMaternal GrandfatherMotherDeceased Social History Tobacco UseTypesPacks/DayYears UsedDateSmoking Tobacco: NeverSmokeless Tobacco: NeverAlcohol UseStandard Drinks/WeekCommentsYes0 (1 standard drink = 0.6 oz pure alcohol)socialPHQ-2AnswerDate RecordedTotal Quayh1041/21/2021hildcareAnswerDate HzuoneuzJfmspyewhXhxidte41/12/2019EmploymentAnswerDate RecordedEmploymentUnknown 01/17/2019CommentsUnknownSex and Gender InformationValueDate RecordedSex Assigned at BirthNot on fileLegal YknZvouoj91/06/2015 11:24 AM EDTGender IdentityNot on fileSexual OrientationNot on file Last Filed Vital Signs Vital SignReadingTime TakenCommentsBlood Ygmsmwnn776/7009 9:04 AM EDT Hyuls938105/01/2021 9:04 AM EDTTemperature--Respiratory Rate--Oxygen Saturation-- Inhaled Oxygen Concentration--Fmcldv404.2 kg (229 lb 12.8 oz)05/01/2021 9:04 AM HTVDqnjvw253.6 cm (5' 6 )05/01/2021 9:04 AM EDTBody Mass Index37.0905/01/2021 9:04 AM EDT Plan of Treatment Health MaintenanceDue DateLast DoneCommentsDepression Csjpijbhl45/24/1995Tobacco Tdyfsogfu53/24/1995Adult BMI Llplqnszt86/24/2001Pap Smear11/30/2003DTaP,Tdap and Td Vaccines (6 - Tdap), 02/28/1991, 08/31/1989, Additional history existsCOVID-19 Vaccine (2024- season)502/10/2020, 08/12/2020Influenza Pkathfl7504/08/2025 Medical Devices Not on file Care Teams Team MemberRelationshipSpecialtyStart DateEnd Date Lama, Fina E, MD PCP - GeneralFamily Medicine02/25/21
--- OUTSIDE RECORDS SUMMARY | 2025-07-24 07:43 | XMS_ITS | Patient Health Record ---
Author Organization [facility] Address [address] [place] [address] Care Team Providers Care Steam Box Hand Name Role Phone Álvaro Rodriguez Primary Care Provider Unavailabl e Allergies No Known Allergies Reason For Referral No Information Social History Tobacco Use: Social History Observation Description Date Details (start date - stop date) Never Smoker NA - NA AUDIT-C (Standard) Question Answer Notes Did you have a drink containing alcohol in the p ast year? No Bpsmgt3AuuknawysdkrzfWfsiyjwlDnkiazy Control (Standard) Question Answer Notes Tobacco use: Nonsmoker Problems Problem Type SNOMED Code ICD Code Onset Dates Problem Status W/U Status Risk Notes Problem Lumbosacral spondylo sis without myelopathy (83562627) Spondylosis without myelopathy or radiculopathy, lumbar region (M47.816) ActiveconfirmedProblemDegeneration of lumbosacral intervertebral disc (84642497) Other intervertebral disc degeneration, lumbosacral region (M51.37)Active confirmed Plan Of Treatment No Information Insurance Providers Payer Name Payer Address Payer Phone Subscriber Number Group Number Insured Name Patient Relationship to Insured Coverage Start Date Coverage End Date [employer] [address] [place] [address] [id number] Self - patient is the insured Medical (General) History Medical History History ICD Code Abnormal Heart Rhythm Gastric RefluxKidney stonesOsteoarthritisAnemiaOvarian CystsAnxiety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
--- OUTSIDE RECORDS SUMMARY | 2025-07-24 07:43 | XMS_ITS | Clinical Summary ---
Author Organization [facility] Address [address] [place] [address] Care Team Providers Care Shrimp Pond Laborer Name Role Phone Álvaro Rodriguez MD Primary Care Provider [phone] Allergies No known active allergies Medications MedicationSigDispense QuantityRefillsLast FilledStart DateEnd DateStatus metoprolol tartrate (Lopressor) 50 MG tablet Take 50 mg by mouth10/22/2022ctive cyanocobalamin (Vitamin B-12) 1000 MCG tablet Take 1 tablet by mouth in the morning.10/22/2022ctive Family History Medical HistoryRelationNameCommentsGraves' diseaseBrotherEpilepsyDaughter 1 oldestArthritisFatherHypertensionFatherKidney diseaseFatherCKD stage 3Leukemia FatherCLLAlcohol dependenceMotherDrug dependenceMotherMental illnessMother Ovarian cancerMotherSupraventricular tachycardiaSonRelationNameStatusComments Usnexhgp6Vldalvnq 1oldestAliveDaughter 3XschsZcnwrfFvppbNfynpiIhjjchjpJaxuccf0 SonAlive Social History Tobacco UseTypesPacks/DayYears UsedDateSmoking Tobacco: Never Tobacco Cessation:Counseling Given: Not Answered Alcohol UseStandard Drinks/WeekCommentsYes0 (1 standard drink = 0.6 oz pure alcohol)CommentsNoSex and Gender InformationValueDate RecordedSex Assigned at BirthNot on fileLegal ZjfDjjvjf22/15/2023 8:13 PM EDTGender Identity Not on fileSexual OrientationNot on file Last Filed Vital Signs Vital SignReadingTime TakenCommentsBlood Zythbekh124/8003/ 8:45 AM EDT Pulse--Temperature--Respiratory Rate--Oxygen Saturation--Inhaled Oxygen Concentration--Rydcjt194 kg (260 lb 6.4 oz)10/25/2023 8:45 AM NSIAhswry827.8 cm (5' 4.5 )04/14/2022 12:00 PM EDTBody Mass Index44.01004/14/2022 12:00 PM EDT Plan of Treatment Not on file Insurance Care Teams Team MemberRelationshipSpecialtyStart DateEnd Date Álvaro Rodriguez MD PCP - GeneralFamily Medicine08/25/23
--- OUTSIDE RECORDS SUMMARY | 2025-07-24 07:43 | XMS_ITS | Clinical Summary ---
Author Organization [facility] Address [address] [place] [id number] Care Team Providers Care Tub Mender Name Role Phone Fina Lama MD Unavailable [phone] Allergies No known active allergies Medications MedicationSigDispense QuantityRefillsLast FilledStart DateEnd DateStatus aspirin 325 mg tablet Take 325 mg by mouth once daily.Active cholecalciferol (VITAMIN D) 1,000 unit tab tablet Take 1,000 Units by mouth once daily.Active dilTIAZem CD (CARDIZEM CD) 180 mg 24 hr capsule Take 1 capsule by mouth once daily. 90 capsule ctive Active Problems ProblemNoted DateDiagnosed HrlwXpolnigne60/17/3846Yxhrfryakfhf57/17/2023Obesity, morbid, BMI 40.0-49.9008/24/2022OSA (obstructive sleep apnea)08/24/2022hronic dibcguo0608/24/2022SVT (supraventricular tachycardia)08/24/2022Vitamin D gmaalrqqos96/17/2023 Social History Tobacco UseTypesPacks/DayYears UsedDateSmoking Tobacco: NeverSmokeless Tobacco: Never Tobacco Cessation:Counseling Given: Not Answered Alcohol UseStandard Drinks/WeekCommentsYes0 (1 standard drink = 0.6 oz pure alcohol)occasionally 1-2 times a months 2-3 drinksArea Deprivation IndexAnswer Date RecordedNational Score (1-100), lower number is lower xxya448208/22/2022State Score (1-10), lower number is lower riskNot on file3Data from: https://www.neighborhoodatlas.medicine.[facility].edu/. Last address used for [address]/22/2022CommentsNoSex and Gender InformationValueDate RecordedSex Assigned at BirthNot on fileLegal SexFemale 06/10/2022 2:27 PM EDTGender IdentityNot on fileSexual OrientationNot on file Last Filed Vital Signs Vital SignReadingTime TakenCommentsBlood Vpaalhjc416/7308/24/2022 1:44 PM EST Yorgm592908/24/2022 1:44 PM ESTTemperature--Respiratory Rate--Oxygen Ndnbvawcll97% 08/24/2022 1:44 PM ESTRAInhaled Oxygen Concentration--Ycsdxu068.9 kg (249 lb) 08/24/2022 1:44 PM RTCIciujv745.6 cm (5' 4 )08/24/2022 1:44 PM ESTBody Mass Index42.7408/24/2022 1:44 PM EST Plan of Treatment Health MaintenanceDue DateLast DoneCommentsAnxiety Onvbcponp79/24/2001Depression Afqiirtyr26/24/2001HIV Tnyymsawc38/24/2001Hepatitis C Pqlixuzua25/24/2001 DTaP,Tdap,Td Vaccine (1 - Tdap)2001Hepatitis B Vaccine (1 of 3 - 19+ 3- dose series)2001Cervical Cancer Ymhewyxwm17/24/2004HPV Vaccine (1 - 3-dose SCDM series)2009Mammogram Igzdbxlod75/24/2023Covid-19 Vaccine (3 - 2024- season)502/10/2020, 08/12/2020Influenza Vaccine (#1)2025 05/08/2022 Insurance Care Teams Team MemberRelationshipSpecialtyStart DateEnd Date Fina Lama MD [address] [place] [address] [facility]06/10/22
--- NOTE | 2025-07-24 07:59 | P.CN_ITS ---
Consult Note: HPI Data of Consult Patient: known to practice within the last 3 years Consult date: 07/24/25 Requesting Physician: Deepika Alicia NP Primary Care Provider: YE RODRIGUEZ Consult Narrative Reason for consult: neck pain Narrative: Jeanette Vasquez a pleasant 44 year old female presents for evaluation and ashley gement of chronic neck pain secondary to ddd and cervical spondylosis. Pt has failed to benefit from > 6 weeks of PT and provider guided HEP, heat, ice, tylenol, and NSAIDs. currently utilizing tizanidine 4mg BID PRN pain/spasms as well as duloxetine 30mg BID. Historically she has failed tylenol motrin flexeril hydrocodone and mobic in the past. Pain today 4/10 on average 1-2/10 in neck and low back with signiciant relief from duloxetine 30mg BID cc:: CC: Deepika Alicia NP [facility] Medical History (Updated 07/24/25 @ 08:03 by Deepika Alicia NP) Arthritis ?M19.90 - Unspecified osteoarthritis, unspecified site (ICD-10) Anemia ?D64.9 - Anemia, unspecified (ICD-10) Acid reflux ?K21.9 - Gastro-esophageal reflux disease without esophagitis (ICD-10) Kidney stone ?N20.0 - Calculus of kidney (ICD-10) Irregular heart beat ?I49.9 - Cardiac arrhythmia, unspecified (ICD-10) Surgical History History of cardiac radiofrequency ablation ?Z98.890 - Other specified postprocedural states (ICD-10) History of ankle surgery ?Z98.890 - Other specified postprocedural states (ICD-10) History of hysterectomy ?Z90.710 - Acquired absence of both cervix and uterus (ICD-10) Hx of cholecystectomy ?Z90.49 - Acquired absence of other specified parts of digestive tract (ICD- 10) Meds Home Medications and Allergies Home Medications ?Medication ?Instructions ?Recorded ?Confirmed ?Type metoprolol tartrate 50 mg tablet 50 mg PO BID 12/30/23 03/11/25 History tizanidine 4 mg capsule (Zanaflex) 4 mg PO Q8H PRN mus abhishek spasticity 12/30/23 03/11/25 Rx #20 caps flecainide 100 mg tablet 100 mg PO Q12H 02/18/25 08/0 11/30 History duloxetine 30 mg capsule,delayed 30 mg PO BID 05/22/25 05/22/25 History release duloxetine 30 mg capsule,delayed 30 mg PO BID #60 caps 07/09/25 Rx release Allergies Allergy/AdvReac Type Severity Reaction Status Date / Time No Known Drug Allergies Allergy Verified 03/11/25 06:52 Exam Narrative Exam Narrative: pt notes frequent right sided headache originating posterior neck wrapping around right side of head. intermittent numbness/pain to tongue Constitutional Documenting provider has reviewed patient's vital signs: yes Common normals: no apparent distress, oriented x3 and alert General appearance: cooperative HENMT Common normals: hearing grossly normal bilaterally and moist oral mucous membranes Eye Common normals: PERRL Pupil: PERRL Neck & C-Spine Cervical spine: cervical ROM abnormal, pain with cervical ROM and cervical spine tenderness (right > left) Other: moderate edema and palpable mass around 1/2 in diameter to right occipital, mass tender to touch and mobile. unable to adequately assess border mild pain with facet loading moderation myofascial pain to right splenius capitus Chest Common normals: inspection of chest normal Respiratory Common normals: normal respiratory effort, no retractions and no use of accessory muscles Neuro Common normals: oriented x3 Sensorium/orientation: alert Psych Common normals: mental status grossly normal, thought process normal, cooperative, affect normal, speech normal and activity/motor behavior normal Speech: normal speech Thought process: normal thought process Results Additional Findings Additional findings: If on a controlled substance or opioids, I have checked an [place] report on this patient and there are no aberrancies noted in the prescribing history.??If on a controlled substance or opioid a drug screen was completed and reviewed within the last year, and if there has not been a drug screen completed we ordered one today to monitor higher risk, state monitored pain medication use. As part of providing excellent, safe, comprehensive care, the following was completed at our patient's visit: 1. A medication reconciliation and review to ensure accurate knowledge of current/active medications, including asking our patients to inform us about any oels-mxj-kuqvfgt medications or herbal remedies/nutritional supplements/alternative remedies. 2. A review to specifically ensure our patients have had annual screening for screening for depression, screening for tobacco use, and screening for unhealthy alcohol use. For concerning screenings had a discussion with the patient, provided patient education, and recommended follow-up with primary care provider when appropriate. If patient noted with a risk of falling, they received education on strength, gait, and balance training to prevent future risk of falling. Portions of this note may have been carried over from the previous visit and updated as appropriate. Please note this office utilizes paper charting in addition to the electronic medical record. A list of current medications, vitals, and PMH is available there as the clinical staff outside of myself do not have access to dINK charting during the clinic day operations. As part of providing quality comprehensive care the current medications, vitals, and PMH were reviewed in the paper chart. Assessment and Plan Assessment and Plan (1) Chronic pain syndrome: (2) Cervical spondylosis: (3) Myofascial pain: (4) Chronic headaches: Plan 44 year old female with chronic neck and low back pain > 6 months unresponsive to > 6 weeks of PT/HEP, heat, ice, tylenol, NSAIDs. Pt notes overall significant pain control with duloxetine 30mg bid and tizanidine 4mg bid prn pain/spasms. Pt is looking for a new PCP, and historically was recommended to be evaluated by neurology for her chronic headaches. with worsening right sided headaches as well as edema to right occipital i recommend pt f/u with PCP/urgent care and we will refer to neurology for evaluation of chronic right sided headaches. f/u 3 months, sooner if needed
== END 2025-07-24 07:41 | disposition home or self-care (01) ==
LOC: PM 07:40
PROVIDERS: PCP Nurse Practitioner; Visit Provider Nurse Practitioner
DX: G89.4 Chronic pain syndrome (principal); M47.812 Spondylosis without myelopathy or radiculopathy, cervical region; M79.18 Myalgia, other site; R51.9 Headache, unspecified
CPT/HCPCS: G0463